=== PATIENT | male | born 1965 | race Caucasian/White ===

== ENCOUNTER 2019-04-23 11:47 | Emergency (ER) | payer SELFPAY ==
[~2019-04-23] VITALS: Ht 177.8 cm; Wt 115.2 kg
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
--- NOTE | 2019-04-23 12:07 | ED Back Pain ---
General Stated Complaint: LEG/GROIN PAIN Source of Information: Patient Exam Limitations: No Limitations (CARITO SOLORZANO) History of Present Illness Date Seen by Provider: Apr 23, 2019 Time Seen by Provider: 12:00 Initial Comments Patient presents with his with chief complaint of one and a half hours of 9.5 out of 10 pain in his left flank radiating down into his left lower quadrant abdomen/pelvis and left groin and left testicle. He's never had kidney stones before. He has no pressure to urinate, dysuria earlier today. Bowels are moving normally. No history of abdominal surgeries. Doesn't history of bleeding gastric ulcers. Has a history of bipolar on Depakote and Lyrica. Takes ibuprofen 800 mg twice a day for chronic back pain and had his last dose at 0 700 today. No nausea vomiting fevers chills. (CARITO SOLORZANO) Allergies and Home Medications Allergies Coded Allergies: No Known Drug Allergies (Unverified , 04/23/19) Patient Home Medication List Home Medication List Reviewed: Yes (CARITO SOLORZANO) Review of Systems Constitutional: No chills, No diaphoresis, No fever EENTM: No ear discharge, No ear pain Respiratory: No cough, No short of breath Cardiovascular: No chest pain, No edema Gastrointestinal: see HPI, abdominal pain; No constipation, No diarrhea, No nausea Genitourinary: No discharge, No dysuria (CARITO SOLORZANO) Past Qrjzlrm-Pcqbry-Yyczvj Hx Patient Social History Alcohol Use: Denies Use Recreational Drug Use: No (CARITO SOLORZANO) Physical Exam Vital Signs Vital Signs - First Documented 04/23/19 11:53 Temp 97.0 Pulse 71 Resp 22 B/P (MAP) 151/93 (112) Pulse Ox 98 O2 Delivery Room Air (COBY NASCIMENTO MD) Vital Signs Capillary Refill : (CARITO SOLORZANO) Height, Weight, BMI Height: '" Weight: lbs. oz. kg; BMI Method: General Appearance: WD/WN, Moderate Distress HEENT: PERRL/EOMI, Normal ENT Inspection, Pharynx Normal, Moist Mucous Membranes Neck: Full Range of Motion, Non Tender Cardiovascular: Regular Rate, Rhythm, No Edema, Normal Peripheral Pulses Respiratory: Chest Non Tender, Lungs Clear, Normal Breath Sounds, No Accessory Muscle Use, No Respiratory Distress Gastrointestinal: Normal Bowel Sounds, Non Tender, Soft Genital/Rectal: Normal Genital Exam, Other (marginal palpable herniation in that left inguinal canal but nontender. The vas deferens on the left side are tender to palpation. There is no testicular swelling, erythema.) Extremity: Normal Capillary Refill, Normal Inspection Neurologic/Psychiatric: Alert, Oriented x3, No Motor/Sensory Deficits Skin: Normal Color, Warm/Dry (RASHAD,CARITO J) Back: Muscle Spasm, Other (tenderness at the left SI joint. Muscle spasm noted to left lateral lumbar region. Point tenderness reproduces pain.) (COBY NASCIMENTO MD) Progress/Results/Core Measures Results/Orders Lab Results Laboratory Tests Test 04/23/19 12:00 04/23/19 12:50 04/23/19 14:28 Range/Units White Blood Count 9.1 4.3-11.0 10^3/uL Red Blood Count 5.10 4.35-5.85 10^6/uL Hemoglobin 15.0 13.3-17.7 G/DL Hematocrit 45 40-54 % Mean Corpuscular Volume 87 80-99 FL Mean Corpuscular Hemoglobin 29 25-34 PG Mean Corpuscular Hemoglobin Concent 34 32-36 G/DL Red Cell Distribution Width 13.5 10.0-14.5 % Platelet Count 176 130-400 10^3/uL Mean Platelet Volume 9.0 7.4-10.4 FL Neutrophils (%) (Auto) 65 42-75 % Lymphocytes (%) (Auto) 20 12-44 % Monocytes (%) (Auto) 10 0-12 % Eosinophils (%) (Auto) 4 0-10 % Basophils (%) (Auto) 0 0-10 % Neutrophils # (Auto) 5.9 1.8-7.8 X 10^3 Lymphocytes # (Auto) 1.8 1.0-4.0 X 10^3 Monocytes # (Auto) 0.9 0.0-1.0 X 10^3 Eosinophils # (Auto) 0.4 H 0.0-0.3 10^3/uL Basophils # (Auto) 0.0 0.0-0.1 10^3/uL Sodium Level 137 135-145 MMOL/L Potassium Level 4.6 3.6-5.0 MMOL/L Chloride Level 95 L 98-107 MMOL/L Carbon Dioxide Level 28 21-32 MMOL/L Anion Gap 14 5-14 MMOL/L Blood Urea Nitrogen 7 7-18 MG/DL Creatinine 0.85 0.60-1.30 MG/DL Estimat Glomerular Filtration Rate > 60 BUN/Creatinine Ratio 8 Glucose Level 102 70-105 MG/DL Calcium Level 9.2 8.5-10.1 MG/DL Corrected Calcium 8.5-10.1 MG/DL Total Bilirubin 0.5 0.1-1.0 MG/DL Aspartate Amino Transf (AST/SGOT) 16 5-34 U/L Alanine Aminotransferase (ALT/SGPT) 17 0-55 U/L Alkaline Phosphatase 78 40-136 U/L Total Protein 7.2 6.4-8.2 GM/DL Albumin 4.6 H 3.2-4.5 GM/DL Urine Color YELLOW Urine Clarity CLEAR Urine pH 8.0 5-9 Urine Specific [place] 1.010 L 1.016-1.022 Urine Protein 1+ H NEGATIVE Urine Glucose (UA) 2+ H NEGATIVE Urine Ketones NEGATIVE NEGATIVE Urine Nitrite NEGATIVE NEGATIVE Urine Bilirubin NEGATIVE NEGATIVE Urine Urobilinogen 0.2 NORMAL MG/DL Urine Leukocyte Esterase NEGATIVE NEGATIVE Urine RBC (Auto) NEGATIVE NEGATIVE Urine RBC NONE /HPF Urine WBC 0-2 /HPF Urine Squamous Epithelial Cells 0-2 /HPF Urine Crystals NONE /LPF Urine Bacteria NEGATIVE /HPF Urine Casts NONE /LPF Urine Mucus NONE /LPF Urine Culture Indicated NO Glucometer 95 70-110 MG/DL (COBY NASCIMENTO MD) My Orders Orders - COBY NASCIMENTO MD Scrotum (Testicle) [id number] (04/23/19 16:27) Prednisone Tablet (Deltasone Tablet) (04/23/19 17:30) Hydrocodone/Apap 7.5/325 Tab (Lortab 7. (04/23/19 17:30) (COBY NASCIMENTO MD) Medications Given in ED Current Medications Medications Dose Ordered Sig/Niyah Route Start Time Stop Time Status Last Admin Dose Admin Fentanyl Citrate 50 mcg ONCE ONCE IVP 04/23/19 13:00 04/23/19 13:01 DC 04/23/19 13:02 50 MCG Ketorolac Tromethamine 30 mg ONCE ONCE IVP 04/23/19 12:15 04/23/19 12:16 DC 04/23/19 12:22 30 MG (COBY NASCIMENTO MD) Vital Signs/I&O 04/23/19 04/23/19 04/23/19 04/23/19 11:53 12:22 13:02 15:05 Temp 97.0 97.0 97.0 97.0 Pulse 71 68 Resp 22 20 B/P (MAP) 151/93 (112) 153/79 (103) Pulse Ox 98 93 O2 Delivery Room Air Room Air 04/23/19 16:22 Temp 98.0 Pulse 70 Resp 18 B/P (MAP) 149/99 (116) Pulse Ox 92 (COBY NASCIMENTO MD) Progress Progress Note #1: Time: 12:54 Progress Note Concern for kidney stone versus other. We'll obtain some labs, urinalysis and get a CT scan of the abdomen kidney stone protocol. If we don't see a kidney stone we'll consider getting an ultrasound of the testicle to rule out a torsion etc. 30 mg Toradol did give him significant pain relief from 9.5 out of 10 down to 7 out of 10. He would still like something for pain. No nausea. Fentanyl 50 g IV. Progress Note #2: Time: 14:20 Progress Note The patient's pain is much improved however it is still there and he still does not have a diagnosis. Orchitis versus a possible torsion. We don't have ultrasound available so were going to plan to do an ER to ER transfer to [place] to have ultrasound rule out torsion. (CARITO SOLORZANO) Progress Note : Progress Note 1700: I have seen and evaluated the patient. Ultrasound of the scrotum ordered and does not show any torsion or epididymitis. On reevaluation of the patient, he is point tender over left SI joint. Given negative CT scan for kidney stones and otherwise negative evaluation, this may be lumbar radiculopathy and we will treat as such. Prednisone 60 mg by mouth and hydrocodone 7.5/325 one tab by mouth given. Patient has no saddle anesthesia and he is not incontinent of urine or stool. No weakness noted to the lower extremities and otherwise no red flags for low back problems. 1741: Discharged home with return precautions. Patient verbalize understanding instructions and agreement with plan. (COBY NASCIMENTO MD) Diagnostic Imaging Diagonstic Imaging: CT (kidney stone protocol noncontrast) Plain Films/CT/US/NM/MRI: abdomen, pelvis Reviewed: Reviewed by Me (CARITO SOLORZANO) Diagonstic Imaging: Ultrasound Plain Films/CT/US/NM/MRI: other Comments [facility], [place] NAME: LLUVIA SCHAEFER REC#: [id number] PT STATUS: REG ER : 1965 PHYSICIAN: COBY NASCIMENTO MD ADMIT DATE: 04/23/19/ER Draft Date of Exam:04/23/19 US SCROTUM (Testicle) [id number] INDICATION: Left testicle, leg and groin pain. TECHNIQUE: Real-time grayscale sonographic imaging and color vascular evaluation of both testicles was performed. CORRELATION STUDY: None FINDINGS: RIGHT testicle measures 3.4 x 1.8 x 2.8 cm. LEFT testicle measures 4.0 x 3.5 x 3.3 cm. The testicles appear normal in echogenicity. No focal testicular mass demonstrated. There is vascular flow to the testicles. Small right epididymal cyst present largest at 3 mm maximum size. Small bilateral hydroceles. No definitive evidence for underlying inguinal hernia. IMPRESSION: 1. Unremarkable scrotal ultrasound examination. Small bilateral hydroceles. Dictated on workstation # [id number] Dict: 04/23/19 1710 Trans: 04/23/19 1712 DO [id number] Interpreted by: ELIZABETH GONZALEZ DO Electronically signed by: (COBY NASCIMENTO MD) Departure Impression Primary Impression: Left testicular pain Additional Impression: Acute left lumbar radiculopathy Disposition: 01 HOME, SELF-CARE Condition: Stable Transfer Time Spoke to Accepting Phy: 14:30 Transfer Progress Notes Called left a message to speak with the ER physician at 1420. Dr. Nascimento accepts the patient for ER to ER transfer for ultrasound scrotum. Transfer Facility: [facility] [place] [facility] [place], [place] Method of Transfer: Private Vehicle (CARITO SOLORZANO) Departure-Patient Inst. Decision time for Depature: 17:43 (COBY NASCIMENTO MD) Referrals: NO,LOCAL PHYSICIAN (PCP/Family) Primary Care Physician Patient Instructions: Lumbar Muscle Strain (DC), Radiculopathy (DC) Add. Discharge Instructions: Your evaluation thus far did not show any significant abnormalities. We do believe that you may have radiating pain from the low back. Take medications as directed. Minimize use of narcotic pain medicine. You may take acetaminophen/Tylenol 1000 mg every 6 hours as needed for pain if you're not taking the prescribed pain medicine. Do not take both at the same time as they both have acetaminophen in them. Do not exceed 4000 mg of acetaminophen and 24 period. Continue ibuprofen 800 mg every 8 hours as needed for pain. You may use [id number] Icy Hot with lidocaine patches, Aspercreme with lidocaine patches, Salonpas with lidocaine patches for similar items to area of concern per package directions. Return for worse pain, weakness, difficulty with walking or going to the bathroom, numbness between your legs or other concerns as needed. Follow-up with your doctor this week or early next week for recheck and further evaluation if not improving and she may need further referral to back specialist and/or other evaluation. Scripts Prednisone (Prednisone) 20 Mg Tab 40 MG PO DAILY, #12 TAB 0 Refills Prov: COBY NASCIMENTO MD 04/23/19 Hydrocodone Bit/Acetaminophen (Hydrocodone/Acetaminophen 5/325mg Tablet) 1 Tab Tab 1 EACH PO Q6H PRN for PAIN-MODERATE MDD 10 for 3 Days, #12 TAB 0 Refills Prov: COBY NASCIMENTO MD 04/23/19 CARITO SOLORZANO Apr 23, 2019 12:07 COBY NASCIMENTO MD Apr 23, 2019 17:47
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
--- OUTSIDE RECORDS SUMMARY | 2019-04-23 12:10 | XMS REPORT ---
Author Author KUN ESCALANTE Organization [facility] Address [address] [place] [address] Care Team Providers Care Slag Worker Name Role Phone KUN ESCALANTE Unavailable PROBLEMS Type Condition ICD9-CM Code [id number] Code Onset Dates Condition Status SNOMED Code Problem Muscle pain M79.1 Active 69183718 Problem Lumbago with sciatica, right side M54.41 Active 404450982 Problem Neuropathy G62.9 Active 696306918 Problem Type 2 diabetes mellitus with complication E11.8 Active 24224507 Problem Hypertriglyceridemia E78.1 Active 043983775 Problem Bipolar 1 disorder F31.9 Active [id number] ALLERGIES No Information ENCOUNTERS Encounter Location Date Diagnosis [facility] [id number] [place] [address] May, [facility] [id number] [place] [address] May, Radiculopathy of arm M54.10 [facility] [id number] [place] [address] May, [facility] [id number] [place] [address] May, [facility] [id number] [place] [phone] May, Radiculopathy of arm M54.10 [facility] [id number] [place] [address] Apr, Radiculopathy of arm M54.10 [facility] [address] [address] March, Radiculopathy of arm M54.10 [facility] [id number] [address] March, Radiculopathy of arm M54.10 [facility] [id number] [place] [address] March, Radiculopathy of arm M54.10 [facility] [id number] [place] [address] March, Type 2 diabetes mellitus with complication E11.8 ; Radiculopathy of arm M54.10 and Muscle pain M79.1 [facility] [id number] [place] [address] Feb, Muscle pain M79.1 [facility] [id number] [place] [address] Jan, Type 2 diabetes mellitus with complication E11.8 [facility] [id number] [place] [address] Jan, [facility] [id number] [place] [address] Dec, Muscle pain M79.1 [facility] [id number] [place] [address] Nov, Muscle pain M79.1 and Acute pain of right shoulder M25.511 [facility] [id number] [place] [address] Nov, [facility] [id number] [place] [address] Nov, [facility] [id number] [place] [address] Nov, Type 2 diabetes mellitus with complication E11.8 [facility] [id number] [place] [address] Nov, Impingement syndrome of left shoulder M75.42 and Impingement syndrome of right shoulder M75.41 [address] [place] [address] [address] Oct, Type 2 diabetes mellitus with complication E11.8 ; Acute pain of right shoulder M25.511 ; Abscess of finger of right hand L02.511 and Umbilical hernia without obstruction and without gangrene K42.9 [facility] [id number] [place] [address] Oct, [facility] [id number] [place] [address] Oct, Mucoid otitis media, unspecified chronicity, unspecified laterality H65.90 and Abscess of finger of right hand L02.511 [place] [id number] [place] [address] Oct, [place] [id number] [place] [phone] Sep, [place] [id number] [place] [address] Aug, [place] [id number] [place] [address] 14 Jul, 2017 Sprain of right acromioclavicular ligament, initial encounter S43.51XA ; Impingement syndrome of left shoulder M75.42 and Impingement syndrome of right shoulder M75.41 [place] [id number] [place] [address] 14 Jul, 2017 Type 2 diabetes mellitus with complication E11.8 [place] [id number] [place] [phone] Jun, [place] [id number] [place] [address] Jun, Type 2 diabetes mellitus with complication E11.8 ; Lumbago with sciatica, right side M54.41 ; 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 and Pain in left shoulder M25.512 [facility] [address] [address] May, [facility] [id number] [place] [address] May, [facility] [id number] [place] [address] Apr, Lumbago with sciatica, right side M54.41 and Neck pain on left side M54.2 [facility] [id number] [place] [address] Apr, [facility] [id number] [place] [address] Apr, [facility] [id number] [place] [phone] March, [facility] [id number] [place] [address] March, [facility] [id number] [place] [address] Feb, Acute pain of right shoulder M25.511 [facility] [id number] [place] [address] Feb, [facility] [address] [address] Feb, [facility] [id number] [place] [address] Feb, Type 2 diabetes mellitus with complication E11.8 ; Neuropathy G62.9 and Acute pain of right shoulder M25.511 [facility] [id number] [address] Dec, Type 2 diabetes mellitus with complication E11.8 [facility] [address] [address] Nov, [facility] [id number] [place] [phone] Oct, 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 [place] [id number] [place] [address] Oct, Type 2 diabetes mellitus with complication E11.8 [place] [id number] [place] [address] Sep, Type 2 diabetes mellitus with complication E11.8 ; Acute pain of right shoulder M25.511 and Prostate cancer screening Z12.5 [place] [id number] [place] [address] Sep, [place] [id number] [place] [address] Jun, [place] [id number] [place] [address] Jun, Muscle tension headache G44.209 and Bruxism F45.8 [place] [id number] [place] [address] May, Type 2 diabetes mellitus with complication E11.8 ; Erectile dysfunction, unspecified erectile dysfunction type N52.9 and Neuropathy G62.9 [place] [id number] [place] [address] Feb, [place] [id number] [place] [phone] Feb, Type 2 diabetes mellitus with complication E11.8 [facility] [address] [place] [address] Dec, [place] [id number] [place] [phone] Dec, Type 2 diabetes mellitus with complication E11.8 [place] [id number] [place] [phone] Nov, Nausea and vomiting, unspecified intactability, vomiting of unspecified type R11.2 [facility] [id number] [place] [phone] Oct, Neuropathy G62.9 and Type 2 diabetes mellitus with complication E11.8 [facility] [id number] [place] [phone] Sep, [facility] [id number] [place] [phone] Sep, [facility] [id number] [place] [address] Sep, Diabetes E11.9 [facility] [id number] [place] [address] Sep, [facility] [id number] [place] [phone] Jul, [facility] [id number] [place] [address] Jun, [facility] [id number] [place] [id number] Jun, Secondary diabetes mellitus with neurological manifestations, not stated as uncontrolled, or unspecified 249.60 ; Other chronic pain 338.29 and Puncture wound 879.8 [facility] [address] [place] [phone] May, [facility] [id number] [place] [phone] Apr, [facility] [id number] [place] [phone] March, [facility] [id number] [place] [phone] Feb, [facility] [id number] [place] [phone] Feb, [facility] [id number] [place] [phone] Jan, [facility] [place] [facility] [address] [id number] [place] [address] Jan, [facility] [place] [facility] [address] [id number] [place] [address] Jan, [facility] [place] [facility] [address] [id number] [place] [address] Jan, [facility] [place] [facility] [address] [id number] [place] [address] Jan, [facility] [place] [facility] [address] [id number] [place] [address] Jan, [facility] [place] [facility] [address] [id number] [place] [address] Jan, [facility] [place] [facility] [address] [id number] [place] [address] Jan, [facility] [place] [facility] [address] [id number] [place] [address] Dec, [facility] [place] [facility] [address] [id number] [place] [address] Dec, [facility] [place] [facility] [address] [id number] [place] [address] Nov, [facility] [place] [facility] [address] [id number] [place] [address] Nov, [facility] [place] [facility] [address] [id number] [place] [address] Nov, [facility] [place] [facility] [address] [id number] [place] [address] Nov, [facility] [place] [facility] [address] [id number] [place] [address] Nov, [facility] [place] [facility] [address] [id number] [place] [address] Nov, [facility] [place] [facility] [address] [id number] [address] Oct, [facility] [place] [facility] [address] [id number] [place] [address] Oct, [facility] [place] [facility] [address] [id number] [place] [address] Oct, [facility] [place] [facility] [address] [id number] [place] [address] Oct, [facility] [place] [facility] [address] [id number] [place] [address] Oct, [facility] [place] [facility] [address] [id number] [place] [address] Oct, [facility] [place] [facility] [address] [id number] [place] [address] Oct, [facility] [place] [facility] [address] [id number] [place] [address] Oct, [facility] [place] [facility] [address] [id number] [place] [address] Oct, [facility] [place] [facility] [address] [id number] [place] [address] Sep, [facility] [place] [facility] [address] [id number] [place] [address] Sep, [facility] [place] [facility] [address] [id number] [place] [address] Sep, [facility] [place] [facility] [address] [id number] [place] [address] Sep, [facility] [place] [facility] [address] [id number] [place] [address] Sep, [facility] [place] [facility] [address] [id number] [place] [address] Sep, [facility] [place] [facility] [address] [id number] [place] [address] Sep, [facility] [place] [facility] [address] [id number] [place] [address] Aug, [facility] [place] [facility] [address] [id number] [place] [address] Aug, [facility] [place] [facility] [address] [id number] [place] [address] 16 Aug, 2014 [facility] [place] [facility] [address] [id number] [place] [address] 16 Aug, 2014 [facility] [place] [facility] [address] [id number] [place] [address] 14 Aug, 2014 [facility] [place] [facility] [address] [id number] [place] [address] 14 Aug, 2014 [facility] [place] [facility] [address] [id number] [place] [address] 26 Sep, 2013 [facility] [place] [facility] [address] [id number] [place] [address] 25 Sep, 2013 [facility] [place] [facility] [address] [id number] [place] [address] 25 Sep, 2013 [facility] [place] [facility] [address] [id number] [place] [address] 25 Sep, 2013 [facility] [place] [facility] [address] [id number] [place] [address] 25 Sep, 2013 [facility] [place] [facility] [address] [id number] [place] [address] 19 Sep, 2013 [facility] [place] [facility] [address] [id number] [place] [address] 16 Sep, 2013 [facility] [place] [facility] [address] [id number] [place] [address] 16 Sep, 2013 [facility] [place] [facility] [address] [id number] [place] [address] 08 Sep, 2013 [facility] [place] [facility] [address] [id number] [place] [address] Jul, [facility] [place] [facility] [address] [id number] [place] [address] Jun, [facility] [place] [facility] [address] [id number] [place] [address] Jun, [facility] [place] [facility] [address] [id number] [place] [address] Jun, [facility] [place] [facility] [address] [id number] [place] [address] Jun, [facility] [place] [facility] [address] [id number] [place] [address] Jun, [facility] [place] [facility] [address] [id number] [place] [address] Jun, [facility] [place] [facility] [address] [id number] [place] [address] Jun, [facility] [place] [facility] [address] [id number] [place] [address] Jun, [facility] [place] [facility] [address] [id number] [place] [address] May, [facility] [place] [facility] [address] [id number] [place] [address] May, [facility] [place] [facility] [address] [id number] [place] [address] May, [facility] [place] [facility] [address] [id number] [place] [address] May, [facility] [place] [facility] [address] [id number] [place] [address] May, [facility] [place] [facility] [address] [id number] [place] [address] May, [facility] [place] [facility] [address] [id number] [place] [address] May, [facility] [place] [facility] [address] [id number] [place] [address] May, [facility] [place] [facility] [address] [id number] [place] [address] May, [facility] [place] [facility] [address] [id number] [place] [address] May, [facility] [place] [facility] [address] [id number] [place] [address] May, [facility] [place] [facility] [address] [id number] [place] [address] May, [facility] [place] [facility] [address] [id number] [place] [address] May, [facility] [place] [facility] [address] [id number] [place] [address] Apr, [facility] [place] [facility] [address] [id number] [place] [address] Apr, [facility] [place] [facility] [address] [id number] [place] [address] Apr, [facility] [place] [facility] [address] [id number] [place] [address] Apr, [facility] [place] [facility] [address] [id number] [place] [address] Apr, [facility] [place] [facility] [address] [id number] [place] [address] Apr, [facility] [place] [facility] [address] [id number] [place] [address] March, [facility] [place] [facility] [address] [id number] [place] [address] March, [facility] [place] [facility] [address] [id number] [place] [address] March, [facility] [place] [facility] [address] [id number] [place] [address] Feb, [facility] [place] [facility] [address] [id number] [place] [address] 24 Feb, 2014 [facility] [place] [facility] [address] [id number] [place] [address] Feb, [facility] [place] [facility] [address] [id number] [place] [address] Feb, [facility] [place] [facility] [address] [id number] [place] [address] Feb, [facility] [place] [facility] [address] [id number] [place] [address] Feb, [facility] [place] [facility] [address] [id number] [place] [address] Feb, [facility] [place] [facility] [address] [id number] [place] [address] Feb, [facility] [place] [facility] [address] [id number] [place] [address] Feb, [facility] [place] [facility] [address] [id number] [place] [address] Feb, [facility] [place] [facility] [address] [id number] [place] [address] Feb, [facility] [place] [facility] [address] [id number] [place] [address] Jan, [facility] [place] [facility] [address] [id number] [place] [address] Jan, [facility] [place] [facility] [address] [id number] [place] [address] Jan, [facility] [place] [facility] [address] [id number] [place] [address] Jan, [facility] [place] [facility] [address] [id number] [place] [address] Jan, [facility] [place] [facility] [address] [id number] [place] [address] Jan, [facility] [address] [id number] [place] [address] Dec, [facility] [place] [facility] [address] [id number] [place] [address] Dec, [facility] [place] [facility] [address] [id number] [place] [address] Dec, [facility] [place] [facility] [address] [id number] [place] [address] Dec, [facility] [place] [facility] [address] [id number] [place] [address] Nov, [facility] [place] [facility] [address] [id number] [place] [address] Nov, [facility] [place] [facility] [address] [id number] [place] [address] Nov, [facility] [place] [facility] [address] [id number] [place] [address] Nov, [facility] [place] [facility] [address] [id number] [place] [address] Nov, [facility] [place] [facility] [address] [id number] [place] [address] Nov, [facility] [place] [facility] [address] [id number] [place] [address] Oct, [facility] [place] [facility] [address] [id number] [place] [address] Oct, [facility] [place] [facility] [address] [id number] [place] [address] Oct, [facility] [place] [facility] [address] [id number] [place] [address] Oct, [facility] [place] [facility] [address] [id number] [place] [address] Oct, [facility] [place] [facility] [address] [id number] [place] [address] Oct, [facility] [place] [facility] [address] [id number] [place] [address] Sep, [facility] [place] [facility] [address] [id number] [place] [address] Sep, [facility] [place] [facility] [address] [id number] [place] [address] Sep, [facility] [place] [facility] [address] [id number] [place] [address] Sep, [facility] [place] [facility] [address] [id number] [place] [address] Sep, [facility] [place] [facility] [address] [id number] [place] [address] Sep, [facility] [place] [facility] [address] [id number] [place] [address] Aug, [facility] [place] [facility] [address] [id number] [place] [address] Aug, [facility] [place] [facility] [address] [id number] [place] [address] Aug, [facility] [place] [facility] [address] [id number] [place] [address] Aug, [facility] [place] [facility] [address] [id number] [place] [address] Jul, [facility] [place] [facility] [address] [id number] [place] [address] Jul, [facility] [place] [facility] [address] [id number] [place] [address] Jun, [facility] [place] [facility] [address] [id number] [place] [address] Jun, [facility] [place] [facility] [address] [id number] [place] [address] May, [facility] [address] [id number] [place] [address] May, [facility] [place] [facility] [address] [id number] [place] [address] May, [facility] [place] [facility] [address] [id number] [place] [address] May, [facility] [place] [facility] [address] [id number] [place] [address] May, [facility] [address] [id number] [place] [address] May, [facility] [place] [facility] [address] [id number] [place] [address] Apr, [facility] [place] [facility] [address] [id number] [place] [address] Apr, [facility] [place] [facility] [address] [id number] [place] [address] Apr, [facility] [place] [facility] [address] [id number] [place] [address] Apr, [facility] [place] [facility] [address] [id number] [place] [address] March, [facility] [place] [facility] [address] [id number] [place] [address] March, [facility] [place] [facility] [address] [id number] [place] [address] March, [facility] [place] [facility] [address] [id number] [place] [address] Feb, [facility] [place] [facility] [address] [id number] [place] [address] Feb, [facility] [place] [facility] [address] [id number] [place] [address] Jan, [facility] [place] [facility] [address] [id number] [place] [address] Dec, [facility] [address] [id number] [place] [address] Dec, [facility] [address] [id number] [place] [address] Dec, [facility] [address] [id number] [place] [address] Dec, [facility] [address] [id number] [place] [address] Dec, [facility] [address] [id number] [place] [address] Nov, [facility] [address] [id number] [place] [address] Nov, [facility] [address] [facility] [id number] [place] [address] Nov, [facility] [address] [id number] [place] [address] Nov, [facility] [address] [id number] [place] [address] Nov, [facility] [address] [facility] [id number] [place] [address] Oct, [facility] [address] [id number] [place] [address] Oct, [facility] [address] [id number] [place] [address] Oct, [facility] [address] [id number] [place] [address] Oct, [facility] [address] [id number] [place] [address] Sep, [facility] [address] [id number] [place] [address] Sep, [facility] [place] [facility] [address] [id number] [place] [address] Sep, [facility] [place] [facility] [address] [id number] [place] [address] Sep, [facility] [place] [facility] [address] [facility] [id number] [place] [address] Sep, [facility] [place] [facility] [address] [id number] [place] [address] Sep, [facility] [place] [facility] [address] [id number] [place] [address] Sep, [facility] [place] [facility] [address] [id number] [place] [address] Sep, [facility] [place] [facility] [address] [facility] [id number] [place] [address] Sep, [facility] [place] [facility] [address] [facility] [id number] [place] [address] Sep, [facility] [place] [facility] [address] [facility] [id number] [place] [address] Aug, [facility] [place] [facility] [address] [facility] [id number] [place] [address] Aug, [facility] [place] [facility] [address] [facility] [id number] [place] [address] Aug, [facility] [place] [facility] [address] [facility] [id number] [place] [address] Aug, [facility] [place] [facility] [address] [facility] [id number] [place] [address] Aug, [facility] [place] [facility] [address] [facility] [id number] [place] [address] Aug, [facility] [place] [facility] [address] [facility] [id number] [place] [address] Jul, [facility] [place] [facility] [address] [facility] [id number] [place] [address] Jun, [facility] [address] [id number] [place] [address] Apr, [facility] [place] [facility] [address] [id number] [place] [address] Apr, [facility] [place] [facility] [address] [id number] [place] [address] Apr, [facility] [place] [facility] [address] [id number] [place] [address] Apr, [facility] [place] [facility] [address] [id number] [place] [address] March, [facility] [place] [facility] [address] [id number] [place] [address] March, [facility] [address] [id number] [place] [address] March, [facility] [place] [facility] [address] [id number] [place] [address] March, [facility] [place] [facility] [address] [id number] [place] [address] March, [facility] [place] [facility] [address] [facility] [id number] [place] [address] Feb, [facility] [place] [facility] [address] [id number] [place] [address] Feb, [facility] [place] [facility] [address] [id number] [place] [address] Feb, [facility] [place] [facility] [address] [id number] [place] [address] Feb, [facility] [place] [facility] [address] [id number] [place] [address] Jan, [facility] [place] [facility] [address] [facility] [id number] [place] [address] Jan, [facility] [place] [facility] [id number] [address] 05 Jan, 2012 [facility] [id number] [address] 28 Dec, 2011 [facility] [address] [facility] [id number] [place] [address] 15 Dec, 2011 [facility] [id number] [address] 14 Dec, 2011 [facility] [address] [facility] [id number] [place] [address] Dec, [facility] [id number] [place] [address], [place] [address] Dec, [facility] [id number] [place] [address] Nov, [facility] [id number] [place] [address] Nov, [facility] [id number] [place] [address] Nov, [facility] [id number] [place] [address] Oct, [facility] [id number] [place] [address] Oct, [facility] [id number] [address] Oct, [facility] [id number] [address] Sep, [facility] [id number] [address] 13 Jul, 2011 [facility] [address] [id number] [address] 16 Apr, 2011 IMMUNIZATIONS No Known Immunizations [...]
--- OUTSIDE RECORDS SUMMARY | 2019-04-23 12:10 | XMS REPORT ---
Author Author KUN ESCALANTE Organization [facility] Address [address] [place] [address] Care Team Providers Care Complaint Supervisor Name Role Phone KUN ESCALANTE Unavailable PROBLEMS Type Condition ICD9-CM Code EGL40-MV Code Onset Dates Condition Status SNOMED Code Problem Muscle pain M79.1 Active 43768011 Problem Lumbago with sciatica, right side M54.41 Active 479243914 Problem Neuropathy G62.9 Active 134934295 Problem Type 2 diabetes mellitus with complication E11.8 Active 15038130 Problem Hypertriglyceridemia E78.1 Active 945391248 Problem Bipolar 1 disorder F31.9 Active [id number] ALLERGIES No Information ENCOUNTERS Encounter Location Date Diagnosis [facility] [id number] [place] [address] May, [facility] [id number] [place] [address] May, Radiculopathy of arm M54.10 [facility] [id number] [place] [address] May, [facility] [id number] [place] [address] May, [facility] [id number] [place] [address] May, Radiculopathy of arm M54.10 [facility] [id number] [place] [address] Apr, Radiculopathy of arm M54.10 [facility] [address] [address] March, Radiculopathy of arm M54.10 [facility] [id number] [address] March, Radiculopathy of arm M54.10 [facility] [id number] [place] [address] March, Radiculopathy of arm M54.10 [facility] [id number] [place] [address] March, Type 2 diabetes mellitus with complication E11.8 ; Radiculopathy of arm M54.10 and Muscle pain M79.1 [facility] [id number] [place] [address] Feb, Muscle pain M79.1 [facility] [id number] [place] [address] Jan, Type 2 diabetes mellitus with complication E11.8 [facility] [id number] [place] [address] Jan, [facility] [id number] [place] [address] Dec, Muscle pain M79.1 [facility] [id number] [place] [address] Nov, Muscle pain M79.1 and Acute pain of right shoulder M25.511 [facility] [id number] [place] [address] Nov, [facility] [id number] [place] [address] Nov, [facility] [id number] [place] [address] Nov, Type 2 diabetes mellitus with complication E11.8 [facility] [id number] [place] [address] Nov, Impingement syndrome of left shoulder M75.42 and Impingement syndrome of right shoulder M75.41 [address] [address] Oct, Type 2 diabetes mellitus with complication E11.8 ; Acute pain of right shoulder M25.511 ; Abscess of finger of right hand L02.511 and Umbilical hernia without obstruction and without gangrene K42.9 [facility] [id number] [place] [address] Oct, [facility] [id number] [place] [address] Oct, Mucoid otitis media, unspecified chronicity, unspecified laterality H65.90 and Abscess of finger of right hand L02.511 [facility] [facility] [id number] [place] [address] Oct, [facility] [id number] [place] [address] Sep, [facility] [id number] [place] [address] Aug, [facility] [facility] [id number] [place] [address] 14 Jul, 2017 Sprain of right acromioclavicular ligament, initial encounter S43.51XA ; Impingement syndrome of left shoulder M75.42 and Impingement syndrome of right shoulder M75.41 [place] [id number] [place] [address] 14 Jul, 2017 Type 2 diabetes mellitus with complication E11.8 [facility] [facility] [id number] [place] [address] Jun, [facility] [facility] [id number] [place] [address] Jun, Type 2 diabetes mellitus with complication E11.8 ; Lumbago with sciatica, right side M54.41 ; 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 and Pain in left shoulder M25.512 [facility] [address] [address] May, [facility] [id number] [place] [address] May, [facility] [id number] [place] [address] Apr, Lumbago with sciatica, right side M54.41 and Neck pain on left side M54.2 [facility] [id number] [place] [address] Apr, [facility] [id number] [place] [address] Apr, [facility] [id number] [place] [address] March, [facility] [id number] [place] [address] March, [facility] [id number] [place] [address] Feb, Acute pain of right shoulder M25.511 [facility] [address] [place] [address] Feb, [facility] [address] [address] Feb, [facility] [id number] [place] [address] Feb, Type 2 diabetes mellitus with complication E11.8 ; Neuropathy G62.9 and Acute pain of right shoulder M25.511 [facility] [id number] [address] Dec, Type 2 diabetes mellitus with complication E11.8 [facility] [address] [address] Nov, [facility] [id number] [place] [address] Oct, 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 [place] [id number] [place] [address] Oct, Type 2 diabetes mellitus with complication E11.8 [place] [id number] [place] [address] Sep, Type 2 diabetes mellitus with complication E11.8 ; Acute pain of right shoulder M25.511 and Prostate cancer screening Z12.5 [place] [id number] [place] [address] Sep, [place] [id number] [place] [address] Jun, [facility] [facility] [id number] [place] [address] Jun, Muscle tension headache G44.209 and Bruxism F45.8 [place] [address] [place] [address] May, Type 2 diabetes mellitus with complication E11.8 ; Erectile dysfunction, unspecified erectile dysfunction type N52.9 and Neuropathy G62.9 [place] [address] [place] [address] Feb, [place] [address] [place] [address] Feb, Type 2 diabetes mellitus with complication E11.8 [facility] [address] [place] [address] Dec, [place] [id number] [place] [address] Dec, Type 2 diabetes mellitus with complication E11.8 [place] [address] [place] [address] Nov, Nausea and vomiting, unspecified intactability, vomiting of unspecified type R11.2 [facility] [address] [place] [address] Oct, Neuropathy G62.9 and Type 2 diabetes mellitus with complication E11.8 [facility] [id number] [place] [address] Sep, [facility] [id number] [place] [address] Sep, [facility] [id number] [place] [address] Sep, Diabetes E11.9 [facility] [id number] [place] [address] Sep, [facility] [id number] [place] [address] Jul, [facility] [id number] [place] [address] Jun, [facility] [id number] [place] [address] Jun, Secondary diabetes mellitus with neurological manifestations, not stated as uncontrolled, or unspecified 249.60 ; Other chronic pain 338.29 and Puncture wound 879.8 [facility] [address] [place] [address] May, [facility] [id number] [place] [address] Apr, [facility] [id number] [place] [address] March, [facility] [id number] [place] [address] Feb, [facility] [id number] [place] [address] Feb, [facility] [id number] [place] [address] Jan, [facility] [place] [facility] [address] [id number] [place] [address] Jan, [facility] [place] [facility] [address] [id number] [place] [address] Jan, [facility] [place] [facility] [address] [id number] [place] [address] Jan, [facility] [place] [facility] [address] [id number] [place] [address] Jan, [facility] [place] [facility] [address] [id number] [place] [address] Jan, [facility] [place] [facility] [address] [id number] [place] [address] Jan, [facility] [place] [facility] [address] [id number] [place] [address] Jan, [facility] [place] [facility] [address] [id number] [place] [address] Dec, [facility] [place] [facility] [address] [id number] [place] [address] Dec, [facility] [place] [facility] [address] [id number] [place] [address] Nov, [facility] [place] [facility] [address] [id number] [place] [address] Nov, [facility] [place] [facility] [address] [id number] [place] [address] Nov, [facility] [place] [facility] [address] [id number] [place] [address] Nov, [facility] [place] [facility] [address] [id number] [place] [address] Nov, [facility] [place] [facility] [address] [id number] [place] [address] Nov, [facility] [place] [facility] [address] [id number], [place] [address] Oct, [facility] [place] [facility] [address] [id number] [place] [address] Oct, [facility] [place] [facility] [address] [id number] [place] [address] Oct, [facility] [place] [facility] [address] [id number] [place] [address] Oct, [facility] [place] [facility] [address] [id number] [place] [address] Oct, [facility] [place] [facility] [address] [id number] [place] [address] Oct, [facility] [place] [facility] [address] [id number] [place] [address] Oct, [facility] [place] [facility] [address] [id number] [place] [address] Oct, [facility] [place] [facility] [address] [id number] [place] [address] Oct, [facility] [place] [facility] [address] [id number] [place] [address] Sep, [facility] [place] [facility] [address] [id number] [place] [address] Sep, [facility] [place] [facility] [address] [id number] [address] Sep, [facility] [place] [facility] [address] [id number], [place] [address] Sep, [facility] [place] [facility] [address] [id number], [place] [address] Sep, [facility] [place] [facility] [address] [id number] [place] [address] Sep, [facility] [place] [facility] [address] [id number] [place] [address] Sep, [facility] [place] [facility] [address] [id number] [place] [address] Aug, [facility] [place] [facility] [address] [id number] [place] [address] Aug, [facility] [place] [facility] [address] [id number] [place] [address] 16 Aug, 2014 [facility] [place] [facility] [address] [id number] [place] [address] 16 Aug, 2014 [facility] [place] [facility] [address] [id number] [place] [address] 14 Aug, 2014 [facility] [place] [facility] [address] [id number] [place] [address] 14 Aug, 2014 [facility] [place] [facility] [address] [id number] [place] [address] 26 Sep, 2013 [facility] [place] [facility] [address] [id number] [place] [address] 25 Sep, 2013 [facility] [place] [facility] [address] [id number] [place] [address] 25 Sep, 2013 [facility] [place] [facility] [address] [id number] [place] [address] 25 Sep, 2013 [facility] [place] [facility] [address] [id number] [place] [address] 25 Sep, 2013 [facility] [place] [facility] [address] [id number] [place] [address] 19 Sep, 2013 [facility] [place] [facility] [address] [id number] [place] [address] 16 Sep, 2013 [facility] [place] [facility] [address] [id number] [place] [address] 16 Sep, 2013 [facility] [place] [facility] [address] [id number] [place] [address] 08 Sep, 2013 [facility] [place] [facility] [address] [id number] [place] [address] Jul, [facility] [place] [facility] [address] [id number] [place] [address] Jun, [facility] [place] [facility] [address] [id number] [place] [address] Jun, [facility] [place] [facility] [address] [id number] [place] [address] Jun, [facility] [place] [facility] [address] [id number] [place] [address] Jun, [facility] [place] [facility] [address] [id number] [place] [address] Jun, [facility] [place] [facility] [address] [id number] [place] [address] Jun, [facility] [place] [facility] [address] [id number] [place] [address] Jun, [facility] [place] [facility] [address] [id number] [place] [address] Jun, [facility] [place] [facility] [address] [id number] [place] [address] May, [facility] [place] [facility] [address] [id number] [place] [address] May, [facility] [place] [facility] [address] [id number] [place] [address] May, [facility] [place] [facility] [address] [id number] [place] [address] May, [facility] [place] [facility] [address] [id number] [place] [address] May, [facility] [place] [facility] [address] [id number] [place] [address] May, [facility] [place] [facility] [address] [id number] [place] [address] May, [facility] [place] [facility] [address] [id number] [place] [address] May, [facility] [place] [facility] [address] [id number] [place] [address] May, [facility] [place] [facility] [address] [id number] [place] [address] May, [facility] [place] [facility] [address] [id number] [place] [address] May, [facility] [place] [facility] [address] [id number] [place] [address] May, [facility] [place] [facility] [address] [id number] [place] [address] May, [facility] [place] [facility] [address] [id number] [place] [address] Apr, [facility] [place] [facility] [address] [id number] [place] [address] Apr, [facility] [place] [facility] [address] [id number] [place] [address] Apr, [facility] [place] [facility] [address] [id number] [place] [address] Apr, [facility] [place] [facility] [address] [id number] [place] [address] Apr, [facility] [place] [facility] [address] [id number] [place] [address] Apr, [facility] [place] [facility] [address] [id number] [place] [address] March, [facility] [place] [facility] [address] [id number] [place] [address] March, [facility] [place] [facility] [address] [id number] [place] [address] March, [facility] [place] [facility] [address] [id number] [place] [address] Feb, [facility] [place] [facility] [address] [id number] [place] [address] 24 Feb, 2014 [facility] [place] [facility] [address] [id number] [place] [address] Feb, [facility] [place] [facility] [address] [id number] [place] [address] Feb, [facility] [place] [facility] [address] [id number] [place] [address] Feb, [facility] [place] [facility] [address] [id number] [place] [address] Feb, [facility] [place] [facility] [address] [id number] [place] [address] Feb, [facility] [place] [facility] [address] [id number] [place] [address] Feb, [facility] [place] [facility] [address] [id number] [place] [address] Feb, [facility] [place] [facility] [address] [id number] [place] [address] Feb, [facility] [place] [facility] [address] [id number] [place] [address] Feb, [facility] [place] [facility] [address] [id number] [place] [address] Jan, [facility] [place] [facility] [address] [id number] [place] [address] Jan, [facility] [place] [facility] [address] [id number] [place] [address] Jan, [facility] [place] [facility] [address] [id number] [place] [address] Jan, [facility] [place] [facility] [address] [id number] [place] [address] Jan, [facility] [place] [facility] [address] [id number] [place] [address] Jan, [facility] [address] [id number] [place] [address] Dec, [facility] [place] [facility] [address] [id number] [place] [address] Dec, [facility] [place] [facility] [address] [id number] [place] [address] Dec, [facility] [place] [facility] [address] [id number] [place] [address] Dec, [facility] [place] [facility] [address] [id number] [place] [address] Nov, [facility] [place] [facility] [address] [id number] [place] [address] Nov, [facility] [place] [facility] [address] [id number] [place] [address] Nov, [facility] [place] [facility] [address] [id number] [place] [address] Nov, [facility] [place] [facility] [address] [id number] [place] [address] Nov, [facility] [place] [facility] [address] [id number] [place] [address] Nov, [facility] [place] [facility] [address] [id number], [place] [address] Oct, [facility] [place] [facility] [address] [id number] [place] [address] Oct, [facility] [place] [facility] [address] [id number] [place] [address] Oct, [facility] [place] [facility] [address] [id number] [place] [address] Oct, [facility] [place] [facility] [address] [id number] [place] [address] Oct, [facility] [place] [facility] [address] [id number] [place] [address] Oct, [facility] [place] [facility] [address] [id number] [place] [address] Sep, [facility] [place] [facility] [address] [id number] [place] [address] Sep, [facility] [place] [facility] [address] [id number] [place] [address] Sep, [facility] [place] [facility] [address] [id number] [place] [address] Sep, [facility] [place] [facility] [address] [id number] [place] [address] Sep, [facility] [place] [facility] [address] [id number] [place] [address] Sep, [facility] [place] [facility] [address] [id number] [place] [address] Aug, [facility] [place] [facility] [address] [id number] [place] [address] Aug, [facility] [place] [facility] [address] [id number] [place] [address] Aug, [facility] [place] [facility] [address] [id number] [place] [address] Aug, [facility] [place] [facility] [address] [id number] [place] [address] Jul, [facility] [place] [facility] [address] [id number] [place] [address] Jul, [facility] [place] [facility] [address] [id number] [place] [address] Jun, [facility] [place] [facility] [address] [id number] [place] [address] Jun, [facility] [place] [facility] [address] [id number] [place] [address] May, [facility] [address] [id number] [place] [address] May, [facility] [place] [facility] [address] [id number] [place] [address] May, [facility] [place] [facility] [address] [id number] [place] [address] May, [facility] [place] [facility] [address] [id number] [place] [address] May, [facility] [address] [id number] [place] [address] May, [facility] [place] [facility] [address] [id number] [place] [address] Apr, [facility] [place] [facility] [address] [id number] [place] [address] Apr, [facility] [place] [facility] [address] [id number] [place] [address] Apr, [facility] [place] [facility] [address] [id number] [place] [address] Apr, [facility] [place] [facility] [address] [id number] [place] [address] March, [facility] [place] [facility] [address] [id number] [place] [address] March, [facility] [place] [facility] [address] [id number], [place] [address] March, [facility] [place] [facility] [address] [id number] [place] [address] Feb, [facility] [place] [facility] [address] [id number] [place] [address] Feb, [facility] [place] [facility] [address] [id number] [place] [address] Jan, [facility] [place] [facility] [address] [id number] [place] [address] Dec, [facility] [address] [id number] [place] [address] Dec, [facility] [address] [id number] [place] [address] Dec, [facility] [address] [id number] [place] [address] Dec, [facility] [address] [id number] [place] [address] Dec, [facility] [address] [id number] [place] [address] Nov, [facility] [address] [id number] [place] [address] Nov, [facility] [address] [facility] [id number] [place] [address] Nov, [facility] [address] [id number] [place] [address] Nov, [facility] [address] [id number] [place] [address] Nov, [facility] [address] [facility] [id number] [place] [address] Oct, [facility] [address] [id number] [place] [address] Oct, [facility] [address] [id number] [place] [address] Oct, [facility] [address] [id number] [place] [address] Oct, [facility] [address] [id number] [place] [address] Sep, [facility] [address] [id number] [place] [address] Sep, [facility] [place] [facility] [address] [id number] [place] [address] Sep, [facility] [place] [facility] [address] [id number] [place] [address] Sep, [facility] [place] [facility] [address] [facility] [id number] [place] [address] Sep, [facility] [place] [facility] [address] [id number] [place] [address] Sep, [facility] [place] [facility] [address] [id number] [place] [address] Sep, [facility] [place] [facility] [address] [id number] [place] [address] Sep, [facility] [place] [facility] [address] [facility] [id number] [place] [address] Sep, [facility] [place] [facility] [address] [facility] [id number], [place] [address] Sep, [facility] [place] [facility] [address] [facility] [id number] [id number] Aug, [facility] [place] [facility] [address] [facility] [id number], [place] [address] Aug, [facility] [place] [facility] [address] [facility] [id number], [place] [address] Aug, [facility] [place] [facility] [address] [facility] [id number], [place] [address] Aug, [facility] [place] [facility] [address] [facility] [id number], [place] [address] Aug, [facility] [place] [facility] [address] [facility] [id number], [place] [address] Aug, [facility] [place] [facility] [address] [facility] [id number], [place] [address] Jul, [facility] [place] [facility] [address] [facility] [id number], [place] [address] Jun, [facility] [address] [id number] [place] [address] Apr, [facility] [place] [facility] [address] [id number] [place] [address] Apr, [facility] [place] [facility] [address] [id number] [place] [address] Apr, [facility] [place] [facility] [address] [id number] [place] [address] Apr, [facility] [place] [facility] [address] [id number] [place] [address] March, [facility] [place] [facility] [address] [id number] [place] [address] March, [facility] [address] [id number] [place] [address] March, [facility] [place] [facility] [address] [id number] [place] [address] March, [facility] [place] [facility] [address] [id number] [place] [address] March, [facility] [place] [facility] [address] [facility] [id number] [place] [address] Feb, [facility] [place] [facility] [address] [id number] [place] [address] Feb, [facility] [place] [facility] [address] [id number] [place] [address] Feb, [facility] [place] [facility] [address] [id number] [place] [address] Feb, [facility] [place] [facility] [address] [id number] [place] [address] Jan, [facility] [place] [facility] [address] [facility] [id number] [place] [address] Jan, [facility] [place] [facility] [id number] [address] 05 Jan, 2012 [facility] [id number] [address] 28 Dec, 2011 [facility] [id number], [place] [address] 15 Dec, 2011 [facility] [id number] [place] [address] 14 Dec, 2011 [facility] [address] [facility] [id number], [place] [address] Dec, [facility] [id number] [place] [address] Dec, [facility] [id number], [place] [address] Nov, [facility] [id number] [place] [address] Nov, [facility] [id number], [place] [address] Nov, [facility] [id number], [place] [address] Oct, [facility] [id number], [place] [address] Oct, [facility] [id number], [place] [address] Oct, [facility] [id number], [place] [address] Sep, [facility] [id number], [place] [address] 13 Jul, 2011 [facility] [id number], [place] [address] 16 Apr, 2011 IMMUNIZATIONS No Known Immunizations [...]
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
--- OUTSIDE RECORDS SUMMARY | 2019-04-23 12:13 | XMS REPORT ---
Author Author KUN ESCALANTE Organization [facility] Address [address] [place] [address] Care Team Providers Care Meter Calibrator Name Role Phone KUN ESCALANTE Unavailable PROBLEMS Type Condition ICD9-CM Code ICP20-OH Code Onset Dates Condition Status SNOMED Code Problem Muscle pain M79.1 Active 54094363 Problem Lumbago with sciatica, right side M54.41 Active 431097478 Problem Neuropathy G62.9 Active 631305727 Problem Type 2 diabetes mellitus with complication E11.8 Active 04938154 Problem Hypertriglyceridemia E78.1 Active 604473188 Problem Bipolar 1 disorder F31.9 Active [id number] ALLERGIES No Information ENCOUNTERS Encounter Location Date Diagnosis [facility] [id number] [place] [address] May, [facility] [id number] [place] [address] May, Radiculopathy of arm M54.10 [facility] [id number] [place] [address] May, [facility] [id number] [place] [address] May, [facility] [id number] [place] [address] May, Radiculopathy of arm M54.10 [facility] [id number] [place] [address] Apr, Radiculopathy of arm M54.10 [facility] [address] [address] March, Radiculopathy of arm M54.10 [facility] [id number] [address] March, Radiculopathy of arm M54.10 [facility] [id number] [place] [address] March, Radiculopathy of arm M54.10 [facility] [id number] [place] [address] March, Type 2 diabetes mellitus with complication E11.8 ; Radiculopathy of arm M54.10 and Muscle pain M79.1 [facility] [id number] [place] [address] Feb, Muscle pain M79.1 [facility] [id number] [place] [address] Jan, Type 2 diabetes mellitus with complication E11.8 [facility] [id number] [place] [address] Jan, [facility] [id number] [place] [address] Dec, Muscle pain M79.1 [facility] [id number] [place] [address] Nov, Muscle pain M79.1 and Acute pain of right shoulder M25.511 [facility] [id number] [place] [address] Nov, [facility] [id number] [place] [address] Nov, [facility] [id number] [place] [address] Nov, Type 2 diabetes mellitus with complication E11.8 [facility] [id number] [place] [address] Nov, Impingement syndrome of left shoulder M75.42 and Impingement syndrome of right shoulder M75.41 [facility] [address] [address] Oct, Type 2 diabetes mellitus with complication E11.8 ; Acute pain of right shoulder M25.511 ; Abscess of finger of right hand L02.511 and Umbilical hernia without obstruction and without gangrene K42.9 [facility] [id number] [place] [address] Oct, [facility] [id number] [place] [address] Oct, Mucoid otitis media, unspecified chronicity, unspecified laterality H65.90 and Abscess of finger of right hand L02.511 [facility] [id number] [place] [address] Oct, [facility] [id number] [place] [address] Sep, [facility] [id number] [place] [address] Aug, [facility] [id number] [place] [address] 14 Jul, 2017 Sprain of right acromioclavicular ligament, initial encounter S43.51XA ; Impingement syndrome of left shoulder M75.42 and Impingement syndrome of right shoulder M75.41 [facility] [id number] [place] [address] 14 Jul, 2017 Type 2 diabetes mellitus with complication E11.8 [facility] [id number] [place] [address] Jun, [facility] [id number] [place] [address] Jun, Type 2 diabetes mellitus with complication E11.8 ; Lumbago with sciatica, right side M54.41 ; 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 and Pain in left shoulder M25.512 [facility] [address], [place] [address] May, [facility] [id number] [place] [address] May, [facility] [id number] [place] [address] Apr, Lumbago with sciatica, right side M54.41 and Neck pain on left side M54.2 [facility] [id number] [place] [address] Apr, [facility] [id number] [place] [address] Apr, [facility] [id number] [place] [address] March, [facility] [id number] [place] [address] March, [facility] [id number] [place] [address] Feb, Acute pain of right shoulder M25.511 [facility] [address] [place] [address] Feb, [facility] [address] [address] Feb, [facility] [id number] [place] [address] Feb, Type 2 diabetes mellitus with complication E11.8 ; Neuropathy G62.9 and Acute pain of right shoulder M25.511 [facility] [id number] [address] Dec, Type 2 diabetes mellitus with complication E11.8 [facility] [address] [address] Nov, [facility] [id number] [place] [address] Oct, 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 [facility] [id number] [place] [address] Oct, Type 2 diabetes mellitus with complication E11.8 [facility] [id number] [place] [address] Sep, Type 2 diabetes mellitus with complication E11.8 ; Acute pain of right shoulder M25.511 and Prostate cancer screening Z12.5 [facility] [id number] [place] [address] Sep, [facility] [id number] [place] [address] Jun, [facility] [id number] [place] [address] Jun, Muscle tension headache G44.209 and Bruxism F45.8 [facility] [address] [place] [address] May, Type 2 diabetes mellitus with complication E11.8 ; Erectile dysfunction, unspecified erectile dysfunction type N52.9 and Neuropathy G62.9 [facility] [address] [place] [address] Feb, [facility] [address] [place] [address] Feb, Type 2 diabetes mellitus with complication E11.8 [facility] [address] [place] [address] Dec, [facility] [id number] [place] [address] Dec, Type 2 diabetes mellitus with complication E11.8 [facility] [address] [place] [address] Nov, Nausea and vomiting, unspecified intactability, vomiting of unspecified type R11.2 [facility] [address] [place] [address] Oct, Neuropathy G62.9 and Type 2 diabetes mellitus with complication E11.8 [facility] [id number] [place] [address] Sep, [facility] [id number] [place] [address] Sep, [facility] [id number] [place] [address] Sep, Diabetes E11.9 [facility] [id number] [place] [address] Sep, [facility] [id number] [place] [address] Jul, [facility] [id number] [place] [address] Jun, [facility] [id number] [place] [address] Jun, Secondary diabetes mellitus with neurological manifestations, not stated as uncontrolled, or unspecified 249.60 ; Other chronic pain 338.29 and Puncture wound 879.8 [facility] [address] [place] [address] May, [facility] [id number] [place] [address] Apr, [facility] [id number] [place] [address] March, [facility] [id number] [place] [address] Feb, [facility] [id number] [place] [address] Feb, [facility] [id number] [place] [address] Jan, [facility] [place] [facility] [address] [id number] [place] [address] Jan, [facility] [place] [facility] [address] [id number] [place] [address] Jan, [facility] [place] [facility] [address] [id number] [place] [address] Jan, [facility] [place] [facility] [address] [id number] [place] [address] Jan, [facility] [place] [facility] [address] [id number] [place] [address] Jan, [facility] [place] [facility] [address] [id number] [place] [address] Jan, [facility] [place] [facility] [address] [id number] [place] [address] Jan, [facility] [place] [facility] [address] [id number] [place] [address] Dec, [facility] [place] [facility] [address] [id number] [place] [address] Dec, [facility] [place] [facility] [address] [id number] [place] [address] Nov, [facility] [place] [facility] [address] [id number] [place] [address] Nov, [facility] [place] [facility] [address] [id number] [place] [address] Nov, [facility] [place] [facility] [address] [id number] [place] [address] Nov, [facility] [place] [facility] [address] [id number] [place] [address] Nov, [facility] [place] [facility] [address] [id number] [place] [address] Nov, [facility] [place] [facility] [address] [id number] [address] Oct, [facility] [place] [facility] [address] [id number] [place] [address] Oct, [facility] [place] [facility] [address] [id number] [place] [address] Oct, [facility] [place] [facility] [address] [id number] [place] [address] Oct, [facility] [place] [facility] [address] [id number] [place] [address] Oct, [facility] [place] [facility] [address] [id number] [place] [address] Oct, [facility] [place] [facility] [address] [id number] [place] [address] Oct, [facility] [place] [facility] [address] [id number] [place] [address] Oct, [facility] [place] [facility] [address] [id number] [place] [address] Oct, [facility] [place] [facility] [address] [id number] [place] [address] Sep, [facility] [place] [facility] [address] [id number] [place] [address] Sep, [facility] [place] [facility] [address] [id number], [place] [address] Sep, [facility] [place] [facility] [address] [id number], [place] [address] Sep, [facility] [place] [facility] [address] [id number], [place] [address] Sep, [facility] [place] [facility] [address] [id number] [place] [address] Sep, [facility] [place] [facility] [address] [id number] [place] [address] Sep, [facility] [place] [facility] [address] [id number] [place] [address] Aug, [facility] [place] [facility] [address] [id number] [place] [address] Aug, [facility] [place] [facility] [address] [id number] [place] [address] 16 Aug, 2014 [facility] [place] [facility] [address] [id number] [place] [address] 16 Aug, 2014 [facility] [place] [facility] [address] [id number] [place] [address] 14 Aug, 2014 [facility] [place] [facility] [address] [id number] [place] [address] 14 Aug, 2014 [facility] [place] [facility] [address] [id number] [place] [address] 26 Sep, 2013 [facility] [place] [facility] [address] [id number] [place] [address] 25 Sep, 2013 [facility] [place] [facility] [address] [id number] [place] [address] 25 Sep, 2013 [facility] [place] [facility] [address] [id number] [place] [address] 25 Sep, 2013 [facility] [place] [facility] [address] [id number] [place] [address] 25 Sep, 2013 [facility] [place] [facility] [address] [id number] [place] [address] 19 Sep, 2013 [facility] [place] [facility] [address] [id number] [place] [address] 16 Sep, 2013 [facility] [place] [facility] [address] [id number] [place] [address] 16 Sep, 2013 [facility] [place] [facility] [address] [id number] [place] [address] 08 Sep, 2013 [facility] [place] [facility] [address] [id number] [place] [address] Jul, [facility] [place] [facility] [address] [id number] [place] [address] Jun, [facility] [place] [facility] [address] [id number] [place] [address] Jun, [facility] [place] [facility] [address] [id number] [place] [address] Jun, [facility] [place] [facility] [address] [id number] [place] [address] Jun, [facility] [place] [facility] [address] [id number] [place] [address] Jun, [facility] [place] [facility] [address] [id number] [place] [address] Jun, [facility] [place] [facility] [address] [id number] [place] [address] Jun, [facility] [place] [facility] [address] [id number] [place] [address] Jun, [facility] [place] [facility] [address] [id number] [place] [address] May, [facility] [place] [facility] [address] [id number] [place] [address] May, [facility] [place] [facility] [address] [id number] [place] [address] May, [facility] [place] [facility] [address] [id number] [place] [address] May, [facility] [place] [facility] [address] [id number] [place] [address] May, [facility] [place] [facility] [address] [id number] [place] [address] May, [facility] [place] [facility] [address] [id number] [place] [address] May, [facility] [place] [facility] [address] [id number] [place] [address] May, [facility] [place] [facility] [address] [id number] [place] [address] May, [facility] [place] [facility] [address] [id number] [place] [address] May, [facility] [place] [facility] [address] [id number] [place] [address] May, [facility] [place] [facility] [address] [id number] [place] [address] May, [facility] [place] [facility] [address] [id number] [place] [address] May, [facility] [place] [facility] [address] [id number] [place] [address] Apr, [facility] [place] [facility] [address] [id number] [place] [address] Apr, [facility] [place] [facility] [address] [id number] [place] [address] Apr, [facility] [place] [facility] [address] [id number] [place] [address] Apr, [facility] [place] [facility] [address] [id number] [place] [address] Apr, [facility] [place] [facility] [address] [id number] [place] [address] Apr, [facility] [place] [facility] [address] [id number] [place] [address] March, [facility] [place] [facility] [address] [id number] [place] [address] March, [facility] [place] [facility] [address] [id number] [place] [address] March, [facility] [place] [facility] [address] [id number] [place] [address] Feb, [facility] [place] [facility] [address] [id number] [place] [address] 24 Feb, 2014 [facility] [place] [facility] [address] [id number] [place] [address] Feb, [facility] [place] [facility] [address] [id number] [place] [address] Feb, [facility] [place] [facility] [address] [id number] [place] [address] Feb, [facility] [place] [facility] [address] [id number] [place] [address] Feb, [facility] [place] [facility] [address] [id number] [place] [address] Feb, [facility] [place] [facility] [address] [id number] [place] [address] Feb, [facility] [place] [facility] [address] [id number] [place] [address] Feb, [facility] [place] [facility] [address] [id number] [place] [address] Feb, [facility] [place] [facility] [address] [id number] [place] [address] Feb, [facility] [place] [facility] [address] [id number] [place] [address] Jan, [facility] [place] [facility] [address] [id number] [place] [address] Jan, [facility] [place] [facility] [address] [id number] [place] [address] Jan, [facility] [place] [facility] [address] [id number] [place] [address] Jan, [facility] [place] [facility] [address] [id number] [place] [address] Jan, [facility] [place] [facility] [address] [id number] [place] [address] Jan, [facility] [address] [id number] [place] [address] Dec, [facility] [place] [facility] [address] [id number] [place] [address] Dec, [facility] [place] [facility] [address] [id number] [place] [address] Dec, [facility] [place] [facility] [address] [id number] [place] [address] Dec, [facility] [place] [facility] [address] [id number] [place] [address] Nov, [facility] [place] [facility] [address] [id number] [place] [address] Nov, [facility] [place] [facility] [address] [id number] [place] [address] Nov, [facility] [place] [facility] [address] [id number] [place] [address] Nov, [facility] [place] [facility] [address] [id number] [place] [address] Nov, [facility] [place] [facility] [address] [id number] [place] [address] Nov, [facility] [place] [facility] [address] [id number], [place] [address] Oct, [facility] [place] [facility] [address] [id number] [place] [address] Oct, [facility] [place] [facility] [address] [id number] [place] [address] Oct, [facility] [place] [facility] [address] [id number] [place] [address] Oct, [facility] [place] [facility] [address] [id number] [place] [address] Oct, [facility] [place] [facility] [address] [id number] [place] [address] Oct, [facility] [place] [facility] [address] [id number] [place] [address] Sep, [facility] [place] [facility] [address] [id number] [place] [address] Sep, [facility] [place] [facility] [address] [id number] [place] [address] Sep, [facility] [place] [facility] [address] [id number] [place] [address] Sep, [facility] [place] [facility] [address] [id number] [place] [address] Sep, [facility] [place] [facility] [address] [id number] [place] [address] Sep, [facility] [place] [facility] [address] [id number] [place] [address] Aug, [facility] [place] [facility] [address] [id number] [place] [address] Aug, [facility] [place] [facility] [address] [id number] [place] [address] Aug, [facility] [place] [facility] [address] [id number] [place] [address] Aug, [facility] [place] [facility] [address] [id number] [place] [address] Jul, [facility] [place] [facility] [address] [id number] [place] [address] Jul, [facility] [place] [facility] [address] [id number] [place] [address] Jun, [facility] [place] [facility] [address] [id number] [place] [address] Jun, [facility] [place] [facility] [address] [id number] [place] [address] May, [facility] [address] [id number] [place] [address] May, [facility] [place] [facility] [address] [id number] [place] [address] May, [facility] [place] [facility] [address] [id number] [place] [address] May, [facility] [place] [facility] [address] [id number] [place] [address] May, [facility] [address] [id number] [place] [address] May, [facility] [place] [facility] [address] [id number] [place] [address] Apr, [facility] [place] [facility] [address] [id number] [place] [address] Apr, [facility] [place] [facility] [address] [id number] [place] [address] Apr, [facility] [place] [facility] [address] [id number] [place] [address] Apr, [facility] [place] [facility] [address] [id number] [place] [address] March, [facility] [place] [facility] [address] [id number] [place] [address] March, [facility] [place] [facility] [address] [id number], [place] [address] March, [facility] [place] [facility] [address] [id number] [place] [address] Feb, [facility] [place] [facility] [address] [id number] [place] [address] Feb, [facility] [place] [facility] [address] [id number] [place] [address] Jan, [facility] [place] [facility] [address] [id number] [place] [address] Dec, [facility] [address] [id number] [place] [address] Dec, [facility] [address] [id number] [place] [address] Dec, [facility] [address] [id number] [place] [address] Dec, [facility] [address] [id number] [place] [address] Dec, [facility] [address] [id number] [place] [address] Nov, [facility] [address] [id number] [place] [address] Nov, [facility] [address] [facility] [id number] [place] [address] Nov, [facility] [address] [id number] [place] [address] Nov, [facility] [id number] [place] [address] Nov, [facility] [address] [facility] [id number] [place] [address] Oct, [facility] [address] [id number] [place] [address] Oct, [facility] [address] [id number] [place] [address] Oct, [facility] [address] [id number] [place] [address] Oct, [facility] [address] [id number] [place] [address] Sep, [facility] [address] [id number] [place] [address] Sep, [facility] [place] [facility] [address] [id number] [place] [address] Sep, [facility] [place] [facility] [address] [id number] [place] [address] Sep, [facility] [place] [facility] [address] [facility] [id number] [place] [address] Sep, [facility] [place] [facility] [address] [id number] [place] [address] Sep, [facility] [place] [facility] [address] [id number] [place] [address] Sep, [facility] [place] [facility] [address] [id number] [place] [address] Sep, [facility] [place] [facility] [address] [facility] [id number] [place] [address] Sep, [facility] [place] [facility] [address] [facility] [id number], [place] [address] Sep, [facility] [place] [facility] [address] [facility] [id number], [place] [address] Aug, [facility] [place] [facility] [address] [facility] [id number], [place] [address] Aug, [facility] [place] [facility] [address] [facility] [id number], [place] [address] Aug, [facility] [place] [facility] [address] [facility] [id number], [place] [address] Aug, [facility] [place] [facility] [address] [facility] [id number], [place] [address] Aug, [facility] [place] [facility] [address] [facility] [id number], [place] [address] Aug, [facility] [place] [facility] [address] [facility] [id number], [place] [address] Jul, [facility] [place] [facility] [address] [facility] [id number], [place] [address] Jun, [facility] [address] [id number] [place] [address] Apr, [facility] [place] [facility] [address] [id number] [place] [address] Apr, [facility] [place] [facility] [address] [id number] [place] [address] Apr, [facility] [place] [facility] [address] [id number] [place] [address] Apr, [facility] [place] [facility] [address] [id number] [place] [address] March, [facility] [place] [facility] [address] [id number] [place] [address] March, [facility] [address] [id number] [place] [address] March, [facility] [place] [facility] [address] [id number] [place] [address] March, [facility] [place] [facility] [address] [id number] [place] [address] March, [facility] [place] [facility] [address] [facility] [id number] [place] [address] Feb, [facility] [place] [facility] [address] [id number] [place] [address] Feb, [facility] [place] [facility] [address] [id number] [place] [address] Feb, [facility] [place] [facility] [address] [id number] [place] [address] Feb, [facility] [place] [facility] [address] [id number] [place] [address] Jan, [facility] [place] [facility] [address] [facility] [id number] [place] [address] Jan, [facility] [place] [facility] [id number], [place] [address] 05 Jan, 2012 [facility] [id number], [place] [address] 28 Dec, 2011 [facility] [address] [facility] [id number], [place] [address] 15 Dec, 2011 [facility] [id number] [place] [address] 14 Dec, 2011 [facility] [address] [facility] [id number], [place] [address] Dec, [facility] [id number] [place] [address] Dec, [facility] [id number], [place] [address] Nov, [facility] [id number] [place] [address] Nov, [facility] [id number], [place] [address] Nov, [facility] [id number], [place] [address] Oct, [facility] [id number], [place] [address] Oct, [facility] [id number], [place] [address] Oct, [facility] [id number], [place] [address] Sep, [facility] [id number], [place] [address] 13 Jul, 2011 [facility] [id number] [address] 16 Apr, 2011 IMMUNIZATIONS No Known Immunizations SOCIAL HISTORY Never Assessed REASON FOR VISIT PALS/Lyrica PLAN OF CARE VITAL SIGNS MEDICATIONS Medication [...]
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
[2019-04-23] MEDS ORDERED: KETOROLAC 30 MG/ML VIAL IVP ONE (12:15)
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
--- OUTSIDE RECORDS SUMMARY | 2019-04-23 12:16 | XMS REPORT ---
Author Author KUN ESCALANTE [facility] Address [address] [place] [address] Care Team Providers Care Heel Breaster Name Role Phone KUN ESCALANTE Unavailable PROBLEMS Type Condition ICD9-CM Code [id number] Code Onset Dates Condition Status SNOMED Code Problem Lumbago with sciatica, right side M54.41 Active 057787960 Problem Hypertriglyceridemia E78.1 Active 469204021 Problem Neuropathy G62.9 Active 289638380 Problem Bipolar 1 disorder F31.9 Active 188490882 Problem Type 2 diabetes mellitus with complication E11.8 Active 10252047 ALLERGIES Unknown Allergies SOCIAL HISTORY No smoking Hx information available PLAN OF CARE VITAL SIGNS MEDICATIONS Unknown Medications RESULTS No Results PROCEDURES No Known procedures IMMUNIZATIONS No Known Immunizations
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
--- OUTSIDE RECORDS SUMMARY | 2019-04-23 12:18 | XMS REPORT ---
Author KUN Zimmer Organization [employer] Address Unknown Phone Unavailable Care Team Providers Care Chore Tender Name Role Phone KUN ESCALANTE CP Unavailable Allergies No Known Allergies Problems Problem Type Condition Code Onset Dates Condition Status Problem Bipolar I disorder, most recent episode (or current) depressed, unspecified 296.50 Active Problem Unspecified prostatitis 601.9 Active Problem Special screening for malignant neoplasm of prostate V76.44 Active Problem Type 2 diabetes mellitus with complication E11.8 Active Problem Pure hyperglyceridemia 272.1 Active Problem Neuropathy G62.9 Active Problem Secondary diabetes mellitus with neurological manifestations, not stated as uncontrolled, or unspecified 249.60 Active Problem Other chronic pain 338.29 Active Problem Generalized anxiety disorder 300.02 Active Problem Anxiety state, unspecified 300.00 Active Problem Nocturia 788.43 Active Problem 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
--- OUTSIDE RECORDS SUMMARY | 2019-04-23 12:18 | XMS REPORT ---
Author Author KUN ESCALANTE Organization [facility] Address [address] [place] [address] Care Team Providers Care Triage Licensed Practical Nurse Name Role Phone KUN ESCALANTE Unavailable PROBLEMS Type Condition ICD9-CM Code YHT14-FT Code Onset Dates Condition Status SNOMED Code Problem Lumbago with sciatica, right side M54.41 Active 959342487 Problem Hypertriglyceridemia E78.1 Active 163206258 Problem Neuropathy G62.9 Active 016801691 Problem Bipolar 1 disorder F31.9 Active 725431062 Problem Type 2 diabetes mellitus with complication E11.8 Active 31296636 ALLERGIES Unknown Allergies SOCIAL HISTORY No smoking Hx information available PLAN OF CARE VITAL SIGNS MEDICATIONS Medication Instructions Dosage Frequency Start Date End Date Duration Status Fish Oil 1 gram 3 capsule by Oral route 3 times per day Jan, Active Tricor 145 MG TAKE ONE TABLET BY MOUTH DAILY 90 Active Diclofenac Sodium 75 MG TAKE ONE TABLET BY MOUTH TWICE DAILY 30 Active Atenolol-Chlorthalidone 50-25 MG TAKE ONE TABLET BY MOUTH DAILY 90 Active Cyclobenzaprine HCl 5 MG TAKE ONE-HALF TABLET BY MOUTH IN THE MORNING AND AFTERNOON AND ONE TO TWO TABLETS AT BEDTIME 30 Active Aleve 220 MG Orally every 12 hrs 1 tablet as needed 12h Active Atorvastatin Calcium 40 MG TAKE ONE TABLET BY MOUTH DAILY 90 Active Viagra 100 MG Orally Once a day 1/2 -1 tablet as needed 24h May, Active Depakote 500 MG 1 tablet by Oral route 3 times per day Jun, 30 Active Farxiga 10 MG Orally Once a day 1 tablet 24h Dec, 90 days Active MetFORMIN HCl ER 500 MG TAKE TWO TABELTS BY MOUTH WITH BREAKFAST AND TWO TABLETS WITH SUPPER 30 Active Zoloft 100 MG TAKE ONE TABLET BY MOUTH ONCE DAILY 30 Active RESULTS No Results PROCEDURES No Known procedures IMMUNIZATIONS No Known Immunizations
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
--- OUTSIDE RECORDS SUMMARY | 2019-04-23 12:18 | XMS REPORT ---
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 [address]-37 500 MG Jul 02, 2014 1 tablet by Oral route 3 times per day Results No Known Results Summary Purpose [employer] Submission
--- OUTSIDE RECORDS SUMMARY | 2019-04-23 12:19 | XMS REPORT ---
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 Problem Bipolar I disorder, most recent episode (or current) depressed, unspecified 296.50 Active Problem Unspecified hereditary and idiopathic peripheral neuropathy 356.9 Active Problem Generalized anxiety disorder 300.02 Active Problem Anxiety state, unspecified 300.00 Active Problem Pure hyperglyceridemia 272.1 Active Problem Unspecified prostatitis 601.9 Active Problem Special screening for malignant neoplasm of prostate V76.44 Active Problem Secondary diabetes mellitus with neurological manifestations, not stated as uncontrolled, or unspecified 249.60 Active Problem Other chronic pain 338.29 Active Assessment Diabetes E11.9 Active Problem Nocturia 788.43 Active Problem 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 Medications Medication Code System Code Instructions Start Date End Date Status Dosage Abilify [facility] [address]-95 15 MG Aug 27, 2014 1 tablet by Oral route 1 time per day Bydureon [facility] [address]-99 2 MG Subcutaneous once a week Oct 04, 2015 2 mg Atenolol-Chlorthalidone [facility] 96601947442 50-25 MG TAKE ONE TABLET BY MOUTH DAILY Fish Oil [facility] [address]-71 1 gram January 15, 2012 3 capsule by Oral route 3 times per day Diclofenac Sodium [facility] 12381832890 75 MG TAKE ONE TABLET BY MOUTH TWICE DAILY MetFORMIN HCl ER [facility] 19424624908 500 MG TAKE TWO TABLETS BY MOUTH WITH BREAKFAST AND TWO TABLETS WITH SUPPER Depakote [facility] [address]-38 500 MG Jul 02, 2014 1 tablet by Oral route 3 times per day Atorvastatin Calcium [facility] 77562323760 40 MG TAKE ONE TABLET BY MOUTH DAILY Tricor [facility] 51835378910 145 MG TAKE ONE TABLET BY MOUTH DAILY Procedures Procedure Coding System Code Date COMPREHEN METABOLIC PANEL CPT-4 89481 Oct 04, 2015 LIPID PANEL CPT-4 73323 Oct 04, 2015 GLYCATED HEMOGLOBIN TEST CPT-4 62673 Oct 04, 2015 Office Visit, Est Pt., Level 3 CPT-4 90907 Oct 04, 2015 VENIPUNCT, ROUTINE* CPT-4 79268 Oct 04, 2015 Vital Signs Date/Time: Oct 04, 2015 Temperature 97.7 F Weight 284.0 lbs Height 70 in BMI 40.75 Index Blood Pressure Diastolic 70 mmHg Blood Pressure Systolic 132 mmHg Cardiac Monitoring Heart Rate 72 bpm Results Name Result Date Reference Range Unit Abnormality Flag LIPID PANEL ----HDL Cholesterol 21 35954494 >39 mg/dL L ----Cholesterol, Total 193 99010955 100-199 mg/dL ----Triglycerides 483 56449179 0-149 mg/dL H CMP ----Globulin, Total 2.4 74182888 1.5-4.5 g/dL ----eGFR If Africn Am 54 42222919 >59 mL/min/1.73 L ----eGFR If NonAfricn Am 47 83973026 >59 mL/min/1.73 L ----Albumin, Serum 4.6 98710856 3.5-5.5 g/dL ----Sodium, Serum 131 41530963 134-144 mmol/L L ----Protein, Total, Serum 7.0 71324935 6.0-8.5 g/dL ----BUN/Creatinine Ratio 9 00317319 9-20 ----Calcium, Serum 9.1 15230795 8.7-10.2 mg/dL ----AST (SGOT) 15 00302883 0-40 IU/L ----Glucose, Serum 220 84589958 65-99 mg/dL H ----Alkaline Phosphatase, S 48 53002580 39-117 IU/L ----Bilirubin, Total 0.2 98204953 0.0-1.2 mg/dL ----Creatinine, Serum 1.66 62770104 0.76-1.27 mg/dL H ----A/G Ratio 1.9 27959550 1.1-2.5 ----BUN 15 48397535 6-24 mg/dL ----Carbon Dioxide, Total 30 20151004 18-29 mmol/L H ----ALT (SGPT) 13 20151004 0-44 IU/L ----Potassium, Serum 4.1 20151004 3.5-5.2 mmol/L ----Chloride, Serum 87 20151004 97-108 mmol/L L ROUTINE VENIPUNCTURE A1C (IN HOUSE) ----Exp date 20151004 ----Previous A1c 8.5% 20151004 ----Lot # [id number] ----A1C IN HOUSE 8.1% 20151004 4.30 - 5.6 % Summary Purpose [employer]ClinicalWorks Submission
--- OUTSIDE RECORDS SUMMARY | 2019-04-23 12:19 | XMS REPORT ---
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 Assessment Erectile dysfunction, unspecified erectile dysfunction type N52.9 Active Problem Psychosexual dysfunction with inhibited sexual excitement 302.72 Active Assessment Type 2 diabetes mellitus with complication E11.8 Active Problem Unspecified hereditary and idiopathic peripheral neuropathy 356.9 Active Medications Medication Code System Code Instructions Start Date End Date Status Dosage Tricor [facility] 41742000311 145 MG TAKE ONE TABLET BY MOUTH DAILY Zoloft [facility] 29168378168 100 MG TAKE ONE TABLET BY MOUTH DAILY Atorvastatin Calcium [facility] 19575291270 40 MG TAKE ONE TABLET BY MOUTH DAILY Farxiga [facility] [address]-16 10 MG Orally Once a day Dec 20, 2015 1 tablet Aleve [facility] [address]-80 220 MG Orally every 12 hrs 1 tablet as needed Diclofenac Sodium [facility] 74386797084 75 MG TAKE ONE TABLET BY MOUTH TWICE DAILY Depakote [facility] [address]-75 500 MG Jul 02, 2014 1 tablet by Oral route 3 times per day MetFORMIN HCl ER [facility] 56792098832 500 MG TAKE TWO TABLETS BY MOUTH WITH BREAKFAST AND TWO TABLETS WITH SUPPER Viagra [facility] [address]-35 100 MG Orally Once a day June 05, 2016 1/2 - 1 tablet as needed Fish Oil [facility] [address]-96 1 gram January 15, 2012 3 capsule by Oral route 3 times per day Abilify [facility] [address]-43 15 MG Aug 27, 2014 1 tablet by Oral route 1 time per day Atenolol-Chlorthalidone [facility] 50158892399 50-25 MG TAKE ONE TABLET BY MOUTH DAILY Procedures Procedure Coding System Code Date COMPREHEN METABOLIC PANEL CPT-4 46797 June 05, 2016 LIPID PANEL CPT-4 92906 June 05, 2016 GLYCATED HEMOGLOBIN TEST CPT-4 06678 June 05, 2016 VENIPUNCT, ROUTINE* CPT-4 19201 June 05, 2016 Office Visit, Est Pt., Level 3 CPT-4 70810 June 05, 2016 Vital Signs Date/Time: June 05, 2016 Cardiac Monitoring Heart Rate 67 bpm Weight 262.0 lbs Height 70 in BMI 37.59 Index Blood Pressure Diastolic 90 mmHg Blood Pressure Systolic 118 mmHg Results No Known Results Summary Purpose [employer]ClinicalWorks Submission
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
--- OUTSIDE RECORDS SUMMARY | 2019-04-23 12:19 | XMS REPORT ---
Author Author KATELYN CORTEZ [facility] Address [address] [place] [address] Care Team Providers Care History Teacher Name Role Phone KATELYN CORTEZ Unavailable PROBLEMS Type Condition ICD9-CM Code [id number] Code Onset Dates Condition Status SNOMED Code Problem Lumbago with sciatica, right side M54.41 Active 640761571 Problem Bipolar 1 disorder F31.9 Active 405462209 Problem Type 2 diabetes mellitus with complication E11.8 Active 30154877 Problem Hypertriglyceridemia E78.1 Active 857999649 Problem Neuropathy G62.9 Active [id number] ALLERGIES Unknown Allergies SOCIAL HISTORY No smoking Hx information available PLAN OF CARE Activity Details Follow Up prn Reason: VITAL SIGNS Height 70 in 2016-10-19 Blood pressure systolic 138 mmHg 2016-10-19 Blood pressure diastolic 82 mmHg 2016-10-19 MEDICATIONS Unknown Medications RESULTS No Results PROCEDURES Procedure Date Ordered Related Diagnosis Body Site DRAIN/INJECT, JOINT/BURSA Oct 19, 2016 DEPO MEDROL 40 MG/ML Oct 19, 2016 Office Visit, Est Pt., Level 3 Oct 19, 2016 IMMUNIZATIONS No Known Immunizations
--- OUTSIDE RECORDS SUMMARY | 2019-04-23 12:20 | XMS REPORT ---
Author Author KUN ESCALANTE Organization [facility] Address [address] [place] [address] Care Team Providers Care Hvac Residential Service Technician Name Role Phone KUN ESCALANTE Unavailable PROBLEMS Type Condition ICD9-CM Code RIY41-VZ Code Onset Dates Condition Status SNOMED Code Problem Muscle pain M79.1 Active 28017419 Problem Lumbago with sciatica, right side M54.41 Active 143862937 Problem Neuropathy G62.9 Active 854212178 Problem Type 2 diabetes mellitus with complication E11.8 Active 17026731 Problem Hypertriglyceridemia E78.1 Active 544455803 Problem Bipolar 1 disorder F31.9 Active [id number] ALLERGIES No Information ENCOUNTERS Encounter Location Date Diagnosis [place] [id number] [address] Apr, Radiculopathy of arm M54.10 [place] [address] [address] March, Radiculopathy of arm M54.10 [place] [address] [address] March, Radiculopathy of arm M54.10 [place] [address] [address] March, Radiculopathy of arm M54.10 [place] [address] [address] March, Type 2 diabetes mellitus with complication E11.8 ; Radiculopathy of arm M54.10 and Muscle pain M79.1 [facility] [address] [address] Feb, Muscle pain M79.1 [facility] [address] [place] [id number] [place] [address] Jan, Type 2 diabetes mellitus with complication E11.8 [facility] [address] [place] [id number] [place] [address] Jan, [facility] [address] [place] [id number] [place] [address] Dec, Muscle pain M79.1 [facility] [address] [place] [id number] [place] [address] Nov, Muscle pain M79.1 and Acute pain of right shoulder M25.511 [place] [address] [place] [id number] [place] [address] Nov, [place] [address] [place] [id number] [place] [address] Nov, [place] [address] [place] [id number] [place] [address] Nov, Type 2 diabetes mellitus with complication E11.8 [place] [address] [place] [id number] [place] [address] Nov, Impingement syndrome of left shoulder M75.42 and Impingement syndrome of right shoulder M75.41 [place] [address] [place] [id number] [place] [address] Oct, Type 2 diabetes mellitus with complication E11.8 ; Acute pain of right shoulder M25.511 ; Abscess of finger of right hand L02.511 and Umbilical hernia without obstruction and without gangrene K42.9 [facility] [address] [place] [id number] [place] [address] Oct, [facility] [id number] [place] [address] Oct, Mucoid otitis media, unspecified chronicity, unspecified laterality H65.90 and Abscess of finger of right hand L02.511 [place] [address] [place] [id number] [place] [address] Oct, [place] [address] [place] [id number] [place] [address] Sep, [facility] [address] [place] [id number] [place] [address] Aug, [place] [address] [place] [id number] [place] [address] 14 Jul, 2017 Sprain of right acromioclavicular ligament, initial encounter S43.51XA ; Impingement syndrome of left shoulder M75.42 and Impingement syndrome of right shoulder M75.41 [place] [address] [place] [id number] [place] [address] 14 Jul, 2017 Type 2 diabetes mellitus with complication E11.8 [place] [address] [place] [id number] [place] [address] Jun, [place] [address] [place] [id number] [place] [address] Jun, Type 2 diabetes mellitus with complication E11.8 ; Lumbago with sciatica, right side M54.41 ; 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 and Pain in left shoulder M25.512 [place] [address] [address] May, [place] [address] [place] [id number] [place] [address] May, [place] [address] [place] [id number] [place] [address] Apr, Lumbago with sciatica, right side M54.41 and Neck pain on left side M54.2 [place] [address] [place] [id number] [place] [address] Apr, [place] [address] [place] [id number] [place] [address] Apr, [facility] [address] [address] March, [facility] [address] [place] [id number] [place] [address] March, [facility] [address], [place] [address] Feb, Acute pain of right shoulder M25.511 [facility] [address] [place] [id number] [place] [address] Feb, [facility] [address] [place] [id number] [place] [address] Feb, [facility] [address] [place] [id number] [place] [address] Feb, Type 2 diabetes mellitus with complication E11.8 ; Neuropathy G62.9 and Acute pain of right shoulder M25.511 [facility] [id number] [place] [address] Dec, Type 2 diabetes mellitus with complication E11.8 [facility] [id number] [place] [address] Nov, [facility] [id number] [place] [address] Oct, 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 [facility] [address] [address] Oct, Type 2 diabetes mellitus with complication E11.8 [facility] [address], [place] [address] Sep, Type 2 diabetes mellitus with complication E11.8 ; Acute pain of right shoulder M25.511 and Prostate cancer screening Z12.5 [facility] [address], [place] [address] Sep, [facility] [address] [place] [id number] [place] [address] Jun, [facility] [address] [place] [id number] [place] [address] Jun, Muscle tension headache G44.209 and Bruxism F45.8 [facility] [address] [place] [id number] [place] [address] May, Type 2 diabetes mellitus with complication E11.8 ; Erectile dysfunction, unspecified erectile dysfunction type N52.9 and Neuropathy G62.9 [facility] [address] [place] [id number] [place] [address] Feb, [facility] [address] [place] [id number] [place] [address] Feb, Type 2 diabetes mellitus with complication E11.8 [facility] [address] [place] [id number] [place] [address] Dec, [facility] [address] [place] [id number] [place] [address] Dec, Type 2 diabetes mellitus with complication E11.8 [facility] [address] [place] [id number] [place] [address] Nov, Nausea and vomiting, unspecified intactability, vomiting of unspecified type R11.2 [facility] [address] [place] [id number] [place] [address] Oct, Neuropathy G62.9 and Type 2 diabetes mellitus with complication E11.8 [facility] [address] [place] [id number] [place] [address] Sep, [facility] [address] [place] [id number] [place] [address] Sep, [facility] [address] [place] [id number] [place] [address] Sep, Diabetes E11.9 [facility] [address] [place] [id number] [place] [address] Sep, [place] [address] [facility] [id number] [address] Jul, [facility] [address] [address] Jun, [facility] [address], [place] [address] Jun, Secondary diabetes mellitus with neurological manifestations, not stated as uncontrolled, or unspecified 249.60 ; Other chronic pain 338.29 and Puncture wound 879.8 [facility] [address] [facility] [place] [id number] [place] [address] May, [facility] [address] [place] [id number] [place] [address], [place] [address] Apr, [facility] [address] [place] [id number] [address] March, [facility] [address] [place] [id number] [place] [address] Feb, [facility] [id number] [place] [address] Feb, [facility] [address], [place] [address] Jan, [facility] [address], [place] [address] Jan, [facility] [address] [address] Jan, [facility] [address] [facility] [place] [id number] [place] [address] Jan, [facility] [id number] [place] [address] Jan, [facility] [address] [facility] [place] [id number] [address] Jan, [facility] [address], [place] [address] Jan, [facility] [place] [facility] [address] [id number] [place] [address] Jan, [facility] [place] [facility] [address] [id number] [place] [address] Dec, [facility] [place] [facility] [address] [id number] [place] [address] Dec, [facility] [place] [facility] [address] [id number] [place] [address] Nov, [facility] [place] [facility] [address] [id number] [place] [address] Nov, [facility] [place] [facility] [address] [id number] [place] [address] Nov, [facility] [place] [facility] [address] [id number] [place] [address] Nov, [facility] [place] [facility] [address] [id number] [place] [address] Nov, [facility] [place] [facility] [address] [id number] [place] [address] Nov, [facility] [place] [facility] [address] [id number] [place] [address] Oct, [facility] [place] [facility] [address] [id number], [place] [address] Oct, [facility] [place] [facility] [address] [id number], [place] [address] Oct, [facility] [place] [facility] [address] [id number] [place] [address] Oct, [facility] [place] [facility] [address] [id number] [place] [address] Oct, [facility] [place] [facility] [address] [id number] [place] [address] Oct, [facility] [place] [facility] [address] [id number] [place] [address] Oct, [facility] [place] [facility] [address] [id number] [place] [address] Oct, [facility] [place] [facility] [address] [id number] [place] [address] Oct, [facility] [place] [facility] [address] [id number] [place] [address] Sep, [facility] [place] [facility] [address] [id number] [place] [address] Sep, [facility] [place] [facility] [address] [id number] [place] [address] Sep, [facility] [place] [facility] [address] [id number] [place] [address] Sep, [facility] [place] [facility] [address] [id number] [place] [address] Sep, [facility] [place] [facility] [address] [id number] [place] [address] Sep, [facility] [place] [facility] [address] [id number] [place] [address] Sep, [facility] [place] [facility] [address] [id number] [place] [address] Aug, [facility] [place] [facility] [address] [id number] [place] [address] Aug, [facility] [place] [facility] [address] [id number] [place] [address] Aug, [facility] [place] [facility] [address] [id number] [place] [address] Aug, [facility] [place] [facility] [address] [id number] [place] [address] Aug, [facility] [place] [facility] [address] [id number] [place] [address] Aug, [facility] [place] [facility] [address] [id number] [place] [address] 26 Jul, 2013 [facility] [place] [facility] [address] [id number] [place] [address] 25 Jul, 2013 [facility] [place] [facility] [address] [id number] [place] [address] 25 Jul, 2013 [facility] [place] [facility] [address] [id number] [place] [address] 25 Jul, 2013 [facility] [place] [facility] [address] [id number] [place] [address] 25 Jul, 2013 [facility] [place] [facility] [address] [id number] [place] [address] 19 Jul, 2013 [facility] [place] [facility] [address] [id number] [place] [address] 16 Jul, 2014 [facility] [place] [facility] [address] [id number] [place] [address] 16 Jul, 2013 [facility] [place] [facility] [address] [id number] [place] [address] 08 Jul, 2014 [facility] [place] [facility] [address] [id number] [place] [address] 08 Jul, 2014 [facility] [place] [facility] [address] [id number], [place] [address] Jun, [facility] [place] [facility] [address] [id number], [place] [address] Jun, [facility] [place] [facility] [address] [id number] [place] [address] Jun, [facility] [place] [facility] [address] [id number] [place] [address] Jun, [facility] [place] [facility] [address] [id number] [place] [address] Jun, [facility] [place] [facility] [address] [id number], [place] [address] Jun, [facility] [place] [facility] [address] [id number] [place] [address] Jun, [facility] [place] [facility] [address] [id number] [place] [address] Jun, [facility] [place] [facility] [address] [id number] [place] [address] May, [facility] [place] [facility] [address] [id number] [place] [address] May, [facility] [place] [facility] [address] [id number] [place] [address] May, [facility] [place] [facility] [address] [id number] [place] [address] May, [facility] [place] [facility] [address] [id number] [place] [address] May, [facility] [place] [facility] [address] [id number] [place] [address] May, [facility] [place] [facility] [address] [id number] [place] [address] May, [facility] [place] [facility] [address] [id number] [place] [address] May, [facility] [place] [facility] [address] [id number] [place] [address] May, [facility] [place] [facility] [address] [id number] [place] [address] May, [facility] [place] [facility] [address] [id number] [place] [address] May, [facility] [place] [facility] [address] [id number] [place] [address] May, [facility] [place] [facility] [address] [id number] [place] [address] May, [facility] [place] [facility] [address] [id number] [place] [address] Apr, [facility] [place] [facility] [address] [id number] [place] [address] Apr, [facility] [place] [facility] [address] [id number] [place] [address] Apr, [facility] [place] [facility] [address] [id number] [place] [address] Apr, [facility] [place] [facility] [address] [id number] [place] [address] Apr, [facility] [place] [facility] [address] [id number] [place] [address] Apr, [facility] [place] [facility] [address] [id number] [place] [address] March, [facility] [place] [facility] [address] [id number] [place] [address] March, [facility] [place] [facility] [address] [id number] [place] [address] March, [facility] [place] [facility] [address] [id number] [place] [address] Feb, [facility] [place] [facility] [address] [id number] [place] [address] Feb, [facility] [place] [facility] [address] [id number] [place] [address] Feb, [facility] [place] [facility] [address] [id number] [place] [address] Feb, [facility] [place] [facility] [address] [id number] [place] [address] Feb, [facility] [place] [facility] [address] [id number] [place] [address] Feb, [facility] [place] [facility] [address] [id number] [place] [address] Feb, [facility] [place] [facility] [address] [id number] [place] [address] Feb, [facility] [place] [facility] [address] [id number] [place] [address] Feb, [facility] [place] [facility] [address] [id number] [place] [address] Feb, [facility] [place] [facility] [address] [id number] [place] [address] Feb, [facility] [place] [facility] [address] [id number] [place] [address] Jan, [facility] [place] [facility] [address] [id number] [place] [address] Jan, [facility] [place] [facility] [address] [id number] [place] [address] Jan, [facility] [place] [facility] [address] [id number] [place] [address] Jan, [facility] [place] [facility] [address] [id number] [place] [address] Jan, [facility] [place] [facility] [address] [id number] [place] [address] Jan, [facility] [place] [facility] [address] [id number] [place] [address] Dec, [facility] [place] [facility] [address] [id number] [place] [address] Dec, [facility] [place] [facility] [address] [id number] [place] [address] Dec, [facility] [place] [facility] [address] [id number] [place] [address] Dec, [facility] [place] [facility] [address] [id number] [place] [address] Nov, [facility] [place] [facility] [address] [id number] [place] [address] Nov, [facility] [address] [id number] [place] [address] Nov, [facility] [address] [id number] [place] [address] Nov, [facility] [address] [id number] [place] [address] Nov, [facility] [address] [id number] [place] [address] Nov, [facility] [address] [id number] [place] [address] Oct, [facility] [address] [id number] [place] [address] Oct, [facility] [address] [id number] [place] [address] Oct, [facility] [address] [id number] [place] [address] Oct, [facility] [address] [id number] [place] [address] Oct, [facility] [address] [id number] [place] [address] Oct, [facility] [address] [id number] [place] [address] Sep, [facility] [address] [id number] [place] [address] Sep, [facility] [place] [facility] [address] [id number] [place] [address] Sep, [facility] [place] [facility] [address] [id number] [place] [address] Sep, [facility] [address] [id number] [place] [address] Sep, [facility] [place] [facility] [address] [id number] [place] [address] Sep, [facility] [place] [facility] [address] [id number] [place] [address] Aug, [facility] [place] [facility] [address] [id number] [place] [address] Aug, [facility] [place] [facility] [address] [id number] [place] [address] Aug, [facility] [place] [facility] [address] [id number] [place] [address] Aug, [facility] [place] [facility] [address] [id number] [place] [address] Jul, [facility] [place] [facility] [address] [id number] [place] [address] Jul, [facility] [place] [facility] [address] [id number] [place] [address] Jun, [facility] [place] [facility] [address] [id number] [place] [address] Jun, [facility] [place] [facility] [address] [id number] [address] May, [facility] [place] [facility] [address] [id number], [place] [address] May, [facility] [place] [facility] [address] [id number], [place] [address] May, [facility] [place] [facility] [address] [id number] [place] [address] May, [facility] [place] [facility] [address] [id number], [place] [address] May, [facility] [place] [facility] [address] [id number], [place] [address] May, [facility] [place] [facility] [address] [id number], [place] [address] Apr, [facility] [address] [id number] [place] [address] Apr, [facility] [place] [facility] [address] [id number] [place] [address] Apr, [facility] [address] [facility] [place] [id number] [place] [address] Apr, [facility] [place] [facility] [address] [id number] [place] [address] March, [facility] [address] [id number] [place] [address] March, [facility] [address] [id number] [place] [address] March, [facility] [id number] [place] [address] Feb, [facility] [place] [facility] [address] [id number] [place] [address] Feb, [facility] [address] [id number] [place] [address] Jan, [facility] [id number] [place] [address] Dec, [facility] [id number] [place] [address] Dec, [facility] [place] [facility] [address] [facility] [place] [id number], [place] [address] Dec, [facility] [place] [facility] [address] [id number] [place] [address] Dec, [facility] [place] [facility] [address] [facility] [place] [id number] [place] [address] Dec, [facility] [place] [facility] [address] [id number] [address] Nov, [facility] [place] [facility] [address] [id number] [place] [address] Nov, [facility] [address] [id number] [place] [address] Nov, [facility] [address] [id number] [place] [address] Nov, [facility] [address] [id number] [place] [address] Nov, [facility] [address] [id number] [place] [address] Oct, [facility] [address] [id number] [place] [address] Oct, [facility] [facility] [address] [id number] [place] [address] Oct, [facility] [address] [id number] [place] [address] Oct, [facility] [address] [id number] [place] [address] Sep, [facility] [address] [id number] [place] [address] Sep, [facility] [address] [id number] [place] [address] Sep, [facility] [place] [facility] [address] [id number] [place] [address] Sep, [facility] [place] [facility] [address] [id number] [place] [address] Sep, [facility] [place] [facility] [address] [id number] [place] [address] Sep, [facility] [place] [facility] [address] [id number] [place] [address] Sep, [facility] [place] [facility] [address] [id number] [address] Sep, [facility] [place] [facility] [address] [id number] [place] [address] Sep, [facility] [place] [facility] [address] [id number] [place] [address] Sep, [facility] [place] [facility] [address] [id number] [place] [address] Aug, [facility] [place] [facility] [address] [id number] [place] [address] Aug, [facility] [place] [facility] [address] [id number] [place] [address] Aug, [facility] [place] [facility] [address] [id number] [place] [address] Aug, [facility] [place] [facility] [address] [id number] [place] [address] Aug, [facility] [place] [facility] [address] [id number] [place] [address] Aug, [facility] [place] [facility] [address] [id number] [place] [address] Jul, [facility] [place] [facility] [address] [id number] [place] [address] Jun, [facility] [place] [facility] [address] [id number], [place] [address] Apr, [facility] [place] [facility] [address] [id number], [place] [address] Apr, [facility] [place] [facility] [address] [id number] [place] [address] Apr, [facility] [place] [facility] [address] [id number] [place] [address] Apr, [facility] [place] [facility] [address] [id number] [place] [address] March, [facility] [place] [facility] [address] [id number] [place] [address] March, [facility] [address] [id number] [place] [address] March, [facility] [place] [facility] [address] [id number] [place] [address] March, [facility] [address] [id number] [place] [address] March, [facility] [place] [facility] [address] [id number] [place] [address] Feb, [facility] [address] [id number] [place] [address] Feb, [facility] [address] [id number] [place] [address] Feb, [facility] [address] [id number] [place] [address] Feb, [facility] [address] [id number] [place] [address] Jan, [facility] [place] [facility] [address] [id number] [place] [address] Jan, [facility] [address] [id number] [place] [address] Jan, [facility] [place] [facility] [address] [id number] [place] [address] 28 Dec, 2011 [facility] [place] [facility] [address] [id number] [place] [address] 15 Dec, 2011 [facility] [place] [facility] [address] [id number] [place] [address] 14 Dec, 2011 [facility] [place] [facility] [address] [id number] [place] [address] 08 Dec, 2011 [facility] [place] [facility] [address] [id number] [place] [address] Dec, [facility] [address] [id number] [address] Nov, [facility] [id number], [place] [address] Nov, [facility] [id number], [place] [address] Nov, [facility] [id number], [place] [address] Oct, [facility] [id number], [place] [address] Oct, [facility] [id number] [place] [address] Oct, [facility] [id number], [place] [address] Sep, [facility] [id number], [place] [address] Jul, [facility] [address] [id number], [place] [address] Apr, IMMUNIZATIONS No Known Immunizations SOCIAL HISTORY [...]
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
--- OUTSIDE RECORDS SUMMARY | 2019-04-23 12:20 | XMS REPORT ---
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 Educational Specialist Name Role Phone KUN ESCALANTE CP Unavailable [...] Start Date End Date Status Dosage Depakote [facility] [id number] 500 MG Jul 02, 2014 1 tablet by Oral route 3 times per day Results No Known Results Summary Purpose [employer] Submission
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
--- OUTSIDE RECORDS SUMMARY | 2019-04-23 12:21 | XMS REPORT ---
Author KUN Zimmer Organization [employer] Address Unknown Phone Unavailable Care Team Providers Care Ecologist Name Role Phone KUN ESCALANTE CP Unavailable [...]
--- OUTSIDE RECORDS SUMMARY | 2019-04-23 12:21 | XMS REPORT ---
Author KUN Zimmer [facility] [employer] Address Unknown Phone Unavailable Care Team Providers Care Well Drill Operator Cable Tool Name Role Phone KUN ESCALANTE CP Unavailable [...] Start Date End Date Status Dosage Abilify [facility] [address]-12 15 MG Aug 27, 2014 1 tablet by Oral route 1 time per day Zoloft [facility] 73334588241 100 MG TAKE ONE TABLET BY MOUTH DAILY Farxiga [facility] [address]-84 5 MG Orally Once a day #30 samples Dec 20, 2015 1 tablet Atenolol-Chlorthalidone [facility] 94577180104 50-25 MG TAKE ONE TABLET BY MOUTH DAILY Depakote [facility] [address]-45 500 MG Jul 02, 2014 1 tablet by Oral route 3 times per day Fish Oil [facility] [address]-45 1 gram January 15, 2012 3 capsule by Oral route 3 times per day Aleve [facility] [address]-70 220 MG Orally every 12 hrs 1 tablet as needed Tricor [facility] 44314569227 145 MG TAKE ONE TABLET BY MOUTH DAILY Atorvastatin Calcium [facility] 48618095728 40 MG TAKE ONE TABLET BY MOUTH DAILY Diclofenac Sodium [facility] 06693330027 75 MG TAKE ONE TABLET BY MOUTH TWICE DAILY MetFORMIN HCl ER [facility] 03836418383 500 MG TAKE TWO TABLETS BY MOUTH WITH BREAKFAST AND TWO TABLETS WITH SUPPER Procedures Procedure Coding System Code Date Office Visit, Est Pt., Level 3 CPT-4 14702 Dec 20, 2015 Vital Signs Date/Time: Dec 20, 2015 Temperature 98.3 F Weight 265 lbs Height 70 in BMI 38.02 Index Blood Pressure Diastolic 78 mmHg Blood Pressure Systolic 102 mmHg Cardiac Monitoring Heart Rate 72 bpm Results No Known Results Summary Purpose [employer] Submission
[2019-04-23 12:22] LABS: HEMATOCRIT 45 % (40-54); MEAN CORPUSCULAR HEMOGLOBIN 29 PG (25-34); MEAN CORPUSCULAR HGB CONC 34 G/DL (32-36); MEAN CORPUSCULAR VOLUME 87 FL (80-99); PLATELET COUNT 176 10^3/uL (130-400); RED CELL DISTRIBUTION WIDTH 13.5 % (10.0-14.5); WHITE BLOOD COUNT 9.1 10^3/uL (4.3-11.0)
--- OUTSIDE RECORDS SUMMARY | 2019-04-23 12:22 | XMS REPORT ---
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 Assessment Type 2 diabetes mellitus with complication E11.8 Active Problem Psychosexual dysfunction with inhibited sexual excitement 302.72 Active Assessment Neuropathy G62.9 Active Problem Unspecified hereditary and idiopathic peripheral neuropathy 356.9 Active Medications Medication Code System Code Instructions Start Date End Date Status Dosage Atenolol-Chlorthalidone [facility] 60755235830 50-25 MG TAKE ONE TABLET BY MOUTH DAILY Atorvastatin Calcium [facility] 57458763797 40 MG TAKE ONE TABLET BY MOUTH DAILY Naproxen Sodium [facility] [address]-16 275 MG Orally Twice a day 1 tablet Diclofenac Sodium [facility] 46719330649 75 MG TAKE ONE TABLET BY MOUTH TWICE DAILY Tricor [facility] 35988564880 145 MG TAKE ONE TABLET BY MOUTH DAILY Zoloft [facility] 20329839868 100 MG TAKE ONE TABLET BY MOUTH DAILY Abilify [facility] [address]-31 15 MG Aug 27, 2014 1 tablet by Oral route 1 time per day MetFORMIN HCl ER [facility] 54030204284 500 MG TAKE TWO TABLETS BY MOUTH WITH BREAKFAST AND TWO TABLETS WITH SUPPER Lyrica [facility] [address]-29 75 MG Orally Twice a day Nov 03, 2015 1 capsule Depakote [facility] [address]-16 500 MG Jul 02, 2014 1 tablet by Oral route 3 times per day Aleve [facility] [address]-80 220 MG Orally every 12 hrs 1 tablet as needed Fish Oil [facility] [address]-89 1 gram January 15, 2012 3 capsule by Oral route 3 times per day Bydureon [facility] [address]-50 2 MG Subcutaneous once a week Oct 04, 2015 2 mg Procedures Procedure Coding System Code Date Office Visit, Est Pt., Level 3 CPT-4 84533 Nov 03, 2015 Vital Signs Date/Time: Nov 03, 2015 Temperature 98.1 F Weight 281.4 lbs Height 70 in BMI 40.37 Index Blood Pressure Diastolic 60 mmHg Blood Pressure Systolic 120 mmHg Cardiac Monitoring Heart Rate 78 bpm Results No Known Results Summary Purpose [employer] Submission
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
--- OUTSIDE RECORDS SUMMARY | 2019-04-23 12:22 | XMS REPORT ---
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 Assessment Muscle tension headache G44.209 Active Problem Unspecified hereditary and idiopathic peripheral neuropathy 356.9 Active Medications Medication Code System Code Instructions Start Date End Date Status Dosage Zoloft [facility] 72229058465 100 MG TAKE ONE TABLET BY MOUTH DAILY Tricor [facility] 34472551393 145 MG TAKE ONE TABLET BY MOUTH DAILY Diclofenac Sodium [facility] 39280146991 75 MG TAKE ONE TABLET BY MOUTH TWICE DAILY Aleve [facility] [address]-80 220 MG Orally every 12 hrs 1 tablet as needed Atorvastatin Calcium [facility] 87383490576 40 MG TAKE ONE TABLET BY MOUTH DAILY Cyclobenzaprine HCl [facility] [address]-24 5 mg Orally Jul 03, 2016 0.5 tablet in the morning and afternoon, and 1-2 tablets at bedtime Farxiga [facility] [address]-49 10 MG Orally Once a day Dec 20, 2015 1 tablet MetFORMIN HCl ER [facility] 47748927106 500 MG TAKE TWO TABLETS BY MOUTH WITH BREAKFAST AND TWO TABLETS WITH SUPPER Fish Oil [facility] [address]-12 1 gram January 15, 2012 3 capsule by Oral route 3 times per day Atenolol-Chlorthalidone [facility] 91280529166 50-25 MG TAKE ONE TABLET BY MOUTH DAILY Depakote [facility] [address]-35 500 MG Jul 02, 2014 1 tablet by Oral route 3 times per day Viagra [facility] [address]-33 100 MG Orally Once a day June 05, 2016 1/2 - 1 tablet as needed Procedures Procedure Coding System Code Date Office Visit, Est Pt., Level 3 CPT-4 16090 Jul 03, 2016 Vital Signs Date/Time: Jul 03, 2016 Cardiac Monitoring Heart Rate 70 bpm Weight 260 lbs Height 70 in BMI 37.30 Index Blood Pressure Diastolic 80 mmHg Blood Pressure Systolic 130 mmHg Results No Known Results Summary Purpose eClinicalWorks Submission
--- OUTSIDE RECORDS SUMMARY | 2019-04-23 12:22 | XMS REPORT ---
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 Collections Analyst Name Role Phone KUN ESCALANTE CP Unavailable Allergies No Known Allergies Problems Problem Type Condition ICD-9 Code Onset Dates Condition Status Problem Psychosexual [...] Instructions Start Date End Date Status Dosage Percocet [facility] [address]-63 5-325 MG Orally every 6 hrs April 06, 2015 1 tablet as needed Results No Known Results Summary Purpose eClinical[employer] Submission
[2019-04-23 12:23] LABS: BASOPHILS % (AUTO) 0 % (0-10); EOSINOPHILS # (AUTO) 0.4 10^3/uL (0.0-0.3); EOSINOPHILS % (AUTO) 4 % (0-10); LYMPHOCYTES # (AUTO) 1.8 X 10^3 (1.0-4.0); LYMPHOCYTES % (AUTO) 20 % (12-44); MONOCYTES # (AUTO) 0.9 X 10^3 (0.0-1.0); MONOCYTES % (AUTO) 10 % (0-12); NEUTROPHILS # (AUTO) 5.9 X 10^3 (1.8-7.8); NEUTROPHILS % (AUTO) 65 % (42-75)
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
--- OUTSIDE RECORDS SUMMARY | 2019-04-23 12:23 | XMS REPORT ---
Author KUN Zimmer Organization [employer] Address Unknown Phone Unavailable Care Team Providers Care Apprentice Jockey Name Role Phone KUN ESCALANTE CP Unavailable [...] Instructions Start Date End Date Status Dosage Nusrat [facility] [address]-28 10 MG Orally Once a day Dec 20, 2015 1 tablet Results No Known Results Summary Purpose [employer] Submission
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
--- OUTSIDE RECORDS SUMMARY | 2019-04-23 12:24 | XMS REPORT ---
Author Author KUN ESCALANTE Organization [facility] Address [address] [place] [address] Care Team Providers Care Lumber Scaler Name Role Phone KUN ESCALANTE Unavailable PROBLEMS Type Condition ICD9-CM Code QAQ53-BV Code Onset Dates Condition Status SNOMED Code Problem Muscle pain M79.1 Active 92340765 Problem Lumbago with sciatica, right side M54.41 Active 241363794 Problem Neuropathy G62.9 Active 884110690 Problem Type 2 diabetes mellitus with complication E11.8 Active 86241700 Problem Hypertriglyceridemia E78.1 Active 980229356 Problem Bipolar 1 disorder F31.9 Active [id number] ALLERGIES No Information ENCOUNTERS Encounter Location Date Diagnosis [place] [address] [address] March, Radiculopathy of arm M54.10 [place] [address] [address] March, Radiculopathy of arm M54.10 [place] [address] [address] March, Radiculopathy of arm M54.10 [place] [address] [address] March, Type 2 diabetes mellitus with complication E11.8 ; Radiculopathy of arm M54.10 and Muscle pain M79.1 [place] [address] [address] 04 Feb, 2018 Muscle pain M79.1 [place] [address] [place] [id number] [place] [address] 14 Jan, 2018 Type 2 diabetes mellitus with complication E11.8 [place] [address] [address] Jan, [facility] [address] [place] [id number] [place] [address] Dec, Muscle pain M79.1 [facility] [address] [place] [id number] [place] [address] Nov, Muscle pain M79.1 and Acute pain of right shoulder M25.511 [place] [address] [place] [id number] [place] [address] Nov, [place] [address] [place] [id number] [place] [address] Nov, [place] [address] [place] [id number] [place] [address] Nov, Type 2 diabetes mellitus with complication E11.8 [place] [address] [place] [id number] [place] [address] Nov, Impingement syndrome of left shoulder M75.42 and Impingement syndrome of right shoulder M75.41 [place] [address] [place] [id number] [place] [address] Oct, Type 2 diabetes mellitus with complication E11.8 ; Acute pain of right shoulder M25.511 ; Abscess of finger of right hand L02.511 and Umbilical hernia without obstruction and without gangrene K42.9 [facility] [address] [address] Oct, [facility] [id number] [place] [address] Oct, Mucoid otitis media, unspecified chronicity, unspecified laterality H65.90 and Abscess of finger of right hand L02.511 [facility] [address] [address] Oct, [facility] [address] [place] [id number] [place] [address] Sep, [facility] [address] [address] Aug, [facility] [address] [place] [id number] [place] [address] 14 Jul, 2017 Sprain of right acromioclavicular ligament, initial encounter S43.51XA ; Impingement syndrome of left shoulder M75.42 and Impingement syndrome of right shoulder M75.41 [facility] [address] [place] [address] [address] 14 Jul, 2017 Type 2 diabetes mellitus with complication E11.8 [facility] [address] [place] [id number] [place] [address] Jun, 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 [address] [address] May, [facility] [address] [address] May, [facility] [address] [address] Apr, Lumbago with sciatica, right side M54.41 and Neck pain on left side M54.2 [facility] [address] [address] Apr, [facility] [address] [place] [id number] [place] [address] Apr, [facility] [address] [address] March, [facility] [address] [place] [id number] [address] March, [facility] [address] [place] [id number] [place] [address] Feb, Acute pain of right shoulder M25.511 [facility] [address] [place] [id number] [place] [address] Feb, [facility] [address] [place] [id number] [place] [address] Feb, [facility] [address] [place] [id number] [place] [address] Feb, Type 2 diabetes mellitus with complication E11.8 ; Neuropathy G62.9 and Acute pain of right shoulder M25.511 [facility] [address] [place] [id number] [place] [address] Dec, Type 2 diabetes mellitus with complication E11.8 [facility] [address] [place] [id number] [place] [address] Nov, 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 [address] [address] Oct, Type 2 diabetes mellitus with complication E11.8 [facility] [address] [place] [id number] [address] Sep, Type 2 diabetes mellitus with complication E11.8 ; Acute pain of right shoulder M25.511 and Prostate cancer screening Z12.5 [facility] [address] [place] [id number] [place] [address] Sep, [facility] [address] [place] [id number] [address] Jun, [facility] [address] [place] [id number] [place] [address] Jun, Muscle tension headache G44.209 and Bruxism F45.8 [facility] [address] [place] [id number] [place] [address] May, Type 2 diabetes mellitus with complication E11.8 ; Erectile dysfunction, unspecified erectile dysfunction type N52.9 and Neuropathy G62.9 [facility] [address] [place] [id number] [place] [address] Feb, [facility] [address] [address] Feb, Type 2 diabetes mellitus with complication E11.8 [facility] [address] [address] Dec, [facility] [address] [place] [id number] [place] [address] Dec, Type 2 diabetes mellitus with complication E11.8 [facility] [address] [address] Nov, Nausea and vomiting, unspecified intactability, vomiting of unspecified type R11.2 [facility] [address] [place] [id number] [place] [address] Oct, Neuropathy G62.9 and Type 2 diabetes mellitus with complication E11.8 [facility] [address] [place] [id number] [place] [address] Sep, [facility] [address] [place] [id number] [place] [address] Sep, [facility] [address] [place] [id number] [place] [address] Sep, Diabetes E11.9 [facility] [address] [place] [id number] [place] [address] Sep, [facility] [address] [place] [id number] [place] [address] Jul, [facility] [address] [place] [address] Jun, [facility] [address] [address] Jun, Secondary diabetes mellitus with neurological manifestations, not stated as uncontrolled, or unspecified 249.60 ; Other chronic pain 338.29 and Puncture wound 879.8 [facility] [address] [address] May, [facility] [address] [facility] [id number] [address] Apr, [facility] [address] [place] [id number] [place] [address] March, [facility] [address] [place] [id number] [address] Feb, [facility] [address] [place] [id number] [place] [address] Feb, [facility] [address] [address] Jan, [facility] [address] [address] Jan, [facility] [address] [address] Jan, [facility] [address] [address] Jan, [facility] [address], [place] [address] Jan, [facility] [address], [place] [address] Jan, [facility] [address] [address] Jan, [facility] [address], [place] [address] Jan, [facility] [address] [id number] [place] [address] Dec, [facility] [place] [facility] [address] [id number] [place] [address] Dec, [facility] [place] [facility] [address] [id number] [place] [address] Nov, [facility] [place] [facility] [address] [id number] [place] [address] Nov, [facility] [address] [id number] [place] [address] Nov, [facility] [place] [facility] [address] [id number] [place] [address] Nov, [facility] [address] [id number] [place] [address] Nov, [facility] [address] [id number] [place] [address] Nov, [facility] [place] [facility] [address] [id number] [place] [address] Oct, [facility] [place] [facility] [address] [id number] [place] [address] Oct, [facility] [place] [facility] [address] [id number] [place] [address] Oct, [facility] [place] [facility] [address] [id number] [place] [address] Oct, [facility] [place] [facility] [address] [id number] [place] [address] Oct, [facility] [place] [facility] [address] [id number] [place] [address] Oct, [facility] [place] [facility] [address] [id number] [place] [address] Oct, [facility] [place] [facility] [address] [id number] [address] Oct, [facility] [place] [facility] [address] [id number] [place] [address] Oct, [facility] [place] [facility] [address] [id number] [place] [address] Sep, [facility] [place] [facility] [address] [id number] [place] [address] Sep, [facility] [place] [facility] [address] [id number] [place] [address] Sep, [facility] [place] [facility] [address] [id number] [place] [address] Sep, [facility] [place] [facility] [address] [id number] [place] [address] Sep, [facility] [place] [facility] [address] [id number] [place] [address] Sep, [facility] [place] [facility] [address] [id number] [place] [address] Sep, [facility] [place] [facility] [address] [id number] [place] [address] Aug, [facility] [place] [facility] [address] [id number] [place] [address] Aug, [facility] [place] [facility] [address] [id number] [address] Aug, [facility] [place] [facility] [address] [id number] [address] 16 Aug, 2014 [facility] [place] [facility] [address] [id number] [place] [address] 14 Aug, 2014 [facility] [place] [facility] [address] [id number] [place] [address] Aug, [facility] [place] [facility] [address] [id number] [place] [address] Jul, [facility] [place] [facility] [address] [id number] [place] [address] 25 Jul, 2013 [facility] [place] [facility] [address] [id number] [place] [address] 25 Jul, 2013 [facility] [place] [facility] [address] [id number] [place] [address] 25 Jul, 2013 [facility] [place] [facility] [address] [id number] [place] [address] 25 Jul, 2013 [facility] [place] [facility] [address] [id number] [place] [address] 19 Jul, 2013 [facility] [place] [facility] [address] [id number] [place] [address] 16 Jul, 2013 [facility] [place] [facility] [address] [id number] [place] [address] 16 Jul, 2013 [facility] [place] [facility] [address] [id number] [place] [address] 08 Jul, 2013 [facility] [place] [facility] [address] [id number] [place] [address] 08 Jul, 2014 [facility] [place] [facility] [address] [id number] [place] [address] Jun, [facility] [place] [facility] [address] [id number] [place] [address] Jun, [facility] [place] [facility] [address] [id number] [place] [address] Jun, [facility] [place] [facility] [address] [id number] [place] [address] Jun, [facility] [place] [facility] [address] [id number] [place] [address] Jun, [facility] [place] [facility] [address] [id number] [place] [address] Jun, [facility] [place] [facility] [address] [id number] [place] [address] Jun, [facility] [place] [facility] [address] [id number] [place] [address] Jun, [facility] [place] [facility] [address] [id number] [place] [address] May, [facility] [place] [facility] [address] [id number] [place] [address] May, [facility] [place] [facility] [address] [id number] [place] [address] May, [facility] [place] [facility] [address] [id number] [place] [address] May, [facility] [place] [facility] [address] [id number] [place] [address] May, [facility] [place] [facility] [address] [id number] [place] [address] May, [facility] [place] [facility] [address] [id number] [place] [address] May, [facility] [place] [facility] [address] [id number] [place] [address] May, [facility] [place] [facility] [address] [id number] [place] [address] May, [facility] [place] [facility] [address] [id number] [place] [address] May, [facility] [place] [facility] [address] [id number] [place] [address] May, [facility] [place] [facility] [address] [id number] [place] [address] May, [facility] [place] [facility] [address] [id number] [place] [address] May, [facility] [place] [facility] [address] [id number] [place] [address] Apr, [facility] [place] [facility] [address] [id number] [place] [address] Apr, [facility] [place] [facility] [address] [id number] [place] [address] Apr, [facility] [place] [facility] [address] [id number] [place] [address] Apr, [facility] [place] [facility] [address] [id number] [place] [address] Apr, [facility] [place] [facility] [address] [id number] [place] [address] Apr, [facility] [place] [facility] [address] [id number] [place] [address] March, [facility] [place] [facility] [address] [id number] [place] [address] March, [facility] [place] [facility] [address] [id number] [place] [address] March, [facility] [place] [facility] [address] [id number] [place] [address] 30 Feb, 2014 [facility] [place] [facility] [address] [id number] [place] [address] Feb, [facility] [place] [facility] [address] [id number] [place] [address] Feb, [facility] [place] [facility] [address] [id number] [place] [address] Feb, [facility] [place] [facility] [address] [id number] [place] [address] Feb, [facility] [place] [facility] [address] [id number] [place] [address] Feb, [facility] [place] [facility] [address] [id number] [place] [address] Feb, [facility] [place] [facility] [address] [id number] [place] [address] 17 Feb, 2014 [facility] [place] [facility] [address] [id number] [place] [address] 17 Feb, 2014 [facility] [place] [facility] [address] [id number] [place] [address] Feb, [facility] [place] [facility] [address] [id number] [place] [address] Feb, [facility] [place] [facility] [address] [id number] [place] [address] Jan, [facility] [place] [facility] [address] [id number] [place] [address] Jan, [facility] [place] [facility] [address] [id number] [place] [address] Jan, [facility] [place] [facility] [address] [id number] [place] [address] Jan, [facility] [place] [facility] [address] [id number] [place] [address] Jan, [facility] [place] [facility] [address] [id number] [place] [address] Jan, [facility] [place] [facility] [address] [id number] [place] [address] Dec, [facility] [place] [facility] [address] [id number] [place] [address] Dec, [facility] [place] [facility] [address] [id number] [place] [address] Dec, [facility] [place] [facility] [address] [id number] [place] [address] Dec, [facility] [place] [facility] [address] [id number] [place] [address] Nov, [facility] [place] [facility] [address] [id number] [place] [address] Nov, [facility] [place] [facility] [address] [id number] [place] [address] Nov, [facility] [place] [facility] [address] [id number] [place] [address] Nov, [facility] [place] [facility] [address] [id number] [place] [address] Nov, [facility] [place] [facility] [address] [id number] [place] [address] Nov, [facility] [place] [facility] [address] [id number] [place] [address] Oct, [facility] [place] [facility] [address] [id number] [place] [address] Oct, [facility] [place] [facility] [address] [id number] [place] [address] Oct, [facility] [place] [facility] [address] [id number] [place] [address] Oct, [facility] [place] [facility] [address] [id number] [place] [address] Oct, [facility] [place] [facility] [address] [id number] [place] [address] Oct, [facility] [place] [facility] [address] [id number] [place] [address] Sep, [facility] [place] [facility] [address] [id number] [address] Sep, [facility] [place] [facility] [address] [id number] [address] Sep, [facility] [place] [facility] [address] [id number] [place] [address] Sep, [facility] [place] [facility] [address] [id number] [place] [address] Sep, [facility] [place] [facility] [address] [id number] [place] [address] Sep, [facility] [place] [facility] [address] [id number] [place] [address] 14 Aug, 2013 [facility] [address] [id number] [place] [address] 14 Aug, 2013 [facility] [place] [facility] [address] [id number] [place] [address] 07 Aug, 2013 [facility] [address] [id number] [place] [address] 07 Aug, 2013 [facility] [place] [facility] [address] [id number] [place] [address] 06 Jul, 2013 [facility] [address] [id number] [place] [address] Jul, [facility] [place] [facility] [address] [id number] [place] [address] Jun, [facility] [place] [facility] [address] [id number] [place] [address] Jun, [facility] [address] [id number] [place] [address] May, [facility] [place] [facility] [address] [id number] [place] [address] May, [facility] [address] [id number] [place] [address] May, [facility] [place] [facility] [address] [id number] [place] [address] May, [facility] [place] [facility] [address] [id number] [place] [address] May, [facility] [place] [facility] [address] [id number] [place] [address] May, [facility] [place] [facility] [address] [id number] [place] [address] Apr, [facility] [place] [facility] [address] [id number] [place] [address] Apr, [facility] [address] [id number] [place] [address] Apr, [facility] [place] [facility] [address] [id number] [place] [address] Apr, [facility] [place] [facility] [address] [id number] [place] [address] March, [facility] [place] [facility] [address] [id number] [place] [address] March, [facility] [place] [facility] [address] [id number] [place] [address] March, [facility] [place] [facility] [address] [id number] [place] [address] Feb, [facility] [place] [facility] [address] [id number] [place] [address] Feb, [facility] [place] [facility] [address] [id number] [place] [address] Jan, [facility] [place] [facility] [address] [id number] [place] [address] Dec, [facility] [place] [facility] [address] [id number] [place] [address] Dec, [facility] [place] [facility] [address] [id number] [place] [address] Dec, [facility] [place] [facility] [address] [id number] [place] [address] Dec, [facility] [place] [facility] [address] [id number] [place] [address] Dec, [facility] [place] [facility] [address] [id number] [place] [address] Nov, [facility] [place] [facility] [address] [id number] [place] [address] Nov, [facility] [place] [facility] [address] [id number] [place] [address] Nov, [facility] [address] [id number] [place] [address] Nov, [facility] [address] [id number] [place] [address] Nov, [facility] [address] [id number] [place] [address] Oct, [facility] [address] [id number] [place] [address] Oct, [facility] [address] [id number] [place] [address] Oct, [facility] [address] [id number] [place] [address] Oct, [facility] [address] [id number] [place] [address] Sep, [facility] [address] [id number] [place] [address] Sep, [facility] [address] [id number] [place] [address] Sep, [facility] [address] [id number] [place] [address] Sep, [facility] [place] [facility] [address] [id number] [place] [address] Sep, [facility] [address] [id number] [place] [address] Sep, [facility] [place] [facility] [address] [id number] [place] [address] Sep, [facility] [place] [facility] [address] [id number] [place] [address] Sep, [facility] [place] [facility] [address] [id number] [place] [address] Sep, [facility] [place] [facility] [address] [id number] [place] [address] Sep, [facility] [place] [facility] [address] [id number] [place] [address] Aug, [facility] [place] [facility] [address] [id number] [place] [address] Aug, [facility] [place] [facility] [address] [id number] [place] [address] Aug, [facility] [place] [facility] [address] [id number] [place] [address] Aug, [facility] [place] [facility] [address] [id number] [place] [address] Aug, [facility] [place] [facility] [address] [id number] [place] [address] Aug, [facility] [place] [facility] [address] [id number] [place] [address] Jul, [facility] [place] [facility] [address] [id number] [place] [address] Jun, [facility] [place] [facility] [address] [id number] [place] [address] Apr, [facility] [place] [facility] [address] [id number] [place] [address] Apr, [facility] [place] [facility] [address] [id number] [address] Apr, [facility] [place] [facility] [address] [id number] [place] [address] Apr, [facility] [place] [facility] [address] [id number] [place] [address] March, [facility] [place] [facility] [address] [id number] [place] [address] March, [facility] [place] [facility] [address] [id number] [address] March, [facility] [address] [id number] [place] [address] March, [facility] [place] [facility] [address] [id number] [place] [address] March, [facility] [place] [facility] [address] [id number] [place] [address] Feb, [facility] [place] [facility] [address] [id number] [place] [address] Feb, [facility] [place] [facility] [address] [id number] [place] [address] Feb, [facility] [address] [id number] [place] [address] Feb, [facility] [address] [id number] [place] [address] Jan, [facility] [place] [facility] [address] [facility] [id number] [place] [address] Jan, [facility] [address] [id number] [place] [address] Jan, [facility] [place] [facility] [address] [facility] [id number] [place] [address] 28 Dec, 2011 [facility] [place] [facility] [address] [facility] [id number] [place] [address] 15 Dec, 2011 [facility] [place] [facility] [address] [id number] [place] [address] 14 Dec, 2011 [facility] [place] [facility] [address] [id number] [place] [address] Dec, [facility] [place] [facility] [address] [id number] [place] [address] 08 Dec, 2011 [facility] [place] [facility] [address] [facility] [id number] [address] Nov, [facility] [address] [id number] [address] Nov, [facility] [address] [id number] [address] Nov, [facility] [id number] [address] Oct, [facility] [id number] [address] Oct, [facility] [id number] [address] Oct, [facility] [id number] [address] Sep, [facility] [id number] [address] Jul, [facility] [id number] [address] Apr, IMMUNIZATIONS No Known Immunizations SOCIAL HISTORY Never Assessed REASON FOR VISIT Refill request PLAN OF CARE VITAL SIGNS MEDICATIONS Medication Instructions Dosage Frequency Start Date End Date Duration Status Ibuprofen 800 MG Orally Three times a day 1 tablet with food or milk 8h Apr, 30 day(s) Active Baclofen 20 mg Orally 4 times a day 0.5 tablet [...]
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
--- OUTSIDE RECORDS SUMMARY | 2019-04-23 12:26 | XMS REPORT ---
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
--- OUTSIDE RECORDS SUMMARY | 2019-04-23 12:26 | XMS REPORT | Continuity of Care Document ---
Author Organization Unknown Address Unknown Allergies There is no data. Medications There is no data. Problems Date Dx Coded Attending Type Code Diagnosis Diagnosed By 12/16/2010 KUN ESCALANTE APRN S 250.00 DIABETES MELLITUS WITHOUT MENTION OF COMPLICATION TYPE II OR UNSPECIFIED TYPE NOT STATED UNCONTROLLED 12/16/2010 DESHAUN ESCALANTE APRNNDA S 272.4 OTHER AND UNSPECIFIED HYPERLIPIDEMIA 12/16/2010 AVA RAY KUN S 401.1 BENIGN ESSENTIAL HYPERTENSION 12/16/2010 AVA RAY KUN S 719.40 PAIN IN JOINT SITE UNSPECIFIED 12/16/2010 AVA RAY KUN S 250.00 DIABETES MELLITUS TYPE 2 12/16/2010 AVA RAY KUN S 272.4 OTHER AND UNSPECIFIED HYPERLIPIDEMIA 12/16/2010 AVA CLINIC ASSISTANT, KUN S 401.1 BENIGN ESSENTIAL HYPERTENSION 12/16/2010 AVA RAY KUN S 719.40 PAIN IN JOINT SITE UNSPECIFIED 12/16/2010 250.00 DIABETES MELLITUS TYPE 2 12/16/2010 272.4 OTHER AND UNSPECIFIED HYPERLIPIDEMIA 12/16/2010 401.1 BENIGN ESSENTIAL HYPERTENSION 12/16/2010 719.40 PAIN IN JOINT SITE UNSPECIFIED 12/16/2010 AVA RAY KUN S 250.00 DIABETES MELLITUS TYPE 2 12/16/2010 AVA RAY KUN S 272.4 OTHER AND UNSPECIFIED HYPERLIPIDEMIA 12/16/2010 AVA RAY KUN S 401.1 BENIGN ESSENTIAL HYPERTENSION 12/16/2010 AVA CLINIC ASSISTANT, KNU S 719.40 PAIN IN JOINT SITE UNSPECIFIED 12/16/2010 JACKSON DO, SEAN K 250.00 DIABETES MELLITUS TYPE 2 12/16/2010 JACKSON DO, SEAN K 272.4 OTHER AND UNSPECIFIED HYPERLIPIDEMIA 12/16/2010 JACKSON DO SEAN K 401.1 BENIGN ESSENTIAL HYPERTENSION 12/16/2010 SEAN JACKSON DO K 719.40 PAIN IN JOINT SITE UNSPECIFIED 12/16/2010 AVA CLINIC ASSISTANT, KUN S 250.00 DIABETES MELLITUS TYPE 2 12/16/2010 AVA CLINIC ASSISTANT, KUN S 272.4 OTHER AND UNSPECIFIED HYPERLIPIDEMIA 12/16/2010 AVA CLINIC ASSISTANT, KUN S 401.1 BENIGN ESSENTIAL HYPERTENSION 12/16/2010 AVA CLINIC ASSISTANT, KUN S 719.40 PAIN IN JOINT SITE UNSPECIFIED 12/16/2010 GISELL CLINIC ASSISTANT, ANALISA T 250.00 DIABETES MELLITUS TYPE 2 12/16/2010 GISELL CLINIC ASSISTANT, ANALISA T 272.4 OTHER AND UNSPECIFIED HYPERLIPIDEMIA 12/16/2010 GISELL CLINIC ASSISTANT, ANALISA T 401.1 BENIGN ESSENTIAL HYPERTENSION 12/16/2010 GISELL CLINIC ASSISTANT, ANALISA T 719.40 PAIN IN JOINT SITE UNSPECIFIED 12/16/2010 AVA CLINIC ASSISTANT, KUN S 250.00 DIABETES MELLITUS TYPE 2 12/16/2010 AVA CLINIC ASSISTANT, KUN S 272.4 OTHER AND UNSPECIFIED HYPERLIPIDEMIA 12/16/2010 AVA CLINIC ASSISTANT, KUN S 401.1 BENIGN ESSENTIAL HYPERTENSION 12/16/2010 AVA CLINIC ASSISTANT, KUN S 719.40 PAIN IN JOINT SITE UNSPECIFIED 12/16/2010 AVA CLINIC ASSISTANT, KUN S 250.00 DIABETES MELLITUS WITHOUT MENTION OF COMPLICATION TYPE II OR UNSPECIFIED TYPE NOT STATED UNCONTROLLED 12/16/2010 AVA CLINIC ASSISTANT, KUN S 272.4 OTHER AND UNSPECIFIED HYPERLIPIDEMIA 12/16/2010 AVA CLINIC ASSISTANT, KUN S 401.1 BENIGN ESSENTIAL HYPERTENSION 12/16/2010 AVA CLINIC ASSISTANT, KUN S 719.40 PAIN IN JOINT SITE UNSPECIFIED 12/16/2010 AVA CLINIC ASSISTANT, KUN S 250.00 DIABETES MELLITUS TYPE 2 12/16/2010 AVA CLINIC ASSISTANT, KUN S 272.4 OTHER AND UNSPECIFIED HYPERLIPIDEMIA 12/16/2010 AVA CLINIC ASSISTANT, KUN S 401.1 BENIGN ESSENTIAL HYPERTENSION 12/16/2010 AVA CLINIC ASSISTANT, KUN S 719.40 PAIN IN JOINT SITE UNSPECIFIED 12/16/2010 AVA CLINIC ASSISTANT, KUN S 250.00 DIABETES MELLITUS TYPE 2 12/16/2010 AVA CLINIC ASSISTANT, KUN S 272.4 OTHER AND UNSPECIFIED HYPERLIPIDEMIA 12/16/2010 AVA CLINIC ASSISTANT, KUN S 401.1 BENIGN ESSENTIAL HYPERTENSION 12/16/2010 AVA CLINIC ASSISTANT, KUN S 719.40 PAIN IN JOINT SITE UNSPECIFIED 01/18/2011 AVA CLINIC ASSISTANT, KUN S 296.80 BIPOLAR DISORDER UNSPECIFIED 01/18/2011 AVA CLINIC ASSISTANT, KUN S 296.80 BIPOLAR DISORDER UNSPECIFIED 01/18/2011 296.80 BIPOLAR DISORDER UNSPECIFIED 01/18/2011 AVA CLINIC ASSISTANT, KUN S 296.80 BIPOLAR DISORDER UNSPECIFIED 01/18/2011 JACKSON DO, SEAN K 296.80 BIPOLAR DISORDER UNSPECIFIED 01/18/2011 AVA CLINIC ASSISTANT, KUN S 296.80 BIPOLAR DISORDER UNSPECIFIED 01/18/2011 ANALISA JAMESON APRN 296.80 BIPOLAR DISORDER UNSPECIFIED 01/18/2011 AVA CLINIC ASSISTANT, KUN S 296.80 BIPOLAR DISORDER UNSPECIFIED 01/18/2011 AVA CLINIC ASSISTANT, KUN S 296.80 BIPOLAR DISORDER UNSPECIFIED 01/18/2011 AVA CLINIC ASSISTANT, KUN S 296.80 BIPOLAR DISORDER UNSPECIFIED 01/18/2011 AVA CLINIC ASSISTANT, KUN S 296.80 BIPOLAR DISORDER UNSPECIFIED 04/23/2011 AVA CLINIC ASSISTANT, KUN S 285.9 ANEMIA 04/23/2011 AVA CLINIC ASSISTANT, KUN S 285.9 ANEMIA 04/23/2011 285.9 ANEMIA 04/23/2011 AVA CLINIC ASSISTANT, KUN S 285.9 ANEMIA 04/23/2011 NINA JACKSON DOA K 285.9 ANEMIA 04/23/2011 AVA CLINIC ASSISTANT, KUN S 285.9 ANEMIA 04/23/2011 GISELL CLINIC ASSISTANTANALISA Machado 285.9 ANEMIA 04/23/2011 AVA CLINIC ASSISTANT, KUN S 285.9 ANEMIA 04/23/2011 AVA CLINIC ASSISTANT, KUN S 285.9 ANEMIA 04/23/2011 AVA CLINIC ASSISTANT, KUN S 285.9 ANEMIA 04/23/2011 AVA CLINIC ASSISTANT, KUN S 285.9 ANEMIA 07/25/2011 AVA CLINIC ASSISTANT, KUN S V03.82 PPV23 (PNEUMOVAX) DX 07/25/2011 AVA CLINIC ASSISTANT, KUN S V03.82 PPV23 (PNEUMOVAX) DX 07/25/2011 V03.82 PPV23 (PNEUMOVAX) DX 07/25/2011 AVA CLINIC ASSISTANT, KUN S V03.82 PPV23 (PNEUMOVAX) DX 07/25/2011 JACKSON DO, SEAN K V03.82 PPV23 (PNEUMOVAX) DX 07/25/2011 AVA CLINIC ASSISTANT, KUN S V03.82 PPV23 (PNEUMOVAX) DX 07/25/2011 ANALISA JAMESON APRN V03.82 PPV23 (PNEUMOVAX) DX 07/25/2011 AVA CLINIC ASSISTANT, KUN S V03.82 PPV23 (PNEUMOVAX) DX 07/25/2011 AVA CLINIC ASSISTANT, KUN S V03.82 PPV23 (PNEUMOVAX) DX 07/25/2011 AVA CLINIC ASSISTANT, KUN S V03.82 PPV23 (PNEUMOVAX) DX 07/25/2011 AVA ALONZON, KUN S V03.82 PPV23 (PNEUMOVAX) DX 11/07/2011 AVA CLINIC ASSISTANT, KUN S 496 CHRONIC AIRWAY OBSTRUCTION NOT ELSEWHERE CLASSIFIED 11/07/2011 AVA CLINIC ASSISTANT, KUN S 496 CHRONIC AIRWAY OBSTRUCTION NOT ELSEWHERE CLASSIFIED 11/07/2011 496 CHRONIC AIRWAY OBSTRUCTION NOT ELSEWHERE CLASSIFIED 11/07/2011 AVA CLINIC ASSISTANT, KUN S 496 CHRONIC AIRWAY OBSTRUCTION NOT ELSEWHERE CLASSIFIED 11/07/2011 JACKSON DO, SEAN K 496 CHRONIC AIRWAY OBSTRUCTION NOT ELSEWHERE CLASSIFIED 11/07/2011 AVA CLINIC ASSISTANT, KUN S 496 CHRONIC AIRWAY OBSTRUCTION NOT ELSEWHERE CLASSIFIED 11/07/2011 ANALISA JAMESON APRN 496 CHRONIC AIRWAY OBSTRUCTION NOT ELSEWHERE CLASSIFIED 11/07/2011 AVA CLINIC ASSISTANT, KUN S 496 CHRONIC AIRWAY OBSTRUCTION NOT ELSEWHERE CLASSIFIED 11/07/2011 AVA CLINIC ASSISTANT, KUN S 496 CHRONIC AIRWAY OBSTRUCTION NOT ELSEWHERE CLASSIFIED 11/07/2011 AVA CLINIC ASSISTANT, KUN S 496 CHRONIC AIRWAY OBSTRUCTION NOT ELSEWHERE CLASSIFIED 11/07/2011 AVA CLINIC ASSISTANT, KUN S 496 CHRONIC AIRWAY OBSTRUCTION NOT ELSEWHERE CLASSIFIED 12/26/2011 AVA CLINIC ASSISTANT, KUN S 296.50 MO BIPOLAR I DEPRESSED UNSPECIFIED 12/26/2011 AVA RAY, KUN S 296.50 MO BIPOLAR I DEPRESSED UNSPECIFIED 12/26/2011 296.50 MO BIPOLAR I DEPRESSED UNSPECIFIED 12/26/2011 AVA RAY, KUN S 296.50 MO BIPOLAR I DEPRESSED UNSPECIFIED 12/26/2011 JACKSON DO SEAN K 296.50 MO BIPOLAR I DEPRESSED UNSPECIFIED 12/26/2011 AVA RAY, KUN S 296.50 MO BIPOLAR I DEPRESSED UNSPECIFIED 12/26/2011 ANALISA JAMESON APRN 296.50 MO BIPOLAR I DEPRESSED UNSPECIFIED 12/26/2011 AVA RAY, KUN S 296.50 MO BIPOLAR I DEPRESSED UNSPECIFIED 12/26/2011 AVA RAY, KUN S 296.50 MO BIPOLAR I DEPRESSED UNSPECIFIED 12/26/2011 AVA RAY, KUN S 296.50 MO BIPOLAR I DEPRESSED UNSPECIFIED 12/26/2011 AVA RAY, KUN S 296.50 MO BIPOLAR I DEPRESSED UNSPECIFIED 01/15/2012 AVA RAY, KUN S 272.1 HYPERTRIGLYCERIDEMIA 01/15/2012 AVA RAY, KUN S 272.1 HYPERTRIGLYCERIDEMIA 01/15/2012 272.1 HYPERTRIGLYCERIDEMIA 01/15/2012 AVA RAY, KUN S 272.1 HYPERTRIGLYCERIDEMIA 01/15/2012 SEAN JACKSON DO K 272.1 HYPERTRIGLYCERIDEMIA 01/15/2012 AVA RAY, KUN S 272.1 HYPERTRIGLYCERIDEMIA 01/15/2012 ANALISA JAMESON APRN 272.1 HYPERTRIGLYCERIDEMIA 01/15/2012 AVA RAY, KUN S 272.1 HYPERTRIGLYCERIDEMIA 01/15/2012 AVA RAY, KUN S 272.1 HYPERTRIGLYCERIDEMIA 01/15/2012 AVA RAY KUN S 272.1 HYPERTRIGLYCERIDEMIA 01/15/2012 AVA RAY KUN S 272.1 HYPERTRIGLYCERIDEMIA 01/16/2012 DESHAUN ESCALANTE APRNNDA S 300.00 AN ANXIETY UNSPEC 01/16/2012 DESHAUN ESCALANTE APRNNDA S 300.00 AN ANXIETY UNSPEC 01/16/2012 300.00 AN ANXIETY UNSPEC 01/16/2012 DESHAUN ESCALANTE APRNNDA S 300.00 AN ANXIETY UNSPEC 01/16/2012 SEAN JACKSON DO 300.00 AN ANXIETY UNSPEC 01/16/2012 NOHELIA ESCALANTE APRNA S 300.00 AN ANXIETY UNSPEC 01/16/2012 ANALISA JAMESON APRN 300.00 AN ANXIETY UNSPEC 01/16/2012 DESHAUN ESCALANTE APRNNDA S 300.00 AN ANXIETY UNSPEC 01/16/2012 DESHAUN ESCALANTE APRNNDA S 300.00 AN ANXIETY UNSPEC 01/16/2012 DESHAUN ESCALANTE APRNNDA S 300.00 AN ANXIETY UNSPEC 01/16/2012 DESHAUN ESCALANTE APRNNDA S 300.00 AN ANXIETY UNSPEC 02/16/2012 DESHAUN ESCALANTE APRNNDA S 300.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 02/16/2012 EDSHAUN ESCALANTE APRNNDA S 300.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 02/16/2012 300.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 02/16/2012 NOHELIA ESCALANTE APRNA S 300.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 02/16/2012 SEAN JACKSON DO 300.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 02/16/2012 DESHAUN ESCALANTE APRNNDA S 300.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 02/16/2012 ANALISA JAMESON APRN 300.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 02/16/2012 DESHAUN ESCALANTE APRNNDA S 300.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 02/16/2012 DESHAUN ESCALANTE APRNNDA S 300.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 02/16/2012 DESHAUN ESCALANTE APRNNDA S 300.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 02/16/2012 DESHAUN ESCALANTE APRNNDA S 300.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 05/22/2013 DESHAUN ESCALANTE APRNNDA S 338.29 CHRONIC PAIN 05/22/2013 SEAN JACKSON DO 338.29 CHRONIC PAIN 05/22/2013 DESHAUN ESCALANTE APRNNDA S 338.29 CHRONIC PAIN 05/22/2013 ANALISA JAMESON APRN 338.29 CHRONIC PAIN 05/22/2013 DESHAUN ESCALANTE APRNNDA S 338.29 CHRONIC PAIN 05/22/2013 DESHAUN ESCALANTE APRNNDA S 338.29 CHRONIC PAIN 05/22/2013 DESHAUN ESCAALNTE APRNNDA S 338.29 CHRONIC PAIN 09/18/2013 SEAN JACKSON DO Veronica 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 UNCONTROLLED OR UNSPECIFIED 09/18/2013 AVA CLINIC ASSISTANT, KUN S 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 UNCONTROLLED OR UNSPECIFIED 09/18/2013 GISELL RAY, ANALISA T 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 UNCONTROLLED OR UNSPECIFIED 09/18/2013 AVA CLINIC ASSISTANT, KUN S 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 UNCONTROLLED OR UNSPECIFIED 09/18/2013 AVA CLINIC ASSISTANT, KUN S 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 UNCONTROLLED OR UNSPECIFIED 09/18/2013 AVA CLINIC ASSISTANT, KUN S 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 UNCONTROLLED OR UNSPECIFIED 02/24/2014 AVA CLINIC ASSISTANT, KUN S 302.72 ERECTILE DISORDER 02/24/2014 AVA CLINIC ASSISTANT, KUN S 356.9 NEUROPATHY 02/24/2014 AVA CLINIC ASSISTANT, KUN S 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 02/24/2014 AVA CLINIC ASSISTANT, KUN S 788.43 NOCTURIA 02/24/2014 ANALISA JAMESON APRN T 302.72 ERECTILE DISORDER 02/24/2014 ANALISA JAMESON APRN T 356.9 NEUROPATHY 02/24/2014 ANALISA JAMESON APRN T 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 02/24/2014 ANALISA JAMESON APRN T 788.43 NOCTURIA 02/24/2014 AVA CLINIC ASSISTANT, KUN S 302.72 ERECTILE DISORDER 02/24/2014 AVA CLINIC ASSISTANT, KUN S 356.9 NEUROPATHY 02/24/2014 AVA CLINIC ASSISTANT, KUN S 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 02/24/2014 AVA CLINIC ASSISTANT, KUN S 788.43 NOCTURIA 02/24/2014 AVA CLINIC ASSISTANT, KUN S 302.72 ERECTILE DISORDER 02/24/2014 AVA CLINIC ASSISTANT, KUN S 356.9 NEUROPATHY 02/24/2014 AVA CLINIC ASSISTANT, KUN S 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 02/24/2014 AVA CLINIC ASSISTANT, KUN S 788.43 NOCTURIA 02/24/2014 AVA CLINIC ASSISTANT, KUN S 302.72 ERECTILE DISORDER 02/24/2014 DESHAUN ESCALANTE APRNNDA S 356.9 NEUROPATHY 02/24/2014 DESHAUN ESCALANTE APRNNDA S 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 02/24/2014 DESHAUN ESCALANTE APRNNDA S 788.43 NOCTURIA 04/22/2014 ANALISA JAMESON APRN T 601.9 PROSTATITIS UNSPECIFIED 04/22/2014 ANALISA JAMESON APRN T V76.44 PROSTATE SCREENING 04/22/2014 DESHAUN ESCALANTE APRNNDA S 601.9 PROSTATITIS UNSPECIFIED 04/22/2014 DESHAUN ESCALANTE APRNNDA S V76.44 PROSTATE SCREENING 04/22/2014 DESHAUN ESCALANTE APRNNDA S 601.9 PROSTATITIS UNSPECIFIED 04/22/2014 AVA RAY KUN S V76.44 PROSTATE SCREENING 04/22/2014 DESHAUN ESCALANTE APRNNDA S 601.9 PROSTATITIS UNSPECIFIED 04/22/2014 DESHAUN ESCALANTE APRNNDA S V76.44 PROSTATE SCREENING Procedures Code [place] [address] URINE DRUG SCREEN (IN-HOUSE) 09/17/2012 16109 A1C (IN-HOUSE) 01/01/2013 00507 ROUTINE VENIPUNCTURE 05/05/2013 40495 A1C (IN-HOUSE) 05/05/2013 39380 CMP 05/05/2013 [id number] GFR CALC (RESULT ONLY) 05/05/2013 21392 LIPID PANEL 05/05/2013 39956 A1C (IN-HOUSE) 09/18/2013 91350 MICRO ALBUMIN-IN HOUSE 09/18/2013 17358 ROUTINE VENIPUNCTURE 02/24/2014 02944 A1C (IN-HOUSE) 02/24/2014 06677 CBC 02/24/2014 19001 CMP 02/24/2014 [id number] GFR CALC (RESULT ONLY) 02/24/2014 63256 LIPID PANEL 02/24/2014 32531 PSA TOTAL 02/24/2014 95665 TSH 02/24/2014 AMERITOX AMERITOX DRUG SCREEN 02/26/2014 88910 ROUTINE VENIPUNCTURE 06/19/2014 67588 A1C (IN-HOUSE) 06/19/2014 29098 LIPID PANEL 06/19/2014 29861 MICRO ALBUMIN-IN HOUSE 06/23/2014 05075 MICROALBUMIN 06/23/2014 37052 ROUTINE VENIPUNCTURE 10/12/2014 32430 A1C (IN-HOUSE) 10/12/2014 31363 LIPID PANEL 10/12/2014 [employer] DRUG SCREEN 10/19/2014 [employer] DRUG SCREEN 02/17/2015 76655 A1C (IN-HOUSE) 02/17/2015 34189 MICRO ALBUMIN-IN HOUSE 02/17/2015 Results Test Result Range CULTURE, ANAEROBIC AND AEROBIC - 10/24/17 11:28 CULTURE, ANAEROBIC BACTERIA W/GRAM STAIN SEE NOTE NRG CULTURE, AEROBIC BACTERIA SEE NOTE NRG A1C - 10/21/18 10:33 HEMOGLOBIN A1c 6.3 % of total Hgb <5.7 Encounters ACCT No. Visit Date/Time Discharge Status Pt. Type Provider Facility Loc./Unit Complaint [id number] 04/03/2019 15:15:00 04/03/2019 23:59:59 CLS Outpatient KUN ESCALANTE APRN [facility] [id number] 10/21/2018 09:00:00 Document Registration [id number] 10/24/2017 10:10:00 Document Registration [id number] 02/17/2015 08:56:00 02/17/2015 23:59:59 CLS Outpatient KUN ESCALANTE APRN [id number] 10/14/2014 15:46:00 10/14/2014 23:59:59 CLS Outpatient KUN ESCALANTE APRN [id number] 06/23/2014 09:13:00 06/23/2014 23:59:59 CLS Outpatient KUN ESCALANTE APRN [id number] 04/22/2014 09:49:00 04/22/2014 23:59:59 CLS Outpatient ANALISA JAMESON APRN [id number] 02/24/2014 14:17:00 02/24/2014 23:59:59 CLS Outpatient KUN ESCALANTE APRN [id number] 09/18/2013 08:58:00 09/18/2013 23:59:59 CLS Outpatient SEAN JACKSON DO [id number] 05/22/2013 12:51:00 05/22/2013 23:59:59 CLS Outpatient KUN ESCALANTE APRN [id number] 01/01/2013 15:23:00 01/01/2013 23:59:59 CLS Outpatient KUN ESCALANTE APRN [id number] 09/17/2012 09:05:00 09/17/2012 23:59:59 [facility] Outpatient KUN ESCALANTE APRN [id number] 09/06/2012 09:09:00 09/06/2012 23:59:59 [facility] Outpatient KUN ESCALANTE APRN [id number] 05/05/2013 09:08:00 Document Registration
[2019-04-23 12:38] LABS: BUN/CREATININE RATIO 8; CALCIUM 9.2 MG/DL (8.5-10.1); CARBON DIOXIDE 28 MMOL/L (21-32); CHLORIDE 95 MMOL/L (98-107); CREATININE SERUM 0.85 MG/DL (0.60-1.30); GFR ESTIMATED > 60; GLUCOSE 102 MG/DL (70-105); POTASSIUM 4.6 MMOL/L (3.6-5.0); SODIUM 137 MMOL/L (135-145)
[2019-04-23 12:39] LABS: ALANINE AMINOTRANSFERASE 17 U/L (0-55); ALBUMIN 4.6 GM/DL (3.2-4.5); ALKALINE PHOSPHATASE 78 U/L (40-136); BILIRUBIN,TOTAL 0.5 MG/DL (0.1-1.0); TOTAL PROTEIN 7.2 GM/DL (6.4-8.2)
--- NOTE | 2019-04-23 12:49 | NUR ---
This RN is present in the room while Doctor performed scrotum exam.
[2019-04-23] MEDS ORDERED: fentaNYL INJECTION 100 MCG/2 ML AMP IVP ONE (13:00)
[2019-04-23 13:03] LABS: CLARITY,URINE CLEAR; COLOR,URINE YELLOW; GLUCOSE, URINE (UA) 2+ (NEGATIVE); PROTEIN,URINE 1+ (NEGATIVE)
[2019-04-23 13:04] LABS: BACTERIA,URINE NEGATIVE /HPF; BILIRUBIN,URINE NEGATIVE (NEGATIVE); KETONES,URINE NEGATIVE (NEGATIVE); LEUKOCYTE ESTERASE ,URINE NEGATIVE (NEGATIVE); NITRITE,URINE NEGATIVE (NEGATIVE); SQUAMOUS EPITHELIAL CELL,UR 0-2 /HPF; UROBILINOGEN,URINE 0.2 MG/DL (NORMAL); WBC,URINE 0-2 /HPF
--- NOTE | 2019-04-23 13:37 | Diagnostic Imaging Report ---
PROCEDURE: CT abdomen and pelvis without contrast. TECHNIQUE: Multiple contiguous axial images were obtained through the abdomen and pelvis without the use of intravenous contrast. Auto Exposure Controls were utilized during the CT exam to meet ALARA standards for radiation dose reduction. INDICATION: Sudden onset left flank pain radiating down the left testicle, symptoms began three hours ago. FINDINGS: There is no hydroureteronephrosis and there are no opaque urinary tract calculi. The ureters are nondilated. There is no perinephric or periureteric edema. The unopacified urinary bladder is unremarkable. No stone within the bladder lumen. Liver density is consistent with at least mild steatosis. The liver appears nonfocal at this nonenhanced exam. There is no biliary abnormality. Spleen, adrenals, and pancreas are negative. The aorta is nonaneurysmal. There is no bowel obstruction. There are few noninflamed sigmoidal diverticula. There is a borderline distal colonic and sigmoid constipation, but no brady obstruction or impaction. There is no appendicitis. No mass, fluid collection, or hernia along the inguinal canals. No ascites, abscess, hematoma, or fluid collection. There is a fatty umbilical hernia noninflamed. Lung bases are nonacute. There are degenerative changes to the bony structures with no acute osseous abnormality identified. IMPRESSION: 1. Unobstructed nonfocal and nonacute urinary tracts. 2. Noninflamed chronic-appearing fatty umbilical hernia. 3. Mild constipation without overt obstruction or impaction. No evidence for diverticulitis or appendicitis. 4. No acute-appearing abnormality. Dictated by: Dictated on workstation # [id number]
[2019-04-23] MEDS ORDERED: D5 NS 1000 ML IV SOLUTION 1,000 ML IV ONE (14:32)
[2019-04-23] MEDS ORDERED: D5 NS 1000 ML IV SOLUTION 1,000 ML IV STA (14:37)
--- NOTE | 2019-04-23 14:57 | NUR ---
Report to [facility] for ED to ED transfer. Pt rec'd 700 ml D5NS prior to maintaining SL for transport. Pt is diabetic and accucheck 95 at 1429.
--- NOTE | 2019-04-23 15:05 | NUR ---
Pt departing as transfer to ED [facility] via POV with . SL wrapped in Coban, intact and patent.
[2019-04-23 16:22] VITALS: BP 149/99
--- NOTE | 2019-04-23 17:13 | Diagnostic Imaging Report ---
INDICATION: Left testicle, leg and groin pain. TECHNIQUE: Real-time grayscale sonographic imaging and color vascular evaluation of both testicles was performed. CORRELATION STUDY: None FINDINGS: RIGHT testicle measures 3.4 x 1.8 x 2.8 cm. LEFT testicle measures 4.0 x 3.5 x 3.3 cm. The testicles appear normal in echogenicity. No focal testicular mass demonstrated. There is vascular flow to the testicles. Small right epididymal cyst present largest at 3 mm maximum size. Small bilateral hydroceles. No definitive evidence for underlying inguinal hernia. IMPRESSION: 1. Unremarkable scrotal ultrasound examination. Small bilateral hydroceles. Dictated by: Dictated on workstation # [id number]
[2019-04-23] MEDS ORDERED: predniSONE 20 MG TAB PO ONE (17:30)
[2019-04-23] MEDS ORDERED: HYDROcodone/APAP 7.5 MG/325 MG (LORTAB, LORCET PLUS) TABLET PO ONE (17:30)
[2019-04-23] MEDS ORDERED: PRD20T PO (17:49)
[2019-04-23] MEDS ORDERED: ACHD5005 PO (17:49)
== END 2019-04-23 17:59 | disposition home or self-care (01) ==
LOC: ER FS 11:48 → ER 17:59
DX: N50.812 Left testicular pain (principal); M54.16 Radiculopathy, lumbar region; F31.9 Bipolar disorder, unspecified
CPT/HCPCS: 36415; 74176; 76870; 80053; 81000; 82962; 85025; 96374; 96375

== ENCOUNTER → 2019-06-12 | Outpatient (CLI) | payer OTHER ==
[~2019-06-12] MED LIST: ACHD5005 PO; ASPI-983 PO; ASPI-999 PO; ATOR40TA70 PO; CARI1.5C PO; CARV6.252 PO; CLOP75TA28 PO; CYCL10TA9 PO; DAPA10TA PO; DIAZ5TAB3 PO; DIVA500T PO; HYDR-3820 PO; LOSA25TA41 PO; METF-478 PO; NITR0.4T42 SL; PANT40TA3 PO; PRD20T PO; PREG150C PO; SERT100T8 PO; SILD100T PO
== END ==
LOC: RAD 06-06 14:46
PROVIDERS: ATTEND Nurse Practitioner Community Health
DX: M54.16 Radiculopathy, lumbar region (principal); Z53.8 Procedure and treatment not carried out for other reasons

== ENCOUNTER 2019-06-22 21:07 | Emergency (ER) | payer SELFPAY ==
[~2019-06-22] VITALS: Ht 172.7 cm; Wt 115.7 kg
[~2019-06-22 21:07] MED LIST changes: -ASPI-983 PO; -ASPI-999 PO; -ATOR40TA70 PO; -CARI1.5C PO; -CARV6.252 PO; -CLOP75TA28 PO; -CYCL10TA9 PO; -DAPA10TA PO; -DIAZ5TAB3 PO; -DIVA500T PO; -HYDR-3820 PO; -LOSA25TA41 PO; -METF-478 PO; -NITR0.4T42 SL; -PANT40TA3 PO; -PREG150C PO; -SERT100T8 PO; -SILD100T PO
--- OUTSIDE RECORDS SUMMARY | 2019-06-22 21:14 | XMS REPORT ---
Author Author KUN ESCALANTE Organization [facility] Address [address] [place] [address] Care Team Providers Care Tire Spotter Name Role Phone KUN ESCALANTE Unavailable PROBLEMS Type Condition ICD9-CM Code [id number] Code Onset Dates Condition Status SNOMED Code Problem Lumbago with sciatica, right side M54.41 Active 619245858 Problem Muscle pain M79.1 Active 99062799 Problem Type 2 diabetes mellitus with complication E11.8 Active 67707962 Problem Neuropathy G62.9 Active 354869539 Problem Bipolar 1 disorder F31.9 Active 731890075 Problem Hypertriglyceridemia E78.1 Active [id number] ALLERGIES No Information ENCOUNTERS Encounter Location Date Diagnosis [facility] [id number] [place] [address] Jun, [facility] [id number] [place] [address] Jun, [facility] [id number] [place] [address] May, Lumbar back pain with radiculopathy affecting right lower extremity M54.16 ; Cervicalgia M54.2 ; History of streptococcal infection Z86.19 ; Hypertriglyceridemia E78.1 ; Bipolar 1 disorder F31.9 and Does not have health insurance Z59.8 [facility] [id number] [place] [address] 18 May, 2019 Radiculopathy of arm M54.10 [facility] [id number] [place] [address] 15 May, 2019 [facility] [id number] [place] [address] 10 May, 2019 Fever R50.9 [facility] [address] [address] May, [facility] [id number] [place] [address] March, Type 2 diabetes mellitus with complication E11.8 [facility] [id number] [place] [address] March, Patellar tendinitis, right knee M76.51 [facility] [id number] [place] [address] March, Radiculopathy of arm M54.10 [facility] [id number] [place] [address] March, [facility] [id number] [place] [address] 15 Mar, 2019 Type 2 diabetes mellitus with complication E11.8 ; Hoarseness of voice R49.0 and Acute pain of right knee M25.561 [facility] [id number] [place] [address] March, [facility] [id number] [place] [address] March, [facility] [id number] [place] [address] Feb, Bipolar 1 disorder F31.9 [facility] [id number] [place] [address] Feb, Bipolar 1 disorder F31.9 [facility] [id number] [place] [address] Jan, [facility] [id number] [place] [address] 11 Dec, 2018 Type 2 diabetes mellitus with complication E11.8 [facility] [id number] [place] [address] Dec, Acute non-recurrent maxillary sinusitis J01.00 [facility] [id number] [place] [address] Nov, Bipolar 1 disorder F31.9 ; Rash R21 ; Acute non-recurrent maxillary sinusitis J01.00 and Type 2 diabetes mellitus with complication E11.8 [facility] [id number] [place] [address] Oct, Hypertriglyceridemia E78.1 [facility] [address] [address] Oct, Type 2 diabetes mellitus with complication E11.8 and Fatigue due to excessive exertion, initial encounter T73.3XXA [facility] [address] [address] Oct, [place] [address] [address] Sep, [facility] [address] [address] Sep, Radiculopathy of arm M54.10 [facility] [id number] [place] [address] Sep, [facility] [id number] [place] [address] May, [facility] [id number] [place] [address] May, Radiculopathy of arm M54.10 [facility] [id number] [place] [address] May, [facility] [id number] [place] [address] May, [facility] [id number] [place] [address] May, Radiculopathy of arm M54.10 [facility] [address] [address] Apr, Radiculopathy of arm M54.10 [facility] [id number] [address] March, Radiculopathy of arm M54.10 [facility] [id number] [address] March, Radiculopathy of arm M54.10 [facility] [id number] [place] [address] March, Radiculopathy of arm M54.10 [facility] [id number] [place] [address] March, Type 2 diabetes mellitus with complication E11.8 ; Radiculopathy of arm M54.10 and Muscle pain M79.1 [facility] [id number] [place] [address] Feb, Muscle pain M79.1 [facility] [id number] [place] [address] Jan, Type 2 diabetes mellitus with complication E11.8 [facility] [address] [address] Jan, [facility] [address] [address] Dec, Muscle pain M79.1 [facility] [address] [place] [address] Nov, Muscle pain M79.1 and Acute pain of right shoulder M25.511 [facility] [address] [address] Nov, [facility] [address] [address] Nov, [facility] [id number] [place] [address] Nov, Type 2 diabetes mellitus with complication E11.8 [facility] [id number] [place] [address] Nov, Impingement syndrome of left shoulder M75.42 and Impingement syndrome of right shoulder M75.41 [place] [id number] [place] [address] Oct, Type 2 diabetes mellitus with complication E11.8 ; Acute pain of right shoulder M25.511 ; Abscess of finger of right hand L02.511 and Umbilical hernia without obstruction and without gangrene K42.9 [place] [id number] [place] [address] Oct, [facility] [id number] [place] [address] Oct, Mucoid otitis media, unspecified chronicity, unspecified laterality H65.90 and Abscess of finger of right hand L02.511 [place] [id number] [place] [address] Oct, [place] [id number] [place] [address] Sep, [place] [id number] [place] [address] 24 Aug, 2017 [place] [id number] [place] [address] 14 Jul, 2017 Sprain of right acromioclavicular ligament, initial encounter S43.51XA ; Impingement syndrome of left shoulder M75.42 and Impingement syndrome of right shoulder M75.41 [place] [id number] [place] [address] 14 Jul, 2017 Type 2 diabetes mellitus with complication E11.8 [place] [id number] [place] [address] Jun, [place] [address] [address] Jun, Type 2 diabetes mellitus with complication E11.8 ; Lumbago with sciatica, right side M54.41 ; 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 and Pain in left shoulder M25.512 [facility] [id number] [address] May, [facility] [id number] [place] [address] May, [facility] [id number] [place] [address] Apr, Lumbago with sciatica, right side M54.41 and Neck pain on left side M54.2 [facility] [id number] [place] [address] Apr, [facility] [id number] [place] [address] Apr, [facility] [id number] [place] [address] March, [facility] [id number] [place] [address] March, [facility] [id number] [address] Feb, Acute pain of right shoulder M25.511 [facility] [id number] [address] Feb, [facility] [id number] [place] [address] Feb, [facility] [id number] [place] [address] Feb, Type 2 diabetes mellitus with complication E11.8 ; Neuropathy G62.9 and Acute pain of right shoulder M25.511 [facility] [id number] [address] Dec, Type 2 diabetes mellitus with complication E11.8 [facility] [id number] [place] [address] Nov, [facility] [id number] [place] [address] Oct, 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 [facility] [id number] [place] [address] Oct, Type 2 diabetes mellitus with complication E11.8 [facility] [id number] [place] [address] Sep, Type 2 diabetes mellitus with complication E11.8 ; Acute pain of right shoulder M25.511 and Prostate cancer screening Z12.5 [facility] [id number] [place] [address] Sep, [facility] [id number] [place] [address] Jun, [facility] [id number] [place] [address] Jun, Muscle tension headache G44.209 and Bruxism F45.8 [facility] [id number] [place] [address] May, Type 2 diabetes mellitus with complication E11.8 ; Erectile dysfunction, unspecified erectile dysfunction type N52.9 and Neuropathy G62.9 [facility] [id number] [place] [address] Feb, [facility] [id number] [place] [address] Feb, Type 2 diabetes mellitus with complication E11.8 [facility] [id number] [place] [address] Dec, [facility] [address] [place] [address] Dec, Type 2 diabetes mellitus with complication E11.8 [facility] [id number] [place] [address] Nov, Nausea and vomiting, unspecified intactability, vomiting of unspecified type R11.2 [facility] [id number] [place] [address] Oct, Neuropathy G62.9 and Type 2 diabetes mellitus with complication E11.8 [facility] [id number] [place] [address] Sep, [facility] [id number] [place] [address] Sep, [facility] [id number] [place] [address] Sep, Diabetes E11.9 [facility] [address] [address] Sep, [facility] [id number] [place] [address] Jul, [facility] [id number] [place] [address] Jun, [facility] [id number] [place] [address] Jun, Secondary diabetes mellitus with neurological manifestations, not stated as uncontrolled, or unspecified 249.60 ; Other chronic pain 338.29 and Puncture wound 879.8 [facility] [id number] [place] [address] May, [facility] [id number] [place] [address] Apr, [facility] [id number] [place] [address] March, [facility] [id number] [place] [address] Feb, [facility] [place] [facility] [address] [id number] [place] [address] Feb, [facility] [place] [facility] [address] [id number] [place] [address] Jan, [facility] [place] [facility] [address] [id number] [place] [address] Jan, [facility] [place] [facility] [address] [id number] [place] [address] Jan, [facility] [place] [facility] [address] [id number] [place] [address] Jan, [facility] [place] [facility] [address] [id number] [place] [address] Jan, [facility] [place] [facility] [address] [id number] [place] [address] Jan, [facility] [place] [facility] [address] [id number] [place] [address] Jan, [facility] [place] [facility] [address] [id number] [place] [address] Jan, [facility] [place] [facility] [address] [id number] [place] [address] Dec, [facility] [place] [facility] [address] [id number] [place] [address] Dec, [facility] [place] [facility] [address] [id number] [place] [address] Nov, [facility] [place] [facility] [address] [id number] [place] [address] Nov, [facility] [place] [facility] [address] [id number] [place] [address] Nov, [facility] [place] [facility] [address] [id number] [place] [address] Nov, [facility] [place] [facility] [address] [id number] [place] [address] Nov, [facility] [place] [facility] [address] [id number] [place] [address] Nov, [facility] [place] [facility] [address] [id number] [place] [address] Oct, [facility] [place] [facility] [address] [id number] [place] [address] Oct, [facility] [place] [facility] [address] [id number] [place] [address] Oct, [facility] [place] [facility] [address] [id number] [place] [address] Oct, [facility] [place] [facility] [address] [id number] [place] [address] Oct, [facility] [place] [facility] [address] [id number] [place] [address] Oct, [facility] [place] [facility] [address] [id number] [place] [address] Oct, [facility] [place] [facility] [address] [id number] [place] [address] Oct, [facility] [place] [facility] [address] [id number] [place] [address] Oct, [facility] [place] [facility] [address] [id number] [place] [address] Sep, [facility] [place] [facility] [address] [id number] [place] [address] Sep, [facility] [place] [facility] [address] [id number] [place] [address] Sep, [facility] [place] [facility] [address] [id number] [place] [address] Sep, [facility] [place] [facility] [address] [id number] [place] [address] Sep, [facility] [place] [facility] [address] [id number] [place] [address] Sep, [facility] [place] [facility] [address] [id number] [place] [address] Sep, [facility] [place] [facility] [address] [id number] [place] [address] Aug, [facility] [place] [facility] [address] [id number] [place] [address] Aug, [facility] [place] [facility] [address] [id number] [place] [address] Aug, [facility] [place] [facility] [address] [id number] [place] [address] 16 Aug, 2014 [facility] [place] [facility] [address] [id number] [place] [address] Aug, [facility] [place] [facility] [address] [id number] [address] 14 Aug, 2014 [facility] [place] [facility] [address] [id number] [place] [address] 26 Jul, 2014 [facility] [place] [facility] [address] [id number] [place] [address] 25 Jul, 2014 [facility] [place] [facility] [address] [id number] [address] 25 Jul, 2013 [facility] [place] [facility] [address] [id number] [address] 25 Sep, 2013 [facility] [place] [facility] [address] [id number] [place] [address] 25 Jul, 2013 [facility] [place] [facility] [address] [id number] [address] 19 Sep, 2013 [facility] [place] [facility] [address] [id number] [address] 16 Jul, 2013 [facility] [place] [facility] [address] [id number] [place] [address] 16 Jul, 2014 [facility] [place] [facility] [address] [id number] [place] [address] Jul, [facility] [place] [facility] [address] [id number] [place] [address] Jul, [facility] [place] [facility] [address] [id number] [place] [address] Jun, [facility] [place] [facility] [address] [id number] [place] [address] Jun, [facility] [place] [facility] [address] [id number] [place] [address] Jun, [facility] [place] [facility] [address] [id number] [place] [address] Jun, [facility] [place] [facility] [address] [id number] [place] [address] Jun, [facility] [place] [facility] [address] [id number] [place] [address] Jun, [facility] [place] [facility] [address] [id number] [place] [address] Jun, [facility] [place] [facility] [address] [id number] [place] [address] Jun, [facility] [place] [facility] [address] [id number] [place] [address] May, [facility] [place] [facility] [address] [id number] [place] [address] May, [facility] [place] [facility] [address] [id number] [place] [address] May, [facility] [place] [facility] [address] [id number] [place] [address] May, [facility] [place] [facility] [address] [id number] [place] [address] May, [facility] [place] [facility] [address] [id number] [place] [address] May, [facility] [place] [facility] [address] [id number] [place] [address] May, [facility] [place] [facility] [address] [id number] [place] [address] May, [facility] [place] [facility] [address] [id number] [place] [address] May, [facility] [place] [facility] [address] [id number] [place] [address] May, [facility] [place] [facility] [address] [id number] [place] [address] May, [facility] [place] [facility] [address] [id number] [place] [address] May, [facility] [place] [facility] [address] [id number] [place] [address] May, [facility] [place] [facility] [address] [id number] [place] [address] Apr, [facility] [place] [facility] [address] [id number] [place] [address] Apr, [facility] [place] [facility] [address] [id number] [place] [address] Apr, [facility] [place] [facility] [address] [id number] [place] [address] Apr, [facility] [place] [facility] [address] [id number] [place] [address] Apr, [facility] [place] [facility] [address] [id number] [place] [address] Apr, [facility] [place] [facility] [address] [id number] [place] [address] March, [facility] [place] [facility] [address] [id number] [place] [address] March, [facility] [place] [facility] [address] [id number] [place] [address] March, [facility] [place] [facility] [address] [id number] [place] [address] Feb, [facility] [place] [facility] [address] [id number] [place] [address] Feb, [facility] [place] [facility] [address] [id number] [place] [address] Feb, [facility] [place] [facility] [address] [id number] [place] [address] Feb, [facility] [place] [facility] [address] [id number] [place] [address] Feb, [facility] [place] [facility] [address] [id number] [place] [address] Feb, [facility] [place] [facility] [address] [id number] [place] [address] Feb, [facility] [place] [facility] [address] [id number] [place] [address] Feb, [facility] [place] [facility] [address] [id number] [place] [address] Feb, [facility] [place] [facility] [address] [id number] [place] [address] Feb, [facility] [place] [facility] [address] [id number] [place] [address] Feb, [facility] [place] [facility] [address] [id number] [place] [address] Jan, [facility] [place] [facility] [address] [id number] [place] [address] Jan, [facility] [place] [facility] [address] [id number] [place] [address] Jan, [facility] [place] [facility] [address] [id number] [place] [address] Jan, [facility] [place] [facility] [address] [id number] [place] [address] Jan, [facility] [place] [facility] [address] [id number] [place] [address] Jan, [facility] [place] [facility] [address] [id number] [place] [address] Dec, [facility] [place] [facility] [address] [id number] [place] [address] Dec, [facility] [place] [facility] [address] [id number] [place] [address] Dec, [facility] [place] [facility] [address] [id number] [place] [address] Dec, [facility] [place] [facility] [address] [id number] [place] [address] Nov, [facility] [place] [facility] [address] [id number] [place] [address] Nov, [facility] [place] [facility] [address] [id number] [place] [address] Nov, [facility] [place] [facility] [address] [id number] [place] [address] Nov, [facility] [place] [facility] [address] [id number] [place] [address] Nov, [facility] [place] [facility] [address] [id number] [place] [address] Nov, [facility] [place] [facility] [address] [id number] [place] [address] Oct, [facility] [place] [facility] [address] [id number] [place] [address] Oct, [facility] [place] [facility] [address] [id number] [place] [address] Oct, [facility] [place] [facility] [address] [id number] [place] [address] Oct, [facility] [place] [facility] [address] [address] [id number] [address] Oct, [facility] [place] [facility] [address] [facility] [id number] [place] [address] Oct, [facility] [place] [facility] [address] [id number], [place] [address] Sep, [facility] [place] [facility] [address] [id number] [place] [address] Sep, [facility] [place] [facility] [address] [id number] [address] Sep, [facility] [place] [facility] [address] [facility] [id number] [address] Sep, [facility] [place] [facility] [address] [id number] [address] Sep, [facility] [place] [facility] [address] [id number] [address] Sep, [facility] [place] [facility] [address] [facility] [id number] [address] Aug, [facility] [place] [facility] [address] [id number] [address] 14 Aug, 2013 [facility] [place] [facility] [address] [id number] [address] Aug, [facility] [place] [facility] [address] [id number] [address] Aug, [facility] [place] [facility] [address] [facility] [id number] [address] 06 Jul, 2013 [facility] [place] [facility] [address] [facility] [id number] [address] Jul, [facility] [place] [facility] [address] [id number] [place] [address] Jun, [facility] [address] [id number] [place] [address] Jun, [facility] [place] [facility] [address] [id number] [place] [address] May, [facility] [place] [facility] [address] [id number] [place] [address] May, [facility] [place] [facility] [address] [id number] [place] [address] May, [facility] [address] [id number] [place] [address] May, [facility] [address] [id number] [place] [address] May, [facility] [address] [id number] [place] [address] May, [facility] [address] [id number] [place] [address] Apr, [facility] [place] [facility] [address] [id number] [place] [address] Apr, [facility] [facility] [address] [id number] [place] [address] Apr, [facility] [place] [facility] [address] [id number] [place] [address] Apr, [facility] [place] [facility] [address] [id number] [place] [address] March, [facility] [place] [facility] [address] [id number] [place] [address] March, [facility] [place] [facility] [address] [id number] [place] [address] March, [facility] [place] [facility] [address] [id number] [place] [address] Feb, [facility] [place] [facility] [address] [id number] [place] [address] Feb, [facility] [address] [id number] [place] [address] Jan, [facility] [address] [id number] [place] [address] Dec, [facility] [place] [facility] [address] [id number] [place] [address] Dec, [facility] [address] [id number] [place] [address] Dec, [facility] [address] [id number] [place] [address] Dec, [facility] [address] [id number] [place] [address] Dec, [facility] [address] [id number] [place] [address] Nov, [facility] [address] [id number] [place] [address] Nov, [facility] [address] [id number] [place] [address] Nov, [facility] [address] [id number] [place] [address] Nov, [facility] [address] [id number] [place] [address] Nov, [facility] [place] [facility] [address] [id number] [place] [address] Oct, [facility] [place] [facility] [address] [id number] [place] [address] Oct, [facility] [place] [facility] [address] [id number] [place] [address] Oct, [facility] [address] [id number] [place] [address] Oct, [facility] [place] [facility] [address] [id number] [place] [address] Sep, [facility] [place] [facility] [address] [facility] [id number] [place] [address] Sep, [facility] [place] [facility] [address] [facility] [id number] [place] [address] Sep, [facility] [place] [facility] [address] [id number] [place] [address] Sep, [facility] [place] [facility] [address] [id number] [place] [address] Sep, [facility] [place] [facility] [address] [facility] [id number] [place] [address] Sep, [facility] [place] [facility] [address] [place] [id number] [place] [address] Sep, [facility] [place] [facility] [address] [facility] [id number] [place] [address] Sep, [facility] [place] [facility] [address] [facility] [id number] [place] [address] Sep, [facility] [place] [facility] [address] [facility] [id number] [place] [address] Sep, [facility] [place] [facility] [address] [facility] [id number] [place] [address] Aug, [facility] [place] [facility] [address] [facility] [id number], [place] [address] Aug, [facility] [place] [facility] [address] [facility] [id number] [place] [address] Aug, [facility] [place] [facility] [address] [facility] [id number] [place] [address] Aug, [facility] [place] [facility] [address] [facility] [id number] [address] Aug, [facility] [place] [facility] [address] [id number] [place] [address] Aug, [facility] [place] [facility] [address] [id number] [place] [address] Jul, [facility] [place] [facility] [address] [id number] [place] [address] Jun, [facility] [place] [facility] [address] [id number] [place] [address] Apr, [facility] [place] [facility] [address] [id number] [place] [address] Apr, [facility] [place] [facility] [address] [id number] [place] [address] Apr, [facility] [place] [facility] [address] [id number] [place] [address] Apr, [facility] [place] [facility] [address] [id number] [place] [address] March, [facility] [place] [facility] [address] [id number] [place] [address] March, [facility] [place] [facility] [address] [id number] [place] [address] March, [facility] [place] [facility] [address] [id number] [place] [address] March, [facility] [place] [facility] [address] [id number] [place] [address] March, [facility] [place] [facility] [address] [id number] [place] [address] Feb, [facility] [place] [facility] [address] [id number] [place] [address] Feb, [facility] [place] [facility] [address] [id number] [place] [address] Feb, [facility] [place] [facility] [address] [id number] [place] [address] Feb, [facility] [place] [facility] [address] [id number] [place] [address] Jan, [facility] [place] [facility] [address] [id number] [place] [address] Jan, [facility] [place] [facility] [address] [facility] [id number] [place] [address] Jan, [facility] [place] [facility] [address] [id number] [place] [address] 28 Dec, 2011 [facility] [place] [facility] [address] [id number] [place] [address] 15 Dec, 2011 [facility] [place] [facility] [address] [facility] [id number] [place] [address] 14 Dec, 2011 [facility] [address] [facility] [id number] [place] [address] Dec, [facility] [place] [facility] [address] [facility] [id number] [place] [address] Dec, [facility] [place] [facility] [address] [facility] [id number] [place] [address] Nov, [facility] [place] [facility] [address] [facility] [id number] [place] [address] Nov, [facility] [place] [facility] [address] [facility] [id number] [place] [address] Nov, [facility] [place] [facility] [address] [facility] [id number] [place] [address] Oct, [facility] [place] [facility] [address] [id number] [place] [address] Oct, [facility] [place] [facility] [address] [facility] [id number] [place] [address] Oct, [facility] [place] [facility] [address] [facility] [id number] [place] [address] Sep, [facility] [place] [facility] [address] [facility]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
--- OUTSIDE RECORDS SUMMARY | 2019-06-22 21:15 | XMS REPORT ---
Author Author KUN ESCALANTE Organization [facility] Address [address] [place] [address] Care Team Providers Care Marketing Producer Name Role Phone KUN ESCALANTE Unavailable PROBLEMS Type Condition ICD9-CM Code YNB99-DQ Code Onset Dates Condition Status SNOMED Code Problem Lumbago with sciatica, right side M54.41 Active 170198184 Problem Muscle pain M79.1 Active 94917513 Problem Type 2 diabetes mellitus with complication E11.8 Active 83661566 Problem Neuropathy G62.9 Active 406144085 Problem Bipolar 1 disorder F31.9 Active 212494054 Problem Hypertriglyceridemia E78.1 Active [id number] ALLERGIES No Information ENCOUNTERS Encounter Location Date Diagnosis [facility] [id number] [place] [address] Jun, [facility] [id number] [place] [address] Jun, [facility] [id number] [place] [address] May, Lumbar back pain with radiculopathy affecting right lower extremity M54.16 ; Cervicalgia M54.2 ; History of streptococcal infection Z86.19 ; Hypertriglyceridemia E78.1 ; Bipolar 1 disorder F31.9 and Does not have health insurance Z59.8 [facility] [id number] [place] [address] 18 May, 2019 Radiculopathy of arm M54.10 [facility] [id number] [place] [address] 15 May, 2019 [facility] [id number] [place] [address] 10 May, 2019 Fever R50.9 [facility] [address], [place] [address] May, [facility] [id number] [place] [address] March, Type 2 diabetes mellitus with complication E11.8 [facility] [id number] [place] [address] March, Patellar tendinitis, right knee M76.51 [facility] [id number] [place] [address] March, Radiculopathy of arm M54.10 [facility] [id number] [place] [address] March, [facility] [id number] [place] [address] 15 Mar, 2019 Type 2 diabetes mellitus with complication E11.8 ; Hoarseness of voice R49.0 and Acute pain of right knee M25.561 [facility] [id number] [place] [address] March, [facility] [id number] [place] [address] March, [facility] [id number] [place] [address] Feb, Bipolar 1 disorder F31.9 [facility] [id number] [place] [address] Feb, Bipolar 1 disorder F31.9 [facility] [id number] [place] [address] Jan, [facility] [id number] [place] [address] 11 Dec, 2018 Type 2 diabetes mellitus with complication E11.8 [facility] [id number] [place] [address] Dec, Acute non-recurrent maxillary sinusitis J01.00 [facility] [id number] [place] [address] Nov, Bipolar 1 disorder F31.9 ; Rash R21 ; Acute non-recurrent maxillary sinusitis J01.00 and Type 2 diabetes mellitus with complication E11.8 [facility] [id number] [place] [address] Oct, Hypertriglyceridemia E78.1 [facility] [address] [address] Oct, Type 2 diabetes mellitus with complication E11.8 and Fatigue due to excessive exertion, initial encounter T73.3XXA [facility] [address] [address] Oct, [place] [address] [address] Sep, [facility] [address] [address] Sep, Radiculopathy of arm M54.10 [facility] [id number] [place] [address] Sep, [facility] [id number] [place] [address] May, [facility] [id number] [place] [address] May, Radiculopathy of arm M54.10 [facility] [id number] [place] [address] May, [facility] [id number] [place] [address] May, [facility] [id number] [place] [address] May, Radiculopathy of arm M54.10 [facility] [address], [place] [address] Apr, Radiculopathy of arm M54.10 [facility] [address], [place] [address] March, Radiculopathy of arm M54.10 [facility] [id number] [address] March, Radiculopathy of arm M54.10 [facility] [id number] [place] [address] March, Radiculopathy of arm M54.10 [facility] [id number] [place] [address] March, Type 2 diabetes mellitus with complication E11.8 ; Radiculopathy of arm M54.10 and Muscle pain M79.1 [facility] [id number] [place] [address] Feb, Muscle pain M79.1 [facility] [id number] [place] [address] Jan, Type 2 diabetes mellitus with complication E11.8 [facility] [address], [place] [address] Jan, [facility] [address], [place] [address] Dec, Muscle pain M79.1 [facility] [address] [place] [address] Nov, Muscle pain M79.1 and Acute pain of right shoulder M25.511 [facility] [address], [place] [address] Nov, [facility] [address], [place] [address] Nov, [facility] [id number] [place] [address] Nov, Type 2 diabetes mellitus with complication E11.8 [facility] [id number] [place] [address] Nov, Impingement syndrome of left shoulder M75.42 and Impingement syndrome of right shoulder M75.41 [place] [id number] [place] [address] Oct, Type 2 diabetes mellitus with complication E11.8 ; Acute pain of right shoulder M25.511 ; Abscess of finger of right hand L02.511 and Umbilical hernia without obstruction and without gangrene K42.9 [place] [id number] [place] [address] Oct, [facility] [id number] [place] [address] Oct, Mucoid otitis media, unspecified chronicity, unspecified laterality H65.90 and Abscess of finger of right hand L02.511 [place] [id number] [place] [address] Oct, [place] [id number] [place] [address] Sep, [place] [id number] [place] [address] 24 Aug, 2017 [place] [id number] [place] [address] 14 Jul, 2017 Sprain of right acromioclavicular ligament, initial encounter S43.51XA ; Impingement syndrome of left shoulder M75.42 and Impingement syndrome of right shoulder M75.41 [place] [id number] [place] [address] 14 Jul, 2017 Type 2 diabetes mellitus with complication E11.8 [place] [id number] [place] [address] Jun, [place] [address], [place] [address] Jun, Type 2 diabetes mellitus with complication E11.8 ; Lumbago with sciatica, right side M54.41 ; 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 and Pain in left shoulder M25.512 [facility] [address] [address] May, [facility] [id number] [place] [address] May, [facility] [id number] [place] [address] Apr, Lumbago with sciatica, right side M54.41 and Neck pain on left side M54.2 [facility] [id number] [place] [address] Apr, [facility] [id number] [place] [address] Apr, [facility] [id number] [place] [address] March, [facility] [id number] [place] [address] March, [facility] [address] [address] Feb, Acute pain of right shoulder M25.511 [facility] [address] [address] Feb, [facility] [id number] [place] [address] Feb, [facility] [id number] [place] [address] Feb, Type 2 diabetes mellitus with complication E11.8 ; Neuropathy G62.9 and Acute pain of right shoulder M25.511 [facility] [address] [address] Dec, Type 2 diabetes mellitus with complication E11.8 [facility] [id number] [place] [address] Nov, [facility] [id number] [place] [address] Oct, 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 [facility] [id number] [place] [address] Oct, Type 2 diabetes mellitus with complication E11.8 [facility] [id number] [place] [address] Sep, Type 2 diabetes mellitus with complication E11.8 ; Acute pain of right shoulder M25.511 and Prostate cancer screening Z12.5 [facility] [id number] [place] [address] Sep, [facility] [id number] [place] [address] Jun, [facility] [id number] [place] [address] Jun, Muscle tension headache G44.209 and Bruxism F45.8 [facility] [id number] [place] [address] May, Type 2 diabetes mellitus with complication E11.8 ; Erectile dysfunction, unspecified erectile dysfunction type N52.9 and Neuropathy G62.9 [facility] [id number] [place] [address] Feb, [facility] [id number] [place] [address] Feb, Type 2 diabetes mellitus with complication E11.8 [facility] [id number] [place] [address] Dec, [facility] [address] [place] [address] Dec, Type 2 diabetes mellitus with complication E11.8 [facility] [id number] [place] [address] Nov, Nausea and vomiting, unspecified intactability, vomiting of unspecified type R11.2 [facility] [id number] [place] [address] Oct, Neuropathy G62.9 and Type 2 diabetes mellitus with complication E11.8 [facility] [id number] [place] [address] Sep, [facility] [id number] [place] [address] Sep, [facility] [id number] [place] [address] Sep, Diabetes E11.9 [facility] [address] [address] Sep, [facility] [id number] [place] [address] Jul, [facility] [id number] [place] [address] Jun, [facility] [id number] [place] [address] Jun, Secondary diabetes mellitus with neurological manifestations, not stated as uncontrolled, or unspecified 249.60 ; Other chronic pain 338.29 and Puncture wound 879.8 [facility] [id number] [place] [address] May, [facility] [id number] [place] [address] Apr, [facility] [id number] [place] [address] March, [facility] [id number] [place] [address] Feb, [facility] [place] [facility] [address] [id number] [place] [address] Feb, [facility] [place] [facility] [address] [id number] [place] [address] Jan, [facility] [place] [facility] [address] [id number] [place] [address] Jan, [facility] [place] [facility] [address] [id number] [place] [address] Jan, [facility] [place] [facility] [address] [id number] [place] [address] Jan, [facility] [place] [facility] [address] [id number] [place] [address] Jan, [facility] [place] [facility] [address] [id number] [place] [address] Jan, [facility] [place] [facility] [address] [id number] [place] [address] Jan, [facility] [place] [facility] [address] [id number] [place] [address] Jan, [facility] [place] [facility] [address] [id number] [place] [address] Dec, [facility] [place] [facility] [address] [id number] [place] [address] Dec, [facility] [place] [facility] [address] [id number] [place] [address] Nov, [facility] [place] [facility] [address] [id number] [place] [address] Nov, [facility] [place] [facility] [address] [id number] [place] [address] Nov, [facility] [place] [facility] [address] [id number] [place] [address] Nov, [facility] [place] [facility] [address] [id number] [place] [address] Nov, [facility] [place] [facility] [address] [id number] [place] [address] Nov, [facility] [place] [facility] [address] [id number] [place] [address] Oct, [facility] [place] [facility] [address] [id number] [place] [address] Oct, [facility] [place] [facility] [address] [id number] [place] [address] Oct, [facility] [place] [facility] [address] [id number] [place] [address] Oct, [facility] [place] [facility] [address] [id number] [place] [address] Oct, [facility] [place] [facility] [address] [id number] [place] [address] Oct, [facility] [place] [facility] [address] [id number] [place] [address] Oct, [facility] [place] [facility] [address] [id number] [place] [address] Oct, [facility] [place] [facility] [address] [id number] [place] [address] Oct, [facility] [place] [facility] [address] [id number] [place] [address] Sep, [facility] [place] [facility] [address] [id number] [place] [address] Sep, [facility] [place] [facility] [address] [id number] [place] [address] Sep, [facility] [place] [facility] [address] [id number] [place] [address] Sep, [facility] [place] [facility] [address] [id number] [place] [address] Sep, [facility] [place] [facility] [address] [id number] [place] [address] Sep, [facility] [place] [facility] [address] [id number] [place] [address] Sep, [facility] [place] [facility] [address] [id number] [place] [address] Aug, [facility] [place] [facility] [address] [id number] [place] [address] Aug, [facility] [place] [facility] [address] [id number] [place] [address] Aug, [facility] [place] [facility] [address] [id number] [place] [address] 16 Aug, 2014 [facility] [place] [facility] [address] [id number] [place] [address] Aug, [facility] [place] [facility] [address] [id number] [address] 14 Aug, 2014 [facility] [place] [facility] [address] [id number] [place] [address] 26 Jul, 2014 [facility] [place] [facility] [address] [id number] [place] [address] 25 Jul, 2014 [facility] [place] [facility] [address] [id number], [place] [address] 25 Jul, 2013 [facility] [place] [facility] [address] [id number], [place] [address] 25 Sep, 2013 [facility] [place] [facility] [address] [id number] [place] [address] 25 Jul, 2013 [facility] [place] [facility] [address] [id number], [place] [address] 19 Sep, 2013 [facility] [place] [facility] [address] [id number], [place] [address] 16 Jul, 2013 [facility] [place] [facility] [address] [id number] [place] [address] 16 Jul, 2014 [facility] [place] [facility] [address] [id number] [place] [address] Jul, [facility] [place] [facility] [address] [id number] [place] [address] Jul, [facility] [place] [facility] [address] [id number] [place] [address] Jun, [facility] [place] [facility] [address] [id number] [place] [address] Jun, [facility] [place] [facility] [address] [id number] [place] [address] Jun, [facility] [place] [facility] [address] [id number] [place] [address] Jun, [facility] [place] [facility] [address] [id number] [place] [address] Jun, [facility] [place] [facility] [address] [id number] [place] [address] Jun, [facility] [place] [facility] [address] [id number] [place] [address] Jun, [facility] [place] [facility] [address] [id number] [place] [address] Jun, [facility] [place] [facility] [address] [id number] [place] [address] May, [facility] [place] [facility] [address] [id number] [place] [address] May, [facility] [place] [facility] [address] [id number] [place] [address] May, [facility] [place] [facility] [address] [id number] [place] [address] May, [facility] [place] [facility] [address] [id number] [place] [address] May, [facility] [place] [facility] [address] [id number] [place] [address] May, [facility] [place] [facility] [address] [id number] [place] [address] May, [facility] [place] [facility] [address] [id number] [place] [address] May, [facility] [place] [facility] [address] [id number] [place] [address] May, [facility] [place] [facility] [address] [id number] [place] [address] May, [facility] [place] [facility] [address] [id number] [place] [address] May, [facility] [place] [facility] [address] [id number] [place] [address] May, [facility] [place] [facility] [address] [id number] [place] [address] May, [facility] [place] [facility] [address] [id number] [place] [address] Apr, [facility] [place] [facility] [address] [id number] [place] [address] Apr, [facility] [place] [facility] [address] [id number] [place] [address] Apr, [facility] [place] [facility] [address] [id number] [place] [address] Apr, [facility] [place] [facility] [address] [id number] [place] [address] Apr, [facility] [place] [facility] [address] [id number] [place] [address] Apr, [facility] [place] [facility] [address] [id number] [place] [address] March, [facility] [place] [facility] [address] [id number] [place] [address] March, [facility] [place] [facility] [address] [id number] [place] [address] March, [facility] [place] [facility] [address] [id number] [place] [address] Feb, [facility] [place] [facility] [address] [id number] [place] [address] Feb, [facility] [place] [facility] [address] [id number] [place] [address] Feb, [facility] [place] [facility] [address] [id number] [place] [address] Feb, [facility] [place] [facility] [address] [id number] [place] [address] Feb, [facility] [place] [facility] [address] [id number] [place] [address] Feb, [facility] [place] [facility] [address] [id number] [place] [address] Feb, [facility] [place] [facility] [address] [id number] [place] [address] Feb, [facility] [place] [facility] [address] [id number] [place] [address] Feb, [facility] [place] [facility] [address] [id number] [place] [address] Feb, [facility] [place] [facility] [address] [id number] [place] [address] Feb, [facility] [place] [facility] [address] [id number] [place] [address] Jan, [facility] [place] [facility] [address] [id number] [place] [address] Jan, [facility] [place] [facility] [address] [id number] [place] [address] Jan, [facility] [place] [facility] [address] [id number] [place] [address] Jan, [facility] [place] [facility] [address] [id number] [place] [address] Jan, [facility] [place] [facility] [address] [id number] [place] [address] Jan, [facility] [place] [facility] [address] [id number] [place] [address] Dec, [facility] [place] [facility] [address] [id number] [place] [address] Dec, [facility] [place] [facility] [address] [id number] [place] [address] Dec, [facility] [place] [facility] [address] [id number] [place] [address] Dec, [facility] [place] [facility] [address] [id number] [place] [address] Nov[place] [facility] [place] [facility] [address] [id number] [place] [address] Nov, [facility] [place] [facility] [address] [id number] [place] [address] Nov, [facility] [place] [facility] [address] [id number] [place] [address] Nov, [facility] [place] [facility] [address] [id number] [place] [address] Nov, [facility] [place] [facility] [address] [id number] [place] [address] Nov, [facility] [place] [facility] [address] [id number] [place] [address] Oct, [facility] [place] [facility] [address] [id number] [place] [address] Oct, [facility] [place] [facility] [address] [id number] [place] [address] Oct, [facility] [place] [facility] [address] [id number] [place] [address] Oct, [facility] [place] [facility] [address] [id number], [place] [address] Oct, [facility] [place] [facility] [address] [facility] [id number] [place] [address] Oct, [facility] [place] [facility] [address] [id number], [place] [address] Sep, [facility] [place] [facility] [address] [id number] [place] [address] Sep, [facility] [place] [facility] [address] [id number], [place] [address] Sep, [facility] [place] [facility] [address] [facility] [id number], [place] [address] Sep, [facility] [place] [facility] [address] [id number], [place] [address] Sep, [facility] [place] [facility] [address] [id number], [place] [address] Sep, [facility] [place] [facility] [address] [facility] [id number], [place] [address] Aug, [facility] [place] [facility] [address] [id number], [place] [address] 14 Aug, 2013 [facility] [place] [facility] [address] [id number], [place] [address] Aug, [facility] [place] [facility] [address] [id number], [place] [address] Aug, [facility] [place] [facility] [address] [facility] [id number], [place] [address] 06 Jul, 2013 [facility] [place] [facility] [address] [facility] [id number], [place] [address] Jul, [facility] [place] [facility] [address] [id number] [place] [address] Jun, [facility] [address] [id number] [place] [address] Jun, [facility] [place] [facility] [address] [id number] [place] [address] May, [facility] [place] [facility] [address] [id number] [place] [address] May, [facility] [place] [facility] [address] [id number] [place] [address] May, [facility] [address] [id number] [place] [address] May, [facility] [address] [id number] [place] [address] May, [facility] [address] [id number] [place] [address] May, [facility] [address] [id number] [place] [address] Apr, [facility] [place] [facility] [address] [id number] [place] [address] Apr, [facility] [address] [id number] [place] [address] Apr, [facility] [place] [facility] [address] [id number] [place] [address] Apr, [facility] [place] [facility] [address] [id number] [place] [address] March, [facility] [place] [facility] [address] [id number] [place] [address] March, [facility] [place] [facility] [address] [id number] [place] [address] March, [facility] [place] [facility] [address] [id number] [place] [address] Feb, [facility] [place] [facility] [address] [id number] [place] [address] Feb, [facility] [address] [id number] [place] [address] Jan, [facility] [address] [id number] [place] [address] Dec, [facility] [place] [facility] [address] [id number] [place] [address] Dec, [facility] [address] [id number] [place] [address] Dec, [facility] [address] [id number] [place] [address] Dec, [facility] [address] [id number] [place] [address] Dec, [facility] [address] [id number] [place] [address] Nov, [facility] [address] [id number] [place] [address] Nov, [facility] [address] [id number] [place] [address] Nov, [facility] [address] [id number] [place] [address] Nov, [facility] [address] [id number] [place] [address] Nov, [facility] [place] [facility] [address] [id number] [place] [address] Oct, [facility] [place] [facility] [address] [id number] [place] [address] Oct, [facility] [place] [facility] [address] [id number] [place] [address] Oct, [facility] [address] [id number] [place] [address] Oct, [facility] [place] [facility] [address] [id number] [place] [address] Sep, [facility] [place] [facility] [address] [facility] [id number] [place] [address] Sep, [facility] [place] [facility] [address] [facility] [id number] [place] [address] Sep, [facility] [place] [facility] [address] [id number] [place] [address] Sep, [facility] [place] [facility] [address] [id number] [place] [address] Sep, [facility] [place] [facility] [address] [facility] [id number] [place] [address] Sep, [facility] [place] [facility] [id number] [place] [address] Sep, [facility] [place] [facility] [address] [facility] [id number] [place] [address] Sep, [facility] [place] [facility] [address] [facility] [id number] [place] [address] Sep, [facility] [place] [facility] [address] [facility] [id number] [place] [address] Sep, [facility] [place] [facility] [address] [facility] [id number] [place] [address] Aug, [facility] [place] [facility] [address] [facility] [id number], [place] [address] Aug, [facility] [place] [facility] [address] [facility] [id number] [place] [address] Aug, [facility] [place] [facility] [address] [facility] [id number] [place] [address] Aug, [facility] [place] [facility] [address] [facility] [id number], [place] [address] Aug, [facility] [place] [facility] [address] [id number] [place] [address] Aug, [facility] [place] [facility] [address] [id number] [place] [address] Jul, [facility] [place] [facility] [address] [id number] [place] [address] Jun, [facility] [place] [facility] [address] [id number] [place] [address] Apr, [facility] [place] [facility] [address] [id number] [place] [address] Apr, [facility] [place] [facility] [address] [id number] [place] [address] Apr, [facility] [place] [facility] [address] [id number] [place] [address] Apr, [facility] [place] [facility] [address] [id number] [place] [address] March, [facility] [place] [facility] [address] [id number] [place] [address] March, [facility] [place] [facility] [address] [id number] [place] [address] March, [facility] [place] [facility] [address] [id number] [place] [address] March, [facility] [place] [facility] [address] [id number] [place] [address] March, [facility] [place] [facility] [address] [id number] [place] [address] Feb, [facility] [place] [facility] [address] [id number] [place] [address] Feb, [facility] [place] [facility] [address] [id number] [place] [address] Feb, [facility] [place] [facility] [address] [id number] [place] [address] Feb, [facility] [place] [facility] [address] [id number] [place] [address] Jan, [facility] [place] [facility] [address] [id number] [place] [address] Jan, [facility] [place] [facility] [address] [facility] [id number] [place] [address] Jan, [facility] [place] [facility] [address] [id number] [place] [address] 28 Dec, 2011 [facility] [place] [facility] [address] [id number] [place] [address] 15 Dec, 2011 [facility] [place] [facility] [address] [facility] [id number] [place] [address] 14 Dec, 2011 [facility] [address] [facility] [id number] [place] [address] Dec, [facility] [place] [facility] [address] [facility] [id number] [place] [address] Dec, [facility] [place] [facility] [address] [facility] [id number] [place] [address] Nov, [facility] [place] [facility] [address] [facility] [id number] [place] [address] Nov, [facility] [place] [facility] [address] [facility] [id number] [place] [address] Nov, [facility] [place] [facility] [address] [facility] [id number] [place] [address] Oct, [facility] [place] [facility] [address] [id number] [place] [address] Oct, [facility] [place] [facility] [address] [facility] [id number] [place] [address] Oct, [facility] [place] [facility] [address] [facility] [id number] [place] [address] Sep, [facility] [place] [facility] [address] [facility] [id number] [place] [address] 13 Jul, 2011 [facility] [address] [facility] [id number] [place] [address] 16 Apr, 2011 IMMUNIZATIONS No Known Immunizations [...]
--- OUTSIDE RECORDS SUMMARY | 2019-06-22 21:16 | XMS REPORT ---
Author Author KUN ESCALANTE Organization [facility] Address [address] [place] [address] Care Team Providers Care Director Of Curriculum And Instruction Name Role Phone KUN ESCALANTE Unavailable PROBLEMS Type Condition ICD9-CM Code EUU72-FD Code Onset Dates Condition Status SNOMED Code Problem Lumbago with sciatica, right side M54.41 Active 990079692 Problem Muscle pain M79.1 Active 01869391 Problem Type 2 diabetes mellitus with complication E11.8 Active 11648073 Problem Neuropathy G62.9 Active 463521054 Problem Bipolar 1 disorder F31.9 Active 736201245 Problem Hypertriglyceridemia E78.1 Active [id number] ALLERGIES No Information ENCOUNTERS Encounter Location Date Diagnosis [facility] [id number] [place] [address] May, [facility] [address] [address] May, Radiculopathy of arm M54.10 [facility] [id number] [place] [address] 15 May, [address] [facility] [id number] [place] [address] May, Fever R50.9 [facility] [id number] [place] [address] May, [facility] [id number] [place] [address] March, Type 2 diabetes mellitus with complication E11.8 [facility] [id number] [place] [address] March, Patellar tendinitis, right knee M76.51 [facility] [facility] [id number] [place] [address] March, Radiculopathy of arm M54.10 [facility] [id number] [place] [address] March, [facility] [id number] [place] [address] March, Type 2 diabetes mellitus with complication E11.8 ; Hoarseness of voice R49.0 and Acute pain of right knee M25.561 [facility] [id number] [place] [address] March, [facility] [address] [address] March, [facility] [id number] [place] [address] Feb, Bipolar 1 disorder F31.9 [facility] [id number] [place] [address] Feb, Bipolar 1 disorder F31.9 [facility] [id number] [place] [address] Jan, [facility] [id number] [place] [address] Dec, Type 2 diabetes mellitus with complication E11.8 [facility] [id number] [place] [address] Dec, Acute non-recurrent maxillary sinusitis J01.00 [facility] [id number] [place] [address] Nov, Bipolar 1 disorder F31.9 ; Rash R21 ; Acute non-recurrent maxillary sinusitis J01.00 and Type 2 diabetes mellitus with complication E11.8 [facility] [id number] [place] [address] Oct, Hypertriglyceridemia E78.1 [facility] [address] [address] Oct, Type 2 diabetes mellitus with complication E11.8 and Fatigue due to excessive exertion, initial encounter T73.3XXA [facility] [address], [place] [address] Oct, [facility] [id number] [place] [address] Sep, [facility] [address], [place] [address] Sep, Radiculopathy of arm M54.10 [facility] [id number], [place] [address] Sep, [facility] [id number], [place] [address] May, [facility] [id number] [address] May, Radiculopathy of arm M54.10 [facility] [id number], [place] [address] May, [facility] [id number], [place] [address] May, [facility] [address], [place] [address] May, Radiculopathy of arm M54.10 [facility] [id number] [address] Apr, Radiculopathy of arm M54.10 [facility] [address], [place] [address] March, Radiculopathy of arm M54.10 [facility] [address], [place] [address] March, Radiculopathy of arm M54.10 [facility] [id number] [place] [address] March, Radiculopathy of arm M54.10 [facility] [id number] [place] [address] March, Type 2 diabetes mellitus with complication E11.8 ; Radiculopathy of arm M54.10 and Muscle pain M79.1 [facility] [id number] [place] [address] Feb, Muscle pain M79.1 [facility] [id number] [place] [address] Jan, Type 2 diabetes mellitus with complication E11.8 [facility] [id number] [place] [address] Jan, [facility] [id number] [place] [address] Dec, Muscle pain M79.1 [facility] [id number] [place] [address] Nov, Muscle pain M79.1 and Acute pain of right shoulder M25.511 [facility] [id number] [place] [address] Nov, [facility] [id number] [place] [address] Nov, [facility] [id number] [place] [address] Nov, Type 2 diabetes mellitus with complication E11.8 [facility] [id number] [place] [address] Nov, Impingement syndrome of left shoulder M75.42 and Impingement syndrome of right shoulder M75.41 [facility] [address], [place] [address] Oct, Type 2 diabetes mellitus with complication E11.8 ; Acute pain of right shoulder M25.511 ; Abscess of finger of right hand L02.511 and Umbilical hernia without obstruction and without gangrene K42.9 [facility] [id number] [place] [address] Oct, [facility] [id number] [place] [address] Oct, Mucoid otitis media, unspecified chronicity, unspecified laterality H65.90 and Abscess of finger of right hand L02.511 [place] [facility] [id number] [place] [address] Oct, [facility] [id number] [place] [address] Sep, [facility] [id number] [place] [address] Aug, [facility] [id number] [place] [address] 14 Jul, 2017 Sprain of right acromioclavicular ligament, initial encounter S43.51XA ; Impingement syndrome of left shoulder M75.42 and Impingement syndrome of right shoulder M75.41 [facility] [id number] [place] [address] Jul, Type 2 diabetes mellitus with complication E11.8 [place] [facility] [id number] [place] [address] Jun, [facility] [id number] [place] [address] Jun, Type 2 diabetes mellitus with complication E11.8 ; Lumbago with sciatica, right side M54.41 ; 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 and Pain in left shoulder M25.512 [facility] [id number] [place] [address] May, [facility] [address] [place] [address] May, [facility] [id number] [address] Apr, Lumbago with sciatica, right side M54.41 and Neck pain on left side M54.2 [facility] [address], [place] [address] Apr, [facility] [id number] [place] [address] Apr, [facility] [id number] [place] [address] March, [facility] [id number] [place] [address] March, [facility] [id number] [place] [address] Feb, Acute pain of right shoulder M25.511 [facility] [address], [place] [address] Feb, [facility] [id number] [place] [address] Feb, [facility] [address], [place] [address] Feb, Type 2 diabetes mellitus with complication E11.8 ; Neuropathy G62.9 and Acute pain of right shoulder M25.511 [facility] [address], [place] [address] Dec, Type 2 diabetes mellitus with complication E11.8 [facility] [id number] [address] Nov, [facility] [address], [place] [address] Oct, 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 [facility] [id number] [place] [address] Oct, Type 2 diabetes mellitus with complication E11.8 [facility] [id number] [place] [address] Sep, Type 2 diabetes mellitus with complication E11.8 ; Acute pain of right shoulder M25.511 and Prostate cancer screening Z12.5 [facility] [id number] [place] [address] Sep, [facility] [id number] [place] [address] Jun, [place] [facility] [address] [address] Jun, Muscle tension headache G44.209 and Bruxism F45.8 [place] [id number] [place] [address] May, Type 2 diabetes mellitus with complication E11.8 ; Erectile dysfunction, unspecified erectile dysfunction type N52.9 and Neuropathy G62.9 [place] [id number] [place] [address] Feb, [facility] [id number] [place] [address] Feb, Type 2 diabetes mellitus with complication E11.8 [facility] [id number] [place] [address] Dec, [facility] [id number] [place] [address] Dec, Type 2 diabetes mellitus with complication E11.8 [place] [id number] [place] [address] Nov, Nausea and vomiting, unspecified intactability, vomiting of unspecified type R11.2 [facility] [id number] [place] [address] Oct, Neuropathy G62.9 and Type 2 diabetes mellitus with complication E11.8 [facility] [address], [place] [address] Sep, [facility] [id number] [place] [address] Sep, [facility] [id number], [place] [address] Sep, Diabetes E11.9 [facility] [id number] [place] [address] Sep, [facility] [id number] [place] [address] Jul, [facility] [id number] [place] [address] Jun, [facility] [id number] [place] [address] Jun, Secondary diabetes mellitus with neurological manifestations, not stated as uncontrolled, or unspecified 249.60 ; Other chronic pain 338.29 and Puncture wound 879.8 [facility] [id number], [place] [address] May, [facility] [id number], [place] [address] Apr, [facility] [id number], [place] [address] March, [facility] [id number], [place] [address] Feb, [facility] [id number], [place] [address] Feb, [facility] [id number] [place] [address] Jan, [facility] [id number], [place] [address] Jan, [facility] [id number] [place] [address] Jan, [facility] [address] [id number] [place] [address] Jan, [facility] [place] [facility] [address] [id number] [place] [address] Jan, [facility] [place] [facility] [address] [id number] [place] [address] Jan, [facility] [place] [facility] [address] [id number] [place] [address] Jan, [facility] [place] [facility] [address] [id number] [place] [address] Jan, [facility] [place] [facility] [address] [id number] [place] [address] Dec, [facility] [place] [facility] [address] [id number] [place] [address] Dec, [facility] [place] [facility] [address] [id number] [place] [address] Nov, [facility] [place] [facility] [address] [id number] [place] [address] Nov, [facility] [place] [facility] [address] [id number] [place] [address] Nov, [facility] [place] [facility] [address] [id number] [place] [address] Nov, [facility] [place] [facility] [address] [id number] [place] [address] Nov, [facility] [place] [facility] [address] [id number] [place] [address] Nov, [facility] [place] [facility] [address] [id number] [place] [address] Oct, [facility] [place] [facility] [address] [id number] [place] [address] Oct, [facility] [place] [facility] [address] [id number] [place] [address] Oct, [facility] [place] [facility] [address] [id number] [place] [address] Oct, [facility] [place] [facility] [address] [id number] [place] [address] Oct, [facility] [place] [facility] [address] [id number] [place] [address] Oct, [facility] [place] [facility] [address] [id number] [place] [address] Oct, [facility] [place] [facility] [address] [id number] [place] [address] Oct, [facility] [place] [facility] [address] [id number] [place] [address] Oct, [facility] [place] [facility] [address] [id number] [place] [address] Sep, [facility] [place] [facility] [address] [id number] [place] [address] Sep, [facility] [place] [facility] [address] [id number] [place] [address] Sep, [facility] [place] [facility] [address] [id number] [place] [address] Sep, [facility] [place] [facility] [address] [id number] [address] Sep, [facility] [place] [facility] [address] [id number] [place] [address] Sep, [facility] [place] [facility] [address] [id number] [place] [address] Sep, [facility] [place] [facility] [address] [id number], [place] [address] Aug, [facility] [place] [facility] [address] [id number], [place] [address] Aug, [facility] [place] [facility] [address] [id number] [place] [address] 16 Aug, 2014 [facility] [place] [facility] [address] [id number] [place] [address] 16 Aug, 2014 [facility] [place] [facility] [address] [id number] [place] [address] 14 Aug, 2014 [facility] [place] [facility] [address] [id number] [place] [address] 14 Aug, 2014 [facility] [place] [facility] [address] [id number] [place] [address] 26 Jul, 2014 [facility] [place] [facility] [address] [id number] [place] [address] 25 Jul, 2014 [facility] [place] [facility] [address] [id number] [place] [address] 25 Jul, 2014 [facility] [place] [facility] [address] [id number] [place] [address] 25 Jul, 2013 [facility] [place] [facility] [address] [id number] [place] [address] 25 Jul, 2014 [facility] [place] [facility] [address] [id number] [place] [address] 19 Jul, 2013 [facility] [place] [facility] [address] [id number], [place] [address] 16 Jul, 2013 [facility] [place] [facility] [address] [id number], [place] [address] 16 Jul, 2013 [facility] [place] [facility] [address] [id number] [place] [address] 08 Jul, 2014 [facility] [place] [facility] [address] [id number] [place] [address] 08 Jul, 2013 [facility] [place] [facility] [address] [id number] [place] [address] Jun, [facility] [place] [facility] [address] [id number] [place] [address] Jun, [facility] [place] [facility] [address] [id number] [place] [address] Jun, [facility] [place] [facility] [address] [id number] [place] [address] Jun, [facility] [place] [facility] [address] [id number] [place] [address] Jun, [facility] [place] [facility] [address] [id number] [place] [address] Jun, [facility] [place] [facility] [address] [id number] [place] [address] Jun, [facility] [place] [facility] [address] [id number] [place] [address] Jun, [facility] [place] [facility] [address] [id number] [place] [address] May, [facility] [place] [facility] [address] [id number] [place] [address] May, [facility] [place] [facility] [address] [id number] [place] [address] May, [facility] [place] [facility] [address] [id number] [place] [address] May, [facility] [place] [facility] [address] [id number] [place] [address] May, [facility] [place] [facility] [address] [id number] [place] [address] May, [facility] [place] [facility] [address] [id number] [place] [address] May, [facility] [place] [facility] [address] [id number] [place] [address] May, [facility] [place] [facility] [address] [id number] [place] [address] May, [facility] [place] [facility] [address] [id number] [place] [address] May, [facility] [place] [facility] [address] [id number] [place] [address] May, [facility] [place] [facility] [address] [id number] [place] [address] May, [facility] [place] [facility] [address] [id number] [place] [address] May, [facility] [place] [facility] [address] [id number] [place] [address] Apr, [facility] [place] [facility] [address] [id number] [place] [address] Apr, [facility] [place] [facility] [address] [id number] [place] [address] Apr, [facility] [place] [facility] [address] [id number] [place] [address] Apr, [facility] [place] [facility] [address] [id number] [place] [address] Apr, [facility] [place] [facility] [address] [id number] [place] [address] Apr, [facility] [place] [facility] [address] [id number] [place] [address] March, [facility] [place] [facility] [address] [id number] [place] [address] March, [facility] [place] [facility] [address] [id number] [place] [address] March, [facility] [place] [facility] [address] [id number] [place] [address] Feb, [facility] [place] [facility] [address] [id number] [place] [address] Feb, [facility] [place] [facility] [address] [id number] [place] [address] 24 Feb, 2014 [facility] [place] [facility] [address] [id number] [place] [address] Feb, [facility] [place] [facility] [address] [id number] [place] [address] Feb, [facility] [place] [facility] [address] [id number] [place] [address] Feb, [facility] [place] [facility] [address] [id number] [place] [address] Feb, [facility] [place] [facility] [address] [id number] [place] [address] Feb, [facility] [place] [facility] [address] [id number] [place] [address] Feb, [facility] [place] [facility] [address] [id number] [place] [address] Feb, [facility] [place] [facility] [address] [id number] [place] [address] Feb, [facility] [place] [facility] [address] [id number] [place] [address] Jan, [facility] [place] [facility] [address] [id number] [place] [address] Jan, [facility] [place] [facility] [address] [id number] [place] [address] Jan, [facility] [place] [facility] [address] [id number] [place] [address] Jan, [facility] [place] [facility] [address] [id number] [place] [address] Jan, [facility] [place] [facility] [address] [id number] [place] [address] Jan, [facility] [place] [facility] [address] [id number] [place] [address] Dec, [facility] [place] [facility] [address] [id number] [place] [address] Dec, [facility] [place] [facility] [address] [id number] [place] [address] Dec, [facility] [place] [facility] [address] [id number] [place] [address] Dec, [facility] [place] [facility] [address] [id number] [place] [address] Nov, [facility] [place] [facility] [address] [id number] [place] [address] Nov, [facility] [place] [facility] [address] [id number] [place] [address] Nov, [facility] [place] [facility] [address] [id number] [place] [address] Nov, [facility] [place] [facility] [address] [id number] [place] [address] Nov, [facility] [place] [facility] [address] [id number] [place] [address] Nov, [facility] [place] [facility] [address] [id number] [place] [address] Oct, [facility] [place] [facility] [address] [id number] [place] [address] Oct, [facility] [place] [facility] [address] [id number] [place] [address] Oct, [facility] [place] [facility] [address] [id number] [place] [address] Oct, [facility] [place] [facility] [address] [id number] [place] [address] Oct, [facility] [place] [facility] [address] [id number] [place] [address] Oct, [facility] [place] [facility] [address] [id number] [place] [address] Sep, [facility] [place] [facility] [address] [id number] [place] [address] Sep, [facility] [place] [facility] [address] [id number] [place] [address] Sep, [facility] [place] [facility] [address] [id number] [place] [address] Sep, [facility] [place] [facility] [address] [id number] [place] [address] Sep, [facility] [place] [facility] [address] [id number] [place] [address] Sep, [facility] [place] [facility] [address] [id number] [place] [address] Aug, [facility] [place] [facility] [address] [id number] [place] [address] Aug, [facility] [place] [facility] [address] [id number] [place] [address] Aug, [facility] [place] [facility] [address] [id number] [place] [address] Aug, [facility] [place] [facility] [address] [id number] [place] [address] Jul, [facility] [place] [facility] [address] [id number] [address] Jul, [facility] [place] [facility] [address] [id number], [place] [address] Jun, [facility] [place] [facility] [address] [id number] [place] [address] Jun, [facility] [place] [facility] [address] [id number] [place] [address] May, [facility] [place] [facility] [address] [id number] [place] [address] May, [facility] [place] [facility] [address] [id number] [place] [address] May, [facility] [address] [id number] [place] [address] May, [facility] [place] [facility] [address] [id number] [place] [address] May, [facility] [address] [id number] [place] [address] May, [facility] [place] [facility] [address] [id number] [place] [address] Apr, [facility] [place] [facility] [address] [id number] [place] [address] Apr, [facility] [place] [facility] [address] [id number] [place] [address] Apr, [facility] [address] [id number] [place] [address] Apr, [facility] [address] [id number] [place] [address] March, [facility] [place] [facility] [address] [id number] [place] [address] March, [facility] [address] [id number] [place] [address] March, [facility] [place] [facility] [address] [id number] [place] [address] Feb, [facility] [place] [facility] [address] [id number] [place] [address] Feb, [facility] [place] [facility] [address] [id number] [place] [address] Jan, [facility] [place] [facility] [address] [id number] [place] [address] Dec, [facility] [place] [facility] [address] [id number] [place] [address] Dec, [facility] [place] [facility] [address] [id number] [place] [address] Dec, [facility] [place] [facility] [address] [id number] [place] [address] Dec, [facility] [place] [facility] [address] [id number] [place] [address] Dec, [facility] [place] [facility] [address] [id number] [place] [address] Nov, [facility] [place] [facility] [address] [id number] [place] [address] Nov, [facility] [place] [facility] [address] [id number] [place] [address] Nov, [facility] [place] [facility] [address] [id number] [place] [address] Nov, [facility] [place] [facility] [address] [id number] [place] [address] Nov, [facility] [place] [facility] [address] [id number] [place] [address] Oct, [facility] [place] [facility] [address] [id number] [place] [address] Oct, [facility] [place] [facility] [address] [id number] [place] [address] Oct, [facility] [place] [facility] [address] [id number] [place] [address] Oct, [facility] [place] [facility] [address] [id number] [place] [address] Sep, [facility] [place] [facility] [address] [id number] [place] [address] Sep, [facility] [place] [facility] [address] [facility] [id number] [place] [address] Sep, [facility] [place] [facility] [address] [id number] [place] [address] Sep, [facility] [place] [facility] [address] [id number] [place] [address] Sep, [facility] [place] [facility] [address] [id number] [place] [address] Sep, [facility] [place] [facility] [address] [id number] [place] [address] Sep, [facility] [place] [facility] [address] [id number] [place] [address] Sep, [facility] [place] [facility] [address] [id number] [place] [address], [place] [address] Sep, [facility] [place] [facility] [address] [facility] [id number] [place] [address] Sep, [facility] [place] [facility] [address] [facility] [id number] [place] [address] Aug, [facility] [place] [facility] [address] [facility] [id number] [place] [address] Aug, [facility] [place] [facility] [address] [id number] [place] [address] Aug, [facility] [place] [facility] [address] [facility] [id number] [place] [address] Aug, [facility] [place] [facility] [address] [facility] [id number] [place] [address] Aug, [facility] [place] [facility] [address] [facility] [id number] [place] [address] Aug, [facility] [place] [facility] [address] [facility] [id number] [place] [address] Jul, [facility] [place] [facility] [address] [facility] [id number] [place] [address] Jun, [facility] [place] [facility] [address] [facility] [id number] [place] [address] Apr, [facility] [address] [id number] [place] [address] Apr, [facility] [place] [facility] [address] [id number] [place] [address] Apr, [facility] [place] [facility] [address] [id number] [place] [address] Apr, [facility] [place] [facility] [address] [id number] [place] [address] March, [facility] [place] [facility] [address] [id number] [place] [address] March, [facility] [place] [facility] [address] [id number] [place] [address] March, [facility] [place] [facility] [address] [id number] [place] [address] March, [facility] [place] [facility] [address] [id number] [place] [address] March, [facility] [place] [facility] [address] [id number] [place] [address] Feb, [facility] [place] [facility] [address] [id number] [place] [address] Feb, [facility] [place] [facility] [address] [id number] [place] [address] Feb, [facility] [place] [facility] [address] [id number], [place] [address] Feb, [facility] [place] [facility] [address] [id number] [place] [address] Jan, [facility] [place] [facility] [address] [id number] [place] [address] Jan, [facility] [place] [facility] [address] [id number] [place] [address] Jan, [facility] [place] [facility] [address] [id number], [place] [address] 28 Dec, 2011 [facility] [id number], [place] [address] 15 Dec, 2011 [facility] [id number], [place] [address] 14 Dec, 2011 [facility] [id number], [place] [address] 08 Dec, 2011 [facility] [id number], [place] [address] 08 Dec, 2011 [facility] [id number] [place] [address] Nov, [facility] [id number] [place] [address] Nov, [facility] [id number] [place] [address] Nov, [facility] [id number], [place] [address] Oct, [facility] [id number] [place] [address] Oct, [facility] [id number], [place] [address] Oct, [facility] [id number] [place] [address] 04 Sep, 2011 [facility] [id number], [place] [address] 13 Jul, 2011 [facility] [id number], [place] [address] 16 Apr, 2011 IMMUNIZATIONS No Known Immunizations SOCIAL HISTORY Never Assessed REASON FOR VISIT PLAN OF CARE VITAL SIGNS MEDICATIONS Unknown Medications RESULTS No Results PROCEDURES Procedure Date Ordered Result Body Site GLYCATED HEMOGLOBIN TEST Sep 06, 2012 MICROALBUMIN, SEMIQUANT Sep 06, 2012 LIPID PANEL Sep 06, 2012 VENIPUNCT, ROUTINE* Sep 06, 2012 INSTRUCTIONS MEDICATIONS ADMINISTERED No Known Medications MEDICAL (GENERAL) HISTORY Type Description Date Medical History diabetes mellitus Medical History hyperlipidemia Medical History hypertension Surgical History rotator cuff tear repair Surgical History Dr Ac oral surgery x2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
--- OUTSIDE RECORDS SUMMARY | 2019-06-22 21:16 | XMS REPORT ---
Author Author KUN ESCALANTE Organization [facility] Address [address] [place] [address] Care Team Providers Care Staffing Coordinator Name Role Phone KUN ESCALANTE Unavailable PROBLEMS Type Condition ICD9-CM Code WKV43-AM Code Onset Dates Condition Status SNOMED Code Problem Lumbago with sciatica, right side M54.41 Active 329718839 Problem Muscle pain M79.1 Active 67928953 Problem Type 2 diabetes mellitus with complication E11.8 Active 58973234 Problem Neuropathy G62.9 Active 240014280 Problem Bipolar 1 disorder F31.9 Active 967966148 Problem Hypertriglyceridemia E78.1 Active 332813039 ALLERGIES No Information ENCOUNTERS Encounter Location Date Diagnosis [facility] [id number] [place] [address] Jun, [facility] [id number] [place] [address] Jun, [facility] [id number] [place] [address] May, Lumbar back pain with radiculopathy affecting right lower extremity M54.16 ; Cervicalgia M54.2 ; History of streptococcal infection Z86.19 ; Hypertriglyceridemia E78.1 ; Bipolar 1 disorder F31.9 and Does not have health insurance Z59.8 [facility] [id number] [place] [address] 18 May, 2019 Radiculopathy of arm M54.10 [facility] [id number] [place] [address] 15 May, 2019 [facility] [id number] [place] [address] 10 May, 2019 Fever R50.9 [facility] [address], [place] [address] May, [facility] [id number] [place] [address] March, Type 2 diabetes mellitus with complication E11.8 [facility] [id number] [place] [address] March, Patellar tendinitis, right knee M76.51 [facility] [id number] [place] [address] March, Radiculopathy of arm M54.10 [facility] [id number] [place] [address] March, [facility] [id number] [place] [address] 15 Mar, 2019 Type 2 diabetes mellitus with complication E11.8 ; Hoarseness of voice R49.0 and Acute pain of right knee M25.561 [facility] [id number] [place] [address] March, [facility] [id number] [place] [address] March, [facility] [id number] [place] [address] Feb, Bipolar 1 disorder F31.9 [facility] [id number] [place] [address] Feb, Bipolar 1 disorder F31.9 [facility] [id number] [place] [address] Jan, [facility] [id number] [place] [address] 11 Dec, 2018 Type 2 diabetes mellitus with complication E11.8 [facility] [id number] [place] [address] Dec, Acute non-recurrent maxillary sinusitis J01.00 [facility] [id number] [place] [address] Nov, Bipolar 1 disorder F31.9 ; Rash R21 ; Acute non-recurrent maxillary sinusitis J01.00 and Type 2 diabetes mellitus with complication E11.8 [facility] [id number] [place] [address] Oct, Hypertriglyceridemia E78.1 [facility] [address] [address] Oct, Type 2 diabetes mellitus with complication E11.8 and Fatigue due to excessive exertion, initial encounter T73.3XXA [facility] [address] [address] Oct, [place] [address] [address] Sep, [facility] [address] [address] Sep, Radiculopathy of arm M54.10 [facility] [id number] [place] [address] Sep, [facility] [id number] [place] [address] May, [facility] [id number] [place] [address] May, Radiculopathy of arm M54.10 [facility] [id number] [place] [address] May, [facility] [id number] [place] [address] May, [facility] [id number] [place] [address] May, Radiculopathy of arm M54.10 [facility] [address], [place] [address] Apr, Radiculopathy of arm M54.10 [facility] [id number] [address] March, Radiculopathy of arm M54.10 [facility] [id number] [address] March, Radiculopathy of arm M54.10 [facility] [id number] [place] [address] March, Radiculopathy of arm M54.10 [facility] [id number] [place] [address] March, Type 2 diabetes mellitus with complication E11.8 ; Radiculopathy of arm M54.10 and Muscle pain M79.1 [facility] [id number] [place] [address] Feb, Muscle pain M79.1 [facility] [id number] [place] [address] Jan, Type 2 diabetes mellitus with complication E11.8 [facility] [address] [address] Jan, [facility] [address], [place] [address] Dec, Muscle pain M79.1 [facility] [address] [place] [address] Nov, Muscle pain M79.1 and Acute pain of right shoulder M25.511 [facility] [address], [place] [address] Nov, [facility] [address] [address] Nov, [facility] [id number] [place] [address] Nov, Type 2 diabetes mellitus with complication E11.8 [facility] [id number] [place] [address] Nov, Impingement syndrome of left shoulder M75.42 and Impingement syndrome of right shoulder M75.41 [place] [id number] [place] [address] Oct, Type 2 diabetes mellitus with complication E11.8 ; Acute pain of right shoulder M25.511 ; Abscess of finger of right hand L02.511 and Umbilical hernia without obstruction and without gangrene K42.9 [place] [id number] [place] [address] Oct, [facility] [id number] [place] [address] Oct, Mucoid otitis media, unspecified chronicity, unspecified laterality H65.90 and Abscess of finger of right hand L02.511 [place] [id number] [place] [address] Oct, [place] [id number] [place] [address] Sep, [place] [id number] [place] [address] 24 Aug, 2017 [place] [id number] [place] [address] 14 Jul, 2017 Sprain of right acromioclavicular ligament, initial encounter S43.51XA ; Impingement syndrome of left shoulder M75.42 and Impingement syndrome of right shoulder M75.41 [place] [id number] [place] [address] 14 Jul, 2017 Type 2 diabetes mellitus with complication E11.8 [place] [id number] [place] [address] Jun, [place] [address], [place] [address] Jun, Type 2 diabetes mellitus with complication E11.8 ; Lumbago with sciatica, right side M54.41 ; 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 and Pain in left shoulder M25.512 [facility] [id number] [address] May, [facility] [id number] [place] [address] May, [facility] [id number] [place] [address] Apr, Lumbago with sciatica, right side M54.41 and Neck pain on left side M54.2 [facility] [id number] [place] [address] Apr, [facility] [id number] [place] [address] Apr, [facility] [id number] [place] [address] March, [facility] [id number] [place] [address] March, [facility] [id number] [address] Feb, Acute pain of right shoulder M25.511 [facility] [id number] [address] Feb, [facility] [id number] [place] [address] Feb, [facility] [id number] [place] [address] Feb, Type 2 diabetes mellitus with complication E11.8 ; Neuropathy G62.9 and Acute pain of right shoulder M25.511 [facility] [id number] [place] [address] Dec, Type 2 diabetes mellitus with complication E11.8 [facility] [id number] [place] [address] Nov, [facility] [id number] [place] [address] Oct, 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 [facility] [id number] [place] [address] Oct, Type 2 diabetes mellitus with complication E11.8 [facility] [id number] [place] [address] Sep, Type 2 diabetes mellitus with complication E11.8 ; Acute pain of right shoulder M25.511 and Prostate cancer screening Z12.5 [facility] [id number] [place] [address] Sep, [facility] [id number] [place] [address] Jun, [facility] [id number] [place] [address] Jun, Muscle tension headache G44.209 and Bruxism F45.8 [facility] [id number] [place] [address] May, Type 2 diabetes mellitus with complication E11.8 ; Erectile dysfunction, unspecified erectile dysfunction type N52.9 and Neuropathy G62.9 [facility] [id number] [place] [address] Feb, [facility] [id number] [place] [address] Feb, Type 2 diabetes mellitus with complication E11.8 [facility] [id number] [place] [address] Dec, [facility] [address] [place] [address] Dec, Type 2 diabetes mellitus with complication E11.8 [facility] [id number] [place] [address] Nov, Nausea and vomiting, unspecified intactability, vomiting of unspecified type R11.2 [facility] [id number] [place] [address] Oct, Neuropathy G62.9 and Type 2 diabetes mellitus with complication E11.8 [facility] [id number] [place] [address] Sep, [facility] [id number] [place] [address] Sep, [facility] [id number] [place] [address] Sep, Diabetes E11.9 [facility] [address] [address] Sep, [facility] [id number] [place] [address] Jul, [facility] [id number] [place] [address] Jun, [facility] [id number] [place] [address] Jun, Secondary diabetes mellitus with neurological manifestations, not stated as uncontrolled, or unspecified 249.60 ; Other chronic pain 338.29 and Puncture wound 879.8 [facility] [id number] [place] [address] May, [facility] [id number] [place] [address] Apr, [facility] [id number] [place] [address] March, [facility] [id number] [place] [address] Feb, [facility] [place] [facility] [address] [id number] [place] [address] Feb, [facility] [place] [facility] [address] [id number] [place] [address] Jan, [facility] [place] [facility] [address] [id number] [place] [address] Jan, [facility] [place] [facility] [address] [id number] [place] [address] Jan, [facility] [place] [facility] [address] [id number] [place] [address] Jan, [facility] [place] [facility] [address] [id number] [place] [address] Jan, [facility] [place] [facility] [address] [id number] [place] [address] Jan, [facility] [place] [facility] [address] [id number] [place] [address] Jan, [facility] [place] [facility] [address] [id number] [place] [address] Jan, [facility] [place] [facility] [address] [id number] [place] [address] Dec, [facility] [place] [facility] [address] [id number] [place] [address] Dec, [facility] [place] [facility] [address] [id number] [place] [address] Nov, [facility] [place] [facility] [address] [id number] [place] [address] Nov, [facility] [place] [facility] [address] [id number] [place] [address] Nov, [facility] [place] [facility] [address] [id number] [place] [address] Nov, [facility] [place] [facility] [address] [id number] [place] [address] Nov, [facility] [place] [facility] [address] [id number] [place] [address] Nov, [facility] [place] [facility] [address] [id number] [place] [address] Oct, [facility] [place] [facility] [address] [id number] [place] [address] Oct, [facility] [place] [facility] [address] [id number] [place] [address] Oct, [facility] [place] [facility] [address] [id number] [place] [address] Oct, [facility] [place] [facility] [address] [id number] [place] [address] Oct, [facility] [place] [facility] [address] [id number] [place] [address] Oct, [facility] [place] [facility] [address] [id number] [place] [address] Oct, [facility] [place] [facility] [address] [id number] [place] [address] Oct, [facility] [place] [facility] [address] [id number] [place] [address] Oct, [facility] [place] [facility] [address] [id number] [place] [address] Sep, [facility] [place] [facility] [address] [id number] [place] [address] Sep, [facility] [place] [facility] [address] [id number] [place] [address] Sep, [facility] [place] [facility] [address] [id number] [place] [address] Sep, [facility] [place] [facility] [address] [id number] [place] [address] Sep, [facility] [place] [facility] [address] [id number] [place] [address] Sep, [facility] [place] [facility] [address] [id number] [place] [address] Sep, [facility] [place] [facility] [address] [id number] [place] [address] Aug, [facility] [place] [facility] [address] [id number] [place] [address] Aug, [facility] [place] [facility] [address] [id number] [place] [address] Aug, [facility] [place] [facility] [address] [id number] [place] [address] 16 Aug, 2014 [facility] [place] [facility] [address] [id number] [place] [address] Aug, [facility] [place] [facility] [address] [id number], [place] [address] 14 Aug, 2014 [facility] [place] [facility] [address] [id number] [place] [address] 26 Jul, 2014 [facility] [place] [facility] [address] [id number] [place] [address] 25 Jul, 2014 [facility] [place] [facility] [address] [id number], [place] [address] 25 Jul, 2013 [facility] [place] [facility] [address] [id number], [place] [address] 25 Sep, 2013 [facility] [place] [facility] [address] [id number] [place] [address] 25 Jul, 2013 [facility] [place] [facility] [address] [id number], [place] [address] 19 Sep, 2013 [facility] [place] [facility] [address] [id number], [place] [address] 16 Jul, 2013 [facility] [place] [facility] [address] [id number] [place] [address] 16 Jul, 2014 [facility] [place] [facility] [address] [id number] [place] [address] Jul, [facility] [place] [facility] [address] [id number] [place] [address] Jul, [facility] [place] [facility] [address] [id number] [place] [address] Jun, [facility] [place] [facility] [address] [id number] [place] [address] Jun, [facility] [place] [facility] [address] [id number] [place] [address] Jun, [facility] [place] [facility] [address] [id number] [place] [address] Jun, [facility] [place] [facility] [address] [id number] [place] [address] Jun, [facility] [place] [facility] [address] [id number] [place] [address] Jun, [facility] [place] [facility] [address] [id number] [place] [address] Jun, [facility] [place] [facility] [address] [id number] [place] [address] Jun, [facility] [place] [facility] [address] [id number] [place] [address] May, [facility] [place] [facility] [address] [id number] [place] [address] May, [facility] [place] [facility] [address] [id number] [place] [address] May, [facility] [place] [facility] [address] [id number] [place] [address] May, [facility] [place] [facility] [address] [id number] [place] [address] May, [facility] [place] [facility] [address] [id number] [place] [address] May, [facility] [place] [facility] [address] [id number] [place] [address] May, [facility] [place] [facility] [address] [id number] [place] [address] May, [facility] [place] [facility] [address] [id number] [place] [address] May, [facility] [place] [facility] [address] [id number] [place] [address] May, [facility] [place] [facility] [address] [id number] [place] [address] May, [facility] [place] [facility] [address] [id number] [place] [address] May, [facility] [place] [facility] [address] [id number] [place] [address] May, [facility] [place] [facility] [address] [id number] [place] [address] Apr, [facility] [place] [facility] [address] [id number] [place] [address] Apr, [facility] [place] [facility] [address] [id number] [place] [address] Apr, [facility] [place] [facility] [address] [id number] [place] [address] Apr, [facility] [place] [facility] [address] [id number] [place] [address] Apr, [facility] [place] [facility] [address] [id number] [place] [address] Apr, [facility] [place] [facility] [address] [id number] [place] [address] March, [facility] [place] [facility] [address] [id number] [place] [address] March, [facility] [place] [facility] [address] [id number] [place] [address] March, [facility] [place] [facility] [address] [id number] [place] [address] Feb, [facility] [place] [facility] [address] [id number] [place] [address] Feb, [facility] [place] [facility] [address] [id number] [place] [address] Feb, [facility] [place] [facility] [address] [id number] [place] [address] Feb, [facility] [place] [facility] [address] [id number] [place] [address] Feb, [facility] [place] [facility] [address] [id number] [place] [address] Feb, [facility] [facility] [address] [id number] [place] [address] Feb, [facility] [place] [facility] [address] [id number] [place] [address] Feb, [facility] [place] [facility] [address] [id number] [place] [address] Feb, [facility] [place] [facility] [address] [id number] [place] [address] Feb, [facility] [place] [facility] [address] [id number] [place] [address] Feb, [facility] [place] [facility] [address] [id number] [place] [address] Jan, [facility] [place] [facility] [address] [id number] [place] [address] Jan, [facility] [place] [facility] [address] [id number] [place] [address] Jan, [facility] [place] [facility] [address] [id number] [place] [address] Jan, [facility] [place] [facility] [address] [id number] [place] [address] Jan, [facility] [place] [facility] [address] [id number] [place] [address] Jan, [facility] [place] [facility] [address] [id number] [place] [address] Dec, [facility] [place] [facility] [address] [id number] [place] [address] Dec, [facility] [place] [facility] [address] [id number] [place] [address] Dec, [facility] [place] [address] [id number] [place] [address] Dec, [facility] [place] [facility] [address] [id number] [place] [address] Nov, [facility] [address] [id number] [place] [address] Nov, [facility] [address] [id number] [place] [address] Nov, [facility] [address] [id number] [place] [address] Nov, [facility] [address] [id number] [place] [address] Nov, [facility] [place] [address] [id number] [place] [address] Nov, [facility] [place] [address] [id number] [place] [address] Oct, [facility] [place] [facility] [address] [id number] [place] [address] Oct, [facility] [address] [id number] [place] [address] Oct, [facility] [address] [id number] [place] [address] Oct, [facility] [address] [id number], [place] [address] Oct, [facility] [address] [facility] [id number] [place] [address] Oct, [facility] [address] [id number], [place] [address] Sep, [facility] [address] [id number] [place] [address] Sep, [facility] [address] [id number], [place] [address] Sep, [facility] [address] [facility] [id number], [place] [address] Sep, [facility] [address] [id number], [place] [address] Sep, [facility] [address] [id number], [place] [address] Sep, [facility] [address] [facility] [id number], [place] [address] Aug, [facility] [address] [id number], [place] [address] 14 Aug, 2013 [facility] [address] [id number], [place] [address] Aug, [facility] [address] [id number], [place] [address] Aug, [facility] [address] [facility] [id number], [place] [address] 06 Jul, 2013 [facility] [address] [facility] [id number], [place] [address] Jul, [facility] [address] [id number] [place] [address] Jun, [facility] [address] [id number] [place] [address] Jun, [facility] [address] [id number] [place] [address] May, [facility] [address] [id number] [place] [address] May, [facility] [address] [id number] [place] [address] May, [facility] [address] [id number] [place] [address] May, [facility] [address] [id number] [place] [address] May, [facility] [address] [id number] [place] [address] May, [facility] [address] [id number] [place] [address] Apr, [facility] [address] [id number] [place] [address] Apr, [facility] [address] [id number] [place] [address] Apr, [facility] [address] [id number] [place] [address] Apr, [facility] [address] [id number] [place] [address] March, [facility] [address] [id number] [place] [address] March, [facility] [address] [id number] [place] [address] March, [facility] [address] [id number] [place] [address] Feb, [facility] [address] [id number] [place] [address] Feb, [facility] [address] [id number] [place] [address] Jan, [facility] [address] [id number] [place] [address] Dec, [facility] [address] [id number] [place] [address] Dec, [facility] [address] [id number] [place] [address] Dec, [facility] [address] [id number] [place] [address] Dec, [facility] [address] [id number] [place] [address] Dec, [facility] [address] [id number] [place] [address] Nov, [facility] [address] [id number] [place] [address] Nov, [facility] [address] [id number] [place] [address] Nov, [facility] [address] [id number] [place] [address] Nov, [facility] [address] [id number] [place] [address] Nov, [facility] [address] [id number] [place] [address] Oct, [facility] [address] [id number] [place] [address] Oct, [facility] [address] [id number] [place] [address] Oct, [facility] [address] [id number] [place] [address] Oct, [facility] [address] [id number] [place] [address] Sep, [facility] [address] [facility] [id number] [place] [address] Sep, [facility] [address] [facility] [id number] [place] [address] Sep, [facility] [address] [id number] [place] [address] Sep, [facility] [address] [id number] [place] [address] Sep, [facility] [address] [facility] [id number] [place] [address] Sep, [facility] [address] [id number] [address] Sep, [facility] [address] [facility] [id number] [place] [address] Sep, [facility] [address] [facility] [id number] [place] [address] Sep, [facility] [address] [facility] [id number] [place] [address] Sep, [facility] [address] [facility] [id number] [place] [address] Aug, [facility] [address] [facility] [id number], [place] [address] Aug, [facility] [address] [facility] [id number] [place] [address] Aug, [facility] [address] [facility] [id number] [place] [address] Aug, [facility] [address] [facility] [id number], [place] [address] Aug, [facility] [address] [id number] [place] [address] Aug, [facility] [address] [id number] [place] [address] Jul, [facility] [address] [id number] [place] [address] Jun, [facility] [address] [id number] [place] [address] Apr, [facility] [address] [id number] [place] [address] Apr, [facility] [address] [id number] [place] [address] Apr, [facility] [address] [id number] [place] [address] Apr, [facility] [address] [id number] [place] [address] March, [facility] [address] [id number] [place] [address] March, [facility] [address] [id number] [place] [address] March, [facility] [address] [id number] [place] [address] March, [facility] [address] [id number] [place] [address] March, [facility] [address] [id number] [place] [address] Feb, [facility] [address] [id number] [place] [address] Feb, [facility] [address] [id number] [place] [address] Feb, [facility] [address] [id number] [place] [address] Feb, [facility] [address] [id number] [place] [address] Jan, [facility] [address] [id number] [place] [address] Jan, [facility] [address] [facility] [id number] [place] [address] Jan, [facility] [address] [id number] [place] [address] 28 Dec, 2011 [facility] [address] [id number] [place] [address] 15 Dec, 2011 [facility] [address] [facility] [id number] [place] [address] 14 Dec, 2011 [facility] [address] [facility] [id number] [place] [address] Dec, [facility] [address] [facility] [id number] [place] [address] Dec, [facility] [address] [facility] [id number] [place] [address] Nov, [facility] [address] [facility] [id number] [place] [address] Nov, [facility] [address] [facility] [id number] [place] [address] Nov, [facility] [address] [facility] [id number] [place] [address] Oct, [facility] [facility] [address] [id number] [place] [address] Oct, [facility] [address] [facility] [id number] [place] [address] Oct, [facility] [address] [facility] [id number] [place] [address] Sep, [facility] [address] [facility] [id number] [place] [address] 13 Jul, 2011 [facility] [address] [facility] [id number] [place] [address] 16 Apr, 2011 IMMUNIZATIONS No Known Immunizations [...]
--- OUTSIDE RECORDS SUMMARY | 2019-06-22 21:17 | XMS REPORT ---
Author Author KUN ESCALANTE Organization [facility] Address [address] [place] [address] Care Team Providers Care Fitness Trainer Name Role Phone KUN ESCALANTE Unavailable PROBLEMS Type Condition ICD9-CM Code QJZ15-VS Code Onset Dates Condition Status SNOMED Code Problem Lumbago with sciatica, right side M54.41 Active 070208463 Problem Muscle pain M79.1 Active 39139531 Problem Type 2 diabetes mellitus with complication E11.8 Active 52781744 Problem Neuropathy G62.9 Active 517134926 Problem Bipolar 1 disorder F31.9 Active 830183273 Problem Hypertriglyceridemia E78.1 Active [id number] ALLERGIES No Information ENCOUNTERS Encounter Location Date Diagnosis [facility] [id number] [place] [address] May, [facility] [address] [address] May, [facility] [id number] [place] [address] May, Fever R50.9 [facility] [id number] [place] [address] May, [facility] [id number] [place] [address] March, Type 2 diabetes mellitus with complication E11.8 [facility] [id number] [place] [address] March, Patellar tendinitis, right knee M76.51 [facility] [id number] [place] [address] March, Radiculopathy of arm M54.10 [place] [address], [place] [address] March, [facility] [id number] [place] [address] March, Type 2 diabetes mellitus with complication E11.8 ; Hoarseness of voice R49.0 and Acute pain of right knee M25.561 [facility] [id number] [place] [address] March, [facility] [id number] [place] [address] March, [facility] [id number] [place] [address] Feb, Bipolar 1 disorder F31.9 [facility] [id number] [place] [address] Feb, Bipolar 1 disorder F31.9 [facility] [id number] [place] [address] Jan, [facility] [id number] [place] [address] Dec, Type 2 diabetes mellitus with complication E11.8 [facility] [id number] [place] [address] Dec, Acute non-recurrent maxillary sinusitis J01.00 [place] [id number] [place] [address] Nov, Bipolar 1 disorder F31.9 ; Rash R21 ; Acute non-recurrent maxillary sinusitis J01.00 and Type 2 diabetes mellitus with complication E11.8 [facility] [id number] [place] [address] Oct, Hypertriglyceridemia E78.1 [facility] [id number] [place] [address] Oct, Type 2 diabetes mellitus with complication E11.8 and Fatigue due to excessive exertion, initial encounter T73.3XXA [facility] [address] [facility] [id number] [place] [address] Oct, [facility] [address] [facility] [id number], [place] [address] Sep, [facility] [id number] [address] Sep, Radiculopathy of arm M54.10 [facility] [address] [facility] [id number], [place] [address] Sep, [facility] [address] [facility] [id number] [place] [address] May, [facility] [id number], [place] [address] May, Radiculopathy of arm M54.10 [facility] [id number] [address] May, [facility] [id number], [place] [address] May, [facility] [id number], [place] [address] May, Radiculopathy of arm M54.10 [facility] [id number], [place] [address] Apr, Radiculopathy of arm M54.10 [facility] [id number], [place] [address] March, Radiculopathy of arm M54.10 [facility] [id number], [place] [address] March, Radiculopathy of arm M54.10 [facility] [id number], [place] [address] March, Radiculopathy of arm M54.10 [facility] [id number] [place] [address] March, Type 2 diabetes mellitus with complication E11.8 ; Radiculopathy of arm M54.10 and Muscle pain M79.1 [facility] [id number] [place] [address] Feb, Muscle pain M79.1 [facility] [id number] [place] [address] Jan, Type 2 diabetes mellitus with complication E11.8 [facility] [id number] [place] [address] Jan, [facility] [id number] [place] [address] Dec, Muscle pain M79.1 [facility] [id number] [place] [address] Nov, Muscle pain M79.1 and Acute pain of right shoulder M25.511 [facility] [id number] [place] [address] Nov, [facility] [id number] [place] [address] Nov, [facility] [id number] [place] [address] Nov, Type 2 diabetes mellitus with complication E11.8 [facility] [id number] [place] [address] Nov, Impingement syndrome of left shoulder M75.42 and Impingement syndrome of right shoulder M75.41 [facility] [id number] [place] [address] Oct, Type 2 diabetes mellitus with complication E11.8 ; Acute pain of right shoulder M25.511 ; Abscess of finger of right hand L02.511 and Umbilical hernia without obstruction and without gangrene K42.9 [place] [id number] [place] [address] Oct, [facility] [id number] [place] [address] Oct, Mucoid otitis media, unspecified chronicity, unspecified laterality H65.90 and Abscess of finger of right hand L02.511 [place] [id number] [place] [address] Oct, [facility] [id number] [place] [address] Sep, [place] [address] [address] Aug, [facility] [facility] [id number] [place] [address] 14 Jul, 2017 Sprain of right acromioclavicular ligament, initial encounter S43.51XA ; Impingement syndrome of left shoulder M75.42 and Impingement syndrome of right shoulder M75.41 [place] [id number] [place] [address] 14 Jul, 2017 Type 2 diabetes mellitus with complication E11.8 [place] [id number] [place] [address] Jun, [facility] [id number] [place] [address] Jun, Type 2 diabetes mellitus with complication E11.8 ; Lumbago with sciatica, right side M54.41 ; 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 and Pain in left shoulder M25.512 [place] [id number] [place] [address] May, [place] [id number] [place] [address] May, [place] [id number] [place] [address] Apr, Lumbago with sciatica, right side M54.41 and Neck pain on left side M54.2 [facility] [id number] [place] [address] Apr, [facility] [id number] [place] [address] Apr, [facility] [id number] [place] [address] March, [facility] [id number] [place] [address] March, [facility] [id number] [place] [address] Feb, Acute pain of right shoulder M25.511 [facility] [id number] [place] [address] Feb, [facility] [id number] [place] [address] Feb, [facility] [id number] [place] [address] Feb, Type 2 diabetes mellitus with complication E11.8 ; Neuropathy G62.9 and Acute pain of right shoulder M25.511 [facility] [id number] [place] [address] Dec, Type 2 diabetes mellitus with complication E11.8 [facility] [id number] [place] [address] Nov, [facility] [id number] [place] [address] Oct, 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 [facility] [id number] [place] [address] Oct, Type 2 diabetes mellitus with complication E11.8 [facility] [id number] [place] [address] Sep, Type 2 diabetes mellitus with complication E11.8 ; Acute pain of right shoulder M25.511 and Prostate cancer screening Z12.5 [place] [id number] [place] [address] Sep, [facility] [id number] [place] [address] Jun, [place] [address] [address] Jun, Muscle tension headache G44.209 and Bruxism F45.8 [place] [address] [address] May, Type 2 diabetes mellitus with complication E11.8 ; Erectile dysfunction, unspecified erectile dysfunction type N52.9 and Neuropathy G62.9 [place] [address] [address] Feb, [place] [id number] [place] [address] Feb, Type 2 diabetes mellitus with complication E11.8 [place] [id number] [place] [address] Dec, [place] [id number] [place] [address] Dec, Type 2 diabetes mellitus with complication E11.8 [place] [id number] [place] [address] Nov, Nausea and vomiting, unspecified intactability, vomiting of unspecified type R11.2 [place] [address] [address] Oct, Neuropathy G62.9 and Type 2 diabetes mellitus with complication E11.8 [place] [id number] [place] [address] Sep, [place] [address], [place] [address] Sep, [facility] [id number] [place] [address] Sep, Diabetes E11.9 [facility] [id number] [place] [address] Sep, [facility] [id number] [place] [address] Jul, [facility] [id number] [place] [address] Jun, [facility] [id number] [place] [address] Jun, Secondary diabetes mellitus with neurological manifestations, not stated as uncontrolled, or unspecified 249.60 ; Other chronic pain 338.29 and Puncture wound 879.8 [facility] [id number] [place] [address] May, [facility] [id number] [place] [address] Apr, [facility] [id number] [place] [address] March, [facility] [address], [place] [address] Feb, [facility] [address], [place] [address] Feb, [facility] [address], [place] [address] Jan, [facility] [id number] [place] [address] Jan, [facility] [address], [place] [address] Jan, [facility] [id number] [place] [address] Jan, [facility] [place] [facility] [address] [id number] [place] [address] Jan, [facility] [place] [facility] [address] [id number] [place] [address] Jan, [facility] [place] [facility] [address] [id number] [place] [address] Jan, [facility] [place] [facility] [address] [id number] [place] [address] Jan, [facility] [place] [facility] [address] [id number] [place] [address] Dec, [facility] [place] [facility] [address] [id number] [place] [address] Dec, [facility] [place] [facility] [address] [id number] [place] [address] Nov, [facility] [place] [facility] [address] [id number] [place] [address] Nov, [facility] [place] [facility] [address] [id number] [place] [address] Nov, [facility] [place] [facility] [address] [id number] [place] [address] Nov, [facility] [place] [facility] [address] [id number], [place] [address] Nov, [facility] [place] [facility] [address] [id number], [place] [address] Nov, [facility] [place] [facility] [address] [id number] [place] [address] Oct, [facility] [place] [facility] [address] [id number] [place] [address] Oct, [facility] [place] [facility] [address] [id number] [place] [address] Oct, [facility] [place] [facility] [address] [id number] [place] [address] Oct, [facility] [place] [facility] [address] [id number] [place] [address] Oct, [facility] [place] [facility] [address] [id number] [place] [address] Oct, [facility] [place] [facility] [address] [id number] [place] [address] Oct, [facility] [place] [facility] [address] [id number] [place] [address] Oct, [facility] [place] [facility] [address] [id number] [place] [address] Oct, [facility] [place] [facility] [address] [id number] [place] [address] Sep, [facility] [place] [facility] [address] [id number] [place] [address] Sep, [facility] [place] [facility] [address] [id number] [place] [address] Sep, [facility] [place] [facility] [address] [id number] [place] [address] Sep, [facility] [place] [facility] [address] [facility] [id number] [place] [address] Sep, [facility] [place] [facility] [address] [id number] [place] [address] Sep, [facility] [place] [facility] [address] [id number] [place] [address] Sep, [facility] [place] [facility] [address] [id number] [place] [address] Aug, [facility] [place] [facility] [address] [id number] [place] [address] Aug, [facility] [place] [facility] [address] [id number] [place] [address] Aug, [facility] [place] [facility] [address] [id number] [place] [address] 16 Aug, 2014 [facility] [place] [facility] [address] [id number] [place] [address] 14 Aug, 2014 [facility] [place] [facility] [address] [id number] [place] [address] 14 Aug, 2014 [facility] [place] [facility] [address] [id number] [place] [address] 26 Jul, 2013 [facility] [place] [facility] [address] [id number] [place] [address] 25 Jul, 2013 [facility] [place] [facility] [address] [id number] [place] [address] 25 Jul, 2013 [facility] [place] [facility] [address] [id number] [place] [address] 25 Jul, 2013 [facility] [place] [facility] [address] [id number] [place] [address] 25 Jul, 2013 [facility] [place] [facility] [address] [id number] [place] [address] 19 Jul, 2013 [facility] [place] [facility] [address] [id number] [place] [address] 16 Jul, 2013 [facility] [place] [facility] [address] [id number], [place] [address] 16 Jul, 2014 [facility] [place] [facility] [address] [id number], [place] [address] 08 Jul, 2013 [facility] [place] [facility] [address] [id number] [place] [address] 08 Jul, 2014 [facility] [place] [facility] [address] [id number] [place] [address] Jun, [facility] [place] [facility] [address] [id number], [place] [address] Jun, [facility] [place] [facility] [address] [id number], [place] [address] Jun, [facility] [place] [facility] [address] [id number] [place] [address] Jun, [facility] [place] [facility] [address] [id number] [place] [address] Jun, [facility] [place] [facility] [address] [id number] [place] [address] Jun, [facility] [place] [facility] [address] [id number] [place] [address] Jun, [facility] [place] [facility] [address] [id number] [place] [address] Jun, [facility] [place] [facility] [address] [id number] [place] [address] May, [facility] [place] [facility] [address] [id number] [place] [address] May, [facility] [place] [facility] [address] [id number] [place] [address] May, [facility] [place] [facility] [address] [id number] [place] [address] May, [facility] [place] [facility] [address] [id number] [place] [address] May, [facility] [place] [facility] [address] [id number] [place] [address] May, [facility] [place] [facility] [address] [id number] [place] [address] May, [facility] [place] [facility] [address] [id number] [place] [address] May, [facility] [place] [facility] [address] [id number] [place] [address] May, [facility] [place] [facility] [address] [id number] [place] [address] May, [facility] [place] [facility] [address] [id number] [place] [address] May, [facility] [place] [facility] [address] [id number] [place] [address] May, [facility] [place] [facility] [address] [id number] [place] [address] May, [facility] [place] [facility] [address] [id number] [place] [address] Apr, [facility] [place] [facility] [address] [id number] [place] [address] Apr, [facility] [place] [facility] [address] [id number] [place] [address] Apr, [facility] [place] [facility] [address] [id number] [place] [address] Apr, [facility] [place] [facility] [address] [id number] [place] [address] Apr, [facility] [place] [facility] [address] [id number] [place] [address] Apr, [facility] [place] [facility] [address] [id number] [place] [address] March, [facility] [place] [facility] [address] [id number] [place] [address] March, [facility] [place] [facility] [address] [id number] [place] [address] March, [facility] [place] [facility] [address] [id number] [place] [address] Feb, [facility] [place] [facility] [address] [id number] [place] [address] Feb, [facility] [place] [facility] [address] [id number] [place] [address] Feb, [facility] [place] [facility] [address] [id number] [place] [address] Feb, [facility] [place] [facility] [address] [id number] [place] [address] Feb, [facility] [place] [facility] [address] [id number] [place] [address] Feb, [facility] [place] [facility] [address] [id number] [place] [address] Feb, [facility] [place] [facility] [address] [id number] [place] [address] Feb, [facility] [place] [facility] [address] [id number] [place] [address] Feb, [facility] [place] [facility] [address] [id number] [place] [address] Feb, [facility] [place] [facility] [address] [id number] [place] [address] Feb, [facility] [place] [facility] [address] [id number] [place] [address] Jan, [facility] [place] [facility] [address] [id number] [place] [address] Jan, [facility] [place] [facility] [address] [id number] [place] [address] Jan, [facility] [place] [facility] [address] [id number] [place] [address] Jan, [facility] [place] [facility] [address] [id number], [place] [address] Jan, [facility] [place] [facility] [address] [id number] [place] [address] Jan, [facility] [place] [facility] [address] [id number] [place] [address] Dec, [facility] [place] [facility] [address] [id number] [place] [address] Dec, [facility] [place] [facility] [address] [id number] [place] [address] Dec, [facility] [address] [id number] [place] [address] Dec, [facility] [address] [id number] [place] [address] Nov, [facility] [address] [id number] [place] [address] Nov, [facility] [address] [id number] [place] [address] Nov, [facility] [address] [id number] [place] [address] Nov, [facility] [address] [id number] [place] [address] Nov, [facility] [address] [facility] [id number] [place] [address] Nov, [facility] [address] [id number] [place] [address] Oct, [facility] [address] [id number] [place] [address] Oct, [facility] [address] [facility] [id number] [place] [address] Oct, [facility] [place] [facility] [address] [id number] [place] [address] Oct, [facility] [address] [id number] [place] [address] Oct, [facility] [place] [facility] [address] [id number] [place] [address] Oct, [facility] [place] [facility] [address] [facility] [id number] [place] [address] Sep, [facility] [address] [id number] [place] [address] Sep, [facility] [place] [facility] [address] [id number] [place] [address] Sep, [facility] [place] [facility] [address] [id number] [place] [address] Sep, [facility] [place] [facility] [address] [id number] [place] [address] Sep, [facility] [place] [facility] [address] [id number] [place] [address] Sep, [facility] [place] [facility] [address] [id number] [place] [address] Aug, [facility] [place] [facility] [address] [id number] [place] [address] Aug, [facility] [place] [facility] [address] [id number] [place] [address] Aug, [facility] [place] [facility] [address] [id number], [place] [address] Aug, [facility] [place] [facility] [address] [id number] [place] [address] Jul, [facility] [place] [facility] [address] [id number], [place] [address] Jul, [facility] [place] [facility] [address] [facility] [id number], [place] [address] Jun, [facility] [place] [facility] [address] [id number], [place] [address] Jun, [facility] [place] [facility] [address] [id number] [place] [address] May, [facility] [place] [facility] [address] [id number], [place] [address] May, [facility] [place] [facility] [address] [id number], [place] [address] May, [facility] [place] [facility] [address] [id number], [place] [address] May, [facility] [address] [id number] [place] [address] May, [facility] [place] [facility] [address] [id number] [place] [address] May, [facility] [address] [id number] [place] [address] Apr, [facility] [place] [facility] [address] [id number] [place] [address] Apr, [facility] [address] [address] [id number] [place] [address] Apr, [facility] [address] [id number] [place] [address] Apr, [facility] [address] [id number] [place] [address] March, [facility] [address] [id number] [place] [address] March, [facility] [address] [id number] [place] [address] March, [facility] [address] [id number] [place] [address] Feb, [facility] [place] [facility] [address] [id number] [place] [address] Feb, [facility] [place] [facility] [address] [id number] [place] [address] Jan, [facility] [place] [facility] [address] [id number] [place] [address] Dec, [facility] [place] [facility] [address] [id number] [place] [address] Dec, [facility] [place] [facility] [address] [facility] [id number] [place] [address] Dec, [facility] [place] [facility] [address] [id number] [place] [address] Dec, [facility] [address] [id number] [place] [address] Dec, [facility] [address] [id number] [place] [address] Nov, [facility] [address] [id number] [place] [address] Nov, [facility] [address] [id number] [place] [address] Nov, [facility] [address] [id number] [place] [address] Nov, [facility] [address] [id number] [place] [address] Nov, [facility] [address] [id number] [place] [address] Oct, [facility] [address] [id number] [place] [address] Oct, [facility] [address] [id number] [place] [address] Oct, [facility] [address] [id number] [place] [address] Oct, [facility] [address] [id number] [place] [address] Sep, [facility] [place] [facility] [address] [id number] [place] [address] Sep, [facility] [place] [facility] [address] [id number] [place] [address] Sep, [facility] [place] [facility] [address] [id number] [place] [address] 15 Sep, 2012 [facility] [place] [facility] [address] [id number] [place] [address] Sep, [facility] [place] [facility] [address] [id number] [place] [address] Sep, [facility] [place] [facility] [address] [id number] [place] [address] Sep, [facility] [place] [facility] [address] [id number] [place] [address] Sep, [facility] [place] [facility] [address] [id number] [place] [address] Sep, [facility] [place] [facility] [address] [id number] [place] [address] Sep, [facility] [place] [facility] [address] [id number] [place] [address] Aug, [facility] [place] [facility] [address] [id number] [place] [address] Aug, [facility] [place] [facility] [address] [id number] [place] [address] Aug, [facility] [place] [facility] [address] [id number] [place] [address] Aug, [facility] [place] [facility] [address] [id number] [place] [address] Aug, [facility] [place] [facility] [address] [id number], [place] [address] Aug, [facility] [place] [facility] [address] [id number], [place] [address] Jul, [facility] [place] [facility] [address] [id number] [place] [address] Jun, [facility] [place] [facility] [address] [id number] [place] [address] Apr, [facility] [place] [facility] [address] [id number] [place] [address] Apr, [facility] [place] [facility] [address] [id number] [place] [address] Apr, [facility] [address] [id number] [place] [address] Apr, [facility] [address] [id number] [place] [address] March, [facility] [address] [id number] [place] [address] March, [facility] [address] [id number] [place] [address] March, [facility] [address] [id number] [place] [address] March, [facility] [address] [id number] [place] [address] March, [facility] [address] [id number] [place] [address] Feb, [facility] [address] [id number] [place] [address] Feb, [facility] [address] [id number] [place] [address] Feb, [facility] [address] [id number] [place] [address] Feb, [facility] [address] [id number] [place] [address] Jan, [facility] [address] [id number] [place] [address] Jan, [facility] [place] [facility] [address] [id number] [place] [address] 05 Jan, 2012 [facility] [place] [facility] [address] [id number] [place] [address] 28 Dec, 2011 [facility] [address] [id number] [place] [address] 15 Dec, 2011 [facility] [id number] [address] 14 Dec, 2011 [facility] [id number], [place] [address] 08 Dec, 2011 [facility] [id number], [place] [address] Dec, [facility] [id number], [place] [address] Nov, [facility] [id number], [place] [address] Nov, [facility] [id number], [place] [address] Nov, [facility] [id number], [place] [address] Oct, [facility] [id number], [place] [address] Oct, [facility] [id number], [place] [address] Oct, [facility] [id number], [place] [address] Sep, [facility] [id number], [place] [address] Jul, [facility] [address] [id number] [address] Apr, IMMUNIZATIONS No Known Immunizations SOCIAL HISTORY [...]
--- OUTSIDE RECORDS SUMMARY | 2019-06-22 21:17 | XMS REPORT ---
Author Author KUN ESCALANTE Organization [facility] Address [address] [place] [address] Care Team Providers Care Remote Sensing Research Scientist Name Role Phone KUN ESCALANTE Unavailable PROBLEMS Type Condition ICD9-CM Code JYZ40-KV Code Onset Dates Condition Status SNOMED Code Problem Lumbago with sciatica, right side M54.41 Active 205120213 Problem Muscle pain M79.1 Active 49513057 Problem Type 2 diabetes mellitus with complication E11.8 Active 80214128 Problem Neuropathy G62.9 Active 277762397 Problem Bipolar 1 disorder F31.9 Active 012637607 Problem Hypertriglyceridemia E78.1 Active [id number] ALLERGIES No Information ENCOUNTERS Encounter Location Date Diagnosis [facility] [id number] [place] [id number] May, [facility] [address] [address] May, [facility] [id number] [place] [address] May, Fever R50.9 [facility] [id number] [place] [address] May, [facility] [id number] [place] [address] March, Type 2 diabetes mellitus with complication E11.8 [facility] [id number] [place] [address] March, Patellar tendinitis, right knee M76.51 [facility] [id number] [place] [address] March, Radiculopathy of arm M54.10 [place] [address] [address] March, [facility] [id number] [place] [address] March, Type 2 diabetes mellitus with complication E11.8 ; Hoarseness of voice R49.0 and Acute pain of right knee M25.561 [facility] [id number] [place] [address] March, [facility] [id number] [place] [address] March, [facility] [id number] [place] [address] Feb, Bipolar 1 disorder F31.9 [place] [id number] [place] [address] Feb, Bipolar 1 disorder F31.9 [facility] [id number] [place] [address] Jan, [facility] [id number] [place] [address] Dec, Type 2 diabetes mellitus with complication E11.8 [facility] [id number] [place] [address] Dec, Acute non-recurrent maxillary sinusitis J01.00 [place] [id number] [place] [address] Nov, Bipolar 1 disorder F31.9 ; Rash R21 ; Acute non-recurrent maxillary sinusitis J01.00 and Type 2 diabetes mellitus with complication E11.8 [facility] [id number] [place] [address] Oct, Hypertriglyceridemia E78.1 [facility] [id number] [place] [address] Oct, Type 2 diabetes mellitus with complication E11.8 and Fatigue due to excessive exertion, initial encounter T73.3XXA [facility] [address] [facility] [id number] [place] [address] Oct, [facility] [address] [facility] [id number], [place] [address] Sep, [facility] [id number] [address] Sep, Radiculopathy of arm M54.10 [facility] [address] [facility] [id number], [place] [address] Sep, [facility] [address] [facility] [id number] [place] [address] May, [facility] [id number] [address] May, Radiculopathy of arm M54.10 [facility] [id number], [place] [address] May, [facility] [id number] [address] May, [facility] [id number] [address] May, Radiculopathy of arm M54.10 [facility] [id number] [address] Apr, Radiculopathy of arm M54.10 [facility] [id number], [place] [address] March, Radiculopathy of arm M54.10 [facility] [id number], [place] [address] March, Radiculopathy of arm M54.10 [facility] [id number], [place] [address] March, Radiculopathy of arm M54.10 [facility] [id number] [place] [address] March, Type 2 diabetes mellitus with complication E11.8 ; Radiculopathy of arm M54.10 and Muscle pain M79.1 [facility] [id number] [place] [address] Feb, Muscle pain M79.1 [facility] [id number] [place] [address] Jan, Type 2 diabetes mellitus with complication E11.8 [facility] [id number] [place] [address] Jan, [place] [id number] [place] [address] Dec, Muscle pain M79.1 [place] [id number] [place] [address] Nov, Muscle pain M79.1 and Acute pain of right shoulder M25.511 [facility] [id number] [place] [address] Nov, [place] [id number] [place] [address] Nov, [place] [facility] [id number] [place] [address] Nov, Type 2 diabetes mellitus with complication E11.8 [facility] [id number] [place] [address] Nov, Impingement syndrome of left shoulder M75.42 and Impingement syndrome of right shoulder M75.41 [place] [id number] [place] [address] Oct, Type 2 diabetes mellitus with complication E11.8 ; Acute pain of right shoulder M25.511 ; Abscess of finger of right hand L02.511 and Umbilical hernia without obstruction and without gangrene K42.9 [place] [id number] [place] [address] Oct, [facility] [id number] [place] [address] Oct, Mucoid otitis media, unspecified chronicity, unspecified laterality H65.90 and Abscess of finger of right hand L02.511 [place] [id number] [place] [address] Oct, [place] [id number] [place] [address] Sep, [place] [address] [address] Aug, [place] [id number] [place] [address] 14 Jul, 2017 Sprain of right acromioclavicular ligament, initial encounter S43.51XA ; Impingement syndrome of left shoulder M75.42 and Impingement syndrome of right shoulder M75.41 [place] [id number] [place] [address] 14 Jul, 2017 Type 2 diabetes mellitus with complication E11.8 [place] [id number] [place] [address] Jun, [place] [id number] [place] [address] Jun, Type 2 diabetes mellitus with complication E11.8 ; Lumbago with sciatica, right side M54.41 ; 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 and Pain in left shoulder M25.512 [place] [id number] [place] [address] May, [place] [id number] [place] [address] May, [place] [id number] [place] [address] Apr, Lumbago with sciatica, right side M54.41 and Neck pain on left side M54.2 [facility] [id number] [place] [address] Apr, [facility] [id number] [place] [address] Apr, [facility] [id number] [place] [address] March, [facility] [id number] [place] [address] March, [facility] [id number] [place] [address] Feb, Acute pain of right shoulder M25.511 [facility] [id number] [place] [address] Feb, [facility] [id number] [place] [address] Feb, [facility] [id number] [place] [address] Feb, Type 2 diabetes mellitus with complication E11.8 ; Neuropathy G62.9 and Acute pain of right shoulder M25.511 [facility] [id number] [place] [address] Dec, Type 2 diabetes mellitus with complication E11.8 [facility] [id number] [place] [address] Nov, [facility] [id number] [place] [address] Oct, 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 [facility] [id number] [place] [address] Oct, Type 2 diabetes mellitus with complication E11.8 [facility] [id number] [place] [address] Sep, Type 2 diabetes mellitus with complication E11.8 ; Acute pain of right shoulder M25.511 and Prostate cancer screening Z12.5 [place] [id number] [place] [address] Sep, [facility] [id number] [place] [address] Jun, [place] [address] [address] Jun, Muscle tension headache G44.209 and Bruxism F45.8 [place] [address] [address] May, Type 2 diabetes mellitus with complication E11.8 ; Erectile dysfunction, unspecified erectile dysfunction type N52.9 and Neuropathy G62.9 [place] [address] [address] Feb, [place] [id number] [place] [address] Feb, Type 2 diabetes mellitus with complication E11.8 [place] [id number] [place] [address] Dec, [place] [id number] [place] [address] Dec, Type 2 diabetes mellitus with complication E11.8 [place] [id number] [place] [address] Nov, Nausea and vomiting, unspecified intactability, vomiting of unspecified type R11.2 [place] [address] [address] Oct, Neuropathy G62.9 and Type 2 diabetes mellitus with complication E11.8 [place] [id number] [place] [address] Sep, [place] [address], [place] [address] Sep, [facility] [id number] [place] [address] Sep, Diabetes E11.9 [facility] [id number] [place] [address] Sep, [facility] [id number] [place] [address] Jul, [facility] [id number] [place] [address] Jun, [facility] [id number] [place] [address] Jun, Secondary diabetes mellitus with neurological manifestations, not stated as uncontrolled, or unspecified 249.60 ; Other chronic pain 338.29 and Puncture wound 879.8 [facility] [id number] [place] [address] May, [facility] [address] [place] [address] Apr, [facility] [id number] [place] [address] March, [facility] [address], [place] [address] Feb, [facility] [address], [place] [address] Feb, [facility] [address], [place] [address] Jan, [facility] [id number] [place] [address] Jan, [facility] [address], [place] [address] Jan, [facility] [address] [place] [address] Jan, [facility] [place] [facility] [address] [id number] [place] [address] Jan, [facility] [place] [facility] [address] [id number] [place] [address] Jan, [facility] [place] [facility] [address] [id number] [place] [address] Jan, [facility] [place] [facility] [address] [id number] [place] [address] Jan, [facility] [place] [facility] [address] [id number] [place] [address] Dec, [facility] [place] [facility] [address] [id number] [place] [address] Dec, [facility] [place] [facility] [address] [id number] [place] [address] Nov, [facility] [place] [facility] [address] [id number] [place] [address] Nov, [facility] [place] [facility] [address] [id number] [place] [address] Nov, [facility] [place] [facility] [address] [id number] [place] [address] Nov, [facility] [place] [facility] [address] [id number], [place] [address] Nov, [facility] [place] [facility] [address] [id number], [place] [address] Nov, [facility] [place] [facility] [address] [id number] [place] [address] Oct, [facility] [place] [facility] [address] [id number] [place] [address] Oct, [facility] [place] [facility] [address] [id number] [place] [address] Oct, [facility] [place] [facility] [address] [id number] [place] [address] Oct, [facility] [place] [facility] [address] [id number] [place] [address] Oct, [facility] [place] [facility] [address] [id number] [place] [address] Oct, [facility] [place] [facility] [address] [id number] [place] [address] Oct, [facility] [place] [facility] [address] [id number] [place] [address] Oct, [facility] [place] [facility] [address] [id number] [place] [address] Oct, [facility] [place] [facility] [address] [id number] [place] [address] Sep, [facility] [place] [facility] [address] [id number] [place] [address] Sep, [facility] [place] [facility] [address] [id number] [place] [address] Sep, [facility] [place] [facility] [address] [id number] [place] [address] Sep, [facility] [place] [facility] [address] [facility] [id number] [place] [address] Sep, [facility] [place] [facility] [address] [id number] [place] [address] Sep, [facility] [place] [facility] [address] [id number] [place] [address] Sep, [facility] [place] [facility] [address] [id number] [place] [address] Aug, [facility] [place] [facility] [address] [id number] [place] [address] Aug, [facility] [place] [facility] [address] [id number] [place] [address] Aug, [facility] [place] [facility] [address] [id number] [place] [address] 16 Aug, 2014 [facility] [place] [facility] [address] [id number] [place] [address] 14 Aug, 2014 [facility] [place] [facility] [address] [id number] [place] [address] 14 Aug, 2014 [facility] [place] [facility] [address] [id number] [place] [address] 26 Jul, 2013 [facility] [place] [facility] [address] [id number] [place] [address] 25 Jul, 2013 [facility] [place] [facility] [address] [id number] [place] [address] 25 Jul, 2013 [facility] [place] [facility] [address] [id number] [place] [address] 25 Jul, 2013 [facility] [place] [facility] [address] [id number] [place] [address] 25 Jul, 2013 [facility] [place] [facility] [address] [id number] [place] [address] 19 Jul, 2013 [facility] [place] [facility] [address] [id number] [place] [address] 16 Jul, 2013 [facility] [place] [facility] [address] [id number], [place] [address] 16 Jul, 2014 [facility] [place] [facility] [address] [id number], [place] [address] 08 Jul, 2013 [facility] [place] [facility] [address] [id number] [place] [address] 08 Jul, 2014 [facility] [place] [facility] [address] [id number] [place] [address] Jun, [facility] [place] [facility] [address] [id number], [place] [address] Jun, [facility] [place] [facility] [address] [id number], [place] [address] Jun, [facility] [place] [facility] [address] [id number] [place] [address] Jun, [facility] [place] [facility] [address] [id number] [place] [address] Jun, [facility] [place] [facility] [address] [id number] [place] [address] Jun, [facility] [place] [facility] [address] [id number] [place] [address] Jun, [facility] [place] [facility] [address] [id number] [place] [address] Jun, [facility] [place] [facility] [address] [id number] [place] [address] May, [facility] [place] [facility] [address] [id number] [place] [address] May, [facility] [place] [facility] [address] [id number] [place] [address] May, [facility] [place] [facility] [address] [id number] [place] [address] May, [facility] [place] [facility] [address] [id number] [place] [address] May, [facility] [place] [facility] [address] [id number] [place] [address] May, [facility] [place] [facility] [address] [id number] [place] [address] May, [facility] [place] [facility] [address] [id number] [place] [address] May, [facility] [place] [facility] [address] [id number] [place] [address] May, [facility] [place] [facility] [address] [id number] [place] [address] May, [facility] [place] [facility] [address] [id number] [place] [address] May, [facility] [place] [facility] [address] [id number] [place] [address] May, [facility] [place] [facility] [address] [id number] [place] [address] May, [facility] [place] [facility] [address] [id number] [place] [address] Apr, [facility] [place] [facility] [address] [id number] [place] [address] Apr, [facility] [place] [facility] [address] [id number] [place] [address] Apr, [facility] [place] [facility] [address] [id number] [place] [address] Apr, [facility] [place] [facility] [address] [id number] [place] [address] Apr, [facility] [place] [facility] [address] [id number] [place] [address] Apr, [facility] [place] [facility] [address] [id number] [place] [address] March, [facility] [place] [facility] [address] [id number] [place] [address] March, [facility] [place] [facility] [address] [id number] [place] [address] March, [facility] [place] [facility] [address] [id number] [place] [address] Feb, [facility] [place] [facility] [address] [id number] [place] [address] Feb, [facility] [place] [facility] [address] [id number] [place] [address] Feb, [facility] [place] [facility] [address] [id number] [place] [address] Feb, [facility] [place] [facility] [address] [id number] [place] [address] Feb, [facility] [place] [facility] [address] [id number] [place] [address] Feb, [facility] [place] [facility] [address] [id number] [place] [address] Feb, [facility] [place] [facility] [address] [id number] [place] [address] Feb, [facility] [place] [facility] [address] [id number] [place] [address] Feb, [facility] [place] [facility] [address] [id number] [place] [address] Feb, [facility] [place] [facility] [address] [id number] [place] [address] Feb, [facility] [place] [facility] [address] [id number] [place] [address] Jan, [facility] [place] [facility] [address] [id number] [place] [address] Jan, [facility] [place] [facility] [address] [id number] [place] [address] Jan, [facility] [place] [facility] [address] [id number] [place] [address] Jan, [facility] [place] [facility] [address] [id number], [place] [address] Jan, [facility] [place] [facility] [address] [id number] [place] [address] Jan, [facility] [place] [facility] [address] [id number] [place] [address] Dec, [facility] [place] [facility] [address] [id number] [place] [address] Dec, [facility] [place] [facility] [address] [id number] [place] [address] Dec, [facility] [address] [id number] [place] [address] Dec, [facility] [address] [id number] [place] [address] Nov, [facility] [address] [id number] [place] [address] Nov, [facility] [address] [id number] [place] [address] Nov, [facility] [address] [id number] [place] [address] Nov, [facility] [address] [id number] [place] [address] Nov, [facility] [address] [facility] [id number] [place] [address] Nov, [facility] [address] [id number] [place] [address] Oct, [facility] [address] [id number] [place] [address] Oct, [facility] [address] [facility] [id number] [place] [address] Oct, [facility] [place] [facility] [address] [id number] [place] [address] Oct, [facility] [address] [id number] [place] [address] Oct, [facility] [place] [facility] [address] [id number] [place] [address] Oct, [facility] [place] [facility] [address] [facility] [id number] [place] [address] Sep, [facility] [address] [id number] [place] [address] Sep, [facility] [place] [facility] [address] [id number] [place] [address] Sep, [facility] [place] [facility] [address] [id number] [place] [address] Sep, [facility] [place] [facility] [address] [id number] [place] [address] Sep, [facility] [place] [facility] [address] [id number] [place] [address] Sep, [facility] [place] [facility] [address] [id number] [place] [address] Aug, [facility] [place] [facility] [address] [id number] [place] [address] Aug, [facility] [place] [facility] [address] [id number] [place] [address] Aug, [facility] [place] [facility] [address] [id number], [place] [address] Aug, [facility] [place] [facility] [address] [id number] [place] [address] Jul, [facility] [place] [facility] [address] [id number], [place] [address] Jul, [facility] [place] [facility] [address] [facility] [id number], [place] [address] Jun, [facility] [place] [facility] [address] [id number], [place] [address] Jun, [facility] [place] [facility] [address] [id number] [place] [address] May, [facility] [place] [facility] [address] [id number], [place] [address] May, [facility] [place] [facility] [address] [id number][place] [address] May, [facility] [place] [facility] [address] [id number], [place] [address] May, [facility] [address] [id number] [place] [address] May, [facility] [place] [facility] [address] [id number] [place] [address] May, [facility] [address] [id number] [place] [address] Apr, [facility] [place] [facility] [address] [id number] [place] [address] Apr, [facility] [address] [id number] [place] [address] Apr, [facility] [address] [id number] [place] [address] Apr, [facility] [address] [id number] [place] [address] March, [facility] [address] [id number] [place] [address] March, [facility] [address] [id number] [place] [address] March, [facility] [address] [id number] [place] [address] Feb, [facility] [place] [facility] [address] [id number] [place] [address] Feb, [facility] [place] [facility] [address] [id number] [place] [address] Jan, [facility] [place] [facility] [address] [id number] [place] [address] Dec, [facility] [place] [facility] [address] [id number] [place] [address] Dec, [facility] [place] [facility] [address] [facility] [id number] [place] [address] Dec, [facility] [place] [facility] [address] [id number] [place] [address] Dec, [facility] [address] [id number] [place] [address] Dec, [facility] [address] [id number] [place] [address] Nov, [facility] [address] [id number] [place] [address] Nov, [facility] [address] [id number] [place] [address] Nov, [facility] [address] [id number] [place] [address] Nov[facility] [address] [id number] [place] [address] Nov, [facility] [address] [id number] [place] [address] Oct, [facility] [address] [id number] [place] [address] Oct, [facility] [address] [id number] [place] [address] Oct, [facility] [address] [id number] [place] [address] Oct, [facility] [address] [id number] [place] [address] Sep, [facility] [place] [facility] [address] [id number] [place] [address] Sep, [facility] [place] [facility] [address] [id number] [place] [address] Sep, [facility] [place] [facility] [address] [id number] [place] [address] 15 Sep, 2012 [facility] [place] [facility] [address] [id number] [place] [address] Sep, [facility] [place] [facility] [address] [id number] [place] [address] Sep, [facility] [place] [facility] [address] [id number] [place] [address] Sep, [facility] [place] [facility] [address] [id number] [place] [address] Sep, [facility] [place] [facility] [address] [id number] [place] [address] Sep, [facility] [place] [facility] [address] [id number] [place] [address] Sep, [facility] [place] [facility] [address] [id number] [place] [address] Aug, [facility] [place] [facility] [address] [id number] [place] [address] Aug, [facility] [place] [facility] [address] [id number] [place] [address] Aug, [facility] [place] [facility] [address] [id number] [place] [address] Aug, [facility] [place] [facility] [address] [id number] [place] [address] Aug, [facility] [place] [facility] [address] [id number], [place] [address] Aug, [facility] [place] [facility] [address] [id number], [place] [address] Jul, [facility] [place] [facility] [address] [id number] [place] [address] Jun, [facility] [place] [facility] [address] [id number] [place] [address] Apr, [facility] [place] [facility] [address] [id number] [place] [address] Apr, [facility] [place] [facility] [address] [id number] [place] [address] Apr, [facility] [address] [id number] [place] [address] Apr, [facility] [address] [id number] [place] [address] March, [facility] [address] [id number] [place] [address] March, [facility] [address] [id number] [place] [address] March, [facility] [address] [id number] [place] [address] March, [facility] [address] [id number] [place] [address] March, [facility] [address] [id number] [place] [address] Feb, [facility] [address] [id number] [place] [address] Feb, [facility] [address] [id number] [place] [address] Feb, [facility] [address] [id number] [place] [address] Feb, [facility] [address] [id number] [place] [address] Jan, [facility] [address] [id number] [place] [address] Jan, [facility] [place] [facility] [address] [id number] [place] [address] 05 Jan, 2012 [facility] [place] [facility] [address] [id number] [place] [address] 28 Dec, 2011 [facility] [address] [id number] [place] [address] 15 Dec, 2011 [facility] [id number], [place] [address] 14 Dec, 2011 [facility] [id number], [place] [address] 08 Dec, 2011 [facility] [id number], [place] [address] Dec, [facility] [id number], [place] [address] Nov, [facility] [id number], [place] [address] Nov, [facility] [id number], [place] [address] Nov, [facility] [id number], [place] [address] Oct, [facility] [id number], [place] [address] Oct, [facility] [id number], [place] [address] Oct, [facility] [id number], [place] [address] Sep, [facility] [id number], [place] [address] Jul, [facility] [address] [id number] [address] Apr, IMMUNIZATIONS No Known Immunizations SOCIAL HISTORY [...]
--- OUTSIDE RECORDS SUMMARY | 2019-06-22 21:18 | XMS REPORT ---
Author Author KUN ESCALANTE Organization [facility] Address [address] [place] [address] Care Team Providers Care Paper Cleaner Name Role Phone KUN ESCALANTE Unavailable PROBLEMS Type Condition ICD9-CM Code [id number] Code Onset Dates Condition Status SNOMED Code Problem Lumbago with sciatica, right side M54.41 Active 106753207 Problem Muscle pain M79.1 Active 97504221 Problem Type 2 diabetes mellitus with complication E11.8 Active 37305285 Problem Neuropathy G62.9 Active 204724357 Problem Bipolar 1 disorder F31.9 Active 478521318 Problem Hypertriglyceridemia E78.1 Active 952007925 ALLERGIES No Information ENCOUNTERS Encounter Location Date Diagnosis [place] [address] [address] March, Type 2 diabetes mellitus with complication E11.[address] [address] March, Patellar tendinitis, right knee M76.51 [place] [address] [place] [id number] [place] [address] March, Radiculopathy of arm M54.10 [place] [address] [place] [id number] [place] [address] March, [place] [address] [address] March, Type 2 diabetes mellitus with complication E11.8 ; Hoarseness of voice R49.0 and Acute pain of right knee M25.561 [place] [address] [place] [id number] [place] [address] March, [place] [address] [place] [id number] [place] [address] March, [facility] [address] [place] [id number] [place] [address] Feb, Bipolar 1 disorder F31.9 [facility] [address] [place] [id number] [place] [address] Feb, Bipolar 1 disorder F31.9 [place] [address] [address] Jan, [place] [address] [place] [id number] [place] [address] Dec, Type 2 diabetes mellitus with complication E11.8 [place] [address] [address] Dec, Acute non-recurrent maxillary sinusitis J01.00 [place] [address] [address] Nov, Bipolar 1 disorder F31.9 ; Rash R21 ; Acute non-recurrent maxillary sinusitis J01.00 and Type 2 diabetes mellitus with complication E11.8 [place] [address] [place] [id number] [place] [address] 14 Oct, 2018 Hypertriglyceridemia E78.1 [place] [address] [place] [id number] [place] [address] 10 Oct, 2018 Type 2 diabetes mellitus with complication E11.8 and Fatigue due to excessive exertion, initial encounter T73.3XXA [place] [address] [place] [id number] [place] [address] 07 Oct, 2018 [place] [address] [address] Sep, [place] [address] [address] 07 Sep, 2018 Radiculopathy of arm M54.10 [place] [address] [address] Sep, [facility] [address] [address] May, [facility] [address] [address] May, Radiculopathy of arm M54.10 [facility] [address] [address] May, [facility] [address] [address] May, [facility] [id number] [place] [address] May, Radiculopathy of arm M54.10 [facility] [address] [address] Apr, Radiculopathy of arm M54.10 [facility] [address] [address] March, Radiculopathy of arm M54.10 [facility] [address] [address] March, Radiculopathy of arm M54.10 [facility] [address] [address] March, Radiculopathy of arm M54.10 [facility] [address] [address] March, Type 2 diabetes mellitus with complication E11.8 ; Radiculopathy of arm M54.10 and Muscle pain M79.1 [facility] [address] [address] Feb, Muscle pain M79.1 [facility] [address] [address] Jan, Type 2 diabetes mellitus with complication E11.8 [place] [address] [address] Jan, [facility] [address] [place] [id number] [place] [address] Dec, Muscle pain M79.1 [facility] [address] [place] [id number] [place] [address] Nov, Muscle pain M79.1 and Acute pain of right shoulder M25.511 [place] [address] [place] [id number] [place] [address] Nov, [place] [address] [place] [id number] [place] [address] Nov, [place] [address] [place] [id number] [place] [address] Nov, Type 2 diabetes mellitus with complication E11.8 [place] [address] [place] [id number] [place] [address] Nov, Impingement syndrome of left shoulder M75.42 and Impingement syndrome of right shoulder M75.41 [place] [address] [place] [id number] [place] [address] Oct, Type 2 diabetes mellitus with complication E11.8 ; Acute pain of right shoulder M25.511 ; Abscess of finger of right hand L02.511 and Umbilical hernia without obstruction and without gangrene K42.9 [facility] [id number] [place] [address] Oct, [facility] [address] [address] Oct, Mucoid otitis media, unspecified chronicity, unspecified laterality H65.90 and Abscess of finger of right hand L02.511 [facility] [address] [address] Oct, [facility] [address] [place] [id number] [place] [address] Sep, [facility] [address] [place] [id number] [place] [address] Aug, [facility] [address] [place] [id number] [place] [address] 14 Jul, 2017 Sprain of right acromioclavicular ligament, initial encounter S43.51XA ; Impingement syndrome of left shoulder M75.42 and Impingement syndrome of right shoulder M75.41 [facility] [address] [place] [id number] [place] [address] 14 Jul, 2017 Type 2 diabetes mellitus with complication E11.8 [place] [address] [place] [id number] [place] [address] Jun, [place] [address] [place] [id number] [place] [address] Jun, Type 2 diabetes mellitus with complication E11.8 ; Lumbago with sciatica, right side M54.41 ; 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 and Pain in left shoulder M25.512 [place] [address] [place] [id number] [place] [address] May, [place] [address] [place] [id number] [place] [address] May, [facility] [address] [place] [id number] [place] [address] Apr, Lumbago with sciatica, right side M54.41 and Neck pain on left side M54.2 [place] [address] [place] [id number] [place] [address] Apr, [facility] [address] [place] [id number] [place] [address] Apr, [facility] [address] [place] [id number] [place] [address] March, [facility] [address] [place] [id number] [address] March, [facility] [address] [place] [id number] [place] [address] Feb, Acute pain of right shoulder M25.511 [facility] [address] [place] [id number] [address] Feb, [facility] [address] [place] [id number] [place] [address] Feb, [facility] [address] [place] [id number] [place] [address] Feb, Type 2 diabetes mellitus with complication E11.8 ; Neuropathy G62.9 and Acute pain of right shoulder M25.511 [place] [address] [place] [id number] [place] [address] Dec, Type 2 diabetes mellitus with complication E11.8 [facility] [address] [place] [id number] [place] [address] Nov, [facility] [address] [place] [id number] [place] [address] Oct, 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 [facility] [id number] [place] [address] Oct, Type 2 diabetes mellitus with complication E11.8 [facility] [address] [place] [id number] [place] [address] Sep, Type 2 diabetes mellitus with complication E11.8 ; Acute pain of right shoulder M25.511 and Prostate cancer screening Z12.5 [facility] [address] [place] [id number] [place] [address] Sep, [facility] [address] [address] Jun, [facility] [address] [place] [id number] [place] [address] Jun, Muscle tension headache G44.209 and Bruxism F45.8 [facility] [id number] [place] [address] May, Type 2 diabetes mellitus with complication E11.8 ; Erectile dysfunction, unspecified erectile dysfunction type N52.9 and Neuropathy G62.9 [facility] [address] [place] [id number] [place] [address] Feb, [facility] [address] [place] [id number] [place] [address] Feb, Type 2 diabetes mellitus with complication E11.8 [facility] [address] [place] [id number] [place] [address] Dec, [facility] [address] [place] [id number] [place] [address] Dec, Type 2 diabetes mellitus with complication E11.8 [facility] [address] [place] [id number] [place] [address] Nov, Nausea and vomiting, unspecified intactability, vomiting of unspecified type R11.2 [facility] [address] [place] [id number] [place] [address] Oct, Neuropathy G62.9 and Type 2 diabetes mellitus with complication E11.8 [facility] [id number] [place] [address] Sep, [facility] [address] [place] [id number] [place] [address] Sep, [facility] [address] [place] [id number] [place] [address] Sep, Diabetes E11.9 [facility] [address] [place] [id number] [place] [address] Sep, [facility] [id number] [place] [address] Jul, [facility] [address] [place] [id number] [address] Jun, [facility] [id number] [place] [address] Jun, Secondary diabetes mellitus with neurological manifestations, not stated as uncontrolled, or unspecified 249.60 ; Other chronic pain 338.29 and Puncture wound 879.8 [facility] [address] [place] [id number] [place] [address] May, [facility] [address] [place] [id number] [place] [address] Apr, [facility] [address] [place] [id number] [place] [address] March, [facility] [address] [place] [id number] [place] [address] Feb, [facility] [address] [place] [id number] [place] [address] Feb, [facility] [address] [address] Jan, [facility] [address] [place] [id number] [place] [address] Jan, [facility] [address] [address] Jan, [facility] [address] [address] Jan, [facility] [address] [address] Jan, [facility] [address] [place] [id number] [place] [address] Jan, [facility] [address] [address] Jan, [facility] [address] [address] Jan, [facility] [place] [facility] [address] [id number] [place] [address] Dec, [facility] [place] [facility] [address] [id number] [place] [address] Dec, [facility] [place] [facility] [address] [id number] [place] [address] Nov, [facility] [place] [facility] [address] [id number] [place] [address] Nov, [facility] [place] [facility] [address] [id number] [place] [address] Nov, [facility] [place] [facility] [address] [id number] [place] [address] Nov, [facility] [place] [facility] [address] [id number] [place] [address] Nov, [facility] [place] [facility] [address] [id number] [place] [address] Nov, [facility] [place] [facility] [address] [id number] [place] [address] Oct, [facility] [place] [facility] [address] [id number] [place] [address] Oct, [facility] [place] [facility] [address] [id number] [place] [address] Oct, [facility] [place] [facility] [address] [id number] [address] Oct, [facility] [place] [facility] [address] [id number] [place] [address] Oct, [facility] [place] [facility] [address] [id number] [place] [address] Oct, [facility] [place] [facility] [address] [id number] [place] [address] Oct, [facility] [place] [facility] [address] [id number] [place] [address] Oct, [facility] [place] [facility] [address] [id number] [place] [address] Oct, [facility] [place] [facility] [address] [id number] [place] [address] Sep, [facility] [place] [facility] [address] [id number] [place] [address] Sep, [facility] [place] [facility] [address] [id number] [place] [address] Sep, [facility] [place] [facility] [address] [id number] [place] [address] Sep, [facility] [place] [facility] [address] [id number] [place] [address] Sep, [facility] [place] [facility] [address] [id number] [place] [address] Sep, [facility] [place] [facility] [address] [id number] [place] [address] Sep, [facility] [place] [facility] [address] [id number] [place] [address] Aug, [facility] [place] [facility] [address] [id number] [place] [address] Aug, [facility] [place] [facility] [address] [id number] [place] [address] 16 Aug, 2014 [facility] [place] [facility] [address] [id number] [address] 16 Aug, 2014 [facility] [place] [facility] [address] [id number] [place] [address] 14 Aug, 2014 [facility] [place] [facility] [address] [id number] [place] [address] Aug, [facility] [place] [facility] [address] [id number] [address] 26 Jul, 2014 [facility] [place] [facility] [address] [id number] [place] [address] 25 Jul, 2013 [facility] [place] [facility] [address] [id number] [place] [address] 25 Jul, 2013 [facility] [place] [facility] [address] [id number] [place] [address] 25 Jul, 2013 [facility] [place] [facility] [address] [id number] [place] [address] 25 Jul, 2013 [facility] [place] [facility] [address] [id number] [place] [address] 19 Jul, 2013 [facility] [place] [facility] [address] [id number] [place] [address] 16 Jul, 2013 [facility] [place] [facility] [address] [id number] [place] [address] 16 Jul, 2013 [facility] [place] [facility] [address] [id number] [place] [address] 08 Jul, 2013 [facility] [place] [facility] [address] [id number] [place] [address] 08 Jul, 2013 [facility] [place] [facility] [address] [id number] [place] [address] Jun, [facility] [place] [facility] [address] [id number] [place] [address] Jun, [facility] [place] [facility] [address] [id number] [place] [address] Jun, [facility] [place] [facility] [address] [id number] [place] [address] Jun, [facility] [place] [facility] [address] [id number] [place] [address] Jun, [facility] [place] [facility] [address] [id number] [place] [address] Jun, [facility] [place] [facility] [address] [id number] [place] [address] Jun, [facility] [place] [facility] [address] [id number] [place] [address] Jun, [facility] [place] [facility] [address] [id number] [place] [address] May, [facility] [place] [facility] [address] [id number] [place] [address] May, [facility] [place] [facility] [address] [id number] [place] [address] May, [facility] [place] [facility] [address] [id number] [place] [address] May, [facility] [place] [facility] [address] [id number] [place] [address] May, [facility] [place] [facility] [address] [id number] [place] [address] May, [facility] [place] [facility] [address] [id number] [place] [address] May, [facility] [place] [facility] [address] [id number] [place] [address] May, [facility] [place] [facility] [address] [id number] [place] [address] May, [facility] [place] [facility] [address] [id number] [place] [address] May, [facility] [place] [facility] [address] [id number] [address] May, [facility] [place] [facility] [address] [id number] [place] [address] May, [facility] [place] [facility] [address] [id number] [place] [address] May, [facility] [place] [facility] [address] [id number] [place] [address] Apr, [facility] [place] [facility] [address] [id number] [place] [address] Apr, [facility] [place] [facility] [address] [id number] [place] [address] Apr, [facility] [place] [facility] [address] [id number] [place] [address] Apr, [facility] [place] [facility] [address] [id number] [place] [address] Apr, [facility] [place] [facility] [address] [id number] [place] [address] Apr, [facility] [place] [facility] [address] [id number] [place] [address] March, [facility] [place] [facility] [address] [id number] [place] [address] March, [facility] [place] [facility] [address] [id number] [place] [address] March, [facility] [place] [facility] [address] [id number] [place] [address] 30 Feb, 2014 [facility] [place] [facility] [address] [id number] [place] [address] Feb, [facility] [place] [facility] [address] [id number] [place] [address] Feb, [facility] [place] [facility] [address] [id number] [place] [address] Feb, [facility] [place] [facility] [address] [id number] [place] [address] Feb, [facility] [place] [facility] [address] [id number] [place] [address] Feb, [facility] [place] [facility] [address] [id number] [place] [address] Feb, [facility] [place] [facility] [address] [id number] [place] [address] Feb, [facility] [place] [facility] [address] [id number] [place] [address] Feb, [facility] [place] [facility] [address] [id number] [place] [address] Feb, [facility] [place] [facility] [address] [id number] [place] [address] Feb, [facility] [place] [facility] [address] [id number] [place] [address] Jan, [facility] [place] [facility] [address] [id number] [place] [address] Jan, [facility] [place] [facility] [address] [id number] [place] [address] Jan, [facility] [place] [facility] [address] [id number] [place] [address] Jan, [facility] [place] [facility] [address] [id number] [place] [address] Jan, [facility] [place] [facility] [address] [id number] [place] [address] Jan, [facility] [place] [facility] [address] [id number] [place] [address] Dec, [facility] [place] [facility] [address] [id number] [place] [address] Dec, [facility] [place] [facility] [address] [id number] [place] [address] Dec, [facility] [place] [facility] [address] [id number] [place] [address] Dec, [facility] [place] [facility] [address] [id number] [place] [address] Nov, [facility] [place] [facility] [address] [id number] [place] [address] Nov, [facility] [place] [facility] [address] [id number] [place] [address] Nov, [facility] [address] [id number] [place] [address] Nov, [facility] [place] [facility] [address] [id number] [place] [address] Nov, [facility] [address] [id number] [place] [address] Nov, [facility] [place] [facility] [address] [id number] [place] [address] Oct, [facility] [address] [id number] [place] [address] Oct, [facility] [place] [facility] [address] [id number] [place] [address] Oct, [facility] [address] [id number] [place] [address] Oct, [facility] [place] [facility] [address] [id number] [place] [address] Oct, [facility] [address] [id number] [place] [address] Oct, [facility] [place] [facility] [address] [id number] [place] [address] Sep, [facility] [place] [facility] [address] [id number] [place] [address] Sep, [facility] [place] [facility] [address] [id number] [address] Sep, [facility] [place] [facility] [address] [id number] [place] [address] Sep, [facility] [place] [facility] [address] [id number] [place] [address] Sep, [facility] [place] [facility] [address] [id number] [address] Sep, [facility] [place] [facility] [address] [id number] [place] [address] 14 Aug, 2013 [facility] [place] [facility] [address] [id number] [place] [address] 14 Aug, 2013 [facility] [place] [facility] [address] [id number] [place] [address] 07 Aug, 2013 [facility] [place] [facility] [address] [id number] [place] [address] 07 Aug, 2013 [facility] [place] [facility] [address] [id number] [place] [address] 06 Jul, 2013 [facility] [place] [facility] [address] [id number] [place] [address] Jul, [facility] [place] [facility] [address] [id number] [place] [address] Jun, [facility] [place] [facility] [address] [id number] [place] [address] Jun, [facility] [place] [facility] [address] [id number] [place] [address] May, [facility] [place] [facility] [address] [id number] [place] [address] May, [facility] [place] [facility] [address] [id number] [place] [address] May, [facility] [place] [facility] [address] [id number] [place] [address] May, [facility] [place] [facility] [address] [id number] [place] [address] May, [facility] [place] [facility] [address] [id number] [place] [address] May, [facility] [place] [facility] [address] [id number] [place] [address] Apr, [facility] [place] [facility] [address] [id number] [place] [address] Apr, [facility] [address] [id number] [place] [address] Apr, [facility] [place] [facility] [address] [id number] [place] [address] Apr, [facility] [place] [facility] [address] [id number] [place] [address] March, [facility] [place] [facility] [address] [id number] [place] [address] March, [facility] [place] [facility] [address] [id number] [place] [address] March, [facility] [place] [facility] [address] [id number] [place] [address] Feb, [facility] [place] [facility] [address] [id number] [place] [address] Feb, [facility] [place] [facility] [address] [id number] [place] [address] Jan, [facility] [place] [facility] [address] [id number] [place] [address] Dec, [facility] [place] [facility] [address] [id number] [place] [address] Dec, [facility] [place] [facility] [address] [id number] [place] [address] Dec, [facility] [place] [facility] [address] [id number] [place] [address] Dec, [facility] [place] [facility] [address] [id number] [place] [address] Dec, [facility] [place] [facility] [address] [id number] [place] [address] Nov, [facility] [place] [facility] [address] [id number] [place] [address] Nov, [facility] [place] [facility] [address] [id number] [place] [address] Nov, [facility] [place] [facility] [address] [id number] [place] [address] Nov, [facility] [place] [facility] [address] [id number] [place] [address] Nov, [facility] [place] [facility] [address] [id number] [place] [address] Oct, [facility] [place] [facility] [address] [id number] [place] [address] Oct, [facility] [place] [facility] [address] [id number] [place] [address] Oct, [facility] [place] [facility] [address] [id number] [place] [address] Oct, [facility] [place] [facility] [address] [id number] [place] [address] Sep, [facility] [place] [facility] [address] [id number] [place] [address] Sep, [facility] [place] [facility] [address] [id number] [place] [address] Sep, [facility] [place] [facility] [address] [id number] [place] [address] Sep, [facility] [place] [facility] [address] [id number] [place] [address] Sep, [facility] [place] [facility] [address] [id number] [place] [address] Sep, [facility] [place] [facility] [address] [id number] [place] [address] Sep, [facility] [place] [facility] [address] [id number] [place] [address] Sep, [facility] [place] [facility] [address] [id number] [place] [address] Sep, [facility] [place] [facility] [address] [id number] [place] [address] Sep, [facility] [place] [facility] [address] [id number] [place] [address] Aug, [facility] [place] [facility] [address] [id number] [place] [address] Aug, [facility] [place] [facility] [address] [id number] [place] [address] Aug, [facility] [place] [facility] [address] [id number] [place] [address] Aug, [facility] [place] [facility] [address] [id number] [place] [address] Aug, [facility] [place] [facility] [address] [facility] [id number] [place] [address] Aug, [facility] [place] [facility] [address] [id number] [place] [address] Jul, [facility] [place] [facility] [address] [id number] [place] [address] Jun, [facility] [place] [facility] [address] [id number] [address] Apr, [facility] [place] [facility] [address] [id number], [place] [address] Apr, [facility] [place] [facility] [address] [id number], [place] [address] Apr, [facility] [place] [facility] [address] [id number] [place] [address] Apr, [facility] [place] [facility] [address] [id number], [place] [address] March, [facility] [place] [facility] [address] [facility] [id number] [place] [address] March, [facility] [place] [facility] [address] [id number] [place] [address] March, [facility] [address] [id number] [place] [address] March, [facility] [place] [facility] [address] [id number] [place] [address] March, [facility] [place] [facility] [address] [id number] [place] [address] Feb, [facility] [place] [facility] [address] [id number] [place] [address] Feb, [facility] [place] [facility] [address] [id number] [place] [address] Feb, [facility] [place] [facility] [address] [id number] [place] [address] Feb, [facility] [place] [facility] [address] [id number] [place] [address] Jan, [facility] [place] [facility] [address] [id number] [place] [address] Jan, [facility] [place] [facility] [address] [id number] [place] [address] 05 Jan, 2012 [facility] [place] [facility] [address] [facility] [id number] [place] [address] 28 Dec, 2011 [facility] [place] [facility] [address] [id number] [place] [address] 15 Dec, 2011 [facility] [place] [facility] [address] [id number] [place] [address] 14 Dec, 2011 [facility] [place] [facility] [address] [id number] [place] [address] 08 Dec, 2011 [facility] [place] [facility] [address] [id number] [place] [address] 08 Dec, 2011 [facility] [place] [facility] [address] [id number] [place] [address] Nov, [facility] [address] [id number] [address] Nov, [facility] [id number] [address] Nov, [facility] [id number] [address] Oct, [facility] [id number] [place] [address] Oct, [facility] [id number] [address] Oct, [facility] [id number] [address] Sep, [facility] [id number] [address] Jul, [facility] [id number] [address] Apr, IMMUNIZATIONS No Known Immunizations SOCIAL HISTORY [...]
--- OUTSIDE RECORDS SUMMARY | 2019-06-22 21:19 | XMS REPORT ---
Author Author KUN ESCALANTE Organization [facility] Address [address] [place] [address] Care Team Providers Care Spa Consultant Name Role Phone KUN ESCALANTE Unavailable PROBLEMS Type Condition ICD9-CM Code LST26-VJ Code Onset Dates Condition Status SNOMED Code Problem Lumbago with sciatica, right side M54.41 Active 761081290 Problem Muscle pain M79.1 Active 99739948 Problem Type 2 diabetes mellitus with complication E11.8 Active 26404962 Problem Neuropathy G62.9 Active 968686181 Problem Bipolar 1 disorder F31.9 Active 544339073 Problem Hypertriglyceridemia E78.1 Active [id number] ALLERGIES No Information ENCOUNTERS Encounter Location Date Diagnosis [place] [address] [address] March, Type 2 diabetes mellitus with complication E11.[address] [address] March, Patellar tendinitis, right knee M76.51 [place] [address] [place] [id number] [place] [address] March, Radiculopathy of arm M54.10 [place] [address] [place] [id number] [place] [address] March, [place] [address] [address] March, Type 2 diabetes mellitus with complication E11.8 ; Hoarseness of voice R49.0 and Acute pain of right knee M25.561 [place] [address] [place] [id number] [place] [address] March, [place] [address] [id number] [place] [address] March, [facility] [address] [place] [id number] [place] [address] Feb, Bipolar 1 disorder F31.9 [facility] [address] [place] [id number] [place] [address] Feb, Bipolar 1 disorder F31.9 [place] [address] [address] Jan, [place] [address] [place] [id number] [place] [address] Dec, Type 2 diabetes mellitus with complication E11.8 [place] [address] [address] Dec, Acute non-recurrent maxillary sinusitis J01.00 [place] [address] [address] Nov, Bipolar 1 disorder F31.9 ; Rash R21 ; Acute non-recurrent maxillary sinusitis J01.00 and Type 2 diabetes mellitus with complication E11.8 [place] [address] [place] [id number] [place] [address] 14 Oct, 2018 Hypertriglyceridemia E78.1 [place] [address] [place] [id number] [place] [address] 10 Oct, 2018 Type 2 diabetes mellitus with complication E11.8 and Fatigue due to excessive exertion, initial encounter T73.3XXA [place] [address] [place] [id number] [place] [address] 07 Oct, 2018 [place] [address] [address] Sep, [place] [address] [address] 07 Sep, 2018 Radiculopathy of arm M54.10 [place] [address] [address] Sep, [facility] [address] [address] May, [facility] [address], [place] [address] May, Radiculopathy of arm M54.10 [facility] [address], [place] [address] May, [facility] [address], [place] [address] May, [facility] [id number] [place] [address] May, Radiculopathy of arm M54.10 [facility] [address], [place] [address] Apr, Radiculopathy of arm M54.10 [facility] [address], [place] [address] March, Radiculopathy of arm M54.10 [facility] [address], [place] [address] March, Radiculopathy of arm M54.10 [facility] [address], [place] [address] March, Radiculopathy of arm M54.10 [facility] [address], [place] [address] March, Type 2 diabetes mellitus with complication E11.8 ; Radiculopathy of arm M54.10 and Muscle pain M79.1 [facility] [address], [place] [address] Feb, Muscle pain M79.1 [facility] [address], [place] [address] Jan, Type 2 diabetes mellitus with complication E11.8 [place] [address], [place] [address] Jan, [facility] [address] [place] [id number] [place] [address] Dec, Muscle pain M79.1 [facility] [address] [place] [id number] [place] [address] Nov, Muscle pain M79.1 and Acute pain of right shoulder M25.511 [place] [address] [place] [id number] [place] [address] Nov, [place] [address] [place] [id number] [place] [address] Nov, [place] [address] [place] [id number] [place] [address] Nov, Type 2 diabetes mellitus with complication E11.8 [place] [address] [place] [id number] [place] [address] Nov, Impingement syndrome of left shoulder M75.42 and Impingement syndrome of right shoulder M75.41 [place] [address] [place] [id number] [place] [address] Oct, Type 2 diabetes mellitus with complication E11.8 ; Acute pain of right shoulder M25.511 ; Abscess of finger of right hand L02.511 and Umbilical hernia without obstruction and without gangrene K42.9 [facility] [id number] [place] [address] Oct, [facility] [address], [place] [address] Oct, Mucoid otitis media, unspecified chronicity, unspecified laterality H65.90 and Abscess of finger of right hand L02.511 [facility] [address], [place] [address] Oct, [facility] [address] [place] [id number] [place] [address] Sep, [facility] [address] [place] [id number] [place] [address] Aug, [facility] [address] [place] [id number] [place] [address] 14 Jul, 2017 Sprain of right acromioclavicular ligament, initial encounter S43.51XA ; Impingement syndrome of left shoulder M75.42 and Impingement syndrome of right shoulder M75.41 [facility] [address] [place] [id number] [place] [address] 14 Jul, 2017 Type 2 diabetes mellitus with complication E11.8 [place] [address] [place] [id number] [place] [address] Jun, [place] [address] [place] [id number] [place] [address] Jun, Type 2 diabetes mellitus with complication E11.8 ; Lumbago with sciatica, right side M54.41 ; 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 and Pain in left shoulder M25.512 [place] [address] [place] [id number] [place] [address] May, [place] [address] [place] [id number] [place] [address] May, [facility] [address] [place] [id number] [place] [address] Apr, Lumbago with sciatica, right side M54.41 and Neck pain on left side M54.2 [place] [address] [place] [id number] [place] [address] Apr, [facility] [address] [place] [id number] [place] [address] Apr, [facility] [address] [place] [id number] [place] [address] March, [facility] [address] [address], [place] [address] March, [facility] [address] [place] [id number] [place] [address] Feb, Acute pain of right shoulder M25.511 [facility] [address] [place] [address] [address] Feb, [facility] [address] [place] [id number] [place] [address] Feb, [facility] [address] [place] [id number] [place] [address] Feb, Type 2 diabetes mellitus with complication E11.8 ; Neuropathy G62.9 and Acute pain of right shoulder M25.511 [place] [address] [place] [id number] [place] [address] Dec, Type 2 diabetes mellitus with complication E11.8 [facility] [address] [place] [id number] [place] [address] Nov, [facility] [address] [place] [id number] [place] [address] Oct, 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 [facility] [address] [place] [address] Oct, Type 2 diabetes mellitus with complication E11.8 [facility] [address] [place] [id number] [place] [address] Sep, Type 2 diabetes mellitus with complication E11.8 ; Acute pain of right shoulder M25.511 and Prostate cancer screening Z12.5 [facility] [address] [place] [id number] [place] [address] Sep, [facility] [address], [place] [address] Jun, [facility] [address] [place] [id number] [place] [address] Jun, Muscle tension headache G44.209 and Bruxism F45.8 [facility] [id number] [place] [address] May, Type 2 diabetes mellitus with complication E11.8 ; Erectile dysfunction, unspecified erectile dysfunction type N52.9 and Neuropathy G62.9 [facility] [address] [place] [id number] [place] [address] Feb, [facility] [address] [place] [id number] [place] [address] Feb, Type 2 diabetes mellitus with complication E11.8 [facility] [address] [place] [id number] [place] [address] Dec, [facility] [address] [place] [id number] [place] [address] Dec, Type 2 diabetes mellitus with complication E11.8 [facility] [address] [place] [id number] [place] [address] Nov, Nausea and vomiting, unspecified intactability, vomiting of unspecified type R11.2 [facility] [address] [place] [id number] [place] [address] Oct, Neuropathy G62.9 and Type 2 diabetes mellitus with complication E11.8 [facility] [id number] [place] [address] Sep, [facility] [address] [place] [id number] [place] [address] Sep, [facility] [address] [place] [id number] [place] [address] Sep, Diabetes E11.9 [facility] [address] [place] [id number] [place] [address] Sep, [facility] [id number] [place] [address] Jul, [facility] [address] [place] [id number] [address] Jun, [facility] [address] [place] [address] Jun, Secondary diabetes mellitus with neurological manifestations, not stated as uncontrolled, or unspecified 249.60 ; Other chronic pain 338.29 and Puncture wound 879.8 [facility] [address] [place] [id number] [place] [address] May, [facility] [address] [place] [id number] [place] [address] Apr, [facility] [address] [place] [id number] [place] [address] March, [facility] [address] [place] [id number] [place] [address] Feb, [facility] [address] [place] [id number] [place] [address] Feb, [facility] [address], [place] [address] Jan, [facility] [address] [place] [id number] [place] [address] Jan, [facility] [address], [place] [address] Jan, [facility] [address], [place] [address] Jan, [facility] [address], [place] [address] Jan, [facility] [address] [place] [id number] [place] [address] Jan, [facility] [address], [place] [address] Jan, [facility] [address], [place] [address] Jan, [facility] [place] [facility] [address] [id number] [place] [address] Dec, [facility] [place] [facility] [address] [id number] [place] [address] Dec, [facility] [place] [facility] [address] [id number] [place] [address] Nov, [facility] [place] [facility] [address] [id number] [place] [address] Nov, [facility] [place] [facility] [address] [id number] [place] [address] Nov, [facility] [place] [facility] [address] [id number] [place] [address] Nov, [facility] [place] [facility] [address] [id number] [place] [address] Nov, [facility] [place] [facility] [address] [id number] [place] [address] Nov, [facility] [place] [facility] [address] [id number] [place] [address] Oct, [facility] [place] [facility] [address] [id number] [place] [address] Oct, [facility] [place] [facility] [address] [id number] [place] [address] Oct, [facility] [place] [facility] [address] [id number], [place] [address] Oct, [facility] [place] [facility] [address] [id number] [place] [address] Oct, [facility] [place] [facility] [address] [id number] [place] [address] Oct, [facility] [place] [facility] [address] [id number] [place] [address] Oct, [facility] [place] [facility] [address] [id number] [place] [address] Oct, [facility] [place] [facility] [address] [id number] [place] [address] Oct, [facility] [place] [facility] [address] [id number] [place] [address] Sep, [facility] [place] [facility] [address] [id number] [place] [address] Sep, [facility] [place] [facility] [address] [id number] [place] [address] Sep, [facility] [place] [facility] [address] [id number] [place] [address] Sep, [facility] [place] [facility] [address] [id number] [place] [address] Sep, [facility] [place] [facility] [address] [id number] [place] [address] Sep, [facility] [place] [facility] [address] [id number] [place] [address] Sep, [facility] [place] [facility] [address] [id number] [place] [address] Aug, [facility] [place] [facility] [address] [id number] [place] [address] Aug, [facility] [place] [facility] [address] [id number] [place] [address] 16 Aug, 2014 [facility] [place] [facility] [address] [id number], [place] [address] 16 Aug, 2014 [facility] [place] [facility] [address] [id number] [place] [address] 14 Aug, 2014 [facility] [place] [facility] [address] [id number] [place] [address] Aug, [facility] [place] [facility] [address] [id number], [place] [address] 26 Jul, 2014 [facility] [place] [facility] [address] [id number] [place] [address] 25 Jul, 2013 [facility] [place] [facility] [address] [id number] [place] [address] 25 Jul, 2013 [facility] [place] [facility] [address] [id number] [place] [address] 25 Jul, 2013 [facility] [place] [facility] [address] [id number] [place] [address] 25 Jul, 2013 [facility] [place] [facility] [address] [id number] [place] [address] 19 Jul, 2013 [facility] [place] [facility] [address] [id number] [place] [address] 16 Jul, 2013 [facility] [place] [facility] [address] [id number] [place] [address] 16 Jul, 2013 [facility] [place] [facility] [address] [id number] [place] [address] 08 Jul, 2013 [facility] [place] [facility] [address] [id number] [place] [address] 08 Jul, 2013 [facility] [place] [facility] [address] [id number] [place] [address] Jun, [facility] [place] [facility] [address] [id number] [place] [address] Jun, [facility] [place] [facility] [address] [id number] [place] [address] Jun, [facility] [place] [facility] [address] [id number] [place] [address] Jun, [facility] [place] [facility] [address] [id number] [place] [address] Jun, [facility] [place] [facility] [address] [id number] [place] [address] Jun, [facility] [place] [facility] [address] [id number] [place] [address] Jun, [facility] [place] [facility] [address] [id number] [place] [address] Jun, [facility] [place] [facility] [address] [id number] [place] [address] May, [facility] [place] [facility] [address] [id number] [place] [address] May, [facility] [place] [facility] [address] [id number] [place] [address] May, [facility] [place] [facility] [address] [id number] [place] [address] May, [facility] [place] [facility] [address] [id number] [place] [address] May, [facility] [place] [facility] [address] [id number] [place] [address] May, [facility] [place] [facility] [address] [id number] [place] [address] May, [facility] [place] [facility] [address] [id number] [place] [address] May, [facility] [place] [facility] [address] [id number] [place] [address] May, [facility] [place] [facility] [address] [id number] [place] [address] May, [facility] [place] [facility] [address] [id number], [place] [address] May, [facility] [place] [facility] [address] [id number] [place] [address] May, [facility] [place] [facility] [address] [id number] [place] [address] May, [facility] [place] [facility] [address] [id number] [place] [address] Apr, [facility] [place] [facility] [address] [id number] [place] [address] Apr, [facility] [place] [facility] [address] [id number] [place] [address] Apr, [facility] [place] [facility] [address] [id number] [place] [address] Apr, [facility] [place] [facility] [address] [id number] [place] [address] Apr, [facility] [place] [facility] [address] [id number] [place] [address] Apr, [facility] [place] [facility] [address] [id number] [place] [address] March, [facility] [place] [facility] [address] [id number] [place] [address] March, [facility] [place] [facility] [address] [id number] [place] [address] March, [facility] [place] [facility] [address] [id number] [place] [address] 30 Feb, 2014 [facility] [place] [facility] [address] [id number] [place] [address] Feb, [facility] [place] [facility] [address] [id number] [place] [address] Feb, [facility] [place] [facility] [address] [id number] [place] [address] Feb, [facility] [place] [facility] [address] [id number] [place] [address] Feb, [facility] [place] [facility] [address] [id number] [place] [address] Feb, [facility] [place] [facility] [address] [id number] [place] [address] Feb, [facility] [place] [facility] [address] [id number] [place] [address] Feb, [facility] [place] [facility] [address] [id number] [place] [address] Feb, [facility] [place] [facility] [address] [id number] [place] [address] Feb, [facility] [place] [facility] [address] [id number] [place] [address] Feb, [facility] [place] [facility] [address] [id number] [place] [address] Jan, [facility] [place] [facility] [address] [id number] [place] [address] Jan, [facility] [place] [facility] [address] [id number] [place] [address] Jan, [facility] [place] [facility] [address] [id number] [place] [address] Jan, [facility] [place] [facility] [address] [id number] [place] [address] Jan, [facility] [place] [facility] [address] [id number] [place] [address] Jan, [facility] [place] [facility] [address] [id number] [place] [address] Dec, [facility] [place] [facility] [address] [id number] [place] [address] Dec, [facility] [place] [facility] [address] [id number] [place] [address] Dec, [facility] [place] [facility] [address] [id number] [place] [address] Dec, [facility] [place] [facility] [address] [id number] [place] [address] Nov, [facility] [place] [facility] [address] [id number] [place] [address] Nov, [facility] [place] [facility] [address] [id number] [place] [address] Nov, [facility] [address] [id number] [place] [address] Nov, [facility] [place] [facility] [address] [id number] [place] [address] Nov, [facility] [place] [facility] [address] [id number] [place] [address] Nov, [facility] [place] [facility] [address] [id number] [place] [address] Oct, [facility] [place] [facility] [address] [id number] [place] [address] Oct, [facility] [place] [facility] [address] [id number] [place] [address] Oct, [facility] [place] [facility] [address] [id number] [place] [address] Oct, [facility] [place] [facility] [address] [id number] [place] [address] Oct, [facility] [place] [facility] [address] [id number] [place] [address] Oct, [facility] [place] [facility] [address] [id number] [place] [address] Sep, [facility] [place] [facility] [address] [id number] [place] [address] Sep, [facility] [place] [facility] [address] [id number], [place] [address] Sep, [facility] [place] [facility] [address] [id number] [place] [address] Sep, [facility] [place] [facility] [address] [id number] [place] [address] Sep, [facility] [place] [facility] [address] [id number], [place] [address] Sep, [facility] [place] [facility] [address] [id number] [place] [address] 14 Aug, 2013 [facility] [place] [facility] [address] [id number] [place] [address] 14 Aug, 2013 [facility] [place] [facility] [address] [id number] [place] [address] 07 Aug, 2013 [facility] [place] [facility] [address] [id number] [place] [address] 07 Aug, 2013 [facility] [place] [facility] [address] [id number] [place] [address] 06 Jul, 2013 [facility] [place] [facility] [address] [id number] [place] [address] Jul, [facility] [place] [facility] [address] [id number] [place] [address] Jun, [facility] [place] [facility] [address] [id number] [place] [address] Jun, [facility] [place] [facility] [address] [id number] [place] [address] May, [facility] [place] [facility] [address] [id number] [place] [place] [address] May, [facility] [place] [facility] [address] [id number] [place] [address] May, [facility] [place] [facility] [address] [id number] [place] [address] May, [facility] [place] [facility] [address] [id number] [place] [address] May, [facility] [place] [facility] [address] [id number] [place] [address] May, [facility] [place] [facility] [address] [id number] [place] [address] Apr, [facility] [place] [facility] [address] [id number] [place] [address] Apr, [facility] [place] [facility] [address] [id number] [place] [address] Apr, [facility] [place] [facility] [address] [id number] [place] [address] Apr, [facility] [place] [facility] [address] [id number] [place] [address] March, [facility] [place] [facility] [address] [id number] [place] [address] March, [facility] [place] [facility] [address] [id number] [place] [address] March, [facility] [place] [facility] [address] [id number] [place] [address] Feb, [facility] [place] [facility] [address] [id number] [place] [address] Feb, [facility] [place] [facility] [address] [id number] [place] [address] Jan, [facility] [place] [facility] [address] [id number] [place] [address] Dec, [facility] [place] [facility] [address] [id number] [place] [address] Dec, [facility] [place] [facility] [address] [id number] [place] [address] Dec, [facility] [place] [facility] [address] [id number] [place] [address] Dec, [facility] [place] [facility] [address] [id number] [place] [address] Dec, [facility] [place] [facility] [address] [id number] [place] [address] Nov, [facility] [place] [facility] [address] [id number] [place] [address] Nov, [facility] [place] [facility] [address] [id number] [place] [address] Nov, [facility] [place] [facility] [address] [id number] [place] [address] Nov, [facility] [place] [facility] [address] [id number] [place] [address] Nov, [facility] [place] [facility] [address] [id number] [place] [address] Oct, [facility] [place] [facility] [address] [id number] [place] [address] Oct, [facility] [place] [facility] [address] [id number] [place] [address] Oct, [facility] [place] [facility] [address] [id number] [place] [address] Oct, [facility] [place] [facility] [address] [id number] [place] [address] Sep, [facility] [place] [facility] [address] [id number] [place] [address] Sep, [facility] [place] [facility] [address] [id number] [place] [address] Sep, [facility] [place] [facility] [address] [id number] [place] [address] Sep, [facility] [place] [facility] [address] [id number] [place] [address] Sep, [facility] [place] [facility] [address] [id number] [place] [address] Sep, [facility] [place] [facility] [address] [id number] [place] [address] Sep, [facility] [place] [facility] [address] [id number] [place] [address] Sep, [facility] [place] [facility] [address] [id number] [place] [address] Sep, [facility] [place] [facility] [address] [id number] [place] [address] Sep, [facility] [place] [facility] [address] [id number] [place] [address] Aug, [facility] [place] [facility] [address] [id number] [place] [address] Aug, [facility] [place] [facility] [address] [id number] [place] [address] Aug, [facility] [place] [facility] [address] [id number] [place] [address] Aug, [facility] [place] [facility] [address] [id number] [place] [address] Aug, [facility] [place] [facility] [address] [facility] [id number] [place] [address] Aug, [facility] [place] [facility] [address] [id number] [place] [address] Jul, [facility] [place] [facility] [address] [id number] [place] [address] Jun, [facility] [place] [facility] [address] [id number], [place] [address] Apr, [facility] [place] [facility] [address] [id number], [place] [address] Apr, [facility] [place] [facility] [address] [id number], [place] [address] Apr, [facility] [place] [facility] [address] [id number] [place] [address] Apr, [facility] [place] [facility] [address] [id number], [place] [address] March, [facility] [place] [facility] [address] [facility] [id number] [place] [address] March, [facility] [place] [facility] [address] [id number] [place] [address] March, [facility] [place] [facility] [address] [id number] [place] [address] March, [facility] [place] [facility] [address] [id number] [place] [address] March, [facility] [place] [facility] [address] [id number] [place] [address] Feb, [facility] [place] [facility] [address] [id number] [place] [address] Feb, [facility] [place] [facility] [address] [id number] [place] [address] Feb, [facility] [place] [facility] [address] [id number] [place] [address] Feb, [facility] [place] [facility] [address] [id number] [place] [address] Jan, [facility] [place] [facility] [address] [id number] [place] [address] Jan, [facility] [place] [facility] [address] [id number] [place] [address] 05 Jan, 2012 [facility] [place] [facility] [address] [facility] [id number] [place] [address] 28 Dec, 2011 [facility] [place] [facility] [address] [id number] [place] [address] 15 Dec, 2011 [facility] [place] [facility] [address] [id number] [place] [address] 14 Dec, 2011 [facility] [place] [facility] [address] [id number] [place] [address] 08 Dec, 2011 [facility] [place] [facility] [address] [id number] [place] [address] 08 Dec, 2011 [facility] [place] [facility] [address] [id number] [place] [address] Nov, [facility] [address] [id number] [address] Nov, [facility] [id number], [place] [address] Nov, [facility] [id number], [place] [address] Oct, [facility] [id number] [place] [address] Oct, [facility] [id number], [place] [address] Oct, [facility] [id number], [place] [address] Sep, [facility] [id number], [place] [address] Jul, [facility] [id number], [place] [address] Apr, IMMUNIZATIONS No Known Immunizations SOCIAL HISTORY [...]
--- OUTSIDE RECORDS SUMMARY | 2019-06-22 21:19 | XMS REPORT ---
Author Author KUN ESCALANTE Organization 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 Name Role Phone KUN ESCALANTE Unavailable PROBLEMS Type Condition ICD9-CM Code YKD22-XS Code Onset Dates Condition Status SNOMED Code Problem Lumbago with sciatica, right side M54.41 Active 304937463 Problem Muscle pain M79.1 Active 07541533 Problem Type 2 diabetes mellitus with complication E11.8 Active 05326577 Problem Neuropathy G62.9 Active 951616902 Problem Bipolar 1 disorder F31.9 Active 476019663 Problem Hypertriglyceridemia E78.1 Active [id number] ALLERGIES No Information ENCOUNTERS Encounter Location Date Diagnosis [place] [address] [address] March, Type 2 diabetes mellitus with complication E11.[address] [address] March, Patellar tendinitis, right knee M76.51 [place] [address] [place] [id number] [place] [address] March, Radiculopathy of arm M54.10 [place] [address] [id number] [place] [address] March, [place] [address] [address] March, Type 2 diabetes mellitus with complication E11.8 ; Hoarseness of voice R49.0 and Acute pain of right knee M25.561 [place] [address] [id number] [place] [address] March, [place] [address] [place] [id number] [place] [address] March, [facility] [id number] [place] [address] Feb, Bipolar [address] [facility] [id number] [place] [address] Feb, Bipolar 1 disorder F31.9 [place] [address] [address] Jan, [place] [address] [address] [id number] [place] [address] Dec, Type 2 diabetes mellitus with complication E11.8 [place] [address] [address] Dec, Acute non-recurrent maxillary sinusitis J01.00 [place] [address] [address] Nov, Bipolar 1 disorder F31.9 ; Rash R21 ; Acute non-recurrent maxillary sinusitis J01.00 and Type 2 diabetes mellitus with complication E11.8 [place] [address] [id number] [place] [address] 14 Oct, 2018 Hypertriglyceridemia E78.1 [place] [address] [id number] [place] [address] 10 Oct, 2018 Type 2 diabetes mellitus with complication E11.8 and Fatigue due to excessive exertion, initial encounter T73.3XXA [place] [address] [place] [id number] [place] [address] 07 Oct, 2018 [place] [address] [address] Sep, [place] [address] [address] 07 Sep, 2018 Radiculopathy of arm M54.10 [place] [address] [address] Sep, [facility] [address], [place] [address] May, [facility] [address], [place] [address] May, Radiculopathy of arm M54.10 [facility] [address], [place] [address] May, [facility] [address], [place] [address] May, [facility] [id number] [place] [address] May, Radiculopathy of arm M54.10 [facility] [address], [place] [address] Apr, Radiculopathy of arm M54.10 [facility] [address], [place] [address] March, Radiculopathy of arm M54.10 [facility] [address], [place] [address] March, Radiculopathy of arm M54.10 [facility] [address], [place] [address] March, Radiculopathy of arm M54.10 [facility] [address], [place] [address] March, Type 2 diabetes mellitus with complication E11.8 ; Radiculopathy of arm M54.10 and Muscle pain M79.1 [facility] [address], [place] [address] Feb, Muscle pain M79.1 [facility] [address], [place] [address] Jan, Type 2 diabetes mellitus with complication E11.8 [place] [address], [place] [address] Jan, [facility] [address] [id number] [place] [address] Dec, Muscle pain M79.1 [facility] [address] [place] [id number] [place] [address] Nov, Muscle pain M79.1 and Acute pain of right shoulder M25.511 [place] [address] [place] [id number] [place] [address] Nov, [place] [address] [id number] [place] [address] Nov, [place] [address] [id number] [place] [address] Nov, Type 2 diabetes mellitus with complication E11.8 [place] [address] [place] [id number] [place] [address] Nov, Impingement syndrome of left shoulder M75.42 and Impingement syndrome of right shoulder M75.41 [place] [address] [id number] [place] [address] Oct, Type 2 diabetes mellitus with complication E11.8 ; Acute pain of right shoulder M25.511 ; Abscess of finger of right hand L02.511 and Umbilical hernia without obstruction and without gangrene K42.9 [facility] [address] [place] [address] Oct, [facility] [address], [place] [address] Oct, Mucoid otitis media, unspecified chronicity, unspecified laterality H65.90 and Abscess of finger of right hand L02.511 [facility] [address], [place] [address] Oct, [facility] [address] [id number] [place] [address] Sep, [facility] [id number] [place] [address] Aug, [facility] [address] [address] [id number] [place] [address] 14 Jul, 2017 Sprain of right acromioclavicular ligament, initial encounter S43.51XA ; Impingement syndrome of left shoulder M75.42 and Impingement syndrome of right shoulder M75.41 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 [address] [id number] [place] [address] Apr, Lumbago with sciatica, right side M54.41 and Neck pain on left side M54.2 [place] [address] [id number] [place] [address] Apr, [facility] [address] [id number] [place] [address] Apr, [facility] [address] [id number] [place] [address] March, [facility] [id number] [address] March, [facility] [id number] [place] [address] Feb, Acute pain of right shoulder M25.511 [facility] [id number] [address] Feb, [facility] [address] [id number] [place] [address] Feb, [facility] [address] [id number] [place] [address] Feb, Type 2 diabetes mellitus with complication E11.8 ; Neuropathy G62.9 and Acute pain of right shoulder M25.511 [place] [address] [place] [id number] [place] [address] Dec, Type 2 diabetes mellitus with complication E11.8 [facility] [address] [id number] [place] [address] Nov, 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 [address] [place] [address] Oct, Type 2 diabetes mellitus with complication E11.8 [facility] [address] [place] [id number] [place] [address] Sep, Type 2 diabetes mellitus with complication E11.8 ; Acute pain of right shoulder M25.511 and Prostate cancer screening Z12.5 [facility] [address] [id number] [place] [address] Sep, [facility] [address], [place] [address] Jun, [facility] [address] [id number] [place] [address] Jun, Muscle tension headache G44.[address] [facility] [address] [place] [address] May, Type 2 diabetes mellitus with complication E11.8 ; Erectile dysfunction, unspecified erectile dysfunction type N52.[address] [facility] [address] [address] [id number] [place] [address] Feb, [facility] [id number] [place] [address] Feb, Type 2 diabetes mellitus with complication E11.8 [facility] [address] [id number] [place] [address] Dec, [facility] [address] [id number] [place] [address] Dec, Type 2 diabetes mellitus with complication E11.8 [facility] [address] [id number] [place] [address] Nov, Nausea and vomiting, unspecified intactability, vomiting of unspecified type R11.2 [facility] [address] [id number] [place] [address] Oct, Neuropathy G62.9 and Type 2 diabetes mellitus with complication E11.8 [facility] [address] [place] [address] Sep, [facility] [address] [id number] [place] [address] Sep, [facility] [id number] [place] [address] Sep, Diabetes E11.9 [facility] [address] [id number] [place] [address] Sep, [facility] [address] [place] [address] Jul, [facility] [address] [id number] [address] Jun, [facility] [address] [place] [address] Jun, Secondary diabetes mellitus with neurological manifestations, not stated as uncontrolled, or unspecified 249.60 ; Other chronic pain 338.29 and Puncture wound 879.8 [facility] [address] [id number] [place] [address] May, [facility] [address] [id number] [place] [address] Apr, [facility] [address] [id number] [place] [address] March, [facility] [address] [id number] [place] [address] Feb, [facility] [address] [address] [id number] [place] [address] Feb, [facility] [address], [place] [address] Jan, [facility] [address] [id number] [place] [address] Jan, [facility] [address], [place] [address] Jan, [facility] [address], [place] [address] Jan, [facility] [address], [place] [address] Jan, [facility] [address] [id number] [place] [address] Jan, [facility] [address], [place] [address] Jan, [facility] [address], [place] [address] Jan, [facility] [place] [facility] [address] [id number] [place] [address] Dec, [facility] [place] [facility] [address] [id number] [place] [address] Dec, [facility] [place] [facility] [address] [id number] [place] [address] Nov, [facility] [place] [facility] [address] [id number] [place] [address] Nov, [facility] [place] [facility] [address] [id number] [place] [address] Nov, [facility] [place] [facility] [address] [id number] [place] [address] Nov, [facility] [place] [facility] [address] [id number] [place] [address] Nov, [facility] [place] [facility] [address] [id number] [place] [address] Nov, [facility] [place] [facility] [address] [id number] [place] [address] Oct, [facility] [place] [facility] [address] [id number] [place] [address] Oct, [facility] [place] [facility] [address] [id number] [place] [address] Oct, [facility] [place] [facility] [address] [id number] [address] Oct, [facility] [place] [facility] [address] [id number] [place] [address] Oct, [facility] [place] [facility] [address] [id number] [place] [address] Oct, [facility] [place] [facility] [address] [id number] [place] [address] Oct, [facility] [place] [facility] [address] [id number] [place] [address] Oct, [facility] [place] [facility] [address] [id number] [place] [address] Oct, [facility] [place] [facility] [address] [id number] [place] [address] Sep, [facility] [place] [facility] [address] [id number] [place] [address] Sep, [facility] [place] [facility] [address] [id number] [place] [address] Sep, [facility] [place] [facility] [address] [id number] [place] [address] Sep, [facility] [place] [facility] [address] [id number] [place] [address] Sep, [facility] [place] [facility] [address] [id number] [place] [address] Sep, [facility] [place] [facility] [address] [id number] [place] [address] Sep, [facility] [place] [facility] [address] [id number] [place] [address] Aug, [facility] [place] [facility] [address] [id number] [place] [address] Aug, [facility] [place] [facility] [address] [id number] [place] [address] 16 Aug, 2014 [facility] [place] [facility] [address] [id number], [place] [address] 16 Aug, 2014 [facility] [place] [facility] [address] [id number] [place] [address] 14 Aug, 2014 [facility] [place] [facility] [address] [id number] [place] [address] Aug, [facility] [place] [facility] [address] [id number], [place] [address] 26 Jul, 2014 [facility] [place] [facility] [address] [id number] [place] [address] 25 Jul, 2013 [facility] [place] [facility] [address] [id number] [place] [address] 25 Jul, 2013 [facility] [place] [facility] [address] [id number] [place] [address] 25 Jul, 2013 [facility] [place] [facility] [address] [id number] [place] [address] 25 Jul, 2013 [facility] [place] [facility] [address] [id number] [place] [address] 19 Jul, 2013 [facility] [place] [facility] [address] [id number] [place] [address] 16 Jul, 2013 [facility] [place] [facility] [address] [id number] [place] [address] 16 Jul, 2013 [facility] [place] [facility] [address] [id number] [place] [address] 08 Jul, 2013 [facility] [place] [facility] [address] [id number] [place] [address] 08 Jul, 2013 [facility] [place] [facility] [address] [id number] [place] [address] Jun, [facility] [place] [facility] [address] [id number] [place] [address] Jun, [facility] [place] [facility] [address] [id number] [place] [address] Jun, [facility] [place] [facility] [address] [id number] [place] [address] Jun, [facility] [place] [facility] [address] [id number] [place] [address] Jun, [facility] [place] [facility] [address] [id number] [place] [address] Jun, [facility] [place] [facility] [address] [id number] [place] [address] Jun, [facility] [place] [facility] [address] [id number] [place] [address] Jun, [facility] [place] [facility] [address] [id number] [place] [address] May, [facility] [place] [facility] [address] [id number] [place] [address] May, [facility] [place] [facility] [address] [id number] [place] [address] May, [facility] [place] [facility] [address] [id number] [place] [address] May, [facility] [place] [facility] [address] [id number] [place] [address] May, [facility] [place] [facility] [address] [id number] [place] [address] May, [facility] [place] [facility] [address] [id number] [place] [address] May, [facility] [place] [facility] [address] [id number] [place] [address] May, [facility] [place] [facility] [address] [id number] [place] [address] May, [facility] [place] [facility] [address] [id number] [place] [address] May, [facility] [place] [facility] [address] [id number], [place] [address] May, [facility] [place] [facility] [address] [id number] [place] [address] May, [facility] [place] [facility] [address] [id number] [place] [address] May, [facility] [place] [facility] [address] [id number] [place] [address] Apr, [facility] [place] [facility] [address] [id number] [place] [address] Apr, [facility] [place] [facility] [address] [id number] [place] [address] Apr, [facility] [place] [facility] [address] [id number] [place] [address] Apr, [facility] [place] [facility] [address] [id number] [place] [address] Apr, [facility] [place] [facility] [address] [id number] [place] [address] Apr, [facility] [place] [facility] [address] [id number] [place] [address] March, [facility] [place] [facility] [address] [id number] [place] [address] March, [facility] [place] [facility] [address] [id number] [place] [address] March, [facility] [place] [facility] [address] [id number] [place] [address] 30 Feb, 2014 [facility] [place] [facility] [address] [id number] [place] [address] Feb, [facility] [place] [facility] [address] [id number] [place] [address] Feb, [facility] [place] [facility] [address] [id number] [place] [address] Feb, [facility] [place] [facility] [address] [id number] [place] [address] Feb, [facility] [place] [facility] [address] [id number] [place] [address] Feb, [facility] [place] [facility] [address] [id number] [place] [address] Feb, [facility] [place] [facility] [address] [id number] [place] [address] Feb, [facility] [place] [facility] [address] [id number] [place] [address] Feb, [facility] [place] [facility] [address] [id number] [place] [address] Feb, [facility] [place] [facility] [address] [id number] [place] [address] Feb, [facility] [place] [facility] [address] [id number] [place] [address] Jan, [facility] [place] [facility] [address] [id number] [place] [address] Jan, [facility] [place] [facility] [address] [id number] [place] [address] Jan, [facility] [place] [facility] [address] [id number] [place] [address] Jan, [facility] [place] [facility] [address] [id number] [place] [address] Jan, [facility] [place] [facility] [address] [id number] [place] [address] Jan, [facility] [place] [facility] [address] [id number] [place] [address] Dec, [facility] [place] [facility] [address] [id number] [place] [address] Dec, [facility] [place] [facility] [address] [id number] [place] [address] Dec, [facility] [place] [facility] [address] [id number] [place] [address] Dec, [facility] [place] [facility] [address] [id number] [place] [address] Nov, [facility] [place] [facility] [address] [id number] [place] [address] Nov, [facility] [place] [facility] [address] [id number] [place] [address] Nov, [facility] [address] [id number] [place] [address] Nov, [facility] [place] [facility] [address] [id number] [place] [address] Nov, [facility] [address] [id number] [place] [address] Nov, [facility] [place] [facility] [address] [id number] [place] [address] Oct, [facility] [address] [id number] [place] [address] Oct, [facility] [place] [facility] [address] [id number] [place] [address] Oct, [facility] [address] [id number] [place] [address] Oct, [facility] [place] [facility] [address] [id number] [place] [address] Oct, [facility] [address] [id number] [place] [address] Oct, [facility] [place] [facility] [address] [id number] [place] [address] Sep, [facility] [place] [facility] [address] [id number] [place] [address] Sep, [facility] [place] [facility] [address] [id number] [address] Sep, [facility] [place] [facility] [address] [id number] [place] [address] Sep, [facility] [place] [facility] [address] [id number] [place] [address] Sep, [facility] [place] [facility] [address] [id number], [place] [address] Sep, [facility] [place] [facility] [address] [id number] [place] [address] 14 Aug, 2013 [facility] [place] [facility] [address] [id number] [place] [address] 14 Aug, 2013 [facility] [place] [facility] [address] [id number] [place] [address] 07 Aug, 2013 [facility] [place] [facility] [address] [id number] [place] [address] 07 Aug, 2013 [facility] [place] [facility] [address] [id number] [place] [address] 06 Jul, 2013 [facility] [place] [facility] [address] [id number] [place] [address] Jul, [facility] [place] [facility] [address] [id number] [place] [address] Jun, [facility] [place] [facility] [address] [id number] [place] [address] Jun, [facility] [place] [facility] [address] [id number] [place] [address] May, [facility] [place] [facility] [address] [id number] [place] [address] May, [facility] [place] [facility] [address] [id number] [place] [address] May, [facility] [place] [facility] [address] [id number] [place] [address] May, [facility] [place] [facility] [address] [id number] [place] [address] May, [facility] [place] [facility] [address] [id number] [place] [address] May, [facility] [place] [facility] [address] [id number] [place] [address] Apr, [facility] [place] [facility] [address] [id number] [place] [address] Apr, [facility] [address] [id number] [place] [address] Apr, [facility] [place] [facility] [address] [id number] [place] [address] Apr, [facility] [place] [facility] [address] [id number] [place] [address] March, [facility] [place] [facility] [address] [id number] [place] [address] March, [facility] [place] [facility] [address] [id number] [place] [address] March, [facility] [place] [facility] [address] [id number] [place] [address] Feb, [facility] [place] [facility] [address] [id number] [place] [address] Feb, [facility] [place] [facility] [address] [address] [id number] [place] [address] Jan, [facility] [place] [facility] [address] [id number] [place] [address] Dec, [facility] [place] [facility] [address] [id number] [place] [address] Dec, [facility] [place] [facility] [address] [id number] [place] [address] Dec, [facility] [place] [facility] [address] [id number] [place] [address] Dec, [facility] [place] [facility] [address] [id number] [place] [address] Dec, [facility] [place] [facility] [address] [id number] [place] [address] Nov, [facility] [place] [facility] [address] [id number] [place] [address] Nov, [facility] [place] [facility] [address] [id number] [place] [address] Nov, [facility] [place] [facility] [address] [id number] [place] [address] Nov, [facility] [place] [facility] [address] [id number] [place] [address] Nov, [facility] [place] [facility] [address] [id number] [place] [address] Oct, [facility] [place] [facility] [address] [id number] [place] [address] Oct, [facility] [place] [facility] [address] [id number] [place] [address] Oct, [facility] [place] [facility] [address] [id number] [place] [address] Oct, [facility] [place] [facility] [address] [id number] [place] [address] Sep, [facility] [place] [facility] [address] [id number] [place] [address] Sep, [facility] [place] [facility] [address] [id number] [place] [address] Sep, [facility] [place] [facility] [address] [id number] [place] [address] Sep, [facility] [place] [facility] [address] [id number] [place] [address] Sep, [facility] [place] [facility] [address] [id number] [place] [address] Sep, [facility] [place] [facility] [address] [id number] [place] [address] Sep, [facility] [place] [facility] [address] [id number] [place] [address] Sep, [facility] [place] [facility] [address] [id number] [place] [address] Sep, [facility] [place] [facility] [address] [id number] [place] [address] Sep, [facility] [place] [facility] [address] [id number] [place] [address] Aug, [facility] [place] [facility] [address] [id number] [place] [address] Aug, [facility] [place] [facility] [address] [id number] [place] [address] Aug, [facility] [place] [facility] [address] [id number] [place] [address] Aug, [facility] [place] [facility] [address] [id number] [place] [address] Aug, [facility] [place] [facility] [address] [facility] [id number] [place] [address] Aug, [facility] [place] [facility] [address] [id number] [place] [address] Jul, [facility] [place] [facility] [address] [id number] [place] [address] Jun, [facility] [place] [facility] [address] [id number], [place] [address] Apr, [facility] [place] [facility] [address] [id number], [place] [address] Apr, [facility] [place] [facility] [address] [id number], [place] [address] Apr, [facility] [place] [facility] [address] [id number] [place] [address] Apr, [facility] [place] [facility] [address] [id number], [place] [address] March, [facility] [place] [facility] [address] [facility] [id number] [place] [address] March, [facility] [place] [facility] [address] [id number] [place] [address] March, [facility] [address] [id number] [place] [address] March, [facility] [place] [facility] [address] [id number] [place] [address] March, [facility] [place] [facility] [address] [id number] [place] [address] Feb, [facility] [place] [facility] [address] [id number] [place] [address] Feb, [facility] [place] [facility] [address] [id number] [place] [address] Feb, [facility] [place] [facility] [address] [id number] [place] [address] Feb, [facility] [place] [facility] [address] [id number] [place] [address] Jan, [facility] [place] [facility] [address] [id number] [place] [address] Jan, [facility] [place] [facility] [address] [id number] [place] [address] 05 Jan, 2012 [facility] [place] [facility] [address] [facility] [id number] [place] [address] 28 Dec, 2011 [facility] [place] [facility] [address] [id number] [place] [address] 15 Dec, 2011 [facility] [place] [facility] [address] [id number] [place] [address] 14 Dec, 2011 [facility] [place] [facility] [address] [id number] [place] [address] 08 Dec, 2011 [facility] [place] [facility] [address] [id number] [place] [address] 08 Dec, 2011 [facility] [place] [facility] [address] [id number] [place] [address] Nov, [facility] [address] [id number] [address] Nov, [facility] [id number] [address] Nov, [facility] [id number] [address] Oct, [facility] [id number] [place] [address] Oct, [facility] [id number] [address] Oct, [facility] [id number] [address] Sep, [facility] [id number] [address] Jul, [facility] [id number], [place] [address] Apr, IMMUNIZATIONS No Known Immunizations SOCIAL HISTORY [...]
[2019-06-22] MEDS ORDERED: TETANUS,DIPTH,PERTUSS P/F (BOOSTRIX) 0.5 ML VIAL IM ONE (21:30)
[2019-06-22] MEDS ORDERED: LIDOCAINE 1% INJ 20 ML 20 ML VIAL INJ ONE (21:30)
--- NOTE | 2019-06-22 21:45 | NUR ---
c-collar applied to pt.
--- OUTSIDE RECORDS SUMMARY | 2019-06-22 21:48 | XMS REPORT | Continuity of Care Document ---
Author Organization Unknown Address Unknown Phone Unavailable Allergies There is no data. Medications There is no data. Problems Date Dx Coded Attending Type Code Diagnosis Diagnosed By 12/16/2010 KUN ESCALANTE APRN S 250.00 DIABETES MELLITUS WITHOUT MENTION OF COMPLICATION TYPE II OR UNSPECIFIED TYPE NOT STATED UNCONTROLLED 12/16/2010 DESHAUN ESCALANTE APRNNDA S 272.4 OTHER AND UNSPECIFIED HYPERLIPIDEMIA 12/16/2010 DESHAUN ESCALANTE APRNNDA S 401.1 BENIGN ESSENTIAL HYPERTENSION 12/16/2010 AVA RAY KUN S 719.40 PAIN IN JOINT SITE UNSPECIFIED 12/16/2010 AVA RAY KUN S 250.00 DIABETES MELLITUS TYPE 2 12/16/2010 AVA RAY KUN S 272.4 OTHER AND UNSPECIFIED HYPERLIPIDEMIA 12/16/2010 DESHAUN ESCALANTE APRNNDA S 401.1 BENIGN ESSENTIAL HYPERTENSION 12/16/2010 AVA [...] PAIN IN JOINT SITE UNSPECIFIED 12/16/2010 JACKSON DO SEAN K 250.00 DIABETES MELLITUS TYPE 2 12/16/2010 JACKSON DO SEAN K 272.4 OTHER AND UNSPECIFIED HYPERLIPIDEMIA 12/16/2010 JACKSON DO SEAN K 401.1 BENIGN ESSENTIAL HYPERTENSION 12/16/2010 SEAN JACKSON DO K 719.40 PAIN IN JOINT SITE UNSPECIFIED 12/16/2010 AVA SMOKING TOBACCO PACKER HAND, KUN S 250.00 DIABETES MELLITUS TYPE 2 12/16/2010 AVA SMOKING TOBACCO PACKER HAND, KUN S 272.4 OTHER AND UNSPECIFIED HYPERLIPIDEMIA 12/16/2010 AVA SMOKING TOBACCO PACKER HAND, KUN S 401.1 BENIGN ESSENTIAL HYPERTENSION 12/16/2010 AVA SMOKING TOBACCO PACKER HAND, KUN S 719.40 PAIN IN JOINT SITE UNSPECIFIED 12/16/2010 GISELL SMOKING TOBACCO PACKER HAND, ANALISA T 250.00 DIABETES MELLITUS TYPE 2 12/16/2010 GISELL SMOKING TOBACCO PACKER HAND, ANALISA T 272.4 OTHER AND UNSPECIFIED HYPERLIPIDEMIA 12/16/2010 GISELL SMOKING TOBACCO PACKER HAND, ANALISA T 401.1 BENIGN ESSENTIAL HYPERTENSION 12/16/2010 GISELL SMOKING TOBACCO PACKER HAND, ANALISA T 719.40 PAIN IN JOINT SITE UNSPECIFIED 12/16/2010 AVA SMOKING TOBACCO PACKER HAND, KUN S 250.00 DIABETES MELLITUS TYPE 2 12/16/2010 AVA SMOKING TOBACCO PACKER HAND, KUN S 272.4 OTHER AND UNSPECIFIED HYPERLIPIDEMIA 12/16/2010 AVA SMOKING TOBACCO PACKER HAND, KUN S 401.1 BENIGN ESSENTIAL HYPERTENSION 12/16/2010 AVA SMOKING TOBACCO PACKER HAND, KUN S 719.40 PAIN IN JOINT SITE UNSPECIFIED 12/16/2010 AVA SMOKING TOBACCO PACKER HAND, KUN S 250.00 DIABETES MELLITUS WITHOUT MENTION OF COMPLICATION TYPE II OR UNSPECIFIED TYPE NOT STATED UNCONTROLLED 12/16/2010 AVA SMOKING TOBACCO PACKER HAND, KUN S 272.4 OTHER AND UNSPECIFIED HYPERLIPIDEMIA 12/16/2010 AVA SMOKING TOBACCO PACKER HAND, KUN S 401.1 BENIGN ESSENTIAL HYPERTENSION 12/16/2010 AVA SMOKING TOBACCO PACKER HAND, KUN S 719.40 PAIN IN JOINT SITE UNSPECIFIED 12/16/2010 AVA SMOKING TOBACCO PACKER HAND, KUN S 250.00 DIABETES MELLITUS TYPE 2 12/16/2010 AVA SMOKING TOBACCO PACKER HAND, KUN S 272.4 OTHER AND UNSPECIFIED HYPERLIPIDEMIA 12/16/2010 AVA SMOKING TOBACCO PACKER HAND, KUN S 401.1 BENIGN ESSENTIAL HYPERTENSION 12/16/2010 AVA SMOKING TOBACCO PACKER HAND, KUN S 719.40 PAIN IN JOINT SITE UNSPECIFIED 12/16/2010 AVA SMOKING TOBACCO PACKER HAND, KUN S 250.00 DIABETES MELLITUS TYPE 2 12/16/2010 AVA SMOKING TOBACCO PACKER HAND, KUN S 272.4 OTHER AND UNSPECIFIED HYPERLIPIDEMIA 12/16/2010 AVA SMOKING TOBACCO PACKER HAND, KUN S 401.1 BENIGN ESSENTIAL HYPERTENSION 12/16/2010 AVA SMOKING TOBACCO PACKER HAND, KUN S 719.40 PAIN IN JOINT SITE UNSPECIFIED 01/18/2011 AVA SMOKING TOBACCO PACKER HAND, KUN S 296.80 BIPOLAR DISORDER UNSPECIFIED 01/18/2011 AVA SMOKING TOBACCO PACKER HAND, KUN S 296.80 BIPOLAR DISORDER UNSPECIFIED 01/18/2011 296.80 BIPOLAR DISORDER UNSPECIFIED 01/18/2011 AVA SMOKING TOBACCO PACKER HAND, KUN S 296.80 BIPOLAR DISORDER UNSPECIFIED 01/18/2011 MANUEL DO, SEAN K 296.80 BIPOLAR DISORDER UNSPECIFIED 01/18/2011 AVA SMOKING TOBACCO PACKER HAND, KUN S 296.80 BIPOLAR DISORDER UNSPECIFIED 01/18/2011 ANALISA JAMESON APRN 296.80 BIPOLAR DISORDER UNSPECIFIED 01/18/2011 AVA SMOKING TOBACCO PACKER HAND, KUN S 296.80 BIPOLAR DISORDER UNSPECIFIED 01/18/2011 AVA SMOKING TOBACCO PACKER HAND, KUN S 296.80 BIPOLAR DISORDER UNSPECIFIED 01/18/2011 AVA SMOKING TOBACCO PACKER HAND, KUN S 296.80 BIPOLAR DISORDER UNSPECIFIED 01/18/2011 AVA SMOKING TOBACCO PACKER HAND, KUN S 296.80 BIPOLAR DISORDER UNSPECIFIED 04/23/2011 AVA SMOKING TOBACCO PACKER HAND, KUN S 285.9 ANEMIA 04/23/2011 AVA SMOKING TOBACCO PACKER HAND, KUN S 285.9 ANEMIA 04/23/2011 285.9 ANEMIA 04/23/2011 AVA SMOKING TOBACCO PACKER HAND, KUN S 285.9 ANEMIA 04/23/2011 MANUEL JUSTIN SEAN K 285.9 ANEMIA 04/23/2011 AVA SMOKING TOBACCO PACKER HAND, KUN S 285.9 ANEMIA 04/23/2011 ANALISA JAMESON APRN 285.9 ANEMIA 04/23/2011 AVA SMOKING TOBACCO PACKER HAND, KUN S 285.9 ANEMIA 04/23/2011 AVA SMOKING TOBACCO PACKER HAND, KUN S 285.9 ANEMIA 04/23/2011 AVA SMOKING TOBACCO PACKER HAND, KUN S 285.9 ANEMIA 04/23/2011 AVA SMOKING TOBACCO PACKER HAND, KUN S 285.9 ANEMIA 07/25/2011 AVA SMOKING TOBACCO PACKER HAND, KUN S V03.82 PPV23 (PNEUMOVAX) DX 07/25/2011 AVA SMOKING TOBACCO PACKER HAND, KUN S V03.82 PPV23 (PNEUMOVAX) DX 07/25/2011 V03.82 PPV23 (PNEUMOVAX) DX 07/25/2011 AVA SMOKING TOBACCO PACKER HAND, KUN S V03.82 PPV23 (PNEUMOVAX) DX 07/25/2011 JACKSON DO, SEAN K V03.82 PPV23 (PNEUMOVAX) DX 07/25/2011 AVA RAY, KUN S V03.82 PPV23 (PNEUMOVAX) DX 07/25/2011 ANALISA JAMESON APRN V03.82 PPV23 (PNEUMOVAX) DX 07/25/2011 AVA SMOKING TOBACCO PACKER HAND, KUN S V03.82 PPV23 (PNEUMOVAX) DX 07/25/2011 AVA ALONZON, KUN S V03.82 PPV23 (PNEUMOVAX) DX 07/25/2011 DESHAUN ESCALANTE APRNNDA S V03.82 PPV23 (PNEUMOVAX) DX 07/25/2011 DESHAUN ESCALANTE APRNNDA S V03.82 PPV23 (PNEUMOVAX) DX 11/07/2011 AVA SMOKING TOBACCO PACKER HAND, KUN S 496 CHRONIC AIRWAY OBSTRUCTION NOT ELSEWHERE CLASSIFIED 11/07/2011 AVA SMOKING TOBACCO PACKER HAND, KUN S 496 CHRONIC AIRWAY OBSTRUCTION NOT ELSEWHERE CLASSIFIED 11/07/2011 496 CHRONIC AIRWAY OBSTRUCTION NOT ELSEWHERE CLASSIFIED 11/07/2011 AVA ALONZON, KUN S 496 CHRONIC AIRWAY OBSTRUCTION NOT ELSEWHERE CLASSIFIED 11/07/2011 JACKSON DO, SEAN K 496 CHRONIC AIRWAY OBSTRUCTION NOT ELSEWHERE CLASSIFIED 11/07/2011 AVA ALONZON, KUN S 496 CHRONIC AIRWAY OBSTRUCTION NOT ELSEWHERE CLASSIFIED 11/07/2011 ANALISA JAMESON APRN 496 CHRONIC AIRWAY OBSTRUCTION NOT ELSEWHERE CLASSIFIED 11/07/2011 AVA SMOKING TOBACCO PACKER HAND, KUN S 496 CHRONIC AIRWAY OBSTRUCTION NOT ELSEWHERE CLASSIFIED 11/07/2011 AVA SMOKING TOBACCO PACKER HAND, KUN S 496 CHRONIC AIRWAY OBSTRUCTION NOT ELSEWHERE CLASSIFIED 11/07/2011 AVA SMOKING TOBACCO PACKER HAND, KUN S 496 CHRONIC AIRWAY OBSTRUCTION NOT ELSEWHERE CLASSIFIED 11/07/2011 AVA SMOKING TOBACCO PACKER HAND, KUN S 496 CHRONIC AIRWAY OBSTRUCTION NOT ELSEWHERE CLASSIFIED 12/26/2011 AVA SMOKING TOBACCO PACKER HAND, KUN S 296.50 MO BIPOLAR I DEPRESSED UNSPECIFIED 12/26/2011 AVA RAY, KUN S 296.50 MO BIPOLAR I DEPRESSED UNSPECIFIED 12/26/2011 296.50 MO BIPOLAR I DEPRESSED UNSPECIFIED 12/26/2011 AVA ALONZON, KUN S 296.50 MO BIPOLAR I DEPRESSED UNSPECIFIED 12/26/2011 JACKSON DO, SEAN K 296.50 MO BIPOLAR I DEPRESSED [...] 01/15/2012 AVA RAY, KUN S 272.1 HYPERTRIGLYCERIDEMIA 01/16/2012 AVA RAY, KUN S 300.00 AN ANXIETY UNSPEC 01/16/2012 AVA RAY KUN S 300.00 AN ANXIETY UNSPEC 01/16/2012 300.00 [...] APRNNDA S 300.00 AN ANXIETY UNSPEC 01/16/2012 AVA SMOKING TOBACCO PACKER HANDDESHAUN MachadoNDA S 300.00 AN ANXIETY UNSPEC 02/16/2012 DESHAUN ESCALANTE APRNNDA S 300.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 02/16/2012 DESHAUN ESCALANTE APRNNDA S 300.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 02/16/2012 300.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 02/16/2012 DESHAUN ESCALANTE APRNNDA S 300.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 02/16/2012 SEAN [...] ANALISA JAMESON APRN 338.29 CHRONIC PAIN 05/22/2013 AVA RAY KUN S 338.29 CHRONIC PAIN 05/22/2013 AVA RAY KUN S 338.29 CHRONIC PAIN 05/22/2013 DESHAUN ESCALANTE APRNNDA S 338.29 CHRONIC PAIN 09/18/2013 JACKSON DO, SEAN K 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 UNCONTROLLED OR UNSPECIFIED 09/18/2013 AVA SMOKING TOBACCO PACKER HAND, KUN S 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 UNCONTROLLED OR UNSPECIFIED 09/18/2013 GISELL RAY, ANALISA T 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 UNCONTROLLED OR UNSPECIFIED 09/18/2013 AVA SMOKING TOBACCO PACKER HAND, KUN S 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 UNCONTROLLED OR UNSPECIFIED 09/18/2013 AVA SMOKING TOBACCO PACKER HAND, KUN S 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 UNCONTROLLED OR UNSPECIFIED 09/18/2013 AVA SMOKING TOBACCO PACKER HAND, KUN S 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 UNCONTROLLED OR UNSPECIFIED 02/24/2014 AVA SMOKING TOBACCO PACKER HAND, KUN S 302.72 ERECTILE DISORDER 02/24/2014 AVA SMOKING TOBACCO PACKER HAND, KUN S 356.9 NEUROPATHY 02/24/2014 AVA SMOKING TOBACCO PACKER HAND, KUN S 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 02/24/2014 AVA SMOKING TOBACCO PACKER HAND, KUN S 788.43 NOCTURIA 02/24/2014 ANALISA JAMESON APRN T 302.72 ERECTILE DISORDER 02/24/2014 ANALISA JAMESON APRN T 356.9 NEUROPATHY 02/24/2014 GISELL RAY, ANALISA T 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 02/24/2014 GISELL RAY, ANALISA T 788.43 NOCTURIA 02/24/2014 AVA SMOKING TOBACCO PACKER HAND, KUN S 302.72 ERECTILE DISORDER 02/24/2014 AVA SMOKING TOBACCO PACKER HAND, KUN S 356.9 NEUROPATHY 02/24/2014 AVA SMOKING TOBACCO PACKER HAND, KUN S 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 02/24/2014 AVA SMOKING TOBACCO PACKER HAND, KUN S 788.43 NOCTURIA 02/24/2014 AVA SMOKING TOBACCO PACKER HAND, KUN S 302.72 ERECTILE DISORDER 02/24/2014 AVA SMOKING TOBACCO PACKER HAND, KUN S 356.9 NEUROPATHY 02/24/2014 AVA SMOKING TOBACCO PACKER HAND, KUN S 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 02/24/2014 AVA SMOKING TOBACCO PACKER HAND, KUN S 788.43 NOCTURIA 02/24/2014 AVA SMOKING TOBACCO PACKER HAND, KUN S 302.72 ERECTILE DISORDER 02/24/2014 KUN ESCALANTE APRN S 356.9 NEUROPATHY 02/24/2014 DESHAUN ESCALANTE APRNNDA S 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 02/24/2014 NOHELIA ESCALANTE APRNA S 788.43 NOCTURIA 04/22/2014 ANALISA JAMESON APRN 601.9 PROSTATITIS UNSPECIFIED 04/22/2014 ANALISA JAMESON APRN V76.44 PROSTATE SCREENING 04/22/2014 DESHAUN ESCALANTE APRNNDA S 601.9 PROSTATITIS UNSPECIFIED 04/22/2014 DESHAUN ESCALANTE APRNNDA S V76.44 PROSTATE SCREENING 04/22/2014 DESHAUN ESCALANTE APRNNDA S 601.9 PROSTATITIS UNSPECIFIED 04/22/2014 DESHAUN ESCALANTE APRNNDA S V76.44 PROSTATE SCREENING 04/22/2014 DESHAUN ESCALANTE APRNNDA S 601.9 PROSTATITIS UNSPECIFIED 04/22/2014 DESHAUN ESCALANTE APRNNDA S V76.44 PROSTATE SCREENING Procedures Code [place] [address] URINE DRUG SCREEN (IN-HOUSE) 09/17/2012 87043 A1C (IN-HOUSE) 01/01/2013 40364 ROUTINE VENIPUNCTURE 05/05/2013 34923 A1C (IN-HOUSE) 05/05/2013 96919 CMP 05/05/2013 [id number] GFR CALC (RESULT ONLY) 05/05/2013 36257 LIPID PANEL 05/05/2013 87594 A1C (IN-HOUSE) 09/18/2013 30695 MICRO ALBUMIN-IN HOUSE 09/18/2013 98401 ROUTINE VENIPUNCTURE 02/24/2014 71952 A1C (IN-HOUSE) 02/24/2014 36747 CBC 02/24/2014 31939 CMP 02/24/2014 [id number] GFR CALC (RESULT ONLY) 02/24/2014 89345 LIPID PANEL 02/24/2014 97147 PSA TOTAL 02/24/2014 81340 TSH 02/24/2014 AMERITOX AMERITOX DRUG SCREEN 02/26/2014 93109 ROUTINE VENIPUNCTURE 06/19/2014 99102 A1C (IN-HOUSE) 06/19/2014 59662 LIPID PANEL 06/19/2014 09802 MICRO ALBUMIN-IN HOUSE 06/23/2014 81639 MICROALBUMIN 06/23/2014 29152 ROUTINE VENIPUNCTURE 10/12/2014 81842 A1C (IN-HOUSE) 10/12/2014 52251 LIPID PANEL 10/12/2014 [employer] AMER[facility] DRUG SCREEN 10/19/2014 [facility] [employer] DRUG SCREEN 02/17/2015 80916 A1C (IN-HOUSE) 02/17/2015 29477 MICRO ALBUMIN-IN HOUSE 02/17/2015 Results Test Result Range CULTURE, ANAEROBIC AND AEROBIC - 10/24/17 11:28 CULTURE, ANAEROBIC BACTERIA W/GRAM STAIN SEE NOTE NRG CULTURE, AEROBIC BACTERIA SEE NOTE NRG A1C - 10/21/18 10:33 HEMOGLOBIN A1c 6.3 % of total Hgb <5.7 ASO - 05/21/19 09:44 ANTI-STREPTOLYSIN O 249 IU/mL <200 SEEMA - 05/21/19 09:44 SEEMA SCREEN, IFA NEGATIVE NEGATIVE [place] DISEASE, ANTIBODY PANEL - 05/21/19 09:44 LYME AB SCREEN <0.90 index NRG INTERPRETATION NRG A. PHAGOCYTOPHILUM AB (IGG) <1:64 NRG A. PHAGOCYTOPHILUM AB (IGM) <1:20 NRG INTERPRETATION NRG BABESIA DUNCANI (WA1) ANTIBODY (IGG), IFA <1:256 NRG BABESIA MICROTI AB (IGG) <1:64 titer NRG BABESIA MICROTI AB (IGM) <1:20 titer NRG INTERPRETATION NRG E. CHAFFEENSIS AB IGG <1:64 NRG E. CHAFFEENSIS AB IGM <1:20 NRG ASO - 06/02/19 15:28 ANTI-STREPTOLYSIN O 226 IU/mL <200 Encounters ACCT No. Visit Date/Time Discharge Status Pt. Type Provider Facility Loc./Unit Complaint [id number] 06/02/2019 13:20:00 06/02/2019 23:59:59 CLS Outpatient KUN ESCALANTE APRN [facility] [id number] 06/02/2019 13:20:00 Document Registration [id number] 05/21/2019 08:20:00 Document Registration [id number] 10/21/2018 09:00:00 Document Registration [id number] 10/24/2017 10:10:00 Document Registration [id number] 02/17/2015 08:56:00 02/17/2015 23:59:59 CLS Outpatient AVA SMOKING TOBACCO PACKER HANDDESHAUNKUN S [id number] 10/14/2014 15:46:00 10/14/2014 23:59:59 CLS Outpatient AVA SMOKING TOBACCO PACKER HANDKUN S [id number] 06/23/2014 09:13:00 06/23/2014 23:59:59 CLS Outpatient AVA ALONZONKUN S [id number] 04/22/2014 09:49:00 04/22/2014 23:59:59 CLS Outpatient ANALISA JAMESON APRN [id number] 02/24/2014 14:17:00 02/24/2014 23:59:59 CLS Outpatient AVA SMOKING TOBACCO PACKER HANDKUN S [id number] 09/18/2013 08:58:00 09/18/2013 23:59:59 CLS Outpatient JACKSON SEAN JUSTIN Veronica [id number] 05/22/2013 12:51:00 05/22/2013 23:59:59 CLS Outpatient AVA SMOKING TOBACCO PACKER HANDDESHAUNKUN S [id number] 01/01/2013 15:23:00 01/01/2013 23:59:59 CLS Outpatient AVA SMOKING TOBACCO PACKER HAND, KUN S [id number] 09/17/2012 09:05:00 09/17/2012 23:59:59 CLS Outpatient AVA SMOKING TOBACCO PACKER HANDKUN Machado S [id number] 09/06/2012 09:09:00 09/06/2012 23:59:59 CLS Outpatient AVA SMOKING TOBACCO PACKER HAND, KUN S [id number] 05/05/2013 09:08:00 Document Registration
[2019-06-22 21:49] LABS: HEMATOCRIT 39 % (40-54); HEMOGLOBIN 13.3 G/DL (13.3-17.7); MEAN CORPUSCULAR HEMOGLOBIN 30 PG (25-34); MEAN CORPUSCULAR HGB CONC 34 G/DL (32-36); MEAN CORPUSCULAR VOLUME 87 FL (80-99); RED CELL DISTRIBUTION WIDTH 13.7 % (10.0-14.5)
[2019-06-22 21:50] LABS: BASOPHILS % (AUTO) 1 % (0-10); EOSINOPHILS # (AUTO) 0.9 10^3/uL (0.0-0.3); EOSINOPHILS % (AUTO) 11 % (0-10); LYMPHOCYTES # (AUTO) 2.3 X 10^3 (1.0-4.0); LYMPHOCYTES % (AUTO) 29 % (12-44); MEAN PLATELET VOLUME 9.6 FL (7.4-10.4); MONOCYTES # (AUTO) 0.8 X 10^3 (0.0-1.0); MONOCYTES % (AUTO) 10 % (0-12); NEUTROPHILS % (AUTO) 50 % (42-75); PLATELET COUNT 147 10^3/uL (130-400)
[2019-06-22 22:03] LABS: PROTHROMBIN TIME PATIENT 13.3 SEC (12.2-14.7)
[2019-06-22 22:05] LABS: CHLORIDE 105 MMOL/L (98-107); POTASSIUM 3.6 MMOL/L (3.6-5.0); SODIUM 144 MMOL/L (135-145)
[2019-06-22 22:06] LABS: ALANINE AMINOTRANSFERASE 12 U/L (0-55); ALKALINE PHOSPHATASE 94 U/L (40-136); BILIRUBIN,TOTAL 0.2 MG/DL (0.1-1.0); BUN/CREATININE RATIO 19; CALCIUM 9.2 MG/DL (8.5-10.1); CARBON DIOXIDE 25 MMOL/L (21-32); CREATININE SERUM 1.11 MG/DL (0.60-1.30); GFR ESTIMATED > 60; GLUCOSE 97 MG/DL (70-105); TOTAL PROTEIN 6.6 GM/DL (6.4-8.2)
--- NOTE | 2019-06-22 22:06 | ED Trauma-Multisystem ---
General Chief Complaint: Trauma-Non Activation Stated Complaint: FALL Nursing Triage Note: pt co bilateral shoulder and forearm pain, laceration above left eye, approximately 3 inchs History of Present Illness Date Seen by Provider: Jun 22, 2019 Time Seen by Provider: 22:02 Initial Comments 53 yo male diabetc recent having some back problems maybe some gait instability says he was at home, walking from workshop tripped on concrete and fell face down onto concrete suffered sig laceration above left eye no LOC was able to roll over but not get up c/o hypersensitivity and pain both forearms milagro, bilat shoulder pain some degree of weakness in arms denies neck pain pain above left eye with obvious laceration brought by EMS C -collar placed on arrival pt has marked hypersensitivity to touch either arm mliagro forearms Allergies and Home Medications Allergies Coded Allergies: No Known Drug Allergies (Unverified , 04/23/19) Home Medications Hydrocodone Bit/Acetaminophen 1 Tab Tab, 1 EACH PO Q6H PRN for PAIN-MODERATE Prescribed by: COBY NASCIMENTO on 04/23/191748 Prednisone 20 Mg Tab, 40 MG PO DAILY Prescribed by: COBY NASCIMENTO on 04/23/191748 Patient Home Medication List Home Medication List Reviewed: Yes Review of Systems Review of Systems Constitutional: No fever Eyes: No Symptoms Reported; Denies Blurred Vision Ears: No Symptoms Reported Nose: No Symptoms Reported Mouth: No Symptoms Reported Throat: No Symptoms to Report Respiratory: no symptoms reported Cardiovascular: No Symptoms Reported Gastrointestinal: No abdominal pain, No nausea, No vomiting Musculoskeletal: other (denies sx'sanywhere below waist has abrasion over left patella) Past Jspqogq-[id number]-[id number] Hx Patient Social History Alcohol Use: Denies Use Recreational Drug Use: No Smoking Status: Never a Smoker Type Used: Pipe 2nd Hand Smoke Exposure: No Recent Foreign Travel: No Contact w/Someone Who Travel: No Recent Infectious Disease Expo: No Recent Hopitalizations: No Physical Abuse: No Sexual Abuse: No Mistreated: No Fear: No Seasonal Allergies Seasonal Allergies: No Past Medical History Surgeries: Yes (RIGHT ROTATOR CUFF) Orthopedic Respiratory: No Cardiac: No Neurological: No Genitourinary: No Gastrointestinal: Yes Ulcer Musculoskeletal: Yes Chronic Back Pain Endocrine: Yes Diabetes, Non-Insulin dep HEENT: No Cancer: No Psychosocial: Yes Bipolar Integumentary: No Blood Disorders: No Physical Exam Vital Signs Vital Signs - First Documented 8/11/19 21:26 Temp 98.2 Pulse 76 Resp 18 B/P (MAP) 156/96 (116) Pulse Ox 97 O2 Delivery Room Air Height, Weight, BMI Height: 5'8.00" Weight: 255lbs. oz. 115.139726qj; BMI Method:Stated General Appearance: Anxious Head: Other (6cm laceration in area of left eyebrow) Eyes: Bilateral Eye PERRL, Bilateral Eye EOMI Ears, Nose, Throat: No Clear Fluid (Nose) Neck: Non Tender Cardiovascular: Regular Rate, Rhythm Respiratory: Lungs Clear Gastrointestinal: Non Tender, Soft Back: Normal Inspection Extremity: Other (no deformity or apparent orthopedic injury of UE's but marked hypersensitivity to touch) Neurologic/Psychiatric: Alert, Oriented x3, piano sounding board matcher II-XII Norm as Tested Procedures/Interventions Wound Location: Face Other Wound Location in left eyebrow Wound Length (cm): 6 Wound's Depth, Shape: linear Wound Explored: clean Irrigated w/ Saline (ccs): 200 Anesthesia: 1% Lidocaine Volume Anesthetic (ccs): 4 Suture: Ethlion Suture Size: 5-0 Number of Sutures: 8 Progress/Results/Core Measures Results/Orders Lab Results Laboratory Tests Test 06/22/19 21:40 Range/Units White Blood Count 8.0 4.3-11.0 10^3/uL Red Blood Count 4.47 4.35-5.85 10^6/uL Hemoglobin 13.3 13.3-17.7 G/DL Hematocrit 39 L 40-54 % Mean Corpuscular Volume 87 80-99 FL Mean Corpuscular Hemoglobin 30 25-34 PG Mean Corpuscular Hemoglobin Concent 34 32-36 G/DL Red Cell Distribution Width 13.7 10.0-14.5 % Platelet Count 147 130-400 10^3/uL Mean Platelet Volume 9.6 7.4-10.4 FL Neutrophils (%) (Auto) 50 42-75 % Lymphocytes (%) (Auto) 29 12-44 % Monocytes (%) (Auto) 10 0-12 % Eosinophils (%) (Auto) 11 H 0-10 % Basophils (%) (Auto) 1 0-10 % Neutrophils # (Auto) 4.0 1.8-7.8 X 10^3 Lymphocytes # (Auto) 2.3 1.0-4.0 X 10^3 Monocytes # (Auto) 0.8 0.0-1.0 X 10^3 Eosinophils # (Auto) 0.9 H 0.0-0.3 10^3/uL Basophils # (Auto) 0.0 0.0-0.1 10^3/uL Prothrombin Time 13.3 12.2-14.7 SEC INR Comment 1.0 0.8-1.4 Sodium Level 144 135-145 MMOL/L Potassium Level 3.6 3.6-5.0 MMOL/L Chloride Level 105 98-107 MMOL/L Carbon Dioxide Level 25 21-32 MMOL/L Anion Gap 14 5-14 MMOL/L Blood Urea Nitrogen 21 H 7-18 MG/DL Creatinine 1.11 0.60-1.30 MG/DL Estimat Glomerular Filtration Rate > 60 BUN/Creatinine Ratio 19 Glucose Level 97 70-105 MG/DL Calcium Level 9.2 8.5-10.1 MG/DL Corrected Calcium 8.9 8.5-10.1 MG/DL Total Bilirubin 0.2 0.1-1.0 MG/DL Aspartate Amino Transf (AST/SGOT) 19 5-34 U/L Alanine Aminotransferase (ALT/SGPT) 12 0-55 U/L Alkaline Phosphatase 94 40-136 U/L Total Protein 6.6 6.4-8.2 GM/DL Albumin 4.4 3.2-4.5 GM/DL My Orders Orders - LEILANI BENNETT MD Cervical Collar (06/22/19 21:29) Iv Heplock-Insert (Order) (06/22/19 21:29) Cbc With Automated Diff (06/22/19 21:29) Protime With Inr (06/22/19 21:29) Comprehensive Metabolic Panel (06/22/19 21:29) Dipht,Pertuss(Acell),Tet Adult (Boostrix (06/22/19 21:30) Lidocaine 1% Inj 20 Ml (Xylocaine 1% Inj (06/22/19 21:30) Ct Head/Cervical Spine Wo (06/22/19 21:29) Forearm 2 View Bilateral (06/22/19 21:50) Chest 1 View Ap/Pa Only (06/22/19 22:01) Humerus 2v Or More Bilateral (06/22/19 22:48) Fentanyl Injection (Sublimaze Injection (06/22/19 23:45) Medications Given in ED Current Medications Medications Dose Ordered Sig/Niyah Route Start Time Stop Time Status Last Admin Dose Admin Diphtheria/ Tetanus/Acell Pertussis 0.5 ml ONCE ONCE IM 06/22/19 21:30 06/22/19 21:33 DC 06/22/19 21:57 0.5 ML Fentanyl Citrate 50 mcg ONCE ONCE IVP 06/22/19 23:45 06/22/19 23:46 DC 06/22/19 23:36 50 MCG Lidocaine HCl 20 ml ONCE ONCE INJ 06/22/19 21:30 06/22/19 21:33 DC 06/22/19 21:58 20 ML Vital Signs/I&O 06/22/19 21:26 Temp 98.2 Pulse 76 Resp 18 B/P (MAP) 156/96 (116) Pulse Ox 97 O2 Delivery Room Air Blood Pressure Mean: 116 Progress Progress Note : Time: 23:[address] head with no acute findings ct c spine no fx or disloc some areas of foramenal stenosis and possible spinal stenosis pt says left arm remains hyper esthetic right is better has some weakness but 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 Agee trauma surgeon at [facility] feels pt optimally should be at facility with neurosurgery available pt actually has appt with neurosurg Dr. Combs at [facility] next week for his back have called [facility] at [phone] multiple times to try to arrange transfer, not getting through have now spoken with Dr. Namrata bojorquezurg and Dr. Oh Chapa Er at [facility], pt accepted to come through ER Diagnostic Imaging Diagonstic Imaging: Xray (chest, both shoulders, bilat humerus, and bilateral forearm films appear negative x apparent old injury late left clavicle) Departure Impression Primary Impression: Central cord syndrome Qualified Codes: S14.129A - Central cord syndrome at unspecified level of cervical spinal cord, initial encounter Additional Impression: Facial laceration Qualified Codes: S01.81XA - Laceration without foreign body of other part of head, initial encounter Disposition: 02 XFER SHT-TRM HOSP Condition: Stable Transfer Time Spoke to Accepting Phy: 00:10 Transfer Facility: see above pt to transfer to [facility] in [place] Dr Sweaney neurosurg aware Method of Transfer: EMS Departure-Patient Inst. Referrals: NO,LOCAL PHYSICIAN (PCP/Family) Primary Care Physician LEILANI BENNETT MD Jun 22, 2019 22:06
[2019-06-22 22:07] LABS: ALBUMIN 4.4 GM/DL (3.2-4.5)
[2019-06-22] MEDS ORDERED: fentaNYL INJECTION 100 MCG/2 ML AMP IVP ONE (23:45)
[2019-06-23 00:30] VITALS: BP 137/87
--- NOTE | 2019-06-23 00:30 | NUR ---
ems here for transport, report and care given to ems.
--- NOTE | 2019-06-23 06:47 | Diagnostic Imaging Report ---
PROCEDURE: CT head and CT cervical spine without contrast. TECHNIQUE: Multiple contiguous axial images were obtained through the brain and cervical spine without the use of intravenous contrast. Sagittal and coronal reformations through the cervical spine were then performed. Auto Exposure Controls were utilized during the CT exam to meet ALARA standards for radiation dose reduction. INDICATION: Head and neck pain. FINDINGS: The ventricles and sulci are within normal limits. There is no hydrocephalus. There is no midline shift. There is no intracranial mass, hemorrhage or extra-axial fluid collection. Calvarium is intact. The sinuses and mastoid air cells are clear. There is straightening of the normal cervical lordosis. There are markedly prominent osteophytes along the anterior aspect of the cord at C2, C3, C4, C5, C6 and C7. There is severe degenerative disc disease at C5-C6. This is associated with some subchondral sclerosis. There is no fracture or traumatic subluxation. The odontoid is intact and lateral masses are well-aligned. Prevertebral soft tissues are within normal limits. IMPRESSION: 1. No acute intracranial abnormality. 2. Severe cervical spondylosis and degenerative disc disease as described. Dictated by: Dictated on workstation # [id number]
--- NOTE | 2019-06-23 07:07 | Diagnostic Imaging Report ---
INDICATION: Bilateral forearm pain, laceration. Findings: 2 views of the right forearm demonstrates some degenerative changes within the wrist. No fracture or dislocation is present. 2 views of the left forearm demonstrates normal ossification. No fractures are present. IMPRESSION: There are no acute findings to forearms. Dictated by: Dictated on workstation # [id number]
--- NOTE | 2019-06-23 07:08 | Diagnostic Imaging Report ---
Indication: Laceration above the left side Findings: Frontal view of the chest demonstrates the lungs to be clear. The heart, mediastinum, pulmonary vascularity and visualized bony thorax are normal. Impression: Negative chest. Dictated by: Dictated on workstation # [id number]
--- NOTE | 2019-06-23 07:10 | Diagnostic Imaging Report ---
Indication: Bilateral shoulder and forearm pain, laceration Findings: 2 views of the right humerus demonstrates no fracture or dislocation. Degenerative changes are present in the right shoulder, minimal degenerative changes in the elbow. 2 views of the left humerus demonstrates normal ossification. No fracture or dislocation is seen. Impression: There are no acute findings. Dictated by: Dictated on workstation # [id number]
== END 2019-06-23 00:30 | disposition short-term general hospital (02) ==
LOC: EDUNIT# 21:07 → ER FS 21:09
DX: S14.129A Central cord syndrome at unspecified level of cervical spinal cord, initial encounter (principal); S01.81XA Laceration without foreign body of other part of head, initial encounter; E11.9 Type 2 diabetes mellitus without complications; F31.9 Bipolar disorder, unspecified; Z23 Encounter for immunization; Z79.52 Long term (current) use of systemic steroids; W01.198A Fall on same level from slipping, tripping and stumbling with subsequent striking against other object, initial encounter
CPT/HCPCS: 36415; 70450; 71045; 72125; 80053; 85025; 85610; 90715

== ENCOUNTER 2019-08-17 14:55 | Inpatient (IN) | payer OTHER ==
[~2019-08-17] VITALS: Ht 177.8 cm; Wt 107.6 kg
[2019-08-17] MEDS ORDERED: NS IV 500 ML 500 ML IV ONE (15:08)
[2019-08-17] MEDS ORDERED: NS (IVPB) 250 ML ONE (15:12)
[2019-08-17] MEDS ORDERED: NOREPINEPHRINE 4 MG/4 ML (LEVOPHED) AMP IV ONE (15:13)
[2019-08-17] MEDS ORDERED: fentaNYL INJECTION 100 MCG/2 ML AMP IVP ONE ×2 (15:15→18:00)
[2019-08-17] MEDS ORDERED: CEFEPIME INJECTION 1,000 MG in WATER (STERILE) FOR INJECTION 10 ML IV ONE (15:15)
[2019-08-17] MEDS ORDERED: ACETAMINOPHEN 500 MG TAB (TYLENOL) PO PRN ×2 (15:15→19:30)
[2019-08-17 15:17] LABS: BASOPHILS % (AUTO) 0 % (0-10); EOSINOPHILS % (AUTO) 0 % (0-10); HEMATOCRIT 30 % (40-54); HEMOGLOBIN 10.1 G/DL (13.3-17.7); LYMPHOCYTES # (AUTO) 1.4 X 10^3 (1.0-4.0); LYMPHOCYTES % (AUTO) 14 % (12-44); MEAN CORPUSCULAR HEMOGLOBIN 29 PG (25-34); MEAN CORPUSCULAR HGB CONC 33 G/DL (32-36); MEAN CORPUSCULAR VOLUME 88 FL (80-99); MEAN PLATELET VOLUME 8.5 FL (7.4-10.4); MONOCYTES # (AUTO) 1.4 X 10^3 (0.0-1.0); MONOCYTES % (AUTO) 14 % (0-12); NEUTROPHILS # (AUTO) 7.4 X 10^3 (1.8-7.8); NEUTROPHILS % (AUTO) 72 % (42-75); PLATELET COUNT 206 10^3/uL (130-400); RED CELL DISTRIBUTION WIDTH 15.3 % (10.0-14.5); WHITE BLOOD COUNT 10.2 10^3/uL (4.3-11.0)
--- NOTE | 2019-08-17 15:18 | ED Respiratory ---
General Chief Complaint: Respiratory Problems Stated Complaint: SOA - CONFUSION - FEVER Nursing Triage Note: PT TO RM 3 BY CHANTELL WITH COMPLAINT OF FEVER, SOA, CONFUSION FOR SEVERAL DAYS. Source: patient, spouse Exam Limitations: no limitations History of Present Illness Date Seen by Provider: Aug 17, 2019 Time Seen by Provider: 14:50 Initial Comments Patient presents to ER by private conveyance with his and chief complaint of shortness of breath the past several days as well as confusion and hallucinations per his . He has a history of bipolar and recently had a manic episode. He denies a cough but he's had a fever the past couple days Tmax of 102. No diarrhea constipation bowel movement was normal today. He uses opiates for his chronic back pain. He also has a c-collar as he is scheduled to do surgery a couple months. He was diagnosed with severe cervical spinal stenosis as well as lumbar stenosis and had plans to do surgery but had problems during surgery with the anesthesia induction so they then discovered that he at some point had had a heart attack and put a couple stents and in 2 weeks ago. He was told he had another month or 2 before he can go back for surgery. He is on Plavix. He follows with Elizabeth Escalante, [facility] and neurology and cardiology, Dr. Cunningham in [place]. His remarks that he had a echocardiogram done after the stents placed showing his ejection fraction to be low around 25%. His also notes that he has not had any benzos or opiates today. Allergies and Home Medications Allergies Coded Allergies: No Known Drug Allergies (Unverified , 04/23/19) Home Medications Hydrocodone Bit/Acetaminophen 1 Tab Tab, 1 EACH PO Q6H PRN for PAIN-MODERATE Prescribed by: COBY NASCIMENTO on 04/23/191748 Prednisone 20 Mg Tab, 40 MG PO DAILY Prescribed by: COBY NASCIMENTO on 04/23/191748 Patient Home Medication List Home Medication List Reviewed: Yes Review of Systems Review of Systems Constitutional: chills, fever, malaise, other (body aches) EENTM: No ear discharge, No ear pain Respiratory: No cough, No phlegm; short of breath; No wheezing Cardiovascular: No chest pain; Hx of Intervention; No palpitations; vascular heart diseas Gastrointestinal: No abdominal pain, No constipation, No diarrhea, No nausea Genitourinary: No discharge, No dysuria Musculoskeletal: see HPI, back pain; No joint pain Past Zmsgcwg-Gkbwzf-Dfktpr Hx Patient Social History Alcohol Use: Denies Use Recreational Drug Use: No Smoking Status: Former Smoker Type Used: Pipe 2nd Hand Smoke Exposure: No Recent Foreign Travel: No Contact w/Someone Who Travel: No Recent Infectious Disease Expo: No Recent Hopitalizations: No Seasonal Allergies Seasonal Allergies: No Past Medical History Surgeries: Yes (RIGHT ROTATOR CUFF) Orthopedic Respiratory: No Cardiac: No Neurological: No Genitourinary: No Gastrointestinal: Yes Ulcer Musculoskeletal: Yes Chronic Back Pain Endocrine: Yes Diabetes, Non-Insulin dep HEENT: No Cancer: No Psychosocial: Yes Bipolar Integumentary: No Blood Disorders: No Physical Exam Vital Signs - First Documented 08/17/19 08/17/19 14:58 15:00 Temp 37.9 Pulse 91 Resp 20 B/P (MAP) 83/55 (64) Pulse Ox 96 O2 Delivery Room Air O2 Flow Rate 2.00 Capillary Refill : Less Than 3 Seconds Height: 5'8.00" Weight: 255lbs. oz. 115.859883ru; 32.00 BMI Method:Stated General Appearance: moderate distress, obese Eyes: Bilateral Eye Normal Inspection, Bilateral Eye PERRL, Bilateral Eye EOMI HEENT: PERRL/EOMI, normal ENT inspection, TMs normal, pharynx normal Neck: non-tender, full range of motion, supple Respiratory: chest non-tender, lungs clear, normal breath sounds, no respiratory distress, no accessory muscle use Cardiovascular: normal peripheral pulses, regular rate, rhythm, no JVD, other (2+ pitting edema to the knees bilaterally) Gastrointestinal: normal bowel sounds, non tender, soft Extremities: normal range of motion, non-tender, slow capillary refill Neurologic/Psychiatric: no motor/sensory deficits, alert, normal mood/affect, oriented x 3 Skin: other (excoriated rash on the dorsum of the left foot with some breakdown in the skin and seeping serous, straw-colored fluid. Coccyx has a stage II macerated pressure ulcer approximately 5 x 6 cm) Focused Exam Sepsis Stage: Septic Shock Possible Source: Genitouriary Lactate Level 08/17/19 15:10: Lactic Acid Level 3.33*H 08/17/19 17:00: Lactic Acid Level 2.08*H Time of Focused Exam: 17:56 Respiratory: Lungs Clear, Normal Breath Sounds, No Accessory Muscle Use, No Respiratory Distress Cardiovascular: Regular Rate, Rhythm, Other (bipedal edema) Capillary Refill: Less Than 3 Seconds Peripheral Pulses: 2+ Radial Pulses (R), 2+ Radial Pulses (L) Skin: warm/dry, pallor Lactic Acid Level Laboratory Tests Test 08/17/19 15:10 08/17/19 17:00 Lactic Acid Level 3.33 MMOL/L (0.50-2.00) *H 2.08 MMOL/L (0.50-2.00) *H Within 3hrs of presentation: Admin fluids, Admin 30ml/kg IBW due to BMI>30 (187 #), Admin ABX, Blood cultures prior to ABX's, Focus exam, Lactate level, Vasopressin therapy Procedures/Interventions Lumen: triple (20 cm 7 Lithuanian catheter) Central Line Procedure: betadine prep (chlorhexidine), sterile drapes applied, sterile dressing applied Position: internal jugular (R) Anesthesia: Lidocaine Volume Anesthetic (ccs): 3 Complications: none Post Position: sutured, good blood return, position confirmed w/ CXR Risks, benefits and alternatives were to find the patient and spouse. Patient gave verbal and spouse signed consent. We positioned the patient appropriately using ultrasound guidance in usual sterile approach we draped patient out and airway in the room wore headgear and facemask. Using sterile gloves and sterile gown and removed and ascertain the position of the right IJ was easily accessible using ultrasound. The patient was infiltrated with cc of 1% lidocaine without epinephrine and the overlying skin. We watch the tip of the needle passed through the skin into the right IJ on first attempt and guidewire easily passed on first attempt. Then made a small levy in the skin using the supplied 11 blade scalpel and removed the introducer needle. We then passed the dilator over the guidewire. At no time did he have ectopy on the monitor. The dilator was removed and the central port of the triple lumen catheter was threaded over the guidewire and sutured in place at about 12-13 cm in [address] using the supplied stitch. The Biopatch was placed and then a sterile dressing was placed over the triple-lumen catheter. Patient tolerated the procedure well. Chest x-ray demonstrated the central catheter to be in the superior vena cava wi th the tip just above the right atria. It did not cross the midline and there is no pneumothorax. Suture Size: 5-0 Progress/Results/Core Measures Suspected Sepsis Recent Fever Within 48 Hours: Yes Infection Criteria Present: None New/Unexplained Altered Menta: No Sepsis Screen: No Definite Risk SIRS Temperature: Pulse: 91 Respiratory Rate: 20 Laboratory Tests 08/17/19 15:10: White Blood Count 10.2 Blood Pressure 83 /55 Mean: 64 08/17/19 15:10: Lactic Acid Level 3.33*H 08/17/19 17:00: Lactic Acid Level 2.08*H Laboratory Tests 08/17/19 15:10: Creatinine 1.24, INR Comment 1.0, Platelet Count 206, Total Bilirubin 0.6 Results/Orders Lab Results Laboratory Tests Test 08/17/19 15:10 08/17/19 15:50 08/17/19 17:00 Range/Units White Blood Count 10.2 4.3-11.0 10^3/uL Red Blood Count 3.45 L 4.35-5.85 10^6/uL Hemoglobin 10.1 L 13.3-17.7 G/DL Hematocrit 30 L 40-54 % Mean Corpuscular Volume 88 80-99 FL Mean Corpuscular Hemoglobin 29 25-34 PG Mean Corpuscular Hemoglobin Concent 33 32-36 G/DL Red Cell Distribution Width 15.3 H 10.0-14.5 % Platelet Count 206 130-400 10^3/uL Mean Platelet Volume 8.5 7.4-10.4 FL Neutrophils (%) (Auto) 72 42-75 % Lymphocytes (%) (Auto) 14 12-44 % Monocytes (%) (Auto) 14 H 0-12 % Eosinophils (%) (Auto) 0 0-10 % Basophils (%) (Auto) 0 0-10 % Neutrophils # (Auto) 7.4 1.8-7.8 X 10^3 Lymphocytes # (Auto) 1.4 1.0-4.0 X 10^3 Monocytes # (Auto) 1.4 H 0.0-1.0 X 10^3 Eosinophils # (Auto) 0.0 0.0-0.3 10^3/uL Basophils # (Auto) 0.0 0.0-0.1 10^3/uL Prothrombin Time 14.0 12.2-14.7 SEC INR Comment 1.0 0.8-1.4 Activated Partial Thromboplast Time 41 H 24-35 SEC Sodium Level 137 135-145 MMOL/L Potassium Level 4.0 3.6-5.0 MMOL/L Chloride Level 97 L 98-107 MMOL/L Carbon Dioxide Level 25 21-32 MMOL/L Anion Gap 15 H 5-14 MMOL/L Blood Urea Nitrogen 14 7-18 MG/DL Creatinine 1.24 0.60-1.30 MG/DL Estimat Glomerular Filtration Rate > 60 BUN/Creatinine Ratio 11 Glucose Level 171 H 70-105 MG/DL Lactic Acid Level 3.33 *H 2.08 *H 0.50-2.00 MMOL/L Calcium Level 8.3 L 8.5-10.1 MG/DL Corrected Calcium 8.9 8.5-10.1 MG/DL Total Bilirubin 0.6 0.1-1.0 MG/DL Aspartate Amino Transf (AST/SGOT) 16 5-34 U/L Alanine Aminotransferase (ALT/SGPT) 21 0-55 U/L Alkaline Phosphatase 57 40-136 U/L Troponin I 0.072 H <0.028 NG/ML B-Type Natriuretic Peptide 254.5 H <100.0 PG/ML Total Protein 6.3 L 6.4-8.2 GM/DL Albumin 3.2 3.2-4.5 GM/DL Urine Color YELLOW Urine Clarity CLEAR Urine pH 6 5-9 Urine Specific [place] 1.010 L 1.016-1.022 Urine Protein 2+ H NEGATIVE Urine Glucose (UA) 4+ H NEGATIVE Urine Ketones NEGATIVE NEGATIVE Urine Nitrite POSITIVE H NEGATIVE Urine Bilirubin NEGATIVE NEGATIVE Urine Urobilinogen 4 H NORMAL MG/DL Urine Leukocyte Esterase 2+ H NEGATIVE Urine RBC (Auto) NEGATIVE NEGATIVE Urine RBC NONE /HPF Urine WBC 25-50 H /HPF Urine Squamous Epithelial Cells 5-10 /HPF Urine Crystals NONE /LPF Urine Bacteria FEW H /HPF Urine Casts NONE /LPF Urine Mucus NEGATIVE /LPF Urine Culture Indicated CULTURE PENDING Micro Results Microbiology 08/17/19 Influenza Types A,B Antigen (KE) - Final, Complete My Orders Orders - CARITO SOLORZANO Cbc With Automated Diff (08/17/19 15:08) Comprehensive Metabolic Panel (08/17/19 15:08) Blood Culture (08/17/19 15:08) Sputum Culture (08/17/19 15:08) Urinalysis (08/17/19 15:08) Urine Culture (08/17/19 15:08) Protime With Inr (08/17/19 15:08) Partial Thromboplastin Time (08/17/19 15:08) Chest 1 View, Ap/Pa Only (08/17/19 15:08) Acetaminophen Tablet (Tylenol Tablet) (08/17/19 15:15) Ed Iv/Invasive Line Start (08/17/19 15:08) Ed Iv/Invasive Line Start (08/17/19 15:08) Ekg Tracing (08/17/19 15:08) Troponin I (08/17/19 15:08) Vital Signs Adult Sepsis Patie Q15M (08/17/19 15:08) O2 (08/17/19 15:08) Remove Rings In Anticipation O (08/17/19 15:08) Lactic Acid Analyzer (08/17/19 15:08) Influenza A And B Antigens (08/17/19 15:08) Cefepime Injection (Maxipime Injection) (08/17/19 15:15) Ed Iv/Invasive Line Start (08/17/19 15:08) Ns Iv 500 Ml (Sodium Chloride 0.9%) (08/17/19 15:08) Fentanyl Injection (Sublimaze Injection (08/17/19 15:15) Norepinephrine (Levophed) (08/17/19 15:15) Ns (Ivpb) (Sodium Chloride 0.9%) (08/17/19 15:12) Norepinephrine (Levophed) (08/17/19 15:13) BNP (08/17/19 15:25) Ed Iv/Invasive Line Start (08/17/19 15:27) Ns Iv 1000 Ml (Sodium Chloride 0.9%) (08/17/19 15:27) Ns Iv 1000 Ml (Sodium Chloride 0.9%) (08/17/19 15:27) Lidocaine 2% (Urojet) (Xylocaine Urojet) (08/17/19 15:43) Catheter(Urinary) Insert & Ass 03,15 (08/17/19 15:50) Ekg Tracing (08/17/19 15:50) Lidocaine 2% (Urojet) (Xylocaine Urojet) (08/17/19 15:45) Fentanyl Injection (Sublimaze Injection (08/17/19 18:00) Chest 1 View, Ap/Pa Only (08/17/19 17:54) Medications Given in ED Current Medications Medications Dose Ordered Sig/Niyah Route Start Time Stop Time Status Last Admin Dose Admin Acetaminophen 1,000 mg ONCE PRN PO 08/17/19 15:15 08/17/19 15:28 DC 08/17/19 15:22 1,000 MG Cefepime HCl 1000 mg/Sterile Water 10 ml @ 200 mls/hr ONCE ONCE IV 08/17/19 15:15 08/17/19 15:17 DC 08/17/19 15:21 200 MLS/HR Fentanyl Citrate 25 mcg ONCE ONCE IVP 08/17/19 15:15 08/17/19 15:16 DC 08/17/19 15:21 25 MCG Fentanyl Citrate 50 mcg ONCE ONCE IVP 08/17/19 18:00 08/17/19 18:01 DC 08/17/19 18:07 50 MCG Lidocaine HCl 10 ml ONCE ONCE TOP 08/17/19 15:45 08/17/19 16:06 DC 08/17/19 15:45 10 ML Sodium Chloride 500 ml @ 0 mls/hr Q0M ONCE IV 08/17/19 15:08 08/17/19 15:10 DC 08/17/19 15:20 500 MLS/HR Sodium Chloride 1,000 ml @ 0 mls/hr Q0M ONCE IV 08/17/19 15:27 08/17/19 15:29 DC 08/17/19 15:35 1,000 MLS/HR Vital Signs/I&O 08/17/19 08/17/19 14:58 15:00 Temp 37.9 Pulse 91 Resp 20 B/P (MAP) 83/55 (64) Pulse Ox 96 94 O2 Delivery Room Air Nasal Cannula O2 Flow Rate 2.00 Capillary Refill : Less Than 3 Seconds Blood Pressure Mean: 64 Progress Note #1: Time: 15:18 Progress Note Patient's edematous with subjective shortness of breath oxygen sats in the 92-96 range. He has a temperature 100.2 today. He is hypotensive 81/47. We'll give him a 500 cc fluid bolus while we get a chest x-ray to make sure he is not in florid heart failure. If it's not showing pulmonary edema than we'll plan to give him a full 30 mL/kg bolus. Levophed will be started peripherally. To address his pain give him 25 g of fentanyl and get more as we get closer to controlling his blood pressure. Hallucinations secondary to delirium versus hypoxia/hypotension. Influenza swab and a septic workup. ST changes subtly seen on EKG could be due to ischemia due to hypotension. Adjusted ideal body weight 187 pounds due to the BMI being 32.3. 30 mL/kg fluid bolus given after chest x-ray was reviewed and found to have no pulmonary edema, equal exam does not demonstrate JVD or hepatojugular reflux. Progress Note #2: Time: 15:49 Progress Note After a small amount of Levophed his blood pressure shot up to 135 so we backed off of it. He's working on his first 1500 of 2500 cc of fluid through 2 large bore peripheral IVs. His map has stayed about 67 off Levophed so it was reinitiated low-dose while he is getting his fluid bolus. His oxygen sats stayed in the mid 90s on 2 L by nasal cannula. Plan to repeat an EKG. ECG Initial ECG Impression Date: Aug 17, 2019 Initial ECG Impression Time: 15:12 Initial ECG Rate: 88 Initial ECG Rhythm: Normal Sinus Initial ECG Intervals: Normal Initial ECG Impression: Normal, Nonspecific Changes Comment Anterior leads V1 and V2 have 1 block elevation of the ST segment. The lateral leads V4, V5, V6 have one half to one block of depression of the ST segment. EKG : EKG Time: 16:20 Rate: 95 Rhythm: Normal Sinus Intervals: Normal ECG Comparisson: Unchanged ECG Impression: Normal, Nonspecific Changes Comment Unchanged. Still some ST depression in the lateral leads 1 block or less and [address] elevation in the anterior leads V1 and V2. No clinically significant ST change. Diagnostic Imaging Diagonstic Imaging: Xray Plain Films/CT/US/NM/MRI: chest (1v) Comments NAME: LLUVIA SCHAEFER [facility] REC#: [id number] PT STATUS: REG ER : 1965 PHYSICIAN: CARITO SOLORZANO MD ADMIT DATE: 08/17/19/ER Draft Date of Exam:08/17/19 CHEST 1 VIEW, AP/PA ONLY INDICATION: Fever, shortness of air. COMPARISON: 06/22/2019. EXAMINATION: Single view of the chest was obtained. FINDINGS: The lungs are clear. The heart size and vascularity are normal. There is no effusion or pneumothorax. Rib deformity on the right, posterolaterally and inferiorly, is likely old healed fracture. IMPRESSION: No acute appearing abnormality. Dictated on workstation # [id number] Dict: 08/17/19 1531 Trans: 08/17/19 1535 [facility] [phone] Interpreted by: MELVA ARRIAGA Electronically signed by: Reviewed: Reviewed by Me Plain Films/CT/US/NM/MRI: chest (1v) Comments [facility] [place], [place] NAME: LLUVIA SCHAEFER REC#: [id number] PT STATUS: REG ER : 1965 PHYSICIAN: CARITO SOLORZANO MD ADMIT DATE: 08/17/19/ER Draft Date of Exam:08/17/19 CHEST 1 VIEW, AP/PA ONLY INDICATION: Line placement. EXAMINATION: Frontal chest was obtained at 6:02 p.m. COMPARISON: Same day at 3:25 p.m. FINDINGS: Right IJ line is seen with tip overlying the right brachycephalic vein. There is no pneumothorax. There are chronic appearing increased interstitial markings. There is no consolidation or pleural fluid. IMPRESSION: New right IJ central catheter tip overlies the right brachiocephalic vein. There is no pneumothorax. No other significant change compared to earlier today. Dictated on workstation # [id number] Dict: 08/17/19 1816 Trans: 08/17/19 1820 [facility] [phone] Interpreted by: LUCERO OROZCO MD Electronically signed by: Reviewed: Reviewed by Me Departure Communication (Admissions) Time/Spoke to Admitting Phy: 16:53 Discussed the case with Dr. Jerome and she agrees to admit the patient to the ICU with Dr. Franklin and Dr. Rodriguez involved. Time/Spoke to Consulting Phy: 18:05 Discussed the case with Dr. Franklin as well as EKG changes and plan to trend troponins. Discussed case lab imaging findings with Dr. Rodriguez. He agrees with cefepime and would like to add vancomycin. Impression Primary Impression: UTI (urinary tract infection) Qualified Codes: N30.00 - Acute cystitis without hematuria Additional Impressions: Septic shock Elevated troponin Sacral pressure ulcer Qualified Codes: L89.152 - Pressure ulcer of sacral region, stage 2 Disposition: ADMITTED INPATIENT Condition: Critical Admissions Decision to Admit Reason: Admit from ER (General) Decision to Admit/Date: Aug 17, 2019 Time/Decision to Admit Time: 16:00 Departure-Patient Inst. Referrals: [place] [facility] (PCP) Primary Care Physician ELIAZBETH ESCALANTE (Family) Primary Care Physician CARITO SOLORZANO Aug 17, 2019 15:18
[2019-08-17] MEDS ORDERED: NS IV 1000 ML 1,000 ML IV SCH (15:27)
[2019-08-17] MEDS ORDERED: NS IV 1000 ML 1,000 ML IV ONE (15:27)
[2019-08-17] MEDS: NOREPINEPHRINE 4 MG in NS (IVPB) 250 ML IV SCH (15:27)
--- NOTE | 2019-08-17 15:35 | Diagnostic Imaging Report ---
INDICATION: Fever, shortness of air. COMPARISON: 06/22/2019. EXAMINATION: Single view of the chest was obtained. FINDINGS: The lungs are clear. The heart size and vascularity are normal. There is no effusion or pneumothorax. Rib deformity on the right, posterolaterally and inferiorly, is likely old healed fracture. IMPRESSION: No acute appearing abnormality. Dictated by: Dictated on workstation # [id number]
[2019-08-17 15:36] LABS: ALANINE AMINOTRANSFERASE 21 U/L (0-55); ALBUMIN 3.2 GM/DL (3.2-4.5); ALKALINE PHOSPHATASE 57 U/L (40-136); BILIRUBIN,TOTAL 0.6 MG/DL (0.1-1.0); BUN/CREATININE RATIO 11; CALCIUM 8.3 MG/DL (8.5-10.1); CARBON DIOXIDE 25 MMOL/L (21-32); CHLORIDE 97 MMOL/L (98-107); CREATININE SERUM 1.24 MG/DL (0.60-1.30); GFR ESTIMATED > 60; GLUCOSE 171 MG/DL (70-105); SODIUM 137 MMOL/L (135-145); TOTAL PROTEIN 6.3 GM/DL (6.4-8.2)
[2019-08-17] MEDS ORDERED: LIDOCAINE UROJET 2% GEL 10 ML PKG ONE (15:43)
[2019-08-17] MEDS ORDERED: LIDOCAINE UROJET 2% GEL 10 ML PKG TOP ONE (15:45)
[2019-08-17 16:04] LABS: BILIRUBIN,URINE NEGATIVE (NEGATIVE); CLARITY,URINE CLEAR; COLOR,URINE YELLOW; GLUCOSE, URINE (UA) 4+ (NEGATIVE); KETONES,URINE NEGATIVE (NEGATIVE); LEUKOCYTE ESTERASE ,URINE 2+ (NEGATIVE); NITRITE,URINE POSITIVE (NEGATIVE); PH,URINE 6 (5-9); PROTEIN,URINE 2+ (NEGATIVE); UROBILINOGEN,URINE 4 MG/DL (NORMAL)
[2019-08-17 16:12] LABS: BACTERIA,URINE FEW /HPF; WBC,URINE 25-50 /HPF
--- NOTE | 2019-08-17 18:20 | Diagnostic Imaging Report ---
INDICATION: Line placement. EXAMINATION: Frontal chest was obtained at 6:02 p.m. COMPARISON: Same day at 3:25 p.m. FINDINGS: Right IJ line is seen with tip overlying the right brachycephalic vein. There is no pneumothorax. There are chronic appearing increased interstitial markings. There is no consolidation or pleural fluid. IMPRESSION: New right IJ central catheter tip overlies the right brachiocephalic vein. There is no pneumothorax. No other significant change compared to earlier today. Dictated by: Dictated on workstation # [id number]
--- NOTE | 2019-08-17 19:01 | NUR ---
LLUVIA SCHAEFER admitted to room CU1-1, with an admitting diagnosis of UTI, SEPT[facility], on 08/17/19 from [place] via [facility], accompanied by ER STAFF AND PT'S . LLUVIA SCHAEFER introduced to surroundings, call light, bed controls, phone, TV, temperature control, lights, meal times, smoking policy, visitor policy, side rail policy, bathrooms and showers. Patient Rights given to patient in the handbook. LLUVIA SCHAEFER verbalizes understanding that [facility] is not responsible for the loss or damage to any personal effects or valuables that are kept in the patients possession during their hospitalization.
[2019-08-17 19:15] VITALS: BP 95/60
[2019-08-17] MEDS ORDERED: ONDANSETRON 4 MG/2 ML (SDV) Z0FRAN IV PRN (19:30)
[2019-08-17] MEDS ORDERED: LORazepam INJ 2 MG/ML (ATIVAN) VIAL IV PRN (19:30)
[2019-08-17] MEDS ORDERED: fentaNYL INJECTION 100 MCG/2 ML AMP INJ PRN (19:30)
[2019-08-17 20:00] VITALS: BP 105/63
[2019-08-17] MEDS ORDERED: VANCOMYCIN 2000 MG/NS 500 ML IVPB IV SCH ×4 (20:00)
[2019-08-17] MEDS: NS IV 1000 ML 1,000 ML IV SCH (20:17)
[2019-08-17] MEDS: EPINEPHrine 1 MG INJECTION 2 MG in NS (IVPB) 248 ML IV SCH ×2 (20:49→22:45)
[2019-08-17] MEDS: PREGABALIN 150 MG (LYRICA) CAPSULE PO SCH (20:49)
[2019-08-17] MEDS: CEFEPIME 1,000 MG/SWFI 10 ML IV PUSH IV SCH ×2 (20:49)
[2019-08-17] MEDS: DIVALPROEX 500 MG DELAYED RELEASE (DEPAKOTE) TAB PO SCH (20:49)
[2019-08-17] MEDS: NovoLOG/HumaLOG RANGE A SC SCH (20:54)
[2019-08-17 21:00] VITALS: BP 118/68
[2019-08-17] MEDS ORDERED: VANCOMYCIN 1000 MG/VIAL ONE (21:50)
[2019-08-17] MEDS ORDERED: NS IV 500 ML 500 ML ONE (21:51)
[2019-08-17 22:00] VITALS: BP 109/65
--- NOTE | 2019-08-17 22:39 | NUR ---
RECEIVED PHONE CALL FROM PT'S DAUGHTER (WALKER), PT'S DAUGHTER PROVIDED CORRECT PASSWORD. PT WAS WANTING A BRIEF UPDATE ON PT, THIS RN PROVIDED AN UPDATE, ANSWERED ALL QUESTIONS AND TOLD PT'S DAUGHTER TO FEEL FREE TO CALL BACK WITH ANY OTHER QUESTIONS. PT'S DAUGHTER THANKFUL FOR UPDATE.
[2019-08-17 23:00] VITALS: BP 87/58
[2019-08-18] VITALS (23 sets, daily range): BP systolic 100–137; BP diastolic 57–114
[2019-08-18] MEDS ORDERED: NOREPINEPHRINE 4 MG/4 ML (LEVOPHED) AMP IV ONE (01:23)
[2019-08-18] MEDS ORDERED: NS (IVPB) 250 ML ONE (01:23)
[2019-08-18] MEDS: EPINEPHrine 1 MG INJECTION 2 MG in NS (IVPB) 248 ML IV SCH ×7 (02:22→18:56)
[2019-08-18] MEDS: NS IV 1000 ML 1,000 ML IV SCH (02:30)
[2019-08-18] MEDS: CEFEPIME 1,000 MG/SWFI 10 ML IV PUSH IV SCH ×8 (02:30→21:40)
[2019-08-18] MEDS: NOREPINEPHRINE 4 MG in NS (IVPB) 250 ML IV SCH (02:42)
[2019-08-18 03:06] LABS: BASOPHILS % (AUTO) 0 % (0-10); EOSINOPHILS # (AUTO) 0.1 10^3/uL (0.0-0.3); EOSINOPHILS % (AUTO) 1 % (0-10); HEMATOCRIT 26 % (40-54); HEMOGLOBIN 8.7 G/DL (13.3-17.7); LYMPHOCYTES % (AUTO) 12 % (12-44); MEAN CORPUSCULAR HEMOGLOBIN 29 PG (25-34); MEAN CORPUSCULAR HGB CONC 33 G/DL (32-36); MEAN CORPUSCULAR VOLUME 89 FL (80-99); MEAN PLATELET VOLUME 8.5 FL (7.4-10.4); MONOCYTES # (AUTO) 1.4 X 10^3 (0.0-1.0); MONOCYTES % (AUTO) 18 % (0-12); NEUTROPHILS # (AUTO) 5.4 X 10^3 (1.8-7.8); NEUTROPHILS % (AUTO) 69 % (42-75); PLATELET COUNT 183 10^3/uL (130-400); RED CELL DISTRIBUTION WIDTH 15.3 % (10.0-14.5); WHITE BLOOD COUNT 7.8 10^3/uL (4.3-11.0)
[2019-08-18 03:22] LABS: BUN/CREATININE RATIO 15; CALCIUM 7.6 MG/DL (8.5-10.1); CARBON DIOXIDE 26 MMOL/L (21-32); CHLORIDE 106 MMOL/L (98-107); GFR ESTIMATED > 60; GLUCOSE 142 MG/DL (70-105); MAGNESIUM 1.7 MG/DL (1.6-2.4); PHOSPHORUS 3.2 MG/DL (2.3-4.7); POTASSIUM 3.7 MMOL/L (3.6-5.0); SODIUM 140 MMOL/L (135-145)
[2019-08-18] MEDS: MAGNESIUM 1 GM/100 ML IVPB 100 ML IV SCH ×2 (03:47→05:00)
--- NOTE | 2019-08-18 05:18 | Pulmonary Consultation ---
History of Present Illness History of Present Illness Date of Consultation 08/18/19 05:13 Time Seen by Provider: 06:30 Date of Admission History of Present Illness 53yo with hx of chronic pain, lumbar/cervical stenosis s/p recent surgery, CAD with recent stent placement, bipolar presented to ED secondary to worsening SOB, fever 102, confusion, and hallucinations. He denies productive cough, diarrhea, abdominal pain, MONAE. PT is still requiring Levophed for hypotension. I am consulted for ICU mangement. Allergies and Home Medications Allergies Coded Allergies: No Known Drug Allergies (Unverified , 04/23/19) Home Medications Hydrocodone Bit/Acetaminophen 1 Tab Tab, 1 EACH PO Q6H PRN for PAIN-MODERATE Prescribed by: COBY NASCIMENTO on 04/23/191748 Prednisone 20 Mg Tab, 40 MG PO DAILY Prescribed by: COBY NASCIMENTO on 04/23/191748 Past Uajqydh-Wdwahm-Xfrucj Hx Patient Social History Alcohol Use: Denies Use Recreational Drug Use: No Smoking Status: Former Smoker Type Used: Pipe 2nd Hand Smoke Exposure: No Recent Foreign Travel: No Contact w/Someone Who Travel: No Recent Infectious Disease Expo: No Recent Hopitalizations: No Physical Abuse: No Sexual Abuse: No Mistreated: No Fear: No Immunizations Up To Date Date of Pneumonia Vaccine: Aug 17, 2015 Date of Influenza Vaccine: Aug 17, 2017 Seasonal Allergies Seasonal Allergies: No Past Medical History Surgeries: Yes (RIGHT ROTATOR CUFF) Orthopedic Respiratory: No Cardiac: No Neurological: No Genitourinary: No Gastrointestinal: Yes Ulcer Musculoskeletal: Yes Chronic Back Pain Endocrine: Yes Diabetes, Non-Insulin dep HEENT: No Cancer: No Psychosocial: Yes Bipolar Integumentary: No Blood Disorders: No Family Medical History Cardiovascular disease G8 SISTER Diabetes mellitus G8 SISTER Review of Systems Time Seen by Provider: 06:39 Constitutional: Fever, Chills, Weakness, Malaise Eyes: No: Pain, Vision change, Conjunctivae inflammation, Eyelid inflammation, Other, Redness ENT: No: Ear pain, Ear discharge, Nose pain, Nose discharge, Nose congestion, Mouth pain, Mouth swelling, Throat pain, Throat swelling, Other Respiratory: Shortness of breath; No: Cough, Dry, SOB with excertion, Wheezing, Hemoptysis, Pleuritic Pain, Sputum, Wheezing, Other Cardiovascular: No: Chest Pain, Palpitations, Orthopnea, Paroxysmal Noc. Dyspnea, Edema, Lt Headedness, Other Neurological: Weakness, Incoordination, Confusion Sepsis Event Evaluation Height, Weight, BMI Height: 5'8.00" Weight: 255lbs. oz. 115.833087jl; 32.00 BMI Method:Stated Exam Exam Vital Signs Date Time Temp Pulse Resp B/P (MAP) Pulse Ox O2 Delivery O2 Flow Rate FiO2 08/18/19 05:00 90 19 110/63 (79) 96 Nasal Cannula 2.00 08/18/19 04:00 38.0 08/18/19 04:00 91 21 106/67 (80) 98 Nasal Cannula 2.00 08/18/19 04:00 Room Air 08/18/19 03:00 92 16 120/73 (89) 98 Nasal Cannula 2.00 08/18/19 02:00 91 22 111/65 (80) 97 Nasal Cannula 2.00 08/18/19 01:03 92 08/18/19 01:00 94 15 128/74 (92) 100 Nasal Cannula 2.00 08/18/19 00:00 87 19 129/71 (90) 99 Nasal Cannula 2.00 08/18/19 00:00 37.4 08/17/19 23:53 Room Air 08/17/19 23:00 86 18 87/58 (68) 98 Nasal Cannula 2.00 08/17/19 22:00 92 17 109/65 (80) 95 Nasal Cannula 2.00 08/17/19 22:00 37.2 08/17/19 21:00 87 9 118/68 (85) 97 Nasal Cannula 2.00 08/17/19 20:00 Room Air 08/17/19 20:00 90 17 105/63 (77) 95 Nasal Cannula 2.00 08/17/19 19:15 37.3 93 16 95/60 (72) 96 Nasal Cannula 2.00 08/17/19 19:08 93 08/17/19 18:55 93 17 100/69 94 Nasal Cannula 2.00 08/17/19 15:00 94 Nasal Cannula 2.00 08/17/19 14:58 37.9 91 20 83/55 (64) 96 Room Air I & O 08/18/19 07:00 Intake Total 3624 ml Output Total 2125 ml Balance 1499 ml Height & Weight Height: 5'8.00" Weight: 255lbs. oz. 115.164360fb; 32.00 BMI Method:Stated General Appearance: Anxious, Chronically ill, Mild Distress, Obese HEENT: PERRL/EOMI, Normal ENT Inspection, Pharynx Normal Neck: Full Range of Motion, Non Tender Respiratory: No Accessory Muscle Use, No Respiratory Distress, Decreased Breath Sounds Cardiovascular: Regular Rate, Rhythm, Other (bipedal edema) Capillary Refill: Less Than 3 Seconds Peripheral Pulses: 2+ Radial Pulses (R), 2+ Radial Pulses (L) Gastrointestinal: normal bowel sounds, non tender, soft Extremity: Normal Capillary Refill, Normal Inspection Neurologic/Psychiatric: Alert, Oriented x3 Skin: Normal Color, Warm/Dry Lymphatic: No Adenopathy Results Lab Laboratory Tests 08/17/19 15:10 08/18/19 02:52 Assessment/Plan Assessment/Plan UTI with severe sepsis and septic shock -Continue Cefepime, Vanco -Await dunaway cultures -Start Solucortef -Wean levophed as tolerated -Check echocardiogram Anemia -Start protonix -Check Occult stool -repeat labs at 1500 CAD with elevated troponin -Cardiology consulted Sacral pressure ulcer stage II -Wound care NAS MALDONADO DO Aug 18, 2019 05:18
[2019-08-18] MEDS ORDERED: POTASSIUM CHLORIDE INJ 20 MEQ in NS IV 1000 ML 1,000 ML IV SCH (05:23)
[2019-08-18] MEDS ORDERED: NS W/KCL 20 MEQ/L 1,000 ML IV ONE (05:31)
[2019-08-18] MEDS: NovoLOG/HumaLOG RANGE A SC SCH ×4 (05:42→22:29)
[2019-08-18] MEDS ORDERED: HYDROCORTISONE 100 MG/2 ML (Solu-CORTEF) VIAL ONE (05:47)
[2019-08-18] MEDS: HYDROCORTISONE 100 MG/2 ML (Solu-CORTEF) VIAL IV SCH ×3 (05:52→22:30)
[2019-08-18] MEDS ORDERED: KCL 20 MEQ TAB (K-DUR) PO SCH (06:00)
[2019-08-18] MEDS ORDERED: POTASSIUM CL 10MEQ/50ML IVPB 50 ML IV SCH (06:00)
[2019-08-18] MEDS ORDERED: MAGNESIUM 1 GM/100 ML IVPB 100 ML IV SCH (06:00)
--- NOTE | 2019-08-18 07:29 | Diagnostic Imaging Report ---
INDICATION: Dyspnea. COMPARISON: 08/17/2019 FINDINGS: Single frontal view of the chest demonstrates normal heart size and pulmonary vascularity. The lungs are well aerated and clear. No large pleural effusion or pneumothorax is seen. The visualized osseous structures show no acute abnormalities. Right internal jugular central venous catheter is again seen with tip in the high SVC. IMPRESSION: 1. Essentially stable exam of the chest. Dictated by: Dictated on workstation # [id number]
[2019-08-18] MEDS: NS W/KCL 20 MEQ/L 1,000 ML IV SCH ×3 (07:45→20:00)
--- NOTE | 2019-08-18 08:25 | History & Physical-Hospitalist ---
[facility] 08/18/19 0825: History of Present Illness HPI/Chief Complaint Pt is a 53yo male who presented to the ER with SOA and fever that started 3 days ago. He was admitted to the ICU with an UTI and septic shock. He is accompanied by his who states he has been tired/fatigued for about 1 month that is also associated with lower extremity swelling. He was scheduled for a surgery for cervical stenosis a month ago and during the work up for the procedure it was found he had had previous VT that the patient was unaware had occurred. He was evaluated at [facility] and 1 stent was placed according to the patients , but there were some other arteries that they could not stent. He has bilateral pedal edema with dry cracking skin. The left foot has some open wounds and he states that the left foot is tender to the touch. The pt states he does have some abdominal pain in LLQ and RLQ that is described as an aching pain. He reports having decreased urine prior to coming to the hospital. He was very confused and hallucinating when he arrived to the hospital, but reports he is not having the hallucinations anymore and appears less confused. He has a history of Bipolar for which he takes Zoloft, Depakote, and recently started Vraylar about 1 month ago. Source: patient, family Exam Limitations: no limitations Date Seen 08/18/19 Time Seen by a Provider: 07:48 Attending Physician Amanda Jeffries DO PCP [facility] Referring Physician Date of Admission Aug 17, 2019 at 18:00 Home Medications & Allergies Home Medications Reviewed patient Home Medication Reconciliation performed by pharmacy medication reconciliations environmental services technician and/or nursing. Patients Allergies have been reviewed. Allergies Allergies Coded Allergies No Known Drug Allergies (Unverified04/23/19) Past Bealpge-Cjbupj-Romxhz Hx Patient Social History Marrital Status: Alcohol Use: Denies Use Recreational Drug Use: No Smoking Status: Former Smoker Type Used: Pipe 2nd Hand Smoke Exposure: No Recent Foreign Travel: No Contact w/other who traveled: No Recent Hopitalizations: No Recent Infectious Disease Expo: No Immunizations Up To Date Date of Pneumonia Vaccine: Aug 17, 2015 Date of Influenza Vaccine: Aug 17, 2017 Seasonal Allergies Seasonal Allergies: No Past Medical History Surgeries: Orthopedic Gastrointestinal: Ulcer Musculoskeletal: Chronic Back Pain Endocrine: Diabetes, Non-Insulin dep Psychosocial: Bipolar History of Blood Disorders: No Family History Cardiovascular disease G8 SISTER Diabetes mellitus G8 SISTER Review of Systems Constitutional: chills; No dizziness; fever EENTM: No blurred vision, No eye pain Respiratory: No cough; short of breath Gastrointestinal: RLQ (Aching pain), LLQ (Aching Pain), abdominal pain (LLQ, RLQ); No constipation, No diarrhea, No nausea, No vomiting Genitourinary: frequency (Prior to admission, currently on levy catheter) Musculoskeletal: no symptoms reported Skin: change in color (Redness, scaling right foot), dryness (Biateral lower extremity) Psychiatric/Neurological: Denies Headache, Denies Numbness; Paresthesia (Bilateral finger tips), Tingling (Bilateral finger tips) Physical Exam Physical Exam Vital Signs Vital Signs - First Documented 08/17/19 08/17/19 14:58 15:00 Temp 37.9 Pulse 91 Resp 20 B/P (MAP) 83/55 (64) Pulse Ox 96 O2 Delivery Room Air O2 Flow Rate 2.00 Capillary Refill : Less Than 3 Seconds Height, Weight, BMI Height: 5'8.00" Weight: 255lbs. oz. 115.717727ly; 32.00 BMI Method:Stated General Appearance: WD/WN, Mild Distress Neck: Non Tender; No Carotid Bruit Respiratory: No Chest Non Tender (Sharp tenderness to palpation over left ribs 2-3 midclavicular line ); Lungs Clear, Normal Breath Sounds, No Respiratory Distress Cardiovascular: Regular Rate, Rhythm; No No Edema (Bilateral pedal edema); No Murmur, Normal Peripheral Pulses Gastrointestinal: Normal Bowel Sounds, No Pulsatile Mass, Tenderness (LLQ and RLQ) Back: No CVA Tenderness, No Vertebral Tenderness Extremity: No Normal Inspection (Left foot erythema, cracking, lesions), No Non Tender (Left comber tender); No Calf Tenderness, Pedal Edema Neurologic/Psychiatric: Alert, Oriented x3, No Motor/Sensory Deficits, Normal Mood/Affect Skin: Normal Color, Other (Bilateral foot dryness) Results Results/Procedures Labs Laboratory Tests 08/17/19 15:10 08/18/19 02:52 Patient resulted labs reviewed. Assessment/Plan Admission Diagnosis UTI, Septic Shock, CHF Admission Status: Inpatient Order (span 2 midnights) Reason for Inpatient Admission: Pt has septic shock in the prescence of heart failure and a UTI requireing antibiotics and consultation from cardiology. He had an initially concerning ECG in the emergency department along with elevated tropinins and BNP. Assessment and Plan Assessment: UTI Spetic Shock Confusion CHF Previous VT with stent placement Bipolar Plan: Continue antibiotics Consulted cardiology for CHF and VT assessment Continue Depakote, Clinical Quality Measures DVT/VTE Risk/Contraindication: Risk Factor Score Per Nursin RFS Level Per Nursing on Admit: 4+=Very High AMANDA JEFFRIES 08/18/192041: History of Present Illness HPI/Chief Complaint CC: Septic shock due to UTI HPI: This is a 53yoWM [facility] pt who resides in a wheel chair from a Cauda Equina syndrome recently due to spinal stenosis who usually doctors at [place] who presented to the ER with Hypotension and lethargy found to be in septic shock from UTI systolic BP of 70 requiring aggressive IV fluid resuscitation, central line placement, pressor therapy, and intensive care management, He recently had a stent placed after pre-op evaluation for spine surgery revealed abnormality and follow up sees to have ejection fraction of 30%. He continues to have chronic lower extremity edema, He has a history of bipolar disorder and was hallucinating last night but that is much improved. He does smoke pipes, doesn't drink alcohol, and uses a CPAP machine and he is a retired [employer] of 20 years, and he is . At this current time pt is doing better, he is up in a chair and the nurse is changing his central line dressing. Past Slivbhy-Aolqha-Yfkqxh Hx Past Med/Social Hx: Reviewed Nursing Past Med/Soc Hx, Reviewed and Corrections made Patient Social History Employed/Student: retired Smoking Status: Former Smoker Family History Cardiovascular disease G8 SISTER Diabetes mellitus G8 SISTER Physical Exam Physical Exam General Appearance: No Apparent Distress, WD/WN, Anxious, Chronically ill Respiratory: Lungs Clear Cardiovascular: Regular Rate, Rhythm Extremity: Pedal Edema Neurologic/Psychiatric: Alert, Oriented x3, No Motor/Sensory Deficits, Normal Mood/Affect, de icer finisher II-XII Norm as Tested Assessment/Plan Admission Diagnosis Assessment: Septic shock UTI Recent CAD stent C-spine stenosis s/p cauda equina syndrome in the past DAISY on CPAP Bipolar CHF Cardiomyopathy Plan: Aggressive treatment Cardiology consultation and pulmonary consultation are appreciated Admission Status: Inpatient Order (span 2 midnights) Reason for Inpatient Admission: Septic shock will require 6 days inpatient Diagnosis/Problems Diagnosis/Problems (1) Septic shock Status: Acute (2) UTI (urinary tract infection) Status: Acute Qualifiers: Urinary tract infection type: acute cystitis Hematuria presence: without hematuria Qualified Codes: N30.00 - Acute cystitis without hematuria (3) Elevated troponin Status: Acute (4) Sacral pressure ulcer Status: Acute Qualifiers: Pressure injury stage: stage 2 Qualified Codes: L89.152 - Pressure ulcer of sacral region, stage 2 (5) Central cord syndrome Status: Acute (6) CHF (congestive heart failure) (7) CAD (coronary artery disease) (8) Delirium (9) Bipolar disorder (10) DAISY on CPAP (11) Edema (12) Former smoker (13) Wheelchair bound Supervisory-Addendum Brief Verification & Attestation Participated in pt care: history, MDM, physical Personally performed: exam, history, MDM, supervision of care Care discussed with: Medical Student Procedures: n/a Results interpretation: Verified all documentation Verification and Attestation of Medical Student E/M Service A medical student performed and documented this service in my presence. I reviewed and verified all information documented by the medical student and made modifications to such information, when appropriate. I personally performed the physical exam and medical decision making. Amanda Jeffries, Aug 18, 2019,20:42 [facility] Aug 18, 2019 08:25 AMANDA JEFFRIES DO Aug 18, 2019 20:42
[2019-08-18] MEDS: VANCOMYCIN 1500 MG/NS 500 ML IVPB IV SCH ×4 (08:31→20:23)
[2019-08-18] MEDS: DIVALPROEX 500 MG DELAYED RELEASE (DEPAKOTE) TAB PO SCH ×2 (08:31→22:29)
[2019-08-18] MEDS: SERTRALINE 100 MG (ZOLOFT) TAB PO SCH (08:31)
[2019-08-18] MEDS: PANTOPRAZOLE 40 MG (PROTONIX) VIAL IV SCH ×2 (08:31→22:30)
[2019-08-18] MEDS: CLOPIDOGREL 75 MG (PLAVIX) TABLET PO SCH (08:32)
[2019-08-18] MEDS: ASPIRIN 81 MG CHEW (CHILDREN'S ASA) PO SCH ×2 (08:32→09:02)
[2019-08-18] MEDS: PREGABALIN 150 MG (LYRICA) CAPSULE PO SCH ×2 (08:32→22:29)
[2019-08-18] MEDS: ENOXAPARIN 40 MG/0.4 ML (LOVENOX) SYR SC SCH (08:33)
--- NOTE | 2019-08-18 08:41 | Consultation-Cardiology ---
HPI-Cardiology Cardiology Consultation Date of Consultation 08/18/19 Date of Admission Time Seen by Provider: 08:34 Indication: Congestive heart failure HPI 53 years old gentleman with history of bipolar disorder, coronary artery disease, according to the he had multivessel disease some of it was inoperable, had a stent placed last month in [facility], was in his usual state of health at home. To have fever, confusion. Came into the emergency room and was admitted for sepsis. He denied any chest pain. No palpitation. No syncope or near syncopal episodes. Noted to have slight elevation in troponin level. Home Medications & Allergies Allergies: Coded Allergies: No Known Drug Allergies (Unverified , 04/23/19) Home Medication List Reviewed: Yes MZA-Xufhng-Nlmnjc Hx Patient Social History Marital Status: Employed/Student: retired Alcohol Use: Denies Use Recreational Drug Use: No Smoking Status: Former Smoker Type Used: Pipe 2nd Hand Smoke Exposure: No Recent Foreign Travel: No Recent Infectious Disease Expo: No Recent Hopitalizations: No Immunizations Up To Date Date of Pneumonia Vaccine: Aug 17, 2015 Date of Influenza Vaccine: Aug 17, 2017 Past Medical History Discussed below Family Medical History Family History: Cardiovascular disease G8 SISTER Diabetes mellitus G8 SISTER Review of Systems-General Review of Systems Constitutional: see HPI, chills, fever, malaise, other (body aches) EENTM: see HPI; No ear discharge, No ear pain Respiratory: see HPI; No cough, No phlegm; short of breath; No wheezing Cardiovascular: see HPI; No chest pain; edema, Hx of Intervention; No palpitations; vascular heart diseas Gastrointestinal: see HPI; No abdominal pain, No constipation, No diarrhea, No nausea Genitourinary: see HPI; No discharge, No dysuria Musculoskeletal: see HPI, back pain; No joint pain; muscle weakness, neck pain Skin: see HPI Psychiatric/Neurological: Depressed, Emotional Problems Reviewed Test Results Reviewed Test Results Lab Laboratory Tests Test 08/17/19 15:10 08/17/19 15:50 08/17/19 17:00 08/18/19 02:52 Range/Units White Blood Count 10.2 7.8 4.3-11.0 10^3/uL Red Blood Count 3.45 L 2.97 L 4.35-5.85 10^6/uL Hemoglobin 10.1 L 8.7 L 13.3-17.7 G/DL Hematocrit 30 L 26 L 40-54 % Mean Corpuscular Volume 88 89 80-99 FL Mean Corpuscular Hemoglobin 29 29 25-34 PG Mean Corpuscular Hemoglobin Concent 33 33 32-36 G/DL Red Cell Distribution Width 15.3 H 15.3 H 10.0-14.5 % Platelet Count 206 183 130-400 10^3/uL Mean Platelet Volume 8.5 8.5 7.4-10.4 FL Neutrophils (%) (Auto) 72 69 42-75 % Lymphocytes (%) (Auto) 14 12 12-44 % Monocytes (%) (Auto) 14 H 18 H 0-12 % Eosinophils (%) (Auto) 0 1 0-10 % Basophils (%) (Auto) 0 0 0-10 % Neutrophils # (Auto) 7.4 5.4 1.8-7.8 X 10^3 Lymphocytes # (Auto) 1.4 1.0 1.0-4.0 X 10^3 Monocytes # (Auto) 1.4 H 1.4 H 0.0-1.0 X 10^3 Eosinophils # (Auto) 0.0 0.1 0.0-0.3 10^3/uL Basophils # (Auto) 0.0 0.0 0.0-0.1 10^3/uL Prothrombin Time 14.0 12.2-14.7 SEC INR Comment 1.0 0.8-1.4 Activated Partial Thromboplast Time 41 H 24-35 SEC Sodium Level 137 140 135-145 MMOL/L Potassium Level 4.0 3.7 3.6-5.0 MMOL/L Chloride Level 97 L 106 98-107 MMOL/L Carbon Dioxide Level 25 26 21-32 MMOL/L Anion Gap 15 H 8 5-14 MMOL/L Blood Urea Nitrogen 14 12 7-18 MG/DL Creatinine 1.24 0.80 0.60-1.30 MG/DL Estimat Glomerular Filtration Rate > 60 > 60 BUN/Creatinine Ratio 11 15 Glucose Level 171 H 142 H 70-105 MG/DL Lactic Acid Level 3.33 *H 2.08 *H 0.61 0.50-2.00 MMOL/L Calcium Level 8.3 L 7.6 L 8.5-10.1 MG/DL Corrected Calcium 8.9 8.5-10.1 MG/DL Total Bilirubin 0.6 0.1-1.0 MG/DL Aspartate Amino Transf (AST/SGOT) 16 5-34 U/L Alanine Aminotransferase (ALT/SGPT) 21 0-55 U/L Alkaline Phosphatase 57 40-136 U/L Troponin I 0.072 H 0.113 H <0.028 NG/ML B-Type Natriuretic Peptide 254.5 H <100.0 PG/ML Total Protein 6.3 L 6.4-8.2 GM/DL Albumin 3.2 3.2-4.5 GM/DL Urine Color YELLOW Urine Clarity CLEAR Urine pH 6 5-9 Urine Specific [place] 1.010 L 1.016-1.022 Urine Protein 2+ H NEGATIVE Urine Glucose (UA) 4+ H NEGATIVE Urine Ketones NEGATIVE NEGATIVE Urine Nitrite POSITIVE H NEGATIVE Urine Bilirubin NEGATIVE NEGATIVE Urine Urobilinogen 4 H NORMAL MG/DL Urine Leukocyte Esterase 2+ H NEGATIVE Urine RBC (Auto) NEGATIVE NEGATIVE Urine RBC NONE /HPF Urine WBC 25-50 H /HPF Urine Squamous Epithelial Cells 5-10 /HPF Urine Crystals NONE /LPF Urine Bacteria FEW H /HPF Urine Casts NONE /LPF Urine Mucus NEGATIVE /LPF Urine Culture Indicated CULTURE PENDING Phosphorus Level 3.2 2.3-4.7 MG/DL Magnesium Level 1.7 1.6-2.4 MG/DL Physical Exam Physical Exam Vital Signs Vital Signs - First Documented 08/17/19 08/17/19 14:58 15:00 Temp 37.9 Pulse 91 Resp 20 B/P (MAP) 83/55 (64) Pulse Ox 96 O2 Delivery Room Air O2 Flow Rate 2.00 Capillary Refill : Less Than 3 Seconds Height, Weight, BMI Height: 5'8.00" Weight: 255lbs. oz. 115.759719xi; 32.00 BMI Method:Stated General Appearance: Anxious, Chronically ill, Mild Distress, Obese Eyes: Bilateral Eye Normal Inspection, Bilateral Eye PERRL, Bilateral Eye EOMI HEENT: PERRL/EOMI, Normal ENT Inspection, Pharynx Normal Neck: Non Tender, Other (Tenderness and the neck) Respiratory: No Accessory Muscle Use, No Respiratory Distress, Decreased Breath Sounds Cardiovascular: Regular Rate, Rhythm, Systolic Murmur, Other (bipedal edema) Gastrointestinal: Normal Bowel Sounds, No Organomegaly, No Pulsatile Mass, Non Tender, Soft Back: Normal Inspection, Other (Back pain) Extremity: Normal Capillary Refill, Normal Inspection, Pedal Edema Neurologic/Psychiatric: Alert, Oriented x3 Skin: Normal Color, Warm/Dry Lymphatic: No Adenopathy A/P-Cardiology Admission Diagnosis Sepsis UTI Non-ST elevation myocardial infarction Congestive heart failure, chronic compensated left ventricular systolic dysfunction, ischemic cardiomyopathy Assessment/Plan Sepsis, UTI, receiving antibiotic and managed by primary care team Congestive heart failure, chronic compensated left ventricular systolic d ysfunction, ischemic cardiomyopathy, ejection fraction 25-30 percent, continue with medical therapy and will add LifeVest, discussed with the and the patient regarding the possibility of ICD in the future Coronary artery disease, family reported that he had a cardiac catheterization with Dr. Lovelace in July 2019 had a stent to one artery and he had other diseased arteries that were in operable treated medically. Continue to monitor Elevated troponin level, non-ST elevation myocardial infarction, type II AR secondary to hypotension and extensive coronary artery disease, continue conservative management Anemia, drop in H&H, continue to monitor closely and evaluate stool for occult blood, patient will need to be on aspirin and Plavix at this point, he had a recent stent Hyperlipidemia, maintained on Lipitor 80 mg daily C-spine stenosis, patient was scheduled for surgery, during anesthesia induction has severe hypotension, surgery was canceled and patient was taken to the catheter lab and had a stent done as described above, still having back and neck pain Bipolar disorder, confusion, chronic, managed by primary care team Clinical Quality Measures DVT/VTE Risk/Contraindication: Risk Factor Score Per Nursin RFS Level Per Nursing on Admit: 4+=Very High ALINA GREGG MD Aug 18, 2019 08:41
[2019-08-18] MEDS ORDERED: CARV6.252 PO (08:53)
[2019-08-18] MEDS ORDERED: NITR0.4T42 SL (08:53)
[2019-08-18] MEDS ORDERED: PANT40TA3 PO (08:53)
[2019-08-18] MEDS ORDERED: ASPI-983 PO (08:53)
[2019-08-18] MEDS ORDERED: CLOP75TA28 PO (08:53)
[2019-08-18] MEDS ORDERED: LOSA25TA41 PO (08:53)
[2019-08-18] MEDS ORDERED: PATIENT'S OWN MED (RX USE ONLY) PO SCH (09:00)
[2019-08-18] MEDS ORDERED: ATOR40TA70 PO (09:57)
[2019-08-18] MEDS ORDERED: CARI1.5C PO (09:57)
[2019-08-18] MEDS ORDERED: HYDR-3820 PO (09:57)
[2019-08-18] MEDS ORDERED: SERT100T8 PO (09:57)
[2019-08-18] MEDS ORDERED: DIAZ5TAB3 PO (09:57)
[2019-08-18] MEDS ORDERED: CYCL10TA9 PO (09:57)
[2019-08-18] MEDS ORDERED: METF-478 PO (09:57)
[2019-08-18] MEDS ORDERED: DIVA500T PO (10:02)
[2019-08-18] MEDS ORDERED: DAPA10TA PO (10:03)
[2019-08-18] MEDS ORDERED: ASPI-999 PO (10:20)
[2019-08-18] MEDS ORDERED: SILD100T PO (10:20)
[2019-08-18] MEDS ORDERED: PREG150C PO (10:20)
--- NOTE | 2019-08-18 10:20 | NUR ---
SPOKE WITH THE PATIENTS REGARDING MEDICATIONS. SHE HAD A LIST WITH HER FROM [facility] THAT SHE STATES IS UP TO DATE. WE WENT OVER THAT LIST AND I COMPARED IT WITH THE EXT MED HX WELL A LIST THAT WAS FAXED OVER FROM [facility]. DEPAKOTE WAS FILLED 05-26-19 DR 500MG TID FOR 90 DAYS- STATES HE ONLY TAKES THIS BID. LYRICA, FARXIGA, AND VRAYLAR HAVE NOT BEEN FILLED RECENTLY, STATES SHE RECEIVES THEM FROM [facility] OR REPOSITORY MEDS. HE HAS NOT FILLED VIAGRA RECENTLY AND SHE STATES HE HAS NOT TAKE IT FOR AWHILE BUT DOES HAVE IT ON HAND IF NEEDED.
--- NOTE | 2019-08-18 10:20 | Physical Therapy Evaluation ---
PT Evaluation-General Medical Diagnosis Admission Date Aug 17, 2019 at 18:00 Medical Diagnosis: UTI/septic shock/elevated troponin Onset Date: Aug 17, 2019 Therapy Diagnosis Therapy Diagnosis: debility/weakness Height/Weight Height (Feet): 5 Height (Inches): 8.00 Weight (Pounds): 255 Precautions Precautions/Isolations: Fall Prevention, Standard Precautions, Pressure Ulcer Weight Bear Status Right Lower Extremity: Right Weight Bearing/Tolerated Left Lower Extremity: Left Weight Bearing/Tolerated Referral Physician: Jennifer Reason for Referral: Evaluation/Treatment Medical History Pertinent Medical History: DM, [place] (EF 25%) Additional Medical History Bipolar Current History ER secondary to SOA and confusion Reviewed History: Yes Social History Home: Single Level Current Living Status: Spouse Entry Into Home: Level Entry Prior Prior Level of Function Therapy Quality Codes: 6 Independent with activity with or without an assistive device 5 Patient requires set up or clean up by helper. Patient completes activity by themselves 4 Supervision or touching assist (CGA). [place] provide cues , steadying assist 3 The helper provides less than half the effort to complete the activity 2 The helper provides more than half the effort to complete the activity 1 Dependent. The helper does all the effort to complete an activity 7 Patient refused to complete or attempt activity 9 The patient did not perform the activity before the current illness or injury 88 Not attempted due to Medical conditions or safety concerns Bed Mobility: 4 Transfers (B,C,W/C): 4 Gait: 1 Wheelchair Mobility: 3 Indoor Mobility (Ambulation): Needed Some Help Prior Devices Use: Manual wheelchair, Walker PT Evaluation-Current Subjective Per spouse, patient is non ambulatory and requires assistance for all mobility. Patient agrees to PT. Pain Numeric Pain Scale: 5-Moderate Pain Location: Lower Location Body Site: Back Pain Description: Chronic Objective Patient Orientation: Person, Time, Situation Problem Solving: Fair Attachments: Oxygen, Zimmerman Catheter, IV ROM/Strength ROM Lower Extremities bilateral LE WFL Strength Lower Extremities 3+/5 grossly bilateral LE Integumentary/Posture Integumentary refer to nursing notes Bowel Incontinence: Yes Bladder Incontinence: Zimmerman Cath Posture WFL Neuromuscular (Tone, Coordination, Reflexes) grossly intact Sensory Vision: Functional Hearing: Functional Sensation Right Lower Extremit: Impaired Sensation Left Lower Extremity: Impaired Transfers Roll Left to Right (QC): 3 Sit to Lying (QC): 3 Lying to Sitting/Side of Bed(Q: 3 Sit to Stand (QC): 3 Chair/Tbi-bn-Fducw Xfer(QC): 3 Gait Does the Patient Walk?: No and Walking Goal IS indicated Mode of Locomotion: Both Anticipated Mode of Locomotion: Both Distance (FIM): 1=up to 49 ft Walk 10 feet (QC): 88 Walk 50 ft with 2 Turns(QC): 9 Walk 150 ft (QC): 9 Walking 10ft/uneven surface-QC: 9 Distance: 5' Gait Assistive Device: None Comments/Gait Description shuffle gait sequence Balance Sitting Static: Fair Sitting Dynamic: Fair Standing Static: Fair Standing Dynamic: Fair Assessment/Needs 53 y.o. male, will benefit from skilled PT to address functional strength and mobility to improve current LOF to safely return to home with spouse at maximum LOF. Rehab Potential: Fair PT [facility] Goals School Health Aide Goals PT School Health Aide Goals Time Frame: Aug 30, 2019 Sit to Lying (QC): 4 Lying-Sitting on Side/Bed(QC): 4 Sit to Stand (QC): 4 Roll Left to Right (QC): 4 Chair/Noy-mq-Zckin Xfer(QC): 4 Car Transfer (QC): 4 Walk 10 feet (QC): 4 Walk 10ft-Uneven Surface(QC): 9 Walk 50ft with 2 Turns (QC): 9 Walk 150 ft (QC): 9 Gait Assistive Device: FWW PT Plan Problem List Problem List: Activity Tolerance, Functional Strength, Safety, Balance, Gait, Transfer, Bed Mobility Treatment/Plan Treatment Plan: Continue Plan of Care, Discontinue PT, goals met Treatment Plan: Bed Mobility, Education, Functional Activity Melva, Functional Strength, Gait, Safety, Therapeutic Exercise, Transfers Treatment Duration: Aug 30, 2019 Frequency: 6 times per week Estimated Hrs Per Day: .25 hour per day Patient and/or Family Agrees t: Yes Time/GCodes Time In: 830 Time Out: 853 Total Billed Treatment Time: 23 Total [facility] ALBERT[facility] LEVINE PT Aug 18, 2019 10:20
--- NOTE | 2019-08-18 11:23 | NUR ---
RD ASSESSMENT PMHx: DM, [place], CAD, HLD PT INTERACTION: Pt was semi-awake and pleasant during consult fot MST Score. Note pt's present as well. Pt states current appetite is pretty good, and has been "alright" for the past several weeks. states pt follows "more of heart healthy diet at home, though just switched to Sprite zero"(Note pt's diagnosis of DM). states no issues with n/v/d/c at this time, and last BM was this AM. states current DM management is going well and his blood glucose numbers are under control. states pt has recent 20# weight loss x2mon, and 40# wt loss in "almost 6mon." attributes to weight loss to not eating as much, but not a loss of appetite. Note 26# wt loss x2mon, per chart review. This is significant wt loss at 10.1% x2mon. Upon visual exam, pt appears to be well-nourished with BMI of 32.8. Although the weight loss is significant, given his current po intake, pt does not meet criteria for malnutrition, per ASPEN guidelines. ABNORMAL NUTRITION-RELATED LAB VALUES: Hgb 8.7 (L); Hct 26 (L); Ca 7.6 (L); glu 142 (H) Est. kcal needs: 5877-4144 kcal (20-25 kcal/kg) Est. Pro needs: 83-103 g Pro (0.8-1.0 g Pro/kg) PES STATEMENT: Inadequate oral intake related to weight loss as evidenced by pt interview () INTERVENTION: continue with current diet order of Heart Healthy diet. Encouraged pt to eat when able. MONITOR/EVALUATE: PO Intake; Weight Status; Plan of Care; Hydration Status; Lab Values Lindsey Villanueva, MS, RD, LD [phone]
[2019-08-18 15:07] LABS: BASOPHILS % (AUTO) 0 % (0-10); EOSINOPHILS % (AUTO) 0 % (0-10); HEMATOCRIT 27 % (40-54); LYMPHOCYTES # (AUTO) 0.5 X 10^3 (1.0-4.0); LYMPHOCYTES % (AUTO) 11 % (12-44); MEAN CORPUSCULAR HEMOGLOBIN 30 PG (25-34); MEAN CORPUSCULAR HGB CONC 33 G/DL (32-36); MEAN CORPUSCULAR VOLUME 90 FL (80-99); MEAN PLATELET VOLUME 8.2 FL (7.4-10.4); MONOCYTES # (AUTO) 0.6 X 10^3 (0.0-1.0); MONOCYTES % (AUTO) 12 % (0-12); NEUTROPHILS # (AUTO) 3.9 X 10^3 (1.8-7.8); NEUTROPHILS % (AUTO) 77 % (42-75); PLATELET COUNT 168 10^3/uL (130-400); RED CELL DISTRIBUTION WIDTH 14.9 % (10.0-14.5); WHITE BLOOD COUNT 5.1 10^3/uL (4.3-11.0)
--- NOTE | 2019-08-18 15:22 | Occupational Therapy Eval ---
OT Evaluation-General/PLF Medical Diagnosis Admission Date Aug 17, 2019 at 18:00 Medical Diagnosis: UTI/septic shock/elevated troponin Onset Date: Aug 17, 2019 Therapy Diagnosis Therapy Diagnosis: Weakness Height/Weight Height (Feet): 5 Height (Inches): 8.00 Weight (Pounds): 255 Precautions Precautions/Isolations: Fall Prevention, Standard Precautions Safety Interventions: Reorient-PRN Weight Bear Status Weight Bearing Restriction: Weight Bearing/Tolerated Referral Physician: Jennifer Referral Reason: Activity Tolerance, Self Care, Evaluation/Treatment, Strengthening/ROM Medical History Pertinent Medical History: DM, [place] (EF 25%) Additional Medical History Bipolar, stent placement, CAD, lumbar/cervical stenosis, Right RCR. Current History Pt. came to ER with SOA. Found to have UTI and sepsis. Reviewed History: Yes Social History Home: Single Level Current Living Status: Spouse Entry Into Home: Stairs With Railing Steps Into Home: 5 ADL-Prior Level of Function SCALE: Activities may be completed with or without assistive devices. 0-Tuzctbocmy-qmsemki completes the activity by him/herself with no assistance from a helper. 5-Set-up or Clean-up Assistance-helper sets up or cleans up; patient completes a ctivity. [place] assists only prior to or following the activity. 4-Supervision or Touching Assistance-helper provides verbal cues and/or touching/steadying and/or contact guard assistance as patient completes activity. Assistance may be provided throughout the activity or intermittently. 3-Partial/Moderate Assistance-helper does LESS THAN HALF the effort. [place] lifts, holds or supports trunk or limbs, but provides less than half the effort. 2-Substantial/Maximal Assistance-helper does MORE THAN HALF the effort. [place] lifts or holds trunk or limbs and provides more than half the effort. 6-Yagycpvgp-zedalg does ALL the effort. Patient does none of the effort to complete the activity. Or, the assistance of 2 or more helpers is required for the patient to complete the activity. If activity was not attempted, code reason: 7-Patient Refused. 9-Not Applicable-not attempted and the patient did not perform the activity before the current illness, exacerbation or injury. 10-Not Attempted due to Environmental Limitations-(lack of equipment, weather restraints, etc.). 88-Not Attempted due to Medical Conditions or Safety Concerns. ADL PLOF Comments Pt. uses wheelchair around the house. Per spouse, he "falls a lot" when using his walker. Spouse assists him as needed with bathing and dressing. Self Care: Needed Some Help Functional Cognition: Unknown DME/Equipment Comments Pt. has a walker, manual wheelchair. OT Current Status Subjective Pt. reports that he has some pain in his right toe, but does not state pain level or exact location. Appearance Pt. in bed. Both nurse and spouse state that pt. has been drowsy, and confused at times. Mental Status/Objective Patient Orientation: Person Attachments: IV, Oxygen Current Hand Dominance: Right Upper Extremity ROM Pt. demonstrates shoulder flexion bilaterally to approximately 90 degrees. Upper Extremity Coordination Pt. and spouse report that pt. has recently been dropping things, and having increased difficulty holding onto utensils. Therapist brought pt. built up foam handles for utensils. Upper Extremity Strength 2+/5 bilateral UE strength. ADL-Treatment Eating (QC): 5 (Pt. is able to feed self mashed potatoes with set up.) Lower Body Dressing (QC): 3 (Pt. is able to doff/don right sock with min assist and increased time. Unable to reach left foot.) On/Off Footwear (QC): 3 Pt. transferred supine-sit with mod assist, and sit-stand with mod assist. Pt. able to take several steps to right, toward HOB. Min assist to transfer sit- supine. OT assisted pt. with changing hospital gown, as he had been sweating. Built up foam handles brought into room. Pt. positioned to comfort level. All needs met. Education OT Patient Education: Correct positioning, Modified ADL techniques, Progress toward Goal/Update tx plan, Purpose of tx/functional activities, Reviewed precautions, Rehab process, Transfer techniques Teaching Recipient: Patient, Significant Other Teaching Methods: Demonstration, Discussion OT Short Term Goals Short Term Goals Time Frame: Aug 25, 2019 Eating(FIM): 5 Grooming(FIM): 5 Bathing(FIM): 4 Upper Body Dressing(FIM): 5 Lower Body Dressing(FIM): 4 Toileting(FIM): 4 Transfers (B,C,W/C) (FIM): 4 Toilet/Commode Transfer(FIM): 4 Additional Short Term Goals: 1-Demonstrate ADL Tasks, 2-Verbalize Understanding, 3-ImproveStrength/Melva 1=Demonstrate adherence to instructed precautions during ADL tasks. 2=Patient will verbalize/demonstrate understanding of assistive devices/modifications for ADL. 3=Patient will improve strength/tolerance for activity to enable patient to perform ADL's. OT Sample Checker Goals Sample Checker Goals Time Frame: Sep 01, 2019 Eating (QC): 6 Oral Hygiene (QC): 6 Shower/Bathe Self (QC): 5 Upper Body Dressing (QC): 6 Lower Body Dressing (QC): 5 On/Off Footwear (QC): 5 Toileting Hygiene (QC): 6 Toilet/Commode Transfer (QC): 6 Additional Goals: 1-Demonstrate ADL Tasks, 2-Verbalize Understanding, 3- ImproveStrength/Melva 1=Demonstrate adherence to instructed precautions during ADL tasks. 2=Patient will verbalize/demonstrate understanding of assistive devices/modifications for ADL. 3=Patient will improve strength/tolerance for activity to enable patient to perform ADL's. OT Education/Plan Problem List/Assessment Assessment: Decreased Activ Tolerance, Decreased UE Strength, Dependent Transfers, Impaired Bed Mobility, Impaired Cognition, Impaired Coordination, Impaired Funct Balance, Impaired I ADL's, Impaired Self-Care Skills, Restricted Funct UE ROM Discharge Recommendations Plan/Recommendations: Continue POC Therapy Discharge Recommendati: Post Acute OT Comment Equipment needs to be determined. Treatment Plan/Plan of Care Treatment,Training & Education: Yes Patient would benefit from OT for education, treatment and training to promote independence in ADL's, mobility, safety and/or upper extremity function for ADL's. Plan of Care: ADL Retraining, Functional Mobility, UE Funct Exercise/Act Treatment Duration: Sep 01, 2019 Frequency: 5 times per week Estimated Hrs Per Day: .25 hour per day Agreement: Yes Rehab Potential: Fair Time/GCodes Start Time: 13:30 Stop Time: 13:55 Total Time Billed (hr/min): 25 Billed Treatment Time 1, EVH x 10minutes, ADL x 15minutes CARLO SCHMITZ OT Aug 18, 2019 15:22
[2019-08-18 15:33] LABS: ALANINE AMINOTRANSFERASE 21 U/L (0-55); ALBUMIN 2.7 GM/DL (3.2-4.5); ALKALINE PHOSPHATASE 60 U/L (40-136); BILIRUBIN,TOTAL 0.4 MG/DL (0.1-1.0); BUN/CREATININE RATIO 16; CALCIUM 7.7 MG/DL (8.5-10.1); CARBON DIOXIDE 29 MMOL/L (21-32); CHLORIDE 109 MMOL/L (98-107); CREATININE SERUM 0.77 MG/DL (0.60-1.30); GFR ESTIMATED > 60; GLUCOSE 171 MG/DL (70-105); MAGNESIUM 2.1 MG/DL (1.6-2.4); PHOSPHORUS 3.3 MG/DL (2.3-4.7); SODIUM 145 MMOL/L (135-145); TOTAL PROTEIN 5.5 GM/DL (6.4-8.2)
[2019-08-18] MEDS: HYDROcodone/APAP 5 MG/325 MG (LORTAB) TAB PO PRN (15:35)
--- NOTE | 2019-08-18 19:23 | Wound Care Assessment ---
Wound Care Assessment Date Seen by Provider: Aug 18, 2019 Time Seen by Provider: 18:50 Chief Complaint Sacral ulcer. HPI The patient is a 53 year old male admitted for respiratory failure, with limited mobility, noted to have sacral pressure ulcer. The findings are consistent with a deep tissue injury. Bordered foam, off-loading ordered. Past Medical History: Admits Heart Disease Smoking Status: Former Smoker Recreational Drug Use: No Alcohol Use: Denies Use Review of Systems Pulmonary: No Dyspnea Musculoskeletal: back pain Exam Vital Signs Date Time Temp Pulse Resp B/P (MAP) Pulse Ox O2 Delivery O2 Flow Rate FiO2 08/18/19 18:00 80 8 113/82 (92) 98 Room Air 08/18/19 16:00 37.3 08/18/19 09:00 Capillary Refill : Less Than 3 Seconds General Appearance: no apparent distress Gastrointestinal: non tender Back: other (Sacral ulcer --- 8.5 x 7.5 x 0.3 cm, central ulcer with surrounding ecchymosis.) Results Laboratory Tests 08/18/19 02:52: White Blood Count 7.8, Red Blood Count 2.97L, Hemoglobin 8.7L, Hematocrit 26L, Mean Corpuscular Volume 89, Mean Corpuscular Hemoglobin 29, Mean Corpuscular Hemoglobin Concent 33, Red Cell Distribution Width 15.3H, Platelet Count 183, Mean Platelet Volume 8.5, Neutrophils (%) (Auto) 69, Lymphocytes (%) (Auto) 12, Monocytes (%) (Auto) 18H, Eosinophils (%) (Auto) 1, Basophils (%) (Auto) 0, Neutrophils # (Auto) 5.4, Lymphocytes # (Auto) 1.0, Monocytes # (Auto) 1.4H, Eosinophils # (Auto) 0.1, Basophils # (Auto) 0.0, Sodium Level 140, Potassium Level 3.7, Chloride Level 106, Carbon Dioxide Level 26, Anion Gap 8, Blood Urea Nitrogen 12, Creatinine 0.80, Estimat Glomerular Filtration Rate > 60, BUN/Creatinine Ratio 15, Glucose Level 142H, Lactic Acid Level 0.61, Calcium Lev el 7.6L, Phosphorus Level 3.2, Magnesium Level 1.7, Troponin I 0.113H 08/18/19 09:02: Stool Occult Blood Immunoassay POSITIVEH 08/18/19 15:00: White Blood Count 5.1, Red Blood Count 3.05L, Hemoglobin 9.0L, Hematocrit 27L, Mean Corpuscular Volume 90, Mean Corpuscular Hemoglobin 30, Mean Corpuscular Hemoglobin Concent 33, Red Cell Distribution Width 14.9H, Platelet Count 168, Mean Platelet Volume 8.2, Neutrophils (%) (Auto) 77H, Lymphocytes (%) (Auto) 11L , Monocytes (%) (Auto) 12, Eosinophils (%) (Auto) 0, Basophils (%) (Auto) 0, Neutrophils # (Auto) 3.9, Lymphocytes # (Auto) 0.5L, Monocytes # (Auto) 0.6, Eosinophils # (Auto) 0.0, Basophils # (Auto) 0.0, Sodium Level 145, Potassium Level 4.0, Chloride Level 109H, Carbon Dioxide Level 29, Anion Gap 7, Blood Urea Nitrogen 12, Creatinine 0.77, Estimat Glomerular Filtration Rate > 60, BUN/Creatinine Ratio 16, Glucose Level 171H, Calcium Level 7.7L, Phosphorus Level 3.3, Magnesium Level 2.1, Corrected Calcium 8.7, Total Bilirubin 0.4, Aspartate Amino Transf (AST/SGOT) 21, Alanine Aminotransferase (ALT/SGPT) 21, Alkaline Phosphatase 60, Total Protein 5.5L, Albumin 2.7L 08/18/19 16:57: Glucometer 167H Microbiology 08/17/19 Blood Culture - Preliminary, Resulted No growth 08/17/19 Influenza Types A,B Antigen (KE) - Final, Complete Microbiology 08/17/19 Blood Culture - Preliminary, Resulted No growth 08/17/19 Blood Culture - Preliminary, Resulted No growth 08/17/19 Influenza Types A,B Antigen (KE) - Final, Complete Assessment/Plan/Dx 1. Unclassifiable pressure ulcer, sacrum, deep tissue injury, present on admission. 2. Decreased mobility. 3. Spinal stenosis. 4. Respiratory failure. Plan: Bordered foam dressing, off-loading. ANJELICA PONCE MD Aug 18, 2019 19:23
[2019-08-18] MEDS: VRAYLAR 1.5 MG CAPSULE PO SCH (20:23)
[2019-08-19 00:43] VITALS: BP 125/78
[2019-08-19] MEDS ORDERED: WATER (STERILE) FOR INJECTION 10 ML ONE (02:40)
[2019-08-19] MEDS ORDERED: CEFEPIME 1 GM (MAXIPIME) VIAL ONE (02:40)
[2019-08-19] MEDS: CEFEPIME 1,000 MG/SWFI 10 ML IV PUSH IV SCH ×8 (02:55→17:47)
[2019-08-19] MEDS: NS W/KCL 20 MEQ/L 1,000 ML IV SCH (02:56)
[2019-08-19 04:20] VITALS: BP 130/78
[2019-08-19] MEDS: HYDROCORTISONE 100 MG/2 ML (Solu-CORTEF) VIAL IV SCH (06:21)
[2019-08-19] MEDS: NovoLOG/HumaLOG RANGE A SC SCH ×4 (06:21→21:17)
[2019-08-19] MEDS ORDERED: TROUGH ORDER-PHARMACY XX ONE (07:00)
--- NOTE | 2019-08-19 07:43 | Pulmonary Progress Note ---
Subjective Time Seen by a Provider: 07:42 Sepsis Event Evaluation Height, Weight, BMI Height: 5'8.00" Weight: 255lbs. oz. [id number]; 32.00 BMI Method:Stated Focused Exam Lactate Level 08/17/19 15:10: Lactic Acid Level 3.33*H 08/17/19 17:00: Lactic Acid Level 2.08*H 08/18/19 02:52: Lactic Acid Level 0.61 Time of Focused Exam: 17:56 Exam Exam Vital Signs Date Time Temp Pulse Resp B/P (MAP) Pulse Ox O2 Delivery O2 Flow Rate FiO2 08/19/19 04:20 36.8 73 20 130/78 (95) 92 Room Air 08/19/19 01:01 71 08/19/19 00:43 37.0 76 18 125/78 (94) 96 Room Air 08/18/19 22:05 36.6 77 14 137/83 (101) 94 Room Air 08/18/19 21:00 69 13 117/69 (85) 97 Room Air 08/18/19 20:00 77 22 117/61 (79) 93 Room Air 08/18/19 20:00 Room Air 08/18/19 19:00 76 15 100/57 (71) 98 Room Air 08/18/19 18:58 76 08/18/19 18:00 80 8 113/82 (92) 98 Room Air 08/18/19 17:00 83 50 117/77 (90) Room Air 08/18/19 16:00 75 17 101/73 (82) 93 Room Air 08/18/19 16:00 37.3 08/18/19 16:00 Room Air 08/18/19 15:00 72 14 110/72 (85) 97 Room Air 08/18/19 14:00 75 19 115/70 (85) 98 Room Air 08/18/19 13:00 76 08/18/19 13:00 94 15 128/74 (92) 100 Room Air 08/18/19 12:00 81 15 134/78 (96) 95 Room Air 08/18/19 12:00 37.1 08/18/19 12:00 Room Air 08/18/19 11:00 73 8 135/85 (102) 97 Room Air 08/18/19 10:00 75 12 125/114 (118) 95 Room Air 08/18/19 09:00 85 12 109/70 (83) 93 Room Air 08/18/19 08:00 Room Air 08/18/19 08:00 83 14 118/75 (89) 96 Nasal Cannula 2.00 08/18/19 08:00 36.4 I & O 08/19/19 07:00 Intake Total 2799 ml Output Total 2500 ml Balance 299 ml Height & Weight Height: 5'8.00" Weight: 255lbs. oz. 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
[2019-08-19 08:00] VITALS: BP_SYST 130; BP_SYST 145; BP_DIAS 67; BP_DIAS 88
--- NOTE | 2019-08-19 09:15 | Occupational Ther Daily Note ---
OT Current Status-Daily Note Subjective Pt alert, lying in bed. Pt agrees to therapy. No c/o pain at this time. Mental Status/Objective Patient Orientation: Person, Place, Time, Situation Attachments: Zimmerman Catheter, IV ADL-Treatment Pt took O2 off when ALMONTE entered room. Pt agrees to sponge bath. Min A for supine to EOB with HOB raised, assist with LE's to reduce friction on heels. Sitting EOB pt able to complete upper body bathing. Nrsg came in to change bedding, SPT from EOB to recliner with min A, nrsg cleansed pt buttocks while ALMONTE assisted with support in standing. Pt able to stand with only stabilization though fatigued quickly. Pt able to wash B LE's and don/doff socks. Assist to [facility]/do hospital gown due to IV tubing and telemetry. When given supplies for oral care, pt able to complete by self. Pt using built-up handles on eating utensils. After therapy, pt sitting in recliner with call light/phone in reach. All needs met in room. Visitor present in room. Therapy Code Descriptions/Definitions Functional Cook Measure: 0=Not Assessed/NA 4=Minimal Assistance 1=Total Assistance 5=Supervision or Setup 2=Maximal Assistance 6=Modified Cook 3=Moderate Assistance 7=Complete IndependenceSCALE: Activities may be completed with or without assistive devices. 0-Zcsjezxjxl-jejrfam completes the activity by him/herself with no assistance from a helper. 5-Set-up or Clean-up Assistance-helper sets up or cleans up; patient completes activity. [place] assists only prior to or following the activity. 4-Supervision or Touching Assistance-helper provides verbal cues and/or touching/steadying and/or contact guard assistance as patient completes activity. Assistance may be provided throughout the activity or intermittently. 3-Partial/Moderate Assistance-helper does LESS THAN HALF the effort. [place] lifts, holds or supports trunk or limbs, but provides less than half the effort. 2-Substantial/Maximal Assistance-helper does MORE THAN HALF the effort. [place] lifts or holds trunk or limbs and provides more than half the effort. 1-Kwqkfxklr-smwpsg does ALL the effort. Patient does none of the effort to complete the activity. Or, the assistance of 2 or more helpers is required for the patient to complete the activity. If activity was not attempted, code reason: 7-Patient Refused. 9-Not Applicable-not attempted and the patient did not perform the activity before the current illness, exacerbation or injury. 10-Not Attempted due to Environmental Limitations-(lack of equipment, weather restraints, etc.). 88-Not Attempted due to Medical Conditions or Safety Concerns. OT Short Term Goals Short Term Goals Time Frame: Aug 25, 2019 Eating(FIM): 5 Grooming(FIM): 5 Bathing(FIM): 4 Upper Body Dressing(FIM): 5 Lower Body Dressing(FIM): 4 Toileting(FIM): 4 Transfers (B,C,W/C) (FIM): 4 Toilet/Commode Transfer(FIM): 4 Additional Short Term Goals: 1-Demonstrate ADL Tasks, 2-Verbalize Understanding, 3-ImproveStrength/Melva 1=Demonstrate adherence to instructed precautions during ADL tasks. 2=Patient will verbalize/demonstrate understanding of assistive devices/mo difications for ADL. 3=Patient will improve strength/tolerance for activity to enable patient to perform ADL's. OT Environmental Services Attendant Goals Environmental Services Attendant Goals Time Frame: Sep 01, 2019 Eating (QC): 6 Oral Hygiene (QC): 6 Shower/Bathe Self (QC): 5 Upper Body Dressing (QC): 6 Lower Body Dressing (QC): 5 On/Off Footwear (QC): 5 Toileting Hygiene (QC): 6 Toilet/Commode Transfer (QC): 6 Additional Goals: 1-Demonstrate ADL Tasks, 2-Verbalize Understanding, 3- ImproveStrength/Melva 1=Demonstrate adherence to instructed precautions during ADL tasks. 2=Patient will verbalize/demonstrate understanding of assistive devices/modifications for ADL. 3=Patient will improve strength/tolerance for activity to enable patient to perform ADL's. OT Education/Plan Problem List/Assessment Assessment: Decreased Activ Tolerance, Impaired Coordination, Impaired Funct Balance, Impaired Self-Care Skills Discharge Recommendations Plan/Recommendations: Continue POC Treatment Plan/Plan of Care Patient would benefit from OT for education, treatment and training to promote independence in ADL's, mobility, safety and/or upper extremity function for ADL's. Plan of Care: ADL Retraining, Functional Mobility, UE Funct Exercise/Act Treatment Duration: Sep 01, 2019 Frequency: 5 times per week Estimated Hrs Per Day: .25 hour per day Agreement: Yes Rehab Potential: Fair Time/GCodes Start Time: 08:30 Stop Time: 09:38 Total Time Billed (hr/min): 38 Billed Treatment Time 1 visit-ADL 3 (38 min) TEDDY HAWKINS Aug 19, 2019 09:15
--- NOTE | 2019-08-19 09:40 | Cardiology Progress Note ---
Subjective Date Seen by Provider: Aug 19, 2019 Time Seen by Provider: 09:39 Subjective/Events-last exam patient is sitting in bed, comfortable, denied any chest pain Review of Systems General: No Chills, No Night Sweats, No Fatigue, No Malaise, No Appetite, No Other HEENT: No Head Aches, No Visual Changes, No Eye Pain, No Ear Pain, No Dysphasia, No Sinus Congestion, No Post Nasal Drip, No Sore Throat, No Other Pulmonary: No Dyspnea, No Cough, No Pleuritic Chest Pain, No Other Cardiovascular: No: Chest Pain, Palpitations, Orthopnea, Paroxysmal Noc. Dyspnea, Edema, Lt Headedness, Other Focused Exam Lactate Level 08/17/19 15:10: Lactic Acid Level 3.33*H 08/17/19 17:00: Lactic Acid Level 2.08*H 08/18/19 02:52: Lactic Acid Level 0.61 Time of Focused Exam: 17:56 Objective-Cardiology Exam Last Set of Vital Signs Vital Signs 08/19/19 08/19/19 04:20 07:00 Temp 36.8 Pulse 84 Resp 20 B/P (MAP) 130/78 (95) Pulse Ox 92 O2 Delivery Room Air Capillary Refill : Less Than 3 Seconds I&O Intake and Output 08/19/19 00:00 Intake Total 4243 ml Output Total 4150 ml Balance 93 ml Intake Oral 1734 ml IV Total 2509 ml Output Urine Total 4150 ml # Bowel Movements 3 General: Alert, Oriented X3, Cooperative HEENT: Atraumatic, PERRLA Neck: Supple, No JVD, No Thyromegaly Lungs: Clear to Auscultation, Normal Air Movement Heart: Regular Rate, Normal S1, Normal S2, No Murmurs Abdomen: Normal Bowel Sounds, Soft, No Tenderness, No Hepatosplenomegaly, No Masses Extremities: No Clubbing, No Cyanosis, No Edema, Normal Pulses, No Tenderness/Swelling Skin: No Rashes, No Breakdown, No Significant Lesion Neuro: Normal Gait, Normal Speech, Strength at 5/5 X4 Ext, Normal Tone, Sensation Intact Psych/Mental Status: Mental Status NL, Mood NL Results Lab Laboratory Tests 08/18/19 15:00 A/P-Cardiology Admission Diagnosis Sepsis UTI Non-ST elevation myocardial infarction Congestive heart failure, chronic compensated left ventricular systolic dysfunction, ischemic cardiomyopathy Assessment/Plan Sepsis, UTI, receiving antibiotic and managed by primary care team Congestive heart failure, chronic compensated left ventricular systolic dysfunction, ischemic cardiomyopathy, ejection fraction 25-30 percent, continue with medical therapy and will add LifeVest, discussed with the and the patient regarding the possibility of ICD in the future Coronary artery disease, family reported that he had a cardiac catheterization with Dr. Lovelace in July 2019 had a stent to one artery and he had other diseased arteries that were in operable treated medically. Continue to monitor Elevated troponin level, non-ST elevation myocardial infarction, type II [place] secondary to hypotension and extensive coronary artery disease, continue conservative management Anemia, drop in H&H, continue to monitor closely and evaluate stool for occult blood, patient will need to be on aspirin and Plavix at this point, he had a recent stent Hyperlipidemia, maintained on Lipitor 80 mg daily C-spine stenosis, patient was scheduled for surgery, during anesthesia induction has severe hypotension, surgery was canceled and patient was taken to the catheter lab and had a stent done as described above, still having back and neck pain Bipolar disorder, confusion, chronic, managed by primary care team I will arrange for LifeVest evaluation today Clinical Quality Measures DVT/VTE Risk/Contraindication: Risk Factor Score Per Nursin RFS Level Per Nursing on Admit: 4+=Very High ALINA GREGG MD Aug 19, 2019 09:40
[2019-08-19] MEDS: DIVALPROEX 500 MG DELAYED RELEASE (DEPAKOTE) TAB PO SCH ×2 (10:49→21:17)
[2019-08-19] MEDS: SERTRALINE 100 MG (ZOLOFT) TAB PO SCH (10:49)
[2019-08-19] MEDS: ENOXAPARIN 40 MG/0.4 ML (LOVENOX) SYR SC SCH (10:49)
[2019-08-19] MEDS: CLOPIDOGREL 75 MG (PLAVIX) TABLET PO SCH (10:49)
[2019-08-19] MEDS: PANTOPRAZOLE 40 MG (PROTONIX) VIAL IV SCH (10:50)
[2019-08-19] MEDS: ASPIRIN 81 MG CHEW (CHILDREN'S ASA) PO SCH (10:50)
[2019-08-19] MEDS: PREGABALIN 150 MG (LYRICA) CAPSULE PO SCH ×2 (10:50→21:17)
[2019-08-19] MEDS: VANCOMYCIN 1500 MG/NS 500 ML IVPB IV SCH ×4 (11:17→21:16)
[2019-08-19] MEDS: HYDROcodone/APAP 5 MG/325 MG (LORTAB) TAB PO PRN ×2 (11:30→19:46)
[2019-08-19 12:00] VITALS: BP 132/76
--- NOTE | 2019-08-19 12:05 | Progress Note - Hospitalist ---
[facility] 08/19/19 1205: Subjective HPI/CC On Admission Date Seen by Provider: Aug 19, 2019 Time Seen by Provider: 07:00 CC: Septic shock due to UTI HPI: This is a 53[facility] pt who resides in a wheel chair from a Cauda Equina syndrome recently due to spinal stenosis who usually doctors at [place] who presented to the ER with Hypotension and lethargy found to be in septic shock from UTI systolic BP of 70 requiring aggressive IV fluid resuscitation, central line placement, pressor therapy, and intensive care management, He recently had a stent placed after pre-op evaluation for spine surgery revealed abnormality and follow up sees to have ejection fraction of 30%. He continues to have chronic lower extremity edema, He has a history of bipolar disorder and was hallucinating last night but that is much improved. He does smoke pipes, doesn't drink alcohol, and uses a CPAP machine and he is a retired [employer] of 20 years, and he is . At this current time pt is doing better, he is up in a chair and the nurse is changing his central line dressing. Subjective/Events-last exam Pt appears much better than the previous morning reporting no further episodes of confusion or shortness of breath. He states he does still have some word finding difficultly sometimes. He states he is feeling better as well, and denies any fever. He still has some weakness in lower and upper extremities. He states he does have a cough still from the chronic tobacco use, but did state he is interested in cutting back and working his way towards stopping his pipe sm oking habit. he feels that since he has been away from his pipe for a little while now it has made him think about being able to stop the habit slowly by reducing the frequency until he is able to fully quit. He states that pipe smoking is very pleasurable to him and will a difficult habit fully stop. Review of Systems HEENT: No Head Aches, No Visual Changes Pulmonary: No Dyspnea; Cough Cardiovascular: No: Chest Pain, Palpitations Gastrointestinal: Abdominal Pain (LLQ); No: Nausea, Vomiting Neurological: Weakness; No: Numbness Focused Exam Lactate Level 08/17/19 15:10: Lactic Acid Level 3.33*H 08/17/19 17:00: Lactic Acid Level 2.08*H 08/18/19 02:52: Lactic Acid Level 0.61 Time of Focused Exam: 17:56 Respiratory: Chest Non Tender, Lungs Clear, Normal Breath Sounds, No Accessory Muscle Use, No Respiratory Distress Cardiovascular: Regular Rate, Rhythm, No Gallop, No Murmur Skin: normal color, warm/dry Objective Exam Vital Signs Vital Signs Date Time Temp Pulse Resp B/P (MAP) Pulse Ox O2 Delivery O2 Flow Rate FiO2 08/19/19 08:00 36.6 81 20 145/88 (107) 98 Room Air 08/18/19 09:00 Capillary Refill : Less Than 3 Seconds General Appearance: No Apparent Distress, WD/WN HEENT: PERRL/EOMI, Moist Mucous Membranes Neck: Full Range of Motion, Normal Inspection Respiratory: Chest Non Tender, Lungs Clear, Normal Breath Sounds, No Accessory Muscle Use, No Respiratory Distress Cardiovascular: Regular Rate, Rhythm, No Gallop, No Murmur Gastrointestinal: Soft, Tenderness (LLQ) Extremity: Normal Inspection, No Calf Tenderness, Pedal Edema (Bilateral ) Neurologic/Psychiatric: Alert, Oriented x3, Normal Mood/Affect Skin: Normal Color, Warm/Dry Results/Procedures Lab Laboratory Tests 08/18/19 15:00 Patient resulted labs reviewed. Assessment/Plan Assessment and Plan Assess & Plan/Chief Complaint Assessment: UTI Spetic Shock CHF Previous WI with stent placement Bipolar Plan: Continue antibiotics Consulted cardiology for CHF and WI assessment, LifeVest to be placed prior to discharge Continue Depakote, Vraylar, Zoloft DVT prophylaxis Clinical Quality Measures DVT/VTE Risk/Contraindication: Risk Factor Score Per Nursin RFS Level Per Nursing on Admit: 4+=Very High AMANDA SPENCER DO 08/19/192020: Subjective Subjective/Events-last exam Confusion much improved. Will heplock IV fluid. Will discontinue the right subclavian central line. DC Zimmerman Proteus appears to be on urine culture. Cardiology maintain consultation. Cough and dyspnea much improved. DVT prophylaxis maintained. Review of Systems Neurological: Confusion Objective Exam General Appearance: No Apparent Distress, WD/WN, Chronically ill Neurologic/Psychiatric: Alert, Oriented x3, No Motor/Sensory Deficits, Normal Mood/Affect Assessment/Plan Assessment and Plan Assess & Plan/Chief Complaint Septic shock CHF CAD Bipolar Diagnosis/Problems Diagnosis/Problems (1) Septic shock Status: Acute (2) UTI (urinary tract infection) Status: Acute Qualifiers: Qualified Codes: N30.00 - Acute cystitis without hematuria (3) Elevated troponin Status: Acute (4) Sacral pressure ulcer Status: Acute Qualifiers: Qualified Codes: L89.152 - Pressure ulcer of sacral region, stage 2 (5) Bipolar disorder (6) CAD (coronary artery disease) (7) Delirium (8) Edema (9) CHF (congestive heart failure) (10) Wheelchair bound (11) DAISY on CPAP (12) Former smoker Supervisory-Addendum Brief Verification & Attestation Participated in pt care: history, MDM, physical Personally performed: exam, history, MDM, supervision of care Care discussed with: Medical Student Procedures: n/a Results interpretation: Verified all documentation Verification and Attestation of Medical Student E/M Service A medical student performed and documented this service in my presence. I reviewed and verified all information documented by the medical student and made modifications to such information, when appropriate. I personally performed the physical exam and medical decision making. Amanda Spencer, Aug 19, 2019,20:20 [facility] Aug 19, 2019 12:05 AMANDA SPENCER DO Aug 19, 2019 20:21
[2019-08-19] MEDS: VRAYLAR 1.5 MG CAPSULE PO SCH ×2 (13:31→19:47)
[2019-08-19 13:43] LABS: BASOPHILS % (AUTO) 0 % (0-10); EOSINOPHILS % (AUTO) 0 % (0-10); HEMATOCRIT 25 % (40-54); HEMOGLOBIN 8.3 G/DL (13.3-17.7); LYMPHOCYTES # (AUTO) 0.7 X 10^3 (1.0-4.0); LYMPHOCYTES % (AUTO) 11 % (12-44); MEAN CORPUSCULAR HEMOGLOBIN 29 PG (25-34); MEAN CORPUSCULAR HGB CONC 33 G/DL (32-36); MEAN CORPUSCULAR VOLUME 88 FL (80-99); MEAN PLATELET VOLUME 8.8 FL (7.4-10.4); MONOCYTES # (AUTO) 0.6 X 10^3 (0.0-1.0); MONOCYTES % (AUTO) 10 % (0-12); NEUTROPHILS # (AUTO) 4.7 X 10^3 (1.8-7.8); NEUTROPHILS % (AUTO) 78 % (42-75); PLATELET COUNT 214 10^3/uL (130-400); RED CELL DISTRIBUTION WIDTH 14.8 % (10.0-14.5); WHITE BLOOD COUNT 5.9 10^3/uL (4.3-11.0)
[2019-08-19 13:45] LABS: ALANINE AMINOTRANSFERASE 26 U/L (0-55); ALBUMIN 2.6 GM/DL (3.2-4.5); ALKALINE PHOSPHATASE 48 U/L (40-136); BILIRUBIN,TOTAL 0.3 MG/DL (0.1-1.0); BUN/CREATININE RATIO 17; CALCIUM 7.7 MG/DL (8.5-10.1); CARBON DIOXIDE 23 MMOL/L (21-32); CHLORIDE 111 MMOL/L (98-107); CREATININE SERUM 0.69 MG/DL (0.60-1.30); GFR ESTIMATED > 60; GLUCOSE 165 MG/DL (70-105); MAGNESIUM 1.9 MG/DL (1.6-2.4); PHOSPHORUS 2.6 MG/DL (2.3-4.7); SODIUM 143 MMOL/L (135-145); TOTAL PROTEIN 5.1 GM/DL (6.4-8.2)
--- NOTE | 2019-08-19 13:52 | Physical Therapy Daily Note ---
PT Daily Note-Current Subjective Pt laying Supine in bed upon arrival. Pt agrees to PT. Pain Numeric Pain Scale: 5-Moderate Pain Location Body Site: Back Pain Description: Ache, Tightness Comment: Pt reports pain with Ex. Mental Status Patient Orientation: Person, Place, Time, Situation Transfers SCALE: Activities may be completed with or without assistive devices. 6-Fjilizezez-yvnisat completes the activity by him/herself with no assistance from a helper. 5-Set-up or Clean-up Assistance-helper sets up or cleans up; patient completes activity. [place] assists only prior to or following the activity. 4-Supervision or Touching Assistance-helper provides verbal cues and/or touching/steadying and/or contact guard assistance as patient completes activity. Assistance may be provided throughout the activity or intermittently. 3-Partial/Moderate Assistance-helper does LESS THAN HALF the effort. [place] lifts, holds or supports trunk or limbs, but provides less than half the effort. 2-Substantial/Maximal Assistance-helper does MORE THAN HALF the effort. [place] lifts or holds trunk or limbs and provides more than half the effort. 4-Cuyspmprs-irdpcl does ALL the effort. Patient does none of the effort to complete the activity. Or, the assistance of 2 or more helpers is required for the patient to complete the activity. If activity was not attempted, code reason: 7-Patient Refused. 9-Not Applicable-not attempted and the patient did not perform the activity before the current illness, exacerbation or injury. 10-Not Attempted due to Environmental Limitations-(lack of equipment, weather restraints, etc.). 88-Not Attempted due to Medical Conditions or Safety Concerns. Weight Bearing Right Lower Extremity: Right Weight Bearing/Tolerated Left Lower Extremity: Left Weight Bearing/Tolerated Exercises Supine Ex: Ankle pumps, Quad Set, Glut sets (Attempted but uncomfortable due to wound so discontinued), Heel Slides, Hip abd/add Supine Reps: 10 Treatments Pt completes Supine EX in bed with RB as needed. Pt attempts GS but reports uncomfortable/pain so discontinued. Pt resting at end of tx, no questions, all needs met with call light in hand. Assessment Current Status: Good Progress Pt tolerates tx well but needs RB occasionally. PT Mcc Goals Testing Director Goals PT Testing Director Goals Time Frame: Aug 30, 2019 Sit to Lying (QC): 4 Lying-Sitting on Side/Bed(QC): 4 Sit to Stand (QC): 4 Roll Left to Right (QC): 4 Chair/Eda-ny-Bffqy Xfer(QC): 4 Car Transfer (QC): 4 Walk 10 feet (QC): 4 Walk 10ft-Uneven Surface(QC): 9 Walk 50ft with 2 Turns (QC): 9 Walk 150 ft (QC): 9 Gait Assistive Device: FWW PT Plan Problem List Problem List: Activity Tolerance, Functional Strength, Balance, Gait Treatment/Plan Treatment Plan: Continue Plan of Care Treatment Plan: Bed Mobility, Education, Functional Activity Melva, Functional Strength, Gait, Safety, Therapeutic Exercise, Transfers Treatment Duration: Aug 30, 2019 Frequency: 6 times per week Estimated Hrs Per Day: .25 hour per day Patient and/or Family Agrees t: Yes Safety Risks/Education Patient Education: Transfer Techniques, Correct Positioning Teaching Recipient: Patient Teaching Methods: Discussion Response to Teaching: Verbalize Understanding Time/GCodes Time In: 1255 Time Out: 1310 Total Billed Treatment Time: 15 Total Billed Treatment 1, EX (15m) YOLETTE BALLARD ASSOCIATE DIRECTOR FINANCIAL AID Aug 19, 2019 13:52
--- NOTE | 2019-08-19 15:12 | NUR ---
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 He shared that going into law enforcement was an act of personal jacob, as he sought to advocate for and help others. He shared about how he became a antenna specialist, about his jacob in [place], his personal convictions, and his relationship with God. I offered active listening and compassionate presence. Before our visit concluded, the pt requested prayer. After we prayed together he stood up, shook my hand and said, "I am in the presence of a true antenna specialist. Thank you for visiting me today. You are welcome here anytime."
[2019-08-19 16:00] VITALS: BP 110/67
[2019-08-19 20:15] VITALS: BP 113/73
[2019-08-19] MEDS ORDERED: CYCLOBENZAPRINE 10 MG (FLEXERIL) TAB PO PRN (20:15)
[2019-08-19] MEDS ORDERED: NON-FORMULARY MEDICATION 1 EA EA (Diazepam 5 MG) PO PRN (20:15)
[2019-08-19] MEDS ORDERED: NITROGLYCERIN 0.4 MG SL TABS BTL 25'S SL PRN (20:15)
[2019-08-19] MEDS ORDERED: DIAZEPAM 5 MG (VALIUM) TABLET PO PRN (20:30)
[2019-08-19] MEDS ORDERED: DIVALPROEX SODIUM 500 MG PO SCH (21:00)
[2019-08-19] MEDS ORDERED: PREGABALIN 150 MG (LYRICA) CAPSULE PO SCH (21:00)
[2019-08-19] MEDS: PANTOPRAZOLE 40 MG (PROTONIX) TAB PO SCH (21:17)
[2019-08-20] MEDS: CEFEPIME 1,000 MG/SWFI 10 ML IV PUSH IV SCH ×4 (00:19→06:28)
[2019-08-20 00:40] VITALS: BP 118/74
[2019-08-20] MEDS: HYDROcodone/APAP 10 MG/325 MG (LORTAB) TAB PO PRN ×3 (01:10→12:13)
[2019-08-20 04:00] VITALS: BP 105/71
[2019-08-20 06:18] LABS: BASOPHILS % (AUTO) 0 % (0-10); EOSINOPHILS % (AUTO) 1 % (0-10); HEMATOCRIT 27 % (40-54); HEMOGLOBIN 8.8 G/DL (13.3-17.7); LYMPHOCYTES # (AUTO) 1.7 X 10^3 (1.0-4.0); LYMPHOCYTES % (AUTO) 31 % (12-44); MEAN CORPUSCULAR HEMOGLOBIN 29 PG (25-34); MEAN CORPUSCULAR HGB CONC 33 G/DL (32-36); MEAN CORPUSCULAR VOLUME 89 FL (80-99); MEAN PLATELET VOLUME 8.5 FL (7.4-10.4); MONOCYTES # (AUTO) 0.6 X 10^3 (0.0-1.0); MONOCYTES % (AUTO) 11 % (0-12); NEUTROPHILS # (AUTO) 3.2 X 10^3 (1.8-7.8); NEUTROPHILS % (AUTO) 58 % (42-75); PLATELET COUNT 211 10^3/uL (130-400); RED CELL DISTRIBUTION WIDTH 14.9 % (10.0-14.5); WHITE BLOOD COUNT 5.6 10^3/uL (4.3-11.0)
[2019-08-20 06:33] LABS: ALANINE AMINOTRANSFERASE 30 U/L (0-55); ALBUMIN 2.5 GM/DL (3.2-4.5); ALKALINE PHOSPHATASE 46 U/L (40-136); BILIRUBIN,TOTAL 0.2 MG/DL (0.1-1.0); BUN/CREATININE RATIO 17; CALCIUM 7.6 MG/DL (8.5-10.1); CARBON DIOXIDE 23 MMOL/L (21-32); CHLORIDE 111 MMOL/L (98-107); CREATININE SERUM 0.69 MG/DL (0.60-1.30); GFR ESTIMATED > 60; GLUCOSE 132 MG/DL (70-105); POTASSIUM 3.8 MMOL/L (3.6-5.0); SODIUM 142 MMOL/L (135-145); TOTAL PROTEIN 4.8 GM/DL (6.4-8.2)
[2019-08-20] MEDS ORDERED: cefTRIAXone FOR IV USE 1,000 MG in WATER (STERILE) FOR INJECTION 10 ML IV SCH (06:45)
--- NOTE | 2019-08-20 06:47 | Pulmonary Progress Note ---
Sepsis Event Evaluation Height, Weight, BMI Height: 5'8.00" Weight: 255lbs. oz. 115.008948yc; 32.00 BMI Method:Stated Focused Exam Lactate Level 08/17/19 15:10: Lactic Acid Level 3.33*H 08/17/19 17:00: Lactic Acid Level 2.08*H 08/18/19 02:52: Lactic Acid Level 0.61 Time of Focused Exam: 17:56 Exam Exam Vital Signs Date Time Temp Pulse Resp B/P (MAP) Pulse Ox O2 Delivery O2 Flow Rate FiO2 08/20/19 01:00 73 08/20/19 00:40 36.5 66 19 118/74 (89) 97 Room Air 08/19/19 20:15 36.4 72 18 113/73 (86) 98 Room Air 08/19/19 19:00 72 08/19/19 16:00 36.6 82 18 110/67 (81) 98 Room Air 08/19/19 13:00 69 08/19/19 12:00 36.3 82 20 132/76 (94) 97 Room Air 08/19/19 08:00 Room Air 08/19/19 08:00 36.6 81 20 145/88 (107) 98 Room Air 08/19/19 07:00 84 I & O 08/20/19 07:00 Intake Total 1570 ml Output Total 1500 ml Balance 70 ml Height & Weight Height: 5'8.00" Weight: 255lbs. oz. 115.199856lq; 32.00 BMI Method:Stated General Appearance: No Apparent Distress, WD/WN, Chronically ill HEENT: PERRL/EOMI, Moist Mucous Membranes Neck: Full Range of Motion, Normal Inspection Respiratory: Chest Non Tender, Lungs Clear, Normal Breath Sounds, No Accessory Muscle Use, No Respiratory Distress Cardiovascular: Regular Rate, Rhythm, No Gallop, No Murmur Capillary Refill: Less Than 3 Seconds Peripheral Pulses: 2+ Radial Pulses (R), 2+ Radial Pulses (L) Gastrointestinal: non tender Extremity: Normal Inspection, No Calf Tenderness, Pedal Edema (Bilateral ) Neurologic/Psychiatric: Alert, Oriented x3, No Motor/Sensory Deficits, Normal Mood/Affect Skin: Normal Color, Warm/Dry Lymphatic: No Adenopathy Results Lab Laboratory Tests 08/18/19 15:00 08/19/19 07:10 08/19/19 13:01 08/20/19 05:51 Assessment/Plan Assessment/Plan UTI with severe sepsis and septic shock -repeat labs today - Change Abx to Rocephin -URine shows Proteus CHF -SL IVF -Repeat labs and check BNP -Monitor Anemia -protonix -Check Occult stool CAD with elevated troponin -Cardiology consulted Sacral pressure ulcer stage II -Wound care I am going to sign off please call with any questions. NAS MALDONADO DO Aug 20, 2019 06:47
[2019-08-20 08:00] VITALS: BP 126/80
--- NOTE | 2019-08-20 08:56 | Cardiology Progress Note ---
Subjective Date Seen by Provider: Aug 20, 2019 Time Seen by Provider: 08:54 Subjective/Events-last exam Patient is sitting up in bed, no new complaint. States had dyspnea last night, now improved. Denies any chest pain. Review of Systems General: No Chills, No Night Sweats, No Fatigue, No Malaise, No Appetite, No Other HEENT: No Head Aches, No Visual Changes, No Eye Pain, No Ear Pain, No Dysphasia, No Sinus Congestion, No Post Nasal Drip, No Sore Throat, No Other Pulmonary: No Dyspnea, No Cough, No Pleuritic Chest Pain, No Other Cardiovascular: No: Chest Pain, Palpitations, Orthopnea, Paroxysmal Noc. Dyspnea, Edema, Lt Headedness, Other Focused Exam Lactate Level 08/17/19 15:10: Lactic Acid Level 3.33*H 08/17/19 17:00: Lactic Acid Level 2.08*H 08/18/19 02:52: Lactic Acid Level 0.61 Time of Focused Exam: 17:56 Objective-Cardiology Exam Last Set of Vital Signs Vital Signs Capillary Refill : Less Than 3 Seconds I&O Intake and Output 08/20/19 00:00 Intake Total 2070 ml Output Total 2400 ml Balance -330 ml Intake Oral 2070 ml Output Urine Total 2400 ml # Voids 2 # Bowel Movements 2 General: Alert, Oriented X3, Cooperative HEENT: Atraumatic, PERRLA Neck: Supple, No JVD, No Thyromegaly Lungs: Clear to Auscultation, Normal Air Movement Heart: Regular Rate, Normal S1, Normal S2, No Murmurs Abdomen: Normal Bowel Sounds, Soft, No Tenderness, No Hepatosplenomegaly, No M asses Extremities: No Clubbing, No Cyanosis, No Edema, Normal Pulses, No Tende rness/Swelling Skin: No Rashes, No Breakdown, No Significant Lesion Neuro: Normal Gait, Normal Speech, Strength at 5/5 X4 Ext, Normal Tone, Sensation Intact Psych/Mental Status: Mental Status NL, Mood NL Results Lab Laboratory Tests 08/20/19 05:51 A/P-Cardiology Admission Diagnosis Sepsis UTI Non-ST elevation myocardial infarction Congestive heart failure, chronic compensated left ventricular systolic dysfunction, ischemic cardiomyopathy Assessment/Plan Sepsis, UTI, receiving antibiotic and managed by primary care team Congestive heart failure, chronic compensated left ventricular systolic dysfunction, ischemic cardiomyopathy, ejection fraction 25-30 percent, continue with medical therapy and will add LifeVest, discussed with the and the patient regarding the possibility of ICD in the future Coronary artery disease, family reported that he had a cardiac catheterization with Dr. Lovelace in July 2019 had a stent to one artery and he had other diseased arteries that were in operable treated medically. Continue to monitor Elevated troponin level, non-ST elevation myocardial infarction, type II [place] secondary to hypotension and extensive coronary artery disease, continue conservative management Anemia, drop in H&H, continue to monitor closely stool for occult blood positive, patient will need to be on aspirin and Plavix at this point, he had a recent stent Hyperlipidemia, maintained on Lipitor 80 mg daily C-spine stenosis, patient was scheduled for surgery, during anesthesia induction has severe hypotension, surgery was canceled and patient was taken to the catheter lab and had a stent done as described above, still having back and neck pain Bipolar disorder, confusion, chronic, managed by primary care team Patient was seen and evaluated with Viola, examination performed, management plan was discussed, agree with the current scribed note, I made few changes to the note using Italic font Patient is laying down in bed, feeling better, no new complaint Continue with current medication, monitor blood pressure and lipids Patient will need a LifeVest and possible ICD in the future Continue current medication Clinical Quality Measures DVT/VTE Risk/Contraindication: Risk Factor Score Per Nursin RFS Level Per Nursing on Admit: 4+=Very High VIOLA NGO Aug 20, 2019 08:56 ALINA GREGG MD Aug 20, 2019 14:30
[2019-08-20] MEDS ORDERED: NON-FORMULARY MEDICATION 1 EA EA (Cariprazine Hydrochloride (Vraylar) 1.5 MG) PO SCH (09:00)
[2019-08-20] MEDS ORDERED: SERTRALINE 100 MG (ZOLOFT) TAB PO SCH (09:00)
[2019-08-20] MEDS ORDERED: PANTOPRAZOLE 40 MG (PROTONIX) TAB PO SCH (09:00)
[2019-08-20] MEDS ORDERED: CLOPIDOGREL 75 MG (PLAVIX) TABLET PO SCH (09:00)
[2019-08-20] MEDS ORDERED: ASPIRIN 81 MG CHEW (CHILDREN'S ASA) PO SCH (09:00)
[2019-08-20] MEDS: NovoLOG/HumaLOG RANGE A SC SCH ×2 (09:16→11:28)
[2019-08-20] MEDS: DIVALPROEX 500 MG DELAYED RELEASE (DEPAKOTE) TAB PO SCH (09:31)
[2019-08-20] MEDS: ASPIRIN 81 MG CHEW (CHILDREN'S ASA) PO SCH (09:31)
[2019-08-20] MEDS: PANTOPRAZOLE 40 MG (PROTONIX) TAB PO SCH (09:32)
[2019-08-20] MEDS: CLOPIDOGREL 75 MG (PLAVIX) TABLET PO SCH (09:32)
[2019-08-20] MEDS: SERTRALINE 100 MG (ZOLOFT) TAB PO SCH (09:32)
[2019-08-20] MEDS: PREGABALIN 150 MG (LYRICA) CAPSULE PO SCH (09:32)
[2019-08-20] MEDS: ENOXAPARIN 40 MG/0.4 ML (LOVENOX) SYR SC SCH (09:32)
--- NOTE | 2019-08-20 10:47 | Physical Therapy Daily Note ---
PT Daily Note-Current Subjective Patient in recliner pre tx, agrees to PT, states he has a lot of pain in his bottom and nursing is aware of it. Patient states he has already been ambulating this morning and is pretty tired but will ambulate a little more. Appearance Patient in recliner post tx with nurse call, phone, tray, family in the room. Mental Status Patient Orientation: Person, Confused Transfers SCALE: Activities may be completed with or without assistive devices. 1-Owpijtrpsg-unaguwm completes the activity by him/herself with no assistance from a helper. 5-Set-up or Clean-up Assistance-helper sets up or cleans up; patient completes activity. [place] assists only prior to or following the activity. 4-Supervision or Touching Assistance-helper provides verbal cues and/or touching/steadying and/or contact guard assistance as patient completes activity. Assistance may be provided throughout the activity or intermittently. 3-Partial/Moderate Assistance-helper does LESS THAN HALF the effort. [place] lifts, holds or supports trunk or limbs, but provides less than half the effort. 2-Substantial/Maximal Assistance-helper does MORE THAN HALF the effort. [place] lifts or holds trunk or limbs and provides more than half the effort. 3-Memttckik-oxxaht does ALL the effort. Patient does none of the effort to complete the activity. Or, the assistance of 2 or more helpers is required for the patient to complete the activity. If activity was not attempted, code reason: 7-Patient Refused. 9-Not Applicable-not attempted and the patient did not perform the activity before the current illness, exacerbation or injury. 10-Not Attempted due to Environmental Limitations-(lack of equipment, weather restraints, etc.). 88-Not Attempted due to Medical Conditions or Safety Concerns. Transfers (B, C, W/C): 4 Sit to Stand (QC): 4 Chair/Iny-jv-Mbqbr Xfer(QC): 4 CGA, cues for hand placement and safety Weight Bearing Right Lower Extremity: Right Weight Bearing/Tolerated Left Lower Extremity: Left Weight Bearing/Tolerated Gait Training Distance: 40' Walk 10 feet (QC): 4 Gait Persons Needed: 1 Gait Assistive Device: FWW CGA, slow but steady, tends to lean forward over the walker Exercises Seated Therapy Exercises: Ankle pumps, Long arc quads Seated Reps: 15 Treatments transfers, ambulation, LE exercise Assessment Current Status: Poor Progress Patient very tired, fatigued easily PT [facility] Goals Principal Architectural Firm Goals PT Principal Architectural Firm Goals Time Frame: Aug 30, 2019 Sit to Lying (QC): 4 Lying-Sitting on Side/Bed(QC): 4 Sit to Stand (QC): 4 Roll Left to Right (QC): 4 Chair/Ege-ke-Pokoz Xfer(QC): 4 Car Transfer (QC): 4 Walk 10 feet (QC): 4 Walk 10ft-Uneven Surface(QC): 9 Walk 50ft with 2 Turns (QC): 9 Walk 150 ft (QC): 9 Gait Assistive Device: FWW PT Plan Problem List Problem List: Activity Tolerance, Functional Strength, Safety, Balance, Gait, Transfer, Bed Mobility Treatment/Plan Treatment Plan: Continue Plan of Care Treatment Plan: Bed Mobility, Education, Functional Activity Melva, Functional Strength, Gait, Safety, Therapeutic Exercise, Transfers Treatment Duration: Aug 30, 2019 Frequency: 6 times per week Estimated Hrs Per Day: .25 hour per day Patient and/or Family Agrees t: Yes Safety Risks/Education Patient Education: Gait Training, Transfer Techniques, Correct Positioning, Safety Issues Teaching Recipient: Patient Teaching Methods: Demonstration, Discussion Response to Teaching: Reinforcement Needed Time/GCodes Time In: 1028 Time Out: 1042 Total Billed Treatment Time: 14 Total Billed Treatment 1 visit GT 14' LEOBARDO HUBBARD PT Aug 20, 2019 10:47
--- NOTE | 2019-08-20 11:26 | NUR ---
IRF Evaluation Order received to evaluate patient for the ARU. Chart review complete and findings discussed with Dr. Jeffries - patient accepted. Met with patient and spouse to discuss details specific to rehabilitation program. Patient agreeable to required therapy regimen and admission. Thank you for this referral.
--- NOTE | 2019-08-20 11:40 | Progress Note - Hospitalist ---
[facility] 08/20/19 1140: Subjective HPI/CC On Admission Date Seen by Provider: Aug 20, 2019 Time Seen by Provider: 07:10 CC: Septic shock due to UTI HPI: This is a 53[facility]WM [facility] pt who resides in a wheel chair from a Cauda Equina syndrome recently due to spinal stenosis who usually doctors at [facility] who presented to the ER with Hypotension and lethargy found to be in septic shock from UTI systolic BP of 70 requiring aggressive IV fluid resuscitation, central line placement, pressor therapy, and intensive care management, He recently had a stent placed after pre-op evaluation for spine surgery revealed abnormality and follow up sees to have ejection fraction of 30%. He continues to have chronic lower extremity edema, He has a history of bipolar disorder and was hallucinating last night but that is much improved. He does smoke pipes, doesn't drink alcohol, and uses a CPAP machine and he is a retired [employer] [place] of 20 years, and he is . At this current time pt is doing better, he is up in a chair and the nurse is changing his central line dressing. Subjective/Events-last exam Pt is doing much better today and has no new complaints. He does report having a little LLQ abdominal pain still and some SOB that he attributes to laying in bed all day for the last few days. He thinks if he is able to get up and move around a little he would not have the SOB. Yesterday he states PT only did some in bed exercises with him in the afternoon and he did not get out of bed for any therapy. He was able to get up and take a shower using the walker with only minor assistance today. He would likely make a good candidate for the Rehab unit if he is willing. He is wanting to go home and recover in order to be ready to get his cervical and lumbar surgeries. He states that one of the doctors had mentioned a life vest defibrillator that he was very willing and relieved to hear about. He likes the idea of having some protection from cardiac issues without the need for a surgery to place a pacemaker and a surgery to remove the pacemaker. Focused Exam Lactate Level 08/17/19 15:10: Lactic Acid Level 3.33*H 08/17/19 17:00: Lactic Acid Level 2.08*H 08/18/19 02:52: Lactic Acid Level 0.61 Time of Focused Exam: 17:56 Respiratory: Chest Non Tender, Lungs Clear, Normal Breath Sounds, No Accessory Muscle Use, No Respiratory Distress Cardiovascular: Regular Rate, Rhythm, No Gallop, No Murmur Objective Exam Vital Signs Vital Signs Date Time Temp Pulse Resp B/P (MAP) Pulse Ox O2 Delivery O2 Flow Rate FiO2 08/20/19 08:00 36.6 74 20 126/80 (95) 96 Room Air 08/18/19 09:00 Capillary Refill : Less Than 3 Seconds General Appearance: No Apparent Distress, WD/WN Respiratory: Chest Non Tender, Lungs Clear, Normal Breath Sounds, No Accessory Muscle Use, No Respiratory Distress Cardiovascular: Regular Rate, Rhythm, No Gallop, No Murmur Gastrointestinal: Normal Bowel Sounds, Soft, Tenderness (LLQ) Extremity: Non Tender, No Calf Tenderness, Pedal Edema (Bilateral ) Neurologic/Psychiatric: Alert, Oriented x3, Normal Mood/Affect Skin: Normal Color, Warm/Dry Results/Procedures Lab Laboratory Tests 08/19/19 13:01 08/20/19 05:51 Patient resulted labs reviewed. Assessment/Plan Assessment and Plan Assess & Plan/Chief Complaint Assessment: UTI CHF Previous [place] with stent placement Bipolar Plan: Continue antibiotics Consulted cardiology for CHF and WV assessment, LifeVest to be placed prior to discharge Continue Dave Johnson Zoloft DVT prophylaxis Rehab unit consultation Clinical Quality Measures DVT/VTE Risk/Contraindication: Risk Factor Score Per Nursin RFS Level Per Nursing on Admit: 4+=Very High AMANDA SPENCER DO 08/20/19 2019: Supervisory-Addendum Brief Verification & Attestation Participated in pt care: history, MDM, physical Personally performed: exam, history, MDM, supervision of care Care discussed with: Medical Student Procedures: n/a Results interpretation: Verified all documentation Verification and Attestation of Medical Student E/M Service A medical student performed and documented this service in my presence. I reviewed and verified all information documented by the medical student and made modifications to such information, when appropriate. I personally performed the physical exam and medical decision making. Amanda Spencer, Aug 20, 2019,20:18 [facility] Aug 20, 2019 11:40 AMANDA SPENCER DO Aug 20, 2019 20:19
--- NOTE | 2019-08-20 11:52 | Discharge Summary ---
Discharge Summary Hospital Course Was the Problem List Reviewed?: Yes Problems/Dx: (1) Septic shock Status: Acute (2) UTI (urinary tract infection) Status: Acute Qualifiers: Qualified Codes: N30.00 - Acute cystitis without hematuria (3) Elevated troponin Status: Acute (4) Sacral pressure ulcer Status: Acute Qualifiers: Qualified Codes: L89.152 - Pressure ulcer of sacral region, stage 2 (5) Bipolar disorder (6) CAD (coronary artery disease) (7) Delirium (8) Edema (9) CHF (congestive heart failure) (10) Wheelchair bound (11) DAISY on CPAP (12) Former smoker Hospital Course Date of Admission: Aug 17, 2019 at 18:00 Admission Diagnosis : Family Physician/Provider: Elizabeth Ramey Date of Discharge: 08/20/19 Discharge Diagnosis: Septic shock, UTI, CHF, CAD Hospital Course: Hospital course: Pt had a complex hospital course for 4 days after he was admitted of septic shock and UTI. Pt was placed in the ICU, central line placed and aggressive IV fluid initiated along with Dr. Rodriguez consultation and cardiology was also consulted for elevated Troponin. Dr. Lovelace is regular form tamper but Dr. Franklin did confer and review records. Upon further evaluation Lifevest was recommended and he will think about that but his ejection fraction has suffered a significant decline since last seen. Proteus on urine culture and Rocephin will bit required 1g IV daily or 3 days and pt was deemed stable but in need of strengthening in order to be successful at home and will be discharged in the very near future after completing rehab course. Labs and Pending Lab Test: Laboratory Tests 08/19/19 13:01: White Blood Count 5.9, Red Blood Count 2.87L, Hemoglobin 8.3L, Hematocrit 25L, Mean Corpuscular Volume 88, Mean Corpuscular Hemoglobin 29, Mean Corpuscular Hemoglobin Concent 33, Red Cell Distribution Width 14.8H, Platelet Count 214, Mean Platelet Volume 8.8, Neutrophils (%) (Auto) 78H, Lymphocytes (%) (Auto) 11L , Monocytes (%) (Auto) 10, Eosinophils (%) (Auto) 0, Basophils (%) (Auto) 0, Neutrophils # (Auto) 4.7, Lymphocytes # (Auto) 0.7L, Monocytes # (Auto) 0.6, Eosinophils # (Auto) 0.0, Basophils # (Auto) 0.0, B-Type Natriuretic Peptide 872.9H 08/19/19 18:10: Glucometer 255H 08/19/19 21:15: Glucometer 202H 08/20/19 05:51: White Blood Count 5.6, Red Blood Count 3.03L, Hemoglobin 8.8L, Hematocrit 27L, Mean Corpuscular Volume 89, Mean Corpuscular Hemoglobin 29, Mean Corpuscular Hemoglobin Concent 33, Red Cell Distribution Width 14.9H, Platelet Count 211, Mean Platelet Volume 8.5, Neutrophils (%) (Auto) 58, Lymphocytes (%) (Auto) 31, Monocytes (%) (Auto) 11, Eosinophils (%) (Auto) 1, Basophils (%) (Auto) 0, Neutrophils # (Auto) 3.2, Lymphocytes # (Auto) 1.7, Monocytes # (Auto) 0.6, Eosinophils # (Auto) 0.0, Basophils # (Auto) 0.0, Sodium Level 142, Potassium Level 3.8, Chloride Level 111H, Carbon Dioxide Level 23, Anion Gap 8, Blood Urea Nitrogen 12, Creatinine 0.69, Estimat Glomerular Filtration Rate > 60, BUN/Creatinine Ratio 17, Glucose Level 132H, Calcium Level 7.6L, Corrected Calcium 8.8, Total Bilirubin 0.2, Aspartate Amino Transf (AST/SGOT) 26, Alanine Aminotransferase (ALT/SGPT) 30, Alkaline Phosphatase 46, Total Protein 4.8L, Albumin 2.5L 08/20/19 11:19: Glucometer 144H Microbiology 08/17/19 Blood Culture - Preliminary, Resulted No growth 08/17/19 MRSA Screen - Final, Complete MRSA not isolated 08/17/19 Urine Culture - Preliminary, Resulted Proteus species Home Meds Active Reported Viagra (Sildenafil Citrate) 100 Mg Tablet 50-100 Mg PO DAILY PRN Lyrica (Pregabalin) 150 Mg Capsule 150 Mg PO BID Aspirin 81 Mg Tab.chew 81 Mg PO DAILY Farxiga (Dapagliflozin Propanediol) 10 Mg Tablet 10 Mg PO DAILY Depakote (Divalproex Sodium) 500 Mg Tablet.dr 500 Mg PO BID Vraylar (Cariprazine Hydrochloride) 1.5 Mg Capsule 1.5 Mg PO DAILY Diazepam 5 Mg Tablet 5 Mg PO Q6H PRN Hydrocodon-Acetaminophn 10-325 (Hydrocodone/Acetaminophen) 1 Each Tablet 1 Tab PO Q6H PRN Sertraline HCl 100 Mg Tablet 100 Mg PO DAILY Atorvastatin Calcium 40 Mg Tablet 40 Mg PO HS Cyclobenzaprine HCl 10 Mg Tablet 5 Mg PO QID PRN TAKES 1/2 (10MG) TABLET Metformin HCl ER (Metformin HCl) 500 Mg Tab.er.24 1,000 Mg PO BID TAKES 2 (500MG) TABLETS Clopidogrel (Clopidogrel Bisulfate) 75 Mg Tablet 75 Mg PO DAILY Carvedilol 6.25 Mg Tablet 6.25 Mg PO BID Pantoprazole Sodium 40 Mg Tablet.dr 40 Mg PO DAILY Losartan Potassium 25 Mg Tablet 25 Mg PO DAILY Nitroglycerin 0.4 Mg Tab.subl 0.4 Mg SL UD PRN DISSOLVE ONE TABLET UNDER THE TONGUE EVERY 5 MINUTES NEEDED FOR CHEST PAIN. DO NOT EXCEED A TOTAL OF 3 DOSES IN 15 MINUTES Assessment/Pt Instructions IRF Discharge Planning: <30 minutes discharge planning Discharge Instructions Discharge Diet: No Restrictions Discharge Physical Examination Vital Signs Vital Signs Date Time Temp Pulse Resp B/P (MAP) Pulse Ox O2 Delivery O2 Flow Rate FiO2 08/20/19 08:00 36.6 74 20 126/80 (95) 96 Room Air 08/18/19 09:00 General Appearance: No Apparent Distress, WD/WN Respiratory: Lungs Clear Cardiovascular: Regular Rate, Rhythm Neurologic/Psychiatric: Alert, Oriented x3, No Motor/Sensory Deficits, Normal Mood/Affect Allergies: Coded Allergies: No Known Drug Allergies (Unverified , 04/23/19) Discharge Summary Date of Admission Aug 17, 2019 at 18:00 Date of Discharge Discharge Date: Aug 20, 2019 Admission Diagnosis Assessment: Septic shock UTI Recent CAD stent C-spine stenosis s/p cauda equina syndrome in the past DAISY on CPAP Bipolar CHF Cardiomyopathy Plan: Aggressive treatment Cardiology consultation and pulmonary consultation are appreciated Discharge Diagnosis Septic shock CHF CAD Bipolar (1) Septic shock Status: Acute (2) UTI (urinary tract infection) Status: Acute Qualifiers: Qualified Codes: N30.00 - Acute cystitis without hematuria (3) Elevated troponin Status: Acute (4) Sacral pressure ulcer Status: Acute Qualifiers: Qualified Codes: L89.152 - Pressure ulcer of sacral region, stage 2 (5) Bipolar disorder (6) CAD (coronary artery disease) (7) Delirium (8) Edema (9) CHF (congestive heart failure) (10) Wheelchair bound (11) DAISY on CPAP (12) Former smoker Clinical Quality Measures DVT/VTE Risk/Contraindication: Risk Factor Score Per Nursin RFS Level Per Nursing on Admit: 4+=Very High MANPREET SPENCER DO Aug 20, 2019 11:52
--- NOTE | 2019-08-20 12:45 | NUR ---
patient transfered to ARU for therapy, report called to nurse ARU
== END 2019-08-20 12:46 | DRG 871 ==
LOC: EDUNIT# 14:55 → ER 14:56 → ICU 18:00 → 4TH 08-18 21:35
PROVIDERS: ADMIT Internal Medicine; ATTEND Internal Medicine
PROC: 02HV33Z Insertion of Infusion Device into Superior Vena Cava, Percutaneous Approach (ICD-10-PCS; principal; 2019-08-17)
DX: A41.9 Sepsis, unspecified organism (principal); R65.21 Severe sepsis with septic shock; N30.00 Acute cystitis without hematuria; I95.9 Hypotension, unspecified; I25.10 Atherosclerotic heart disease of native coronary artery without angina pectoris; I21.A1 Myocardial infarction type 2; I50.22 Chronic systolic (congestive) heart failure; R44.3 Hallucinations, unspecified; I25.5 Ischemic cardiomyopathy; I25.2 Old myocardial infarction; D64.9 Anemia, unspecified; L89.152 Pressure ulcer of sacral region, stage 2; F31.9 Bipolar disorder, unspecified; E11.9 Type 2 diabetes mellitus without complications; M48.02 Spinal stenosis, cervical region; G47.33 Obstructive sleep apnea (adult) (pediatric); E66.9 Obesity, unspecified; E78.5 Hyperlipidemia, unspecified; Z79.891 Long term (current) use of opiate analgesic; Z95.5 Presence of coronary angioplasty implant and graft; Z79.02 Long term (current) use of antithrombotics/antiplatelets; Z87.891 Personal history of nicotine dependence; Z68.34 Body mass index [BMI] 34.0-34.9, adult; Z87.11 Personal history of peptic ulcer disease; Z99.3 Dependence on wheelchair
CPT/HCPCS: 36415; 51702; 71045; 80048; 80053; 80202; 81000; 82274; 82962; 83605; 83735; 83880; 84100; 84484; 85025; 85610; 85730; 87040; 87077; 87081; 87088; 87186; 87804; 93005; 93306; 96361; 96365; 96366; 96375; 96376

== ENCOUNTER 2019-08-20 11:29 | Inpatient (IN) | payer OTHER ==
[~2019-08-20] VITALS: Ht 177.8 cm; Wt 111.8 kg
[~2019-08-20 11:29] MED LIST changes: +ASPI-983 PO; +ASPI-999 PO; +ATOR40TA70 PO; +CARI1.5C PO; +CARV6.252 PO; +CLOP75TA28 PO; +CYCL10TA9 PO; +DAPA10TA PO; +DIAZ5TAB3 PO; +DIVA500T PO; +HYDR-3820 PO; +LOSA25TA41 PO; +METF-478 PO; +NITR0.4T42 SL; +PANT40TA3 PO; +PREG150C PO; +SERT100T8 PO; +SILD100T PO
[2019-08-20 12:40] VITALS: BP 125/84
--- NOTE | 2019-08-20 12:40 | NUR ---
LLUVIA SCHAEFER admitted to room 229-1, with an admitting diagnosis of DEBILITY , on 08/20/[address] via WHEELCHAIR, accompanied by STAFF. LLUVIA SCHAEFER introduced to surroundings, call light, bed controls, phone, TV, temperature control, lights, meal times, smoking policy, visitor policy, side rail policy, bathrooms and showers. Patient Rights given to patient in the handbook.LLUVIA SCHAEFER verbalizes understanding that [facility] is not responsible for the loss or damage to any personal effects or valuables that are kept in the patients posession during their hospitalization. The following Patient Care Plans were discussed with the PT: Discharge Planning AND IMPAIRED MOBILITY. LLUVIA SCHAEFER verbalizes understanding of Interdisciplinary Patient Education. Patient received Patient Rights Booklet, which includes Privacy Act Statement and Data Collection Information Summary.
--- NOTE | 2019-08-20 12:44 | NUR ---
REVIEWED MED REC IT WAS REPORTED UPON ADMISSION TO ICU. NO CHANGES WERE MADE WHEN THE PATIENT DISCHARGED TO REHAB.
[2019-08-20] MEDS ORDERED: MELATONIN 3 MG TABLET PO PRN (13:45)
[2019-08-20] MEDS ORDERED: ONDANSETRON 4 MG/2 ML (SDV) Z0FRAN IV PRN (13:45)
[2019-08-20] MEDS ORDERED: DIAZEPAM 5 MG (VALIUM) TABLET PO PRN (13:45)
[2019-08-20] MEDS ORDERED: CYCLOBENZAPRINE 10 MG (FLEXERIL) TAB PO PRN (13:45)
[2019-08-20] MEDS ORDERED: NITROGLYCERIN 0.4 MG SL TABS BTL 25'S SL PRN (13:45)
[2019-08-20] MEDS ORDERED: LOPERAMIDE 2 MG (IMODIUM) TABLET PO PRN (13:45)
[2019-08-20] MEDS ORDERED: diphenhydrAMINE 25 MG TAB (BENADRYL) PO PRN (13:45)
[2019-08-20] MEDS ORDERED: CALCIUM CARBONATE 500 MG (TUMS) TAB.CHEW PO PRN (13:45)
[2019-08-20] MEDS ORDERED: DOCUSATE SODIUM 100 MG (COLACE) CAP PO PRN (13:45)
--- NOTE | 2019-08-20 13:53 | Wound Care Assessment ---
Wound Care Assessment Date Seen by Provider: Aug 20, 2019 Time Seen by Provider: 13:40 Chief Complaint Sacral pressure ulcer. HPI 54 year old male with diminished mobility and pressure injury of sacral area. this is now healed. will sign off-. Past Medical History: Admits Heart Disease Exam Capillary Refill : Assessment/Plan/Dx 1. Pressure injury, sacrum, unclassifiable, healed. 2. Spinal stenosis, with limited mobility. Plan: Continue off-loading and BFD. Will sign off. ANJELICA PONCE MD Aug 20, 2019 13:53
--- NOTE | 2019-08-20 13:57 | Physical Therapy Evaluation ---
PT Evaluation-General Medical Diagnosis Admission Date Aug 20, 2019 at 12:40 Medical Diagnosis: debility Onset Date: Aug 20, 2019 Therapy Diagnosis Therapy Diagnosis: weakness; abn gait Height/Weight Height (Feet): 5 Height (Inches): 8.00 Weight (Pounds): 255 Precautions Precautions/Isolations: Standard Precautions Referral Physician: Nesha Reason for Referral: Evaluation/Treatment Medical History Pertinent Medical History: CAD, DM, MD Additional Medical History Bipolar, recent MD with 1 stent placed. Pt had planned to have cervical surgery in the next few weeks but this has been delayed due to other medical issues; in addition, he reports more surgery is planned for his low back as well. Cauda Equina syndrome is mentioned in his history. Current History Pt recently admitted to [facility] with UTI and septic shock. His presenting symptoms included weakness and SOA. Pt has transferred to ARU for continued skilled therapy services. Reviewed History: Yes Social History Home: Single Level Current Living Status: Spouse Entry Into Home: Level Entry PT Steps Inside Home: 1 (Pt describes 4 areas of his home that each have a small curb like step that he "pops the wheelchair over" ) Prior Prior Level of Function SCALE: Activities may be completed with or without assistive devices. 7-Dhbutgnwkf-pizesnt completes the activity by him/herself with no assistance from a helper. 5-Set-up or Clean-up Assistance-helper sets up or cleans up; patient completes activity. [place] assists only prior to or following the activity. 4-Supervision or Touching Assistance-helper provides verbal cues and/or touching/steadying and/or contact guard assistance as patient completes activity. Assistance may be provided throughout the activity or intermittently. 3-Partial/Moderate Assistance-helper does LESS THAN HALF the effort. [place] lifts, holds or supports trunk or limbs, but provides less than half the effort. 2-Substantial/Maximal Assistance-helper does MORE THAN HALF the effort. [place] lifts or holds trunk or limbs and provides more than half the effort. 3-Kgjmarqnr-kcvjet does ALL the effort. Patient does none of the effort to complete the activity. Or, the assistance of 2 or more helpers is required for the patient to complete the activity. If activity was not attempted, code reason: 7-Patient Refused. 9-Not Applicable-not attempted and the patient did not perform the activity before the current illness, exacerbation or injury. 10-Not Attempted due to Environmental Limitations-(lack of equipment, weather restraints, etc.). 88-Not Attempted due to Medical Conditions or Safety Concerns. Bed Mobility: 6 (pt indep with bed mobility) Transfers (B,C,W/C): 6 Gait: 5 (5-6 short distances in his home. ) Wheelchair Mobility: 6 Indoor Mobility (Ambulation): Needed Some Help Prior Devices Use: Manual wheelchair, Walker Pt reports he is able to mobilize in his home without assist in his wheelchair; describes walking short distances with FWW, typically not alone; reports he is able to "bump over" his curb like step in his home. Reports he is able to toilet and shower transfer without assist except that of a slide board, that he has made. Reports there is typically someone there with him. Reports he walks 1/3 of the time and wc mobiltiy 2/3 of the time. PT Evaluation-Current Subjective Pt agreeable to PT. Reports he is tired as he has taken pain medication. Reports he has an ulcer on his bottom that is painful. Unable to specifically rate and describes it as "hurts really bad; you cant even imagine how bad it hurts." Pt/Family Goals His goal is to increase his strength so he can return home as before. Objective Patient Orientation: Person, Place, Time, Situation Problem Solving: Fair ROM/Strength ROM Lower Extremities WFL Strength Lower Extremities Right LE strength is grossly 3/5 throughout; left LE strength is grossly 2/5 throughout. Integumentary/Posture Integumentary Refer to nursing notes. Pt reports an ulcer on his buttock Bowel Incontinence: No Bladder Incontinence: No Posture shoulders are symmetrical; head is forward and he lacks full hip extension in standing. Neuromuscular (Tone, Coordination, Reflexes) Decreased coordinated movement LE Sensory Vision: Functional Hearing: Functional Hand Dominance: Right Sensation Right Lower Extremit: Impaired Sensation Left Lower Extremity: Impaired Sensation Lower Extremities B LE peripheral neuropathy; impairs sensation Transfers Roll Left to Right (QC): 3 Sit to Lying (QC): 3 (assist with both legs to get into bed. ) Lying to Sitting/Side of Bed(Q: 3 (assist with both legs and light assist with trunk) Sit to Stand (QC): 4 (CGA for safety; skilleed cues for sequncing. ) Chair/Iba-js-Plcjw Xfer(QC): 4 Car Transfer (QC): 3 (assist with legs.) Gait Does the Patient Walk?: Yes Mode of Locomotion: Both Anticipated Mode of Locomotion: Both Walk 10 feet (QC): 3 Walk 50 ft with 2 Turns(QC): 88 Walk 150 ft (QC): 88 Walking 10ft/uneven surface-QC: 88 Distance: 15 ft x 3 Gait Assistive Device: FWW Comments/Gait Description Lacks full hip extension, narrow RAHEEL, decreased step length and decreased foot clearance. Slow gait with knees slightly flexed. Wheelchair Training Does the Pt Use a Wheelchair?: Yes Distance: 50 ft Wheel 50 ft with 2 turns (QC): 3 (assist with turning) Wheel 150 ft (QC): 3 Type of Wheelchair: Manual Pt reports his wc has knobs that help him to propel his chair; this chair does not. Stairs 1 Step (curb) (QC): 88 4 Steps (QC): 88 12 Steps (QC): 88 Unsafe to attempt stairs and pt does not go up/down steps in an upright manner. Balance Sitting Static: Good Sitting Dynamic: Good Standing Static: Fair Standing Dynamic: Fair Picking up an Object (QC): 88 Treatment Functional sit to stand transfer training with cues for sequencing and safety. Gait training with focus on posture and step length. Pt in bed post treatment with needs met. Assessment/Needs Pt presents with need for upcoming spine surgeries that he describes as cervical and lumbar. In the meantime, he experienced medical issues that has left him with decreased functional strength and balance that limits transfers, bed mobilty and gait; in addition, his functional activity tolerance is impaired and wheelchair mobiltiy is difficult. He will benefit from skilled PT services to address functional strength and mobility to allow him to return home as he was before Rehab Potential: Good PT Process Engineering Manager Goals Nursing Home Goals PT Nursing Home Goals Time Frame: Sep 17, 2019 Sit to Lying (QC): 6 Lying-Sitting on Side/Bed(QC): 6 Sit to Stand (QC): 6 Roll Left to Right (QC): 6 Chair/Djl-ql-Qvqeg Xfer(QC): 6 Car Transfer (QC): 5 Does the Patient Walk: Yes Walk 10 feet (QC): 6 Walk 10ft-Uneven Surface(QC): 6 Walk 50ft with 2 Turns (QC): 5 Walk 150 ft (QC): 9 Gait Assistive Device: FWW Does the Pt use WC or Scooter?: Yes Wheel 50 feet with 2 turns (QC: 6 1 Step (curb) (QC): 4 (at a wheelchair level) 4 Steps (QC): 9 12 Steps (QC): 9 Picking up an Object (QC): 9 wheel chair 150 ft QC goal is 6 PT Plan Problem List Problem List: Activity Tolerance, Functional Strength, Safety, Balance, Gait, Transfer, Bed Mobility Treatment/Plan Treatment Plan: Continue Plan of Care Treatment Plan: Bed Mobility, Education, Functional Activity Melva, Functional Strength, Group Therapy, Gait, Safety, Therapeutic Exercise, Transfers, Other (wc mobility) Treatment Duration: Sep 17, 2019 Frequency: At least 5 of 7 days/Wk (IRF) Estimated Hrs Per Day: 1.5 hours per day Patient and/or Family Agrees t: Yes Safety Risks/Education Patient Education: Transfer Techniques, Safety Issues Teaching Recipient: Patient Teaching Methods: Demonstration, Discussion Response to Teaching: Reinforcement Needed Discharge Recommendations Therapy Discharge Recommendati: Post Acute PT Time/GCodes Time In: 1240 Time Out: 1310 Total Billed Treatment Time: 30 Total Billed Treatment visit EVM 15 FA 15 TEDDY SHEN PT Aug 20, 2019 13:57
--- NOTE | 2019-08-20 14:00 | NUR ---
DR. PONCE HERE TO SEE PATIENT.
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
--- NOTE | 2019-08-20 16:02 | ST Cognitive Linguistic Eval ---
Speech Evaluation-General Medical Diagnosis debility Onset Date: Aug 20, 2019 Therapy Diagnosis Therapy Diagnosis: Cognitive-communication Precautions Precautions: Fall Precautions/Isolations: Standard Precautions Referral Referring Physician: Dr. Jeffries Reason for Referral: Evaluation/Treatment Medical History Pertinent Medical History: CAD, DM, [place] CAD, DM, [place] Current History debility Reviewed History: Yes Social History Home: Single Level Current Living Status: Spouse Speech PLF-Current Status Prior Level of Function Patient lives with his in their home where he was independent for most of his daily needs. Subjective Patient was pleasant and cooperative with the cognitive assessment. Language Eval: Auditory Comprehends Simple Yes/No Ques: Functional Indent/Objects Multiple [place]: Functional Ident/Pics in Multiple [place]: Functional Follows 1-Step Commands: Functional Follows Complex Directions: Functional Follows General Conversations: Functional Language Eval: Verbal Language Completes Spontaneous Greeting: Functional Produces Auto, Serial Info: Functional Imitates Simple Words/Phrases: Functional Word Finding: Functional Requests Basic Needs: Functional States Basic Personal Info: Functional Expresses Complex Ideas: Functional Objective Cognitive Domain Attention: WNL Memory: Mild Problem Solving: Functional Executive Functions: WNL Visuospatial Skills: WNL Composite Severity Rating: WNL Clock Drawing Severity Rating: WNL Objective Formal/Standardized Tests [facility] Mental Status ([facility]) Results 28/30, within normal range of function Oral Motor/Speech Production Within Functional Limits Impression Patient is a pleasant 54 year old man who was admitted to the ARU for [place]. The patient was given the SLUMS with a score of 28/30. Patient is within the normal range of function and does not require skilled ST services at this time. Speech Patient Assess Expression of Ideas/Wants: Expression (4) Understanding Verbal Content: Understands (4) Brief Interview-Mental Status: Yes Repetition of Three Words: Three (3) Temporal Orientation: Year: Correct (3) Temporal Orientation: Month: Accurate within 5 days(2) Temporal Orientation: Day: Correct (1) Recall : Wear to say "Sock": Yes, no cue required (2) Recall : Color: Yes, no cue required (2) Recall : Bed: Yes,after cueing (1) Memory/Recall Ability: Current season, That he or she is in a hsp/hsp unit Speech-Plan Patient/Family Goals Patient/Family Goals: The patient plans on returning home with his post rehab. Treatment Plan Speech Therapy Treatment Plan: Discontinue ST Patient does not require skilled ST at this time. Treatment Duration: Aug 20, 2019 Frequency: 1 time per week Estimated Hrs Per Day: .25 hour per day Rehab Potential: Good Barriers to Learning: None identified Pt/Family Agrees to Plan: Yes Safety Risks/Education Teaching Recipient: Patient, Significant Other Teaching Methods: Discussion Response to Teaching: Verbalize Understanding Education Topics Provided: Safety within his room and communication of his wants/needs. Time Speech Therapy Time In: 15:40 Speech Therapy Time Out: 15:55 Total Billed Time: 15 Billed Treatment Time 1, SPSNDCOMP ISRA Evangelista Aug 20, 2019 16:02
[2019-08-20] MEDS: inSUlin ASPART (NovoLOG) 1 UNIT/0.01 ML (CHARGE PER UNIT) SC SCH ×2 (17:00→22:00)
[2019-08-20 17:07] VITALS: BP 124/80
[2019-08-20] MEDS ORDERED: CATHETER FLUSH 10 ML SYR IV PRN (17:15)
[2019-08-20] MEDS ORDERED: FLU QUADRIvalent (5+ YOA) 2019-2020 (AFLURIA) 0.5 ML IM ONE (17:30)
[2019-08-20] MEDS: HYDROcodone/APAP 10 MG/325 MG (LORTAB) TAB PO PRN (17:59)
--- NOTE | 2019-08-20 18:00 | NUR ---
HAS BEEN SITTING UP IN RECLINER WITH PADDED CUSHION MOST OF AFTERNOON AND CELEBRATING HIS BIRTHDAY WITH HIS FAMILY. ALL FAMILY IN DINING AREA. HAS BEEN LEANING TO SIDE TO SIDE IN CHAIR AND WILL GET BACK TO BED WHEN FINISHED WITH DINNER.
--- NOTE | 2019-08-20 19:25 | NUR ---
TO BRING CPAP MACHINE FROM HOME TOMORROW. PATIENT ADMITS WILL SLEEP MUCH BETTER WITH IT.
[2019-08-20] MEDS: SENNA W/DOCUSATE (SENOKOT S) TABLET PO SCH (20:13)
[2019-08-20] MEDS: DIVALPROEX 500 MG DELAYED RELEASE (DEPAKOTE) TAB PO SCH (20:13)
[2019-08-20] MEDS: PANTOPRAZOLE 40 MG (PROTONIX) TAB PO SCH (20:13)
[2019-08-20] MEDS: CATHETER FLUSH 10 ML SYR IV SCH (20:14)
[2019-08-21] MEDS: HYDROcodone/APAP 10 MG/325 MG (LORTAB) TAB PO PRN ×2 (03:38→14:18)
[2019-08-21 05:08] VITALS: BP 144/88
[2019-08-21] MEDS: CATHETER FLUSH 10 ML SYR IV SCH ×3 (05:56→20:48)
[2019-08-21] MEDS: PANTOPRAZOLE 40 MG (PROTONIX) TAB PO SCH ×2 (05:56→20:31)
[2019-08-21 06:01] LABS: BASOPHILS % (AUTO) 0 % (0-10); EOSINOPHILS % (AUTO) 1 % (0-10); HEMATOCRIT 28 % (40-54); HEMOGLOBIN 9.1 G/DL (13.3-17.7); LYMPHOCYTES # (AUTO) 1.3 X 10^3 (1.0-4.0); LYMPHOCYTES % (AUTO) 23 % (12-44); MEAN CORPUSCULAR HEMOGLOBIN 29 PG (25-34); MEAN CORPUSCULAR HGB CONC 33 G/DL (32-36); MEAN CORPUSCULAR VOLUME 89 FL (80-99); MEAN PLATELET VOLUME 8.1 FL (7.4-10.4); MONOCYTES # (AUTO) 0.6 X 10^3 (0.0-1.0); MONOCYTES % (AUTO) 11 % (0-12); NEUTROPHILS # (AUTO) 3.8 X 10^3 (1.8-7.8); NEUTROPHILS % (AUTO) 66 % (42-75); PLATELET COUNT 247 10^3/uL (130-400); RED CELL DISTRIBUTION WIDTH 15.1 % (10.0-14.5); WHITE BLOOD COUNT 5.7 10^3/uL (4.3-11.0)
[2019-08-21 06:33] LABS: ALANINE AMINOTRANSFERASE 23 U/L (0-55); ALBUMIN 2.6 GM/DL (3.2-4.5); ALKALINE PHOSPHATASE 50 U/L (40-136); BILIRUBIN,TOTAL 0.2 MG/DL (0.1-1.0); BUN/CREATININE RATIO 13; CALCIUM 8.1 MG/DL (8.5-10.1); CARBON DIOXIDE 25 MMOL/L (21-32); CHLORIDE 110 MMOL/L (98-107); CREATININE SERUM 0.67 MG/DL (0.60-1.30); GFR ESTIMATED > 60; GLUCOSE 142 MG/DL (70-105); POTASSIUM 3.6 MMOL/L (3.6-5.0); SODIUM 144 MMOL/L (135-145)
[2019-08-21] MEDS: inSUlin ASPART (NovoLOG) 1 UNIT/0.01 ML (CHARGE PER UNIT) SC SCH ×4 (06:34→20:44)
--- NOTE | 2019-08-21 08:02 | PM&R H&P / Post Admit Assess ---
History of Present Illness HPI/Chief Complaint CC: Debility following septic shock HPI: This is a 54-year-old white male who presents to inpatient rehabilitation in need of extensive strengthening due to weakness following a septic shock episode from UTI. He has a history of cauda equina syndrome and spine injuries resulting in chronic debility who received aggressive critical care management for septic shock from UTI. At this current time patient is able to participate in therapy and return to prior level of functioning after intensive rehabilitation course of walking around and walker and he reports that he spends a lot of time in his wheelchair at home also. He is supportive in agreement for inpatient rehabilitation status. Acute Care DC summary: Hospital course: Pt had a complex hospital course for 4 days after he was admitted of septic shock and UTI. Pt was placed in the ICU, central line placed and aggressive IV fluid initiated along with Dr. Rodriguez consultation and cardiology was also consulted for elevated Troponin. Dr. Lovelace is regular compliance field technician but Dr. Franklin did confer and review records. Upon further evaluation Lifevest was recommended and he will think about that but his ejection fraction has suffered a significant decline since last seen. Proteus on urine culture and Rocephin will bit required 1g IV daily or 3 days and pt was deemed stable but in need of strengthening in order to be successful at home and will be discharged in the very near future after completing rehab course. Source: patient, family, RN/MD, old records Exam Limitations: no limitations Date Seen 08/21/19 Time Seen by a Provider: 08:00 Attending Physician Amanda Spencer DO PCP [facility] Referring Physician Date of Admission Aug 20, 2019 at 12:40 Home Medications & Allergies Home Medications Reviewed patient Home Medication Reconciliation performed by pharmacy medication reconciliations conveyor technician and/or nursing. Patients Allergies have been reviewed. 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) Alcohol Use: Denies Use Recreational Drug Use: No Smoking Status: Former Smoker Type Used: Pipe 2nd Hand Smoke Exposure: No Physical Abuse Screen: No Sexual Abuse: No Recent Foreign Travel: No Contact w/other who traveled: No Recent Hopitalizations: No Recent Infectious Disease Expo: No Immunizations Up To Date Date of Pneumonia Vaccine: Aug 17, 2015 Date of Influenza Vaccine: Aug 17, 2017 Seasonal Allergies Seasonal Allergies: No Past Medical History Surgeries: Orthopedic Cardiac: Cardiomyopathy, Chronic Edema/Swelling, Coronary Artery Disease, Hypertension Neurological: Neuropathy, Paralysis, Spinal Cord Injury Genitourinary: Bladder Infection, Renal Failure Gastrointestinal: Chronic Constipation, Ulcer Musculoskeletal: Arthritis, Chronic Back Pain Endocrine: Diabetes, Non-Insulin dep Psychosocial: Bipolar History of Blood Disorders: No Family History Cardiovascular disease G8 SISTER Diabetes mellitus G8 SISTER Review of Systems Constitutional: see HPI, malaise, weakness EENTM: no symptoms reported Respiratory: no symptoms reported Cardiovascular: no symptoms reported Gastrointestinal: no symptoms reported Genitourinary: no symptoms reported Musculoskeletal: back pain, joint pain Skin: no symptoms reported Psychiatric/Neurological: Anxiety, Depressed, Emotional Problems Physical Exam Exam Vital Signs Vital Signs Date Time Temp Pulse Resp B/P (MAP) Pulse Ox O2 Delivery O2 Flow Rate FiO2 08/21/19 09:42 Room Air 08/21/19 09:07 80 133/85 (101) 08/21/19 05:08 36.6 20 97 2.00 Capillary Refill : General Appearance: No Apparent Distress, WD/WN, Chronically ill HEENT: PERRL/EOMI, Normal ENT Inspection, Pharynx Normal, Moist Mucous Membranes Neck: Full Range of Motion, Normal Inspection, Non Tender, Supple Respiratory: Chest Non Tender, Lungs Clear, Normal Breath Sounds, No Accessory Muscle Use, No Respiratory Distress Cardiovascular: Regular Rate, Rhythm, No Gallop, No JVD, No Murmur Gastrointestinal: Normal Bowel Sounds, No Organomegaly, No Pulsatile Mass, Non Tender, Soft Back: Normal Inspection, No CVA Tenderness, No Vertebral Tenderness Extremity: Normal Capillary Refill, Normal Inspection, Normal Range of Motion, Non Tender, No Calf Tenderness, Pedal Edema Neurologic/Psychiatric: Alert, Oriented x3, No Motor/Sensory Deficits (generalized weakness all extremities), Normal Mood/Affect, concrete puddler II-XII Norm as Tested Skin: Normal Color, Warm/Dry Lymphatic: No Adenopathy Results Results/Procedures Labs Laboratory Tests 08/21/19 05:22 Patient resulted labs reviewed. Assessment/Plan Assessment and Plan Assess & Plan/Chief Complaint Assessment: Debility Status post septic shock History of central spinal cord syndrome resulting in chronic debility and weakness UTI needs 3 days of Rocephin IV and then will have completed regimen CAD Ischemic cardiomyopathy may need LifeVest Elevated troponin Volume overload Decubitus ulcer Chronic wounds on the legs Chronic edema Bipolar disorder Plan: Home meds Appreciate cardiology Monitor volume status Complete IV antibiotics Inpatient rehabilitation protocol (1) Debility Status: Acute (2) Former smoker (3) DAISY on CPAP (4) Wheelchair bound (5) CHF (congestive heart failure) (6) Edema (7) Delirium (8) CAD (coronary artery disease) (9) Bipolar disorder (10) Septic shock Status: Acute (11) UTI (urinary tract infection) Status: Acute (12) Sacral pressure ulcer Status: Acute (13) Central cord syndrome Status: Acute Post Admission Physician Asses Date seen by provider: Aug 21, 2019 Time seen by provider: 08:00 Admisison Dx: (1) Debility Status: Acute The preadmission screen agrees with the post admission assessment that the patient is a good candidate for inpatient rehabilitation. The patient will have a comprehensive program of inpatient rehabilitation with a goal of maximizing level of functional independence prior to discharge home with . The patient will have PT/OT ninety minutes per day, each discipline, five days a week for gait, strengthening, conditioning, balance, ADLs, any patient/family/caregiver training as necessary. Speech therapy to do cognitive assessment and treat as indicated. Rehabilitation nursing to assist with bowel, bladder, skin, wound care, medication administration, pain management. Pmo Manager to assist with discharge planning, community reentry. SCD's for DVT prophylaxis. He appears to be well motivated to participate in three hours of therapy a day. He should be able to tolerate three hours of therapy a day from a medical standpoint. He should benefit from the three hours of therapy a day. He has a reasonable discharge plan, reasonable discharge rehabilitation goals and a supportive family. He has various comorbidities that need to be closely monitored with medications and treatments adjusted on a daily basis as needed. These include: See list Barriers to discharge for this patient who had been independent prior to this are for him to be modified independent to supervision for ADLs and mobility skills prior to discharge home with , so as to lessen the burden of the caregivers. Risks for this patient include: 1. Fall 2. Fracture 3. DVT 4. Pulmonary embolism 5. Wound infection 6. Skin breakdown 7. Contractures 8. Poorly controlled pain 9. Urinary retention 10. UTI 11. Respiratory infection 12. Aspiration Estimated Length of Stay: 10 days Prognosis: Rehab prognosis appears good for goal of discharge home with modified independent to supervision for ADLs and mobility skills. AMANDA SPENCER DO Aug 21, 2019 08:02
[2019-08-21] MEDS: SERTRALINE 100 MG (ZOLOFT) TAB PO SCH (08:07)
[2019-08-21] MEDS: CLOPIDOGREL 75 MG (PLAVIX) TABLET PO SCH (08:07)
[2019-08-21] MEDS: DIVALPROEX 500 MG DELAYED RELEASE (DEPAKOTE) TAB PO SCH ×2 (08:07→20:31)
[2019-08-21] MEDS: ASPIRIN 81 MG CHEW (CHILDREN'S ASA) PO SCH (08:07)
[2019-08-21] MEDS: cefTRIAXone FOR IV USE 1,000 MG in WATER (STERILE) FOR INJECTION 10 ML IV SCH (08:08)
[2019-08-21] MEDS: VRAYLAR 1.5 MG CAPSULE PO SCH (08:08)
[2019-08-21] MEDS: SENNA W/DOCUSATE (SENOKOT S) TABLET PO SCH ×2 (08:09→20:31)
[2019-08-21] MEDS: ENOXAPARIN 40 MG/0.4 ML (LOVENOX) SYR SC SCH (08:09)
--- NOTE | 2019-08-21 08:12 | Cardiology Progress Note ---
Subjective Date Seen by Provider: Aug 21, 2019 Time Seen by Provider: 08:11 Subjective/Events-last exam Patient is sitting up in chair. Reports some dyspnea on exertion, denies any chest pain. Review of Systems General: No Night Sweats, No Fatigue, No Malaise HEENT: No Visual Changes, No Dysphasia Pulmonary: Dyspnea; No Cough Cardiovascular: No: Chest Pain, Palpitations, Edema Gastrointestinal: No: Nausea, Vomiting, Abdominal Pain Genitourinary: No Dysuria, No Frequency Musculoskeletal: No: neck pain, back pain Neurological: No: Weakness, Numbness, Change in speech, Confusion Objective-Cardiology Exam Last Set of Vital Signs Vital Signs 08/21/19 08/21/19 05:08 07:00 Temp 36.6 Pulse 101 Resp 20 B/P (MAP) 144/88 (106) Pulse Ox 97 O2 Delivery Nasal Cannula O2 Flow Rate 2.00 Capillary Refill : I&O Intake and Output 08/21/19 00:00 Intake Total 600 ml Output Total 250 ml Balance 350 ml Intake Oral 600 ml Output Urine Total 250 ml # Voids 2 # Bowel Movements 2 Daily Weight Change No General: Alert, Oriented X3, Cooperative HEENT: Atraumatic, PERRLA Neck: Supple, No JVD, No Thyromegaly Lungs: Clear to Auscultation, Normal Air Movement Heart: Regular Rate, Normal S1, Normal S2, No Murmurs Abdomen: Normal Bowel Sounds, Soft, No Tenderness, No Hepatosplenomegaly, No Masses Extremities: No Clubbing, No Cyanosis, No Edema, Normal Pulses, No Tenderness/Swelling Skin: No Rashes, No Breakdown, No Significant Lesion Neuro: Normal Gait, Normal Speech, Strength at 5/5 X4 Ext, Normal Tone, Sensation Intact Psych/Mental Status: Mental Status NL, Mood NL Results Lab Laboratory Tests 08/21/19 05:22 A/P-Cardiology Admission Diagnosis UTI NSTEMI CAD CHF Assessment/Plan Sepsis, UTI, received antibiotic, improved, management per hospitalist services. Congestive heart failure, chronic compensated left ventricular systolic dysfunction, ischemic cardiomyopathy, ejection fraction 25-30 percent, continue with medical therapy and will add LifeVest, discussed with the and the patient regarding the possibility of ICD in the future Coronary artery disease, family reported that he had a cardiac catheterization with Dr. Lovelace in July 2019 had a stent to one artery and he had other diseased arteries that were inoperable, treated medically. Continue to monitor . Maintained on Plavix and ASA Elevated troponin level, non-ST elevation myocardial infarction, type II MS secondary to hypotension and extensive coronary artery disease, continue conservative management Anemia, continue to monitor closely stool for occult blood positive, patient will need to be on aspirin and Plavix at this point, he had a recent stent Hyperlipidemia, maintained on Lipitor 80 mg daily C-spine stenosis, patient was scheduled for surgery, during anesthesia induction has severe hypotension, surgery was canceled and patient was taken to the catheter lab and had a stent done as described above, still having back and neck pain Bipolar disorder, confusion, chronic, managed by primary care team Generalized debility/weakness- continue PT/OT Patient was seen and evaluated with Viola, examination performed, management plan was discussed, agree with the current scribed note, I made few changes to the note using Italic font Patient is laying down in bed, denied any chest pain, feeling better Having generalized weakness Continue on current medication and continue aspirin and Plavix and monitor Clinical Quality Measures DVT/VTE Risk/Contraindication: Risk Factor Score Per Nursin RFS Level Per Nursing on Admit: 3=High VIOLA NGO Aug 21, 2019 08:12 ALINA GREGG MD Aug 21, 2019 09:01
[2019-08-21 09:07] VITALS: BP 133/85
[2019-08-21] MEDS: CARVEDILOL 6.25 MG (COREG) TAB PO SCH ×2 (09:08→20:31)
[2019-08-21] MEDS: LOSARTAN 25 MG (COZAAR) TAB PO SCH (09:08)
--- NOTE | 2019-08-21 09:37 | Pulmonary Progress Note ---
Standard Progress Note Progress Notes Date Seen by Provider: Aug 21, 2019 Time Seen by Provider: 09:10 pt is supine and asleep. Awakens easily and drifts off during conversation. He does report that he has a cpap that his is bringing and that he wears it nightly. He reports a smoking a pipe daily. He denies any shortness of breath currently. Assessment & Plan Recent hosp for Sepsis, UTI, and cardiomyopathy with stents. DAISY -pt is having bring home cpap -Echo shows EF 30-35% -will be getting life vest -is on room air Admission notes, pulmonary progress notes, images and labs reviewed for continued care. LUISA SCHRADER APRN Aug 21, 2019 09:37
--- NOTE | 2019-08-21 10:47 | Progress Note ---
[facility] 08/21/19 1046: Progress Note * Pt transferred to rehab unit yesterday afternoon * He is excited to be moving closer towards the door home * He is being fitted for a LifeVest likely today * He is motivated to be in rehab and be able to use a walker more than the wheelchair he had been in prior to admission * His legs were slightly more swollen today than yesterday, and he reports wearing the sequential compression devices the entire night * He does report any other problems or complaints MAANDA SPENCER DO 08/21/190: Supervisory-Addendum Brief Verification & Attestation Participated in pt care: history, MDM, physical Personally performed: exam, history, MDM, supervision of care Care discussed with: Medical Student Procedures: n/a Results interpretation: Verified all documentation Verification and Attestation of Medical Student E/M Service A medical student performed and documented this service in my presence. I reviewed and verified all information documented by the medical student and made modifications to such information, when appropriate. I personally performed the physical exam and medical decision making. Amanda Spencer, Aug 21, 2019,21:10 [facility] Aug 21, 2019 10:46 AMANDA SPENCER DO Aug 21, 2019 21:10
--- NOTE | 2019-08-21 12:19 | Physical Therapy Daily Note ---
PT Daily Note-Current Subjective Pt laying Supine in bed upon arrival. Pt agrees to PT. Pt is very drowsy during tx and needs VC to stay on task, keep from sleeping. Pain Numeric Pain Scale: 5-Moderate Pain Location Body Site: Sacrum Pain Description: Ache Mental Status Patient Orientation: Person, Place, Situation Transfers SCALE: Activities may be completed with or without assistive devices. 8-Yqzkioxptx-nygpbgr completes the activity by him/herself with no assistance from a helper. 5-Set-up or Clean-up Assistance-helper sets up or cleans up; patient completes activity. [place] assists only prior to or following the activity. 4-Supervision or Touching Assistance-helper provides verbal cues and/or touching/steadying and/or contact guard assistance as patient completes activity. Assistance may be provided throughout the activity or intermittently. 3-Partial/Moderate Assistance-helper does LESS THAN HALF the effort. [place] lif ts, holds or supports trunk or limbs, but provides less than half the effort. 2-Substantial/Maximal Assistance-helper does MORE THAN HALF the effort. [place] lifts or holds trunk or limbs and provides more than half the effort. 1-Jbatfybxk-gokuzp does ALL the effort. Patient does none of the effort to complete the activity. Or, the assistance of 2 or more helpers is required for the patient to complete the activity. If activity was not attempted, code reason: 7-Patient Refused. 9-Not Applicable-not attempted and the patient did not perform the activity before the current illness, exacerbation or injury. 10-Not Attempted due to Environmental Limitations-(lack of equipment, weather restraints, etc.). 88-Not Attempted due to Medical Conditions or Safety Concerns. Roll Left to Right (QC): 4 Sit to Lying (QC): 4 Sit to Stand (QC): 4 Weight Bearing Weight Bearing/Tolerated Weight Bearing/Tolerated Exercises Supine Ex: Ankle pumps, Quad Set, Heel Slides, Straight leg raise, Hip abd/add Supine Reps: 20 Seated Therapy Exercises: Ankle pumps, Long arc quads, Hip flexion, Kicking activity, Hamstring Curls Seated Reps: 20 Treatments Pt very drowsy upon arrival, reports not sleeping well last night so PILE DRIVER ENGINEER continues to have to wake pt up during tx. Pt completes Supine EX with RB as needed then transfers to EOB. After RB for dizziness, pt completes Seated EX. OT arrives at end of tx. Pt has all needs met. Assessment Current Status: Fair Progress Pt's drowsiness limits tx as pt needs continually to be woken up. PT Short Term Goals Short Term Goals Wheelchair Distance: 50 ft PT Alf Goals Alf Goals PT Alf Goals Time Frame: Sep 17, 2019 Sit to Lying (QC): 6 Lying-Sitting on Side/Bed(QC): 6 Sit to Stand (QC): 6 Roll Left to Right (QC): 6 Chair/Chx-wo-Yphdd Xfer(QC): 6 Car Transfer (QC): 5 Does the Patient Walk: Yes Walk 10 feet (QC): 6 Walk 10ft-Uneven Surface(QC): 6 Walk 50ft with 2 Turns (QC): 5 Walk 150 ft (QC): 9 Gait Assistive Device: FWW Does the Pt use WC or Scooter?: Yes Wheel 50 feet with 2 turns (QC: 6 1 Step (curb) (QC): 4 (at a wheelchair level) 4 Steps (QC): 9 12 Steps (QC): 9 Picking up an Object (QC): 9 PT Plan Problem List Problem List: Activity Tolerance, Functional Strength, Safety, Balance, Gait, Transfer Treatment/Plan Treatment Plan: Continue Plan of Care Treatment Plan: Bed Mobility, Education, Functional Activity Melva, Functional Strength, Group Therapy, Gait, Safety, Therapeutic Exercise, Transfers, Other (wc mobility) Treatment Duration: Sep 17, 2019 Frequency: At least 5 of 7 days/Wk (IRF) Estimated Hrs Per Day: 1.5 hours per day Patient and/or Family Agrees t: Yes Safety Risks/Education Patient Education: Transfer Techniques, Correct Positioning, Safety Issues Teaching Recipient: Patient Teaching Methods: Discussion Response to Teaching: Verbalize Understanding Time/GCodes Time In: 930 Time Out: 1030 Total Billed Treatment Time: 60 Total Billed Treatment 1, FA (15m) & EX x3 (45m) YOLETTE BALLARD PILE DRIVER ENGINEER Aug 21, 2019 12:19
--- NOTE | 2019-08-21 12:56 | Occupational Ther Daily Note ---
OT Current Status-Daily Note Subjective Pt seen EOB, PT present. Pt states minimal pain, increases grimacing and vocalizations with bending motions. Pt agreeable to OT tx session. Mental Status/Objective Patient Orientation: Normal For Age ADL-Treatment Therapy Code Descriptions/Definitions Functional [place] Measure: 0=Not Assessed/NA 4=Minimal Assistance 1=Total Assistance 5=Supervision or Setup 2=Maximal Assistance 6=Modified [place] 3=Moderate Assistance 7=Complete IndependenceSCALE: Activities may be completed with or without assistive devices. 1-Ptlbebckxk-imjqmlu completes the activity by him/herself with no assistance from a helper. 5-Set-up or Clean-up Assistance-helper sets up or cleans up; patient completes activity. [place] assists only prior to or following the activity. 4-Supervision or Touching Assistance-helper provides verbal cues and/or touching/steadying and/or contact guard assistance as patient completes activity. Assistance may be provided throughout the activity or intermittently. 3-Partial/Moderate Assistance-helper does LESS THAN HALF the effort. Melvin lifts, holds or supports trunk or limbs, but provides less than half the effort. 2-Substantial/Maximal Assistance-helper does MORE THAN HALF the effort. Melvin lifts or holds trunk or limbs and provides more than half the effort. 4-Uldgxnkyx-xhjdlr does ALL the effort. Patient does none of the effort to complete the activity. Or, the assistance of 2 or more helpers is required for the patient to complete the activity. If activity was not attempted, code reason: 7-Patient Refused. 9-Not Applicable-not attempted and the patient did not perform the activity before the current illness, exacerbation or injury. 10-Not Attempted due to Environmental Limitations-(lack of equipment, weather restraints, etc.). 88-Not Attempted due to Medical Conditions or Safety Concerns. Eating (QC): 6 (Utilizes built up handles for utensil use.) Shower/Bathe Self (QC): 3 (Nursing notified of shower. Nursing states she will call ICU for telemetry removal. Pt transfers to shower bench with CGA. Pt able to complete showering with increased time. While reaching BLE, pt expresses pain. Pt requires assist in stance with bottom and back. Pt dries all areas with success. Pt brought in long handled sponge for use at end of session. ) Upper Body Dressing (QC): 6 Lower Body Dressing (QC): 2 (Pt educated on completing LLE threading prior to R due to decreased strength of LLE and difficulty maintaining hip flexion during dresssing. Pt educated on senior systems software engineer during ADL tasks. Pt able to doff all LE clothing with CGA and use of senior systems software engineer. Pt dons clothes with assist for LLE undergarment and pant threading. Pt able to thread RLE with increased time. Pt completes R sock without AE. Pt educated on sock korin, attempts donning socks with sock aide, aide too small for pt's foot. Pt was brought in new sock aide, will train soon.) Toilet Transfer (QC): 4 (CGA in stance during urination. ) Other Treatment Pt completes ADL tasks of showering, toileting, grooming (combing hair, QC 6), and dressing with AE training. Pt educated on HEP for UE strengthening/ endurance training with red theraband. Pt states understanding of all exercises with exercises modeled for pt during pt's eating lunch. Pt left in recliner chair with call light in reach and all needs met. Nursing notified of ICU called for telemetry donning. Education OT Patient Education: Correct positioning, Exercise program, Home exercise program, Modified ADL techniques, Purpose of tx/functional activities, Safety issues, Transfer techniques, Use of adapted equipment Teaching Recipient: Patient Teaching Methods: Demonstration, Discussion Response to Teaching: Verbalize Understanding, Return Demonstration OT Short Term Goals Short Term Goals Grooming(FIM): 4 Bathing(FIM): 3 Toileting(FIM): 3 1=Demonstrate adherence to instructed precautions during ADL tasks. 2=Patient will verbalize/demonstrate understanding of assistive devices/modifications for ADL. 3=Patient will improve strength/tolerance for activity to enable patient to pe rform ADL's. OT Jail Goals Naphthalene Operator Goals Eating (QC): 6 Oral Hygiene (QC): 6 Shower/Bathe Self (QC): 4 Upper Body Dressing (QC): 6 Lower Body Dressing (QC): 4 On/Off Footwear (QC): 4 Toileting Hygiene (QC): 5 Toilet/Commode Transfer (QC): 4 Additional Goals: 1-Demonstrate ADL Tasks, 2-Verbalize Understanding, 3- ImproveStrength/Melva 1=Demonstrate adherence to instructed precautions during ADL tasks. 2=Patient will verbalize/demonstrate understanding of assistive devices/modifications for ADL. 3=Patient will improve strength/tolerance for activity to enable patient to perform ADL's. OT Education/Plan Problem List/Assessment Assessment: Decreased Activ Tolerance, Decreased Safety Aware, Decreased UE Strength, Impaired Bed Mobility, Impaired Funct Balance, Impaired I ADL's, Impaired Self-Care Skills Discharge Recommendations Plan/Recommendations: Continue POC Treatment Plan/Plan of Care Treatment,Training & Education: Yes Patient would benefit from OT for education, treatment and training to promote independence in ADL's, mobility, safety and/or upper extremity function for ADL's. Plan of Care: ADL Retraining, Caregiver Training, Cognitive Retraining, Conc urrent Therapy, Functional Mobility, Group Exercise/Act as Ind, UE Funct Exercise/Act Treatment Duration: Sep 03, 2019 Frequency: At least 5 of 7 days/Wk (IRF) Estimated Hrs Per Day: 1.5 hours per day Agreement: Yes Rehab Potential: Fair Time/GCodes Start Time: 10:35 Stop Time: 12:10 Total Time Billed (hr/min): 95 Billed Treatment Time 1, ADLx6 (95) STEPAN SALEEM OTR Aug 21, 2019 12:55
--- NOTE | 2019-08-21 13:05 | NUR ---
Met with patient to complete initial assessment. Patient admitted to ARU on 08/20/19 after being hospitalized with UTI, septic shock, elevated troponin, NSTEMI and CHF. Prior to hospitalization the patient was living with his spouse in [place], [place]. He reported the house is a single-level home with approximately 2 entry stairs. Patient reported that his spouse was assisting him with bathing, upper and lower body dressing and transfers in/out of shower. The patient reported he was able to ambulate short distances in the home using a FWW. Patient reported having the following equipment: bath chair, grab bars in bathroom, manual wheelchair and FWW. Patient identified Gladys Cornejo, spouse, as his primary contact. She can be reached at . Patient confirmed that he currently does not have insurance coverage. He stated his PCP is GUERA Kennedy, at the [facility] and his preferred pharmacy is [facility]. The purpose of the weekly team conference was discussed and the patient verbalized understanding.
--- NOTE | 2019-08-21 13:57 | Occupational Ther Daily Note ---
OT Current Status-Daily Note Subjective Pt alert, lying in bed. Pt agrees to therapy. No c/o pain at this time. Mental Status/Objective Patient Orientation: Person, Place, Time, Situation Attachments: IV ADL-Treatment Supine to EOB using elevated HOB and assist for L LE to scoot off of bed. Pt ambulated with min A, 1 LOB assist for balance recovery, to bathroom. Pt stood at toilet to urinate. Pt manipulate clothing and was able to stand with min A for safety. Pt then ambulated back to room and sat in recliner. After therapy, pt sitting in recliner with call light/phone in reach. All needs met in room. Therapy Code Descriptions/Definitions Functional [place] Measure: 0=Not Assessed/NA 4=Minimal Assistance 1=Total Assistance 5=Supervision or Setup 2=Maximal Assistance 6=Modified [place] 3=Moderate Assistance 7=Complete IndependenceSCALE: Activities may be completed with or without assistive devices. 9-Tjsdbqeace-lovfqzs completes the activity by him/herself with no assistance from a helper. 5-Set-up or Clean-up Assistance-helper sets up or cleans up; patient completes activity. [place] assists only prior to or following the activity. 4-Supervision or Touching Assistance-helper provides verbal cues and/or touching/steadying and/or contact guard assistance as patient completes activity . Assistance may be provided throughout the activity or intermittently. 3-Partial/Moderate Assistance-helper does LESS THAN HALF the effort. [place] lifts, holds or supports trunk or limbs, but provides less than half the effort. 2-Substantial/Maximal Assistance-helper does MORE THAN HALF the effort. [place] lifts or holds trunk or limbs and provides more than half the effort. 0-Uwlcxjdoh-crzgcf does ALL the effort. Patient does none of the effort to complete the activity. Or, the assistance of 2 or more helpers is required for the patient to complete the activity. If activity was not attempted, code reason: 7-Patient Refused. 9-Not Applicable-not attempted and the patient did not perform the activity before the current illness, exacerbation or injury. 10-Not Attempted due to Environmental Limitations-(lack of equipment, weather restraints, etc.). 88-Not Attempted due to Medical Conditions or Safety Concerns. OT Short Term Goals Short Term Goals Grooming(FIM): 4 Bathing(FIM): 3 Toileting(FIM): 3 1=Demonstrate adherence to instructed precautions during ADL tasks. 2=Patient will verbalize/demonstrate understanding of assistive devices/modifications for ADL. 3=Patient will improve strength/tolerance for activity to enable patient to perform ADL's. OT Supervisor Beam Department Goals Fpc Goals Eating (QC): 6 Oral Hygiene (QC): 6 Shower/Bathe Self (QC): 4 Upper Body Dressing (QC): 6 Lower Body Dressing (QC): 4 On/Off Footwear (QC): 4 Toileting Hygiene (QC): 5 Toilet/Commode Transfer (QC): 4 Additional Goals: 1-Demonstrate ADL Tasks, 2-Verbalize Understanding, 3- ImproveStrength/Melva 1=Demonstrate adherence to instructed precautions during ADL tasks. 2=Patient will verbalize/demonstrate understanding of assistive devices/modifications for ADL. 3=Patient will improve strength/tolerance for activity to enable patient to perform ADL's. OT Education/Plan Problem List/Assessment Assessment: Decreased Activ Tolerance, Impaired Coordination, Impaired Funct Balance, Impaired Self-Care Skills Discharge Recommendations Plan/Recommendations: Continue POC Treatment Plan/Plan of Care Patient would benefit from OT for education, treatment and training to promote independence in ADL's, mobility, safety and/or upper extremity function for ADL's. Plan of Care: ADL Retraining, Caregiver Training, Cognitive Retraining, Concurrent Therapy, Functional Mobility, Group Exercise/Act as Ind, UE Funct Exercise/Act Treatment Duration: Sep 03, 2019 Frequency: At least 5 of 7 days/Wk (IRF) Estimated Hrs Per Day: 1.5 hours per day Agreement: Yes Rehab Potential: Fair Time/GCodes Start Time: 13:10 Stop Time: 13:30 Total Time Billed (hr/min): 20 Billed Treatment Time 1 visit-ADL 1 (20 min) TEDDY HAWKINS Aug 21, 2019 13:57
--- NOTE | 2019-08-21 15:05 | Physical Therapy Daily Note ---
PT Daily Note-Current Subjective Pt sitting in recliner upon arrival. Pt agrees to PT for walking. Pain Numeric Pain Scale: 5-Moderate Pain Location Body Site: Sacrum Pain Description: Ache Mental Status Patient Orientation: Person, Place, Time, Situation Transfers SCALE: Activities may be completed with or without assistive devices. 9-Ihhyxihtbj-ozioucu completes the activity by him/herself with no assistance from a helper. 5-Set-up or Clean-up Assistance-helper sets up or cleans up; patient completes activity. [place] assists only prior to or following the activity. 4-Supervision or Touching Assistance-helper provides verbal cues and/or touching/steadying and/or contact guard assistance as patient completes activity. Assistance may be provided throughout the activity or intermittently. 3-Partial/Moderate Assistance-helper does LESS THAN HALF the effort. [place] lifts, holds or supports trunk or limbs, but provides less than half the effort. 2-Substantial/Maximal Assistance-helper does MORE THAN HALF the effort. [place] lifts or holds trunk or limbs and provides more than half the effort. 3-Hlpjahgbq-hsfrqz does ALL the effort. Patient does none of the effort to complete the activity. Or, the assistance of 2 or more helpers is required for the patient to complete the activity. If activity was not attempted, code reason: 7-Patient Refused. 9-Not Applicable-not attempted and the patient did not perform the activity before the current illness, exacerbation or injury. 10-Not Attempted due to Environmental Limitations-(lack of equipment, weather restraints, etc.). 88-Not Attempted due to Medical Conditions or Safety Concerns. Sit to Stand (QC): 4 Weight Bearing Weight Bearing/Tolerated Weight Bearing/Tolerated Gait Training Does the Patient Walk?: Yes Gait: 3 Distance: 50', 10', 50' Walk 10 feet (QC): 4 Walk 50 ft with 2 Turns(QC): 4 Gait Assistive Device: FWW Pt walks very slowly and fatigues quickly. Exercises Seated Therapy Exercises: Ankle pumps, Long arc quads, Hip flexion, Kicking activity, Hamstring Curls Seated Reps: 15 Treatments Pt transfers from recliner to standing then ambulates to chair in Therapy Commons. Pt takes RB then completes Seated Ex in chair. Pt attempts ambulation again but quickly fatigues needing RB before returning to room. Pt resting in recliner at end of tx, all needs met, call light in hand. Assessment Current Status: Good Progress Pt is improving but still fatigues easily and requires frequent RB. PT Short Term Goals Short Term Goals Wheelchair Distance: 50 ft PT Mcc Goals Supervisor Paste Mixing Goals PT Mcc Goals Time Frame: Sep 17, 2019 Sit to Lying (QC): 6 Lying-Sitting on Side/Bed(QC): 6 Sit to Stand (QC): 6 Roll Left to Right (QC): 6 Chair/San-ku-Xzpji Xfer(QC): 6 Car Transfer (QC): 5 Does the Patient Walk: Yes Walk 10 feet (QC): 6 Walk 10ft-Uneven Surface(QC): 6 Walk 50ft with 2 Turns (QC): 5 Walk 150 ft (QC): 9 Gait Assistive Device: FWW Does the Pt use WC or Scooter?: Yes Wheel 50 feet with 2 turns (QC: 6 1 Step (curb) (QC): 4 (at a wheelchair level) 4 Steps (QC): 9 12 Steps (QC): 9 Picking up an Object (QC): 9 PT Plan Problem List Problem List: Functional Strength, Safety, Balance, Gait, Transfer Treatment/Plan Treatment Plan: Continue Plan of Care Treatment Plan: Bed Mobility, Education, Functional Activity Melva, Functional Strength, Group Therapy, Gait, Safety, Therapeutic Exercise, Transfers, Other (wc mobility) Treatment Duration: Sep 17, 2019 Frequency: At least 5 of 7 days/Wk (IRF) Estimated Hrs Per Day: 1.5 hours per day Patient and/or Family Agrees t: Yes Safety Risks/Education Patient Education: Gait Training, Transfer Techniques, Correct Positioning, Safety Issues Teaching Recipient: Patient Teaching Methods: Discussion Response to Teaching: Verbalize Understanding Time/GCodes Time In: 1330 Time Out: 1400 Total Billed Treatment Time: 30 Total Billed Treatment 1, EX (10m) & GT (20m) YOLETTE BALLARD INSPECTOR RUBBER STAMP DIE Aug 21, 2019 15:05
--- NOTE | 2019-08-21 16:02 | NUR ---
Attempted to meet with pt for nutrition assessment. Pt was asleep both times. Will follow-up tomorrow. Lindsey Villanueva MS, RD, LD [phone]
[2019-08-21 17:38] VITALS: BP 139/91
[2019-08-21 20:30] VITALS: BP 131/84
[2019-08-21] MEDS: MICONAZOLE 2% POWDER (DESENEX AF) 90 GM TOP SCH (20:40)
[2019-08-21] MEDS: NYSTATIN CREAM (MYCOSTATIN) 30 GM TUBE TP SCH (20:40)
--- NOTE | 2019-08-21 21:00 | NUR ---
PATIENT AWAKENED FOR MEDS AND ASSESSMENT. AT BEDSIDE STATES HE IS EXHAUSTED FROM THERAPY TODAY. PATIENT DENIES PAIN OR COMPLAINTS AT THIS TIME. BROUGHT CPAP IN TODAY AND PATIENT HOPES TO HAVE A GOOD NIGHT SLEEP WITH IT ON. REFUSES PRIMO BOOTS, BUT AGREEABLE TO PILLOW UNDER LEGS TO KEEP HEELS OFF THE BED.
[2019-08-22 06:00] VITALS: BP 125/81
[2019-08-22] MEDS: CATHETER FLUSH 10 ML SYR IV SCH ×3 (06:07→22:05)
[2019-08-22] MEDS: PANTOPRAZOLE 40 MG (PROTONIX) TAB PO SCH ×2 (06:07→20:00)
[2019-08-22] MEDS: inSUlin ASPART (NovoLOG) 1 UNIT/0.01 ML (CHARGE PER UNIT) SC SCH ×4 (06:07→22:05)
[2019-08-22] MEDS: SENNA W/DOCUSATE (SENOKOT S) TABLET PO SCH ×2 (08:08→20:01)
--- NOTE | 2019-08-22 08:16 | Individualized Plan of Care ---
Individualized Plan of Care Rehab Nursing IPOC Order Admission Date Aug 20, 2019 at 12:40 Current Orders Orders Admission Order(Inpt,Obs,Sdc) (08/20/19 12:21) Vital Signs: Per Unit Policy ( 08,16,00 (08/20/19 12:21) Plasma Processing Centrifuge Operator-Inpt Rehab Con (08/20/19 12:21) Rehab Nursing Orders-Ipoc (08/20/19 12:21) Physical Therapy Rehab Orders (08/20/19 12:21) Occupational Therapy Rehab Ord (08/20/19 12:21) Speech Therapy Rehab Orders (08/20/19 12:21) Intake & Output 06,14,22 (08/20/19 12:21) Precautions (Aru) (08/20/19 12:21) Weekly Weight WEEK (08/20/19 12:21) Rehab-Intensity Of Therapy (08/20/19 12:21) Initiate Admission Nursing Pro .admission (08/20/19 12:21) Initiate Admission Nursing Pro .admission (08/20/19 12:21) Outpatient Physician Order/Script (08/20/19 13:39) Code/Resuscitation (08/20/19 13:39) Accucheck Achs ACHS (08/20/19 13:39) Dressing Order (Intervention) DAILY (08/20/19 13:39) Sequential Compression Device Q4H (08/20/19 13:39) Telemetry (08/20/19 13:39) Heart Healthy (08/20/19 Dinner) Acetaminophen Tablet (Tylenol Tablet) (08/20/19 13:45) Aspirin Chewable Tablet (Baby Aspirin Ch (08/21/19 09:00) Atorvastatin Tablet (Lipitor) (08/20/19 21:00) Clopidogrel Tablet (Plavix Tablet) (08/21/19 09:00) Cyclobenzaprine Tablet (Flexeril Tablet) (08/20/19 13:45) Diazepam Tablet (Valium Tablet) (08/20/19 13:45) Divalproex Delay Release Tab (Depakote T (08/20/19 21:00) Enoxaparin Injection (Lovenox Injection) (08/21/19 09:00) Hydrocodone/Apap 10/325 Tablet (Lortab 1 (08/20/19 13:45) Nitroglycerin 0.4 Mg Btl 25's (Nitrostat (08/20/19 13:45) Ondansetron Injection (Zofran Injectio (08/20/19 13:45) Pantoprazole Tablet (Protonix Tablet) (08/20/19 21:00) Patient's Own Med(Rx Use Only) (Patient' (08/21/19 09:00) Sertraline Tablet (Zoloft Tablet) (08/21/19 09:00) Insulin Aspart (Novolog) (Novolog (Charg (08/20/19 16:00) Consult Cardiology (08/20/19 13:39) Consult Pulmonology (08/20/19 13:39) Consult Wound Care Physician (08/20/19 13:39) Rt Request For Service (08/20/19 13:39) Telemetry Nursing Assessment ( (08/20/19 13:39) Cbc With Automated Diff (08/21/19 06:00) Comprehensive Metabolic Panel (08/21/19 06:00) Calcium Carbonate Chew Tablet (Antacid C (08/20/19 13:45) Diphenhydramine Tablet (Benadryl Tablet) (08/20/19 13:45) Docusate Sodium Capsule (Colace Capsule) (08/20/19 13:45) Loperamide Tablet (Imodium Tablet) (08/20/19 13:45) Melatonin Tablet (Melatonin Tablet) (08/20/19 13:45) Senna S Tablet (Senokot S Tablet) (08/20/19 21:00) Ceftriaxone For Iv Use (Rocephin For I (08/21/19 09:00) Patient Visit (08/20/19 ) Pt Eval Moderate Complexity (08/20/19 ) Functional Activities, Ea 15 (08/20/19 ) Patient Visit (08/20/19 ) Exercise Therap, Ea 15 Min (08/20/19 ) Functional Activities, Ea 15 (08/20/19 ) Gait Training, Ea 15 Min (08/20/19 ) Patient Visit (08/20/19 ) Speech Sound Lang Comp (08/20/19 ) Ambulate 08,12,20 (08/20/19 17:00) Sequential Compression Device Q4H (08/20/19 17:00) Dvt/Vte Risk - Notifiy Physici Q4H (08/20/19 17:00) Sodium Chloride Flush (Catheter Flush Sy (08/20/19 17:15) Sodium Chloride Flush (Catheter Flush Sy (08/20/19 22:00) Influenza Quad (5+Yoa) 2019-20 (Afluria (08/20/19 17:30) Carvedilol Tablet (Coreg Tablet) (08/21/19 09:00) Losartan Tablet (Cozaar Tablet) (08/21/19 09:00) Nystatin Cream (Mycostatin Cream) (08/21/19 21:00) Miconazole 2% Powder (Desenex Af 2% Powd (08/21/19 21:00) Patient Visit (08/21/19 ) Functional Activities, Ea 15 (08/21/19 ) Exercise Therap, Ea 15 Min (08/21/19 ) Patient Visit (08/21/19 ) Exercise Therap, Ea 15 Min (08/21/19 ) Gait Training, Ea 15 Min (08/21/19 ) Consult Urology (08/22/19 09:51) Post Void Residual Assessment (08/22/19 09:53) Straight Cath (Urinary) (08/22/19 09:53) Ua Culture If Indicated (08/22/19 19:01) Patient Visit (08/22/19 ) Gait Training, Ea 15 Min (08/22/19 ) Exercise Therap, Ea 15 Min (08/22/19 ) Functional Activities, Ea 15 (08/22/19 ) Imipramine Tablet (Tofranil Tablet) (08/22/19 21:00) Rehab Nursing Orders: Ongoing Assess. of Cognitive Status, Ongoing Assess. of Function Status, Bladder Training, Bowel Management, Disease Management & Educaiton, DVT Prophylaxis, Fall Prevention, Fluid/Electrolyte/Nutrition Mgmt, Infection Prevention, Medication Management & Education, Management of Risks & Complications, Nutrition Management, Pain Management, Patient/Family Support, Safety Management Intensity of Therapy to be met Patient to be seen: Min.3h per day/5 of 7d PT IPOC Problem List: Functional Strength, Safety, Balance, Gait, Transfer Treatment Plan: Continue Plan of Care Bed Mobility, Education, Functional Activity Melva, Functional Strength, Group Therapy, Gait, Safety, Therapeutic Exercise, Transfers, Other (wc mobility) Treatment Duration: Sep 17, 2019 Frequency: At least 5 of 7 days/Wk (IRF) Estimated Hrs Per Day: 1.5 hours per day OT IPOC Problems: Decreased Activ Tolerance, Impaired Coordination, Impaired Funct Balance, Impaired Self-Care Skills OT Treatment, Training and Edu: Yes Plan of Care: ADL Retraining, Caregiver Training, Cognitive Retraining, Concurrent Therapy, Functional Mobility, Group Exercise/Act as Ind, UE Funct Exercise/Act Treatment Duration: Sep 03, 2019 Frequency: At least 5 of 7 days/Wk (IRF) Estimated Hrs Per Day: 1.[address] IPOC Speech Therapy Treatment Plan: Discontinue ST Treatment Duration: Aug 20, 2019 Frequency: 1 time per week Estimated Hrs Per Day: .25 hour per day Plasma Processing Centrifuge Operator/Case Mgmt Plasma Processing Centrifuge Operator/Case Managemen: Discharge Planning Dietitian/Suction Operator Dietitian/Suction Operator to monitor nutritional status and make changes and/or recommendations as needed and work with speech pathology on dietary upgrades as the occur. Physician IPOC Medical Issues being managed closely and that require the 24 hour availability of a physician: Patient with complex medical issues at high risk for decompensation due to recent septic shock Medical Issues: Bowel/Bladder Function, DVT Prophylaxis, Falls Precautions, Fluid/Electrolyte/Nutrition Balance, Pain Management Brief Synthesis of Preadmission Screen, Post-Admission Evaluation, and Therapy Evaluations: PT will focus on ambulation and increase endurance OT will focus on independent ADL's Medical Prognosis: Good Anticipated Length of Stay: 10 days MANPREET SPENCER DO Aug 22, 2019 08:16
--- NOTE | 2019-08-22 08:16 | PM&R Progress Note ---
Subjective HPI/CC On Admission Date Seen by Provider: Aug 22, 2019 Time Seen by Provider: 08:30 CC: Debility following septic shock HPI: This is a 54-year-old white male who presents to inpatient rehabilitation in need of extensive strengthening due to weakness following a septic shock episode from UTI. He has a history of cauda equina syndrome and spine injuries resulting in chronic debility who received aggressive critical care management for septic shock from UTI. At this current time patient is able to participate in therapy and return to prior level of functioning after intensive rehabilitation course of walking around and walker and he reports that he spends a lot of time in his wheelchair at home also. He is supportive in agreement for inpatient rehabilitation status. Acute Care DC summary: Hospital course: Pt had a complex hospital course for 4 days after he was admitted of septic shock and UTI. Pt was placed in the ICU, central line placed and aggressive IV fluid initiated along with Dr. Rodriguez consultation and cardiology was also consulted for elevated Troponin. Dr. Lovelace is regular bi architect but Dr. Franklin did confer and review records. Upon further evaluation Lifevest was recommended and he will think about that but his ejection fraction has suffered a significant decline since last seen. Proteus on urine culture and Rocephin will bit required 1g IV daily or 3 days and pt was deemed stable but in need of strengthening in order to be successful at home and will be discharged in the very near future after completing rehab course. Subjective/Events-last exam Pt wanted a day pass to officiate at a wedding but I don't think that is possible Confusion is concerning for the pt and the and I told them that he is still in a component of delirium Bowels are moving good Incontinence prompting Dr. Moyer consult, he ordered a UA and in and out cath Sacral decubitus ulcer will be managed with wound care Review of Systems General: Fatigue Neurological: Confusion Objective Exam Vital Signs Vital Signs Date Time Temp Pulse Resp B/P (MAP) Pulse Ox O2 Delivery O2 Flow Rate FiO2 08/22/19 19:00 83 08/22/19 18:00 36.6 18 124/82 (96) 97 Room Air 08/21/19 05:08 2.00 Capillary Refill : General Appearance: No Apparent Distress, WD/WN, Chronically ill HEENT: PERRL/EOMI, Normal ENT Inspection, Pharynx Normal, Moist Mucous Membranes Neck: Full Range of Motion, Normal Inspection, Non Tender, Supple Respiratory: Chest Non Tender, Lungs Clear, Normal Breath Sounds, No Accessory Muscle Use, No Respiratory Distress Cardiovascular: Regular Rate, Rhythm, No Gallop, No JVD, No Murmur Gastrointestinal: Normal Bowel Sounds, No Organomegaly, No Pulsatile Mass, Non Tender, Soft Back: Normal Inspection, No CVA Tenderness, No Vertebral Tenderness Extremity: Normal Capillary Refill, Normal Inspection, Normal Range of Motion, Non Tender, No Calf Tenderness, Pedal Edema Neurologic/Psychiatric: Alert, Oriented x3, No Motor/Sensory Deficits (generalized weakness all extremities), Normal Mood/Affect, digital production manager II-XII Norm as Tested Skin: Normal Color, Warm/Dry Lymphatic: No Adenopathy Results/Procedures Lab Patient resulted labs reviewed. FIM Transfers Therapy Code Descriptions/Definitions Functional [place] Measure: 0=Not Assessed/NA 4=Minimal Assistance 1=Total Assistance 5=Supervision or Setup 2=Maximal Assistance 6=Modified [place] 3=Moderate Assistance 7=Complete IndependenceSCALE: Activities may be completed with or without assistive devices. 4-Bqbpbawsed-aueqvdn completes the activity by him/herself with no assistance from a helper. 5-Set-up or Clean-up Assistance-helper sets up or cleans up; patient completes activity. [place] assists only prior to or following the activity. 4-Supervision or Touching Assistance-helper provides verbal cues and/or touching/steadying and/or contact guard assistance as patient completes activity. Assistance may be provided throughout the activity or intermittently. 3-Partial/Moderate Assistance-helper does LESS THAN HALF the effort. [place] lifts, holds or supports trunk or limbs, but provides less than half the effort. 2-Substantial/Maximal Assistance-helper does MORE THAN HALF the effort. [place] lifts or holds trunk or limbs and provides more than half the effort. 3-Qgeodkenm-oktamb does ALL the effort. Patient does none of the effort to complete the activity. Or, the assistance of 2 or more helpers is required for the patient to complete the activity. If activity was not attempted, code reason: 7-Patient Refused. 9-Not Applicable-not attempted and the patient did not perform the activity before the current illness, exacerbation or injury. 10-Not Attempted due to Environmental Limitations-(lack of equipment, weather restraints, etc.). 88-Not Attempted due to Medical Conditions or Safety Concerns. Roll Left to Right (QC): 4 Sit to Lying (QC): 4 Sit to Stand (QC): 4 Chair/Tsf-wo-Dmxkz Xfer(QC): 4 Car Transfer (QC): 3 (assist with legs.) Gait Training Does the Patient Walk?: Yes Gait (FIM): 3 Distance: 50', 10', 50' Walk 10 feet (QC): 4 Walk 50 ft with 2 Turns(QC): 4 Walk 150 ft (QC): 88 Walking 10ft/uneven surface-QC: 88 Gait Persons Needed: 1 Gait Assistive Device: FWW Wheelchair Training Does the Pt Use a Wheelchair?: Yes Distance: 50 ft Wheel 50 ft with 2 turns (QC): 3 (assist with turning) Wheel 150 ft (QC): 3 Type of Wheelchair: Manual Stair Training 1 Step (curb) (QC): 88 4 Steps (QC): 88 12 Steps (QC): 88 Balance Picking up an Object (QC): 88 ADL-Treatment Eating (QC): 6 (Utilizes built up handles for utensil use.) Shower/Bathe Self (QC): 3 (Nursing notified of shower. Nursing states she will call ICU for telemetry removal. Pt transfers to shower bench with CGA. Pt able to complete showering with increased time. While reaching BLE, pt expresses pain. Pt requires assist in stance with bottom and back. Pt dries all areas with success. Pt brought in long handled sponge for use at end of session. ) Upper Body Dressing (QC): 6 Lower Body Dressing (QC): 2 (Pt educated on completing LLE threading prior to R due to decreased strength of LLE and difficulty maintaining hip flexion during dresssing. Pt educated on hr administrator during ADL tasks. Pt able to doff all LE clothing with CGA and use of hr administrator. Pt dons clothes with assist for LLE undergarment and pant threading. Pt able to thread RLE with increased time. Pt completes R sock without AE. Pt educated on sock korin, attempts donning socks with sock aide, aide too small for pt's foot. Pt was brought in new sock aide, will train soon.) Toilet Transfer (QC): 4 (CGA in stance during urination. ) Assessment/Plan Assessment and Plan Assess & Plan/Chief Complaint Assessment: Debility Status post septic shock History of central spinal cord syndrome resulting in chronic debility and weakness UTI needs 3 days of Rocephin IV and then will have completed regimen CAD Ischemic cardiomyopathy may need LifeVest Elevated troponin Volume overload Decubitus ulcer Chronic wounds on the legs Chronic edema Bipolar disorder Plan: Home meds Appreciate cardiology Monitor volume status Complete IV antibiotics Inpatient rehabilitation protocol (1) Debility Status: Acute (2) Bipolar disorder (3) CAD (coronary artery disease) (4) Delirium (5) Edema (6) CHF (congestive heart failure) (7) Wheelchair bound (8) DAISY on CPAP (9) Former smoker MANPREET SPENCER DO Aug 22, 2019 08:16
[2019-08-22] MEDS: HYDROcodone/APAP 10 MG/325 MG (LORTAB) TAB PO PRN ×2 (08:22→18:11)
[2019-08-22] MEDS: DIVALPROEX 500 MG DELAYED RELEASE (DEPAKOTE) TAB PO SCH ×2 (08:25→20:00)
[2019-08-22] MEDS: SERTRALINE 100 MG (ZOLOFT) TAB PO SCH (08:25)
[2019-08-22] MEDS: CARVEDILOL 6.25 MG (COREG) TAB PO SCH ×2 (08:25→20:00)
[2019-08-22] MEDS: CLOPIDOGREL 75 MG (PLAVIX) TABLET PO SCH (08:25)
[2019-08-22] MEDS: LOSARTAN 25 MG (COZAAR) TAB PO SCH (08:25)
[2019-08-22] MEDS: ASPIRIN 81 MG CHEW (CHILDREN'S ASA) PO SCH (08:25)
[2019-08-22] MEDS: ENOXAPARIN 40 MG/0.4 ML (LOVENOX) SYR SC SCH (08:26)
[2019-08-22] MEDS: NYSTATIN CREAM (MYCOSTATIN) 30 GM TUBE TP SCH ×2 (08:33→20:01)
[2019-08-22] MEDS: MICONAZOLE 2% POWDER (DESENEX AF) 90 GM TOP SCH ×2 (08:33→20:01)
[2019-08-22] MEDS: VRAYLAR 1.5 MG CAPSULE PO SCH (08:35)
[2019-08-22] MEDS: cefTRIAXone FOR IV USE 1,000 MG in WATER (STERILE) FOR INJECTION 10 ML IV SCH (08:35)
--- NOTE | 2019-08-22 08:43 | Progress Note ---
[facility] 08/22/19 0843: Progress Note * Pt reports enjoying the rehab unit * He states he was very tired last night after being worked hard yesterday * He states he still has some pain from his pressure sore on his rear end, but it is getting smaller * He reports his only limitation yesterday was getting short of breath at the end of the workout * He has not been on any oxygen, and has brought his home CPAP machine which helped him sleep tremendously * He reports using a walker with no difficulty and no assistance is needed AMANDA SPENCER DO 08/22/196: Supervisory-Addendum Brief Verification & Attestation Participated in pt care: history, MDM, physical Personally performed: exam, history, MDM, supervision of care Care discussed with: Medical Student Procedures: n/a Results interpretation: Verified all documentation Verification and Attestation of Medical Student E/M Service A medical student performed and documented this service in my presence. I reviewed and verified all information documented by the medical student and made modifications to such information, when appropriate. I personally performed the physical exam and medical decision making. Amanda Spencer, Aug 22, 2019,21:16 [facility] Aug 22, 2019 08:43 AMANDA SPENCER DO Aug 22, 2019 21:16
--- NOTE | 2019-08-22 11:10 | Physical Therapy Daily Note ---
PT Daily Note-Current Subjective Pt. agrees to Rx, feels he is stronger and is pleased. Pain Location: No Pain Reported Mental Status Patient Orientation: Normal For Age Transfers SCALE: Activities may be completed with or without assistive devices. 9-Uvlbrjrvcz-rsuwqml completes the activity by him/herself with no assistance from a helper. 5-Set-up or Clean-up Assistance-helper sets up or cleans up; patient completes activity. [place] assists only prior to or following the activity. 4-Supervision or Touching Assistance-helper provides verbal cues and/or touching/steadying and/or contact guard assistance as patient completes activity. Assistance may be provided throughout the activity or intermittently. 3-Partial/Moderate Assistance-helper does LESS THAN HALF the effort. [place] lifts, holds or supports trunk or limbs, but provides less than half the effort. 2-Substantial/Maximal Assistance-helper does MORE THAN HALF the effort. [place] lifts or holds trunk or limbs and provides more than half the effort. 9-Tegtvvosw-vduneo does ALL the effort. Patient does none of the effort to complete the activity. Or, the assistance of 2 or more helpers is required for the patient to complete the activity. If activity was not attempted, code reason: 7-Patient Refused. 9-Not Applicable-not attempted and the patient did not perform the activity before the current illness, exacerbation or injury. 10-Not Attempted due to Environmental Limitations-(lack of equipment, weather restraints, etc.). 88-Not Attempted due to Medical Conditions or Safety Concerns. Transfers (B, C, W/C): 5 Roll Left to Right (QC): 5 Sit to Lying (QC): 5 Sit to Stand (QC): 5 Chair/Iyu-xb-Yookf Xfer(QC): 5 Weight Bearing Weight Bearing/Tolerated Weight Bearing/Tolerated Gait Training Does the Patient Walk?: Yes Gait: 4 Walk 10 feet (QC): 4 Walk 50 ft with 2 Turns(QC): 4 Gait Persons Needed: 1 Gait Assistive Device: FWW narrow RAHEEL, heavy wt bearing on UEs and c/o hands and shoulders and arms are fatigued quickly from wt bearing Exercises Seated Therapy Exercises: Ankle pumps, Sit to stand, Long arc quads, Hip flexion, Hip abd/add Seated Reps: 15 (x2) Standing: Hip Abduction, Heel/toe raises, Marching, Mini squats Standing Reps: 10 (x2) NuStep Minutes: 12 NuStep Workload: 3 Treatments emphasis on chair approaches and turns with good wider RAHEEL for safety as well as feet in safe position in FWW Assessment Current Status: Good Progress gives good effort, very pleasant conversationalist PT Short Term Goals Short Term Goals Wheelchair Distance: 50 ft PT [facility] Goals [facility] Goals PT Carpet Cleaning Technician Goals Time Frame: Sep 17, 2019 Sit to Lying (QC): 6 Lying-Sitting on Side/Bed(QC): 6 Sit to Stand (QC): 6 Roll Left to Right (QC): 6 Chair/Kgk-lf-Anxjh Xfer(QC): 6 Car Transfer (QC): 5 Does the Patient Walk: Yes Walk 10 feet (QC): 6 Walk 10ft-Uneven Surface(QC): 6 Walk 50ft with 2 Turns (QC): 5 Walk 150 ft (QC): 9 Gait Assistive Device: FWW Does the Pt use WC or Scooter?: Yes Wheel 50 feet with 2 turns (QC: 6 1 Step (curb) (QC): 4 (at a wheelchair level) 4 Steps (QC): 9 12 Steps (QC): 9 Picking up an Object (QC): 9 PT Plan Treatment/Plan Treatment Plan: Continue Plan of Care Treatment Plan: Bed Mobility, Education, Functional Activity Melva, Functional Strength, Group Therapy, Gait, Safety, Therapeutic Exercise, Transfers, Other (wc mobility) Treatment Duration: Sep 17, 2019 Frequency: At least 5 of 7 days/Wk (IRF) Estimated Hrs Per Day: 1.5 hours per day Patient and/or Family Agrees t: Yes Safety Risks/Education Patient Education: Gait Training, Transfer Techniques, Correct Positioning, Disease Process, Safety Issues Teaching Recipient: Patient Teaching Methods: Demonstration, Discussion Response to Teaching: Verbalize Understanding, Return Demonstration, Reinforcement Needed Time/GCodes Time In: 930 Time Out: 1100 Total Billed Treatment Time: 90 Total Billed Treatment 1,GT25m,EX45m,FA20 SIA TOBIAS BOARD HANDLER Aug 22, 2019 11:10
[2019-08-22] MEDS: ACETAMINOPHEN 500 MG TAB (TYLENOL) PO PRN (11:45)
--- NOTE | 2019-08-22 12:00 | Occupational Ther Daily Note ---
OT Current Status-Daily Note Subjective Pt alert, sitting in recliner. Pt agrees to therapy. No c/o pain until end of session and then requested pain meds for pain at coccyx area. Mental Status/Objective Patient Orientation: Person, Place, Time, Situation ADL-Treatment Pt declined shower today. Agrees to sponge bath and change of clothing. Pt sat at sink and completed sponge bath with SBA for safety. Pt then was able to complete oral care sitting at sink. After set up, pt completed upper body dressing by self then SBA for lower body dressing. Pt donned/doffed shoes by self. Therapy Code Descriptions/Definitions Functional [place] Measure: 0=Not Assessed/NA 4=Minimal Assistance 1=Total Assistance 5=Supervision or Setup 2=Maximal Assistance 6=Modified [place] 3=Moderate Assistance 7=Complete IndependenceSCALE: Activities may be completed with or without assistive devices. 9-Zdqtamphbs-cotdoqm completes the activity by him/herself with no assistance from a helper. 5-Set-up or Clean-up Assistance-helper sets up or cleans up; patient completes activity. [place] assists only prior to or following the activity. 4-Supervision or Touching Assistance-helper provides verbal cues and/or [place]/steadying and/or contact guard assistance as patient completes activity. Assistance may be provided throughout the activity or intermittently. 3-Partial/Moderate Assistance-helper does LESS THAN HALF the effort. [place] lifts, holds or supports trunk or limbs, but provides less than half the effort. 2-Substantial/Maximal Assistance-helper does MORE THAN HALF the effort. [place] lifts or holds trunk or limbs and provides more than half the effort. 3-Xqytiobvb-kqsnpy does ALL the effort. Patient does none of the effort to complete the activity. Or, the assistance of 2 or more helpers is required for the patient to complete the activity. If activity was not attempted, code reason: 7-Patient Refused. 9-Not Applicable-not attempted and the patient did not perform the activity before the current illness, exacerbation or injury. 10-Not Attempted due to Environmental Limitations-(lack of equipment, weather restraints, etc.). 88-Not Attempted due to Medical Conditions or Safety Concerns. Eating (QC): 6 (Pt able to set self up and use regular utensils to eat.) Oral Hygiene (QC): 6 Bathing Location: L Arm, R Arm, L Upper Leg, R Upper Leg, L Lower Leg (including foot), R Lower Leg (including foot), Chest, Abdomen, Buttocks, Perineal Area Shower/Bathe Self (QC): 4 Upper Body Dressing (QC): 5 Lower Body Dressing (QC): 4 Other Treatment Pt given theraband handout for UE exercises and educated on technique and position. Will have pt complete UE exercises next treatment time. After t herapy, pt sitting in recliner with call light/phone in reach. All needs met in room. OT Short Term Goals Short Term Goals Grooming(FIM): 4 Bathing(FIM): 3 Toileting(FIM): 3 1=Demonstrate adherence to instructed precautions during ADL tasks. 2=Patient will verbalize/demonstrate understanding of assistive devices/modifications for ADL. 3=Patient will improve strength/tolerance for activity to enable patient to perform ADL's. OT Radiology Transcriptionist Goals Radiology Transcriptionist Goals Eating (QC): 6 Oral Hygiene (QC): 6 Shower/Bathe Self (QC): 4 Upper Body Dressing (QC): 6 Lower Body Dressing (QC): 4 On/Off Footwear (QC): 4 Toileting Hygiene (QC): 5 Toilet/Commode Transfer (QC): 4 Additional Goals: 1-Demonstrate ADL Tasks, 2-Verbalize Understanding, 3- ImproveStrength/Melva 1=Demonstrate adherence to instructed precautions during ADL tasks. 2=Patient will verbalize/demonstrate understanding of assistive devices/modifications for ADL. 3=Patient will improve strength/tolerance for activity to enable patient to perform ADL's. OT Education/Plan Problem List/Assessment Assessment: Impaired Coordination, Impaired Funct Balance Discharge Recommendations Plan/Recommendations: Continue POC Treatment Plan/Plan of Care Patient would benefit from OT for education, treatment and training to promote independence in ADL's, mobility, safety and/or upper extremity function for ADL's. Plan of Care: ADL Retraining, Caregiver Training, Cognitive Retraining, Concurrent Therapy, Functional Mobility, Group Exercise/Act as Ind, UE Funct Exercise/Act Treatment Duration: Sep 03, 2019 Frequency: At least 5 of 7 days/Wk (IRF) Estimated Hrs Per Day: 1.5 hours per day Agreement: Yes Rehab Potential: Fair Time/GCodes Start Time: 11:00 Stop Time: 12:00 Total Time Billed (hr/min): 60 Billed Treatment Time 1 visit-ADL 3 (50 min) EX 1 (10 min) TEDDY HAWKINS Aug 22, 2019 12:00
--- NOTE | 2019-08-22 13:34 | Occupational Ther Daily Note ---
OT Current Status-Daily Note Subjective Pt alert, sitting EOB. Pt agrees to therapy. No c/o pain. ADL-Treatment Therapy Code Descriptions/Definitions Functional [place] Measure: 0=Not Assessed/NA 4=Minimal Assistance 1=Total Assistance 5=Supervision or Setup 2=Maximal Assistance 6=Modified [place] 3=Moderate Assistance 7=Complete IndependenceSCALE: Activities may be completed with or without assistive devices. 7-Svfbfpnnoq-ikdcjxa completes the activity by him/herself with no assistance from a helper. 5-Set-up or Clean-up Assistance-helper sets up or cleans up; patient completes activity. [place] assists only prior to or following the activity. 4-Supervision or Touching Assistance-helper provides verbal cues and/or touching/steadying and/or contact guard assistance as patient completes activity. Assistance may be provided throughout the activity or intermittently. 3-Partial/Moderate Assistance-helper does LESS THAN HALF the effort. [place] lifts, holds or supports trunk or limbs, but provides less than half the effort. 2-Substantial/Maximal Assistance-helper does MORE THAN HALF the effort. [place] lifts or holds trunk or limbs and provides more than half the effort. 8-Tbhhczjbb-ycxajf does ALL the effort. Patient does none of the effort to complete the activity. Or, the assistance of 2 or more helpers is required for the patient to complete the activity. If activity was not attempted, code reason: 7-Patient Refused. 9-Not Applicable-not attempted and the patient did not perform the activity before the current illness, exacerbation or injury. 10-Not Attempted due to Environmental Limitations-(lack of equipment, weather restraints, etc.). 88-Not Attempted due to Medical Conditions or Safety Concerns. Other Treatment Pt educated on position of hands when pushing to stand and to keep a wide base of support when ambulating. Pt ambulated [facility] <-> room with min A. Completed 1 set 5 reps of 6 exercises prior to fatiguing. Pt was able to dem onstrate knowledge of each exercise by completing 1 rep of each without cues. Pt does need skilled instruction for proper positioning and technique. After therapy, pt sitting in recliner with call light/phone in reach. All needs met in room. Education OT Patient Education: Exercise program, Transfer techniques Teaching Recipient: Patient Teaching Methods: Demonstration, Handout, Discussion Response to Teaching: Verbalize Understanding, Return Demonstration, Reinforcement Needed OT Short Term Goals Short Term Goals Grooming(FIM): 4 Bathing(FIM): 3 Toileting(FIM): 3 1=Demonstrate adherence to instructed precautions during ADL tasks. 2=Patient will verbalize/demonstrate understanding of assistive devices/modifications for ADL. 3=Patient will improve strength/tolerance for activity to enable patient to perform ADL's. OT Movie Actor Goals Movie Actor Goals Eating (QC): 6 Oral Hygiene (QC): 6 Shower/Bathe Self (QC): 4 Upper Body Dressing (QC): 6 Lower Body Dressing (QC): 4 On/Off Footwear (QC): 4 Toileting Hygiene (QC): 5 Toilet/Commode Transfer (QC): 4 Additional Goals: 1-Demonstrate ADL Tasks, 2-Verbalize Understanding, 3- ImproveStrength/Melva 1=Demonstrate adherence to instructed precautions during ADL tasks. 2=Patient will verbalize/demonstrate understanding of assistive devices/modifications for ADL. 3=Patient will improve strength/tolerance for activity to enable patient to perform ADL's. OT Education/Plan Problem List/Assessment Assessment: Decreased Activ Tolerance, Decreased UE Strength, Impaired Coordination, Impaired Funct Balance Discharge Recommendations Plan/Recommendations: Continue POC Treatment Plan/Plan of Care Patient would benefit from OT for education, treatment and training to promote independence in ADL's, mobility, safety and/or upper extremity function for ADL's. Plan of Care: ADL Retraining, Caregiver Training, Cognitive Retraining, Concurrent Therapy, Functional Mobility, Group Exercise/Act as Ind, UE Funct Exercise/Act Treatment Duration: Sep 03, 2019 Frequency: At least 5 of 7 days/Wk (IRF) Estimated Hrs Per Day: 1.5 hours per day Agreement: Yes Rehab Potential: Fair Time/GCodes Start Time: 13:00 Stop Time: 13:30 Total Time Billed (hr/min): 30 Billed Treatment Time 1 visit-FA 1 (20 min) EX 1 (10 min) TEDDY HAWKINS Aug 22, 2019 13:34
--- NOTE | 2019-08-22 14:23 | NUR ---
RD ASSESSMENT PMHx: CAD; HTN; chronic constipation; DM; renal failure PT INTERACTION: Pt was awake and pleasant during rehab nutrition assessment. Pt states current appetite as "not great, but getting better." Pt states following a regular diet at home, and has no difficulty chewing/swallowing at this time. Note pt has poor teeth. Pt states no recent issues with n/v at this time. Pt states no issues with constipation, but has had some recent loose stools and incontinence. Pt states recent 81# wt loss, "that's what my doctor said." Note unable to determine recent wt hx, per chart review. ABNORMAL NUTRITION-RELATED LAB VALUES: Hgb 9.1 (H); Hct 28 (L); Ca 8.1 (L); Pro 5.8 (L); alb 2.6 (L); Cl 110 (H); glu 139 (H) Est. kcal needs: 9303-4799 kcal (15-20 kcal/kg) Est. Pro needs: 88-110 g Pro (0.8-1.0 g Pro/kg) PES STATEMENT: Inadequate oral intake (NI-2.1) related to loss of appetite | diarrhea as evidenced by patient interview INTERVENTION: Continue with current diet order of [facility] diet. Add Ensure Enlive to meals BID. Provides 350 kcal and 20 g Pro per serving, to increase protein and alb levels. Encouraged pt to eat when able. MONITOR/EVALUATE: PO Intake; Plan of Care; Hydration Status; Weight Status; Lab Values Lindsey Villanueva, MS, RD, LD Ext. [phone]
--- NOTE | 2019-08-22 14:36 | NUR ---
Infection Control Specialist follow up: Pt's present. Offered active listening and engaged in reflection and encouragement regarding his jacob in [place] and his love for his family. His daughter, son in law and three grandchildren also visited during our time together.
--- NOTE | 2019-08-22 17:07 | CONSULTATION REPORT ---
DATE OF SERVICE: 08/22/2019 ATTENDING PHYSICIAN: Dr. Jeffries. SUMMARY: A 54-year-old white man with cauda equina syndrome and spinal injury with chronic debility, who recently had also a severe urosepsis, but was treated appropriately and he is on Rocephin IV and now, he has been having some urinary incontinence after removing the Zimmerman catheter, mostly in the form of urgency and sudden loss of the urine. IMPRESSION: Urgency incontinence, recent urosepsis, history of cauda equina with spinal cord injuries. PLAN: First rule out any retention. We will get a postvoid residual catheter amount and also send it for urinalysis and possibly culture if indicated and we will manage accordingly. The plan was fully explained to the patient. Job ID: [id number] DocumentID: [id number] Dictated Date: 08/22/2019 13:36:47 [place] Date: 08/22/2019 17:06:23 Dictated By: MORGAN CORREA MD MTDD
[2019-08-22 18:00] VITALS: BP 124/82
[2019-08-22] MEDS: IMIPRAMINE 25 MG (TOFRANIL) TAB PO SCH (20:00)
[2019-08-22 21:51] LABS: BILIRUBIN,URINE NEGATIVE (NEGATIVE); CLARITY,URINE CLEAR; COLOR,URINE YELLOW; GLUCOSE, URINE (UA) NEGATIVE (NEGATIVE); KETONES,URINE NEGATIVE (NEGATIVE); LEUKOCYTE ESTERASE ,URINE 2+ (NEGATIVE); NITRITE,URINE NEGATIVE (NEGATIVE); PH,URINE 6 (5-9); PROTEIN,URINE 2+ (NEGATIVE); UROBILINOGEN,URINE 1 MG/DL (NORMAL)
[2019-08-22 22:01] LABS: RBC,URINE 0-2 /HPF
[2019-08-22 22:07] LABS: BACTERIA,URINE FEW /HPF
[2019-08-23 06:00] VITALS: BP 103/60
[2019-08-23] MEDS: PANTOPRAZOLE 40 MG (PROTONIX) TAB PO SCH ×2 (06:17→20:17)
[2019-08-23] MEDS: CATHETER FLUSH 10 ML SYR IV SCH ×3 (06:18→20:19)
[2019-08-23] MEDS: inSUlin ASPART (NovoLOG) 1 UNIT/0.01 ML (CHARGE PER UNIT) SC SCH ×4 (06:24→20:27)
[2019-08-23] MEDS: CLOPIDOGREL 75 MG (PLAVIX) TABLET PO SCH (08:35)
[2019-08-23] MEDS: LOSARTAN 25 MG (COZAAR) TAB PO SCH (08:35)
[2019-08-23] MEDS: ASPIRIN 81 MG CHEW (CHILDREN'S ASA) PO SCH (08:35)
[2019-08-23] MEDS: CARVEDILOL 6.25 MG (COREG) TAB PO SCH ×2 (08:35→20:17)
[2019-08-23] MEDS: DIVALPROEX 500 MG DELAYED RELEASE (DEPAKOTE) TAB PO SCH ×2 (08:35→20:17)
[2019-08-23] MEDS: SERTRALINE 100 MG (ZOLOFT) TAB PO SCH (08:35)
[2019-08-23] MEDS: MICONAZOLE 2% POWDER (DESENEX AF) 90 GM TOP SCH ×2 (08:36→20:18)
[2019-08-23] MEDS: cefTRIAXone FOR IV USE 1,000 MG in WATER (STERILE) FOR INJECTION 10 ML IV SCH (08:36)
[2019-08-23] MEDS: SENNA W/DOCUSATE (SENOKOT S) TABLET PO SCH ×2 (08:36→20:24)
[2019-08-23] MEDS: NYSTATIN CREAM (MYCOSTATIN) 30 GM TUBE TP SCH ×2 (08:36→20:18)
[2019-08-23] MEDS: ENOXAPARIN 40 MG/0.4 ML (LOVENOX) SYR SC SCH (08:36)
[2019-08-23] MEDS: VRAYLAR 1.5 MG CAPSULE PO SCH (08:37)
[2019-08-23] MEDS: HYDROcodone/APAP 10 MG/325 MG (LORTAB) TAB PO PRN ×2 (08:48→16:27)
--- NOTE | 2019-08-23 10:31 | Physical Therapy Daily Note ---
PT Daily Note-Current Subjective Pt. wants to get dressed top begin with as part of therapy. Feels he has made much progress, family present and also comments he is walking so much better Pain Location: No Pain Reported Mental Status Patient Orientation: Normal For Age Transfers SCALE: Activities may be completed with or without assistive devices. 3-Jhmzixmepr-gwpyhth completes the activity by him/herself with no assistance from a helper. 5-Set-up or Clean-up Assistance-helper sets up or cleans up; patient completes activity. [place] assists only prior to or following the activity. 4-Supervision or Touching Assistance-helper provides verbal cues and/or touching/steadying and/or contact guard assistance as patient completes activity . Assistance may be provided throughout the activity or intermittently. 3-Partial/Moderate Assistance-helper does LESS THAN HALF the effort. [place] lifts, holds or supports trunk or limbs, but provides less than half the effort. 2-Substantial/Maximal Assistance-helper does MORE THAN HALF the effort. [place] lifts or holds trunk or limbs and provides more than half the effort. 8-Jqzpoaogi-hvbkzj does ALL the effort. Patient does none of the effort to complete the activity. Or, the assistance of 2 or more helpers is required for the patient to complete the activity. If activity was not attempted, code reason: 7-Patient Refused. 9-Not Applicable-not attempted and the patient did not perform the activity before the current illness, exacerbation or injury. 10-Not Attempted due to Environmental Limitations-(lack of equipment, weather restraints, etc.). 88-Not Attempted due to Medical Conditions or Safety Concerns. Transfers (B, C, W/C): 5 Roll Left to Right (QC): 6 Sit to Lying (QC): 5 Sit to Stand (QC): 5 Chair/Ivk-vs-Csqpa Xfer(QC): 5 Bed to/from Chair: 5 Weight Bearing Weight Bearing/Tolerated Weight Bearing/Tolerated Gait Training Does the Patient Walk?: Yes Gait: 4 Walk 10 feet (QC): 4 Walk 50 ft with 2 Turns(QC): 4 Gait Persons Needed: 1 Gait Assistive Device: FWW slow, needs instruction for wider RAHEEL and equal step length as well as control and position in FWW Exercises Seated Therapy Exercises: Ankle pumps, Sit to stand, Long arc quads, Hip flexion, Hip abd/add Seated Reps: 15 Treatments pt. doffed damp brief indep, donned clean brief, pants and slippers indep after this LADLE WATCHER retrieved them and stood sithSBA to pull both pants and briefs up , slipped shoes on min assist Assessment Current Status: Good Progress PT Short Term Goals Short Term Goals Wheelchair Distance: 50 ft PT Circulation Man Goals Circulation Man Goals PT Assisted Goals Time Frame: Sep 17, 2019 Sit to Lying (QC): 6 Lying-Sitting on Side/Bed(QC): 6 Sit to Stand (QC): 6 Roll Left to Right (QC): 6 Chair/Gwf-fw-Vnrww Xfer(QC): 6 Car Transfer (QC): 5 Does the Patient Walk: Yes Walk 10 feet (QC): 6 Walk 10ft-Uneven Surface(QC): 6 Walk 50ft with 2 Turns (QC): 5 Walk 150 ft (QC): 9 Gait Assistive Device: FWW Does the Pt use WC or Scooter?: Yes Wheel 50 feet with 2 turns (QC: 6 1 Step (curb) (QC): 4 (at a wheelchair level) 4 Steps (QC): 9 12 Steps (QC): 9 Picking up an Object (QC): 9 PT Plan Treatment/Plan Treatment Plan: Continue Plan of Care Treatment Plan: Bed Mobility, Education, Functional Activity Melva, Functional Strength, Group Therapy, Gait, Safety, Therapeutic Exercise, Transfers, Other (wc mobility) Treatment Duration: Sep 17, 2019 Frequency: At least 5 of 7 days/Wk (IRF) Estimated Hrs Per Day: 1.5 hours per day Patient and/or Family Agrees t: Yes Safety Risks/Education Patient Education: Gait Training, Transfer Techniques, Correct Positioning, Disease Process, Safety Issues Teaching Recipient: Patient Teaching Methods: Demonstration, Discussion Response to Teaching: Verbalize Understanding, Return Demonstration, Reinforcement Needed Time/GCodes Time In: 905 Time Out: 950 Total Billed Treatment Time: 45 Total Billed Treatment 1,GT15m,FA20m,EX10m SIA TOBIAS LADLE WATCHER Aug 23, 2019 10:31
--- NOTE | 2019-08-23 13:01 | PM&R Progress Note ---
Subjective HPI/CC On Admission Date Seen by Provider: Aug 23, 2019 Time Seen by Provider: 11:00 CC: Debility following septic shock HPI: This is a 54-year-old white male who presents to inpatient rehabilitation in need of extensive strengthening due to weakness following a septic shock episode from UTI. He has a history of cauda equina syndrome and spine injuries resulting in chronic debility who received aggressive critical care management for septic shock from UTI. At this current time patient is able to participate in therapy and return to prior level of functioning after intensive rehabilitation course of walking around and walker and he reports that he spends a lot of time in his wheelchair at home also. He is supportive in agreement for inpatient rehabilitation status. Acute Care DC summary: Hospital course: Pt had a complex hospital course for 4 days after he was admitted of septic shock and UTI. Pt was placed in the ICU, central line placed and aggressive IV fluid initiated along with Dr. Rodriguez consultation and cardiology was also consulted for elevated Troponin. Dr. Lovelace is regular machine molder squeeze but Dr. Franklin did confer and review records. Upon further evaluation Lifevest was recommended and he will think about that but his ejection fraction has suffered a significant decline since last seen. Proteus on urine culture and Rocephin will bit required 1g IV daily or 3 days and pt was deemed stable but in need of strengthening in order to be successful at home and will be discharged in the very near future after completing rehab course. Subjective/Events-last exam Pt wanted a day pass to officiate at a wedding today for his granddaughter the patient is to medically complex and unstable at this point Confusion is concerning for the pt and the and I told them that he is still in a component of delirium that he seems to be improved today Bowels are moving good Incontinence prompting Dr. Moyer consult, he ordered a UA and in and out cath and he was try all night so that is very encouraging for him Sacral decubitus ulcer will be managed with wound care Checked meds and labs Conferred with electronic industrial controls mechanic therapy notes Review of Systems General: Fatigue Objective Exam Vital Signs Vital Signs Date Time Temp Pulse Resp B/P (MAP) Pulse Ox O2 Delivery O2 Flow Rate FiO2 08/23/19 13:00 70 08/23/19 09:00 Room Air 08/23/19 06:00 36.6 18 103/60 (74) 95 08/21/19 05:08 2.00 Capillary Refill : General Appearance: No Apparent Distress, WD/WN, Chronically ill HEENT: PERRL/EOMI, Normal ENT Inspection, Pharynx Normal, Moist Mucous Membranes Neck: Full Range of Motion, Normal Inspection, Non Tender, Supple Respiratory: Chest Non Tender, Lungs Clear, Normal Breath Sounds, No Accessory Muscle Use, No Respiratory Distress Cardiovascular: Regular Rate, Rhythm, No Gallop, No JVD, No Murmur Gastrointestinal: Normal Bowel Sounds, No Organomegaly, No Pulsatile Mass, Non Tender, Soft Back: Normal Inspection, No CVA Tenderness, No Vertebral Tenderness Extremity: Normal Capillary Refill, Normal Inspection, Normal Range of Motion, Non Tender, No Calf Tenderness, Pedal Edema Neurologic/Psychiatric: Alert, Oriented x3, No Motor/Sensory Deficits (generalized weakness all extremities), Normal Mood/Affect, 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 FIM Transfers Therapy Code Descriptions/Definitions Functional [place] Measure: 0=Not Assessed/NA 4=Minimal Assistance 1=Total Assistance 5=Supervision or Setup 2=Maximal Assistance 6=Modified [place] 3=Moderate Assistance 7=Complete IndependenceSCALE: Activities may be completed with or without assistive devices. 7-Qvtmxnlocp-cjmposx completes the activity by him/herself with no assistance from a helper. 5-Set-up or Clean-up Assistance-helper sets up or cleans up; patient completes activity. [place] assists only prior to or following the activity. 4-Supervision or Touching Assistance-helper provides verbal cues and/or touching/steadying and/or contact guard assistance as patient completes activity. Assistance may be provided throughout the activity or intermittently. 3-Partial/Moderate Assistance-helper does LESS THAN HALF the effort. [place] lifts, holds or supports trunk or limbs, but provides less than half the effort. 2-Substantial/Maximal Assistance-helper does MORE THAN HALF the effort. [place] lifts or holds trunk or limbs and provides more than half the effort. 4-Vasmjzuzv-tolfix does ALL the effort. Patient does none of the effort to complete the activity. Or, the assistance of 2 or more helpers is required for the patient to complete the activity. If activity was not attempted, code reason: 7-Patient Refused. 9-Not Applicable-not attempted and the patient did not perform the activity before the current illness, exacerbation or injury. 10-Not Attempted due to Environmental Limitations-(lack of equipment, weather restraints, etc.). 88-Not Attempted due to Medical Conditions or Safety Concerns. Transfers (B, C, W/C) (FIM): 5 Roll Left to Right (QC): 6 Sit to Lying (QC): 5 Sit to Stand (QC): 5 Chair/Uaf-st-Sglov Xfer(QC): 5 Bed to/from Chair: 5 Car Transfer (QC): 3 (assist with legs.) Gait Training Does the Patient Walk?: Yes Gait (FIM): 4 Distance: 50', 10', 50' Walk 10 feet (QC): 4 Walk 50 ft with 2 Turns(QC): 4 Walk 150 ft (QC): 88 Walking 10ft/uneven surface-QC: 88 Gait Persons Needed: 1 Gait Assistive Device: FWW Wheelchair Training Does the Pt Use a Wheelchair?: Yes Distance: 50 ft Wheel 50 ft with 2 turns (QC): 3 (assist with turning) Wheel 150 ft (QC): 3 Type of Wheelchair: Manual Stair Training 1 Step (curb) (QC): 88 4 Steps (QC): 88 12 Steps (QC): 88 Balance Picking up an Object (QC): 88 ADL-Treatment Eating (QC): 6 (Pt able to set self up and use regular utensils to eat.) Oral Hygiene (QC): 6 Bathing Location: L Arm, R Arm, L Upper Leg, R Upper Leg, L Lower Leg (including foot), R Lower Leg (including foot), Chest, Abdomen, Buttocks, Perineal Area Shower/Bathe Self (QC): 4 Upper Body Dressing (QC): 5 Lower Body Dressing (QC): 4 Toilet Transfer (QC): 4 (CGA in stance during urination. ) Assessment/Plan Assessment and Plan Assess & Plan/Chief Complaint Assessment: Debility Status post septic shock History of central spinal cord syndrome resulting in chronic debility and weakne ss UTI needs 3 days of Rocephin IV and then will have completed regimen CAD Ischemic cardiomyopathy may need LifeVest Elevated troponin Volume overload Decubitus ulcer Chronic wounds on the legs Chronic edema Bipolar disorder Urinary incontinence consulting urology which much improved status Plan: Home meds Appreciate cardiology Monitor volume status Complete IV antibiotics Inpatient rehabilitation protocol (1) Debility Status: Acute (2) Bipolar disorder (3) CAD (coronary artery disease) (4) Delirium (5) Edema (6) CHF (congestive heart failure) (7) Wheelchair bound (8) DAISY on CPAP (9) Former smoker MANPREET SPENCER DO Aug 23, 2019 13:01
[2019-08-23 18:00] VITALS: BP 118/76
[2019-08-23] MEDS: IMIPRAMINE 25 MG (TOFRANIL) TAB PO SCH (20:17)
[2019-08-24] MEDS: inSUlin ASPART (NovoLOG) 1 UNIT/0.01 ML (CHARGE PER UNIT) SC SCH ×4 (05:00→22:03)
[2019-08-24 05:35] VITALS: BP 113/68
[2019-08-24] MEDS: PANTOPRAZOLE 40 MG (PROTONIX) TAB PO SCH ×2 (06:24→19:51)
[2019-08-24] MEDS: CATHETER FLUSH 10 ML SYR IV SCH ×3 (06:25→22:04)
--- NOTE | 2019-08-24 08:24 | Progress Note - Urology ---
Progress Note-Urology Progress Notes/Assess & Plan Progress/Assessment & Plan TOFRANIL HELPING WELL. DRY. NO INCONTINENCE DAY OR NIGHT. TOLERATES IT WELL. NO A.E. EMPTYING WELL. Final Diagnosis INCONTINENCE MORGAN CORREA MD Aug 24, 2019 08:24
[2019-08-24] MEDS: DIVALPROEX 500 MG DELAYED RELEASE (DEPAKOTE) TAB PO SCH ×2 (08:45→19:50)
[2019-08-24] MEDS: SERTRALINE 100 MG (ZOLOFT) TAB PO SCH (08:45)
[2019-08-24] MEDS: ENOXAPARIN 40 MG/0.4 ML (LOVENOX) SYR SC SCH (08:45)
[2019-08-24] MEDS: cefTRIAXone FOR IV USE 1,000 MG in WATER (STERILE) FOR INJECTION 10 ML IV SCH (08:45)
[2019-08-24] MEDS: LOSARTAN 25 MG (COZAAR) TAB PO SCH (08:45)
[2019-08-24] MEDS: SENNA W/DOCUSATE (SENOKOT S) TABLET PO SCH ×2 (08:45→20:01)
[2019-08-24] MEDS: ASPIRIN 81 MG CHEW (CHILDREN'S ASA) PO SCH (08:45)
[2019-08-24] MEDS: HYDROcodone/APAP 10 MG/325 MG (LORTAB) TAB PO PRN ×2 (08:45→16:28)
[2019-08-24] MEDS: CARVEDILOL 6.25 MG (COREG) TAB PO SCH ×2 (08:45→20:00)
[2019-08-24] MEDS: VRAYLAR 1.5 MG CAPSULE PO SCH (08:46)
[2019-08-24] MEDS: CLOPIDOGREL 75 MG (PLAVIX) TABLET PO SCH (08:46)
[2019-08-24] MEDS: NYSTATIN CREAM (MYCOSTATIN) 30 GM TUBE TP SCH ×2 (08:46→20:02)
[2019-08-24] MEDS: MICONAZOLE 2% POWDER (DESENEX AF) 90 GM TOP SCH ×2 (08:46→20:02)
--- NOTE | 2019-08-24 12:56 | PM&R Progress Note ---
Subjective HPI/CC On Admission Date Seen by Provider: Aug 24, 2019 Time Seen by Provider: 11:15 CC: Debility following septic shock HPI: This is a 54-year-old white male who presents to inpatient rehabilitation in need of extensive strengthening due to weakness following a septic shock episode from UTI. He has a history of cauda equina syndrome and spine injuries resulting in chronic debility who received aggressive critical care management for septic shock from UTI. At this current time patient is able to participate in therapy and return to prior level of functioning after intensive rehabilitation course of walking around and walker and he reports that he spends a lot of time in his wheelchair at home also. He is supportive in agreement for inpatient rehabilitation status. Acute Care DC summary: Hospital course: Pt had a complex hospital course for 4 days after he was admitted of septic shock and UTI. Pt was placed in the ICU, central line placed and aggressive IV fluid initiated along with Dr. Rodriguez consultation and cardiology was also consulted for elevated Troponin. Dr. Lovelace is regular sleeve separator but Dr. Franklin did confer and review records. Upon further evaluation Lifevest was recommended and he will think about that but his ejection fraction has suffered a significant decline since last seen. Proteus on urine culture and Rocephin will bit required 1g IV daily or 3 days and pt was deemed stable but in need of strengthening in order to be successful at home and will be discharged in the very near future after completing rehab course. Subjective/Events-last exam Pt feels clearer and his family agrees Pain is doing well and refuses pain meds Bowels are moving good Incontinence resolved with the help of Dr Barrientos Sacral decubitus ulcer will be managed with wound care Checked meds and labs Conferred with etl software engineer therapy notes Review of Systems Neurological: Weakness, Numbness, Incoordination Objective Exam Vital Signs Vital Signs Date Time Temp Pulse Resp B/P (MAP) Pulse Ox O2 Delivery O2 Flow Rate FiO2 08/25/19 05:34 36.4 74 18 90/52 (65) 98 Room Air 08/21/19 05:08 2.00 Capillary Refill : General Appearance: No Apparent Distress, WD/WN, Chronically ill HEENT: PERRL/EOMI, Normal ENT Inspection, Pharynx Normal, Moist Mucous Membranes Neck: Full Range of Motion, Normal Inspection, Non Tender, Supple Respiratory: Chest Non Tender, Lungs Clear, Normal Breath Sounds, No Accessory Muscle Use, No Respiratory Distress Cardiovascular: Regular Rate, Rhythm, No Gallop, No JVD, No Murmur Gastrointestinal: Normal Bowel Sounds, No Organomegaly, No Pulsatile Mass, Non Tender, Soft Back: Normal Inspection, No CVA Tenderness, No Vertebral Tenderness Extremity: Normal Capillary Refill, Normal Inspection, Normal Range of Motion, Non Tender, No Calf Tenderness, Pedal Edema Neurologic/Psychiatric: Alert, Oriented x3, No Motor/Sensory Deficits (generalized weakness all extremities), Normal Mood/Affect, curator 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 FIM Transfers Therapy Code Descriptions/Definitions Functional [place] Measure: 0=Not Assessed/NA 4=Minimal Assistance 1=Total Assistance 5=Supervision or Setup 2=Maximal Assistance 6=Modified [place] 3=Moderate Assistance 7=Complete IndependenceSCALE: Activities may be completed with or without assistive devices. 7-Shnasrcywz-cxduvan completes the activity by him/herself with no assistance from a helper. 5-Set-up or Clean-up Assistance-helper sets up or cleans up; patient completes activity. [place] assists only prior to or following the activity. 4-Supervision or Touching Assistance-helper provides verbal cues and/or touching /steadying and/or contact guard assistance as patient completes activity. Assistance may be provided throughout the activity or intermittently. 3-Partial/Moderate Assistance-helper does LESS THAN HALF the effort. [place] lifts, holds or supports trunk or limbs, but provides less than half the effort. 2-Substantial/Maximal Assistance-helper does MORE THAN HALF the effort. [place] lifts or holds trunk or limbs and provides more than half the effort. 2-Dorpzcdtw-cbdzfq does ALL the effort. Patient does none of the effort to complete the activity. Or, the assistance of 2 or more helpers is required for the patient to complete the activity. If activity was not attempted, code reason: 7-Patient Refused. 9-Not Applicable-not attempted and the patient did not perform the activity before the current illness, exacerbation or injury. 10-Not Attempted due to Environmental Limitations-(lack of equipment, weather restraints, etc.). 88-Not Attempted due to Medical Conditions or Safety Concerns. Transfers (B, C, W/C) (FIM): 5 Roll Left to Right (QC): 6 Sit to Lying (QC): 5 Sit to Stand (QC): 5 Chair/Hsa-ew-Evrck Xfer(QC): 5 Bed to/from Chair: 5 Car Transfer (QC): 3 (assist with legs.) Gait Training Does the Patient Walk?: Yes Gait (FIM): 4 Distance: 50', 10', 50' Walk 10 feet (QC): 4 Walk 50 ft with 2 Turns(QC): 4 Walk 150 ft (QC): 88 Walking 10ft/uneven surface-QC: 88 Gait Persons Needed: 1 Gait Assistive Device: FWW Wheelchair Training Does the Pt Use a Wheelchair?: Yes Distance: 50 ft Wheel 50 ft with 2 turns (QC): 3 (assist with turning) Wheel 150 ft (QC): 3 Type of Wheelchair: Manual Stair Training 1 Step (curb) (QC): 88 4 Steps (QC): 88 12 Steps (QC): 88 Balance Picking up an Object (QC): 88 ADL-Treatment Eating (QC): 6 (Pt able to set self up and use regular utensils to eat.) Oral Hygiene (QC): 6 Bathing Location: L Arm, R Arm, L Upper Leg, R Upper Leg, L Lower Leg (including foot), R Lower Leg (including foot), Chest, Abdomen, Buttocks, Perineal Area Shower/Bathe Self (QC): 4 Upper Body Dressing (QC): 5 Lower Body Dressing (QC): 4 Toilet Transfer (QC): 4 (CGA in stance during urination. ) Assessment/Plan Assessment and Plan Assess & Plan/Chief Complaint Assessment: Debility Status post septic shock History of central spinal cord syndrome resulting in chronic debility and weakness UTI needs 3 days of Rocephin IV and then will have completed regimen CAD Ischemic cardiomyopathy may need LifeVest Elevated troponin Volume overload Decubitus ulcer Chronic wounds on the legs Chronic edema Bipolar disorder Urinary incontinence consulting urology which much improved status Plan: Home meds Appreciate cardiology Monitor volume status Complete IV antibiotics Inpatient rehabilitation protocol Check labs in am (1) Debility Status: Acute (2) Bipolar disorder (3) CAD (coronary artery disease) (4) Delirium (5) Edema (6) CHF (congestive heart failure) (7) Wheelchair bound (8) DAISY on CPAP (9) Former smoker MANPREET SPENCER DO Aug 24, 2019 12:56
[2019-08-24 18:00] VITALS: BP 114/72
[2019-08-24] MEDS: IMIPRAMINE 25 MG (TOFRANIL) TAB PO SCH (19:49)
[2019-08-24] MEDS: ACETAMINOPHEN 500 MG TAB (TYLENOL) PO PRN (19:51)
[2019-08-25 05:12] LABS: BASOPHILS % (AUTO) 0 % (0-10); EOSINOPHILS # (AUTO) 0.1 10^3/uL (0.0-0.3); EOSINOPHILS % (AUTO) 2 % (0-10); HEMATOCRIT 28 % (40-54); HEMOGLOBIN 8.8 G/DL (13.3-17.7); LYMPHOCYTES # (AUTO) 1.8 X 10^3 (1.0-4.0); LYMPHOCYTES % (AUTO) 28 % (12-44); MEAN CORPUSCULAR HEMOGLOBIN 29 PG (25-34); MEAN CORPUSCULAR HGB CONC 32 G/DL (32-36); MEAN CORPUSCULAR VOLUME 90 FL (80-99); MEAN PLATELET VOLUME 7.9 FL (7.4-10.4); MONOCYTES # (AUTO) 0.7 X 10^3 (0.0-1.0); MONOCYTES % (AUTO) 12 % (0-12); NEUTROPHILS # (AUTO) 3.7 X 10^3 (1.8-7.8); NEUTROPHILS % (AUTO) 59 % (42-75); PLATELET COUNT 252 10^3/uL (130-400); RED CELL DISTRIBUTION WIDTH 15.7 % (10.0-14.5); WHITE BLOOD COUNT 6.3 10^3/uL (4.3-11.0)
[2019-08-25 05:34] VITALS: BP 90/52
[2019-08-25] MEDS: inSUlin ASPART (NovoLOG) 1 UNIT/0.01 ML (CHARGE PER UNIT) SC SCH ×4 (05:37→20:55)
[2019-08-25 05:38] LABS: ALANINE AMINOTRANSFERASE 27 U/L (0-55); ALBUMIN 2.7 GM/DL (3.2-4.5); ALKALINE PHOSPHATASE 54 U/L (40-136); BILIRUBIN,TOTAL 0.2 MG/DL (0.1-1.0); BUN/CREATININE RATIO 10; CARBON DIOXIDE 26 MMOL/L (21-32); CHLORIDE 107 MMOL/L (98-107); CREATININE SERUM 0.71 MG/DL (0.60-1.30); GFR ESTIMATED > 60; GLUCOSE 109 MG/DL (70-105); POTASSIUM 3.7 MMOL/L (3.6-5.0); SODIUM 143 MMOL/L (135-145); TOTAL PROTEIN 5.1 GM/DL (6.4-8.2)
[2019-08-25] MEDS: CATHETER FLUSH 10 ML SYR IV SCH ×3 (06:01→20:55)
[2019-08-25] MEDS: PANTOPRAZOLE 40 MG (PROTONIX) TAB PO SCH ×2 (06:01→20:53)
[2019-08-25 08:00] VITALS: BP 111/74
[2019-08-25] MEDS: DIVALPROEX 500 MG DELAYED RELEASE (DEPAKOTE) TAB PO SCH ×2 (08:39→20:53)
[2019-08-25] MEDS: CLOPIDOGREL 75 MG (PLAVIX) TABLET PO SCH (08:39)
[2019-08-25] MEDS: SERTRALINE 100 MG (ZOLOFT) TAB PO SCH (08:39)
[2019-08-25] MEDS: ASPIRIN 81 MG CHEW (CHILDREN'S ASA) PO SCH (08:39)
[2019-08-25] MEDS: LOSARTAN 25 MG (COZAAR) TAB PO SCH (08:40)
[2019-08-25] MEDS: CARVEDILOL 6.25 MG (COREG) TAB PO SCH ×2 (08:40→20:53)
[2019-08-25] MEDS: cefTRIAXone FOR IV USE 1,000 MG in WATER (STERILE) FOR INJECTION 10 ML IV SCH (08:41)
[2019-08-25] MEDS: ENOXAPARIN 40 MG/0.4 ML (LOVENOX) SYR SC SCH (08:43)
[2019-08-25] MEDS: SENNA W/DOCUSATE (SENOKOT S) TABLET PO SCH ×2 (08:43→20:59)
[2019-08-25] MEDS: VRAYLAR 1.5 MG CAPSULE PO SCH (08:44)
[2019-08-25] MEDS: HYDROcodone/APAP 10 MG/325 MG (LORTAB) TAB PO PRN ×2 (08:48→15:22)
[2019-08-25] MEDS: NYSTATIN CREAM (MYCOSTATIN) 30 GM TUBE TP SCH ×2 (09:00→20:58)
--- NOTE | 2019-08-25 09:00 | NUR ---
SACRUM STARTING TO HEAL. ALLEVYN CHANGED. STATES FEELS CAN TURN SELF OKAY NOW AND ASKING NOT TO BE AWAKENED AT HS TO BE TURNED. AND FAMILY AT BEDSIDE. SINCE NOT INCONTINENT ANY MORE, REDNESS/RASH IN GROIN AREA HEALING.
--- NOTE | 2019-08-25 09:40 | PM&R Progress Note ---
Subjective HPI/CC On Admission Date Seen by Provider: Aug 25, 2019 Time Seen by Provider: 08:45 CC: Debility following septic shock HPI: This is a 54-year-old white male who presents to inpatient rehabilitation in need of extensive strengthening due to weakness following a septic shock episode from UTI. He has a history of cauda equina syndrome and spine injuries resulting in chronic debility who received aggressive critical care management for septic shock from UTI. At this current time patient is able to participate in therapy and return to prior level of functioning after intensive rehabilitation course of walking around and walker and he reports that he spends a lot of time in his wheelchair at home also. He is supportive in agreement for inpatient rehabilitation status. Acute Care DC summary: Hospital course: Pt had a complex hospital course for 4 days after he was admitted of septic shock and UTI. Pt was placed in the ICU, central line placed and aggressive IV fluid initiated along with Dr. Rodriguez consultation and cardiology was also consulted for elevated Troponin. Dr. Lovelace is regular industrial servicer but Dr. Franklin did confer and review records. Upon further evaluation Lifevest was recommended and he will think about that but his ejection fraction has suffered a significant decline since last seen. Proteus on urine culture and Rocephin will bit required 1g IV daily or 3 days and pt was deemed stable but in need of strengthening in order to be successful at home and will be discharged in the very near future after completing rehab course. Subjective/Events-last exam Hgb 8.8 Decreased dyspnea Getting out of bed and in bed is a bit of a struggle for him but he is improving He does have a tub at home and not a shower but he will make due with that as much as possible Checked meds and labs Conferred with welding pantograph operator therapy notes Review of Systems General: Fatigue Objective Exam Vital Signs Vital Signs Date Time Temp Pulse Resp B/P (MAP) Pulse Ox O2 Delivery O2 Flow Rate FiO2 08/26/19 06:53 85 08/26/19 06:04 36.6 16 129/80 (96) 96 Room Air 08/21/19 05:08 2.00 Capillary Refill : General Appearance: No Apparent Distress, WD/WN, Chronically ill HEENT: PERRL/EOMI, Normal ENT Inspection, Pharynx Normal, Moist Mucous Membranes Neck: Full Range of Motion, Normal Inspection, Non Tender, Supple Respiratory: Chest Non Tender, Lungs Clear, Normal Breath Sounds, No Accessory Muscle Use, No Respiratory Distress Cardiovascular: Regular Rate, Rhythm, No Gallop, No JVD, No Murmur Gastrointestinal: Normal Bowel Sounds, No Organomegaly, No Pulsatile Mass, Non Tender, Soft Back: Normal Inspection, No CVA Tenderness, No Vertebral Tenderness Extremity: Normal Capillary Refill, Normal Inspection, Normal Range of Motion, Non Tender, No Calf Tenderness, Pedal Edema Neurologic/Psychiatric: Alert, Oriented x3, No Motor/Sensory Deficits (generalized weakness all extremities), Normal Mood/Affect, 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 FIM Transfers Therapy Code Descriptions/Definitions Functional [place] Measure: 0=Not Assessed/NA 4=Minimal Assistance 1=Total Assistance 5=Supervision or Setup 2=Maximal Assistance 6=Modified [place] 3=Moderate Assistance 7=Complete IndependenceSCALE: Activities may be completed with or without assistive devices. 3-Nhcjvcyxkr-lxabjmg completes the activity by him/herself with no assistance from a helper. 5-Set-up or Clean-up Assistance-helper sets up or cleans up; patient completes activity. [place] assists only prior to or following the activity. 4-Supervision or Touching Assistance-helper provides verbal cues and/or to uching/steadying and/or contact guard assistance as patient completes activity. Assistance may be provided throughout the activity or intermittently. 3-Partial/Moderate Assistance-helper does LESS THAN HALF the effort. [place] lifts, holds or supports trunk or limbs, but provides less than half the effort. 2-Substantial/Maximal Assistance-helper does MORE THAN HALF the effort. [place] lifts or holds trunk or limbs and provides more than half the effort. 9-Fujaddacv-sxcdva does ALL the effort. Patient does none of the effort to complete the activity. Or, the assistance of 2 or more helpers is required for the patient to complete the activity. If activity was not attempted, code reason: 7-Patient Refused. 9-Not Applicable-not attempted and the patient did not perform the activity before the current illness, exacerbation or injury. 10-Not Attempted due to Environmental Limitations-(lack of equipment, weather restraints, etc.). 88-Not Attempted due to Medical Conditions or Safety Concerns. Transfers (B, C, W/C) (FIM): 5 Roll Left to Right (QC): 6 Sit to Lying (QC): 5 Sit to Stand (QC): 5 Chair/Sxz-qx-Ghahz Xfer(QC): 5 Bed to/from Chair: 5 Car Transfer (QC): 3 (assist with legs.) Gait Training Does the Patient Walk?: Yes Gait (FIM): 4 Distance: 50', 10', 50' Walk 10 feet (QC): 4 Walk 50 ft with 2 Turns(QC): 4 Walk 150 ft (QC): 88 Walking 10ft/uneven surface-QC: 88 Gait Persons Needed: 1 Gait Assistive Device: FWW Wheelchair Training Does the Pt Use a Wheelchair?: Yes Distance: 50 ft Wheel 50 ft with 2 turns (QC): 3 (assist with turning) Wheel 150 ft (QC): 3 Type of Wheelchair: Manual Stair Training 1 Step (curb) (QC): 88 4 Steps (QC): 88 12 Steps (QC): 88 Balance Picking up an Object (QC): 88 ADL-Treatment Eating (QC): 6 (Pt able to set self up and use regular utensils to eat.) Oral Hygiene (QC): 6 Bathing Location: L Arm, R Arm, L Upper Leg, R Upper Leg, L Lower Leg (including foot), R Lower Leg (including foot), Chest, Abdomen, Buttocks, Perineal Area Shower/Bathe Self (QC): 4 Upper Body Dressing (QC): 5 Lower Body Dressing (QC): 4 Toilet Transfer (QC): 4 (CGA in stance during urination. ) Assessment/Plan Assessment and Plan Assess & Plan/Chief Complaint Assessment: Debility Status post septic shock History of central spinal cord syndrome resulting in chronic debility and weakness UTI needs 3 days of Rocephin IV and then will have completed regimen CAD Ischemic cardiomyopathy may need LifeVest Elevated troponin Volume overload Decubitus ulcer Chronic wounds on the legs Chronic edema Bipolar disorder Urinary incontinence consulting urology which much improved status Plan: Home meds Appreciate cardiology Monitor volume status Complete IV antibiotics Inpatient rehabilitation protocol Check labs prn Much improved (1) Debility Status: Acute (2) Bipolar disorder (3) CAD (coronary artery disease) (4) Delirium (5) Edema (6) CHF (congestive heart failure) (7) Wheelchair bound (8) DAISY on CPAP (9) Former smoker MANPREET SPENCER DO Aug 25, 2019 09:40
--- NOTE | 2019-08-25 09:54 | Physical Therapy Daily Note ---
PT Daily Note-Current Subjective Patient in recliner pre tx, agrees to PT, has 8/10 pain in his bottom, states nursing already knows about it and he has had pain meds. Appearance Patient in recliner post tx with nurse call, phone, tray, all needs met. Mental Status Patient Orientation: Person, Place, Situation Transfers SCALE: Activities may be completed with or without assistive devices. 4-Jacsjjtvjo-quoxlbg completes the activity by him/herself with no assistance from a helper. 5-Set-up or Clean-up Assistance-helper sets up or cleans up; patient completes activity. [place] assists only prior to or following the activity. 4-Supervision or Touching Assistance-helper provides verbal cues and/or touching/steadying and/or contact guard assistance as patient completes activity. Assistance may be provided throughout the activity or intermittently. 3-Partial/Moderate Assistance-helper does LESS THAN HALF the effort. [place] lifts, holds or supports trunk or limbs, but provides less than half the effort. 2-Substantial/Maximal Assistance-helper does MORE THAN HALF the effort. [place] lifts or holds trunk or limbs and provides more than half the effort. 9-Esnxlixat-amjqac does ALL the effort. Patient does none of the effort to complete the activity. Or, the assistance of 2 or more helpers is required for the patient to complete the activity. If activity was not attempted, code reason: 7-Patient Refused. 9-Not Applicable-not attempted and the patient did not perform the activity before the current illness, exacerbation or injury. 10-Not Attempted due to Environmental Limitations-(lack of equipment, weather restraints, etc.). 88-Not Attempted due to Medical Conditions or Safety Concerns. Sit to Stand (QC): 4 Chair/Ewb-to-Yiyou Xfer(QC): 4 SBA, good use of hands when standing Weight Bearing Weight Bearing/Tolerated Weight Bearing/Tolerated Gait Training Distance: 130', 30', 100' Walk 10 feet (QC): 4 Walk 50 ft with 2 Turns(QC): 4 Gait Persons Needed: 1 Gait Assistive Device: FWW slow but steady ambulation, tends to lean forward onto walker but is able to remind himself to correct this Exercises Standing: Hip Abduction, Heel/toe raises, Marching, Mini squats Standing Reps: 15 NuStep Minutes: 13 NuStep Workload: 4 Treatments transfers, ambulation, LE exercise Assessment Current Status: Fair Progress improving endurance and LE strength PT Short Term Goals Short Term Goals Wheelchair Distance: 50 ft PT Floatlight Loading Supervisor Goals Chcf Goals PT Chcf Goals Time Frame: Sep 17, 2019 Sit to Lying (QC): 6 Lying-Sitting on Side/Bed(QC): 6 Sit to Stand (QC): 6 Roll Left to Right (QC): 6 Chair/Hrh-qn-Kjprm Xfer(QC): 6 Car Transfer (QC): 5 Does the Patient Walk: Yes Walk 10 feet (QC): 6 Walk 10ft-Uneven Surface(QC): 6 Walk 50ft with 2 Turns (QC): 5 Walk 150 ft (QC): 9 Gait Assistive Device: FWW Does the Pt use WC or Scooter?: Yes Wheel 50 feet with 2 turns (QC: 6 1 Step (curb) (QC): 4 (at a wheelchair level) 4 Steps (QC): 9 12 Steps (QC): 9 Picking up an Object (QC): 9 PT Plan Problem List Problem List: Activity Tolerance, Functional Strength, Safety, Balance, Gait, Transfer, Bed Mobility, ROM Treatment/Plan Treatment Plan: Continue Plan of Care Treatment Plan: Bed Mobility, Education, Functional Activity Melva, Functional Strength, Group Therapy, Gait, Safety, Therapeutic Exercise, Transfers, Other (wc mobility) Treatment Duration: Sep 17, 2019 Frequency: At least 5 of 7 days/Wk (IRF) Estimated Hrs Per Day: 1.5 hours per day Patient and/or Family Agrees t: Yes Safety Risks/Education Patient Education: Gait Training, Transfer Techniques, Correct Positioning, Safety Issues Teaching Recipient: Patient Teaching Methods: Demonstration, Discussion Response to Teaching: Reinforcement Needed Time/GCodes Time In: 0900 Time Out: 1000 Total Billed Treatment Time: 60 Total Billed Treatment 1 visit EX 30' GT 30' LEOBARDO HUBBARD PT Aug 25, 2019 09:54
--- NOTE | 2019-08-25 11:00 | NUR ---
[facility] STATES PATIENT HAS BEEN APPROVED AND WILL TALK TO [facility] ABOUT COMING UP TO FIT HIM FOR IT.
--- NOTE | 2019-08-25 11:11 | Progress Note ---
[facility] 08/25/19 1111: Progress Note CC: UTI, Cervical and Lumbar stenosis * Pt is doing very well and looking towards going home soon * He has reported not getting SOB while walking long distances anymore * He states he is able to complete all of the therapy and even do a little extra without getting short of breath * He is able walker around using a walker without assistance, which is an improvement from his wheelchair prior to coming into the hospital * He denies any chest pain, cough, numbness, or urinary problems * He states his cough has gotten better since not smoking and is thinking he will be able to abstain from smoking his tobacco pipe when he returns home * He states his pressure sore on his bottom has gotten a little better, but is still painful Barriers * He states he is unable to get out of the bed by himself * He is unable to get his feet into the bed by himself * He has been sleeping in the recliner at home which would alleviate these issues if he is not able to overcome them AMANDA SPENCER DO 08/26/192049: Supervisory-Addendum Brief Verification & Attestation Participated in pt care: history, MDM, physical Personally performed: exam, history, MDM, supervision of care Care discussed with: Medical Student Procedures: n/a Results interpretation: Verified all documentation Verification and Attestation of Medical Student E/M Service A medical student performed and documented this service in my presence. I revie wed and verified all information documented by the medical student and made modifications to such information, when appropriate. I personally performed the physical exam and medical decision making. Amanda Spencer, Aug 26, 2019,20:49 [facility] Aug 25, 2019 11:11 AMANDA SPENCER DO Aug 26, 2019 20:50
[2019-08-25] MEDS: MICONAZOLE 2% POWDER (DESENEX AF) 90 GM TOP SCH ×2 (12:00→20:58)
--- NOTE | 2019-08-25 14:51 | Occupational Ther Daily Note ---
OT Current Status-Daily Note Subjective Pt seen in room up in recliner, agreeable to OT. No pain mentioned. Requested a shower Appearance Alert, cooeprative. ADL-Treatment Pt able to put slippers on with extra time. Sit to stand with CGA, cues for hand placement. Walked CGA, FWW to bathroom. Pt educ shower transfer technique, completed with SBA, using grab bars, FWW and shower bench. Pt completed shower with setup, supervision/SBA for standing to wash bottom. Used long handled sponge to wash lower legs and bottom, as well as hand held shower. Washed and dried all parts, with extra time. Pt used hockey instructor to doff pants with SBA. Doffed/donned t-shirt with setup. Pt education modified techniques to don pants, using hockey instructor. Also did better with more room and better lighting, min assist overall. All ADLs took extra time. Walked CGA, FWW to recliner and sat with CGA, cues for walker and hand placement. Pt left up in recliner for lunch, all needs met. Therapy Code Descriptions/Definitions Functional [place] Measure: 0=Not Assessed/NA 4=Minimal Assistance 1=Total Assistance 5=Supervision or Setup 2=Maximal Assistance 6=Modified [place] 3=Moderate Assistance 7=Complete IndependenceSCALE: Activities may be completed with or without assistive devices. 6-Gapnrrowxr-dwpupmd completes the activity by him/herself with no assistance from a helper. 5-Set-up or Clean-up Assistance-helper sets up or cleans up; patient completes activity. [place] assists only prior to or following the activity. 4-Supervision or Touching Assistance-helper provides verbal cues and/or touching/steadying and/or contact guard assistance as patient completes activity. Assistance may be provided throughout the activity or intermittently. 3-Partial/Moderate Assistance-helper does LESS THAN HALF the effort. [place] lifts, holds or supports trunk or limbs, but provides less than half the effort. 2-Substantial/Maximal Assistance-helper does MORE THAN HALF the effort. [place] lifts or holds trunk or limbs and provides more than half the effort. 8-Veqcbprzq-bqewsp does ALL the effort. Patient does none of the effort to complete the activity. Or, the assistance of 2 or more helpers is required for the patient to complete the activity. If activity was not attempted, code reason: 7-Patient Refused. 9-Not Applicable-not attempted and the patient did not perform the activity before the current illness, exacerbation or injury. 10-Not Attempted due to Environmental Limitations-(lack of equipment, weather restraints, etc.). 88-Not Attempted due to Medical Conditions or Safety Concerns. Shower/Bathe Self (QC): 4 Upper Body Dressing (QC): 5 Lower Body Dressing (QC): 3 Education OT Patient Education: Modified ADL techniques, Progress toward Goal/Update tx plan, Purpose of tx/functional activities, Safety issues, Transfer techniques, Use of adapted equipment Teaching Recipient: Patient Teaching Methods: Demonstration, Discussion Response to Teaching: Verbalize Understanding, Return Demonstration, Reinforcement Needed OT Short Term Goals Short Term Goals Grooming(FIM): 4 Bathing(FIM): 3 Toileting(FIM): 3 1=Demonstrate adherence to instructed precautions during ADL tasks. 2=Patient will verbalize/demonstrate understanding of assistive devices/modifications for ADL. 3=Patient will improve strength/tolerance for activity to enable patient to perform ADL's. OT Penitentiary Goals Penitentiary Goals Eating (QC): 6 Oral Hygiene (QC): 6 Shower/Bathe Self (QC): 4 Upper Body Dressing (QC): 6 Lower Body Dressing (QC): 4 On/Off Footwear (QC): 4 Toileting Hygiene (QC): 5 Toilet/Commode Transfer (QC): 4 Additional Goals: 1-Demonstrate ADL Tasks, 2-Verbalize Understanding, 3-ImproveStrength/Melva 1=Demonstrate adherence to instructed precautions during ADL tasks. 2=Patient will verbalize/demonstrate understanding of assistive devices/modifications for ADL. 3=Patient will improve strength/tolerance for activity to enable patient to perform ADL's. OT Education/Plan Discharge Recommendations Plan/Recommendations: Continue POC Treatment Plan/Plan of Care Patient would benefit from OT for education, treatment and training to promote independence in ADL's, mobility, safety and/or upper extremity function for ADL's. Plan of Care: ADL Retraining, Caregiver Training, Cognitive Retraining, Concurrent Therapy, Functional Mobility, Group Exercise/Act as Ind, UE Funct Exercise/Act Treatment Duration: Sep 03, 2019 Frequency: At least 5 of 7 days/Wk (IRF) Estimated Hrs Per Day: 1.5 hours per day Agreement: Yes Rehab Potential: Fair Time/GCodes Start Time: 11:05 Stop Time: 12:05 Total Time Billed (hr/min): 60 Billed Treatment Time visit, 60 minutes CRISTO MURPHY OT Aug 25, 2019 14:51
--- NOTE | 2019-08-25 14:57 | Occupational Ther Daily Note ---
OT Current Status-Daily Note Subjective Pt seen in room, up in recliner, agreeable to OT. No pain mentioned. Appearance Alert, cooperative ADL-Treatment Therapy Code Descriptions/Definitions Functional [place] Measure: 0=Not Assessed/NA 4=Minimal Assistance 1=Total Assistance 5=Supervision or Setup 2=Maximal Assistance 6=Modified [place] 3=Moderate Assistance 7=Complete IndependenceSCALE: Activities may be completed with or without assistive devices. 5-Dhzsfrnxkq-ngegryb completes the activity by him/herself with no assistance from a helper. 5-Set-up or Clean-up Assistance-helper sets up or cleans up; patient completes activity. [place] assists only prior to or following the activity. 4-Supervision or Touching Assistance-helper provides verbal cues and/or touching/steadying and/or contact guard assistance as patient completes acti vity. Assistance may be provided throughout the activity or intermittently. 3-Partial/Moderate Assistance-helper does LESS THAN HALF the effort. [place] lifts, holds or supports trunk or limbs, but provides less than half the effort. 2-Substantial/Maximal Assistance-helper does MORE THAN HALF the effort. [place] lifts or holds trunk or limbs and provides more than half the effort. 9-Izeqlxsfu-lsxmev does ALL the effort. Patient does none of the effort to complete the activity. Or, the assistance of 2 or more helpers is required for the patient to complete the activity. If activity was not attempted, code reason: 7-Patient Refused. 9-Not Applicable-not attempted and the patient did not perform the activity before the current illness, exacerbation or injury. 10-Not Attempted due to Environmental Limitations-(lack of equipment, weather restraints, etc.). 88-Not Attempted due to Medical Conditions or Safety Concerns. Other Treatment Pt put shoes on with setup. Sit to stnad with SBA, cues for hand placement. Walked CGA, FWW to gym. Pt completed 10 minutes bilat UE exercise with arm bike set at 15W resistance, requiring two brief recovery periods. To strengthen arms to help with transfers and ADLs. Able to get up and down from chair with arms but with cues for hand placement. Pt walked back to room, CGA, FWW and transferred into bed with help to lift L leg, no cues for hand placement. Pt left up in bed, all needs met. Education OT Patient Education: Progress toward Goal/Update tx plan, Purpose of tx/functional activities, Transfer techniques Teaching Recipient: Patient Teaching Methods: Discussion Response to Teaching: Verbalize Understanding, Return Demonstration, Reinforcement Needed OT Short Term Goals Short Term Goals Grooming(FIM): 4 Bathing(FIM): 3 Toileting(FIM): 3 1=Demonstrate adherence to instructed precautions during ADL tasks. 2=Patient will verbalize/demonstrate understanding of assistive devices/modifications for ADL. 3=Patient will improve strength/tolerance for activity to enable patient to perform ADL's. OT Bulbs Farmworker Goals Usp Goals Eating (QC): 6 Oral Hygiene (QC): 6 Shower/Bathe Self (QC): 4 Upper Body Dressing (QC): 6 Lower Body Dressing (QC): 4 On/Off Footwear (QC): 4 Toileting Hygiene (QC): 5 Toilet/Commode Transfer (QC): 4 Additional Goals: 1-Demonstrate ADL Tasks, 2-Verbalize Understanding, 3-ImproveStrength/Melva 1=Demonstrate adherence to instructed precautions during ADL tasks. 2=Patient will verbalize/demonstrate understanding of assistive devices/modifications for ADL. 3=Patient will improve strength/tolerance for activity to enable patient to perform ADL's. OT Education/Plan Discharge Recommendations Plan/Recommendations: Continue POC Treatment Plan/Plan of Care Patient would benefit from OT for education, treatment and training to promote independence in ADL's, mobility, safety and/or upper extremity function for ADL's. Plan of Care: ADL Retraining, Caregiver Training, Cognitive Retraining, Concurrent Therapy, Functional Mobility, Group Exercise/Act as Ind, UE Funct Exercise/Act Treatment Duration: Sep 03, 2019 Frequency: At least 5 of 7 days/Wk (IRF) Estimated Hrs Per Day: 1.5 hours per day Agreement: Yes Rehab Potential: Fair Time/GCodes Start Time: 12:58 Stop Time: 13:28 Total Time Billed (hr/min): 30 Billed Treatment Time visit, 30 minutes exercise CRISTO DEWEY OT Aug 25, 2019 14:57
--- NOTE | 2019-08-25 15:27 | Pulmonary Progress Note ---
Standard Progress Note Progress Notes Date Seen by Provider: Aug 25, 2019 Time Seen by Provider: 15:00 pt is awake and alert and sitting up in chair. He denies shortness of breath, he is requiring walker for ambulation; he is wearing his cpap nightly and states it is set at 13. He gets his equipment at [facility] but reports testing and machine was in [place] and is older than 5 yrs but no issues. Assessment & Plan Recent hosp for Sepsis, UTI, and cardiomyopathy with stents. DAISY -wearing cpap and tolerating at 13 with full face mask; reports [facility] reviews the downloads; -our office info was given so pt can contact us if he needs assistance with cpap and equipment. -Echo shows EF 30-35% -will be getting life vest and has been approved -is on room air Admission notes, pulmonary progress notes, images and labs reviewed for continued care. LUISA SCHRADER APRN Aug 25, 2019 15:26
--- NOTE | 2019-08-25 15:45 | Physical Therapy Daily Note ---
PT Daily Note-Current Subjective Pt agreeable to PT. Mental Status Patient Orientation: Person, Place, Time, Situation Transfers SCALE: Activities may be completed with or without assistive devices. 1-Edbmkyqguv-yumjokf completes the activity by him/herself with no assistance from a helper. 5-Set-up or Clean-up Assistance-helper sets up or cleans up; patient completes activity. [place] assists only prior to or following the activity. 4-Supervision or Touching Assistance-helper provides verbal cues and/or touching/steadying and/or contact guard assistance as patient completes activity. Assistance may be provided throughout the activity or intermittently. 3-Partial/Moderate Assistance-helper does LESS THAN HALF the effort. [place] lifts, holds or supports trunk or limbs, but provides less than half the effort. 2-Substantial/Maximal Assistance-helper does MORE THAN HALF the effort. [place] lifts or holds trunk or limbs and provides more than half the effort. 4-Xwndrfjge-auqvip does ALL the effort. Patient does none of the effort to complete the activity. Or, the assistance of 2 or more helpers is required for the patient to complete the activity. If activity was not attempted, code reason: 7-Patient Refused. 9-Not Applicable-not attempted and the patient did not perform the activity before the current illness, exacerbation or injury. 10-Not Attempted due to Environmental Limitations-(lack of equipment, weather restraints, etc.). 88-Not Attempted due to Medical Conditions or Safety Concerns. Sit to stand all attempts with sBA with skilled cues/reminders for sequencing 25% of the time. Weight Bearing Weight Bearing/Tolerated Weight Bearing/Tolerated Gait Training Gait training 200 ft x 2 with FWW with SB-CGA. Skilled cues for posture and step length. Exercises Standing: Hamstring curls, Heel/toe raises, Marching, Mini squats Standing Reps: 15 (to increase functional LE strength for gait and safety.) Assessment Current Status: Good Progress Transfers and gait distance progressing. PT Short Term Goals Short Term Goals Wheelchair Distance: 50 ft PT Materials Specialist Goals Longterm Goals PT Longterm Goals Time Frame: Sep 17, 2019 Sit to Lying (QC): 6 Lying-Sitting on Side/Bed(QC): 6 Sit to Stand (QC): 6 Roll Left to Right (QC): 6 Chair/Avt-qn-Imgpk Xfer(QC): 6 Car Transfer (QC): 5 Does the Patient Walk: Yes Walk 10 feet (QC): 6 Walk 10ft-Uneven Surface(QC): 6 Walk 50ft with 2 Turns (QC): 5 Walk 150 ft (QC): 9 Gait Assistive Device: FWW Does the Pt use WC or Scooter?: Yes Wheel 50 feet with 2 turns (QC: 6 1 Step (curb) (QC): 4 (at a wheelchair level) 4 Steps (QC): 9 12 Steps (QC): 9 Picking up an Object (QC): 9 PT Plan Problem List Problem List: Activity Tolerance, Functional Strength, Safety Treatment/Plan Treatment Plan: Continue Plan of Care Treatment Plan: Bed Mobility, Education, Functional Activity Melva, Functional Strength, Group Therapy, Gait, Safety, Therapeutic Exercise, Transfers, Other (wc mobility) Treatment Duration: Sep 17, 2019 Frequency: At least 5 of 7 days/Wk (IRF) Estimated Hrs Per Day: 1.5 hours per day Patient and/or Family Agrees t: Yes Safety Risks/Education Patient Education: Gait Training Teaching Recipient: Patient Teaching Methods: Discussion Response to Teaching: Reinforcement Needed Discharge Recommendations Therapy Discharge Recommendati: Post Acute PT Time/GCodes Time In: 1325 Time Out: 1355 Total Billed Treatment Time: 30 Total Billed Treatment visit EX 15 GT 15 TEDDY SHEN PT Aug 25, 2019 15:45
[2019-08-25 16:30] VITALS: BP 127/85
--- NOTE | 2019-08-25 18:00 | NUR ---
NO INCONTINENCY TODAY. CONTINUES TO IMPROVE AND IN GOOD SPIRITS.
[2019-08-25] MEDS: IMIPRAMINE 25 MG (TOFRANIL) TAB PO SCH (20:53)
[2019-08-26] MEDS: inSUlin ASPART (NovoLOG) 1 UNIT/0.01 ML (CHARGE PER UNIT) SC SCH ×4 (05:47→20:07)
[2019-08-26] MEDS: HYDROcodone/APAP 10 MG/325 MG (LORTAB) TAB PO PRN ×3 (05:47→19:53)
[2019-08-26] MEDS: PANTOPRAZOLE 40 MG (PROTONIX) TAB PO SCH ×2 (05:47→19:53)
[2019-08-26] MEDS: CATHETER FLUSH 10 ML SYR IV SCH ×3 (05:48→19:54)
[2019-08-26 06:04] VITALS: BP 129/80
[2019-08-26] MEDS: SENNA W/DOCUSATE (SENOKOT S) TABLET PO SCH ×2 (09:21→19:54)
[2019-08-26] MEDS: LOSARTAN 25 MG (COZAAR) TAB PO SCH (09:22)
[2019-08-26] MEDS: SERTRALINE 100 MG (ZOLOFT) TAB PO SCH (09:22)
[2019-08-26] MEDS: CLOPIDOGREL 75 MG (PLAVIX) TABLET PO SCH (09:22)
[2019-08-26] MEDS: CARVEDILOL 6.25 MG (COREG) TAB PO SCH ×2 (09:22→19:54)
[2019-08-26] MEDS: DIVALPROEX 500 MG DELAYED RELEASE (DEPAKOTE) TAB PO SCH ×2 (09:22→19:54)
[2019-08-26] MEDS: ENOXAPARIN 40 MG/0.4 ML (LOVENOX) SYR SC SCH (09:23)
[2019-08-26] MEDS: ASPIRIN 81 MG CHEW (CHILDREN'S ASA) PO SCH (09:23)
--- NOTE | 2019-08-26 09:23 | Physical Therapy Daily Note ---
PT Daily Note-Current Subjective Pt sitting up in recliner upon arrival. Pt agrees to PT but asked to use restroom an get dressed before leaving room. Pain Numeric Pain Scale: 5-Moderate Pain Location: Incisional Location Body Site: Sacrum Pain Description: Ache Mental Status Patient Orientation: Person, Place, Time, Situation Transfers SCALE: Activities may be completed with or without assistive devices. 0-Diavzlqpuq-chfxdqo completes the activity by him/herself with no assistance from a helper. 5-Set-up or Clean-up Assistance-helper sets up or cleans up; patient completes activity. [place] assists only prior to or following the activity. 4-Supervision or Touching Assistance-helper provides verbal cues and/or touching/steadying and/or contact guard assistance as patient completes ac tivity. Assistance may be provided throughout the activity or intermittently. 3-Partial/Moderate Assistance-helper does LESS THAN HALF the effort. [place] lifts, holds or supports trunk or limbs, but provides less than half the effort. 2-Substantial/Maximal Assistance-helper does MORE THAN HALF the effort. [place] lifts or holds trunk or limbs and provides more than half the effort. 3-Wxrmezgwl-hmqizy does ALL the effort. Patient does none of the effort to complete the activity. Or, the assistance of 2 or more helpers is required for the patient to complete the activity. If activity was not attempted, code reason: 7-Patient Refused. 9-Not Applicable-not attempted and the patient did not perform the activity before the current illness, exacerbation or injury. 10-Not Attempted due to Environmental Limitations-(lack of equipment, weather restraints, etc.). 88-Not Attempted due to Medical Conditions or Safety Concerns. Sit to Stand (QC): 5 Weight Bearing Weight Bearing/Tolerated Weight Bearing/Tolerated Gait Training Does the Patient Walk?: Yes Gait: 5 Distance: 150' x2 Walk 10 feet (QC): 5 Walk 50 ft with 2 Turns(QC): 5 Walk 150 ft (QC): 5 Gait Persons Needed: 1 Gait Assistive Device: FWW DRAIN LAYER stays at close SBA while pt walks, needing VC to crab picker feet when ambulating. Wheelchair Training Does the Pt Use a Wheelchair?: No Exercises Seated Therapy Exercises: Sit to stand (5) NuStep Minutes: 13 NuStep Workload: 5 Treatments Pt stands from recliner and ambulates to restroom. Pt then returns to chair by closet to sit and dress self. Pt then ambulates in hallway and to Therapy Gym. Pt uses NuStep for 13m at [facility] [address] to check on pt then again for Nurse to check vitals. Pt ambulates back to room to rest in recliner at end of tx. Pt has all needs met, call light next to pt. Assessment Current Status: Good Progress Pt fatigues at times and needs occasionally RB. Pt recognized this for self. PT Short Term Goals Short Term Goals Wheelchair Distance: 50 ft PT Chcf Goals Academic Physician Goals PT Chcf Goals Time Frame: Sep 17, 2019 Sit to Lying (QC): 6 Lying-Sitting on Side/Bed(QC): 6 Sit to Stand (QC): 6 Roll Left to Right (QC): 6 Chair/Ege-sc-Lffvu Xfer(QC): 6 Car Transfer (QC): 5 Does the Patient Walk: Yes Walk 10 feet (QC): 6 Walk 10ft-Uneven Surface(QC): 6 Walk 50ft with 2 Turns (QC): 5 Walk 150 ft (QC): 9 Gait Assistive Device: FWW Does the Pt use WC or Scooter?: Yes Wheel 50 feet with 2 turns (QC: 6 1 Step (curb) (QC): 4 (at a wheelchair level) 4 Steps (QC): 9 12 Steps (QC): 9 Picking up an Object (QC): 9 PT Plan Problem List Problem List: Activity Tolerance, Functional Strength Treatment/Plan Treatment Plan: Continue Plan of Care Treatment Plan: Bed Mobility, Education, Functional Activity Melva, Functional Strength, Group Therapy, Gait, Safety, Therapeutic Exercise, Transfers, Other (wc mobility) Treatment Duration: Sep 17, 2019 Frequency: At least 5 of 7 days/Wk (IRF) Estimated Hrs Per Day: 1.5 hours per day Patient and/or Family Agrees t: Yes Safety Risks/Education Patient Education: Gait Training, Transfer Techniques, Correct Positioning, Safety Issues Teaching Recipient: Patient Teaching Methods: Discussion Response to Teaching: Verbalize Understanding Time/GCodes Time In: 800 Time Out: 900 Total Billed Treatment Time: 60 Total Billed Treatment 1, FA x2 (25m), GT (20m) & EX (15m) YOLETTE BALLARD DRAIN LAYER Aug 26, 2019 09:23
[2019-08-26] MEDS: VRAYLAR 1.5 MG CAPSULE PO SCH (09:24)
--- NOTE | 2019-08-26 09:24 | PM&R Progress Note ---
Subjective HPI/CC On Admission Date Seen by Provider: Aug 26, 2019 Time Seen by Provider: 08:45 CC: Debility following septic shock HPI: This is a 54-year-old white male who presents to inpatient rehabilitation in need of extensive strengthening due to weakness following a septic shock episode from UTI. He has a history of cauda equina syndrome and spine injuries resulting in chronic debility who received aggressive critical care management for septic shock from UTI. At this current time patient is able to participate in therapy and return to prior level of functioning after intensive rehabilitation course of walking around and walker and he reports that he spends a lot of time in his wheelchair at home also. He is supportive in agreement for inpatient rehabilitation status. Acute Care DC summary: Hospital course: Pt had a complex hospital course for 4 days after he was admitted of septic shock and UTI. Pt was placed in the ICU, central line placed and aggressive IV fluid initiated along with Dr. Rodriguez consultation and cardiology was also consulted for elevated Troponin. Dr. Lovelace is regular wagon drill operator but Dr. Franklin did confer and review records. Upon further evaluation Lifevest was recommended and he will think about that but his ejection fraction has suffered a significant decline since last seen. Proteus on urine culture and Rocephin will bit required 1g IV daily or 3 days and pt was deemed stable but in need of strengthening in order to be successful at home and will be discharged in the very near future after completing rehab course. Subjective/Events-last exam Pt doing very well. Getting ready for discharge. Life vest will be arranged, 48 hours before discharge. Overall feels much better. Less dyspneic. Delirium seems to have cleared completely. Bowels are moving. Checked meds and labs Conferred with peanut butter maker therapy notes Review of Systems General: Fatigue Pulmonary: Dyspnea Cardiovascular: Edema Objective Exam Vital Signs Vital Signs Date Time Temp Pulse Resp B/P (MAP) Pulse Ox O2 Delivery O2 Flow Rate FiO2 08/26/19 17:20 36.2 71 16 115/76 (89) 97 Room Air 2.00 2.00 Capillary Refill : General Appearance: No Apparent Distress, WD/WN, Chronically ill HEENT: PERRL/EOMI, Normal ENT Inspection, Pharynx Normal, Moist Mucous Membranes Neck: Full Range of Motion, Normal Inspection, Non Tender, Supple Respiratory: Chest Non Tender, Lungs Clear, Normal Breath Sounds, No Accessory Muscle Use, No Respiratory Distress Cardiovascular: Regular Rate, Rhythm, No Gallop, No JVD, No Murmur Gastrointestinal: Normal Bowel Sounds, No Organomegaly, No Pulsatile Mass, Non Tender, Soft Back: Normal Inspection, No CVA Tenderness, No Vertebral Tenderness Extremity: Normal Capillary Refill, Normal Inspection, Normal Range of Motion, Non Tender, No Calf Tenderness, Pedal Edema Neurologic/Psychiatric: Alert, Oriented x3, No Motor/Sensory Deficits (generalized weakness all extremities), Normal Mood/Affect, media executive II-XII Norm as Tested Skin: Normal Color, Warm/Dry Lymphatic: No Adenopathy Results/Procedures Lab Patient resulted labs reviewed. FIM Transfers Therapy Code Descriptions/Definitions Functional [place] Measure: 0=Not Assessed/NA 4=Minimal Assistance 1=Total Assistance 5=Supervision or Setup 2=Maximal Assistance 6=Modified [place] 3=Moderate Assistance 7=Complete IndependenceSCALE: Activities may be completed with or without assistive devices. 8-Ixrwyzkxgd-mwclfdw completes the activity by him/herself with no assistance from a helper. 5-Set-up or Clean-up Assistance-helper sets up or cleans up; patient completes activity. [place] assists only prior to or following the activity. 4-Supervision or Touching Assistance-helper provides verbal cues and/or touching/steadying and/or contact guard assistance as patient completes activity. Assistance may be provided throughout the activity or intermittently. 3-Partial/Moderate Assistance-helper does LESS THAN HALF the effort. [place] lifts, holds or supports trunk or limbs, but provides less than half the effort. 2-Substantial/Maximal Assistance-helper does MORE THAN HALF the effort. [place] lifts or holds trunk or limbs and provides more than half the effort. 1-Bunazalpn-slraby does ALL the effort. Patient does none of the effort to complete the activity. Or, the assistance of 2 or more helpers is required for the patient to complete the activity. If activity was not attempted, code reason: 7-Patient Refused. 9-Not Applicable-not attempted and the patient did not perform the activity before the current illness, exacerbation or injury. 10-Not Attempted due to Environmental Limitations-(lack of equipment, weather restraints, etc.). 88-Not Attempted due to Medical Conditions or Safety Concerns. Transfers (B, C, W/C) (FIM): 5 Roll Left to Right (QC): 6 Sit to Lying (QC): 5 Sit to Stand (QC): 4 Chair/Tbo-ht-Qdsij Xfer(QC): 4 Bed to/from Chair: 5 Car Transfer (QC): 3 (assist with legs.) Gait Training Does the Patient Walk?: Yes Gait (FIM): 4 Distance: 130', 30', 100' Walk 10 feet (QC): 4 Walk 50 ft with 2 Turns(QC): 4 Walk 150 ft (QC): 88 Walking 10ft/uneven surface-QC: 88 Gait Persons Needed: 1 Gait Assistive Device: FWW Wheelchair Training Does the Pt Use a Wheelchair?: Yes Distance: 50 ft Wheel 50 ft with 2 turns (QC): 3 (assist with turning) Wheel 150 ft (QC): 3 Type of Wheelchair: Manual Stair Training 1 Step (curb) (QC): 88 4 Steps (QC): 88 12 Steps (QC): 88 Balance Picking up an Object (QC): 88 ADL-Treatment Eating (QC): 6 (Pt able to set self up and use regular utensils to eat.) Oral Hygiene (QC): 6 Bathing Location: L Arm, R Arm, L Upper Leg, R Upper Leg, L Lower Leg (including foot), R Lower Leg (including foot), Chest, Abdomen, Buttocks, Perineal Area Shower/Bathe Self (QC): 4 Upper Body Dressing (QC): 5 Lower Body Dressing (QC): 3 Toilet Transfer (QC): 4 (CGA in stance during urination. ) Assessment/Plan Assessment and Plan Assess & Plan/Chief Complaint Assessment: Debility Status post septic shock History of central spinal cord syndrome resulting in chronic debility and weakness UTI s/p Rocephin IV and completed treatment CAD Ischemic cardiomyopathy now has LifeVest on Elevated troponin Volume overload Decubitus ulcer Chronic wounds on the legs Chronic edema Bipolar disorder Urinary incontinence consulting urology which much improved status Plan: Home meds Appreciate cardiology Monitor volume status Completed IV antibiotics Inpatient rehabilitation protocol Check labs prn Lifevest (1) Debility Status: Acute (2) Bipolar disorder (3) CAD (coronary artery disease) (4) Delirium (5) Edema (6) CHF (congestive heart failure) (7) Wheelchair bound (8) DAISY on CPAP (9) Former smoker MANPREET SPENCER DO Aug 26, 2019 09:24
[2019-08-26] MEDS: MICONAZOLE 2% POWDER (DESENEX AF) 90 GM TOP SCH ×2 (09:36→19:54)
[2019-08-26] MEDS: NYSTATIN CREAM (MYCOSTATIN) 30 GM TUBE TP SCH ×2 (09:37→19:54)
[2019-08-26] MEDS: ACETAMINOPHEN 500 MG TAB (TYLENOL) PO PRN (10:14)
--- NOTE | 2019-08-26 10:34 | Progress Note ---
[facility] 08/26/19 1034: Subjective Date Seen by a Provider: Aug 26, 2019 Time Seen by a Provider: 07:15 Subjective/Events-last exam CC: UTI, Lumbar and Cervical Stenosis * Pt reports that PT/OT wore him out yesterday with more intense workouts * He reports sleeping 8hrs last night * He reports having some urinary leakage last night, because he did not void his bladder prior to bed * He has bilateral pedal edema that is a little worse today likely from the increased workout load yesterday * He states his brother in law is going to build him a transfer mechanism to be able to get in and out of bed easier at home * He is states that he was approved for his cardiac LifeVest yesterday and is ready to go home as soon as he is cleared to do so Review of Systems HEENT: No Head Aches, No Visual Changes Pulmonary: No Dyspnea, No Cough Cardiovascular: Edema (Bilateral Pedal ); No: Chest Pain, Palpitations Gastrointestinal: No: Nausea, Vomiting, Abdominal Pain Genitourinary: No Dysuria, No Frequency Musculoskeletal: No: back pain, foot pain Neurological: No: Weakness, Numbness Focused Exam Respiratory: Chest Non Tender, Lungs Clear, Normal Breath Sounds, No Accessory Muscle Use, No Respiratory Distress Cardiovascular: Regular Rate, Rhythm, No Gallop, No Murmur Objective Exam Last Set of Vital Signs Vital Signs Date Time Temp Pulse Resp B/P (MAP) Pulse Ox O2 Delivery O2 Flow Rate FiO2 08/26/19 06:53 85 08/26/19 06:04 36.6 16 129/80 (96) 96 Room Air 08/21/19 05:08 2.00 Capillary Refill : I&O Intake and Output 08/26/19 00:00 Intake Total 1650 ml Output Total 800 ml Balance 850 ml Intake Oral 1650 ml Output Urine Total 800 ml # Voids 5 # Bowel Movements 1 General: Alert, Oriented X3, Cooperative, No Acute Distress Lungs: Clear to Auscultation, Normal Air Movement Heart: Regular Rate, No Murmurs Extremities: Normal Pulses, Other (Pedal edema) Neuro: Normal Speech, Normal Tone Psych/Mental Status: Mental Status NL, Mood NL Results Lab Laboratory Tests 08/25/19 11:09: Glucometer 138H 08/25/19 15:50: Glucometer 112H 08/25/19 20:05: Glucometer 211H 08/26/19 04:05: Glucometer 137H Microbiology 08/22/19 Urine Culture - Final, Complete YEAST Assessment/Plan Assessment/Plan Assess & Plan/Chief Complaint Assessment: CHF Previous [place] with stent placement Bipolar Cervical and Lumbar stenosis Plan: Consulted cardiology for CHF and [place] assessment, LifeVest to be placed prior to discharge Continue Depakote, Vraylar, Zoloft DVT prophylaxis Continue PT/OT Schedule follow up with spinal surgeon about repair of stenosis Clinical Quality Measures DVT/VTE Risk/Contraindication: Risk Factor Score Per Nursin RFS Level Per Nursing on Admit: 3=High AMANDA SPENCER DO 08/26/19 2103: Supervisory-Addendum Brief Verification & Attestation Participated in pt care: history, MDM, physical Personally performed: exam, history, MDM, supervision of care Care discussed with: Medical Student Procedures: n/a Results interpretation: Verified all documentation Verification and Attestation of Medical Student E/M Service A medical student performed and documented this service in my presence. I reviewed and verified all information documented by the medical student and made modifications to such information, when appropriate. I personally performed the physical exam and medical decision making. Amanda Spencer, Aug 26, 2019,21:03 [facility] Aug 26, 2019 10:34 AMANDA SPENCER DO Aug 26, 2019 21:03
--- NOTE | 2019-08-26 11:15 | Occupational Ther Daily Note ---
OT Current Status-Daily Note Subjective Pt sitting in chair, agrees to treatment. ADL-Treatment Pt requests shower this morning. Sit to stand with supervision. Gait to restroom with FWW. Pt transferred to shower with CGA for safety. Doffed clothing with SBA. Seated bathing completed using hand held shower. Pt able to wash/dry all areas with SBA and increased time. Pt brushed teeth and shaved while in shower with set up. Don button up shirt with set up and increased time. Pt has difficulty manipulating buttons secondary to neuropathy, but is able to complete with increased time. Pt able to thread bilateral LE into underwear and pants. Stood with supervision for pant hike. Don bilateral shoes with SBA and increased time. Therapy Code Descriptions/Definitions Functional [place] Measure: 0=Not Assessed/NA 4=Minimal Assistance 1=Total Assistance 5=Supervision or Setup 2=Maximal Assistance 6=Modified [place] 3=Moderate Assistance 7=Complete IndependenceSCALE: Activities may be completed with or without assistive devices. 3-Rivpkmnolq-nxrpuev completes the activity by him/herself with no assistance from a helper. 5-Set-up or Clean-up Assistance-helper sets up or cleans up; patient completes activity. [place] assists only prior to or following the activity. 4-Supervision or Touching Assistance-helper provides verbal cues and/or touching/steadying and/or contact guard assistance as patient completes activity. Assistance may be provided throughout the activity or intermittently. 3-Partial/Moderate Assistance-helper does LESS THAN HALF the effort. [place] lifts, holds or supports trunk or limbs, but provides less than half the effort. 2-Substantial/Maximal Assistance-helper does MORE THAN HALF the effort. [place] lifts or holds trunk or limbs and provides more than half the effort. 3-Pnyqjmcyf-oqdqwa does ALL the effort. Patient does none of the effort to complete the activity. Or, the assistance of 2 or more helpers is required for the patient to complete the activity. If activity was not attempted, code reason: 7-Patient Refused. 9-Not Applicable-not attempted and the patient did not perform the activity before the current illness, exacerbation or injury. 10-Not Attempted due to Environmental Limitations-(lack of equipment, weather restraints, etc.). 88-Not Attempted due to Medical Conditions or Safety Concerns. Oral Hygiene (QC): 5 Shower/Bathe Self (QC): 4 Upper Body Dressing (QC): 5 Lower Body Dressing (QC): 4 Other Treatment Pt performed gait to therapy gym with FWW and slow pace. Arm bike [id number] to increase overall strength and activity tolerance needed for functional task completion. Pt performed task with minimal resistance and slow pace. Pt returned to room, sitting in chair with needs met after session. OT Short Term Goals Short Term Goals Grooming(FIM): 4 Bathing(FIM): 3 Toileting(FIM): 3 1=Demonstrate adherence to instructed precautions during ADL tasks. 2=Patient will verbalize/demonstrate understanding of assistive devices/modifications for ADL. 3=Patient will improve strength/tolerance for activity to enable patient to perform ADL's. OT Alf Goals Alf Goals Eating (QC): 6 Oral Hygiene (QC): 6 Shower/Bathe Self (QC): 4 Upper Body Dressing (QC): 6 Lower Body Dressing (QC): 4 On/Off Footwear (QC): 4 Toileting Hygiene (QC): 5 Toilet/Commode Transfer (QC): 4 Additional Goals: 1-Demonstrate ADL Tasks, 2-Verbalize Understanding, 3- ImproveStrength/Melva 1=Demonstrate adherence to instructed precautions during ADL tasks. 2=Patient will verbalize/demonstrate understanding of assistive devices/modifications for ADL. 3=Patient will improve strength/tolerance for activity to enable patient to perform ADL's. OT Education/Plan Discharge Recommendations Plan/Recommendations: Continue POC Treatment Plan/Plan of Care Patient would benefit from OT for education, treatment and training to promote independence in ADL's, mobility, safety and/or upper extremity function for ADL's. Plan of Care: ADL Retraining, Caregiver Training, Cognitive Retraining, Concurrent Therapy, Functional Mobility, Group Exercise/Act as Ind, UE Funct Exercise/Act Treatment Duration: Sep 03, 2019 Frequency: At least 5 of 7 days/Wk (IRF) Estimated Hrs Per Day: 1.5 hours per day Agreement: Yes Rehab Potential: Fair Time/GCodes Start Time: 09:15 Stop Time: 10:45 Total Time Billed (hr/min): 90 Billed Treatment Time 1 visit, ADLx5(75minutes), EX(15minutes) VISHNU ROSALES OT Aug 26, 2019 11:15
--- NOTE | 2019-08-26 13:27 | Physical Therapy Daily Note ---
PT Daily Note-Current Subjective Pt positioned with pillows in L sidelying upon arrival. Pt agrees to PT for Supine Ex. Pain Numeric Pain Scale: 8 Location Body Site: Sacrum Pain Description: Throbbing Mental Status Patient Orientation: Person, Place, Time, Situation Transfers SCALE: Activities may be completed with or without assistive devices. 1-Hdtltobijz-khmarqh completes the activity by him/herself with no assistance from a helper. 5-Set-up or Clean-up Assistance-helper sets up or cleans up; patient completes activity. [place] assists only prior to or following the activity. 4-Supervision or Touching Assistance-helper provides verbal cues and/or touching/steadying and/or contact guard assistance as patient completes activity. Assistance may be provided throughout the activity or intermittently. 3-Partial/Moderate Assistance-helper does LESS THAN HALF the effort. [place] lifts, holds or supports trunk or limbs, but provides less than half the effort. 2-Substantial/Maximal Assistance-helper does MORE THAN HALF the effort. [place] lifts or holds trunk or limbs and provides more than half the effort. 5-Ehuvplsni-qpoipl does ALL the effort. Patient does none of the effort to comp lete the activity. Or, the assistance of 2 or more helpers is required for the patient to complete the activity. If activity was not attempted, code reason: 7-Patient Refused. 9-Not Applicable-not attempted and the patient did not perform the activity before the current illness, exacerbation or injury. 10-Not Attempted due to Environmental Limitations-(lack of equipment, weather restraints, etc.). 88-Not Attempted due to Medical Conditions or Safety Concerns. Weight Bearing Weight Bearing/Tolerated Weight Bearing/Tolerated Exercises Supine Ex: Ankle pumps, Quad Set, Heel Slides, Straight leg raise, Hip abd/add Supine Reps: 20 Treatments Pt completed Supine Ex in bed. MANAGER MSW issues HEP for Supine & Seated Ex. Pt resting at end of tx with all needs met, call light in hand. Assessment Current Status: Good Progress Pt is limited by pain this afternoon. PT Short Term Goals Short Term Goals Wheelchair Distance: 50 ft PT Supervisor Industrial Garment Goals Correction Goals PT Supervisor Industrial Garment Goals Time Frame: Sep 17, 2019 Sit to Lying (QC): 6 Lying-Sitting on Side/Bed(QC): 6 Sit to Stand (QC): 6 Roll Left to Right (QC): 6 Chair/Qlv-rp-Hpscc Xfer(QC): 6 Car Transfer (QC): 5 Does the Patient Walk: Yes Walk 10 feet (QC): 6 Walk 10ft-Uneven Surface(QC): 6 Walk 50ft with 2 Turns (QC): 5 Walk 150 ft (QC): 9 Gait Assistive Device: FWW Does the Pt use WC or Scooter?: Yes Wheel 50 feet with 2 turns (QC: 6 1 Step (curb) (QC): 4 (at a wheelchair level) 4 Steps (QC): 9 12 Steps (QC): 9 Picking up an Object (QC): 9 PT Plan Problem List Problem List: Activity Tolerance, Functional Strength Treatment/Plan Treatment Plan: Continue Plan of Care Treatment Plan: Bed Mobility, Education, Functional Activity Melva, Functional Strength, Group Therapy, Gait, Safety, Therapeutic Exercise, Transfers, Other (wc mobility) Treatment Duration: Sep 17, 2019 Frequency: At least 5 of 7 days/Wk (IRF) Estimated Hrs Per Day: 1.5 hours per day Patient and/or Family Agrees t: Yes Safety Risks/Education Patient Education: Correct Positioning, Safety Issues Teaching Recipient: Patient Teaching Methods: Discussion Response to Teaching: Verbalize Understanding Time/GCodes Time In: 1300 Time Out: 1330 Total Billed Treatment Time: 30 Total Billed Treatment 1, EX x2 (30m) YOLETTE BALLARD MANAGER MSW Aug 26, 2019 13:27
[2019-08-26 15:37] VITALS: BP 115/76
[2019-08-26 17:20] VITALS: BP 115/76
[2019-08-26] MEDS: IMIPRAMINE 25 MG (TOFRANIL) TAB PO SCH (19:54)
[2019-08-27] MEDS: HYDROcodone/APAP 10 MG/325 MG (LORTAB) TAB PO PRN (04:18)
[2019-08-27] MEDS: PANTOPRAZOLE 40 MG (PROTONIX) TAB PO SCH (04:18)
[2019-08-27] MEDS: CATHETER FLUSH 10 ML SYR IV SCH (04:18)
[2019-08-27] MEDS: inSUlin ASPART (NovoLOG) 1 UNIT/0.01 ML (CHARGE PER UNIT) SC SCH ×2 (04:44→11:00)
[2019-08-27 06:06] VITALS: BP 123/83
[2019-08-27] MEDS: ENOXAPARIN 40 MG/0.4 ML (LOVENOX) SYR SC SCH (08:29)
[2019-08-27] MEDS: SERTRALINE 100 MG (ZOLOFT) TAB PO SCH (08:30)
[2019-08-27] MEDS: CLOPIDOGREL 75 MG (PLAVIX) TABLET PO SCH (08:30)
[2019-08-27] MEDS: CARVEDILOL 6.25 MG (COREG) TAB PO SCH (08:30)
[2019-08-27] MEDS: SENNA W/DOCUSATE (SENOKOT S) TABLET PO SCH (08:31)
[2019-08-27] MEDS: DIVALPROEX 500 MG DELAYED RELEASE (DEPAKOTE) TAB PO SCH (08:31)
[2019-08-27] MEDS: ASPIRIN 81 MG CHEW (CHILDREN'S ASA) PO SCH (08:31)
[2019-08-27] MEDS: VRAYLAR 1.5 MG CAPSULE PO SCH (08:31)
--- NOTE | 2019-08-27 08:46 | Cardiology Progress Note ---
Subjective Date Seen by Provider: Aug 27, 2019 Time Seen by Provider: 08:20 Subjective/Events-last exam Patient is sitting up in chair, no new complaints. Denies any chest pain or dyspnea. Being discharged home today. Objective-Cardiology Exam Last Set of Vital Signs Vital Signs 08/26/19 08/27/19 17:20 06:06 Temp 36.6 Pulse 89 Resp 18 B/P (MAP) 123/83 (96) Pulse Ox 96 O2 Delivery Room Air O2 Flow Rate 2.00 2.00 Capillary Refill : I&O Intake and Output 08/27/19 00:00 Intake Total 1300 ml Output Total 900 ml Balance 400 ml Intake Oral 1300 ml Output Urine Total 900 ml # Voids 3 # Bowel Movements 1 General: Alert, Oriented X3, Cooperative, No Acute Distress HEENT: Atraumatic, PERRLA Neck: Supple, No JVD, No Thyromegaly Lungs: Clear to Auscultation, Normal Air Movement Heart: Regular Rate, No Murmurs Abdomen: Normal Bowel Sounds, Soft, No Tenderness, No Hepatosplenomegaly, No Ma sses Extremities: Normal Pulses, Other (Pedal edema) Skin: No Rashes, No Breakdown, No Significant Lesion Neuro: Normal Speech, Normal Tone Psych/Mental Status: Mental Status NL, Mood NL A/P-Cardiology Admission Diagnosis UTI NSTEMI CAD CHF Assessment/Plan Sepsis, UTI, received antibiotic, improved, management per hospitalist services. Congestive heart failure, chronic compensated left ventricular systolic dysfunction, ischemic cardiomyopathy, ejection fraction 25-30 percent, continue with medical therapy and LifeVest, discussed with the and the patient regarding the possibility of ICD in the future. Will follow up with Dr. Lovelace, his primary superintendent distribution, as an outpatient. Coronary artery disease, family reported that he had a cardiac catheterization with Dr. Lovelace in July 2019 had a stent to one artery and he had other diseased arteries that were inoperable, treated medically. Continue to monitor . Maintained on Plavix and ASA Elevated troponin level, non-ST elevation myocardial infarction, type II MD secondary to hypotension and extensive coronary artery disease, continue conservative management Anemia, continue to monitor closely stool for occult blood positive, patient will need to be on aspirin and Plavix at this point, he had a recent stent Hyperlipidemia, maintained on Lipitor 80 mg daily C-spine stenosis, patient was scheduled for surgery, during anesthesia induction has severe hypotension, surgery was canceled and patient was taken to the catheter lab and had a stent done as described above, still having back and neck pain Bipolar disorder, confusion, chronic, managed by primary care team Generalized debility/weakness- continue PT/OT Clinical Quality Measures DVT/VTE Risk/Contraindication: Risk Factor Score Per Nursin RFS Level Per Nursing on Admit: 3=High ELVIS NGO Aug 27, 2019 08:46
[2019-08-27] MEDS: MICONAZOLE 2% POWDER (DESENEX AF) 90 GM TOP SCH (09:00)
[2019-08-27] MEDS ORDERED: BETAMETHASONE/CLOTRIM CREAM (LOTRISONE) 45 GM TP SCH (09:00)
[2019-08-27] MEDS: LOSARTAN 25 MG (COZAAR) TAB PO SCH (09:00)
[2019-08-27] MEDS: NYSTATIN CREAM (MYCOSTATIN) 30 GM TUBE TP SCH (09:00)
[2019-08-27] MEDS ORDERED: CLOT15CR6 TP (09:29)
--- NOTE | 2019-08-27 09:30 | Discharge Summary ---
Diagnosis/Chief Complaint Date of Admission Aug 20, 2019 at 12:40 Date of Discharge Discharge Date: Aug 27, 2019 Discharge Diagnosis Assess & Plan/Chief Complaint Assessment: Debility Status post septic shock History of central spinal cord syndrome resulting in chronic debility and weakness UTI s/p Rocephin IV and completed treatment CAD Ischemic cardiomyopathy now has LifeVest on Elevated troponin Volume overload Decubitus ulcer Chronic wounds on the legs Chronic edema Bipolar disorder Urinary incontinence consulting urology which much improved status Plan: Home meds Appreciate cardiology Monitor volume status Completed IV antibiotics Inpatient rehabilitation protocol Check labs prn Lifevest (1) Debility Status: Acute (2) Bipolar disorder (3) CAD (coronary artery disease) (4) Delirium (5) Edema (6) CHF (congestive heart failure) (7) Wheelchair bound (8) DAISY on CPAP (9) Former smoker Discharge Summary Discharge Physical Examination Allergies: Coded Allergies: No Known Drug Allergies (Unverified , 04/23/19) Vitals & I&Os Vital Signs Date Time Temp Pulse Resp B/P (MAP) Pulse Ox O2 Delivery O2 Flow Rate FiO2 08/27/19 06:06 36.6 89 18 123/83 (96) 96 Room Air 08/26/19 17:20 2.00 2.00 General Appearance: Alert, Oriented X3, Cooperative Respiratory: Clear to Auscultation Cardiovascular: Regular Rate Skin: Other (mild chronic redness left top of foot consistent with tinea and venous stasis dermatitis) Neuro: Normal Gait, Normal Speech, Strength at 5/5 X4 Ext Psych/Mental Status: Mental Status NL, Mood NL Hospital Course Was the Problem List Reviewed?: Yes Hospital course: Patient had an uneventful hospital course during inpatient rehabilitation after he was admitted following a septic shock episode from UTI and severe acute on chronic debility. Patient was given aggressive IV fluids in the ICU cardiology was consulted patient found to have severe decline in systolic function requiring LifeVest prior to discharge. Labs returned back to baseline bowel function regained normalcy and patient was able to participate in all therapies and was able to regain function with the use of walker for ambulation and regain independent ADLs. Urology was consulted for incontinence and that issue resolved at time of discharge. He will need home health for nursing to wrap legs and add Lotrisone for the left foot tinea irritation and PT and OT to continue strengthening. Labs (last 24 hrs) Laboratory Tests 08/20/19 12:40: Lab Scanned Report Referred Lab Report 08/20/19 17:01: Glucometer 144H 08/20/19 21:42: Glucometer 187H 08/21/19 05:22: White Blood Count 5.7, Red Blood Count 3.16L, Hemoglobin 9.1L, Hematocrit 28L, Mean Corpuscular Volume 89, Mean Corpuscular Hemoglobin 29, Mean Corpuscular Hemoglobin Concent 33, Red Cell Distribution Width 15.1H, Platelet Count 247, Mean Platelet Volume 8.1, Neutrophils (%) (Auto) 66, Lymphocytes (%) (Auto) 23, Monocytes (%) (Auto) 11, Eosinophils (%) (Auto) 1, Basophils (%) (Auto) 0, Neutrophils # (Auto) 3.8, Lymphocytes # (Auto) 1.3, Monocytes # (Auto) 0.6, Eosinophils # (Auto) 0.0, Basophils # (Auto) 0.0, Sodium Level 144, Potassium Level 3.6, Chloride Level 110H, Carbon Dioxide Level 25, Anion Gap 9, Blood Urea Nitrogen 9, Creatinine 0.67, Estimat Glomerular Filtration Rate > 60, BUN/Creatinine Ratio 13, Glucose Level 142H, Calcium Level 8.1L, Corrected Calcium 9.2, Total Bilirubin 0.2, Aspartate Amino Transf (AST/SGOT) 15, Alanine Aminotransferase (ALT/SGPT) 23, Alkaline Phosphatase 50, Total Protein 5.0L, Albumin 2.6L 08/21/19 11:54: Glucometer 146H 08/21/19 16:25: Glucometer 133H 08/21/19 20:32: Glucometer 161H 08/22/19 06:06: Glucometer 139H 08/22/19 11:26: Glucometer 149H 08/22/19 16:17: Glucometer 163H 08/22/19 17:30: Urine Color YELLOW, Urine Clarity CLEAR, Urine pH 6, Urine Specific [place] 1.015L, Urine Protein 2+H, Urine Glucose (UA) NEGATIVE, Urine Ketones NEGATIVE, Urine Nitrite NEGATIVE, Urine Bilirubin NEGATIVE, Urine Urobilinogen 1, Urine Leukocyte Esterase 2+H, Urine RBC (Auto) NEGATIVE, Urine RBC 0-2, Urine WBC 10- 25H, Urine Crystals NONE, Urine Bacteria FEWH, Urine Casts NONE, Urine Mucus NEGATIVE, Urine Culture Indicated YES 08/22/19 22:02: Glucometer 176H 08/23/19 06:19: Glucometer 153H 08/23/19 11:43: Glucometer 156H 08/23/19 16:17: Glucometer 136H 08/23/19 20:23: Glucometer 155H 08/24/19 04:43: Glucometer 133H 08/24/19 11:45: Glucometer 187H 08/24/19 16:32: Glucometer 151H 08/24/19 21:57: Glucometer 183H 08/25/19 04:45: White Blood Count 6.3, Red Blood Count 3.07L, Hemoglobin 8.8L, Hematocrit 28L, Mean Corpuscular Volume 90, Mean Corpuscular Hemoglobin 29, Mean Corpuscular Hemoglobin Concent 32, Red Cell Distribution Width 15.7H, Platelet Count 252, Mean Platelet Volume 7.9, Neutrophils (%) (Auto) 59, Lymphocytes (%) (Auto) 28, Monocytes (%) (Auto) 12, Eosinophils (%) (Auto) 2, Basophils (%) (Auto) 0, Neutrophils # (Auto) 3.7, Lymphocytes # (Auto) 1.8, Monocytes # (Auto) 0.7, Eosinophils # (Auto) 0.1, Basophils # (Auto) 0.0, Sodium Level 143, Potassium Level 3.7, Chloride Level 107, Carbon Dioxide Level 26, Anion Gap 10, Blood Urea Nitrogen 7, Creatinine 0.71, Estimat Glomerular Filtration Rate > 60, BUN/Creatinine Ratio 10, Glucose Level 109H, Calcium Level 8.0L, Corrected Calcium 9.0, Total Bilirubin 0.2, Aspartate Amino Transf (AST/SGOT) 20, Alanine Aminotransferase (ALT/SGPT) 27, Alkaline Phosphatase 54, Total Protein 5.1L, Albumin 2.7L 08/25/19 04:47: Glucometer 116H 08/25/19 11:09: Glucometer 138H 08/25/19 15:50: Glucometer 112H 08/25/19 20:05: Glucometer 211H 08/26/19 04:05: Glucometer 137H 08/26/19 11:28: Glucometer 123H 08/26/19 15:34: Glucometer 153H 08/26/19 19:53: Glucometer 147H Microbiology 08/22/19 Urine Culture - Final, Complete YEAST Pending Labs Microbiology Date/Time Source Procedure Growth Status 08/22/19 17:30 Urine Zimmerman Cath Urine Culture - Final YEAST Complete Laboratory Tests 08/20/19 12:40: Lab Scanned Report Referred Lab Report 08/20/19 17:01: Glucometer 144 08/20/19 21:42: Glucometer 187 08/21/19 05:22: White Blood Count 5.7, Red Blood Count 3.16, Hemoglobin 9.1, Hematocrit 28, Mean Corpuscular Volume 89, Mean Corpuscular Hemoglobin 29, Mean Corpuscular Hemoglobin Concent 33, Red Cell Distribution Width 15.1, Platelet Count 247, Mean Platelet Volume 8.1, Neutrophils (%) (Auto) 66, Lymphocytes (%) (Auto) 23, Monocytes (%) (Auto) 11, Eosinophils (%) (Auto) 1, Basophils (%) (Auto) 0, Neutrophils # (Auto) 3.8, Lymphocytes # (Auto) 1.3, Monocytes # (Auto) 0.6, Eosinophils # (Auto) 0.0, Basophils # (Auto) 0.0, Sodium Level 144, Potassium Level 3.6, Chloride Level 110, Carbon Dioxide Level 25, Anion Gap 9, Blood Urea Nitrogen 9, Creatinine 0.67, Estimat Glomerular Filtration Rate > 60, BUN/ Creatinine Ratio 13, Glucose Level 142, Calcium Level 8.1, Corrected Calcium 9.2, Total Bilirubin 0.2, Aspartate Amino Transf (AST/SGOT) 15, Alanine Aminotransferase (ALT/SGPT) 23, Alkaline Phosphatase 50, Total Protein 5.0, Albumin 2.6 08/21/19 11:54: Glucometer 146 08/21/19 16:25: Glucometer 133 08/21/19 20:32: Glucometer 161 08/22/19 06:06: Glucometer 139 08/22/19 11:26: Glucometer 149 08/22/19 16:17: Glucometer 163 08/22/19 17:30: Urine Color YELLOW, Urine Clarity CLEAR, Urine pH 6, Urine Specific [place] 1.015, Urine Protein 2+, Urine Glucose (UA) NEGATIVE, Urine Ketones NEGATIVE, Urine Nitrite NEGATIVE, Urine Bilirubin NEGATIVE, Urine Urobilinogen 1, Urine Leukocyte Esterase 2+, Urine RBC (Auto) NEGATIVE, Urine RBC 0-2, Urine WBC 10- 25, Urine Crystals NONE, Urine Bacteria FEW, Urine Casts NONE, Urine Mucus NEGATIVE, Urine Culture Indicated YES 08/22/19 22:02: Glucometer 176 08/23/19 06:19: Glucometer 153 08/23/19 11:43: Glucometer 156 08/23/19 16:17: Glucometer 136 08/23/19 20:23: Glucometer 155 08/24/19 04:43: Glucometer 133 08/24/19 11:45: Glucometer 187 08/24/19 16:32: Glucometer 151 08/24/19 21:57: Glucometer 183 08/25/19 04:45: White Blood Count 6.3, Red Blood Count 3.07, Hemoglobin 8.8, Hematocrit 28, Mean Corpuscular Volume 90, Mean Corpuscular Hemoglobin 29, Mean Corpuscular Hemoglobin Concent 32, Red Cell Distribution Width 15.7, Platelet Count 252, Mean Platelet Volume 7.9, Neutrophils (%) (Auto) 59, Lymphocytes (%) (Auto) 28, Monocytes (%) (Auto) 12, Eosinophils (%) (Auto) 2, Basophils (%) (Auto) 0, Neutrophils # (Auto) 3.7, Lymphocytes # (Auto) 1.8, Monocytes # (Auto) 0.7, Eosinophils # (Auto) 0.1, Basophils # (Auto) 0.0, Sodium Level 143, Potassium Level 3.7, Chloride Level 107, Carbon Dioxide Level 26, Anion Gap 10, Blood Urea Nitrogen 7, Creatinine 0.71, Estimat Glomerular Filtration Rate > 60, BUN/Creatinine Ratio 10, Glucose Level 109, Calcium Level 8.0, Corrected Calcium 9.0, Total Bilirubin 0.2, Aspartate Amino Transf (AST/SGOT) 20, Alanine Aminotransferase (ALT/SGPT) 27, Alkaline Phosphatase 54, Total Protein 5.1, Albumin 2.7 08/25/19 04:47: Glucometer 116 08/25/19 11:09: Glucometer 138 08/25/19 15:50: Glucometer 112 08/25/19 20:05: Glucometer 211 08/26/19 04:05: Glucometer 137 08/26/19 11:28: Glucometer 123 08/26/19 15:34: Glucometer 153 08/26/19 19:53: Glucometer 147 Discharge Home Medications: Active Scripts Active Clotrimazole-Betamethasone Crm (Clotrimazole/Betamethasone Dip) 15 Gm Cream..g. 0 Gm TP BID 7 Days Reported Viagra (Sildenafil Citrate) 100 Mg Tablet 50-100 Mg PO DAILY PRN Lyrica (Pregabalin) 150 Mg Capsule 150 Mg PO BID Aspirin 81 Mg Tab.chew 81 Mg PO DAILY Farxiga (Dapagliflozin Propanediol) 10 Mg Tablet 10 Mg PO DAILY Depakote (Divalproex Sodium) 500 Mg Tablet.dr 500 Mg PO BID Vraylar (Cariprazine Hydrochloride) 1.5 Mg Capsule 1.5 Mg PO DAILY Diazepam 5 Mg Tablet 5 Mg PO Q6H PRN Hydrocodon-Acetaminophn 10-325 (Hydrocodone/Acetaminophen) 1 Each Tablet 1 Tab PO Q6H PRN Sertraline HCl 100 Mg Tablet 100 Mg PO DAILY Atorvastatin Calcium 40 Mg Tablet 40 Mg PO HS Cyclobenzaprine HCl 10 Mg Tablet 5 Mg PO QID PRN TAKES 1/2 (10MG) TABLET Metformin HCl ER (Metformin HCl) 500 Mg Tab.er.24 1,000 Mg PO BID TAKES 2 (500MG) TABLETS Clopidogrel (Clopidogrel Bisulfate) 75 Mg Tablet 75 Mg PO DAILY Carvedilol 6.25 Mg Tablet 6.25 Mg PO BID Pantoprazole Sodium 40 Mg Tablet.dr 40 Mg PO DAILY Losartan Potassium 25 Mg Tablet 25 Mg PO DAILY Nitroglycerin 0.4 Mg Tab.subl 0.4 Mg SL UD PRN DISSOLVE ONE TABLET UNDER THE TONGUE EVERY 5 MINUTES NEEDED FOR CHEST PAIN. DO NOT EXCEED A TOTAL OF 3 DOSES IN 15 MINUTES Instructions to patient/family Please see electronic discharge instructions given to patient. Diagnosis/Problems Diagnosis/Problems (1) Debility Status: Acute (2) Bipolar disorder (3) CAD (coronary artery disease) (4) Delirium (5) Edema (6) CHF (congestive heart failure) (7) Wheelchair bound (8) DAISY on CPAP (9) Former smoker Clinical Quality Measures DVT/VTE Risk/Contraindication: Risk Factor Score Per Nursin RFS Level Per Nursing on Admit: 3=High MANPREET SPENCER DO Aug 27, 2019 09:30
--- NOTE | 2019-08-27 10:25 | NUR ---
Notified by RN that patient will be discharging home this afternoon. Met with patient to discuss discharge. Patient reports he has talked with his and would like to utilize [facility] in [place] for home health PT, OT and nursing. Patient states he is ready to go home. He denies need for adaptive equipment, but states he might try to find a slide board to assist with tub/shower transfers. He also states his will need to move things down in the kitchen cupboards so he can reach them since he does the cooking at home. Patient states his spouse will be here between 1300 and 1400 to transport patient home.
--- NOTE | 2019-08-27 10:27 | Progress Note - Urology ---
Progress Note-Urology Progress Notes/Assess & Plan Progress/Assessment & Plan CONTINUES WELL ARREDONDO. OCCASIONAL ENURESIS. OK TO DISCHARGE ARREDONDO. KEEP ON TOFRANIL. SEE ME PRN Final Diagnosis NOCTURNAL ENURESIS MORGAN CORREA MD Aug 27, 2019 10:27
--- NOTE | 2019-08-27 10:38 | Occupational Ther Daily Note ---
OT Current Status-Daily Note Subjective Pt alert, sitting in recliner. Pt agrees to therapy. No c/o pain. Pt has gotten Life Vest, will be discharging today. Mental Status/Objective Patient Orientation: Person, Place, Time, Situation Attachments: Other-See Comments (life vest) ADL-Treatment Therapy Code Descriptions/Definitions Functional [place] Measure: 0=Not Assessed/NA 4=Minimal Assistance 1=Total Assistance 5=Supervision or Setup 2=Maximal Assistance 6=Modified [place] 3=Moderate Assistance 7=Complete IndependenceSCALE: Activities may be completed with or without assistive devices. 5-Kstjdajcpx-nvsrwft completes the activity by him/herself with no assistance from a helper. 5-Set-up or Clean-up Assistance-helper sets up or cleans up; patient completes activity. Burden assists only prior to or following the activity. 4-Supervision or Touching Assistance-helper provides verbal cues and/or touching/steadying and/or contact guard assistance as patient completes activity. Assistance may be provided throughout the activity or intermittently. 3-Partial/Moderate Assistance-helper does LESS THAN HALF the effort. Burden lifts, holds or supports trunk or limbs, but provides less than half the effort. 2-Substantial/Maximal Assistance-helper does MORE THAN HALF the effort. Burden lifts or holds trunk or limbs and provides more than half the effort. 3-Nuhmtqphj-xsfvkf does ALL the effort. Patient does none of the effort to complete the activity. Or, the assistance of 2 or more helpers is required for the patient to complete the activity. If activity was not attempted, code reason: 7-Patient Refused. 9-Not Applicable-not attempted and the patient did not perform the activity before the current illness, exacerbation or injury. 10-Not Attempted due to Environmental Limitations-(lack of equipment, weather restraints, etc.). 88-Not Attempted due to Medical Conditions or Safety Concerns. Eating (QC): 6 (Pt demonstrates ability to set up own meal and uses regular utensils to eat.) Oral Hygiene (QC): 6 (Standing at sink, pt able to complete own grooming.) Bathing Location: L Arm, R Arm, L Upper Leg, R Upper Leg, L Lower Leg (including foot), R Lower Leg (including foot), Chest, Abdomen, Buttocks, Perineal Area Shower/Bathe Self (QC): 6 (Using grabbar, hand held shower, shower bench and longe handle sponge pt completes by self.) Upper Body Dressing (QC): 6 (Transports with FWW and dons/doffs by self.) Lower Body Dressing (QC): 6 (Transports clothing using FWW and dons/doffs using procurement internship. FOOTWEAR (QC) 6-Dons/doffs by self.) Toileting Hygiene (QC): 6 (Pt demonstrates ability to complete by self using BSC, FWW and grabbars.) Toilet Transfer (QC): 6 (Demonstrates ability to complete by self using FWW, grabbars and BSC.) Pt able to don/doff life vest by self. Other Treatment Pt completed UE medium resistance theraband exercises using handout. Pt does require skilled instruction for technique and UE positioning when completing exercises. 1 set 15 reps completed with 6 exercises. After therapy, pt sitting in recliner with call light/phone in reach. All needs met in room. OT Short Term Goals Short Term Goals Grooming(FIM): 4 Bathing(FIM): 3 Toileting(FIM): 3 1=Demonstrate adherence to instructed precautions during ADL tasks. 2=Patient will verbalize/demonstrate understanding of assistive devices/modifications for ADL. 3=Patient will improve strength/tolerance for activity to enable patient to perform ADL's. OT Search And Rescue Officer Goals Detention Goals Eating (QC): 6 (met-08/27/2019) Oral Hygiene (QC): 6 (met-08/27/2019) Shower/Bathe Self (QC): 4 (met-08/27/2019) Upper Body Dressing (QC): 6 (met-08/27/2019) Lower Body Dressing (QC): 4 (met-08/27/2019) On/Off Footwear (QC): 4 (met-08/27/2019) Toileting Hygiene (QC): 5 (met-08/27/2019) Toilet/Commode Transfer (QC): 4 (met-08/27/2019) Additional Goals: 1-Demonstrate ADL Tasks, 2-Verbalize Understanding, 3- ImproveStrength/Melva 1=Demonstrate adherence to instructed precautions during ADL tasks. 2=Patient will verbalize/demonstrate understanding of assistive devices/modifications for ADL. 3=Patient will improve strength/tolerance for activity to enable patient to perform ADL's. OT Education/Plan Discharge Recommendations Plan/Recommendations: Discharge/Goals Met (Pt to discharge home) Treatment Plan/Plan of Care Patient would benefit from OT for education, treatment and training to promote independence in ADL's, mobility, safety and/or upper extremity function for ADL's. Plan of Care: ADL Retraining, Caregiver Training, Cognitive Retraining, C oncurrent Therapy, Functional Mobility, Group Exercise/Act as Ind, UE Funct Exercise/Act Treatment Duration: Sep 03, 2019 Frequency: At least 5 of 7 days/Wk (IRF) Estimated Hrs Per Day: 1.5 hours per day Agreement: Yes Rehab Potential: Fair Time/GCodes Start Time: 09:50 Stop Time: 10:20 Total Time Billed (hr/min): 90 Billed Treatment Time 1 visit-ADL 5 (75 min) EX 1 (15 min) TEDDY HAWKINS Aug 27, 2019 10:38
--- NOTE | 2019-08-27 11:04 | D/C HH Face to Face Order ---
D/C Face to Face Orders Reconcile Patient Problems Problems Reviewed?: Yes Instructions for Patient [facility] Patient Instructions/FollowUp: [facility] 1 week Physician to follow Patient: [facility] Discharge Diet for Home: Cardiac Diet Patient Problems: CHF s/p septic shock Goals for Patient: Return to independent living Patient Data-Allergies,Ht & Wt Patient Allergies: Coded Allergies: No Known Drug Allergies (Unverified , 04/23/19) Height (Feet): 5 Height (Inches): 8.00 Weight (Pounds): 255 Home Health Need/Face to Face Date of Face to Face: Aug 27, 2019 Clinical Findings: Generalized weakness and fatigue, Instability, Muscle weakness, Pain with ambulation, Shortness of breath, Unsteady gait I have seen Pt [id number]: Yes Discharged To: Home Diagnosis/Conditions: CHF s/p septic shock Patient is Homebound due to: CognItive deficits, Kelle fall risk due to instabilty, Muscle weakness, Pain w/ambulation, Shortness of breath/distress Homebound Status Due to the above stated illness, injury or surgical procedure (medical condition or diagnosis) and associated clinical findings, the patient is homebound because of his/her inability to leave home except with aid of a supportive device and/or person AND leaving the home requires a considerable and taxing effort or is medically contraindicated. Pt req the following assistanc: Walker Home Health Nursing Orders Home Health Services Order: Nursing Services (wrap legs), Dough Mixer Helper- Evaluate & Treat, Physical Therapy-Evaluate & Treat Certify Stmt I certify that this patient is under my care and that I, a nurse practitioner or a physician; a occupational therapy assistant working with me, had a face to face encounter that - meets the physician face to face encounter requirements with this patient as MANPREET Mcghee DO Aug 27, 2019 11:04
--- NOTE | 2019-08-27 12:02 | Physical Therapy Daily Note ---
PT Daily Note-Current Subjective Pt siting in recliner upon arrival. Pt agrees to Rx for QC scoring for d/c today. Pain Location: No Pain Reported Mental Status Patient Orientation: Person, Place, Time, Situation Attachments: Other-See Comments (LifeVest) Transfers SCALE: Activities may be completed with or without assistive devices. 1-Huvurfpflw-mtwzbdr completes the activity by him/herself with no assistance from a helper. 5-Set-up or Clean-up Assistance-helper sets up or cleans up; patient completes activity. [place] assists only prior to or following the activity. 4-Supervision or Touching Assistance-helper provides verbal cues and/or touching/steadying and/or contact guard assistance as patient completes activity. Assistance may be provided throughout the activity or intermittently. 3-Partial/Moderate Assistance-helper does LESS THAN HALF the effort. [place] lifts, holds or supports trunk or limbs, but provides less than half the effort. 2-Substantial/Maximal Assistance-helper does MORE THAN HALF the effort. [place] lifts or holds trunk or limbs and provides more than half the effort. 2-Jbqscejrx-ehdqdc does ALL the effort. Patient does none of the effort to complete the activity. Or, the assistance of 2 or more helpers is required for the patient to complete the activity. If activity was not attempted, code reason: 7-Patient Refused. 9-Not Applicable-not attempted and the patient did not perform the activity before the current illness, exacerbation or injury. 10-Not Attempted due to Environmental Limitations-(lack of equipment, weather restraints, etc.). 88-Not Attempted due to Medical Conditions or Safety Concerns. Transfers (B, C, W/C): 5 Roll Left to Right (QC): 5 Sit to Lying (QC): 5 Sit to Stand (QC): 5 Chair/Dmx-wl-Uennh Xfer(QC): 5 Bed to/from Chair: 5 Car Transfer (QC): 6 Pt uses bed rails to transfer from Supine to Sit. Pt will have family member build bed cane. Weight Bearing Weight Bearing/Tolerated Weight Bearing/Tolerated Gait Training Does the Patient Walk?: Yes Gait: 5 Distance: 150' Walk 10 feet (QC): 5 Walk 50 ft with 2 Turns(QC): 5 Walk 150 ft (QC): 5 Walking 10ft/uneven surface-QC: 5 Gait Persons Needed: 1 Gait Assistive Device: FWW Pt fatigues easily and needs occasional short RB. Wheelchair Training Does the Pt Use a Wheelchair?: No Stair Training Stair Training: Handrails/: uses walker #of Steps: 2 1 Step (curb) (QC): 4 Stairs: Pattern: Step to Level of Assist: 4 INTEGRITY ASSESSOR gives VC for sequencing but can complete, fatigued after completing. Balance Picking up an Object (QC): 88 Special Test Comments Pt has python django developer at home and will use this for picking up objects. Pt is not steady when bending over. Treatments Pt completes QC scoring items (see above) for anticipated d/c today. Pt returns to room to use restroom and rest. Pt has all needs met, call light next to pt. Assessment Current Status: Good Progress Pt continues to work on activity tolerance and fatigue. PT Short Term Goals Short Term Goals Wheelchair Distance: 50 ft PT Senior Living Goals Operations Executive Goals PT Senior Living Goals Time Frame: Sep 17, 2019 Sit to Lying (QC): 6 Lying-Sitting on Side/Bed(QC): 6 Sit to Stand (QC): 6 Roll Left to Right (QC): 6 Chair/Nms-sv-Patzv Xfer(QC): 6 Car Transfer (QC): 5 Does the Patient Walk: Yes Walk 10 feet (QC): 6 Walk 10ft-Uneven Surface(QC): 6 Walk 50ft with 2 Turns (QC): 5 Walk 150 ft (QC): 9 Gait Assistive Device: FWW Does the Pt use WC or Scooter?: Yes Wheel 50 feet with 2 turns (QC: 6 1 Step (curb) (QC): 4 (at a wheelchair level) 4 Steps (QC): 9 12 Steps (QC): 9 Picking up an Object (QC): 9 PT Plan Problem List Problem List: Activity Tolerance, Functional Strength Treatment/Plan Treatment Plan: Continue Plan of Care Treatment Plan: Bed Mobility, Education, Functional Activity Melva, Functional Strength, Group Therapy, Gait, Safety, Therapeutic Exercise, Transfers, Other (wc mobility) Treatment Duration: Sep 17, 2019 Frequency: At least 5 of 7 days/Wk (IRF) Estimated Hrs Per Day: 1.5 hours per day Patient and/or Family Agrees t: Yes Safety Risks/Education Patient Education: Gait Training, Transfer Techniques, Correct Positioning, Safety Issues Teaching Recipient: Patient Teaching Methods: Discussion Response to Teaching: Verbalize Understanding Time/GCodes Time In: 1045 Time Out: 1130 Total Billed Treatment Time: 45 Total Billed Treatment 1, FA x2 (30m) & GT (15m) YOLETTE BALLARD PTA Aug 27, 2019 12:02
--- NOTE | 2019-08-27 14:11 | Therapy Team Discharge Summary ---
Therapy Discharge Summary Discharge Recommendations Date of Discharge Physical Therapy Patient came to rehab with debility. Upon evaluation patient performed bed mobility and transfers with min/CGA, car transfers min assist, ambulated 15' with a rolling walker with min assist, and propelled a wheelchair 50' with min assist, no stairs at this time. Patient has been performing bed mobility and transfer training, balance and endurance training, functional strengthening, stair training, gait training, and education. Patient has made fair progress but has only met his shelter goals for stairs. Now, patient performs bed mobility with setup, transfers with setup, car transfer with independence, ambulates 150' with a rolling walker with setup (including 50' with at least 2 turns and 10' over an uneven surface), and can go up and down 2 steps using a rolling walker with CGA. Patient is discharging from this facility today and will be discharged from PT at this time. Occupational Therapy Decreased Activ Tolerance, Decreased UE Strength, Impaired Coordination, Impaired Funct Balance PT Care Home Goals Pharmacy Specialist Goals PT Pharmacy Specialist Goals Time Frame: Sep 17, 2019 Roll Left to Right (QC): 6 Sit to Lying (QC): 6 Lying-Sitting on Side/Bed(QC): 6 Sit to Stand (QC): 6 Chair/Iaa-jx-Ouifu Xfer(QC): 6 Car Transfer (QC): 5 Does the Patient Walk: Yes Walk 10 feet (QC): 6 Walk 10ft-Uneven Surface(QC): 6 Walk 50ft with 2 Turns (QC): 5 Walk 150 ft (QC): 9 Gait Assistive Device: FWW Does the Pt use WC or Scooter?: Yes Wheel 50 feet with 2 turns (QC: 6 1 Step (curb) (QC): 4 (at a wheelchair level) 4 Steps (QC): 9 12 Steps (QC): 9 Picking up an Object (QC): 9 OT Care Home Goals Care Home Goals Eating (QC): 6 (met-08/27/2019) Oral Hygiene (QC): 6 (met-08/27/2019) Shower/Bathe Self (QC): 4 (met-08/27/2019) Upper Body Dressing (QC): 6 (met-08/27/2019) Lower Body Dressing (QC): 4 (met-08/27/2019) On/Off Footwear (QC): 4 (met-08/27/2019) Toileting Hygiene (QC): 5 (met-08/27/2019) Toilet/Commode Transfer (QC): 4 (met-08/27/2019) Additional Goals: 1-Demonstrate ADL Tasks, 2-Verbalize Understanding, 3- ImproveStrength/Melva 1=Demonstrate adherence to instructed precautions during ADL tasks. 2=Patient will verbalize/demonstrate understanding of assistive devices/modifications for ADL. 3=Patient will improve strength/tolerance for activity to enable patient to perform ADL's. LEOBARDO HUBBADR PT Aug 27, 2019 14:10
--- NOTE | 2019-08-27 14:22 | Progress Note ---
ADRIANNAJOHN NAPIER [facility] 08/27/19 1422: Progress Note CC: UTI, Septic Shock, Lumbar and Cervical Stenosis * Came in for a UTI with confusion and Septic Shock * He was wheelchair bound prior to admission due to cervical and lumbar stenosis causing weakness in 4x extremities * He had a pressure sore on his rear from sitting in the wheelchair for extended periods * He was treated for the UTI and moved down to rehab unit * He responded very well to the therapy and is currently able to use a walker unassisted * He is able to bath, dress and use the restroom without assistance * He was placed in a cardiac LifeVest prior to being discharged * He has difficulty getting in and out of bed alone, but states he can sleep in a recliner until his brother in law builds him a device to assist in his bed transfers * He has been discharge to home with his in the LifeVest, with home health nursing for skin care on wounds on his feet due to chronic edema * He also has OT and PT scheduled to come to his home as well to help maintain his strength and recovery thus far AMANDA SPENCER DO 08/28/19 0859: Supervisory-Addendum Brief Verification & Attestation Participated in pt care: history, MDM, physical Personally performed: exam, history, MDM, supervision of care Care discussed with: Medical Student Procedures: n/a Results interpretation: Verified all documentation Verification and Attestation of Medical Student E/M Service A medical student performed and documented this service in my presence. I reviewed and verified all information documented by the medical student and made modifications to such information, when appropriate. I personally performed the physical exam and medical decision making. Amanda Spencer, Aug 28, 2019,08:59 [facility] RODAS [facility] Aug 27, 2019 14:22 AMANDA SPENCER DO Aug 28, 2019 08:59
[2019-08-27 15:06] VITALS: BP 123/83
--- NOTE | 2019-08-27 15:11 | NUR ---
Contacted [facility] Intake Line regarding referral for home health care PT, OT and nursing. [facility] is not able to accept self pay patients at this time. 1514-Telephoned patient's , Gladys, to inform her that [facility] is not able to accept patient at this time. Gladys discussed alternative provider with patient and would like a referral be made to [facility]. 1529-Referral faxed to [facility] for PT, OT and nursing.
--- NOTE | 2019-08-28 09:38 | NUR ---
Order for [facility] PT, OT and nursing signed by Dr. Jeffries and faxed to [facility].
--- NOTE | 2019-08-29 11:29 | Therapy Team Discharge Summary ---
Therapy Discharge Summary Discharge Recommendations Date of Discharge Aug 27, 2019 at 13:45 Occupational Therapy Pt admitted to ARU with debility. On admission pt required min assist with ba thing, max assist with LE dressing, and CGA with transfers and UE dressing. Skilled OT intervention focused on ADL training, transfers, strengthening, and safety. Pt made good progress with therapy and by discharge is completing basic ADLs and transfers with modified independence. Pt met all OT LTG. Pt discharged home with family support. D/c ARU OT at this time. Decreased Activ Tolerance, Decreased UE Strength, Impaired Coordination, Impaired Funct Balance PT Retirement Goals Garde Manger Goals PT Retirement Goals Time Frame: Sep 17, 2019 Roll Left to Right (QC): 6 Sit to Lying (QC): 6 Lying-Sitting on Side/Bed(QC): 6 Sit to Stand (QC): 6 Chair/Tdd-tb-Wbfuh Xfer(QC): 6 Car Transfer (QC): 5 Does the Patient Walk: Yes Walk 10 feet (QC): 6 Walk 10ft-Uneven Surface(QC): 6 Walk 50ft with 2 Turns (QC): 5 Walk 150 ft (QC): 9 Gait Assistive Device: FWW Does the Pt use WC or Scooter?: Yes Wheel 50 feet with 2 turns (QC: 6 1 Step (curb) (QC): 4 (at a wheelchair level) 4 Steps (QC): 9 12 Steps (QC): 9 Picking up an Object (QC): 9 OT [place] Goals Retirement Goals Eating (QC): 6 (met-08/27/2019) Oral Hygiene (QC): 6 (met-08/27/2019) Shower/Bathe Self (QC): 4 (met-08/27/2019) Upper Body Dressing (QC): 6 (met-08/27/2019) Lower Body Dressing (QC): 4 (met-08/27/2019) On/Off Footwear (QC): 4 (met-08/27/2019) Toileting Hygiene (QC): 5 (met-08/27/2019) Toilet/Commode Transfer (QC): 4 (met-08/27/2019) Additional Goals: 1-Demonstrate ADL Tasks, 2-Verbalize Understanding, 3- ImproveStrength/Melva 1=Demonstrate adherence to instructed precautions during ADL tasks. 2=Patient will verbalize/demonstrate understanding of assistive devices/modif ications for ADL. 3=Patient will improve strength/tolerance for activity to enable patient to perform ADL's. VISHNU ROSALES OT Aug 29, 2019 11:29
--- NOTE | 2019-08-29 14:44 | NUR ---
QC Clarification Discussed QC with interdisciplinary team: PT, OT and nursing. Discharge QC for 4 steps is 88. Discharge QC for 12 steps is 88.
== END 2019-08-27 13:45 | disposition home health service (06) | DRG 947 ==
PROVIDERS: ADMIT Internal Medicine; ATTEND Internal Medicine
DX: R53.1 Weakness (principal); N39.0 Urinary tract infection, site not specified; G83.4 Cauda equina syndrome; M48.02 Spinal stenosis, cervical region; M48.061 Spinal stenosis, lumbar region without neurogenic claudication; I25.5 Ischemic cardiomyopathy; I21.A1 Myocardial infarction type 2; I11.0 Hypertensive heart disease with heart failure; I50.22 Chronic systolic (congestive) heart failure; I25.10 Atherosclerotic heart disease of native coronary artery without angina pectoris; E11.40 Type 2 diabetes mellitus with diabetic neuropathy, unspecified; L89.150 Pressure ulcer of sacral region, unstageable; I87.2 Venous insufficiency (chronic) (peripheral); G47.33 Obstructive sleep apnea (adult) (pediatric); N39.41 Urge incontinence; N39.44 Nocturnal enuresis; B35.3 Tinea pedis; E78.5 Hyperlipidemia, unspecified; D64.9 Anemia, unspecified; F31.9 Bipolar disorder, unspecified; B96.4 Proteus (mirabilis) (morganii) as the cause of diseases classified elsewhere; Z99.3 Dependence on wheelchair; Z87.891 Personal history of nicotine dependence; Z95.5 Presence of coronary angioplasty implant and graft
CPT/HCPCS: 36415; 80053; 81000; 82962; 85025; 87088

== ENCOUNTER 2019-12-26 10:06 | Inpatient (IN) | payer MEDICAID ==
[~2019-12-26] VITALS: Ht 180 cm; Wt 102.9 kg
[~2019-12-26 10:06] MED LIST changes: +CLOT15CR6 TP; -DIAZ5TAB3 PO; +DIAZ5TAB49 PO
[2019-12-26] MEDS ORDERED: BISACODYL 10 MG SUPP (DULCOLAX) PR PRN (10:45)
[2019-12-26] MEDS ORDERED: CALCIUM CARBONATE 500 MG (TUMS) TAB.CHEW PO PRN (10:45)
[2019-12-26] MEDS ORDERED: ALPRAZolam 0.25 MG (XANAX) TAB PO PRN (10:45)
[2019-12-26] MEDS ORDERED: FLEET ENEMA ADULT 1 EA BTL PR PRN (10:45)
[2019-12-26] MEDS ORDERED: ONDANSETRON 4 MG (ZOFRAN) ORAL DISSOLVE TAB PO PRN (10:45)
[2019-12-26] MEDS ORDERED: DOCUSATE SODIUM 100 MG (COLACE) CAP PO PRN (10:45)
[2019-12-26] MEDS ORDERED: LOPERAMIDE 2 MG (IMODIUM) TABLET PO PRN (10:45)
[2019-12-26] MEDS ORDERED: MELATONIN 3 MG TABLET PO PRN (10:45)
[2019-12-26] MEDS ORDERED: LACTULOSE SYRUP 10GM/15ML (ENULOSE) 30ML UDC PO PRN (10:45)
[2019-12-26] MEDS ORDERED: diphenhydrAMINE 25 MG TAB (BENADRYL) PO PRN (10:45)
[2019-12-26] MEDS ORDERED: AMIO400T5 PO (12:07)
[2019-12-26] MEDS ORDERED: ROPI0.5T4 PO (12:07)
[2019-12-26] MEDS ORDERED: OXYC1TAB16 PO (12:07)
--- NOTE | 2019-12-26 12:08 | NUR ---
UPDATED MED REC WITH THE DISCHARGE SUMMARY REPORT FROM [facility]. THE FOLLOWING CHANGES WERE MADE AT THAT DISCHARGE: START TAKING: AMIODARONE 400MG BID (COREG 6.25MG BID WAS WELL BUT IT WAS ALSO ON THE LIST TO CONTINUE AND ON THE LIST FROM THE PATIENTS PREVIOUS VISIT HERE, I ASSUME THE PATIENT HAD ALREADY BEEN ON THAT) THE EXT MED HX CAN BE LOOKED AT WHEN THE ACCOUNT IS ACTIVE TO VERIFY IF ANY OTHER ORDERS WERE CHANGED. THE MED LIST WILL BE REVERTED BACK TO THE LIST OF MEDS THE PATIENT WAS TAKING PRIOR TO DISCHARGE ORDERS FROM [facility] AT A LATER DATE FOR PROPER DISCHARGE TO HOME ORDERS.
[2019-12-26] MEDS ORDERED: oxyCODONE/APAP 7.5-325 MG (PERCOCET 7.5) TABLET PO PRN ×2 (14:00→18:00)
[2019-12-26] MEDS ORDERED: NITROGLYCERIN 0.4 MG SL TABS BTL 25'S SL PRN (14:00)
[2019-12-26 14:35] VITALS: BP 107/52
--- NOTE | 2019-12-26 15:43 | Physical Therapy Evaluation ---
PT Evaluation-General Medical Diagnosis Admission Date Dec 26, 2019 at 14:45 Medical Diagnosis: central cord syndrome/NSTEMI/cervical stenosis Onset Date: Dec 11, 2019 Therapy Diagnosis Therapy Diagnosis: severe weakness and impaired mobility Height/Weight Height (Feet): 5 Height (Inches): 8.00 Weight (Pounds): 255 Precautions Precautions/Isolations: Fall Prevention, Standard Precautions Weight Bear Status Right Lower Extremity: Right Full Weight Bearing Left Lower Extremity: Left Full Weight Bearing Referral Physician: Nesha Reason for Referral: Evaluation/Treatment Medical History Pertinent Medical History: CAD, DM, [place] Current History [place] [facility] [place] due to complications from cervical surgery to repair cervical stenosis. Patient then had NSTEMI resulting in a 45 min code blue and ventilator use. Patient currently severely de bilitated requiring the skilled of 2 therapist to assist with all mobility (transfers, balance,bed mobility and shower with ADL's for safety and to address needs that an tech is not qualified for) Reviewed History: Yes Social History Home: Single Level Current Living Status: Spouse Entry Into Home: Stairs With Railing PT Steps Into Home: 1 Prior Prior Level of Function SCALE: Activities may be completed with or without assistive devices. 8-Lywzvkpwhl-kusgsgc completes the activity by him/herself with no assistance from a helper. 5-Set-up or Clean-up Assistance-helper sets up or cleans up; patient completes activity. [place] assists only prior to or following the activity. 4-Supervision or Touching Assistance-helper provides verbal cues and/or touching/steadying and/or contact guard assistance as patient completes activity. Assistance may be provided throughout the activity or intermittently. 3-Partial/Moderate Assistance-helper does LESS THAN HALF the effort. [place] lifts, holds or supports trunk or limbs, but provides less than half the effort. 2-Substantial/Maximal Assistance-helper does MORE THAN HALF the effort. [place] lifts or holds trunk or limbs and provides more than half the effort. 0-Imdvgahuo-yrglsp does ALL the effort. Patient does none of the effort to complete the activity. Or, the assistance of 2 or more helpers is required for the patient to complete the activity. If activity was not attempted, code reason: 7-Patient Refused. 9-Not Applicable-not attempted and the patient did not perform the activity before the current illness, exacerbation or injury. 10-Not Attempted due to Environmental Limitations-(lack of equipment, weather restraints, etc.). 88-Not Attempted due to Medical Conditions or Safety Concerns. Bed Mobility: 5 Transfers (B,C,W/C): 5 Gait: 5 Stairs: 5 Indoor Mobility (Ambulation): Independent Stairs: Independent Prior Devices Use: Walker FWW PT Evaluation-Current Subjective Patient reports extreme fatigue. SAO2 97% RA and BP 107/52. Pain Numeric Pain Scale: 5-Moderate Pain Location: Right, Left Location Body Site: Shoulder Pain Description: Ache Objective Patient Orientation: Normal For Age [place] cervical collar ROM/Strength ROM Upper Extremities see OT ROM Lower Extremities bilateral LE WFL AAROM Strength Upper Extremities see OT Strength Lower Extremities right DF/PF 2+/5;knee flexion/extension 3-/5; hip flexion 3-/5 left DF/PF 2+/5; knee flexion/extension 3-/5; hip flexion 3-/5 Integumentary/Posture Integumentary refer to nursing notes Bladder Incontinence: Zimmerman Cath Posture WFL Neuromuscular (Tone, Coordination, Reflexes) grossly intact/severe debility/weakness with noted diminished proprioception and coordination Sensory Vision: Functional Hearing: Functional Sensation Right Lower Extremit: Intact Sensation Left Lower Extremity: Intact Transfers Roll Left to Right (QC): 3 (x 2) Sit to Lying (QC): 3 (x 2) Lying to Sitting/Side of Bed(Q: 3 (x) Sit to Stand (QC): 3 (x 2) Chair/Mvj-ab-Tlxrt Xfer(QC): 3 (x2) Toilet Transfer: 88 Car Transfer (QC): 3 (x 2) PT address balance and sit to stand while OT address pivot and body position to ensure patient safety in attaining proper transfer Gait Does the Patient Walk?: No and Walking Goal IS indicated Mode of Locomotion: Both Anticipated Mode of Locomotion: Both Walk 10 feet (QC): 88 Walk 50 ft with 2 Turns(QC): 88 Walk 150 ft (QC): 88 Walking 10ft/uneven surface-QC: 88 Gait Assistive Device: Walker Platform (bilateral platform FWW) Comments/Gait Description unable to tolerated gait training due to extreme fatigue and weakness Wheelchair Training Does the Pt Use a Wheelchair?: Yes Distance: 5' Wheel 50 ft with 2 turns (QC): 88 Wheel 150 ft (QC): 88 Type of Wheelchair: Manual Stairs 1 Step (curb) (QC): 88 4 Steps (QC): 88 12 Steps (QC): 9 Balance Sitting Static: Fair Sitting Dynamic: Fair Standing Static: Fair Standing Dynamic: Fair (fair-) Picking up an Object (QC): 88 Treatment PT/OT cotreat due to patient requiring the skill of 2 therapist to address functional mobility, balance, transfers, bed mobility, shower and transfer and ADL's. PT address all transfers and balance during OT addressing shower and ADL's. PT focused on lower body positioning with w/c mobility, all transfers and bed mobility, while OT address UE and trunk positioning. Patient is mod assist x 2 with all mobility due to weakness and severe debility. Assessment/Needs 54 y.o. severely debilitated male, requiring the skill of PT/OT cotreat due to stated above LOF, will benefit from skilled PT to address functional strength and mobility to improve current LOF to safely return to home with spouse at maximum LOF. Rehab Potential: Fair PT Rag Grader Goals Rag Grader Goals PT Rag Grader Goals Time Frame: Jan 24, 2020 Roll Left & Right (QC): 5 Sit to Lying (QC): 5 Lying-Sitting on Side/Bed(QC): 5 Sit to Stand (QC): 5 Chair/Kcn-dt-Ggqvh Xfer(QC): 5 Toilet Transfer (QC): 5 Car Transfer (QC): 5 Does the Patient Walk: Yes Walk 10 feet (QC): 5 Walk 50ft with 2 Turns (QC): 5 Walk 150 ft (QC): 5 Walking 10ft on Uneven Surface: 5 1 Step (curb) (QC): 5 4 Steps (QC): 5 12 Steps (QC): 9 Picking up an Object (QC): 5 Type: N/A Type: N/A PT Plan Problem List Problem List: Activity Tolerance, Functional Strength, Safety, Balance, Gait, Transfer, Bed Mobility Treatment/Plan Treatment Plan: Continue Plan of Care Treatment Plan: Bed Mobility, Concurrent Therapy, Education, Functional Activit y Melva, Functional Strength, Group Therapy, Gait, Safety, Therapeutic Exercise, Transfers Treatment Duration: Jan 24, 2020 Frequency: At least 5 of 7 days/Wk (IRF) Estimated Hrs Per Day: 1.5 hours per day Patient and/or Family Agrees t: Yes Safety Risks/Education Patient Education: Transfer Techniques, Safety Issues Teaching Recipient: Patient Teaching Methods: Discussion Response to Teaching: Verbalize Understanding, Return Demonstration Time/GCodes Time In: 1434 Time Out: 1534 Total Billed Treatment Time: 50 (PT EVM 10 min (4184-6446)OT eval 10 min (1445- 1455)COTREAT 40 min (0130-8671)) Total Billed Treatment 1 visit EVModC 10 min (6333-1239 PT) FA x 3 40 min (cotreat with OT [id number]) OT eval (1411-8682) ALBERTO LEVINE PT Dec 26, 2019 15:43
--- NOTE | 2019-12-26 15:56 | Occupational Therapy Eval ---
OT Evaluation-General/PLF Medical Diagnosis Admission Date Dec 26, 2019 at 14:45 Medical Diagnosis: central cord syndrome Onset Date: Dec 11, 2019 Therapy Diagnosis Therapy Diagnosis: impaired self care skills Height/Weight Height (Feet): 5 Height (Inches): 8.00 Weight (Pounds): 255 Precautions Comments Per chart from outside hospital pt is to wear rigid collar at all times, but may remove for shower if seated for shower. No lifting over 10 pounds. No excessive bending, lifting, or twisting at the waist for 3 months Referral Physician: Nesha Medical History Pertinent Medical History: Arthritis, CAD, DM, HTN, [place], Rheumatoid Arthritis Additional Medical History seizures, bipolar Current History transferred from [facility] after extended stay due to complications from cervical surgery to repair cervical stenosis. Patient then had NSTEMI resulting in a 45 min code blue and ventilator use. Reviewed History: Yes Social History Home: Single Level Current Living Status: Spouse ADL-Prior Level of Function SCALE: Activities may be completed with or without assistive devices. 0-Cckwxvqlgh-rbdrwnz completes the activity by him/herself with no assistance from a helper. 5-Set-up or Clean-up Assistance-helper sets up or cleans up; patient completes activity. [place] assists only prior to or following the activity. 4-Supervision or Touching Assistance-helper provides verbal cues and/or touching/steadying and/or contact guard assistance as patient completes activity. Assistance may be provided throughout the activity or intermittently. 3-Partial/Moderate Assistance-helper does LESS THAN HALF the effort. [place] lifts, holds or supports trunk or limbs, but provides less than half the effort. 2-Substantial/Maximal Assistance-helper does MORE THAN HALF the effort. [place] lifts or holds trunk or limbs and provides more than half the effort. 4-Yjkrkalxu-ttipsz does ALL the effort. Patient does none of the effort to complete the activity. Or, the assistance of 2 or more helpers is required for the patient to complete the activity. If activity was not attempted, code reason: 7-Patient Refused. 9-Not Applicable-not attempted and the patient did not perform the activity before the current illness, exacerbation or injury. 10-Not Attempted due to Environmental Limitations-(lack of equipment, weather restraints, etc.). 88-Not Attempted due to Medical Conditions or Safety Concerns. ADL PLOF Comments Pt reports that prior to hospitalization he was able to complete basic self care without assist. DME/Equipment: Bath Chair, Grab Bars, Shower OT Current Status Subjective Pt arrived via private vehicle from outside facility. Pt reports fatigue, but requests to shower. Pt reports 7/10 pain in neck and bilateral shoulders. Mental Status/Objective Patient Orientation: Person, Place Attachments: Zimmerman Catheter Current Hand Dominance: Right Upper Extremity ROM pt demonstrates bilateral shoulder ROM to ~90 degrees. Upper Extremity Coordination Decreased bilaterally Upper Extremity Strength formal MMT not completed secondary to recent cervical surgery, but pt demonstrates decreased strength L>R ADL-Treatment Shower/Bathe Self (QC): 2 (Pt completed bathing while seated. Pt able to assist with washing bilteral UE, but requires assist for all other areas secondary to weakness and fatigue.) Upper Body Dressing (QC): 1 (Pt required total assist to doff/don button up shirt.) Lower Body Dressing (QC): 1 (Pt required assist to thread bilateral LE into Depends and pants. Stood with mod assist x2 for balance. Assist to complete pant hike.) On/Off Footwear (QC): 1 (Total assist to doff/don footwear.) Other Treatments Co-treat with PT secondary to severe debility and impaired activity tolerance requiring the skill of two therapists. OT focusing on ADL completion, UE positioning, and safety. PT focusing on mobility, balance during ADLs, and transfers. Pt fatigues quickly with activity and requires rest breaks throughout session. Mod assist x2 required for safe transfers. Pt resting in bed with needs met and spouse present after session. Education OT Patient Education: Rehab process Teaching Recipient: Patient Teaching Methods: Discussion Response to Teaching: Verbalize Understanding OT Short Term Goals Short Term Goals Time Frame: Jan 09, 2020 Eatin Oral hygiene: 4 Toileting hygiene: 3 Shower/bathe self: 3 Upper body dressin Lower body dressin OT Custodial Goals Custodial Goals Time Frame: Jan 23, 2020 Eating (QC): 5 Oral Hygiene (QC): 5 Toileting Hygiene (QC): 4 Shower/Bathe Self (QC): 4 Upper Body Dressing (QC): 5 Lower Body Dressing (QC): 5 On/Off Footwear (QC): 5 Additional Goals: 1-Demonstrate ADL Tasks, 2-Verbalize Understanding, 3- ImproveStrength/Melva 1=Demonstrate adherence to instructed precautions during ADL tasks. 2=Patient will verbalize/demonstrate understanding of assistive devices/modifications for ADL. 3=Patient will improve strength/tolerance for activity to enable patient to perform ADL's. OT Education/Plan Problem List/Assessment Assessment: Decreased Activ Tolerance, Decreased UE Strength, Dependent Transfers, Impaired Coordination, Impaired Funct Balance, Impaired I ADL's, Impaired Self-Care Skills Pt to benefit from skilled OT intervention for ADL training, transfers, strengthening, and home safety education to increase level of function and allow safe discharge. Discharge Recommendations Plan/Recommendations: Continue POC Treatment Plan/Plan of Care Treatment,Training & Education: Yes Patient would benefit from OT for education, treatment and training to promote independence in ADL's, mobility, safety and/or upper extremity function for ADL's. Plan of Care: ADL Retraining, Functional Mobility, Group Exercise/Act as Ind, UE Funct Exercise/Act, UE Neuromus Re-Ed/Coord Treatment Duration: Jan 23, 2020 Frequency: At least 5 of 7 days/Wk (IRF) Estimated Hrs Per Day: 1.5 hours per day Agreement: Yes Rehab Potential: Fair Time/GCodes Start Time: 14:45 Stop Time: 15:35 Total Time Billed (hr/min): 50 Billed Treatment Time 1 visit, EVM 10minutes([id number]) ADLx3(40minutes) Co-treat with PT [id number] VISHNU ROSALES OT Dec 26, 2019 15:56
--- NOTE | 2019-12-26 16:12 | ST Cognitive Linguistic Eval ---
Speech Evaluation-General Medical Diagnosis central cord syndrome/NSTEMI/cervical stenosis Onset Date: Dec 11, 2019 Therapy Diagnosis Therapy Diagnosis: Cognitive-communication Referral Referring Physician: Dr. Jeffries Reason for Referral: Evaluation/Treatment Medical History Pertinent Medical History: CAD, DM, [place] Reviewed History: Yes Social History Current Living Status: Spouse Speech PLF-Current Status Prior Level of Function Patient reported normal cognitive-communication prior to hospital admission. Subjective Patient was alert and cooperative for all evaluation tasks. Patient reported that he was feeling very tired after taking a shower. Patient sat upright in his bed for the duration of the evaluation. Language Eval: Auditory Comprehends Simple Yes/No Ques: Functional Indent/Objects Multiple [place]: Functional Ident/Pics in Multiple [place]: Functional Follows 1-Step Commands: Functional Follows Complex Directions: Functional Follows General Conversations: Functional Language Eval: Verbal Language Completes Spontaneous Greeting: Functional Produces Auto, Serial Info: Functional Imitates Simple Words/Phrases: Functional Word Finding: Functional Requests Basic Needs: Functional States Basic Personal Info: Functional Expresses Complex Ideas: Functional Objective Cognitive Domain Attention: WNL Memory: WNL Problem Solving: Functional Executive Functions: WNL Visuospatial Skills: WNL Composite Severity Rating: WNL Clock Drawing Severity Rating: WNL Objective Formal/Standardized Tests [facility] Mental Status (UMS) Examination was administered. Results The patient was administered the SLUMS and scored 27/30 which falls within normal limits of cognitive function. Oral Motor/Speech Production Within functional limits. Impression Patient was admitted to the ARU s/p cervical stenosis. Patient was administered the SLUMS and scored 27/30 which falls within normal limits of cognitive function. Patient does not require skilled ST services at this time. Speech Patient Assess Expression of Ideas/Wants: Expression (4) Understanding Verbal Content: Understands (4) Brief Interview-Mental Status: Yes Repetition of Three Words: Three (3) Temporal Orientation: Year: Correct (3) Temporal Orientation: Month: Accurate within 5 days(2) Temporal Orientation: Day: Correct (1) Recall : Wear to say "Sock": Yes, no cue required (2) Recall : Color: Yes, no cue required (2) Recall : Bed: Yes,after cueing (1) Memory/Recall Ability: Current season, That he or she is in a hsp/hsp unit Speech-Plan Patient/Family Goals Patient/Family Goals: Patient reports that he wishes to return home to previous level of mobility and independence. Treatment Plan Speech Therapy Treatment Plan: Discontinue ST Treatment Duration: Dec 26, 2019 Frequency: 1 time per week Estimated Hrs Per Day: .25 hour per day Rehab Potential: Fair Barriers to Learning: None identified. Pt/Family Agrees to Plan: Yes Safety Risks/Education Teaching Recipient: Patient, Significant Other Teaching Methods: Demonstration, Discussion Response to Teaching: Verbalize Understanding Education Topics Provided: Evaluation tasks and safety awareness. Time Speech Therapy Time In: 15:35 Speech Therapy Time Out: 15:45 Total Billed Time: 10 Billed Treatment Time 1, SPSISRA Sheth Dec 26, 2019 16:12
--- NOTE | 2019-12-26 16:22 | ST Dysphagia Evaluation ---
Speech Evaluation-General Medical Diagnosis central cord syndrome/NSTEMI/cervical stenosis Onset Date: Dec 11, 2019 Therapy Diagnosis Therapy Diagnosis: Oropharyngeal Dysphagia Precautions Precautions: Aspiration Referral Referring Physician: Dr. Jeffries Reason for Referral: Evaluation/Treatment Medical History Pertinent Medical History: CAD, DM, [place] Reviewed History: Yes Social History Current Living Status: Spouse Speech PLF/Current-Dysphagia Prior Level of Function Patient reports no deficits in swallowing prior to hospital admission. Subjective Patient reported that he is on a modified DYSPHAGIA II diet with nectar thickened liquids. Patient was alert and fatigued during the evaluation. P atients was present for all evaluation tasks. Cognitive Status Patient Orientation: Person, Place, Time, Situation Oral Motor Skills Dentition: Natural Current Food Consistancy: Mechanical Soft, [place] Liquids Ability to Follow Directions: Fair Oral Expression Ability: No Impairment Voice Voice Phonatory-Based Quality: Normal Voice Pitch: Normal Voice Loudness: Normal Face Facial Symmetry: Symmetrical Oral-Facial Assessment Oral-Facial Dentition: Normal Labial Seal Description: Normal Lingual Protrusion: Normal Lingual ROM: Normal Lingual Strength: Normal Dysphagia Evaluation Consistencies Presented: [place] Thick Liquid Dietary Recommendations: Mechanical Soft Liquid Recommendations: [place] Consistancy Swallowing Precautions: Alternate Liquids/Solids, Chin Tuck, Double Swallow, Decreased Bolus 1/2 Tsp, Liquids from Spoon, Oral Supervision Staff, Oral Supervision Caregiver, Small Bites and Sips, Sitting Upright 90 Degrees, Sitting 90 Degrees 30 Post Intake Dysphagia Evaluation Summary Patient was admitted to the ARU s/p spinal stenosis. Patient was presented nectar thickened liquid via 1/2 tsp spoon and demonstrated no s/s of penetration or aspiration. Patient has been on a modified diet prior to admission to the ARU and is recommended to receive a DYSPHAGIA II diet with nectar thickened liquids. Patient will utilize compensatory strategies of sitting upright, alternating liquids and solids, and small bites and sips to promote safe and effective oral intake during all meal times. Barriers to Learning Current medical status. Speech Short Term Goals Short Term Goals Short Term Goals 1. Patient will tolerate least restrictive diet without s/s of aspiration at 90% or greater. 2. Patient/caregiver will utilize compensatory strategies as trained at 90% with minimal cues. Speech Art History Instructor Goals Mcfp Goals Patient will maintain adequate nutrition/hydration via safe and effective swallow function. Speech-Plan Patient/Family Goals Patient/Family Goals: Patient reported wanting to return home to prior level of independence and swallow function. Treatment Plan Speech Therapy Treatment Plan: Continue Plan of Care Treatment Duration: Jan 02, 2020 Frequency: 5 times per week Estimated Hrs Per Day: .5 hour per day Rehab Potential: Fair Barriers to Learning: Current medical status Pt/Family Agrees to Plan: Yes Safety Risks/Education Teaching Recipient: Patient Teaching Methods: Demonstration, Discussion Response to Teaching: Verbalize Understanding Education Topics Provided: Utilization of compesatory strategies during all oral intake. Time Speech Therapy Time In: 15:45 Speech Therapy Time Out: 15:55 Total Billed Time: 10 Billed Treatment Time JasonDIMITRI BETHANIA ST Dec 26, 2019 16:22
[2019-12-26] MEDS: DIAZEPAM 5 MG (VALIUM) TABLET PO PRN (17:26)
[2019-12-26] MEDS: ENOXAPARIN 40 MG/0.4 ML (LOVENOX) SYR SC SCH (17:28)
[2019-12-26] MEDS ORDERED: morphine INJ 4 MG/ML 1 ML (VIAL/SYRINGE) IVP PRN (19:00)
[2019-12-26] MEDS: DIVALPROEX 500 MG DELAYED RELEASE (DEPAKOTE) TAB PO SCH (20:01)
[2019-12-26] MEDS: CYCLOBENZAPRINE 10 MG (FLEXERIL) TAB PO PRN (20:01)
[2019-12-26] MEDS: PREGABALIN 150 MG (LYRICA) CAPSULE PO SCH (20:02)
[2019-12-26] MEDS: AMIODARONE 200 MG (CORDARONE) TAB PO SCH (20:02)
[2019-12-26] MEDS: polyethylene glycoL POWDER 17 GM (MIRALAX) PACK PO SCH (20:03)
[2019-12-26] MEDS: CARVEDILOL 6.25 MG (COREG) TAB PO SCH (20:03)
[2019-12-26] MEDS: TAMSULOSIN 0.4 MG (FLOMAX) CAP PO SCH (20:03)
[2019-12-26] MEDS: SENNA W/DOCUSATE (SENOKOT S) TABLET PO SCH (20:03)
[2019-12-26 20:09] VITALS: BP_SYST 107; BP_SYST 111; BP_DIAS 52; BP_DIAS 79
[2019-12-26] MEDS ORDERED: FLU QUADRIvalent (5+ YOA) 2019-2020 (AFLURIA) 0.5 ML IM ONE (20:30)
--- NOTE | 2019-12-26 20:58 | PM&R Post Admission Assessment ---
PM&R HP Date of Visit: Dec 26, 2019 Time of Visit: 18:30 History of Present Illness CC: Cardiac arrest debility HPI: This is a 54yoWM known to me from severe sepsis episode requiring lengthy hospital stay along with IRF who presents from [facility] after undergoing cervical spine surgery due to central cord syndrome requiring wheelchair bound status but complicated with cardiac arrest due to ventricular arrhythmia of V fib requiring CPR and code blue protocol for 45 minutes then placed on Amiodarone IV and stents placed 12/18/[address] Lovelace. Citrobacter PNA fully treated at [facility] and MRI did not reveal any anoxic brain injury. He maintains on CPAP and has had urinary retention requiring levy placement due to failing voiding trial. Constipation is also an issue that will be resolved. C-spine is currently restricted in a hard brace and patient is ambulatory now since the success of the surgery. Past Kaiewaz-Gcvhqf-Lbjylh Hx Past Med/Social Hx: Reviewed Nursing Past Med/Soc Hx, Reviewed and Corrections made Patient Social History Marrital Status: Employed/Student: unemployed Alcohol Use: Denies Use Recreational Drug Use: No Smoking Status: Former Smoker Type Used: Pipe 2nd Hand Smoke Exposure: No Physical Abuse Screen: No Sexual Abuse: No Recent Foreign Travel: No Contact w/other who traveled: No Recent Hopitalizations: Yes (hodges) Recent Infectious Disease Expo: No Immunizations Up To Date Date of Pneumonia Vaccine: Aug 17, 2015 Date of Influenza Vaccine: Aug 17, 2017 Seasonal Allergies Seasonal Allergies: No Past Medical History Surgeries: Orthopedic Respiratory: COPD, Pneumonia, Sleep Apnea Currently Using CPAP: Yes Currently Using BIPAP: No Cardiac: Cardiomyopathy, Chronic Edema/Swelling, Coronary Artery Disease, High Cholesterol, Hypertension Neurological: Neuropathy, Paralysis, Spinal Cord Injury Genitourinary: Bladder Infection, Renal Failure Gastrointestinal: Chronic Constipation, Ulcer Musculoskeletal: Arthritis, Chronic Back Pain Endocrine: Diabetes, Non-Insulin dep Psychosocial: Bipolar History of Blood Disorders: No Family History Cardiovascular disease G8 SISTER Diabetes mellitus G8 SISTER Prior Level of Function Bed Mobility: 5 Transfers: 5 Gait: 5 Stairs: 5 Indoor Mobility (Ambulation): Independent Stairs: Independent Prior Devices Use: Walker 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 Current Level of Fuctioning Roll Left to Right: 3 (x 2) Sit to Lyin (x 2) Lying to Sitting/Side of Bed: 3 (x) Sit to Stand: 3 (x 2) Chair/Fgy-ps-Dareu Xfer: 3 (x2) Car Transfer: 3 (x 2) Does the Patient Walk: No and Walking Goal IS indicated Mode of Locomotion: Both Anticipated Mode of Locomotion: Both Walk 10 feet: 88 Walk 50 ft with 2 Turns: 88 Walk 150 ft: 88 Walking 10ft on uneven surface: 88 Gait Assistive Device: Walker Platform (bilateral platform FWW) Does the Pt Use a Wheelchair: Yes Wheelchair Distance: 5' Wheel 50 ft with 2 turns: 88 Wheel 150 ft: 88 Type of Wheelchair: Manual 1 Step (curb): 88 4 Steps: 88 12 Steps: 9 Picking up an Object: 88 Shower/Bathe Self: 2 (Pt completed bathing while seated. Pt able to assist with washing bilteral UE, but requires assist for all other areas secondary to weakness and fatigue.) Upper Body Dressin (Pt required total assist to doff/don button up shirt.) Lower Body Dressin (Pt required assist to thread bilateral LE into Depends and pants. Stood with mod assist x2 for balance. Assist to complete pant hike.) On/Off Footwear: 1 (Total assist to doff/don footwear.) PM&R Allergy/Meds/Data Review Allergies Coded Allergies: No Known Drug Allergies (Unverified , 04/23/19) Home Medications Scheduled Amiodarone HCl (Amiodarone HCl), 400 MG PO BID, (Reported) Aspirin (Aspirin), 81 MG PO DAILY, (Reported) Atorvastatin Calcium (Atorvastatin Calcium), 40 MG PO HS, (Reported) Cariprazine Hydrochloride (Vraylar), 1.5 MG PO DAILY, (Reported) Carvedilol (Carvedilol), 6.25 MG PO BID, (Reported) Clopidogrel Bisulfate (Clopidogrel), 75 MG PO DAILY, (Reported) Dapagliflozin Propanediol (Farxiga), 10 MG PO DAILY, (Reported) Divalproex Sodium (Depakote), 500 MG PO BID, (Reported) Losartan Potassium (Losartan Potassium), 25 MG PO DAILY, (Reported) Pantoprazole Sodium (Pantoprazole Sodium), 40 MG PO DAILY, (Reported) Pregabalin (Lyrica), 150 MG PO BID, (Reported) Ropinirole HCl (Ropinirole HCl), 0.5 MG PO DAILY, (Reported) Sertraline HCl (Sertraline HCl), 100 MG PO DAILY, (Reported) Scheduled PRN Cyclobenzaprine HCl (Cyclobenzaprine HCl), 5 MG PO QID PRN for MUSCLE SPASMS, (Reported) Diazepam (Diazepam), 5 MG PO BID PRN for ANXIETY, (Reported) Nitroglycerin (Nitroglycerin), 0.4 MG SL UD PRN for CHEST PAIN, (Reported) Oxycodone HCl/Acetaminophen (Percocet 7.5-325 mg Tablet), 1 TAB PO TID PRN for PAIN-MODERATE (5-7), (Reported) Discontinued Medications Clotrimazole/Betamethasone Dip (Clotrimazole-Betamethasone Crm), 0 GM TP BID Discontinued Reason: No Longer Taking Hydrocodone/Acetaminophen (Hydrocodon-Acetaminophn 10-325), 1 TAB PO Q6H PRN for PAIN-MODERATE, (Reported) Discontinued Reason: Duplicate Order Sildenafil Citrate (Viagra), 50-100 MG PO DAILY PRN for ED, (Reported) Discontinued Reason: No Longer Taking Current Medications Current Medications Reviewed Review of Systems Constitutional: see HPI, dizziness, malaise, weakness EENTM: throat pain, throat swelling Respiratory: dyspnea on exertion, short of breath, wheezing Cardiovascular: chest pain Gastrointestinal: loss of appetite, nausea Genitourinary: other (retention) Musculoskeletal: back pain, neck pain Skin: no symptoms reported Psychiatric/Neurological: Anxiety, Depressed, Emotional Problems All Other Systems Reviewed Negative Unless Noted: Yes Physical Exam Physical Exam Vital Signs Vital Signs - First Documented 12/26/19 14:35 Temp 36.3 Pulse 83 Resp 22 B/P (MAP) 107/52 (70) Pulse Ox 94 O2 Delivery Room Air Capillary Refill : Height, Weight, BMI Height: 5'8.00" Weight: 255lbs. oz. 115.878659mz; 32.09 BMI Method:Stated General Appearance: WD/WN, Anxious, Chronically ill, Mild Distress, Other (very fatigued, [place]) Eyes: Bilateral Eye Normal Inspection, Bilateral Eye PERRL HEENT: PERRL/EOMI, Normal ENT Inspection, Pharynx Normal Neck: Non Tender, Supple, Carotid Bruit, Other (limited ROM in brace) Respiratory: Chest Non Tender, Lungs Clear, No Accessory Muscle Use, No Respiratory Distress, Decreased Breath Sounds Cardiovascular: No Gallop, No JVD, No Murmur, Normal Peripheral Pulses, Tachycardia Gastrointestinal: Normal Bowel Sounds, No Organomegaly, No Pulsatile Mass, Non Tender, Soft Back: Normal Inspection, No CVA Tenderness, No Vertebral Tenderness Extremity: Normal Capillary Refill, Normal Inspection, Normal Range of Motion, Non Tender, No Calf Tenderness, Pedal Edema Neurologic/Psychiatric: Alert, Oriented x3, Normal Mood/Affect, business management associate II-XII Norm as Tested, Abnormal Gait, Depressed Affect, Motor Weakness (weakness upper and lower extremities) Skin: Normal Color, Warm/Dry Lymphatic: No Adenopathy PM&R Medical Assessment & Plan REHAB/MEDICAL ASSESSMENT AND PLAN: REHAB IMPAIRMENT GROUP: Cardiac arrest with severe debility with cervical spine injury ETIOLOGIC DIAGNOSIS: Cardiac arrest with severe debility with cervical spine injury The comorbidities that impact the patients function and/or functional outcome by: Severe weakness and debility, cardiac arrest with vent fib REHAB PLAN: The patient is being admitted to our comprehensive inpatient rehabilitation facility and can tolerate the intensity of service consisting of at least: 180 minutes of therapy a day, 5 out of 7 days a week Rehab treatment will consist of: PT OT will cotreat due to severe debility and weakness after cardiac arrest and vent fib The patient/family has a good understanding of our discharge process and will benefit from an interdisciplinary inpatient rehabilitation program. The patient has potential to make improvement and is in need of at least two of the [facility] multidisciplinary therapies including but not limited to physical, occupational, speech, and prosthetics and orthotics. Additionally the patient will need services from respiratory, nutritional services, wound care, psychology, etc. (Customize this to each patient). Given the patients complex condition and risk of further medical complications, rehabilitation services cannot be safely or effectively provided at a lower level of care such as a snf facility. BARRIERS TO DISCHARGE: Severe weakness acute on chronic ESTIMATED LOS: 10 days DISPOSITION: Home RELEVANT CHANGES SINCE PREADMISSION SCREENING: I have compared the patients medical and functional status at the time of the preadmission screening and there are: no changes PROGNOSIS: Fair REHABILITATION GOALS: 1. PT OT will cotreat due to severe debility and weakness after cardiac arrest and vent fib All the above goals were reviewed with the patient and he/she is in agreement. By signing this document, I acknowledge that I have personally performed a full physical examination on this patient within 24 hours of admission to this inpatient rehabilitation facility and have determined the patient to be able to tolerate the above course of treatment at an intensive level for a reasonable period of time. I will be completing a detailed individualized Plan of Care for this patient by day #4 of the patients stay based upon the Preadmission Screen, the Post-Admission Evaluation, and the therapy evaluations. Admission Dx/Comorbidities: (1) Central cord syndrome ICD Codes: S14.129A - Central cord syndrome at unspecified level of cervical spinal cord, initial encounter (2) Spinal cord compression ICD Codes: G95.20 - Unspecified cord compression (3) Former smoker ICD Codes: Z87.891 - Personal history of nicotine dependence (4) Bipolar disorder ICD Codes: F31.9 - Bipolar disorder, unspecified (5) Delirium ICD Codes: R41.0 - Disorientation, unspecified (6) Edema ICD Codes: R60.9 - Edema, unspecified (7) Wheelchair bound ICD Codes: Z99.3 - Dependence on wheelchair (8) DAISY on CPAP ICD Codes: G47.33 - Obstructive sleep apnea (adult) (pediatric); Z99.89 - Dependence on other enabling machines and devices (9) CAD (coronary artery disease) ICD Codes: I25.10 - Atherosclerotic heart disease of [place] coronary artery without angina pectoris (10) CHF (congestive heart failure) ICD Codes: I50.9 - Heart failure, unspecified (11) UTI (urinary tract infection) ICD Codes: N39.0 - Urinary tract infection, site not specified (12) Debility Status: Acute ICD Codes: R53.81 - Other malaise (13) Sacral pressure ulcer ICD Codes: L89.159 - Pressure ulcer of sacral region, unspecified stage MANPREET SPENCER DO Dec 26, 2019 20:58
--- NOTE | 2019-12-26 21:00 | NUR ---
Lluvia Cornejo admitted to room 231-1, with an admitting diagnosis of Cardiac arrest debility, on 12/26/19 from [facility], accompanied by family. LLUVIA CORNEJO introduced to surroundings, call light, bed controls, phone, TV, temperature control, lights, meal times, smoking policy, visitor policy, side rail policy, bathrooms and showers. LLUVIA CORNEJO verbalizes understanding that [facility] is not responsible for the loss or damage to any personal effects or valuables that are kept in the patients posession during their hospitalization. LLUVIA CORNEJO verbalizes understanding of Interdisciplinary Patient Education. Patient and family were informed about the Rapid Response Team and its purpose. Patient received information concerning Patient Rights and Privacy Act Statement and Data Collection Information Summary.
[2019-12-26] MEDS: guaiFENesin/CODEINE (ROBITUSSIN AC) 10ML UDC PO PRN (22:38)
[2019-12-27] MEDS: oxyCODONE/APAP 7.5-325 MG (PERCOCET 7.5) TABLET PO PRN ×3 (05:30→18:17)
[2019-12-27 05:37] VITALS: BP 96/71
--- NOTE | 2019-12-27 06:04 | PM&R Progress Note ---
Subjective HPI/CC On Admission Date Seen by Provider: Dec 27, 2019 Time Seen by Provider: 06:00 Subjective/Events-last exam Patient had a good night of sleep and he feels much better Appreciate Dr Rodriguez input on chronic DAISY and recent VDRF Pain is controlled Zimmerman cath in place and started Flomax and will consult Dr Barrientos Labs reviewed Will change diet to ADA and start SSI A Checked meds and labs Conferred with RN Reviewed therapy notes Reviewed extensive notes from [place] Review of Systems General: Fatigue Musculoskeletal: neck pain, back pain Neurological: Weakness, Numbness, Incoordination Objective Exam Vital Signs Vital Signs Date Time Temp Pulse Resp B/P (MAP) Pulse Ox O2 Delivery O2 Flow Rate FiO2 12/27/19 09:00 95 Room Air 12/27/19 05:37 36.8 73 20 96/71 (79) Capillary Refill : Less Than 3 Seconds General Appearance: WD/WN, Anxious, Chronically ill, Mild Distress, Other (very fatigued, [place]) HEENT: PERRL/EOMI, Normal ENT Inspection, Pharynx Normal Neck: Non Tender, Supple, Carotid Bruit, Other (limited ROM in brace) Respiratory: Chest Non Tender, Lungs Clear, No Accessory Muscle Use, No Respiratory Distress, Decreased Breath Sounds Cardiovascular: No Gallop, No JVD, No Murmur, Normal Peripheral Pulses, Tachycardia Gastrointestinal: Normal Bowel Sounds, No Organomegaly, No Pulsatile Mass, Non Tender, Soft Back: Normal Inspection, No CVA Tenderness, No Vertebral Tenderness Extremity: Normal Capillary Refill, Normal Inspection, Normal Range of Motion, Non Tender, No Calf Tenderness, Pedal Edema Neurologic/Psychiatric: Alert, Oriented x3, Normal Mood/Affect, sports equipment supervisor II-XII Norm as Tested, Abnormal Gait, Depressed Affect, Motor Weakness (weakness upper and lower extremities) Skin: Normal Color, Warm/Dry Lymphatic: No Adenopathy Results/Procedures Lab Laboratory Tests 12/27/19 06:12 Patient resulted labs reviewed. FIM Transfers Therapy Code Descriptions/Definitions Functional [place] Measure: 0=Not Assessed/NA 4=Minimal Assistance 1=Total Assistance 5=Supervision or Setup 2=Maximal Assistance 6=Modified [place] 3=Moderate Assistance 7=Complete IndependenceSCALE: Activities may be completed with or without assistive devices. 4-Ycvilssjwx-rhejyzd completes the activity by him/herself with no assistance from a helper. 5-Set-up or Clean-up Assistance-helper sets up or cleans up; patient completes activity. [place] assists only prior to or following the activity. 4-Supervision or Touching Assistance-helper provides verbal cues and/or touching/steadying and/or contact guard assistance as patient completes activity. Assistance may be provided throughout the activity or intermittently. 3-Partial/Moderate Assistance-helper does LESS THAN HALF the effort. [place] lifts, holds or supports trunk or limbs, but provides less than half the effort. 2-Substantial/Maximal Assistance-helper does MORE THAN HALF the effort. [place] lifts or holds trunk or limbs and provides more than half the effort. 9-Btpvdxtxt-snlgcb does ALL the effort. Patient does none of the effort to complete the activity. Or, the assistance of 2 or more helpers is required for the patient to complete the activity. If activity was not attempted, code reason: 7-Patient Refused. 9-Not Applicable-not attempted and the patient did not perform the activity before the current illness, exacerbation or injury. 10-Not Attempted due to Environmental Limitations-(lack of equipment, weather restraints, etc.). 88-Not Attempted due to Medical Conditions or Safety Concerns. Roll Left to Right (QC): 3 (x 2) Sit to Lying (QC): 3 (x 2) Sit to Stand (QC): 3 (x 2) Chair/Fzp-fv-Gxjjn Xfer(QC): 3 (x2) Car Transfer (QC): 3 (x 2) Gait Training Does the Patient Walk?: No and Walking Goal IS indicated Walk 10 feet (QC): 88 Walk 50 ft with 2 Turns(QC): 88 Walk 150 ft (QC): 88 Walking 10ft/uneven surface-QC: 88 Gait Assistive Device: Walker Platform (bilateral platform FWW) Wheelchair Training Does the Pt Use a Wheelchair?: Yes Distance: 5' Wheel 50 ft with 2 turns (QC): 88 Wheel 150 ft (QC): 88 Type of Wheelchair: Manual Stair Training 1 Step (curb) (QC): 88 4 Steps (QC): 88 12 Steps (QC): 9 Balance Picking up an Object (QC): 88 ADL-Treatment Shower/Bathe Self (QC): 2 (Pt completed bathing while seated. Pt able to assist with washing bilteral UE, but requires assist for all other areas secondary to weakness and fatigue.) Upper Body Dressing (QC): 1 (Pt required total assist to doff/don button up shirt.) Lower Body Dressing (QC): 1 (Pt required assist to thread bilateral LE into Depends and pants. Stood with mod assist x2 for balance. Assist to complete pant hike.) On/Off Footwear (QC): 1 (Total assist to doff/don footwear.) Assessment/Plan Assessment and Plan Assess & Plan/Chief Complaint Assessment: Debility h/o septic shock 08/2019 s/p central cervical spinal cord syndrome resulting in chronic debility and weakness s/p decompression per [place] [facility] h/o UTI CAD s/p stents 12/18/19 Dr Lovelace after cardiac arrest Ischemic cardiomyopathy previous Lifevest worn Tendency for volume overload Chronic edema Bipolar disorder Urinary retention failed voiding trial at [place] prior to admit maintained on Zimmerman started Flomax and consulted Dr Barrientos Plan: Home meds Appreciate cardiology and pulmonology and urology Monitor volume status Inpatient rehabilitation protocol (1) Central cord syndrome (2) Spinal cord compression (3) Former smoker (4) Bipolar disorder (5) Delirium (6) Edema (7) Wheelchair bound (8) DAISY on CPAP (9) CAD (coronary artery disease) (10) CHF (congestive heart failure) (11) UTI (urinary tract infection) (12) Debility Status: Acute (13) Sacral pressure ulcer MANPREET SPENCER DO Dec 27, 2019 06:04
[2019-12-27 06:58] LABS: BASOPHILS % (AUTO) 0 % (0-10); EOSINOPHILS # (AUTO) 0.1 10^3/uL (0.0-0.3); EOSINOPHILS % (AUTO) 1 % (0-10); HEMATOCRIT 38 % (40-54); HEMOGLOBIN 12.5 G/DL (13.3-17.7); LYMPHOCYTES # (AUTO) 1.5 X 10^3 (1.0-4.0); LYMPHOCYTES % (AUTO) 15 % (12-44); MEAN CORPUSCULAR HEMOGLOBIN 26 PG (25-34); MEAN CORPUSCULAR HGB CONC 33 G/DL (32-36); MEAN CORPUSCULAR VOLUME 81 FL (80-99); MEAN PLATELET VOLUME 10.4 FL (7.4-10.4); MONOCYTES % (AUTO) 10 % (0-12); NEUTROPHILS # (AUTO) 7.5 X 10^3 (1.8-7.8); NEUTROPHILS % (AUTO) 75 % (42-75); PLATELET COUNT 284 10^3/uL (130-400); RED CELL DISTRIBUTION WIDTH 17.4 % (10.0-14.5)
[2019-12-27 07:18] LABS: ALANINE AMINOTRANSFERASE 24 U/L (0-55); ALBUMIN 3.9 GM/DL (3.2-4.5); ALKALINE PHOSPHATASE 140 U/L (40-136); BILIRUBIN,TOTAL 0.5 MG/DL (0.1-1.0); BUN/CREATININE RATIO 15; CALCIUM 9.2 MG/DL (8.5-10.1); CARBON DIOXIDE 19 MMOL/L (21-32); CHLORIDE 106 MMOL/L (98-107); CREATININE SERUM 1.23 MG/DL (0.60-1.30); GFR ESTIMATED > 60; GLUCOSE 229 MG/DL (70-105); POTASSIUM 4.3 MMOL/L (3.6-5.0); SODIUM 138 MMOL/L (135-145)
[2019-12-27] MEDS ORDERED: NON-FORMULARY MEDICATION 1 EA EA (Cariprazine Hydrochloride (Vraylar) 1.5 MG) PO SCH (09:00)
[2019-12-27] MEDS ORDERED: NON-FORMULARY MEDICATION 1 EA EA (Ropinirole HCl 0.5 MG) PO SCH (09:00)
[2019-12-27] MEDS ORDERED: NON-FORMULARY MEDICATION 1 EA EA (Dapagliflozin Propanediol (Farxiga) 10 MG) PO SCH (09:00)
[2019-12-27] MEDS: rOPINIRole 0.25 MG (REQUIP) TAB PO SCH (09:09)
[2019-12-27] MEDS: DIVALPROEX 500 MG DELAYED RELEASE (DEPAKOTE) TAB PO SCH ×2 (09:09→21:33)
[2019-12-27] MEDS: CYCLOBENZAPRINE 10 MG (FLEXERIL) TAB PO PRN ×2 (09:09→16:12)
[2019-12-27] MEDS: CARVEDILOL 6.25 MG (COREG) TAB PO SCH ×2 (09:10→21:33)
[2019-12-27] MEDS: ASPIRIN 81 MG CHEW (CHILDREN'S ASA) PO SCH (09:10)
[2019-12-27] MEDS: SERTRALINE 100 MG (ZOLOFT) TAB PO SCH (09:10)
[2019-12-27] MEDS: LOSARTAN 25 MG (COZAAR) TAB PO SCH (09:10)
[2019-12-27] MEDS: CLOPIDOGREL 75 MG (PLAVIX) TABLET PO SCH (09:10)
[2019-12-27] MEDS: PANTOPRAZOLE 40 MG (PROTONIX) TAB PO SCH (09:10)
[2019-12-27] MEDS: PREGABALIN 150 MG (LYRICA) CAPSULE PO SCH ×2 (09:10→21:33)
[2019-12-27] MEDS: AMIODARONE 200 MG (CORDARONE) TAB PO SCH ×2 (09:11→21:33)
[2019-12-27] MEDS: polyethylene glycoL POWDER 17 GM (MIRALAX) PACK PO SCH ×2 (09:16→21:33)
[2019-12-27] MEDS: SENNA W/DOCUSATE (SENOKOT S) TABLET PO SCH ×2 (09:16→21:33)
--- NOTE | 2019-12-27 09:45 | Physical Therapy Daily Note ---
PT Daily Note-Current Subjective Pt up in chair, agreeable to work with PT/OT. Motivated to improve. Pt reports 8/10 pain in neck, (B) UE, and radiating into low back. Nursing notified, meds provided. Pain Numeric Pain Scale: 8 Location: Posterior Location Body Site: Neck Pain Description: Ache Mental Status Patient Orientation: Person, Place, Time, Situation Attachments: Zimmerman Catheter Transfers SCALE: Activities may be completed with or without assistive devices. 3-Rrfsqmxhxb-adbscoy completes the activity by him/herself with no assistance from a helper. 5-Set-up or Clean-up Assistance-helper sets up or cleans up; patient completes activity. [place] assists only prior to or following the activity. 4-Supervision or Touching Assistance-helper provides verbal cues and/or touching/steadying and/or contact guard assistance as patient completes activity. Assistance may be provided throughout the activity or intermittently. 3-Partial/Moderate Assistance-helper does LESS THAN HALF the effort. [place] lifts, holds or supports trunk or limbs, but provides less than half the effort. 2-Substantial/Maximal Assistance-helper does MORE THAN HALF the effort. [place] lifts or holds trunk or limbs and provides more than half the effort. 1-Ixzjmsfor-lrzqfq does ALL the effort. Patient does none of the effort to complete the activity. Or, the assistance of 2 or more helpers is required for the patient to complete the activity. If activity was not attempted, code reason: 7-Patient Refused. 9-Not Applicable-not attempted and the patient did not perform the activity before the current illness, exacerbation or injury. 10-Not Attempted due to Environmental Limitations-(lack of equipment, weather restraints, etc.). 88-Not Attempted due to Medical Conditions or Safety Concerns. Sit to Stand (QC): 4 Toilet Transfer (QC): 4 CGA for balance with toilet transfer, occasional VCS for hand placement. Weight Bearing Right Lower Extremity: Right Full Weight Bearing Left Lower Extremity: Left Full Weight Bearing Gait Training Does the Patient Walk?: Yes Distance: 75 Walk 10 feet (QC): 4 Walk 50 ft with 2 Turns(QC): 4 Walk 150 ft (QC): 88 Walking 10ft/uneven surface-QC: 88 Gait Persons Needed: 2 Gait Assistive Device: Walker Platform ((B) platform walker) Pt ambulated 75' x 1 with (B) platform walker with min A x 1, WCH following PRN for safety. Pt with flexed posture, tendency to drift to (L) side of walker. Frequently scissoring feet, able to correct with VCS but quickly returns to scissoring without consistent cueing. Pt also drags feet, unable to completely clear (B) feet during swing phase. Gait terminated by Pt due to feeling dizzy; BP and O2 on RA WFLs. Unsafe to attempt gait on uneven surfaces or attempt stairs this date. Stair Training 1 Step (curb) (QC): 88 4 Steps (QC): 88 12 Steps (QC): 9 Pt unable to completely clear (B) feet during swing phase with gait on level surface. Unsafe to attempt steps this date. Treatments Co-treat with OT due to level of skilled assist required and decreased activity tolerance. Transfer and balance training with OT addressing [place]-care, PT addressing transfers and static standing balance during ADLs. Gait training with FWW. Returned to up in chair with all needs met. Assessment Current Status: Good Progress Pt tolerated very well. Improved functional activity tolerance as compared to day of arrival but continues to fatigue very quickly. Assist with transfers, gait at this time as Pt is a high risk of falls currently due to scissoring gait, decreased proprioception in (B) LE, and decreased functional activity tolerance. Pt would benefit from skilled PT to progress functional strength and activity tolerance to increase safety and (I) with functional mobility to allow safe return home with spouse. PT Paper Sales Manager Goals Long-Term Goals PT Paper Sales Manager Goals Time Frame: Jan 24, 2020 Roll Left & Right (QC): 5 Sit to Lying (QC): 5 Lying-Sitting on Side/Bed(QC): 5 Sit to Stand (QC): 5 Chair/Loz-zu-Yeway Xfer(QC): 5 Toilet Transfer (QC): 5 Car Transfer (QC): 5 Does the Patient Walk: Yes Walk 10 feet (QC): 5 Walk 50ft with 2 Turns (QC): 5 Walk 150 ft (QC): 5 Walking 10ft on Uneven Surface: 5 1 Step (curb) (QC): 5 4 Steps (QC): 5 12 Steps (QC): 9 Picking up an Object (QC): 5 Type: N/A Type: N/A PT Plan Problem List Problem List: Activity Tolerance, Functional Strength, Safety, Balance, Gait, Transfer, Bed Mobility Treatment/Plan Treatment Plan: Continue Plan of Care Treatment Plan: Bed Mobility, Concurrent Therapy, Education, Functional Activity Melva, Functional Strength, Group Therapy, Gait, Safety, Therapeutic Exercise, Transfers Treatment Duration: Jan 24, 2020 Frequency: At least 5 of 7 days/Wk (IRF) Estimated Hrs Per Day: 1.5 hours per day Patient and/or Family Agrees t: Yes Safety Risks/Education Patient Education: Gait Training, Transfer Techniques Teaching Recipient: Patient Teaching Methods: Discussion Response to Teaching: Verbalize Understanding, Return Demonstration, Reinforcement Needed Time/GCodes Time In: 0849 Time Out: 928 Total Billed Treatment Time: 40 Total Billed Treatment 1, FA x 30', GT x 10' ERASMO ELAM DPT Dec 27, 2019 09:45
--- NOTE | 2019-12-27 11:42 | Occupational Ther Daily Note ---
OT Current Status-Daily Note Subjective Pt alert, sitting in recliner. Pt agrees to therapy. Pt c/o pain, reported to nrsg. Nrsg brought medications. Mental Status/Objective Patient Orientation: Person, Place, Time, Situation ADL-Treatment Co-treat with PT ([id number]) due to severe debility and impaired activity tolerance requiring the skills of two therapists. OT focusing on ADL completion, UE positioning, and safety. PT focusing on mobility, balance during ADLs, and transfers. Pt fatigues quickly with activity and requires rest breaks throughout session. Pt ambulated to bathroom and transferred onto toilet with CGA and min A to transfer off of toilet. Pt able to manipulate clothing with CGA then total assist to complete hygiene after bowel movement, pt has Zimmerman catheter. Pt able to sit at sink and complete oral hygiene by self. Pt required multiple recovery breaks throughout session due to decreased activity tolerance. After therapy, pt sitting in recliner with call light/phone in reach. All needs met in room. Therapy Code Descriptions/Definitions Functional [place] Measure: 0=Not Assessed/NA 4=Minimal Assistance 1=Total Assistance 5=Supervision or Setup 2=Maximal Assistance 6=Modified [place] 3=Moderate Assistance 7=Complete IndependenceSCALE: Activities may be completed with or without assistive devices. 4-Wdsosmvmbm-jfvqqzc completes the activity by him/herself with no assistance from a helper. 5-Set-up or Clean-up Assistance-helper sets up or cleans up; patient completes activity. [place] assists only prior to or following the activity. 4-Supervision or Touching Assistance-helper provides verbal cues and/or touching/steadying and/or contact guard assistance as patient completes activity. Assistance may be provided throughout the activity or intermittently. 3-Partial/Moderate Assistance-helper does LESS THAN HALF the effort. [place] lifts, holds or supports trunk or limbs, but provides less than half the effort. 2-Substantial/Maximal Assistance-helper does MORE THAN HALF the effort. [place] lifts or holds trunk or limbs and provides more than half the effort. 8-Nogzsjfop-vuxxeb does ALL the effort. Patient does none of the effort to complete the activity. Or, the assistance of 2 or more helpers is required for the patient to complete the activity. If activity was not attempted, code reason: 7-Patient Refused. 9-Not Applicable-not attempted and the patient did not perform the activity before the current illness, exacerbation or injury. 10-Not Attempted due to Environmental Limitations-(lack of equipment, weather restraints, etc.). 88-Not Attempted due to Medical Conditions or Safety Concerns. Oral Hygiene (QC): 6 Toileting Hygiene (QC): 1 Toilet Transfer (QC): 3 OT Short Term Goals Short Term Goals Time Frame: Jan 09, 2020 Eatin Oral hygiene: 4 Toileting hygiene: 3 Shower/bathe self: 3 Upper body dressin Lower body dressin OT Halfway Goals Halfway Goals Time Frame: Jan 23, 2020 Eating (QC): 5 Oral Hygiene (QC): 5 Toileting Hygiene (QC): 4 Shower/Bathe Self (QC): 4 Upper Body Dressing (QC): 5 Lower Body Dressing (QC): 5 On/Off Footwear (QC): 5 Additional Goals: 1-Demonstrate ADL Tasks, 2-Verbalize Understanding, 3- ImproveStrength/Melva 1=Demonstrate adherence to instructed precautions during ADL tasks. 2=Patient will verbalize/demonstrate understanding of assistive devices/modifications for ADL. 3=Patient will improve strength/tolerance for activity to enable patient to perform ADL's. OT Education/Plan Problem List/Assessment Assessment: Decreased Activ Tolerance, Decreased UE Strength, Impaired Coordination, Impaired Funct Balance, Impaired Self-Care Skills, Restricted Funct UE ROM Pt to benefit from skilled OT intervention for ADL training, transfers, s trengthening, and home safety education to increase level of function and allow safe discharge. Discharge Recommendations Plan/Recommendations: Continue POC Treatment Plan/Plan of Care Patient would benefit from OT for education, treatment and training to promote independence in ADL's, mobility, safety and/or upper extremity function for ADL's. Plan of Care: ADL Retraining, Functional Mobility, Group Exercise/Act as Ind, UE Funct Exercise/Act, UE Neuromus Re-Ed/Coord Treatment Duration: Jan 23, 2020 Frequency: At least 5 of 7 days/Wk (IRF) Estimated Hrs Per Day: 1.5 hours per day Agreement: Yes Rehab Potential: Fair Time/GCodes Start Time: 08:49 Stop Time: 09:29 Total Time Billed (hr/min): 40 Billed Treatment Time 1 visit-ADL 1 (15 min) FA 1 (25 min) Co-treat with PT ([id number]) due to severe debility and impaired activity tolerance requiring the skills of two therapists. TEDDY HAWKINS Dec 27, 2019 11:42
--- NOTE | 2019-12-27 14:08 | Individualized Plan of Care ---
Individualized Plan of Care Rehab Nursing IPOC Order Admission Date Dec 26, 2019 at 14:45 Current Orders Orders Admission Order(Inpt,Obs,Sdc) (12/26/19 10:36) Vital Signs: Per Unit Policy ( 08,16,00 (12/26/19 10:36) Rack Washer-Inpt Rehab Con (12/26/19 10:36) Rehab Nursing Orders-Ipoc (12/26/19 10:36) Physical Therapy Rehab Orders (12/26/19 10:36) Occupational Therapy Rehab Ord (12/26/19 10:36) Speech Therapy Rehab Orders (12/26/19 10:36) Cbc With Automated Diff (12/27/19 06:00) Comprehensive Metabolic Panel (12/27/19 06:00) General/Regular (12/26/19 Dinner) Intake & Output ,, (12/26/19 10:36) Precautions (Aru) (12/26/19 10:36) Rehab-Intensity Of Therapy (12/26/19 10:36) Initiate Admission Nursing Pro .admission (12/26/19 10:36) Alprazolam Tablet (Xanax Tablet) (12/26/19 10:45) Calcium Carbonate Chew Tablet (Antacid C (12/26/19 10:45) Diphenhydramine Tablet (Benadryl Tablet) (12/26/19 10:45) Docusate Sodium Capsule (Colace Capsule) (12/26/19 10:45) Bisacodyl Suppository (Dulcolax Supposit (12/26/19 10:45) Lactulose Oral Solution (Enulose Oral So (12/26/19 10:45) Na Phos/Na Biphos Enema (Fleet Enema Rene (12/26/19 10:45) Guaifenesin/Codeine Syrup (Robitussin Ac (12/26/19 10:45) Loperamide Tablet (Imodium Tablet) (12/26/19 10:45) Enoxaparin Injection (Lovenox Injection) (12/26/19 16:00) Melatonin Tablet (Melatonin Tablet) (12/26/19 10:45) Polyethylene Glycol Powder Pkt (Miralax (12/26/19 21:00) Ondansetron Oral Dissolve Tab (Zofran (12/26/19 10:45) Senna S Tablet (Senokot S Tablet) (12/26/19 21:00) Initiate Admission Nursing Pro .admission (12/26/19 10:36) Aspirin Chewable Tablet (Baby Aspirin Ch (12/27/19 09:00) Atorvastatin Tablet (Lipitor) (12/26/19 21:00) Carvedilol Tablet (Coreg Tablet) (12/26/19 21:00) Clopidogrel Tablet (Plavix Tablet) (12/27/19 09:00) Cyclobenzaprine Tablet (Flexeril Tablet) (12/26/19 14:00) Diazepam Tablet (Valium Tablet) (12/26/19 14:00) Divalproex Delay Release Tab (Depakote T (12/26/19 21:00) Losartan Tablet (Cozaar Tablet) (12/27/19 09:00) Nitroglycerin 0.4 Mg Btl 25's (Nitrostat (12/26/19 14:00) Oxycodone/Apap 7.5/325mg Tab (Percocet (12/26/19 14:00) Pantoprazole Tablet (Protonix Tablet) (12/27/19 09:00) Pregabalin Capsule (Lyrica Capsule) (12/26/19 21:00) Sertraline Tablet (Zoloft Tablet) (12/27/19 09:00) Amiodarone Tablet (Cordarone Tablet) (12/26/19 21:00) (Nf) Cariprazine Hydrochloride (Vraylar) (12/27/19 09:00) (Nf) Dapagliflozin Propanediol (Farxiga) (12/27/19 09:00) (Nf) Ropinirole Hcl (12/27/19 09:00) Consult Cardiology (12/26/19 14:52) Patient Visit (12/26/19 ) Pt Eval Moderate Complexity (12/26/19 ) Functional Activities, Ea 15 (12/26/19 ) Patient Visit (12/26/19 ) Dysphagia Evaluation Std (12/26/19 ) Speech Sound Lang Comp (12/26/19 ) Ropinirole Tablet (Requip Tablet) (12/27/19 09:00) Dys2 Mechanically Altered (12/26/19 Dinner) Oxycodone/Apap 7.5/325mg Tab (Percocet (12/26/19 18:00) Tamsulosin Capsule (Flomax Capsule) (12/26/19 19:00) Consult Pulmonology (12/26/19 18:46) Oxycodone/Apap 7.5/325mg Tab (Percocet (12/26/19 19:00) Morphine Injection (Morphine Injection (12/26/19 19:00) Ensure Enlive (12/27/19 Breakfast) Ambulate 08,12,20 (12/26/19 20:08) Sequential Compression Device Q4H (12/26/19 20:08) Dvt/Vte Risk - Notifiy Physici Q4H (12/26/19 20:08) Influenza Quad (5+Yoa) (Afluria (12/26/19 20:30) Consult Urology (12/27/19 06:31) Patient Visit (12/27/19 ) Functional Activities, Ea 15 (12/27/19 ) Gait Training, Ea 15 Min (12/27/19 ) Cho 75g/M 1snack (21-2400 Ed) (12/27/19 Dinner) Accucheck Achs ACHS (12/27/19 14:05) Novolog Sliding Scale "B" (12/27/19 16:00) Rehab Nursing Orders: Ongoing Assess. of Cognitive Status, Ongoing Assess. of Function Status, Bladder Management, Bladder Scan, Bladder Training, Bowel Management, Bowel Training, Disease Management & Educaiton, DVT Prophylaxis, Fall Prevention, Fluid/Electrolyte/Nutrition Mgmt, Infection Prevention, Medication Management & Education, Management of Risks & Complications, Management of Skin Intergrity, Nutrition Management, Pain Management, Patient/Family Support, Safety Management, Swallow Precautions Intensity of Therapy to be met Patient to be seen: Min.3h per day/5 of 7d PT IPOC Problem List: Activity Tolerance, Functional Strength, Safety, Balance, Gait, Transfer, Bed Mobility Treatment Plan: Continue Plan of Care Bed Mobility, Concurrent Therapy, Education, Functional Activity Melva, Functional Strength, Group Therapy, Gait, Safety, Therapeutic Exercise, Transfers Treatment Duration: Jan 24, 2020 Frequency: At least 5 of 7 days/Wk (IRF) Estimated Hrs Per Day: 1.5 hours per day OT IPOC Problems: Decreased Activ Tolerance, Decreased UE Strength, Impaired Coordination, Impaired Funct Balance, Impaired Self-Care Skills, Restricted Funct UE ROM OT Treatment, Training and Edu: Yes OT Problems Pt to benefit from skilled OT intervention for ADL training, transfers, strengthening, and home safety education to increase level of function and allow safe discharge. Plan of Care: ADL Retraining, Functional Mobility, Group Exercise/Act as Ind, UE Funct Exercise/Act, UE Neuromus Re-Ed/Coord Treatment Duration: Jan 23, 2020 Frequency: At least 5 of 7 days/Wk (IRF) Estimated Hrs Per Day: 1.[address] IPOC Speech Therapy Treatment Plan: Continue Plan of Care Treatment Duration: Jan 02, 2020 Frequency: 5 times per week Estimated Hrs Per Day: .5 hour per day Rack Washer/Case Mgmt Rack Washer/Case Managemen: Discharge Planning Dietitian/Communications Coordinator Dietitian/Communications Coordinator to monitor nutritional status and make changes and/or recommendations as needed and work with speech pathology on dietary upgrades as the occur. Physician IPOC Medical Issues being managed closely and that require the 24 hour availability of a physician: Recent cardiac arrest following cervical spine surgery s/p CPR 45 minutes now with rib fractures and severe debility since wheelchair bound prior to surgery Medical Issues: Bowel/Bladder Function, DVT Prophylaxis, Falls Precautions, Fluid/Electrolyte/Nutrition Balance, Infection Protection, Swallowing Precautions Brief Synthesis of Preadmission Screen, Post-Admission Evaluation, and Therapy Evaluations: PT and OT will both focus on increasing stamina and ROM and fall risk prevention in order to return to [facility] and go home with Medical Prognosis: Good Anticipated Length of Stay: 10 days MANPREET SPENCER DO Dec 27, 2019 14:08
[2019-12-27 16:00] VITALS: BP 96/58
[2019-12-27] MEDS: ENOXAPARIN 40 MG/0.4 ML (LOVENOX) SYR SC SCH (16:12)
[2019-12-27] MEDS: inSUlin ASPART (NovoLOG) 1 UNIT/0.01 ML (CHARGE PER UNIT) SC SCH ×2 (16:12→21:46)
[2019-12-27] MEDS ORDERED: NYSTATIN CREAM (MYCOSTATIN) 30 GM TUBE TP PRN (16:45)
[2019-12-27 18:00] VITALS: BP 116/72
[2019-12-27] MEDS: TAMSULOSIN 0.4 MG (FLOMAX) CAP PO SCH (18:17)
--- NOTE | 2019-12-27 20:44 | CONSULTATION REPORT ---
DATE OF SERVICE: 12/27/2019 ATTENDING PHYSICIAN: Dr. Jeffries. SUMMARY: A 54-year-old white man transferred from [facility] where he underwent a neck surgery. He failed trial of voiding and was transferred with a Zimmerman catheter. He was started by Dr. Jeffries on Flomax 0.4 mg daily. He is on clopidogrel gel and aspirin and also Lovenox for DVT prophylaxis. The patient was sleeping and resting, I did not want to disturb him since I got the information from the nursing staff and chart and the physical exam will be deferred at the time of cystoscopy. IMPRESSION: Urinary retention, BPH and/or neurogenic bladder. PLAN: Continue the Flomax at least once, he has been taking it for 3 to 4 days, which will be about Sunday. We will perform a bedside flexible cystoscopy at that time, will examine him as well. Thank you for letting me participate in the care of this patient. We will follow with you. Job ID: [id number] DocumentID: [id number] Dictated Date: 12/27/2019 14:38:41 Online Banking Specialist Date: 12/27/2019 20:43:41 Dictated By: MORGAN CORREA MD
[2019-12-28 06:00] VITALS: BP 105/67
[2019-12-28] MEDS: oxyCODONE/APAP 7.5-325 MG (PERCOCET 7.5) TABLET PO PRN ×2 (06:33→12:05)
[2019-12-28] MEDS: inSUlin ASPART (NovoLOG) 1 UNIT/0.01 ML (CHARGE PER UNIT) SC SCH ×3 (06:33→17:03)
[2019-12-28] MEDS: SERTRALINE 100 MG (ZOLOFT) TAB PO SCH (08:28)
[2019-12-28] MEDS: rOPINIRole 0.25 MG (REQUIP) TAB PO SCH (08:28)
[2019-12-28] MEDS: CARVEDILOL 6.25 MG (COREG) TAB PO SCH (08:28)
[2019-12-28] MEDS: LOSARTAN 25 MG (COZAAR) TAB PO SCH (08:28)
[2019-12-28] MEDS: PANTOPRAZOLE 40 MG (PROTONIX) TAB PO SCH (08:29)
[2019-12-28] MEDS: AMIODARONE 200 MG (CORDARONE) TAB PO SCH (08:29)
[2019-12-28] MEDS: PREGABALIN 150 MG (LYRICA) CAPSULE PO SCH (08:29)
[2019-12-28] MEDS: DIVALPROEX 500 MG DELAYED RELEASE (DEPAKOTE) TAB PO SCH (08:29)
[2019-12-28] MEDS: SENNA W/DOCUSATE (SENOKOT S) TABLET PO SCH (08:29)
[2019-12-28] MEDS: CLOPIDOGREL 75 MG (PLAVIX) TABLET PO SCH (08:29)
[2019-12-28] MEDS: ASPIRIN 81 MG CHEW (CHILDREN'S ASA) PO SCH (08:29)
[2019-12-28] MEDS: polyethylene glycoL POWDER 17 GM (MIRALAX) PACK PO SCH (10:32)
[2019-12-28] MEDS: guaiFENesin/CODEINE (ROBITUSSIN AC) 10ML UDC PO PRN (10:33)
--- NOTE | 2019-12-28 15:37 | PM&R Progress Note ---
Subjective HPI/CC On Admission Date Seen by Provider: Dec 28, 2019 Time Seen by Provider: 11:40 Subjective/Events-last exam Patient had a good night of sleep again last night Appreciate Dr Rodriguez input on chronic DAISY and recent VDRF Pain is not well controlled but he tends to overuse narcotics that could delay his recovery so updated him on the plan to use non-narcs to help with pain and includes Kpad and Voltaren gel Zimmerman cath in place and started Flomax and consulted Dr Barrientos who will DC it soon Labs reviewed Will change diet to ADA and start SSI A Checked meds and labs Conferred with RN Reviewed therapy notes Reviewed extensive notes from [facility] Review of Systems General: Fatigue Pulmonary: Dyspnea Cardiovascular: Orthopnea, Edema Objective Exam Vital Signs Vital Signs Date Time Temp Pulse Resp B/P (MAP) Pulse Ox O2 Delivery O2 Flow Rate FiO2 12/28/19 09:00 Room Air 12/28/19 06:00 37.0 73 18 105/67 (80) 96 Capillary Refill : Less Than 3 Seconds General Appearance: WD/WN, Anxious, Chronically ill, Mild Distress, Other (very fatigued, [place]) HEENT: PERRL/EOMI, Normal ENT Inspection, Pharynx Normal Neck: Non Tender, Supple, Carotid Bruit, Other (limited ROM in brace) Respiratory: Chest Non Tender, Lungs Clear, No Accessory Muscle Use, No Respiratory Distress, Decreased Breath Sounds Cardiovascular: No Gallop, No JVD, No Murmur, Normal Peripheral Pulses, Tachycardia Gastrointestinal: Normal Bowel Sounds, No Organomegaly, No Pulsatile Mass, Non Tender, Soft Back: Normal Inspection, No CVA Tenderness, No Vertebral Tenderness Extremity: Normal Capillary Refill, Normal Inspection, Normal Range of Motion, Non Tender, No Calf Tenderness, Pedal Edema Neurologic/Psychiatric: Alert, Oriented x3, Normal Mood/Affect, 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 FIM Transfers Therapy Code Descriptions/Definitions Functional [place] Measure: 0=Not Assessed/NA 4=Minimal Assistance 1=Total Assistance 5=Supervision or Setup 2=Maximal Assistance 6=Modified [place] 3=Moderate Assistance 7=Complete IndependenceSCALE: Activities may be completed with or without assistive devices. 7-Bxlwtzvdvz-jpqufvi completes the activity by him/herself with no assistance from a helper. 5-Set-up or Clean-up Assistance-helper sets up or cleans up; patient completes activity. [place] assists only prior to or following the activity. 4-Supervision or Touching Assistance-helper provides verbal cues and/or touching/steadying and/or contact guard assistance as patient completes activity. Assistance may be provided throughout the activity or intermittently. 3-Partial/Moderate Assistance-helper does LESS THAN HALF the effort. [place] lifts, holds or supports trunk or limbs, but provides less than half the effort. 2-Substantial/Maximal Assistance-helper does MORE THAN HALF the effort. [place] lifts or holds trunk or limbs and provides more than half the effort. 9-Wvratiufp-yjutpe does ALL the effort. Patient does none of the effort to complete the activity. Or, the assistance of 2 or more helpers is required for the patient to complete the activity. If activity was not attempted, code reason: 7-Patient Refused. 9-Not Applicable-not attempted and the patient did not perform the activity before the current illness, exacerbation or injury. 10-Not Attempted due to Environmental Limitations-(lack of equipment, weather restraints, etc.). 88-Not Attempted due to Medical Conditions or Safety Concerns. Roll Left to Right (QC): 3 (x 2) Sit to Lying (QC): 3 (x 2) Sit to Stand (QC): 4 Chair/Weo-bx-Oosuy Xfer(QC): 3 (x2) Car Transfer (QC): 3 (x 2) Gait Training Does the Patient Walk?: Yes Distance: 75 Walk 10 feet (QC): 4 Walk 50 ft with 2 Turns(QC): 4 Walk 150 ft (QC): 88 Walking 10ft/uneven surface-QC: 88 Gait Persons Needed: 2 Gait Assistive Device: Walker Platform ((B) platform walker) Wheelchair Training Does the Pt Use a Wheelchair?: Yes Distance: 5' Wheel 50 ft with 2 turns (QC): 88 Wheel 150 ft (QC): 88 Type of Wheelchair: Manual Stair Training 1 Step (curb) (QC): 88 4 Steps (QC): 88 12 Steps (QC): 9 Balance Picking up an Object (QC): 88 ADL-Treatment Oral Hygiene (QC): 6 Shower/Bathe Self (QC): 2 (Pt completed bathing while seated. Pt able to assist with washing bilteral UE, but requires assist for all other areas secondary to weakness and fatigue.) Upper Body Dressing (QC): 1 (Pt required total assist to doff/don button up shirt.) Lower Body Dressing (QC): 1 (Pt required assist to thread bilateral LE into Depends and pants. Stood with mod assist x2 for balance. Assist to complete pant hike.) On/Off Footwear (QC): 1 (Total assist to doff/don footwear.) Toileting Hygiene (QC): 1 Toilet Transfer (QC): 3 Assessment/Plan Assessment and Plan Assess & Plan/Chief Complaint Assessment: Debility h/o septic shock 08/2019 s/p central cervical spinal cord syndrome resulting in chronic debility and weakness s/p decompression per [facility] NS h/o UTI CAD s/p stents 12/18/19 Dr Lovelace after cardiac arrest Ischemic cardiomyopathy previous Lifevest worn Tendency for volume overload Chronic edema Bipolar disorder Urinary retention failed voiding trial at [facility] prior to admit maintained on Zimmerman started Flomax and consulted Dr Barrientos Plan: Home meds Appreciate cardiology and pulmonology and urology Monitor volume status Inpatient rehabilitation protocol (1) Central cord syndrome (2) Spinal cord compression (3) Former smoker (4) Bipolar disorder (5) Delirium (6) Edema (7) Wheelchair bound (8) DAISY on CPAP (9) CAD (coronary artery disease) (10) CHF (congestive heart failure) (11) UTI (urinary tract infection) (12) Debility Status: Acute (13) Sacral pressure ulcer MANPREET SPENCER DO Dec 28, 2019 15:37
[2019-12-28] MEDS: DIAZEPAM 5 MG (VALIUM) TABLET PO PRN (15:42)
--- NOTE | 2019-12-28 16:15 | NUR ---
PCT reports b/p of to RN, pt placed in [facility], rechecked . o2 SATS 87-89% on room air, HR 53, pt pale, patient confused, lung sounds diminished rt lower, course with crackles and wheezing upper right and left airways with inspiration and expirations, temp 36.6. Dr Jeffries, Dr Rodriguez, & warehouse packer notified. ICU & RT team called, o2 @ 3L/nc placed, Sats 94%, B/P ; orders received; 1000L bolus LR hung, ABG's obtained with labs, positive Balwinder test. patient transferred to ICU per Dr. Rodriguez. brings some belongings to patient ICU room.
[2019-12-28] MEDS ORDERED: LACTATED RINGERS 1,000 ML IV ONE ×2 (16:33→16:37)
[2019-12-28] MEDS ORDERED: PATIENT MAY USE OWN MED,SINGLE MED PO SCH (16:45)
[2019-12-28 16:52] LABS: ABG BASE EXCESS -0.5 MMOL/L (-2.5-2.5); ABG OXYGEN SATURATION 95 % (94-100); ABG PCO2 39 MMHG (35-45); ABG PO2 68 MMHG (79-93); ABG TCO2 24.9 MMOL/L (21.0-31.0)
[2019-12-28 16:54] LABS: ALLENS TEST POS; INSPIRED O2 3L; PATIENT TEMP 36.6; VENTILATOR NO
[2019-12-28] MEDS: VRAYLAR 1.5 MG CAPSULE PO SCH (17:08)
[2019-12-29 06:15] LABS: BASOPHILS % (AUTO) 0 % (0-10); EOSINOPHILS # (AUTO) 0.1 10^3/uL (0.0-0.3); EOSINOPHILS % (AUTO) 1 % (0-10); HEMATOCRIT 32 % (40-54); HEMOGLOBIN 10.3 G/DL (13.3-17.7); LYMPHOCYTES # (AUTO) 0.9 X 10^3 (1.0-4.0); LYMPHOCYTES % (AUTO) 11 % (12-44); MEAN CORPUSCULAR HEMOGLOBIN 27 PG (25-34); MEAN CORPUSCULAR HGB CONC 33 G/DL (32-36); MEAN CORPUSCULAR VOLUME 81 FL (80-99); MONOCYTES # (AUTO) 0.9 X 10^3 (0.0-1.0); MONOCYTES % (AUTO) 11 % (0-12); NEUTROPHILS # (AUTO) 6.3 X 10^3 (1.8-7.8); NEUTROPHILS % (AUTO) 77 % (42-75); PLATELET COUNT 221 10^3/uL (130-400); RED CELL DISTRIBUTION WIDTH 17.1 % (10.0-14.5); WHITE BLOOD COUNT 8.1 10^3/uL (4.3-11.0)
[2019-12-29 06:36] LABS: ALANINE AMINOTRANSFERASE 17 U/L (0-55); ALBUMIN 3.3 GM/DL (3.2-4.5); ALKALINE PHOSPHATASE 120 U/L (40-136); BILIRUBIN,TOTAL 0.6 MG/DL (0.1-1.0); BUN/CREATININE RATIO 15; CALCIUM 8.5 MG/DL (8.5-10.1); CARBON DIOXIDE 23 MMOL/L (21-32); CHLORIDE 105 MMOL/L (98-107); CREATININE SERUM 0.85 MG/DL (0.60-1.30); GFR ESTIMATED > 60; GLUCOSE 163 MG/DL (70-105); POTASSIUM 4.1 MMOL/L (3.6-5.0); SODIUM 137 MMOL/L (135-145); TOTAL PROTEIN 6.1 GM/DL (6.4-8.2)
--- NOTE | 2019-12-29 09:39 | Therapy Team Discharge Summary ---
Therapy Discharge Summary Discharge Recommendations Date of Discharge Occupational Therapy Decreased Activ Tolerance, Decreased UE Strength, Impaired Coordination, Impaired Funct Balance, Impaired Self-Care Skills, Restricted Funct UE ROM Speech-Language Pathology Patient was discharged to ICU on 12/28/19. PT Primer Supervisor Goals Primer Supervisor Goals PT Primer Supervisor Goals Time Frame: Jan 24, 2020 Roll Left to Right (QC): 5 Sit to Lying (QC): 5 Lying-Sitting on Side/Bed(QC): 5 Sit to Stand (QC): 5 Chair/Ybl-ql-Tjeyb Xfer(QC): 5 Car Transfer (QC): 5 Does the Patient Walk: Yes Walk 10 feet (QC): 5 Walk 10ft-Uneven Surface(QC): 5 Walk 50ft with 2 Turns (QC): 5 Walk 150 ft (QC): 5 1 Step (curb) (QC): 5 4 Steps (QC): 5 12 Steps (QC): 9 Picking up an Object (QC): 5 OT Intermediate Goals Primer Supervisor Goals Time Frame: Jan 23, 2020 Eating (QC): 5 Oral Hygiene (QC): 5 Shower/Bathe Self (QC): 4 Upper Body Dressing (QC): 5 Lower Body Dressing (QC): 5 On/Off Footwear (QC): 5 Toileting Hygiene (QC): 4 Toilet/Commode Transfer (QC): 5 Additional Goals: 1-Demonstrate ADL Tasks, 2-Verbalize Understanding, 3- ImproveStrength/Melva 1=Demonstrate adherence to instructed precautions during ADL tasks. 2=Patient will verbalize/demonstrate understanding of assistive devices/modifications for ADL. 3=Patient will improve strength/tolerance for activity to enable patient to perform ADL's. Speech Primer Supervisor Goals Primer Supervisor Goals Patient will maintain adequate nutrition/hydration via safe and effective swallow function. ISRA DAVALOS Dec 29, 2019 09:39
--- NOTE | 2019-12-30 09:45 | Progress Note - Urology ---
Progress Note-Urology Progress Notes/Assess & Plan Progress/Assessment & Plan DOING BETTER, CYSTO ON SUNDAY THEN TOV Final Diagnosis URINE RETENTION MORGAN CORREA MD Dec 30, 2019 09:45
--- NOTE | 2019-12-30 10:31 | Progress Note ---
JARRELL TAVARES, MEDICAL STUDENT 12/30/19 1031: Progress Note Hospital Course: 54 YO M with PMH of Central Cervical Cord syndrome, CHF, T2DM, Bipolar and Chronic DAISY who was previously admitted in August for Sepsis from [facility], presents after surgery for central cervical spinal cord syndrome and cardiac arrest s/p 3 stents placed from [facility]. During the cardiac arrest the patient had no cardiac activity for 45 minutes but head imaging showed no evidence of anoxic brain injury. Following his cardiac arrest caused by V fibb the patient was placed on Amiodarone and was managed on ventilator for a short period of time. He was originally brought here to participate in inpatient rehab but was moved up to the ICU when there was concern about the patients blood pressure. The patient is currently being managed on antibiotics, and once stabilized was moved back down to rehab. Prior to his surgery the patient used a walker to ambulate. As of 12/30/19 the patient is doing well and is able to breathe easily without oxygen. He only uses NC O2 at night during sleep, he says it helps as a replacement because he uses a CPAP at home. Patient will benefit from aggressive physical therapy due to recent surgery. AMANDA SPENCER DO 12/30/192023: Supervisory-Addendum Brief Verification & Attestation Participated in pt care: history, MDM, physical Personally performed: exam, history, MDM, supervision of care Care discussed with: Medical Student Procedures: n/a Results interpretation: Verified all documentation Verification and Attestation of Medical Student E/M Service A medical student performed and documented this service in my presence. I reviewed and verified all information documented by the medical student and made modifications to such information, when appropriate. I personally performed the physical exam and medical decision making. Amanda Spencer, Dec 30, 2019,20:24 JARRELL TAVARES, MEDICAL STUDENT Dec 30, 2019 10:31 AMANDA SPENCER DO Dec 30, 2019 20:24
[2019-12-30 11:11] VITALS: BP 91/61
--- NOTE | 2019-12-30 11:11 | NUR ---
PATIENT TO FLOOR FROM ICU. BP 80/54, 91/[address] DIZZINESS[address] GREGG NOTIFIED. ORDERS TO HOLD EVENING DOSE OF COREG.
[2019-12-30] MEDS: ENOXAPARIN 40 MG/0.4 ML (LOVENOX) SYR SC SCH ×3 (11:23→16:25)
[2019-12-30] MEDS: polyethylene glycoL POWDER 17 GM (MIRALAX) PACK PO SCH ×5 (11:24→20:03)
[2019-12-30] MEDS: AMIODARONE 200 MG (CORDARONE) TAB PO SCH ×5 (11:24→19:57)
[2019-12-30] MEDS: SENNA W/DOCUSATE (SENOKOT S) TABLET PO SCH ×5 (11:24→20:03)
[2019-12-30] MEDS: CARVEDILOL 6.25 MG (COREG) TAB PO SCH ×4 (11:24→11:33)
[2019-12-30] MEDS: DIVALPROEX 500 MG DELAYED RELEASE (DEPAKOTE) TAB PO SCH ×5 (11:24→19:57)
[2019-12-30] MEDS: TAMSULOSIN 0.4 MG (FLOMAX) CAP PO SCH ×3 (11:24→17:56)
[2019-12-30] MEDS: PREGABALIN 150 MG (LYRICA) CAPSULE PO SCH ×5 (11:24→19:57)
[2019-12-30] MEDS: VRAYLAR 1.5 MG CAPSULE PO SCH ×2 (11:25→11:30)
[2019-12-30] MEDS: LOSARTAN 25 MG (COZAAR) TAB PO SCH ×2 (11:25→11:30)
[2019-12-30] MEDS: SERTRALINE 100 MG (ZOLOFT) TAB PO SCH ×2 (11:25→11:31)
[2019-12-30] MEDS: inSUlin ASPART (NovoLOG) 1 UNIT/0.01 ML (CHARGE PER UNIT) SC SCH ×8 (11:25→20:53)
[2019-12-30] MEDS: ASPIRIN 81 MG CHEW (CHILDREN'S ASA) PO SCH ×2 (11:25→11:30)
[2019-12-30] MEDS: CLOPIDOGREL 75 MG (PLAVIX) TABLET PO SCH ×2 (11:25→11:31)
[2019-12-30] MEDS: rOPINIRole 0.25 MG (REQUIP) TAB PO SCH ×2 (11:25→11:31)
[2019-12-30] MEDS: PANTOPRAZOLE 40 MG (PROTONIX) TAB PO SCH ×2 (11:25→11:31)
--- NOTE | 2019-12-30 11:38 | NUR ---
PER DR. SPENCER, KASI CAZARES. CONTINUE MERREM AND FLUCONAZOLE ORDERED IN ICU.
--- NOTE | 2019-12-30 11:54 | Occupational Ther Daily Note ---
OT Current Status-Daily Note Subjective Pt alert, sitting in w/c. Pt just transferred to ARU from ICU. Co-treat with PT, skills of 2 clinicians required for skilled care and instruction due to decreased activity tolerance, mobility and strength during functional tasks. PT working on functional transfers, bed mobility and strengthening. OT working on UE placement during functional tasks/transfers due to decreased strength/activity tolerance and ADLs. Mental Status/Objective Patient Orientation: Person, Place, Time ADL-Treatment Pt agrees to shower. Due to pt's decrease activity tolerance and strength, increased assistance needed during functional tasks. Pt transferred into/out of shower with mod A. Pt bathed chest, arms, [place] area, upper and lower legs. Assist for underarms, feet and buttocks. Assist to complete upper and lower body dressing due to decrease mobility and activity tolerance. See PT notes for pt's bed mobility. After session, pt lying in bed with call light/phone in reach. All needs met in room. Therapy Code Descriptions/Definitions Functional [place] Measure: 0=Not Assessed/NA 4=Minimal Assistance 1=Total Assistance 5=Supervision or Setup 2=Maximal Assistance 6=Modified [place] 3=Moderate Assistance 7=Complete IndependenceSCALE: Activities may be completed with or without assistive devices. 7-Cshehnooze-nhlilhw completes the activity by him/herself with no assistance from a helper. 5-Set-up or Clean-up Assistance-helper sets up or cleans up; patient completes activity. [place] assists only prior to or following the activity. 4-Supervision or Touching Assistance-helper provides verbal cues and/or touching/steadying and/or contact guard assistance as patient completes activity. Assistance may be provided throughout the activity or intermittently. 3-Partial/Moderate Assistance-helper does LESS THAN HALF the effort. [place] lifts, holds or supports trunk or limbs, but provides less than half the effort. 2-Substantial/Maximal Assistance-helper does MORE THAN HALF the effort. [place] lifts or holds trunk or limbs and provides more than half the effort. 1-Nglatajvr-gpbokg does ALL the effort. Patient does none of the effort to complete the activity. Or, the assistance of 2 or more helpers is required for the patient to complete the activity. If activity was not attempted, code reason: 7-Patient Refused. 9-Not Applicable-not attempted and the patient did not perform the activity before the current illness, exacerbation or injury. 10-Not Attempted due to Environmental Limitations-(lack of equipment, weather restraints, etc.). 88-Not Attempted due to Medical Conditions or Safety Concerns. Shower/Bathe Self (QC): 3 Upper Body Dressing (QC): 2 Lower Body Dressing (QC): 2 On/Off Footwear: 1 OT Short Term Goals Short Term Goals Time Frame: Jan 09, 2020 Eatin Oral hygiene: 4 Toileting hygiene: 3 Shower/bathe self: 3 Upper body dressin Lower body dressin OT [facility] Goals Pulp Mill Operator Goals Time Frame: Jan 23, 2020 Eating (QC): 5 Oral Hygiene (QC): 5 Toileting Hygiene (QC): 4 Shower/Bathe Self (QC): 4 Upper Body Dressing (QC): 5 Lower Body Dressing (QC): 5 On/Off Footwear (QC): 5 Additional Goals: 1-Demonstrate ADL Tasks, 2-Verbalize Understanding, 3- ImproveStrength/Melva 1=Demonstrate adherence to instructed precautions during ADL tasks. 2=Patient will verbalize/demonstrate understanding of assistive devices/mod ifications for ADL. 3=Patient will improve strength/tolerance for activity to enable patient to perform ADL's. OT Education/Plan Problem List/Assessment Assessment: Decreased Activ Tolerance, Decreased UE Strength, Impaired Self- Care Skills, Restricted Funct UE ROM Pt to benefit from skilled OT intervention for ADL training, transfers, strengthening, and home safety education to increase level of function and allow safe discharge. Discharge Recommendations Plan/Recommendations: Continue POC Treatment Plan/Plan of Care Patient would benefit from OT for education, treatment and training to promote independence in ADL's, mobility, safety and/or upper extremity function for ADL's. Plan of Care: ADL Retraining, Functional Mobility, Group Exercise/Act as Ind, UE Funct Exercise/Act, UE Neuromus Re-Ed/Coord Treatment Duration: Jan 23, 2020 Frequency: At least 5 of 7 days/Wk (IRF) Estimated Hrs Per Day: 1.5 hours per day Agreement: Yes Rehab Potential: Fair Time/GCodes Start Time: 11:00 Stop Time: 12:00 Total Time Billed (hr/min): 60 Billed Treatment Time 1 visit-ADL 4 (60 min) TEDDY HAWKINS Dec 30, 2019 11:54
--- NOTE | 2019-12-30 12:44 | ST Dysphagia Evaluation ---
Speech Evaluation-General Medical Diagnosis central cord syndrome Onset Date: Dec 11, 2019 Therapy Diagnosis Therapy Diagnosis: Oropharyngeal Dysphagia Precautions Precautions: Aspiration Referral Referring Physician: Dr. Jeffries Reason for Referral: Evaluation/Treatment Medical History Pertinent Medical History: Arthritis, CAD, DM, HTN, [place], Rheumatoid Arthritis Reviewed History: Yes Social History Current Living Status: Spouse Speech PLF/Current-Dysphagia Prior Level of Function Patient reported having a normal diet prior to his back surgery and hospital admission. Subjective Patient was alert, pleasant, and cooperative for all evaluation tasks. Patient was sitting upright in his bed to eat his modified diet of mechanical soft with nectar thickened liquids. Cognitive Status Patient Orientation: Person, Place, Time, Eyes Open, Situation Oral Motor Skills Dentition: Natural Current Food Consistancy: Mechanical Soft, [place] Liquids Ability to Follow Directions: Good Oral Expression Ability: No Impairment Voice Voice Phonatory-Based Quality: Normal Voice Pitch: Normal Voice Loudness: Normal Face Facial Symmetry: Symmetrical Oral-Facial Assessment Oral-Facial Dentition: Normal Labial Seal Description: Normal Smile: Normal Lingual Protrusion: Normal Lingual ROM: Normal Lingual Strength: Normal Dysphagia Evaluation Consistencies Presented: Mechanical Soft, [place] Thick Liquid Dietary Recommendations: Mechanical Soft Liquid Recommendations: [place] Consistancy Swallowing Precautions: Alternate Liquids/Solids, Double Swallow, Decreased Bolus 1/2 Tsp, Liquids from Straw, Small Bites and Sips, Sitting Upright 90 Degrees, Sitting 90 Degrees 30 Post Intake Dysphagia Evaluation Summary Patient was admitted the ARU s/p spinal surgery. It is important to note that this is a re-assessment of swallow function as the patient was in the ARU on 12/26 and then transferred to the ICU until this date. Patient was presented with nectar thickened liquid via straw and demonstrated no s/s of penetration or aspiration. Patient was then presented with mechanical soft consistency via 1/2 tsp spoon and demonstrated no s/s of penetration or aspiration. It is recommended that patient continue with the DYSPHAGIA II diet with nectar t hickened liquids. Additionally, patient will utilize compensatory strategies of alternating liquids and solids, small bite and sips, and sitting upright during all oral intake. Barriers to Learning Current medical status Speech Short Term Goals Short Term Goals Short Term Goals 1. Patient will tolerate least restrictive diet without s/s of aspiration at 90% or greater. 2. Patient/caregiver will utilize compensatory strategies as trained at 90% with minimal cues. Speech Jail Goals Thread Cutter Tender Goals Patient will maintain adequate nutrition/hydration via safe and effective swallow function. Speech-Plan Patient/Family Goals Patient/Family Goals: Patient reported wanting to return to prior level of independence and diet level. Treatment Plan Speech Therapy Treatment Plan: Continue Plan of Care Treatment Duration: Jan 02, 2020 Frequency: 4 times per week (4-5x per week) Estimated Hrs Per Day: .5 hour per day Rehab Potential: Fair Barriers to Learning: Current medical status. Pt/Family Agrees to Plan: Yes Safety Risks/Education Teaching Recipient: Patient Teaching Methods: Demonstration, Discussion Response to Teaching: Verbalize Understanding Education Topics Provided: Utilization of compensatory strategies during all oral intake. Time Speech Therapy Time In: 12:15 Speech Therapy Time Out: 12:45 Total Billed Time: 30 Billed Treatment Time 1DIMITRI [address] Dec 30, 2019 12:44
--- NOTE | 2019-12-30 12:47 | Physical Therapy Daily Note ---
PT Daily Note-Current Subjective Patient in WC in main area of the rehab floor. Patient agrees to PT, has no complaints of pain at rest, will be co-treating with OT this morning due to poor patient mobility, strength, endurance, just coming from ICU, the need to coordinate UE and LE during activity, for sitting and standing balance during ADL's. Appearance Patient in bed post tx with nurse call, phone, tray, all needs met. Mental Status Patient Orientation: Person, Place, Situation Attachments: Zimmerman Catheter Transfers SCALE: Activities may be completed with or without assistive devices. 5-Yjygbkqntt-wtbjfdu completes the activity by him/herself with no assistance from a helper. 5-Set-up or Clean-up Assistance-helper sets up or cleans up; patient completes activity. [place] assists only prior to or following the activity. 4-Supervision or Touching Assistance-helper provides verbal cues and/or touching/steadying and/or contact guard assistance as patient completes activity. Assistance may be provided throughout the activity or intermittently. 3-Partial/Moderate Assistance-helper does LESS THAN HALF the effort. [place] lifts, holds or supports trunk or limbs, but provides less than half the effort. 2-Substantial/Maximal Assistance-helper does MORE THAN HALF the effort. [place] lifts or holds trunk or limbs and provides more than half the effort. 2-Ssudzdmez-xgtbta does ALL the effort. Patient does none of the effort to complete the activity. Or, the assistance of 2 or more helpers is required for the patient to complete the activity. If activity was not attempted, code reason: 7-Patient Refused. 9-Not Applicable-not attempted and the patient did not perform the activity before the current illness, exacerbation or injury. 10-Not Attempted due to Environmental Limitations-(lack of equipment, weather restraints, etc.). 88-Not Attempted due to Medical Conditions or Safety Concerns. Roll Left & Right (QC): 4 Sit to Lying (QC): 3 Lying to Sitting/Side of Bed(Q: 3 Sit to Stand (QC): 3 Chair/Dxf-lm-Otmvi Xfer(QC): 4 Toilet Transfer (QC): 4 Patient performs bed mobility with SBA, supine <-> sit mod assist, sit <-> stand min assist, transfers CGA. Patient needs occasional cues for hand placement and safety, will sometimes pull up using the walker. Weight Bearing Right Lower Extremity: Right Full Weight Bearing Left Lower Extremity: Left Full Weight Bearing Gait Training Distance: 25'x2 Walk 10 feet (QC): 4 Gait Assistive Device: FWW Patient can ambulate 25' with a rolling walker with CGA. 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 Treatments shower, dressing, ambulation, transfers, bed mobility Assessment Current Status: Fair Progress Improved endurance and ambulation. Will continue physical therapy with patient at current [facility] goals and work on functional strengthening, functional mobility, endurance, balance PT Night Time Babysitter Goals Group Home Goals PT Night Time Babysitter Goals Time Frame: Jan 24, 2020 Roll Left & Right (QC): 5 Sit to Lying (QC): 5 Lying-Sitting on Side/Bed(QC): 5 Sit to Stand (QC): 5 Chair/Eos-ap-Zaxhu Xfer(QC): 5 Toilet Transfer (QC): 5 Car Transfer (QC): 5 Does the Patient Walk: Yes Walk 10 feet (QC): 5 Walk 50ft with 2 Turns (QC): 5 Walk 150 ft (QC): 5 Walking 10ft on Uneven Surface: 5 1 Step (curb) (QC): 5 4 Steps (QC): 5 12 Steps (QC): 9 Picking up an Object (QC): 5 Type: N/A Type: N/A PT Plan Problem List Problem List: Activity Tolerance, Functional Strength, Safety, Balance, Gait, Transfer, Bed Mobility Treatment/Plan Treatment Plan: Continue Plan of Care Treatment Plan: Bed Mobility, Concurrent Therapy, Education, Functional Activity Melva, Functional Strength, Group Therapy, Gait, Safety, Therapeutic Exercise, Transfers Treatment Duration: Jan 24, 2020 Frequency: At least 5 of 7 days/Wk (IRF) Estimated Hrs Per Day: 1.5 hours per day Patient and/or Family Agrees t: Yes Safety Risks/Education Patient Education: Gait Training, Transfer Techniques, Correct Positioning, Safety Issues Teaching Recipient: Patient Teaching Methods: Demonstration, Discussion Response to Teaching: Reinforcement Needed Time/GCodes Time In: 1100 Time Out: 1200 Total Billed Treatment Time: 60 Total Billed Treatment 1 visit FA 45' GT 15' Co-treated with OT for 60 min. PT performed bed mobility and transfers, ambulation, balance and positioning and safety during shower and dressing. OT performed shower and dressing and assisted with safety and positioning during ambulation. LEOBARDO HUBBARD PT Dec 30, 2019 12:47
--- NOTE | 2019-12-30 13:02 | NUR ---
PER DR. GREGG, CHANGE AMIODARONE TO 200 MG PO BID AND CONTINUE TELEMETRY.
--- NOTE | 2019-12-30 13:04 | Occupational Ther Daily Note ---
OT Current Status-Daily Note Subjective Pt resting in bed, agreeable to therapy. Pt transferring back to ARU this am. ADL-Treatment Pt supine to sit with assist for trunk. Pt demonstrated sit to stand and transfer to w/c with CGA using FWW, cues for safety. Pt transported to ARU via w/c. ALMONTE took over care of pt for treatment. Will resume previously establised NMU plan of care and goals. Therapy Code Descriptions/Definitions Functional [place] Measure: 0=Not Assessed/NA 4=Minimal Assistance 1=Total Assistance 5=Supervision or Setup 2=Maximal Assistance 6=Modified [place] 3=Moderate Assistance 7=Complete IndependenceSCALE: Activities may be completed with or without assistive devices. 3-Xptytzzjow-atyyghg completes the activity by him/herself with no assistance from a helper. 5-Set-up or Clean-up Assistance-helper sets up or cleans up; patient completes activity. [place] assists only prior to or following the activity. 4-Supervision or Touching Assistance-helper provides verbal cues and/or touching/steadying and/or contact guard assistance as patient completes activity. Assistance may be provided throughout the activity or intermittently. 3-Partial/Moderate Assistance-helper does LESS THAN HALF the effort. [place] lifts, holds or supports trunk or limbs, but provides less than half the effort. 2-Substantial/Maximal Assistance-helper does MORE THAN HALF the effort. [place] lifts or holds trunk or limbs and provides more than half the effort. 3-Vdxtsyltc-tidfys does ALL the effort. Patient does none of the effort to complete the activity. Or, the assistance of 2 or more helpers is required for the patient to complete the activity. If activity was not attempted, code reason: 7-Patient Refused. 9-Not Applicable-not attempted and the patient did not perform the activity before the current illness, exacerbation or injury. 10-Not Attempted due to Environmental Limitations-(lack of equipment, weather restraints, etc.). 88-Not Attempted due to Medical Conditions or Safety Concerns. Education OT Patient Education: Rehab process Teaching Recipient: Patient Teaching Methods: Discussion Response to Teaching: Verbalize Understanding OT Short Term Goals Short Term Goals Time Frame: Jan 09, 2020 Eatin Oral hygiene: 4 Toileting hygiene: 3 Shower/bathe self: 3 Upper body dressin Lower body dressin OT Chain Sales Consultant Goals Nursing Home Goals Time Frame: Jan 23, 2020 Eating (QC): 5 Oral Hygiene (QC): 5 Toileting Hygiene (QC): 4 Shower/Bathe Self (QC): 4 Upper Body Dressing (QC): 5 Lower Body Dressing (QC): 5 On/Off Footwear (QC): 5 Additional Goals: 1-Demonstrate ADL Tasks, 2-Verbalize Understanding, 3-ImproveStrength/Melva 1=Demonstrate adherence to instructed precautions during ADL tasks. 2=Patient will verbalize/demonstrate understanding of assistive devices/modifications for ADL. 3=Patient will improve strength/tolerance for activity to enable patient to perform ADL's. OT Education/Plan Discharge Recommendations Plan/Recommendations: Continue POC Treatment Plan/Plan of Care Patient would benefit from OT for education, treatment and training to promote independence in ADL's, mobility, safety and/or upper extremity function for ADL's. Plan of Care: ADL Retraining, Functional Mobility, Group Exercise/Act as Ind, UE Funct Exercise/Act, UE Neuromus Re-Ed/Coord Treatment Duration: Jan 23, 2020 Frequency: At least 5 of 7 days/Wk (IRF) Estimated Hrs Per Day: 1.5 hours per day Agreement: Yes Rehab Potential: Fair Time/GCodes Start Time: 10:45 Stop Time: 11:00 Total Time Billed (hr/min): 15 Billed Treatment Time 1 visit, FA(15minutes) VISHNU ROSALES OT Dec 30, 2019 13:04
--- NOTE | 2019-12-30 14:19 | Physical Therapy Daily Note ---
PT Daily Note-Current Subjective Patient in bed pre tx, agrees to PT, has no complaints of pain at rest. Appearance Patient BTB post tx with nurse call, phone, tray, in room. Mental Status Patient Orientation: Person, Place, Situation Attachments: Zimmerman Catheter Transfers SCALE: Activities may be completed with or without assistive devices. 4-Aweyinpsvy-ugstfxm completes the activity by him/herself with no assistance from a helper. 5-Set-up or Clean-up Assistance-helper sets up or cleans up; patient completes activity. [place] assists only prior to or following the activity. 4-Supervision or Touching Assistance-helper provides verbal cues and/or touching/steadying and/or contact guard assistance as patient completes activity. Assistance may be provided throughout the activity or intermittently. 3-Partial/Moderate Assistance-helper does LESS THAN HALF the effort. [place] lifts, holds or supports trunk or limbs, but provides less than half the effort. 2-Substantial/Maximal Assistance-helper does MORE THAN HALF the effort. [place] lifts or holds trunk or limbs and provides more than half the effort. 7-Levtbimke-jctbdv does ALL the effort. Patient does none of the effort to complete the activity. Or, the assistance of 2 or more helpers is required for the patient to complete the activity. If activity was not attempted, code reason: 7-Patient Refused. 9-Not Applicable-not attempted and the patient did not perform the activity before the current illness, exacerbation or injury. 10-Not Attempted due to Environmental Limitations-(lack of equipment, weather restraints, etc.). 88-Not Attempted due to Medical Conditions or Safety Concerns. Roll Left & Right (QC): 6 Sit to Lying (QC): 3 Lying to Sitting/Side of Bed(Q: 4 Sit to Stand (QC): 4 Chair/Mow-mu-Pswon Xfer(QC): 4 Car Transfer (QC): 3 Weight Bearing Right Lower Extremity: Right Full Weight Bearing Left Lower Extremity: Left Full Weight Bearing Gait Training Distance: 30'x2 Walk 10 feet (QC): 4 Gait Persons Needed: 1 Gait Assistive Device: FWW CGA, cues to keep walker close to him, occasionally his feet drag Exercises Seated Therapy Exercises: Ankle pumps, Hip flexion, Hip abd/add (with RTB and ball) LAQ alternating for 5 min with 2# ankle weights Treatments bed mobility and transfers, ambulation, LE exercise Assessment Current Status: Fair Progress improving endurance PT Bedspread Seamer Goals Senior Living Goals PT Senior Living Goals Time Frame: Jan 24, 2020 Roll Left & Right (QC): 5 Sit to Lying (QC): 5 Lying-Sitting on Side/Bed(QC): 5 Sit to Stand (QC): 5 Chair/Ark-ci-Nauze Xfer(QC): 5 Toilet Transfer (QC): 5 Car Transfer (QC): 5 Does the Patient Walk: Yes Walk 10 feet (QC): 5 Walk 50ft with 2 Turns (QC): 5 Walk 150 ft (QC): 5 Walking 10ft on Uneven Surface: 5 1 Step (curb) (QC): 5 4 Steps (QC): 5 12 Steps (QC): 9 Picking up an Object (QC): 5 Type: N/A Type: N/A PT Plan Problem List Problem List: Activity Tolerance, Functional Strength, Safety, Balance, Gait, Transfer, Bed Mobility, ROM Treatment/Plan Treatment Plan: Continue Plan of Care Treatment Plan: Bed Mobility, Concurrent Therapy, Education, Functional Activity Melva, Functional Strength, Group Therapy, Gait, Safety, Therapeutic Exercise, Transfers Treatment Duration: Jan 24, 2020 Frequency: At least 5 of 7 days/Wk (IRF) Estimated Hrs Per Day: 1.5 hours per day Patient and/or Family Agrees t: Yes Safety Risks/Education Patient Education: Gait Training, Transfer Techniques, Correct Positioning, Safety Issues Teaching Recipient: Patient Teaching Methods: Demonstration, Discussion Response to Teaching: Reinforcement Needed Time/GCodes Time In: 1345 Time Out: 1415 Total Billed Treatment Time: 30 Total Billed Treatment 1 visit EX 10' FA 20' LEOBARDO HUBBARD PT Dec 30, 2019 14:19
[2019-12-30] MEDS: oxyCODONE/APAP 7.5-325 MG (PERCOCET 7.5) TABLET PO PRN (14:23)
[2019-12-30] MEDS: MEROPENEM 500 MG in WATER (STERILE) FOR INJECTION 10 ML IV SCH ×2 (14:24→19:20)
[2019-12-30] MEDS ORDERED: RT-ALBUTEROL/IPRATROPIUM 3 ML (DUONEB) VIAL ONE (16:07)
[2019-12-30] MEDS: RT-ALBUTEROL/IPRATROPIUM 3 ML (DUONEB) VIAL INH PRN (16:13)
[2019-12-30 17:01] VITALS: BP 108/74
[2019-12-30] MEDS: DIAZEPAM 5 MG (VALIUM) TABLET PO PRN (19:57)
--- NOTE | 2019-12-30 20:16 | PM&R Progress Note ---
Subjective HPI/CC On Admission Date Seen by Provider: Dec 30, 2019 Time Seen by Provider: 10:30 Subjective/Events-last exam Hospital course: Pt had a short observation hospital course when he had some low BP, and oxygen level in addition to low heart rate, requiring ICU admission along with Dr. Rodriguez's recommendation. He was monitored closely and placed on broad-spectrum Meropenem and Vancomycin for presumed facility-acquired pneumonia. He did have an elevated troponin, it was assessed to be a type II NSTEMI, and Noemi Frazier was consulted. Overall Pt stabilized, was able to be discharged back into inpatient rehab to continue his rehab course. Checked meds and labs Conferred with RN Reviewed therapy notes Reviewed extensive notes from [facility] Review of Systems General: Fatigue Pulmonary: Dyspnea Musculoskeletal: neck pain Neurological: Weakness, Numbness, Incoordination Objective Exam Vital Signs Vital Signs Date Time Temp Pulse Resp B/P (MAP) Pulse Ox O2 Delivery O2 Flow Rate FiO2 12/30/19 19:00 67 12/30/19 17:01 36.2 16 108/74 (85) 92 Room Air 12/30/19 16:13 2.00 Capillary Refill : Less Than 3 Seconds General Appearance: No Apparent Distress, WD/WN, Anxious, Chronically ill, Other (very fatigued, [place]) HEENT: PERRL/EOMI, Normal ENT Inspection, Pharynx Normal Neck: Non Tender, Supple, Carotid Bruit, Other (limited ROM in brace) Respiratory: Chest Non Tender, Lungs Clear, No Accessory Muscle Use, No Respiratory Distress, Decreased Breath Sounds Cardiovascular: No Gallop, No JVD, No Murmur, Normal Peripheral Pulses, Tachycardia Gastrointestinal: Normal Bowel Sounds, No Organomegaly, No Pulsatile Mass, Non Tender, Soft Back: Normal Inspection, No CVA Tenderness, No Vertebral Tenderness Extremity: Normal Capillary Refill, Normal Inspection, Normal Range of Motion, Non Tender, No Calf Tenderness, Pedal Edema Neurologic/Psychiatric: Alert, Oriented x3, Normal Mood/Affect, supervisor coal handling II-XII Norm as Tested, Abnormal Gait, Depressed Affect, Motor Weakness (weakness upper and lower extremities) Skin: Normal Color, Warm/Dry Lymphatic: No Adenopathy Results/Procedures Lab Patient resulted labs reviewed. FIM Transfers Therapy Code Descriptions/Definitions Functional [place] Measure: 0=Not Assessed/NA 4=Minimal Assistance 1=Total Assistance 5=Supervision or Setup 2=Maximal Assistance 6=Modified [place] 3=Moderate Assistance 7=Complete IndependenceSCALE: Activities may be completed with or without assistive devices. 5-Zvjvkurddn-ddnptru completes the activity by him/herself with no assistance fr om a helper. 5-Set-up or Clean-up Assistance-helper sets up or cleans up; patient completes activity. [place] assists only prior to or following the activity. 4-Supervision or Touching Assistance-helper provides verbal cues and/or touching/steadying and/or contact guard assistance as patient completes activity. Assistance may be provided throughout the activity or intermittently. 3-Partial/Moderate Assistance-helper does LESS THAN HALF the effort. [place] lifts, holds or supports trunk or limbs, but provides less than half the effort. 2-Substantial/Maximal Assistance-helper does MORE THAN HALF the effort. [place] lifts or holds trunk or limbs and provides more than half the effort. 6-Fxqzqljog-vxywxc does ALL the effort. Patient does none of the effort to complete the activity. Or, the assistance of 2 or more helpers is required for the patient to complete the activity. If activity was not attempted, code reason: 7-Patient Refused. 9-Not Applicable-not attempted and the patient did not perform the activity before the current illness, exacerbation or injury. 10-Not Attempted due to Environmental Limitations-(lack of equipment, weather restraints, etc.). 88-Not Attempted due to Medical Conditions or Safety Concerns. Roll Left to Right (QC): 6 Sit to Lying (QC): 3 Sit to Stand (QC): 4 Chair/Rrd-mv-Wbbds Xfer(QC): 4 Car Transfer (QC): 3 Gait Training Does the Patient Walk?: Yes Distance: 30'x2 Walk 10 feet (QC): 4 Walk 50 ft with 2 Turns(QC): 4 Walk 150 ft (QC): 88 Walking 10ft/uneven surface-QC: 88 Gait Persons Needed: 1 Gait Assistive Device: FWW Wheelchair Training Does the Pt Use a Wheelchair?: Yes Distance: 5' Wheel 50 ft with 2 turns (QC): 88 Wheel 150 ft (QC): 88 Type of Wheelchair: Manual Stair Training 1 Step (curb) (QC): 88 4 Steps (QC): 88 12 Steps (QC): 9 Balance Picking up an Object (QC): 88 ADL-Treatment Oral Hygiene (QC): 6 Shower/Bathe Self (QC): 3 Upper Body Dressing (QC): 2 Lower Body Dressing (QC): 2 On/Off Footwear (QC): 1 Toileting Hygiene (QC): 1 Toilet Transfer (QC): 3 Assessment/Plan Assessment and Plan Assess & Plan/Chief Complaint Assessment: Debility Bilateral bibasilar PNA placed on Vanc and Meropenem and Diflucan and moved to ICU x 2 days h/o septic shock 08/2019 s/p central cervical spinal cord syndrome resulting in chronic debility and weakness s/p decompression per [facility] h/o UTI CAD s/p stents 12/18/19 Dr Lovelace after cardiac arrest Ischemic cardiomyopathy previous Lifevest worn Tendency for volume overload Chronic edema Bipolar disorder Urinary retention failed voiding trial at [facility] prior to admit maintained on Zimmerman started Flomax and consulted Dr Barrientos Plan: Home meds Appreciate cardiology and pulmonology and urology Monitor volume status Inpatient rehabilitation protocol Abx to complete (1) Central cord syndrome (2) Spinal cord compression (3) Former smoker (4) Bipolar disorder (5) Delirium (6) Edema (7) Wheelchair bound (8) DAISY on CPAP (9) CAD (coronary artery disease) (10) CHF (congestive heart failure) (11) UTI (urinary tract infection) (12) Debility Status: Acute (13) Sacral pressure ulcer MANPREET SPENCER DO Dec 30, 2019 20:16
[2019-12-30] MEDS: RT-ALBUTEROL/IPRATROPIUM 3 ML (DUONEB) VIAL INH SCH (21:36)
[2019-12-31] MEDS: MEROPENEM 500 MG in WATER (STERILE) FOR INJECTION 10 ML IV SCH ×4 (01:39→19:24)
[2019-12-31] MEDS: RT-ALBUTEROL/IPRATROPIUM 3 ML (DUONEB) VIAL INH PRN (03:43)
[2019-12-31 05:38] VITALS: BP 104/69
[2019-12-31] MEDS: inSUlin ASPART (NovoLOG) 1 UNIT/0.01 ML (CHARGE PER UNIT) SC SCH ×4 (05:41→21:09)
[2019-12-31] MEDS: oxyCODONE/APAP 7.5-325 MG (PERCOCET 7.5) TABLET PO PRN ×2 (06:34→14:51)
--- NOTE | 2019-12-31 06:55 | Progress Note - Urology ---
Progress Note-Urology Progress Notes/Assess & Plan Progress/Assessment & Plan BACK ON FLOMAX. CYSTOSCOPY TOMORROW AT BEDSIDE UNDER LOCAL, FULLY EXPLAINED Final Diagnosis URINE RETENTION MORGAN CORREA MD Dec 31, 2019 06:55
[2019-12-31] MEDS: RT-ALBUTEROL/IPRATROPIUM 3 ML (DUONEB) VIAL INH SCH ×3 (07:59→16:19)
--- NOTE | 2019-12-31 08:28 | Cardiology Progress Note ---
Subjective Date Seen by Provider: Dec 31, 2019 Time Seen by Provider: 08:15 Subjective/Events-last exam Patient is sitting up in wheelchair, denies any chest pain or dyspnea. Review of Systems General: No Chills, No Night Sweats, No Fatigue, No Malaise, No Appetite, No Other HEENT: No Head Aches, No Visual Changes, No Eye Pain, No Ear Pain, No Dysphasia, No Sinus Congestion, No Post Nasal Drip, No Sore Throat, No Other Pulmonary: No Dyspnea, No Cough, No Pleuritic Chest Pain, No Other Cardiovascular: No: Chest Pain, Palpitations, Orthopnea, Paroxysmal Noc. Dyspnea, Edema, Lt Headedness, Other Objective-Cardiology Exam Last Set of Vital Signs Vital Signs 12/31/19 12/31/19 12/31/19 12/31/19 03:43 05:38 11:25 12:44 Temp 36.8 Pulse 78 Resp 18 B/P (MAP) 104/69 (81) Pulse Ox 94 O2 Delivery Room Air O2 Flow Rate 2.00 Capillary Refill : Less Than 3 Seconds I&O Intake and Output 12/31/19 00:00 Intake Total 614 ml Output Total 550 ml Balance 64 ml Intake Oral 594 ml IV Total 20 ml Output Urine Total 550 ml General: Alert, Oriented X3, Cooperative HEENT: Atraumatic, PERRLA Neck: Supple, No JVD, No Thyromegaly Lungs: Clear to Auscultation, Normal Air Movement Heart: Regular Rate, Normal S1, Normal S2, No Murmurs Abdomen: Normal Bowel Sounds, Soft, No Tenderness, No Hepatosplenomegaly, No Masses Extremities: Other (trace edema BLE) Skin: No Rashes, No Significant Lesion A/P-Cardiology Admission Diagnosis CAD Acute respiratory failure CHF elevated troponin, type II NE Assessment/Plan Coronary artery disease, history of cardiac catheterization with stenting in July 2009 and then another cardiac catheterization with 3 stents done earlier this month, continue on aspirin and Plavix without interruption. Status post acute respiratory failure, currently back to baseline, having shortness of breath. Continue to monitor Congestive heart failure, chronic compensated left ventricular systolic dysfunction, ischemic cardiomyopathy, echocardiogram showed ejection fraction 40-45 percent which is significant improvement compared to the previous study. Maintained on beta maximo, ARB, continue to monitor. Mild elevation in troponin, probably type II NE secondary to hypoxemia and h ypotension, trending down. Continue to monitor Status post C-spine surgery, recovering slowly Hyperlipidemia maintained on Lipitor Bipolar disorder, managed by primary care physician Patient was seen and evaluated with Viola, examination performed, management plan was discussed, agree with the current scribed note, I made few changes to the note using Italic font Patient is laying down in bed comfortably, denied any pain, breathing is better. Borderline hypotensive, continue to monitor blood pressure. Clinical Quality Measures DVT/VTE Risk/Contraindication: Risk Factor Score Per Nursin RFS Level Per Nursing on Admit: 4+=Very High [facility] NGO Dec 31, 2019 08:28 ALINA GREGG MD Dec 31, 2019 15:52
--- NOTE | 2019-12-31 09:03 | Occupational Ther Daily Note ---
OT Current Status-Daily Note Subjective Pt seen in recliner chair, alert/ oriented. Pt agreeable to OT tx session, stating minimal pain at the time. Mental Status/Objective Patient Orientation: Person, Place, Situation, Normal For Age Attachments: Levy Catheter ADL-Treatment Therapy Code Descriptions/Definitions Functional [place] Measure: 0=Not Assessed/NA 4=Minimal Assistance 1=Total Assistance 5=Supervision or Setup 2=Maximal Assistance 6=Modified [place] 3=Moderate Assistance 7=Complete IndependenceSCALE: Activities may be completed with or without assistive devices. 6-Mdhwdvpdke-vigdomx completes the activity by him/herself with no assistance from a helper. 5-Set-up or Clean-up Assistance-helper sets up or cleans up; patient completes activity. [place] assists only prior to or following the activity. 4-Supervision or Touching Assistance-helper provides verbal cues and/or touching/steadying and/or contact guard assistance as patient completes activity. Assistance may be provided throughout the activity or intermittently. 3-Partial/Moderate Assistance-helper does LESS THAN HALF the effort. [place] lifts, holds or supports trunk or limbs, but provides less than half the effort. 2-Substantial/Maximal Assistance-helper does MORE THAN HALF the effort. [place] lifts or holds trunk or limbs and provides more than half the effort. 5-Nxseagcnj-luegsx does ALL the effort. Patient does none of the effort to complete the activity. Or, the assistance of 2 or more helpers is required for the patient to complete the activity. If activity was not attempted, code reason: 7-Patient Refused. 9-Not Applicable-not attempted and the patient did not perform the activity before the current illness, exacerbation or injury. 10-Not Attempted due to Environmental Limitations-(lack of equipment, weather restraints, etc.). 88-Not Attempted due to Medical Conditions or Safety Concerns. Oral Hygiene (QC): 5 (s/u in front of sink with w/c. Pt completes with mod I.) Upper Body Dressing (QC): 3 (Pt able to doff night shirt with min A (buttons, cues for sequencing due to weaker L side), dons pull-over shirt with mod A (bringing shirt to axillas and bringing overhead)) Lower Body Dressing (QC): 3 (mod A- pt requires assist iwht L LE threading with breif (min A) and pants (mod A) due to levy cath. Pt able to utilize dermatology technician/ UE's to pull to knees over R foot. pt sit to stand x2 with SBA, completes pulling up most of way, requires min A pulling over hips.) On/Off Footwear: 7 (denies) Toileting Hygiene (QC): 3 (Pt able to reach bottom/ cleanse self, states diminished sensation in R hand to be able to discriminate where hand is placed. Pt requires mod A for thoroughness, pt's balance fair in stance.) Toilet Transfer (QC): 7 Other Treatment Pt unable to state precautions, educated on all. Pt sit to stand and transfers with walker to w/c with CGA. Pt completes oral care with s/u in front of sink. pt requires max A for hair care due to decreased strength/ ROM in BUE's. Pt completes dressing at w/c level utilizing dressing stick and dermatology technician. Pt returns to recliner, retrograde massage completed on L hand due to increased edema. Pt then completes 5 min of L hand squeezes with sponge (10 reps at arm rest, 5 reps x5 at shoulder height). Pt states fatigue in L hand. pt sits in recliner, call light in reach, all needs met, L UE elevated with pillow. Education OT Patient Education: Correct positioning, Exercise program, Home exercise program, Modified ADL techniques, Reviewed precautions, Safety issues, Use of adapted equipment Teaching Recipient: Patient Teaching Methods: Demonstration, Discussion Response to Teaching: Verbalize Understanding, Return Demonstration OT Short Term Goals Short Term Goals Time Frame: Jan 09, 2020 Eatin Oral hygiene: 4 Toileting hygiene: 3 Shower/bathe self: 3 Upper body dressin Lower body dressin OT Fdc Goals Fdc Goals Time Frame: Jan 23, 2020 Eating (QC): 5 Oral Hygiene (QC): 5 Toileting Hygiene (QC): 4 Shower/Bathe Self (QC): 4 Upper Body Dressing (QC): 5 Lower Body Dressing (QC): 5 On/Off Footwear (QC): 5 Additional Goals: 1-Demonstrate ADL Tasks, 2-Verbalize Understanding, 3- ImproveStrength/Melva 1=Demonstrate adherence to instructed precautions during ADL tasks. 2=Patient will verbalize/demonstrate understanding of assistive devices/modifications for ADL. 3=Patient will improve strength/tolerance for activity to enable patient to perform ADL's. OT Education/Plan Problem List/Assessment Assessment: Decreased Activ Tolerance, Decreased UE Strength, Edema, Impaired Coordination, Impaired Funct Balance, Impaired I ADL's, Impaired Self-Care Skills, Restricted Funct UE ROM Discharge Recommendations Plan/Recommendations: Continue POC Treatment Plan/Plan of Care Treatment,Training & Education: Yes Patient would benefit from OT for education, treatment and training to promote independence in ADL's, mobility, safety and/or upper extremity function for ADL's. Plan of Care: ADL Retraining, Functional Mobility, Group Exercise/Act as Ind, UE Funct Exercise/Act, UE Neuromus Re-Ed/Coord Treatment Duration: Jan 23, 2020 Frequency: At least 5 of 7 days/Wk (IRF) Estimated Hrs Per Day: 1.5 hours per day Agreement: Yes Rehab Potential: Fair Time/GCodes Start Time: 08:00 Stop Time: 09:00 Total Time Billed (hr/min): 60 Billed Treatment Time 1, ADL 3 (45), EX (15)= 60 STEPAN SALEEM OTR Dec 31, 2019 09:03
--- NOTE | 2019-12-31 09:39 | PM&R Progress Note ---
Subjective HPI/CC On Admission Date Seen by Provider: Dec 31, 2019 Time Seen by Provider: 09:30 Subjective/Events-last exam Pt adjusting back in the unit very well Cystoscopy will be performed in the morning Regular diet with nectar thickened fluid Flomax BID will help the retention Overall feels much improved maintained on Meropenem and Diflucan, Vanc was discontinued yesterday No significant major issues and he feels a lot better being in rehab Checked meds and labs Conferred with RN Reviewed therapy notes Reviewed extensive notes from [facility] Review of Systems General: Fatigue Pulmonary: Dyspnea Genitourinary: Retention Musculoskeletal: neck pain Objective Exam Vital Signs Vital Signs Date Time Temp Pulse Resp B/P (MAP) Pulse Ox O2 Delivery O2 Flow Rate FiO2 12/31/19 19:30 91 Room Air 12/31/19 18:19 37.0 82 22 92/55 (67) 12/31/19 08:25 2.00 Capillary Refill : Less Than 3 Seconds General Appearance: No Apparent Distress, WD/WN, Anxious, Chronically ill, Other (very fatigued, arrieta) HEENT: PERRL/EOMI, Normal ENT Inspection, Pharynx Normal Neck: Non Tender, Supple, Carotid Bruit, Other (limited ROM in brace) Respiratory: Chest Non Tender, Lungs Clear, No Accessory Muscle Use, No Respiratory Distress, Decreased Breath Sounds Cardiovascular: No Gallop, No JVD, No Murmur, Normal Peripheral Pulses, Tachycardia Gastrointestinal: Normal Bowel Sounds, No Organomegaly, No Pulsatile Mass, Non Tender, Soft Back: Normal Inspection, No CVA Tenderness, No Vertebral Tenderness Extremity: Normal Capillary Refill, Normal Inspection, Normal Range of Motion, Non Tender, No Calf Tenderness, Pedal Edema Neurologic/Psychiatric: Alert, Oriented x3, Normal Mood/Affect, review specialist II-XII Norm as Tested, Abnormal Gait, Depressed Affect, Motor Weakness (weakness upper and lower extremities) Skin: Normal Color, Warm/Dry Lymphatic: No Adenopathy Results/Procedures Lab Patient resulted labs reviewed. FIM Transfers Therapy Code Descriptions/Definitions Functional [place] Measure: 0=Not Assessed/NA 4=Minimal Assistance 1=Total Assistance 5=Supervision or Setup 2=Maximal Assistance 6=Modified [place] 3=Moderate Assistance 7=Complete IndependenceSCALE: Activities may be completed with or without assistive devices. 3-Neinkgoltc-hqfuabf completes the activity by him/herself with no assistance from a helper. 5-Set-up or Clean-up Assistance-helper sets up or cleans up; patient completes activity. [place] assists only prior to or following the activity. 4-Supervision or Touching Assistance-helper provides verbal cues and/or touching/steadying and/or contact guard assistance as patient completes activity. Assistance may be provided throughout the activity or intermittently. 3-Partial/Moderate Assistance-helper does LESS THAN HALF the effort. [place] lift s, holds or supports trunk or limbs, but provides less than half the effort. 2-Substantial/Maximal Assistance-helper does MORE THAN HALF the effort. [place] lifts or holds trunk or limbs and provides more than half the effort. 6-Egcujadcw-dghqxf does ALL the effort. Patient does none of the effort to complete the activity. Or, the assistance of 2 or more helpers is required for the patient to complete the activity. If activity was not attempted, code reason: 7-Patient Refused. 9-Not Applicable-not attempted and the patient did not perform the activity before the current illness, exacerbation or injury. 10-Not Attempted due to Environmental Limitations-(lack of equipment, weather restraints, etc.). 88-Not Attempted due to Medical Conditions or Safety Concerns. Roll Left to Right (QC): 6 Sit to Lying (QC): 3 Sit to Stand (QC): 4 Chair/Nsu-iv-Vleew Xfer(QC): 4 Car Transfer (QC): 3 Gait Training Does the Patient Walk?: Yes Distance: 30'x2 Walk 10 feet (QC): 4 Walk 50 ft with 2 Turns(QC): 4 Walk 150 ft (QC): 88 Walking 10ft/uneven surface-QC: 88 Gait Persons Needed: 1 Gait Assistive Device: FWW Wheelchair Training Does the Pt Use a Wheelchair?: Yes Distance: 5' Wheel 50 ft with 2 turns (QC): 88 Wheel 150 ft (QC): 88 Type of Wheelchair: Manual Stair Training 1 Step (curb) (QC): 88 4 Steps (QC): 88 12 Steps (QC): 9 Balance Picking up an Object (QC): 88 ADL-Treatment Oral Hygiene (QC): 5 (s/u in front of sink with w/c. Pt completes with mod I.) Shower/Bathe Self (QC): 3 Upper Body Dressing (QC): 3 (Pt able to doff night shirt with min A (buttons, cues for sequencing due to weaker L side), dons pull-over shirt with mod A (bringing shirt to axillas and bringing overhead)) Lower Body Dressing (QC): 3 (mod A- pt requires assist iwht L LE threading with breif (min A) and pants (mod A) due to levy cath. Pt able to utilize film and video graphics designer/ UE's to pull to knees over R foot. pt sit to stand x2 with SBA, completes pulling up most of way, requires min A pulling over hips.) On/Off Footwear (QC): 7 (denies) Toileting Hygiene (QC): 3 (Pt able to reach bottom/ cleanse self, states diminished sensation in R hand to be able to discriminate where hand is placed. Pt requires mod A for thoroughness, pt's balance fair in stance.) Toilet Transfer (QC): 7 Assessment/Plan Assessment and Plan Assess & Plan/Chief Complaint Assessment: Debility Bilateral bibasilar PNA placed on Vanc and Meropenem and Diflucan and moved to ICU x 2 days h/o septic shock 08/2019 s/p central cervical spinal cord syndrome resulting in chronic debility and weakness s/p decompression per [facility] h/o UTI CAD s/p stents 12/18/19 Dr Lovelace after cardiac arrest Ischemic cardiomyopathy previous Lifevest worn Tendency for volume overload Chronic edema Bipolar disorder Urinary retention failed voiding trial at [facility] prior to admit maintained on Levy started Flomax and consulted Dr Barrientos and cysto tomorrow Plan: Home meds Appreciate cardiology and pulmonology and urology Monitor volume status Inpatient rehabilitation protocol Abx to complete Cysto tomorrow (1) Central cord syndrome (2) Spinal cord compression (3) Former smoker (4) Bipolar disorder (5) Delirium (6) Edema (7) Wheelchair bound (8) DAISY on CPAP (9) CAD (coronary artery disease) (10) CHF (congestive heart failure) (11) UTI (urinary tract infection) (12) Debility Status: Acute (13) Sacral pressure ulcer MANPREET SPENCER DO Dec 31, 2019 09:39
[2019-12-31] MEDS: FLUCONAZOLE 200 MG/100 ML 100 ML IV SCH ×2 (09:48→11:03)
[2019-12-31] MEDS: VRAYLAR 1.5 MG CAPSULE PO SCH (09:49)
[2019-12-31] MEDS: rOPINIRole 0.25 MG (REQUIP) TAB PO SCH (09:50)
[2019-12-31] MEDS: CLOPIDOGREL 75 MG (PLAVIX) TABLET PO SCH (09:50)
[2019-12-31] MEDS: PREGABALIN 150 MG (LYRICA) CAPSULE PO SCH ×2 (09:50→20:17)
[2019-12-31] MEDS: SERTRALINE 100 MG (ZOLOFT) TAB PO SCH (09:50)
[2019-12-31] MEDS: DIVALPROEX 500 MG DELAYED RELEASE (DEPAKOTE) TAB PO SCH ×2 (09:50→20:17)
[2019-12-31] MEDS: PANTOPRAZOLE 40 MG (PROTONIX) TAB PO SCH (09:51)
[2019-12-31] MEDS: SENNA W/DOCUSATE (SENOKOT S) TABLET PO SCH ×2 (09:51→19:38)
[2019-12-31] MEDS: polyethylene glycoL POWDER 17 GM (MIRALAX) PACK PO SCH ×2 (09:51→19:38)
[2019-12-31] MEDS: ASPIRIN 81 MG CHEW (CHILDREN'S ASA) PO SCH (09:51)
--- NOTE | 2019-12-31 10:00 | Progress Note ---
JARRELL TAVARES, MEDICAL STUDENT 12/31/19 1000: Progress Note Subjective/Events-last exam Hospital course: Pt had a short observation hospital course when he had some low BP, and oxygen level in addition to low heart rate, requiring ICU admission along with Dr. Rodriguez's recommendation. He was monitored closely and placed on broad-spectrum Meropenem and Vancomycin for presumed facility-acquired pneumonia. He did have an elevated troponin, it was assessed to be a type II NSTEMI, and Noemi Frazier was consulted. Overall Pt stabilized, was able to be discharged back into inpatient rehab to continue his rehab course. Patient is doing well and was able to change clothes by himself for first time since surgery Planning for Cystoscopy tomorrow Patient diet upgraded to regular Continuing incentive spirometry General Appearance: No Apparent Distress, WD/WN, Anxious, Chronically ill, Other (very fatigued, arrieta) Neck: Non Tender, Supple, Carotid Bruit, Other (limited ROM in brace) Respiratory: Chest Non Tender, Lungs Clear, No Accessory Muscle Use, No Respiratory Distress, Decreased Breath Sounds Cardiovascular: No Gallop, No JVD, No Murmur, Normal Peripheral Pulses, Tachycardia Gastrointestinal: Normal Bowel Sounds, No Organomegaly, No Pulsatile Mass, Non Tender, Soft Back: Normal Inspection, No CVA Tenderness, No Vertebral Tenderness Extremity: Normal Capillary Refill, Normal Inspection, Normal Range of Motion, Non Tender, No Calf Tenderness, Pedal Edema Skin: Normal Color, Warm/Dry Lymphatic: No Adenopathy Assessment/Plan Assessment and Plan Assess & Plan/Chief Complaint Assessment: Debility Bilateral bibasilar PNA placed on Vanc and Meropenem and Diflucan and moved to ICU x 2 days h/o septic shock 08/2019 s/p central cervical spinal cord syndrome resulting in chronic debility and weakness s/p decompression per [facility] h/o UTI CAD s/p stents 12/18/19 Dr Lovelace after cardiac arrest Ischemic cardiomyopathy previous Lifevest worn Tendency for volume overload Chronic edema Bipolar disorder Urinary retention failed voiding trial at [facility] prior to admit maintained on [place] started Flomax and consulted Dr Barrientos Plan: Home meds Appreciate cardiology and pulmonology and urology Monitor volume status Inpatient rehabilitation protocol Abx to complete Cystoscopy tomorrow per Urology AMANDA SPENCER DO 12/31/191947: Supervisory-Addendum Brief Verification & Attestation Participated in pt care: history, MDM, physical Personally performed: exam, history, MDM, supervision of care Care discussed with: Medical Student Procedures: n/a Results interpretation: Verified all documentation Verification and Attestation of Medical Student E/M Service A medical student performed and documented this service in my presence. I reviewed and verified all information documented by the medical student and made modifications to such information, when appropriate. I personally performed the physical exam and medical decision making. Amanda Spencer, Dec 31, 2019,19:48 JARRELL TAVARES, MEDICAL STUDENT Dec 31, 2019 10:00 AMANDA SPENCER DO Dec 31, 2019 19:48
[2019-12-31] MEDS: LOSARTAN 25 MG (COZAAR) TAB PO SCH (10:04)
[2019-12-31] MEDS: CARVEDILOL 6.25 MG (COREG) TAB PO SCH ×2 (10:04→20:27)
[2019-12-31] MEDS: AMIODARONE 200 MG (CORDARONE) TAB PO SCH ×2 (10:04→20:17)
[2019-12-31] MEDS: CYCLOBENZAPRINE 10 MG (FLEXERIL) TAB PO PRN (11:00)
--- NOTE | 2019-12-31 11:10 | Physical Therapy Daily Note ---
PT Daily Note-Current Subjective Pt siting in recliner upon arrival. Pt agrees to PT. Pain Numeric Pain Scale: 5-Moderate Pain Location Body Site: Neck Pain Description: Ache Mental Status Patient Orientation: Person, Place, Situation Attachments: Other-See Comments (Cervical collar) Transfers SCALE: Activities may be completed with or without assistive devices. 3-Bsimvdpzlk-sqvnghs completes the activity by him/herself with no assistance from a helper. 5-Set-up or Clean-up Assistance-helper sets up or cleans up; patient completes activity. [place] assists only prior to or following the activity. 4-Supervision or Touching Assistance-helper provides verbal cues and/or touching/steadying and/or contact guard assistance as patient completes activity. Assistance may be provided throughout the activity or intermittently. 3-Partial/Moderate Assistance-helper does LESS THAN HALF the effort. [place] lifts, holds or supports trunk or limbs, but provides less than half the effort. 2-Substantial/Maximal Assistance-helper does MORE THAN HALF the effort. [place] lifts or holds trunk or limbs and provides more than half the effort. 0-Fnavvujus-gdphff does ALL the effort. Patient does none of the effort to complete the activity. Or, the assistance of 2 or more helpers is required for the patient to complete the activity. If activity was not attempted, code reason: 7-Patient Refused. 9-Not Applicable-not attempted and the patient did not perform the activity before the current illness, exacerbation or injury. 10-Not Attempted due to Environmental Limitations-(lack of equipment, weather restraints, etc.). 88-Not Attempted due to Medical Conditions or Safety Concerns. Sit to Stand (QC): 4 Chair/Hov-tm-Awsnl Xfer(QC): 4 Weight Bearing Right Lower Extremity: Right Full Weight Bearing Left Lower Extremity: Left Full Weight Bearing Gait Training Does the Patient Walk?: Yes Distance: 75', 30' Walk 10 feet (QC): 4 Walk 50 ft with 2 Turns(QC): 4 Gait Persons Needed: 1 Gait Assistive Device: FWW Pt needs VC to stay closer to FWW. Pt is fatigued by end of walk. Wheelchair Training Does the Pt Use a Wheelchair?: Yes Wheel 50 ft with 2 turns (QC): 4 Type of Wheelchair: Manual Exercises Seated Therapy Exercises: Ankle pumps, Long arc quads, Hip flexion, Kicking activity, Hip abd/add, Glut set Seated Reps: 15 NuStep Minutes: 10 NuStep Workload: 5 Treatments Pt stands from recliner and ambulates in hallway to Therapy Gym. Pt takes RB before using NuStep for 10m at WL 5. Pt then completes Seated EX in W/C. Pt then ambulates additional 30' before returning to W/C. Pt propels W/C to room, resting at end of Rx. Pt has all needs met, call light next to pt. Nurse to administer IV & pain med as needed. Assessment Current Status: Good Progress Pt is making progress with strength and activity tolerance, although it is still difficult at this time. PT Refinery Operator Light Ends Recovery Goals Refinery Operator Light Ends Recovery Goals PT Refinery Operator Light Ends Recovery Goals Time Frame: Jan 24, 2020 Roll Left & Right (QC): 5 Sit to Lying (QC): 5 Lying-Sitting on Side/Bed(QC): 5 Sit to Stand (QC): 5 Chair/Ujb-ky-Cxwbv Xfer(QC): 5 Toilet Transfer (QC): 5 Car Transfer (QC): 5 Does the Patient Walk: Yes Walk 10 feet (QC): 5 Walk 50ft with 2 Turns (QC): 5 Walk 150 ft (QC): 5 Walking 10ft on Uneven Surface: 5 1 Step (curb) (QC): 5 4 Steps (QC): 5 12 Steps (QC): 9 Picking up an Object (QC): 5 Type: N/A Type: N/A PT Plan Problem List Problem List: Activity Tolerance, Functional Strength, Safety, Balance, Gait, Transfer Treatment/Plan Treatment Plan: Continue Plan of Care Treatment Plan: Bed Mobility, Concurrent Therapy, Education, Functional Activity Melva, Functional Strength, Group Therapy, Gait, Safety, Therapeutic Exercise, Transfers Treatment Duration: Jan 24, 2020 Frequency: At least 5 of 7 days/Wk (IRF) Estimated Hrs Per Day: 1.5 hours per day Patient and/or Family Agrees t: Yes Safety Risks/Education Patient Education: Gait Training, Transfer Techniques, Correct Positioning, W/C Management, Safety Issues Teaching Recipient: Patient Teaching Methods: Discussion Response to Teaching: Verbalize Understanding Time/GCodes Time In: 1000 Time Out: 1100 Total Billed Treatment Time: 60 Total Billed Treatment 1, GT (20m), WCH (10m), & EX x2 (30m) YOLETTE BALLARD PTA Dec 31, 2019 11:10
--- NOTE | 2019-12-31 13:51 | Speech Therapy Daily Note ---
Speech Daily Progress Note Subjective Date Seen by Provider: Dec 31, 2019 Time Seen by Provider: 11:30 Patient was alert, upbeat, and cooperative for all therapy tasks. Patient reported that his appetite is slowly coming back and ate his entire plate of dinner last night. Patient sat upright in his chair for the duration of treatment. Objective Patient was presented with thin liquids via 1/2 tsp spoon and straw and demo nstrated no s/s of penetration or aspiration. Patient will be upgraded to a regular diet with thin liquids. Patient completed compensatory strategies at 85% with minimal cues. Assessment Assessment Current Status: Good Progress Treatment Plan Continue Plan of Care Speech Short Term Goals Short Term Goals Short Term Goals 1. Patient will tolerate least restrictive diet without s/s of aspiration at 90% or greater. 2. Patient/caregiver will utilize compensatory strategies as trained at 90% with minimal cues. Speech President Sales And Marketing Goals President Sales And Marketing Goals Patient will maintain adequate nutrition/hydration via safe and effective swallow function. Speech-Plan Patient/Family Goals Patient/Family Goals: Patient reported that he wishes to return home to previous level of independence and mobility. Treatment Plan Speech Therapy Treatment Plan: Continue Plan of Care Treatment Duration: Jan 02, 2020 Frequency: 4 times per week (4-5x per week) Estimated Hrs Per Day: .5 hour per day Rehab Potential: Fair Barriers to Learning: Current medical status Pt/Family Agrees to Plan: Yes Safety Risks/Education Teaching Recipient: Patient Teaching Methods: Demonstration Response to Teaching: Verbalize Understanding Education Topics Provided: Continued utilization of compensatory strategies for safe and effective oral intake. Time Speech Therapy Time In: 11:30 Speech Therapy Time Out: 12:00 Total Billed Time: 30 Billed Treatment Time 1, DYST ISRA Evangelista Dec 31, 2019 13:51
--- NOTE | 2019-12-31 14:46 | Therapy Group Daily Note ---
Therapy Daily Group Note Patient Education Topic Home Safety Exercises LE Seated Exercise, UE Exercise Session Ratio (pt:therapist): 3:1 Goal of Session: Home Safety Strategies Goal Met for this Session: Yes Pt Benefit of Group: Contributions to Others, F/U Use of Strategies @Home, Increased Functional Safety, Increased Functional Strength, Improved Cognition, Recognition of Peers, Socialization Other/Notes Pt ambulated to therapy gym for OT/PT group. Group consisted of introductions (name, place, who taught pt to drive), socialization, seat UE/LE exercises and home safety education. Pt introduced self appropriately and actively listened to peers. Pt was able to complete UE/LE seated exercises, UE with dowel natacha exercise. Pt acknowledged understanding of educational topic by verbalizing own strategies. After therapy, pt lying in bed with call light/phone in reach. All needs met in room. Start Time: 13:00 Stop Time: 14:10 Total Billed Treatment Time: 70 Total Billed Treatment 1-GRP TEDDY HAWKINS Dec 31, 2019 14:46
--- NOTE | 2019-12-31 14:53 | NUR ---
"RD ASSESSMENT PMHx: cardiomyopathy; CAD; HTN; hypercholesterolemia; paralysis; renal failure; chronic constipation; DM PT INTERACTION: Pt was awake and pleasant during nutrition assessment. This RD met with pt on 12/29 when they were in ICU. Refer to that note for full assessment. Pt states current appetite is getting better. Note avg PO intake of 60% x1meal, per chart review. Pt states no issues with n/v/c/d since last assessment. Note last BM was 12/27, and pt currently on bowel regimen of senna BID; and miralax BID, per chart review. ABNORMAL NUTRITION-RELATED LAB VALUES LOW: Pro 6.1 HIGH: glu 163 Est. kcal needs: 6907-4385 kcal | 15-18 kcal/kg Est. Pro needs: 82-104 g Pro | 0.8-1.0 g Pro/kg PES STATEMENT: Inadequate oral intake (NI-2.1) related to loss of appetite as evidenced by pt interview | avg PO intake 60% x1d INTERVENTION: Continue with current diet order of CHO 75g/m 1snack diet. Pt may benefit from nutrition supplementation if PO intake declines. Will continue to follow and reassess as pt needs and status change. MONITOR/EVALUATE: PO Intake; Plan of Care; Hydration Status; Weight Status; Lab Values Lindsey Villanueva, MS, RD, LD"
[2019-12-31] MEDS: TAMSULOSIN 0.4 MG (FLOMAX) CAP PO SCH (17:43)
[2019-12-31] MEDS: ENOXAPARIN 40 MG/0.4 ML (LOVENOX) SYR SC SCH (17:44)
[2019-12-31] MEDS: DIAZEPAM 5 MG (VALIUM) TABLET PO PRN (17:50)
[2019-12-31 18:19] VITALS: BP 92/55
[2019-12-31 20:17] VITALS: BP 114/73
--- NOTE | 2019-12-31 20:17 | NUR ---
Pt refused Coreg this pm d/t BP 114/73 and HR 71. Cont to monitor.
[2020-01-01] MEDS: oxyCODONE/APAP 7.5-325 MG (PERCOCET 7.5) TABLET PO PRN ×3 (01:10→18:04)
[2020-01-01] MEDS: MEROPENEM 500 MG in WATER (STERILE) FOR INJECTION 10 ML IV SCH ×2 (01:11→06:32)
[2020-01-01 05:02] VITALS: BP 131/84
[2020-01-01] MEDS: inSUlin ASPART (NovoLOG) 1 UNIT/0.01 ML (CHARGE PER UNIT) SC SCH ×4 (05:54→20:51)
[2020-01-01 05:58] LABS: BASOPHILS % (AUTO) 0 % (0-10); EOSINOPHILS # (AUTO) 0.1 10^3/uL (0.0-0.3); EOSINOPHILS % (AUTO) 1 % (0-10); HEMATOCRIT 30 % (40-54); HEMOGLOBIN 9.9 G/DL (13.3-17.7); LYMPHOCYTES # (AUTO) 1.5 X 10^3 (1.0-4.0); LYMPHOCYTES % (AUTO) 21 % (12-44); MEAN CORPUSCULAR HEMOGLOBIN 27 PG (25-34); MEAN CORPUSCULAR HGB CONC 33 G/DL (32-36); MEAN CORPUSCULAR VOLUME 82 FL (80-99); MEAN PLATELET VOLUME 9.3 FL (7.4-10.4); MONOCYTES # (AUTO) 0.7 X 10^3 (0.0-1.0); MONOCYTES % (AUTO) 9 % (0-12); NEUTROPHILS % (AUTO) 69 % (42-75); PLATELET COUNT 221 10^3/uL (130-400); RED CELL DISTRIBUTION WIDTH 16.7 % (10.0-14.5); WHITE BLOOD COUNT 7.3 10^3/uL (4.3-11.0)
[2020-01-01 06:15] LABS: ALANINE AMINOTRANSFERASE 29 U/L (0-55); ALBUMIN 3.3 GM/DL (3.2-4.5); ALKALINE PHOSPHATASE 128 U/L (40-136); BILIRUBIN,TOTAL 0.5 MG/DL (0.1-1.0); BUN/CREATININE RATIO 14; CALCIUM 8.9 MG/DL (8.5-10.1); CARBON DIOXIDE 24 MMOL/L (21-32); CHLORIDE 103 MMOL/L (98-107); CREATININE SERUM 0.81 MG/DL (0.60-1.30); GFR ESTIMATED > 60; GLUCOSE 167 MG/DL (70-105); POTASSIUM 4.4 MMOL/L (3.6-5.0); SODIUM 138 MMOL/L (135-145); TOTAL PROTEIN 6.6 GM/DL (6.4-8.2)
[2020-01-01] MEDS: RT-ALBUTEROL/IPRATROPIUM 3 ML (DUONEB) VIAL INH SCH ×4 (08:01→18:17)
--- NOTE | 2020-01-01 08:19 | Cardiology Progress Note ---
Subjective Date Seen by Provider: Jan 01, 2020 Time Seen by Provider: 08:18 Subjective/Events-last exam Patient is with PT. Denies any chest pain, dyspnea, dizziness or lightheadedness. Review of Systems General: No Chills, No Night Sweats, No Fatigue, No Malaise, No Appetite, No Other HEENT: No Head Aches, No Visual Changes, No Eye Pain, No Ear Pain, No Dysphasia, No Sinus Congestion, No Post Nasal Drip, No Sore Throat, No Other Pulmonary: No Dyspnea, No Cough, No Pleuritic Chest Pain, No Other Cardiovascular: No: Chest Pain, Palpitations, Orthopnea, Paroxysmal Noc. Dyspnea, Edema, Lt Headedness, Other Objective-Cardiology Exam Last Set of Vital Signs Vital Signs 01/01/20 01/01/20 01/01/20 05:02 12:41 15:51 Temp 36.4 Pulse 68 Resp 18 B/P (MAP) 131/84 (100) Pulse Ox 92 O2 Delivery Nasal Cannula O2 Flow Rate 2.00 Capillary Refill : Less Than 3 Seconds I&O Intake and Output 01/01/20 00:00 Intake Total 1266 ml Output Total 2150 ml Balance -884 ml Intake Oral 1266 ml Output Urine Total 2150 ml # Bowel Movements 1 General: Alert, Oriented X3, Cooperative HEENT: Atraumatic, PERRLA Neck: Supple, No JVD, No Thyromegaly Lungs: Clear to Auscultation, Normal Air Movement Heart: Regular Rate, Normal S1, Normal S2, No Murmurs Abdomen: Normal Bowel Sounds, Soft, No Tenderness, No Hepatosplenomegaly, No Masses Extremities: Other (trace edema BLE) Skin: No Rashes, No Significant Lesion Neuro: Normal Speech Results Lab Laboratory Tests 01/01/20 05:35 A/P-Cardiology Admission Diagnosis CAD Acute respiratory failure CHF elevated troponin, type II PA Assessment/Plan Coronary artery disease, history of cardiac catheterization with stenting in Jul and then another cardiac catheterization with 3 stents done earlier this month, continue on aspirin and Plavix without interruption. Status post acute respiratory failure, currently back to baseline, having shortness of breath. Continue to monitor Congestive heart failure, chronic compensated left ventricular systolic dysfunction, ischemic cardiomyopathy, echocardiogram showed ejection fraction 40-45 percent which is significant improvement compared to the previous study. Maintained on beta maximo, ARB, continue to monitor. Mild elevation in troponin, probably type II PA secondary to hypoxemia and hypotension, trending down. Continue to monitor Status post C-spine surgery, recovering slowly Hyperlipidemia maintained on Lipitor Bipolar disorder, managed by primary care physician Patient was seen and evaluated with Viola, examination performed, management plan was discussed, agree with the current scribed note, I made few changes to the note using Italic font Patient is laying down in bed, comfortable, feeling better. Breathing better. Continue current medication and continue to monitor. Clinical Quality Measures DVT/VTE Risk/Contraindication: Risk Factor Score Per Nursin RFS Level Per Nursing on Admit: 4+=Very High [facility] Jan 01, 2020 08:18 ALINA GERGG MD Jan 01, 2020 16:08
--- NOTE | 2020-01-01 08:51 | Occupational Ther Daily Note ---
OT Current Status-Daily Note Subjective Pt alert in bed with in room. He stated that his fingers weren't wanting to work today, and he is always dizzy in the mornings. Pt agrees to therapy. Mental Status/Objective Patient Orientation: Person, Place, Time, Situation Attachments: Zimmerman Catheter, IV, Telemetry, Other-See Comments (PICC) ADL-Treatment Pt was mod I for supine to sit. Pt stated he has hospital bed at home. Pt performed SPT to w/c with SBA and sat on EOB to don socks with sock aid. ALMONTE set up the first sock, and pt was able to set up second sock and slightly bend to adjust socks once donned. Shaved and performed oral care mod I. Pt then propelled w/c long term to gym before tiring and being pushed the rest of the way. Participated in 15 min of UE exercise on the arm bike to increase UE strength and increase activity tolerance needed for daily tasks. Required five rest breaks, two rest breaks were examinations by HEALTHCARE MARKETER and medical student. Pt was propelled back to his room and transferred from w/c to recliner with SBA. Pt comfortable in chair with call light and tray table in reach with all needs met. Therapy Code Descriptions/Definitions Functional [place] Measure: 0=Not Assessed/NA 4=Minimal Assistance 1=Total Assistance 5=Supervision or Setup 2=Maximal Assistance 6=Modified [place] 3=Moderate Assistance 7=Complete IndependenceSCALE: Activities may be completed with or without assistive devices. 4-Afycqlvhvt-kwijgyv completes the activity by him/herself with no assistance from a helper. 5-Set-up or Clean-up Assistance-helper sets up or cleans up; patient completes activity. [place] assists only prior to or following the activity. 4-Supervision or Touching Assistance-helper provides verbal cues and/or touching/steadying and/or contact guard assistance as patient completes activi ty. Assistance may be provided throughout the activity or intermittently. 3-Partial/Moderate Assistance-helper does LESS THAN HALF the effort. [place] lifts, holds or supports trunk or limbs, but provides less than half the effort. 2-Substantial/Maximal Assistance-helper does MORE THAN HALF the effort. [place] lifts or holds trunk or limbs and provides more than half the effort. 7-Czzimcsij-jezlcy does ALL the effort. Patient does none of the effort to complete the activity. Or, the assistance of 2 or more helpers is required for the patient to complete the activity. If activity was not attempted, code reason: 7-Patient Refused. 9-Not Applicable-not attempted and the patient did not perform the activity before the current illness, exacerbation or injury. 10-Not Attempted due to Environmental Limitations-(lack of equipment, weather restraints, etc.). 88-Not Attempted due to Medical Conditions or Safety Concerns. Oral Hygiene (QC): 6 On/Off Footwear: 5 (ALMONTE set up first sock but was able to complete set up independently on the second sock.) OT Short Term Goals Short Term Goals Time Frame: Jan 09, 2020 Eatin Oral hygiene: 4 Toileting hygiene: 3 Shower/bathe self: 3 Upper body dressin Lower body dressin OT Freight And Passenger Agent Goals Usp Goals Time Frame: Jan 23, 2020 Eating (QC): 5 Oral Hygiene (QC): 5 Toileting Hygiene (QC): 4 Shower/Bathe Self (QC): 4 Upper Body Dressing (QC): 5 Lower Body Dressing (QC): 5 On/Off Footwear (QC): 5 Additional Goals: 1-Demonstrate ADL Tasks, 2-Verbalize Understanding, 3- ImproveStrength/Melva 1=Demonstrate adherence to instructed precautions during ADL tasks. 2=Patient will verbalize/demonstrate understanding of assistive devices/modifications for ADL. 3=Patient will improve strength/tolerance for activity to enable patient to perform ADL's. OT Education/Plan Problem List/Assessment Assessment: Decreased Activ Tolerance, Decreased UE Strength, Impaired Self- Care Skills, Restricted Funct UE ROM Discharge Recommendations Plan/Recommendations: Continue POC Treatment Plan/Plan of Care Patient would benefit from OT for education, treatment and training to promote independence in ADL's, mobility, safety and/or upper extremity function for ADL's. Plan of Care: ADL Retraining, Functional Mobility, Group Exercise/Act as Ind, UE Funct Exercise/Act, UE Neuromus Re-Ed/Coord Treatment Duration: Jan 23, 2020 Frequency: At least 5 of 7 days/Wk (IRF) Estimated Hrs Per Day: 1.5 hours per day Agreement: Yes Rehab Potential: Fair Time/GCodes Start Time: 07:20 Stop Time: 08:50 Total Time Billed (hr/min): 90 Billed Treatment Time 1 visit-ADL 4(65 min) EX 2(25 min) TEDDY HAWKINS Jan 01, 2020 08:51
--- NOTE | 2020-01-01 09:11 | PM&R Progress Note ---
Subjective HPI/CC On Admission Date Seen by Provider: Jan 01, 2020 Time Seen by Provider: 09:00 Subjective/Events-last exam Pt is much improved. Dayana is up and energized. Decreased pain in his neck. Las bowel movement was two days ago so he did take his laxatives. Sugars are good, doesn't even need his sliding scale insulin regimen. Meropenem will be switched to Rocephin today for an additional two days and Diflucan will be finished at the same time. Checked meds and labs Conferred with RN Reviewed therapy notes Reviewed extensive notes from [facility] Review of Systems General: Fatigue Pulmonary: Dyspnea Genitourinary: Retention Objective Exam Vital Signs Vital Signs Date Time Temp Pulse Resp B/P (MAP) Pulse Ox O2 Delivery O2 Flow Rate FiO2 01/01/20 18:17 95 Nasal Cannula 2.00 01/01/20 18:00 35.9 67 20 101/67 (78) Capillary Refill : Less Than 3 Seconds General Appearance: No Apparent Distress, WD/WN, Anxious, Chronically ill, Other (very fatigued, arrieta) HEENT: PERRL/EOMI, Normal ENT Inspection, Pharynx Normal Neck: Non Tender, Supple, Carotid Bruit, Other (limited ROM in brace) Respiratory: Chest Non Tender, Lungs Clear, No Accessory Muscle Use, No Respiratory Distress, Decreased Breath Sounds Cardiovascular: No Gallop, No JVD, No Murmur, Normal Peripheral Pulses, Tachycardia Gastrointestinal: Normal Bowel Sounds, No Organomegaly, No Pulsatile Mass, Non Tender, Soft Back: Normal Inspection, No CVA Tenderness, No Vertebral Tenderness Extremity: Normal Capillary Refill, Normal Inspection, Normal Range of Motion, Non Tender, No Calf Tenderness, Pedal Edema Neurologic/Psychiatric: Alert, Oriented x3, Normal Mood/Affect, computer engineering technologist II-XII Norm as Tested, Abnormal Gait, Depressed Affect, Motor Weakness (weakness upper and lower extremities) Skin: Normal Color, Warm/Dry Lymphatic: No Adenopathy Results/Procedures Lab Laboratory Tests 01/01/20 05:35 Patient resulted labs reviewed. FIM Transfers Therapy Code Descriptions/Definitions Functional [place] Measure: 0=Not Assessed/NA 4=Minimal Assistance 1=Total Assistance 5=Supervision or Setup 2=Maximal Assistance 6=Modified [place] 3=Moderate Assistance 7=Complete IndependenceSCALE: Activities may be completed with or without assistive devices. 3-Bcwkqegjdj-hvsfwkb completes the activity by him/herself with no assistance from a helper. 5-Set-up or Clean-up Assistance-helper sets up or cleans up; patient completes activity. [place] assists only prior to or following the activity. 4-Supervision or Touching Assistance-helper provides verbal cues and/or touching/steadying and/or contact guard assistance as patient completes activity. Assistance may be provided throughout the activity or intermittently. 3-Partial/Moderate Assistance-helper does LESS THAN HALF the effort. [place] lifts, holds or supports trunk or limbs, but provides less than half the effort. 2-Substantial/Maximal Assistance-helper does MORE THAN HALF the effort. [place] lifts or holds trunk or limbs and provides more than half the effort. 8-Jxjvxtlun-bkpuzl does ALL the effort. Patient does none of the effort to complete the activity. Or, the assistance of 2 or more helpers is required for the patient to complete the activity. If activity was not attempted, code reason: 7-Patient Refused. 9-Not Applicable-not attempted and the patient did not perform the activity before the current illness, exacerbation or injury. 10-Not Attempted due to Environmental Limitations-(lack of equipment, weather restraints, etc.). 88-Not Attempted due to Medical Conditions or Safety Concerns. Roll Left to Right (QC): 6 Sit to Lying (QC): 3 Sit to Stand (QC): 4 Chair/Ubv-sy-Ymjhf Xfer(QC): 4 Car Transfer (QC): 3 Gait Training Does the Patient Walk?: Yes Distance: 75', 30' Walk 10 feet (QC): 4 Walk 50 ft with 2 Turns(QC): 4 Walk 150 ft (QC): 88 Walking 10ft/uneven surface-QC: 88 Gait Persons Needed: 1 Gait Assistive Device: FWW Wheelchair Training Does the Pt Use a Wheelchair?: Yes Distance: 5' Wheel 50 ft with 2 turns (QC): 4 Wheel 150 ft (QC): 88 Type of Wheelchair: Manual Stair Training 1 Step (curb) (QC): 88 4 Steps (QC): 88 12 Steps (QC): 9 Balance Picking up an Object (QC): 88 ADL-Treatment Oral Hygiene (QC): 6 Shower/Bathe Self (QC): 3 Upper Body Dressing (QC): 3 (Pt able to doff night shirt with min A (buttons, cues for sequencing due to weaker L side), dons pull-over shirt with mod A (bringing shirt to axillas and bringing overhead)) Lower Body Dressing (QC): 3 (mod A- pt requires assist iwht L LE threading with breif (min A) and pants (mod A) due to levy cath. Pt able to utilize freight separator/ UE's to pull to knees over R foot. pt sit to stand x2 with SBA, completes pulling up most of way, requires min A pulling over hips.) On/Off Footwear (QC): 5 (ALMONTE set up first sock but was able to complete set up independently on the second sock.) Toileting Hygiene (QC): 3 (Pt able to reach bottom/ cleanse self, states diminished sensation in R hand to be able to discriminate where hand is placed. Pt requires mod A for thoroughness, pt's balance fair in stance.) Toilet Transfer (QC): 7 Assessment/Plan Assessment and Plan Assess & Plan/Chief Complaint Assessment: Debility Bilateral bibasilar PNA placed on Vanc and Meropenem and Diflucan and moved to ICU x 2 days h/o septic shock 08/2019 s/p central cervical spinal cord syndrome resulting in chronic debility and weakness s/p decompression per [facility] h/o UTI CAD s/p stents 12/18/19 Dr Lovelace after cardiac arrest Ischemic cardiomyopathy previous Lifevest worn Tendency for volume overload Chronic edema Bipolar disorder Urinary retention failed voiding trial at [facility] prior to admit maintained on [place] started Flomax and consulted Dr Barrientos and cysto tomorrow Plan: Home meds Appreciate cardiology and pulmonology and urology Monitor volume status Inpatient rehabilitation protocol Abx to complete Cysto today (1) Central cord syndrome (2) Spinal cord compression (3) Former smoker (4) Bipolar disorder (5) Delirium (6) Edema (7) Wheelchair bound (8) DAISY on CPAP (9) CAD (coronary artery disease) (10) CHF (congestive heart failure) (11) UTI (urinary tract infection) (12) Debility Status: Acute (13) Sacral pressure ulcer MANPREET SPENCER DO Jan 01, 2020 09:11
--- NOTE | 2020-01-01 10:05 | Physical Therapy Daily Note ---
PT Daily Note-Current Subjective Pt sitting in recliner upon arrival. Pt agrees to PT but reports needing pain med for shoulder & sacrum feels sore. Pain Numeric Pain Scale: 5-Moderate Pain Location: Right, Left Location Body Site: Shoulder Pain Description: Sharp Comment: MEDICAL RESEARCH SCIENTIST notifies Nurse of pain & uses waffle cushion while seated. Mental Status Patient Orientation: Person, Place, Situation Attachments: Zimmerman Catheter, Other-See Comments (Telemetry) Transfers SCALE: Activities may be completed with or without assistive devices. 5-Nfdxdhwucq-cwrxqqu completes the activity by him/herself with no assistance from a helper. 5-Set-up or Clean-up Assistance-helper sets up or cleans up; patient completes activity. [place] assists only prior to or following the activity. 4-Supervision or Touching Assistance-helper provides verbal cues and/or touching/steadying and/or contact guard assistance as patient completes activity. Assistance may be provided throughout the activity or intermittently. 3-Partial/Moderate Assistance-helper does LESS THAN HALF the effort. [place] lifts, holds or supports trunk or limbs, but provides less than half the effort. 2-Substantial/Maximal Assistance-helper does MORE THAN HALF the effort. [place] lifts or holds trunk or limbs and provides more than half the effort. 9-Itkpyoywc-kfcrxt does ALL the effort. Patient does none of the effort to complete the activity. Or, the assistance of 2 or more helpers is required for the patient to complete the activity. If activity was not attempted, code reason: 7-Patient Refused. 9-Not Applicable-not attempted and the patient did not perform the activity before the current illness, exacerbation or injury. 10-Not Attempted due to Environmental Limitations-(lack of equipment, weather restraints, etc.). 88-Not Attempted due to Medical Conditions or Safety Concerns. Sit to Stand (QC): 4 Weight Bearing Right Lower Extremity: Right Full Weight Bearing Left Lower Extremity: Left Full Weight Bearing Gait Training Does the Patient Walk?: Yes Distance: 75' Walk 10 feet (QC): 4 Walk 50 ft with 2 Turns(QC): 4 Gait Persons Needed: 1 Gait Assistive Device: FWW Pt walks with slow but steady lorelei. Pt needs VC to stay closer to FWW when ambulating. Wheelchair Training Does the Pt Use a Wheelchair?: Yes Wheel 50 ft with 2 turns (QC): 75 Wheel 150 ft (QC): 5 Type of Wheelchair: Manual Exercises Seated Therapy Exercises: Ankle pumps, Long arc quads, Hip flexion, Kicking activity, Hip abd/add Seated Reps: 15 NuStep Minutes: 8 NuStep Workload: 5 Treatments Pt transfers from recliner to standing then ambulates in hallway. Pt uses NuStep for 8m at WL 5 before needing RB. Pt transfers to W/C & completes Seated EX. Pt propels WCH in hallway to room. Pt transfers to Supine in bed to rest as pt will be having procedure in room shortly. Nurses arrive for procedure at end of Rx, pt has all needs met. Assessment Current Status: Fair Progress Pt fatigues quicker today. Pt reports feeling tired and pain in shoulders. PT Correction Goals Molded Grid And Parts Inspector Goals PT Correction Goals Time Frame: Jan 24, 2020 Roll Left & Right (QC): 5 Sit to Lying (QC): 5 Lying-Sitting on Side/Bed(QC): 5 Sit to Stand (QC): 5 Chair/Kpo-bh-Xewya Xfer(QC): 5 Toilet Transfer (QC): 5 Car Transfer (QC): 5 Does the Patient Walk: Yes Walk 10 feet (QC): 5 Walk 50ft with 2 Turns (QC): 5 Walk 150 ft (QC): 5 Walking 10ft on Uneven Surface: 5 1 Step (curb) (QC): 5 4 Steps (QC): 5 12 Steps (QC): 9 Picking up an Object (QC): 5 Type: N/A Type: N/A PT Plan Problem List Problem List: Activity Tolerance, Functional Strength, Safety, Balance, Gait, Transfer Treatment/Plan Treatment Plan: Continue Plan of Care Treatment Plan: Bed Mobility, Concurrent Therapy, Education, Functional Activity Melva, Functional Strength, Group Therapy, Gait, Safety, Therapeutic Exercise, Transfers Treatment Duration: Jan 24, 2020 Frequency: At least 5 of 7 days/Wk (IRF) Estimated Hrs Per Day: 1.5 hours per day Patient and/or Family Agrees t: Yes Safety Risks/Education Patient Education: Gait Training, Transfer Techniques, Correct Positioning, W/C Management, Safety Issues Teaching Recipient: Patient Teaching Methods: Discussion Response to Teaching: Verbalize Understanding Time/GCodes Time In: 900 Time Out: 1000 Total Billed Treatment Time: 60 Total Billed Treatment 1, GT (20m), EX x2 (25m) & WCH (15m) YOLETTE BALLARD MEDICAL RESEARCH SCIENTIST Jan 01, 2020 10:05
--- NOTE | 2020-01-01 10:12 | Progress Note ---
JARRELL TAVARES, MEDICAL STUDENT 01/01/20 1012: Progress Note Hospital course: Pt had a short observation hospital course when he had some low BP, and oxygen level in addition to low heart rate, requiring ICU admission along with Dr. Rodriguez's recommendation. He was monitored closely and placed on broad-spectrum Meropenem and Vancomycin for presumed facility-acquired pneumonia. He did have an elevated troponin, it was assessed to be a type II NSTEMI, and Noemi Frazier was consulted. Overall Pt stabilized, was able to be discharged back into inpatient rehab to continue his rehab course. Patient is doing well and has been working with rehab Planning for Cystoscopy today Patient able to eat full meal yesterday Continuing incentive spirometry General Appearance: No Apparent Distress, WD/WN, Anxious, Chronically ill, Other (very fatigued, arrieta) Neck: Non Tender, Supple, Carotid Bruit, Other (limited ROM in brace) Respiratory: Chest Non Tender, Lungs Clear, No Accessory Muscle Use, No Respiratory Distress, Decreased Breath Sounds Cardiovascular: No Gallop, No JVD, No Murmur, Normal Peripheral Pulses, Tachycardia Gastrointestinal: Normal Bowel Sounds, No Organomegaly, No Pulsatile Mass, Non Tender, Soft Back: Normal Inspection, No CVA Tenderness, No Vertebral Tenderness Extremity: Normal Capillary Refill, Normal Inspection, Normal Range of Motion, Non Tender, No Calf Tenderness, Pedal Edema Skin: Normal Color, Warm/Dry Lymphatic: No Adenopathy Assessment/Plan Assessment and Plan Assess & Plan/Chief Complaint Assessment: Debility Bilateral bibasilar PNA placed on Vanc and Meropenem and Diflucan and moved to ICU x 2 days h/o septic shock 08/2019 s/p central cervical spinal cord syndrome resulting in chronic debility and weakness s/p decompression per [facility] h/o UTI CAD s/p stents 12/18/19 Dr Lovelace after cardiac arrest Ischemic cardiomyopathy previous Lifevest worn Tendency for volume overload Chronic edema Bipolar disorder Urinary retention failed voiding trial at [place] prior to admit maintained on Zimmerman started Flomax and consulted Dr Barrientos Plan: Home meds Appreciate cardiology and pulmonology and urology Monitor volume status Inpatient rehabilitation protocol Abx to complete - switch to Rocephin per Pharmacist Cystoscopy today per Urology AMANDA SPENCER DO 01/01/20 2009: Supervisory-Addendum Brief Verification & Attestation Participated in pt care: history, MDM, physical Personally performed: exam, history, MDM, supervision of care Care discussed with: Medical Student Procedures: n/a Results interpretation: Verified all documentation Verification and Attestation of Medical Student E/M Service A medical student performed and documented this service in my presence. I reviewed and verified all information documented by the medical student and made modifications to such information, when appropriate. I personally performed the physical exam and medical decision making. Amanda Spencer, Jan 01, 2020,20:08 JARRELL TAVARES, MEDICAL STUDENT Jan 01, 2020 10:12 AMANDA SPENCER DO Jan 01, 2020 20:09
[2020-01-01] MEDS: VRAYLAR 1.5 MG CAPSULE PO SCH (11:16)
[2020-01-01] MEDS: SENNA W/DOCUSATE (SENOKOT S) TABLET PO SCH ×2 (11:16→20:08)
[2020-01-01] MEDS: LOSARTAN 25 MG (COZAAR) TAB PO SCH (11:16)
[2020-01-01] MEDS: PANTOPRAZOLE 40 MG (PROTONIX) TAB PO SCH (11:16)
[2020-01-01] MEDS: CLOPIDOGREL 75 MG (PLAVIX) TABLET PO SCH (11:17)
[2020-01-01] MEDS: SERTRALINE 100 MG (ZOLOFT) TAB PO SCH (11:18)
[2020-01-01] MEDS: CARVEDILOL 6.25 MG (COREG) TAB PO SCH ×2 (11:18→20:12)
[2020-01-01] MEDS: ASPIRIN 81 MG CHEW (CHILDREN'S ASA) PO SCH (11:18)
[2020-01-01] MEDS: PREGABALIN 150 MG (LYRICA) CAPSULE PO SCH ×2 (11:19→20:12)
[2020-01-01] MEDS: DIVALPROEX 500 MG DELAYED RELEASE (DEPAKOTE) TAB PO SCH ×2 (11:19→20:12)
[2020-01-01] MEDS: rOPINIRole 0.25 MG (REQUIP) TAB PO SCH (11:24)
[2020-01-01] MEDS: AMIODARONE 200 MG (CORDARONE) TAB PO SCH ×2 (11:29→20:12)
[2020-01-01] MEDS: polyethylene glycoL POWDER 17 GM (MIRALAX) PACK PO SCH ×2 (11:50→20:08)
[2020-01-01] MEDS: cefTRIAXone 2,000 MG/SWFI 20 ML IV PUSH IV SCH ×2 (13:16)
--- NOTE | 2020-01-01 13:35 | NUR ---
CM/SS ADMISSION completed 12/31/19 WEEKLY TEAM CONFERENCE SUMMARY 01/01/20 Patient was admitted to ARU 12/26/19 and transferred to ICU 12/28/19 due to change in condition. He returned to ARU from his Leave Of Absence 12/30/19. His ARU admission diagnosis is Spinal Cord Dysfunction and he is post op with hard brace. Medically complex with cardiac arrest, CPR, code blue with code approx 45 minutes, and cardiac stenting 12/18/19. Prior to hospitalization, patient resided at home with his spouse, Gladys Cornejo. He was essentially wheelchair bound because of his central cord syndrome. He is currently participating in therapy to regain ambulatory status but does self propel in wheelchair. His goal is return to home as before at a maximum level of independence to relieve burden on caregiver spouse. DME: Established with CPAP, FWW, Rollator, Wheelchair. New home equipment needs to be determined by ARU team. PCP: Elizabeth Granados ARNP PHARMACY: [facility] ADVANCED DIRECTIVE: Patient states his Gladys is his agent, DPOA. INSURED: [facility] CONTACTS: Gladys Cornejo, spouse [phone] Ester Mayorga, [place] [address] Patient states he has 3 children. In addition to Adriana Norman and [place], in or near [facility]. Met with patient and spouse this date to review Summary, they read document thoroughly prior to signature. Gladys mentioned concern about patient's diet status due to signs of choking. Updated RN and Speech Therapy staff forester contacted physician, diet changed to mechanical soft. Patient/spouse in agreement to continued stay on ARU with review next week. She is pursuing [employer] benefits regarding her senior sales representative job at a [employer] in [place]. She will be the one to provide care in the home if patient requires 04/06.
--- NOTE | 2020-01-01 13:39 | Physical Therapy Daily Note ---
PT Daily Note-Current Subjective Pt laying Supine in bed upon arrival. Nurse asks for assistance in placing funmilayo pads under pt for easier moving up in bed. Pt agrees to Supine Ex in bed for Rx. Pain Numeric Pain Scale: 8 Location: Right, Left Location Body Site: Shoulder Pain Description: Sharp Mental Status Patient Orientation: Person, Place, Situation Attachments: Other-See Comments (Cervical Collar) Transfers SCALE: Activities may be completed with or without assistive devices. 1-Uiwziflvyi-sizngxf completes the activity by him/herself with no assistance from a helper. 5-Set-up or Clean-up Assistance-helper sets up or cleans up; patient completes activity. [place] assists only prior to or following the activity. 4-Supervision or Touching Assistance-helper provides verbal cues and/or touching/steadying and/or contact guard assistance as patient completes activity. Assistance may be provided throughout the activity or intermittently. 3-Partial/Moderate Assistance-helper does LESS THAN HALF the effort. [place] lifts, holds or supports trunk or limbs, but provides less than half the effort. 2-Substantial/Maximal Assistance-helper does MORE THAN HALF the effort. [place] lifts or holds trunk or limbs and provides more than half the effort. 7-Wxpwmream-ctqilr does ALL the effort. Patient does none of the effort to complete the activity. Or, the assistance of 2 or more helpers is required for the patient to complete the activity. If activity was not attempted, code reason: 7-Patient Refused. 9-Not Applicable-not attempted and the patient did not perform the activity before the current illness, exacerbation or injury. 10-Not Attempted due to Environmental Limitations-(lack of equipment, weather restraints, etc.). 88-Not Attempted due to Medical Conditions or Safety Concerns. Weight Bearing Right Lower Extremity: Right Full Weight Bearing Left Lower Extremity: Left Full Weight Bearing Exercises Supine Ex: Ankle pumps, Quad Set, Glut sets, Heel Slides, Straight leg raise, Hip abd/add Supine Reps: 15 Treatments Nurse & REPEAT CHIEF assist pt in rolling to place funmilayo pad under pt. Pt completes Supine Ex in bed. Pt resting at end of Rx with Nurse & Sp present & SW arrives. Pt has all needs met, call light next to pt. Assessment Current Status: Fair Progress Pt fatigued most of today and especially after in room procedure. PT Gamma Operator Goals Gamma Operator Goals PT Longterm Goals Time Frame: Jan 24, 2020 Roll Left & Right (QC): 5 Sit to Lying (QC): 5 Lying-Sitting on Side/Bed(QC): 5 Sit to Stand (QC): 5 Chair/Ynw-sj-Kmcbx Xfer(QC): 5 Toilet Transfer (QC): 5 Car Transfer (QC): 5 Does the Patient Walk: Yes Walk 10 feet (QC): 5 Walk 50ft with 2 Turns (QC): 5 Walk 150 ft (QC): 5 Walking 10ft on Uneven Surface: 5 1 Step (curb) (QC): 5 4 Steps (QC): 5 12 Steps (QC): 9 Picking up an Object (QC): 5 Type: N/A Type: N/A PT Plan Problem List Problem List: Activity Tolerance, Functional Strength Treatment/Plan Treatment Plan: Continue Plan of Care Treatment Plan: Bed Mobility, Concurrent Therapy, Education, Functional Activity Melva, Functional Strength, Group Therapy, Gait, Safety, Therapeutic Exercise, Transfers Treatment Duration: Jan 24, 2020 Frequency: At least 5 of 7 days/Wk (IRF) Estimated Hrs Per Day: 1.5 hours per day Patient and/or Family Agrees t: Yes Safety Risks/Education Patient Education: Correct Positioning, Safety Issues Teaching Recipient: Patient, Significant Other Teaching Methods: Discussion Response to Teaching: Verbalize Understanding Time/GCodes Time In: 1300 Time Out: 1330 Total Billed Treatment Time: 30 Total Billed Treatment 1, EX x2 (30m) YOLETTE BALLARD REPEAT CHIEF Jan 01, 2020 13:39
[2020-01-01] MEDS: CYCLOBENZAPRINE 10 MG (FLEXERIL) TAB PO PRN (14:00)
[2020-01-01] MEDS: ENOXAPARIN 40 MG/0.4 ML (LOVENOX) SYR SC SCH (16:35)
[2020-01-01 18:00] VITALS: BP 101/67
[2020-01-01] MEDS: TAMSULOSIN 0.4 MG (FLOMAX) CAP PO SCH (18:00)
[2020-01-01] MEDS: DIAZEPAM 5 MG (VALIUM) TABLET PO PRN (20:15)
[2020-01-02] MEDS: oxyCODONE/APAP 7.5-325 MG (PERCOCET 7.5) TABLET PO PRN ×4 (01:32→18:31)
[2020-01-02 05:15] VITALS: BP 100/68
[2020-01-02] MEDS: inSUlin ASPART (NovoLOG) 1 UNIT/0.01 ML (CHARGE PER UNIT) SC SCH ×4 (05:55→21:15)
[2020-01-02] MEDS: RT-ALBUTEROL/IPRATROPIUM 3 ML (DUONEB) VIAL INH SCH ×5 (06:30→20:11)
--- NOTE | 2020-01-02 07:09 | Progress Note - Urology ---
Progress Note-Urology Progress Notes/Assess & Plan Progress/Assessment & Plan VOIDING WELL, EMPTIES WELL, KEEP SAME PLAN Final Diagnosis URINE RETENTION MORGAN CORREA MD Jan 02, 2020 07:09
[2020-01-02] MEDS: AMIODARONE 200 MG (CORDARONE) TAB PO SCH ×2 (08:49→21:07)
[2020-01-02] MEDS: ASPIRIN 81 MG CHEW (CHILDREN'S ASA) PO SCH (08:49)
[2020-01-02] MEDS: PANTOPRAZOLE 40 MG (PROTONIX) TAB PO SCH (08:49)
[2020-01-02] MEDS: SERTRALINE 100 MG (ZOLOFT) TAB PO SCH (08:49)
[2020-01-02] MEDS: rOPINIRole 0.25 MG (REQUIP) TAB PO SCH (08:50)
[2020-01-02] MEDS: PREGABALIN 150 MG (LYRICA) CAPSULE PO SCH ×2 (08:50→21:07)
[2020-01-02] MEDS: fluCOnazole (DIFLUCAN) 100 MG TAB PO SCH (08:51)
[2020-01-02] MEDS: SENNA W/DOCUSATE (SENOKOT S) TABLET PO SCH ×2 (08:52→21:31)
[2020-01-02] MEDS: DIVALPROEX 500 MG DELAYED RELEASE (DEPAKOTE) TAB PO SCH ×2 (08:52→21:07)
[2020-01-02] MEDS: polyethylene glycoL POWDER 17 GM (MIRALAX) PACK PO SCH ×2 (08:54→21:34)
[2020-01-02] MEDS: VRAYLAR 1.5 MG CAPSULE PO SCH (08:54)
[2020-01-02 08:59] VITALS: BP 86/62
[2020-01-02 09:02] VITALS: BP 101/70
[2020-01-02] MEDS: CLOPIDOGREL 75 MG (PLAVIX) TABLET PO SCH (09:09)
--- NOTE | 2020-01-02 09:38 | Occupational Ther Daily Note ---
OT Current Status-Daily Note Subjective Pt sitting in chair, agrees to therapy. Pt reports 8/10 pain in neck and shoulders. RN notified, and provided pain medication. ADL-Treatment Pt requests shower this morning. Sit to stand with supervision. Gait to restroom with FWW. Transfer to walk in shower with min assist for safety using grab bars for balance. Doffed shirt with assist to ear pull machine operator head, then able to pull off arms. Pt required assist to pull pants down over hips, but then uses dressing stick to doff over feet. Pt doffed socks with verbal cues using dressing stick. Seated bathing completed using hand held shower and long handled sponge. Pt able to wash bilateral UE, chest, abdomen, [place] area, and bilateral upper legs. Requires assist for bilateral lower legs/feet and buttocks. Don button up shirt with assist to thread UE and pull around back. Assist to manipulate buttons. Pt attempted to use talent acquisition lead to thread bilateral LE into Depends and pants, but requires assist to complete task. Stood with CGA for balance, requires assist to complete pant hike. Pt has difficulty placing sock on sock aid secondary to decreased coordination, but after assist pt was able to pull socks on with sock aid using bilateral UE. Pt declined oral care this morning. Assist required to comb hair. Pt transferred to chair with FWW. Therapy Code Descriptions/Definitions Functional [place] Measure: 0=Not Assessed/NA 4=Minimal Assistance 1=Total Assistance 5=Supervision or Setup 2=Maximal Assistance 6=Modified [place] 3=Moderate Assistance 7=Complete IndependenceSCALE: Activities may be completed with or without assistive devices. 5-Fxubepqbwr-mlzhnea completes the activity by him/herself with no assistance from a helper. 5-Set-up or Clean-up Assistance-helper sets up or cleans up; patient completes activity. [place] assists only prior to or following the activity. 4-Supervision or Touching Assistance-helper provides verbal cues and/or touching/steadying and/or contact guard assistance as patient completes activity. Assistance may be provided throughout the activity or intermittently. 3-Partial/Moderate Assistance-helper does LESS THAN HALF the effort. [place] lifts, holds or supports trunk or limbs, but provides less than half the effort. 2-Substantial/Maximal Assistance-helper does MORE THAN HALF the effort. [place] lifts or holds trunk or limbs and provides more than half the effort. 9-Rlybshaas-qjansi does ALL the effort. Patient does none of the effort to complete the activity. Or, the assistance of 2 or more helpers is required for the patient to complete the activity. If activity was not attempted, code reason: 7-Patient Refused. 9-Not Applicable-not attempted and the patient did not perform the activity before the current illness, exacerbation or injury. 10-Not Attempted due to Environmental Limitations-(lack of equipment, weather restraints, etc.). 88-Not Attempted due to Medical Conditions or Safety Concerns. Oral Hygiene (QC): 7 Shower/Bathe Self (QC): 3 Upper Body Dressing (QC): 2 Lower Body Dressing (QC): 2 On/Off Footwear: 3 Other Treatment Pt completed resistance peg activity with bilateral UE to increase coordination/manipulation skills for functional tasks. Pt requires increased time to complete activity. Pt completed putty activity with bilateral hands to increase strength and manipulation skills. Pt able to remove a few small beads from mild resistance putty and then completed bilateral hand squeezes to increase strength. Pt sitting in chair with needs met after session. Education OT Patient Education: Modified ADL techniques Teaching Recipient: Patient Teaching Methods: Demonstration, Discussion Response to Teaching: Verbalize Understanding OT Short Term Goals Short Term Goals Time Frame: Jan 09, 2020 Eatin Oral hygiene: 4 Toileting hygiene: 3 Shower/bathe self: 3 Upper body dressin Lower body dressin OT [facility] Goals Assistant Scientist Goals Time Frame: Jan 23, 2020 Eating (QC): 5 Oral Hygiene (QC): 5 Toileting Hygiene (QC): 4 Shower/Bathe Self (QC): 4 Upper Body Dressing (QC): 5 Lower Body Dressing (QC): 5 On/Off Footwear (QC): 5 Additional Goals: 1-Demonstrate ADL Tasks, 2-Verbalize Understanding, 3- ImproveStrength/Melva 1=Demonstrate adherence to instructed precautions during ADL tasks. 2=Patient will verbalize/demonstrate understanding of assistive devices/modifications for ADL. 3=Patient will improve strength/tolerance for activity to enable patient to perform ADL's. OT Education/Plan Discharge Recommendations Plan/Recommendations: Continue POC Treatment Plan/Plan of Care Patient would benefit from OT for education, treatment and training to promote independence in ADL's, mobility, safety and/or upper extremity function for ADL's. Plan of Care: ADL Retraining, Functional Mobility, Group Exercise/Act as Ind, UE Funct Exercise/Act, UE Neuromus Re-Ed/Coord Treatment Duration: Jan 23, 2020 Frequency: At least 5 of 7 days/Wk (IRF) Estimated Hrs Per Day: 1.5 hours per day Agreement: Yes Rehab Potential: Fair Time/GCodes Start Time: 08:00 Stop Time: 09:30 Total Time Billed (hr/min): 90 Billed Treatment Time 1 visit, ADLx5(70minutes), FA(20minutes) VISHNU ROSALES OT Jan 02, 2020 09:38
--- NOTE | 2020-01-02 09:42 | PM&R Progress Note ---
Subjective HPI/CC On Admission Date Seen by Provider: Jan 02, 2020 Time Seen by Provider: 09:45 Subjective/Events-last exam Pt is much improved. Pain improved Decreased pain in his neck. BM+ Sugars are good, doesn't even need his sliding scale insulin regimen. Abx completed Checked meds and labs DC Levy and PVR is minimal Conferred with RN Reviewed therapy notes Reviewed extensive notes from [facility] Review of Systems General: Fatigue Musculoskeletal: neck pain Objective Exam Vital Signs Vital Signs Date Time Temp Pulse Resp B/P (MAP) Pulse Ox O2 Delivery O2 Flow Rate FiO2 01/03/20 12:22 69 01/03/20 11:30 92 Room Air 01/03/20 08:32 118/86 (97) 01/03/20 05:21 36.3 20 01/01/20 20:30 2.00 Capillary Refill : Less Than 3 Seconds General Appearance: No Apparent Distress, WD/WN, Anxious, Chronically ill, Other (very fatigued, [place]) HEENT: PERRL/EOMI, Normal ENT Inspection, Pharynx Normal Neck: Non Tender, Supple, Carotid Bruit, Other (limited ROM in brace) Respiratory: Chest Non Tender, Lungs Clear, No Accessory Muscle Use, No Respiratory Distress, Decreased Breath Sounds Cardiovascular: No Gallop, No JVD, No Murmur, Normal Peripheral Pulses, Tachycardia Gastrointestinal: Normal Bowel Sounds, No Organomegaly, No Pulsatile Mass, Non Tender, Soft Back: Normal Inspection, No CVA Tenderness, No Vertebral Tenderness Extremity: Normal Capillary Refill, Normal Inspection, Normal Range of Motion, Non Tender, No Calf Tenderness, Pedal Edema Neurologic/Psychiatric: Alert, Oriented x3, Normal Mood/Affect, accountant budget II-XII Norm as Tested, Abnormal Gait, Depressed Affect, Motor Weakness (weakness upper and lower extremities) Skin: Normal Color, Warm/Dry Lymphatic: No Adenopathy Results/Procedures Lab Patient resulted labs reviewed. FIM Transfers Therapy Code Descriptions/Definitions Functional [place] Measure: 0=Not Assessed/NA 4=Minimal Assistance 1=Total Assistance 5=Supervision or Setup 2=Maximal Assistance 6=Modified [place] 3=Moderate Assistance 7=Complete IndependenceSCALE: Activities may be completed with or without assistive devices. 0-Iqndgoryvi-qigcbhp completes the activity by him/herself with no assistance from a helper. 5-Set-up or Clean-up Assistance-helper sets up or cleans up; patient completes activity. [place] assists only prior to or following the activity. 4-Supervision or Touching Assistance-helper provides verbal cues and/or touching/steadying and/or contact guard assistance as patient completes activity. Assistance may be provided throughout the activity or intermittently. 3-Partial/Moderate Assistance-helper does LESS THAN HALF the effort. [place] lifts, holds or supports trunk or limbs, but provides less than half the effort. 2-Substantial/Maximal Assistance-helper does MORE THAN HALF the effort. [place] lifts or holds trunk or limbs and provides more than half the effort. 4-Wzunstlop-acxqlh does ALL the effort. Patient does none of the effort to complete the activity. Or, the assistance of 2 or more helpers is required for the patient to complete the activity. If activity was not attempted, code reason: 7-Patient Refused. 9-Not Applicable-not attempted and the patient did not perform the activity before the current illness, exacerbation or injury. 10-Not Attempted due to Environmental Limitations-(lack of equipment, weather restraints, etc.). 88-Not Attempted due to Medical Conditions or Safety Concerns. Roll Left to Right (QC): 6 Sit to Lying (QC): 3 Sit to Stand (QC): 4 Chair/Jko-xu-Jdyhu Xfer(QC): 4 Car Transfer (QC): 3 Gait Training Does the Patient Walk?: Yes Distance: 75' Walk 10 feet (QC): 4 Walk 50 ft with 2 Turns(QC): 4 Walk 150 ft (QC): 88 Walking 10ft/uneven surface-QC: 88 Gait Persons Needed: 1 Gait Assistive Device: FWW Wheelchair Training Does the Pt Use a Wheelchair?: Yes Distance: 5' Wheel 50 ft with 2 turns (QC): 75 Wheel 150 ft (QC): 5 Type of Wheelchair: Manual Stair Training 1 Step (curb) (QC): 88 4 Steps (QC): 88 12 Steps (QC): 9 Balance Picking up an Object (QC): 88 ADL-Treatment Oral Hygiene (QC): 6 Shower/Bathe Self (QC): 3 Upper Body Dressing (QC): 3 (Pt able to doff night shirt with min A (buttons, cues for sequencing due to weaker L side), dons pull-over shirt with mod A (bringing shirt to axillas and bringing overhead)) Lower Body Dressing (QC): 3 (mod A- pt requires assist iwht L LE threading with breif (min A) and pants (mod A) due to levy cath. Pt able to utilize loan interviewer/ UE's to pull to knees over R foot. pt sit to stand x2 with SBA, completes pulling up most of way, requires min A pulling over hips.) On/Off Footwear (QC): 5 (ALMONTE set up first sock but was able to complete set up independently on the second sock.) Toileting Hygiene (QC): 3 (Pt able to reach bottom/ cleanse self, states diminished sensation in R hand to be able to discriminate where hand is placed. Pt requires mod A for thoroughness, pt's balance fair in stance.) Toilet Transfer (QC): 7 Assessment/Plan Assessment and Plan Assess & Plan/Chief Complaint Assessment: Debility Bilateral bibasilar PNA placed on Vanc and Meropenem and Diflucan and moved to ICU x 2 days now DC abx since completed and doing well h/o septic shock 08/2019 s/p central cervical spinal cord syndrome resulting in chronic debility and weakness s/p decompression per [facility] NSG h/o UTI CAD s/p stents 12/18/19 Dr Lovelace after cardiac arrest Ischemic cardiomyopathy previous Lifevest worn Tendency for volume overload Chronic edema Bipolar disorder Urinary retention sp Levy DC after cysto normal Plan: Home meds Appreciate cardiology and pulmonology and urology Monitor volume status Inpatient rehabilitation protocol Abx completed Dr Barrientos appreciated (1) Central cord syndrome (2) Spinal cord compression (3) Former smoker (4) Bipolar disorder (5) Delirium (6) Edema (7) Wheelchair bound (8) DAISY on CPAP (9) CAD (coronary artery disease) (10) CHF (congestive heart failure) (11) UTI (urinary tract infection) (12) Debility Status: Acute (13) Sacral pressure ulcer MANPREET SPENCER DO Jan 02, 2020 09:42
--- NOTE | 2020-01-02 10:08 | NUR ---
Pastoral care visit.
--- NOTE | 2020-01-02 10:55 | Physical Therapy Daily Note ---
PT Daily Note-Current Subjective Patient in recliner pre tx, agrees to PT, has 6/10 pain in neck, shoulders, and back. Appearance Patient in bed post tx, with nurse call, phone, tray, all needs met. Mental Status Patient Orientation: Normal For Age cervical collar Transfers SCALE: Activities may be completed with or without assistive devices. 8-Glxjjrnalr-gnsiiih completes the activity by him/herself with no assistance from a helper. 5-Set-up or Clean-up Assistance-helper sets up or cleans up; patient completes activity. [place] assists only prior to or following the activity. 4-Supervision or Touching Assistance-helper provides verbal cues and/or touching/steadying and/or contact guard assistance as patient completes activity. Assistance may be provided throughout the activity or intermittently. 3-Partial/Moderate Assistance-helper does LESS THAN HALF the effort. [place] lifts, holds or supports trunk or limbs, but provides less than half the effort. 2-Substantial/Maximal Assistance-helper does MORE THAN HALF the effort. [place] lifts or holds trunk or limbs and provides more than half the effort. 1-Nruqskldd-flpfkz does ALL the effort. Patient does none of the effort to complete the activity. Or, the assistance of 2 or more helpers is required for the patient to complete the activity. If activity was not attempted, code reason: 7-Patient Refused. 9-Not Applicable-not attempted and the patient did not perform the activity before the current illness, exacerbation or injury. 10-Not Attempted due to Environmental Limitations-(lack of equipment, weather restraints, etc.). 88-Not Attempted due to Medical Conditions or Safety Concerns. Roll Left & Right (QC): 4 Sit to Lying (QC): 4 Sit to Stand (QC): 4 Chair/Ttf-ps-Jlbjz Xfer(QC): 4 Max assist to scoot up in bed. Occasional cues for hand placement. Weight Bearing Right Lower Extremity: Right Full Weight Bearing Left Lower Extremity: Left Full Weight Bearing Gait Training Distance: 60'x4 Walk 10 feet (QC): 4 Walk 50 ft with 2 Turns(QC): 4 Gait Assistive Device: FWW SBA, slow, tends to keep walker too far in front Exercises Standing: Hip Abduction, Heel/toe raises, Mini squats Standing Reps: 15 LAQ alternating for 5 min NuStep Minutes: 15 NuStep Workload: 4 Treatments bed mobility and transfers, ambulation, functional strengthening Assessment Current Status: Fair Progress improving general mobility, needs frequent rest breaks PT Manufacturing Engineer Automotive Goals Senior Living Goals PT Manufacturing Engineer Automotive Goals Time Frame: Jan 24, 2020 Roll Left & Right (QC): 5 Sit to Lying (QC): 5 Lying-Sitting on Side/Bed(QC): 5 Sit to Stand (QC): 5 Chair/Xcl-qt-Keoxv Xfer(QC): 5 Toilet Transfer (QC): 5 Car Transfer (QC): 5 Does the Patient Walk: Yes Walk 10 feet (QC): 5 Walk 50ft with 2 Turns (QC): 5 Walk 150 ft (QC): 5 Walking 10ft on Uneven Surface: 5 1 Step (curb) (QC): 5 4 Steps (QC): 5 12 Steps (QC): 9 Picking up an Object (QC): 5 Type: N/A Type: N/A PT Plan Problem List Problem List: Activity Tolerance, Functional Strength, Safety, Balance, Gait, Transfer, Bed Mobility, ROM Treatment/Plan Treatment Plan: Continue Plan of Care Treatment Plan: Bed Mobility, Concurrent Therapy, Education, Functional Activity Melva, Functional Strength, Group Therapy, Gait, Safety, Therapeutic Exercise, Transfers Treatment Duration: Jan 24, 2020 Frequency: At least 5 of 7 days/Wk (IRF) Estimated Hrs Per Day: 1.5 hours per day Patient and/or Family Agrees t: Yes Safety Risks/Education Patient Education: Gait Training, Transfer Techniques, Correct Positioning, Safety Issues Teaching Recipient: Patient Teaching Methods: Demonstration, Discussion Response to Teaching: Reinforcement Needed Time/GCodes Time In: 1000 Time Out: 1100 Total Billed Treatment Time: 60 Total Billed Treatment 1 visit EX 30' GT 30' LEOBARDO HUBBARD PT Jan 02, 2020 10:55
[2020-01-02 11:15] VITALS: BP 118/78
[2020-01-02] MEDS: DIAZEPAM 5 MG (VALIUM) TABLET PO PRN ×2 (11:22→21:07)
[2020-01-02] MEDS: cefTRIAXone 2,000 MG/SWFI 20 ML IV PUSH IV SCH ×2 (11:37)
--- NOTE | 2020-01-02 13:21 | Physical Therapy Daily Note ---
PT Daily Note-Current Subjective Patient in recliner pre tx, agrees to PT, has 7/10 and would like pain meds, nurse notified. Appearance Patient in bed post tx with nurse call, phone, tray, all needs met. Mental Status Patient Orientation: Normal For Age cervical collar Transfers SCALE: Activities may be completed with or without assistive devices. 7-Gemfbzntya-sguunti completes the activity by him/herself with no assistance from a helper. 5-Set-up or Clean-up Assistance-helper sets up or cleans up; patient completes activity. [place] assists only prior to or following the activity. 4-Supervision or Touching Assistance-helper provides verbal cues and/or touching/steadying and/or contact guard assistance as patient completes activity. Assistance may be provided throughout the activity or intermittently. 3-Partial/Moderate Assistance-helper does LESS THAN HALF the effort. [place] lifts, holds or supports trunk or limbs, but provides less than half the effort. 2-Substantial/Maximal Assistance-helper does MORE THAN HALF the effort. [place] lifts or holds trunk or limbs and provides more than half the effort. 2-Dymrnwpix-nurzot does ALL the effort. Patient does none of the effort to complete the activity. Or, the assistance of 2 or more helpers is required for the patient to complete the activity. If activity was not attempted, code reason: 7-Patient Refused. 9-Not Applicable-not attempted and the patient did not perform the activity before the current illness, exacerbation or injury. 10-Not Attempted due to Environmental Limitations-(lack of equipment, weather restraints, etc.). 88-Not Attempted due to Medical Conditions or Safety Concerns. Roll Left & Right (QC): 6 Sit to Lying (QC): 6 Sit to Stand (QC): 4 Chair/Ygy-ew-Jbwak Xfer(QC): 4 Weight Bearing Right Lower Extremity: Right Full Weight Bearing Left Lower Extremity: Left Full Weight Bearing Gait Training Distance: 60'x2, 120' Walk 10 feet (QC): 4 Walk 50 ft with 2 Turns(QC): 4 Gait Assistive Device: FWW Slow ambulation, slumped posture, tends to keep walker too far in front. Treatments bed mobility and transfers, ambulation Assessment Current Status: Fair Progress has unsteady moments with ambulation, cues for safety PT Ultrasonic Solderer Goals Ultrasonic [place] Goals PT Assisted Goals Time Frame: Jan 24, 2020 Roll Left & Right (QC): 5 Sit to Lying (QC): 5 Lying-Sitting on Side/Bed(QC): 5 Sit to Stand (QC): 5 Chair/Mqy-fe-Zqdqk Xfer(QC): 5 Toilet Transfer (QC): 5 Car Transfer (QC): 5 Does the Patient Walk: Yes Walk 10 feet (QC): 5 Walk 50ft with 2 Turns (QC): 5 Walk 150 ft (QC): 5 Walking 10ft on Uneven Surface: 5 1 Step (curb) (QC): 5 4 Steps (QC): 5 12 Steps (QC): 9 Picking up an Object (QC): 5 Type: N/A Type: N/A PT Plan Problem List Problem List: Activity Tolerance, Functional Strength, Safety, Balance, Gait, Transfer, Bed Mobility, ROM Treatment/Plan Treatment Plan: Continue Plan of Care Treatment Plan: Bed Mobility, Concurrent Therapy, Education, Functional Activity Melva, Functional Strength, Group Therapy, Gait, Safety, Therapeutic Exercise, Transfers Treatment Duration: Jan 24, 2020 Frequency: At least 5 of 7 days/Wk (IRF) Estimated Hrs Per Day: 1.5 hours per day Patient and/or Family Agrees t: Yes Safety Risks/Education Patient Education: Gait Training, Transfer Techniques, Correct Positioning, Safety Issues Teaching Recipient: Patient Teaching Methods: Demonstration, Discussion Response to Teaching: Reinforcement Needed Time/GCodes Time In: 1300 Time Out: 1315 Total Billed Treatment Time: 15 Total Billed Treatment 1 visit GT 15' LEOBARDO HUBBRAD PT Jan 02, 2020 13:21
--- NOTE | 2020-01-02 14:09 | Speech Therapy Daily Note ---
Speech Daily Progress Note Subjective Date Seen by Provider: Jan 02, 2020 Time Seen by Provider: 11:45 Patient was very tired but cooperative for all therapy tasks. Patient reported that he had just received medicine to manage ongoing pain and was feeling a little drowsy. Patient sat upright in his chair for the duration of treatment. Objective Patient completed compensatory strategies of sitting upright, small bites and sips, and alternating liquids and solids with 75% accuracy and moderate cues. Assessment Assessment Current Status: Good Progress Treatment Plan Continue Plan of Care Speech Short Term Goals Short Term Goals Short Term Goals 1. Patient will tolerate least restrictive diet without s/s of aspiration at 90% or greater. 2. Patient/caregiver will utilize compensatory strategies as trained at 90% with minimal cues. Speech Half-Way Goals Textiles Sales Representative Goals Patient will maintain adequate nutrition/hydration via safe and effective swallow function. Speech-Plan Patient/Family Goals Patient/Family Goals: Patient reports wanting to return to previous diet level prior to hospital admission. Treatment Plan Speech Therapy Treatment Plan: Continue Plan of Care Treatment Duration: Jan 09, 2020 Frequency: 4 times per week (4-5x per week) Estimated Hrs Per Day: .5 hour per day Rehab Potential: Fair Barriers to Learning: Current medical status Pt/Family Agrees to Plan: Yes Safety Risks/Education Teaching Recipient: Patient, Significant Other Teaching Methods: Demonstration, Discussion Response to Teaching: Verbalize Understanding Education Topics Provided: External aid of compensatory strategies to utilize during all oral intake. Time Speech Therapy Time In: 11:45 Speech Therapy Time Out: 12:15 Total Billed Time: 30 Billed Treatment Time 1, SVETLANA ISRA Evangelista Jan 02, 2020 14:08
[2020-01-02] MEDS: CARVEDILOL 6.25 MG (COREG) TAB PO SCH (14:34)
[2020-01-02] MEDS: LOSARTAN 25 MG (COZAAR) TAB PO SCH (14:34)
[2020-01-02] MEDS: ENOXAPARIN 40 MG/0.4 ML (LOVENOX) SYR SC SCH (16:26)
[2020-01-02] MEDS: TAMSULOSIN 0.4 MG (FLOMAX) CAP PO SCH (17:18)
[2020-01-02 18:02] VITALS: BP 120/77
--- NOTE | 2020-01-02 20:20 | NUR ---
Call to Dr. Patel to ask for parameters for pt's scheduled Coreg & Cozaar, per request of Dr. Jeffries. rec'd parameters, see MAR.
[2020-01-02] MEDS: CARVEDILOL 3.125 MG (COREG) TABLET PO SCH (21:07)
[2020-01-02] MEDS: ZINC OXIDE 16% OINT (BUTT PASTE) 113 GM TUBE TOP SCH (21:15)
[2020-01-03] MEDS: oxyCODONE/APAP 7.5-325 MG (PERCOCET 7.5) TABLET PO PRN ×3 (05:14→20:35)
[2020-01-03] MEDS: inSUlin ASPART (NovoLOG) 1 UNIT/0.01 ML (CHARGE PER UNIT) SC SCH ×4 (05:19→21:36)
[2020-01-03 05:21] VITALS: BP 115/72
[2020-01-03] MEDS: CLOPIDOGREL 75 MG (PLAVIX) TABLET PO SCH (08:22)
[2020-01-03] MEDS: fluCOnazole (DIFLUCAN) 100 MG TAB PO SCH (08:22)
[2020-01-03] MEDS: DIVALPROEX 500 MG DELAYED RELEASE (DEPAKOTE) TAB PO SCH ×2 (08:22→20:34)
[2020-01-03] MEDS: ASPIRIN 81 MG CHEW (CHILDREN'S ASA) PO SCH (08:22)
[2020-01-03] MEDS: rOPINIRole 0.25 MG (REQUIP) TAB PO SCH (08:22)
[2020-01-03] MEDS: LOSARTAN 25 MG (COZAAR) TAB PO SCH (08:22)
[2020-01-03] MEDS: SERTRALINE 100 MG (ZOLOFT) TAB PO SCH (08:22)
[2020-01-03] MEDS: AMIODARONE 200 MG (CORDARONE) TAB PO SCH ×2 (08:22→20:35)
[2020-01-03] MEDS: CARVEDILOL 3.125 MG (COREG) TABLET PO SCH ×2 (08:22→20:35)
[2020-01-03] MEDS: PANTOPRAZOLE 40 MG (PROTONIX) TAB PO SCH (08:22)
[2020-01-03] MEDS: PREGABALIN 150 MG (LYRICA) CAPSULE PO SCH ×2 (08:22→20:36)
[2020-01-03] MEDS: SENNA W/DOCUSATE (SENOKOT S) TABLET PO SCH ×2 (08:23→20:42)
[2020-01-03] MEDS: VRAYLAR 1.5 MG CAPSULE PO SCH (08:24)
[2020-01-03] MEDS: ZINC OXIDE 16% OINT (BUTT PASTE) 113 GM TUBE TOP SCH ×2 (08:25→20:41)
[2020-01-03 08:32] VITALS: BP 118/86
[2020-01-03] MEDS: DIAZEPAM 5 MG (VALIUM) TABLET PO PRN ×2 (08:32→17:54)
[2020-01-03] MEDS: polyethylene glycoL POWDER 17 GM (MIRALAX) PACK PO SCH ×2 (08:37→20:42)
[2020-01-03] MEDS: RT-ALBUTEROL/IPRATROPIUM 3 ML (DUONEB) VIAL INH SCH ×3 (09:31→16:10)
--- NOTE | 2020-01-03 09:31 | NUR ---
PATIENT DID NOT GET HIS 0700 SVN BT DUE TO RT'S BEING IN AN INTUBATION; THEN HAD TO GET BRONCH (ONE RT WAS WITH VENT PATIENT AND THE OTHER RT WENT TO GET THE EQUIPMENT AND THEN ONE RT DID THE BRONCH AND THE OTHER RT WENT TO DO AN ABG ON ANOTHER PATIENT, PLACE WATER ON A VAPOTHERM IN ANOTHER ROOM AND THEN GO DOWN TO ED.
--- NOTE | 2020-01-03 11:25 | PM&R Progress Note ---
Subjective HPI/CC On Admission Date Seen by Provider: Jan 03, 2020 Time Seen by Provider: 11:45 Subjective/Events-last exam Patient feels better Debility improved at bedside No pain today Hypoxia improved Checked meds and labs Conferred with RN Reviewed therapy notes Reviewed extensive notes from [facility] Review of Systems General: Fatigue Pulmonary: Dyspnea Musculoskeletal: neck pain Objective Exam Vital Signs Vital Signs Date Time Temp Pulse Resp B/P (MAP) Pulse Ox O2 Delivery O2 Flow Rate FiO2 01/03/20 16:10 94 Room Air 01/03/20 12:22 69 01/03/20 08:32 118/86 (97) 01/03/20 05:21 36.3 20 01/01/20 20:30 2.00 Capillary Refill : Less Than 3 Seconds General Appearance: No Apparent Distress, WD/WN, Anxious, Chronically ill, Other (very fatigued, arrieta) HEENT: PERRL/EOMI, Normal ENT Inspection, Pharynx Normal Neck: Non Tender, Supple, Carotid Bruit, Other (limited ROM in brace) Respiratory: Chest Non Tender, Lungs Clear, No Accessory Muscle Use, No Respiratory Distress, Decreased Breath Sounds Cardiovascular: No Gallop, No JVD, No Murmur, Normal Peripheral Pulses, Tachycardia Gastrointestinal: Normal Bowel Sounds, No Organomegaly, No Pulsatile Mass, Non Tender, Soft Back: Normal Inspection, No CVA Tenderness, No Vertebral Tenderness Extremity: Normal Capillary Refill, Normal Inspection, Normal Range of Motion, Non Tender, No Calf Tenderness, Pedal Edema Neurologic/Psychiatric: Alert, Oriented x3, Normal Mood/Affect, air defence officer II-XII Norm as Tested, Abnormal Gait, Depressed Affect, Motor Weakness (weakness upper and lower extremities) Skin: Normal Color, Warm/Dry Lymphatic: No Adenopathy Results/Procedures Lab Patient resulted labs reviewed. FIM Transfers Therapy Code Descriptions/Definitions Functional Hood Measure: 0=Not Assessed/NA 4=Minimal Assistance 1=Total Assistance 5=Supervision or Setup 2=Maximal Assistance 6=Modified Hood 3=Moderate Assistance 7=Complete IndependenceSCALE: Activities may be completed with or without assistive devices. 4-Kbnjmrsjjc-unyzumt completes the activity by him/herself with no assistance from a helper. 5-Set-up or Clean-up Assistance-helper sets up or cleans up; patient completes activity. Bowers assists only prior to or following the activity. 4-Supervision or Touching Assistance-helper provides verbal cues and/or touching/steadying and/or contact guard assistance as patient completes activity. Assistance may be provided throughout the activity or intermittently. 3-Partial/Moderate Assistance-helper does LESS THAN HALF the effort. Bowers lifts, holds or supports trunk or limbs, but provides less than half the effort. 2-Substantial/Maximal Assistance-helper does MORE THAN HALF the effort. Bowers lifts or holds trunk or limbs and provides more than half the effort. 4-Laqhlrmtn-okzflq does ALL the effort. Patient does none of the effort to complete the activity. Or, the assistance of 2 or more helpers is required for the patient to complete the activity. If activity was not attempted, code reason: 7-Patient Refused. 9-Not Applicable-not attempted and the patient did not perform the activity before the current illness, exacerbation or injury. 10-Not Attempted due to Environmental Limitations-(lack of equipment, weather restraints, etc.). 88-Not Attempted due to Medical Conditions or Safety Concerns. Roll Left to Right (QC): 6 Sit to Lying (QC): 6 Sit to Stand (QC): 4 Chair/Rtr-hu-Giiwi Xfer(QC): 4 Car Transfer (QC): 3 Gait Training Does the Patient Walk?: Yes Distance: 60'x2, 120' Walk 10 feet (QC): 4 Walk 50 ft with 2 Turns(QC): 4 Walk 150 ft (QC): 88 Walking 10ft/uneven surface-QC: 88 Gait Persons Needed: 1 Gait Assistive Device: FWW Wheelchair Training Does the Pt Use a Wheelchair?: Yes Distance: 5' Wheel 50 ft with 2 turns (QC): 75 Wheel 150 ft (QC): 5 Type of Wheelchair: Manual Stair Training 1 Step (curb) (QC): 88 4 Steps (QC): 88 12 Steps (QC): 9 Balance Picking up an Object (QC): 88 ADL-Treatment Oral Hygiene (QC): 7 Shower/Bathe Self (QC): 3 Upper Body Dressing (QC): 2 Lower Body Dressing (QC): 2 On/Off Footwear (QC): 3 Toileting Hygiene (QC): 3 (Pt able to reach bottom/ cleanse self, states diminished sensation in R hand to be able to discriminate where hand is placed. Pt requires mod A for thoroughness, pt's balance fair in stance.) Toilet Transfer (QC): 7 Assessment/Plan Assessment and Plan Assess & Plan/Chief Complaint Assessment: Debility Bilateral bibasilar PNA placed on Vanc and Meropenem and Diflucan and moved to ICU x 2 days now DC abx h/o septic shock 08/2019 s/p central cervical spinal cord syndrome resulting in chronic debility and weakness s/p decompression per [facility] NSG h/o UTI CAD s/p stents 12/18/19 Dr Lovelace after cardiac arrest Ischemic cardiomyopathy previous Lifevest worn Tendency for volume overload Chronic edema Bipolar disorder Urinary retention now resolved cysto normal Plan: Home meds Appreciate cardiology and pulmonology and urology Monitor volume status Inpatient rehabilitation protocol Abx completed (1) Central cord syndrome (2) Spinal cord compression (3) Former smoker (4) Bipolar disorder (5) Delirium (6) Edema (7) Wheelchair bound (8) DAISY on CPAP (9) CAD (coronary artery disease) (10) CHF (congestive heart failure) (11) UTI (urinary tract infection) (12) Debility Status: Acute (13) Sacral pressure ulcer MANPREET SPENCER DO Jan 03, 2020 11:25
--- NOTE | 2020-01-03 13:11 | Physical Therapy Daily Note ---
PT Daily Note-Current Subjective Pt agreeable to PT session. States he is sore on his rear end, it is being treated but still some painful. Discussed positions and attempting as much as he can on his own for wt shifting and to call nursing when needed for assist to do so. Pt stating his pain is "kind of normal" in his ribs and neck as well as soreness on his rear. States he has neuropathy in his hands and feet from diabetes for about 6-7 years now. Pain Numeric Pain Scale: 8 Comment: shoulders down to lower torso where surgical cage and broken ribs are Appearance Pt sitting up in recliner upon arrival, nurse and present. At end of session, pt sitting up in recliner with LE's elevated, call light, phone and bedside table within reach, nsg notified of pt's request to have buttocks treated. Mental Status Patient Orientation: Person, Place, Time, Eyes Open, Situation Attachments: Other-See Comments (cervical collar) pt states he uses O2/nc at night Transfers SCALE: Activities may be completed with or without assistive devices. 4-Xxdiaapraz-mdpkppe completes the activity by him/herself with no assistance from a helper. 5-Set-up or Clean-up Assistance-helper sets up or cleans up; patient completes activity. [place] assists only prior to or following the activity. 4-Supervision or Touching Assistance-helper provides verbal cues and/or touching/steadying and/or contact guard assistance as patient completes activity. Assistance may be provided throughout the activity or intermittently. 3-Partial/Moderate Assistance-helper does LESS THAN HALF the effort. [place]annah lifts, holds or supports trunk or limbs, but provides less than half the effort. 2-Substantial/Maximal Assistance-helper does MORE THAN HALF the effort. [place] lifts or holds trunk or limbs and provides more than half the effort. 1-Npyxjxorw-qezpjo does ALL the effort. Patient does none of the effort to complete the activity. Or, the assistance of 2 or more helpers is required for the patient to complete the activity. If activity was not attempted, code reason: 7-Patient Refused. 9-Not Applicable-not attempted and the patient did not perform the activity before the current illness, exacerbation or injury. 10-Not Attempted due to Environmental Limitations-(lack of equipment, weather restraints, etc.). 88-Not Attempted due to Medical Conditions or Safety Concerns. Sit to Stand (QC): 4 Weight Bearing Right Lower Extremity: Right Full Weight Bearing Left Lower Extremity: Left Full Weight Bearing Gait Training Does the Patient Walk?: Yes Distance: 50, 56, 106 Walk 10 feet (QC): 4 Walk 50 ft with 2 Turns(QC): 4 Gait Persons Needed: 1 Gait Assistive Device: FWW slow shuffling pace at times, no LOB or unsteadiness, rest breaks required due to fatigue report of congestion and needing to catch breath Exercises Seated Therapy Exercises: Ankle pumps (20 x2), Long arc quads (15), Hip flexion (15) Seated Reps: 20 (breaking accelleration activity simulation ) Treatments education, safety, gait, transfers, balance, strength, activity tolerance, functional mobility Assessment Current Status: Fair Progress able to increase sitting ex reps per pt report PT Penitentiary Goals Automatic Pinsetter Mechanic Goals PT Penitentiary Goals Time Frame: Jan 24, 2020 Roll Left & Right (QC): 5 Sit to Lying (QC): 5 Lying-Sitting on Side/Bed(QC): 5 Sit to Stand (QC): 5 Chair/Lhy-xz-Qotdf Xfer(QC): 5 Toilet Transfer (QC): 5 Car Transfer (QC): 5 Does the Patient Walk: Yes Walk 10 feet (QC): 5 Walk 50ft with 2 Turns (QC): 5 Walk 150 ft (QC): 5 Walking 10ft on Uneven Surface: 5 1 Step (curb) (QC): 5 4 Steps (QC): 5 12 Steps (QC): 9 Picking up an Object (QC): 5 Type: N/A Type: N/A PT Plan Treatment/Plan Treatment Plan: Continue Plan of Care Treatment Plan: Bed Mobility, Concurrent Therapy, Education, Functional Activity Melva, Functional Strength, Group Therapy, Gait, Safety, Therapeutic Exercise, Transfers Treatment Duration: Jan 24, 2020 Frequency: At least 5 of 7 days/Wk (IRF) Estimated Hrs Per Day: 1.5 hours per day Patient and/or Family Agrees t: Yes Safety Risks/Education Patient Education: Gait Training, Transfer Techniques, Safety Issues Teaching Recipient: Patient Teaching Methods: Discussion Response to Teaching: Verbalize Understanding, Return Demonstration Time/GCodes Time In: 831 Time Out: 904 Total Billed Treatment Time: 33 Total Billed Treatment 1 visit, GT x2 units DIANNE WEST PTA Jan 03, 2020 13:11
[2020-01-03] MEDS: ENOXAPARIN 40 MG/0.4 ML (LOVENOX) SYR SC SCH (15:58)
--- NOTE | 2020-01-03 16:12 | Progress Note - Cardiology ---
Cardiology SOAP Progress Note Subjective: Dr Jeffries asked us to eval pt for adjustment of meds because he has intermittently been running a low bp Pt does not report cp or palp or syncope or shortness of breat Has gen malaise and weakness Does not report n/v/d Objective: I&O/Vital Signs 01/03/20 01/03/20 01/03/20 01/03/20 05:21 07:00 08:32 09:58 Temp 36.3 Pulse 72 78 76 Resp 20 B/P (MAP) 115/72 (86) 118/86 (97) Pulse Ox 94 O2 Delivery Room Air Room Air 01/03/20 01/03/20 11:30 12:22 Pulse 69 Pulse Ox 92 O2 Delivery Room Air 01/03/20 00:00 Intake Total 1120 ml Balance 1120 ml Weight (Pounds): 255 Weight (Calculated Kilograms): 115.267058 Constitutional: AAO x 3, well-developed, well-nourished Respiratory: accessory muscle use, other (good bilat air entry, somewhat diminished at the bases) Cardiovascular: regular rate-rhythm, S1 and S2, systolic murmur (soft LYNN at card base) Gastrointestional: No tender; soft; No guarding, No rebound; audible bowel sounds Extremities: No clubbing, No cyanosis, No significant edema Neurologic/Psychiatric: oriented x 3, other (moves all limbs ) Skin: warm/dry; No rash on exposed areas, No ulcerations on exposed areas Results/Procedures: Labs Laboratory Tests 01/02/20 16:19: Glucometer 144H 01/02/20 20:43: Glucometer 204H 01/03/20 05:16: Glucometer 155H 01/03/20 11:11: Glucometer 142H A/P: Assessment: CAD. H/o cor stents in Jul 2009 and 3 more stents in late Nov [address] Lovelace in [place] Status post acute respiratory failure, currently back to baseline, having shortness of breath. Continue to monitor Chronic systolic CHF due to ischemic cm; echocardiogram has shown ejection fraction 40-45 percent, which is significant improvement compared to the previous study Status post C-spine surgery, recovering slowly Hyperlipidemia Bipolar disorder, managed by primary care physician Plan: * I interviewed and examined him and reviewed his records * Continue DAPT * Continue heart failure therapy, but reduce doses as needed to keep SBP more th an 90 mmHg * Monitor labs * I spoke with him and his fam and answered questions MARIA E CHADWICK MD FACP FAC CCDS Jan 03, 2020 16:12
[2020-01-03] MEDS: TAMSULOSIN 0.4 MG (FLOMAX) CAP PO SCH (17:31)
[2020-01-03 18:11] VITALS: BP 103/70
--- NOTE | 2020-01-03 19:00 | NUR ---
THIS RT RECEIVES IN REPORT FROM NF MANAGER PRIVATE THAT PT TAKES NEB WITH MASK "MAKE SURE FLOW IS TURNED ON BEFORE PLACING ON AND FLOW CONTINUES AFTER TX IS DONE BEFORE REMOVING MASK. PT GETS ANXIOUS." WHEN ASKED WHY DOES PT USES MASK AND NOT MOUTH PIECE PREVIOUS RT [facility] ADDICTION MEDICINE PHYSICIAN STATES "PT REPORTED HE TO LAZY TO HOLD IT" APPROXIMATELY 1900 THIS RT KNOCKS AND STATES I AM FROM RESPIRATORY I HAVE A BREATHING TX FOR YOU.BEFORE WE START I HAVE SOME QUESTIONS FOR YOU. AT BEDSIDE IN CHAIR EATING TACO SALAD PT IN BED PT GASP IN DISGUST.ASK HOW MANY TREATMENTS DOES HE GET A DAY . PT IS INFORMED 4 TIMES A DAY.I ASKED PT THE FOLLOWING QUESTIONS . DO YOU TAKE BREATHING TX AT HOME? PT ANSWERS NO ANY INHALERS ? PT STATES NO. DO YOU WEAR OXYGEN AT HOME ? PT STATES NO REPORTS JUST HIS HOME CPAP .STATES HE HAS NOT BEEN WEARING IT BECAUSE RIGHT NARE LEONE. I ASKED HAS RT BEEN PUTTING WATER IN HOME UNIT TO HELP WITH HUMIDITY. STATES YES.IT DOESNT BURN AND POINTING TO O2 BUBBLER ON THE WALL WITH THAT. LATER REPORTS THAT IT COULD POSSIBLY BE THE NASAL MASK.(THAT IS ON BORROWED FROM OUR SLEEP UNIT) I ASKED IF PT HAD A SMOKING HX.? PT STATES YES FOR 20 YEARS . HAS STOP SMOKING .I ASKED IF PT HAS EVER BEEN DX WITH COPD. PT STATES YES. NOTED PT ON RA SPO2 97% NO WOB . ASKED IF PT FELT SOA?PT STATES NO. AEROBIKA DONE X10 ENCOUGED PT TO DO SMI AT BEDSIDE ON OWN. EXPLAINED BENEFITS OF BOTH. TURNS TO PT ASKS ABOUT LAST CXR. PT STATES HASNT HAD ONE SINCE ICU TELLS HIM HE IS WRONG. THEY BEGAN TO ARGU AMONGST THEM SELVES AT THIS TIME THIS RT IS TRYING TO LISTEN TO BS . ASKING ME WHEN LAST CXR WAS? I STATE MAYBE LAST WAS ON 12/20 TO GIVE ME A FEW MINUTES AND I CAN LOOK IT UP. CONTINUES TO TELL ME HE WASNT HERE ON THE . HE WAS AT [facility]. I STOP TO LOOK UP CXR IN ROOM. INFORMED BOTH I WAS WRONG THAT IT WAS ON 12/30.I ATTEMPTED TO GIVE TX PT REFUSED.INFORMED BOTH PT AND THAT IF PT FEELS SOA OR FEELS LIKE HE NEEDS THEM TO CALL RN AND I WILL RETURN TO GIVE TX. THIS RT STATES WE CAN POSSIBLY PUT IN SOME SUGGESTIVE ORDERS TO DR MALDONADO TO CHANGE FREQUENCY TO PRN . PRN EDUCATION GIVEN. BOTH PT AND STATE NO FURTHER QUESTIONS.BOTH PT AND ARE ENCOURGED TO CALL OUT FOR TX OR FURTHER QUESTIONS. SEE NEXT RT NOTE Addendum: 01/03/20 at 2132 by FAYE DAVIS RT CORRECTION PT OPENLY STATES HE IS TO LAZY TO HOLD NEB TX
--- NOTE | 2020-01-03 19:25 | NUR ---
Patient's came to the desk and asked what the RT's name was. given the RT's name and then the voiced that the RT was rude and that was unacceptable. RN to patient room to take him to the restroom. On the way there, RN witnessed walk up to the RT and start to voice her complaint.
--- NOTE | 2020-01-03 19:30 | NUR ---
Patient back to bed. RT came back to room and apologized to patient and explained she wasn't trying to be rude and she is sorry they felt that way. She explained she was trying to get his whole story so she could use the proper respiratory treatments. She went over everything again with the patient and his . states she feels like the RT was arguing with her during their earlier discussion. RT apologized and explained herself again. Patient states that it won't be a problem because he doesn't want anymore treatments until he talks to the doctor. RT explained that if he wants one at any time to let the RN know and he would contact her. RT also stated she would have the other RT take over care of the patient. and patient stated that would not be necessary.
--- NOTE | 2020-01-03 19:30 | NUR ---
STOPS THIS RT IN HALLWAY. COMPLAINS I WAS RUDE , AND I WAS ASKING QUESTIONS THAT A DOCTOR SHOULD ASK. I SAY I AM SORRY AND I WLL WAIT FOR PT TO RETURN FROM BATHROOM AND APOLOGISE TO HIM. I DO ASK RN TO WITNESS. I KNOCK WALK UP TO PT AND SAY I AM SORRY THAT I DID NOT MEAN TO BE RUDE. I RECAP ENTIRE CONVERSION WITH PT ,PT AND RN IN ROOM . AT THIS TIME VERBALIZES NEW COMPLAINTS .THAT DR MALDONADO IS NOT ON HIS CASE . NOTED RT ORDERS WERE LAST RECEIVED FROM DR MALDONADO . RN EXPLAINS TO PROCESS OF DR SPENCER AND JOEL. COMPLAINS I WAS ARGUING WITH HER ABOUT CXR. I EXPLAINED TO THAT I HAD STEPHSCOPE IN EARS TRYING TO LISTEN TO BREATH SOUNDS.PT STATES HE IS NOT GOING TO TAKE ANY MORE TX SO I DONT HAVE TO CARE ABOUT HIM. I TELL PT I DO CARE ABOUT HIM AND WANT HIM TO RECEIVE THE BEST THERAPY PT THEN STATES THAT HE HAS HAD ONE TRY TO SUFFICATE HIM AND THIS IS REASON FOR MASK ISSUE . I TELL PT I COMPLETELY UNDERSTAND I ALSO TELL PT I DO NOT WANT HIM TO FEEL LIKE I AM BULLYING HIM AND ENCOURGE HIM TO TAKE TX AND CALL OUT FOR THEM. I AGAIN ASK IF EVERY ONE AGREES ON PLAN BOTH PT AND AGREE . THIS RT OFFERS TO SIGN OF PT AND PROVIDE A DIFFERENT THERAPIST FOR THEM . SHAKES HER HEAD NO.
[2020-01-03] MEDS: CATHETER FLUSH 10 ML SYR IV SCH (20:41)
[2020-01-04 05:21] VITALS: BP 110/75
[2020-01-04] MEDS: CATHETER FLUSH 10 ML SYR IV SCH ×3 (06:09→20:53)
[2020-01-04] MEDS: inSUlin ASPART (NovoLOG) 1 UNIT/0.01 ML (CHARGE PER UNIT) SC SCH ×4 (06:10→20:41)
[2020-01-04] MEDS: RT-ALBUTEROL/IPRATROPIUM 3 ML (DUONEB) VIAL INH SCH (06:56)
[2020-01-04] MEDS: SERTRALINE 100 MG (ZOLOFT) TAB PO SCH (08:14)
[2020-01-04] MEDS: PREGABALIN 150 MG (LYRICA) CAPSULE PO SCH ×2 (08:15→20:43)
[2020-01-04] MEDS: rOPINIRole 0.25 MG (REQUIP) TAB PO SCH (08:15)
[2020-01-04] MEDS: LOSARTAN 25 MG (COZAAR) TAB PO SCH (08:15)
[2020-01-04] MEDS: AMIODARONE 200 MG (CORDARONE) TAB PO SCH ×2 (08:15→20:43)
[2020-01-04] MEDS: CLOPIDOGREL 75 MG (PLAVIX) TABLET PO SCH (08:15)
[2020-01-04] MEDS: CARVEDILOL 3.125 MG (COREG) TABLET PO SCH ×2 (08:15→20:45)
[2020-01-04] MEDS: PANTOPRAZOLE 40 MG (PROTONIX) TAB PO SCH (08:15)
[2020-01-04] MEDS: ASPIRIN 81 MG CHEW (CHILDREN'S ASA) PO SCH (08:15)
[2020-01-04] MEDS: DIVALPROEX 500 MG DELAYED RELEASE (DEPAKOTE) TAB PO SCH ×2 (08:15→20:44)
[2020-01-04] MEDS: oxyCODONE/APAP 7.5-325 MG (PERCOCET 7.5) TABLET PO PRN ×3 (08:16→20:43)
[2020-01-04] MEDS: VRAYLAR 1.5 MG CAPSULE PO SCH (08:17)
[2020-01-04] MEDS: ZINC OXIDE 16% OINT (BUTT PASTE) 113 GM TUBE TOP SCH ×2 (08:18→20:52)
[2020-01-04 08:20] VITALS: BP 111/74
--- NOTE | 2020-01-04 08:50 | Progress Note - Urology ---
Progress Note-Urology Progress Notes/Assess & Plan Progress/Assessment & Plan CONTINUES VOIDING AND EMPTYING WELL. Final Diagnosis URINE RETENTION (RESOLVED) MORGAN CORREA MD Jan 04, 2020 08:50
[2020-01-04] MEDS: polyethylene glycoL POWDER 17 GM (MIRALAX) PACK PO SCH ×2 (10:26→20:52)
[2020-01-04] MEDS: SENNA W/DOCUSATE (SENOKOT S) TABLET PO SCH ×2 (10:27→20:52)
[2020-01-04] MEDS: DIAZEPAM 5 MG (VALIUM) TABLET PO PRN ×2 (10:59→17:19)
[2020-01-04] MEDS ORDERED: RT-ALBUTEROL/IPRATROPIUM 3 ML (DUONEB) VIAL INH PRN (12:30)
--- NOTE | 2020-01-04 13:50 | NUR ---
OK TO CHANGE BREATHING TREATMENTS TO PRN PER DR. SPENCER.
--- NOTE | 2020-01-04 14:35 | NUR ---
OK TO DC TELEMETRY PER DR. SPENCER.
--- NOTE | 2020-01-04 15:08 | PM&R Progress Note ---
Subjective HPI/CC On Admission Date Seen by Provider: Jan 04, 2020 Time Seen by Provider: 14:00 Subjective/Events-last exam Patient feels dramatically better and is currently taking a nap Debility improved Family at bedside No pain today Hypoxia resolved DC Nebs BM+ Moods are labile Checked meds and labs Conferred with RN Reviewed therapy notes Review of Systems General: Fatigue Musculoskeletal: neck pain Objective Exam Vital Signs Vital Signs Date Time Temp Pulse Resp B/P (MAP) Pulse Ox O2 Delivery O2 Flow Rate FiO2 01/04/20 18:00 35.4 67 20 103/69 (80) 96 Room Air 01/01/20 20:30 2.00 Capillary Refill : Less Than 3 Seconds General Appearance: No Apparent Distress, WD/WN, Anxious, Chronically ill, Other (very fatigued, [place]) HEENT: PERRL/EOMI, Normal ENT Inspection, Pharynx Normal Neck: Non Tender, Supple, Carotid Bruit, Other (limited ROM in brace) Respiratory: Chest Non Tender, Lungs Clear, No Accessory Muscle Use, No Respiratory Distress, Decreased Breath Sounds Cardiovascular: No Gallop, No JVD, No Murmur, Normal Peripheral Pulses, Tachycardia Gastrointestinal: Normal Bowel Sounds, No Organomegaly, No Pulsatile Mass, Non Tender, Soft Back: Normal Inspection, No CVA Tenderness, No Vertebral Tenderness Extremity: Normal Capillary Refill, Normal Inspection, Normal Range of Motion, Non Tender, No Calf Tenderness, Pedal Edema Neurologic/Psychiatric: Alert, Oriented x3, Normal Mood/Affect, network 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 FIM Transfers Therapy Code Descriptions/Definitions Functional [place] Measure: 0=Not Assessed/NA 4=Minimal Assistance 1=Total Assistance 5=Supervision or Setup 2=Maximal Assistance 6=Modified [place] 3=Moderate Assistance 7=Complete IndependenceSCALE: Activities may be completed with or without assistive devices. 8-Jtqfhtuaio-ehxgivq completes the activity by him/herself with no assistance from a helper. 5-Set-up or Clean-up Assistance-helper sets up or cleans up; patient completes activity. [place] assists only prior to or following the activity. 4-Supervision or Touching Assistance-helper provides verbal cues and/or touching/steadying and/or contact guard assistance as patient completes activity. Assistance may be provided throughout the activity or intermittently. 3-Partial/Moderate Assistance-helper does LESS THAN HALF the effort. [place] lifts, holds or supports trunk or limbs, but provides less than half the effort. 2-Substantial/Maximal Assistance-helper does MORE THAN HALF the effort. [place] lifts or holds trunk or limbs and provides more than half the effort. 2-Hzrpvrqwe-kjugph does ALL the effort. Patient does none of the effort to complete the activity. Or, the assistance of 2 or more helpers is required for the patient to complete the activity. If activity was not attempted, code reason: 7-Patient Refused. 9-Not Applicable-not attempted and the patient did not perform the activity before the current illness, exacerbation or injury. 10-Not Attempted due to Environmental Limitations-(lack of equipment, weather restraints, etc.). 88-Not Attempted due to Medical Conditions or Safety Concerns. Roll Left to Right (QC): 6 Sit to Lying (QC): 6 Sit to Stand (QC): 4 Chair/Csv-me-Reliw Xfer(QC): 4 Car Transfer (QC): 3 Gait Training Does the Patient Walk?: Yes Distance: 50, 56, 106 Walk 10 feet (QC): 4 Walk 50 ft with 2 Turns(QC): 4 Walk 150 ft (QC): 88 Walking 10ft/uneven surface-QC: 88 Gait Persons Needed: 1 Gait Assistive Device: FWW Wheelchair Training Does the Pt Use a Wheelchair?: Yes Distance: 5' Wheel 50 ft with 2 turns (QC): 75 Wheel 150 ft (QC): 5 Type of Wheelchair: Manual Stair Training 1 Step (curb) (QC): 88 4 Steps (QC): 88 12 Steps (QC): 9 Balance Picking up an Object (QC): 88 ADL-Treatment Oral Hygiene (QC): 7 Shower/Bathe Self (QC): 3 Upper Body Dressing (QC): 2 Lower Body Dressing (QC): 2 On/Off Footwear (QC): 3 Toileting Hygiene (QC): 3 (Pt able to reach bottom/ cleanse self, states diminished sensation in R hand to be able to discriminate where hand is placed. Pt requires mod A for thoroughness, pt's balance fair in stance.) Toilet Transfer (QC): 7 Assessment/Plan Assessment and Plan Assess & Plan/Chief Complaint Assessment: Debility Bilateral bibasilar PNA placed on Vanc and Meropenem and Diflucan and moved to ICU x 2 days now DC abx h/o septic shock 08/2019 s/p central cervical spinal cord syndrome resulting in chronic debility and weakness s/p decompression per [facility] NSG h/o UTI CAD s/p stents 12/18/19 Dr Lovelace after cardiac arrest Ischemic cardiomyopathy previous Lifevest worn Tendency for volume overload Chronic edema Bipolar disorder Urinary retention now resolved cysto normal Plan: Home meds Appreciate cardiology and pulmonology and urology Monitor volume status Inpatient rehabilitation protocol Abx completed (1) Central cord syndrome (2) Spinal cord compression (3) Former smoker (4) Bipolar disorder (5) Delirium (6) Edema (7) Wheelchair bound (8) DAISY on CPAP (9) CAD (coronary artery disease) (10) CHF (congestive heart failure) (11) UTI (urinary tract infection) (12) Debility Status: Acute (13) Sacral pressure ulcer MANPREET SPENCER DO Jan 04, 2020 15:08
[2020-01-04] MEDS: ENOXAPARIN 40 MG/0.4 ML (LOVENOX) SYR SC SCH (16:25)
--- NOTE | 2020-01-04 16:41 | Progress Note - Cardiology ---
Cardiology SOAP Progress Note Subjective: He does not report cp or palp or syncope No shortness of breath at rest No swelling No n/v/d Weakness improving Objective: I&O/Vital Signs 01/04/20 01/04/20 01/04/20 01/04/20 05:21 07:00 08:20 09:00 Temp 36.2 Pulse 80 78 72 Resp 20 B/P (MAP) 110/75 (87) 111/74 (86) Pulse Ox 93 O2 Delivery Room Air Room Air 01/04/20 12:08 Pulse 71 01/04/20 00:00 Intake Total 888 ml Balance 888 ml Weight (Pounds): 255 Weight (Calculated Kilograms): 115.305208 Constitutional: AAO x 3, well-developed, well-nourished Respiratory: accessory muscle use, other (good bilat air entry, somewhat diminished at the bases) Cardiovascular: regular rate-rhythm, S1 and S2, systolic murmur (soft LYNN at card base) Gastrointestional: No tender; soft; No guarding, No rebound; audible bowel sounds Extremities: No clubbing, No cyanosis, No significant edema Neurologic/Psychiatric: oriented x 3, other (moves all limbs ) Skin: warm/dry; No rash on exposed areas, No ulcerations on exposed areas Results/Procedures: Labs Laboratory Tests 01/03/20 21:33: Glucometer 144H 01/04/20 06:06: Glucometer 143H 01/04/20 10:55: Glucometer 148H 01/04/20 16:00: Glucometer 182H A/P: Assessment: Hypotension, improved after med adjustments CAD. H/o cor stents in Jul 2009 and 3 more stents in late Nov [address] Lovelace in [place] Status post acute respiratory failure, currently back to baseline, having shortness of breath. Continue to monitor Chronic systolic CHF due to ischemic cm; echocardiogram has shown ejection frac tion 40-45 percent, which is significant improvement compared to the previous study Status post C-spine surgery, recovering slowly Hyperlipidemia Bipolar disorder, managed by primary care physician Plan: * Continue current regimen * Monitor labs * I again spoke with him and his fam and answered questions MARIA E CHADWICK MD FACP FAC CCDS Jan 04, 2020 16:41
[2020-01-04] MEDS: TAMSULOSIN 0.4 MG (FLOMAX) CAP PO SCH (17:19)
[2020-01-04 18:00] VITALS: BP 103/69
[2020-01-05] MEDS: oxyCODONE/APAP 7.5-325 MG (PERCOCET 7.5) TABLET PO PRN ×3 (02:42→18:52)
[2020-01-05 05:44] VITALS: BP 136/76
[2020-01-05] MEDS: CATHETER FLUSH 10 ML SYR IV SCH ×3 (06:43→20:55)
[2020-01-05] MEDS: inSUlin ASPART (NovoLOG) 1 UNIT/0.01 ML (CHARGE PER UNIT) SC SCH ×4 (06:43→21:33)
[2020-01-05 06:46] LABS: BASOPHILS % (AUTO) 0 % (0-10); EOSINOPHILS # (AUTO) 0.2 10^3/uL (0.0-0.3); EOSINOPHILS % (AUTO) 3 % (0-10); HEMATOCRIT 32 % (40-54); HEMOGLOBIN 10.2 G/DL (13.3-17.7); LYMPHOCYTES # (AUTO) 1.8 X 10^3 (1.0-4.0); LYMPHOCYTES % (AUTO) 31 % (12-44); MEAN CORPUSCULAR HEMOGLOBIN 26 PG (25-34); MEAN CORPUSCULAR HGB CONC 32 G/DL (32-36); MEAN CORPUSCULAR VOLUME 81 FL (80-99); MEAN PLATELET VOLUME 8.9 FL (7.4-10.4); MONOCYTES # (AUTO) 0.5 X 10^3 (0.0-1.0); MONOCYTES % (AUTO) 8 % (0-12); NEUTROPHILS # (AUTO) 3.5 X 10^3 (1.8-7.8); NEUTROPHILS % (AUTO) 58 % (42-75); PLATELET COUNT 219 10^3/uL (130-400); RED CELL DISTRIBUTION WIDTH 16.3 % (10.0-14.5)
[2020-01-05 07:05] LABS: ALANINE AMINOTRANSFERASE 31 U/L (0-55); ALBUMIN 3.4 GM/DL (3.2-4.5); ALKALINE PHOSPHATASE 121 U/L (40-136); BILIRUBIN,TOTAL 0.3 MG/DL (0.1-1.0); BUN/CREATININE RATIO 13; CALCIUM 9.4 MG/DL (8.5-10.1); CARBON DIOXIDE 28 MMOL/L (21-32); CHLORIDE 102 MMOL/L (98-107); CREATININE SERUM 0.83 MG/DL (0.60-1.30); GFR ESTIMATED > 60; GLUCOSE 142 MG/DL (70-105); POTASSIUM 4.7 MMOL/L (3.6-5.0); SODIUM 140 MMOL/L (135-145); TOTAL PROTEIN 6.7 GM/DL (6.4-8.2)
--- NOTE | 2020-01-05 08:03 | Physical Therapy Daily Note ---
PT Daily Note-Current Subjective Pt agreeable to PT session. Reports his pain is "manageable at 6/10". Pain Numeric Pain Scale: 6 Comment: neck, shoulders radiating down through trunk and back Appearance Pt sitting up in recliner with present upon arrival. At end of session, pt sitting up in recliner with call light, phone and bedside table within reach. Mental Status Patient Orientation: Person, Place, Time, Eyes Open, Situation hard cervical collar Transfers SCALE: Activities may be completed with or without assistive devices. 0-Udmwheqhbp-xvtdoua completes the activity by him/herself with no assistance from a helper. 5-Set-up or Clean-up Assistance-helper sets up or cleans up; patient completes activity. [place] assists only prior to or following the activity. 4-Supervision or Touching Assistance-helper provides verbal cues and/or touching/steadying and/or contact guard assistance as patient completes activity. Assistance may be provided throughout the activity or intermittently. 3-Partial/Moderate Assistance-helper does LESS THAN HALF the effort. [place] lifts, holds or supports trunk or limbs, but provides less than half the effort. 2-Substantial/Maximal Assistance-helper does MORE THAN HALF the effort. [place] lifts or holds trunk or limbs and provides more than half the effort. 2-Hjvhectcv-auusfg does ALL the effort. Patient does none of the effort to complete the activity. Or, the assistance of 2 or more helpers is required for the patient to complete the activity. If activity was not attempted, code reason: 7-Patient Refused. 9-Not Applicable-not attempted and the patient did not perform the activity before the current illness, exacerbation or injury. 10-Not Attempted due to Environmental Limitations-(lack of equipment, weather restraints, etc.). 88-Not Attempted due to Medical Conditions or Safety Concerns. Sit to Stand (QC): 4 several episodes requiring skilled verb inst for safety and hand and walker placement during sit to and from stand transfers Weight Bearing Right Lower Extremity: Right Full Weight Bearing Left Lower Extremity: Left Full Weight Bearing Gait Training Does the Patient Walk?: Yes Distance: 112, 130, 90, 52, 50 Walk 10 feet (QC): 4 Walk 50 ft with 2 Turns(QC): 4 Walk 150 ft (QC): 4 Gait Persons Needed: 1 Gait Assistive Device: FWW slow pace with kyphotic posture and fwd flexed neck/head, walker too far forward but improved with raising walker height and with skilled verb inst for posture, weakness in UE and LE's, fatigue, unsteady but without LOB, skilled inst required with turning to sit due to pt leaves walker aside with hand on it while twisting body to sit into chair before backing up to chair all the way Exercises Standing: Heel/toe raises (20), Marching (15), Mini squats (20) Assessment fatigue with all activities requiring sitting rest breaks throughout tx session. Decreased safety awareness milagro stand to sit transfers after gait PT Measurement Supervisor Goals Measurement Supervisor Goals PT Measurement Supervisor Goals Time Frame: Jan 24, 2020 Roll Left & Right (QC): 5 Sit to Lying (QC): 5 Lying-Sitting on Side/Bed(QC): 5 Sit to Stand (QC): 5 Chair/Xar-ny-Nzhgk Xfer(QC): 5 Toilet Transfer (QC): 5 Car Transfer (QC): 5 Does the Patient Walk: Yes Walk 10 feet (QC): 5 Walk 50ft with 2 Turns (QC): 5 Walk 150 ft (QC): 5 Walking 10ft on Uneven Surface: 5 1 Step (curb) (QC): 5 4 Steps (QC): 5 12 Steps (QC): 9 Picking up an Object (QC): 5 Type: N/A Type: N/A PT Plan Treatment/Plan Treatment Plan: Continue Plan of Care Treatment Plan: Bed Mobility, Concurrent Therapy, Education, Functional Activity Melva, Functional Strength, Group Therapy, Gait, Safety, Therapeutic Exercise, Transfers Treatment Duration: Jan 24, 2020 Frequency: At least 5 of 7 days/Wk (IRF) Estimated Hrs Per Day: 1.5 hours per day Patient and/or Family Agrees t: Yes Safety Risks/Education Patient Education: Gait Training, Transfer Techniques, Reviewed Precautions, Safety Issues Teaching Recipient: Patient Teaching Methods: Demonstration, Discussion Response to Teaching: Verbalize Understanding, Return Demonstration, Reinforcement Needed Time/GCodes Time In: 800 Time Out: 900 Total Billed Treatment Time: 60 Total Billed Treatment 1 visit, EX x20 min, GT x30 min, FA x10 min DIANNE WEST BIOMETR[employer] EXPERIMENTALIST Jan 05, 2020 08:03
--- NOTE | 2020-01-05 08:35 | PM&R Progress Note ---
Subjective HPI/CC On Admission Date Seen by Provider: Jan 05, 2020 Time Seen by Provider: 08:45 Subjective/Events-last exam Pt doing very well Wants to go home soon Hgb stable at 10.2 Pain is improved Valium has been helpful to for the muscle spasms Disposition soon and home. Moods are labile Checked meds and labs Conferred with RN Reviewed therapy notes Review of Systems General: Fatigue Musculoskeletal: neck pain Objective Exam Vital Signs Vital Signs Date Time Temp Pulse Resp B/P (MAP) Pulse Ox O2 Delivery O2 Flow Rate FiO2 01/06/20 04:00 36.5 56 20 144/78 (100) 93 Room Air 01/01/20 20:30 2.00 Capillary Refill : Less Than 3 Seconds General Appearance: No Apparent Distress, WD/WN, Anxious, Chronically ill, Other (very fatigued, [place]) HEENT: PERRL/EOMI, Normal ENT Inspection, Pharynx Normal Neck: Non Tender, Supple, Carotid Bruit, Other (limited ROM in brace) Respiratory: Chest Non Tender, Lungs Clear, No Accessory Muscle Use, No Respiratory Distress, Decreased Breath Sounds Cardiovascular: No Gallop, No JVD, No Murmur, Normal Peripheral Pulses, Tachycardia Gastrointestinal: Normal Bowel Sounds, No Organomegaly, No Pulsatile Mass, Non Tender, Soft Back: Normal Inspection, No CVA Tenderness, No Vertebral Tenderness Extremity: Normal Capillary Refill, Normal Inspection, Normal Range of Motion, Non Tender, No Calf Tenderness, Pedal Edema Neurologic/Psychiatric: Alert, Oriented x3, Normal Mood/Affect, traffic 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 FIM Transfers Therapy Code Descriptions/Definitions Functional [place] Measure: 0=Not Assessed/NA 4=Minimal Assistance 1=Total Assistance 5=Supervision or Setup 2=Maximal Assistance 6=Modified [place] 3=Moderate Assistance 7=Complete IndependenceSCALE: Activities may be completed with or without assistive devices. 8-Fixissinko-xqwpvas completes the activity by him/herself with no assistance from a helper. 5-Set-up or Clean-up Assistance-helper sets up or cleans up; patient completes activity. [place] assists only prior to or following the activity. 4-Supervision or Touching Assistance-helper provides verbal cues and/or touching/steadying and/or contact guard assistance as patient completes activity. Assistance may be provided throughout the activity or intermittently. 3-Partial/Moderate Assistance-helper does LESS THAN HALF the effort. [place] lifts, holds or supports trunk or limbs, but provides less than half the effort. 2-Substantial/Maximal Assistance-helper does MORE THAN HALF the effort. [place] lifts or holds trunk or limbs and provides more than half the effort. 7-Toemhuloz-lwcuji does ALL the effort. Patient does none of the effort to comp lete the activity. Or, the assistance of 2 or more helpers is required for the patient to complete the activity. If activity was not attempted, code reason: 7-Patient Refused. 9-Not Applicable-not attempted and the patient did not perform the activity before the current illness, exacerbation or injury. 10-Not Attempted due to Environmental Limitations-(lack of equipment, weather restraints, etc.). 88-Not Attempted due to Medical Conditions or Safety Concerns. Roll Left to Right (QC): 6 Sit to Lying (QC): 6 Sit to Stand (QC): 4 Chair/Mhm-ua-Mszwp Xfer(QC): 4 Car Transfer (QC): 3 Gait Training Does the Patient Walk?: Yes Distance: 50, 56, 106 Walk 10 feet (QC): 4 Walk 50 ft with 2 Turns(QC): 4 Walk 150 ft (QC): 88 Walking 10ft/uneven surface-QC: 88 Gait Persons Needed: 1 Gait Assistive Device: FWW Wheelchair Training Does the Pt Use a Wheelchair?: Yes Distance: 5' Wheel 50 ft with 2 turns (QC): 75 Wheel 150 ft (QC): 5 Type of Wheelchair: Manual Stair Training 1 Step (curb) (QC): 88 4 Steps (QC): 88 12 Steps (QC): 9 Balance Picking up an Object (QC): 88 ADL-Treatment Oral Hygiene (QC): 7 Shower/Bathe Self (QC): 3 Upper Body Dressing (QC): 2 Lower Body Dressing (QC): 2 On/Off Footwear (QC): 3 Toileting Hygiene (QC): 3 (Pt able to reach bottom/ cleanse self, states diminished sensation in R hand to be able to discriminate where hand is placed. Pt requires mod A for thoroughness, pt's balance fair in stance.) Toilet Transfer (QC): 7 Assessment/Plan Assessment and Plan Assess & Plan/Chief Complaint Assessment: Debility Bilateral bibasilar PNA placed on Vanc and Meropenem and Diflucan and moved to ICU x 2 days now DC abx h/o septic shock 08/2019 s/p central cervical spinal cord syndrome resulting in chronic debility and weakness s/p decompression per [facility] NSG h/o UTI CAD s/p stents 12/18/19 Dr Lovelace after cardiac arrest Ischemic cardiomyopathy previous Lifevest worn Tendency for volume overload Chronic edema Bipolar disorder Urinary retention now resolved cysto normal Plan: Home meds Appreciate cardiology and pulmonology and urology Monitor volume status Inpatient rehabilitation protocol Abx completed DC? (1) Central cord syndrome (2) Spinal cord compression (3) Former smoker (4) Bipolar disorder (5) Delirium (6) Edema (7) Wheelchair bound (8) DAISY on CPAP (9) CAD (coronary artery disease) (10) CHF (congestive heart failure) (11) UTI (urinary tract infection) (12) Debility Status: Acute (13) Sacral pressure ulcer MANPREET SPENCER DO Jan 05, 2020 08:35
--- NOTE | 2020-01-05 08:46 | Cardiology Progress Note ---
Subjective Date Seen by Provider: Jan 05, 2020 Time Seen by Provider: 08:44 Subjective/Events-last exam Patient with PT, denies any chest pain, dizziness or lightheadedness. Objective-Cardiology Exam Last Set of Vital Signs Vital Signs 01/01/20 01/05/20 20:30 05:44 Temp 36.6 Pulse 84 Resp 20 B/P (MAP) 136/76 (96) Pulse Ox 95 O2 Delivery Room Air O2 Flow Rate 2.00 Capillary Refill : Less Than 3 Seconds I&O Intake and Output 01/05/20 00:00 Intake Total 1591 ml Balance 1591 ml Intake Oral 1591 ml # Voids 9 # Bowel Movements 1 General: Alert, Oriented X3, Cooperative HEENT: Atraumatic, PERRLA Neck: Supple, No JVD, No Thyromegaly Lungs: Clear to Auscultation, Normal Air Movement Heart: Regular Rate, Normal S1, Normal S2, No Murmurs Abdomen: Normal Bowel Sounds, Soft, No Tenderness, No Hepatosplenomegaly, No Masses Extremities: Other (trace edema BLE) Skin: No Rashes, No Significant Lesion Neuro: Normal Speech Results Lab Laboratory Tests 01/05/20 06:35 A/P-Cardiology Admission Diagnosis CAD Acute respiratory failure CHF elevated troponin, type II [place] Assessment/Plan Coronary artery disease, history of cardiac catheterization with stenting in July 2009 and then another cardiac catheterization with 3 stents done earlier this month, continue on aspirin and Plavix without interruption. Hypotension- improved, tolerating medications well. Continue to monitor. Status post acute respiratory failure, currently back to baseline, having shortness of breath. Continue to monitor Congestive heart failure, chronic compensated left ventricular systolic dysfunction, ischemic cardiomyopathy, echocardiogram showed ejection fraction 40-45 percent which is significant improvement compared to the previous study. Maintained on beta maximo, ARB, continue to monitor. Mild elevation in troponin, probably type II [place] secondary to hypoxemia and hypotension, trending down. Continue to monitor Status post C-spine surgery, recovering slowly Hyperlipidemia maintained on Lipitor Bipolar disorder, managed by primary care physician Patient was seen and evaluated with Viola, examination performed, management plan was discussed, agree with the current scribed note, I made few changes to the note using Italic font Patient was sitting comfortably, feeling better, no new complaint Continue on current medication monitor blood pressure and lipids, no changes are recommended Clinical Quality Measures DVT/VTE Risk/Contraindication: Risk Factor Score Per Nursin RFS Level Per Nursing on Admit: 4+=Very High [facility] NGO Jan 05, 2020 8:46 am ALINA GREGG MD Jan 05, 2020 9:51 am
--- NOTE | 2020-01-05 09:22 | Occupational Ther Daily Note ---
OT Current Status-Daily Note Subjective Pt alert, sitting in recliner. Pt agrees to therapy. Pt c/o issues with respiratory this weekend. Stated that he wanted to go home or Sunday. No c/o pain. Mental Status/Objective Patient Orientation: Person, Place, Time, Situation Attachments: IV, Other-See Comments (midline) ADL-Treatment Pt declines sponge bath or shower. Agrees to complete oral care and grooming sitting at sink. Pt declined changing clothing. Did work on doffing/donning own socks and shoes. Min A to don/doff shirt due to decreased B shldr ROM. Discussed using toilet tongs to cleanse after BM, pt declined attempting at this time. Pt will attempt when the need arises. After therapy, pt sitting in recliner with call light/phone in reach. present in room. All needs met in room. Therapy Code Descriptions/Definitions Functional [place] Measure: 0=Not Assessed/NA 4=Minimal Assistance 1=Total Assistance 5=Supervision or Setup 2=Maximal Assistance 6=Modified [place] 3=Moderate Assistance 7=Complete IndependenceSCALE: Activities may be completed with or without assistive devices. 3-Dwkczojrlk-hxhdwwe completes the activity by him/herself with no assistance from a helper. 5-Set-up or Clean-up Assistance-helper sets up or cleans up; patient completes activity. [place] assists only prior to or following the activity. 4-Supervision or Touching Assistance-helper provides verbal cues and/or touc stuart/steadying and/or contact guard assistance as patient completes activity. Assistance may be provided throughout the activity or intermittently. 3-Partial/Moderate Assistance-helper does LESS THAN HALF the effort. [place] lifts, holds or supports trunk or limbs, but provides less than half the effort. 2-Substantial/Maximal Assistance-helper does MORE THAN HALF the effort. [place] lifts or holds trunk or limbs and provides more than half the effort. 5-Udkxozdkb-tnmfym does ALL the effort. Patient does none of the effort to complete the activity. Or, the assistance of 2 or more helpers is required for the patient to complete the activity. If activity was not attempted, code reason: 7-Patient Refused. 9-Not Applicable-not attempted and the patient did not perform the activity before the current illness, exacerbation or injury. 10-Not Attempted due to Environmental Limitations-(lack of equipment, weather restraints, etc.). 88-Not Attempted due to Medical Conditions or Safety Concerns. Oral Hygiene (QC): 6 Upper Body Dressing (QC): 3 On/Off Footwear: 4 (supervision) OT Short Term Goals Short Term Goals Time Frame: Jan 09, 2020 Eatin Oral hygiene: 4 Toileting hygiene: 3 Shower/bathe self: 3 Upper body dressin Lower body dressin OT Phone Operator Goals Phone Operator Goals Time Frame: Jan 23, 2020 Eating (QC): 5 Oral Hygiene (QC): 5 Toileting Hygiene (QC): 4 Shower/Bathe Self (QC): 4 Upper Body Dressing (QC): 5 Lower Body Dressing (QC): 5 On/Off Footwear (QC): 5 Additional Goals: 1-Demonstrate ADL Tasks, 2-Verbalize Understanding, 3-ImproveStrength/Melva 1=Demonstrate adherence to instructed precautions during ADL tasks. 2=Patient will verbalize/demonstrate understanding of assistive devices/modifications for ADL. 3=Patient will improve strength/tolerance for activity to enable patient to perform ADL's. OT Education/Plan Problem List/Assessment Assessment: Decreased Activ Tolerance, Decreased UE Strength, Impaired Self- Care Skills, Restricted Funct UE ROM Discharge Recommendations Plan/Recommendations: Continue POC Treatment Plan/Plan of Care Patient would benefit from OT for education, treatment and training to promote independence in ADL's, mobility, safety and/or upper extremity function for ADL's. Plan of Care: ADL Retraining, Functional Mobility, Group Exercise/Act as Ind, UE Funct Exercise/Act, UE Neuromus Re-Ed/Coord Treatment Duration: Jan 23, 2020 Frequency: At least 5 of 7 days/Wk (IRF) Estimated Hrs Per Day: 1.5 hours per day Agreement: Yes Rehab Potential: Fair Time/GCodes Start Time: 09:00 Stop Time: 10:00 Total Time Billed (hr/min): 60 Billed Treatment Time 1 visit-ADL 4 (60 min) TEDDY HAWKINS Jan 05, 2020 09:22
[2020-01-05] MEDS: DIVALPROEX 500 MG DELAYED RELEASE (DEPAKOTE) TAB PO SCH ×2 (10:18→20:20)
[2020-01-05] MEDS: ASPIRIN 81 MG CHEW (CHILDREN'S ASA) PO SCH (10:18)
[2020-01-05] MEDS: PANTOPRAZOLE 40 MG (PROTONIX) TAB PO SCH (10:19)
[2020-01-05] MEDS: AMIODARONE 200 MG (CORDARONE) TAB PO SCH ×2 (10:19→20:20)
[2020-01-05] MEDS: SENNA W/DOCUSATE (SENOKOT S) TABLET PO SCH ×2 (10:19→20:21)
[2020-01-05] MEDS: PREGABALIN 150 MG (LYRICA) CAPSULE PO SCH ×2 (10:19→20:20)
[2020-01-05] MEDS: LOSARTAN 25 MG (COZAAR) TAB PO SCH (10:19)
[2020-01-05] MEDS: CARVEDILOL 3.125 MG (COREG) TABLET PO SCH ×2 (10:19→20:21)
[2020-01-05] MEDS: CLOPIDOGREL 75 MG (PLAVIX) TABLET PO SCH (10:19)
[2020-01-05] MEDS: polyethylene glycoL POWDER 17 GM (MIRALAX) PACK PO SCH ×2 (10:20→20:21)
[2020-01-05] MEDS: SERTRALINE 100 MG (ZOLOFT) TAB PO SCH (10:20)
[2020-01-05] MEDS: VRAYLAR 1.5 MG CAPSULE PO SCH (10:20)
[2020-01-05] MEDS: ZINC OXIDE 16% OINT (BUTT PASTE) 113 GM TUBE TOP SCH ×2 (10:21→20:21)
[2020-01-05] MEDS: rOPINIRole 0.25 MG (REQUIP) TAB PO SCH (10:24)
--- NOTE | 2020-01-05 12:39 | Speech Therapy Daily Note ---
Speech Daily Progress Note Subjective Date Seen by Provider: Jan 05, 2020 Time Seen by Provider: 11:45 Patient was alert, upbeat, and cooperative for all therapy tasks. Patient reported that he was doing well with his mechanical soft diet, however some of the food was unappetizing. Patient sat upright in his chair for the duration of treatment Objective Patient completed compensatory strategies of small bites and small sips and slowing down intake at 90% with moderate cues. Patient will be upgraded to a REGULAR diet with thin liquids. Assessment Assessment Current Status: Good Progress Treatment Plan Continue Plan of Care Speech Short Term Goals Short Term Goals Short Term Goals 1. Patient will tolerate least restrictive diet without s/s of aspiration at 90% or greater. 2. Patient/caregiver will utilize compensatory strategies as trained at 90% with minimal cues. Speech [employer] Goals Long-Term Goals Patient will maintain adequate nutrition/hydration via safe and effective swallow function. Speech-Plan Patient/Family Goals Patient/Family Goals: Patient reported that he would like to return to prior level of independence and mobility. Treatment Plan Speech Therapy Treatment Plan: Continue Plan of Care Treatment Duration: Jan 09, 2020 Frequency: 4 times per week (4-5x per week) Estimated Hrs Per Day: .5 hour per day Rehab Potential: Fair Barriers to Learning: Current medical status Pt/Family Agrees to Plan: Yes Safety Risks/Education Teaching Recipient: Patient Teaching Methods: Demonstration Response to Teaching: Verbalize Understanding Education Topics Provided: Continued utilization of compensatory strategies during all oral intake. Time Speech Therapy Time In: 11:45 Speech Therapy Time Out: 12:15 Total Billed Time: 30 Billed Treatment Time 1, DYST ISRA Evangelista Jan 05, 2020 12:39
[2020-01-05] MEDS: CYCLOBENZAPRINE 10 MG (FLEXERIL) TAB PO PRN (14:10)
--- NOTE | 2020-01-05 14:29 | Therapy Group Daily Note ---
Therapy Daily Group Note Patient Education Topic Other List Below (transfers) Exercises LE Seated Exercise, Fine Motor Session Ratio (pt:therapist): 3:1 Goal of Session: Home Safety Strategies, UE/LE Strengthing, Safety with Transfers Goal Met for this Session: Yes Pt Benefit of Group: Contributions to Others, F/U Use of Strategies @Home, Increased Functional Safety, Increased Functional Strength, Improved Cognition, Recognition of Peers, Socialization Other/Notes Pt ambulated using FWW to [facility] for OT/PT group. Group consisted of introductions (name, place living, what makes you smile), socialization, seat UE/LE exercises and education on types of transfers throughout the home. Pt introduced self appropriately and actively listened to peers. Pt was able to complete UE/LE seated exercises with minimal modifications due to decreased ROM. Pt acknowledged understanding of educational topics by giving own personal strategies and experiences. After therapy, pt lying in bed with call light/phone in reach. All needs met in room. Start Time: 13:00 Stop Time: 14:10 Total Billed Treatment Time: 70 Total Billed Treatment 1-GRP TEDDY HAWKINS Jan 05, 2020 14:29
[2020-01-05 16:00] VITALS: BP 96/72
[2020-01-05] MEDS: ENOXAPARIN 40 MG/0.4 ML (LOVENOX) SYR SC SCH (17:14)
[2020-01-05] MEDS: TAMSULOSIN 0.4 MG (FLOMAX) CAP PO SCH (17:14)
--- OUTSIDE RECORDS SUMMARY | 2020-01-05 17:38 | XMS REPORT ---
Author Author Porfirio ESCALANTE Organization [facility] Address [address] [place] [address] Care Team Providers Care Walking Dragline Operator Name Role Phone KUN ESCALANTE Unavailable PROBLEMS Type Condition ICD9-CM Code OYQ15-MP Code Onset Dates Condition S tatus SNOMED Code Problem Hypertriglyceridemia E78.1 Active 623636390 Problem Lumbago with sciatica, right side M54.41 Active 387197823 Problem Muscle pain M79.1 Active 24752001 Problem GERD (gastroesophageal reflux disease) K21.9 Active 289303216 Problem Neuropathy G62.9 Active 375092392 Problem Diabetes E11.9 Active 482573612 Problem Type 2 diabetes mellitus with complication E11.8 Active 61044648 Problem Bipolar I disorder, moderate , current or most recent episode depressed, with anxious distress F31.32 Active 979865 06 Problem Coronary artery disease invo lving [place] coronary artery of [place] heart without angina pectoris I25.10 Active 1641 214774642 Problem Restless leg syndrome G25.81 Active 41771096 Problem Stage II pressure ulcer of left buttock L89.322 Active 066457431 ALLERGIES No Information ENCOUNTERS Encounter Location Date Diagnosis [place] [id number] [place] [address] 28 Dec, 2019 [facility] [id number] [place] [address] Dec, [place] [id number] [place] [address] 24 Nov, 2019 Spinal stenosis of cervical region M48.0 2 [place] [id number] [place] [address] 16 Nov, 2019 Lumbar back pain with radiculopathy affe cting right lower extremity M54.16 [place] [address] [address] 15 Nov, 2019 [facility] [address] [address] 15 Nov, 2019 [facility] [address] [address] 13 Nov, 2019 Type 2 diabetes mellitus with complicati on E11.8 [facility] [address] [address] 09 Nov, 2019 [facility] [address] [address] Oct, Spinal stenosis of cervical region M48.0 2 [facility] [address] [address] Oct, [facility] [address] [address] Oct, Spinal stenosis of cervical region M48.0 2 [place] [address] [address] Oct, [facility] [address] [address] Oct, Restless leg syndrome G25.81 and Bipolar I disorder, moderate, current or most recent episode depressed, with anxious distress F31.32 [place] [address] [address] Oct, [facility] [address] [address] Oct, Coronary artery disease involving [place] coronary artery of [place] heart without angina pectoris I25.10 ; GERD (gastroesophageal reflux disease) K21.9 and Diabetes E11.9 [place] [address] [address] Sep, [facility] [address] [address] Sep, [place] [address] [address] Sep, [facility] [address] [address] Sep, Spinal stenosis of cervical region M48.0 2 [facility] [address] [address] Sep, [facility] [address] [address] Sep, Spinal stenosis of cervical region M48.0 2 ; Lumbago with sciatica, right side M54.41 ; Type 2 diabetes mellitus with complication E11.8 and Stage II pressure ulcer of left buttock L89.322 [facility] [address] [address] Aug, Bipolar I disorder, moderate, current or most recent episode depressed, with anxious distress F31.32 and Restless leg syndrome G25.81 [facility] [address] [address] Aug, [facility] [address] [address] Aug, [facility] [address] [address] Aug, [facility] [address] [address] Aug, [facility] [address] [address] Aug, [facility] [address] [address] Aug, Spinal stenosis in cervical region M48.0 2 [facility] [address] [address] Jul, Bipolar I disorder, moderate, current or most recent episode depressed, with anxious distress F31.32 [facility] [address] [address] Jul, Bipolar I disorder, moderate, current or most recent episode depressed, with anxious distress F31.32 [facility] [address] [address] 18 Jul, 2019 Type 2 diabetes mellitus with complicati on E11.8 ; Coronary artery disease involving [place] coronary artery of [place] heart without angina pectoris I25.10 ; Bipolar I disorder, moderate, current or most recent episode depressed, with anxious distress F31.32 ; Localized edema R60.0 ; Financial difficulties Z59.8 and Spinal stenosis in cervical region M48.02 [facility] [address] [address] Jul, [facility] [address] [address] Jul, [place] [address] [address] Jul, [place] [address] [address] Jul, [place] [address] [address] Jun, Spinal stenosis of cervical region M48.0 2 ; Fall with injury, subsequent encounter W19.XXXD ; Spinal stenosis of lumbar region with neurogenic claudication M48.062 ; Contusion of left eyebrow, subsequent encounter S00.12XD and Type 2 diabetes mellitus with complication E11.8 [place] [address] [address] Jun, Bipolar I disorder, moderate, current or most recent episode depressed, with anxious distress F31.32 [facility] [address] [address] Jun, [facility] [address] [address] Jun, [facility] [address] [address] Jun, [facility] [address] [address] Jun, [place] [id number] [place] [address] May, [facility] [address] [address] May, Lumbar back pain with radiculopathy affe cting right lower extremity M54.16 ; Cervicalgia M54.2 ; History of streptococcal infection Z86.19 ; Hypertriglyceridemia E78.1 ; Bipolar 1 disorder F31.9 and Does not have health insurance Z59.8 [facility] [address] [address] May, Radiculopathy of arm M54.10 [place] [address] [address] May, [facility] [address] [facility] [id number] [address] [place] [address] May, Fever R50.9 [place] [address] [address] May, [facility] [address] [address] March, Type 2 diabetes mellitus with complicati on E11.8 [place] [address] [address] March, Patellar tendinitis, right knee M76.51 [place] [address] [address] March, Radiculopathy of arm M54.10 [place] [address] [address] March, [place] [address] [address] March, Type 2 diabetes mellitus with complicati on E11.8 ; Hoarseness of voice R49.0 and Acute pain of right knee M25.561 [place] [address] [address] March, [place] [address] [address] March, [place] [address] [address] Feb, Bipolar 1 disorder F31.9 [place] [address] [address] Feb, Bipolar 1 disorder F31.9 [place] [address] [address] Jan, [place] [address] [address] Dec, Type 2 diabetes mellitus with complicati on E11.8 [place] [address] [address] Dec, Acute non-recurrent maxillary sinusitis J01.00 [place] [address] [address] Nov, Bipolar 1 disorder F31.9 ; Rash R21 ; Ac celsa non-recurrent maxillary sinusitis J01.00 and Type 2 diabetes mellitus with complication E11.8 [place] [address] [address] Oct, Hypertriglyceridemia E78.1 [place] [address] [address] 10 Oct, 2018 Type 2 diabetes mellitus with complicati on E11.8 and Fatigue due to excessive exertion, initial encounter T73.3XXA [place] [address] [address] Oct, [place] [address] [address] Sep, [place] [address] [address] Sep, Radiculopathy of arm M54.10 [place] [address] [address] Sep, [facility] [address] [id number] [place] [address] May, [facility] [id number] [place] [address] May, Radiculopathy of arm M54.10 [facility] [id number] [place] [address] May, [facility] [id number] [place] [address] May, [facility] [id number] [place] [address] May, Radiculopathy of arm M54.10 [facility] [id number] [place] [address] Apr, Radiculopathy of arm M54.10 [facility] [id number] [place] [address] March, Radiculopathy of arm M54.10 [facility] [id number] [place] [address] March, Radiculopathy of arm M54.10 [facility] [id number] [place] [address] March, Radiculopathy of arm M54.10 [facility] [id number] [place] [address] March, Type 2 diabetes mellitus with complicati on E11.8 ; Radiculopathy of arm M54.10 and Muscle pain M79.1 [facility] [id number] [place] [address] Feb, Muscle pain M79.1 [facility] [id number] [place] [address] Jan, Type 2 diabetes mellitus with complicati on E11.8 [facility] [id number] [place] [address] Jan, [facility] [id number] [place] [address] Dec, Muscle pain M79.1 [place] [address] [address] Nov, Muscle pain M79.1 and Acute pain of righ t shoulder M25.511 [place] [address] [address] Nov, [place] [address] [address] Nov, [place] [address] [address] Nov, Type 2 diabetes mellitus with complicati on E11.8 [place] [address] [address] Nov, Impingement syndrome of left shoulder M7 5.42 and Impingement syndrome of right shoulder M75.41 [place] [address] [address] Oct, Type 2 diabetes mellitus with complicati on E11.8 ; Acute pain of right shoulder M25.511 ; Abscess of finger of right hand L02.511 and Umbilical hernia without obstruction and without gangrene K42.9 [place] [id number] [place] [address] Oct, [facility] [address] [facility] [id number] [place] [address] Oct, Mucoid otitis media, unspeci fied chronicity, unspecified laterality H65.90 and Abscess of finger of right hand L02.511 [place] [id number] [place] [address] Oct, [facility] [address] [address] Sep, [facility] [address] [address] Aug, [place] [address] [address] 14 Jul, 2017 Sprain of right acromioclavicular ligame nt, initial encounter S43.51XA ; Impingement syndrome of left shoulder M75.42 and Impingement syndrome of right shoulder M75.41 [place] [address] [address] 14 Jul, 2017 Type 2 diabetes mellitus with complicati on E11.8 [place] [address] [address] Jun, [place] [address] [address] Jun, Type 2 diabetes mellitus with complicati on E11.8 ; Lumbago with sciatica, right side M54.41 ; 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 and Pain in left shoulder M25.512 [place] [address] [address] May, [place] [address] [address] May, [place] [address] [address] Apr, Lumbago with sciatica, right side M54.41 and Neck pain on left side M54.2 [place] [address] [address] Apr, [place] [address] [address] Apr, [place] [address] [address] March, [place] [address] [address] March, [place] [address] [address] Feb, Acute pain of right shoulder M25.511 [facility] [address] [address] Feb, [facility] [address] [address] Feb, [facility] [address] [address] Feb, Type 2 diabetes mellitus with complicati on E11.8 ; Neuropathy G62.9 and Acute pain of right shoulder M25.511 [place] [address] [address] Dec, Type 2 diabetes mellitus with complicati on E11.8 [place] [address] [address] Nov, [place] [address] [address] Oct, Arthrosis of right acromioclavicular echo nt M19.011 [place] [address] [address] Oct, Type 2 diabetes mellitus with complicati on E11.8 [place] [address] [address] Sep, Type 2 diabetes mellitus with complicati on E11.8 ; Acute pain of right shoulder M25.511 and Prostate cancer screening Z12.5 [place] [address] [address] Sep, [place] [address] [address] Jun, [facility] [address] [address] Jun, Muscle tension headache G44.209 and Brux ism F45.8 [facility] [address] [address] May, Type 2 diabetes mellitus with complicati on E11.8 ; Erectile dysfunction, unspecified erectile dysfunction type N52.9 and Neuropathy G62.9 [facility] [address] [address] 13 Feb, 2016 [facility] [address] [address] Feb, Type 2 diabetes mellitus with complicati on E11.8 [facility] [address] [address] Dec, [facility] [address] [address] Dec, Type 2 diabetes mellitus with complicati on E11.8 [facility] [address] [address] Nov, Nausea and vomiting, unspecified intacta bility, vomiting of unspecified type R11.2 [place] [address] [address] Oct, Neuropathy G62.9 and Type 2 diabetes kermit litus with complication E11.8 [facility] [address] [address] Sep, [facility] [address] [address] Sep, [facility] [address] [address] Sep, Diabetes E11.9 [facility] [address] [address] Sep, [facility] [address] [address] Jul, [facility] [address] [address] Jun, [facility] [address] [address] Jun, Secondary diabetes mellitus with neurolo gical manifestations, not stated as uncontrolled, or unspecified 249.60 ; Other chronic pain 338.29 and Puncture wound 879.8 [facility] [id number] [place] [address] May, [facility] [id number] [place] [address] Apr, [facility] [id number] [place] [address] March, [facility] [place] [facility] [id number] [place] [address] Feb, [facility] [place] [facility] [id number] [place] [address] Feb, [facility] [place] [facility] [id number] [place] [address] Jan, [facility] [place] [facility] [id number] [place] [address] Jan, [facility] [id number] [place] [address] Jan, [facility] [place] [facility] [id number] [place] [address] Jan, [facility] [place] [facility] [id number] [place] [address] Jan, [facility] [id number] [place] [address] Jan, [facility] [place] [facility] [id number] [place] [address] Jan, [facility] [place] [facility] [id number] [place] [address] Jan, [facility] [place] [facility] [id number] [place] [address] Dec, [facility] [place] [facility] [id number] [place] [address] Dec, [facility] [place] [facility] [id number] [place] [address] Nov, [facility] [place] [facility] [address] [id number] [place] [address] Nov, [facility] [place] [facility] [address] [id number] [place] [address] Nov, [facility] [place] [facility] [address] [id number] [place] [address] Nov, [facility] [place] [facility] [address] [id number] [place] [address] Nov, [facility] [place] [facility] [address] [id number] [place] [address] Nov, [facility] [place] [facility] [address] [id number] [place] [address] Oct, [facility] [place] [facility] [address] [id number] [place] [address] Oct, [facility] [place] [facility] [address] [id number] [place] [address] Oct, [facility] [place] [facility] [address] [id number] [place] [address] Oct, [facility] [place] [facility] [address] [id number] [place] [address] Oct, [facility] [place] [facility] [address] [id number] [place] [address] Oct, [facility] [place] [facility] [address] [id number] [place] [address] Oct, [facility] [place] [facility] [address] [id number] [place] [address] Oct, [facility] [place] [facility] [address] [id number] [place] [address] Oct, [facility] [place] [facility] [address] [id number] [place] [address] Sep, [facility] [place] [facility] [address] [id number] [place] [address] Sep, [facility] [place] [facility] [address] [id number] [place] [address] Sep, [facility] [place] [facility] [address] [id number] [place] [address] Sep, [facility] [place] [facility] [address] [id number] [place] [address] Sep, [facility] [place] [facility] [address] [id number] [place] [address] Sep, [facility] [place] [facility] [address] [id number] [place] [address] Sep, [facility] [place] [facility] [address] [facility] [id number] [place] [address] Aug, [facility] [place] [facility] [address] [id number] [place] [address] Aug, [facility] [place] [facility] [address] [id number] [place] [address] 16 Aug, 2014 [facility] [place] [facility] [address] [id number] [place] [address] 16 Aug, 2014 [facility] [place] [facility] [address] [id number] [place] [address] 14 Aug, 2014 [facility] [place] [facility] [address] [id number] [place] [address] 14 Aug, 2014 [facility] [place] [facility] [address] [id number] [place] [address] 26 Jul, 2013 [facility] [place] [facility] [address] [id number] [place] [address] 25 Jul, 2013 [facility] [place] [facility] [address] [id number] [place] [address] 25 Jul, 2013 [facility] [place] [facility] [address] [id number] [place] [address] 25 Jul, 2013 [facility] [place] [facility] [address] [id number] [place] [address] 25 Jul, 2013 [facility] [place] [facility] [address] [id number] [place] [address] 19 Jul, 2013 [facility] [place] [facility] [address] [id number] [place] [address] Jul, 2013 [facility] [place] [facility] [address] [id number] [place] [address] Jul, [facility] [place] [facility] [address] [facility] [id number] [facility] [place] [address] Jul, [facility] [place] [facility] [address] [facility] [id number] [facility] [place] [address] Jul, [facility] [place] [facility] [address] [facility] [id number] [facility] [place] [address] Jun, [facility] [place] [facility] [address] [facility] [id number] [place] [address] Jun, [facility] [place] [facility] [address] [facility] [id number] [place] [address] Jun, [facility] [place] [facility] [address] [id number] [place] [address] Jun, [facility] [place] [facility] [address] [id number] [place] [address] Jun, [facility] [place] [facility] [address] [facility] [id number] [facility] [place] [address] Jun, [facility] [place] [facility] [address] [id number] [place] [address] Jun, [facility] [place] [facility] [address] [id number] [place] [address] Jun, [facility] [place] [facility] [address] [id number] [facility] [place] [address] May, [facility] [place] [facility] [address] [id number] [facility] [place] [address] May, [facility] [place] [facility] [address] [id number] [place] [address] May, [facility] [place] [facility] [address] [facility] [id number] [place] [address] May, [facility] [place] [facility] [address] [id number] [place] [address] May, [facility] [place] [facility] [address] [id number] [facility] [place] [address] May, [facility] [place] [facility] [address] [facility] [id number] [place] [address] May, [facility] [place] [facility] [address] [facility] [id number] [place] [address] May, [facility] [place] [facility] [address] [id number] [place] [address] May, [facility] [place] [facility] [address] [facility] [id number] [place] [address] May, [facility] [place] [facility] [address] [facility] [id number] [place] [address] May, [facility] [place] [facility] [address] [id number] [place] [address] May, [facility] [place] [facility] [address] [id number] [place] [address] May, [facility] [place] [facility] [address] [id number] [place] [address] Apr, [facility] [place] [facility] [address] [facility] [id number] [place] [address] Apr, [facility] [place] [facility] [address] [id number] [place] [address] Apr, [facility] [place] [facility] [address] [id number] [place] [address] Apr, [facility] [place] [facility] [address] [id number] [place] [address] Apr, [facility] [place] [facility] [address] [facility] [id number] [place] [address] Apr, [facility] [place] [facility] [address] [id number] [place] [address] March, [facility] [place] [facility] [address] [id number] [place] [address] March, [facility] [place] [facility] [address] [id number] [place] [address] March, [facility] [place] [facility] [address] [facility] [id number] [place] [address] 30 Feb, 2014 [facility] [place] [facility] [address] [facility] [id number] [facility] [place] [address] 24 Feb, 2014 [facility] [place] [facility] [address] [id number] [place] [address] Feb, [facility] [place] [facility] [address] [id number] [facility] [place] [address] Feb, [facility] [place] [facility] [address] [facility] [id number] [place] [address] Feb, [facility] [place] [facility] [address] [id number] [place] [address] Feb, [facility] [place] [facility] [address] [facility] [id number] [place] [address] Feb, [facility] [address] [id number] [place] [address] Feb, [facility] [address] [id number] [place] [address] Feb, [facility] [address] [id number] [place] [address] Feb, [facility] [address] [id number] [place] [address] Feb, [facility] [address] [id number] [place] [address] Jan, [facility] [address] [id number] [place] [address] Jan, [facility] [address] [id number] [place] [address] Jan, [facility] [address] [id number] [place] [address] Jan, [facility] [address] [id number] [place] [address] Jan, [facility] [address] [id number] [place] [address] Jan, [facility] [address] [facility] [id number] [place] [address] Dec, [facility] [address] [id number] [place] [address] Dec, [facility] [address] [id number] [place] [address] Dec, [facility] [address] [id number] [place] [address] Dec, [facility] [address] [id number] [place] [address] Nov, [facility] [address] [id number] [place] [address] Nov, [facility] [address] [id number] [place] [address] Nov, [facility] [address] [id number] [place] [address] Nov, [facility] [address] [id number] [place] [address] Nov, [facility] [address] [id number] [place] [address] Nov, [facility] [address] [id number] [place] [address] Oct, [facility] [address] [id number] [place] [address] Oct, [facility] [address] [id number] [place] [address] 05 Oct, 2013 [facility] [address] [id number] [place] [address] 05 Oct, 2013 [facility] [address] [id number] [place] [address] Oct, [facility] [address] [id number] [place] [address] Oct, [facility] [address] [id number] [place] [address] Sep, [facility] [address] [id number] [place] [address] Sep, [facility] [address] [id number] [place] [address] Sep, [facility] [address] [id number] [place] [address] Sep, [facility] [address] [id number] [place] [address] Sep, [facility] [address] [id number] [place] [address] Sep, [facility] [address] [id number] [place] [address] Aug, [facility] [address] [id number] [place] [address] Aug, [facility] [address] [id number] [place] [address] Aug, [facility] [address] [id number] [place] [address] Aug, [facility] [address] [id number] [place] [address] Jul, [facility] [address] [id number] [place] [address] Jul, [facility] [address] [id number] [place] [address] Jun, [facility] [address] [id number] [place] [address] Jun, [facility] [address] [id number] [place] [address] May, [facility] [address] [id number] [place] [address] May, [facility] [address] [id number] [place] [address] May, [facility] [address] [id number] [place] [address] May, [facility] [address] [id number] [place] [address] May, [facility] [address] [id number] [place] [address] May, [facility] [address] [id number] [place] [address] Apr, [facility] [address] [id number] [place] [address] Apr, [facility] [address] [id number] [place] [address] Apr, [facility] [address] [id number] [place] [address] Apr, [facility] [address] [id number] [place] [address] March, [facility] [address] [id number] [place] [address] March, [facility] [address] [id number] [place] [address] March, [facility] [address] [id number] [place] [address] Feb, [facility] [address] [id number] [place] [address] Feb, [facility] [address] [id number] [place] [address] Jan, [facility] [address] [id number] [place] [address] Dec, [facility] [address] [id number] [place] [address] Dec, [facility] [address] [id number] [place] [address] Dec, [facility] [address] [id number] [place] [address] Dec, [facility] [address] [id number] [place] [address] Dec, [facility] [address] [id number] [place] [address] Nov, [facility] [address] [id number] [place] [address] Nov, [facility] [address] [id number] [place] [address] Nov, [facility] [address] [id number] [place] [address] Nov, [facility] [address] [id number] [place] [address] Nov, [facility] [address] [id number] [place] [address] Oct, [facility] [address] [id number] [place] [address] Oct, [facility] [address] [id number] [place] [address] Oct, [facility] [address] [id number] [place] [address] Oct, [facility] [address] [id number] [place] [address] Sep, [facility] [address] [id number] [place] [address] Sep, [facility] [address] [id number] [place] [address] Sep, [facility] [id number] [place] [address] Sep, [facility] [address] [id number] [place] [address] Sep, [facility] [address] [id number] [place] [address] Sep, [facility] [address] [id number] [place] [address] Sep, [facility] [address] [id number] [place] [address] Sep, [facility] [address] [id number] [place] [address] Sep, [facility] [address] [id number] [place] [address] Sep, [facility] [address] [id number] [place] [address] Aug, [facility] [address] [id number] [place] [address] Aug, [facility] [address] [id number] [place] [address] Aug, [facility] [id number] [place] [address] Aug, [facility] [address] [id number] [place] [address] Aug, [facility] [address] [id number] [place] [address] Aug, [facility] [address] [id number] [place] [address] Jul, [facility] [address] [id number] [place] [address] Jun, [facility] [address] [id number] [place] [address] Apr, [facility] [address] [id number] [place] [address] Apr, [facility] [address] [id number] [place] [address] Apr, [facility] [address] [id number] [place] [address] Apr, [facility] [address] [id number] [place] [address] March, [facility] [address] [id number] [place] [address] March, [facility] [address] [id number] [place] [address] March, [facility] [address] [id number] [place] [address] March, [facility] [address] [id number] [place] [address] March, [facility] [address] [id number] [place] [address] Feb, [facility] [address] [id number] [place] [address] Feb, [facility] [address] [id number] [place] [address] Feb, [facility] [address] [id number] [place] [address] Feb, [facility] [address] [id number] [place] [address] Jan, [facility] [address] [id number] [place] [address] Jan, [facility] [address] [id number] [place] [address] Jan, [facility] [address] [id number] [place] [address] Dec, [facility] [address] [id number] [place] [address] 15 Dec, 2011 [facility] [address] [id number] [place] [address] 14 Dec, 2011 [facility] [address] [id number] [place] [address] 08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
--- OUTSIDE RECORDS SUMMARY | 2020-01-05 17:38 | XMS REPORT ---
Author Author Porfirio ESCALANTE Organization [facility] Address [address] [place] [address] Care Team Providers Care Budget Director Name Role Phone KUN ESCALANTE Unavailable PROBLEMS Type Condition ICD9-CM Code HBM36-ON Code Onset Dates Condition S tatus SNOMED Code Problem Hypertriglyceridemia E78.1 Active 933521632 Problem Lumbago with sciatica, right side M54.41 Active 311530595 Problem Muscle pain M79.1 Active 59387330 Problem GERD (gastroesophageal reflux disease) K21.9 Active 139655765 Problem Neuropathy G62.9 Active 676041735 Problem Diabetes E11.9 Active 447171644 Problem Type 2 diabetes mellitus with complication E11.8 Active 57311533 Problem Bipolar I disorder, moderate , current or most recent episode depressed, with anxious distress F31.32 Active 493156 06 Problem Coronary artery disease invo lving [place] coronary artery of [place] heart without angina pectoris I25.10 Active 1641 910079698 Problem Restless leg syndrome G25.81 Active 03701523 Problem Stage II pressure ulcer of left buttock L89.322 Active [id number] ALLERGIES No Information ENCOUNTERS Encounter Location Date Diagnosis [facility] [id number] [place] [address] 28 Dec, 2019 [facility] [id number] [place] [address] Dec, [place] [id number] [place] [address] 24 Nov, 2019 Spinal stenosis of cervical region M48.0 2 [place] [id number] [place] [address] 16 Nov, 2019 Lumbar back pain with radiculopathy affe cting right lower extremity M54.16 [place] [address] [address] 15 Nov, 2019 [facility] [address] [address] 15 Nov, 2019 [facility] [address] [address] 13 Nov, 2019 Type 2 diabetes mellitus with complicati on E11.8 [facility] [address] [address] 09 Nov, 2019 [facility] [address] [address] Oct, Spinal stenosis of cervical region M48.0 2 [facility] [address] [address] Oct, [facility] [address] [address] Oct, Spinal stenosis of cervical region M48.0 2 [place] [address] [address] Oct, [facility] [address] [address] Oct, Restless leg syndrome G25.81 and Bipolar I disorder, moderate, current or most recent episode depressed, with anxious distress F31.32 [place] [address] [address] Oct, [facility] [address] [address] Oct, Coronary artery disease involving [place] coronary artery of [place] heart without angina pectoris I25.10 ; GERD (gastroesophageal reflux disease) K21.9 and Diabetes E11.9 [place] [address] [address] Sep, [facility] [address] [address] Sep, [place] [address] [address] Sep, [facility] [address] [address] Sep, Spinal stenosis of cervical region M48.0 2 [facility] [address] [address] Sep, [facility] [address] [address] Sep, Spinal stenosis of cervical region M48.0 2 ; Lumbago with sciatica, right side M54.41 ; Type 2 diabetes mellitus with complication E11.8 and Stage II pressure ulcer of left buttock L89.322 [facility] [address] [address] Aug, Bipolar I disorder, moderate, current or most recent episode depressed, with anxious distress F31.32 and Restless leg syndrome G25.81 [facility] [address] [address] Aug, [facility] [address] [address] Aug, [facility] [address] [address] Aug, [facility] [address] [address] Aug, [facility] [address] [address] Aug, [facility] [address] [address] Aug, Spinal stenosis in cervical region M48.0 2 [facility] [address] [address] Jul, Bipolar I disorder, moderate, current or most recent episode depressed, with anxious distress F31.32 [facility] [address] [address] Jul, Bipolar I disorder, moderate, current or most recent episode depressed, with anxious distress F31.32 [facility] [address] [address] 18 Jul, 2019 Type 2 diabetes mellitus with complicati on E11.8 ; Coronary artery disease involving [place] coronary artery of [place] heart without angina pectoris I25.10 ; Bipolar I disorder, moderate, current or most recent episode depressed, with anxious distress F31.32 ; Localized edema R60.0 ; Financial difficulties Z59.8 and Spinal stenosis in cervical region M48.02 [facility] [address] [address] Jul, [facility] [address] [address] Jul, [facility] [address] [address] Jul, [place] [address] [address] Jul, [place] [address] [address] Jun, Spinal stenosis of cervical region M48.0 2 ; Fall with injury, subsequent encounter W19.XXXD ; Spinal stenosis of lumbar region with neurogenic claudication M48.062 ; Contusion of left eyebrow, subsequent encounter S00.12XD and Type 2 diabetes mellitus with complication E11.8 [place] [address] [address] Jun, Bipolar I disorder, moderate, current or most recent episode depressed, with anxious distress F31.32 [facility] [address] [address] Jun, [facility] [address] [address] Jun, [facility] [address] [address] Jun, [facility] [address] [address] Jun, [place] [id number] [place] [address] May, [facility] [address] [address] May, Lumbar back pain with radiculopathy affe cting right lower extremity M54.16 ; Cervicalgia M54.2 ; History of streptococcal infection Z86.19 ; Hypertriglyceridemia E78.1 ; Bipolar 1 disorder F31.9 and Does not have health insurance Z59.8 [facility] [address] [address] May, Radiculopathy of arm M54.10 [place] [address] [address] May, [facility] [address] [facility] [id number] [place] [address] May, Fever R50.9 [place] [address] [address] May, [facility] [address] [address] March, Type 2 diabetes mellitus with complicati on E11.8 [place] [address] [address] March, Patellar tendinitis, right knee M76.51 [place] [address] [address] March, Radiculopathy of arm M54.10 [place] [address] [address] March, [place] [address] [address] March, Type 2 diabetes mellitus with complicati on E11.8 ; Hoarseness of voice R49.0 and Acute pain of right knee M25.561 [place] [address] [address] March, [place] [address] [address] March, [place] [address] [address] Feb, Bipolar 1 disorder F31.9 [place] [address] [address] Feb, Bipolar 1 disorder F31.9 [place] [address] [address] Jan, [place] [address] [address] Dec, Type 2 diabetes mellitus with complicati on E11.8 [place] [address] [address] Dec, Acute non-recurrent maxillary sinusitis J01.00 [place] [address] [address] Nov, Bipolar 1 disorder F31.9 ; Rash R21 ; Ac celsa non-recurrent maxillary sinusitis J01.00 and Type 2 diabetes mellitus with complication E11.8 [place] [address] [address] Oct, Hypertriglyceridemia E78.1 [place] [address] [address] 10 Oct, 2018 Type 2 diabetes mellitus with complicati on E11.8 and Fatigue due to excessive exertion, initial encounter T73.3XXA [place] [address] [address] Oct, [place] [address] [address] Sep, [place] [address] [address] Sep, Radiculopathy of arm M54.10 [place] [address] [address] Sep, [facility] [address] [id number] [place] [address] May, [facility] [id number] [place] [address] May, Radiculopathy of arm M54.10 [facility] [id number] [place] [address] May, [facility] [id number] [place] [address] May, [facility] [id number] [place] [address] May, Radiculopathy of arm M54.10 [facility] [id number] [place] [address] Apr, Radiculopathy of arm M54.10 [facility] [id number] [place] [address] March, Radiculopathy of arm M54.10 [facility] [id number] [place] [address] March, Radiculopathy of arm M54.10 [facility] [id number] [place] [address] March, Radiculopathy of arm M54.10 [facility] [id number] [place] [address] March, Type 2 diabetes mellitus with complicati on E11.8 ; Radiculopathy of arm M54.10 and Muscle pain M79.1 [facility] [id number] [place] [address] Feb, Muscle pain M79.1 [facility] [id number] [place] [address] Jan, Type 2 diabetes mellitus with complicati on E11.8 [facility] [id number] [place] [address] Jan, [facility] [id number] [place] [address] Dec, Muscle pain M79.1 [place] [address] [address] Nov, Muscle pain M79.1 and Acute pain of righ t shoulder M25.511 [place] [address] [address] Nov, [place] [address] [address] Nov, [place] [address] [address] Nov, Type 2 diabetes mellitus with complicati on E11.8 [place] [address] [address] Nov, Impingement syndrome of left shoulder M7 5.42 and Impingement syndrome of right shoulder M75.41 [place] [address] [address] Oct, Type 2 diabetes mellitus with complicati on E11.8 ; Acute pain of right shoulder M25.511 ; Abscess of finger of right hand L02.511 and Umbilical hernia without obstruction and without gangrene K42.9 [place] [id number] [place] [address] Oct, [facility] [address] [facility] [id number] [address] [address] Oct, Mucoid otitis media, unspeci fied chronicity, unspecified laterality H65.90 and Abscess of finger of right hand L02.511 [place] [id number] [place] [address] Oct, [facility] [address] [address] Sep, [facility] [address] [address] Aug, [place] [address] [address] 14 Jul, 2017 Sprain of right acromioclavicular ligame nt, initial encounter S43.51XA ; Impingement syndrome of left shoulder M75.42 and Impingement syndrome of right shoulder M75.41 [place] [address] [address] 14 Jul, 2017 Type 2 diabetes mellitus with complicati on E11.8 [place] [address] [address] Jun, [place] [address] [address] Jun, Type 2 diabetes mellitus with complicati on E11.8 ; Lumbago with sciatica, right side M54.41 ; 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 and Pain in left shoulder M25.512 [place] [address] [address] May, [place] [address] [address] May, [place] [address] [address] Apr, Lumbago with sciatica, right side M54.41 and Neck pain on left side M54.2 [place] [address] [address] Apr, [place] [address] [address] Apr, [place] [address] [address] March, [place] [address] [address] March, [place] [address] [address] Feb, Acute pain of right shoulder M25.511 [facility] [address] [address] Feb, [facility] [address] [address] Feb, [facility] [address] [address] Feb, Type 2 diabetes mellitus with complicati on E11.8 ; Neuropathy G62.9 and Acute pain of right shoulder M25.511 [place] [address] [address] Dec, Type 2 diabetes mellitus with complicati on E11.8 [place] [address] [address] Nov, [place] [address] [address] Oct, Arthrosis of right acromioclavicular echo nt M19.011 [place] [address] [address] Oct, Type 2 diabetes mellitus with complicati on E11.8 [place] [address] [address] Sep, Type 2 diabetes mellitus with complicati on E11.8 ; Acute pain of right shoulder M25.511 and Prostate cancer screening Z12.5 [place] [address] [address] Sep, [place] [address] [address] Jun, [facility] [address] [address] Jun, Muscle tension headache G44.209 and Brux ism F45.8 [facility] [address] [address] May, Type 2 diabetes mellitus with complicati on E11.8 ; Erectile dysfunction, unspecified erectile dysfunction type N52.9 and Neuropathy G62.9 [facility] [address] [address] 13 Feb, 2016 [facility] [address] [address] Feb, Type 2 diabetes mellitus with complicati on E11.8 [facility] [address] [address] Dec, [facility] [address] [address] Dec, Type 2 diabetes mellitus with complicati on E11.8 [facility] [address] [address] Nov, Nausea and vomiting, unspecified intacta bility, vomiting of unspecified type R11.2 [place] [address] [address] Oct, Neuropathy G62.9 and Type 2 diabetes kermit litus with complication E11.8 [facility] [address] [address] Sep, [facility] [address] [address] Sep, [facility] [address] [address] Sep, Diabetes E11.9 [facility] [address] [address] Sep, [facility] [address] [address] Jul, [facility] [address] [address] Jun, [facility] [address] [address] Jun, Secondary diabetes mellitus with neurolo gical manifestations, not stated as uncontrolled, or unspecified 249.60 ; Other chronic pain 338.29 and Puncture wound 879.8 [facility] [id number] [place] [address] May, [facility] [id number] [place] [address] Apr, [facility] [id number] [place] [address] March, [facility] [id number] [place] [address] Feb, [facility] [id number] [place] [address] Feb, [facility] [id number] [place] [address] Jan, [facility] [id number] [place] [address] Jan, [facility] [id number] [place] [address] Jan, [facility] [id number] [place] [address] Jan, [facility] [id number] [place] [address] Jan, [facility] [id number] [place] [address] Jan, [facility] [id number] [place] [address] Jan, [facility] [id number] [place] [address] Jan, [facility] [id number] [place] [address] Dec, [facility] [id number] [place] [address] Dec, [facility] [id number] [place] [address] Nov, [facility] [address] [id number] [place] [address] Nov, [facility] [address] [id number] [place] [address] Nov, [facility] [address] [id number] [place] [address] Nov, [facility] [address] [id number] [place] [address] Nov, [facility] [address] [id number] [place] [address] Nov, [facility] [address] [id number] [place] [address] Oct, [facility] [address] [id number] [place] [address] Oct, [facility] [address] [id number] [place] [address] Oct, [facility] [address] [id number] [place] [address] Oct, [facility] [address] [id number] [place] [address] Oct, [facility] [address] [id number] [place] [address] Oct, [facility] [address] [id number] [place] [address] Oct, [facility] [address] [id number] [place] [address] Oct, [facility] [address] [id number] [place] [address] Oct, [facility] [address] [id number] [place] [address] Sep, [facility] [address] [id number] [place] [address] Sep, [facility] [address] [id number] [place] [address] Sep, [facility] [address] [id number] [place] [address] Sep, [facility] [address] [id number] [place] [address] Sep, [facility] [address] [id number] [place] [address] Sep, [facility] [address] [id number] [place] [address] Sep, [facility] [address] [facility] [id number] [place] [address] Aug, [facility] [address] [id number] [place] [address] Aug, [facility] [address] [id number] [place] [address] 16 Aug, 2014 [facility] [address] [id number] [place] [address] 16 Aug, 2014 [facility] [address] [id number] [place] [address] 14 Aug, 2014 [facility] [address] [id number] [place] [address] 14 Aug, 2014 [facility] [address] [id number] [place] [address] 26 Jul, 2013 [facility] [facility] [address] [id number] [place] [address] 25 Jul, 2013 [facility] [place] [facility] [address] [id number] [place] [address] 25 Jul, 2013 [facility] [place] [facility] [address] [id number] [place] [address] 25 Jul, 2013 [facility] [place] [facility] [address] [id number] [place] [address] 25 Jul, 2013 [facility] [place] [facility] [address] [id number] [place] [address] 19 Jul, 2013 [facility] [place] [facility] [address] [id number] [place] [address] Jul, 2013 [facility] [place] [facility] [address] [id number] [place] [address] Jul, [facility] [place] [facility] [address] [facility] [id number] [place] [address] Jul, [facility] [place] [facility] [address] [facility] [id number] [place] [address] Jul, [facility] [place] [facility] [address] [facility] [id number] [place] [address] Jun, [facility] [place] [facility] [address] [facility] [id number] [place] [address] Jun, [facility] [place] [facility] [address] [facility] [id number] [place] [address] Jun, [facility] [place] [facility] [address] [id number] [place] [address] Jun, [facility] [place] [facility] [address] [id number] [place] [address] Jun, [facility] [place] [facility] [address] [facility] [id number] [place] [address] Jun, [facility] [place] [facility] [address] [id number] [place] [address] Jun, [facility] [place] [facility] [address] [id number] [place] [address] Jun, [facility] [place] [facility] [address] [id number] [place] [address] May, [facility] [place] [facility] [address] [id number] [place] [address] May, [facility] [place] [facility] [address] [id number] [place] [address] May, [facility] [place] [facility] [address] [facility] [id number] [place] [address] May, [facility] [place] [facility] [address] [id number] [place] [address] May, [facility] [place] [facility] [address] [id number] [place] [address] May, [facility] [place] [facility] [address] [facility] [id number] [place] [address] May, [facility] [place] [facility] [address] [facility] [id number] [place] [address] May, [facility] [place] [facility] [address] [id number] [place] [address] May, [facility] [place] [facility] [address] [facility] [id number] [place] [address] May, [facility] [place] [facility] [address] [facility] [id number] [place] [address] May, [facility] [place] [facility] [address] [id number] [place] [address] May, [facility] [place] [facility] [address] [id number] [place] [address] May, [facility] [place] [facility] [address] [id number] [place] [address] Apr, [facility] [place] [facility] [address] [facility] [id number] [place] [address] Apr, [facility] [place] [facility] [address] [id number] [place] [address] Apr, [facility] [place] [facility] [address] [id number] [place] [address] Apr, [facility] [place] [facility] [address] [id number] [place] [address] Apr, [facility] [place] [facility] [address] [facility] [facility] [place] [id number] [place] [address] Apr, [facility] [place] [facility] [address] [id number] [place] [address] March, [facility] [place] [facility] [address] [id number] [place] [address] March, [facility] [place] [facility] [address] [id number] [place] [address] March, [facility] [place] [facility] [address] [facility] [id number] [place] [address] 30 Feb, 2014 [facility] [place] [facility] [address] [facility] [id number] [place] [address] 24 Feb, 2014 [facility] [place] [facility] [address] [id number] [place] [address] Feb, [facility] [place] [facility] [address] [id number] [place] [address] Feb, [facility] [place] [facility] [address] [facility] [id number] [place] [address] Feb, [facility] [place] [facility] [address] [id number] [place] [address] Feb, [facility] [place] [facility] [address] [id number] [place] [address] Feb, [facility] [place] [facility] [address] [id number] [place] [address] Feb, [facility] [place] [facility] [address] [id number] [place] [address] Feb, [facility] [place] [facility] [address] [id number] [place] [address] Feb, [facility] [place] [facility] [address] [id number] [place] [address] Feb, [facility] [place] [facility] [address] [id number] [place] [address] Jan, [facility] [place] [facility] [address] [id number] [place] [address] Jan, [facility] [place] [facility] [address] [id number] [place] [address] Jan, [facility] [place] [facility] [address] [id number] [place] [address] Jan, [facility] [place] [facility] [address] [id number] [place] [address] Jan, [facility] [place] [facility] [address] [id number] [place] [address] Jan, [facility] [place] [facility] [address] [facility] [id number] [place] [address] Dec, [facility] [place] [facility] [address] [id number] [place] [address] Dec, [facility] [place] [facility] [address] [id number] [place] [address] Dec, [facility] [place] [facility] [address] [id number] [place] [address] Dec, [facility] [place] [facility] [address] [id number] [place] [address] Nov, [facility] [place] [facility] [address] [id number] [place] [address] Nov, [facility] [place] [facility] [address] [id number] [place] [address] Nov, [facility] [place] [facility] [address] [id number] [place] [address] Nov, [facility] [place] [facility] [address] [id number] [place] [address] Nov, [facility] [place] [facility] [address] [id number] [place] [address] Nov, [facility] [place] [facility] [address] [id number] [place] [address] Oct, [facility] [place] [facility] [address] [id number] [place] [address] Oct, [facility] [place] [facility] [address] [id number] [place] [address] 05 Oct, 2013 [facility] [place] [facility] [address] [id number] [place] [address] 05 Oct, 2013 [facility] [place] [facility] [address] [id number] [place] [address] Oct, [facility] [place] [facility] [address] [id number] [place] [address] Oct, [facility] [place] [facility] [address] [id number] [place] [address] Sep, [facility] [place] [facility] [address] [id number] [place] [address] Sep, [facility] [place] [facility] [address] [id number] [place] [address] Sep, [facility] [place] [facility] [address] [id number] [place] [address] Sep, [facility] [place] [facility] [address] [id number] [place] [address] Sep, [facility] [place] [facility] [address] [id number] [place] [address] Sep, [facility] [place] [facility] [address] [id number] [place] [address] Aug, [facility] [place] [facility] [address] [id number] [place] [address] Aug, [facility] [place] [facility] [address] [id number] [place] [address] Aug, [facility] [place] [facility] [address] [id number] [place] [address] Aug, [facility] [place] [facility] [address] [id number] [place] [address] Jul, [facility] [place] [facility] [address] [id number] [place] [address] Jul, [facility] [place] [facility] [address] [id number] [place] [address] Jun, [facility] [place] [facility] [address] [id number] [place] [address] Jun, [facility] [place] [facility] [address] [id number] [place] [address] May, [facility] [place] [facility] [address] [id number] [place] [address] May, [facility] [place] [facility] [address] [id number] [place] [address] May, [facility] [place] [facility] [address] [id number] [place] [address] May, [facility] [place] [facility] [address] [id number] [place] [address] May, [facility] [place] [facility] [address] [id number] [place] [address] May, [facility] [place] [facility] [address] [id number] [place] [address] Apr, [facility] [place] [facility] [address] [id number] [place] [address] Apr, [facility] [place] [facility] [address] [id number] [place] [address] Apr, [facility] [place] [facility] [address] [id number] [place] [address] Apr, [facility] [place] [facility] [address] [id number] [place] [address] March, [facility] [place] [facility] [address] [id number] [place] [address] March, [facility] [place] [facility] [address] [id number] [place] [address] March, [facility] [place] [facility] [address] [id number] [place] [address] Feb, [facility] [place] [facility] [address] [id number] [place] [address] Feb, [facility] [place] [facility] [address] [id number] [place] [address] Jan, [facility] [place] [facility] [address] [id number] [place] [address] Dec, [facility] [place] [facility] [address] [id number] [place] [address] Dec, [facility] [place] [facility] [address] [id number] [place] [address] Dec, [facility] [place] [facility] [address] [id number] [place] [address] Dec, [facility] [place] [facility] [address] [id number] [place] [address] Dec, [facility] [place] [facility] [address] [id number] [place] [address] Nov, [facility] [place] [facility] [address] [id number] [place] [address] Nov, [facility] [place] [facility] [address] [id number] [place] [address] Nov, [facility] [place] [facility] [address] [id number] [place] [address] Nov, [facility] [place] [facility] [address] [id number] [place] [address] Nov, [facility] [place] [facility] [address] [id number] [place] [address] Oct, [facility] [place] [facility] [address] [id number] [place] [address] Oct, [facility] [place] [facility] [address] [id number] [place] [address] Oct, [facility] [place] [facility] [address] [id number] [place] [address] Oct, [facility] [place] [facility] [address] [id number] [place] [address] Sep, [facility] [place] [facility] [address] [id number] [place] [address] Sep, [facility] [place] [facility] [address] [id number] [place] [address] Sep, [facility] [place] [facility] [id number] [place] [address] Sep, [facility] [place] [facility] [address] [id number] [place] [address] Sep, [facility] [place] [facility] [address] [id number] [place] [address] Sep, [facility] [place] [facility] [address] [id number] [place] [address] Sep, [facility] [place] [facility] [address] [id number] [place] [address] Sep, [facility] [place] [facility] [address] [id number] [place] [address] Sep, [facility] [place] [facility] [address] [id number] [place] [address] Sep, [facility] [place] [facility] [address] [id number] [place] [address] Aug, [facility] [place] [facility] [address] [id number] [place] [address] Aug, [facility] [place] [facility] [address] [id number] [place] [address] Aug, [facility] [place] [facility] [id number] [place] [address] Aug, [facility] [place] [facility] [address] [id number] [place] [address] Aug, [facility] [place] [facility] [address] [id number] [place] [address] Aug, [facility] [place] [facility] [address] [id number] [place] [address] Jul, [facility] [place] [facility] [address] [id number] [place] [address] Jun, [facility] [place] [facility] [address] [id number] [place] [address] Apr, [facility] [place] [facility] [address] [id number] [place] [address] Apr, [facility] [place] [facility] [address] [id number] [place] [address] Apr, [facility] [place] [facility] [address] [id number] [place] [address] Apr, [facility] [place] [facility] [address] [id number] [place] [address] March, [facility] [place] [facility] [address] [id number] [place] [address] March, [facility] [place] [facility] [address] [id number] [place] [address] March, [facility] [place] [facility] [address] [id number] [place] [address] March, [facility] [place] [facility] [address] [id number] [place] [address] March, [facility] [place] [facility] [address] [id number] [place] [address] Feb, [facility] [place] [facility] [address] [id number] [place] [address] Feb, [facility] [place] [facility] [address] [id number] [place] [address] Feb, [facility] [place] [facility] [address] [id number] [place] [address] Feb, [facility] [place] [facility] [address] [id number] [place] [address] Jan, [facility] [place] [facility] [address] [id number] [place] [address] Jan, [facility] [place] [facility] [address] [id number] [place] [address] Jan, [facility] [place] [facility] [address] [id number] [place] [address] Dec, [facility] [place] [facility] [address] [id number] [place] [address] 15 Dec, 2011 [facility] [place] [facility] [address] [id number] [place] [address] 14 Dec, 2011 [facility] [place] [facility] [address] [id number] [place] [address] 08 Dec, 2011 [facility] [place] [facility] [address] [id number] [place] [address] 08 Dec, 2011 [facility] [address] [id number] [place] [address] Nov, [facility] [address] [id number] [place] [address] Nov, [facility] [address] [id number] [place] [address] Nov, [facility] [id number] [place] [address] Oct, [facility] [id number] [place] [address] Oct, [facility] [id number] [place] [address] Oct, [facility] [address] [id number] [place] [address] Sep, [facility] [address] [id number] [place] [address] Jul, [facility] [address] [id number] [place] [address] Apr, IMMUNIZATIONS No Known Immunizations SOCIAL HISTORY [...]
--- OUTSIDE RECORDS SUMMARY | 2020-01-05 17:39 | XMS REPORT ---
Author Author Porfirio SECALANTE Organization [facility] Address [address] [place] [address] Care Team Providers Care Shake Backboard Notcher Name Role Phone KUN ESCALANTE Unavailable PROBLEMS Type Condition ICD9-CM Code EHW49-HV Code Onset Dates Condition S tatus SNOMED Code Problem Hypertriglyceridemia E78.1 Active 350659123 Problem Lumbago with sciatica, right side M54.41 Active 259346317 Problem Muscle pain M79.1 Active 95800181 Problem GERD (gastroesophageal reflux disease) K21.9 Active 204229263 Problem Neuropathy G62.9 Active 541156488 Problem Diabetes E11.9 Active 398020414 Problem Type 2 diabetes mellitus with complication E11.8 Active 96224105 Problem Bipolar I disorder, moderate , current or most recent episode depressed, with anxious distress F31.32 Active 782126 06 Problem Coronary artery disease invo lving [place] coronary artery of [place] heart without angina pectoris I25.10 Active 1641 348925713 Problem Restless leg syndrome G25.81 Active 96751537 Problem Stage II pressure ulcer of left buttock L89.322 Active 162800423 ALLERGIES No Information ENCOUNTERS Encounter Location Date Diagnosis [place] [id number] [place] [address] 28 Dec, 2019 [facility] [id number] [place] [address] Dec, [place] [id number] [place] [address] 24 Nov, 2019 Spinal stenosis of cervical region M48.0 2 [place] [id number] [place] [address] 16 Nov, 2019 Lumbar back pain with radiculopathy affe cting right lower extremity M54.16 [place] [address] [address] 15 Nov, 2019 [facility] [address] [address] 15 Nov, 2019 [facility] [address] [address] 13 Nov, 2019 Type 2 diabetes mellitus with complicati on E11.8 [facility] [address] [address] 09 Nov, 2019 [facility] [address] [address] Oct, Spinal stenosis of cervical region M48.0 2 [facility] [address] [address] Oct, [facility] [address] [address] Oct, Spinal stenosis of cervical region M48.0 2 [place] [address] [address] Oct, [facility] [address] [address] Oct, Restless leg syndrome G25.81 and Bipolar I disorder, moderate, current or most recent episode depressed, with anxious distress F31.32 [place] [address] [address] Oct, [facility] [address] [address] Oct, Coronary artery disease involving [place] coronary artery of [place] heart without angina pectoris I25.10 ; GERD (gastroesophageal reflux disease) K21.9 and Diabetes E11.9 [place] [address] [address] Sep, [facility] [address] [address] Sep, [place] [address] [address] Sep, [facility] [address] [address] Sep, Spinal stenosis of cervical region M48.0 2 [facility] [address] [address] Sep, [facility] [address] [address] Sep, Spinal stenosis of cervical region M48.0 2 ; Lumbago with sciatica, right side M54.41 ; Type 2 diabetes mellitus with complication E11.8 and Stage II pressure ulcer of left buttock L89.322 [facility] [address] [address] Aug, Bipolar I disorder, moderate, current or most recent episode depressed, with anxious distress F31.32 and Restless leg syndrome G25.81 [facility] [address] [address] Aug, [facility] [address] [address] Aug, [facility] [address] [address] Aug, [facility] [address] [address] Aug, [facility] [address] [address] Aug, [facility] [address] [address] Aug, Spinal stenosis in cervical region M48.0 2 [facility] [address] [address] Jul, Bipolar I disorder, moderate, current or most recent episode depressed, with anxious distress F31.32 [facility] [address] [address] Jul, Bipolar I disorder, moderate, current or most recent episode depressed, with anxious distress F31.32 [facility] [address] [address] 18 Jul, 2019 Type 2 diabetes mellitus with complicati on E11.8 ; Coronary artery disease involving [place] coronary artery of [place] heart without angina pectoris I25.10 ; Bipolar I disorder, moderate, current or most recent episode depressed, with anxious distress F31.32 ; Localized edema R60.0 ; Financial difficulties Z59.8 and Spinal stenosis in cervical region M48.02 [facility] [address] [address] Jul, [facility] [address] [address] Jul, [place] [address] [address] Jul, [place] [address] [address] Jul, [place] [address] [address] Jun, Spinal stenosis of cervical region M48.0 2 ; Fall with injury, subsequent encounter W19.XXXD ; Spinal stenosis of lumbar region with neurogenic claudication M48.062 ; Contusion of left eyebrow, subsequent encounter S00.12XD and Type 2 diabetes mellitus with complication E11.8 [place] [address] [address] Jun, Bipolar I disorder, moderate, current or most recent episode depressed, with anxious distress F31.32 [facility] [address] [address] Jun, [facility] [address] [address] Jun, [facility] [address] [address] Jun, [facility] [address] [address] Jun, [place] [id number] [place] [address] May, [facility] [address] [address] May, Lumbar back pain with radiculopathy affe cting right lower extremity M54.16 ; Cervicalgia M54.2 ; History of streptococcal infection Z86.19 ; Hypertriglyceridemia E78.1 ; Bipolar 1 disorder F31.9 and Does not have health insurance Z59.8 [facility] [address] [address] May, Radiculopathy of arm M54.10 [place] [address] [address] May, [facility] [address] [facility] [id number] [address] [place] [address] May, Fever R50.9 [place] [address] [address] May, [facility] [address] [address] March, Type 2 diabetes mellitus with complicati on E11.8 [place] [address] [address] March, Patellar tendinitis, right knee M76.51 [place] [address] [address] March, Radiculopathy of arm M54.10 [place] [address] [address] March, [place] [address] [address] March, Type 2 diabetes mellitus with complicati on E11.8 ; Hoarseness of voice R49.0 and Acute pain of right knee M25.561 [place] [address] [address] March, [place] [address] [address] March, [place] [address] [address] Feb, Bipolar 1 disorder F31.9 [place] [address] [address] Feb, Bipolar 1 disorder F31.9 [place] [address] [address] Jan, [place] [address] [address] Dec, Type 2 diabetes mellitus with complicati on E11.8 [place] [address] [address] Dec, Acute non-recurrent maxillary sinusitis J01.00 [place] [address] [address] Nov, Bipolar 1 disorder F31.9 ; Rash R21 ; Ac celsa non-recurrent maxillary sinusitis J01.00 and Type 2 diabetes mellitus with complication E11.8 [place] [address] [address] Oct, Hypertriglyceridemia E78.1 [place] [address] [address] 10 Oct, 2018 Type 2 diabetes mellitus with complicati on E11.8 and Fatigue due to excessive exertion, initial encounter T73.3XXA [place] [address] [address] Oct, [place] [address] [address] Sep, [place] [address] [address] Sep, Radiculopathy of arm M54.10 [place] [address] [address] Sep, [facility] [address] [id number] [place] [address] May, [facility] [id number] [place] [address] May, Radiculopathy of arm M54.10 [facility] [id number] [place] [address] May, [facility] [id number] [place] [address] May, [facility] [id number] [place] [address] May, Radiculopathy of arm M54.10 [facility] [id number] [place] [address] Apr, Radiculopathy of arm M54.10 [facility] [id number] [place] [address] March, Radiculopathy of arm M54.10 [facility] [id number] [place] [address] March, Radiculopathy of arm M54.10 [facility] [id number] [place] [address] March, Radiculopathy of arm M54.10 [facility] [id number] [place] [address] March, Type 2 diabetes mellitus with complicati on E11.8 ; Radiculopathy of arm M54.10 and Muscle pain M79.1 [facility] [id number] [place] [address] Feb, Muscle pain M79.1 [facility] [id number] [place] [address] Jan, Type 2 diabetes mellitus with complicati on E11.8 [facility] [id number] [place] [address] Jan, [facility] [id number] [place] [address] Dec, Muscle pain M79.1 [place] [address] [address] Nov, Muscle pain M79.1 and Acute pain of righ t shoulder M25.511 [place] [address] [address] Nov, [place] [address] [address] Nov, [place] [address] [address] Nov, Type 2 diabetes mellitus with complicati on E11.8 [place] [address] [address] Nov, Impingement syndrome of left shoulder M7 5.42 and Impingement syndrome of right shoulder M75.41 [place] [address] [address] Oct, Type 2 diabetes mellitus with complicati on E11.8 ; Acute pain of right shoulder M25.511 ; Abscess of finger of right hand L02.511 and Umbilical hernia without obstruction and without gangrene K42.9 [place] [id number] [place] [address] Oct, [facility] [address] [facility] [id number] [address] [address] Oct, Mucoid otitis media, unspeci fied chronicity, unspecified laterality H65.90 and Abscess of finger of right hand L02.511 [place] [id number] [place] [address] Oct, [facility] [address] [address] Sep, [facility] [address] [address] Aug, [place] [address] [address] 14 Jul, 2017 Sprain of right acromioclavicular ligame nt, initial encounter S43.51XA ; Impingement syndrome of left shoulder M75.42 and Impingement syndrome of right shoulder M75.41 [place] [address] [address] 14 Jul, 2017 Type 2 diabetes mellitus with complicati on E11.8 [place] [address] [address] Jun, [place] [address] [address] Jun, Type 2 diabetes mellitus with complicati on E11.8 ; Lumbago with sciatica, right side M54.41 ; 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 and Pain in left shoulder M25.512 [place] [address] [address] May, [place] [address] [address] May, [place] [address] [address] Apr, Lumbago with sciatica, right side M54.41 and Neck pain on left side M54.2 [place] [address] [address] Apr, [place] [address] [address] Apr, [place] [address] [address] March, [place] [address] [address] March, [place] [address] [address] Feb, Acute pain of right shoulder M25.511 [facility] [address] [address] Feb, [facility] [address] [address] Feb, [facility] [address] [address] Feb, Type 2 diabetes mellitus with complicati on E11.8 ; Neuropathy G62.9 and Acute pain of right shoulder M25.511 [place] [address] [address] Dec, Type 2 diabetes mellitus with complicati on E11.8 [place] [address] [address] Nov, [place] [address] [address] Oct, Arthrosis of right acromioclavicular echo nt M19.011 [place] [address] [address] Oct, Type 2 diabetes mellitus with complicati on E11.8 [place] [address] [address] Sep, Type 2 diabetes mellitus with complicati on E11.8 ; Acute pain of right shoulder M25.511 and Prostate cancer screening Z12.5 [place] [address] [address] Sep, [place] [address] [address] Jun, [facility] [address] [address] Jun, Muscle tension headache G44.209 and Brux ism F45.8 [facility] [address] [address] May, Type 2 diabetes mellitus with complicati on E11.8 ; Erectile dysfunction, unspecified erectile dysfunction type N52.9 and Neuropathy G62.9 [facility] [address] [address] 13 Feb, 2016 [facility] [address] [address] Feb, Type 2 diabetes mellitus with complicati on E11.8 [facility] [address] [address] Dec, [facility] [address] [address] Dec, Type 2 diabetes mellitus with complicati on E11.8 [facility] [address] [address] Nov, Nausea and vomiting, unspecified intacta bility, vomiting of unspecified type R11.2 [place] [address] [address] Oct, Neuropathy G62.9 and Type 2 diabetes kermit litus with complication E11.8 [facility] [address] [address] Sep, [facility] [address] [address] Sep, [facility] [address] [address] Sep, Diabetes E11.9 [facility] [address] [address] Sep, [facility] [address] [address] Jul, [facility] [address] [address] Jun, [facility] [address] [address] Jun, Secondary diabetes mellitus with neurolo gical manifestations, not stated as uncontrolled, or unspecified 249.60 ; Other chronic pain 338.29 and Puncture wound 879.8 [facility] [id number] [place] [address] May, [facility] [id number] [place] [address] Apr, [facility] [id number] [place] [address] March, [facility] [place] [facility] [id number] [place] [address] Feb, [facility] [place] [facility] [id number] [place] [address] Feb, [facility] [place] [facility] [id number] [place] [address] Jan, [facility] [place] [facility] [id number] [place] [address] Jan, [facility] [id number] [place] [address] Jan, [facility] [place] [facility] [id number] [place] [address] Jan, [facility] [place] [facility] [id number] [place] [address] Jan, [facility] [id number] [place] [address] Jan, [facility] [place] [facility] [id number] [place] [address] Jan, [facility] [place] [facility] [id number] [place] [address] Jan, [facility] [place] [facility] [id number] [place] [address] Dec, [facility] [place] [facility] [id number] [place] [address] Dec, [facility] [place] [facility] [id number] [place] [address] Nov, [facility] [place] [facility] [address] [id number] [place] [address] Nov, [facility] [place] [facility] [address] [id number] [place] [address] Nov, [facility] [place] [facility] [address] [id number] [place] [address] Nov, [facility] [place] [facility] [address] [id number] [place] [address] Nov, [facility] [place] [facility] [address] [id number] [place] [address] Nov, [facility] [place] [facility] [address] [id number] [place] [address] Oct, [facility] [place] [facility] [address] [id number] [place] [address] Oct, [facility] [place] [facility] [address] [id number] [place] [address] Oct, [facility] [place] [facility] [address] [id number] [place] [address] Oct, [facility] [place] [facility] [address] [id number] [place] [address] Oct, [facility] [place] [facility] [address] [id number] [place] [address] Oct, [facility] [place] [facility] [address] [id number] [place] [address] Oct, [facility] [place] [facility] [address] [id number] [place] [address] Oct, [facility] [place] [facility] [address] [id number] [place] [address] Oct, [facility] [place] [facility] [address] [id number] [place] [address] Sep, [facility] [place] [facility] [address] [id number] [place] [address] Sep, [facility] [place] [facility] [address] [id number] [place] [address] Sep, [facility] [place] [facility] [address] [id number] [place] [address] Sep, [facility] [place] [facility] [address] [id number] [place] [address] Sep, [facility] [place] [facility] [address] [id number] [place] [address] Sep, [facility] [place] [facility] [address] [id number] [place] [address] Sep, [facility] [place] [facility] [address] [facility] [id number] [place] [address] Aug, [facility] [place] [facility] [address] [id number] [place] [address] Aug, [facility] [place] [facility] [address] [id number] [place] [address] 16 Aug, 2014 [facility] [place] [facility] [address] [id number] [place] [address] 16 Aug, 2014 [facility] [place] [facility] [address] [id number] [place] [address] 14 Aug, 2014 [facility] [place] [facility] [address] [id number] [place] [address] 14 Aug, 2014 [facility] [place] [facility] [address] [id number] [place] [address] 26 Jul, 2013 [facility] [place] [facility] [address] [id number] [place] [address] 25 Jul, 2013 [facility] [place] [facility] [address] [id number] [place] [address] 25 Jul, 2013 [facility] [place] [facility] [address] [id number] [place] [address] 25 Jul, 2013 [facility] [place] [facility] [address] [id number] [place] [address] 25 Jul, 2013 [facility] [place] [facility] [address] [id number] [place] [address] 19 Jul, 2013 [facility] [place] [facility] [address] [id number] [place] [address] Jul, 2013 [facility] [place] [facility] [address] [id number] [place] [address] Jul, [facility] [place] [facility] [address] [facility] [id number] [facility] [place] [address] Jul, [facility] [place] [facility] [address] [facility] [id number] [facility] [place] [address] Jul, [facility] [place] [facility] [address] [facility] [id number] [facility] [place] [address] Jun, [facility] [place] [facility] [address] [facility] [id number] [place] [address] Jun, [facility] [place] [facility] [address] [facility] [id number] [place] [address] Jun, [facility] [place] [facility] [address] [id number] [place] [address] Jun, [facility] [place] [facility] [address] [id number] [place] [address] Jun, [facility] [place] [facility] [address] [facility] [id number] [facility] [place] [address] Jun, [facility] [address] [id number] [place] [address] Jun, [facility] [address] [id number] [place] [address] Jun, [facility] [address] [id number] [facility] [place] [address] May, [facility] [address] [id number] [facility] [place] [address] May, [facility] [address] [id number] [place] [address] May, [facility] [address] [facility] [id number] [place] [address] May, [facility] [address] [id number] [place] [address] May, [facility] [address] [id number] [facility] [place] [address] May, [facility] [address] [facility] [id number] [place] [address] May, [facility] [address] [facility] [id number] [place] [address] May, [facility] [address] [id number] [place] [address] May, [facility] [address] [facility] [id number] [place] [address] May, [facility] [address] [facility] [id number] [place] [address] May, [facility] [address] [id number] [place] [address] May, [facility] [address] [id number] [place] [address] May, [facility] [address] [id number] [place] [address] Apr, [facility] [address] [facility] [id number] [place] [address] Apr, [facility] [address] [id number] [place] [address] Apr, [facility] [address] [id number] [place] [address] Apr, [facility] [address] [id number] [place] [address] Apr, [facility] [address] [facility] [id number] [place] [address] Apr, [facility] [address] [id number] [place] [address] March, [facility] [address] [id number] [place] [address] March, [facility] [address] [id number] [place] [address] March, [facility] [address] [facility] [id number] [place] [address] 30 Feb, 2014 [facility] [place] [facility] [address] [facility] [id number] [facility] [place] [address] 24 Feb, 2014 [facility] [place] [facility] [address] [id number] [place] [address] Feb, [facility] [place] [facility] [address] [id number] [facility] [place] [address] Feb, [facility] [place] [facility] [address] [facility] [id number] [place] [address] Feb, [facility] [place] [facility] [address] [id number] [place] [address] Feb, [facility] [place] [facility] [address] [id number] [place] [address] Feb, [facility] [place] [facility] [address] [id number] [place] [address] Feb, [facility] [place] [facility] [address] [id number] [place] [address] Feb, [facility] [place] [facility] [address] [id number] [place] [address] Feb, [facility] [place] [facility] [address] [id number] [place] [address] Feb, [facility] [place] [facility] [address] [id number] [place] [address] Jan, [facility] [place] [facility] [address] [id number] [place] [address] Jan, [facility] [place] [facility] [address] [id number] [place] [address] Jan, [facility] [place] [facility] [address] [id number] [place] [address] Jan, [facility] [place] [facility] [address] [id number] [place] [address] Jan, [facility] [place] [facility] [address] [id number] [place] [address] Jan, [facility] [place] [facility] [address] [facility] [id number] [place] [address] Dec, [facility] [place] [facility] [address] [id number] [place] [address] Dec, [facility] [place] [facility] [address] [id number] [place] [address] Dec, [facility] [place] [facility] [address] [id number] [place] [address] Dec, [facility] [place] [facility] [address] [id number] [place] [address] Nov, [facility] [place] [facility] [address] [id number] [place] [address] Nov, [facility] [place] [facility] [address] [id number] [place] [address] Nov, [facility] [place] [facility] [address] [id number] [place] [address] Nov, [facility] [place] [facility] [address] [id number] [place] [address] Nov, [facility] [place] [facility] [address] [id number] [place] [address] Nov, [facility] [place] [facility] [address] [id number] [place] [address] Oct, [facility] [place] [facility] [address] [id number] [place] [address] Oct, [facility] [place] [facility] [address] [id number] [place] [address] 05 Oct, 2013 [facility] [place] [facility] [address] [id number] [place] [address] 05 Oct, 2013 [facility] [place] [facility] [address] [id number] [place] [address] Oct, [facility] [place] [facility] [address] [id number] [place] [address] Oct, [facility] [place] [facility] [address] [id number] [place] [address] Sep, [facility] [place] [facility] [address] [id number] [place] [address] Sep, [facility] [place] [facility] [address] [id number] [place] [address] Sep, [facility] [place] [facility] [address] [id number] [place] [address] Sep, [facility] [place] [facility] [address] [id number] [place] [address] Sep, [facility] [place] [facility] [address] [id number] [place] [address] Sep, [facility] [place] [facility] [address] [id number] [place] [address] Aug, [facility] [place] [facility] [address] [id number] [place] [address] Aug, [facility] [place] [facility] [address] [id number] [place] [address] Aug, [facility] [place] [facility] [address] [id number] [place] [address] Aug, [facility] [place] [facility] [address] [id number] [place] [address] Jul, [facility] [place] [facility] [address] [id number] [place] [address] Jul, [facility] [place] [facility] [address] [id number] [place] [address] Jun, [facility] [place] [facility] [address] [id number] [place] [address] Jun, [facility] [place] [facility] [address] [id number] [place] [address] May, [facility] [place] [facility] [address] [id number] [place] [address] May, [facility] [place] [facility] [address] [id number] [place] [address] May, [facility] [place] [facility] [address] [id number] [place] [address] May, [facility] [place] [facility] [address] [id number] [place] [address] May, [facility] [place] [facility] [address] [id number] [place] [address] May, [facility] [place] [facility] [address] [id number] [place] [address] Apr, [facility] [place] [facility] [address] [id number] [place] [address] Apr, [facility] [place] [facility] [address] [id number] [place] [address] Apr, [facility] [place] [facility] [address] [id number] [place] [address] Apr, [facility] [place] [facility] [address] [id number] [place] [address] March, [facility] [place] [facility] [address] [id number] [place] [address] March, [facility] [place] [facility] [address] [id number] [place] [address] March, [facility] [place] [facility] [address] [id number] [place] [address] Feb, [facility] [place] [facility] [address] [id number] [place] [address] Feb, [facility] [place] [facility] [address] [id number] [place] [address] Jan, [facility] [place] [facility] [address] [id number] [place] [address] Dec, [facility] [place] [facility] [address] [id number] [place] [address] Dec, [facility] [place] [facility] [address] [id number] [place] [address] Dec, [facility] [place] [facility] [address] [id number] [place] [address] Dec, [facility] [place] [facility] [address] [id number] [place] [address] Dec, [facility] [place] [facility] [address] [id number] [place] [address] Nov, [facility] [place] [facility] [address] [id number] [place] [address] Nov, [facility] [place] [facility] [address] [id number] [place] [address] Nov, [facility] [place] [facility] [address] [id number] [place] [address] Nov, [facility] [place] [facility] [address] [id number] [place] [address] Nov, [facility] [place] [facility] [address] [id number] [place] [address] Oct, [facility] [place] [facility] [address] [id number] [place] [address] Oct, [facility] [place] [facility] [address] [id number] [place] [address] Oct, [facility] [place] [facility] [address] [id number] [place] [address] Oct, [facility] [place] [facility] [address] [id number] [place] [address] Sep, [facility] [place] [facility] [address] [id number] [place] [address] Sep, [facility] [place] [facility] [address] [id number] [place] [address] Sep, [facility] [place] [facility] [id number] [place] [address] Sep, [facility] [place] [facility] [address] [id number] [place] [address] Sep, [facility] [place] [facility] [address] [id number] [place] [address] Sep, [facility] [place] [facility] [address] [id number] [place] [address] Sep, [facility] [place] [facility] [address] [id number] [place] [address] Sep, [facility] [place] [facility] [address] [id number] [place] [address] Sep, [facility] [place] [facility] [address] [id number] [place] [address] Sep, [facility] [place] [facility] [address] [id number] [place] [address] Aug, [facility] [place] [facility] [address] [id number] [place] [address] Aug, [facility] [place] [facility] [address] [id number] [place] [address] Aug, [facility] [place] [facility] [id number] [place] [address] Aug, [facility] [place] [facility] [address] [id number] [place] [address] Aug, [facility] [place] [facility] [address] [id number] [place] [address] Aug, [facility] [place] [facility] [address] [id number] [place] [address] Jul, [facility] [place] [facility] [address] [id number] [place] [address] Jun, [facility] [place] [facility] [address] [id number] [place] [address] Apr, [facility] [place] [facility] [address] [id number] [place] [address] Apr, [facility] [place] [facility] [address] [id number] [place] [address] Apr, [facility] [place] [facility] [address] [id number] [place] [address] Apr, [facility] [place] [facility] [address] [id number] [place] [address] March, [facility] [place] [facility] [address] [id number] [place] [address] March, [facility] [place] [facility] [address] [id number] [place] [address] March, [facility] [place] [facility] [address] [id number] [place] [address] March, [facility] [place] [facility] [address] [id number] [place] [address] March, [facility] [place] [facility] [address] [id number] [place] [address] Feb, [facility] [place] [facility] [address] [id number] [place] [address] Feb, [facility] [place] [facility] [address] [id number] [place] [address] Feb, [facility] [place] [facility] [address] [id number] [place] [address] Feb, [facility] [place] [facility] [address] [id number] [place] [address] Jan, [facility] [place] [facility] [address] [id number] [place] [address] Jan, [facility] [place] [facility] [address] [id number] [place] [address] Jan, [facility] [place] [facility] [address] [id number] [place] [address] Dec, [facility] [place] [facility] [address] [id number] [place] [address] 15 Dec, 2011 [facility] [place] [facility] [address] [id number] [place] [address] 14 Dec, 2011 [facility] [place] [facility] [address] [id number] [place] [address] 08 Dec, 2011 [facility] [place] [facility] [address] [id number] [place] [address] 08 Dec, 2011 [facility] [address] [id number] [place] [address] Nov, [facility] [id number] [place] [address] Nov, [facility] [address] [id number] [place] [address] Nov, [facility] [id number] [place] [address] Oct, [facility] [id number] [place] [address] Oct, [facility] [id number] [place] [address] Oct, [facility] [id number] [place] [address] Sep, [facility] [id number] [place] [address] Jul, [facility] [address] [id number] [place] [address] Apr, IMMUNIZATIONS No Known Immunizations SOCIAL HISTORY Never Assessed REASON FOR VISIT PLAN OF CARE VITAL SIGNS Height 70 in 2014-02-24 Weight 284.9 lbs 2014-02-24 Temperature 97.8 degrees Fahrenheit 2014-02-24 Heart Rate 76 bpm 2014-02-24 Respiratory Rate 18 2014-02-24 Blood pressure systolic 114 mmHg 2014-02-24 Blood pressure diastolic 68 mmHg 2014-02-24 MEDICATIONS Unknown Medications RESULTS No Results PROCEDURES Procedure Date Ordered Result Body Site COMPLETE CBC W/AUTO DIFF WBC February 24, 2014 ASSAY THYROID STIM HORMONE February 24, 2014 ASSAY OF PSA, TOTAL February 24, 2014 GLYCATED HEMOGLOBIN TEST February 24, 2014 LIPID PANEL February 24, 2014 COMPREHEN METABOLIC PANEL February 24, 2014 VENIPUNCT, ROUTINE* February 24, 2014 INSTRUCTIONS MEDICATIONS ADMINISTERED No Known Medications MEDICAL [...]
--- OUTSIDE RECORDS SUMMARY | 2020-01-05 17:39 | XMS REPORT ---
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 Name Role Phone KUN ESCALANTE Unavailable PROBLEMS Type Condition ICD9-CM Code KNG35-HD Code Onset Dates Condition S tatus SNOMED Code Problem Hypertriglyceridemia E78.1 Active 667070420 Problem Lumbago with sciatica, right side M54.41 Active 556675426 Problem Muscle pain M79.1 Active 24390805 Problem GERD (gastroesophageal reflux disease) K21.9 Active 359199391 Problem Neuropathy G62.9 Active 617420553 Problem Diabetes E11.9 Active 385248764 Problem Type 2 diabetes mellitus with complication E11.8 Active 41973607 Problem Bipolar I disorder, moderate , current or most recent episode depressed, with anxious distress F31.32 Active 462282 06 Problem Coronary artery disease invo lving [place] coronary artery of [place] heart without angina pectoris I25.10 Active 1641 478076232 Problem Restless leg syndrome G25.81 Active 28585971 Problem Stage II pressure ulcer of left buttock L89.322 Active 716579104 ALLERGIES No Information ENCOUNTERS Encounter Location Date Diagnosis [place] [id number] [place] [address] 28 Dec, 2019 [facility], [place] [id number] [place] [address] Dec, [place] [id number] [place] [address] 24 Nov, 2019 Spinal stenosis of cervical region M48.0 2 [place] [id number] [place] [address] 16 Nov, 2019 Lumbar back pain with radiculopathy affe cting right lower extremity M54.16 [place] [address] [address] 15 Nov, 2019 [facility], [place] [address] [address] 15 Nov, 2019 [facility] [place] [address] [address] 13 Nov, 2019 Type 2 diabetes mellitus with complicati on E11.8 [facility] [place] [address] [address] 09 Nov, 2019 [facility] [place] [address] [address] Oct, Spinal stenosis of cervical region M48.0 2 [facility] [place] [address] [address] Oct, [facility] [place] [address] [address] Oct, Spinal stenosis of cervical region M48.0 2 [place] [address] [address] Oct, [facility] [place] [address] [address] Oct, Restless leg syndrome G25.81 and Bipolar I disorder, moderate, current or most recent episode depressed, with anxious distress F31.32 [place] [address] [address] Oct, [facility] [place] [address] [address] Oct, Coronary artery disease involving [place] coronary artery of [place] heart without angina pectoris I25.10 ; GERD (gastroesophageal reflux disease) K21.9 and Diabetes E11.9 [place] [address] [address] Sep, [facility] [place] [address] [address] Sep, [place] [address] [address] Sep, [facility] [place] [address] [address] Sep, Spinal stenosis of cervical region M48.0 2 [facility] [place] [address] [address] Sep, [facility] [place] [address] [address] Sep, Spinal stenosis of cervical region M48.0 2 ; Lumbago with sciatica, right side M54.41 ; Type 2 diabetes mellitus with complication E11.8 and Stage II pressure ulcer of left buttock L89.322 [facility] [place] [address] [address] Aug, Bipolar I disorder, moderate, current or most recent episode depressed, with anxious distress F31.32 and Restless leg syndrome G25.81 [facility] [place] [address] [address] Aug, [facility] [place] [address] [address] Aug, [facility] [place] [address] [address] Aug, [facility] [place] [address] [address] Aug, [facility] [place] [address] [address] Aug, [facility] [place] [address] [address] Aug, Spinal stenosis in cervical region M48.0 2 [facility] [place] [address] [address] Jul, Bipolar I disorder, moderate, current or most recent episode depressed, with anxious distress F31.32 [facility] [place] [address] [address] Jul, Bipolar I disorder, moderate, current or most recent episode depressed, with anxious distress F31.32 [facility] [place] [address] [address] 18 Jul, 2019 Type 2 diabetes mellitus with complicati on E11.8 ; Coronary artery disease involving [place] coronary artery of [place] heart without angina pectoris I25.10 ; Bipolar I disorder, moderate, current or most recent episode depressed, with anxious distress F31.32 ; Localized edema R60.0 ; Financial difficulties Z59.8 and Spinal stenosis in cervical region M48.02 [facility] [place] [address] [address] Jul, [facility] [place] [address] [address] Jul, [place] [address] [address] Jul, [place] [address] [address] Jul, [place] [address] [address] Jun, Spinal stenosis of cervical region M48.0 2 ; Fall with injury, subsequent encounter W19.XXXD ; Spinal stenosis of lumbar region with neurogenic claudication M48.062 ; Contusion of left eyebrow, subsequent encounter S00.12XD and Type 2 diabetes mellitus with complication E11.8 [place] [address] [address] Jun, Bipolar I disorder, moderate, current or most recent episode depressed, with anxious distress F31.32 [facility] [place] [address] [address] Jun, [facility] [place] [address] [address] Jun, [facility] [place] [address] [address] Jun, [facility] [place] [address] [address] Jun, [place] [id number] [place] [address] May, [facility] [place] [address] [address] May, Lumbar back pain with radiculopathy affe cting right lower extremity M54.16 ; Cervicalgia M54.2 ; History of streptococcal infection Z86.19 ; Hypertriglyceridemia E78.1 ; Bipolar 1 disorder F31.9 and Does not have health insurance Z59.8 [facility] [place] [address] [address] May, Radiculopathy of arm M54.10 [place] [address] [address] May, [facility] [address] [facility] [id number] [address] [place] [address] May, Fever R50.9 [place] [address] [address] May, [facility] [place] [address] [address] March, Type 2 diabetes mellitus with complicati on E11.8 [place] [address] [address] March, Patellar tendinitis, right knee M76.51 [place] [address] [address] March, Radiculopathy of arm M54.10 [place] [address] [address] March, [place] [address] [address] March, Type 2 diabetes mellitus with complicati on E11.8 ; Hoarseness of voice R49.0 and Acute pain of right knee M25.561 [place] [address] [address] March, [place] [address] [address] March, [place] [address] [address] Feb, Bipolar 1 disorder F31.9 [place] [address] [address] Feb, Bipolar 1 disorder F31.9 [place] [address] [address] Jan, [place] [address] [address] Dec, Type 2 diabetes mellitus with complicati on E11.8 [place] [address] [address] Dec, Acute non-recurrent maxillary sinusitis J01.00 [place] [address] [address] Nov, Bipolar 1 disorder F31.9 ; Rash R21 ; Ac celsa non-recurrent maxillary sinusitis J01.00 and Type 2 diabetes mellitus with complication E11.8 [place] [address] [address] Oct, Hypertriglyceridemia E78.1 [place] [address] [address] 10 Oct, 2018 Type 2 diabetes mellitus with complicati on E11.8 and Fatigue due to excessive exertion, initial encounter T73.3XXA [place] [address] [address] Oct, [place] [address] [address] Sep, [place] [address] [address] Sep, Radiculopathy of arm M54.10 [place] [address] [address] Sep, [facility], [place] [address] [id number] [place] [address] May, [facility], [place] [id number] [place] [address] May, Radiculopathy of arm M54.10 [facility], [place] [id number] [place] [address] May, [facility] [place] [id number] [place] [address] May, [facility] [place] [id number] [place] [address] May, Radiculopathy of arm M54.10 [facility] [place] [id number] [place] [address] Apr, Radiculopathy of arm M54.10 [facility] [place] [id number] [place] [address] March, Radiculopathy of arm M54.10 [facility] [place] [id number] [place] [address] March, Radiculopathy of arm M54.10 [facility] [place] [id number] [place] [address] March, Radiculopathy of arm M54.10 [facility] [place] [id number] [place] [address] March, Type 2 diabetes mellitus with complicati on E11.8 ; Radiculopathy of arm M54.10 and Muscle pain M79.1 [facility] [place] [id number] [place] [address] Feb, Muscle pain M79.1 [facility] [place] [id number] [place] [address] Jan, Type 2 diabetes mellitus with complicati on E11.8 [facility] [place] [id number] [place] [address] Jan, [facility] [place] [id number] [place] [address] Dec, Muscle pain M79.1 [place] [address] [address] Nov, Muscle pain M79.1 and Acute pain of righ t shoulder M25.511 [place] [address] [address] Nov, [place] [address] [address] Nov, [place] [address] [address] Nov, Type 2 diabetes mellitus with complicati on E11.8 [place] [address] [address] Nov, Impingement syndrome of left shoulder M7 5.42 and Impingement syndrome of right shoulder M75.41 [place] [address] [address] Oct, Type 2 diabetes mellitus with complicati on E11.8 ; Acute pain of right shoulder M25.511 ; Abscess of finger of right hand L02.511 and Umbilical hernia without obstruction and without gangrene K42.9 [place] [id number] [place] [address] Oct, [facility] [address] [facility] [id number] [place] [address] Oct, Mucoid otitis media, unspeci fied chronicity, unspecified laterality H65.90 and Abscess of finger of right hand L02.511 [place] [id number] [place] [address] Oct, [facility] [place] [address] [address] Sep, [facility] [place] [address] [address] Aug, [place] [address] [address] 14 Jul, 2017 Sprain of right acromioclavicular ligame nt, initial encounter S43.51XA ; Impingement syndrome of left shoulder M75.42 and Impingement syndrome of right shoulder M75.41 [place] [address] [address] 14 Jul, 2017 Type 2 diabetes mellitus with complicati on E11.8 [place] [address] [address] Jun, [place] [address] [address] Jun, Type 2 diabetes mellitus with complicati on E11.8 ; Lumbago with sciatica, right side M54.41 ; 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 and Pain in left shoulder M25.512 [place] [address] [address] May, [place] [address] [address] May, [place] [address] [address] Apr, Lumbago with sciatica, right side M54.41 and Neck pain on left side M54.2 [place] [address] [address] Apr, [place] [address] [address] Apr, [place] [address] [address] March, [place] [address] [address] March, [place] [address] [address] Feb, Acute pain of right shoulder M25.511 [facility] [place] [address] [address] Feb, [facility] [place] [address] [address] Feb, [facility] [place] [address] [address] Feb, Type 2 diabetes mellitus with complicati on E11.8 ; Neuropathy G62.9 and Acute pain of right shoulder M25.511 [place] [address] [address] Dec, Type 2 diabetes mellitus with complicati on E11.8 [place] [address] [address] Nov, [place] [address] [address] Oct, Arthrosis of right acromioclavicular echo nt M19.011 [place] [address] [address] Oct, Type 2 diabetes mellitus with complicati on E11.8 [place] [address] [address] Sep, Type 2 diabetes mellitus with complicati on E11.8 ; Acute pain of right shoulder M25.511 and Prostate cancer screening Z12.5 [place] [address] [address] Sep, [place] [address] [address] Jun, [facility] [place] [address] [address] Jun, Muscle tension headache G44.209 and Brux ism F45.8 [facility] [place] [address] [address] May, Type 2 diabetes mellitus with complicati on E11.8 ; Erectile dysfunction, unspecified erectile dysfunction type N52.9 and Neuropathy G62.9 [facility] [place] [address] [address] 13 Feb, 2016 [facility] [place] [address] [address] Feb, Type 2 diabetes mellitus with complicati on E11.8 [facility] [place] [address] [address] Dec, [facility] [place] [address] [address] Dec, Type 2 diabetes mellitus with complicati on E11.8 [facility] [place] [address] [address] Nov, Nausea and vomiting, unspecified intacta bility, vomiting of unspecified type R11.2 [place] [address] [address] Oct, Neuropathy G62.9 and Type 2 diabetes kermit litus with complication E11.8 [facility] [place] [address] [address] Sep, [facility] [place] [address] [address] Sep, [facility] [place] [address] [address] Sep, Diabetes E11.9 [facility] [place] [address] [address] Sep, [facility] [place] [address] [address] Jul, [facility] [place] [address] [address] Jun, [facility] [place] [address] [address] Jun, Secondary diabetes mellitus with neurolo gical manifestations, not stated as uncontrolled, or unspecified 249.60 ; Other chronic pain 338.29 and Puncture wound 879.8 [facility] [id number] [place] [address] May, [facility] [id number] [place] [address] Apr, [facility] [id number] [place] [address] March, [facility] [place] [facility] [id number] [place] [address] Feb, [facility] [place] [facility] [id number] [place] [address] Feb, [facility] [place] [facility] [id number] [place] [address] Jan, [facility] [place] [facility] [id number] [place] [address] Jan, [facility] [id number] [place] [address] Jan, [facility] [place] [facility] [id number] [place] [address] Jan, [facility] [place] [facility] [id number] [place] [address] Jan, [facility] [id number] [place] [address] Jan, [facility] [place] [facility] [id number] [place] [address] Jan, [facility] [place] [facility] [id number] [place] [address] Jan, [facility] [place] [facility] [id number] [place] [address] Dec, [facility] [place] [facility] [id number] [place] [address] Dec, [facility] [place] [facility] [id number] [place] [address] Nov, [facility] [place] [facility] [address] [id number] [place] [address] Nov, [facility] [place] [facility] [address] [id number] [place] [address] Nov, [facility] [place] [facility] [address] [id number] [place] [address] Nov, [facility] [place] [facility] [address] [id number] [place] [address] Nov, [facility] [place] [facility] [address] [id number] [place] [address] Nov, [facility] [place] [facility] [address] [id number] [place] [address] Oct, [facility] [place] [facility] [address] [id number] [place] [address] Oct, [facility] [place] [facility] [address] [id number] [place] [address] Oct, [facility] [place] [facility] [address] [id number] [place] [address] Oct, [facility] [place] [facility] [address] [id number] [place] [address] Oct, [facility] [place] [facility] [address] [id number] [place] [address] Oct, [facility] [place] [facility] [address] [id number] [place] [address] Oct, [facility] [place] [facility] [address] [id number] [place] [address] Oct, [facility] [place] [facility] [address] [id number] [place] [address] Oct, [facility] [place] [facility] [address] [id number] [place] [address] Sep, [facility] [place] [facility] [address] [id number] [place] [address] Sep, [facility] [place] [facility] [address] [id number] [place] [address] Sep, [facility] [place] [facility] [address] [id number] [place] [address] Sep, [facility] [place] [facility] [address] [id number] [place] [address] Sep, [facility] [place] [facility] [address] [id number] [place] [address] Sep, [facility] [place] [facility] [address] [id number] [place] [address] Sep, [facility] [place] [facility] [address] [facility] [id number] [place] [address] Aug, [facility] [place] [facility] [address] [id number] [place] [address] Aug, [facility] [place] [facility] [address] [id number] [place] [address] 16 Aug, 2014 [facility] [place] [facility] [address] [id number] [place] [address] 16 Aug, 2014 [facility] [place] [facility] [address] [id number] [place] [address] 14 Aug, 2014 [facility] [place] [facility] [address] [id number] [place] [address] 14 Aug, 2014 [facility] [place] [facility] [address] [id number] [place] [address] 26 Jul, 2013 [facility] [place] [facility] [address] [id number] [place] [address] 25 Jul, 2013 [facility] [place] [facility] [address] [id number] [place] [address] 25 Jul, 2013 [facility] [place] [facility] [address] [id number] [place] [address] 25 Jul, 2013 [facility] [place] [facility] [address] [id number] [place] [address] 25 Jul, 2013 [facility] [place] [facility] [address] [id number] [place] [address] 19 Jul, 2013 [facility] [place] [facility] [address] [id number] [place] [address] Jul, 2013 [facility] [place] [facility] [address] [id number] [place] [address] Jul, [facility] [place] [facility] [address] [facility] [id number] [place] [address] Jul, [facility] [place] [facility] [address] [facility] [id number] [place] [address] Jul, [facility] [place] [facility] [address] [facility] [id number] [place] [address] Jun, [facility] [place] [facility] [address] [facility] [id number] [place] [address] Jun, [facility] [place] [facility] [address] [facility] [id number] [place] [address] Jun, [facility] [place] [facility] [address] [id number] [place] [address] Jun, [facility] [place] [facility] [address] [id number] [place] [address] Jun, [facility] [place] [facility] [address] [facility] [id number] [place] [address] Jun, [facility] [place] [facility] [address] [id number] [place] [address] Jun, [facility] [place] [facility] [address] [id number] [place] [address] Jun, [facility] [place] [facility] [address] [id number] [place] [address] May, [facility] [place] [facility] [address] [id number] [place] [address] May, [facility] [place] [facility] [address] [id number] [place] [address] May, [facility] [place] [facility] [address] [facility] [id number] [place] [address] May, [facility] [place] [facility] [address] [id number] [place] [address] May, [facility] [place] [facility] [address] [id number] [place] [address] May, [facility] [place] [facility] [address] [facility] [id number] [place] [address] May, [facility] [place] [facility] [address] [facility] [id number] [place] [address] May, [facility] [place] [facility] [address] [id number] [place] [address] May, [facility] [place] [facility] [address] [facility] [id number] [place] [address] May, [facility] [place] [facility] [address] [facility] [id number] [place] [address] May, [facility] [place] [facility] [address] [id number] [place] [address] May, [facility] [place] [facility] [address] [id number] [place] [address] May, [facility] [place] [facility] [address] [id number] [place] [address] Apr, [facility] [place] [facility] [address] [facility] [id number] [place] [address] Apr, [facility] [place] [facility] [address] [id number] [place] [address] Apr, [facility] [place] [facility] [address] [id number] [place] [address] Apr, [facility] [place] [facility] [address] [id number] [place] [address] Apr, [facility] [place] [facility] [address] [facility] [id number] [place] [address] Apr, [facility] [place] [facility] [address] [id number] [place] [address] March, [facility] [place] [facility] [address] [id number] [place] [address] March, [facility] [place] [facility] [address] [id number] [place] [address] March, [facility] [place] [facility] [address] [facility] [id number] [place] [address] 30 Feb, 2014 [facility] [place] [facility] [address] [facility] [id number] [place] [address] 24 Feb, 2014 [facility] [place] [facility] [address] [id number] [place] [address] Feb, [facility] [place] [facility] [address] [id number] [place] [address] Feb, [facility] [place] [facility] [address] [facility] [id number] [place] [address] Feb, [facility] [place] [facility] [address] [id number] [place] [address] Feb, [facility] [place] [facility] [address] [id number] [place] [address] Feb, [facility] [place] [facility] [address] [id number] [place] [address] Feb, [facility] [place] [facility] [address] [id number] [place] [address] Feb, [facility] [place] [facility] [address] [id number] [place] [address] Feb, [facility] [place] [facility] [address] [id number] [place] [address] Feb, [facility] [place] [facility] [address] [id number] [place] [address] Jan, [facility] [place] [facility] [address] [id number] [place] [address] Jan, [facility] [place] [facility] [address] [id number] [place] [address] Jan, [facility] [place] [facility] [address] [id number] [place] [address] Jan, [facility] [place] [facility] [address] [id number] [place] [address] Jan, [facility] [place] [facility] [address] [id number] [place] [address] Jan, [facility] [place] [facility] [address] [facility] [id number] [place] [address] Dec, [facility] [place] [facility] [address] [id number] [place] [address] Dec, [facility] [place] [facility] [address] [id number] [place] [address] Dec, [facility] [place] [facility] [address] [id number] [place] [address] Dec, [facility] [place] [facility] [address] [id number] [place] [address] Nov, [facility] [place] [facility] [address] [id number] [place] [address] Nov, [facility] [place] [facility] [address] [id number] [place] [address] Nov, [facility] [place] [facility] [address] [id number] [place] [address] Nov, [facility] [place] [facility] [address] [id number] [place] [address] Nov, [facility] [place] [facility] [address] [id number] [place] [address] Nov, [facility] [place] [facility] [address] [id number] [place] [address] Oct, [facility] [place] [facility] [address] [id number] [place] [address] Oct, [facility] [place] [facility] [address] [id number] [place] [address] 05 Oct, 2013 [facility] [place] [facility] [address] [id number] [place] [address] 05 Oct, 2013 [facility] [place] [facility] [address] [id number] [place] [address] Oct, [facility] [place] [facility] [address] [id number] [place] [address] Oct, [facility] [place] [facility] [address] [id number] [place] [address] Sep, [facility] [place] [facility] [address] [id number] [place] [address] Sep, [facility] [place] [facility] [address] [id number] [place] [address] Sep, [facility] [place] [facility] [address] [id number] [place] [address] Sep, [facility] [place] [facility] [address] [id number] [place] [address] Sep, [facility] [place] [facility] [address] [id number] [place] [address] Sep, [facility] [place] [facility] [address] [id number] [place] [address] Aug, [facility] [place] [facility] [address] [id number] [place] [address] Aug, [facility] [place] [facility] [address] [id number] [place] [address] Aug, [facility] [place] [facility] [address] [id number] [place] [address] Aug, [facility] [place] [facility] [address] [id number] [place] [address] Jul, [facility] [place] [facility] [address] [id number] [place] [address] Jul, [facility] [place] [facility] [address] [id number] [place] [address] Jun, [facility] [place] [facility] [address] [id number] [place] [address] Jun, [facility] [place] [facility] [address] [id number] [place] [address] May, [facility] [place] [facility] [address] [id number] [place] [address] May, [facility] [place] [facility] [address] [id number] [place] [address] May, [facility] [place] [facility] [address] [id number] [place] [address] May, [facility] [place] [facility] [address] [id number] [place] [address] May, [facility] [place] [facility] [address] [id number] [place] [address] May, [facility] [place] [facility] [address] [id number] [place] [address] Apr, [facility] [place] [facility] [address] [id number] [place] [address] Apr, [facility] [place] [facility] [address] [id number] [place] [address] Apr, [facility] [place] [facility] [address] [id number] [place] [address] Apr, [facility] [place] [facility] [address] [id number] [place] [address] March, [facility] [place] [facility] [address] [id number] [place] [address] March, [facility] [place] [facility] [address] [id number] [place] [address] March, [facility] [place] [facility] [address] [id number] [place] [address] Feb, [facility] [place] [facility] [address] [id number] [place] [address] Feb, [facility] [place] [facility] [address] [id number] [place] [address] Jan, [facility] [place] [facility] [address] [id number] [place] [address] Dec, [facility] [place] [facility] [address] [id number] [place] [address] Dec, [facility] [place] [facility] [address] [id number] [place] [address] Dec, [facility] [place] [facility] [address] [id number] [place] [address] Dec, [facility] [place] [facility] [address] [id number] [place] [address] Dec, [facility] [place] [facility] [address] [id number] [place] [address] Nov, [facility] [place] [facility] [address] [id number] [place] [address] Nov, [facility] [place] [facility] [address] [id number] [place] [address] Nov, [facility] [place] [facility] [address] [id number] [place] [address] Nov, [facility] [place] [facility] [address] [id number] [place] [address] Nov, [facility] [place] [facility] [address] [id number] [place] [address] Oct, [facility] [place] [facility] [address] [id number] [place] [address] Oct, [facility] [place] [facility] [address] [id number] [place] [address] Oct, [facility] [place] [facility] [address] [id number] [place] [address] Oct, [facility] [place] [facility] [address] [id number] [place] [address] Sep, [facility] [place] [facility] [address] [id number] [place] [address] Sep, [facility] [place] [facility] [address] [id number] [place] [address] Sep, [facility] [place] [facility] [id number] [place] [address] Sep, [facility] [place] [facility] [address] [id number] [place] [address] Sep, [facility] [place] [facility] [address] [id number] [place] [address] Sep, [facility] [place] [facility] [address] [id number] [place] [address] Sep, [facility] [place] [facility] [address] [id number] [place] [address] Sep, [facility] [place] [facility] [address] [id number] [place] [address] Sep, [facility] [place] [facility] [address] [id number] [place] [address] Sep, [facility] [place] [facility] [address] [id number] [place] [address] Aug, [facility] [place] [facility] [address] [id number] [place] [address] Aug, [facility] [place] [facility] [address] [id number] [place] [address] Aug, [facility] [place] [facility] [id number] [place] [address] Aug, [facility] [place] [facility] [address] [id number] [place] [address] Aug, [facility] [place] [facility] [address] [id number] [place] [address] Aug, [facility] [place] [facility] [address] [id number] [place] [address] Jul, [facility] [place] [facility] [address] [id number] [place] [address] Jun, [facility] [place] [facility] [address] [id number] [place] [address] Apr, [facility] [place] [facility] [address] [id number] [place] [address] Apr, [facility] [place] [facility] [address] [id number] [place] [address] Apr, [facility] [place] [facility] [address] [id number] [place] [address] Apr, [facility] [place] [facility] [address] [id number] [place] [address] March, [facility] [place] [facility] [address] [id number] [place] [address] March, [facility] [place] [facility] [address] [id number] [place] [address] March, [facility] [place] [facility] [address] [id number] [place] [address] March, [facility] [place] [facility] [address] [id number] [place] [address] March, [facility] [place] [facility] [address] [id number] [place] [address] Feb, [facility] [place] [facility] [address] [id number] [place] [address] Feb, [facility] [place] [facility] [address] [id number] [place] [address] Feb, [facility] [place] [facility] [address] [id number] [place] [address] Feb, [facility] [place] [facility] [address] [id number] [place] [address] Jan, [facility] [place] [facility] [address] [id number] [place] [address] Jan, [facility] [place] [facility] [address] [id number] [place] [address] Jan, [facility] [place] [facility] [address] [id number] [place] [address] Dec, [facility] [place] [facility] [address] [id number] [place] [address] 15 Dec, 2011 [facility] [place] [facility] [address] [id number] [place] [address] 14 Dec, 2011 [facility] [place] [facility] [address] [id number] [place] [address] 08 Dec, 2011 [facility] [place] [facility] [address] [id number] [place] [address] 08 Dec, 2011 [facility] [place] [address] [id number] [place] [address] Nov, [facility] [place] [address] [id number] [place] [address] Nov, [facility] [place] [address] [id number] [place] [address] Nov, [facility] [place] [id number] [place] [address] Oct, [facility] [place] [id number] [place] [address] Oct, [facility] [place] [id number] [place] [address] Oct, [facility] [place] [address] [id number] [place] [address] Sep, [facility] [place] [address] [id number] [place] [address] Jul, [facility] [place] [address] [id number] [place] [address] Apr, IMMUNIZATIONS No Known Immunizations SOCIAL HISTORY [...]
--- OUTSIDE RECORDS SUMMARY | 2020-01-05 17:39 | XMS REPORT ---
Author Author Porfirio ESCALANTE Organization [facility] Address [address] [place] [address] Care Team Providers Care Mold Setter Name Role Phone KUN ESCALANTE Unavailable PROBLEMS Type Condition ICD9-CM Code [id number] Code Onset Dates Condition S tatus SNOMED Code Problem Hypertriglyceridemia E78.1 Active 470795162 Problem Lumbago with sciatica, right side M54.41 Active 501719981 Problem Muscle pain M79.1 Active 36971637 Problem GERD (gastroesophageal reflux disease) K21.9 Active 089375306 Problem Neuropathy G62.9 Active 785706102 Problem Diabetes E11.9 Active 031453772 Problem Type 2 diabetes mellitus with complication E11.8 Active 71209762 Problem Bipolar I disorder, moderate , current or most recent episode depressed, with anxious distress F31.32 Active 466407 06 Problem Coronary artery disease invo lving cheesh-na coronary artery of cheesh-na heart without angina pectoris I25.10 Active 1641 [id number] Problem Restless leg syndrome G25.81 Active 10361752 Problem Stage II pressure ulcer of left buttock L89.322 Active 132425635 ALLERGIES No Information ENCOUNTERS Encounter Location Date Diagnosis [facility] [id number] [place] [address] 28 Dec, 2019 [facility] [id number] [place] [address] Dec, [facility] [id number] [place] [address] 24 Nov, 2019 Spinal stenosis of cervical region M48.0 2 [place] [id number] [place] [address] 16 Nov, 2019 Lumbar back pain with radiculopathy affe cting right lower extremity M54.16 [place] [address] [address] 15 Nov, 2019 [facility] [address] [address] 15 Nov, 2019 [facility] [address] [address] 13 Nov, 2019 Type 2 diabetes mellitus with complicati on E11.8 [facility] [address] [address] 09 Nov, 2019 [facility] [address] [address] Oct, Spinal stenosis of cervical region M48.0 2 [facility] [address] [address] Oct, [facility] [address] [address] Oct, Spinal stenosis of cervical region M48.0 2 [place] [address] [address] Oct, [facility] [address] [address] Oct, Restless leg syndrome G25.81 and Bipolar I disorder, moderate, current or most recent episode depressed, with anxious distress F31.32 [facility] [address] [address] Oct, [facility] [address] [address] Oct, Coronary artery disease involving cheesh-na coronary artery of cheesh-na heart without angina pectoris I25.10 ; GERD (gastroesophageal reflux disease) K21.9 and Diabetes E11.9 [place] [address] [address] Sep, [facility] [address] [address] Sep, [place] [address] [address] Sep, [facility] [address] [address] Sep, Spinal stenosis of cervical region M48.0 2 [facility] [address] [address] Sep, [facility] [address] [address] Sep, Spinal stenosis of cervical region M48.0 2 ; Lumbago with sciatica, right side M54.41 ; Type 2 diabetes mellitus with complication E11.8 and Stage II pressure ulcer of left buttock L89.322 [facility] [address] [address] Aug, Bipolar I disorder, moderate, current or most recent episode depressed, with anxious distress F31.32 and Restless leg syndrome G25.81 [facility] [address] [address] Aug, [facility] [address] [address] Aug, [facility] [address] [address] Aug, [facility] [address] [address] Aug, [facility] [address] [address] Aug, [facility] [address] [address] Aug, Spinal stenosis in cervical region M48.0 2 [facility] [address] [address] Jul, Bipolar I disorder, moderate, current or most recent episode depressed, with anxious distress F31.32 [facility] [address] [address] Jul, Bipolar I disorder, moderate, current or most recent episode depressed, with anxious distress F31.32 [facility] [address] [address] 18 Jul, 2019 Type 2 diabetes mellitus with complicati on E11.8 ; Coronary artery disease involving cheesh-na coronary artery of cheesh-na heart without angina pectoris I25.10 ; Bipolar I disorder, moderate, current or most recent episode depressed, with anxious distress F31.32 ; Localized edema R60.0 ; Financial difficulties Z59.8 and Spinal stenosis in cervical region M48.02 [facility] [address] [address] Jul, [facility] [address] [address] Jul, [place] [address] [address] Jul, [facility] [address] [address] Jul, [facility] [place] [address] [address] Jun, Spinal stenosis of cervical region M48.0 2 ; Fall with injury, subsequent encounter W19.XXXD ; Spinal stenosis of lumbar region with neurogenic claudication M48.062 ; Contusion of left eyebrow, subsequent encounter S00.12XD and Type 2 diabetes mellitus with complication E11.8 [facility] [address] [address] Jun, Bipolar I disorder, moderate, current or most recent episode depressed, with anxious distress F31.32 [facility] [address] [address] Jun, [facility] [address] [address] Jun, [facility] [address] [address] Jun, [facility] [address] [address] Jun, [place] [id number] [place] [address] May, [facility] [address] [address] May, Lumbar back pain with radiculopathy affe cting right lower extremity M54.16 ; Cervicalgia M54.2 ; History of streptococcal infection Z86.19 ; Hypertriglyceridemia E78.1 ; Bipolar 1 disorder F31.9 and Does not have health insurance Z59.8 [facility] [address] [address] May, Radiculopathy of arm M54.10 [place] [address] [address] May, [facility] [address] [facility] [id number] [address] [place] [address] May, Fever R50.9 [place] [address] [address] May, [facility] [address] [address] March, Type 2 diabetes mellitus with complicati on E11.8 [place] [address] [address] March, Patellar tendinitis, right knee M76.51 [place] [address] [address] March, Radiculopathy of arm M54.10 [place] [address] [address] March, [facility] [address] [address] March, Type 2 diabetes mellitus with complicati on E11.8 ; Hoarseness of voice R49.0 and Acute pain of right knee M25.561 [facility] [address] [address] March, [place] [address] [address] March, [facility] [address] [address] Feb, Bipolar 1 disorder F31.9 [place] [address] [address] Feb, Bipolar 1 disorder F31.9 [place] [address] [address] Jan, [facility] [address] [address] Dec, Type 2 diabetes mellitus with complicati on E11.8 [facility] [address] [address] Dec, Acute non-recurrent maxillary sinusitis J01.00 [place] [address] [address] Nov, Bipolar 1 disorder F31.9 ; Rash R21 ; Ac celsa non-recurrent maxillary sinusitis J01.00 and Type 2 diabetes mellitus with complication E11.8 [place] [address] [address] Oct, Hypertriglyceridemia E78.1 [facility] [address] [address] 10 Oct, 2018 Type 2 diabetes mellitus with complicati on E11.8 and Fatigue due to excessive exertion, initial encounter T73.3XXA [facility] [address] [address] Oct, [place] [address] [address] Sep, [place] [address] [address] Sep, Radiculopathy of arm M54.10 [place] [address] [address] Sep, [facility] [address] [id number] [place] [address] May, [facility] [id number] [place] [address] May, Radiculopathy of arm M54.10 [facility] [id number] [place] [address] May, [facility] [id number] [place] [address] May, [facility] [id number] [place] [address] May, Radiculopathy of arm M54.10 [facility] [id number] [place] [address] Apr, Radiculopathy of arm M54.10 [facility] [id number] [place] [address] March, Radiculopathy of arm M54.10 [facility] [id number] [place] [address] March, Radiculopathy of arm M54.10 [facility] [id number] [place] [address] March, Radiculopathy of arm M54.10 [facility] [id number] [place] [address] March, Type 2 diabetes mellitus with complicati on E11.8 ; Radiculopathy of arm M54.10 and Muscle pain M79.1 [facility] [id number] [place] [address] Feb, Muscle pain M79.1 [facility] [id number] [place] [address] Jan, Type 2 diabetes mellitus with complicati on E11.8 [facility] [id number] [place] [address] Jan, [facility] [id number] [place] [address] Dec, Muscle pain M79.1 [place] [address] [address] Nov, Muscle pain M79.1 and Acute pain of righ t shoulder M25.511 [place] [address] [address] Nov, [place] [address] [address] Nov, [place] [address] [address] Nov, Type 2 diabetes mellitus with complicati on E11.8 [place] [address] [address] Nov, Impingement syndrome of left shoulder M7 5.42 and Impingement syndrome of right shoulder M75.41 [place] [address] [address] Oct, Type 2 diabetes mellitus with complicati on E11.8 ; Acute pain of right shoulder M25.511 ; Abscess of finger of right hand L02.511 and Umbilical hernia without obstruction and without gangrene K42.9 [place] [id number] [place] [address] Oct, [facility] [address] [facility] [id number] [place] [address] Oct, Mucoid otitis media, unspeci fied chronicity, unspecified laterality H65.90 and Abscess of finger of right hand L02.511 [place] [id number] [place] [address] Oct, [facility] [address] [address] Sep, [facility] [address] [address] Aug, [place] [address] [address] 14 Jul, 2017 Sprain of right acromioclavicular ligame nt, initial encounter S43.51XA ; Impingement syndrome of left shoulder M75.42 and Impingement syndrome of right shoulder M75.41 [place] [address] [address] 14 Jul, 2017 Type 2 diabetes mellitus with complicati on E11.8 [place] [address] [address] Jun, [place] [address] [address] Jun, Type 2 diabetes mellitus with complicati on E11.8 ; Lumbago with sciatica, right side M54.41 ; 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 and Pain in left shoulder M25.512 [place] [address] [address] May, [place] [address] [address] May, [place] [address] [address] Apr, Lumbago with sciatica, right side M54.41 and Neck pain on left side M54.2 [place] [address] [address] Apr, [place] [address] [address] Apr, [place] [address] [address] March, [place] [address] [address] March, [place] [address] [address] Feb, Acute pain of right shoulder M25.511 [facility] [address] [address] Feb, [facility] [address] [address] Feb, [facility] [address] [address] Feb, Type 2 diabetes mellitus with complicati on E11.8 ; Neuropathy G62.9 and Acute pain of right shoulder M25.511 [place] [address] [address] Dec, Type 2 diabetes mellitus with complicati on E11.8 [place] [address] [address] Nov, [place] [address] [address] Oct, Arthrosis of right acromioclavicular echo nt M19.011 [place] [address] [address] Oct, Type 2 diabetes mellitus with complicati on E11.8 [place] [address] [address] Sep, Type 2 diabetes mellitus with complicati on E11.8 ; Acute pain of right shoulder M25.511 and Prostate cancer screening Z12.5 [place] [address] [address] Sep, [place] [address] [address] Jun, [facility] [address] [address] Jun, Muscle tension headache G44.209 and Brux ism F45.8 [facility] [address] [address] May, Type 2 diabetes mellitus with complicati on E11.8 ; Erectile dysfunction, unspecified erectile dysfunction type N52.9 and Neuropathy G62.9 [facility] [address] [address] 13 Feb, 2016 [facility] [address] [address] Feb, Type 2 diabetes mellitus with complicati on E11.8 [facility] [address] [address] Dec, [facility] [address] [address] Dec, Type 2 diabetes mellitus with complicati on E11.8 [facility] [address] [address] Nov, Nausea and vomiting, unspecified intacta bility, vomiting of unspecified type R11.2 [place] [address] [address] Oct, Neuropathy G62.9 and Type 2 diabetes kermit litus with complication E11.8 [facility] [address] [address] Sep, [facility] [address] [address] Sep, [facility] [address] [address] Sep, Diabetes E11.9 [facility] [address] [address] Sep, [facility] [address] [address] Jul, [facility] [address] [address] Jun, [facility] [address] [address] Jun, Secondary diabetes mellitus with neurolo gical manifestations, not stated as uncontrolled, or unspecified 249.60 ; Other chronic pain 338.29 and Puncture wound 879.8 [facility] [id number] [place] [address] May, [facility] [id number] [place] [address] Apr, [facility] [id number] [place] [address] March, [facility] [place] [facility] [id number] [place] [address] Feb, [facility] [place] [facility] [id number] [place] [address] Feb, [facility] [place] [facility] [id number] [place] [address] Jan, [facility] [place] [facility] [id number] [place] [address] Jan, [facility] [id number] [place] [address] Jan, [facility] [place] [facility] [id number] [place] [address] Jan, [facility] [place] [facility] [id number] [place] [address] Jan, [facility] [id number] [place] [address] Jan, [facility] [place] [facility] [id number] [place] [address] Jan, [facility] [place] [facility] [id number] [place] [address] Jan, [facility] [place] [facility] [id number] [place] [address] Dec, [facility] [place] [facility] [id number] [place] [address] Dec, [facility] [place] [facility] [id number] [place] [address] Nov, [facility] [place] [facility] [address] [id number] [place] [address] Nov, [facility] [place] [facility] [address] [id number] [place] [address] Nov, [facility] [place] [facility] [address] [id number] [place] [address] Nov, [facility] [place] [facility] [address] [id number] [place] [address] Nov, [facility] [place] [facility] [address] [id number] [place] [address] Nov, [facility] [place] [facility] [address] [id number] [place] [address] Oct, [facility] [place] [facility] [address] [id number] [place] [address] Oct, [facility] [place] [facility] [address] [id number] [place] [address] Oct, [facility] [place] [facility] [address] [id number] [place] [address] Oct, [facility] [place] [facility] [address] [id number] [place] [address] Oct, [facility] [place] [facility] [address] [id number] [place] [address] Oct, [facility] [place] [facility] [address] [id number] [place] [address] Oct, [facility] [place] [facility] [address] [id number] [place] [address] Oct, [facility] [place] [facility] [address] [id number] [place] [address] Oct, [facility] [place] [facility] [address] [id number] [place] [address] Sep, [facility] [place] [facility] [address] [id number] [place] [address] Sep, [facility] [place] [facility] [address] [id number] [place] [address] Sep, [facility] [place] [facility] [address] [id number] [place] [address] Sep, [facility] [place] [facility] [address] [id number] [place] [address] Sep, [facility] [place] [facility] [address] [id number] [place] [address] Sep, [facility] [place] [facility] [address] [id number] [place] [address] Sep, [facility] [place] [facility] [address] [facility] [id number] [place] [address] Aug, [facility] [place] [facility] [address] [id number] [place] [address] Aug, [facility] [place] [facility] [address] [id number] [place] [address] 16 Aug, 2014 [facility] [place] [facility] [address] [id number] [place] [address] 16 Aug, 2014 [facility] [place] [facility] [address] [id number] [place] [address] 14 Aug, 2014 [facility] [place] [facility] [address] [id number] [place] [address] 14 Aug, 2014 [facility] [place] [facility] [address] [id number] [place] [address] 26 Jul, 2013 [facility] [place] [facility] [address] [id number] [place] [address] 25 Jul, 2013 [facility] [place] [facility] [address] [id number] [place] [address] 25 Jul, 2013 [facility] [place] [facility] [address] [id number] [place] [address] 25 Jul, 2013 [facility] [place] [facility] [address] [id number] [place] [address] 25 Jul, 2013 [facility] [place] [facility] [address] [id number] [place] [address] 19 Jul, 2013 [facility] [place] [facility] [address] [id number] [place] [address] Jul, 2013 [facility] [place] [facility] [address] [id number] [place] [address] Jul, [facility] [place] [facility] [address] [facility] [id number] [facility] [place] [address] Jul, [facility] [place] [facility] [address] [facility] [id number] [facility] [place] [address] Jul, [facility] [place] [facility] [address] [facility] [id number] [facility] [place] [address] Jun, [facility] [place] [facility] [address] [facility] [id number] [place] [address] Jun, [facility] [place] [facility] [address] [facility] [id number] [place] [address] Jun, [facility] [place] [facility] [address] [id number] [place] [address] Jun, [facility] [place] [facility] [address] [id number] [place] [address] Jun, [facility] [place] [facility] [address] [facility] [id number] [facility] [place] [address] Jun, [facility] [place] [facility] [address] [id number] [place] [address] Jun, [facility] [place] [facility] [address] [id number] [place] [address] Jun, [facility] [place] [facility] [address] [id number] [facility] [place] [address] May, [facility] [place] [facility] [address] [id number] [facility] [place] [address] May, [facility] [place] [facility] [address] [id number] [place] [address] May, [facility] [place] [facility] [address] [facility] [id number] [place] [address] May, [facility] [place] [facility] [address] [id number] [place] [address] May, [facility] [place] [facility] [address] [id number] [facility] [place] [address] May, [facility] [place] [facility] [address] [facility] [id number] [place] [address] May, [facility] [place] [facility] [address] [facility] [id number] [place] [address] May, [facility] [place] [facility] [address] [id number] [place] [address] May, [facility] [place] [facility] [address] [facility] [id number] [place] [address] May, [facility] [place] [facility] [address] [facility] [id number] [place] [address] May, [facility] [place] [facility] [address] [id number] [place] [address] May, [facility] [place] [facility] [address] [id number] [place] [address] May, [facility] [place] [facility] [address] [id number] [place] [address] Apr, [facility] [place] [facility] [address] [facility] [id number] [place] [address] Apr, [facility] [place] [facility] [address] [id number] [place] [address] Apr, [facility] [place] [facility] [address] [id number] [place] [address] Apr, [facility] [place] [facility] [address] [id number] [place] [address] Apr, [facility] [place] [facility] [address] [facility] [id number] [place] [address] Apr, [facility] [place] [facility] [address] [id number] [place] [address] March, [facility] [place] [facility] [address] [id number] [place] [address] March, [facility] [place] [facility] [address] [id number] [place] [address] March, [facility] [place] [facility] [address] [facility] [id number] [place] [address] 30 Feb, 2014 [facility] [place] [facility] [address] [facility] [id number] [facility] [place] [address] 24 Feb, 2014 [facility] [place] [facility] [address] [id number] [place] [address] Feb, [facility] [place] [facility] [address] [id number] [facility] [address] Feb, [facility] [place] [facility] [address] [facility] [id number] [place] [address] Feb, [facility] [place] [facility] [address] [id number] [place] [address] Feb, [facility] [place] [facility] [address] [id number] [place] [address] Feb, [facility] [place] [facility] [address] [id number] [place] [address] Feb, [facility] [place] [facility] [address] [id number] [place] [address] Feb, [facility] [place] [facility] [address] [id number] [place] [address] Feb, [facility] [place] [facility] [address] [id number] [place] [address] Feb, [facility] [place] [facility] [address] [id number] [place] [address] Jan, [facility] [place] [facility] [address] [id number] [place] [address] Jan, [facility] [place] [facility] [address] [id number] [place] [address] Jan, [facility] [place] [facility] [address] [id number] [place] [address] Jan, [facility] [place] [facility] [address] [id number] [place] [address] Jan, [facility] [place] [facility] [address] [id number] [place] [address] Jan, [facility] [place] [facility] [address] [facility] [id number] [place] [address] Dec, [facility] [place] [facility] [address] [id number] [place] [address] Dec, [facility] [place] [facility] [address] [id number] [place] [address] Dec, [facility] [place] [facility] [address] [id number] [place] [address] Dec, [facility] [place] [facility] [address] [id number] [place] [address] Nov, [facility] [place] [facility] [address] [id number] [place] [address] Nov, [facility] [place] [facility] [address] [id number] [place] [address] Nov, [facility] [place] [facility] [address] [id number] [place] [address] Nov, [facility] [place] [facility] [address] [id number] [place] [address] Nov, [facility] [place] [facility] [address] [id number] [place] [address] Nov, [facility] [place] [facility] [address] [id number] [place] [address] Oct, [facility] [place] [facility] [address] [id number] [place] [address] Oct, [facility] [place] [facility] [address] [id number] [place] [address] 05 Oct, 2013 [facility] [place] [facility] [address] [id number] [place] [address] 05 Oct, 2013 [facility] [place] [facility] [address] [id number] [place] [address] Oct, [facility] [place] [facility] [address] [id number] [place] [address] Oct, [facility] [place] [facility] [address] [id number] [place] [address] Sep, [facility] [place] [facility] [address] [id number] [place] [address] Sep, [facility] [place] [facility] [address] [id number] [place] [address] Sep, [facility] [place] [facility] [address] [id number] [place] [address] Sep, [facility] [place] [facility] [address] [id number] [place] [address] Sep, [facility] [place] [facility] [address] [id number] [place] [address] Sep, [facility] [place] [facility] [address] [id number] [place] [address] Aug, [facility] [place] [facility] [address] [id number] [place] [address] Aug, [facility] [place] [facility] [address] [id number] [place] [address] Aug, [facility] [place] [facility] [address] [id number] [place] [address] Aug, [facility] [place] [facility] [address] [id number] [place] [address] Jul, [facility] [place] [facility] [address] [id number] [place] [address] Jul, [facility] [place] [facility] [address] [id number] [place] [address] Jun, [facility] [place] [facility] [address] [id number] [place] [address] Jun, [facility] [place] [facility] [address] [id number] [place] [address] May, [facility] [place] [facility] [address] [id number] [place] [address] May, [facility] [place] [facility] [address] [id number] [place] [address] May, [facility] [place] [facility] [address] [id number] [place] [address] May, [facility] [place] [facility] [address] [id number] [place] [address] May, [facility] [place] [facility] [address] [id number] [place] [address] May, [facility] [place] [facility] [address] [id number] [place] [address] Apr, [facility] [place] [facility] [address] [id number] [place] [address] Apr, [facility] [place] [facility] [address] [id number] [place] [address] Apr, [facility] [place] [facility] [address] [id number] [place] [address] Apr, [facility] [place] [facility] [address] [id number] [place] [address] March, [facility] [place] [facility] [address] [id number] [place] [address] March, [facility] [place] [facility] [address] [id number] [place] [address] March, [facility] [place] [facility] [address] [id number] [place] [address] Feb, [facility] [place] [facility] [address] [id number] [place] [address] Feb, [facility] [place] [facility] [address] [id number] [place] [address] Jan, [facility] [place] [facility] [address] [id number] [place] [address] Dec, [facility] [place] [facility] [address] [id number] [place] [address] Dec, [facility] [place] [facility] [address] [id number] [place] [address] Dec, [facility] [place] [facility] [address] [id number] [place] [address] Dec, [facility] [place] [facility] [address] [id number] [place] [address] Dec, [facility] [place] [facility] [address] [id number] [place] [address] Nov, [facility] [place] [facility] [address] [id number] [place] [address] Nov, [facility] [place] [facility] [address] [id number] [place] [address] Nov, [facility] [place] [facility] [address] [id number] [place] [address] Nov, [facility] [place] [facility] [address] [id number] [place] [address] Nov, [facility] [place] [facility] [address] [id number] [place] [address] Oct, [facility] [place] [facility] [address] [id number] [place] [address] Oct, [facility] [place] [facility] [address] [id number] [place] [address] Oct, [facility] [place] [facility] [address] [id number] [place] [address] Oct, [facility] [place] [facility] [address] [id number] [place] [address] Sep, [facility] [place] [facility] [address] [id number] [place] [address] Sep, [facility] [place] [facility] [address] [id number] [place] [address] Sep, [facility] [place] [facility] [id number] [place] [address] Sep, [facility] [place] [facility] [address] [id number] [place] [address] Sep, [facility] [place] [facility] [address] [id number] [place] [address] Sep, [facility] [place] [facility] [address] [id number] [place] [address] Sep, [facility] [place] [facility] [address] [id number] [place] [address] Sep, [facility] [place] [facility] [address] [id number] [place] [address] Sep, [facility] [place] [facility] [address] [id number] [place] [address] Sep, [facility] [place] [facility] [address] [id number] [place] [address] Aug, [facility] [place] [facility] [address] [id number] [place] [address] Aug, [facility] [place] [facility] [address] [id number] [place] [address] Aug, [facility] [place] [facility] [id number] [place] [address] Aug, [facility] [place] [facility] [address] [id number] [place] [address] Aug, [facility] [place] [facility] [address] [id number] [place] [address] Aug, [facility] [place] [facility] [address] [id number] [place] [address] Jul, [facility] [place] [facility] [address] [id number] [place] [address] Jun, [facility] [place] [facility] [address] [id number] [place] [address] Apr, [facility] [place] [facility] [address] [id number] [place] [address] Apr, [facility] [place] [facility] [address] [id number] [place] [address] Apr, [facility] [place] [facility] [address] [id number] [place] [address] Apr, [facility] [place] [facility] [address] [id number] [place] [address] March, [facility] [place] [facility] [address] [id number] [place] [address] March, [facility] [place] [facility] [address] [id number] [place] [address] March, [facility] [place] [facility] [address] [id number] [place] [address] March, [facility] [place] [facility] [address] [id number] [place] [address] March, [facility] [place] [facility] [address] [id number] [place] [address] Feb, [facility] [place] [facility] [address] [id number] [place] [address] Feb, [facility] [place] [facility] [address] [id number] [place] [address] Feb, [facility] [place] [facility] [address] [id number] [place] [address] Feb, [facility] [place] [facility] [address] [id number] [place] [address] Jan, [facility] [place] [facility] [address] [id number] [place] [address] Jan, [facility] [place] [facility] [address] [id number] [place] [address] Jan, [facility] [place] [facility] [address] [id number] [place] [address] Dec, [facility] [place] [facility] [address] [id number] [place] [address] 15 Dec, 2011 [facility] [place] [facility] [address] [id number] [place] [address] 14 Dec, 2011 [facility] [place] [facility] [address] [id number] [place] [address] 08 Dec, 2011 [facility] [place] [facility] [address] [id number] [place] [address] 08 Dec, 2011 [facility] [address] [id number] [place] [address] Nov, [facility] [address] [id number] [place] [address] Nov, [facility] [address] [id number] [place] [address] Nov, [facility] [id number] [place] [address] Oct, [facility] [id number] [place] [address] Oct, [facility] [id number] [place] [address] Oct, [facility] [address] [id number] [place] [address] Sep, [facility] [address] [id number] [place] [address] Jul, [facility] [address] [id number] [place] [address] Apr, IMMUNIZATIONS No Known Immunizations SOCIAL HISTORY [...]
--- OUTSIDE RECORDS SUMMARY | 2020-01-05 17:40 | XMS REPORT ---
Author Author Porfirio ESCALANTE Organization [facility] Address [address] [place] [address] Care Team Providers Care Machine Welt Butter Name Role Phone KUN ESCALANTE Unavailable PROBLEMS Type Condition ICD9-CM Code OQV61-MA Code Onset Dates Condition S tatus SNOMED Code Problem Hypertriglyceridemia E78.1 Active 506371213 Problem Lumbago with sciatica, right side M54.41 Active 175959559 Problem Muscle pain M79.1 Active 83204043 Problem GERD (gastroesophageal reflux disease) K21.9 Active 570082510 Problem Neuropathy G62.9 Active 083188001 Problem Diabetes E11.9 Active 650649239 Problem Type 2 diabetes mellitus with complication E11.8 Active 02657982 Problem Bipolar I disorder, moderate , current or most recent episode depressed, with anxious distress F31.32 Active 349908 06 Problem Coronary artery disease invo lving [place] coronary artery of [place] heart without angina pectoris I25.10 Active 1641 178940277 Problem Restless leg syndrome G25.81 Active 32566994 Problem Stage II pressure ulcer of left buttock L89.322 Active 115071703 ALLERGIES No Information ENCOUNTERS Encounter Location Date Diagnosis [place] [id number] [place] [address] 28 Dec, 2019 [facility] [id number] [place] [address] Dec, [place] [id number] [place] [address] 24 Nov, 2019 Spinal stenosis of cervical region M48.0 2 [place] [id number] [place] [address] 16 Nov, 2019 Lumbar back pain with radiculopathy affe cting right lower extremity M54.16 [place] [address] [address] 15 Nov, 2019 [facility] [address] [address] 15 Nov, 2019 [facility] [address] [address] 13 Nov, 2019 Type 2 diabetes mellitus with complicati on E11.8 [facility] [address] [address] 09 Nov, 2019 [facility] [address] [address] Oct, Spinal stenosis of cervical region M48.0 2 [facility] [address] [address] Oct, [facility] [address] [address] Oct, Spinal stenosis of cervical region M48.0 2 [place] [address] [address] Oct, [facility] [address] [address] Oct, Restless leg syndrome G25.81 and Bipolar I disorder, moderate, current or most recent episode depressed, with anxious distress F31.32 [place] [address] [address] Oct, [facility] [address] [address] Oct, Coronary artery disease involving [place] coronary artery of [place] heart without angina pectoris I25.10 ; GERD (gastroesophageal reflux disease) K21.9 and Diabetes E11.9 [place] [address] [address] Sep, [facility] [address] [address] Sep, [place] [address] [address] Sep, [facility] [address] [address] Sep, Spinal stenosis of cervical region M48.0 2 [facility] [address] [address] Sep, [facility] [address] [address] Sep, Spinal stenosis of cervical region M48.0 2 ; Lumbago with sciatica, right side M54.41 ; Type 2 diabetes mellitus with complication E11.8 and Stage II pressure ulcer of left buttock L89.322 [facility] [address] [address] Aug, Bipolar I disorder, moderate, current or most recent episode depressed, with anxious distress F31.32 and Restless leg syndrome G25.81 [facility] [address] [address] Aug, [facility] [address] [address] Aug, [facility] [address] [address] Aug, [facility] [address] [address] Aug, [facility] [address] [address] Aug, [facility] [address] [address] Aug, Spinal stenosis in cervical region M48.0 2 [facility] [address] [address] Jul, Bipolar I disorder, moderate, current or most recent episode depressed, with anxious distress F31.32 [facility] [address] [address] Jul, Bipolar I disorder, moderate, current or most recent episode depressed, with anxious distress F31.32 [facility] [address] [address] 18 Jul, 2019 Type 2 diabetes mellitus with complicati on E11.8 ; Coronary artery disease involving [place] coronary artery of [place] heart without angina pectoris I25.10 ; Bipolar I disorder, moderate, current or most recent episode depressed, with anxious distress F31.32 ; Localized edema R60.0 ; Financial difficulties Z59.8 and Spinal stenosis in cervical region M48.02 [facility] [address] [address] Jul, [facility] [address] [address] Jul, [place] [address] [address] Jul, [place] [address] [address] Jul, [place] [address] [address] Jun, Spinal stenosis of cervical region M48.0 2 ; Fall with injury, subsequent encounter W19.XXXD ; Spinal stenosis of lumbar region with neurogenic claudication M48.062 ; Contusion of left eyebrow, subsequent encounter S00.12XD and Type 2 diabetes mellitus with complication E11.8 [place] [address] [address] Jun, Bipolar I disorder, moderate, current or most recent episode depressed, with anxious distress F31.32 [facility] [address] [address] Jun, [facility] [address] [address] Jun, [facility] [address] [address] Jun, [facility] [address] [address] Jun, [place] [id number] [place] [address] May, [facility] [address] [address] May, Lumbar back pain with radiculopathy affe cting right lower extremity M54.16 ; Cervicalgia M54.2 ; History of streptococcal infection Z86.19 ; Hypertriglyceridemia E78.1 ; Bipolar 1 disorder F31.9 and Does not have health insurance Z59.8 [facility] [address] [address] May, Radiculopathy of arm M54.10 [place] [address] [address] May, [facility] [address] [facility] [id number] [address] [place] [address] May, Fever R50.9 [place] [address] [address] May, [facility] [address] [address] March, Type 2 diabetes mellitus with complicati on E11.8 [place] [address] [address] March, Patellar tendinitis, right knee M76.51 [place] [address] [address] March, Radiculopathy of arm M54.10 [place] [address] [address] March, [place] [address] [address] March, Type 2 diabetes mellitus with complicati on E11.8 ; Hoarseness of voice R49.0 and Acute pain of right knee M25.561 [place] [address] [address] March, [facility] [address] [address] March, [place] [address] [address] Feb, Bipolar 1 disorder F31.9 [place] [address] [address] Feb, Bipolar 1 disorder F31.9 [place] [address] [address] Jan, [place] [address] [address] Dec, Type 2 diabetes mellitus with complicati on E11.8 [place] [address] [address] Dec, Acute non-recurrent maxillary sinusitis J01.00 [place] [address] [address] Nov, Bipolar 1 disorder F31.9 ; Rash R21 ; Ac celsa non-recurrent maxillary sinusitis J01.00 and Type 2 diabetes mellitus with complication E11.8 [facility] [address] [address] Oct, Hypertriglyceridemia E78.1 [place] [address] [address] 10 Oct, 2018 Type 2 diabetes mellitus with complicati on E11.8 and Fatigue due to excessive exertion, initial encounter T73.3XXA [place] [address] [address] Oct, [place] [address] [address] Sep, [place] [address] [address] Sep, Radiculopathy of arm M54.10 [place] [address] [address] Sep, [facility] [address] [id number] [place] [address] May, [facility] [id number] [place] [address] May, Radiculopathy of arm M54.10 [facility] [id number] [place] [address] May, [facility] [id number] [place] [address] May, [facility] [id number] [place] [address] May, Radiculopathy of arm M54.10 [facility] [id number] [place] [address] Apr, Radiculopathy of arm M54.10 [facility] [id number] [place] [address] March, Radiculopathy of arm M54.10 [facility] [id number] [place] [address] March, Radiculopathy of arm M54.10 [facility] [id number] [place] [address] March, Radiculopathy of arm M54.10 [facility] [id number] [place] [address] March, Type 2 diabetes mellitus with complicati on E11.8 ; Radiculopathy of arm M54.10 and Muscle pain M79.1 [facility] [id number] [place] [address] Feb, Muscle pain M79.1 [facility] [id number] [place] [address] Jan, Type 2 diabetes mellitus with complicati on E11.8 [facility] [id number] [place] [address] Jan, [facility] [id number] [place] [address] Dec, Muscle pain M79.1 [place] [address] [address] Nov, Muscle pain M79.1 and Acute pain of righ t shoulder M25.511 [place] [address] [address] Nov, [place] [address] [address] Nov, [place] [address] [address] Nov, Type 2 diabetes mellitus with complicati on E11.8 [place] [address] [address] Nov, Impingement syndrome of left shoulder M7 5.42 and Impingement syndrome of right shoulder M75.41 [place] [address] [address] Oct, Type 2 diabetes mellitus with complicati on E11.8 ; Acute pain of right shoulder M25.511 ; Abscess of finger of right hand L02.511 and Umbilical hernia without obstruction and without gangrene K42.9 [place] [id number] [place] [address] Oct, [facility] [address] [facility] [id number] [address] [address] Oct, Mucoid otitis media, unspeci fied chronicity, unspecified laterality H65.90 and Abscess of finger of right hand L02.511 [place] [id number] [place] [address] Oct, [facility] [address] [address] Sep, [facility] [address] [address] Aug, [place] [address] [address] 14 Jul, 2017 Sprain of right acromioclavicular ligame nt, initial encounter S43.51XA ; Impingement syndrome of left shoulder M75.42 and Impingement syndrome of right shoulder M75.41 [place] [address] [address] 14 Jul, 2017 Type 2 diabetes mellitus with complicati on E11.8 [place] [address] [address] Jun, [place] [address] [address] Jun, Type 2 diabetes mellitus with complicati on E11.8 ; Lumbago with sciatica, right side M54.41 ; 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 and Pain in left shoulder M25.512 [place] [address] [address] May, [place] [address] [address] May, [place] [address] [address] Apr, Lumbago with sciatica, right side M54.41 and Neck pain on left side M54.2 [place] [address] [address] Apr, [place] [address] [address] Apr, [place] [address] [address] March, [place] [address] [address] March, [place] [address] [address] Feb, Acute pain of right shoulder M25.511 [facility] [address] [address] Feb, [facility] [address] [address] Feb, [facility] [address] [address] Feb, Type 2 diabetes mellitus with complicati on E11.8 ; Neuropathy G62.9 and Acute pain of right shoulder M25.511 [place] [address] [address] Dec, Type 2 diabetes mellitus with complicati on E11.8 [place] [address] [address] Nov, [place] [address] [address] Oct, Arthrosis of right acromioclavicular echo nt M19.011 [place] [address] [address] Oct, Type 2 diabetes mellitus with complicati on E11.8 [place] [address] [address] Sep, Type 2 diabetes mellitus with complicati on E11.8 ; Acute pain of right shoulder M25.511 and Prostate cancer screening Z12.5 [place] [address] [address] Sep, [place] [address] [address] Jun, [facility] [address] [address] Jun, Muscle tension headache G44.209 and Brux ism F45.8 [facility] [address] [address] May, Type 2 diabetes mellitus with complicati on E11.8 ; Erectile dysfunction, unspecified erectile dysfunction type N52.9 and Neuropathy G62.9 [facility] [address] [address] 13 Feb, 2016 [facility] [address] [address] Feb, Type 2 diabetes mellitus with complicati on E11.8 [facility] [address] [address] Dec, [facility] [address] [address] Dec, Type 2 diabetes mellitus with complicati on E11.8 [facility] [address] [address] Nov, Nausea and vomiting, unspecified intacta bility, vomiting of unspecified type R11.2 [place] [address] [address] Oct, Neuropathy G62.9 and Type 2 diabetes kermit litus with complication E11.8 [facility] [address] [address] Sep, [facility] [address] [address] Sep, [facility] [address] [address] Sep, Diabetes E11.9 [facility] [address] [address] Sep, [facility] [address] [address] Jul, [facility] [address] [address] Jun, [facility] [address] [address] Jun, Secondary diabetes mellitus with neurolo gical manifestations, not stated as uncontrolled, or unspecified 249.60 ; Other chronic pain 338.29 and Puncture wound 879.8 [facility] [id number] [place] [address] May, [facility] [id number] [place] [address] Apr, [facility] [id number] [place] [address] March, [facility] [place] [facility] [id number] [place] [address] Feb, [facility] [place] [facility] [id number] [place] [address] Feb, [facility] [place] [facility] [id number] [place] [address] Jan, [facility] [place] [facility] [id number] [place] [address] Jan, [facility] [id number] [place] [address] Jan, [facility] [place] [facility] [id number] [place] [address] Jan, [facility] [place] [facility] [id number] [place] [address] Jan, [facility] [id number] [place] [address] Jan, [facility] [place] [facility] [id number] [place] [address] Jan, [facility] [place] [facility] [id number] [place] [address] Jan, [facility] [place] [facility] [id number] [place] [address] Dec, [facility] [place] [facility] [id number] [place] [address] Dec, [facility] [place] [facility] [id number] [place] [address] Nov, [facility] [place] [facility] [address] [id number] [place] [address] Nov, [facility] [place] [facility] [address] [id number] [place] [address] Nov, [facility] [place] [facility] [address] [id number] [place] [address] Nov, [facility] [place] [facility] [address] [id number] [place] [address] Nov, [facility] [place] [facility] [address] [id number] [place] [address] Nov, [facility] [place] [facility] [address] [id number] [place] [address] Oct, [facility] [place] [facility] [address] [id number] [place] [address] Oct, [facility] [place] [facility] [address] [id number] [place] [address] Oct, [facility] [place] [facility] [address] [id number] [place] [address] Oct, [facility] [place] [facility] [address] [id number] [place] [address] Oct, [facility] [place] [facility] [address] [id number] [place] [address] Oct, [facility] [place] [facility] [address] [id number] [place] [address] Oct, [facility] [place] [facility] [address] [id number] [place] [address] Oct, [facility] [place] [facility] [address] [id number] [place] [address] Oct, [facility] [place] [facility] [address] [id number] [place] [address] Sep, [facility] [place] [facility] [address] [id number] [place] [address] Sep, [facility] [place] [facility] [address] [id number] [place] [address] Sep, [facility] [place] [facility] [address] [id number] [place] [address] Sep, [facility] [place] [facility] [address] [id number] [place] [address] Sep, [facility] [place] [facility] [address] [id number] [place] [address] Sep, [facility] [place] [facility] [address] [id number] [place] [address] Sep, [facility] [place] [facility] [address] [facility] [id number] [place] [address] Aug, [facility] [place] [facility] [address] [id number] [place] [address] Aug, [facility] [place] [facility] [address] [id number] [place] [address] 16 Aug, 2014 [facility] [place] [facility] [address] [id number] [place] [address] 16 Aug, 2014 [facility] [place] [facility] [address] [id number] [place] [address] 14 Aug, 2014 [facility] [place] [facility] [address] [id number] [place] [address] 14 Aug, 2014 [facility] [place] [facility] [address] [id number] [place] [address] 26 Jul, 2013 [facility] [place] [facility] [address] [id number] [place] [address] 25 Jul, 2013 [facility] [place] [facility] [address] [id number] [place] [address] 25 Jul, 2013 [facility] [place] [facility] [address] [id number] [place] [address] 25 Jul, 2013 [facility] [place] [facility] [address] [id number] [place] [address] 25 Jul, 2013 [facility] [place] [facility] [address] [id number] [place] [address] 19 Jul, 2013 [facility] [place] [facility] [address] [id number] [place] [address] Jul, 2013 [facility] [place] [facility] [address] [id number] [place] [address] Jul, [facility] [place] [facility] [address] [facility] [id number] [facility] [address] Jul, [facility] [place] [facility] [address] [facility] [id number] [facility] [address] Jul, [facility] [place] [facility] [address] [facility] [id number] [facility] [address] Jun, [facility] [place] [facility] [address] [facility] [id number] [place] [address] Jun, [facility] [place] [facility] [address] [facility] [id number] [place] [address] Jun, [facility] [place] [facility] [address] [id number] [place] [address] Jun, [facility] [place] [facility] [address] [id number] [place] [address] Jun, [facility] [place] [facility] [address] [facility] [id number] [facility] [address] Jun, [facility] [place] [facility] [address] [id number] [place] [address] Jun, [facility] [place] [facility] [address] [id number] [place] [address] Jun, [facility] [place] [facility] [address] [id number] [facility] [address] May, [facility] [place] [facility] [address] [id number] [facility] [address] May, [facility] [place] [facility] [address] [id number] [place] [address] May, [facility] [place] [facility] [address] [facility] [id number] [place] [address] May, [facility] [place] [facility] [address] [id number] [place] [address] May, [facility] [place] [facility] [address] [id number] [facility] [address] May, [facility] [place] [facility] [address] [facility] [id number] [place] [address] May, [facility] [place] [facility] [address] [facility] [id number] [place] [address] May, [facility] [place] [facility] [address] [id number] [place] [address] May, [facility] [place] [facility] [address] [facility] [id number] [place] [address] May, [facility] [place] [facility] [address] [facility] [id number] [place] [address] May, [facility] [place] [facility] [address] [id number] [place] [address] May, [facility] [place] [facility] [address] [id number] [place] [address] May, [facility] [place] [facility] [address] [id number] [place] [address] Apr, [facility] [place] [facility] [address] [facility] [id number] [place] [address] Apr, [facility] [place] [facility] [address] [id number] [place] [address] Apr, [facility] [place] [facility] [address] [id number] [place] [address] Apr, [facility] [place] [facility] [address] [id number] [place] [address] Apr, [facility] [place] [facility] [address] [facility] [id number] [place] [address] Apr, [facility] [place] [facility] [address] [id number] [place] [address] March, [facility] [place] [facility] [address] [id number] [place] [address] March, [facility] [place] [facility] [address] [id number] [place] [address] March, [facility] [place] [facility] [address] [facility] [id number] [place] [address] 30 Feb, 2014 [facility] [place] [facility] [address] [facility] [id number] [facility] [address] 24 Feb, 2014 [facility] [place] [facility] [address] [id number] [place] [address] Feb, [facility] [place] [facility] [address] [id number] [facility] [address] Feb, [facility] [place] [facility] [address] [facility] [id number] [place] [address] Feb, [facility] [place] [facility] [address] [id number] [place] [address] Feb, [facility] [place] [facility] [address] [id number] [place] [address] Feb, [facility] [place] [facility] [address] [id number] [place] [address] Feb, [facility] [place] [facility] [address] [id number] [place] [address] Feb, [facility] [place] [facility] [address] [id number] [place] [address] Feb, [facility] [place] [facility] [address] [id number] [place] [address] Feb, [facility] [place] [facility] [address] [id number] [place] [address] Jan, [facility] [address] [id number] [place] [address] Jan, [facility] [address] [id number] [place] [address] Jan, [facility] [address] [id number] [place] [address] Jan, [facility] [address] [id number] [place] [address] Jan, [facility] [address] [id number] [place] [address] Jan, [facility] [address] [facility] [id number] [place] [address] Dec, [facility] [address] [id number] [place] [address] Dec, [facility] [address] [id number] [place] [address] Dec, [facility] [address] [id number] [place] [address] Dec, [facility] [address] [id number] [place] [address] Nov, [facility] [address] [id number] [place] [address] Nov, [facility] [address] [id number] [place] [address] Nov, [facility] [address] [id number] [place] [address] Nov, [facility] [address] [id number] [place] [address] Nov, [facility] [address] [id number] [place] [address] Nov, [facility] [address] [id number] [place] [address] Oct, [facility] [address] [id number] [place] [address] Oct, [facility] [address] [id number] [place] [address] 05 Oct, 2013 [facility] [address] [id number] [place] [address] 05 Oct, 2013 [facility] [address] [id number] [place] [address] Oct, [facility] [address] [id number] [place] [address] Oct, [facility] [address] [id number] [place] [address] Sep, [facility] [address] [id number] [place] [address] Sep, [facility] [address] [id number] [place] [address] Sep, [facility] [address] [id number] [place] [address] Sep, [facility] [address] [id number] [place] [address] Sep, [facility] [address] [id number] [place] [address] Sep, [facility] [address] [id number] [place] [address] Aug, [facility] [address] [id number] [place] [address] Aug, [facility] [address] [id number] [place] [address] Aug, [facility] [address] [id number] [place] [address] Aug, [facility] [address] [id number] [place] [address] Jul, [facility] [address] [id number] [place] [address] Jul, [facility] [address] [id number] [place] [address] Jun, [facility] [address] [id number] [place] [address] Jun, [facility] [address] [id number] [place] [address] May, [facility] [address] [id number] [place] [address] May, [facility] [address] [id number] [place] [address] May, [facility] [address] [id number] [place] [address] May, [facility] [address] [id number] [place] [address] May, [facility] [address] [id number] [place] [address] May, [facility] [address] [id number] [place] [address] Apr, [facility] [address] [id number] [place] [address] Apr, [facility] [address] [id number] [place] [address] Apr, [facility] [address] [id number] [place] [address] Apr, [facility] [address] [id number] [place] [address] March, [facility] [address] [id number] [place] [address] March, [facility] [address] [id number] [place] [address] March, [facility] [address] [id number] [place] [address] Feb, [facility] [address] [id number] [place] [address] Feb, [facility] [address] [id number] [place] [address] Jan, [facility] [address] [id number] [place] [address] Dec, [facility] [address] [id number] [place] [address] Dec, [facility] [address] [id number] [place] [address] Dec, [facility] [address] [id number] [place] [address] Dec, [facility] [address] [id number] [place] [address] Dec, [facility] [address] [id number] [place] [address] Nov, [facility] [address] [id number] [place] [address] Nov, [facility] [address] [id number] [place] [address] Nov, [facility] [address] [id number] [place] [address] Nov, [facility] [address] [id number] [place] [address] Nov, [facility] [address] [id number] [place] [address] Oct, [facility] [address] [id number] [place] [address] Oct, [facility] [address] [id number] [place] [address] Oct, [facility] [address] [id number] [place] [address] Oct, [facility] [address] [id number] [place] [address] Sep, [facility] [address] [id number] [place] [address] Sep, [facility] [address] [id number] [place] [address] Sep, [facility] [id number] [place] [address] Sep, [facility] [address] [id number] [place] [address] Sep, [facility] [address] [id number] [place] [address] Sep, [facility] [address] [id number] [place] [address] Sep, [facility] [address] [id number] [place] [address] Sep, [facility] [address] [id number] [place] [address] Sep, [facility] [address] [id number] [place] [address] Sep, [facility] [address] [id number] [place] [address] Aug, [facility] [address] [id number] [place] [address] Aug, [facility] [address] [id number] [place] [address] Aug, [facility] [id number] [place] [address] Aug, [facility] [address] [id number] [place] [address] Aug, [facility] [address] [id number] [place] [address] Aug, [facility] [address] [id number] [place] [address] Jul, [facility] [address] [id number] [place] [address] Jun, [facility] [address] [id number] [place] [address] Apr, [facility] [address] [id number] [place] [address] Apr, [facility] [address] [id number] [place] [address] Apr, [facility] [address] [id number] [place] [address] Apr, [facility] [address] [id number] [place] [address] March, [facility] [address] [id number] [place] [address] March, [facility] [address] [id number] [place] [address] March, [facility] [address] [id number] [place] [address] March, [facility] [address] [id number] [place] [address] March, [facility] [address] [id number] [place] [address] Feb, [facility] [address] [id number] [place] [address] Feb, [facility] [address] [id number] [place] [address] Feb, [facility] [address] [id number] [place] [address] Feb, [facility] [address] [id number] [place] [address] Jan, [facility] [address] [id number] [place] [address] Jan, [facility] [address] [id number] [place] [address] Jan, [facility] [address] [id number] [place] [address] Dec, [facility] [address] [id number] [place] [address] 15 Dec, 2011 [facility] [address] [id number] [place] [address] 14 Dec, 2011 [facility] [address] [id number] [place] [address] 08 Dec, 2011 [facility] [address] [id number] [place] [address] 08 Dec, 2011 [facility] [address] [id number] [place] [address] Nov, [facility] [address] [id number] [place] [address] Nov, [facility] [address] [id number] [place] [address] Nov, [facility] [id number] [place] [address] Oct, [facility] [id number] [place] [address] Oct, [facility] [id number] [place] [address] Oct, [facility] [address] [id number] [place] [address] Sep, [facility] [address] [id number] [place] [address] Jul, [facility] [address] [id number] [place] [address] Apr, IMMUNIZATIONS No Known Immunizations SOCIAL HISTORY [...]
--- OUTSIDE RECORDS SUMMARY | 2020-01-05 17:40 | XMS REPORT ---
Author Author Porfirio ESCALANTE Organization [facility] Address [address] [place] [address] Care Team Providers Care Hogshead Hooper Name Role Phone KUN ESCALANTE Unavailable PROBLEMS Type Condition ICD9-CM Code BCB60-QN Code Onset Dates Condition S tatus SNOMED Code Problem Hypertriglyceridemia E78.1 Active 693129206 Problem Lumbago with sciatica, right side M54.41 Active 743335219 Problem Muscle pain M79.1 Active 07288996 Problem GERD (gastroesophageal reflux disease) K21.9 Active 122174499 Problem Neuropathy G62.9 Active 053769704 Problem Diabetes E11.9 Active 534097084 Problem Type 2 diabetes mellitus with complication E11.8 Active 98100942 Problem Bipolar I disorder, moderate , current or most recent episode depressed, with anxious distress F31.32 Active 682532 06 Problem Coronary artery disease invo lving [place] coronary artery of [place] heart without angina pectoris I25.10 Active 1641 511408610 Problem Restless leg syndrome G25.81 Active 35040650 Problem Stage II pressure ulcer of left buttock L89.322 Active 517497826 ALLERGIES No Information ENCOUNTERS Encounter Location Date Diagnosis [facility] [id number] [place] [address] 28 Dec, 2019 [facility] [id number] [place] [address] Dec, [facility] [id number] [place] [address] 24 Nov, 2019 Spinal stenosis of cervical region M48.0 2 [facility] [id number] [place] [address] 16 Nov, 2019 Lumbar back pain with radiculopathy affe cting right lower extremity M54.16 [facility] [address] [address] 15 Nov, 2019 [facility] [address] [address] 15 Nov, 2019 [facility] [address] [address] 13 Nov, 2019 Type 2 diabetes mellitus with complicati on E11.8 [facility] [address] [address] 09 Nov, 2019 [facility] [address] [address] Oct, Spinal stenosis of cervical region M48.0 2 [facility] [address] [address] Oct, [facility] [address] [address] Oct, Spinal stenosis of cervical region M48.0 2 [facility] [address] [address] Oct, [facility] [address] [address] Oct, Restless leg syndrome G25.81 and Bipolar I disorder, moderate, current or most recent episode depressed, with anxious distress F31.32 [facility] [address] [address] Oct, [facility] [address] [address] Oct, Coronary artery disease involving [place] coronary artery of [place] heart without angina pectoris I25.10 ; GERD (gastroesophageal reflux disease) K21.9 and Diabetes E11.9 [facility] [address] [address] Sep, [facility] [address] [address] Sep, [facility] [address] [address] Sep, [facility] [address] [address] Sep, Spinal stenosis of cervical region M48.0 2 [facility] [address] [address] Sep, [facility] [address] [address] Sep, Spinal stenosis of cervical region M48.0 2 ; Lumbago with sciatica, right side M54.41 ; Type 2 diabetes mellitus with complication E11.8 and Stage II pressure ulcer of left buttock L89.322 [facility] [address] [address] Aug, Bipolar I disorder, moderate, current or most recent episode depressed, with anxious distress F31.32 and Restless leg syndrome G25.81 [facility] [address] [address] Aug, [facility] [address] [address] Aug, [facility] [address] [address] Aug, [facility] [address] [address] Aug, [facility] [address] [address] Aug, [facility] [address] [address] Aug, Spinal stenosis in cervical region M48.0 2 [facility] [address] [address] Jul, Bipolar I disorder, moderate, current or most recent episode depressed, with anxious distress F31.32 [facility] [address] [address] Jul, Bipolar I disorder, moderate, current or most recent episode depressed, with anxious distress F31.32 [facility] [address] [address] 18 Jul, 2019 Type 2 diabetes mellitus with complicati on E11.8 ; Coronary artery disease involving [place] coronary artery of [place] heart without angina pectoris I25.10 ; Bipolar I disorder, moderate, current or most recent episode depressed, with anxious distress F31.32 ; Localized edema R60.0 ; Financial difficulties Z59.8 and Spinal stenosis in cervical region M48.02 [facility] [address] [address] Jul, [facility] [address] [address] Jul, [facility] [address] [address] Jul, [facility] [address] [address] Jul, [facility] [address] [address] Jun, Spinal stenosis of cervical region M48.0 2 ; Fall with injury, subsequent encounter W19.XXXD ; Spinal stenosis of lumbar region with neurogenic claudication M48.062 ; Contusion of left eyebrow, subsequent encounter S00.12XD and Type 2 diabetes mellitus with complication E11.8 [facility] [address] [address] Jun, Bipolar I disorder, moderate, current or most recent episode depressed, with anxious distress F31.32 [facility] [address] [address] Jun, [facility] [address] [address] Jun, [facility] [address] [address] Jun, [facility] [address] [address] Jun, [facility] [id number] [place] [address] May, [facility] [address] [address] May, Lumbar back pain with radiculopathy affe cting right lower extremity M54.16 ; Cervicalgia M54.2 ; History of streptococcal infection Z86.19 ; Hypertriglyceridemia E78.1 ; Bipolar 1 disorder F31.9 and Does not have health insurance Z59.8 [facility] [address] [address] May, Radiculopathy of arm M54.10 [facility] [address] [address] May, [facility] [address] [facility] [id number] [address] [place] [address] May, Fever R50.9 [facility] [address] [address] May, [facility] [address] [address] March, Type 2 diabetes mellitus with complicati on E11.8 [facility] [address] [address] March, Patellar tendinitis, right knee M76.51 [facility] [address] [address] March, Radiculopathy of arm M54.10 [facility] [address] [address] March, [facility] [address] [address] March, Type 2 diabetes mellitus with complicati on E11.8 ; Hoarseness of voice R49.0 and Acute pain of right knee M25.561 [facility] [address] [address] March, [facility] [address] [address] March, [facility] [address] [address] Feb, Bipolar 1 disorder F31.9 [facility] [address] [address] Feb, Bipolar 1 disorder F31.9 [facility] [address] [address] Jan, [facility] [address] [address] Dec, Type 2 diabetes mellitus with complicati on E11.8 [facility] [address] [address] Dec, Acute non-recurrent maxillary sinusitis J01.00 [facility] [address] [address] Nov, Bipolar 1 disorder F31.9 ; Rash R21 ; Ac celsa non-recurrent maxillary sinusitis J01.00 and Type 2 diabetes mellitus with complication E11.8 [facility] [address] [address] Oct, Hypertriglyceridemia E78.1 [facility] [address] [address] 10 Oct, 2018 Type 2 diabetes mellitus with complicati on E11.8 and Fatigue due to excessive exertion, initial encounter T73.3XXA [facility] [address] [address] Oct, [facility] [address] [address] Sep, [facility] [address] [address] Sep, Radiculopathy of arm M54.10 [facility] [address] [address] Sep, [facility] [address] [id number] [place] [address] May, [facility] [id number] [place] [address] May, Radiculopathy of arm M54.10 [facility] [id number] [place] [address] May, [facility] [id number] [place] [address] May, [facility] [id number] [place] [address] May, Radiculopathy of arm M54.10 [facility] [id number] [place] [address] Apr, Radiculopathy of arm M54.10 [facility] [id number] [place] [address] March, Radiculopathy of arm M54.10 [facility] [id number] [place] [address] March, Radiculopathy of arm M54.10 [facility] [id number] [place] [address] March, Radiculopathy of arm M54.10 [facility] [id number] [place] [address] March, Type 2 diabetes mellitus with complicati on E11.8 ; Radiculopathy of arm M54.10 and Muscle pain M79.1 [facility] [id number] [place] [address] Feb, Muscle pain M79.1 [facility] [id number] [place] [address] Jan, Type 2 diabetes mellitus with complicati on E11.8 [facility] [id number] [place] [address] Jan, [facility] [id number] [place] [address] Dec, Muscle pain M79.1 [facility] [address] [address] Nov, Muscle pain M79.1 and Acute pain of righ t shoulder M25.511 [facility] [address] [address] Nov, [facility] [address] [address] Nov, [facility] [address] [address] Nov, Type 2 diabetes mellitus with complicati on E11.8 [facility] [address] [address] Nov, Impingement syndrome of left shoulder M7 5.42 and Impingement syndrome of right shoulder M75.41 [facility] [address] [address] Oct, Type 2 diabetes mellitus with complicati on E11.8 ; Acute pain of right shoulder M25.511 ; Abscess of finger of right hand L02.511 and Umbilical hernia without obstruction and without gangrene K42.9 [facility] [id number] [place] [address] Oct, [facility] [address] [facility] [id number] [address] [address] Oct, Mucoid otitis media, unspeci fied chronicity, unspecified laterality H65.90 and Abscess of finger of right hand L02.511 [facility] [id number] [place] [address] Oct, [facility] [address] [address] Sep, [facility] [address] [address] Aug, [facility] [address] [address] 14 Jul, 2017 Sprain of right acromioclavicular ligame nt, initial encounter S43.51XA ; Impingement syndrome of left shoulder M75.42 and Impingement syndrome of right shoulder M75.41 [facility] [address] [address] 14 Jul, 2017 Type 2 diabetes mellitus with complicati on E11.8 [facility] [address] [address] Jun, [facility] [address] [address] Jun, Type 2 diabetes mellitus with complicati on E11.8 ; Lumbago with sciatica, right side M54.41 ; 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 and Pain in left shoulder M25.512 [facility] [address] [address] May, [facility] [address] [address] May, [facility] [address] [address] Apr, Lumbago with sciatica, right side M54.41 and Neck pain on left side M54.2 [facility] [address] [address] Apr, [facility] [address] [address] Apr, [facility] [address] [address] March, [facility] [address] [address] March, [facility] [address] [address] Feb, Acute pain of right shoulder M25.511 [facility] [address] [address] Feb, [facility] [address] [address] Feb, [facility] [address] [address] Feb, Type 2 diabetes mellitus with complicati on E11.8 ; Neuropathy G62.9 and Acute pain of right shoulder M25.511 [facility] [address] [address] Dec, Type 2 diabetes mellitus with complicati on E11.8 [facility] [address] [address] Nov, [facility] [address] [address] Oct, Arthrosis of right acromioclavicular echo nt M19.011 [facility] [address] [address] Oct, Type 2 diabetes mellitus with complicati on E11.8 [facility] [address] [address] Sep, Type 2 diabetes mellitus with complicati on E11.8 ; Acute pain of right shoulder M25.511 and Prostate cancer screening Z12.5 [facility] [address] [address] Sep, [facility] [address] [address] Jun, [facility] [address] [address] Jun, Muscle tension headache G44.209 and Brux ism F45.8 [facility] [address] [address] May, Type 2 diabetes mellitus with complicati on E11.8 ; Erectile dysfunction, unspecified erectile dysfunction type N52.9 and Neuropathy G62.9 [facility] [address] [address] 13 Feb, 2016 [facility] [address] [address] Feb, Type 2 diabetes mellitus with complicati on E11.8 [facility] [address] [address] Dec, [facility] [address] [address] Dec, Type 2 diabetes mellitus with complicati on E11.8 [facility] [address] [address] Nov, Nausea and vomiting, unspecified intacta bility, vomiting of unspecified type R11.2 [facility] [address] [address] Oct, Neuropathy G62.9 and Type 2 diabetes kermit litus with complication E11.8 [facility] [address] [address] Sep, [facility] [address] [address] Sep, [facility] [address] [address] Sep, Diabetes E11.9 [facility] [address] [address] Sep, [facility] [address] [address] Jul, [facility] [address] [address] Jun, [facility] [address] [address] Jun, Secondary diabetes mellitus with neurolo gical manifestations, not stated as uncontrolled, or unspecified 249.60 ; Other chronic pain 338.29 and Puncture wound 879.8 [facility] [id number] [place] [address] May, [facility] [id number] [place] [address] Apr, [facility] [id number] [place] [address] March, [facility] [place] [facility] [id number] [place] [address] Feb, [facility] [place] [facility] [id number] [place] [address] Feb, [facility] [place] [facility] [id number] [place] [address] Jan, [facility] [place] [facility] [id number] [place] [address] Jan, [facility] [id number] [place] [address] Jan, [facility] [place] [facility] [id number] [place] [address] Jan, [facility] [place] [facility] [id number] [place] [address] Jan, [facility] [id number] [place] [address] Jan, [facility] [place] [facility] [id number] [place] [address] Jan, [facility] [place] [facility] [id number] [place] [address] Jan, [facility] [place] [facility] [id number] [place] [address] Dec, [facility] [place] [facility] [id number] [place] [address] Dec, [facility] [place] [facility] [id number] [place] [address] Nov, [facility] [place] [facility] [address] [id number] [place] [address] Nov, [facility] [place] [facility] [address] [id number] [place] [address] Nov, [facility] [place] [facility] [address] [id number] [place] [address] Nov, [facility] [place] [facility] [address] [id number] [place] [address] Nov, [facility] [place] [facility] [address] [id number] [place] [address] Nov, [facility] [place] [facility] [address] [id number] [place] [address] Oct, [facility] [place] [facility] [address] [id number] [place] [address] Oct, [facility] [place] [facility] [address] [id number] [place] [address] Oct, [facility] [place] [facility] [address] [id number] [place] [address] Oct, [facility] [place] [facility] [address] [id number] [place] [address] Oct, [facility] [place] [facility] [address] [id number] [place] [address] Oct, [facility] [place] [facility] [address] [id number] [place] [address] Oct, [facility] [place] [facility] [address] [id number] [place] [address] Oct, [facility] [place] [facility] [address] [id number] [place] [address] Oct, [facility] [place] [facility] [address] [id number] [place] [address] Sep, [facility] [place] [facility] [address] [id number] [place] [address] Sep, [facility] [place] [facility] [address] [id number] [place] [address] Sep, [facility] [place] [facility] [address] [id number] [place] [address] Sep, [facility] [place] [facility] [address] [id number] [place] [address] Sep, [facility] [place] [facility] [address] [id number] [place] [address] Sep, [facility] [place] [facility] [address] [id number] [place] [address] Sep, [facility] [place] [facility] [address] [facility] [id number] [place] [address] Aug, [facility] [place] [facility] [address] [id number] [place] [address] Aug, [facility] [place] [facility] [address] [id number] [place] [address] 16 Aug, 2014 [facility] [place] [facility] [address] [id number] [place] [address] 16 Aug, 2014 [facility] [place] [facility] [address] [id number] [place] [address] 14 Aug, 2014 [facility] [place] [facility] [address] [id number] [place] [address] 14 Aug, 2014 [facility] [place] [facility] [address] [id number] [place] [address] 26 Jul, 2013 [facility] [place] [facility] [address] [id number] [place] [address] 25 Jul, 2013 [facility] [place] [facility] [address] [id number] [place] [address] 25 Jul, 2013 [facility] [place] [facility] [address] [id number] [place] [address] 25 Jul, 2013 [facility] [place] [facility] [address] [id number] [place] [address] 25 Jul, 2013 [facility] [place] [facility] [address] [id number] [place] [address] 19 Jul, 2013 [facility] [place] [facility] [address] [id number] [place] [address] Jul, 2013 [facility] [place] [facility] [address] [id number] [place] [address] Jul, [facility] [place] [facility] [address] [facility] [id number] [facility] [address] Jul, [facility] [place] [facility] [address] [facility] [id number] [facility] [address] Jul, [facility] [place] [facility] [address] [facility] [id number] [facility] [address] Jun, [facility] [place] [facility] [address] [facility] [id number] [place] [address] Jun, [facility] [place] [facility] [address] [facility] [id number] [place] [address] Jun, [facility] [place] [facility] [address] [id number] [place] [address] Jun, [facility] [place] [facility] [address] [id number] [place] [address] Jun, [facility] [place] [facility] [address] [facility] [id number] [facility] [address] Jun, [facility] [place] [facility] [address] [id number] [place] [address] Jun, [facility] [place] [facility] [address] [id number] [place] [address] Jun, [facility] [place] [facility] [address] [id number] [facility] [address] May, [facility] [place] [facility] [address] [id number] [place] [address] May, [facility] [place] [facility] [address] [id number] [place] [address] May, [facility] [place] [facility] [address] [facility] [id number] [place] [address] May, [facility] [place] [facility] [address] [id number] [place] [address] May, [facility] [place] [facility] [address] [id number] [place] [address] May, [facility] [place] [facility] [address] [facility] [id number] [place] [address] May, [facility] [place] [facility] [address] [facility] [id number] [place] [address] May, [facility] [place] [facility] [address] [id number] [place] [address] May, [facility] [place] [facility] [address] [facility] [id number] [place] [address] May, [facility] [place] [facility] [address] [facility] [id number] [place] [address] May, [facility] [place] [facility] [address] [id number] [place] [address] May, [facility] [place] [facility] [address] [id number] [place] [address] May, [facility] [place] [facility] [address] [id number] [place] [address] Apr, [facility] [place] [facility] [address] [facility] [id number] [place] [address] Apr, [facility] [place] [facility] [address] [id number] [place] [address] Apr, [facility] [place] [facility] [address] [id number] [place] [address] Apr, [facility] [place] [facility] [address] [id number] [place] [address] Apr, [facility] [place] [facility] [address] [facility] [id number] [place] [address] Apr, [facility] [place] [facility] [address] [id number] [place] [address] March, [facility] [place] [facility] [address] [id number] [place] [address] March, [facility] [place] [facility] [address] [id number] [place] [address] March, [facility] [place] [facility] [address] [facility] [id number] [place] [address] 30 Feb, 2014 [facility] [place] [facility] [address] [facility] [id number] [facility] [address] 24 Feb, 2014 [facility] [place] [facility] [address] [id number] [place] [address] Feb, [facility] [place] [facility] [address] [id number] [place] [address] Feb, [facility] [place] [facility] [address] [facility] [id number] [place] [address] Feb, [facility] [place] [facility] [address] [id number] [place] [address] Feb, [facility] [place] [facility] [address] [id number] [place] [address] Feb, [facility] [place] [facility] [address] [id number] [place] [address] Feb, [facility] [facility] [address] [id number] [place] [address] Feb, [facility] [address] [id number] [place] [address] Feb, [facility] [address] [facility] [id number] [place] [address] Feb, [facility] [address] [facility] [id number] [place] [address] Jan, [facility] [address] [facility] [id number] [place] [address] Jan, [facility] [address] [id number] [place] [address] Jan, [facility] [address] [id number] [place] [address] Jan, [facility] [address] [id number] [place] [address] Jan, [facility] [address] [id number] [place] [address] Jan, [facility] [address] [facility] [id number] [place] [address] Dec, [facility] [address] [id number] [place] [address] Dec, [facility] [address] [id number] [place] [address] Dec, [facility] [address] [facility] [id number] [place] [address] Dec, [facility] [address] [facility] [id number] [place] [address] Nov, [facility] [address] [id number] [place] [address] Nov, [facility] [address] [id number] [place] [address] Nov, [facility] [address] [id number] [place] [address] Nov, [facility] [address] [id number] [place] [address] Nov, [facility] [address] [id number] [place] [address] Nov, [facility] [address] [id number] [place] [address] Oct, [facility] [address] [facility] [id number] [place] [address] Oct, [facility] [address] [facility] [id number] [place] [address] 05 Oct, 2013 [facility] [address] [id number] [place] [address] 05 Oct, 2013 [facility] [address] [id number] [place] [address] Oct, [facility] [address] [facility] [id number] [place] [address] Oct, [facility] [address] [id number] [place] [address] Sep, [facility] [address] [id number] [place] [address] Sep, [facility] [address] [id number] [place] [address] Sep, [facility] [address] [id number] [place] [address] Sep, [facility] [address] [id number] [place] [address] Sep, [facility] [address] [id number] [place] [address] Sep, [facility] [address] [id number] [place] [address] Aug, [facility] [address] [id number] [place] [address] Aug, [facility] [address] [id number] [place] [address] Aug, [facility] [address] [id number] [place] [address] Aug, [facility] [address] [id number] [place] [address] Jul, [facility] [address] [id number] [place] [address] Jul, [facility] [address] [id number] [place] [address] Jun, [facility] [address] [facility] [id number] [place] [address] Jun, [facility] [address] [facility] [id number] [place] [address] May, [facility] [address] [id number] [place] [address] May, [facility] [address] [id number] [place] [address] May, [facility] [address] [id number] [place] [address] May, [facility] [address] [id number] [place] [address] May, [facility] [address] [id number] [place] [address] May, [facility] [address] [id number] [place] [address] Apr, [facility] [address] [id number] [place] [address] Apr, [facility] [address] [facility] [id number] [place] [address] Apr, [facility] [address] [facility] [id number] [place] [address] Apr, [facility] [address] [facility] [id number] [place] [address] March, [facility] [address] [facility] [id number] [place] [address] March, [facility] [address] [facility] [id number] [place] [address] March, [facility] [address] [facility] [id number] [place] [address] Feb, [facility] [address] [facility] [id number] [place] [address] Feb, [facility] [address] [facility] [id number] [place] [address] Jan, [facility] [address] [facility] [id number] [place] [address] Dec, [facility] [address] [facility] [id number] [place] [address] Dec, [facility] [address] [facility] [id number] [place] [address] Dec, [facility] [address] [facility] [id number] [place] [address] Dec, [facility] [address] [facility] [id number] [place] [address] Dec, [facility] [address] [facility] [id number] [place] [address] Nov, [facility] [address] [facility] [id number] [place] [address] Nov, [facility] [address] [facility] [id number] [place] [address] Nov, [facility] [address] [facility] [id number] [place] [address] Nov, [facility] [address] [facility] [id number] [place] [address] Nov, [facility] [address] [facility] [id number] [place] [address] Oct, [facility] [address] [facility] [id number] [place] [address] Oct, [facility] [address] [facility] [id number] [place] [address] Oct, [facility] [address] [facility] [id number] [place] [address] Oct, [facility] [address] [facility] [id number] [place] [address] Sep, [facility] [address] [facility] [id number] [place] [address] Sep, [facility] [address] [facility] [id number] [place] [address] Sep, [facility] [id number] [place] [address] Sep, [facility] [address] [facility] [id number] [place] [address] Sep, [facility] [address] [facility] [id number] [place] [address] Sep, [facility] [address] [facility] [id number] [place] [address] Sep, [facility] [address] [facility] [id number] [place] [address] Sep, [facility] [address] [facility] [id number] [place] [address] Sep, [facility] [address] [facility] [id number] [place] [address] Sep, [facility] [address] [facility] [id number] [place] [address] Aug, [facility] [address] [facility] [id number] [place] [address] Aug, [facility] [address] [facility] [id number] [place] [address] Aug, [facility] [id number] [place] [address] Aug, [facility] [address] [facility] [id number] [place] [address] Aug, [facility] [address] [facility] [id number] [place] [address] Aug, [facility] [address] [facility] [id number] [place] [address] Jul, [facility] [address] [facility] [id number] [place] [address] Jun, [facility] [address] [facility] [id number] [place] [address] Apr, [facility] [address] [facility] [id number] [place] [address] Apr, [facility] [address] [facility] [id number] [place] [address] Apr, [facility] [address] [facility] [id number] [place] [address] Apr, [facility] [address] [facility] [id number] [place] [address] March, [facility] [address] [facility] [id number] [place] [address] March, [facility] [address] [facility] [id number] [place] [address] March, [facility] [address] [id number] [place] [address] March, [facility] [address] [facility] [id number] [place] [address] March, [facility] [address] [facility] [id number] [place] [address] Feb, [facility] [address] [facility] [id number] [place] [address] Feb, [facility] [address] [facility] [id number] [place] [address] Feb, [facility] [address] [facility] [id number] [place] [address] Feb, [facility] [address] [facility] [id number] [place] [address] Jan, [facility] [address] [facility] [id number] [place] [address] Jan, [facility] [address] [facility] [id number] [place] [address] Jan, [facility] [address] [facility] [id number] [place] [address] Dec, [facility] [address] [id number] [place] [address] 15 Dec, 2011 [facility] [address] [id number] [place] [address] 14 Dec, 2011 [facility] [address] [facility] [id number] [place] [address] 08 Dec, 2011 [facility] [address] [facility] [id number] [place] [address] 08 Dec, 2011 [facility] [address] [id number] [place] [address] Nov, [facility] [address] [id number] [place] [address] Nov, [facility] [address] [facility] [id number] [place] [address] Nov, [facility] [id number] [place] [address] Oct, [facility] [id number] [place] [address] Oct, [facility] [id number] [place] [address] Oct, [facility] [address] [facility] [id number] [place] [address] Sep, [facility] [address] [facility] [id number] [place] [address] Jul, [facility] [address] [id number] [place] [address] Apr, IMMUNIZATIONS No Known Immunizations SOCIAL HISTORY [...]
--- OUTSIDE RECORDS SUMMARY | 2020-01-05 17:40 | XMS REPORT ---
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 Name Role Phone ANALISA JAMESON Unavailable PROBLEMS Type Condition ICD9-CM Code HOK05-IG Code Onset Dates Condition S tatus SNOMED Code Problem Hypertriglyceridemia E78.1 Active 377715131 Problem Lumbago with sciatica, right side M54.41 Active 672230692 Problem Muscle pain M79.1 Active 26418046 Problem GERD (gastroesophageal reflux disease) K21.9 Active 875248833 Problem Neuropathy G62.9 Active 472293414 Problem Diabetes E11.9 Active 981969601 Problem Type 2 diabetes mellitus with complication E11.8 Active 85096662 Problem Bipolar I disorder, moderate , current or most recent episode depressed, with anxious distress F31.32 Active 787859 06 Problem Coronary artery disease invo lving [place] coronary artery of [place] heart without angina pectoris I25.10 Active 1641 582395566 Problem Restless leg syndrome G25.81 Active 14463965 Problem Stage II pressure ulcer of left buttock L89.322 Active 284280487 ALLERGIES No Information ENCOUNTERS Encounter Location Date Diagnosis [place] [address] [address] 28 Dec, 2019 [place] [address] [address] Nov, Lumbar back pain with radiculopathy affe cting right lower extremity M54.16 [place] [address] [address] Nov, [facility] [address] [address] Nov, [place] [address] [address] Nov, Type 2 diabetes mellitus with complicati on E11.8 [facility] [address] [address] Nov, [facility] [address] [address] Oct, Spinal stenosis of cervical region M48.0 2 [facility] [address] [address] Oct, [facility] [address] [address] Oct, Spinal stenosis of cervical region M48.0 2 [facility] [address] [address] Oct, [facility] [address] [address] Oct, Restless leg syndrome G25.81 and Bipolar I disorder, moderate, current or most recent episode depressed, with anxious distress F31.32 [facility] [address] [address] Oct, [facility] [address] [address] Oct, Coronary artery disease involving [place] coronary artery of [place] heart without angina pectoris I25.10 ; GERD (gastroesophageal reflux disease) K21.9 and Diabetes E11.9 [facility] [address] [address] Sep, [facility] [address] [address] Sep, [facility] [address] [address] Sep, [facility] [address] [address] Sep, Spinal stenosis of cervical region M48.0 2 [facility] [address] [address] Sep, [place] [address] [address] Sep, Spinal stenosis of cervical region M48.0 2 ; Lumbago with sciatica, right side M54.41 ; Type 2 diabetes mellitus with complication E11.8 and Stage II pressure ulcer of left buttock L89.322 [facility] [address] [address] Aug, Bipolar I disorder, moderate, current or most recent episode depressed, with anxious distress F31.32 and Restless leg syndrome G25.81 [facility] [address] [address] Aug, [facility] [address] [address] Aug, [facility] [address] [address] Aug, [facility] [address] [address] Aug, [facility] [address] [address] Aug, [facility] [address] [address] Aug, Spinal stenosis in cervical region M48.0 2 [facility] [address] [address] Jul, Bipolar I disorder, moderate, current or most recent episode depressed, with anxious distress F31.32 [facility] [address] [address] Jul, Bipolar I disorder, moderate, current or most recent episode depressed, with anxious distress F31.32 [facility] [address] [address] Jul, Type 2 diabetes mellitus with complicati on E11.8 ; Coronary artery disease involving [place] coronary artery of [place] heart without angina pectoris I25.10 ; Bipolar I disorder, moderate, current or most recent episode depressed, with anxious distress F31.32 ; Localized edema R60.0 ; Financial difficulties Z59.8 and Spinal stenosis in cervical region M48.02 [place] [address] [address] 18 Jul, 2019 [facility] [address] [address] 13 Jul, 2019 [place] [address] [address] 10 Jul, 2019 [facility] [address] [address] 09 Jul, 2019 [place] [address] [address] Jun, Spinal stenosis of cervical region M48.0 2 ; Fall with injury, subsequent encounter W19.XXXD ; Spinal stenosis of lumbar region with neurogenic claudication M48.062 ; Contusion of left eyebrow, subsequent encounter S00.12XD and Type 2 diabetes mellitus with complication E11.8 [place] [address] [address] Jun, Bipolar I disorder, moderate, current or most recent episode depressed, with anxious distress F31.32 [place] [address] [address] Jun, [place] [address] [address] Jun, [place] [address] [address] Jun, [facility] [address] [address] Jun, [facility] [address] [address] May, [place] [address] [address] May, Lumbar back pain with radiculopathy affe cting right lower extremity M54.16 ; Cervicalgia M54.2 ; History of streptococcal infection Z86.19 ; Hypertriglyceridemia E78.1 ; Bipolar 1 disorder F31.9 and Does not have health insurance Z59.8 [facility] [address] [place] [id number] [place] [address] 18 May, 2019 Radiculopathy of arm M54.10 [facility] [address] [place] [id number] [place] [address] 15 May, 2019 [facility] [address] [facility] [id number] [place] [address] May, Fever R50.9 [facility] [address] [address] May, [facility] [address] [address] March, Type 2 diabetes mellitus with complicati on E11.8 [place] [address] [address] March, Patellar tendinitis, right knee M76.51 [facility] [address] [place] [id number] [place] [address] March, Radiculopathy of arm M54.10 [facility] [address] [place] [id number] [place] [address] March, [facility] [address] [address] March, Type 2 diabetes mellitus with complicati on E11.8 ; Hoarseness of voice R49.0 and Acute pain of right knee M25.561 [facility] [address] [place] [id number] [place] [address] March, [facility] [address] [address] March, [facility] [address] [address] Feb, Bipolar 1 disorder F31.9 [facility] [address] [address] Feb, Bipolar 1 disorder F31.9 [place] [address] [address] Jan, [place] [address] [address] Dec, Type 2 diabetes mellitus with complicati on E11.8 [place] [address] [address] 06 Dec, 2018 Acute non-recurrent maxillary sinusitis J01.00 [place] [address] [address] Nov, Bipolar 1 disorder F31.9 ; Rash R21 ; Ac [place] non-recurrent maxillary sinusitis J01.00 and Type 2 diabetes mellitus with complication E11.8 [place] [address] [address] 14 Oct, 2018 Hypertriglyceridemia E78.1 [place] [address] [address] 10 Oct, 2018 Type 2 diabetes mellitus with complicati on E11.8 and Fatigue due to excessive exertion, initial encounter T73.3XXA [place] [address] [address] 07 Oct, 2018 [place] [address] [address] Sep, [place] [address] [address] Sep, Radiculopathy of arm M54.10 [place] [address] [address] Sep, [place] [address] [address] May, [place] [address] [address] May, Radiculopathy of arm M54.10 [facility] [address] [place] [id number] [place] [address] May, [facility] [address] [address] May, [facility] [address] [place] [id number] [place] [address] May, Radiculopathy of arm M54.10 [facility] [address] [place] [id number] [place] [address] Apr, Radiculopathy of arm M54.10 [facility] [address] [place] [id number] [place] [address] March, Radiculopathy of arm M54.10 [facility] [address] [place] [id number] [place] [address] March, Radiculopathy of arm M54.10 [facility] [address] [place] [id number] [place] [address] March, Radiculopathy of arm M54.10 [facility] [address] [place] [id number] [place] [address] March, Type 2 diabetes mellitus with complicati on E11.8 ; Radiculopathy of arm M54.10 and Muscle pain M79.1 [facility] [address] [place] [id number] [place] [address] Feb, Muscle pain M79.1 [facility] [address] [place] [id number] [place] [address] Jan, Type 2 diabetes mellitus with complicati on E11.8 [facility] [address] [place] [id number] [place] [address] Jan, [facility] [address] [address] Dec, Muscle pain M79.1 [facility] [address] [address] Nov, Muscle pain M79.1 and Acute pain of righ t shoulder M25.511 [place] [address] [address] Nov, [place] [address] [address] Nov, [place] [address] [address] Nov, Type 2 diabetes mellitus with complicati on E11.8 [place] [address] [address] Nov, Impingement syndrome of left shoulder M7 5.42 and Impingement syndrome of right shoulder M75.41 [place] [address] [address] Oct, Type 2 diabetes mellitus with complicati on E11.8 ; Acute pain of right shoulder M25.511 ; Abscess of finger of right hand L02.511 and Umbilical hernia without obstruction and without gangrene K42.9 [place] [address] [address] Oct, [facility] [address] [facility] [id number] [address] [place] [address] Oct, Mucoid otitis media, unspeci fied chronicity, unspecified laterality H65.90 and Abscess of finger of right hand L02.511 [place] [address] [address] Oct, [facility] [address] [address] Sep, [place] [address] [address] Aug, [place] [address] [address] 14 Jul, 2017 Sprain of right acromioclavicular ligame nt, initial encounter S43.51XA ; Impingement syndrome of left shoulder M75.42 and Impingement syndrome of right shoulder M75.41 [facility] [address] [address] 14 Jul, 2017 Type 2 diabetes mellitus with complicati on E11.8 [facility] [address] [address] Jun, [facility] [address] [address] Jun, Type 2 diabetes mellitus with complicati on E11.8 ; Lumbago with sciatica, right side M54.41 ; 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 and Pain in left shoulder M25.512 [facility] [address] [address] May, [facility] [address] [address] May, [facility] [address] [address] Apr, Lumbago with sciatica, right side M54.41 and Neck pain on left side M54.2 [facility] [address] [address] Apr, [facility] [address] [address] Apr, [facility] [address] [address] March, [facility] [address] [address] March, [facility] [address] [address] Feb, Acute pain of right shoulder M25.511 [facility] [address] [address] Feb, [facility] [address] [address] Feb, [facility] [address] [address] Feb, Type 2 diabetes mellitus with complicati on E11.8 ; Neuropathy G62.9 and Acute pain of right shoulder M25.511 [place] [address] [address] Dec, Type 2 diabetes mellitus with complicati on E11.8 [place] [address] [address] Nov, [place] [address] [address] Oct, Arthrosis of right acromioclavicular echo nt M19.011 [place] [address] [address] Oct, Type 2 diabetes mellitus with complicati on E11.8 [place] [address] [address] Sep, Type 2 diabetes mellitus with complicati on E11.8 ; Acute pain of right shoulder M25.511 and Prostate cancer screening Z12.5 [place] [address] [address] Sep, [place] [address] [address] Jun, [place] [address] [address] Jun, Muscle tension headache G44.209 and Brux ism F45.8 [place] [address] [address] May, Type 2 diabetes mellitus with complicati on E11.8 ; Erectile dysfunction, unspecified erectile dysfunction type N52.9 and Neuropathy G62.9 [place] [address] [address] Feb, [place] [address] [address] Feb, Type 2 diabetes mellitus with complicati on E11.8 [facility] [address] [address] Dec, [facility] [address] [address] Dec, Type 2 diabetes mellitus with complicati on E11.8 [facility] [address] [address] Nov, Nausea and vomiting, unspecified intacta bility, vomiting of unspecified type R11.2 [facility] [address] [address] Oct, Neuropathy G62.9 and Type 2 diabetes kermit litus with complication E11.8 [facility] [address] [address] Sep, [facility] [address] [address] Sep, [facility] [address] [address] Sep, Diabetes E11.9 [facility] [address] [address] Sep, [facility] [address] [address] Jul, [facility] [address] [address] Jun, [facility] [address] [address] Jun, Secondary diabetes mellitus with neurolo gical manifestations, not stated as uncontrolled, or unspecified 249.60 ; Other chronic pain 338.29 and Puncture wound 879.8 [facility] [address] [address] May, [facility] [address] [address] Apr, [facility] [address] [id number] [place] [address] March, [facility] [address] [facility] [id number] [place] [address] Feb, [facility] [address] [id number] [place] [address] Feb, [facility] [address] [id number] [place] [address] Jan, [facility] [address] [id number] [place] [address] Jan, [facility] [address] [id number] [place] [address] Jan, [facility] [address] [id number] [place] [address] Jan, [facility] [address] [id number] [place] [address] Jan, [facility] [address] [id number] [place] [address] Jan, [facility] [address] [id number] [place] [address] Jan, [facility] [address] [id number] [place] [address] Jan, [facility] [address] [id number] [place] [address] Dec, [facility] [address] [id number] [place] [address] Dec, [facility] [address] [id number] [place] [address] Nov, [facility] [address] [id number] [place] [address] Nov, [facility] [address] [id number] [place] [address] Nov, [facility] [address] [id number] [place] [address] Nov, [facility] [address] [id number] [place] [address] Nov, [facility] [address] [id number] [place] [address] Nov, [facility] [address] [id number] [place] [address] Oct, [facility] [address] [id number] [place] [address] Oct, [facility] [address] [id number] [place] [address] Oct, [facility] [address] [id number] [place] [address] Oct, [facility] [address] [id number] [place] [address] Oct, [facility] [address] [id number] [place] [address] Oct, [facility] [address] [id number] [place] [address] Oct, [facility] [address] [id number] [place] [address] Oct, [facility] [address] [id number] [place] [address] Oct, [facility] [address] [id number] [place] [address] Sep, [facility] [address] [id number] [place] [address] Sep, [facility] [address] [id number] [place] [address] Sep, [facility] [address] [id number] [place] [address] Sep, [facility] [address] [id number] [place] [address] Sep, [facility] [address] [id number] [place] [address] Sep, [facility] [address] [facility] [id number] [place] [address] 05 Sep, 2014 [facility] [address] [id number] [place] [address] Aug, [facility] [address] [id number] [place] [address] Aug, [facility] [address] [id number] [place] [address] 16 Aug, 2014 [facility] [address] [id number] [place] [address] 16 Aug, 2014 [facility] [address] [id number] [place] [address] 14 Aug, 2014 [facility] [address] [id number] [place] [address] 14 Aug, 2014 [facility] [address] [id number] [place] [address] 26 Sep, 2013 [facility] [address] [id number] [place] [address] 25 Sep, 2013 [facility] [address] [id number] [place] [address] 25 Sep, 2013 [facility] [address] [id number] [place] [address] 25 Sep, 2013 [facility] [address] [id number] [place] [address] 25 Sep, 2013 [facility] [address] [id number] [place] [address] 19 Sep, 2013 [facility] [address] [id number] [place] [address] 16 Sep, 2013 [facility] [address] [id number] [place] [address] 16 Sep, 2013 [facility] [address] [id number] [place] [address] 08 Sep, 2013 [facility] [address] [id number] [facility] [address] Jul, [facility] [address] [id number] [facility] [place] [address] Jun, [facility] [address] [facility] [id number] [place] [address] Jun, [facility] [address] [id number] [place] [address] Jun, [facility] [address] [facility] [id number] [place] [address] Jun, [facility] [address] [id number] [place] [address] Jun, [facility] [address] [id number] [place] [address] Jun, [facility] [address] [id number] [place] [address] Jun, [facility] [address] [id number] [place] [address] Jun, [facility] [address] [id number] [place] [address] May, [facility] [address] [id number] [place] [address] May, [facility] [address] [id number] [place] [address] May, [facility] [address] [id number] [place] [address] May, [facility] [address] [id number] [place] [address] May, [facility] [address] [id number] [place] [address] May, [facility] [address] [id number] [place] [address] May, [facility] [address] [id number] [place] [address] May, [facility] [address] [facility] [id number] [facility] [place] [address] May, [facility] [address] [facility] [id number] [facility] [place] [address] May, [facility] [address] [facility] [id number] [facility] [place] [address] May, [facility] [address] [id number] [facility] [place] [address] May, [facility] [address] [facility] [id number] [facility] [place] [address] May, [facility] [address] [id number] [place] [address] Apr, [facility] [address] [id number] [place] [address] Apr, [facility] [address] [id number] [place] [address] Apr, [facility] [address] [id number] [place] [address] Apr, [facility] [address] [id number] [place] [address] Apr, [facility] [address] [id number] [place] [address] Apr, [facility] [address] [id number] [place] [address] March, [facility] [address] [id number] [facility] [address] March, [facility] [address] [id number] [place] [address] March, [facility] [address] [id number] [place] [address] Feb, [facility] [address] [id number] [place] [address] Feb, [facility] [address] [id number] [place] [address] 24 Feb, 2014 [facility] [address] [facility] [id number] [facility] [place] [address] Feb, [facility] [address] [facility] [id number] [place] [address] Feb, [facility] [address] [id number] [facility] [place] [address] Feb, [facility] [address] [id number] [place] [address] Feb, [facility] [address] [facility] [id number] [facility] [place] [address] Feb, [facility] [address] [id number] [place] [address] Feb, [facility] [address] [id number] [place] [address] Feb, [facility] [address] [id number] [place] [address] Feb, [facility] [address] [id number] [place] [address] Jan, [facility] [address] [id number] [place] [address] Jan, [facility] [address] [id number] [place] [address] Jan, [facility] [address] [id number] [place] [address] Jan, [facility] [address] [facility] [id number] [place] [address] Jan, [facility] [address] [id number] [place] [address] Jan, [facility] [address] [id number] [place] [address] Dec, [facility] [address] [id number] [place] [address] Dec, [facility] [address] [id number] [place] [address] Dec, [facility] [address] [id number] [place] [address] Dec, [facility] [address] [id number] [place] [address] Nov, [facility] [address] [id number] [place] [address] Nov, [facility] [address] [id number] [place] [address] Nov, [facility] [address] [id number] [place] [address] Nov, [facility] [address] [id number] [place] [address] Nov, [facility] [address] [id number] [place] [address] Nov, [facility] [address] [id number] [place] [address] Oct, [facility] [address] [id number] [place] [address] Oct, [facility] [address] [id number] [place] [address] Oct, [facility] [address] [id number] [place] [address] Oct, [facility] [address] [id number] [place] [address] Oct, [facility] [address] [id number] [place] [address] Oct, [facility] [address] [id number] [place] [address] Sep, [facility] [address] [id number] [place] [address] Sep, [facility] [address] [id number] [place] [address] 07 Sep, 2013 [facility] [address] [id number] [place] [address] Sep, [facility] [address] [id number] [place] [address] Sep, [facility] [address] [id number] [place] [address] Sep, 2012 [facility] [address] [id number] [place] [address] Aug, [facility] [address] [id number] [place] [address] Aug, [facility] [address] [id number] [place] [address] Aug, [facility] [address] [id number] [place] [address] Aug, [facility] [address] [id number] [place] [address] Jul, [facility] [address] [id number] [place] [address] Jul, [facility] [address] [id number] [place] [address] Jun, [facility] [address] [id number] [place] [address] Jun, [facility] [address] [id number] [place] [address] May, [facility] [address] [id number] [place] [address] May, [facility] [address] [id number] [place] [address] May, [facility] [address] [id number] [place] [address] May, [facility] [address] [id number] [place] [address] May, [facility] [address] [id number] [place] [address] 08 May, 2013 [facility] [address] [id number] [place] [address] Apr, [facility] [address] [id number] [place] [address] Apr, [facility] [address] [id number] [place] [address] Apr, [facility] [address] [id number] [place] [address] Apr, [facility] [address] [id number] [place] [address] March, [facility] [address] [id number] [place] [address] March, [facility] [address] [id number] [place] [address] March, [facility] [address] [id number] [place] [address] Feb, [facility] [address] [id number] [place] [address] Feb, [facility] [address] [id number] [place] [address] Jan, [facility] [address] [id number] [place] [address] Dec, [facility] [address] [id number] [place] [address] Dec, [facility] [address] [id number] [place] [address] Dec, [facility] [address] [id number] [place] [address] Dec, [facility] [address] [id number] [place] [address] Dec, [facility] [address] [id number] [place] [address] Nov, [facility] [address] [id number] [place] [address] Nov, [facility] [address] [id number] [place] [address] Nov, [facility] [address] [id number] [place] [address] Nov, [facility] [address] [id number] [place] [address] Nov, [facility] [address] [id number] [place] [address] Oct, [facility] [address] [id number] [place] [address] Oct, [facility] [address] [id number] [place] [address] Oct, [facility] [id number] [place] [address] Oct, [facility] [address] [id number] [place] [address] Sep, [facility] [address] [id number] [place] [address] Sep, [facility] [address] [id number] [place] [address] Sep, [facility] [address] [id number] [place] [address] Sep, [facility] [address] [id number] [place] [address] Sep, [facility] [address] [id number] [place] [address] Sep, [facility] [address] [id number] [place] [address] Sep, [facility] [address] [id number] [place] [address] Sep, [facility] [address] [id number] [place] [address] Sep, [facility] [address] [id number] [place] [address] Sep, [facility] [address] [id number] [place] [address] Aug, [facility] [address] [id number] [place] [address] Aug, [facility] [address] [id number] [place] [address] Aug, [facility] [address] [id number] [place] [address] Aug, [facility] [address] [id number] [place] [address] Aug, [facility] [address] [id number] [place] [address] Aug, [facility] [address] [id number] [place] [address] Jul, [facility] [address] [id number] [place] [address] Jun, [facility] [address] [id number] [place] [address] Apr, [facility] [address] [id number] [place] [address] Apr, [facility] [address] [id number] [place] [address] Apr, [facility] [address] [id number] [place] [address] Apr, [facility] [id number] [place] [address] March, [facility] [address] [id number] [place] [address] March, [facility] [address] [id number] [place] [address] March, [facility] [address] [id number] [place] [address] March, [facility] [address] [id number] [place] [address] March, [facility] [address] [id number] [place] [address] Feb, [facility] [address] [id number] [place] [address] Feb, [facility] [address] [id number] [place] [address] Feb, [facility] [address] [id number] [place] [address] Feb, [facility] [address] [id number] [place] [address] Jan, [facility] [address] [id number] [place] [address] Jan, [facility] [address] [id number] [place] [address] Jan, [facility] [address] [id number] [place] [address] Dec, [facility] [address] [id number] [place] [address] 15 Dec, 2011 [facility] [address] [id number] [place] [address] Dec, [facility] [address] [id number] [place] [address] Dec, [facility] [address] [id number] [place] [address] Dec, [facility] [address] [id number] [place] [address] Nov, [facility] [address] [id number] [place] [address] Nov, [facility] [address] [id number] [place] [address] Nov, [facility] [address] [id number] [place] [address] Oct, [facility] [address] [id number] [place] [address] Oct, [facility] [address] [id number] [place] [address] Oct, [facility] [address] [id number] [place] [address] Sep, [facility] [address] [id number] [place] [address] Jul, [facility] [address] [id number] [place] [address] Apr, IMMUNIZATIONS No Known Immunizations SOCIAL HISTORY [...]
--- OUTSIDE RECORDS SUMMARY | 2020-01-05 17:41 | XMS REPORT ---
Author Author Porfirio ESCALANTE Organization [facility], [place] Address [address] [place] [address] Care Team Providers Care Criminal Psychologist Name Role Phone KUN ESCALANTE Unavailable PROBLEMS Type Condition ICD9-CM Code IKM10-DY Code Onset Dates Condition S tatus SNOMED Code Problem Hypertriglyceridemia E78.1 Active 969223959 Problem Lumbago with sciatica, right side M54.41 Active 505419883 Problem Muscle pain M79.1 Active 96355208 Problem Diabetes E11.9 Active 332424644 Problem Neuropathy G62.9 Active 129847159 Problem GERD (gastroesophageal reflux disease) K21.9 Active 836382829 Problem Type 2 diabetes mellitus with complication E11.8 Active 09053483 Problem Bipolar I disorder, moderate , current or most recent episode depressed, with anxious distress F31.32 Active 551090 06 Problem Coronary artery disease invo lving [place] coronary artery of [place] heart without angina pectoris I25.10 Active 1641 078908487 Problem Restless leg syndrome G25.81 Active 39579262 Problem Stage II pressure ulcer of left buttock L89.322 Active 311606046 ALLERGIES No Information ENCOUNTERS Encounter Location Date Diagnosis [place] [address] [address] Dec, [facility] [place] [address] [address] Nov, [place] [address] [address] Oct, Spinal stenosis of cervical region M48.0 2 [facility] [place] [address] [address] Oct, [place] [address] [address] Oct, Spinal stenosis of cervical region M48.0 2 [place] [address] [address] Oct, [place] [address] [address] Oct, Restless leg syndrome G25.81 and Bipolar I disorder, moderate, current or most recent episode depressed, with anxious distress F31.32 [place] [address] [address] Oct, [place] [address] [address] Oct, Coronary artery disease involving [place] coronary artery of [place] heart without angina pectoris I25.10 ; GERD (gastroesophageal reflux disease) K21.9 and Diabetes E11.9 [place] [address] [address] Sep, [place] [address] [address] Sep, [place] [address] [address] Sep, [place] [address] [address] Sep, Spinal stenosis of cervical region M48.0 2 [place] [address] [address] Sep, [address] [address] Sep, Spinal stenosis of cervical region M48.0 2 ; Lumbago with sciatica, right side M54.41 ; Type 2 diabetes mellitus with complication E11.8 and Stage II pressure ulcer of left buttock L89.322 [place] [address] [address] Aug, Bipolar I disorder, moderate, current or most recent episode depressed, with anxious distress F31.32 and Restless leg syndrome G25.81 [place] [address] [place] [address] Aug, [facility] [place] [address] [address] Aug, [facility] [place] [address] [address] Aug, [facility] [place] [address] [address] Aug, [facility] [place] [address] [address] Aug, [facility] [place] [address] [address] Aug, Spinal stenosis in cervical region M48.0 2 [facility], [place] [address] [address] Jul, Bipolar I disorder, moderate, current or most recent episode depressed, with anxious distress F31.32 [facility] [place] [address] [address] Jul, Bipolar I disorder, moderate, current or most recent episode depressed, with anxious distress F31.32 [facility] [place] [address] [address] 18 Jul, 2019 Type 2 diabetes mellitus with complicati on E11.8 ; Coronary artery disease involving [place] coronary artery of [place] heart without angina pectoris I25.10 ; Bipolar I disorder, moderate, current or most recent episode depressed, with anxious distress F31.32 ; Localized edema R60.0 ; Financial difficulties Z59.8 and Spinal stenosis in cervical region M48.02 [facility], [place] [address] [place] [id number] [place] [address] 18 Jul, 2019 [facility] [place] [address] [address] 13 Jul, 2019 [facility] [place] [address] [address] 10 Jul, 2019 [facility] [place] [address] [address] Jul, [facility] [place] [address] [address] Jun, Spinal stenosis of cervical region M48.0 2 ; Fall with injury, subsequent encounter W19.XXXD ; Spinal stenosis of lumbar region with neurogenic claudication M48.062 ; Contusion of left eyebrow, subsequent encounter S00.12XD and Type 2 diabetes mellitus with complication E11.8 [place] [address] [address] Jun, Bipolar I disorder, moderate, current or most recent episode depressed, with anxious distress F31.32 [place] [address] [address] Jun, [place] [address] [address] Jun, [place] [address] [address] Jun, [facility] [place] [address] [address] Jun, [place] [address] [address] May, [place] [address] [address] May, Lumbar back pain with radiculopathy affe cting right lower extremity M54.16 ; Cervicalgia M54.2 ; History of streptococcal infection Z86.19 ; Hypertriglyceridemia E78.1 ; Bipolar 1 disorder F31.9 and Does not have health insurance Z59.8 [place] [address] [address] May, Radiculopathy of arm M54.10 [place] [address] [address] May, [facility] [address] [facility] [id number] [address] [place] [address] May, Fever R50.9 [facility], [place] [address] [address] May, [facility] [place] [address] [address] March, Type 2 diabetes mellitus with complicati on E11.8 [facility] [place] [address] [address] March, Patellar tendinitis, right knee M76.51 [facility] [place] [address] [address] March, Radiculopathy of arm M54.10 [place] [address] [address] March, [place] [address] [address] March, Type 2 diabetes mellitus with complicati on E11.8 ; Hoarseness of voice R49.0 and Acute pain of right knee M25.561 [place] [address] [address] March, [place] [address] [address] March, [facility] [place] [address] [address] Feb, Bipolar 1 disorder F31.9 [place] [address] [address] Feb, Bipolar 1 disorder F31.9 [facility], [place] [address] [address] Jan, [facility] [place] [address] [address] Dec, Type 2 diabetes mellitus with complicati on E11.8 [place] [address] [address] 06 Dec, 2018 Acute non-recurrent maxillary sinusitis J01.00 [place] [address] [address] Nov, Bipolar 1 disorder F31.9 ; Rash R21 ; Ac [place] non-recurrent maxillary sinusitis J01.00 and Type 2 diabetes mellitus with complication E11.8 [facility] [place] [address] [address] 14 Oct, 2018 Hypertriglyceridemia E78.1 [facility] [place] [address] [address] 10 Oct, 2018 Type 2 diabetes mellitus with complicati on E11.8 and Fatigue due to excessive exertion, initial encounter T73.3XXA [facility] [place] [address] [address] 07 Oct, 2018 [facility] [place] [address] [address] Sep, [facility] [place] [address] [address] Sep, Radiculopathy of arm M54.10 [facility] [place] [address] [address] Sep, [facility] [place] [address] [address] May, [facility] [place] [address] [address] May, Radiculopathy of arm M54.10 [facility] [place] [address] [address] May, [facility] [place] [address] [address] May, [facility] [place] [address] [address] May, Radiculopathy of arm M54.10 [facility], [place] [address] [address] Apr, Radiculopathy of arm M54.10 [facility] [place] [address] [place] [id number] [place] [address] March, Radiculopathy of arm M54.10 [facility], [place] [address] [place] [id number] [place] [address] March, Radiculopathy of arm M54.10 [facility], [place] [address] [place] [id number] [place] [address] March, Radiculopathy of arm M54.10 [facility], [place] [address] [address] March, Type 2 diabetes mellitus with complicati on E11.8 ; Radiculopathy of arm M54.10 and Muscle pain M79.1 [place] [address] [address] Feb, Muscle pain M79.1 [place] [address] [address] Jan, Type 2 diabetes mellitus with complicati on E11.8 [facility] [place] [address] [place] [id number] [place] [address] Jan, [facility] [place] [address] [address] Dec, Muscle pain M79.1 [facility] [place] [address] [place] [id number] [place] [address] Nov, Muscle pain M79.1 and Acute pain of righ t shoulder M25.511 [facility] [place] [address] [place] [id number] [place] [address] Nov, [facility] [place] [address] [address] Nov, [facility] [place] [address] [address] Nov, Type 2 diabetes mellitus with complicati on E11.8 [facility] [place] [address] [address] Nov, Impingement syndrome of left shoulder M7 5.42 and Impingement syndrome of right shoulder M75.41 [place] [address] [address] Oct, Type 2 diabetes mellitus with complicati on E11.8 ; Acute pain of right shoulder M25.511 ; Abscess of finger of right hand L02.511 and Umbilical hernia without obstruction and without gangrene K42.9 [place] [address] [address] Oct, [facility] [address] [facility] [id number] [address] [place] [address] Oct, Mucoid otitis media, unspeci fied chronicity, unspecified laterality H65.90 and Abscess of finger of right hand L02.511 [place] [address] [address] Oct, [place] [address] [address] Sep, [place] [address] [address] Aug, [place] [address] [address] 14 Jul, 2017 Sprain of right acromioclavicular ligame nt, initial encounter S43.51XA ; Impingement syndrome of left shoulder M75.42 and Impingement syndrome of right shoulder M75.41 [place] [address] [address] 14 Jul, 2017 Type 2 diabetes mellitus with complicati on E11.8 [place] [address] [address] Jun, [address] [address] Jun, Type 2 diabetes mellitus with complicati on E11.8 ; Lumbago with sciatica, right side M54.41 ; 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 and Pain in left shoulder M25.512 [facility] [place] [address] [address] May, [facility] [place] [address] [address] May, [facility] [place] [address] [address] Apr, Lumbago with sciatica, right side M54.41 and Neck pain on left side M54.2 [facility] [place] [address] [address] Apr, [facility] [place] [address] [address] Apr, [facility] [place] [address] [address] March, [facility] [place] [address] [address] March, [facility] [place] [address] [address] Feb, Acute pain of right shoulder M25.511 [facility] [place] [address] [address] Feb, [facility] [place] [address] [address] Feb, [facility] [place] [address] [address] Feb, Type 2 diabetes mellitus with complicati on E11.8 ; Neuropathy G62.9 and Acute pain of right shoulder M25.511 [facility] [place] [address] [address] Dec, Type 2 diabetes mellitus with complicati on E11.8 [facility] [place] [address] [address] Nov, [facility] [place] [address] [address] Oct, Arthrosis of right acromioclavicular echo nt M19.011 [place] [address] [address] Oct, Type 2 diabetes mellitus with complicati on E11.8 [place] [address] [address] Sep, Type 2 diabetes mellitus with complicati on E11.8 ; Acute pain of right shoulder M25.511 and Prostate cancer screening Z12.5 [place] [address] [address] Sep, [place] [address] [address] Jun, [place] [address] [address] Jun, Muscle tension headache G44.209 and Brux ism F45.8 [place] [address] [address] May, Type 2 diabetes mellitus with complicati on E11.8 ; Erectile dysfunction, unspecified erectile dysfunction type N52.9 and Neuropathy G62.9 [place] [address] [address] Feb, [place] [address] [address] Feb, Type 2 diabetes mellitus with complicati on E11.8 [place] [address] [address] Dec, [place] [address] [address] Dec, Type 2 diabetes mellitus with complicati on E11.8 [place] [address] [address] Nov, Nausea and vomiting, unspecified intacta bility, vomiting of unspecified type R11.2 [place] [address] [address] Oct, Neuropathy G62.9 and Type 2 diabetes kermit litus with complication E11.8 [facility] [place] [address] [address] Sep, [facility] [place] [address] [address] Sep, [facility] [place] [address] [address] Sep, Diabetes E11.9 [facility] [place] [address] [address] Sep, [facility] [place] [address] [address] Jul, [facility] [place] [address] [address] Jun, [facility] [place] [address] [address] Jun, Secondary diabetes mellitus with neurolo gical manifestations, not stated as uncontrolled, or unspecified 249.60 ; Other chronic pain 338.29 and Puncture wound 879.8 [facility] [place] [address] [address] May, [facility] [place] [address] [address] Apr, [facility] [place] [address] [address] March, [facility] [place] [address] [address] Feb, [facility] [place] [address] [address] Feb, [facility] [place] [address] [address] Jan, [facility] [place] [address] [address] Jan, [facility] [address] [id number] [place] [address] Jan, [facility] [address] [id number] [place] [address] Jan, [facility] [address] [id number] [place] [address] Jan, [facility] [address] [id number] [place] [address] Jan, [facility] [address] [id number] [place] [address] Jan, [facility] [address] [id number] [place] [address] Jan, [facility] [address] [id number] [place] [address] Dec, [facility] [address] [id number] [place] [address] Dec, [facility] [address] [id number] [place] [address] Nov, [facility] [address] [id number] [place] [address] Nov, [facility] [address] [id number] [place] [address] Nov, [facility] [address] [id number] [place] [address] Nov, [facility] [address] [id number] [place] [address] Nov, [facility] [address] [id number] [place] [address] Nov, [facility] [address] [id number] [place] [address] Oct, [facility] [address] [id number] [place] [address] Oct, [facility] [address] [id number] [place] [address] Oct, [facility] [address] [id number] [place] [address] Oct, [facility] [address] [id number] [place] [address] Oct, [facility] [address] [id number] [place] [address] Oct, [facility] [address] [id number] [place] [address] Oct, [facility] [address] [id number] [place] [address] Oct, [facility] [address] [id number] [place] [address] Oct, [facility] [address] [id number] [place] [address] Sep, [facility] [address] [id number] [place] [address] Sep, [facility] [address] [id number] [place] [address] Sep, [facility] [address] [id number] [place] [address] Sep, [facility] [address] [id number] [place] [address] Sep, [facility] [address] [id number] [place] [address] Sep, [facility] [address] [id number] [place] [address] Sep, [facility] [address] [id number] [place] [address] Aug, [facility] [address] [id number] [place] [address] Aug, [facility] [address] [id number] [place] [address] Aug, [facility] [address] [id number] [place] [address] 16 Aug, 2013 [facility] [address] [id number] [place] [address] 14 Aug, 2014 [facility] [address] [facility] [id number] [place] [address] 14 Aug, 2014 [facility] [address] [id number] [place] [address] 26 Jul, 2013 [facility] [address] [facility] [id number] [place] [address] 25 Jul, 2013 [facility] [address] [facility] [id number] [place] [address] 25 Jul, 2013 [facility] [address] [id number] [place] [address] 25 Jul, 2013 [facility] [address] [id number] [place] [address] 25 Jul, 2013 [facility] [address] [id number] [place] [address] 19 Jul, 2013 [facility] [address] [facility] [id number] [place] [address] 16 Jul, 2013 [facility] [address] [id number] [place] [address] 16 Jul, 2013 [facility] [address] [id number] [place] [address] 08 Jul, 2013 [facility] [address] [id number] [place] [address] 08 Jul, 2013 [facility] [address] [facility] [id number] [place] [address] Jun, [facility] [address] [id number] [place] [address] Jun, [facility] [address] [id number] [place] [address] Jun, [facility] [address] [id number] [place] [address] Jun, [facility] [address] [id number] [place] [address] Jun, [facility] [address] [facility] [id number] [facility] [place] [address] Jun, [facility] [address] [facility] [id number] [place] [address] Jun, [facility] [address] [facility] [id number] [facility] [place] [address] Jun, [facility] [address] [facility] [id number] [facility] [place] [address] May, [facility] [address] [facility] [id number] [place] [address] May, [facility] [place] [facility] [address] [id number] [place] [address] May, [facility] [place] [facility] [address] [id number] [place] [address] May, [facility] [place] [facility] [address] [facility] [id number] [place] [address] May, [facility] [place] [facility] [address] [facility] [id number] [place] [address] May, [facility] [place] [facility] [address] [id number] [place] [address] May, [facility] [place] [facility] [address] [id number] [place] [address] May, [facility] [place] [facility] [address] [facility] [id number] [place] [address] May, [facility] [place] [facility] [address] [id number] [place] [address] May, [facility] [place] [facility] [address] [facility] [id number] [place] [address] May, [facility] [place] [facility] [address] [facility] [id number] [place] [address] May, [facility] [place] [facility] [address] [id number] [place] [address] May, [facility] [place] [facility] [address] [id number] [facility] [place] [address] Apr, [facility] [place] [facility] [address] [facility] [id number] [place] [address] Apr, [facility] [place] [facility] [address] [id number] [facility] [place] [address] Apr, [facility] [place] [facility] [address] [id number] [place] [address] Apr, [facility] [place] [facility] [address] [facility] [id number] [place] [address] Apr, [facility] [place] [facility] [address] [id number] [place] [address] Apr, [facility] [place] [facility] [address] [id number] [facility] [place] [address] March, [facility] [place] [facility] [address] [id number] [facility] [place] [address] March, [facility] [place] [facility] [address] [id number] [facility] [place] [address] March, [facility] [place] [facility] [address] [id number] [facility] [place] [address] Feb, [facility] [place] [facility] [address] [id number] [place] [address] Feb, [facility] [place] [facility] [address] [id number] [facility] [place] [address] Feb, [facility] [address] [id number] [facility] [place] [address] Feb, [facility] [address] [id number] [place] [address] Feb, [facility] [address] [id number] [facility] [place] [address] Feb, [facility] [address] [id number] [facility] [place] [address] Feb, [facility] [address] [facility] [id number] [place] [address] 17 Feb, 2014 [facility] [address] [facility] [id number] [place] [address] Feb, [facility] [address] [id number] [place] [address] Feb, [facility] [address] [id number] [place] [address] Feb, [facility] [address] [id number] [place] [address] Jan, [facility] [address] [id number] [place] [address] Jan, [facility] [address] [id number] [place] [address] Jan, [facility] [address] [id number] [place] [address] Jan, [facility] [address] [id number] [place] [address] Jan, [facility] [address] [id number] [place] [address] Jan, [facility] [address] [id number] [place] [address] Dec, [facility] [address] [id number] [place] [address] Dec, [facility] [address] [id number] [place] [address] Dec, [facility] [address] [id number] [place] [address] Dec, [facility] [address] [id number] [place] [address] Nov, [facility] [address] [id number] [place] [address] Nov, [facility] [address] [id number] [place] [address] Nov, [facility] [address] [id number] [place] [address] Nov, [facility] [address] [id number] [place] [address] Nov, [facility] [address] [id number] [place] [address] Nov, [facility] [address] [id number] [place] [address] Oct, [facility] [address] [id number] [place] [address] Oct, [facility] [address] [id number] [place] [address] Oct, [facility] [address] [id number] [place] [address] Oct, [facility] [address] [id number] [place] [address] Oct, [facility] [address] [id number] [place] [address] Oct, [facility] [address] [id number] [place] [address] Sep, [facility] [address] [id number] [place] [address] Sep, [facility] [address] [id number] [place] [address] Sep, [facility] [address] [id number] [place] [address] Sep, [facility] [address] [id number] [place] [address] Sep, [facility] [address] [id number] [place] [address] Sep, [facility] [address] [id number] [place] [address] Aug, [facility] [address] [id number] [place] [address] 14 Aug, 2013 [facility] [address] [facility] [id number] [place] [address] Aug, [facility] [address] [id number] [place] [address] Aug, [facility] [address] [id number] [place] [address] 06 Jul, 2013 [facility] [address] [id number] [place] [address] Jul, [facility] [address] [id number] [place] [address] Jun, [facility] [address] [id number] [place] [address] Jun, [facility] [address] [id number] [place] [address] May, [facility] [address] [id number] [place] [address] May, [facility] [address] [id number] [place] [address] May, [facility] [address] [id number] [place] [address] May, [facility] [address] [id number] [place] [address] May, [facility] [address] [id number] [place] [address] May, [facility] [address] [id number] [place] [address] Apr, [facility] [address] [id number] [place] [address] Apr, [facility] [address] [id number] [place] [address] Apr, [facility] [address] [id number] [place] [address] Apr, [facility] [address] [id number] [place] [address] March, [facility] [address] [id number] [place] [address] March, [facility] [address] [id number] [place] [address] March, [facility] [address] [id number] [place] [address] Feb, [facility] [address] [id number] [place] [address] Feb, [facility] [address] [id number] [place] [address] Jan, [facility] [address] [id number] [place] [address] Dec, [facility] [address] [id number] [place] [address] Dec, [facility] [address] [id number] [place] [address] Dec, [facility] [address] [id number] [place] [address] Dec, [facility] [address] [id number] [place] [address] Dec, [facility] [address] [id number] [place] [address] Nov, [facility] [address] [id number] [place] [address] Nov, [facility] [address] [id number] [place] [address] Nov, [facility] [address] [id number] [place] [address] Nov, [facility] [address] [id number] [place] [address] Nov, [facility] [address] [id number] [place] [address] Oct, [facility] [address] [id number] [place] [address] Oct, [facility] [address] [id number] [place] [address] Oct, [facility] [address] [id number] [place] [address] Oct, [facility] [address] [id number] [place] [address] Sep, [facility] [address] [id number] [place] [address] Sep, [facility] [address] [id number] [place] [address] Sep, [facility] [address] [id number] [place] [address] Sep, [facility] [id number] [place] [address] Sep, [facility] [address] [id number] [place] [address] Sep, [facility] [address] [id number] [place] [address] Sep, [facility] [address] [id number] [place] [address] Sep, [facility] [address] [id number] [place] [address] Sep, [facility] [address] [id number] [place] [address] Sep, [facility] [address] [id number] [place] [address] Aug, [facility] [address] [id number] [place] [address] Aug, [facility] [address] [id number] [place] [address] Aug, [facility] [address] [id number] [place] [address] Aug, [facility] [address] [id number] [place] [address] Aug, [facility] [address] [id number] [place] [address] Aug, [facility] [address] [id number] [place] [address] Jul, [facility] [address] [id number] [place] [address] Jun, [facility] [address] [id number] [place] [address] Apr, [facility] [address] [id number] [place] [address] Apr, [facility] [address] [id number] [place] [address] Apr, [facility] [address] [id number] [place] [address] Apr, [facility] [address] [id number] [place] [address] March, [facility] [address] [id number] [place] [address] March, [facility] [address] [id number] [place] [address] March, [facility] [address] [id number] [place] [address] March, [facility] [address] [id number] [place] [address] March, [facility] [address] [id number] [place] [address] Feb, [facility] [address] [id number] [place] [address] Feb, [facility] [address] [id number] [place] [address] Feb, [facility] [address] [id number] [place] [address] Feb, [facility] [address] [id number] [place] [address] Jan, [facility] [address] [id number] [place] [address] 06 Jan, 2012 [facility] [address] [id number] [place] [address] 05 Jan, 2012 [facility] [address] [id number] [place] [address] 28 Dec, 2011 [facility] [address] [id number] [place] [address] 15 Dec, 2011 [facility] [address] [id number] [place] [address] 14 Dec, 2011 [facility] [id number] [place] [address] 08 Dec, 2011 [facility] [address] [id number] [place] [address] 08 Dec, 2011 [facility] [address] [id number] [place] [address] Nov, [facility] [address] [id number] [place] [address] Nov, [facility] [id number] [place] [address] Nov, [facility] [address] [id number] [place] [address] Oct, [facility] [address] [id number] [place] [address] Oct, [facility] [address] [id number] [place] [address] Oct, [facility] [address] [id number] [place] [address] Sep, [facility] [address] [id number] [place] [address] 13 Jul, 2011 [facility] [address] [facility] [id number] [place] [address] Apr, IMMUNIZATIONS No Known Immunizations SOCIAL HISTORY [...]
--- OUTSIDE RECORDS SUMMARY | 2020-01-05 17:41 | XMS REPORT ---
Author Author Porfirio ESCALANTE Organization [facility] Address [address] [place] [address] Care Team Providers Care Product Safety Tester Name Role Phone KUN ESCALANTE Unavailable PROBLEMS Type Condition ICD9-CM Code PNQ60-FM Code Onset Dates Condition S tatus SNOMED Code Problem Hypertriglyceridemia E78.1 Active 527828319 Problem Lumbago with sciatica, right side M54.41 Active 563009606 Problem Muscle pain M79.1 Active 47200574 Problem GERD (gastroesophageal reflux disease) K21.9 Active 549866179 Problem Neuropathy G62.9 Active 517685235 Problem Diabetes E11.9 Active 597900886 Problem Type 2 diabetes mellitus with complication E11.8 Active 40105745 Problem Bipolar I disorder, moderate , current or most recent episode depressed, with anxious distress F31.32 Active 239577 06 Problem Coronary artery disease invo 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.10 Active 1641 992397037 Problem Restless leg syndrome G25.81 Active 47373201 Problem Stage II pressure ulcer of left buttock L89.322 Active [id number] ALLERGIES No Information ENCOUNTERS Encounter Location Date Diagnosis [facility] [id number] [place] [address] Dec, [facility] [address] [address] Nov, [facility] [address] [address] Nov, [facility] [address] [address] Nov, Type 2 diabetes mellitus with complicati on E11.8 [place] [address] [address] Nov, [facility] [address] [address] Oct, Spinal stenosis of cervical region M48.0 2 [facility] [address] [address] Oct, [facility] [address] [address] Oct, Spinal stenosis of cervical region M48.0 2 [facility] [address] [address] Oct, [facility] [address] [address] Oct, Restless leg syndrome G25.81 and Bipolar I disorder, moderate, current or most recent episode depressed, with anxious distress F31.32 [place] [address] [address] Oct, [facility] [address] [address] Oct, Coronary artery disease invo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.10 ; GERD (gastroesophageal reflux disease) K21.9 and Diabetes E11.9 [place] [address] [address] Sep, [facility] [address] [address] Sep, [facility] [address] [address] Sep, [facility] [address] [address] Sep, Spinal stenosis of cervical region M48.0 2 [facility] [address] [address] Sep, [facility] [address] [address] Sep, Spinal stenosis of cervical region M48.0 2 ; Lumbago with sciatica, right side M54.41 ; Type 2 diabetes mellitus with complication E11.8 and Stage II pressure ulcer of left buttock L89.322 [place] [address] [address] Aug, Bipolar I disorder, moderate, current or most recent episode depressed, with anxious distress F31.32 and Restless leg syndrome G25.81 [place] [address] [address] Aug, [facility] [address] [address] Aug, [place] [address] [address] Aug, [place] [address] [address] Aug, [place] [address] [address] Aug, [facility] [address] [address] Aug, Spinal stenosis in cervical region M48.0 2 [place] [address] [address] Jul, Bipolar I disorder, moderate, current or most recent episode depressed, with anxious distress F31.32 [place] [address] [address] Jul, Bipolar I disorder, moderate, current or most recent episode depressed, with anxious distress F31.32 [place] [address] [address] 18 Jul, 2019 Type 2 diabetes mellitus with complicati on E11.8 ; Coronary artery disease invo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.10 ; Bipolar I disorder, moderate, current or most recent episode depressed, with anxious distress F31.32 ; Localized edema R60.0 ; Financial difficulties Z59.8 and Spinal stenosis in cervical region M48.02 [place] [address] [place] [address] 18 Jul, 2019 [facility] [address] [address] 13 Jul, 2019 [facility] [address] [address] 10 Jul, 2019 [facility] [address] [address] Jul, [facility] [address] [address] Jun, Spinal stenosis of cervical region M48.0 2 ; Fall with injury, subsequent encounter W19.XXXD ; Spinal stenosis of lumbar region with neurogenic claudication M48.062 ; Contusion of left eyebrow, subsequent encounter S00.12XD and Type 2 diabetes mellitus with complication E11.8 [place] [address] [address] Jun, Bipolar I disorder, moderate, current or most recent episode depressed, with anxious distress F31.32 [place] [address] [address] Jun, [place] [address] [address] Jun, [place] [address] [address] Jun, [place] [address] [address] Jun, [facility] [address] [address] May, [place] [address] [address] May, Lumbar back pain with radiculopathy affe cting right lower extremity M54.16 ; Cervicalgia M54.2 ; History of streptococcal infection Z86.19 ; Hypertriglyceridemia E78.1 ; Bipolar 1 disorder F31.9 and Does not have health insurance Z59.8 [facility] [id number] [place] [address] May, Radiculopathy of arm M54.10 [facility] [id number] [place] [address] May, [facility] [address] [facility] [id number] [address] [place] [address] May, Fever R50.9 [facility] [address] [address] May, [facility] [address] [address] March, Type 2 diabetes mellitus with complicati on E11.8 [facility] [address] [address] March, Patellar tendinitis, right knee M76.51 [facility] [address] [address] March, Radiculopathy of arm M54.10 [facility] [id number] [place] [address] March, [facility] [address] [address] March, Type 2 diabetes mellitus with complicati on E11.8 ; Hoarseness of voice R49.0 and Acute pain of right knee M25.561 [facility] [id number] [place] [address] March, [facility] [address] [address] March, [facility] [address] [address] Feb, Bipolar 1 disorder F31.9 [facility] [id number] [place] [address] Feb, Bipolar 1 disorder F31.9 [facility] [address] [address] Jan, [facility] [address] [address] Dec, Type 2 diabetes mellitus with complicati on E11.8 [facility] [address] [address] 06 Dec, 2018 Acute non-recurrent maxillary sinusitis J01.00 [place] [address] [address] Nov, Bipolar 1 disorder F31.9 ; Rash R21 ; Ac celsa non-recurrent maxillary sinusitis J01.00 and Type 2 diabetes mellitus with complication E11.8 [place] [address] [address] 14 Oct, 2018 Hypertriglyceridemia E78.1 [place] [address] [address] 10 Oct, 2018 Type 2 diabetes mellitus with complicati on E11.8 and Fatigue due to excessive exertion, initial encounter T73.3XXA [place] [address] [address] Oct, [place] [address] [address] Sep, [place] [address] [address] Sep, Radiculopathy of arm M54.10 [place] [address] [address] Sep, [place] [address] [address] May, [place] [address] [address] May, Radiculopathy of arm M54.10 [place] [address] [address] May, [place] [address] [place] [address] May, [facility] [address] [address] May, Radiculopathy of arm M54.10 [facility] [id number] [place] [address] Apr, Radiculopathy of arm M54.10 [facility] [id number] [place] [address] March, Radiculopathy of arm M54.10 [facility] [id number] [place] [address] March, Radiculopathy of arm M54.10 [facility] [address] [address] March, Radiculopathy of arm M54.10 [facility] [address] [address] March, Type 2 diabetes mellitus with complicati on E11.8 ; Radiculopathy of arm M54.10 and Muscle pain M79.1 [place] [address] [address] Feb, Muscle pain M79.1 [facility] [address] [address] Jan, Type 2 diabetes mellitus with complicati on E11.8 [facility] [address] [address] Jan, [facility] [address] [address] Dec, Muscle pain M79.1 [facility] [address] [address] Nov, Muscle pain M79.1 and Acute pain of righ t shoulder M25.511 [facility] [address] [address] Nov, [place] [address] [address] Nov, [place] [address] [address] Nov, Type 2 diabetes mellitus with complicati on E11.8 [facility] [address] [address] Nov, Impingement syndrome of left shoulder M7 5.42 and Impingement syndrome of right shoulder M75.41 [place] [address] [address] 18 Oct, 2017 Type 2 diabetes mellitus with complicati on E11.8 ; Acute pain of right shoulder M25.511 ; Abscess of finger of right hand L02.511 and Umbilical hernia without obstruction and without gangrene K42.9 [place] [address] [address] Oct, [facility] [address] [facility] [id number] [place] [address] Oct, Mucoid otitis media, unspeci fied chronicity, unspecified laterality H65.90 and Abscess of finger of right hand L02.511 [place] [address] [address] Oct, [place] [address] [address] Sep, [place] [address] [address] 24 Aug, 2017 [place] [address] [address] 14 Jul, 2017 Sprain of right acromioclavicular ligame nt, initial encounter S43.51XA ; Impingement syndrome of left shoulder M75.42 and Impingement syndrome of right shoulder M75.41 [place] [address] [address] 14 Jul, 2017 Type 2 diabetes mellitus with complicati on E11.8 [facility] [id number] [place] [address] Jun, [facility] [id number] [place] [address] Jun, Type 2 diabetes mellitus with complicati on E11.8 ; Lumbago with sciatica, right side M54.41 ; 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 and Pain in left shoulder M25.512 [facility] [id number] [place] [address] May, [facility] [address] [address] May, [facility] [address] [address] Apr, Lumbago with sciatica, right side M54.41 and Neck pain on left side M54.2 [facility] [id number] [place] [address] Apr, [facility] [id number] [place] [address] Apr, [facility] [id number] [place] [address] March, [facility] [address] [address] March, [facility] [address] [address] Feb, Acute pain of right shoulder M25.511 [facility] [id number] [place] [address] Feb, [facility] [id number] [place] [address] Feb, [facility] [id number] [place] [address] Feb, Type 2 diabetes mellitus with complicati on E11.8 ; Neuropathy G62.9 and Acute pain of right shoulder M25.511 [place] [address] [address] Dec, Type 2 diabetes mellitus with complicati on E11.8 [address] [address] [address] Nov, [place] [address] [address] Oct, Arthrosis of right acromioclavicular echo nt M19.011 [place] [address] [address] Oct, Type 2 diabetes mellitus with complicati on E11.8 [place] [address] [address] Sep, Type 2 diabetes mellitus with complicati on E11.8 ; Acute pain of right shoulder M25.511 and Prostate cancer screening Z12.5 [place] [address] [address] Sep, [address] [address] [address] Jun, [place] [address] [address] Jun, Muscle tension headache G44.209 and Brux ism F45.8 [place] [address] [address] May, Type 2 diabetes mellitus with complicati on E11.8 ; Erectile dysfunction, unspecified erectile dysfunction type N52.9 and Neuropathy G62.9 [address] [address] [address] Feb, [address] [address] [address] Feb, Type 2 diabetes mellitus with complicati on E11.8 [place] [address] [address] Dec, [facility] [address] [address] Dec, Type 2 diabetes mellitus with complicati on E11.8 [facility] [address] [address] Nov, Nausea and vomiting, unspecified intacta bility, vomiting of unspecified type R11.2 [facility] [address] [address] Oct, Neuropathy G62.9 and Type 2 diabetes kermit litus with complication E11.8 [facility] [address] [address] Sep, [facility] [address] [address] Sep, [facility] [address] [address] Sep, Diabetes E11.9 [facility] [address] [address] Sep, [facility] [address] [address] Jul, [facility] [address] [address] Jun, [facility] [address] [address] Jun, Secondary diabetes mellitus with neurolo gical manifestations, not stated as uncontrolled, or unspecified 249.60 ; Other chronic pain 338.29 and Puncture wound 879.8 [facility] [address] [address] May, [facility] [address] [address] Apr, [facility] [address] [address] March, [facility] [address] [address] 14 Feb, 2015 [facility] [place] [facility] [address] [facility] [id number] [facility] [address] Feb, [facility] [place] [facility] [address] [facility] [id number] [place] [address] Jan, [facility] [place] [facility] [address] [id number] [facility] [place] [address] Jan, [facility] [place] [facility] [address] [id number] [place] [address] Jan, [facility] [place] [facility] [address] [facility] [id number] [place] [address] Jan, [facility] [place] [facility] [address] [id number] [place] [address] Jan, [facility] [place] [facility] [address] [id number] [facility] [place] [address] Jan, [facility] [place] [facility] [address] [id number] [facility] [place] [address] Jan, [facility] [place] [facility] [address] [id number] [facility] [place] [address] Jan, [facility] [place] [facility] [address] [id number] [facility] [place] [address] Dec, [facility] [place] [facility] [address] [id number] [place] [address] Dec, [facility] [place] [facility] [address] [id number] [facility] [place] [address] Nov, [facility] [place] [facility] [address] [id number] [facility] [place] [address] Nov, [facility] [place] [facility] [address] [id number] [place] [address] Nov, [facility] [place] [facility] [address] [id number] [facility] [place] [address] Nov, [facility] [place] [facility] [address] [id number] [place] [address] Nov, [facility] [place] [facility] [address] [id number] [place] [address] Nov, [facility] [place] [facility] [address] [id number] [place] [address] Oct, [facility] [place] [facility] [address] [id number] [place] [address] Oct, [facility] [place] [facility] [address] [id number] [place] [address] Oct, [facility] [place] [facility] [address] [id number] [place] [address] Oct, [facility] [place] [facility] [address] [id number] [place] [address] Oct, [facility] [place] [facility] [address] [id number] [place] [address] Oct, [facility] [place] [facility] [address] [id number] [place] [address] Oct, [facility] [place] [facility] [address] [id number] [place] [address] Oct, [facility] [place] [facility] [address] [id number] [place] [address] Oct, [facility] [place] [facility] [address] [id number] [place] [address] Sep, [facility] [place] [facility] [address] [id number] [place] [address] Sep, [facility] [place] [facility] [address] [id number] [place] [address] Sep, [facility] [place] [facility] [address] [id number] [place] [address] Sep, [facility] [place] [facility] [id number] [place] [address] Sep, [facility] [place] [facility] [address] [id number] [place] [address] Sep, [facility] [place] [facility] [address] [id number] [place] [address] Sep, [facility] [place] [facility] [address] [id number] [place] [address] Aug, [facility] [place] [facility] [address] [id number] [place] [address] 21 Aug, 2013 [facility] [place] [facility] [address] [id number] [place] [address] 16 Aug, 2013 [facility] [place] [facility] [address] [id number] [place] [address] 16 Aug, 2013 [facility] [place] [facility] [address] [facility] [id number] [place] [address] 14 Aug, 2014 [facility] [place] [facility] [address] [id number] [place] [address] 14 Aug, 2014 [facility] [place] [facility] [address] [id number] [place] [address] 26 Sep, 2013 [facility] [place] [facility] [address] [id number] [place] [address] 25 Sep, 2013 [facility] [place] [facility] [address] [id number] [place] [address] 25 Sep, 2013 [facility] [place] [facility] [address] [id number] [place] [address] 25 Sep, 2013 [facility] [place] [facility] [address] [id number] [place] [address] 25 Sep, 2013 [facility] [place] [facility] [address] [id number] [place] [address] 19 Sep, 2013 [facility] [place] [facility] [address] [id number] [place] [address] 16 Sep, 2013 [facility] [place] [facility] [address] [id number] [place] [address] 16 Sep, 2013 [facility] [place] [facility] [address] [id number] [place] [address] 08 Sep, 2013 [facility] [place] [facility] [address] [id number] [place] [address] 08 Sep, 2013 [facility] [place] [facility] [address] [id number] [place] [address] Jun, [facility] [place] [facility] [address] [id number] [place] [address] Jun, [facility] [place] [facility] [address] [facility] [id number] [place] [address] Jun, [facility] [place] [facility] [address] [facility] [id number] [place] [address] Jun, [facility] [place] [facility] [address] [facility] [id number] [place] [address] Jun, [facility] [place] [facility] [address] [id number] [place] [address] Jun, [facility] [place] [facility] [address] [facility] [id number] [place] [address] Jun, [facility] [place] [facility] [address] [facility] [id number] [facility] [place] [address] Jun, [facility] [place] [facility] [address] [facility] [id number] [place] [address] May, [facility] [place] [facility] [address] [id number] [place] [address] May, [facility] [place] [facility] [address] [facility] [id number] [place] [address] May, [facility] [place] [facility] [address] [facility] [id number] [facility] [place] [address] May, [facility] [place] [facility] [address] [facility] [id number] [facility] [place] [address] May, [facility] [place] [facility] [address] [id number] [place] [address] May, [facility] [place] [facility] [address] [id number] [facility] [place] [address] May, [facility] [place] [facility] [address] [facility] [id number] [place] [address] May, [facility] [place] [facility] [address] [facility] [id number] [facility] [place] [address] May, [facility] [place] [facility] [address] [facility] [id number] [place] [address] May, [facility] [place] [facility] [address] [id number] [place] [address] May, [facility] [place] [facility] [address] [id number] [place] [address] May, [facility] [place] [facility] [address] [id number] [place] [address] May, [facility] [place] [facility] [address] [id number] [place] [address] Apr, [facility] [place] [facility] [address] [id number] [place] [address] Apr, [facility] [place] [facility] [address] [id number] [place] [address] Apr, [facility] [place] [facility] [address] [id number] [place] [address] Apr, [facility] [place] [facility] [address] [id number] [place] [address] Apr, [facility] [place] [facility] [address] [id number] [place] [address] Apr, [facility] [place] [facility] [address] [id number] [place] [address] March, [facility] [place] [facility] [address] [id number] [place] [address] March, [facility] [place] [facility] [address] [id number] [place] [address] March, [facility] [place] [facility] [address] [id number] [place] [address] Feb, [facility] [place] [facility] [address] [id number] [place] [address] Feb, [facility] [place] [facility] [address] [id number] [place] [address] Feb, [facility] [place] [facility] [address] [id number] [place] [address] Feb, [facility] [place] [facility] [address] [facility] [id number] [place] [address] Feb, [facility] [place] [facility] [address] [id number] [facility] [place] [address] Feb, [facility] [place] [facility] [address] [id number] [place] [address] Feb, [facility] [place] [facility] [address] [id number] [place] [address] Feb, [facility] [place] [facility] [address] [facility] [id number] [place] [address] Feb, [facility] [address] [id number] [place] [address] Feb, [facility] [address] [id number] [place] [address] Feb, [facility] [address] [id number] [place] [address] Jan, [facility] [address] [id number] [place] [address] Jan, [facility] [address] [id number] [place] [address] Jan, [facility] [address] [id number] [place] [address] Jan, [facility] [address] [id number] [place] [address] Jan, [facility] [address] [id number] [place] [address] Jan, [facility] [address] [id number] [place] [address] Dec, [facility] [address] [id number] [place] [address] Dec, [facility] [address] [id number] [place] [address] Dec, [facility] [address] [id number] [place] [address] Dec, [facility] [address] [id number] [place] [address] Nov, [facility] [address] [id number] [place] [address] Nov, [facility] [address] [id number] [place] [address] Nov, [facility] [address] [id number] [place] [address] Nov, [facility] [address] [id number] [place] [address] Nov, [facility] [address] [id number] [place] [address] Nov, [facility] [address] [id number] [place] [address] Oct, [facility] [address] [id number] [place] [address] Oct, [facility] [address] [id number] [place] [address] Oct, [facility] [address] [id number] [place] [address] Oct, [facility] [address] [id number] [place] [address] Oct, [facility] [address] [id number] [place] [address] Oct, [facility] [address] [id number] [place] [address] Sep, [facility] [id number] [place] [address] Sep, [facility] [address] [id number] [place] [address] Sep, [facility] [address] [id number] [place] [address] Sep, [facility] [address] [id number] [place] [address] Sep, [facility] [address] [id number] [place] [address] Sep, [facility] [address] [id number] [place] [address] Aug, [facility] [address] [id number] [place] [address] 14 Aug, 2013 [facility] [address] [id number] [place] [address] Aug, [facility] [address] [id number] [place] [address] Aug, [facility] [address] [id number] [place] [address] Jul, [facility] [address] [id number] [place] [address] Jul, [facility] [address] [id number] [place] [address] Jun, [facility] [address] [id number] [place] [address] Jun, [facility] [address] [id number] [place] [address] May, [facility] [address] [id number] [place] [address] May, [facility] [address] [id number] [place] [address] May, [facility] [address] [id number] [place] [address] May, [facility] [address] [id number] [place] [address] May, [facility] [address] [id number] [place] [address] May, [facility] [address] [id number] [place] [address] Apr, [facility] [address] [id number] [place] [address] Apr, [facility] [address] [id number] [facility] [place] [address] Apr, [facility] [address] [id number] [place] [address] Apr, [facility] [address] [id number] [place] [address] March, [facility] [address] [id number] [facility] [place] [address] March, [facility] [address] [id number] [place] [address] March, [facility] [address] [id number] [place] [address] Feb, [facility] [address] [id number] [place] [address] Feb, [facility] [address] [id number] [place] [address] Jan, [facility] [address] [id number] [place] [address] Dec, [facility] [address] [id number] [place] [address] Dec, [facility] [address] [id number] [place] [address] Dec, [facility] [address] [id number] [place] [address] Dec, [facility] [address] [id number] [place] [address] Dec, [facility] [address] [id number] [place] [address] Nov, [facility] [address] [id number] [place] [address] Nov, [facility] [address] [id number] [place] [address] Nov, [facility] [address] [id number] [place] [address] Nov, [facility] [address] [id number] [place] [address] Nov, [facility] [address] [id number] [place] [address] Oct, [facility] [address] [id number] [place] [address] Oct, [facility] [address] [id number] [place] [address] Oct, [facility] [address] [id number] [place] [address] Oct, [facility] [address] [id number] [place] [address] Sep, [facility] [address] [id number] [place] [address] Sep, [facility] [address] [id number] [place] [address] Sep, [facility] [address] [id number] [place] [address] Sep, [facility] [address] [id number] [place] [address] Sep, [facility] [address] [id number] [place] [address] Sep, [facility] [address] [id number] [place] [address] Sep, [facility] [address] [id number] [place] [address] Sep, [facility] [address] [id number] [place] [address] Sep, [facility] [address] [id number] [place] [address] Sep, [facility] [address] [id number] [place] [address] Aug, [facility] [address] [id number] [place] [address] Aug, [facility] [address] [id number] [place] [address] Aug, [facility] [address] [id number] [place] [address] Aug, [facility] [address] [id number] [place] [address] Aug, [facility] [address] [id number] [place] [address] Aug, [facility] [address] [id number] [place] [address] Jul, [facility] [address] [id number] [place] [address] Jun, [facility] [address] [id number] [place] [address] Apr, [facility] [address] [id number] [place] [address] Apr, [facility] [address] [id number] [place] [address] Apr, [facility] [address] [id number] [place] [address] Apr, [facility] [address] [id number] [place] [address] March, [facility] [address] [id number] [place] [address] March, [facility] [address] [id number] [place] [address] March, [facility] [address] [id number] [place] [address] March, [facility] [address] [id number] [place] [address] March, [facility] [address] [facility] [id number] [place] [address] Feb, [facility] [address] [id number] [place] [address] Feb, [facility] [address] [id number] [place] [address] Feb, [facility] [address] [id number] [place] [address] Feb, [facility] [address] [id number] [place] [address] Jan, [facility] [address] [id number] [place] [address] Jan, [facility] [address] [id number] [place] [address] Jan, [facility] [address] [id number] [place] [address] Dec, [facility] [address] [id number] [place] [address] Dec, [facility] [address] [id number] [place] [address] 14 Dec, 2011 [facility] [address] [id number] [place] [address] Dec, [facility] [address] [id number] [place] [address] 08 Dec, 2011 [facility] [address] [id number] [place] [address] Nov, [facility] [address] [id number] [place] [address] Nov, [facility] [address] [id number] [place] [address] Nov, [facility] [address] [id number] [place] [address] Oct, [facility] [address] [id number] [place] [address] Oct, [facility] [address] [id number] [place] [address] Oct, [facility] [address] [id number] [place] [address] Sep, [facility] [address] [id number] [place] [address] Jul, [facility] [address] [id number] [place] [address] Apr, IMMUNIZATIONS No Known Immunizations SOCIAL HISTORY [...]
--- OUTSIDE RECORDS SUMMARY | 2020-01-05 17:42 | XMS REPORT ---
Author Author Porfirio JAMESON Organization [facility] Address [address] [place] [address] Care Team Providers Care Collection Agent Name Role Phone ANALISA JAMESON Unavailable PROBLEMS Type Condition ICD9-CM Code THN37-VK Code Onset Dates Condition S tatus SNOMED Code Problem Hypertriglyceridemia E78.1 Active 462016123 Problem Lumbago with sciatica, right side M54.41 Active 498295932 Problem Muscle pain M79.1 Active 25512211 Problem GERD (gastroesophageal reflux disease) K21.9 Active 180749636 Problem Neuropathy G62.9 Active 266609368 Problem Diabetes E11.9 Active 014849176 Problem Type 2 diabetes mellitus with complication E11.8 Active 13602685 Problem Bipolar I disorder, moderate , current or most recent episode depressed, with anxious distress F31.32 Active 725326 06 Problem Coronary artery disease invo lving [place] coronary artery of [place] heart without angina pectoris I25.10 Active 1641 127530329 Problem Restless leg syndrome G25.81 Active 81111518 Problem Stage II pressure ulcer of left buttock L89.322 Active [id number] ALLERGIES No Information ENCOUNTERS Encounter Location Date Diagnosis [place] [id number] [address] Dec, [facility] [address] [address] Oct, Spinal stenosis of cervical region M48.0 2 [facility] [address] [address] Oct, [facility] [address] [address] Oct, Spinal stenosis of cervical region M48.0 2 [facility] [address] [address] Oct, [facility] [address] [address] Oct, Restless leg syndrome G25.81 and Bipolar I disorder, moderate, current or most recent episode depressed, with anxious distress F31.32 [facility] [address] [address] Oct, [facility] [address] [address] Oct, Coronary artery disease involving [place] coronary artery of [place] heart without angina pectoris I25.10 ; GERD (gastroesophageal reflux disease) K21.9 and Diabetes E11.9 [place] [address] [address] Sep, [place] [address] [address] Sep, [place] [address] [address] Sep, [facility] [address] [address] Sep, Spinal stenosis of cervical region M48.0 2 [place] [address] [address] Sep, [place] [address] [address] Sep, Spinal stenosis of cervical region M48.0 2 ; Lumbago with sciatica, right side M54.41 ; Type 2 diabetes mellitus with complication E11.8 and Stage II pressure ulcer of left buttock L89.322 [place] [address] [address] Aug, Bipolar I disorder, moderate, current or most recent episode depressed, with anxious distress F31.32 and Restless leg syndrome G25.81 [facility] [address] [address] Aug, [facility] [address] [address] Aug, [facility] [address] [place] [id number] [place] [address] Aug, [facility] [address] [place] [address] [id number] [place] [address] Aug, [facility] [address] [place] [address] [id number] [place] [address] Aug, [facility] [address] [place] [id number] [place] [address] Aug, Spinal stenosis in cervical region M48.0 2 [facility] [address] [place] [address] [id number] [place] [address] Jul, Bipolar I disorder, moderate, current or most recent episode depressed, with anxious distress F31.32 [facility] [address] [place] [id number] [place] [address] Jul, Bipolar I disorder, moderate, current or most recent episode depressed, with anxious distress F31.32 [facility] [address] [place] [address] [id number] [place] [address] Jul, Type 2 diabetes mellitus with complicati on E11.8 ; Coronary artery disease involving [place] coronary artery of [place] heart without angina pectoris I25.10 ; Bipolar I disorder, moderate, current or most recent episode depressed, with anxious distress F31.32 ; Localized edema R60.0 ; Financial difficulties Z59.8 and Spinal stenosis in cervical region M48.02 [facility] [address] [place] [address] [id number] [place] [address] Jul, [facility] [address] [place] [address] [id number] [place] [address] 13 Jul, 2019 [facility] [address] [address] Jul, [facility] [address] [place] [address] [id number] [place] [address] Jul, [facility] [address] [place] [address] [id number] [place] [address] 21 Aug, 2019 Spinal stenosis of cervical region M48.0 2 ; Fall with injury, subsequent encounter W19.XXXD ; Spinal stenosis of lumbar region with neurogenic claudication M48.062 ; Contusion of left eyebrow, subsequent encounter S00.12XD and Type 2 diabetes mellitus with complication E11.8 [facility] [address] [place] [id number] [place] [address] Jun, Bipolar I disorder, moderate, current or most recent episode depressed, with anxious distress F31.32 [place] [address] [address] Jun, [place] [address] [address] Jun, [place] [address] [address] Jun, [place] [address] [address] Jun, [place] [address] [address] May, [facility] [address] [address] May, Lumbar back pain with radiculopathy affe cting right lower extremity M54.16 ; Cervicalgia M54.2 ; History of streptococcal infection Z86.19 ; Hypertriglyceridemia E78.1 ; Bipolar 1 disorder F31.9 and Does not have health insurance Z59.8 [place] [address] [address] May, Radiculopathy of arm M54.10 [facility] [address] [address] May, [facility] [address] [facility] [id number] [address] [place] [address] May, Fever R50.9 [facility] [address] [address] May, [facility] [address] [address] March, Type 2 diabetes mellitus with complicati on E11.8 [place] [address] [address] March, Patellar tendinitis, right knee M76.51 [place] [address] [address] March, Radiculopathy of arm M54.10 [place] [address] [address] March, [place] [address] [address] March, Type 2 diabetes mellitus with complicati on E11.8 ; Hoarseness of voice R49.0 and Acute pain of right knee M25.561 [place] [address] [address] March, [place] [address] [address] March, [place] [address] [address] Feb, Bipolar 1 disorder F31.9 [place] [address] [address] Feb, Bipolar 1 disorder F31.9 [place] [address] [address] Jan, [place] [address] [address] Dec, Type 2 diabetes mellitus with complicati on E11.8 [place] [address] [address] Dec, Acute non-recurrent maxillary sinusitis J01.00 [place] [address] [address] Nov, Bipolar 1 disorder F31.9 ; Rash R21 ; Ac celsa non-recurrent maxillary sinusitis J01.00 and Type 2 diabetes mellitus with complication E11.8 [facility] [address] [address] 14 Oct, 2018 Hypertriglyceridemia E78.1 [facility] [address] [address] 10 Oct, 2018 Type 2 diabetes mellitus with complicati on E11.8 and Fatigue due to excessive exertion, initial encounter T73.3XXA [facility] [address] [address] 07 Oct, 2018 [facility] [address] [address] Sep, [facility] [address] [address] Sep, Radiculopathy of arm M54.10 [facility] [address] [address] Sep, [facility] [address] [address] May, [facility] [address] [address] May, Radiculopathy of arm M54.10 [facility] [address] [address] May, [facility] [address] [address] May, [facility] [address] [address] May, Radiculopathy of arm M54.10 [facility] [address] [address] Apr, Radiculopathy of arm M54.10 [facility] [address] [address] March, Radiculopathy of arm M54.10 [facility] [address] [address] March, Radiculopathy of arm M54.10 [facility] [address] [address] March, Radiculopathy of arm M54.10 [facility] [address] [address] March, Type 2 diabetes mellitus with complicati on E11.8 ; Radiculopathy of arm M54.10 and Muscle pain M79.1 [facility] [address] [address] Feb, Muscle pain M79.1 [facility] [address] [address] Jan, Type 2 diabetes mellitus with complicati on E11.8 [facility] [address] [address] Jan, [facility] [address] [address] Dec, Muscle pain M79.1 [facility] [address] [address] Nov, Muscle pain M79.1 and Acute pain of righ t shoulder M25.511 [facility] [address] [address] Nov, [facility] [address] [address] Nov, [facility] [address] [address] Nov, Type 2 diabetes mellitus with complicati on E11.8 [facility] [address] [address] Nov, Impingement syndrome of left shoulder M7 5.42 and Impingement syndrome of right shoulder M75.41 [place] [address] [place] [address] [place] [address] Oct, Type 2 diabetes mellitus with complicati on E11.8 ; Acute pain of right shoulder M25.511 ; Abscess of finger of right hand L02.511 and Umbilical hernia without obstruction and without gangrene K42.9 [facility] [address] [place] [id number] [place] [address] Oct, [facility] [address] [facility] [id number] [address] [place] [address] Oct, Mucoid otitis media, unspeci fied chronicity, unspecified laterality H65.90 and Abscess of finger of right hand L02.511 [place] [address] [address] Oct, [place] [address] [address] Sep, [place] [address] [address] Aug, [place] [address] [address] 14 Jul, 2017 Sprain of right acromioclavicular ligame nt, initial encounter S43.51XA ; Impingement syndrome of left shoulder M75.42 and Impingement syndrome of right shoulder M75.41 [place] [address] [address] Jul, Type 2 diabetes mellitus with complicati on E11 [place] [address] [address] Jun, [place] [address] [address] Jun, Type 2 diabetes mellitus with complicati on E11.8 ; Lumbago with sciatica, right side M54.41 ; 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 and Pain in left shoulder M25.512 [place] [address] [address] May, [facility] [address] [place] [id number] [place] [address] May, [facility] [address] [place] [id number] [place] [address] Apr, Lumbago with sciatica, right side M54.41 and Neck pain on left side M54.2 [facility] [address] [place] [id number] [place] [address] Apr, [facility] [address] [place] [id number] [place] [address] Apr, [facility] [address] [address] March, [facility] [address] [address] March, [facility] [address] [address] Feb, Acute pain of right shoulder M25.511 [facility] [address] [place] [id number] [place] [address] Feb, [facility] [address] [place] [id number] [place] [address] Feb, [facility] [address] [address] Feb, Type 2 diabetes mellitus with complicati on E11.8 ; Neuropathy G62.9 and Acute pain of right shoulder M25.511 [facility] [address] [place] [id number] [place] [address] Dec, Type 2 diabetes mellitus with complicati on E11.8 [facility] [address] [place] [id number] [place] [address] Nov, [facility] [address] [place] [id number] [place] [address] Oct, Arthrosis of right acromioclavicular echo nt M19.011 [facility] [address] [address] Oct, Type 2 diabetes mellitus with complicati on E11.8 [place] [address] [address] Sep, Type 2 diabetes mellitus with complicati on E11.8 ; Acute pain of right shoulder M25.511 and Prostate cancer screening Z12.5 [place] [address] [address] Sep, [place] [address] [address] Jun, [place] [address] [address] Jun, Muscle tension headache G44.209 and Brux ism F45.8 [place] [address] [address] May, Type 2 diabetes mellitus with complicati on E11.8 ; Erectile dysfunction, unspecified erectile dysfunction type N52.9 and Neuropathy G62.9 [place] [address] [address] Feb, [place] [address] [address] Feb, Type 2 diabetes mellitus with complicati on E11.8 [place] [address] [address] Dec, [place] [address] [address] Dec, Type 2 diabetes mellitus with complicati on E11.8 [place] [address] [address] Nov, Nausea and vomiting, unspecified intacta bility, vomiting of unspecified type R11.2 [place] [address] [address] Oct, Neuropathy G62.9 and Type 2 diabetes kermit litus with complication E11.8 [facility] [address] [address] [id number] [place] [address] Sep, [facility] [address] [address] Sep, [facility] [address] [address] Sep, Diabetes E11.9 [facility] [address] [address] Sep, [facility] [address] [address] Jul, [facility] [address] [address] Jun, [facility] [address] [address] Jun, Secondary diabetes mellitus with neurolo gical manifestations, not stated as uncontrolled, or unspecified 249.60 ; Other chronic pain 338.29 and Puncture wound 879.8 [facility] [address] [address] May, [facility] [address] [address] Apr, [facility] [address] [address] March, [facility] [address] [address] Feb, [facility] [address] [address] Feb, [facility] [address] [address] Jan, [facility] [address] [address] Jan, [facility] [address] [address] Jan, [facility] [address] [id number] [place] [address] Jan, [facility] [address] [id number] [place] [address] Jan, [facility] [address] [id number] [place] [address] Jan, [facility] [address] [id number] [place] [address] Jan, [facility] [address] [id number] [place] [address] Jan, [facility] [address] [id number] [place] [address] Dec, [facility] [address] [id number] [place] [address] Dec, [facility] [address] [id number] [place] [address] Nov, [facility] [address] [id number] [place] [address] Nov, [facility] [address] [id number] [place] [address] Nov, [facility] [address] [id number] [place] [address] Nov, [facility] [address] [id number] [place] [address] Nov, [facility] [address] [id number] [place] [address] Nov, [facility] [address] [id number] [place] [address] Oct, [facility] [address] [id number] [place] [address] Oct, [facility] [address] [id number] [place] [address] Oct, [facility] [address] [id number] [place] [address] Oct, [facility] [address] [id number] [place] [address] Oct, [facility] [address] [id number] [place] [address] Oct, [facility] [address] [id number] [place] [address] Oct, [facility] [address] [id number] [place] [address] Oct, [facility] [address] [id number] [place] [address] Oct, [facility] [address] [id number] [place] [address] Sep, [facility] [address] [id number] [place] [address] Sep, [facility] [address] [id number] [place] [address] Sep, [facility] [address] [id number] [place] [address] Sep, [facility] [address] [id number] [place] [address] Sep, [facility] [address] [id number] [place] [address] Sep, [facility] [address] [id number] [place] [address] Sep, [facility] [address] [id number] [place] [address] Aug, [facility] [address] [id number] [place] [address] Aug, [facility] [address] [id number] [place] [address] Aug, [facility] [address] [id number] [place] [address] Aug, [facility] [address] [id number] [place] [address] 14 Aug, 2014 [facility] [address] [facility] [id number] [place] [address] 14 Aug, 2014 [facility] [address] [facility] [id number] [place] [address] 26 Jul, 2013 [facility] [address] [id number] [place] [address] 25 Jul, 2013 [facility] [address] [facility] [id number] [place] [address] 25 Jul, 2013 [facility] [address] [facility] [id number] [place] [address] 25 Jul, 2013 [facility] [address] [id number] [place] [address] 25 Jul, 2013 [facility] [address] [id number] [place] [address] 19 Jul, 2013 [facility] [address] [id number] [place] [address] 16 Jul, 2013 [facility] [address] [facility] [id number] [place] [address] 16 Jul, 2014 [facility] [address] [id number] [place] [address] 08 Jul, 2014 [facility] [address] [id number] [place] [address] 08 Jul, 2014 [facility] [address] [id number] [place] [address] Jun, [facility] [address] [facility] [id number] [place] [address] Jun, [facility] [address] [id number] [place] [address] Jun, [facility] [address] [id number] [place] [address] Jun, [facility] [address] [id number] [place] [address] Jun, [facility] [address] [id number] [place] [address] Jun, [facility] [address] [facility] [id number] [place] [address] Jun, [facility] [address] [facility] [id number] [place] [address] Jun, [facility] [address] [facility] [id number] [place] [address] May, [facility] [address] [facility] [place] [id number] [place] [address] May, [facility] [address] [facility] [place] [id number] [place] [address] May, [facility] [address] [id number] [place] [address] May, [facility] [address] [id number] [place] [address] May, [facility] [address] [id number] [place] [address] May, [facility] [address] [facility] [place] [id number] [place] [address] May, [facility] [address] [id number] [place] [address] May, [facility] [address] [id number] [place] [address] May, [facility] [place] [address] [facility] [place] [id number] [place] [address] May, [facility] [address] [facility] [place] [id number] [place] [address] May, [facility] [address] [id number] [place] [address] May, [facility] [place] [address] [facility] [place] [id number] [place] [address] May, [facility] [address] [id number] [place] [address] Apr, [facility] [address] [id number] [place] [address] Apr, [facility] [place] [address] [facility] [place] [id number] [place] [address] Apr, [facility] [place] [address] [id number] [place] [address] Apr, [facility] [place] [address] [id number] [place] [address] Apr, [facility] [place] [address] [facility] [place] [id number] [place] [address] Apr, [facility] [address] [id number] [place] [address] March, [facility] [place] [address] [id number] [place] [address] March, [facility] [place] [address] [id number] [place] [address] March, [facility] [address] [id number] [place] [address] 30 Feb, 2014 [facility] [place] [facility] [address] [id number] [place] [address] Feb, [facility] [place] [facility] [address] [id number] [place] [address] Feb, [facility] [place] [facility] [address] [id number] [place] [address] Feb, [facility] [place] [facility] [address] [id number] [place] [address] Feb, [facility] [place] [facility] [address] [id number] [place] [address] Feb, [facility] [place] [facility] [address] [id number] [place] [address] Feb, [facility] [place] [facility] [address] [id number] [place] [address] 17 Feb, 2014 [facility] [place] [facility] [address] [id number] [place] [address] 17 Feb, 2014 [facility] [place] [facility] [address] [facility] [id number] [place] [address] Feb, [facility] [place] [facility] [address] [facility] [id number] [place] [address] Feb, [facility] [place] [facility] [address] [id number] [place] [address] Jan, [facility] [place] [facility] [address] [id number] [place] [address] Jan, [facility] [place] [facility] [address] [id number] [place] [address] Jan, [facility] [place] [facility] [address] [id number] [place] [address] Jan, [facility] [place] [facility] [address] [id number] [place] [address] Jan, [facility] [place] [facility] [address] [id number] [place] [address] Jan, [facility] [place] [facility] [address] [id number] [place] [address] Dec, [facility] [place] [facility] [address] [id number] [place] [address] Dec, [facility] [place] [facility] [address] [id number] [place] [address] Dec, [facility] [place] [facility] [address] [id number] [place] [address] Dec, [facility] [place] [facility] [address] [facility] [id number] [place] [address] Nov, [facility] [place] [facility] [address] [id number] [place] [address] Nov, [facility] [place] [facility] [address] [id number] [place] [address] Nov, [facility] [place] [facility] [address] [id number] [place] [address] Nov, [facility] [place] [facility] [address] [id number] [place] [address] Nov, [facility] [place] [facility] [address] [id number] [place] [address] Nov, [facility] [place] [facility] [address] [id number] [place] [address] Oct, [facility] [place] [facility] [address] [id number] [place] [address] Oct, [facility] [place] [facility] [address] [id number] [place] [address] Oct, [facility] [place] [facility] [address] [id number] [place] [address] Oct, [facility] [place] [facility] [address] [id number] [place] [address] Oct, [facility] [place] [facility] [address] [id number] [place] [address] Oct, [facility] [place] [facility] [address] [id number] [place] [address] Sep, [facility] [place] [facility] [address] [id number] [place] [address] 29 Sep, 2013 [facility] [place] [facility] [address] [id number] [place] [address] Sep, [facility] [place] [facility] [address] [id number] [place] [address] 07 Sep, 2013 [facility] [place] [facility] [address] [id number] [place] [address] 06 Sep, 2013 [facility] [place] [facility] [address] [id number] [place] [address] 06 Sep, 2013 [facility] [place] [facility] [id number] [place] [address] 14 Aug, 2013 [facility] [place] [facility] [address] [id number] [place] [address] 14 Aug, 2013 [facility] [place] [facility] [address] [id number] [place] [address] 07 Aug, 2013 [facility] [place] [facility] [address] [facility] [id number] [place] [address] Aug, [facility] [place] [facility] [address] [facility] [id number] [place] [address] 06 Jul, 2013 [facility] [place] [facility] [address] [id number] [place] [address] Jul, [facility] [place] [facility] [address] [id number] [place] [address] Jun, [facility] [place] [facility] [address] [facility] [id number] [place] [address] Jun, [facility] [place] [facility] [address] [id number] [place] [address] May, [facility] [place] [facility] [address] [id number] [place] [address] May, [facility] [place] [facility] [address] [id number] [place] [address] May, [facility] [place] [facility] [address] [id number] [place] [address] May, [facility] [place] [facility] [address] [id number] [place] [address] May, [facility] [place] [facility] [address] [id number] [place] [address] May, [facility] [place] [facility] [address] [id number] [place] [address] Apr, [facility] [place] [facility] [address] [id number] [place] [address] Apr, [facility] [place] [facility] [address] [id number] [place] [address] Apr, [facility] [place] [facility] [address] [id number] [place] [address] Apr, [facility] [place] [facility] [address] [id number] [place] [address] March, [facility] [place] [facility] [address] [id number] [place] [address] March, [facility] [place] [facility] [address] [id number] [place] [address] March, [facility] [place] [facility] [address] [id number] [place] [address] Feb, [facility] [place] [facility] [address] [id number] [place] [address] Feb, [facility] [place] [facility] [address] [id number] [place] [address] Jan, [facility] [place] [facility] [address] [id number] [place] [address] Dec, [facility] [place] [facility] [address] [id number] [place] [address] Dec, [facility] [place] [facility] [address] [id number] [place] [address] Dec, [facility] [place] [facility] [address] [id number] [place] [address] Dec, [facility] [place] [facility] [address] [id number] [place] [address] Dec, [facility] [place] [facility] [address] [id number] [place] [address] Nov, [facility] [place] [facility] [address] [id number] [place] [address] Nov, [facility] [place] [facility] [address] [id number] [place] [address] Nov, [facility] [place] [facility] [address] [id number] [place] [address] Nov, [facility] [place] [facility] [id number] [place] [address] Nov, [facility] [place] [facility] [address] [id number] [place] [address] Oct, [facility] [place] [facility] [address] [id number] [place] [address] Oct, [facility] [place] [facility] [address] [id number] [place] [address] Oct, [facility] [place] [facility] [address] [id number] [place] [address] Oct, [facility] [place] [facility] [address] [id number] [place] [address] Sep, [facility] [place] [facility] [id number] [place] [address] Sep, [facility] [place] [facility] [address] [id number] [place] [address] Sep, [facility] [place] [facility] [id number] [place] [address] Sep, [facility] [place] [facility] [address] [id number] [place] [address] Sep, [facility] [place] [facility] [id number] [place] [address] Sep, [facility] [place] [facility] [address] [id number] [place] [address] Sep, [facility] [place] [facility] [id number] [place] [address] Sep, [facility] [place] [facility] [address] [id number] [place] [address] Sep, [facility] [place] [facility] [id number] [place] [address] Sep, [facility] [place] [facility] [address] [id number] [place] [address] Aug, [facility] [place] [facility] [address] [id number] [place] [address] Aug, [facility] [place] [facility] [address] [id number] [place] [address] Aug, [facility] [place] [facility] [address] [id number] [place] [address] Aug, [facility] [place] [facility] [address] [id number] [place] [address] 05 Aug, 2012 [facility] [place] [facility] [address] [id number] [place] [address] Aug, [facility] [place] [facility] [address] [id number] [place] [address] Jul, [facility] [place] [facility] [address] [id number] [place] [address] Jun, [facility] [place] [facility] [address] [id number] [place] [address] Apr, [facility] [place] [facility] [address] [id number] [place] [address] Apr, [facility] [place] [facility] [address] [id number] [place] [address] Apr, [facility] [place] [facility] [address] [id number] [place] [address] Apr, [facility] [place] [facility] [address] [id number] [place] [address] March, [facility] [place] [facility] [address] [id number] [place] [address] March, [facility] [place] [facility] [address] [id number] [place] [address] March, [facility] [place] [facility] [address] [id number] [place] [address] March, [facility] [place] [facility] [address] [id number] [place] [address] March, [facility] [place] [facility] [address] [id number] [place] [address] Feb, [facility] [place] [facility] [address] [id number] [place] [address] Feb, [facility] [place] [facility] [address] [id number] [place] [address] Feb, [facility] [place] [facility] [address] [id number] [place] [address] Feb, [facility] [place] [facility] [address] [id number] [place] [address] 08 Jan, 2012 [facility] [place] [facility] [address] [id number] [place] [address] 06 Jan, 2012 [facility] [place] [facility] [address] [id number] [place] [address] 05 Jan, 2012 [facility] [place] [facility] [address] [id number] [place] [address] 28 Dec, 2011 [facility] [place] [facility] [address] [id number] [place] [address] 15 Dec, 2011 [facility] [place] [facility] [address] [id number] [place] [address] 14 Dec, 2011 [facility] [place] [facility] [address] [id number] [place] [address] 08 Dec, 2011 [facility] [place] [facility] [id number] [place] [address] 08 Dec, 2011 [facility] [place] [facility] [id number] [place] [address] Nov, [facility] [place] [facility] [address] [id number] [place] [address] 30 Nov, 2011 [facility] [place] [facility] [id number] [place] [address] Nov, [facility] [place] [facility] [id number] [place] [address] Oct, [facility] [place] [facility] [address] [id number] [place] [address] 07 Oct, 2011 [facility] [place] [facility] [address] [id number] [place] [address] 07 Oct, 2011 [facility] [place] [facility] [id number] [place] [address] 04 Sep, 2011 [facility] [place] [facility] [address] [id number] [place] [address] 13 Jul, 2011 [facility] [place] [facility] [address] [id number] [place] [address] Apr, IMMUNIZATIONS No Known Immunizations SOCIAL HISTORY Never Assessed REASON FOR VISIT PLAN OF CARE VITAL SIGNS Height 70 in 2014-04-22 Weight 276.4 lbs 2014-04-22 Temperature 98.3 degrees Fahrenheit 2014-04-22 Heart Rate 84 bpm 2014-04-22 Respiratory Rate 18 2014-04-22 Blood pressure systolic 107 mmHg 2014-04-22 Blood pressure diastolic 80 mmHg 2014-04-22 MEDICATIONS Unknown Medications RESULTS No Results PROCEDURES [...]
--- OUTSIDE RECORDS SUMMARY | 2020-01-05 17:42 | XMS REPORT ---
Author Author Porfirio ESCALANTE Organization [facility] Address [address] [place] [address] Care Team Providers Care Silk Screen Etcher Name Role Phone KUN ESCALANTE Unavailable PROBLEMS Type Condition ICD9-CM Code GIQ20-EU Code Onset Dates Condition S tatus SNOMED Code Problem Hypertriglyceridemia E78.1 Active 514717718 Problem Lumbago with sciatica, right side M54.41 Active 644844632 Problem Muscle pain M79.1 Active 36803888 Problem GERD (gastroesophageal reflux disease) K21.9 Active 720250874 Problem Neuropathy G62.9 Active 826109666 Problem Diabetes E11.9 Active 598237527 Problem Type 2 diabetes mellitus with complication E11.8 Active 78112561 Problem Bipolar I disorder, moderate , current or most recent episode depressed, with anxious distress F31.32 Active 231345 06 Problem 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 Active 1641 474592186 Problem Restless leg syndrome G25.81 Active 08492910 Problem Stage II pressure ulcer of left buttock L89.322 Active [id number] ALLERGIES No Information ENCOUNTERS Encounter Location Date Diagnosis [place] [id number] [address] Dec, [facility] [address] [address] Oct, Spinal stenosis of cervical region M48.0 2 [facility] [address] [address] Oct, [facility] [address] [address] Oct, Spinal stenosis of cervical region M48.0 2 [place] [address] [address] Oct, [facility] [address] [address] Oct, Restless leg syndrome G25.81 and Bipolar I disorder, moderate, current or most recent episode depressed, with anxious distress F31.32 [place] [address] [address] Oct, [facility] [address] [address] Oct, Coronary artery disease involving lovelock coronary artery of lovelock heart without angina pectoris I25.10 ; GERD (gastroesophageal reflux disease) K21.9 and Diabetes E11.9 [place] [address] [address] Sep, [place] [address] [address] Sep, [place] [address] [address] Sep, [facility] [address] [address] Sep, Spinal stenosis of cervical region M48.0 2 [place] [address] [address] Sep, [place] [address] [address] Sep, Spinal stenosis of cervical region M48.0 2 ; Lumbago with sciatica, right side M54.41 ; Type 2 diabetes mellitus with complication E11.8 and Stage II pressure ulcer of left buttock L89.322 [place] [address] [address] Aug, Bipolar I disorder, moderate, current or most recent episode depressed, with anxious distress F31.32 and Restless leg syndrome G25.81 [facility] [address] [address] Aug, [facility] [address] [place] [address] Aug, [facility] [address] [address] Aug, [facility] [address] [address] Aug, [facility] [address] [address] Aug, [facility] [address] [address] Aug, Spinal stenosis in cervical region M48.0 2 [facility] [address] [address] Jul, Bipolar I disorder, moderate, current or most recent episode depressed, with anxious distress F31.32 [facility] [address] [address] Jul, Bipolar I disorder, moderate, current or most recent episode depressed, with anxious distress F31.32 [facility] [address] [address] 18 Jul, 2019 Type 2 diabetes mellitus with complicati on E11.8 ; Coronary artery disease involving lovelock coronary artery of lovelock heart without angina pectoris I25.10 ; Bipolar I disorder, moderate, current or most recent episode depressed, with anxious distress F31.32 ; Localized edema R60.0 ; Financial difficulties Z59.8 and Spinal stenosis in cervical region M48.02 [facility] [address] [address] 18 Jul, 2019 [facility] [address] [address] 13 Jul, 2019 [facility] [address] [address] Jul, [facility] [address] [address] 09 Jul, 2019 [facility] [address] [address] Jun, Spinal stenosis of cervical region M48.0 2 ; Fall with injury, subsequent encounter W19.XXXD ; Spinal stenosis of lumbar region with neurogenic claudication M48.062 ; Contusion of left eyebrow, subsequent encounter S00.12XD and Type 2 diabetes mellitus with complication E11.8 [facility] [address] [address] Jun, Bipolar I disorder, moderate, current or most recent episode depressed, with anxious distress F31.32 [place] [address] [address] Jun, [place] [address] [address] Jun, [place] [address] [address] Jun, [place] [address] [address] Jun, [facility] [address] [address] May, [facility] [address] [address] May, Lumbar back pain with radiculopathy affe cting right lower extremity M54.16 ; Cervicalgia M54.2 ; History of streptococcal infection Z86.19 ; Hypertriglyceridemia E78.1 ; Bipolar 1 disorder F31.9 and Does not have health insurance Z59.8 [facility] [address] [address] May, Radiculopathy of arm M54.10 [facility] [address] [address] May, [facility] [address] [facility] [id number] [address] [place] [address] May, Fever R50.9 [facility] [address] [address] May, [place] [address] [address] March, Type 2 diabetes mellitus with complicati on E11.8 [place] [address] [address] March, Patellar tendinitis, right knee M76.51 [facility] [address] [address] March, Radiculopathy of arm M54.10 [place] [address] [address] March, [place] [address] [address] March, Type 2 diabetes mellitus with complicati on E11.8 ; Hoarseness of voice R49.0 and Acute pain of right knee M25.561 [place] [address] [address] March, [place] [address] [address] March, [place] [address] [address] Feb, Bipolar 1 disorder F31.9 [place] [address] [address] Feb, Bipolar 1 disorder F31.9 [place] [address] [address] Jan, [place] [address] [address] Dec, Type 2 diabetes mellitus with complicati on E11.8 [place] [address] [address] Dec, Acute non-recurrent maxillary sinusitis J01.00 [place] [address] [address] Nov, Bipolar 1 disorder F31.9 ; Rash R21 ; Ac celsa non-recurrent maxillary sinusitis J01.00 and Type 2 diabetes mellitus with complication E11.8 [place] [address] [address] 14 Oct, 2018 Hypertriglyceridemia E78.1 [facility] [address] [address] 10 Oct, 2018 Type 2 diabetes mellitus with complicati on E11.8 and Fatigue due to excessive exertion, initial encounter T73.3XXA [facility] [address] [address] 07 Oct, 2018 [place] [address] [address] Sep, [facility] [address] [address] Sep, Radiculopathy of arm M54.10 [place] [address] [address] Sep, [facility] [address] [address] May, [facility] [address] [address] May, Radiculopathy of arm M54.10 [facility] [address] [address] May, [facility] [address] [address] May, [facility] [address] [address] May, Radiculopathy of arm M54.10 [facility] [address] [address] Apr, Radiculopathy of arm M54.10 [facility] [address] [address] March, Radiculopathy of arm M54.10 [facility] [address] [address] March, Radiculopathy of arm M54.10 [facility] [address] [address] March, Radiculopathy of arm M54.10 [facility] [address] [address] March, Type 2 diabetes mellitus with complicati on E11.8 ; Radiculopathy of arm M54.10 and Muscle pain M79.1 [place] [address] [address] Feb, Muscle pain M79.1 [place] [address] [address] Jan, Type 2 diabetes mellitus with complicati on E11.8 [facility] [address] [address] Jan, [facility] [address] [address] Dec, Muscle pain M79.1 [place] [address] [address] Nov, Muscle pain M79.1 and Acute pain of righ t shoulder M25.511 [place] [address] [address] Nov, [facility] [address] [address] Nov, [facility] [address] [address] Nov, Type 2 diabetes mellitus with complicati on E11.8 [facility] [address] [address] Nov, Impingement syndrome of left shoulder M7 5.42 and Impingement syndrome of right shoulder M75.41 [place] [address] [place] [id number] [place] [address] Oct, Type 2 diabetes mellitus with complicati on E11.8 ; Acute pain of right shoulder M25.511 ; Abscess of finger of right hand L02.511 and Umbilical hernia without obstruction and without gangrene K42.9 [place] [address] [place] [id number] [place] [address] Oct, [facility] [address] [facility] [id number] [address] [place] [address] Oct, Mucoid otitis media, unspeci fied chronicity, unspecified laterality H65.90 and Abscess of finger of right hand L02.511 [place] [address] [address] Oct, [place] [address] [address] Sep, [place] [address] [address] Aug, [place] [address] [address] 14 Jul, 2017 Sprain of right acromioclavicular ligame nt, initial encounter S43.51XA ; Impingement syndrome of left shoulder M75.42 and Impingement syndrome of right shoulder M75.41 [place] [address] [address] Jul, Type 2 diabetes mellitus with complicati on E11. 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 and Pain in left shoulder M25.512 [place] [address] [place] [address] May, [facility] [address] [address] May, [facility] [address] [address] Apr, Lumbago with sciatica, right side M54.41 and Neck pain on left side M54.2 [facility] [address] [address] Apr, [facility] [address] [address] Apr, [facility] [address] [address] March, [facility] [address] [address] March, [facility] [address] [address] Feb, Acute pain of right shoulder M25.511 [facility] [address] [address] Feb, [facility] [address] [address] Feb, [facility] [address] [address] Feb, Type 2 diabetes mellitus with complicati on E11.8 ; Neuropathy G62.9 and Acute pain of right shoulder M25.511 [facility] [address] [place] [id number] [place] [address] Dec, Type 2 diabetes mellitus with complicati on E11.8 [facility] [address] [place] [id number] [place] [address] Nov, [facility] [address] [address] Oct, Arthrosis of right acromioclavicular echo nt M19.011 [place] [address] [address] Oct, Type 2 diabetes mellitus with complicati on E11.8 [place] [address] [address] Sep, Type 2 diabetes mellitus with complicati on E11.8 ; Acute pain of right shoulder M25.511 and Prostate cancer screening Z12.5 [place] [address] [address] Sep, [place] [address] [address] Jun, [place] [address] [address] Jun, Muscle tension headache G44.209 and Brux ism F45.8 [place] [address] [address] May, Type 2 diabetes mellitus with complicati on E11.8 ; Erectile dysfunction, unspecified erectile dysfunction type N52.9 and Neuropathy G62.9 [place] [address] [address] Feb, [place] [address] [address] Feb, Type 2 diabetes mellitus with complicati on E11.8 [place] [address] [address] Dec, [place] [address] [address] Dec, Type 2 diabetes mellitus with complicati on E11.8 [place] [address] [address] Nov, Nausea and vomiting, unspecified intacta bility, vomiting of unspecified type R11.2 [place] [address] [address] Oct, Neuropathy G62.9 and Type 2 diabetes kermit litus with complication E11.8 [facility] [address] [address] Sep, [facility] [address] [address] Sep, [facility] [address] [address] Sep, Diabetes E11.9 [facility] [address] [address] Sep, [facility] [address] [address] Jul, [facility] [address] [address] Jun, [facility] [address] [address] Jun, Secondary diabetes mellitus with neurolo gical manifestations, not stated as uncontrolled, or unspecified 249.60 ; Other chronic pain 338.29 and Puncture wound 879.8 [facility] [address] [address] May, [facility] [address] [address] Apr, [facility] [address] [address] March, [facility] [address] [address] Feb, [facility] [address] [address] Feb, [facility] [address] [address] Jan, [facility] [address] [address] Jan, [facility] [address] [address] Jan, [facility] [place] [facility] [address] [id number] [place] [address] Jan, [facility] [place] [facility] [address] [id number] [place] [address] Jan, [facility] [place] [facility] [address] [id number] [place] [address] Jan, [facility] [place] [facility] [address] [id number] [place] [address] Jan, [facility] [place] [facility] [address] [id number] [place] [address] Jan, [facility] [place] [facility] [address] [id number] [place] [address] Dec, [facility] [place] [facility] [address] [id number] [place] [address] Dec, [facility] [place] [facility] [address] [id number] [place] [address] Nov, [facility] [place] [facility] [address] [id number] [place] [address] Nov, [facility] [place] [facility] [address] [id number] [place] [address] Nov, [facility] [place] [facility] [address] [id number] [place] [address] Nov, [facility] [place] [facility] [address] [id number] [place] [address] Nov, [facility] [place] [facility] [address] [id number] [place] [address] Nov, [facility] [place] [facility] [address] [id number] [place] [address] Oct, [facility] [place] [facility] [address] [id number] [place] [address] Oct, [facility] [place] [facility] [address] [id number] [place] [address] Oct, [facility] [place] [facility] [address] [id number] [place] [address] Oct, [facility] [place] [facility] [address] [id number] [place] [address] Oct, [facility] [place] [facility] [address] [id number] [place] [address] Oct, [facility] [place] [facility] [address] [id number] [place] [address] Oct, [facility] [place] [facility] [address] [id number] [place] [address] Oct, [facility] [place] [facility] [address] [id number] [place] [address] Oct, [facility] [place] [facility] [address] [id number] [place] [address] Sep, [facility] [place] [facility] [address] [id number] [place] [address] Sep, [facility] [place] [facility] [address] [id number] [place] [address] Sep, [facility] [place] [facility] [address] [id number] [place] [address] Sep, [facility] [place] [facility] [address] [id number] [place] [address] Sep, [facility] [place] [facility] [address] [id number] [place] [address] Sep, [facility] [place] [facility] [address] [id number] [place] [address] Sep, [facility] [place] [facility] [address] [id number] [place] [address] Aug, [facility] [place] [facility] [address] [id number] [place] [address] Aug, [facility] [place] [facility] [address] [id number] [place] [address] Aug, [facility] [place] [facility] [address] [id number] [place] [address] Aug, [facility] [place] [facility] [address] [id number] [place] [address] 14 Aug, 2014 [facility] [place] [facility] [address] [id number] [place] [address] 14 Aug, 2014 [facility] [place] [facility] [address] [facility] [id number] [place] [address] 26 Jul, 2013 [facility] [place] [facility] [address] [facility] [id number] [place] [address] 25 Jul, 2013 [facility] [place] [facility] [address] [facility] [id number] [place] [address] 25 Jul, 2013 [facility] [place] [facility] [address] [id number] [place] [address] 25 Jul, 2013 [facility] [place] [facility] [address] [id number] [place] [address] 25 Jul, 2013 [facility] [place] [facility] [address] [id number] [place] [address] 19 Jul, 2013 [facility] [place] [facility] [address] [id number] [place] [address] 16 Jul, 2013 [facility] [place] [facility] [address] [facility] [id number] [place] [address] 16 Jul, 2014 [facility] [place] [facility] [address] [id number] [place] [address] 08 Jul, 2014 [facility] [place] [facility] [address] [id number] [place] [address] 08 Jul, 2014 [facility] [place] [facility] [address] [id number] [place] [address] Jun, [facility] [place] [facility] [address] [id number] [place] [address] Jun, [facility] [place] [facility] [address] [id number] [place] [address] Jun, [facility] [place] [facility] [address] [id number] [place] [address] Jun, [facility] [place] [facility] [address] [id number] [place] [address] Jun, [facility] [place] [facility] [address] [id number] [place] [address] Jun, [facility] [place] [facility] [address] [facility] [id number] [facility] [address] Jun, [facility] [place] [facility] [address] [facility] [id number] [place] [address] Jun, [facility] [place] [facility] [address] [facility] [id number] [facility] [place] [address] May, [facility] [place] [facility] [address] [facility] [id number] [facility] [place] [address] May, [facility] [place] [facility] [address] [facility] [id number] [place] [address] May, [facility] [place] [facility] [address] [id number] [place] [address] May, [facility] [place] [facility] [address] [id number] [place] [address] May, [facility] [place] [facility] [address] [facility] [id number] [place] [address] May, [facility] [place] [facility] [address] [facility] [id number] [place] [address] May, [facility] [place] [facility] [address] [id number] [place] [address] May, [facility] [place] [facility] [address] [id number] [place] [address] May, [facility] [place] [facility] [address] [facility] [id number] [place] [address] May, [facility] [place] [facility] [address] [id number] [place] [address] May, [facility] [place] [facility] [address] [facility] [id number] [place] [address] May, [facility] [place] [facility] [address] [facility] [id number] [place] [address] May, [facility] [place] [facility] [address] [id number] [place] [address] Apr, [facility] [place] [facility] [address] [id number] [facility] [place] [address] Apr, [facility] [place] [facility] [address] [id number] [facility] [place] [address] Apr, [facility] [place] [facility] [address] [id number] [facility] [place] [address] Apr, [facility] [place] [facility] [address] [id number] [place] [address] Apr, [facility] [place] [facility] [address] [facility] [id number] [place] [address] Apr, [facility] [place] [facility] [address] [id number] [place] [address] March, [facility] [place] [facility] [address] [id number] [facility] [place] [address] March, [facility] [place] [facility] [address] [id number] [facility] [place] [address] March, [facility] [place] [facility] [address] [id number] [facility] [place] [address] 30 Feb, 2014 [facility] [place] [facility] [address] [id number] [facility] [place] [address] Feb, [facility] [address] [id number] [place] [address] Feb, [facility] [address] [id number] [facility] [place] [address] Feb, [facility] [address] [id number] [facility] [place] [address] Feb, [facility] [address] [id number] [place] [address] Feb, [facility] [address] [id number] [facility] [place] [address] Feb, [facility] [address] [id number] [facility] [place] [address] 17 Feb, 2014 [facility] [address] [id number] [place] [address] 17 Feb, 2014 [facility] [address] [facility] [id number] [place] [address] 15 Feb, 2014 [facility] [address] [id number] [place] [address] Feb, [facility] [address] [id number] [place] [address] Jan, [facility] [address] [id number] [place] [address] Jan, [facility] [address] [id number] [place] [address] Jan, [facility] [address] [id number] [place] [address] Jan, [facility] [address] [id number] [place] [address] Jan, [facility] [address] [id number] [place] [address] Jan, [facility] [address] [id number] [place] [address] Dec, [facility] [address] [id number] [place] [address] Dec, [facility] [address] [id number] [place] [address] Dec, [facility] [address] [id number] [place] [address] Dec, [facility] [address] [id number] [place] [address] Nov, [facility] [address] [id number] [place] [address] Nov, [facility] [address] [id number] [place] [address] Nov, [facility] [address] [id number] [place] [address] Nov, [facility] [address] [id number] [place] [address] Nov, [facility] [address] [id number] [place] [address] Nov, [facility] [address] [id number] [place] [address] Oct, [facility] [address] [id number] [place] [address] Oct, [facility] [address] [id number] [place] [address] Oct, [facility] [address] [id number] [place] [address] Oct, [facility] [address] [id number] [place] [address] Oct, [facility] [address] [id number] [place] [address] Oct, [facility] [address] [id number] [place] [address] Sep, [facility] [address] [id number] [place] [address] Sep, [facility] [address] [id number] [place] [address] Sep, [facility] [address] [id number] [place] [address] Sep, [facility] [address] [id number] [place] [address] Sep, [facility] [address] [id number] [place] [address] Sep, [facility] [address] [id number] [place] [address] Aug, [facility] [address] [id number] [place] [address] Aug, [facility] [address] [id number] [place] [address] 07 Aug, 2013 [facility] [address] [facility] [id number] [place] [address] Aug, [facility] [address] [facility] [id number] [place] [address] Jul, [facility] [address] [id number] [place] [address] Jul, [facility] [address] [id number] [place] [address] Jun, [facility] [address] [id number] [place] [address] Jun, [facility] [address] [id number] [place] [address] May, [facility] [address] [id number] [place] [address] May, [facility] [address] [id number] [place] [address] May, [facility] [address] [id number] [place] [address] May, [facility] [address] [id number] [place] [address] May, [facility] [address] [id number] [place] [address] May, [facility] [address] [id number] [place] [address] Apr, [facility] [address] [id number] [place] [address] Apr, [facility] [address] [id number] [place] [address] Apr, [facility] [address] [id number] [place] [address] Apr, [facility] [address] [id number] [place] [address] March, [facility] [address] [id number] [place] [address] March, [facility] [address] [id number] [place] [address] March, [facility] [address] [id number] [place] [address] Feb, [facility] [address] [id number] [place] [address] Feb, [facility] [address] [id number] [place] [address] Jan, [facility] [address] [id number] [place] [address] Dec, [facility] [address] [id number] [place] [address] Dec, [facility] [address] [id number] [place] [address] Dec, [facility] [address] [id number] [place] [address] Dec, [facility] [address] [id number] [place] [address] Dec, [facility] [address] [id number] [place] [address] Nov, [facility] [address] [id number] [place] [address] Nov, [facility] [address] [id number] [place] [address] Nov, [facility] [address] [id number] [place] [address] Nov, [facility] [address] [id number] [place] [address] Nov, [facility] [address] [id number] [place] [address] Oct, [facility] [address] [id number] [place] [address] Oct, [facility] [address] [id number] [place] [address] Oct, [facility] [address] [id number] [place] [address] Oct, [facility] [address] [id number] [place] [address] Sep, [facility] [address] [id number] [place] [address] Sep, [facility] [address] [id number] [place] [address] Sep, [facility] [address] [id number] [place] [address] Sep, [facility] [address] [id number] [place] [address] Sep, [facility] [id number] [place] [address] Sep, [facility] [address] [id number] [place] [address] Sep, [facility] [address] [id number] [place] [address] Sep, [facility] [address] [id number] [place] [address] Sep, [facility] [address] [id number] [place] [address] Sep, [facility] [address] [id number] [place] [address] Aug, [facility] [address] [id number] [place] [address] Aug, [facility] [address] [id number] [place] [address] Aug, [facility] [address] [id number] [place] [address] Aug, [facility] [address] [id number] [place] [address] 05 Aug, 2012 [facility] [address] [id number] [place] [address] Aug, [facility] [address] [id number] [place] [address] Jul, [facility] [address] [id number] [place] [address] Jun, [facility] [address] [id number] [place] [address] Apr, [facility] [address] [id number] [place] [address] Apr, [facility] [address] [id number] [place] [address] Apr, [facility] [address] [id number] [place] [address] Apr, [facility] [address] [id number] [place] [address] March, [facility] [address] [id number] [place] [address] March, [facility] [address] [id number] [place] [address] March, [facility] [address] [id number] [place] [address] March, [facility] [address] [id number] [place] [address] March, [facility] [address] [id number] [place] [address] Feb, [facility] [address] [id number] [place] [address] Feb, [facility] [address] [id number] [place] [address] Feb, [facility] [address] [id number] [place] [address] Feb, [facility] [address] [id number] [place] [address] 08 Jan, 2012 [facility] [address] [id number] [place] [address] 06 Jan, 2012 [facility] [address] [id number] [place] [address] 05 Jan, 2012 [facility] [address] [id number] [place] [address] 28 Dec, 2011 [facility] [address] [id number] [place] [address] 15 Dec, 2011 [facility] [address] [id number] [place] [address] 14 Dec, 2011 [facility] [address] [id number] [place] [address] 08 Dec, 2011 [facility] [id number] [place] [address] 08 Dec, 2011 [facility] [address] [id number] [place] [address] Nov, [facility] [address] [id number] [place] [address] 30 Nov, 2011 [facility] [address] [id number] [place] [address] Nov, [facility] [id number] [place] [address] Oct, [facility] [address] [id number] [place] [address] Oct, [facility] [address] [id number] [place] [address] Oct, [facility] [address] [id number] [place] [address] 04 Sep, 2011 [facility] [address] [id number] [place] [address] 13 Jul, 2011 [facility] [address] [id number] [place] [address] Apr, IMMUNIZATIONS No Known Immunizations SOCIAL HISTORY [...]
--- OUTSIDE RECORDS SUMMARY | 2020-01-05 17:42 | XMS REPORT ---
Author Author Porfirio ESCALANTE Organization [facility] Address [address] [place] [address] Care Team Providers Care [employer] Tech Name Role Phone KUN ESCALANTE Unavailable PROBLEMS Type Condition ICD9-CM Code [id number] Code Onset Dates Condition S tatus SNOMED Code Problem Hypertriglyceridemia E78.1 Active 937329810 Problem Lumbago with sciatica, right side M54.41 Active 273971895 Problem Muscle pain M79.1 Active 67368712 Problem GERD (gastroesophageal reflux disease) K21.9 Active 918960728 Problem Neuropathy G62.9 Active 240009719 Problem Diabetes E11.9 Active 515513030 Problem Type 2 diabetes mellitus with complication E11.8 Active 02837326 Problem Bipolar I disorder, moderate , current or most recent episode depressed, with anxious distress F31.32 Active 746311 06 Problem Coronary artery disease invo lving [place] coronary artery of [place] heart without angina pectoris I25.10 Active 1641 [id number] Problem Restless leg syndrome G25.81 Active 96610514 Problem Stage II pressure ulcer of left buttock L89.322 Active 368042895 ALLERGIES No Information ENCOUNTERS Encounter Location Date Diagnosis [place] [id number] [address] Dec, [facility] [address] [address] Oct, Spinal stenosis of cervical region M48.0 2 [facility] [address] [address] Oct, [facility] [address] [address] Oct, Spinal stenosis of cervical region M48.0 2 [place] [address] [address] Oct, [facility] [address] [address] Oct, Restless leg syndrome G25.81 and Bipolar I disorder, moderate, current or most recent episode depressed, with anxious distress F31.32 [place] [address] [address] Oct, [facility] [address] [address] Oct, Coronary artery disease involving [place] coronary artery of [place] heart without angina pectoris I25.10 ; GERD (gastroesophageal reflux disease) K21.9 and Diabetes E11.9 [place] [address] [address] Sep, [place] [address] [address] Sep, [place] [address] [address] Sep, [facility] [address] [address] Sep, Spinal stenosis of cervical region M48.0 2 [place] [address] [address] Sep, [place] [address] [address] Sep, Spinal stenosis of cervical region M48.0 2 ; Lumbago with sciatica, right side M54.41 ; Type 2 diabetes mellitus with complication E11.8 and Stage II pressure ulcer of left buttock L89.322 [place] [address] [address] Aug, Bipolar I disorder, moderate, current or most recent episode depressed, with anxious distress F31.32 and Restless leg syndrome G25.81 [facility] [address] [address] Aug, [facility] [address] [place] [address] Aug, [facility] [address] [address] Aug, [facility] [address] [address] Aug, [facility] [address] [address] Aug, [facility] [address] [address] Aug, Spinal stenosis in cervical region M48.0 2 [facility] [address] [address] Jul, Bipolar I disorder, moderate, current or most recent episode depressed, with anxious distress F31.32 [facility] [address] [address] Jul, Bipolar I disorder, moderate, current or most recent episode depressed, with anxious distress F31.32 [facility] [address] [address] 18 Jul, 2019 Type 2 diabetes mellitus with complicati on E11.8 ; Coronary artery disease involving [place] coronary artery of [place] heart without angina pectoris I25.10 ; Bipolar I disorder, moderate, current or most recent episode depressed, with anxious distress F31.32 ; Localized edema R60.0 ; Financial difficulties Z59.8 and Spinal stenosis in cervical region M48.02 [facility] [address] [address] 18 Jul, 2019 [facility] [address] [address] 13 Jul, 2019 [facility] [address] [address] Jul, [facility] [address] [address] 09 Jul, 2019 [facility] [address] [address] Jun, Spinal stenosis of cervical region M48.0 2 ; Fall with injury, subsequent encounter W19.XXXD ; Spinal stenosis of lumbar region with neurogenic claudication M48.062 ; Contusion of left eyebrow, subsequent encounter S00.12XD and Type 2 diabetes mellitus with complication E11.8 [facility] [address] [address] Jun, Bipolar I disorder, moderate, current or most recent episode depressed, with anxious distress F31.32 [place] [address] [address] Jun, [place] [address] [address] Jun, [place] [address] [address] Jun, [place] [address] [address] Jun, [facility] [address] [address] May, [facility] [address] [address] May, Lumbar back pain with radiculopathy affe cting right lower extremity M54.16 ; Cervicalgia M54.2 ; History of streptococcal infection Z86.19 ; Hypertriglyceridemia E78.1 ; Bipolar 1 disorder F31.9 and Does not have health insurance Z59.8 [facility] [address] [address] May, Radiculopathy of arm M54.10 [facility] [address] [address] May, [facility] [address] [facility] [id number] [address] [place] [address] May, Fever R50.9 [facility] [address] [address] May, [place] [address] [address] March, Type 2 diabetes mellitus with complicati on E11.8 [place] [address] [address] March, Patellar tendinitis, right knee M76.51 [facility] [address] [address] March, Radiculopathy of arm M54.10 [place] [address] [address] March, [place] [address] [address] March, Type 2 diabetes mellitus with complicati on E11.8 ; Hoarseness of voice R49.0 and Acute pain of right knee M25.561 [place] [address] [address] March, [place] [address] [address] March, [place] [address] [address] Feb, Bipolar 1 disorder F31.9 [place] [address] [address] Feb, Bipolar 1 disorder F31.9 [place] [address] [address] Jan, [place] [address] [address] Dec, Type 2 diabetes mellitus with complicati on E11.8 [place] [address] [address] Dec, Acute non-recurrent maxillary sinusitis J01.00 [place] [address] [address] Nov, Bipolar 1 disorder F31.9 ; Rash R21 ; Ac celsa non-recurrent maxillary sinusitis J01.00 and Type 2 diabetes mellitus with complication E11.8 [place] [address] [address] 14 Oct, 2018 Hypertriglyceridemia E78.1 [facility] [address] [address] 10 Oct, 2018 Type 2 diabetes mellitus with complicati on E11.8 and Fatigue due to excessive exertion, initial encounter T73.3XXA [facility] [address] [address] 07 Oct, 2018 [place] [address] [address] Sep, [facility] [address] [address] Sep, Radiculopathy of arm M54.10 [place] [address] [address] Sep, [facility] [address] [address] May, [facility] [address] [address] May, Radiculopathy of arm M54.10 [facility] [address] [address] May, [facility] [address] [address] May, [facility] [address] [address] May, Radiculopathy of arm M54.10 [facility] [address] [address] Apr, Radiculopathy of arm M54.10 [facility] [address] [address] March, Radiculopathy of arm M54.10 [facility] [address] [address] March, Radiculopathy of arm M54.10 [facility] [address] [address] March, Radiculopathy of arm M54.10 [facility] [address] [address] March, Type 2 diabetes mellitus with complicati on E11.8 ; Radiculopathy of arm M54.10 and Muscle pain M79.1 [place] [address] [address] Feb, Muscle pain M79.1 [place] [address] [address] Jan, Type 2 diabetes mellitus with complicati on E11.8 [facility] [address] [address] Jan, [facility] [address] [address] Dec, Muscle pain M79.1 [place] [address] [address] Nov, Muscle pain M79.1 and Acute pain of righ t shoulder M25.511 [place] [address] [address] Nov, [facility] [address] [address] Nov, [facility] [address] [address] Nov, Type 2 diabetes mellitus with complicati on E11.8 [facility] [address] [address] Nov, Impingement syndrome of left shoulder M7 5.42 and Impingement syndrome of right shoulder M75.41 [place] [address] [place] [id number] [place] [address] Oct, Type 2 diabetes mellitus with complicati on E11.8 ; Acute pain of right shoulder M25.511 ; Abscess of finger of right hand L02.511 and Umbilical hernia without obstruction and without gangrene K42.9 [place] [address] [place] [id number] [place] [address] Oct, [facility] [address] [facility] [id number] [address] [place] [address] Oct, Mucoid otitis media, unspeci fied chronicity, unspecified laterality H65.90 and Abscess of finger of right hand L02.511 [place] [address] [address] Oct, [place] [address] [address] Sep, [place] [address] [address] Aug, [place] [address] [address] 14 Jul, 2017 Sprain of right acromioclavicular ligame nt, initial encounter S43.51XA ; Impingement syndrome of left shoulder M75.42 and Impingement syndrome of right shoulder M75.41 [place] [address] [address] Jul, Type 2 diabetes mellitus with complicati on E11. 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 and Pain in left shoulder M25.512 [place] [address] [place] [address] May, [facility] [address] [address] May, [facility] [address] [address] Apr, Lumbago with sciatica, right side M54.41 and Neck pain on left side M54.2 [facility] [address] [address] Apr, [facility] [address] [address] Apr, [facility] [address] [address] March, [facility] [address] [address] March, [facility] [address] [address] Feb, Acute pain of right shoulder M25.511 [facility] [address] [address] Feb, [facility] [address] [address] Feb, [facility] [address] [address] Feb, Type 2 diabetes mellitus with complicati on E11.8 ; Neuropathy G62.9 and Acute pain of right shoulder M25.511 [facility] [address] [place] [id number] [place] [address] Dec, Type 2 diabetes mellitus with complicati on E11.8 [facility] [address] [place] [id number] [place] [address] Nov, [facility] [address] [address] Oct, Arthrosis of right acromioclavicular echo nt M19.011 [place] [address] [address] Oct, Type 2 diabetes mellitus with complicati on E11.8 [place] [address] [address] Sep, Type 2 diabetes mellitus with complicati on E11.8 ; Acute pain of right shoulder M25.511 and Prostate cancer screening Z12.5 [place] [address] [address] Sep, [place] [address] [address] Jun, [place] [address] [address] Jun, Muscle tension headache G44.209 and Brux ism F45.8 [place] [address] [address] May, Type 2 diabetes mellitus with complicati on E11.8 ; Erectile dysfunction, unspecified erectile dysfunction type N52.9 and Neuropathy G62.9 [place] [address] [address] Feb, [place] [address] [address] Feb, Type 2 diabetes mellitus with complicati on E11.8 [place] [address] [address] Dec, [place] [address] [address] Dec, Type 2 diabetes mellitus with complicati on E11.8 [place] [address] [address] Nov, Nausea and vomiting, unspecified intacta bility, vomiting of unspecified type R11.2 [place] [address] [address] Oct, Neuropathy G62.9 and Type 2 diabetes kermit litus with complication E11.8 [facility] [address] [address] Sep, [facility] [address] [address] Sep, [facility] [address] [address] Sep, Diabetes E11.9 [facility] [address] [address] Sep, [facility] [address] [address] Jul, [facility] [address] [address] Jun, [facility] [address] [address] Jun, Secondary diabetes mellitus with neurolo gical manifestations, not stated as uncontrolled, or unspecified 249.60 ; Other chronic pain 338.29 and Puncture wound 879.8 [facility] [address] [address] May, [facility] [address] [address] Apr, [facility] [address] [address] March, [facility] [address] [address] Feb, [facility] [address] [address] Feb, [facility] [address] [address] Jan, [facility] [address] [address] Jan, [facility] [address] [address] Jan, [facility] [place] [facility] [address] [id number] [place] [address] Jan, [facility] [place] [facility] [address] [id number] [place] [address] Jan, [facility] [place] [facility] [address] [id number] [place] [address] Jan, [facility] [place] [facility] [address] [id number] [place] [address] Jan, [facility] [place] [facility] [address] [id number] [place] [address] Jan, [facility] [place] [facility] [address] [id number] [place] [address] Dec, [facility] [place] [facility] [address] [id number] [place] [address] Dec, [facility] [place] [facility] [address] [id number] [place] [address] Nov, [facility] [place] [facility] [address] [id number] [place] [address] Nov, [facility] [place] [facility] [address] [id number] [place] [address] Nov, [facility] [place] [facility] [address] [id number] [place] [address] Nov, [facility] [place] [facility] [address] [id number] [place] [address] Nov, [facility] [place] [facility] [address] [id number] [place] [address] Nov, [facility] [place] [facility] [address] [id number] [place] [address] Oct, [facility] [place] [facility] [address] [id number] [place] [address] Oct, [facility] [place] [facility] [address] [id number] [place] [address] Oct, [facility] [place] [facility] [address] [id number] [place] [address] Oct, [facility] [place] [facility] [address] [id number] [place] [address] Oct, [facility] [place] [facility] [address] [id number] [place] [address] Oct, [facility] [place] [facility] [address] [id number] [place] [address] Oct, [facility] [place] [facility] [address] [id number] [place] [address] Oct, [facility] [place] [facility] [address] [id number] [place] [address] Oct, [facility] [place] [facility] [address] [id number] [place] [address] Sep, [facility] [place] [facility] [address] [id number] [place] [address] Sep, [facility] [place] [facility] [address] [id number] [place] [address] Sep, [facility] [place] [facility] [address] [id number] [place] [address] Sep, [facility] [place] [facility] [address] [id number] [place] [address] Sep, [facility] [place] [facility] [address] [id number] [place] [address] Sep, [facility] [place] [facility] [address] [id number] [place] [address] Sep, [facility] [place] [facility] [address] [id number] [place] [address] Aug, [facility] [place] [facility] [address] [id number] [place] [address] Aug, [facility] [place] [facility] [address] [id number] [place] [address] Aug, [facility] [place] [facility] [address] [id number] [place] [address] Aug, [facility] [place] [facility] [address] [id number] [place] [address] 14 Aug, 2014 [facility] [place] [facility] [address] [id number] [place] [address] 14 Aug, 2014 [facility] [place] [facility] [address] [facility] [id number] [place] [address] 26 Jul, 2013 [facility] [place] [facility] [address] [facility] [id number] [place] [address] 25 Jul, 2013 [facility] [place] [facility] [address] [facility] [id number] [place] [address] 25 Jul, 2013 [facility] [place] [facility] [address] [id number] [place] [address] 25 Jul, 2013 [facility] [place] [facility] [address] [id number] [place] [address] 25 Jul, 2013 [facility] [place] [facility] [address] [id number] [place] [address] 19 Jul, 2013 [facility] [place] [facility] [address] [id number] [place] [address] 16 Jul, 2013 [facility] [place] [facility] [address] [facility] [id number] [place] [address] 16 Jul, 2014 [facility] [place] [facility] [address] [id number] [place] [address] 08 Jul, 2014 [facility] [place] [facility] [address] [id number] [place] [address] 08 Jul, 2014 [facility] [place] [facility] [address] [id number] [place] [address] Jun, [facility] [place] [facility] [address] [id number] [place] [address] Jun, [facility] [place] [facility] [address] [id number] [place] [address] Jun, [facility] [place] [facility] [address] [id number] [place] [address] Jun, [facility] [place] [facility] [address] [id number] [place] [address] Jun, [facility] [place] [facility] [address] [id number] [place] [address] Jun, [facility] [place] [facility] [address] [facility] [id number] [place] [address] Jun, [facility] [place] [facility] [address] [facility] [id number] [place] [address] Jun, [facility] [place] [facility] [address] [facility] [id number] [place] [address] May, [facility] [place] [facility] [address] [facility] [id number] [place] [address] May, [facility] [place] [facility] [address] [facility] [id number] [place] [address] May, [facility] [place] [facility] [address] [id number] [place] [address] May, [facility] [place] [facility] [address] [id number] [place] [address] May, [facility] [place] [facility] [address] [facility] [id number] [place] [address] May, [facility] [place] [facility] [address] [facility] [id number] [place] [address] May, [facility] [place] [facility] [address] [id number] [place] [address] May, [facility] [place] [facility] [address] [id number] [place] [address] May, [facility] [place] [facility] [address] [facility] [id number] [place] [address] May, [facility] [place] [facility] [address] [id number] [place] [address] May, [facility] [place] [facility] [address] [facility] [id number] [place] [address] May, [facility] [place] [facility] [address] [facility] [id number] [place] [address] May, [facility] [place] [facility] [address] [id number] [place] [address] Apr, [facility] [place] [facility] [address] [id number] [place] [address] Apr, [facility] [place] [facility] [address] [id number] [place] [address] Apr, [facility] [place] [facility] [address] [id number] [place] [address] Apr, [facility] [place] [facility] [address] [id number] [place] [address] Apr, [facility] [place] [facility] [address] [facility] [id number] [place] [address] Apr, [facility] [place] [facility] [address] [id number] [place] [address] March, [facility] [place] [facility] [address] [id number] [place] [address] March, [facility] [place] [facility] [address] [id number] [place] [address] March, [facility] [place] [facility] [address] [id number] [place] [address] 30 Feb, 2014 [facility] [place] [facility] [address] [id number] [place] [address] Feb, [facility] [place] [facility] [address] [id number] [place] [address] Feb, [facility] [place] [facility] [address] [id number] [place] [address] Feb, [facility] [place] [facility] [address] [id number] [place] [address] Feb, [facility] [place] [facility] [address] [id number] [place] [address] Feb, [facility] [place] [facility] [address] [id number] [place] [address] Feb, [facility] [place] [facility] [address] [id number] [place] [address] 17 Feb, 2014 [facility] [place] [facility] [address] [id number] [place] [address] 17 Feb, 2014 [facility] [place] [facility] [address] [facility] [id number] [place] [address] 15 Feb, 2014 [facility] [place] [facility] [address] [id number] [place] [address] Feb, [facility] [place] [facility] [address] [id number] [place] [address] Jan, [facility] [place] [facility] [address] [id number] [place] [address] Jan, [facility] [place] [facility] [address] [id number] [place] [address] Jan, [facility] [place] [facility] [address] [id number] [place] [address] Jan, [facility] [place] [facility] [address] [id number] [place] [address] Jan, [facility] [place] [facility] [address] [id number] [place] [address] Jan, [facility] [place] [facility] [address] [id number] [place] [address] Dec, [facility] [place] [facility] [address] [id number] [place] [address] Dec, [facility] [place] [facility] [address] [id number] [place] [address] Dec, [facility] [place] [facility] [address] [id number] [place] [address] Dec, [facility] [place] [facility] [address] [id number] [place] [address] Nov, [facility] [place] [facility] [address] [id number] [place] [address] Nov, [facility] [place] [facility] [address] [id number] [place] [address] Nov, [facility] [place] [facility] [address] [id number] [place] [address] Nov, [facility] [place] [facility] [address] [id number] [place] [address] Nov, [facility] [place] [facility] [address] [id number] [place] [address] Nov, [facility] [address] [id number] [place] [address] Oct, [facility] [address] [id number] [place] [address] Oct, [facility] [address] [id number] [place] [address] Oct, [facility] [address] [id number] [place] [address] Oct, [facility] [address] [id number] [place] [address] Oct, [facility] [address] [id number] [place] [address] Oct, [facility] [address] [id number] [place] [address] Sep, [facility] [address] [id number] [place] [address] Sep, [facility] [address] [id number] [place] [address] Sep, [facility] [address] [id number] [place] [address] Sep, [facility] [address] [id number] [place] [address] Sep, [facility] [address] [id number] [place] [address] Sep, [facility] [address] [id number] [place] [address] Aug, [facility] [address] [id number] [place] [address] Aug, [facility] [address] [id number] [place] [address] 07 Aug, 2013 [facility] [address] [facility] [id number] [place] [address] Aug, [facility] [address] [facility] [id number] [place] [address] Jul, [facility] [address] [id number] [place] [address] Jul, [facility] [address] [id number] [place] [address] Jun, [facility] [address] [id number] [place] [address] Jun, [facility] [address] [id number] [place] [address] May, [facility] [address] [id number] [place] [address] May, [facility] [address] [id number] [place] [address] May, [facility] [address] [id number] [place] [address] May, [facility] [address] [id number] [place] [address] May, [facility] [address] [id number] [place] [address] May, [facility] [address] [id number] [place] [address] Apr, [facility] [address] [id number] [place] [address] Apr, [facility] [address] [id number] [place] [address] Apr, [facility] [address] [id number] [place] [address] Apr, [facility] [address] [id number] [place] [address] March, [facility] [address] [id number] [place] [address] March, [facility] [address] [id number] [place] [address] March, [facility] [address] [id number] [place] [address] Feb, [facility] [address] [id number] [place] [address] Feb, [facility] [address] [id number] [place] [address] Jan, [facility] [address] [id number] [place] [address] Dec, [facility] [address] [id number] [place] [address] Dec, [facility] [address] [id number] [place] [address] Dec, [facility] [address] [id number] [place] [address] Dec, [facility] [address] [id number] [place] [address] Dec, [facility] [address] [id number] [place] [address] Nov, [facility] [address] [id number] [place] [address] Nov, [facility] [address] [id number] [place] [address] Nov, [facility] [address] [id number] [place] [address] Nov, [facility] [address] [id number] [place] [address] Nov, [facility] [address] [id number] [place] [address] Oct, [facility] [address] [id number] [place] [address] Oct, [facility] [address] [id number] [place] [address] Oct, [facility] [address] [id number] [place] [address] Oct, [facility] [address] [id number] [place] [address] Sep, [facility] [address] [id number] [place] [address] Sep, [facility] [address] [id number] [place] [address] Sep, [facility] [address] [id number] [place] [address] Sep, [facility] [address] [id number] [place] [address] Sep, [facility] [id number] [place] [address] Sep, [facility] [address] [id number] [place] [address] Sep, [facility] [address] [id number] [place] [address] Sep, [facility] [address] [id number] [place] [address] Sep, [facility] [address] [id number] [place] [address] Sep, [facility] [address] [id number] [place] [address] Aug, [facility] [address] [id number] [place] [address] Aug, [facility] [address] [id number] [place] [address] Aug, [facility] [address] [id number] [place] [address] Aug, [facility] [address] [id number] [place] [address] 05 Aug, 2012 [facility] [address] [id number] [place] [address] Aug, [facility] [address] [id number] [place] [address] Jul, [facility] [address] [id number] [place] [address] Jun, [facility] [address] [id number] [place] [address] Apr, [facility] [address] [id number] [place] [address] Apr, [facility] [address] [id number] [place] [address] Apr, [facility] [address] [id number] [place] [address] Apr, [facility] [address] [id number] [place] [address] March, [facility] [address] [id number] [place] [address] March, [facility] [address] [id number] [place] [address] March, [facility] [address] [id number] [place] [address] March, [facility] [address] [id number] [place] [address] March, [facility] [address] [id number] [place] [address] Feb, [facility] [address] [id number] [place] [address] Feb, [facility] [address] [id number] [place] [address] Feb, [facility] [address] [id number] [place] [address] Feb, [facility] [address] [id number] [place] [address] 08 Jan, 2012 [facility] [address] [id number] [place] [address] 06 Jan, 2012 [facility] [address] [id number] [place] [address] 05 Jan, 2012 [facility] [address] [id number] [place] [address] 28 Dec, 2011 [facility] [address] [id number] [place] [address] 15 Dec, 2011 [facility] [address] [id number] [place] [address] 14 Dec, 2011 [facility] [address] [id number] [place] [address] 08 Dec, 2011 [facility] [id number] [place] [address] 08 Dec, 2011 [facility] [address] [id number] [place] [address] Nov, [facility] [address] [id number] [place] [address] 30 Nov, 2011 [facility] [address] [id number] [place] [address] Nov, [facility] [id number] [place] [address] Oct, [facility] [address] [id number] [place] [address] Oct, [facility] [address] [id number] [place] [address] Oct, [facility] [address] [id number] [place] [address] 04 Sep, 2011 [facility] [address] [id number] [place] [address] 13 Jul, 2011 [facility] [address] [id number] [place] [address] Apr, IMMUNIZATIONS No Known Immunizations SOCIAL HISTORY [...]
--- OUTSIDE RECORDS SUMMARY | 2020-01-05 17:43 | XMS REPORT ---
Author Author Porfirio ESCALANTE Organization [facility] Address [address] [place] [address] Care Team Providers Care Geologist Name Role Phone KUN ESCALANTE Unavailable PROBLEMS Type Condition ICD9-CM Code VLT90-XT Code Onset Dates Condition S tatus SNOMED Code Problem Hypertriglyceridemia E78.1 Active 233968443 Problem Lumbago with sciatica, right side M54.41 Active 038196398 Problem Muscle pain M79.1 Active 16897018 Problem GERD (gastroesophageal reflux disease) K21.9 Active 467175302 Problem Neuropathy G62.9 Active 100568153 Problem Diabetes E11.9 Active 772480081 Problem Type 2 diabetes mellitus with complication E11.8 Active 06490261 Problem Bipolar I disorder, moderate , current or most recent episode depressed, with anxious distress F31.32 Active 053928 06 Problem Coronary artery disease invo lving [place] coronary artery of [place] heart without angina pectoris I25.10 Active 1641 [id number] Problem Restless leg syndrome G25.81 Active 33379335 Problem Stage II pressure ulcer of left buttock L89.322 Active 731218814 ALLERGIES No Information ENCOUNTERS Encounter Location Date Diagnosis [place] [id number] [address] Dec, [facility] [address] [address] Oct, Spinal stenosis of cervical region M48.0 2 [facility] [address] [address] Oct, [facility] [address] [address] Oct, Spinal stenosis of cervical region M48.0 2 [place] [address] [address] Oct, [facility] [address] [address] Oct, Restless leg syndrome G25.81 and Bipolar I disorder, moderate, current or most recent episode depressed, with anxious distress F31.32 [place] [address] [address] Oct, [facility] [address] [address] Oct, Coronary artery disease involving [place] coronary artery of [place] heart without angina pectoris I25.10 ; GERD (gastroesophageal reflux disease) K21.9 and Diabetes E11.9 [place] [address] [address] Sep, [place] [address] [address] Sep, [place] [address] [address] Sep, [facility] [address] [address] Sep, Spinal stenosis of cervical region M48.0 2 [place] [address] [address] Sep, [place] [address] [address] Sep, Spinal stenosis of cervical region M48.0 2 ; Lumbago with sciatica, right side M54.41 ; Type 2 diabetes mellitus with complication E11.8 and Stage II pressure ulcer of left buttock L89.322 [place] [address] [address] Aug, Bipolar I disorder, moderate, current or most recent episode depressed, with anxious distress F31.32 and Restless leg syndrome G25.81 [facility] [address] [address] Aug, [facility] [address] [place] [address] Aug, [facility] [address] [address] Aug, [facility] [address] [address] Aug, [facility] [address] [address] Aug, [facility] [address] [address] Aug, Spinal stenosis in cervical region M48.0 2 [facility] [address] [address] Jul, Bipolar I disorder, moderate, current or most recent episode depressed, with anxious distress F31.32 [facility] [address] [address] Jul, Bipolar I disorder, moderate, current or most recent episode depressed, with anxious distress F31.32 [facility] [address] [address] 18 Jul, 2019 Type 2 diabetes mellitus with complicati on E11.8 ; Coronary artery disease involving [place] coronary artery of [place] heart without angina pectoris I25.10 ; Bipolar I disorder, moderate, current or most recent episode depressed, with anxious distress F31.32 ; Localized edema R60.0 ; Financial difficulties Z59.8 and Spinal stenosis in cervical region M48.02 [facility] [address] [address] 18 Jul, 2019 [facility] [address] [address] 13 Jul, 2019 [facility] [address] [address] Jul, [facility] [address] [address] 09 Jul, 2019 [facility] [address] [address] Jun, Spinal stenosis of cervical region M48.0 2 ; Fall with injury, subsequent encounter W19.XXXD ; Spinal stenosis of lumbar region with neurogenic claudication M48.062 ; Contusion of left eyebrow, subsequent encounter S00.12XD and Type 2 diabetes mellitus with complication E11.8 [facility] [address] [address] Jun, Bipolar I disorder, moderate, current or most recent episode depressed, with anxious distress F31.32 [place] [address] [address] Jun, [place] [address] [address] Jun, [place] [address] [address] Jun, [place] [address] [address] Jun, [facility] [address] [address] May, [facility] [address] [address] May, Lumbar back pain with radiculopathy affe cting right lower extremity M54.16 ; Cervicalgia M54.2 ; History of streptococcal infection Z86.19 ; Hypertriglyceridemia E78.1 ; Bipolar 1 disorder F31.9 and Does not have health insurance Z59.8 [facility] [address] [address] May, Radiculopathy of arm M54.10 [facility] [address] [address] May, [facility] [address] [facility] [id number] [address] [place] [address] May, Fever R50.9 [facility] [address] [address] May, [place] [address] [address] March, Type 2 diabetes mellitus with complicati on E11.8 [place] [address] [address] March, Patellar tendinitis, right knee M76.51 [facility] [address] [address] March, Radiculopathy of arm M54.10 [place] [address] [address] March, [place] [address] [address] March, Type 2 diabetes mellitus with complicati on E11.8 ; Hoarseness of voice R49.0 and Acute pain of right knee M25.561 [place] [address] [address] March, [place] [address] [address] March, [place] [address] [address] Feb, Bipolar 1 disorder F31.9 [place] [address] [address] Feb, Bipolar 1 disorder F31.9 [place] [address] [address] Jan, [place] [address] [address] Dec, Type 2 diabetes mellitus with complicati on E11.8 [place] [address] [address] Dec, Acute non-recurrent maxillary sinusitis J01.00 [place] [address] [address] Nov, Bipolar 1 disorder F31.9 ; Rash R21 ; Ac celsa non-recurrent maxillary sinusitis J01.00 and Type 2 diabetes mellitus with complication E11.8 [place] [address] [address] 14 Oct, 2018 Hypertriglyceridemia E78.1 [facility] [address] [address] 10 Oct, 2018 Type 2 diabetes mellitus with complicati on E11.8 and Fatigue due to excessive exertion, initial encounter T73.3XXA [facility] [address] [address] 07 Oct, 2018 [place] [address] [address] Sep, [facility] [address] [address] Sep, Radiculopathy of arm M54.10 [place] [address] [address] Sep, [facility] [address] [address] May, [facility] [address] [address] May, Radiculopathy of arm M54.10 [facility] [address] [address] May, [facility] [address] [address] May, [facility] [address] [address] May, Radiculopathy of arm M54.10 [facility] [address] [address] Apr, Radiculopathy of arm M54.10 [facility] [address] [address] March, Radiculopathy of arm M54.10 [facility] [address] [address] March, Radiculopathy of arm M54.10 [facility] [address] [address] March, Radiculopathy of arm M54.10 [facility] [address] [address] March, Type 2 diabetes mellitus with complicati on E11.8 ; Radiculopathy of arm M54.10 and Muscle pain M79.1 [place] [address] [address] Feb, Muscle pain M79.1 [place] [address] [address] Jan, Type 2 diabetes mellitus with complicati on E11.8 [facility] [address] [address] Jan, [facility] [address] [address] Dec, Muscle pain M79.1 [place] [address] [address] Nov, Muscle pain M79.1 and Acute pain of righ t shoulder M25.511 [place] [address] [address] Nov, [facility] [address] [address] Nov, [facility] [address] [address] Nov, Type 2 diabetes mellitus with complicati on E11.8 [facility] [address] [address] Nov, Impingement syndrome of left shoulder M7 5.42 and Impingement syndrome of right shoulder M75.41 [place] [address] [place] [id number] [place] [address] Oct, Type 2 diabetes mellitus with complicati on E11.8 ; Acute pain of right shoulder M25.511 ; Abscess of finger of right hand L02.511 and Umbilical hernia without obstruction and without gangrene K42.9 [place] [address] [place] [id number] [place] [address] Oct, [facility] [address] [facility] [id number] [address] [place] [address] Oct, Mucoid otitis media, unspeci fied chronicity, unspecified laterality H65.90 and Abscess of finger of right hand L02.511 [place] [address] [address] Oct, [place] [address] [address] Sep, [place] [address] [address] Aug, [place] [address] [address] 14 Jul, 2017 Sprain of right acromioclavicular ligame nt, initial encounter S43.51XA ; Impingement syndrome of left shoulder M75.42 and Impingement syndrome of right shoulder M75.41 [place] [address] [address] Jul, Type 2 diabetes mellitus with complicati on E11. 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 and Pain in left shoulder M25.512 [place] [address] [place] [address] May, [facility] [address] [address] May, [facility] [address] [address] Apr, Lumbago with sciatica, right side M54.41 and Neck pain on left side M54.2 [facility] [address] [address] Apr, [facility] [address] [address] Apr, [facility] [address] [address] March, [facility] [address] [address] March, [facility] [address] [address] Feb, Acute pain of right shoulder M25.511 [facility] [address] [address] Feb, [facility] [address] [address] Feb, [facility] [address] [address] Feb, Type 2 diabetes mellitus with complicati on E11.8 ; Neuropathy G62.9 and Acute pain of right shoulder M25.511 [facility] [address] [place] [id number] [place] [address] Dec, Type 2 diabetes mellitus with complicati on E11.8 [facility] [address] [place] [id number] [place] [address] Nov, [facility] [address] [address] Oct, Arthrosis of right acromioclavicular echo nt M19.011 [place] [address] [address] Oct, Type 2 diabetes mellitus with complicati on E11.8 [place] [address] [address] Sep, Type 2 diabetes mellitus with complicati on E11.8 ; Acute pain of right shoulder M25.511 and Prostate cancer screening Z12.5 [place] [address] [address] Sep, [place] [address] [address] Jun, [place] [address] [address] Jun, Muscle tension headache G44.209 and Brux ism F45.8 [place] [address] [address] May, Type 2 diabetes mellitus with complicati on E11.8 ; Erectile dysfunction, unspecified erectile dysfunction type N52.9 and Neuropathy G62.9 [place] [address] [address] Feb, [place] [address] [address] Feb, Type 2 diabetes mellitus with complicati on E11.8 [place] [address] [address] Dec, [place] [address] [address] Dec, Type 2 diabetes mellitus with complicati on E11.8 [place] [address] [address] Nov, Nausea and vomiting, unspecified intacta bility, vomiting of unspecified type R11.2 [place] [address] [address] Oct, Neuropathy G62.9 and Type 2 diabetes kermit litus with complication E11.8 [facility] [address] [address] Sep, [facility] [address] [address] Sep, [facility] [address] [address] Sep, Diabetes E11.9 [facility] [address] [address] Sep, [facility] [address] [address] Jul, [facility] [address] [address] Jun, [facility] [address] [address] Jun, Secondary diabetes mellitus with neurolo gical manifestations, not stated as uncontrolled, or unspecified 249.60 ; Other chronic pain 338.29 and Puncture wound 879.8 [facility] [address] [address] May, [facility] [address] [address] Apr, [facility] [address] [address] March, [facility] [address] [address] Feb, [facility] [address] [address] Feb, [facility] [address] [address] Jan, [facility] [address] [address] Jan, [facility] [address] [address] Jan, [facility] [place] [facility] [address] [id number] [place] [address] Jan, [facility] [place] [facility] [address] [id number] [place] [address] Jan, [facility] [place] [facility] [address] [id number] [place] [address] Jan, [facility] [place] [facility] [address] [id number] [place] [address] Jan, [facility] [place] [facility] [address] [id number] [place] [address] Jan, [facility] [place] [facility] [address] [id number] [place] [address] Dec, [facility] [place] [facility] [address] [id number] [place] [address] Dec, [facility] [place] [facility] [address] [id number] [place] [address] Nov, [facility] [place] [facility] [address] [id number] [place] [address] Nov, [facility] [place] [facility] [address] [id number] [place] [address] Nov, [facility] [place] [facility] [address] [id number] [place] [address] Nov, [facility] [place] [facility] [address] [id number] [place] [address] Nov, [facility] [place] [facility] [address] [id number] [place] [address] Nov, [facility] [place] [facility] [address] [id number] [place] [address] Oct, [facility] [place] [facility] [address] [id number] [place] [address] Oct, [facility] [place] [facility] [address] [id number] [place] [address] Oct, [facility] [place] [facility] [address] [id number] [place] [address] Oct, [facility] [place] [facility] [address] [id number] [place] [address] Oct, [facility] [place] [facility] [address] [id number] [place] [address] Oct, [facility] [place] [facility] [address] [id number] [place] [address] Oct, [facility] [place] [facility] [address] [id number] [place] [address] Oct, [facility] [place] [facility] [address] [id number] [place] [address] Oct, [facility] [place] [facility] [address] [id number] [place] [address] Sep, [facility] [place] [facility] [address] [id number] [place] [address] Sep, [facility] [place] [facility] [address] [id number] [place] [address] Sep, [facility] [place] [facility] [address] [id number] [place] [address] Sep, [facility] [place] [facility] [address] [id number] [place] [address] Sep, [facility] [place] [facility] [address] [id number] [place] [address] Sep, [facility] [place] [facility] [address] [id number] [place] [address] Sep, [facility] [place] [facility] [address] [id number] [place] [address] Aug, [facility] [place] [facility] [address] [id number] [place] [address] Aug, [facility] [place] [facility] [address] [id number] [place] [address] Aug, [facility] [place] [facility] [address] [id number] [place] [address] Aug, [facility] [place] [facility] [address] [id number] [place] [address] 14 Aug, 2014 [facility] [place] [facility] [address] [id number] [place] [address] 14 Aug, 2014 [facility] [place] [facility] [address] [facility] [id number] [place] [address] 26 Jul, 2013 [facility] [place] [facility] [address] [facility] [id number] [place] [address] 25 Jul, 2013 [facility] [place] [facility] [address] [facility] [id number] [place] [address] 25 Jul, 2013 [facility] [place] [facility] [address] [id number] [place] [address] 25 Jul, 2013 [facility] [place] [facility] [address] [id number] [place] [address] 25 Jul, 2013 [facility] [place] [facility] [address] [id number] [place] [address] 19 Jul, 2013 [facility] [place] [facility] [address] [id number] [place] [address] 16 Jul, 2013 [facility] [place] [facility] [address] [facility] [id number] [place] [address] 16 Jul, 2014 [facility] [place] [facility] [address] [id number] [place] [address] 08 Jul, 2014 [facility] [place] [facility] [address] [id number] [place] [address] 08 Jul, 2014 [facility] [place] [facility] [address] [id number] [place] [address] Jun, [facility] [place] [facility] [address] [id number] [place] [address] Jun, [facility] [place] [facility] [address] [id number] [place] [address] Jun, [facility] [place] [facility] [address] [id number] [place] [address] Jun, [facility] [place] [facility] [address] [id number] [place] [address] Jun, [facility] [place] [facility] [address] [id number] [place] [address] Jun, [facility] [place] [facility] [address] [facility] [id number] [facility] [place] [address] Jun, [facility] [place] [facility] [address] [facility] [id number] [place] [address] Jun, [facility] [place] [facility] [address] [facility] [id number] [facility] [place] [address] May, [facility] [place] [facility] [address] [facility] [id number] [facility] [place] [address] May, [facility] [place] [facility] [address] [facility] [id number] [place] [address] May, [facility] [place] [facility] [address] [id number] [place] [address] May, [facility] [place] [facility] [address] [id number] [place] [address] May, [facility] [place] [facility] [address] [facility] [id number] [place] [address] May, [facility] [place] [facility] [address] [facility] [id number] [place] [address] May, [facility] [place] [facility] [address] [id number] [place] [address] May, [facility] [place] [facility] [address] [id number] [place] [address] May, [facility] [place] [facility] [address] [facility] [id number] [place] [address] May, [facility] [place] [facility] [address] [id number] [place] [address] May, [facility] [place] [facility] [address] [facility] [id number] [place] [address] May, [facility] [place] [facility] [address] [facility] [id number] [place] [address] May, [facility] [place] [facility] [address] [id number] [place] [address] Apr, [facility] [place] [facility] [address] [id number] [facility] [place] [address] Apr, [facility] [place] [facility] [address] [id number] [facility] [place] [address] Apr, [facility] [place] [facility] [address] [id number] [facility] [place] [address] Apr, [facility] [place] [facility] [address] [id number] [place] [address] Apr, [facility] [place] [facility] [address] [facility] [id number] [place] [address] Apr, [facility] [place] [facility] [address] [id number] [place] [address] March, [facility] [place] [facility] [address] [id number] [facility] [place] [address] March, [facility] [place] [facility] [address] [id number] [facility] [place] [address] March, [facility] [place] [facility] [address] [id number] [facility] [place] [address] 30 Feb, 2014 [facility] [place] [facility] [address] [id number] [facility] [place] [address] Feb, [facility] [place] [facility] [address] [id number] [place] [address] Feb, [facility] [place] [facility] [address] [id number] [facility] [place] [address] Feb, [facility] [place] [facility] [address] [id number] [facility] [place] [address] Feb, [facility] [place] [facility] [address] [id number] [place] [address] Feb, [facility] [place] [facility] [address] [id number] [facility] [place] [address] Feb, [facility] [place] [facility] [address] [id number] [facility] [place] [address] 17 Feb, 2014 [facility] [place] [facility] [address] [id number] [place] [address] 17 Feb, 2014 [facility] [place] [facility] [address] [facility] [id number] [place] [address] 15 Feb, 2014 [facility] [place] [facility] [address] [id number] [place] [address] Feb, [facility] [place] [facility] [address] [id number] [place] [address] Jan, [facility] [place] [facility] [address] [id number] [place] [address] Jan, [facility] [place] [facility] [address] [id number] [place] [address] Jan, [facility] [place] [facility] [address] [id number] [place] [address] Jan, [facility] [place] [facility] [address] [id number] [place] [address] Jan, [facility] [place] [facility] [address] [id number] [place] [address] Jan, [facility] [place] [facility] [address] [id number] [place] [address] Dec, [facility] [place] [facility] [address] [id number] [place] [address] Dec, [facility] [place] [facility] [address] [id number] [place] [address] Dec, [facility] [place] [facility] [address] [id number] [place] [address] Dec, [facility] [place] [facility] [address] [id number] [place] [address] Nov, [facility] [place] [facility] [address] [id number] [place] [address] Nov, [facility] [place] [facility] [address] [id number] [place] [address] Nov, [facility] [place] [facility] [address] [id number] [place] [address] Nov, [facility] [facility] [address] [id number] [place] [address] Nov, [facility] [address] [id number] [place] [address] Nov, [facility] [address] [id number] [place] [address] Oct, [facility] [address] [id number] [place] [address] Oct, [facility] [address] [id number] [place] [address] Oct, [facility] [address] [id number] [place] [address] Oct, [facility] [address] [id number] [place] [address] Oct, [facility] [address] [id number] [place] [address] Oct, [facility] [address] [id number] [place] [address] Sep, [facility] [address] [id number] [place] [address] Sep, [facility] [address] [id number] [place] [address] Sep, [facility] [address] [id number] [place] [address] Sep, [facility] [address] [id number] [place] [address] Sep, [facility] [address] [id number] [place] [address] Sep, [facility] [address] [id number] [place] [address] Aug, [facility] [address] [id number] [place] [address] Aug, [facility] [address] [id number] [place] [address] 07 Aug, 2013 [facility] [address] [facility] [id number] [place] [address] Aug, [facility] [address] [facility] [id number] [place] [address] Jul, [facility] [address] [id number] [place] [address] Jul, [facility] [address] [id number] [place] [address] Jun, [facility] [address] [id number] [place] [address] Jun, [facility] [address] [id number] [place] [address] May, [facility] [address] [id number] [place] [address] May, [facility] [address] [id number] [place] [address] May, [facility] [address] [id number] [place] [address] May, [facility] [address] [id number] [place] [address] May, [facility] [address] [id number] [place] [address] May, [facility] [address] [id number] [place] [address] Apr, [facility] [address] [id number] [place] [address] Apr, [facility] [address] [id number] [place] [address] Apr, [facility] [address] [id number] [place] [address] Apr, [facility] [address] [id number] [place] [address] March, [facility] [address] [id number] [place] [address] March, [facility] [address] [id number] [place] [address] March, [facility] [address] [id number] [place] [address] Feb, [facility] [address] [id number] [place] [address] Feb, [facility] [address] [id number] [place] [address] Jan, [facility] [address] [id number] [place] [address] Dec, [facility] [address] [id number] [place] [address] Dec, [facility] [address] [id number] [place] [address] Dec, [facility] [address] [id number] [place] [address] Dec, [facility] [address] [id number] [place] [address] Dec, [facility] [address] [id number] [place] [address] Nov, [facility] [address] [id number] [place] [address] Nov, [facility] [address] [id number] [place] [address] Nov, [facility] [address] [id number] [place] [address] Nov, [facility] [address] [id number] [place] [address] Nov, [facility] [address] [id number] [place] [address] Oct, [facility] [address] [id number] [place] [address] Oct, [facility] [address] [id number] [place] [address] Oct, [facility] [address] [id number] [place] [address] Oct, [facility] [address] [id number] [place] [address] Sep, [facility] [address] [id number] [place] [address] Sep, [facility] [address] [id number] [place] [address] Sep, [facility] [address] [id number] [place] [address] Sep, [facility] [address] [id number] [place] [address] Sep, [facility] [id number] [place] [address] Sep, [facility] [address] [id number] [place] [address] Sep, [facility] [address] [id number] [place] [address] Sep, [facility] [address] [id number] [place] [address] Sep, [facility] [address] [id number] [place] [address] Sep, [facility] [address] [id number] [place] [address] Aug, [facility] [address] [id number] [place] [address] Aug, [facility] [address] [id number] [place] [address] Aug, [facility] [address] [id number] [place] [address] Aug, [facility] [address] [id number] [place] [address] 05 Aug, 2012 [facility] [address] [id number] [place] [address] Aug, [facility] [address] [id number] [place] [address] Jul, [facility] [address] [id number] [place] [address] Jun, [facility] [address] [id number] [place] [address] Apr, [facility] [address] [id number] [place] [address] Apr, [facility] [address] [id number] [place] [address] Apr, [facility] [address] [id number] [place] [address] Apr, [facility] [address] [id number] [place] [address] March, [facility] [address] [id number] [place] [address] March, [facility] [address] [id number] [place] [address] March, [facility] [address] [id number] [place] [address] March, [facility] [address] [id number] [place] [address] March, [facility] [address] [id number] [place] [address] Feb, [facility] [address] [id number] [place] [address] Feb, [facility] [address] [id number] [place] [address] Feb, [facility] [address] [id number] [place] [address] Feb, [facility] [address] [id number] [place] [address] 08 Jan, 2012 [facility] [address] [id number] [place] [address] 06 Jan, 2012 [facility] [address] [id number] [place] [address] 05 Jan, 2012 [facility] [address] [id number] [place] [address] 28 Dec, 2011 [facility] [address] [id number] [place] [address] 15 Dec, 2011 [facility] [address] [id number] [place] [address] 14 Dec, 2011 [facility] [address] [id number] [place] [address] 08 Dec, 2011 [facility] [id number] [place] [address] 08 Dec, 2011 [facility] [address] [id number] [place] [address] Nov, [facility] [address] [id number] [place] [address] 30 Nov, 2011 [facility] [address] [id number] [place] [address] Nov, [facility] [id number] [place] [address] Oct, [facility] [address] [id number] [place] [address] Oct, [facility] [address] [id number] [place] [address] Oct, [facility] [address] [id number] [place] [address] 04 Sep, 2011 [facility] [address] [id number] [place] [address] 13 Jul, 2011 [facility] [address] [id number] [place] [address] Apr, IMMUNIZATIONS No Known Immunizations SOCIAL HISTORY [...]
--- OUTSIDE RECORDS SUMMARY | 2020-01-05 17:43 | XMS REPORT ---
Author Author Porfirio ESCALANTE Organization [facility] Address [address] [place] [address] Care Team Providers Care Medical Records Manager Name Role Phone KUN ESCALANTE Unavailable PROBLEMS Type Condition ICD9-CM Code [id number] Code Onset Dates Condition S tatus SNOMED Code Problem Hypertriglyceridemia E78.1 Active 595566090 Problem Lumbago with sciatica, right side M54.41 Active 837216125 Problem Muscle pain M79.1 Active 07744764 Problem GERD (gastroesophageal reflux disease) K21.9 Active 520115351 Problem Neuropathy G62.9 Active 802608057 Problem Diabetes E11.9 Active 724835161 Problem Type 2 diabetes mellitus with complication E11.8 Active 15218194 Problem Bipolar I disorder, moderate , current or most recent episode depressed, with anxious distress F31.32 Active 157814 06 Problem Coronary artery disease invo lving comanche coronary artery of comanche heart without angina pectoris I25.10 Active 1641 418754151 Problem Restless leg syndrome G25.81 Active 81676778 Problem Stage II pressure ulcer of left buttock L89.322 Active 078109415 ALLERGIES No Information ENCOUNTERS Encounter Location Date Diagnosis [place] [id number] [address] Dec, [facility] [address] [address] Oct, Spinal stenosis of cervical region M48.0 2 [facility] [address] [address] Oct, [facility] [address] [address] Oct, Spinal stenosis of cervical region M48.0 2 [place] [address] [address] Oct, [facility] [address] [address] Oct, Restless leg syndrome G25.81 and Bipolar I disorder, moderate, current or most recent episode depressed, with anxious distress F31.32 [place] [address] [address] Oct, [facility] [address] [address] Oct, Coronary artery disease involving comanche coronary artery of comanche heart without angina pectoris I25.10 ; GERD (gastroesophageal reflux disease) K21.9 and Diabetes E11.9 [place] [address] [address] Sep, [place] [address] [address] Sep, [place] [address] [address] Sep, [facility] [address] [address] Sep, Spinal stenosis of cervical region M48.0 2 [place] [address] [address] Sep, [place] [address] [address] Sep, Spinal stenosis of cervical region M48.0 2 ; Lumbago with sciatica, right side M54.41 ; Type 2 diabetes mellitus with complication E11.8 and Stage II pressure ulcer of left buttock L89.322 [place] [address] [address] Aug, Bipolar I disorder, moderate, current or most recent episode depressed, with anxious distress F31.32 and Restless leg syndrome G25.81 [facility] [address] [address] Aug, [facility] [address] [place] [address] Aug, [facility] [address] [address] Aug, [facility] [address] [address] Aug, [facility] [address] [address] Aug, [facility] [address] [address] Aug, Spinal stenosis in cervical region M48.0 2 [facility] [address] [address] Jul, Bipolar I disorder, moderate, current or most recent episode depressed, with anxious distress F31.32 [facility] [address] [address] Jul, Bipolar I disorder, moderate, current or most recent episode depressed, with anxious distress F31.32 [facility] [address] [address] 18 Jul, 2019 Type 2 diabetes mellitus with complicati on E11.8 ; Coronary artery disease involving comanche coronary artery of comanche heart without angina pectoris I25.10 ; Bipolar I disorder, moderate, current or most recent episode depressed, with anxious distress F31.32 ; Localized edema R60.0 ; Financial difficulties Z59.8 and Spinal stenosis in cervical region M48.02 [facility] [address] [address] 18 Jul, 2019 [facility] [address] [address] 13 Jul, 2019 [facility] [address] [address] Jul, [facility] [address] [address] 09 Jul, 2019 [facility] [address] [address] Jun, Spinal stenosis of cervical region M48.0 2 ; Fall with injury, subsequent encounter W19.XXXD ; Spinal stenosis of lumbar region with neurogenic claudication M48.062 ; Contusion of left eyebrow, subsequent encounter S00.12XD and Type 2 diabetes mellitus with complication E11.8 [facility] [address] [address] Jun, Bipolar I disorder, moderate, current or most recent episode depressed, with anxious distress F31.32 [place] [address] [address] Jun, [place] [address] [address] Jun, [place] [address] [address] Jun, [place] [address] [address] Jun, [facility] [address] [address] May, [facility] [address] [address] May, Lumbar back pain with radiculopathy affe cting right lower extremity M54.16 ; Cervicalgia M54.2 ; History of streptococcal infection Z86.19 ; Hypertriglyceridemia E78.1 ; Bipolar 1 disorder F31.9 and Does not have health insurance Z59.8 [facility] [address] [address] May, Radiculopathy of arm M54.10 [facility] [address] [address] May, [facility] [address] [facility] [id number] [address] [place] [address] May, Fever R50.9 [facility] [address] [address] May, [place] [address] [address] March, Type 2 diabetes mellitus with complicati on E11.8 [place] [address] [address] March, Patellar tendinitis, right knee M76.51 [facility] [address] [address] March, Radiculopathy of arm M54.10 [place] [address] [address] March, [place] [address] [address] March, Type 2 diabetes mellitus with complicati on E11.8 ; Hoarseness of voice R49.0 and Acute pain of right knee M25.561 [place] [address] [address] March, [place] [address] [address] March, [place] [address] [address] Feb, Bipolar 1 disorder F31.9 [place] [address] [address] Feb, Bipolar 1 disorder F31.9 [place] [address] [address] Jan, [place] [address] [address] Dec, Type 2 diabetes mellitus with complicati on E11.8 [place] [address] [address] Dec, Acute non-recurrent maxillary sinusitis J01.00 [place] [address] [address] Nov, Bipolar 1 disorder F31.9 ; Rash R21 ; Ac celsa non-recurrent maxillary sinusitis J01.00 and Type 2 diabetes mellitus with complication E11.8 [place] [address] [address] 14 Oct, 2018 Hypertriglyceridemia E78.1 [facility] [address] [address] 10 Oct, 2018 Type 2 diabetes mellitus with complicati on E11.8 and Fatigue due to excessive exertion, initial encounter T73.3XXA [facility] [address] [address] 07 Oct, 2018 [place] [address] [address] Sep, [facility] [address] [address] Sep, Radiculopathy of arm M54.10 [place] [address] [address] Sep, [facility] [address] [address] May, [facility] [address] [address] May, Radiculopathy of arm M54.10 [facility] [address] [address] May, [facility] [address] [address] May, [facility] [address] [address] May, Radiculopathy of arm M54.10 [facility] [address] [address] Apr, Radiculopathy of arm M54.10 [facility] [address] [address] March, Radiculopathy of arm M54.10 [facility] [address] [address] March, Radiculopathy of arm M54.10 [facility] [address] [address] March, Radiculopathy of arm M54.10 [facility] [address] [address] March, Type 2 diabetes mellitus with complicati on E11.8 ; Radiculopathy of arm M54.10 and Muscle pain M79.1 [place] [address] [address] Feb, Muscle pain M79.1 [place] [address] [address] Jan, Type 2 diabetes mellitus with complicati on E11.8 [facility] [address] [address] Jan, [facility] [address] [address] Dec, Muscle pain M79.1 [place] [address] [address] Nov, Muscle pain M79.1 and Acute pain of righ t shoulder M25.511 [place] [address] [address] Nov, [facility] [address] [address] Nov, [facility] [address] [address] Nov, Type 2 diabetes mellitus with complicati on E11.8 [facility] [address] [address] Nov, Impingement syndrome of left shoulder M7 5.42 and Impingement syndrome of right shoulder M75.41 [place] [address] [place] [id number] [place] [address] Oct, Type 2 diabetes mellitus with complicati on E11.8 ; Acute pain of right shoulder M25.511 ; Abscess of finger of right hand L02.511 and Umbilical hernia without obstruction and without gangrene K42.9 [place] [address] [place] [id number] [place] [address] Oct, [facility] [address] [facility] [id number] [address] [place] [address] Oct, Mucoid otitis media, unspeci fied chronicity, unspecified laterality H65.90 and Abscess of finger of right hand L02.511 [place] [address] [address] Oct, [place] [address] [address] Sep, [place] [address] [address] Aug, [place] [address] [address] 14 Jul, 2017 Sprain of right acromioclavicular ligame nt, initial encounter S43.51XA ; Impingement syndrome of left shoulder M75.42 and Impingement syndrome of right shoulder M75.41 [place] [address] [address] Jul, Type 2 diabetes mellitus with complicati on E11. 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 and Pain in left shoulder M25.512 [place] [address] [place] [address] May, [facility] [address] [address] May, [facility] [address] [address] Apr, Lumbago with sciatica, right side M54.41 and Neck pain on left side M54.2 [facility] [address] [address] Apr, [facility] [address] [address] Apr, [facility] [address] [address] March, [facility] [address] [address] March, [facility] [address] [address] Feb, Acute pain of right shoulder M25.511 [facility] [address] [address] Feb, [facility] [address] [address] Feb, [facility] [address] [address] Feb, Type 2 diabetes mellitus with complicati on E11.8 ; Neuropathy G62.9 and Acute pain of right shoulder M25.511 [facility] [address] [place] [id number] [place] [address] Dec, Type 2 diabetes mellitus with complicati on E11.8 [facility] [address] [place] [id number] [place] [address] Nov, [facility] [address] [address] Oct, Arthrosis of right acromioclavicular echo nt M19.011 [place] [address] [address] Oct, Type 2 diabetes mellitus with complicati on E11.8 [place] [address] [address] Sep, Type 2 diabetes mellitus with complicati on E11.8 ; Acute pain of right shoulder M25.511 and Prostate cancer screening Z12.5 [place] [address] [address] Sep, [place] [address] [address] Jun, [place] [address] [address] Jun, Muscle tension headache G44.209 and Brux ism F45.8 [place] [address] [address] May, Type 2 diabetes mellitus with complicati on E11.8 ; Erectile dysfunction, unspecified erectile dysfunction type N52.9 and Neuropathy G62.9 [place] [address] [address] Feb, [place] [address] [address] Feb, Type 2 diabetes mellitus with complicati on E11.8 [place] [address] [address] Dec, [place] [address] [address] Dec, Type 2 diabetes mellitus with complicati on E11.8 [place] [address] [address] Nov, Nausea and vomiting, unspecified intacta bility, vomiting of unspecified type R11.2 [place] [address] [address] Oct, Neuropathy G62.9 and Type 2 diabetes kermit litus with complication E11.8 [facility] [address] [address] Sep, [facility] [address] [address] Sep, [facility] [address] [address] Sep, Diabetes E11.9 [facility] [address] [address] Sep, [facility] [address] [address] Jul, [facility] [address] [address] Jun, [facility] [address] [address] Jun, Secondary diabetes mellitus with neurolo gical manifestations, not stated as uncontrolled, or unspecified 249.60 ; Other chronic pain 338.29 and Puncture wound 879.8 [facility] [address] [address] May, [facility] [address] [address] Apr, [facility] [address] [address] March, [facility] [address] [address] Feb, [facility] [address] [address] Feb, [facility] [address] [address] Jan, [facility] [address] [address] Jan, [facility] [address] [address] Jan, [facility] [address] [id number] [place] [address] Jan, [facility] [address] [id number] [place] [address] Jan, [facility] [address] [id number] [place] [address] Jan, [facility] [address] [id number] [place] [address] Jan, [facility] [address] [id number] [place] [address] Jan, [facility] [address] [id number] [place] [address] Dec, [facility] [address] [id number] [place] [address] Dec, [facility] [address] [id number] [place] [address] Nov, [facility] [address] [id number] [place] [address] Nov, [facility] [address] [id number] [place] [address] Nov, [facility] [address] [id number] [place] [address] Nov, [facility] [address] [id number] [place] [address] Nov, [facility] [address] [id number] [place] [address] Nov, [facility] [address] [id number] [place] [address] Oct, [facility] [address] [id number] [place] [address] Oct, [facility] [address] [id number] [place] [address] Oct, [facility] [address] [id number] [place] [address] Oct, [facility] [address] [id number] [place] [address] Oct, [facility] [address] [id number] [place] [address] Oct, [facility] [address] [id number] [place] [address] Oct, [facility] [address] [id number] [place] [address] Oct, [facility] [address] [id number] [place] [address] Oct, [facility] [address] [id number] [place] [address] Sep, [facility] [address] [id number] [place] [address] Sep, [facility] [address] [id number] [place] [address] Sep, [facility] [address] [id number] [place] [address] Sep, [facility] [address] [id number] [place] [address] Sep, [facility] [address] [id number] [place] [address] Sep, [facility] [address] [id number] [place] [address] Sep, [facility] [address] [id number] [place] [address] Aug, [facility] [address] [id number] [place] [address] Aug, [facility] [address] [id number] [place] [address] Aug, [facility] [address] [id number] [place] [address] Aug, [facility] [address] [id number] [place] [address] 14 Aug, 2014 [facility] [address] [id number] [place] [address] 14 Aug, 2014 [facility] [address] [facility] [id number] [place] [address] 26 Jul, 2013 [facility] [address] [facility] [id number] [place] [address] 25 Jul, 2013 [facility] [address] [facility] [id number] [place] [address] 25 Jul, 2013 [facility] [address] [id number] [place] [address] 25 Jul, 2013 [facility] [address] [id number] [place] [address] 25 Jul, 2013 [facility] [address] [id number] [place] [address] 19 Jul, 2013 [facility] [address] [id number] [place] [address] 16 Jul, 2013 [facility] [address] [facility] [id number] [place] [address] 16 Jul, 2014 [facility] [address] [id number] [place] [address] 08 Jul, 2014 [facility] [address] [id number] [place] [address] 08 Jul, 2014 [facility] [address] [id number] [place] [address] Jun, [facility] [address] [id number] [place] [address] Jun, [facility] [address] [id number] [place] [address] Jun, [facility] [address] [id number] [place] [address] Jun, [facility] [address] [id number] [place] [address] Jun, [facility] [address] [id number] [place] [address] Jun, [facility] [address] [facility] [id number] [place] [address] Jun, [facility] [address] [facility] [id number] [place] [address] Jun, [facility] [address] [facility] [id number] [facility] [address] May, [facility] [address] [facility] [id number] [place] [place] [address] May, [facility] [address] [facility] [id number] [place] [address] May, [facility] [address] [id number] [place] [address] May, [facility] [address] [id number] [place] [address] May, [facility] [address] [facility] [id number] [place] [address] May, [facility] [address] [facility] [id number] [place] [address] May, [facility] [address] [id number] [place] [address] May, [facility] [address] [id number] [place] [address] May, [facility] [address] [facility] [id number] [place] [address] May, [facility] [address] [id number] [place] [address] May, [facility] [address] [facility] [id number] [place] [address] May, [facility] [place] [facility] [address] [facility] [id number] [place] [address] May, [facility] [place] [facility] [address] [id number] [place] [address] Apr, [facility] [place] [facility] [address] [id number] [place] [address] Apr, [facility] [place] [facility] [address] [id number] [place] [place] [address] Apr, [facility] [place] [facility] [address] [id number] [place] [place] [address] Apr, [facility] [place] [facility] [address] [id number] [place] [address] Apr, [facility] [place] [facility] [address] [facility] [id number] [place] [address] Apr, [facility] [place] [facility] [address] [id number] [place] [address] March, [facility] [place] [facility] [address] [id number] [place] [place] [address] March, [facility] [place] [facility] [address] [id number] [place] [place] [address] March, [facility] [place] [facility] [address] [id number] [place] [address] 30 Feb, 2014 [facility] [place] [facility] [address] [id number] [place] [place] [address] Feb, [facility] [place] [facility] [address] [id number] [place] [address] Feb, [facility] [place] [facility] [address] [id number] [place] [place] [address] Feb, [facility] [place] [facility] [address] [id number] [place] [place] [address] Feb, [facility] [place] [facility] [address] [id number] [place] [address] Feb, [facility] [place] [facility] [address] [id number] [place] [place] [address] Feb, [facility] [place] [facility] [address] [id number] [place] [place] [address] 17 Feb, 2014 [facility] [place] [facility] [address] [id number] [place] [address] 17 Feb, 2014 [facility] [place] [facility] [address] [facility] [id number] [place] [address] 15 Feb, 2014 [facility] [place] [facility] [address] [id number] [place] [address] Feb, [facility] [place] [facility] [address] [id number] [place] [address] Jan, [facility] [place] [facility] [address] [id number] [place] [address] Jan, [facility] [address] [id number] [place] [address] Jan, [facility] [address] [id number] [place] [address] Jan, [facility] [address] [id number] [place] [address] Jan, [facility] [address] [id number] [place] [address] Jan, [facility] [address] [id number] [place] [address] Dec, [facility] [address] [id number] [place] [address] Dec, [facility] [address] [id number] [place] [address] Dec, [facility] [address] [id number] [place] [address] Dec, [facility] [address] [id number] [place] [address] Nov, [facility] [address] [id number] [place] [address] Nov, [facility] [address] [id number] [place] [address] Nov, [facility] [address] [id number] [place] [address] Nov, [facility] [address] [id number] [place] [address] Nov, [facility] [address] [id number] [place] [address] Nov, [facility] [address] [id number] [place] [address] Oct, [facility] [address] [id number] [place] [address] Oct, [facility] [address] [id number] [place] [address] Oct, [facility] [address] [id number] [place] [address] Oct, [facility] [address] [id number] [place] [address] Oct, [facility] [address] [id number] [place] [address] Oct, [facility] [address] [id number] [place] [address] Sep, [facility] [address] [id number] [place] [address] Sep, [facility] [address] [id number] [place] [address] Sep, [facility] [address] [id number] [place] [address] Sep, [facility] [address] [id number] [place] [address] Sep, [facility] [address] [id number] [place] [address] Sep, [facility] [address] [id number] [place] [address] Aug, [facility] [address] [id number] [place] [address] Aug, [facility] [address] [id number] [place] [address] 07 Aug, 2013 [facility] [address] [facility] [id number] [place] [address] Aug, [facility] [address] [facility] [id number] [place] [address] Jul, [facility] [address] [id number] [place] [address] Jul, [facility] [address] [id number] [place] [address] Jun, [facility] [address] [id number] [place] [address] Jun, [facility] [address] [id number] [place] [address] May, [facility] [address] [id number] [place] [address] May, [facility] [address] [id number] [place] [address] May, [facility] [address] [id number] [place] [address] May, [facility] [address] [id number] [place] [address] May, [facility] [address] [id number] [place] [address] May, [facility] [address] [id number] [place] [address] Apr, [facility] [address] [id number] [place] [address] Apr, [facility] [address] [id number] [place] [address] Apr, [facility] [address] [id number] [place] [address] Apr, [facility] [address] [id number] [place] [address] March, [facility] [address] [id number] [place] [address] March, [facility] [address] [id number] [place] [address] March, [facility] [address] [id number] [place] [address] Feb, [facility] [address] [id number] [place] [address] Feb, [facility] [address] [id number] [place] [address] Jan, [facility] [address] [id number] [place] [address] Dec, [facility] [address] [id number] [place] [address] Dec, [facility] [address] [id number] [place] [address] Dec, [facility] [address] [id number] [place] [address] Dec, [facility] [address] [id number] [place] [address] Dec, [facility] [address] [id number] [place] [address] Nov, [facility] [address] [id number] [place] [address] Nov, [facility] [address] [id number] [place] [address] Nov, [facility] [address] [id number] [place] [address] Nov, [facility] [address] [id number] [place] [address] Nov, [facility] [address] [id number] [place] [address] Oct, [facility] [address] [facility] [id number] [place] [address] Oct, [facility] [address] [id number] [place] [address] Oct, [facility] [address] [id number] [place] [address] Oct, [facility] [address] [facility] [id number] [place] [address] Sep, [facility] [address] [facility] [id number] [place] [address] Sep, [facility] [address] [facility] [id number] [place] [address] Sep, [facility] [address] [facility] [id number] [place] [address] Sep, [facility] [address] [facility] [id number] [place] [address] Sep, [facility] [id number] [place] [address] Sep, [facility] [address] [id number] [place] [address] Sep, [facility] [address] [id number] [place] [address] Sep, [facility] [address] [id number] [place] [address] Sep, [facility] [address] [id number] [place] [address] Sep, [facility] [address] [id number] [place] [address] Aug, [facility] [address] [id number] [place] [address] Aug, [facility] [address] [id number] [place] [address] Aug, [facility] [address] [id number] [place] [address] Aug, [facility] [address] [id number] [place] [address] 05 Aug, 2012 [facility] [address] [id number] [place] [address] Aug, [facility] [address] [id number] [place] [address] Jul, [facility] [address] [id number] [place] [address] Jun, [facility] [address] [id number] [place] [address] Apr, [facility] [address] [id number] [place] [address] Apr, [facility] [address] [id number] [place] [address] Apr, [facility] [address] [id number] [place] [address] Apr, [facility] [address] [id number] [place] [address] March, [facility] [address] [facility] [id number] [place] [address] March, [facility] [address] [id number] [place] [address] March, [facility] [address] [id number] [place] [address] March, [facility] [address] [id number] [place] [address] March, [facility] [address] [id number] [place] [address] Feb, [facility] [address] [id number] [place] [address] Feb, [facility] [address] [facility] [id number] [place] [address] Feb, [facility] [address] [facility] [id number] [place] [address] Feb, [facility] [address] [id number] [place] [address] 08 Jan, 2012 [facility] [address] [facility] [id number] [place] [address] 06 Jan, 2012 [facility] [address] [id number] [place] [address] 05 Jan, 2012 [facility] [address] [id number] [place] [address] 28 Dec, 2011 [facility] [address] [facility] [id number] [place] [address] 15 Dec, 2011 [facility] [address] [id number] [place] [address] 14 Dec, 2011 [facility] [address] [id number] [place] [address] 08 Dec, 2011 [facility] [id number] [place] [address] 08 Dec, 2011 [facility] [address] [id number] [place] [address] Nov, [facility] [address] [facility] [id number] [place] [address] 30 Nov, 2011 [facility] [address] [id number] [place] [address] Nov, [facility] [id number] [place] [address] Oct, [facility] [address] [facility] [id number] [place] [address] Oct, [facility] [address] [id number] [place] [address] Oct, [facility] [address] [id number] [place] [address] 04 Sep, 2011 [facility] [address] [id number] [place] [address] 13 Jul, 2011 [facility] [address] [id number] [place] [address] Apr, IMMUNIZATIONS No Known Immunizations SOCIAL HISTORY [...]
--- OUTSIDE RECORDS SUMMARY | 2020-01-05 17:55 | XMS REPORT | Continuity of Care Document ---
Author Organization Unknown Address Unknown Phone Unavailable Allergies Active Description Code Type Severity Reaction Onset Reported/Identified Relationship to Patient Clinical Status Yes No Known Drug Allergies [id number] Drug Allergy Unknown N/A 04/23/2019 Medications There is no data. Problems Date Dx Coded Attending Type Code Diagnosis Diagnosed By 12/16/2010 KUN ESCALANTE APRN S 250.00 DIABETES MELLITUS WITHOUT MENTION OF COM PLICATION TYPE II OR UNSPECIFIED TYPE NOT STATED UNCONTROLLED 12/16/2010 DESHANU ESCALANTE APRNNDA S 272.4 OTHER AND UNSPECIFIED HYPERLIPIDEMIA 12/16/2010 DESHAUN ESCALANTE APRNNDA S 401.1 BENIGN ESSENTIAL HYPERTENSION 12/16/2010 DESHAUN ESCALANTE APRNNDA S 719.40 PAIN IN JOINT SITE UNSPECIFIED 12/16/2010 DESHAUN ESCALANTE APRNNDA S 250.00 DIABETES MELLITUS TYPE 2 12/16/2010 DESHAUN ESCALANTE APRNNDA S 272.4 OTHER AND UNSPECIFIED HYPERLIPIDEMIA 12/16/2010 DESHAUN ESCALANTE APRNNDA S 401.1 BENIGN ESSENTIAL HYPERTENSION 12/16/2010 DESHAUN ESCALANTE APRNNDA S 719.40 PAIN IN JOINT SITE UNSPECIFIED 12/16/2010 250.00 MADELINE BETES MELLITUS TYPE 2 12/16/2010 272.4 OTHE R AND UNSPECIFIED HYPERLIPIDEMIA 12/16/2010 401.1 FARZAD GN ESSENTIAL HYPERTENSION 12/16/2010 719.40 KEMAL N IN JOINT SITE UNSPECIFIED 12/16/2010 DESHAUN ESCALANTE APRNNDA S 250.00 DIABETES MELLITUS TYPE 2 12/16/2010 DESHAUN ESCALANTE APRNNDA S 272.4 OTHER AND UNSPECIFIED HYPERLIPIDEMIA 12/16/2010 AVA RAY KUN S 401.1 BENIGN ESSENTIAL HYPERTENSION 12/16/2010 DESHAUN ESCALANTE APRNNDA S 719.40 PAIN IN JOINT SITE UNSPECIFIED 12/16/2010 SEAN JACKSON DO 250.00 DIABETES MELLITUS TYPE 2 12/16/2010 JACKSON DO, SEAN K 272.4 OTHER AND UNSPECIFIED HYPERLIPIDEMIA 12/16/2010 JACKSON DO, SEAN K 401.1 BENIGN ESSENTIAL HYPERTENSION 12/16/2010 JACKSON DO, SEAN K 719.40 PAIN IN JOINT SITE UNSPECIFIED 12/16/2010 AVA TENANT RELATIONS COORDINATOR, KUN S 250.00 DIABETES MELLITUS TYPE 2 12/16/2010 AVA TENANT RELATIONS COORDINATOR, KUN S 272.4 OTHER AND UNSPECIFIED HYPERLIPIDEMIA 12/16/2010 AVA TENANT RELATIONS COORDINATOR, KUN S 401.1 BENIGN ESSENTIAL HYPERTENSION 12/16/2010 AVA TENANT RELATIONS COORDINATOR, KUN S 719.40 PAIN IN JOINT SITE UNSPECIFIED 12/16/2010 GISELL TENANT RELATIONS COORDINATOR ANALISA T 250.00 DIABETES MELLITUS TYPE 2 12/16/2010 GISELL TENANT RELATIONS COORDINATOR ANALISA T 27 2.4 OTHER AND UNSPECIFIED HYPERLIPIDEMIA 12/16/2010 GISELL TENANT RELATIONS COORDINATOR ANALISA T 40 1.1 BENIGN ESSENTIAL HYPERTENSION 12/16/2010 GISELL TENANT RELATIONS COORDINATOR ANALISA T 719.40 PAIN IN JOINT SITE UNSPECIFIED 12/16/2010 AVA TENANT RELATIONS COORDINATOR, KUN S 250.00 DIABETES MELLITUS TYPE 2 12/16/2010 AVA TENANT RELATIONS COORDINATOR, KUN S 272.4 OTHER AND UNSPECIFIED HYPERLIPIDEMIA 12/16/2010 AVA TENANT RELATIONS COORDINATOR, KUN S 401.1 BENIGN ESSENTIAL HYPERTENSION 12/16/2010 AVA TENANT RELATIONS COORDINATOR, KUN S 719.40 PAIN IN JOINT SITE UNSPECIFIED 12/16/2010 AVA TENANT RELATIONS COORDINATOR, KUN S 250.00 DIABETES MELLITUS WITHOUT MENTION OF COM PLICATION TYPE II OR UNSPECIFIED TYPE NOT STATED UNCONTROLLED 12/16/2010 AVA TENANT RELATIONS COORDINATOR, KUN S 272.4 OTHER AND UNSPECIFIED HYPERLIPIDEMIA 12/16/2010 AVA TENANT RELATIONS COORDINATOR, KUN S 401.1 BENIGN ESSENTIAL HYPERTENSION 12/16/2010 AVA TENANT RELATIONS COORDINATOR, KUN S 719.40 PAIN IN JOINT SITE UNSPECIFIED 12/16/2010 AVA TENANT RELATIONS COORDINATOR, KUN S 250.00 DIABETES MELLITUS TYPE 2 12/16/2010 AVA TENANT RELATIONS COORDINATOR, KUN S 272.4 OTHER AND UNSPECIFIED HYPERLIPIDEMIA 12/16/2010 AVA TENANT RELATIONS COORDINATOR, KUN S 401.1 BENIGN ESSENTIAL HYPERTENSION 12/16/2010 AVA TENANT RELATIONS COORDINATOR, KUN S 719.40 PAIN IN JOINT SITE UNSPECIFIED 12/16/2010 AVA TENANT RELATIONS COORDINATOR, KUN S 250.00 DIABETES MELLITUS TYPE 2 12/16/2010 AVA TENANT RELATIONS COORDINATOR, KUN S 272.4 OTHER AND UNSPECIFIED HYPERLIPIDEMIA 12/16/2010 AVA TENANT RELATIONS COORDINATOR, KUN S 401.1 BENIGN ESSENTIAL HYPERTENSION 12/16/2010 AVA TENANT RELATIONS COORDINATOR, KUN S 719.40 PAIN IN JOINT SITE UNSPECIFIED 01/18/2011 AVA TENANT RELATIONS COORDINATOR, KUN S 296.80 BIPOLAR DISORDER UNSPECIFIED 01/18/2011 AVA TENANT RELATIONS COORDINATOR, KUN S 296.80 BIPOLAR DISORDER UNSPECIFIED 01/18/2011 296.80 BIP OLAR DISORDER UNSPECIFIED 01/18/2011 AVA TENANT RELATIONS COORDINATOR, KNU S 296.80 BIPOLAR DISORDER UNSPECIFIED 01/18/2011 SEAN JACKSON DO K 296.80 BIPOLAR DISORDER UNSPECIFIED 01/18/2011 AVA TENANT RELATIONS COORDINATOR, KUN S 296.80 BIPOLAR DISORDER UNSPECIFIED 01/18/2011 ANALISA JAMESON APRN 296.80 BIPOLAR DISORDER UNSPECIFIED 01/18/2011 AVA TENANT RELATIONS COORDINATOR, KUN S 296.80 BIPOLAR DISORDER UNSPECIFIED 01/18/2011 AVA TENANT RELATIONS COORDINATOR, KUN S 296.80 BIPOLAR DISORDER UNSPECIFIED 01/18/2011 AVA TENANT RELATIONS COORDINATOR, KUN S 296.80 BIPOLAR DISORDER UNSPECIFIED 01/18/2011 AVA TENANT RELATIONS COORDINATOR, KUN S 296.80 BIPOLAR DISORDER UNSPECIFIED 04/23/2011 AVA TENANT RELATIONS COORDINATOR, KUN S 285.9 ANEMIA 04/23/2011 AVA TENANT RELATIONS COORDINATOR, KUN S 285.9 ANEMIA 04/23/2011 285.9 ANEMIA 04/23/2011 AVA TENANT RELATIONS COORDINATOR, KUN S 285.9 ANEMIA 04/23/2011 SEAN JACKSON DO K 285.9 ANEMIA 04/23/2011 AVA TENANT RELATIONS COORDINATOR, KUN S 285.9 ANEMIA 04/23/2011 ANALISA JAMESON APRN 28 5.9 ANEMIA 04/23/2011 AVA TENANT RELATIONS COORDINATOR, KUN S 285.9 ANEMIA 04/23/2011 AVA TENANT RELATIONS COORDINATOR, KUN S 285.9 ANEMIA 04/23/2011 AVA TENANT RELATIONS COORDINATOR, KUN S 285.9 ANEMIA 04/23/2011 AVA TENANT RELATIONS COORDINATORDESHAUNKUN S 285.9 ANEMIA 07/25/2011 AVA TENANT RELATIONS COORDINATOR, KUN S V03.82 PPV23 (PNEUMOVAX) DX 07/25/2011 AVA TENANT RELATIONS COORDINATOR, KUN S V03.82 PPV23 (PNEUMOVAX) DX 07/25/2011 V03.82 PPV 23 (PNEUMOVAX) DX 07/25/2011 AVA TENANT RELATIONS COORDINATORDESHAUNKUN S V03.82 PPV23 (PNEUMOVAX) DX 07/25/2011 JACKSON DOSEAN K V03.82 PPV23 (PNEUMOVAX) DX 07/25/2011 AVA TENANT RELATIONS COORDINATORDESHAUNKUN S V03.82 PPV23 (PNEUMOVAX) DX 07/25/2011 ANALISA JAMESON APRN V03.82 PPV23 (PNEUMOVAX) DX 07/25/2011 AVA TENANT RELATIONS COORDINATORDESHAUNKUN S V03.82 PPV23 (PNEUMOVAX) DX 07/25/2011 AVA ALONZONDESHAUNKUN S V03.82 PPV23 (PNEUMOVAX) DX 07/25/2011 AVA TENANT RELATIONS COORDINATORDESHAUNKUN S V03.82 PPV23 (PNEUMOVAX) DX 07/25/2011 AVA ALONZONDESHAUNKUN S V03.82 PPV23 (PNEUMOVAX) DX 11/07/2011 DESHAUN ESCALANTE APRNNDA S 496 CHRONIC AIRWAY OBSTRUCTION NOT ELSEWHERE CLASSIFIED 11/07/2011 DESHAUN ESCALANTE APRNNDA S 496 CHRONIC AIRWAY OBSTRUCTION NOT ELSEWHERE CLASSIFIED 11/07/2011 496 CHRONI C AIRWAY OBSTRUCTION NOT ELSEWHERE CLASSIFIED 11/07/2011 AVA ALONZON KUN S 496 CHRONIC AIRWAY OBSTRUCTION NOT ELSEWHERE CLASSIFIED 11/07/2011 MANUEL DOSENA K 496 CHRONIC AIRWAY OBSTRUCTION NOT ELSEWHERE CLASSIFIED 11/07/2011 AVA TENANT RELATIONS COORDINATORDESHAUN MachadoNDA S 496 CHRONIC AIRWAY OBSTRUCTION NOT ELSEWHERE CLASSIFIED 11/07/2011 ANALISA JAMESON APRN 49 6 CHRONIC AIRWAY OBSTRUCTION NOT ELSEWHERE CLASSIFIED 11/07/2011 AVA TENANT RELATIONS COORDINATOR KUN S 496 CHRONIC AIRWAY OBSTRUCTION NOT ELSEWHERE CLASSIFIED 11/07/2011 DESHAUN ESCALANTE APRNNDA S 496 CHRONIC AIRWAY OBSTRUCTION NOT ELSEWHERE CLASSIFIED 11/07/2011 DESHAUN ESCALANTE APRNNDA S 496 CHRONIC AIRWAY OBSTRUCTION NOT ELSEWHERE CLASSIFIED 11/07/2011 AVA RAY, KUN S 496 CHRONIC AIRWAY OBSTRUCTION NOT ELSEWHERE CLASSIFIED 12/26/2011 AVA RAY, KUN S 296.50 MO BIPOLAR I DEPRESSED UNSPECIFIED 12/26/2011 AVA RAY, KUN S 296.50 MO BIPOLAR I DEPRESSED UNSPECIFIED 12/26/2011 296.50 MO BIPOLAR I DEPRESSED UNSPECIFIED 12/26/2011 AVA RAY, KUN S 296.50 MO BIPOLAR I DEPRESSED UNSPECIFIED 12/26/2011 SEAN JACKSON DO K 296.50 MO BIPOLAR I DEPRESSED UNSPECIFIED 12/26/2011 AVA RAY, KUN S 296.50 MO BIPOLAR I DEPRESSED UNSPECIFIED 12/26/2011 ANALISA JAMESON APRN 296.50 MO BIPOLAR I DEPRESSED UNSPECIFIED 12/26/2011 AVA RAY, KUN S 296.50 MO BIPOLAR I DEPRESSED UNSPECIFIED 12/26/2011 DESHAUN ESCALANTE APRNNDA S 296.50 MO BIPOLAR I DEPRESSED UNSPECIFIED 12/26/2011 AVA RAY, KUN S 296.50 MO BIPOLAR I DEPRESSED UNSPECIFIED 12/26/2011 AVA RAY, KUN S 296.50 MO BIPOLAR I DEPRESSED UNSPECIFIED 01/15/2012 AVA RAY, KUN S 272.1 HYPERTRIGLYCERIDEMIA 01/15/2012 AVA RAY, KUN S 272.1 HYPERTRIGLYCERIDEMIA 01/15/2012 272.1 HYPERTRIGLYCERIDEMIA 01/15/2012 DESHAUN ESCALANTE APRNNDA S 272.1 HYPERTRIGLYCERIDEMIA 01/15/2012 SEAN JACKSON DO K 272.1 HYPERTRIGLYCERIDEMIA 01/15/2012 AVA RAY, KUN S 272.1 HYPERTRIGLYCERIDEMIA 01/15/2012 ANALISA JAMESON APRN 27 2.1 HYPERTRIGLYCERIDEMIA 01/15/2012 AVA RAY, KUN S 272.1 [...] JACKSON DO 300.00 AN ANXIETY UNSPEC 01/16/2012 DESHAUN ESCALANTE APRNNDA S 300.00 AN ANXIETY UNSPEC 01/16/2012 ANALISA [...] ANALISA JAMESON APRN 338.29 CHRONIC PAIN 05/22/2013 NOHELIA ESCALANTE APRNA S 338.29 CHRONIC PAIN 05/22/2013 AVA TENANT RELATIONS COORDINATOR, KUN S 338.29 CHRONIC PAIN 05/22/2013 AVA TENANT RELATIONS COORDINATOR, KUN S 338.29 CHRONIC PAIN 09/18/2013 SEAN JACKSON DO 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 UNCONTROLLED OR UNSPECIFIED 09/18/2013 AVA TENANT RELATIONS COORDINATOR, KUN S 249.60 SECONDARY DIABETES MELLITUS WITH NEUROLO GICAL MANIFESTATION NOT STATED UNCONTROLLED OR UNSPECIFIED 09/18/2013 ANALISA JAMESON APRN 249.60 SECONDARY DIABETES MELLITUS WITH NEUROLO GICAL MANIFESTATION NOT STATED UNCONTROLLED OR UNSPECIFIED 09/18/2013 AVA TENANT RELATIONS COORDINATOR, KUN S 249.60 SECONDARY DIABETES MELLITUS WITH NEUROLO GICAL MANIFESTATION NOT STATED UNCONTROLLED OR UNSPECIFIED 09/18/2013 AVA TENANT RELATIONS COORDINATOR, KUN S 249.60 SECONDARY DIABETES MELLITUS WITH NEUROLO GICAL MANIFESTATION NOT STATED UNCONTROLLED OR UNSPECIFIED 09/18/2013 AVA TENANT RELATIONS COORDINATOR, KUN S 249.60 SECONDARY DIABETES MELLITUS WITH NEUROLO GICAL MANIFESTATION NOT STATED UNCONTROLLED OR UNSPECIFIED 02/24/2014 AVA TENANT RELATIONS COORDINATOR, KUN S 302.72 ERECTILE DISORDER 02/24/2014 AVA TENANT RELATIONS COORDINATOR, KUN S 356.9 NEUROPATHY 02/24/2014 AVA ALONZON, KUN S 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 02/24/2014 AVA TENANT RELATIONS COORDINATOR, KUN S 788.43 NOCTURIA 02/24/2014 ANALISA JAMESON APRN 302.72 ERECTILE DISORDER 02/24/2014 ANALISA JAMESON APRN 35 6.9 NEUROPATHY 02/24/2014 ANALISA JAMESON APRN 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 02/24/2014 ANALISA JAMESON APRN 788.43 NOCTURIA 02/24/2014 AVA TENANT RELATIONS COORDINATOR, KUN S 302.72 ERECTILE DISORDER 02/24/2014 AVA TENANT RELATIONS COORDINATOR, KUN S 356.9 NEUROPATHY 02/24/2014 AVA TENANT RELATIONS COORDINATOR, KUN S 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 02/24/2014 AVA TENANT RELATIONS COORDINATOR, KUN S 788.43 NOCTURIA 02/24/2014 AVA TENANT RELATIONS COORDINATOR, KUN S 302.72 ERECTILE DISORDER 02/24/2014 AVA TENANT RELATIONS COORDINATOR, KUN S 356.9 NEUROPATHY 02/24/2014 AVA TENANT RELATIONS COORDINATOR, KUN S 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 02/24/2014 AVA TENANT RELATIONS COORDINATOR, KUN S 788.43 NOCTURIA 02/24/2014 AVA TENANT RELATIONS COORDINATOR, KUN S 302.72 ERECTILE DISORDER 02/24/2014 AVA TENANT RELATIONS COORDINATOR, KUN S 356.9 NEUROPATHY 02/24/2014 AVA TENANT RELATIONS COORDINATOR, KUN S 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 02/24/2014 AVA TENANT RELATIONS COORDINATOR, KUN S 788.43 NOCTURIA 04/22/2014 GISELL TENANT RELATIONS COORDINATOR, ANALISA T 60 1.9 PROSTATITIS UNSPECIFIED 04/22/2014 GISELL TENANT RELATIONS COORDINATOR, ANALISA T V76.44 PROSTATE SCREENING 04/22/2014 AVA TENANT RELATIONS COORDINATOR, KUN S 601.9 PROSTATITIS UNSPECIFIED 04/22/2014 AVA TENANT RELATIONS COORDINATOR, KUN S V76.44 PROSTATE SCREENING 04/22/2014 AVA TENANT RELATIONS COORDINATOR, KUN S 601.9 PROSTATITIS UNSPECIFIED 04/22/2014 AVA TENANT RELATIONS COORDINATOR, KUN S V76.44 PROSTATE SCREENING 04/22/2014 AVA TENANT RELATIONS COORDINATOR, KUN S 601.9 PROSTATITIS UNSPECIFIED 04/22/2014 AVA TENANT RELATIONS COORDINATOR, KUN S V76.44 PROSTATE SCREENING 04/23/2019 COBY NASCIMENTO MD Ot F31.9 BIPOLAR DISORDER, UNSPECIFIED 04/23/2019 COBY NASCIMENTO MD Ot M54.16 RADICULOPATHY, LUMBAR REGION 04/23/2019 COBY NASCIMENTO MD Ot N50.812 LEFT TESTICULAR PAIN 04/23/2019 COBY NASCIMENTO MD Ot R10.32 LEFT LOWER QUADRANT PAIN 04/25/2019 COBY NASCIMENTO MD Ot F31.9 BIPOLAR DISORDER, UNSPECIFIED 04/25/2019 COBY NASCIMENTO MD Ot M54.16 RADICULOPATHY, LUMBAR REGION 04/25/2019 COBY NASCIMENTO MD Ot N50.812 LEFT TESTICULAR PAIN 04/25/2019 COBY NASCIMENTO MD Ot R10.32 LEFT LOWER QUADRANT PAIN 06/13/2019 COBY NASCIMENTO MD Ot F31.9 BIPOLAR DISORDER, UNSPECIFIED 06/13/2019 COBY NASCIMENTO MD Ot M54.16 RADICULOPATHY, LUMBAR REGION 06/13/2019 COBY NASCIMENTO MD Ot N50.812 LEFT TESTICULAR PAIN 06/13/2019 COBY NASCIMENTO MD Ot R10.32 LEFT LOWER QUADRANT PAIN 06/23/2019 LEILANI BENNETT MD Ot E11. 9 TYPE 2 DIABETES MELLITUS WITHOUT COMPLIC 06/23/2019 LEILANI BENNETT MD Ot F31. 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 9 TYPE 2 DIABETES MELLITUS WITHOUT COMPLIC 06/26/2019 LEILANI BENNETT MD Ot F31. 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 2019 SPENCER DO MANPREET Ot A41.9 SEPSIS, UNSPECIFIED ORGANISM 2019 SPENCER DO MANPREET Ot D64.9 ANEMIA, UNSPECIFIED 2019 TJ JUSTIN MANPREET Ot E11.9 TYPE 2 DIABETES MELLITUS WITHOUT COMPLIC 2019 TJ JUSTIN MANPREET Ot E66.9 OBESITY, UNSPECIFIED 2019 TJ JUSTIN MANPREET Ot E78.5 HYPERLIPIDEMIA, UNSPECIFIED 2019 TJ JUSTIN MANPREET Ot F31.9 BIPOLAR DISORDER, UNSPECIFIED 2019 JT JUSTIN MANPREET Ot G47.33 OBSTRUCTIVE SLEEP APNEA (ADULT) (PEDIATR 2019 TJ JUSTIN MANPREET Ot I21.A1 MYOCARDIAL INFARCTION TYPE 2 2019 TJ JUSTIN MANPREET Ot I25.10 ATHSCL HEART DISEASE OF [place] CORONARY 2019 TJ JUSTIN MANPREET Ot I25.2 OLD MYOCARDIAL INFARCTION 2019 TJ JUSTIN MANPREET Ot I25.5 ISCHEMIC CARDIOMYOPATHY 2019 TJ JUSTIN MANPREET Ot I50.22 CHRONIC SYSTOLIC (CONGESTIVE) HEART FAIL 2019 TJ JUSTIN MANPREET Ot I95.9 HYPOTENSION, UNSPECIFIED 2019 TJ JUSTIN MANPREET Ot L89.15 2 PRESSURE ULCER OF SACRAL REGION, STAGE 2 2019 TJ JUSTIN MANPREET Ot M48.02 SPINAL STENOSIS, CERVICAL REGION 2019 TJ JUSTIN MANPREET Ot N30.00 ACUTE CYSTITIS WITHOUT HEMATURIA 2019 TJ JUSTIN MANPREET Ot R44.3 HALLUCINATIONS, UNSPECIFIED 2019 TJ JUSTIN MANPREET Ot R65.21 SEVERE SEPSIS WITH SEPTIC SHOCK 2019 TJ JUSTIN MANPREET Ot Z68.34 BODY MASS INDEX (BMI) 34.0-34.9, ADULT 2019 TJ JUSTIN MANPREET Ot 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 BUS 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 (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 OF 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 2019 CALDERON SPENCER DOI Ot Z79.89 1 CARE HOME (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 OF OPIATE ANALGE 2019 TJ JUSTIN MANPREET Ot Z87.11 PERSONAL HISTORY OF PEPTIC ULCER DISEASE 2019 TJ JUSTIN MANPREET Ot Z87.89 1 PERSONAL HISTORY OF NICOTINE DEPENDENCE 2019 CALDERON SPENCER DOI Ot Z95.5 PRESENCE OF CORONARY ANGIOPLASTY IMPLANT 2019 SPENCER DO, MANPREET Ot Z99.3 DEPENDENCE ON WHEELCHAIR 2019 SPNECER DO, MANPREET Ot A41.9 SEPSIS, UNSPECIFIED ORGANISM 2019 SPENCER DO, MANPREET Ot D64.9 ANEMIA, UNSPECIFIED 2019 SPENCER DO, MANPREET Ot E11.9 TYPE 2 DIABETES MELLITUS WITHOUT COMPLIC 2019 SPENCER DO, MANPREET Ot E66.9 OBESITY, UNSPECIFIED 2019 SPENCER DO MANPREET Ot E78.5 HYPERLIPIDEMIA, UNSPECIFIED 2019 SPENCER DO, MANPREET Ot F17.29 0 NICOTINE DEPENDENCE, OTHER TOBACCO PRODU 2019 SPENCER DO, MANPREET Ot F31.9 BIPOLAR DISORDER, UNSPECIFIED 2019 SPENCER DO MANPREET Ot G47.33 OBSTRUCTIVE SLEEP APNEA (ADULT) (PEDIATR 2019 SPENCER DO MANPREET Ot G83.89 OTHER SPECIFIED PARALYTIC SYNDROMES 2019 TJ JUSTIN MANPREET Ot I21.A1 MYOCARDIAL INFARCTION TYPE 2 2019 TJ JUSTIN MANPREET Ot I25.10 ATHSCL HEART DISEASE OF [place] CORONARY 2019 TJ JUSTIN, MANPREET Ot I25.2 OLD MYOCARDIAL INFARCTION 2019 TJ JUSTIN, MANPREET Ot I25.5 ISCHEMIC CARDIOMYOPATHY 2019 TJ JUSTIN MANPREET Ot I50.22 CHRONIC SYSTOLIC (CONGESTIVE) HEART FAIL 2019 TJ JUSTIN MANPREET Ot I95.9 HYPOTENSION, UNSPECIFIED 2019 TJ JUSTIN MANPREET Ot L89.15 2 PRESSURE ULCER OF SACRAL REGION, STAGE 2 2019 TJ JUSTIN MANPREET Ot M48.02 SPINAL STENOSIS, CERVICAL REGION 2019 TJ JUSTIN, MANPREET Ot N30.00 ACUTE CYSTITIS WITHOUT HEMATURIA 2019 TJ JUSTIN MANPREET Ot R44.3 HALLUCINATIONS, UNSPECIFIED 2019 TJ JUSTIN MANPREET Ot R65.21 SEVERE SEPSIS WITH SEPTIC SHOCK 2019 TJ JUSTIN MANPREET Ot Z68.34 BODY MASS INDEX (BMI) 34.0-34.9, ADULT 2019 TJ JUSTIN MANPREET Ot Z79.02 CARE HOME (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 OF 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 2019 MANPREET SPENCER DO Ot Z79.89 1 TOUR BUS DRIVER (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 OF OPIATE ANALGE 2019 MANPREET SPENCER DO Ot Z87.11 PERSONAL HISTORY OF PEPTIC ULCER DISEASE 2019 MANPREET SPENCER DO Ot Z87.89 1 PERSONAL HISTORY OF NICOTINE DEPENDENCE 2019 MANPREET SPENCER DO Ot Z95.5 PRESENCE OF CORONARY ANGIOPLASTY IMPLANT 2019 MANPREET SPENCER DO Ot Z99.3 DEPENDENCE ON WHEELCHAIR 08/22/2019 KUN ESCALANTE Ot M54.16 RADICULOPATHY, LUMBAR REGION 08/22/2019 KUN ESCALANTE Ot Z53.8 PROCEDURE AND TREATMENT NOT CARRIED OUT 08/27/2019 MANPREET SPENCER DO Ot B35.3 TINEA PEDIS 08/27/2019 MANPREET SPENCER DO Ot B96.4 PROTEUS (MIRABILIS) (MORGANII) CAUSING D 08/27/2019 MANPREET SPENCER DO Ot D64.9 ANEMIA, UNSPECIFIED 08/27/2019 CALDERON SPENCER DOI Ot E11.40 TYPE 2 DIABETES MELLITUS WITH DIABETIC N 08/27/2019 CALDERON SPENCER DOI Ot E78.5 HYPERLIPIDEMIA, UNSPECIFIED 08/27/2019 MANPREET SPENCER DO Ot F31.9 BIPOLAR DISORDER, UNSPECIFIED 08/27/2019 TJ JUSTIN MANPREET Ot G47.33 OBSTRUCTIVE SLEEP APNEA (ADULT) (PEDIATR 08/27/2019 CALDERON SPENCER DOI Ot G83.4 CAUDA EQUINA SYNDROME 08/27/2019 MANPREET SPENCER DO Ot I11.0 HYPERTENSIVE HEART DISEASE WITH HEART FA 08/27/2019 CALDERON SPENCER DOI Ot I21.A1 MYOCARDIAL INFARCTION TYPE 2 08/27/2019 MANPREET SPENCER DO Ot I25.10 ATHSCL HEART DISEASE OF [place] CORONARY 08/27/2019 MANPREET SPENCER DO Ot I25.5 ISCHEMIC CARDIOMYOPATHY 08/27/2019 MANPREET SPENCER DO Ot I50.22 CHRONIC SYSTOLIC (CONGESTIVE) HEART FAIL 08/27/2019 CALDERON SPENCER DOI Ot I87.2 VENOUS INSUFFICIENCY (CHRONIC) (PERIPHER 08/27/2019 CALDERON SPENCER DOI Ot L89.15 0 PRESSURE ULCER OF SACRAL REGION, UNSTAGE 08/27/2019 TJ JUSTIN MANPREET Ot M48.02 SPINAL STENOSIS, CERVICAL REGION 08/27/2019 TJ JUSTIN MANPREET Ot M48.06 1 SPINAL STENOSIS, LUMBAR REGION WITHOUT N 08/27/2019 TJ JUSTIN MANPREET Ot N39.0 URINARY TRACT INFECTION, SITE NOT SPECIF 08/27/2019 CALDERON SPENCER DOI Ot N39.41 URGE INCONTINENCE 08/27/2019 TJ JUSTNI MANPREET Ot N39.44 NOCTURNAL ENURESIS 08/27/2019 CALDERON SPENCER DOI Ot R53.1 WEAKNESS 08/27/2019 TJ JUSTIN MANPREET Ot Z87.89 1 PERSONAL HISTORY OF NICOTINE DEPENDENCE 08/27/2019 CALDERON SPENCER DOI Ot Z95.5 PRESENCE OF CORONARY ANGIOPLASTY IMPLANT 08/27/2019 MANPREET SPENCER DO Ot Z99.3 DEPENDENCE ON WHEELCHAIR 10/07/2019 KUN ESCALANTE Ot M54.16 RADICULOPATHY, LUMBAR REGION 10/07/2019 KUN ESCALANTE Ot Z53.8 PROCEDURE AND TREATMENT NOT CARRIED OUT 12/26/2019 LEILANI BENNETT MD Ot E11. 9 TYPE 2 DIABETES MELLITUS WITHOUT COMPLIC 12/26/2019 LEILANI BENNETT MD Ot F31. 9 BIPOLAR DISORDER, UNSPECIFIED 12/26/2019 LEILANI BENNETT MD Ot M25.512 PAIN IN LEFT SHOULDER 12/26/2019 LEILANI BENNETT MD Ot S01.81XA LACERATION W/O FOREIGN BODY OF OTH PART 12/26/2019 LEILANI BENNETT MD Ot S14.129A CENTRAL CORD SYND AT UNSP LEVEL OF CERV 12/26/2019 LEILANI BENNETT MD Ot W01.198A FALL SAME LEV FROM SLIP/TRIP W STRIKE AG 12/26/2019 LELIANI BENNETT MD Ot Z23 ENCOUNTER FOR IMMUNIZATION 12/26/2019 LEILANI BENENTT MD Ot Z79. 52 CARE HOME (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 OF SYSTEMIC STER 12/26/2019 KUN ESCALANTE Ot M54.16 RADICULOPATHY, LUMBAR REGION 12/26/2019 KUN ESCALANTE Ot Z53.8 PROCEDURE AND TREATMENT NOT CARRIED OUT 12/30/2019 MANPREET SPENCER DO Ot A41.9 SEPSIS, UNSPECIFIED ORGANISM 12/30/2019 SPENCER DO, MANPREET Ot E11.40 TYPE 2 DIABETES MELLITUS WITH DIABETIC N 12/30/2019 SPENCER DO, MANPREET Ot E78.00 PURE HYPERCHOLESTEROLEMIA, UNSPECIFIED 12/30/2019 SPENCER DO, MANPREET Ot E78.5 HYPERLIPIDEMIA, UNSPECIFIED 12/30/2019 SPENCER DO, MANPREET Ot F31.9 BIPOLAR DISORDER, UNSPECIFIED 12/30/2019 SPENCER DO, MANPREET Ot G47.30 SLEEP APNEA, UNSPECIFIED 12/30/2019 SPENCER DO, MANPREET Ot G47.33 OBSTRUCTIVE SLEEP APNEA (ADULT) (PEDIATR 12/30/2019 SPENCER DO, MANPREET Ot G89.29 OTHER CHRONIC PAIN 12/30/2019 SPENCER DO, MANPREET Ot I11.0 HYPERTENSIVE HEART DISEASE WITH HEART FA 12/30/2019 SPENCER DO, MANPREET Ot I21.4 NON-ST ELEVATION (NSTEMI) MYOCARDIAL INF 12/30/2019 SPENCER DO, MANPREET Ot I25.10 ATHSCL HEART DISEASE OF [place] CORONARY 12/30/2019 SPENCER DO, MANPREET Ot I25.5 ISCHEMIC CARDIOMYOPATHY 12/30/2019 SPENCER DO, MANPREET Ot I50.22 CHRONIC SYSTOLIC (CONGESTIVE) HEART FAIL 12/30/2019 SPENCER DO, MANPREET Ot J18.9 PNEUMONIA, UNSPECIFIED ORGANISM 12/30/2019 SPENCER DO, MANPREET Ot J44.9 CHRONIC OBSTRUCTIVE PULMONARY DISEASE, U 12/30/2019 SPENCER DO, MANPREET Ot J96.00 ACUTE RESPIRATORY FAILURE, UNSP W HYPOXI 12/30/2019 SPENCER DO, MANPREET Ot J98.11 ATELECTASIS 12/30/2019 SPENCER DO, MANPREET Ot K59.09 OTHER CONSTIPATION 12/30/2019 SPENCER DO, MANPREET Ot M19.90 UNSPECIFIED OSTEOARTHRITIS, UNSPECIFIED 12/30/2019 SPENCER DO, MANPREET Ot M54.9 DORSALGIA, UNSPECIFIED 12/30/2019 SPENCER DO, MANPREET Ot N39.0 URINARY TRACT INFECTION, SITE NOT SPECIF 12/30/2019 SPENCER DO, MANPREET Ot R65.21 SEVERE SEPSIS WITH SEPTIC SHOCK 12/30/2019 SPENCER DO, MANPREET Ot S14.12 9A CENTRAL CORD SYND AT UNSP LEVEL OF CERV 12/30/2019 SPENCER DO, MANPREET Ot 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 12/30/2019 MANPREET SPENCER DO Ot 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.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 HYPOGLYC Procedures Code [place] [address] URIN E DRUG SCREEN (IN-HOUSE) 09/17/2012 65826 A1C (IN-HOUSE) 01/01/2013 03525 ROUT INE VENIPUNCTURE 05/05/2013 93253 A1C (IN-HOUSE) 05/05/2013 89171 CMP 05/05/2013 [id number] GF R CALC (RESULT ONLY) 05/05/2013 36993 LIPI D PANEL 05/05/2013 40924 A1C (IN-HOUSE) 09/18/2013 30118 MICR O ALBUMIN-IN HOUSE 09/18/2013 30754 ROUT INE VENIPUNCTURE 02/24/2014 43578 A1C (IN-HOUSE) 02/24/2014 95325 CBC 02/24/2014 95773 CMP 02/24/2014 [id number] GF R CALC (RESULT ONLY) 02/24/2014 96253 LIPI D PANEL 02/24/2014 33643 PSA TOTAL 02/24/2014 00239 TSH 02/24/2014 AMERITOX A MERITOX DRUG SCREEN 02/26/2014 64072 ROUT INE VENIPUNCTURE 06/19/2014 35718 A1C (IN-HOUSE) 06/19/2014 75091 LIPI D PANEL 06/19/2014 36883 MICR O ALBUMIN-IN HOUSE 06/23/2014 43339 MICR OALBUMIN 06/23/2014 40418 ROUT INE VENIPUNCTURE 10/12/2014 20046 A1C (IN-HOUSE) 10/12/2014 99583 LIPI D PANEL 10/12/2014 AMERITOX A MERITOX DRUG SCREEN 10/19/2014 AMERITOX A MERITOX DRUG SCREEN 02/17/2015 94604 A1C (IN-HOUSE) 02/17/2015 12036 MICR O ALBUMIN-IN HOUSE 02/17/2015 [id number] IN SERTION OF INFUSION DEV INTO SUP VENA 08/17/2019 Results Test Result Range CULTURE, ANAEROBIC AND AEROBIC - 7 11:28 CULTURE, ANAEROBIC BACTERIA W/GRAM STAIN SEE NOTE NRG CULTURE, AEROBIC BACTERIA SEE NOTE NRG A1C - 10/21/18 10:33 HEMOGLOBIN A1c 6.3 % of total Hgb <5.7 Complete blood count (CBC) with automate d white blood cell (WBC) differential - 04/23/19 12:00 Blood leukocytes automated count (number/volume) 9.1 10*3/uL 4.3-11.0 Blood erythrocytes automated count (number/volume) 5.10 10*6/uL 4.35-5.85 Venous blood hemoglobin measurement (mass/volume) 15.0 g/dL 13.3-17.7 Blood hematocrit (volume fraction) 45 % 40-54 Automated erythrocyte mean corpuscular volume 87 [ foz_us] 80-99 Automated erythrocyte mean corpuscular h emoglobin (mass per erythrocyte) 29 pg 25-34 Automated erythrocyte mean corpuscular h emoglobin concentration measurement (mass/volume) 34 g/dL 32-36 Automated erythrocyte distribution width ratio 13. 5 % 10.0- 14.5 Automated blood platelet count (count/volume) 176 10*3/uL 130-400 Automated blood platelet mean volume measurement 9.0 [foz_us] 7.4-10.4 Automated blood neutrophils/100 leukocytes 65 % 42-75 Automated blood lymphocytes/100 leukocytes 20 % 12-44 Blood monocytes/100 leukocytes 10 % 0-12 Automated blood eosinophils/100 leukocytes 4 % 0-10 Automated blood basophils/100 leukocytes 0 % 0-10 Blood neutrophils automated count (number/volume) 5.9 10*3 1.8-7.8 Blood lymphocytes automated count (number/volume) 1.8 10*3 1.0-4.0 Blood monocytes automated count (number/volume) 0. 9 10*3 0.0-1.0 Automated eosinophil count 0.4 10*3/uL 0 .0-0.3 Automated blood basophil count (count/volume) 0.0 10*3/uL 0.0-0.1 Comprehensive metabolic panel - 04/23/19 12:00 Serum or plasma sodium measurement (moles/volume) 137 mmol/L 135-145 Serum or plasma potassium measurement (moles/volume) 4.6 mmol/L 3.6-5.0 Serum or plasma chloride measurement (moles/volume) 95 mmol/L 98-107 Carbon dioxide 28 mmol/L 21-32 Serum or plasma anion gap determination (moles/volume) 14 mmol/L 5-14 Serum or plasma urea nitrogen measurement (mass/volume ) 7 mg/dL 7-18 Serum or plasma creatinine measurement (mass/volume) 0.85 mg/dL 0.60-1.30 Serum or plasma urea nitrogen/creatinine mass ratio 8 NRG Serum or plasma creatinine measurement w ith calculation of estimated glomerular filtration rate > NRG Serum or plasma glucose measurement (mass/volume) 102 mg/dL 70-105 Serum or plasma calcium measurement (mass/volume) 9.2 mg/dL 8.5-10.1 Serum or plasma total bilirubin measurement (mass/volu me) 0.5 mg/dL 0.1-1.0 Serum or plasma alkaline phosphatase mark surement (enzymatic activity/volume) 78 U/L 40-136 Serum or plasma aspartate aminotransfera se measurement (enzymatic activity/volume) 16 U/L 5-34 Serum or plasma alanine aminotransferase measurement (enzymatic activity/volume) 17 U/L 0-55 Serum or plasma protein measurement (mass/volume) 7.2 g/dL 6.4-8.2 Serum or plasma albumin measurement (mass/volume) 4.6 g/dL 3.2-4.5 Complete urinalysis with reflex to cultu re - 04/23/19 12:50 Urine color determination YELLOW NRG Urine clarity determination CLEAR NR G Urine pH measurement by test strip 8.0 5-9 Specific gravity of urine by test strip 1.010 1.016-1.022 Urine protein assay by test strip, semi-quantitative 1+ NEGATIVE Urine glucose detection by automated test strip 2+ NEGATIVE Erythrocytes detection in urine sediment by light micr oscopy NEGATIVE NEGATIVE Urine ketones detection by automated test strip NE GATIVE NEGATIVE Urine nitrite detection by test strip NEGATIVE NEGATIVE Urine total bilirubin detection by test strip NEGA TIVE NEGATIVE Urine urobilinogen measurement by automated test strip (mass/volume) 0.2 mg/dL NORMAL Urine leukocyte esterase detection by dipstick NEG ATIVE NEGATIVE Automated urine sediment erythrocyte cou nt by microscopy (number/high power field) NONE NRG Automated urine sediment leukocyte count by microscopy (number/high power field) [HPF] NRG Bacteria detection in urine sediment by light microsco py NEGATIVE NRG Squamous epithelial cells detection in u rine sediment by light microscopy 0-2 NRG Crystals detection in urine sediment by light microsco py NONE NRG Casts detection in urine sediment by light microscopy NONE NRG Mucus detection in urine sediment by light microscopy NONE NRG Complete urinalysis with reflex to culture NO NRG Capillary blood glucose measurement by g lucometer (mass/volume) - 04/23/19 14:28 Capillary blood glucose measurement by glucometer (mas s/volume) 95 mg/dL 70-110 ASO - 05/21/19 09:44 ANTI-STREPTOLYSIN O 249 IU/mL <200 SEEMA - 05/21/19 09:44 SEEMA SCREEN, IFA NEGATIVE NEGATIVE [place] DISEASE, ANTIBODY PANEL - 08/30 09:44 LYME AB SCREEN <0.90 index NRG INTERPRETATION NRG A. PHAGOCYTOPHILUM AB (IGG) <1:64 NR G A. PHAGOCYTOPHILUM AB (IGM) <1:20 NR G INTERPRETATION NRG BABESIA DUNCANI (WA1) ANTIBODY (IGG), IFA <1:256 NRG BABESIA MICROTI AB (IGG) <1:64 titer NRG BABESIA MICROTI AB (IGM) <1:20 titer NRG INTERPRETATION NRG E. CHAFFEENSIS AB IGG <1:64 NRG E. CHAFFEENSIS AB IGM <1:20 NRG ASO - 06/02/19 15:28 ANTI-STREPTOLYSIN O 226 IU/mL <200 Complete blood count (CBC) with automate d white blood cell (WBC) differential - 06/22/19 21:40 Blood leukocytes automated count (number/volume) 8.0 10*3/uL 4.3-11.0 Blood erythrocytes automated count (number/volume) 4.47 10*6/uL 4.35-5.85 Venous blood hemoglobin measurement (mass/volume) 13.3 g/dL 13.3-17.7 Blood hematocrit (volume fraction) 39 % 40-54 Automated erythrocyte mean corpuscular volume 87 [ foz_us] 80-99 Automated erythrocyte mean corpuscular h emoglobin (mass per erythrocyte) 30 pg 25-34 Automated erythrocyte mean corpuscular h emoglobin concentration measurement (mass/volume) 34 g/dL 32-36 Automated erythrocyte distribution width ratio 13. 7 % 10.0- 14.5 Automated blood platelet count (count/volume) 147 10*3/uL 130-400 Automated blood platelet mean volume measurement 9.6 [foz_us] 7.4-10.4 Automated blood neutrophils/100 leukocytes 50 % 42-75 Automated blood lymphocytes/100 leukocytes 29 % 12-44 Blood monocytes/100 leukocytes 10 % 0-12 Automated blood eosinophils/100 leukocytes 11 % 0-10 Automated blood basophils/100 leukocytes 1 % 0-10 Blood neutrophils automated count (number/volume) 4.0 10*3 1.8-7.8 Blood lymphocytes automated count (number/volume) 2.3 10*3 1.0-4.0 Blood monocytes automated count (number/volume) 0. 8 10*3 0.0-1.0 Automated eosinophil count 0.9 10*3/uL 0 .0-0.3 Automated blood basophil count (count/volume) 0.0 10*3/uL 0.0-0.1 PT panel in platelet poor plasma by coag ulation assay - 06/22/19 21:40 Prothrombin time (PT) in platelet poor plasma by coagu lation assay 13.3 s 12.2-14.7 INR in platelet poor plasma or blood by coagulation as say 1.0 0.8-1.4 Comprehensive metabolic panel - 06/22/19 21:40 Serum or plasma sodium measurement (moles/volume) 144 mmol/L 135-145 Serum or plasma potassium measurement (moles/volume) 3.6 mmol/L 3.6-5.0 Serum or plasma chloride measurement (moles/volume) 105 mmol/L 98-107 Carbon dioxide 25 mmol/L 21-32 Serum or plasma anion gap determination (moles/volume) 14 mmol/L 5-14 Serum or plasma urea nitrogen measurement (mass/volume ) 21 mg/dL 7-18 Serum or plasma creatinine measurement (mass/volume) 1.11 mg/dL 0.60-1.30 Serum or plasma urea nitrogen/creatinine mass ratio 19 NRG Serum or plasma creatinine measurement w ith calculation of estimated glomerular filtration rate > NRG Serum or plasma glucose measurement (mass/volume) 97 mg/dL 70-105 Serum or plasma calcium measurement (mass/volume) 9.2 mg/dL 8.5-10.1 Serum or plasma total bilirubin measurement (mass/volu me) 0.2 mg/dL 0.1-1.0 Serum or plasma alkaline phosphatase mark surement (enzymatic activity/volume) 94 U/L 40-136 Serum or plasma aspartate aminotransfera se measurement (enzymatic activity/volume) 19 U/L 5-34 Serum or plasma alanine aminotransferase measurement (enzymatic activity/volume) 12 U/L 0-55 Serum or plasma protein measurement (mass/volume) 6.6 g/dL 6.4-8.2 Serum or plasma albumin measurement (mass/volume) 4.4 g/dL 3.2-4.5 CALCIUM CORRECTED 8.9 mg/dL 8.5-10.1 Complete blood count (CBC) with automate d white blood cell (WBC) differential - 08/17/19 15:10 Blood leukocytes automated count (number/volume) 10.2 10*3/uL 4.3-11.0 Blood erythrocytes automated count (number/volume) 3.45 10*6/uL 4.35-5.85 Venous blood hemoglobin measurement (mass/volume) 10.1 g/dL 13.3-17.7 Blood hematocrit (volume fraction) 30 % 40-54 Automated erythrocyte mean corpuscular volume 88 [ foz_us] 80-99 Automated erythrocyte mean corpuscular h emoglobin (mass per erythrocyte) 29 pg 25-34 Automated erythrocyte mean corpuscular h emoglobin concentration measurement (mass/volume) 33 g/dL 32-36 Automated erythrocyte distribution width ratio 15. 3 % 10.0- 14.5 Automated blood platelet count (count/volume) 206 10*3/uL 130-400 Automated blood platelet mean volume measurement 8.5 [foz_us] 7.4-10.4 Automated blood neutrophils/100 leukocytes 72 % 42-75 Automated blood lymphocytes/100 leukocytes 14 % 12-44 Blood monocytes/100 leukocytes 14 % 0-12 Automated blood eosinophils/100 leukocytes 0 % 0-10 Automated blood basophils/100 leukocytes 0 % 0-10 Blood neutrophils automated count (number/volume) 7.4 10*3 1.8-7.8 Blood lymphocytes automated count (number/volume) 1.4 10*3 1.0-4.0 Blood monocytes automated count (number/volume) 1. 4 10*3 0.0-1.0 Automated eosinophil count 0.0 10*3/uL 0 .0-0.3 Automated blood basophil count (count/volume) 0.0 10*3/uL 0.0-0.1 PT panel in platelet poor plasma by coag ulation assay - 08/17/19 15:10 Prothrombin time (PT) in platelet poor plasma by coagu lation assay 14.0 s 12.2-14.7 INR in platelet poor plasma or blood by coagulation as say 1.0 0.8-1.4 Activated partial thromboplastin time (a PTT) in platelet poor plasma bycoagulation assay - 08/17/19 15:10 Activated partial thromboplastin time (a PTT) in platelet poor plasma bycoagulation assay 41 s 24-35 Blood lactic acid measurement (moles/vol ume) - 08/17/19 15:10 Blood lactic acid measurement (moles/volume) 3.33 mmol/L 0.50-2.00 Comprehensive metabolic panel - 08/17/19 15:10 Serum or plasma sodium measurement (moles/volume) 137 mmol/L 135-145 Serum or plasma potassium measurement (moles/volume) 4.0 mmol/L 3.6-5.0 Serum or plasma chloride measurement (moles/volume) 97 mmol/L 98-107 Carbon dioxide 25 mmol/L 21-32 Serum or plasma anion gap determination (moles/volume) 15 mmol/L 5-14 Serum or plasma urea nitrogen measurement (mass/volume ) 14 mg/dL 7-18 Serum or plasma creatinine measurement (mass/volume) 1.24 mg/dL 0.60-1.30 Serum or plasma urea nitrogen/creatinine mass ratio 11 NRG Serum or plasma creatinine measurement w ith calculation of estimated glomerular filtration rate > NRG Serum or plasma glucose measurement (mass/volume) 171 mg/dL 70-105 Serum or plasma calcium measurement (mass/volume) 8.3 mg/dL 8.5-10.1 Serum or plasma total bilirubin measurement (mass/volu me) 0.6 mg/dL 0.1-1.0 Serum or plasma alkaline phosphatase mark surement (enzymatic activity/volume) 57 U/L 40-136 Serum or plasma aspartate aminotransfera se measurement (enzymatic activity/volume) 16 U/L 5-34 Serum or plasma alanine aminotransferase measurement (enzymatic activity/volume) 21 U/L 0-55 Serum or plasma protein measurement (mass/volume) 6.3 g/dL 6.4-8.2 Serum or plasma albumin measurement (mass/volume) 3.2 g/dL 3.2-4.5 CALCIUM CORRECTED 8.9 mg/dL 8.5-10.1 Serum or plasma troponin i.cardiac measu rement (mass/volume) - 08/17/19 15:10 Serum or plasma troponin i.cardiac measurement (mass/v olume) 0.072 ng/mL <0.028 Serum or plasma lithium measurement (mol es/volume) - 08/17/19 15:10 BNP PT 254.5 pg/mL <100.0 Bacterial blood culture - 08/17/19 15:10 Bacterial blood culture NG NRG Bacterial blood culture - 08/17/19 15:14 Bacterial blood culture NG NRG Influenza virus A and B antigen detectio n - 08/17/19 15:24 FLU RESULT NEGATIVE FOR INFLUENZA A AND B ANTIGENS BY IA NRG Complete urinalysis with reflex to cultu re - 08/17/19 15:50 Urine color determination YELLOW NRG Urine clarity determination CLEAR NR G Urine pH measurement by test strip 6 5-9 Specific gravity of urine by test strip 1.010 1.016-1.022 Urine protein assay by test strip, semi-quantitative 2+ NEGATIVE Urine glucose detection by automated test strip 4+ NEGATIVE Erythrocytes detection in urine sediment by light micr oscopy NEGATIVE NEGATIVE Urine ketones detection by automated test strip NE GATIVE NEGATIVE Urine nitrite detection by test strip POSITIVE NEGATIVE Urine total bilirubin detection by test strip NEGA TIVE NEGATIVE Urine urobilinogen measurement by automated test strip (mass/volume) 4 mg/dL NORMAL Urine leukocyte esterase detection by dipstick 2+ NEGATIVE Automated urine sediment erythrocyte cou nt by microscopy (number/high power field) NONE NRG Automated urine sediment leukocyte count by microscopy (number/high power field) [HPF] NRG Bacteria detection in urine sediment by light microsco py FEW NRG Squamous epithelial cells detection in u rine sediment by light microscopy 5-10 NRG Crystals detection in urine sediment by light microsco py NONE NRG Casts detection in urine sediment by light microscopy NONE NRG Mucus detection in urine sediment by light microscopy NEGATIVE NRG Complete urinalysis with reflex to culture CULTURE PENDING NRG Bacterial urine culture - 08/17/19 15:50 Bacterial urine culture [id number] NRG COLONY COUNT 70,000 cfu/ml NRG FTX;REPORTABLE SUSCEPTIBILITY REPORTED 08/20 12:59 NRG Dirithromycin susceptibility test by dis k diffusion - 08/17/19 15:50 Gentamicin susceptibility test by minimum inhibitory c oncentration 4 NRG Trimethoprim/sulfamethoxazole susceptibi lity test by minimum inhibitoryconcentration <= NRG Levofloxacin susceptibility test by minimum inhibitory concentration <= NRG Ampicillin susceptibility test by minimum inhibitory c oncentration <= NRG Cefazolin susceptibility test by minimum inhibitory co ncentration 4 NRG Ceftriaxone susceptibility test by minimum inhibitory concentration <= NRG Ciprofloxacin susceptibility test by minimum inhibitor y concentration 1 NRG Nitrofurantoin susceptibility test by mi nimum inhibitory concentration > NRG Amoxicillin and clavulanate potassium susc KE <= NRG Serum or plasma lactate measurement (mol es/volume) - 08/17/19 17:00 Serum or plasma lactate measurement (moles/volume) 2.08 mmol/L 0.50-2.00 Methicillin resistant Staphylococcus aur eus (MRSA) screening culture - 08/17/19 19:45 Methicillin resistant Staphylococcus aureus (MRSA) scr eening culture NEG NRG Capillary blood glucose measurement by g lucometer (mass/volume) - 08/17/19 20:35 Capillary blood glucose measurement by glucometer (mas s/volume) 171 mg/dL 70-110 Complete blood count (CBC) with automate d white blood cell (WBC) differential - 08/18/19 02:52 Blood leukocytes automated count (number/volume) 7.8 10*3/uL 4.3-11.0 Blood erythrocytes automated count (number/volume) 2.97 10*6/uL 4.35-5.85 Venous blood hemoglobin measurement (mass/volume) 8.7 g/dL 13.3-17.7 Blood hematocrit (volume fraction) 26 % 40-54 Automated erythrocyte mean corpuscular volume 89 [ foz_us] 80-99 Automated erythrocyte mean corpuscular h emoglobin (mass per erythrocyte) 29 pg 25-34 Automated erythrocyte mean corpuscular h emoglobin concentration measurement (mass/volume) 33 g/dL 32-36 Automated erythrocyte distribution width ratio 15. 3 % 10.0- 14.5 Automated blood platelet count (count/volume) 183 10*3/uL 130-400 Automated blood platelet mean volume measurement 8.5 [foz_us] 7.4-10.4 Automated blood neutrophils/100 leukocytes 69 % 42-75 Automated blood lymphocytes/100 leukocytes 12 % 12-44 Blood monocytes/100 leukocytes 18 % 0-12 Automated blood eosinophils/100 leukocytes 1 % 0-10 Automated blood basophils/100 leukocytes 0 % 0-10 Blood neutrophils automated count (number/volume) 5.4 10*3 1.8-7.8 Blood lymphocytes automated count (number/volume) 1.0 10*3 1.0-4.0 Blood monocytes automated count (number/volume) 1. 4 10*3 0.0-1.0 Automated eosinophil count 0.1 10*3/uL 0 .0-0.3 Automated blood basophil count (count/volume) 0.0 10*3/uL 0.0-0.1 Blood lactic acid measurement (moles/vol ume) - 08/18/19 02:52 Blood lactic acid measurement (moles/volume) 0.61 mmol/L 0.50-2.00 Whole blood basic metabolic panel - 05/30 02:52 Serum or plasma sodium measurement (moles/volume) 140 mmol/L 135-145 Serum or plasma potassium measurement (moles/volume) 3.7 mmol/L 3.6-5.0 Serum or plasma chloride measurement (moles/volume) 106 mmol/L 98-107 Carbon dioxide 26 mmol/L 21-32 Serum or plasma anion gap determination (moles/volume) 8 mmol/L 5-14 Serum or plasma urea nitrogen measurement (mass/volume ) 12 mg/dL 7-18 Serum or plasma creatinine measurement (mass/volume) 0.80 mg/dL 0.60-1.30 Serum or plasma urea nitrogen/creatinine mass ratio 15 NRG Serum or plasma creatinine measurement w ith calculation of estimated glomerular filtration rate > NRG Serum or plasma glucose measurement (mass/volume) 142 mg/dL 70-105 Serum or plasma calcium measurement (mass/volume) 7.6 mg/dL 8.5-10.1 Serum or plasma phosphate measurement (m ass/volume) - 08/18/19 02:52 Serum or plasma phosphate measurement (mass/volume) 3.2 mg/dL 2.3-4.7 Magnesium - 08/18/19 02:52 Magnesium 1.7 mg/dL 1.6-2.4 Serum or plasma troponin i.cardiac measu rement (mass/volume) - 08/18/19 02:52 Serum or plasma troponin i.cardiac measurement (mass/v olume) 0.113 ng/mL <0.028 OCCULT BLOOD STOOL - 08/18/19 09:02 Stool gastrointestinal hemoglobin detection POSITI VE NEGATIVE Capillary blood glucose measurement by g lucometer (mass/volume) - 08/18/19 11:33 Capillary blood glucose measurement by glucometer (mas s/volume) 196 mg/dL 70-110 Complete blood count (CBC) with automate d white blood cell (WBC) differential - 08/18/19 15:00 Blood leukocytes automated count (number/volume) 5.1 10*3/uL 4.3-11.0 Blood erythrocytes automated count (number/volume) 3.05 10*6/uL 4.35-5.85 Venous blood hemoglobin measurement (mass/volume) 9.0 g/dL 13.3-17.7 Blood hematocrit (volume fraction) 27 % 40-54 Automated erythrocyte mean corpuscular volume 90 [ foz_us] 80-99 Automated erythrocyte mean corpuscular h emoglobin (mass per erythrocyte) 30 pg 25-34 Automated erythrocyte mean corpuscular h emoglobin concentration measurement (mass/volume) 33 g/dL 32-36 Automated erythrocyte distribution width ratio 14. 9 % 10.0- 14.5 Automated blood platelet count (count/volume) 168 10*3/uL 130-400 Automated blood platelet mean volume measurement 8.2 [foz_us] 7.4-10.4 Automated blood neutrophils/100 leukocytes 77 % 42-75 Automated blood lymphocytes/100 leukocytes 11 % 12-44 Blood monocytes/100 leukocytes 12 % 0-12 Automated blood eosinophils/100 leukocytes 0 % 0-10 Automated blood basophils/100 leukocytes 0 % 0-10 Blood neutrophils automated count (number/volume) 3.9 10*3 1.8-7.8 Blood lymphocytes automated count (number/volume) 0.5 10*3 1.0-4.0 Blood monocytes automated count (number/volume) 0. 6 10*3 0.0-1.0 Automated eosinophil count 0.0 10*3/uL 0 .0-0.3 Automated blood basophil count (count/volume) 0.0 10*3/uL 0.0-0.1 Comprehensive metabolic panel - 08/18/19 15:00 Serum or plasma sodium measurement (moles/volume) 145 mmol/L 135-145 Serum or plasma potassium measurement (moles/volume) 4.0 mmol/L 3.6-5.0 Serum or plasma chloride measurement (moles/volume) 109 mmol/L 98-107 Carbon dioxide 29 mmol/L 21-32 Serum or plasma anion gap determination (moles/volume) 7 mmol/L 5-14 Serum or plasma urea nitrogen measurement (mass/volume ) 12 mg/dL 7-18 Serum or plasma creatinine measurement (mass/volume) 0.77 mg/dL 0.60-1.30 Serum or plasma urea nitrogen/creatinine mass ratio 16 NRG Serum or plasma creatinine measurement w ith calculation of estimated glomerular filtration rate > NRG Serum or plasma glucose measurement (mass/volume) 171 mg/dL 70-105 Serum or plasma calcium measurement (mass/volume) 7.7 mg/dL 8.5-10.1 Serum or plasma total bilirubin measurement (mass/volu me) 0.4 mg/dL 0.1-1.0 Serum or plasma alkaline phosphatase mark surement (enzymatic activity/volume) 60 U/L 40-136 Serum or plasma aspartate aminotransfera se measurement (enzymatic activity/volume) 21 U/L 5-34 Serum or plasma alanine aminotransferase measurement (enzymatic activity/volume) 21 U/L 0-55 Serum or plasma protein measurement (mass/volume) 5.5 g/dL 6.4-8.2 Serum or plasma albumin measurement (mass/volume) 2.7 g/dL 3.2-4.5 CALCIUM CORRECTED 8.7 mg/dL 8.5-10.1 Serum or plasma phosphate measurement (m ass/volume) - 08/18/19 15:00 Serum or plasma phosphate measurement (mass/volume) 3.3 mg/dL 2.3-4.7 Magnesium - 08/18/19 15:00 Magnesium 2.1 mg/dL 1.6-2.4 Capillary blood glucose measurement by g lucometer (mass/volume) - 08/18/19 16:57 Capillary blood glucose measurement by glucometer (mas s/volume) 167 mg/dL 70-110 Capillary blood glucose measurement by g lucometer (mass/volume) - 08/18/19 22:07 Capillary blood glucose measurement by glucometer (mas s/volume) 264 mg/dL 70-110 Capillary blood glucose measurement by g lucometer (mass/volume) - 08/19/19 05:23 Capillary blood glucose measurement by glucometer (mas s/volume) 232 mg/dL 70-110 Vancomycin trough - 08/19/19 07:10 Vancomycin trough 17.5 ug/mL 10.0-20.0 Comprehensive metabolic panel - 08/19/19 07:10 Serum or plasma sodium measurement (moles/volume) 143 mmol/L 135-145 Serum or plasma potassium measurement (moles/volume) 4.0 mmol/L 3.6-5.0 Serum or plasma chloride measurement (moles/volume) 111 mmol/L 98-107 Carbon dioxide 23 mmol/L 21-32 Serum or plasma anion gap determination (moles/volume) 9 mmol/L 5-14 Serum or plasma urea nitrogen measurement (mass/volume ) 12 mg/dL 7-18 Serum or plasma creatinine measurement (mass/volume) 0.69 mg/dL 0.60-1.30 Serum or plasma urea nitrogen/creatinine mass ratio 17 NRG Serum or plasma creatinine measurement w ith calculation of estimated glomerular filtration rate > NRG Serum or plasma glucose measurement (mass/volume) 165 mg/dL 70-105 Serum or plasma calcium measurement (mass/volume) 7.7 mg/dL 8.5-10.1 Serum or plasma total bilirubin measurement (mass/volu me) 0.3 mg/dL 0.1-1.0 Serum or plasma alkaline phosphatase mark surement (enzymatic activity/volume) 48 U/L 40-136 Serum or plasma aspartate aminotransfera se measurement (enzymatic activity/volume) 22 U/L 5-34 Serum or plasma alanine aminotransferase measurement (enzymatic activity/volume) 26 U/L 0-55 Serum or plasma protein measurement (mass/volume) 5.1 g/dL 6.4-8.2 Serum or plasma albumin measurement (mass/volume) 2.6 g/dL 3.2-4.5 CALCIUM CORRECTED 8.8 mg/dL 8.5-10.1 Serum or plasma phosphate measurement (m ass/volume) - 08/19/19 07:10 Serum or plasma phosphate measurement (mass/volume) 2.6 mg/dL 2.3-4.7 Magnesium - 08/19/19 07:10 Magnesium 1.9 mg/dL 1.6-2.4 Capillary blood glucose measurement by g lucometer (mass/volume) - 08/19/19 11:05 Capillary blood glucose measurement by glucometer (mas s/volume) 252 mg/dL 70-110 Complete blood count (CBC) with automate d white blood cell (WBC) differential - 08/19/19 13:01 Blood leukocytes automated count (number/volume) 5.9 10*3/uL 4.3-11.0 Blood erythrocytes automated count (number/volume) 2.87 10*6/uL 4.35-5.85 Venous blood hemoglobin measurement (mass/volume) 8.3 g/dL 13.3-17.7 Blood hematocrit (volume fraction) 25 % 40-54 Automated erythrocyte mean corpuscular volume 88 [ foz_us] 80-99 Automated erythrocyte mean corpuscular h emoglobin (mass per erythrocyte) 29 pg 25-34 Automated erythrocyte mean corpuscular h emoglobin concentration measurement (mass/volume) 33 g/dL 32-36 Automated erythrocyte distribution width ratio 14. 8 % 10.0- 14.5 Automated blood platelet count (count/volume) 214 10*3/uL 130-400 Automated blood platelet mean volume measurement 8.8 [foz_us] 7.4-10.4 Automated blood neutrophils/100 leukocytes 78 % 42-75 Automated blood lymphocytes/100 leukocytes 11 % 12-44 Blood monocytes/100 leukocytes 10 % 0-12 Automated blood eosinophils/100 leukocytes 0 % 0-10 Automated blood basophils/100 leukocytes 0 % 0-10 Blood neutrophils automated count (number/volume) 4.7 10*3 1.8-7.8 Blood lymphocytes automated count (number/volume) 0.7 10*3 1.0-4.0 Blood monocytes automated count (number/volume) 0. 6 10*3 0.0-1.0 Automated eosinophil count 0.0 10*3/uL 0 .0-0.3 Automated blood basophil count (count/volume) 0.0 10*3/uL 0.0-0.1 Serum or plasma lithium measurement (mol es/volume) - 08/19/19 13:01 BNP PT 872.9 pg/mL <100.0 Capillary blood glucose measurement by g lucometer (mass/volume) - 08/19/19 18:10 Capillary blood glucose measurement by glucometer (mas s/volume) 255 mg/dL 70-110 Capillary blood glucose measurement by g lucometer (mass/volume) - 08/19/19 21:15 Capillary blood glucose measurement by glucometer (mas s/volume) 202 mg/dL 70-110 Complete blood count (CBC) with automate d white blood cell (WBC) differential - 08/20/19 05:51 Blood leukocytes automated count (number/volume) 5.6 10*3/uL 4.3-11.0 Blood erythrocytes automated count (number/volume) 3.03 10*6/uL 4.35-5.85 Venous blood hemoglobin measurement (mass/volume) 8.8 g/dL 13.3-17.7 Blood hematocrit (volume fraction) 27 % 40-54 Automated erythrocyte mean corpuscular volume 89 [ foz_us] 80-99 Automated erythrocyte mean corpuscular h emoglobin (mass per erythrocyte) 29 pg 25-34 Automated erythrocyte mean corpuscular h emoglobin concentration measurement (mass/volume) 33 g/dL 32-36 Automated erythrocyte distribution width ratio 14. 9 % 10.0- 14.5 Automated blood platelet count (count/volume) 211 10*3/uL 130-400 Automated blood platelet mean volume measurement 8.5 [foz_us] 7.4-10.4 Automated blood neutrophils/100 leukocytes 58 % 42-75 Automated blood lymphocytes/100 leukocytes 31 % 12-44 Blood monocytes/100 leukocytes 11 % 0-12 Automated blood eosinophils/100 leukocytes 1 % 0-10 Automated blood basophils/100 leukocytes 0 % 0-10 Blood neutrophils automated count (number/volume) 3.2 10*3 1.8-7.8 Blood lymphocytes automated count (number/volume) 1.7 10*3 1.0-4.0 Blood monocytes automated count (number/volume) 0. 6 10*3 0.0-1.0 Automated eosinophil count 0.0 10*3/uL 0 .0-0.3 Automated blood basophil count (count/volume) 0.0 10*3/uL 0.0-0.1 Comprehensive metabolic panel - 08/20/19 05:51 Serum or plasma sodium measurement (moles/volume) 142 mmol/L 135-145 Serum or plasma potassium measurement (moles/volume) 3.8 mmol/L 3.6-5.0 Serum or plasma chloride measurement (moles/volume) 111 mmol/L 98-107 Carbon dioxide 23 mmol/L 21-32 Serum or plasma anion gap determination (moles/volume) 8 mmol/L 5-14 Serum or plasma urea nitrogen measurement (mass/volume ) 12 mg/dL 7-18 Serum or plasma creatinine measurement (mass/volume) 0.69 mg/dL 0.60-1.30 Serum or plasma urea nitrogen/creatinine mass ratio 17 NRG Serum or plasma creatinine measurement w ith calculation of estimated glomerular filtration rate > NRG Serum or plasma glucose measurement (mass/volume) 132 mg/dL 70-105 Serum or plasma calcium measurement (mass/volume) 7.6 mg/dL 8.5-10.1 Serum or plasma total bilirubin measurement (mass/volu me) 0.2 mg/dL 0.1-1.0 Serum or plasma alkaline phosphatase mark surement (enzymatic activity/volume) 46 U/L 40-136 Serum or plasma aspartate aminotransfera se measurement (enzymatic activity/volume) 26 U/L 5-34 Serum or plasma alanine aminotransferase measurement (enzymatic activity/volume) 30 U/L 0-55 Serum or plasma protein measurement (mass/volume) 4.8 g/dL 6.4-8.2 Serum or plasma albumin measurement (mass/volume) 2.5 g/dL 3.2-4.5 CALCIUM CORRECTED 8.8 mg/dL 8.5-10.1 Capillary blood glucose measurement by g lucometer (mass/volume) - 08/20/19 11:19 Capillary blood glucose measurement by glucometer (mas s/volume) 144 mg/dL 70-110 Capillary blood glucose measurement by g lucometer (mass/volume) - 08/20/19 17:01 Capillary blood glucose measurement by glucometer (mas s/volume) 144 mg/dL 70-110 Capillary blood glucose measurement by g lucometer (mass/volume) - 08/20/19 21:42 Capillary blood glucose measurement by glucometer (mas s/volume) 187 mg/dL 70-110 Complete blood count (CBC) with automate d white blood cell (WBC) differential - 08/21/19 05:22 Blood leukocytes automated count (number/volume) 5.7 10*3/uL 4.3-11.0 Blood erythrocytes automated count (number/volume) 3.16 10*6/uL 4.35-5.85 Venous blood hemoglobin measurement (mass/volume) 9.1 g/dL 13.3-17.7 Blood hematocrit (volume fraction) 28 % 40-54 Automated erythrocyte mean corpuscular volume 89 [ foz_us] 80-99 Automated erythrocyte mean corpuscular h emoglobin (mass per erythrocyte) 29 pg 25-34 Automated erythrocyte mean corpuscular h emoglobin concentration measurement (mass/volume) 33 g/dL 32-36 Automated erythrocyte distribution width ratio 15. 1 % 10.0- 14.5 Automated blood platelet count (count/volume) 247 10*3/uL 130-400 Automated blood platelet mean volume measurement 8.1 [foz_us] 7.4-10.4 Automated blood neutrophils/100 leukocytes 66 % 42-75 Automated blood lymphocytes/100 leukocytes 23 % 12-44 Blood monocytes/100 leukocytes 11 % 0-12 Automated blood eosinophils/100 leukocytes 1 % 0-10 Automated blood basophils/100 leukocytes 0 % 0-10 Blood neutrophils automated count (number/volume) 3.8 10*3 1.8-7.8 Blood lymphocytes automated count (number/volume) 1.3 10*3 1.0-4.0 Blood monocytes automated count (number/volume) 0. 6 10*3 0.0-1.0 Automated eosinophil count 0.0 10*3/uL 0 .0-0.3 Automated blood basophil count (count/volume) 0.0 10*3/uL 0.0-0.1 Comprehensive metabolic panel - 08/21/19 05:22 Serum or plasma sodium measurement (moles/volume) 144 mmol/L 135-145 Serum or plasma potassium measurement (moles/volume) 3.6 mmol/L 3.6-5.0 Serum or plasma chloride measurement (moles/volume) 110 mmol/L 98-107 Carbon dioxide 25 mmol/L 21-32 Serum or plasma anion gap determination (moles/volume) 9 mmol/L 5-14 Serum or plasma urea nitrogen measurement (mass/volume ) 9 mg/dL 7-18 Serum or plasma creatinine measurement (mass/volume) 0.67 mg/dL 0.60-1.30 Serum or plasma urea nitrogen/creatinine mass ratio 13 NRG Serum or plasma creatinine measurement w ith calculation of estimated glomerular filtration rate > NRG Serum or plasma glucose measurement (mass/volume) 142 mg/dL 70-105 Serum or plasma calcium measurement (mass/volume) 8.1 mg/dL 8.5-10.1 Serum or plasma total bilirubin measurement (mass/volu me) 0.2 mg/dL 0.1-1.0 Serum or plasma alkaline phosphatase mark surement (enzymatic activity/volume) 50 U/L 40-136 Serum or plasma aspartate aminotransfera se measurement (enzymatic activity/volume) 15 U/L 5-34 Serum or plasma alanine aminotransferase measurement (enzymatic activity/volume) 23 U/L 0-55 Serum or plasma protein measurement (mass/volume) 5.0 g/dL 6.4-8.2 Serum or plasma albumin measurement (mass/volume) 2.6 g/dL 3.2-4.5 CALCIUM CORRECTED 9.2 mg/dL 8.5-10.1 Capillary blood glucose measurement by g lucometer (mass/volume) - 08/21/19 11:54 Capillary blood glucose measurement by glucometer (mas s/volume) 146 mg/dL 70-110 Capillary blood glucose measurement by g lucometer (mass/volume) - 08/21/19 16:25 Capillary blood glucose measurement by glucometer (mas s/volume) 133 mg/dL 70-110 Capillary blood glucose measurement by g lucometer (mass/volume) - 08/21/19 20:32 Capillary blood glucose measurement by glucometer (mas s/volume) 161 mg/dL 70-110 Capillary blood glucose measurement by g lucometer (mass/volume) - 08/22/19 06:06 Capillary blood glucose measurement by glucometer (mas s/volume) 139 mg/dL 70-110 Capillary blood glucose measurement by g lucometer (mass/volume) - 08/22/19 11:26 Capillary blood glucose measurement by glucometer (mas s/volume) 149 mg/dL 70-110 Capillary blood glucose measurement by g lucometer (mass/volume) - 08/22/19 16:17 Capillary blood glucose measurement by glucometer (mas s/volume) 163 mg/dL 70-110 Complete urinalysis with reflex to cultu re - 08/22/19 17:30 Urine color determination YELLOW NRG Urine clarity determination CLEAR NR G Urine pH measurement by test strip 6 5-9 Specific gravity of urine by test strip 1.015 1.016-1.022 Urine protein assay by test strip, semi-quantitative 2+ NEGATIVE Urine glucose detection by automated test strip NE GATIVE NEGATIVE Erythrocytes detection in urine sediment by light micr oscopy NEGATIVE NEGATIVE Urine ketones detection by automated test strip NE GATIVE NEGATIVE Urine nitrite detection by test strip NEGATIVE NEGATIVE Urine total bilirubin detection by test strip NEGA TIVE NEGATIVE Urine urobilinogen measurement by automated test strip (mass/volume) 1 mg/dL NORMAL Urine leukocyte esterase detection by dipstick 2+ NEGATIVE Automated urine sediment erythrocyte cou nt by microscopy (number/high power field) [HPF] NRG Automated urine sediment leukocyte count by microscopy (number/high power field) [HPF] NRG Bacteria detection in urine sediment by light microsco py FEW NRG Crystals detection in urine sediment by light microsco py NONE NRG Casts detection in urine sediment by light microscopy NONE NRG Mucus detection in urine sediment by light microscopy NEGATIVE NRG Complete urinalysis with reflex to culture YES NRG Bacterial urine culture - 08/22/19 17:30 Bacterial urine culture [id number] NRG COLONY COUNT 40,000 CFU/ML NRG Capillary blood glucose measurement by g lucometer (mass/volume) - 08/22/19 22:02 Capillary blood glucose measurement by glucometer (mas s/volume) 176 mg/dL 70-110 Capillary blood glucose measurement by g lucometer (mass/volume) - 08/23/19 06:19 Capillary blood glucose measurement by glucometer (mas s/volume) 153 mg/dL 70-110 Capillary blood glucose measurement by g lucometer (mass/volume) - 08/23/19 11:43 Capillary blood glucose measurement by glucometer (mas s/volume) 156 mg/dL 70-110 Capillary blood glucose measurement by g lucometer (mass/volume) - 08/23/19 16:17 Capillary blood glucose measurement by glucometer (mas s/volume) 136 mg/dL 70-110 Capillary blood glucose measurement by g lucometer (mass/volume) - 08/23/19 20:23 Capillary blood glucose measurement by glucometer (mas s/volume) 155 mg/dL 70-110 Capillary blood glucose measurement by g lucometer (mass/volume) - 08/24/19 04:43 Capillary blood glucose measurement by glucometer (mas s/volume) 133 mg/dL 70-110 Capillary blood glucose measurement by g lucometer (mass/volume) - 08/24/19 11:45 Capillary blood glucose measurement by glucometer (mas s/volume) 187 mg/dL 70-110 Capillary blood glucose measurement by g lucometer (mass/volume) - 08/24/19 16:32 Capillary blood glucose measurement by glucometer (mas s/volume) 151 mg/dL 70-110 Capillary blood glucose measurement by g lucometer (mass/volume) - 08/24/19 21:57 Capillary blood glucose measurement by glucometer (mas s/volume) 183 mg/dL 70-110 Complete blood count (CBC) with automate d white blood cell (WBC) differential - 08/25/19 04:45 Blood leukocytes automated count (number/volume) 6.3 10*3/uL 4.3-11.0 Blood erythrocytes automated count (number/volume) 3.07 10*6/uL 4.35-5.85 Venous blood hemoglobin measurement (mass/volume) 8.8 g/dL 13.3-17.7 Blood hematocrit (volume fraction) 28 % 40-54 Automated erythrocyte mean corpuscular volume 90 [ foz_us] 80-99 Automated erythrocyte mean corpuscular h emoglobin (mass per erythrocyte) 29 pg 25-34 Automated erythrocyte mean corpuscular h emoglobin concentration measurement (mass/volume) 32 g/dL 32-36 Automated erythrocyte distribution width ratio 15. 7 % 10.0- 14.5 Automated blood platelet count (count/volume) 252 10*3/uL 130-400 Automated blood platelet mean volume measurement 7.9 [foz_us] 7.4-10.4 Automated blood neutrophils/100 leukocytes 59 % 42-75 Automated blood lymphocytes/100 leukocytes 28 % 12-44 Blood monocytes/100 leukocytes 12 % 0-12 Automated blood eosinophils/100 leukocytes 2 % 0-10 Automated blood basophils/100 leukocytes 0 % 0-10 Blood neutrophils automated count (number/volume) 3.7 10*3 1.8-7.8 Blood lymphocytes automated count (number/volume) 1.8 10*3 1.0-4.0 Blood monocytes automated count (number/volume) 0. 7 10*3 0.0-1.0 Automated eosinophil count 0.1 10*3/uL 0 .0-0.3 Automated blood basophil count (count/volume) 0.0 10*3/uL 0.0-0.1 Comprehensive metabolic panel - 08/25/19 04:45 Serum or plasma sodium measurement (moles/volume) 143 mmol/L 135-145 Serum or plasma potassium measurement (moles/volume) 3.7 mmol/L 3.6-5.0 Serum or plasma chloride measurement (moles/volume) 107 mmol/L 98-107 Carbon dioxide 26 mmol/L 21-32 Serum or plasma anion gap determination (moles/volume) 10 mmol/L 5-14 Serum or plasma urea nitrogen measurement (mass/volume ) 7 mg/dL 7-18 Serum or plasma creatinine measurement (mass/volume) 0.71 mg/dL 0.60-1.30 Serum or plasma urea nitrogen/creatinine mass ratio 10 NRG Serum or plasma creatinine measurement w ith calculation of estimated glomerular filtration rate > NRG Serum or plasma glucose measurement (mass/volume) 109 mg/dL 70-105 Serum or plasma calcium measurement (mass/volume) 8.0 mg/dL 8.5-10.1 Serum or plasma total bilirubin measurement (mass/volu me) 0.2 mg/dL 0.1-1.0 Serum or plasma alkaline phosphatase mark surement (enzymatic activity/volume) 54 U/L 40-136 Serum or plasma aspartate aminotransfera se measurement (enzymatic activity/volume) 20 U/L 5-34 Serum or plasma alanine aminotransferase measurement (enzymatic activity/volume) 27 U/L 0-55 Serum or plasma protein measurement (mass/volume) 5.1 g/dL 6.4-8.2 Serum or plasma albumin measurement (mass/volume) 2.7 g/dL 3.2-4.5 CALCIUM CORRECTED 9.0 mg/dL 8.5-10.1 Capillary blood glucose measurement by g lucometer (mass/volume) - 08/25/19 04:47 Capillary blood glucose measurement by glucometer (mas s/volume) 116 mg/dL 70-110 Capillary blood glucose measurement by g lucometer (mass/volume) - 08/25/19 11:09 Capillary blood glucose measurement by glucometer (mas s/volume) 138 mg/dL 70-110 Capillary blood glucose measurement by g lucometer (mass/volume) - 08/25/19 15:50 Capillary blood glucose measurement by glucometer (mas s/volume) 112 mg/dL 70-110 Capillary blood glucose measurement by g lucometer (mass/volume) - 08/25/19 20:05 Capillary blood glucose measurement by glucometer (mas s/volume) 211 mg/dL 70-110 Capillary blood glucose measurement by g lucometer (mass/volume) - 08/26/19 04:05 Capillary blood glucose measurement by glucometer (mas s/volume) 137 mg/dL 70-110 Capillary blood glucose measurement by g lucometer (mass/volume) - 08/26/19 11:28 Capillary blood glucose measurement by glucometer (mas s/volume) 123 mg/dL 70-110 Capillary blood glucose measurement by g lucometer (mass/volume) - 08/26/19 15:34 Capillary blood glucose measurement by glucometer (mas s/volume) 153 mg/dL 70-110 Capillary blood glucose measurement by g lucometer (mass/volume) - 08/26/19 19:53 Capillary blood glucose measurement by glucometer (mas s/volume) 147 mg/dL 70-110 Capillary blood glucose measurement by g lucometer (mass/volume) - 08/27/19 04:42 Capillary blood glucose measurement by glucometer (mas s/volume) 135 mg/dL 70-110 Capillary blood glucose measurement by g lucometer (mass/volume) - 08/27/19 10:56 Capillary blood glucose measurement by glucometer (mas s/volume) 128 mg/dL 70-110 Complete blood count (CBC) with automate d white blood cell (WBC) differential - 12/27/19 06:12 Blood leukocytes automated count (number/volume) 10.0 10*3/uL 4.3-11.0 Blood erythrocytes automated count (number/volume) 4.77 10*6/uL 4.35-5.85 Venous blood hemoglobin measurement (mass/volume) 12.5 g/dL 13.3-17.7 Blood hematocrit (volume fraction) 38 % 40-54 Automated erythrocyte mean corpuscular volume 81 [ foz_us] 80-99 Automated erythrocyte mean corpuscular h emoglobin (mass per erythrocyte) 26 pg 25-34 Automated erythrocyte mean corpuscular h emoglobin concentration measurement (mass/volume) 33 g/dL 32-36 Automated erythrocyte distribution width ratio 17. 4 % 10.0- 14.5 Automated blood platelet count (count/volume) 284 10*3/uL 130-400 Automated blood platelet mean volume measurement 10.4 [foz_us] 7.4-10.4 Automated blood neutrophils/100 leukocytes 75 % 42-75 Automated blood lymphocytes/100 leukocytes 15 % 12-44 Blood monocytes/100 leukocytes 10 % 0-12 Automated blood eosinophils/100 leukocytes 1 % 0-10 Automated blood basophils/100 leukocytes 0 % 0-10 Blood neutrophils automated count (number/volume) 7.5 10*3 1.8-7.8 Blood lymphocytes automated count (number/volume) 1.5 10*3 1.0-4.0 Blood monocytes automated count (number/volume) 1. 0 10*3 0.0-1.0 Automated eosinophil count 0.1 10*3/uL 0 .0-0.3 Automated blood basophil count (count/volume) 0.0 10*3/uL 0.0-0.1 Comprehensive metabolic panel - 12/27/19 06:12 Serum or plasma sodium measurement (moles/volume) 138 mmol/L 135-145 Serum or plasma potassium measurement (moles/volume) 4.3 mmol/L 3.6-5.0 Serum or plasma chloride measurement (moles/volume) 106 mmol/L 98-107 Carbon dioxide 19 mmol/L 21-32 Serum or plasma anion gap determination (moles/volume) 13 mmol/L 5-14 Serum or plasma urea nitrogen measurement (mass/volume ) 19 mg/dL 7-18 Serum or plasma creatinine measurement (mass/volume) 1.23 mg/dL 0.60-1.30 Serum or plasma urea nitrogen/creatinine mass ratio 15 NRG Serum or plasma creatinine measurement w ith calculation of estimated glomerular filtration rate > NRG Serum or plasma glucose measurement (mass/volume) 229 mg/dL 70-105 Serum or plasma calcium measurement (mass/volume) 9.2 mg/dL 8.5-10.1 Serum or plasma total bilirubin measurement (mass/volu me) 0.5 mg/dL 0.1-1.0 Serum or plasma alkaline phosphatase mark surement (enzymatic activity/volume) 140 U/L 40-136 Serum or plasma aspartate aminotransfera se measurement (enzymatic activity/volume) 21 U/L 5-34 Serum or plasma alanine aminotransferase measurement (enzymatic activity/volume) 24 U/L 0-55 Serum or plasma protein measurement (mass/volume) 7.0 g/dL 6.4-8.2 Serum or plasma albumin measurement (mass/volume) 3.9 g/dL 3.2-4.5 CALCIUM CORRECTED 9.3 mg/dL 8.5-10.1 Capillary blood glucose measurement by g lucometer (mass/volume) - 12/27/19 15:51 Capillary blood glucose measurement by glucometer (mas s/volume) 170 mg/dL 70-110 Capillary blood glucose measurement by g lucometer (mass/volume) - 12/27/19 20:15 Capillary blood glucose measurement by glucometer (mas s/volume) 220 mg/dL 70-110 Capillary blood glucose measurement by g lucometer (mass/volume) - 12/28/19 06:15 Capillary blood glucose measurement by glucometer (mas s/volume) 181 mg/dL 70-110 Capillary blood glucose measurement by g lucometer (mass/volume) - 12/28/19 10:53 Capillary blood glucose measurement by glucometer (mas s/volume) 153 mg/dL 70-110 Arterial blood gas measurement - 0 15:00 Blood pCO2 32 mm[Hg] 35-45 Blood pO2 63 mm[Hg] 79-93 Arterial blood bicarbonate measurement (moles/volume) 25 mmol/L 23-27 Arterial blood base excess by calculation 1.4 mmol /L -2.5-2.5 Arterial blood oxygen saturation measurement 94 % 94-100 * Inhaled oxygen flow rate 2 L NRG Arterial blood pH measurement with patient temperature correction 7.49 7.37-7.43 Arterial blood carbon dioxide, total measurement (mole s/volume) 25.6 mmol/L 21.0-31.0 Body site LT RAD NRG Assessment of wrist artery patency prior to arterial p uncture YES-POS NRG Setting of ventilation mode NO NR G Measurement of body temperature 36.4 NRG Capillary blood glucose measurement by g lucometer (mass/volume) - 12/28/19 16:08 Capillary blood glucose measurement by glucometer (mas s/volume) 183 mg/dL 70-110 Arterial blood gas measurement - 0 16:47 Blood pCO2 39 mm[Hg] 35-45 Blood pO2 68 mm[Hg] 79-93 Arterial blood bicarbonate measurement (moles/volume) 24 mmol/L 23-27 Arterial blood base excess by calculation -0.5 mmo l/L -2.5-2.5 Arterial blood oxygen saturation measurement 95 % 94-100 * Inhaled oxygen flow rate 3L NRG Arterial blood pH measurement with patient temperature correction 7.40 7.37-7.43 Arterial blood carbon dioxide, total measurement (mole s/volume) 24.9 mmol/L 21.0-31.0 Body site RT RAD NRG Assessment of wrist artery patency prior to arterial p uncture POS NRG Setting of ventilation mode NO NR G Measurement of body temperature 36.6 NRG Capillary blood glucose measurement by g lucometer (mass/volume) - 12/28/19 17:30 Capillary blood glucose measurement by glucometer (mas s/volume) 173 mg/dL 70-110 Complete blood count (CBC) with automate d white blood cell (WBC) differential - 12/28/19 17:30 Blood leukocytes automated count (number/volume) 11.2 10*3/uL 4.3-11.0 Blood erythrocytes automated count (number/volume) 4.28 10*6/uL 4.35-5.85 Venous blood hemoglobin measurement (mass/volume) 11.5 g/dL 13.3-17.7 Blood hematocrit (volume fraction) 35 % 40-54 Automated erythrocyte mean corpuscular volume 83 [ foz_us] 80-99 Automated erythrocyte mean corpuscular h emoglobin (mass per erythrocyte) 27 pg 25-34 Automated erythrocyte mean corpuscular h emoglobin concentration measurement (mass/volume) 33 g/dL 32-36 Automated erythrocyte distribution width ratio 17. 1 % 10.0- 14.5 Automated blood platelet count (count/volume) 252 10*3/uL 130-400 Automated blood platelet mean volume measurement 9.9 [foz_us] 7.4-10.4 Automated blood neutrophils/100 leukocytes 70 % 42-75 Automated blood lymphocytes/100 leukocytes 17 % 12-44 Blood monocytes/100 leukocytes 11 % 0-12 Automated blood eosinophils/100 leukocytes 1 % 0-10 Automated blood basophils/100 leukocytes 0 % 0-10 Blood neutrophils automated count (number/volume) 7.9 10*3 1.8-7.8 Blood lymphocytes automated count (number/volume) 1.9 10*3 1.0-4.0 Blood monocytes automated count (number/volume) 1. 2 10*3 0.0-1.0 Automated eosinophil count 0.2 10*3/uL 0 .0-0.3 Automated blood basophil count (count/volume) 0.0 10*3/uL 0.0-0.1 Comprehensive metabolic panel - 12/28/19 17:30 Serum or plasma sodium measurement (moles/volume) 136 mmol/L 135-145 Serum or plasma potassium measurement (moles/volume) 3.9 mmol/L 3.6-5.0 Serum or plasma chloride measurement (moles/volume) 103 mmol/L 98-107 Carbon dioxide 20 mmol/L 21-32 Serum or plasma anion gap determination (moles/volume) 13 mmol/L 5-14 Serum or plasma urea nitrogen measurement (mass/volume ) 18 mg/dL 7-18 Serum or plasma creatinine measurement (mass/volume) 1.20 mg/dL 0.60-1.30 Serum or plasma urea nitrogen/creatinine mass ratio 15 NRG Serum or plasma creatinine measurement w ith calculation of estimated glomerular filtration rate > NRG Serum or plasma glucose measurement (mass/volume) 152 mg/dL 70-105 Serum or plasma calcium measurement (mass/volume) 9.2 mg/dL 8.5-10.1 Serum or plasma total bilirubin measurement (mass/volu me) 0.6 mg/dL 0.1-1.0 Serum or plasma alkaline phosphatase mark surement (enzymatic activity/volume) 146 U/L 40-136 Serum or plasma aspartate aminotransfera se measurement (enzymatic activity/volume) 16 U/L 5-34 Serum or plasma alanine aminotransferase measurement (enzymatic activity/volume) 22 U/L 0-55 Serum or plasma protein measurement (mass/volume) 7.3 g/dL 6.4-8.2 Serum or plasma albumin measurement (mass/volume) 3.9 g/dL 3.2-4.5 CALCIUM CORRECTED 9.3 mg/dL 8.5-10.1 Blood lactic acid measurement (moles/vol ume) - 12/28/19 17:30 Blood lactic acid measurement (moles/volume) 2.25 mmol/L 0.50-2.00 Serum or plasma troponin i.cardiac measu rement (mass/volume) - 12/28/19 17:30 Serum or plasma troponin i.cardiac measurement (mass/v olume) 0.320 ng/mL <0.028 Serum or plasma lithium measurement (mol es/volume) - 12/28/19 17:30 BNP PT 92.0 pg/mL <100.0 Bacterial blood culture - 12/28/19 19:00 Bacterial blood culture NG NRG Serum or plasma lactate measurement (mol es/volume) - 12/28/19 21:12 Serum or plasma lactate measurement (moles/volume) 1.43 mmol/L 0.50-2.00 Bacterial blood culture - 12/28/19 21:12 Bacterial blood culture NG NRG Complete urinalysis with reflex to cultu re - 12/28/19 23:14 Urine color determination YELLOW NRG Urine clarity determination CLEAR NR G Urine pH measurement by test strip 6.0 5-9 Specific gravity of urine by test strip 1.015 1.016-1.022 Urine protein assay by test strip, semi-quantitative NEGATIVE NEGATIVE Urine glucose detection by automated test strip NE GATIVE NEGATIVE Erythrocytes detection in urine sediment by light micr oscopy TRACE-L NEGATIVE Urine ketones detection by automated test strip NE GATIVE NEGATIVE Urine nitrite detection by test strip POSITIVE NEGATIVE Urine total bilirubin detection by test strip NEGA TIVE NEGATIVE Urine urobilinogen measurement by automated test strip (mass/volume) 1.0 mg/dL < = 1.0 Urine leukocyte esterase detection by dipstick 2+ NEGATIVE Automated urine sediment erythrocyte cou nt by microscopy (number/high power field) [HPF] NRG Automated urine sediment leukocyte count by microscopy (number/high power field) [HPF] NRG Bacteria detection in urine sediment by light microsco py LARGE NRG Squamous epithelial cells detection in u rine sediment by light microscopy RARE NRG Crystals detection in urine sediment by light microsco py NONE NRG Casts detection in urine sediment by light microscopy NONE NRG Mucus detection in urine sediment by light microscopy NEGATIVE NRG Complete urinalysis with reflex to culture YES NRG Bacterial urine culture - 12/28/19 23:14 Bacterial urine culture [id number] NRG COLONY COUNT >100,000/ML NRG FTX;REPORTABLE (NEW NOMENCLATURE IS KLEBSIELLA NRG FREE TEXT ENTRY 2 AEROGENES) NR FREE TEXT ENTRY 3 SUSCEPTIBILITY REPORTED 12/30/19 12:25 NRG Dirithromycin susceptibility test by dis k diffusion - 12/28/19 23:14 Gentamicin susceptibility test by minimum inhibitory c oncentration <= NRG Trimethoprim/sulfamethoxazole susceptibi lity test by minimum inhibitoryconcentration <= NRG Levofloxacin susceptibility test by minimum inhibitory concentration <= NRG Ampicillin susceptibility test by minimum inhibitory c oncentration > NRG Cefazolin susceptibility test by minimum inhibitory co ncentration > NRG Ceftriaxone susceptibility test by minimum inhibitory concentration 32 NRG Ciprofloxacin susceptibility test by minimum inhibitor y concentration <= NRG Meropenem susceptibility test by minimum inhibitory co ncentration <= NRG Nitrofurantoin susceptibility test by mi nimum inhibitory concentration 64 NRG Amoxicillin and clavulanate potassium susc KE > NRG Complete blood count (CBC) with automate d white blood cell (WBC) differential - 12/29/19 03:25 Blood leukocytes automated count (number/volume) 8.9 10*3/uL 4.3-11.0 Blood erythrocytes automated count (number/volume) 4.11 10*6/uL 4.35-5.85 Venous blood hemoglobin measurement (mass/volume) 10.9 g/dL 13.3-17.7 Blood hematocrit (volume fraction) 34 % 40-54 Automated erythrocyte mean corpuscular volume 82 [ foz_us] 80-99 Automated erythrocyte mean corpuscular h emoglobin (mass per erythrocyte) 27 pg 25-34 Automated erythrocyte mean corpuscular h emoglobin concentration measurement (mass/volume) 32 g/dL 32-36 Automated erythrocyte distribution width ratio 17. 2 % 10.0- 14.5 Automated blood platelet count (count/volume) 223 10*3/uL 130-400 Automated blood platelet mean volume measurement 10.0 [foz_us] 7.4-10.4 Automated blood neutrophils/100 leukocytes 75 % 42-75 Automated blood lymphocytes/100 leukocytes 14 % 12-44 Blood monocytes/100 leukocytes 10 % 0-12 Automated blood eosinophils/100 leukocytes 1 % 0-10 Automated blood basophils/100 leukocytes 0 % 0-10 Blood neutrophils automated count (number/volume) 6.7 10*3 1.8-7.8 Blood lymphocytes automated count (number/volume) 1.2 10*3 1.0-4.0 Blood monocytes automated count (number/volume) 0. 9 10*3 0.0-1.0 Automated eosinophil count 0.1 10*3/uL 0 .0-0.3 Automated blood basophil count (count/volume) 0.0 10*3/uL 0.0-0.1 Whole blood basic metabolic panel - 12/13 05/31 03:25 Serum or plasma sodium measurement (moles/volume) 136 mmol/L 135-145 Serum or plasma potassium measurement (moles/volume) 4.5 mmol/L 3.6-5.0 Serum or plasma chloride measurement (moles/volume) 105 mmol/L 98-107 Carbon dioxide 21 mmol/L 21-32 Serum or plasma anion gap determination (moles/volume) 10 mmol/L 5-14 Serum or plasma urea nitrogen measurement (mass/volume ) 14 mg/dL 7-18 Serum or plasma creatinine measurement (mass/volume) 0.91 mg/dL 0.60-1.30 Serum or plasma urea nitrogen/creatinine mass ratio 15 NRG Serum or plasma creatinine measurement w ith calculation of estimated glomerular filtration rate > NRG Serum or plasma glucose measurement (mass/volume) 158 mg/dL 70-105 Serum or plasma calcium measurement (mass/volume) 8.7 mg/dL 8.5-10.1 Serum or plasma phosphate measurement (m ass/volume) - 12/29/19 03:25 Serum or plasma phosphate measurement (mass/volume) 3.2 mg/dL 2.3-4.7 Magnesium - 12/29/19 03:25 Magnesium 1.8 mg/dL 1.6-2.4 Serum or plasma lithium measurement (mol es/volume) - 12/29/19 03:25 BNP PT 116.8 pg/mL <100.0 Serum or plasma troponin i.cardiac measu rement (mass/volume) - 12/29/19 03:25 Serum or plasma troponin i.cardiac measurement (mass/v olume) 0.259 ng/mL <0.028 Complete blood count (CBC) with automate d white blood cell (WBC) differential - 12/29/19 06:03 Blood leukocytes automated count (number/volume) 8.1 10*3/uL 4.3-11.0 Blood erythrocytes automated count (number/volume) 3.87 10*6/uL 4.35-5.85 Venous blood hemoglobin measurement (mass/volume) 10.3 g/dL 13.3-17.7 Blood hematocrit (volume fraction) 32 % 40-54 Automated erythrocyte mean corpuscular volume 81 [ foz_us] 80-99 Automated erythrocyte mean corpuscular h emoglobin (mass per erythrocyte) 27 pg 25-34 Automated erythrocyte mean corpuscular h emoglobin concentration measurement (mass/volume) 33 g/dL 32-36 Automated erythrocyte distribution width ratio 17. 1 % 10.0- 14.5 Automated blood platelet count (count/volume) 221 10*3/uL 130-400 Automated blood platelet mean volume measurement 10.0 [foz_us] 7.4-10.4 Automated blood neutrophils/100 leukocytes 77 % 42-75 Automated blood lymphocytes/100 leukocytes 11 % 12-44 Blood monocytes/100 leukocytes 11 % 0-12 Automated blood eosinophils/100 leukocytes 1 % 0-10 Automated blood basophils/100 leukocytes 0 % 0-10 Blood neutrophils automated count (number/volume) 6.3 10*3 1.8-7.8 Blood lymphocytes automated count (number/volume) 0.9 10*3 1.0-4.0 Blood monocytes automated count (number/volume) 0. 9 10*3 0.0-1.0 Automated eosinophil count 0.1 10*3/uL 0 .0-0.3 Automated blood basophil count (count/volume) 0.0 10*3/uL 0.0-0.1 Comprehensive metabolic panel - 12/29/19 06:03 Serum or plasma sodium measurement (moles/volume) 137 mmol/L 135-145 Serum or plasma potassium measurement (moles/volume) 4.1 mmol/L 3.6-5.0 Serum or plasma chloride measurement (moles/volume) 105 mmol/L 98-107 Carbon dioxide 23 mmol/L 21-32 Serum or plasma anion gap determination (moles/volume) 9 mmol/L 5-14 Serum or plasma urea nitrogen measurement (mass/volume ) 13 mg/dL 7-18 Serum or plasma creatinine measurement (mass/volume) 0.85 mg/dL 0.60-1.30 Serum or plasma urea nitrogen/creatinine mass ratio 15 NRG Serum or plasma creatinine measurement w ith calculation of estimated glomerular filtration rate > NRG Serum or plasma glucose measurement (mass/volume) 163 mg/dL 70-105 Serum or plasma calcium measurement (mass/volume) 8.5 mg/dL 8.5-10.1 Serum or plasma total bilirubin measurement (mass/volu me) 0.6 mg/dL 0.1-1.0 Serum or plasma alkaline phosphatase mark surement (enzymatic activity/volume) 120 U/L 40-136 Serum or plasma aspartate aminotransfera se measurement (enzymatic activity/volume) 14 U/L 5-34 Serum or plasma alanine aminotransferase measurement (enzymatic activity/volume) 17 U/L 0-55 Serum or plasma protein measurement (mass/volume) 6.1 g/dL 6.4-8.2 Serum or plasma albumin measurement (mass/volume) 3.3 g/dL 3.2-4.5 CALCIUM CORRECTED 9.1 mg/dL 8.5-10.1 Arterial blood gas measurement - 02/17/2 0 07:12 Blood pCO2 32 mm[Hg] 35-45 Blood pO2 61 mm[Hg] 79-93 Arterial blood bicarbonate measurement (moles/volume) 24 mmol/L 23-27 Arterial blood base excess by calculation 0.4 mmol /L -2.5-2.5 Arterial blood oxygen saturation measurement 93 % 94-100 * Inhaled oxygen flow rate ROOM AIR NRG Arterial blood pH measurement with patient temperature correction 7.48 7.37-7.43 Arterial blood carbon dioxide, total measurement (mole s/volume) 24.6 mmol/L 21.0-31.0 Body site LT RAD NRG Assessment of wrist artery patency prior to arterial p uncture YES-POS NRG Setting of ventilation mode NO NR G Measurement of body temperature 36.9 NRG Influenza virus A and B antigen detectio n - 12/29/19 20:40 FLU RESULT NEGATIVE FOR INFLUENZA A AND B ANTIGENS BY IA NRG Methicillin resistant Staphylococcus aur eus (MRSA) screening culture - 12/29/19 20:40 Methicillin resistant Staphylococcus aureus (MRSA) scr eening culture NEG NRG Complete blood count (CBC) with automate d white blood cell (WBC) differential - 12/30/19 03:15 Blood leukocytes automated count (number/volume) 7.7 10*3/uL 4.3-11.0 Blood erythrocytes automated count (number/volume) 3.67 10*6/uL 4.35-5.85 Venous blood hemoglobin measurement (mass/volume) 10.0 g/dL 13.3-17.7 Blood hematocrit (volume fraction) 30 % 40-54 Automated erythrocyte mean corpuscular volume 82 [ foz_us] 80-99 Automated erythrocyte mean corpuscular h emoglobin (mass per erythrocyte) 27 pg 25-34 Automated erythrocyte mean corpuscular h emoglobin concentration measurement (mass/volume) 33 g/dL 32-36 Automated erythrocyte distribution width ratio 17. 1 % 10.0- 14.5 Automated blood platelet count (count/volume) 204 10*3/uL 130-400 Automated blood platelet mean volume measurement 9.5 [foz_us] 7.4-10.4 Automated blood neutrophils/100 leukocytes 65 % 42-75 Automated blood lymphocytes/100 leukocytes 24 % 12-44 Blood monocytes/100 leukocytes 10 % 0-12 Automated blood eosinophils/100 leukocytes 1 % 0-10 Automated blood basophils/100 leukocytes 0 % 0-10 Blood neutrophils automated count (number/volume) 5.0 10*3 1.8-7.8 Blood lymphocytes automated count (number/volume) 1.8 10*3 1.0-4.0 Blood monocytes automated count (number/volume) 0. 8 10*3 0.0-1.0 Automated eosinophil count 0.1 10*3/uL 0 .0-0.3 Automated blood basophil count (count/volume) 0.0 10*3/uL 0.0-0.1 Comprehensive metabolic panel - 12/30/19 03:15 Serum or plasma sodium measurement (moles/volume) 139 mmol/L 135-145 Serum or plasma potassium measurement (moles/volume) 3.8 mmol/L 3.6-5.0 Serum or plasma chloride measurement (moles/volume) 105 mmol/L 98-107 Carbon dioxide 24 mmol/L 21-32 Serum or plasma anion gap determination (moles/volume) 10 mmol/L 5-14 Serum or plasma urea nitrogen measurement (mass/volume ) 12 mg/dL 7-18 Serum or plasma creatinine measurement (mass/volume) 0.82 mg/dL 0.60-1.30 Serum or plasma urea nitrogen/creatinine mass ratio 15 NRG Serum or plasma creatinine measurement w ith calculation of estimated glomerular filtration rate > NRG Serum or plasma glucose measurement (mass/volume) 159 mg/dL 70-105 Serum or plasma calcium measurement (mass/volume) 8.7 mg/dL 8.5-10.1 Serum or plasma total bilirubin measurement (mass/volu me) 0.6 mg/dL 0.1-1.0 Serum or plasma alkaline phosphatase mark surement (enzymatic activity/volume) 124 U/L 40-136 Serum or plasma aspartate aminotransfera se measurement (enzymatic activity/volume) 16 U/L 5-34 Serum or plasma alanine aminotransferase measurement (enzymatic activity/volume) 17 U/L 0-55 Serum or plasma protein measurement (mass/volume) 6.2 g/dL 6.4-8.2 Serum or plasma albumin measurement (mass/volume) 3.3 g/dL 3.2-4.5 CALCIUM CORRECTED 9.3 mg/dL 8.5-10.1 Serum or plasma phosphate measurement (m ass/volume) - 12/30/19 03:15 Serum or plasma phosphate measurement (mass/volume) 3.1 mg/dL 2.3-4.7 Magnesium - 12/30/19 03:15 Magnesium 2.0 mg/dL 1.6-2.4 Serum or plasma troponin i.cardiac measu rement (mass/volume) - 12/30/19 03:15 Serum or plasma troponin i.cardiac measurement (mass/v olume) 0.135 ng/mL <0.028 Lipid 1996 panel - 12/30/19 03:15 Serum or plasma triglyceride measurement (mass/volume) 181 mg/dL <150 Serum or plasma cholesterol measurement (mass/volume) 140 mg/dL < 200 Serum or plasma cholesterol in HDL measurement (mass/v olume) 34 mg/dL 40-60 Cholesterol in LDL [mass/volume] in serum or plasma by direct assay 77 mg/dL 1-129 Serum or plasma cholesterol in VLDL measurement (mass/ volume) 36 mg/dL 5-40 Serum or plasma lithium measurement (mol es/volume) - 12/30/19 03:15 BNP PT 225.7 pg/mL <100.0 Capillary blood glucose measurement by g lucometer (mass/volume) - 12/30/19 11:44 Capillary blood glucose measurement by glucometer (mas s/volume) 188 mg/dL 70-110 Capillary blood glucose measurement by g lucometer (mass/volume) - 12/30/19 15:55 Capillary blood glucose measurement by glucometer (mas s/volume) 155 mg/dL 70-110 Capillary blood glucose measurement by g lucometer (mass/volume) - 12/30/19 20:50 Capillary blood glucose measurement by glucometer (mas s/volume) 242 mg/dL 70-110 Capillary blood glucose measurement by g lucometer (mass/volume) - 12/31/19 05:14 Capillary blood glucose measurement by glucometer (mas s/volume) 164 mg/dL 70-110 Capillary blood glucose measurement by g lucometer (mass/volume) - 12/31/19 10:53 Capillary blood glucose measurement by glucometer (mas s/volume) 165 mg/dL 70-110 Capillary blood glucose measurement by g lucometer (mass/volume) - 12/31/19 15:53 Capillary blood glucose measurement by glucometer (mas s/volume) 158 mg/dL 70-110 Capillary blood glucose measurement by g lucometer (mass/volume) - 12/31/19 21:05 Capillary blood glucose measurement by glucometer (mas s/volume) 159 mg/dL 70-110 Capillary blood glucose measurement by g lucometer (mass/volume) - 01/01/20 05:32 Capillary blood glucose measurement by glucometer (mas s/volume) 172 mg/dL 70-110 Complete blood count (CBC) with automate d white blood cell (WBC) differential - 01/01/20 05:35 Blood leukocytes automated count (number/volume) 7.3 10*3/uL 4.3-11.0 Blood erythrocytes automated count (number/volume) 3.73 10*6/uL 4.35-5.85 Venous blood hemoglobin measurement (mass/volume) 9.9 g/dL 13.3-17.7 Blood hematocrit (volume fraction) 30 % 40-54 Automated erythrocyte mean corpuscular volume 82 [ foz_us] 80-99 Automated erythrocyte mean corpuscular h emoglobin (mass per erythrocyte) 27 pg 25-34 Automated erythrocyte mean corpuscular h emoglobin concentration measurement (mass/volume) 33 g/dL 32-36 Automated erythrocyte distribution width ratio 16. 7 % 10.0- 14.5 Automated blood platelet count (count/volume) 221 10*3/uL 130-400 Automated blood platelet mean volume measurement 9.3 [foz_us] 7.4-10.4 Automated blood neutrophils/100 leukocytes 69 % 42-75 Automated blood lymphocytes/100 leukocytes 21 % 12-44 Blood monocytes/100 leukocytes 9 % 0-12 Automated blood eosinophils/100 leukocytes 1 % 0-10 Automated blood basophils/100 leukocytes 0 % 0-10 Blood neutrophils automated count (number/volume) 5.0 10*3 1.8-7.8 Blood lymphocytes automated count (number/volume) 1.5 10*3 1.0-4.0 Blood monocytes automated count (number/volume) 0. 7 10*3 0.0-1.0 Automated eosinophil count 0.1 10*3/uL 0 .0-0.3 Automated blood basophil count (count/volume) 0.0 10*3/uL 0.0-0.1 Comprehensive metabolic panel - 01/01/20 05:35 Serum or plasma sodium measurement (moles/volume) 138 mmol/L 135-145 Serum or plasma potassium measurement (moles/volume) 4.4 mmol/L 3.6-5.0 Serum or plasma chloride measurement (moles/volume) 103 mmol/L 98-107 Carbon dioxide 24 mmol/L 21-32 Serum or plasma anion gap determination (moles/volume) 11 mmol/L 5-14 Serum or plasma urea nitrogen measurement (mass/volume ) 11 mg/dL 7-18 Serum or plasma creatinine measurement (mass/volume) 0.81 mg/dL 0.60-1.30 Serum or plasma urea nitrogen/creatinine mass ratio 14 NRG Serum or plasma creatinine measurement w ith calculation of estimated glomerular filtration rate > NRG Serum or plasma glucose measurement (mass/volume) 167 mg/dL 70-105 Serum or plasma calcium measurement (mass/volume) 8.9 mg/dL 8.5-10.1 Serum or plasma total bilirubin measurement (mass/volu me) 0.5 mg/dL 0.1-1.0 Serum or plasma alkaline phosphatase mark surement (enzymatic activity/volume) 128 U/L 40-136 Serum or plasma aspartate aminotransfera se measurement (enzymatic activity/volume) 22 U/L 5-34 Serum or plasma alanine aminotransferase measurement (enzymatic activity/volume) 29 U/L 0-55 Serum or plasma protein measurement (mass/volume) 6.6 g/dL 6.4-8.2 Serum or plasma albumin measurement (mass/volume) 3.3 g/dL 3.2-4.5 CALCIUM CORRECTED 9.5 mg/dL 8.5-10.1 Capillary blood glucose measurement by g lucometer (mass/volume) - 01/01/20 11:28 Capillary blood glucose measurement by glucometer (mas s/volume) 165 mg/dL 70-110 Capillary blood glucose measurement by g lucometer (mass/volume) - 01/01/20 16:04 Capillary blood glucose measurement by glucometer (mas s/volume) 158 mg/dL 70-110 Capillary blood glucose measurement by g lucometer (mass/volume) - 01/01/20 20:44 Capillary blood glucose measurement by glucometer (mas s/volume) 185 mg/dL 70-110 Capillary blood glucose measurement by g lucometer (mass/volume) - 01/02/20 05:54 Capillary blood glucose measurement by glucometer (mas s/volume) 161 mg/dL 70-110 Capillary blood glucose measurement by g lucometer (mass/volume) - 01/02/20 11:32 Capillary blood glucose measurement by glucometer (mas s/volume) 154 mg/dL 70-110 Capillary blood glucose measurement by g lucometer (mass/volume) - 01/02/20 16:19 Capillary blood glucose measurement by glucometer (mas s/volume) 144 mg/dL 70-110 Capillary blood glucose measurement by g lucometer (mass/volume) - 01/02/20 20:43 Capillary blood glucose measurement by glucometer (mas s/volume) 204 mg/dL 70-110 Capillary blood glucose measurement by g lucometer (mass/volume) - 01/03/20 05:16 Capillary blood glucose measurement by glucometer (mas s/volume) 155 mg/dL 70-110 Capillary blood glucose measurement by g lucometer (mass/volume) - 01/03/20 11:11 Capillary blood glucose measurement by glucometer (mas s/volume) 142 mg/dL 70-110 Capillary blood glucose measurement by g lucometer (mass/volume) - 01/03/20 16:00 Capillary blood glucose measurement by glucometer (mas s/volume) 181 mg/dL 70-110 Capillary blood glucose measurement by g lucometer (mass/volume) - 01/03/20 21:33 Capillary blood glucose measurement by glucometer (mas s/volume) 144 mg/dL 70-110 Capillary blood glucose measurement by g lucometer (mass/volume) - 01/04/20 06:06 Capillary blood glucose measurement by glucometer (mas s/volume) 143 mg/dL 70-110 Capillary blood glucose measurement by g lucometer (mass/volume) - 01/04/20 10:55 Capillary blood glucose measurement by glucometer (mas s/volume) 148 mg/dL 70-110 Capillary blood glucose measurement by g lucometer (mass/volume) - 01/04/20 16:00 Capillary blood glucose measurement by glucometer (mas s/volume) 182 mg/dL 70-110 Capillary blood glucose measurement by g lucometer (mass/volume) - 01/04/20 20:40 Capillary blood glucose measurement by glucometer (mas s/volume) 149 mg/dL 70-110 Complete blood count (CBC) with automate d white blood cell (WBC) differential - 01/05/20 06:35 Blood leukocytes automated count (number/volume) 6.0 10*3/uL 4.3-11.0 Blood erythrocytes automated count (number/volume) 3.88 10*6/uL 4.35-5.85 Venous blood hemoglobin measurement (mass/volume) 10.2 g/dL 13.3-17.7 Blood hematocrit (volume fraction) 32 % 40-54 Automated erythrocyte mean corpuscular volume 81 [ foz_us] 80-99 Automated erythrocyte mean corpuscular h emoglobin (mass per erythrocyte) 26 pg 25-34 Automated erythrocyte mean corpuscular h emoglobin concentration measurement (mass/volume) 32 g/dL 32-36 Automated erythrocyte distribution width ratio 16. 3 % 10.0- 14.5 Automated blood platelet count (count/volume) 219 10*3/uL 130-400 Automated blood platelet mean volume measurement 8.9 [foz_us] 7.4-10.4 Automated blood neutrophils/100 leukocytes 58 % 42-75 Automated blood lymphocytes/100 leukocytes 31 % 12-44 Blood monocytes/100 leukocytes 8 % 0-12 Automated blood eosinophils/100 leukocytes 3 % 0-10 Automated blood basophils/100 leukocytes 0 % 0-10 Blood neutrophils automated count (number/volume) 3.5 10*3 1.8-7.8 Blood lymphocytes automated count (number/volume) 1.8 10*3 1.0-4.0 Blood monocytes automated count (number/volume) 0. 5 10*3 0.0-1.0 Automated eosinophil count 0.2 10*3/uL 0 .0-0.3 Automated blood basophil count (count/volume) 0.0 10*3/uL 0.0-0.1 Comprehensive metabolic panel - 01/05/20 06:35 Serum or plasma sodium measurement (moles/volume) 140 mmol/L 135-145 Serum or plasma potassium measurement (moles/volume) 4.7 mmol/L 3.6-5.0 Serum or plasma chloride measurement (moles/volume) 102 mmol/L 98-107 Carbon dioxide 28 mmol/L 21-32 Serum or plasma anion gap determination (moles/volume) 10 mmol/L 5-14 Serum or plasma urea nitrogen measurement (mass/volume ) 11 mg/dL 7-18 Serum or plasma creatinine measurement (mass/volume) 0.83 mg/dL 0.60-1.30 Serum or plasma urea nitrogen/creatinine mass ratio 13 NRG Serum or plasma creatinine measurement w ith calculation of estimated glomerular filtration rate > NRG Serum or plasma glucose measurement (mass/volume) 142 mg/dL 70-105 Serum or plasma calcium measurement (mass/volume) 9.4 mg/dL 8.5-10.1 Serum or plasma total bilirubin measurement (mass/volu me) 0.3 mg/dL 0.1-1.0 Serum or plasma alkaline phosphatase mark surement (enzymatic activity/volume) 121 U/L 40-136 Serum or plasma aspartate aminotransfera se measurement (enzymatic activity/volume) 18 U/L 5-34 Serum or plasma alanine aminotransferase measurement (enzymatic activity/volume) 31 U/L 0-55 Serum or plasma protein measurement (mass/volume) 6.7 g/dL 6.4-8.2 Serum or plasma albumin measurement (mass/volume) 3.4 g/dL 3.2-4.5 CALCIUM CORRECTED 9.9 mg/dL 8.5-10.1 Capillary blood glucose measurement by g lucometer (mass/volume) - 01/05/20 06:35 Capillary blood glucose measurement by glucometer (mas s/volume) 145 mg/dL 70-110 Capillary blood glucose measurement by g lucometer (mass/volume) - 01/05/20 11:04 Capillary blood glucose measurement by glucometer (mas s/volume) 143 mg/dL 70-110 Capillary blood glucose measurement by g lucometer (mass/volume) - 01/05/20 15:45 Capillary blood glucose measurement by glucometer (mas s/volume) 172 mg/dL 70-110 Encounters ACCT No. Visit Date/Time Discharge Status Pt. Type Provider Facility Loc./Unit Complaint [id number] 11/03/2019 08:00:00 11/03/2019 23:59: 59 CLS Outpatient [facility]UN [facility]TE [facility] [id number] 06/02/2019 13:20:00 Document Registration [id number] 05/21/2019 08:20:00 Document Registration [id number] 10/21/2018 09:00:00 Document Registration [id number] 10/24/2017 10:10:00 Document Registration [id number] 02/17/2015 08:56:00 02/17/2015 23:59: 59 CLS Outpatient KUN ESCALANTE APRN [id number] 10/14/2014 15:46:00 10/14/2014 23:59: 59 CLS Outpatient AVA RAY KUN S [id number] 06/23/2014 09:13:00 06/23/2014 23:59: 59 CLS Outpatient AVA ALONZONKUN Belkis [id number] 04/22/2014 09:49:00 04/22/2014 23:59: 59 CLS Outpatient ANALISA JAMESON APRN [id number] 02/24/2014 14:17:00 02/24/2014 23:59: 59 CLS Outpatient AVA TENANT RELATIONS COORDINATORDESHAUNKUN S [id number] 09/18/2013 08:58:00 09/18/2013 23:59: 59 CLS Outpatient SEAN JACKSON DO [id number] 05/22/2013 12:51:00 05/22/2013 23:59: 59 CLS Outpatient AVA TENANT RELATIONS COORDINATORDESHAUNKUN S [id number] 01/01/2013 15:23:00 01/01/2013 23:59: 59 CLS Outpatient KUN ESCALANTE APRN [id number] 09/17/2012 09:05:00 09/17/2012 23:59: 59 CLS Outpatient AVA TENANT RELATIONS COORDINATORDESHAUNKUN Belkis [id number] 09/06/2012 09:09:00 09/06/2012 23:59:5 9 CLS Outpatient AVA TENANT RELATIONS COORDINATORDESHAUNKUN Belkis [id number] 05/05/2013 09:08:00 Document Registration [id number] 01/01/2020 08:02:00 23:59:59 CLS Outpatient MORGAN CORREA MD [facility] SDC URINARY RETENTION [id number] 12/28/2019 16:59:00 10:55:00 DIS Inpatient SPENCER DO, MANPREET V [facility] ICU SOA [id number] 2019 12:40:00 13:45:00 DIS Inpatient SPENCER DO, MANPREET V [facility] IRF DEBILITY [id number] 08/17/2019 18:00:00 12:46:00 DIS Inpatient SPENCER DO MANPREET V [facility] 4TH UTI,SEPTIC SHOCK,ELEVAT ED TROPONIN [id number] 06/22/2019 21:09:00 00:30:00 DIS Emergency DONALD GOOD, LEILANI Osei [facility] ER FS FALL [id number] 06/12/2019 08:21:00 23:59:59 CLS Outpatient KUN ESCALANTE [facility] RAD LUMBAR BACK PAIN W/ RA DICULOPATHY AFFECTING RLE [id number] 04/23/2019 11:48:00 17:59:00 DIS Emergency PILY GOOD, COBY Adamson [facility] ER LEG/GROIN PAIN [id number] 12/26/2019 14:45:[address] Inpatient MANPREET SPENCER DO [facility] IRF SCD-NON TRAUMATIC
[2020-01-05] MEDS: DIAZEPAM 5 MG (VALIUM) TABLET PO PRN (18:52)
[2020-01-05 20:21] VITALS: BP 119/82
[2020-01-06] MEDS: oxyCODONE/APAP 7.5-325 MG (PERCOCET 7.5) TABLET PO PRN ×2 (02:46→11:49)
[2020-01-06 04:00] VITALS: BP 144/78
[2020-01-06] MEDS: CATHETER FLUSH 10 ML SYR IV SCH (05:50)
[2020-01-06] MEDS: inSUlin ASPART (NovoLOG) 1 UNIT/0.01 ML (CHARGE PER UNIT) SC SCH ×2 (05:50→11:01)
--- NOTE | 2020-01-06 08:12 | Cardiology Progress Note ---
Subjective Date Seen by Provider: Jan 06, 2020 Time Seen by Provider: 08:13 Subjective/Events-last exam Patient is sitting up in chair, no new complaints. Denies any chest pain or dyspnea. Review of Systems General: No Chills, No Night Sweats, No Fatigue, No Malaise, No Appetite, No Other HEENT: No Head Aches, No Visual Changes, No Eye Pain, No Ear Pain, No Dysphasia, No Sinus Congestion, No Post Nasal Drip, No Sore Throat, No Other Pulmonary: No Dyspnea, No Cough, No Pleuritic Chest Pain, No Other Cardiovascular: No: Chest Pain, Palpitations, Orthopnea, Paroxysmal Noc. Dyspnea, Edema, Lt Headedness, Other Objective-Cardiology Exam Last Set of Vital Signs Vital Signs 01/01/20 01/06/20 20:30 04:00 Temp 36.5 Pulse 56 Resp 20 B/P (MAP) 144/78 (100) Pulse Ox 93 O2 Delivery Room Air O2 Flow Rate 2.00 Capillary Refill : Less Than 3 Seconds I&O Intake and Output 01/06/20 00:00 Intake Total 1450 ml Balance 1450 ml Intake Oral 1450 ml # Voids 7 General: Alert, Oriented X3, Cooperative HEENT: Atraumatic, PERRLA Neck: Supple, No JVD, No Thyromegaly Lungs: Clear to Auscultation, Normal Air Movement Heart: Regular Rate, Normal S1, Normal S2, No Murmurs Abdomen: Normal Bowel Sounds, Soft, No Tenderness, No Hepatosplenomegaly, No Masses Extremities: Other (trace edema BLE) Skin: No Rashes, No Significant Lesion Neuro: Normal Speech Results Lab Laboratory Tests Test 01/05/20 11:04 01/05/20 15:45 01/05/20 21:23 01/06/20 05:47 Range/Units Glucometer 143 H 172 H 167 H 157 H 70-110 MG/DL A/P-Cardiology Admission Diagnosis CAD Acute respiratory failure CHF elevated troponin, type II TX Assessment/Plan Coronary artery disease, history of cardiac catheterization with stenting in July 2009 and then another cardiac catheterization with 3 stents done earlier this month, continue on aspirin and Plavix without interruption. Hypotension- improved, tolerating medications well. Continue to monitor. Status post acute respiratory failure, currently back to baseline, having shortness of breath. Continue to monitor Congestive heart failure, chronic compensated left ventricular systolic dysfunction, ischemic cardiomyopathy, echocardiogram showed ejection fraction 40-45 percent which is significant improvement compared to the previous study. Maintained on beta maximo, ARB, continue to monitor. Mild elevation in troponin, probably type II TX secondary to hypoxemia and h ypotension, trending down. Continue to monitor Status post C-spine surgery, recovering slowly Hyperlipidemia maintained on Lipitor Bipolar disorder, managed by primary care physician Patient was seen and evaluated with Voila, examination performed, management plan was discussed, agree with the current scribed note, I made few changes to the note using Italic font Patient is sitting in a chair, comfortable, asking to go home, feeling better, no new complaint Lungs were clear to auscultation, heart is regular Continue on current medication Okay for discharge from cardiology standpoint Clinical Quality Measures DVT/VTE Risk/Contraindication: Risk Factor Score Per Nursin RFS Level Per Nursing on Admit: 4+=Very High [facility] Jan 06, 2020 8:12 am ALINA GREGG MD Jan 06, 2020 8:38 am
[2020-01-06] MEDS: PREGABALIN 150 MG (LYRICA) CAPSULE PO SCH (08:29)
[2020-01-06] MEDS: DIVALPROEX 500 MG DELAYED RELEASE (DEPAKOTE) TAB PO SCH (08:29)
[2020-01-06] MEDS: AMIODARONE 200 MG (CORDARONE) TAB PO SCH (08:29)
[2020-01-06] MEDS: SERTRALINE 100 MG (ZOLOFT) TAB PO SCH (08:29)
[2020-01-06] MEDS: ASPIRIN 81 MG CHEW (CHILDREN'S ASA) PO SCH (08:29)
[2020-01-06] MEDS: PANTOPRAZOLE 40 MG (PROTONIX) TAB PO SCH (08:30)
[2020-01-06] MEDS: CLOPIDOGREL 75 MG (PLAVIX) TABLET PO SCH (08:30)
[2020-01-06] MEDS: rOPINIRole 0.25 MG (REQUIP) TAB PO SCH (08:33)
[2020-01-06] MEDS: ZINC OXIDE 16% OINT (BUTT PASTE) 113 GM TUBE TOP SCH (08:34)
[2020-01-06] MEDS: polyethylene glycoL POWDER 17 GM (MIRALAX) PACK PO SCH (08:34)
[2020-01-06] MEDS: SENNA W/DOCUSATE (SENOKOT S) TABLET PO SCH (08:34)
[2020-01-06] MEDS: VRAYLAR 1.5 MG CAPSULE PO SCH (08:35)
[2020-01-06] MEDS ORDERED: AMIO200T4 PO (08:55)
[2020-01-06] MEDS ORDERED: OXYC1TAB16 PO (08:55)
[2020-01-06] MEDS ORDERED: ZINC28PA TOP (08:55)
[2020-01-06] MEDS ORDERED: CARV3.122 PO (08:55)
[2020-01-06] MEDS ORDERED: SENN-20 PO (08:55)
[2020-01-06] MEDS ORDERED: TMSL.4C PO (08:55)
[2020-01-06] MEDS ORDERED: DIAZ5TAB49 PO (08:55)
--- NOTE | 2020-01-06 08:57 | D/C HH Face to Face Order ---
D/C Face to Face Orders Reconcile Patient Problems Problems Reviewed?: Yes Instructions for Patient Via [facility], Patient Instructions/FollowUp: [facility] 1 week Physician to follow Patient: [facility] Discharge Diet for Home: Cardiac Diet Patient Problems: Cervical spine surgery CAD Goals for Patient: Jensen Patient Data-Allergies,Ht & Wt Patient Allergies: Coded Allergies: No Known Drug Allergies (Unverified , 04/23/19) Height (Feet): 5 Height (Inches): 8.00 Weight (Pounds): 255 Home Health Need/Face to Face Date of Face to Face: Jan 06, 2020 Clinical Findings: Generalized weakness and fatigue, Instability, Muscle weakness, Unsteady gait I have seen Pt [id number]: Yes Discharged To: Home Diagnosis/Conditions: Cervical spine surgery CAD Patient is Homebound due to: Kelle fall risk due to instabilty, Muscle weakness, Pain w/ambulation Homebound Status Due to the above stated illness, injury or surgical procedure (medical condition or diagnosis) and associated clinical findings, the patient is homebound because of his/her inability to leave home except with aid of a supportive device and/or person AND leaving the home requires a considerable and taxing effort or is medically contraindicated. Pt req the following assistanc: [facility] Nursing Orders Home Health Services Order: Nursing Services, Tractor Trailer Technician-Evaluate & Treat, Physical Therapy-Evaluate & Treat Certify Stmt I certify that this patient is under my care and that I, a nurse practitioner or a physician; a assistant professor of economics working with me, had a face to face encounter that - meets the physician face to face encounter requirements with this patient as dated. MANPREET SPENCER DO Jan 06, 2020 08:57
[2020-01-06] MEDS: CARVEDILOL 3.125 MG (COREG) TABLET PO SCH (10:01)
[2020-01-06] MEDS: LOSARTAN 25 MG (COZAAR) TAB PO SCH (10:02)
[2020-01-06 10:03] VITALS: BP 99/62
--- NOTE | 2020-01-06 10:30 | Occupational Ther Daily Note ---
OT Current Status-Daily Note Subjective Pt alert, sitting in recliner. Pt agrees to therapy. No c/o pain. Mental Status/Objective Patient Orientation: Person, Place, Time, Situation Attachments: IV (midline) ADL-Treatment Pt agrees to shower. Therapy Code Descriptions/Definitions Functional Bradley Measure: 0=Not Assessed/NA 4=Minimal Assistance 1=Total Assistance 5=Supervision or Setup 2=Maximal Assistance 6=Modified Bradley 3=Moderate Assistance 7=Complete IndependenceSCALE: Activities may be completed with or without assistive devices. 3-Ccrlqvlvbo-zqnkfim completes the activity by him/herself with no assistance from a helper. 5-Set-up or Clean-up Assistance-helper sets up or cleans up; patient completes activity. [place] assists only prior to or following the activity. 4-Supervision or Touching Assistance-helper provides verbal cues and/or touching/steadying and/or contact guard assistance as patient completes activity. Assistance may be provided throughout the activity or intermittently. 3-Partial/Moderate Assistance-helper does LESS THAN HALF the effort. [place] lifts, holds or supports trunk or limbs, but provides less than half the effort. 2-Substantial/Maximal Assistance-helper does MORE THAN HALF the effort. [place] lifts or holds trunk or limbs and provides more than half the effort. 6-Hdnyrxhvl-stxcrg does ALL the effort. Patient does none of the effort to complete the activity. Or, the assistance of 2 or more helpers is required for the patient to complete the activity. If activity was not attempted, code reason: 7-Patient Refused. 9-Not Applicable-not attempted and the patient did not perform the activity before the current illness, exacerbation or injury. 10-Not Attempted due to Environmental Limitations-(lack of equipment, weather restraints, etc.). 88-Not Attempted due to Medical Conditions or Safety Concerns. Eating (QC): 5 (Pt has decreased pinch strength. Assist to open packages needed and uses built up handles on utensils to eat.) Oral Hygiene (QC): 6 (Pt able to complete own oral hygiene sitting at sink.) Bathing Location: L Arm, R Arm, L Upper Leg, R Upper Leg, L Lower Leg (including foot), R Lower Leg (including foot), Chest, Abdomen, Buttocks, Perineal Area Shower/Bathe Self (QC): 6 (Safety concerns due to decreased activity tolerance. Pt able to use AE to complete shower in sitting and grabbars to stabilize self in standing.) Upper Body Dressing (QC): 3 (Decreased B shldr ROM hinders pt to pull shirt around shoulders or over head. Pt able to thread UE's through sleeves and pull shirt down.) Lower Body Dressing (QC): 5 (After set up, pt able to don/doff pants.) On/Off Footwear: 6 (Pt doffs socks by self and uses sock aide to don socks. Pt has slip on shoes.) Toileting Hygiene (QC): 6 (Per pt report, pt is able to cleanse self after BM. Able to manipulate clothing using FWW and grabbars to stabilize.) Toilet Transfer (QC): 6 (Using FWW and grabbars to complete transfer.) Other Treatment Pt completes resistive pegs (25 each hand). After therapy, pt sitting in recliner with call light/phone in reach. All needs met. OT Short Term Goals Short Term Goals Time Frame: Jan 09, 2020 Eatin Oral hygiene: 4 Toileting hygiene: 3 Shower/bathe self: 3 Upper body dressin Lower body dressin OT Metal Engineering Process Worker Goals Nursing Home Goals Time Frame: Jan 23, 2020 Eating (QC): 5 (met) Oral Hygiene (QC): 5 (met) Toileting Hygiene (QC): 4 (met) Shower/Bathe Self (QC): 4 (met) Upper Body Dressing (QC): 5 (not met) Lower Body Dressing (QC): 5 (met) On/Off Footwear (QC): 5 (met) Additional Goals: 1-Demonstrate ADL Tasks, 2-Verbalize Understanding, 3- ImproveStrength/Melva 1=Demonstrate adherence to instructed precautions during ADL tasks. 2=Patient will verbalize/demonstrate understanding of assistive devices/modifications for ADL. 3=Patient will improve strength/tolerance for activity to enable patient to perform ADL's. OT Education/Plan Problem List/Assessment Assessment: Decreased Activ Tolerance, Decreased UE Strength, Impaired Self- Care Skills, Restricted Funct UE ROM Discharge Recommendations Plan/Recommendations: Discharge/Goals Met Treatment Plan/Plan of Care Patient would benefit from OT for education, treatment and training to promote independence in ADL's, mobility, safety and/or upper extremity function for ADL's. Plan of Care: ADL Retraining, Functional Mobility, Group Exercise/Act as Ind, UE Funct Exercise/Act, UE Neuromus Re-Ed/Coord Treatment Duration: Jan 23, 2020 Frequency: At least 5 of 7 days/Wk (IRF) Estimated Hrs Per Day: 1.5 hours per day Agreement: Yes Rehab Potential: Fair Time/GCodes Start Time: 09:05 Stop Time: 10:20 Total Time Billed (hr/min): 75 Billed Treatment Time 1 visit-ADL 4 (65 min) EX 1 (10 min) TEDDY HAWKINS Jan 06, 2020 10:30
--- NOTE | 2020-01-06 10:57 | NUR ---
PER DR. CRISTINO FOX TO DC HOME TODAY. INFORMED OF LOW BP THIS AM. 99/62. ORDERS TO F/U WITH DR. CANALES.
--- NOTE | 2020-01-06 11:14 | Speech Therapy Daily Note ---
Speech Daily Progress Note Subjective Date Seen by Provider: Jan 06, 2020 Time Seen by Provider: 11:45 Patient was alert, upbeat, and cooperative for all therapy tasks. Patient reported that his current regular diet is going very well and did not have any issues with dinner and breakfast. Objective Patient tolerated least restrictive diet with 90% accuracy and minimal cues. Patient completed compensatory strategies with 90% accuracy with minimal cues. Assessment Assessment Current Status: Excellent Progress Treatment Plan Discontinue ST, Goals Met Speech Short Term Goals Short Term Goals Short Term Goals 1. Patient will tolerate least restrictive diet without s/s of aspiration at 90% or greater. 2. Patient/caregiver will utilize compensatory strategies as trained at 90% with minimal cues. Speech Appliance Fixer Goals Appliance Fixer Goals Patient will maintain adequate nutrition/hydration via safe and effective swallow function. Speech-Plan Patient/Family Goals Patient/Family Goals: Patient reported that he wishes to return home to prior level of mobility and independence. Treatment Plan Speech Therapy Treatment Plan: Discontinue ST Treatment Duration: Jan 09, 2020 Frequency: 4 times per week (4-5x per week) Estimated Hrs Per Day: .5 hour per day Rehab Potential: Fair Barriers to Learning: None identified Pt/Family Agrees to Plan: Yes Safety Risks/Education Teaching Recipient: Patient Teaching Methods: Demonstration Response to Teaching: Verbalize Understanding Education Topics Provided: Continued utilization of compensatory strategies to promote safe and effective oral intake. Time Speech Therapy Time In: 11:45 Speech Therapy Time Out: 11:55 Total Billed Time: 10 Billed Treatment Time 1, SLTS No QUALITY CODES EXPRESSION OF IDEAS/WANTS: 4 UNDERSTANDING VERBAL CONTENT: 4 BRIEF INTERVIEW OF MENTAL STATUS: YES REPETITION OF 3 WORDS: YES TEMPORAL ORIENTATION OF DAY: CORRECT, MONTH: CORRECT, DAY: CORRECT RECALL OF SOCK: YES, COLOR: YES, BED: YES MEMORY/RECALL ABILITY OF CURRENT SEASON, ROOM NUMBER, AND THAT HE IS IN THE HOSPITAL [facility] Jan 06, 2020 11:14
--- NOTE | 2020-01-06 11:16 | Discharge Summary ---
Diagnosis/Chief Complaint Date of Admission Dec 26, 2019 at 14:45 Date of Discharge Discharge Date: Jan 06, 2020 Discharge Diagnosis Assessment: Debility Bilateral bibasilar PNA placed on Vanc and Meropenem and Diflucan and moved to ICU x 2 days now DC abx h/o septic shock 08/2019 s/p central cervical spinal cord syndrome resulting in chronic debility and weakness s/p decompression per [facility] NSG h/o UTI CAD s/p stents 12/18/19 Dr Lovelace after cardiac arrest Ischemic cardiomyopathy previous Lifevest worn Tendency for volume overload Chronic edema Bipolar disorder Urinary retention now resolved cysto normal Plan: Home meds Appreciate cardiology and pulmonology and urology Monitor volume status Inpatient rehabilitation protocol Abx completed DC? (1) Central cord syndrome (2) Spinal cord compression (3) Former smoker (4) Bipolar disorder (5) Delirium (6) Edema (7) Wheelchair bound (8) DAISY on CPAP (9) CAD (coronary artery disease) (10) CHF (congestive heart failure) (11) UTI (urinary tract infection) (12) Debility Status: Acute (13) Sacral pressure ulcer Discharge Summary Discharge Physical Examination Allergies: Coded Allergies: No Known Drug Allergies (Unverified , 04/23/19) Vitals & I&Os Vital Signs Date Time Temp Pulse Resp B/P (MAP) Pulse Ox O2 Delivery O2 Flow Rate FiO2 01/06/20 12:48 36.5 72 20 112/53 93 Room Air 01/01/20 20:30 2.00 General Appearance: Alert, Oriented X3, Cooperative Respiratory: Clear to Auscultation Cardiovascular: Regular Rate Neuro: Normal Gait, Normal Speech, Strength at 5/5 X4 Ext Hospital Course Was the Problem List Reviewed?: Yes Hospital Course: Pt had an uneventful but lengthy hospital course for 12 days after a significant cervical spine surgery and complicated with cardiac arrest and CPR for 45 minutes. Cardiac stents placed. Pt did require ICU transfer for two days for IV antibiotics Meropenem, Diflucan, Vanc were maintained until completed. Overall pt participated in all therapy. He was strong enough and safe enough to go home with home health and will be maintained on pain medication of Valium to complete his treatment course and will be close follow up with Elizabeth Marshall at [facility]. Labs (last 24 hrs) Laboratory Tests 12/27/19 06:12: White Blood Count 10.0, Red Blood Count 4.77, Hemoglobin 12.5L, Hematocrit 38L, Mean Corpuscular Volume 81, Mean Corpuscular Hemoglobin 26, Mean Corpuscular Hemoglobin Concent 33, Red Cell Distribution Width 17.4H, Platelet Count 284, Mean Platelet Volume 10.4, Neutrophils (%) (Auto) 75, Lymphocytes (%) (Auto) 15, Monocytes (%) (Auto) 10, Eosinophils (%) (Auto) 1, Basophils (%) (Auto) 0, Neutrophils # (Auto) 7.5, Lymphocytes # (Auto) 1.5, Monocytes # (Auto) 1.0, Eosinophils # (Auto) 0.1, Basophils # (Auto) 0.0, Sodium Level 138, Potassium Level 4.3, Chloride Level 106, Carbon Dioxide Level 19L, Anion Gap 13, Blood Urea Nitrogen 19H, Creatinine 1.23, Estimat Glomerular Filtration Rate > 60, BUN/Creatinine Ratio 15, Glucose Level 229H, Calcium Level 9.2, Corrected Calcium 9.3, Total Bilirubin 0.5, Aspartate Amino Transf (AST/SGOT) 21, Alanine Aminotransferase (ALT/SGPT) 24, Alkaline Phosphatase 140H, Total Protein 7.0, Albumin 3.9 12/27/19 15:51: Glucometer 170H 12/27/19 20:15: Glucometer 220H 12/28/19 06:15: Glucometer 181H 12/28/19 10:53: Glucometer 153H 12/28/19 16:08: Glucometer 183H 12/28/19 16:47: Blood Gas Puncture Site RT RAD, Blood Gas Patient Temperature 36.6, Arterial Bl ood pH 7.40, Arterial Blood Partial Pressure CO2 39, Arterial Blood Partial Pressure O2 68L, Arterial Blood HCO3 24, Arterial Blood Total CO2 24.9, Arterial Blood Oxygen Saturation 95, Arterial Blood Base Excess -0.5, Balwinder Test POS, B lood Gas Ventilator Setting NO, Blood Gas Inspired Oxygen 3L 12/28/19 17:30: Glucometer 173H 12/29/19 06:03: White Blood Count 8.1, Red Blood Count 3.87L, Hemoglobin 10.3L, Hematocrit 32L, Mean Corpuscular Volume 81, Mean Corpuscular Hemoglobin 27, Mean Corpuscular Hemoglobin Concent 33, Red Cell Distribution Width 17.1H, Platelet Count 221, Mean Platelet Volume 10.0, Neutrophils (%) (Auto) 77H, Lymphocytes (%) (Auto) 11L, Monocytes (%) (Auto) 11, Eosinophils (%) (Auto) 1, Basophils (%) (Auto) 0, Neutrophils # (Auto) 6.3, Lymphocytes # (Auto) 0.9L, Monocytes # (Auto) 0.9, Eosinophils # (Auto) 0.1, Basophils # (Auto) 0.0, Sodium Level 137, Potassium Level 4.1, Chloride Level 105, Carbon Dioxide Level 23, Anion Gap 9, Blood Urea Nitrogen 13, Creatinine 0.85, Estimat Glomerular Filtration Rate > 60, BUN/Creatinine Ratio 15, Glucose Level 163H, Calcium Level 8.5, Corrected Calcium 9.1, Total Bilirubin 0.6, Aspartate Amino Transf (AST/SGOT) 14, Alanine Aminotransferase (ALT/SGPT) 17, Alkaline Phosphatase 120, Total Protein 6.1L, Albumin 3.3 12/30/19 11:44: Glucometer 188H 12/30/19 15:55: Glucometer 155H 12/30/19 20:50: Glucometer 242H 12/31/19 05:14: Glucometer 164H 12/31/19 10:53: Glucometer 165H 12/31/19 15:53: Glucometer 158H 12/31/19 21:05: Glucometer 159H 01/01/20 05:32: Glucometer 172H 01/01/20 05:35: White Blood Count 7.3, Red Blood Count 3.73L, Hemoglobin 9.9L, Hematocrit 30L, Mean Corpuscular Volume 82, Mean Corpuscular Hemoglobin 27, Mean Corpuscular Hemoglobin Concent 33, Red Cell Distribution Width 16.7H, Platelet Count 221, Mean Platelet Volume 9.3, Neutrophils (%) (Auto) 69, Lymphocytes (%) (Auto) 21, Monocytes (%) (Auto) 9, Eosinophils (%) (Auto) 1, Basophils (%) (Auto) 0, Neutrophils # (Auto) 5.0, Lymphocytes # (Auto) 1.5, Monocytes # (Auto) 0.7, Eosinophils # (Auto) 0.1, Basophils # (Auto) 0.0, Sodium Level 138, Potassium Level 4.4, Chloride Level 103, Carbon Dioxide Level 24, Anion Gap 11, Blood Urea Nitrogen 11, Creatinine 0.81, Estimat Glomerular Filtration Rate > 60, BUN/Creatinine Ratio 14, Glucose Level 167H, Calcium Level 8.9, Corrected Calcium 9.5, Total Bilirubin 0.5, Aspartate Amino Transf (AST/SGOT) 22, Alanine Aminotransferase (ALT/SGPT) 29, Alkaline Phosphatase 128, Total Protein 6.6, Albumin 3.3 01/01/20 11:28: Glucometer 165H 01/01/20 16:04: Glucometer 158H 01/01/20 20:44: Glucometer 185H 01/02/20 05:54: Glucometer 161H 01/02/20 11:32: Glucometer 154H 01/02/20 16:19: Glucometer 144H 01/02/20 20:43: Glucometer 204H 01/03/20 05:16: Glucometer 155H 01/03/20 11:11: Glucometer 142H 01/03/20 16:00: Glucometer 181H 01/03/20 21:33: Glucometer 144H 01/04/20 06:06: Glucometer 143H 01/04/20 10:55: Glucometer 148H 01/04/20 16:00: Glucometer 182H 01/04/20 20:40: Glucometer 149H 01/05/20 06:35: Glucometer 145H, White Blood Count 6.0, Red Blood Count 3.88L, Hemoglobin 10.2L, Hematocrit 32L, Mean Corpuscular Volume 81, Mean Corpuscular Hemoglobin 26, Mean Corpuscular Hemoglobin Concent 32, Red Cell Distribution Width 16.3H, Platelet Count 219, Mean Platelet Volume 8.9, Neutrophils (%) (Auto) 58, Lymphocytes (%) (Auto) 31, Monocytes (%) (Auto) 8, Eosinophils (%) (Auto) 3, Basophils (%) (Auto) 0, Neutrophils # (Auto) 3.5, Lymphocytes # (Auto) 1.8, Monocytes # (Auto) 0.5, Eosinophils # (Auto) 0.2, Basophils # (Auto) 0.0, Sodium Level 140, Potassium Level 4.7, Chloride Level 102, Carbon Dioxide Level 28, Anion Gap 10, Blood Urea Nitrogen 11, Creatinine 0.83, Estimat Glomerular Filtration Rate > 60, BUN/Creatinine Ratio 13, Glucose Level 142H, Calcium Level 9.4, Corrected Calcium 9.9, Total Bilirubin 0.3, Aspartate Amino Transf (AST/SGOT) 18, Alanine Aminotransferase (ALT/SGPT) 31, Alkaline Phosphatase 121, Total Protein 6.7, Albumin 3.4 01/05/20 11:04: Glucometer 143H 01/05/20 15:45: Glucometer 172H 01/05/20 21:23: Glucometer 167H 01/06/20 05:47: Glucometer 157H 01/06/20 10:48: Glucometer 160H Pending Labs Laboratory Tests 12/27/19 06:12: White Blood Count 10.0, Red Blood Count 4.77, Hemoglobin 12.5, Hematocrit 38, Mean Corpuscular Volume 81, Mean Corpuscular Hemoglobin 26, Mean Corpuscular Hemoglobin Concent 33, Red Cell Distribution Width 17.4, Platelet Count 284, Mean Platelet Volume 10.4, Neutrophils (%) (Auto) 75, Lymphocytes (%) (Auto) 15, Monocytes (%) (Auto) 10, Eosinophils (%) (Auto) 1, Basophils (%) (Auto) 0, Neutrophils # (Auto) 7.5, Lymphocytes # (Auto) 1.5, Monocytes # (Auto) 1.0, Eosinophils # (Auto) 0.1, Basophils # (Auto) 0.0, Sodium Level 138, Potassium Level 4.3, Chloride Level 106, Carbon Dioxide Level 19, Anion Gap 13, Blood Urea Nitrogen 19, Creatinine 1.23, Estimat Glomerular Filtration Rate > 60, BUN/Creatinine Ratio 15, Glucose Level 229, Calcium Level 9.2, Corrected Calcium 9.3, Total Bilirubin 0.5, Aspartate Amino Transf (AST/SGOT) 21, Alanine Aminotransferase (ALT/SGPT) 24, Alkaline Phosphatase 140, Total Protein 7.0, Albumin 3.9 12/27/19 15:51: Glucometer 170 12/27/19 20:15: Glucometer 220 12/28/19 06:15: Glucometer 181 12/28/19 10:53: Glucometer 153 12/28/19 16:08: Glucometer 183 12/28/19 16:47: Blood Gas Puncture Site RT RAD, Blood Gas Patient Temperature 36.6, Arterial Blood pH 7.40, Arterial Blood Partial Pressure CO2 39, Arterial Blood Partial Pressure O2 68, Arterial Blood HCO3 24, Arterial Blood Total CO2 24.9, Arterial Blood Oxygen Saturation 95, Arterial Blood Base Excess -0.5, Balwinder Test POS, Blood Gas Ventilator Setting NO, Blood Gas Inspired Oxygen 3L 12/28/19 17:30: Glucometer 173 12/29/19 06:03: White Blood Count 8.1, Red Blood Count 3.87, Hemoglobin 10.3, Hematocrit 32, Mean Corpuscular Volume 81, Mean Corpuscular Hemoglobin 27, Mean Corpuscular Hemoglobin Concent 33, Red Cell Distribution Width 17.1, Platelet Count 221, Mean Platelet Volume 10.0, Neutrophils (%) (Auto) 77, Lymphocytes (%) (Auto) 11, Monocytes (%) (Auto) 11, Eosinophils (%) (Auto) 1, Basophils (%) (Auto) 0, Neutrophils # (Auto) 6.3, Lymphocytes # (Auto) 0.9, Monocytes # (Auto) 0.9, Eosinophils # (Auto) 0.1, Basophils # (Auto) 0.0, Sodium Level 137, Potassium Level 4.1, Chloride Level 105, Carbon Dioxide Level 23, Anion Gap 9, Blood Urea Nitrogen 13, Creatinine 0.85, Estimat Glomerular Filtration Rate > 60, BUN/Creatinine Ratio 15, Glucose Level 163, Calcium Level 8.5, Corrected Calcium 9.1, Total Bilirubin 0.6, Aspartate Amino Transf (AST/SGOT) 14, Alanine Aminotransferase (ALT/SGPT) 17, Alkaline Phosphatase 120, Total Protein 6.1, Albumin 3.3 12/30/19 11:44: Glucometer 188 12/30/19 15:55: Glucometer 155 12/30/19 20:50: Glucometer 242 12/31/19 05:14: Glucometer 164 12/31/19 10:53: Glucometer 165 12/31/19 15:53: Glucometer 158 12/31/19 21:05: Glucometer 159 01/01/20 05:32: Glucometer 172 01/01/20 05:35: White Blood Count 7.3, Red Blood Count 3.73, Hemoglobin 9.9, Hematocrit 30, Mean Corpuscular Volume 82, Mean Corpuscular Hemoglobin 27, Mean Corpuscular Hemoglobin Concent 33, Red Cell Distribution Width 16.7, Platelet Count 221, Mean Platelet Volume 9.3, Neutrophils (%) (Auto) 69, Lymphocytes (%) (Auto) 21, Monocytes (%) (Auto) 9, Eosinophils (%) (Auto) 1, Basophils (%) (Auto) 0, Neutrophils # (Auto) 5.0, Lymphocytes # (Auto) 1.5, Monocytes # (Auto) 0.7, Eosinophils # (Auto) 0.1, Basophils # (Auto) 0.0, Sodium Level 138, Potassium Level 4.4, Chloride Level 103, Carbon Dioxide Level 24, Anion Gap 11, Blood Urea Nitrogen 11, Creatinine 0.81, Estimat Glomerular Filtration Rate > 60, BUN/Creatinine Ratio 14, Glucose Level 167, Calcium Level 8.9, Corrected Calcium 9.5, Total Bilirubin 0.5, Aspartate Amino Transf (AST/SGOT) 22, Alanine Aminotransferase (ALT/SGPT) 29, Alkaline Phosphatase 128, Total Protein 6.6, Albumin 3.3 01/01/20 11:28: Glucometer 165 01/01/20 16:04: Glucometer 158 01/01/20 20:44: Glucometer 185 01/02/20 05:54: Glucometer 161 01/02/20 11:32: Glucometer 154 01/02/20 16:19: Glucometer 144 01/02/20 20:43: Glucometer 204 01/03/20 05:16: Glucometer 155 01/03/20 11:11: Glucometer 142 01/03/20 16:00: Glucometer 181 01/03/20 21:33: Glucometer 144 01/04/20 06:06: Glucometer 143 01/04/20 10:55: Glucometer 148 01/04/20 16:00: Glucometer 182 01/04/20 20:40: Glucometer 149 01/05/20 06:35: Glucometer 145, White Blood Count 6.0, Red Blood Count 3.88, Hemoglobin 10.2, Hematocrit 32, Mean Corpuscular Volume 81, Mean Corpuscular Hemoglobin 26, Mean Corpuscular Hemoglobin Concent 32, Red Cell Distribution Width 16.3, Platelet Count 219, Mean Platelet Volume 8.9, Neutrophils (%) (Auto) 58, Lymphocytes (%) (Auto) 31, Monocytes (%) (Auto) 8, Eosinophils (%) (Auto) 3, Basophils (%) (Auto) 0, Neutrophils # (Auto) 3.5, Lymphocytes # (Auto) 1.8, Monocytes # (Auto) 0.5, Eosinophils # (Auto) 0.2, Basophils # (Auto) 0.0, Sodium Level 140, Potassium Level 4.7, Chloride Level 102, Carbon Dioxide Level 28, Anion Gap 10, Blood Urea Nitrogen 11, Creatinine 0.83, Estimat Glomerular Filtration Rate > 60, BUN/Creatinine Ratio 13, Glucose Level 142, Calcium Level 9.4, Corrected Calcium 9.9, Total Bilirubin 0.3, Aspartate Amino Transf (AST/SGOT) 18, Alanine Aminotransferase (ALT/SGPT) 31, Alkaline Phosphatase 121, Total Protein 6.7, Albumin 3.4 01/05/20 11:04: Glucometer 143 01/05/20 15:45: Glucometer 172 01/05/20 21:23: Glucometer 167 01/06/20 05:47: Glucometer 157 01/06/20 10:48: Glucometer 160 Discharge Home Medications: Active Scripts Active Boudreauxs (Zinc Oxide) 28 Gm Oint 0 Gm TOP BID Senna-Time S Tablet (Sennosides/Docusate Sodium) 1 Each Tablet 1 Ea PO BID Carvedilol 3.125 Mg Tablet 3.125 Mg PO BID Amiodarone HCl 200 Mg Tablet 200 Mg PO BID Flomax (Tamsulosin HCl) 0.4 Mg Cap 0.4 Mg PO DAILY@1800 Percocet 7.5-325 mg Tablet (Oxycodone HCl/Acetaminophen) 1 Each Tablet 1 Tab PO TID PRN Diazepam 5 Mg Tablet 5 Mg PO BID PRN Reported Ropinirole HCl 0.5 Mg Tablet 0.5 Mg PO DAILY Lyrica (Pregabalin) 150 Mg Capsule 150 Mg PO BID Aspirin 81 Mg Tab.chew 81 Mg PO DAILY Farxiga (Dapagliflozin Propanediol) 10 Mg Tablet 10 Mg PO DAILY Depakote (Divalproex Sodium) 500 Mg Tablet.dr 500 Mg PO BID Vraylar (Cariprazine Hydrochloride) 1.5 Mg Capsule 1.5 Mg PO DAILY Sertraline HCl 100 Mg Tablet 100 Mg PO DAILY Atorvastatin Calcium 40 Mg Tablet 40 Mg PO HS Cyclobenzaprine HCl 10 Mg Tablet 5 Mg PO QID PRN TAKES 1/2 (10MG) TABLET Clopidogrel (Clopidogrel Bisulfate) 75 Mg Tablet 75 Mg PO DAILY Pantoprazole Sodium 40 Mg Tablet.dr 40 Mg PO DAILY Losartan Potassium 25 Mg Tablet 25 Mg PO DAILY Nitroglycerin 0.4 Mg Tab.subl 0.4 Mg SL UD PRN DISSOLVE ONE TABLET UNDER THE TONGUE EVERY 5 MINUTES NEEDED FOR CHEST PAIN. DO NOT EXCEED A TOTAL OF 3 DOSES IN 15 MINUTES Instructions to patient/family Please see electronic discharge instructions given to patient. Diagnosis/Problems Diagnosis/Problems (1) Central cord syndrome (2) Spinal cord compression (3) Former smoker (4) Bipolar disorder (5) Delirium (6) Edema (7) Wheelchair bound (8) DAISY on CPAP (9) CAD (coronary artery disease) (10) CHF (congestive heart failure) (11) UTI (urinary tract infection) (12) Debility Status: Acute (13) Sacral pressure ulcer Clinical Quality Measures DVT/VTE Risk/Contraindication: Risk Factor Score Per Nursin RFS Level Per Nursing on Admit: 4+=Very High MANPREET SPENCER DO Jan 06, 2020 11:16
--- NOTE | 2020-01-06 11:23 | Therapy Team Discharge Summary ---
Therapy Discharge Summary Discharge Recommendations Date of Discharge Occupational Therapy Decreased Activ Tolerance, Decreased UE Strength, Impaired Self-Care Skills, Restricted Funct UE ROM Speech-Language Pathology Patient was admitted to the ARU s/p spinal surgery. Patient was on a modified diet upon admission. Patient also exhibited mild cognitive deficits as indicated by his SLUMS scores. Patient received cognitive and dysphagia therapy. Patient has met all ST goals. Patient is discharging to home with his today. Patient will discharge from skilled therapy as well. PT Care Home Goals Pamphlet Distributor Goals PT Care Home Goals Time Frame: Jan 24, 2020 Roll Left to Right (QC): 5 Sit to Lying (QC): 5 Lying-Sitting on Side/Bed(QC): 5 Sit to Stand (QC): 5 Chair/Xmb-pf-Vtkar Xfer(QC): 5 Car Transfer (QC): 5 Does the Patient Walk: Yes Walk 10 feet (QC): 5 Walk 10ft-Uneven Surface(QC): 5 Walk 50ft with 2 Turns (QC): 5 Walk 150 ft (QC): 5 1 Step (curb) (QC): 5 4 Steps (QC): 5 12 Steps (QC): 9 Picking up an Object (QC): 5 OT Pamphlet Distributor Goals Pamphlet Distributor Goals Time Frame: Jan 23, 2020 Eating (QC): 5 (met) Oral Hygiene (QC): 5 (met) Shower/Bathe Self (QC): 4 (met) Upper Body Dressing (QC): 5 (not met) Lower Body Dressing (QC): 5 (met) On/Off Footwear (QC): 5 (met) Toileting Hygiene (QC): 4 (met) Toilet/Commode Transfer (QC): 5 Additional Goals: 1-Demonstrate ADL Tasks, 2-Verbalize Understanding, 3- ImproveStrength/Melva 1=Demonstrate adherence to instructed precautions during ADL tasks. 2=Patient will verbalize/demonstrate understanding of assistive devices/modifications for ADL. 3=Patient will improve strength/tolerance for activity to enable patient to perform ADL's. Speech Pamphlet Distributor Goals Pamphlet Distributor Goals Patient will maintain adequate nutrition/hydration via safe and effective swallow function. Met ISRA DAVALOS Jan 06, 2020 11:23
--- NOTE | 2020-01-06 11:30 | Physical Therapy Daily Note ---
PT Daily Note-Current Subjective Pt sitting in recliner in room upon arrival. Pt agrees to PT for QC scoring for anticipated D/C today. Pain Location: No Pain Reported Mental Status Patient Orientation: Person, Place, Situation Attachments: Other-See Comments (Cervical collar) Transfers SCALE: Activities may be completed with or without assistive devices. 7-Qpgscexbtu-tyqkmez completes the activity by him/herself with no assistance from a helper. 5-Set-up or Clean-up Assistance-helper sets up or cleans up; patient completes activity. [place] assists only prior to or following the activity. 4-Supervision or Touching Assistance-helper provides verbal cues and/or touching/steadying and/or contact guard assistance as patient completes activity. Assistance may be provided throughout the activity or intermittently. 3-Partial/Moderate Assistance-helper does LESS THAN HALF the effort. [place] lifts, holds or supports trunk or limbs, but provides less than half the effort. 2-Substantial/Maximal Assistance-helper does MORE THAN HALF the effort. [place] lifts or holds trunk or limbs and provides more than half the effort. 1-Vteuemsqu-znbohi does ALL the effort. Patient does none of the effort to complete the activity. Or, the assistance of 2 or more helpers is required for the patient to complete the activity. If activity was not attempted, code reason: 7-Patient Refused. 9-Not Applicable-not attempted and the patient did not perform the activity before the current illness, exacerbation or injury. 10-Not Attempted due to Environmental Limitations-(lack of equipment, weather restraints, etc.). 88-Not Attempted due to Medical Conditions or Safety Concerns. Roll Left & Right (QC): 6 Sit to Lying (QC): 6 Lying to Sitting/Side of Bed(Q: 6 Sit to Stand (QC): 6 Chair/Ndg-iy-Khevl Xfer(QC): 6 Toilet Transfer (QC): 6 Car Transfer (QC): 6 Pt reports having hospital bed at home and uses bed rails to assist in bed mobility. Weight Bearing Right Lower Extremity: Right Full Weight Bearing Left Lower Extremity: Left Full Weight Bearing Gait Training Does the Patient Walk?: Yes Distance: 150' Walk 10 feet (QC): 6 Walk 50 ft with 2 Turns(QC): 6 Walk 150 ft (QC): 5 Walking 10ft/uneven surface-QC: 6 Gait Persons Needed: 1 Gait Assistive Device: FWW Pt fatigues by 150' and needs VC to walk w/in FWW. Stair Training Stair Training: Handrails/: uses walker #of Steps: 2 1 Step (curb) (QC): 5 4 Steps (QC): 7 12 Steps (QC): 7 Stairs: Pattern: Step to Pt reports only having ~6" step and does not feel comfortable completing any steps on staircase. Balance Picking up an Object (QC): 9 Special Test Comments Pt has maitre d at home and will use it for safety. Treatments Pt completes QC scoring items listed above. Pt resting in recliner at end of Rx with all needs met, call light next to pt. Pt will be D/C today. Assessment Current Status: Good Progress Pt has gained strength and activity tolerance during ARU Rx. Pt tolerated Rx well. PT Supervisor Locomotive Goals Supervisor Locomotive Goals PT Supervisor Locomotive Goals Time Frame: Jan 24, 2020 Roll Left & Right (QC): 5 Sit to Lying (QC): 5 Lying-Sitting on Side/Bed(QC): 5 Sit to Stand (QC): 5 Chair/Oui-yk-Vvhok Xfer(QC): 5 Toilet Transfer (QC): 5 Car Transfer (QC): 5 Does the Patient Walk: Yes Walk 10 feet (QC): 5 Walk 50ft with 2 Turns (QC): 5 Walk 150 ft (QC): 5 Walking 10ft on Uneven Surface: 5 1 Step (curb) (QC): 5 4 Steps (QC): 5 12 Steps (QC): 9 Picking up an Object (QC): 5 Type: N/A Type: N/A PT Plan Problem List Problem List: Activity Tolerance, Safety Treatment/Plan Treatment Plan: Continue Plan of Care Treatment Plan: Bed Mobility, Concurrent Therapy, Education, Functional Activity Melva, Functional Strength, Group Therapy, Gait, Safety, Therapeutic Exercise, Transfers Treatment Duration: Jan 24, 2020 Frequency: At least 5 of 7 days/Wk (IRF) Estimated Hrs Per Day: 1.5 hours per day Patient and/or Family Agrees t: Yes Safety Risks/Education Patient Education: Gait Training, Transfer Techniques, Steps, Correct Positioning, Safety Issues Teaching Recipient: Patient Teaching Methods: Discussion Response to Teaching: Verbalize Understanding Time/GCodes Time In: 1045 Time Out: 1115 Total Billed Treatment Time: 30 Total Billed Treatment 1, GT (10m) & FA (20m) YOLETTE BALLARD [employer] SALES VIT[employer]IN CONSULTANT Jan 06, 2020 11:30
--- NOTE | 2020-01-06 12:12 | NUR ---
F/U APPOINTMENT WITH DR. MOORE (NEUROLOGIST) CHANGED TO 01/28/20 AT 3:15 PM PER 'S REQUEST. STATES THAT PATIENT IS OFFICIATING A [place] ON 01/26/20. INFORMED OF NEW APPOINTMENT DATE/TIME AND VERBALIZED UNDERSTANDING.
[2020-01-06 12:24] VITALS: BP 112/53
--- NOTE | 2020-01-06 12:45 | NUR ---
WENT OVER BP MEDIATION PARAMETERS WITH PATIENT/SPOUSE- COREG- HOLD FOR SBP LESS THAN 90 OR HR LESS THAN 50 AND COZAAR- HOLD FOR SBP LESS THAN 100. STATES THAT SHE IS BUYING A BP CUFF AT [facility].
--- NOTE | 2020-01-06 12:46 | NUR ---
PICC REMOVED WITHOUT DIFFICULTY.
--- NOTE | 2020-01-06 12:47 | NUR ---
LLUVIA SCHAEFER demonstrates understanding of discharge instructions and accurately returns instructions upon questioning. Copy of Post-Discharge Instructions given to PATIENT. SILVANOLLUVIA Patric is able to manage continuing needs after discharge. Patient's belongings returned to PATIENT. Patient discharged from [facility] on 01/06/20 at 1248. LLUVIA SCHAEFER left floor via WHEELCHAIR, accompanied by STAFF.
[2020-01-06 12:48] VITALS: BP 112/53
--- NOTE | 2020-01-06 16:08 | NUR ---
CM/SS DISCHARGE Multiple intermittent conversations with patient and spouse by phone throughout the day. Patient verbalized his desire to return home and his spouse was in agreement. [employer] approached physician and therapy team members who also agreed to discharge today. [facility]: Was recommended as a bridge for patient's continued recovery at home; however, 6 agencies were contacted and either would not accept patient's [facility] insurance or he was out of their mileage service area. [employer] followed up with patient/spouse to report the attempts and referrals that were made but that there were no accepting agencies and none left in service area to pursue. DME: Reviewed one last time with patient who stated he had all that was recommended. Unit RN was updated throughout process regarding her role in overall discharge activities.
--- NOTE | 2020-01-07 11:15 | Therapy Team Discharge Summary ---
Therapy Discharge Summary Discharge Recommendations Date of Discharge Jan 06, 2020 at 12:45 Occupational Therapy Pt admitted to ARU following acute hospitalization for cervical surgery with post op complications. On admission pt required total assist for toileting, dressing, and footwear and max assist with bathing. Skilled OT intervention focused on ADL training, transfers, strengthening, and safety education. Pt progressed with therapy and by discharge is completing oral hygiene, toileting, bathing, and toilet transfer with modified independence. Pt requires min assist with UE dressing secondary to decreased ROM. Pt did not meet goal for UE dressing, but met other OT LTG. Pt discharged home with spouse. D/c ARU OT at this time. Decreased Activ Tolerance, Decreased UE Strength, Impaired Self-Care Skills, Restricted Funct UE ROM PT Manager Consumer Insights Goals Group Home Goals PT Group Home Goals Time Frame: Jan 24, 2020 Roll Left to Right (QC): 5 Sit to Lying (QC): 5 Lying-Sitting on Side/Bed(QC): 5 Sit to Stand (QC): 5 Chair/Fjg-fs-Xenwc Xfer(QC): 5 Car Transfer (QC): 5 Does the Patient Walk: Yes Walk 10 feet (QC): 5 Walk 10ft-Uneven Surface(QC): 5 Walk 50ft with 2 Turns (QC): 5 Walk 150 ft (QC): 5 1 Step (curb) (QC): 5 4 Steps (QC): 5 12 Steps (QC): 9 Picking up an Object (QC): 5 OT Manager Consumer Insights Goals Manager Consumer Insights Goals Time Frame: Jan 23, 2020 Eating (QC): 5 (met) Oral Hygiene (QC): 5 (met) Shower/Bathe Self (QC): 4 (met) Upper Body Dressing (QC): 5 (not met) Lower Body Dressing (QC): 5 (met) On/Off Footwear (QC): 5 (met) Toileting Hygiene (QC): 4 (met) Toilet/Commode Transfer (QC): 5 Additional Goals: 1-Demonstrate ADL Tasks, 2-Verbalize Understanding, 3- ImproveStrength/Melva 1=Demonstrate adherence to instructed precautions during ADL tasks. 2=Patient will verbalize/demonstrate understanding of assistive devices/modifications for ADL. 3=Patient will improve strength/tolerance for activity to enable patient to perform ADL's. Speech Group Home Goals Manager Consumer Insights Goals Patient will maintain adequate nutrition/hydration via safe and effective swallow function. Met VISHNU ROSALES OT Jan 07, 2020 11:15
--- NOTE | 2020-01-08 13:50 | Physician Query Clarification ---
PQ-Further Specificity Admission/Discharge Admission Date: Dec 26, 2019 at 14:45 Discharge Date: Jan 06, 2020 at 12:45 The medical record reflects the following clinical scenario: History/Risk Factors: s/p surgery for cervical central cord syndrome with Cervical spondylosis w/ myelopathy, HTN, chronic systolic heart failure, ICM, CAD DAISY COPD, neuropathy Clinical Findings: weakness upper and lower extremities Treatment: rehab Question: Can you further specify the patients level of neurological debility post surgery per the clinical indicators above? Please document a response in the Progress Notes or Discharge Summary. 1. Cervical spondylosis with myelopathy (myelopathy must still be present) 2. Cervical spondylosis with radiculopathy 3. Cervical spondylosis with musculoskeletal weakness 4. Other, with explanation of the clinical findings. 5. Clinically undetermined, no explanation for the clinical findings. PHYSICIAN RESPONSE Can you specify per above: 1 Please remember a lack of response to the above will prompt a phone page by CDI/Coding staff. In responding to this query, please exercise your independent professional judgment. The purpose of this communication is to more accurately reflect the complexity of your patients condition. The fact that a question is asked does not imply that any particular answer is desired or expected. Thank you for your timely response to this clarification. Requestors name: Juliette THIS PHYSICIAN QUERY FORM IS A PERMANENT PART OF THE MEDICAL RECORD JULIETTE GODFREY Jan 08, 2020 13:50 MANPREET SPENCER DO Jan 08, 2020 18:06
--- NOTE | 2020-01-09 11:14 | NUR ---
CM/SS Post discharge update, summary. Patient was contacted day after discharge to see if he would agree to OP PT, typewriter operator automatic confirmed that [facility] would accept [employer] benefits. Patient's spouse stated they would talk and update, but did not. Law Enforcement Instructor contacted [facility] team assigned to patient to update them of this OP available option, and that they could order services for patient if it was appropriate to care plan and patient would participate. Updated spouse again today, spouse will discuss with patient. A continuum is in place between patient and PCP.
== END 2020-01-06 12:45 | disposition home or self-care (01) | DRG 551 ==
LOC: ICU 12-28 16:51
PROVIDERS: ADMIT Internal Medicine; ATTEND Internal Medicine
DX: M47.12 Other spondylosis with myelopathy, cervical region (principal); R33.9 Retention of urine, unspecified; J18.9 Pneumonia, unspecified organism; J96.00 Acute respiratory failure, unspecified whether with hypoxia or hypercapnia; I21.A1 Myocardial infarction type 2; I11.0 Hypertensive heart disease with heart failure; I50.22 Chronic systolic (congestive) heart failure; I25.5 Ischemic cardiomyopathy; I25.10 Atherosclerotic heart disease of native coronary artery without angina pectoris; G47.33 Obstructive sleep apnea (adult) (pediatric); J44.9 Chronic obstructive pulmonary disease, unspecified; G62.9 Polyneuropathy, unspecified; E11.9 Type 2 diabetes mellitus without complications; L89.159 Pressure ulcer of sacral region, unspecified stage; K59.00 Constipation, unspecified; E78.5 Hyperlipidemia, unspecified; M19.91 Primary osteoarthritis, unspecified site; F31.9 Bipolar disorder, unspecified; Z95.5 Presence of coronary angioplasty implant and graft; Z87.891 Personal history of nicotine dependence; Z47.89 Encounter for other orthopedic aftercare
CPT/HCPCS: 36415; 80053; 82805; 82962; 85025; 94640; 94760

== ENCOUNTER 2019-12-28 16:59 | Observation (INO) | payer MEDICAID ==
[~2019-12-28] VITALS: Ht 177.8 cm; Wt 101.2 kg
[2019-12-28] VITALS (7 sets, daily range): BP systolic 97–128; BP diastolic 63–90
[~2019-12-28 16:59] MED LIST changes: +AMIO400T5 PO; +OXYC1TAB16 PO; +ROPI0.5T2 PO
[2019-12-28 17:38] LABS: BASOPHILS % (AUTO) 0 % (0-10); EOSINOPHILS # (AUTO) 0.2 10^3/uL (0.0-0.3); EOSINOPHILS % (AUTO) 1 % (0-10); HEMATOCRIT 35 % (40-54); HEMOGLOBIN 11.5 G/DL (13.3-17.7); LYMPHOCYTES # (AUTO) 1.9 X 10^3 (1.0-4.0); LYMPHOCYTES % (AUTO) 17 % (12-44); MEAN CORPUSCULAR HEMOGLOBIN 27 PG (25-34); MEAN CORPUSCULAR HGB CONC 33 G/DL (32-36); MEAN CORPUSCULAR VOLUME 83 FL (80-99); MEAN PLATELET VOLUME 9.9 FL (7.4-10.4); MONOCYTES # (AUTO) 1.2 X 10^3 (0.0-1.0); MONOCYTES % (AUTO) 11 % (0-12); NEUTROPHILS # (AUTO) 7.9 X 10^3 (1.8-7.8); NEUTROPHILS % (AUTO) 70 % (42-75); PLATELET COUNT 252 10^3/uL (130-400); RED CELL DISTRIBUTION WIDTH 17.1 % (10.0-14.5); WHITE BLOOD COUNT 11.2 10^3/uL (4.3-11.0)
--- NOTE | 2019-12-28 17:55 | Diagnostic Imaging Report ---
INDICATION: Hypoxia and respiratory distress. EXAMINATION: Frontal views of the chest were obtained at 5:32 p.m. COMPARISON: 08/18/2019. FINDINGS: Heart is borderline in size. There is central vascular congestion with some bibasilar infiltrate and/or atelectasis. There is no pneumothorax or pleural fluid. IMPRESSION: Cardiomegaly with some bibasilar infiltrate versus atelectasis. No pneumothorax or pleural fluid. Follow-up is recommended. Dictated by: Dictated on workstation # [id number]
[2019-12-28 17:57] LABS: ALANINE AMINOTRANSFERASE 22 U/L (0-55); ALBUMIN 3.9 GM/DL (3.2-4.5); ALKALINE PHOSPHATASE 146 U/L (40-136); BILIRUBIN,TOTAL 0.6 MG/DL (0.1-1.0); BUN/CREATININE RATIO 15; CALCIUM 9.2 MG/DL (8.5-10.1); CARBON DIOXIDE 20 MMOL/L (21-32); CHLORIDE 103 MMOL/L (98-107); GFR ESTIMATED > 60; GLUCOSE 152 MG/DL (70-105); POTASSIUM 3.9 MMOL/L (3.6-5.0); SODIUM 136 MMOL/L (135-145); TOTAL PROTEIN 7.3 GM/DL (6.4-8.2)
[2019-12-28] MEDS ORDERED: diphenhydrAMINE 25 MG TAB (BENADRYL) PO PRN (18:15)
[2019-12-28] MEDS ORDERED: DOCUSATE SODIUM 100 MG (COLACE) CAP PO PRN (18:15)
[2019-12-28] MEDS ORDERED: ONDANSETRON 4 MG/2 ML (SDV) Z0FRAN IVP PRN (18:15)
[2019-12-28] MEDS ORDERED: CALCIUM CARBONATE 500 MG (TUMS) TAB.CHEW PO PRN (18:15)
[2019-12-28] MEDS ORDERED: guaiFENesin/CODEINE (ROBITUSSIN AC) 10ML UDC PO PRN (18:15)
[2019-12-28] MEDS ORDERED: ALPRAZolam 0.25 MG (XANAX) TAB PO PRN (18:15)
[2019-12-28] MEDS ORDERED: MELATONIN 3 MG TABLET PO PRN (18:15)
[2019-12-28] MEDS ORDERED: ACETAMINOPHEN 500 MG TAB (TYLENOL) PO PRN (18:15)
--- NOTE | 2019-12-28 18:21 | Progress Note ---
Progress Note Transferred from rehab after doing well since admit Sunday afternoon. HPI: This is a 54yoWM known to me from severe sepsis episode requiring lengthy hospital stay along with IRF who presents from [facility] after undergoing cervical spine surgery due to central cord syndrome requiring wheelchair bound status but complicated with cardiac arrest due to ventricular arrhythmia of V fib requiring CPR and code blue protocol for 45 minutes then placed on Amiodarone IV and stents placed 12/18/[address] Lovelace. Citrobacter PNA fully treated at [facility] and MRI did not reveal any anoxic brain injury. He maintains on CPAP and has had urinary retention requiring levy placement due to failing voiding trial. Constipation is also an issue that will be resolved. C-spine is currently restricted in a hard brace and patient is ambulatory now since the success of the surgery. MANPREET SPENCER DO Dec 28, 2019 18:21
[2019-12-28] MEDS ORDERED: VANCOMYCIN INJECTION 2,000 MG in NS (IVPB) 250 ML IV SCH (18:30)
[2019-12-28] MEDS ORDERED: oxyCODONE/APAP 10/325MG (PERCOCET 10) TABLET PO PRN (18:30)
[2019-12-28] MEDS ORDERED: morphine INJ 10 MG/ML 1ML (SYR OR VIAL) IVP PRN (18:30)
--- NOTE | 2019-12-28 19:11 | Anesthesia-Procedure Note ---
Procedures/Interventions Procedure Start/Stop/Diagnosis Date of Procedure: Dec 28, 2019 Start Time: 18:50 Brief History 1904 Stop Time: 19:05 Central Line/IV Access IV : Location: Right Site: Forearm IV Catheter Type: Peripheral IV IV Catheter Gauge: 22 Progress PIV started. flushed with 20ml of NS with ease. Site clean, dry, normal. Nurse at bedside to start infusion. NINA DOE CRNA Dec 28, 2019 19:11
[2019-12-28] MEDS ORDERED: VANCOMYCIN 1000 MG/VIAL ONE (22:50)
[2019-12-28] MEDS ORDERED: NS IV 500 ML 500 ML ONE (22:52)
[2019-12-28] MEDS ORDERED: VANCOMYCIN 2000 MG/NS 500 ML IVPB IV ONE ×2 (23:00)
[2019-12-28] MEDS: ENOXAPARIN 40 MG/0.4 ML (LOVENOX) SYR SC SCH (23:08)
[2019-12-28] MEDS: NS IV 1000 ML 1,000 ML IV SCH (23:09)
[2019-12-29] VITALS (23 sets, daily range): BP systolic 96–149; BP diastolic 68–110
[2019-12-29 00:18] LABS: BILIRUBIN,URINE NEGATIVE (NEGATIVE); CLARITY,URINE CLEAR; COLOR,URINE YELLOW; GLUCOSE, URINE (UA) NEGATIVE (NEGATIVE); KETONES,URINE NEGATIVE (NEGATIVE); LEUKOCYTE ESTERASE ,URINE 2+ (NEGATIVE); NITRITE,URINE POSITIVE (NEGATIVE); PROTEIN,URINE NEGATIVE (NEGATIVE)
[2019-12-29] MEDS: MEROPENEM 500 MG in WATER (STERILE) FOR INJECTION 10 ML IV SCH ×5 (00:22→22:42)
[2019-12-29 00:28] LABS: BACTERIA,URINE LARGE /HPF; RBC,URINE 0-2 /HPF
[2019-12-29 00:29] LABS: SQUAMOUS EPITHELIAL CELL,UR RARE /HPF
[2019-12-29] MEDS ORDERED: RT-ALBUTEROL SULF 2.5 MG/3 ML PRE-MIX VIAL INH PRN (01:15)
[2019-12-29] MEDS: NS IV 1000 ML 1,000 ML IV SCH (03:24)
[2019-12-29 03:31] LABS: BASOPHILS % (AUTO) 0 % (0-10); EOSINOPHILS # (AUTO) 0.1 10^3/uL (0.0-0.3); EOSINOPHILS % (AUTO) 1 % (0-10); HEMATOCRIT 34 % (40-54); HEMOGLOBIN 10.9 G/DL (13.3-17.7); LYMPHOCYTES # (AUTO) 1.2 X 10^3 (1.0-4.0); LYMPHOCYTES % (AUTO) 14 % (12-44); MEAN CORPUSCULAR HEMOGLOBIN 27 PG (25-34); MEAN CORPUSCULAR HGB CONC 32 G/DL (32-36); MEAN CORPUSCULAR VOLUME 82 FL (80-99); MONOCYTES # (AUTO) 0.9 X 10^3 (0.0-1.0); MONOCYTES % (AUTO) 10 % (0-12); NEUTROPHILS # (AUTO) 6.7 X 10^3 (1.8-7.8); NEUTROPHILS % (AUTO) 75 % (42-75); PLATELET COUNT 223 10^3/uL (130-400); RED CELL DISTRIBUTION WIDTH 17.2 % (10.0-14.5); WHITE BLOOD COUNT 8.9 10^3/uL (4.3-11.0)
[2019-12-29 03:51] LABS: BUN/CREATININE RATIO 15; CALCIUM 8.7 MG/DL (8.5-10.1); CARBON DIOXIDE 21 MMOL/L (21-32); CHLORIDE 105 MMOL/L (98-107); CREATININE SERUM 0.91 MG/DL (0.60-1.30); GFR ESTIMATED > 60; GLUCOSE 158 MG/DL (70-105); MAGNESIUM 1.8 MG/DL (1.6-2.4); PHOSPHORUS 3.2 MG/DL (2.3-4.7); POTASSIUM 4.5 MMOL/L (3.6-5.0); SODIUM 136 MMOL/L (135-145)
--- NOTE | 2019-12-29 05:55 | Pulmonary Consultation ---
History of Present Illness History of Present Illness Date Seen by Provider: Dec 29, 2019 Time Seen by Provider: 05:49 Date of Admission History of Present Illness 54yo with hx of cervical cord compression s/p surgery, s/p recent cardiac arrest, CHF, DAISY transferred from inpt rehab to ICU secondary to worsening lethargy, and hypotension with SBP of 89. Pt was also found to have hypoxia with Sp02 87%. I am consulted for ICU management. Allergies and Home Medications Allergies Coded Allergies: No Known Drug Allergies (Unverified , 04/23/19) Home Medications Amiodarone HCl 400 Mg Tablet, 400 MG PO BID, (Reported) Aspirin 81 Mg Tab.chew, 81 MG PO DAILY, (Reported) Atorvastatin Calcium 40 Mg Tablet, 40 MG PO HS, (Reported) Cariprazine Hydrochloride 1.5 Mg Capsule, 1.5 MG PO DAILY, (Reported) Carvedilol 6.25 Mg Tablet, 6.25 MG PO BID, (Reported) Clopidogrel Bisulfate 75 Mg Tablet, 75 MG PO DAILY, (Reported) Cyclobenzaprine HCl 10 Mg Tablet, 5 MG PO QID PRN for MUSCLE SPASMS, (Reported) TAKES 1/2 (10MG) TABLET Dapagliflozin Propanediol 10 Mg Tablet, 10 MG PO DAILY, (Reported) Diazepam 5 Mg Tablet, 5 MG PO BID PRN for ANXIETY, (Reported) Divalproex Sodium 500 Mg Tablet.dr, 500 MG PO BID, (Reported) Losartan Potassium 25 Mg Tablet, 25 MG PO DAILY, (Reported) Nitroglycerin 0.4 Mg Tab.subl, 0.4 MG SL UD PRN for CHEST PAIN, (Reported) DISSOLVE ONE TABLET UNDER THE TONGUE EVERY 5 MINUTES NEEDED FOR CHEST PAIN. DO NOT EXCEED A TOTAL OF 3 DOSES IN 15 MINUTES Oxycodone HCl/Acetaminophen 1 Each Tablet, 1 TAB PO TID PRN for PAIN-MODERATE (5-7), (Reported) Pantoprazole Sodium 40 Mg Tablet.dr, 40 MG PO DAILY, (Reported) Pregabalin 150 Mg Capsule, 150 MG PO BID, (Reported) Ropinirole HCl 0.5 Mg Tablet, 0.5 MG PO DAILY, (Reported) Sertraline HCl 100 Mg Tablet, 100 MG PO DAILY, (Reported) Past Nwgtzbd-Lvcopi-Cxeauw Hx Patient Social History Alcohol Use: Denies Use Recreational Drug Use: No Type Used: Pipe 2nd Hand Smoke Exposure: No Recent Foreign Travel: No Recent Hopitalizations: Yes (pal[place]) Immunizations Up To Date Date of Pneumonia Vaccine: Aug 17, 2015 Date of Influenza Vaccine: Aug 17, 2017 Seasonal Allergies Seasonal Allergies: No Past Medical History Surgeries: Yes (RIGHT ROTATOR CUFF) Orthopedic Respiratory: Yes (recent intubation r/t resp. distress secondary to surgery) Sleep Apnea Currently Using CPAP: Yes Currently Using BIPAP: No Cardiac: Yes (heart stents x3 recently) Cardiomyopathy, Chronic Edema/Swelling, Coronary Artery Disease, High Cholesterol, Hypertension Neurological: No Neuropathy, Paralysis, Spinal Cord Injury Genitourinary: Yes (current retention issues) Bladder Infection, Renal Failure Gastrointestinal: Yes Chronic Constipation, Ulcer Musculoskeletal: Yes (neck/back injury 1998 recent anterior neck surgery on 12/11/19) Arthritis, Chronic Back Pain Endocrine: Yes Diabetes, Non-Insulin dep HEENT: No Cancer: No Psychosocial: Yes Bipolar Integumentary: No Blood Disorders: No Family Medical History Cardiovascular disease G8 SISTER Diabetes mellitus G8 SISTER Review of Systems Time Seen by Provider: 06:05 Constitutional: Weakness, Malaise; No: Fever, Chills, Sweats, Other Eyes: No: Pain, Vision change, Conjunctivae inflammation, Eyelid inflammation, Other, Redness ENT: Nose congestion; No: Ear pain, Ear discharge, Nose pain, Nose discharge, Mouth pain, Mouth swelling, Throat pain, Throat swelling, Other Respiratory: Cough, Dry, Shortness of breath, SOB with excertion Cardiovascular: Edema; No: Chest Pain, Palpitations, Orthopnea, Paroxysmal Noc. Dyspnea, Lt Headedness, Other Sepsis Event Evaluation Height, Weight, BMI Height: 5'8.00" Weight: 255lbs. oz. 115.994895ds; 32.58 BMI Method:Stated Exam Exam Vital Signs Date Time Temp Pulse Resp B/P (MAP) Pulse Ox O2 Delivery O2 Flow Rate FiO2 12/29/19 04:00 36.7 12/29/19 04:00 Nasal Cannula 4.00 12/29/19 03:00 71 20 121/89 (100) 94 Nasal Cannula 4.00 12/29/19 02:00 72 12 116/75 (89) 96 Nasal Cannula 4.00 12/29/19 01:00 73 20 122/76 (91) 96 Nasal Cannula 4.00 12/29/19 01:00 73 12/29/19 00:25 37.3 73 98 4 12/29/19 00:23 36.8 12/29/19 00:00 Nasal Cannula 4.00 12/29/19 00:00 74 15 96/68 (77) 94 Nasal Cannula 4.00 12/28/19 23:00 76 13 97/68 (78) 95 Nasal Cannula 4.00 12/28/19 22:00 78 20 121/63 (82) 95 Nasal Cannula 4.00 12/28/19 21:00 73 18 128/79 (95) 96 Nasal Cannula 4.00 12/28/19 20:19 37.3 12/28/19 20:00 Nasal Cannula 4.00 12/28/19 20:00 72 18 121/87 (98) 99 Nasal Cannula 4.00 12/28/19 19:29 70 24 120/70 (87) 99 Nasal Cannula 4.00 12/28/19 19:00 70 18 96 Nasal Cannula 4.00 12/28/19 19:00 70 12/28/19 18:00 73 11 125/80 (95) 98 Nasal Cannula 4.00 12/28/19 17:30 67 20 114/90 (98) 98 Nasal Cannula 4.00 12/28/19 17:00 98 Nasal Cannula 4.00 12/28/19 16:54 60 I & O 12/29/19 07:00 Intake Total 220 ml Output Total 900 ml Balance -680 ml Height & Weight Height: 5'8.00" Weight: 255lbs. oz. 115.523533nn; 32.58 BMI Method:Stated General Appearance: Mild Distress, Obese HEENT: PERRL/EOMI, Pharynx Normal Neck: Full Range of Motion, Non Tender, Supple Respiratory: No Accessory Muscle Use, No Respiratory Distress, Crackles, Decreased Breath Sounds Cardiovascular: Regular Rate, Rhythm, No Edema Capillary Refill: Less Than 3 Seconds Gastrointestinal: normal bowel sounds, non tender, soft Extremity: Normal Capillary Refill Neurologic/Psychiatric: Alert Skin: Normal Color, Warm/Dry Lymphatic: No Adenopathy Results Lab Laboratory Tests 12/28/19 17:30 12/29/19 03:25 Assessment/Plan Assessment/Plan Acute respiratory distress and transferred to ICU from rehab -Check ABG -D/C MAT and londono SVNs to q4 and Q 2 PRN Duoneb -Check influenza swab Atelectasis -Sart IS -Continue PT/OT obesity with possible DAISY -BiPAP PRN -Will need out pt PSG UTI with severe sepsis and septic shock - Khris and Chauncey currently -Await repeat dunaway cultures -Start Diflucan CHF with EF 25-30% -Cardiology following --Check echocardiogram -SL IVF -Check BNP Anemia -Check Occult stool CAD with elevated troponin -Cardiology consulted NSTEMI - denies CP -Cardiology following Sacral pressure ulcer stage II -Wound care Bipolar disorder HX Generalized debility/weakness - continue PT/OT NAS MALDONADO DO Dec 29, 2019 05:54
[2019-12-29] MEDS ORDERED: FLU QUADRIvalent (5+ YOA) 2019-2020 (AFLURIA) 0.5 ML IM ONE (07:15)
[2019-12-29 07:18] LABS: ABG BASE EXCESS 0.4 MMOL/L (-2.5-2.5); ABG OXYGEN SATURATION 93 % (94-100); ABG PCO2 32 MMHG (35-45); ABG PH 7.48 (7.37-7.43); ABG PO2 61 MMHG (79-93); ABG TCO2 24.6 MMOL/L (21.0-31.0)
[2019-12-29 07:20] LABS: ALLENS TEST YES-POS; INSPIRED O2 ROOM AIR; PATIENT TEMP 36.9; VENTILATOR NO
--- NOTE | 2019-12-29 07:26 | Diagnostic Imaging Report ---
EXAMINATION: Chest radiograph, portable AP view. DATE: 12/29/2019 4:03 AM hours. INDICATION: 54-year-old male, shortness of breath. Hypotension. COMPARISON: December 28, 2019. FINDINGS: Stable overall appearance of the cardiomediastinal silhouette. There is no identified pneumothorax. There are streaky opacities in the lung bases bilaterally. IMPRESSION: 1. Unchanged streaky bibasilar opacities which may relate to atelectasis and/or infiltrate. Dictated by: Dictated on workstation # [id number]
[2019-12-29] MEDS ORDERED: FLUCONAZOLE 200 MG/100 ML 100 ML IV NR (07:45)
[2019-12-29] MEDS ORDERED: RT-ALBUTEROL SULF 2.5 MG/3 ML PRE-MIX VIAL INH SCH (08:00)
[2019-12-29] MEDS ORDERED: VANCOMYCIN 1500 MG/NS 500 ML IVPB IV SCH ×4 (09:00→23:00)
--- NOTE | 2019-12-29 09:08 | Consultation-Cardiology ---
HPI-Cardiology Cardiology Consultation Date of Consultation 12/29/19 Date of Admission Time Seen by Provider: 09:03 Indication: Coronary artery disease HPI 54 year old gentleman with extensive cardiac history described below, had multiple interventions, underwent C-spine surgery on December 11, 2019 complicated by bleeding, after the surgery he had a cardiac arrest and was coded for 45 minutes then had a cardiac catheterization with [address] Lovelace. Has been following with Dr. Mir. He was recovering and transferred to cardiac rehabilitation after staying in the hospital for 2 weeks and was improving slowly, it was reported that he became more dyspneic and hypotensive yesterday. On my evaluation today he was receiving physical therapy, feeling well, denied any chest pain, no shortness of breath beyond his baseline. No palpitation. No syncope. Home Medications & Allergies Allergies: Coded Allergies: No Known Drug Allergies (Unverified , 04/23/19) Home Medication List Reviewed: Yes ZCL-Iucprm-Qymtel Hx Patient Social History Marital Status: Employed/Student: employed Alcohol Use: Denies Use Recreational Drug Use: No Type Used: Pipe 2nd Hand Smoke Exposure: No Recent Foreign Travel: No Recent Hopitalizations: Yes ([place]) Physical Abuse Screen: No Sexual Abuse: No Immunizations Up To Date Date of Pneumonia Vaccine: Aug 17, 2015 Date of Influenza Vaccine: Aug 17, 2017 Past Medical History Discussed below Family Medical History Family History: Cardiovascular disease G8 SISTER Diabetes mellitus G8 SISTER Review of Systems-General Review of Systems Constitutional: see HPI, malaise, weakness EENTM: see HPI, no symptoms reported Respiratory: see HPI, cough, dyspnea on exertion; No hemoptysis, No orthopnea, No phlegm; short of breath; No stridor, No wheezing, No other Cardiovascular: see HPI; No chest pain, No edema, No Hx of Intervention, No palpitations, No syncope, No vascular heart diseas, No other Gastrointestinal: see HPI, dysphagia Genitourinary: no symptoms reported, see HPI Musculoskeletal: no symptoms reported, see HPI, back pain, joint pain, muscle weakness Skin: no symptoms reported, see HPI Psychiatric/Neurological: No Symptoms Reported, See HPI Reviewed Test Results Reviewed Test Results Lab Laboratory Tests Test 12/28/19 17:30 12/28/19 21:12 12/28/19 23:14 2/17/20 03:25 Range/Units White Blood Count 11.2 H 8.9 4.3-11.0 10^3/uL Red Blood Count 4.28 L 4.11 L 4.35-5.85 10^6/uL Hemoglobin 11.5 L 10.9 L 13.3-17.7 G/DL Hematocrit 35 L 34 L 40-54 % Mean Corpuscular Volume 83 82 80-99 FL Mean Corpuscular Hemoglobin 27 27 25-34 PG Mean Corpuscular Hemoglobin Concent 33 32 32-36 G/DL Red Cell Distribution Width 17.1 H 17.2 H 10.0-14.5 % Platelet Count 252 223 130-400 10^3/uL Mean Platelet Volume 9.9 10.0 7.4-10.4 FL Neutrophils (%) (Auto) 70 75 42-75 % Lymphocytes (%) (Auto) 17 14 12-44 % Monocytes (%) (Auto) 11 10 0-12 % Eosinophils (%) (Auto) 1 1 0-10 % Basophils (%) (Auto) 0 0 0-10 % Neutrophils # (Auto) 7.9 H 6.7 1.8-7.8 X 10^3 Lymphocytes # (Auto) 1.9 1.2 1.0-4.0 X 10^3 Monocytes # (Auto) 1.2 H 0.9 0.0-1.0 X 10^3 Eosinophils # (Auto) 0.2 0.1 0.0-0.3 10^3/uL Basophils # (Auto) 0.0 0.0 0.0-0.1 10^3/uL Sodium Level 136 136 135-145 MMOL/L Potassium Level 3.9 4.5 3.6-5.0 MMOL/L Chloride Level 103 105 98-107 MMOL/L Carbon Dioxide Level 20 L 21 21-32 MMOL/L Anion Gap 13 10 5-14 MMOL/L Blood Urea Nitrogen 18 14 7-18 MG/DL Creatinine 1.20 0.91 0.60-1.30 MG/DL Estimat Glomerular Filtration Rate > 60 > 60 BUN/Creatinine Ratio 15 15 Glucose Level 152 H 158 H 70-105 MG/DL Lactic Acid Level 2.25 *H 1.43 0.50-2.00 MMOL/L Calcium Level 9.2 8.7 8.5-10.1 MG/DL Corrected Calcium 9.3 8.5-10.1 MG/DL Total Bilirubin 0.6 0.1-1.0 MG/DL Aspartate Amino Transf (AST/SGOT) 16 5-34 U/L Alanine Aminotransferase (ALT/SGPT) 22 0-55 U/L Alkaline Phosphatase 146 H 40-136 U/L Troponin I 0.320 *H <0.028 NG/ML B-Type Natriuretic Peptide 92.0 116.8 H <100.0 PG/ML Total Protein 7.3 6.4-8.2 GM/DL Albumin 3.9 3.2-4.5 GM/DL Urine Color YELLOW Urine Clarity CLEAR Urine pH 6.0 5-9 Urine Specific [place] 1.015 L 1.016-1.022 Urine Protein NEGATIVE NEGATIVE Urine Glucose (UA) NEGATIVE NEGATIVE Urine Ketones NEGATIVE NEGATIVE Urine Nitrite POSITIVE H NEGATIVE Urine Bilirubin NEGATIVE NEGATIVE Urine Urobilinogen 1.0 < = 1.0 MG/DL Urine Leukocyte Esterase 2+ H NEGATIVE Urine RBC (Auto) TRACE-L NEGATIVE Urine RBC 0-2 /HPF Urine WBC 10-25 H /HPF Urine Squamous Epithelial Cells RARE /HPF Urine Crystals NONE /LPF Urine Bacteria LARGE H /HPF Urine Casts NONE /LPF Urine Mucus NEGATIVE /LPF Urine Culture Indicated YES Phosphorus Level 3.2 2.3-4.7 MG/DL Magnesium Level 1.8 1.6-2.4 MG/DL Test 12/29/19 07:12 Range/Units Blood Gas Puncture Site LT RAD Blood Gas Patient Temperature 36.9 Arterial Blood pH 7.48 H 7.37-7.43 Arterial Blood Partial Pressure CO2 32 L 35-45 MMHG Arterial Blood Partial Pressure O2 61 L 79-93 MMHG Arterial Blood HCO3 24 23-27 MMOL/L Arterial Blood Total CO2 24.6 21.0-31.0 MMOL/L Arterial Blood Oxygen Saturation 93 L 94-100 % Arterial Blood Base Excess 0.4 -2.5-2.5 MMOL/L Balwinder Test YES-POS Blood Gas Ventilator Setting NO Blood Gas Inspired Oxygen ROOM AIR Physical Exam Physical Exam Vital Signs Vital Signs - First Documented 12/28/19 12/28/19 12/28/19 12/28/19 12/29/19 16:54 17:00 17:30 20:19 00:25 Temp 37.3 Pulse 60 Resp 20 B/P (MAP) 114/90 (98) Pulse Ox 98 O2 Delivery Nasal Cannula O2 Flow Rate 4.00 FiO2 4 Capillary Refill : Less Than 3 Seconds Height, Weight, BMI Height: 5'8.00" Weight: 255lbs. oz. 115.796886nj; 32.58 BMI Method:Stated General Appearance: Mild Distress, Obese HEENT: PERRL/EOMI, Pharynx Normal Neck: Full Range of Motion, Non Tender, Supple Respiratory: No Accessory Muscle Use, No Respiratory Distress, Crackles, Decreased Breath Sounds Cardiovascular: Regular Rate, Rhythm, No Edema Extremity: Normal Capillary Refill Neurologic/Psychiatric: Alert Skin: Normal Color, Warm/Dry Lymphatic: No Adenopathy A/P-Cardiology Admission Diagnosis Coronary artery disease Congestive heart failure Hypertension Hyperlipidemia Assessment/Plan Coronary artery disease, history of cardiac catheterization with stenting in July 2009 and then another cardiac catheterization with 3 stents done earlier this month, continue to monitor at this time Status post acute respiratory failure, currently back to baseline, having shortness of breath. Continue to monitor Congestive heart failure, chronic compensated left ventricular systolic dysfunction, ischemic cardiomyopathy with ejection fraction 25-30 percent, probably improved after the stents were done earlier this month, I'll repeat 2-D echocardiogram. Monitor BMP Mild elevation in troponin, probably type II VT secondary to hypoxemia and hypotension, I will monitor the trend. Status post C-spine surgery, recovering slowly Hyperlipidemia maintained on Lipitor Bipolar disorder, managed by primary care physician Clinical Quality Measures DVT/VTE Risk/Contraindication: Risk Factor Score Per Nursin RFS Level Per Nursing on Admit: 4+=Very High ALINA GREGG MD Dec 29, 2019 09:08
[2019-12-29] MEDS: RT-ALBUTEROL/IPRATROPIUM 3 ML (DUONEB) VIAL INH SCH ×5 (09:18→22:40)
--- NOTE | 2019-12-29 10:10 | Physical Therapy Evaluation ---
PT Evaluation-General Medical Diagnosis Admission Date Dec 28, 2019 at 16:59 Medical Diagnosis: SOA Onset Date: Dec 28, 2019 Therapy Diagnosis Therapy Diagnosis: debility/weakness Height/Weight Height (Feet): 5 Height (Inches): 8.00 Weight (Pounds): 255 Precautions Precautions/Isolations: Fall Prevention, Standard Precautions Weight Bear Status Right Lower Extremity: Right Weight Bearing/Tolerated Left Lower Extremity: Left Weight Bearing/Tolerated Referral Physician: Jennifer Reason for Referral: Evaluation/Treatment Medical History Pertinent Medical History: Arthritis, CAD, DM, HTN, ID, Rheumatoid Arthritis Additional Medical History s/p cervical spine surgery secondary to central cord syndrome; cardiac arrest/code blue x 45 min then vent. Transferred to [facility] ARU for rehab. Current History transfer to ICU secondary to SOA Reviewed History: Yes Social History Home: Single Level Current Living Status: Spouse Prior Prior Level of Function SCALE: Activities may be completed with or without assistive devices. 6-Ynkqkkuwqy-dmgujfq completes the activity by him/herself with no assistance from a helper. 5-Set-up or Clean-up Assistance-helper sets up or cleans up; patient completes activity. Washta assists only prior to or following the activity. 4-Supervision or Touching Assistance-helper provides verbal cues and/or touching/steadying and/or contact guard assistance as patient completes activity. Assistance may be provided throughout the activity or intermittently. 3-Partial/Moderate Assistance-helper does LESS THAN HALF the effort. Washta lifts, holds or supports trunk or limbs, but provides less than half the effort. 2-Substantial/Maximal Assistance-helper does MORE THAN HALF the effort. Washta lifts or holds trunk or limbs and provides more than half the effort. 7-Ztmwfgfnw-lfapkm does ALL the effort. Patient does none of the effort to complete the activity. Or, the assistance of 2 or more helpers is required for the patient to complete the activity. If activity was not attempted, code reason: 7-Patient Refused. 9-Not Applicable-not attempted and the patient did not perform the activity befo re the current illness, exacerbation or injury. 10-Not Attempted due to Environmental Limitations-(lack of equipment, weather re straints, etc.). 88-Not Attempted due to Medical Conditions or Safety Concerns. Bed Mobility: 5 Transfers (B,C,W/C): 5 Gait: 2 Indoor Mobility (Ambulation): Needed Some Help Stairs: Not Applicalbe Prior Devices Use: Manual wheelchair, Walker PT Evaluation-Current Subjective Patient reports he is feeling better today. Patient had transferred to ICU last night due to SOA and hypotension. Pain Numeric Pain Scale: 0-No Pain Location: No Pain Reported Objective Patient Orientation: Normal For Age Attachments: Zimmerman Catheter, IV ROM/Strength ROM Lower Extremities bilateral LE WFL Strength Lower Extremities 3+/5 grossly bilateral LE Integumentary/Posture Integumentary refer to nursing notes Bladder Incontinence: Zimmerman Cath Posture WFL Neuromuscular (Tone, Coordination, Reflexes) grossly intact Sensory Vision: Functional Hearing: Functional Sensation Right Lower Extremit: Impaired Sensation Left Lower Extremity: Impaired Transfers Roll Left to Right (QC): 4 Sit to Lying (QC): 4 Lying to Sitting/Side of Bed(Q: 4 Sit to Stand (QC): 4 Chair/Hho-uz-Yicrd Xfer(QC): 4 CGA for safety Gait Does the Patient Walk?: No and Walking Goal IS indicated Mode of Locomotion: Walk Anticipated Mode of Locomotion: Walk Walk 10 feet (QC): 88 Walk 50 ft with 2 Turns(QC): 88 Walk 150 ft (QC): 88 Walking 10ft/uneven surface-QC: 88 Balance Sitting Static: Normal Sitting Dynamic: Normal Standing Static: Fair Standing Dynamic: Fair Treatment Patient performed standing exercises 10 reps x 3 sets marching and sit to stand x 5 reps to FWW SBA. seated exercises 15 reps LAQ and AP. Assessment/Needs 54 y.o. male, will benefit from skilled PT to address functional strength and mobility to improve current LOF to safely return to home at maximum LOF. Rehab Potential: Fair PT Fpc Goals Battery Plate Remover Goals PT Fpc Goals Time Frame: Jan 24, 2020 Roll Left & Right (QC): 6 Sit to Lying (QC): 6 Lying-Sitting on Side/Bed(QC): 6 Sit to Stand (QC): 6 Chair/Xzd-xf-Nukvv Xfer(QC): 6 Toilet Transfer (QC): 6 Car Transfer (QC): 6 Does the Patient Walk: Yes Walk 10 feet (QC): 6 Walk 50ft with 2 Turns (QC): 6 Walk 150 ft (QC): 6 Walking 10ft on Uneven Surface: 6 1 Step (curb) (QC): 6 4 Steps (QC): 6 12 Steps (QC): 9 PT Plan Problem List Problem List: Activity Tolerance, Functional Strength, Safety, Balance, Gait, Transfer, Bed Mobility Treatment/Plan Treatment Plan: Continue Plan of Care Treatment Plan: Bed Mobility, Education, Functional Activity Melva, Functional Strength, Gait, Safety, Therapeutic Exercise, Transfers Treatment Duration: Jan 24, 2020 Frequency: 6 times per week Estimated Hrs Per Day: .5 hour per day Patient and/or Family Agrees t: Yes Time/GCodes Time In: 830 Time Out: 905 Total Billed Treatment Time: 35 Total Billed Treatment 1 visit EVModC 20 min EX 15 min ALBERTO LEVINE PT Dec 29, 2019 10:10
--- NOTE | 2019-12-29 10:11 | NUR ---
PTD VANCOMYCIN LABS: SCR 0.91 PLAN: PATIENT RECEIVED VANCOMYCIN 2GRAMS IV X 1 LAST NIGHT (2306), PLAN START 1,500MG IV [id number]. CURRENT ORDER IS FOR X 3 DAYS. Addendum: 12/29/19 at 1339 by JOHN ONEILL [facility] Adjusted dosing time to 2300/1100.
--- NOTE | 2019-12-29 10:25 | Diagnostic Imaging Report ---
INDICATION: Evaluate PICC line placement. COMPARISON: 12/29/2019. FINDINGS: There is cardiomegaly. There is some left basilar atelectasis and/or pneumonitis. There is no pleural effusion or pneumothorax. The mediastinum is unremarkable. The right upper extremity PICC line has its tip in the superior vena cava. IMPRESSION: Left basilar subsegmental atelectasis and/or pneumonitis. Dictated by: Dictated on workstation # [id number]
--- NOTE | 2019-12-29 10:31 | History & Physical ---
JARRELL TAVARES, MEDICAL STUDENT 12/29/19 1031: History of Present Illness History of Present Illness Reason for visit/HPI 54 YO M with PMH of Central Cervical Cord syndrome, CHF, T2DM, Bipolar and Chron ic DAISY who was previously admitted in August for Sepsis from UTI, presents after surgery for central cervical spinal cord syndrome and cardiac arrest s/p 3 stents placed from [facility]. During the cardiac arrest the patient had no cardiac activity for 45 minutes but head imaging showed no evidence of anoxic brain injury. Following his cardiac arrest caused by V fibb the patient was placed on Amiodarone and was managed on ventilator for a short period of time. He was originally brought here to participate in inpatient rehab but was moved up to the ICU when there was concern about the patients blood pressure. The patient is currently being managed on antibiotics, and once stabilized will be moved back down to rehab. Prior to his surgery the patient used a walker to ambulate. Date of Admission Dec 28, 2019 at 16:59 Date Seen by a Provider: Dec 29, 2019 Time Seen by a Provider: 09:00 I consulted on this patient on 12/29/19 10:22 Attending Physician Amanda Spencer DO Admitting Physician Hi Smith - [facility] Consult Allergies and Home Medications Allergies Coded Allergies: No Known Drug Allergies (Unverified , 04/23/19) Home Medications Aspirin 81 Mg Tab.chew, 81 MG PO DAILY, (Reported) Atorvastatin Calcium 40 Mg Tablet, 40 MG PO HS, (Reported) Cariprazine Hydrochloride 1.5 Mg Capsule, 1.5 MG PO DAILY, (Reported) Carvedilol 6.25 Mg Tablet, 6.25 MG PO BID, (Reported) Clopidogrel Bisulfate 75 Mg Tablet, 75 MG PO DAILY, (Reported) Cyclobenzaprine HCl 10 Mg Tablet, 5 MG PO QID PRN for MUSCLE SPASMS, (Reported) TAKES 1/2 (10MG) TABLET Dapagliflozin Propanediol 10 Mg Tablet, 10 MG PO DAILY, (Reported) Diazepam 5 Mg Tablet, 5 MG PO BID PRN for ANXIETY, (Reported) Divalproex Sodium 500 Mg Tablet.dr, 500 MG PO BID, (Reported) Losartan Potassium 25 Mg Tablet, 25 MG PO DAILY, (Reported) Nitroglycerin 0.4 Mg Tab.subl, 0.4 MG SL UD PRN for CHEST PAIN, (Reported) DISSOLVE ONE TABLET UNDER THE TONGUE EVERY 5 MINUTES NEEDED FOR CHEST PAIN. DO NOT EXCEED A TOTAL OF 3 DOSES IN 15 MINUTES Oxycodone HCl/Acetaminophen 1 Each Tablet, 1 TAB PO TID PRN for PAIN-MODERATE (5-7), (Reported) Pantoprazole Sodium 40 Mg Tablet.dr, 40 MG PO DAILY, (Reported) Pregabalin 150 Mg Capsule, 150 MG PO BID, (Reported) Ropinirole HCl 0.5 Mg Tablet, 0.5 MG PO DAILY, (Reported) Sertraline HCl 100 Mg Tablet, 100 MG PO DAILY, (Reported) Past Vnwkoht-Bqykzn-Nyqpbt Hx Patient Social History Marrital Status: Employed/Student: employed Alcohol Use: Denies Use Recreational Drug Use: No Type Used: Pipe 2nd Hand Smoke Exposure: No Physical Abuse Screen: No Sexual Abuse: No Recent Foreign Travel: No Recent Hopitalizations: Yes (dow) Immunizations Up To Date Date of Pneumonia Vaccine: Aug 17, 2015 Date of Influenza Vaccine: Aug 17, 2017 Seasonal Allergies Seasonal Allergies: No Surgeries Yes (RIGHT ROTATOR CUFF) Orthopedic Respiratory Yes (recent intubation r/t resp. distress secondary to surgery) COPD, Pneumonia, Sleep Apnea Currently Using CPAP: Yes Currently Using BIPAP: No Cardiovascular Yes (heart stents x3 recently) Cardiomyopathy, Chronic Edema/Swelling, Coronary Artery Disease, High Cholesterol, Hypertension Neurological No Neuropathy, Paralysis, Spinal Cord Injury Genitourinary Yes (current retention issues) Bladder Infection, Renal Failure Gastrointestinal Yes Chronic Constipation, Ulcer Musculoskeletal Yes (neck/back injury 1999 recent anterior neck surgery on 12/11/19) Arthritis, Chronic Back Pain Endocrine History of Endocrine Disorders: Yes Endocrine Disorders: Diabetes, Non-Insulin dep HEENT History of HEENT Disorders: No Cancer No Psychosocial History of Psychiatric Problem: Yes Behavioral Health Disorders: Bipolar Integumentary History of Skin or Integumenta: No Blood Transfusions History of Blood Disorders: No Family Medical History Family Hx: Cardiovascular disease G8 SISTER Diabetes mellitus G8 SISTER Physical Exam Vital Signs Vital Signs - First Documented 12/28/19 12/28/19 12/28/19 12/28/19 12/29/19 16:54 17:00 17:30 20:19 00:25 Temp 37.3 Pulse 60 Resp 20 B/P (MAP) 114/90 (98) Pulse Ox 98 O2 Delivery Nasal Cannula O2 Flow Rate 4.00 FiO2 4 Capillary Refill : Less Than 3 Seconds Height, Weight, BMI Height: 5'8.00" Weight: 255lbs. oz. 115.724632ps; 32.58 BMI Method:Stated Eyes: Bilateral Eye Normal Inspection, Bilateral Eye PERRL, Bilateral Eye EOMI HEENT: PERRL/EOMI, Normal ENT Inspection, Pharynx Normal Neck: Full Range of Motion, Normal Inspection, Non Tender Respiratory: Normal Breath Sounds, No Accessory Muscle Use, No Respiratory Distress Cardiovascular: Regular Rate, Rhythm, No Gallop, No JVD, No Murmur Gastrointestinal: Normal Bowel Sounds, No Organomegaly Rectal: Deferred Neurologic/Psychiatric: Alert, Oriented x3, wallpaper cleaner II-XII Norm as Tested Reflexes: 2+ Bicep (R); 3+ Bicep (L); 2+ Tricep (R), 2+ Tricep (L), 2+ Knee (R); 3+ Knee (L); 2+ Ankle (R), 2+ Ankle (L) Skin: Normal Color, Warm/Dry, Cool Assessment/Plan Assessment and Plan 54 YO M who was transferred here from [facility] for rehabilitation after surgery for cervical spinal cord syndrome who was sent to ICU for better management of the patient's vitals. Monitor in ICU for stable Vitals Transfer back to rehab once initial concerns for BP Continue Meropenem and Vanc for PNA Resume Home meds Appreciate Dr. Barrientos recommendations Appreciate Dr. Franklin's recommendations Clinical Quality Measures DVT/VTE Risk/Contraindication: Risk Factor Score Per Nursin RFS Level Per Nursing on Admit: 4+=Very High AMANDA SPENCER DO 12/29/192042: History of Present Illness History of Present Illness Reason for visit/HPI CC: Decompensation in rehab HPI: This is a 54yoWM rehab pt that was just admitted on Sunday after a complicated [facility] course after cervical spine surgery due to central cord syndrome that had left him wheelchair bound but underwent the surgery and then had cardiac arrest. CPR was performed for 45 minutes and needed significant recovery acute on chronic disabled status but yesterday he began having more hyp oxia, some lower blood pressure and findings consistent with decompensation so he was sent to the ICU. Pt was placed on Meropenem and Vancomycin for presumed B/L lower basilar pneumonia. Influenza was swabbed and white count was 11 that was normalized today and overall he is very weak but will evaluate to see if he can tolerate inpatient rehab and if his health is too fragile will need to look at a assisted placement. Allergies and Home Medications Allergies Coded Allergies: No Known Drug Allergies (Unverified , 04/23/19) Home Medications Aspirin 81 Mg Tab.chew, 81 MG PO DAILY, (Reported) Atorvastatin Calcium 40 Mg Tablet, 40 MG PO HS, (Reported) Cariprazine Hydrochloride 1.5 Mg Capsule, 1.5 MG PO DAILY, (Reported) Carvedilol 6.25 Mg Tablet, 6.25 MG PO BID, (Reported) Clopidogrel Bisulfate 75 Mg Tablet, 75 MG PO DAILY, (Reported) Cyclobenzaprine HCl 10 Mg Tablet, 5 MG PO QID PRN for MUSCLE SPASMS, (Reported) TAKES 1/2 (10MG) TABLET Dapagliflozin Propanediol 10 Mg Tablet, 10 MG PO DAILY, (Reported) Diazepam 5 Mg Tablet, 5 MG PO BID PRN for ANXIETY, (Reported) Divalproex Sodium 500 Mg Tablet.dr, 500 MG PO BID, (Reported) Losartan Potassium 25 Mg Tablet, 25 MG PO DAILY, (Reported) Nitroglycerin 0.4 Mg Tab.subl, 0.4 MG SL UD PRN for CHEST PAIN, (Reported) DISSOLVE ONE TABLET UNDER THE TONGUE EVERY 5 MINUTES NEEDED FOR CHEST PAIN. DO NOT EXCEED A TOTAL OF 3 DOSES IN 15 MINUTES Oxycodone HCl/Acetaminophen 1 Each Tablet, 1 TAB PO TID PRN for PAIN-MODERATE (5-7), (Reported) Pantoprazole Sodium 40 Mg Tablet.dr, 40 MG PO DAILY, (Reported) Pregabalin 150 Mg Capsule, 150 MG PO BID, (Reported) Ropinirole HCl 0.5 Mg Tablet, 0.5 MG PO DAILY, (Reported) Sertraline HCl 100 Mg Tablet, 100 MG PO DAILY, (Reported) Patient Home Medication List Home Medication List Reviewed: Yes Past Bqifkei-Iowxsk-Vmplbi Hx Patient Social History Marrital Status: Employed/Student: unemployed Alcohol Use: Denies Use Smoking Status: Former Smoker Surgeries Coronary Stent, Orthopedic Respiratory COPD, Pneumonia, Sleep Apnea Cardiovascular Yes Atrial Fibrillation, Cardiomyopathy, Chronic Edema/Swelling, Coronary Artery Disease, High Cholesterol, Hypertension, Peripheral Vascular Neurological Yes Neuropathy, Paralysis Genitourinary Benign Prostatic Hyperpl, Kidney Infection, Prostate Problems, Bladder Infection, Neurogenic Bladder Gastrointestinal Yes Chronic Constipation Musculoskeletal Degenerate Disk Disease, Chronic Back Pain Endocrine Endocrine Disorders: Diabetes, Non-Insulin dep Psychosocial History of Psychiatric Problem: Yes Behavioral Health Disorders: Anxiety, Bipolar, Depression Family Medical History Family Hx: Cardiovascular disease G8 SISTER Diabetes mellitus G8 SISTER Review of Systems Constitutional: see HPI, weakness Respiratory: short of breath Cardiovascular: palpitations Psychiatric/Neurological: Anxiety, Depressed All Other Systems Reviewed Negative Unless Noted: Yes Physical Exam General Appearance: No Apparent Distress, WD/WN, Chronically ill Eyes: Bilateral Eye Normal Inspection, Bilateral Eye PERRL, Bilateral Eye EOMI HEENT: PERRL/EOMI, Normal ENT Inspection, Pharynx Normal Neck: Full Range of Motion, Normal Inspection, Non Tender, Supple, Carotid Bruit Respiratory: Chest Non Tender, No Accessory Muscle Use, No Respiratory Distress, Crackles, Decreased Breath Sounds Cardiovascular: Regular Rate, Rhythm, No Edema, No Gallop, No JVD, No Murmur, Normal Peripheral Pulses Gastrointestinal: Normal Bowel Sounds, No Organomegaly, No Pulsatile Mass, Non Tender, Soft Back: Normal Inspection, No CVA Tenderness, Decreased Range of Motion (neck) Extremity: Normal Capillary Refill, Normal Inspection, Normal Range of Motion, Non Tender, No Calf Tenderness, No Pedal Edema Neurologic/Psychiatric: Alert, Oriented x3, No Motor/Sensory Deficits, Normal Mood/Affect, wallpaper cleaner II-XII Norm as Tested, Motor Weakness (all extremities no changes) Skin: Normal Color, Warm/Dry Lymphatic: No Adenopathy Assessment/Plan Assessment and Plan Assessment: Bilateral bibasilar PNA Sepsis Elevated troponin Problems: (1) Sepsis (2) Pneumonia (3) Respiratory distress (4) Elevated troponin Status: Acute (5) Former smoker (6) Central cord syndrome (7) DAISY on CPAP (8) Debility Status: Acute (9) CHF (congestive heart failure) (10) Edema (11) CAD (coronary artery disease) (12) Bipolar disorder Admission Diagnosis Admission Status: Observation Supervisory-Addendum Brief Verification & Attestation Participated in pt care: history, MDM, physical Personally performed: exam, history, MDM, supervision of care Care discussed with: Medical Student Procedures: n/a Results interpretation: Verified all documentation Verification and Attestation of Medical Student E/M Service A medical student performed and documented this service in my presence. I reviewed and verified all information documented by the medical student and made modifications to such information, when appropriate. I personally performed the physical exam and medical decision making. Amanda Spencer, Dec 29, 2019,20:42 JARRELL TAVARES, MEDICAL STUDENT Dec 29, 2019 10:31 AMANDA SPENCER DO Dec 29, 2019 20:43
--- NOTE | 2019-12-29 12:02 | Occupational Therapy Eval ---
OT Evaluation-General/PLF Medical Diagnosis Admission Date Dec 28, 2019 at 16:59 Medical Diagnosis: ARF, UTI, Sepsis Onset Date: Dec 28, 2019 Therapy Diagnosis Therapy Diagnosis: Weakness, Decreased ADL skills Height/Weight Height (Feet): 5 Height (Inches): 8.00 Weight (Pounds): 255 Precautions Precautions/Isolations: Fall Prevention, Standard Precautions Weight Bear Status Weight Bearing Restriction: Weight Bearing/Tolerated Referral Physician: Nesha Referral Reason: Activity Tolerance, Self Care, Evaluation/Treatment, Strengthening/ROM Referral Comments C-Collar to be on 6-8 weeks from surgery. Lifting restriction of 10 lbs. No active movement of neck 6-8 weeks, until clearance from physician. Medical History Pertinent Medical History: Arthritis, CAD, DM, HTN, HI, Rheumatoid Arthritis Additional Medical History Bipolar, Heart stents x 3, Central cord syndrome Current History Pt. had significant stenosis in neck. Went in for surgery. Had difficulty moving hands/UE after surgery. Pt. began having heart issues and coded. Pt. on ventilator support approximately 4 days per spouse. Pt. transferred to ARU and became SOA. Transferred back to ICU. Reviewed History: Yes Social History Home: Single Level Current Living Status: Spouse Entry Into Home: Stairs Without Railing Spouse reports that they have approximately 3 seperated steps to get into home. ADL-Prior Level of Function SCALE: Activities may be completed with or without assistive devices. 5-Qjvcholyol-dwljijh completes the activity by him/herself with no assistance from a helper. 5-Set-up or Clean-up Assistance-helper sets up or cleans up; patient completes activity. [place] assists only prior to or following the activity. 4-Supervision or Touching Assistance-helper provides verbal cues and/or touching/steadying and/or contact guard assistance as patient completes activity. Assistance may be provided throughout the activity or intermittently. 3-Partial/Moderate Assistance-helper does LESS THAN HALF the effort. [place] lifts, holds or supports trunk or limbs, but provides less than half the effort. 2-Substantial/Maximal Assistance-helper does MORE THAN HALF the effort. [place] lifts or holds trunk or limbs and provides more than half the effort. 2-Bqrsonfwo-yqfeml does ALL the effort. Patient does none of the effort to complete the activity. Or, the assistance of 2 or more helpers is required for the patient to complete the activity. If activity was not attempted, code reason: 7-Patient Refused. 9-Not Applicable-not attempted and the patient did not perform the activity before the current illness, exacerbation or injury. 10-Not Attempted due to Environmental Limitations-(lack of equipment, weather restraints, etc.). 88-Not Attempted due to Medical Conditions or Safety Concerns. ADL PLOF Comments Pt. was receiving some caregiving assistance prior to neck surgery. He states that they assisted with cooking, cleaning, and bathing/dressing if he needed it. Spouse lives with him and she reports that at this time, they will have no more caregiving assistance when he transfers home. Pt. does not drive. Was using walker for ambulation. Self Care: Needed Some Help Functional Cognition: Independent DME/Equipment: Bath Chair, Tub/Shower DME/Equipment Comments Pt. states that he has been trained with AE, but does not have any at home for bathing/dressing. Pt. has chair that sits in tub, and walker. Drive Self: No OT Current Status Subjective No pain reported. Pt. does state that he is very tired. Appearance Pt. had been up with PT sitting in chair. Spouse reports that he got back to bed because he had to have a PICC line placed. Pt. is tired and attempting to sleep. Pt. does wake up briefly to work with OT. Mental Status/Objective Patient Orientation: Person, Place Attachments: IV, Telemetry Current Hand Dominance: Right Upper Extremity ROM Pt. completed ROM assessment at bed level. Pt. is able to flex right shoulder to approximately 80 degrees. Full finger flexion and elbow flexion noted. Pt. is able to flex left shoulder approximately 45 degrees. Limited ROM in left hand due to pulse-ox, lines. Upper Extremity Coordination Right- impaired Left- impaired Upper Extremity Strength Right hand strength- 3/5 Left hand strength- 2+/5 Shoulder strength not tested due to positioning of pt. and recent neck surgery. Edema: Noted that left hand swollen and edematous. Spouse reports that left hand has been swollen since . ADL-Treatment Eating (QC): 3 (Spouse and pt. report that spouse is having to assist pt. with feeding as he is having difficulty with grasp of utensil and bringing utensil to mouth from limited shoulder ROM.) Toileting Hygiene (QC): 1 Pt. declines OOB activity at this time with OT. States that he has had busy mo rning with PT, and then PICC line placement. Respiratory therapy came in to give pt. breathing treatment, and so OT will come back as time allows later. Spouse in room and able to give OT information. Pt. able to participate in UE assessment. States that he has difficulty with bringing food to mouth. OT brought in therapy hand sponge to facilitate strength and decrease edema. Educated pt. and spouse on this. Pt. unable to participate as he was holding breathing treatment at bed level. OT also brought in built up foam handles to increase grasp with utensils. OT also offered curved therapy spoon to decrease distance from hand to mouth during feeding activity. Pt. and spouse verbalize understanding. Pt. requests to rest at this time. Will continue to monitor pt. and work toward increased overall strength. Education OT Patient Education: Correct positioning, Exercise program, Modified ADL techniques, Purpose of tx/functional activities, Reviewed precautions, Rehab pro cess, Transfer techniques, Use of adapted equipment Teaching Recipient: Patient, Significant Other Teaching Methods: Demonstration, Discussion Response to Teaching: Verbalize Understanding, Return Demonstration OT Short Term Goals Short Term Goals Time Frame: Jan 05, 2020 Eatin Oral hygiene: 4 Toileting hygiene: 3 Shower/bathe self: 3 Upper body dressin Lower body dressin Putting on/taking off footwear: 3 OT Acid Patroller Goals [facility] Goals Time Frame: Jan 12, 2020 Eating (QC): 6 Oral Hygiene (QC): 6 Toileting Hygiene (QC): 5 Shower/Bathe Self (QC): 4 Upper Body Dressing (QC): 4 Lower Body Dressing (QC): 4 On/Off Footwear (QC): 4 Additional Goals: 1-Demonstrate ADL Tasks, 2-Verbalize Understanding, 3- ImproveStrength/Melva 1=Demonstrate adherence to instructed precautions during ADL tasks. 2=Patient will verbalize/demonstrate understanding of assistive devices/modifications for ADL. 3=Patient will improve strength/tolerance for activity to enable patient to perform ADL's. OT Education/Plan Problem List/Assessment Assessment: Decreased Activ Tolerance, Decreased UE Strength, Impaired Coordination, Impaired I ADL's, Impaired Self-Care Skills, Restricted Funct UE ROM Discharge Recommendations Plan/Recommendations: Continue POC Therapy Discharge Recommendati: Post Acute OT Equpiment Recommendations-D/C: Extended Bath Bench, Hip Kit Treatment Plan/Plan of Care Treatment,Training & Education: Yes Patient would benefit from OT for education, treatment and training to promote independence in ADL's, mobility, safety and/or upper extremity function for ADL's. Plan of Care: ADL Retraining, Functional Mobility, UE Funct Exercise/Act Treatment Duration: Jan 12, 2020 Frequency: 5 times per week Estimated Hrs Per Day: .25 hour per day Agreement: Yes Rehab Potential: Fair Time/GCodes Start Time: 11:20 Stop Time: 11:40 Total Time Billed (hr/min): 20 Billed Treatment Time 1, CARLO HICKMAN OT Dec 29, 2019 12:02
--- NOTE | 2019-12-29 13:49 | ST Dysphagia Evaluation ---
Speech Evaluation-General Medical Diagnosis ARF, UTI, Sepsis Onset Date: Dec 28, 2019 Therapy Diagnosis Therapy Diagnosis: Oropharyngeal Dysphagia Precautions Precautions: Aspiration Referral Referring Physician: Dr. Jeffries Reason for Referral: Evaluation/Treatment Medical History Pertinent Medical History: Arthritis, CAD, DM, HTN, [place], Rheumatoid Arthritis Reviewed History: Yes Social History Current Living Status: Spouse Speech PLF/Current-Dysphagia Prior Level of Function Patient reported receiving a DYSPHAGIA II diet with nectar thickened liquids prior to hospital admission. Subjective Patient was alert, pleasant, and cooperative for all evaluation tasks. Patient's was present for the evaluation and provided additional information as needed. Patient reported that he had been given ground meat and coleslaw for lunch and did not eat it. Additionally, patient received thin iced tea and reported that he had choked on it the day before. Cognitive Status Patient Orientation: Person, Place, Time, Eyes Open, Situation Oral Motor Skills Dentition: Natural Current Food Consistancy: Mechanical Soft, [place] Liquids Ability to Follow Directions: Good Oral Expression Ability: No Impairment Voice Voice Phonatory-Based Quality: Normal Voice Pitch: Normal Voice Loudness: Normal Face Facial Symmetry: Symmetrical Oral-Facial Assessment Oral-Facial Dentition: Normal Labial Seal Description: Normal Smile: Normal Lingual Protrusion: Normal Lingual ROM: Normal Lingual Strength: Normal Gag Reflex Response: Did not test Dysphagia Evaluation Consistencies Presented: Mechanical Soft, [place] Thick Liquid, Pureed Pharyngeal Phase: Multiple Swallow Attempts Funct. Velo/Pharyngeal Symptom: Clears Throat Dietary Recommendations: Mechanical Soft Liquid Recommendations: [place] Consistancy Swallowing Precautions: Alternate Liquids/Solids, Double Swallow, Decreased Bolus 1/2 Tsp, Liquids from Spoon, Small Bites and Sips, Sitting Upright 90 Degrees, Sitting 90 Degrees 30 Post Intake Dysphagia Evaluation Summary Patient was admitted the the ICU s/p sepsis. Patient was presented with nectar thickened liquid via 1/2 tsp spoon and demonstrated no s/s of penetration /aspiration. Patient was then presented with puree and mechanical soft consistencies via 1/2 tsp spoon and demonstrated no s/s of penetration/aspiration. Patient will receive a DYSPHAGIA II diet with nectar thickened liquids. Additionally, patient will utilize compensatory strategies of alternating liquids and solids, small bites and sips, and sitting upright during all oral intake. Barriers to Learning Current medical status. Speech Short Term Goals Short Term Goals Short Term Goals 1. Patient will tolerate least restrictive diet without s/s of aspiration at 90%. 2. Patient will utilize compensatory strategies as trained at 90% with minimal cues. Speech Long-Term Goals Long-Term Goals Patient will maintain adequate nutrition/hydration via safe and effective swallow function. Speech-Plan Patient/Family Goals Patient/Family Goals: Patient reported that he wishes to return home to previous level of mobility and independence. Treatment Plan Speech Therapy Treatment Plan: Continue Plan of Care Treatment Duration: Jan 02, 2020 Frequency: 2 times per week Estimated Hrs Per Day: .25 hour per day Rehab Potential: Fair Barriers to Learning: Current medical status Pt/Family Agrees to Plan: Yes Safety Risks/Education Teaching Recipient: Patient, Significant Other Teaching Methods: Demonstration, Discussion Response to Teaching: Verbalize Understanding Education Topics Provided: Utilization of compensatory strategies during all oral intake Time Speech Therapy Time In: 13:00 Speech Therapy Time Out: 13:15 Total Billed Time: 15 Billed Treatment Time 1NELYKENDELLBelkis ISRA Evangelista Dec 29, 2019 13:49
--- NOTE | 2019-12-29 14:59 | NUR ---
"RD ASSESSMENT PMHx: cardiomyopathy; CAD; HTN; hypercholesterolemia; paralysis; renal failure; chronic constipation; DM PT INTERACTION: Pt was awake and pleasant during consult for MST score. Pt states current appetite is poor and has been since admit. Note avg PO intake of 33% x3meal, per chart review. Pt states following a low-CHO diet at home, and has some issues with chewing/swallowing food. Pt states no recent issues with n/v/c/d at this time, and that his last BM was 2days ago. Note pt currently on bowel regimen of colace PRN, per chart review. Pt states recent 30# wt loss x3mon. Note recent 26# wt loss x6mon, per chart review. This is 10% wt loss x6mon. Pt states current DM management is great and that his blood sugars are good. Note unable to determine recent HbA1c, per chart review. While pt does have poor PO intake, his wt hx does not meet criteria for malnutrition per ASPEN guidelines. Pt is still at risk for malnutrition if PO intake remains low. ABNORMAL NUTRITION-RELATED LAB VALUES LOW: HIGH: glu 156 Est. kcal needs: 9666-3473 kcal | 15-18 kcal/kg Est. Pro needs: 82-103 g Pro | 0.8-1.0 g Pro/kg PES STATEMENT: Inadequate oral intake (NI-2.1) related to loss of appetite as evidenced by pt interview | avg PO intake 33% x3meal INTERVENTION: Continue with current diet order of Clear Liquid diet. Advance diet when medically able and as tolerated. Add Ensure Clear (vary) to meals TID, for increased kcal intake. Provides 250 kcal and 8 g Pro per serving. Will continue to follow and reassess as pt needs and status change. MONITOR/EVALUATE: PO Intake; Plan of Care; Hydration Status; Weight Status; Lab Values Lindsey Villanueva, MS, RD, LD"
--- NOTE | 2019-12-29 15:02 | NUR ---
SPOKE WITH THE PT (AND HIS - SHE HAD A LIST) WELL CALLING [facility] TO COMPLETE THE MED REC. I HAD TO LEAVE A MESSAGE IN REGARDS TO A COUPLE OF HIS MEDICATIONS HE GETS FROM THE PALS PROGRAM. WHEN I HEAR BACK IF I NEED TO CHANGE THE MED REC I WILL DO SO AT THAT TIME- ALONG WITH UPDATING THE NOTES.
[2019-12-29 15:14] LABS: ABG BASE EXCESS 1.4 MMOL/L (-2.5-2.5); ABG OXYGEN SATURATION 94 % (94-100); ABG PCO2 32 MMHG (35-45); ABG PH 7.49 (7.37-7.43); ABG PO2 63 MMHG (79-93); ABG TCO2 25.6 MMOL/L (21.0-31.0)
[2019-12-29 15:15] LABS: ALLENS TEST YES-POS; INSPIRED O2 2 L; PATIENT TEMP 36.4; VENTILATOR NO
--- NOTE | 2019-12-29 15:29 | NUR ---
CM/SS visited with patient per [facility] work consult. The patient was previously admitted to the inpatient rehab unit. CM/SS visited with the patient to discuss alternative options if he did not meet criteria to be readmitted to rehab. A patient preference form was provided to the patient and spouse. CM/SS discussed the potential barriers with long term and home health. The patient and his spouse verbalized understanding. CM/SS will continue to communicate with inpatient rehab for discharge planning. No other needs at this time.
--- NOTE | 2019-12-29 15:52 | NUR ---
4ML OF DEFINITY SOLUTION WAS GIVEN
[2019-12-29] MEDS: ENOXAPARIN 40 MG/0.4 ML (LOVENOX) SYR SC SCH (17:16)
[2019-12-29] MEDS ORDERED: CLOPIDOGREL 75 MG (PLAVIX) TABLET PO ONE (21:00)
[2019-12-29] MEDS ORDERED: NITROGLYCERIN 0.4 MG SL TABS BTL 25'S SL PRN (21:00)
[2019-12-29] MEDS ORDERED: DIAZEPAM 5 MG (VALIUM) TABLET PO PRN (21:00)
[2019-12-29] MEDS ORDERED: CYCLOBENZAPRINE 10 MG (FLEXERIL) TAB PO PRN (21:00)
[2019-12-29] MEDS: PREGABALIN 150 MG (LYRICA) CAPSULE PO SCH (22:22)
[2019-12-29] MEDS: CARVEDILOL 6.25 MG (COREG) TAB PO SCH (22:23)
[2019-12-29] MEDS ORDERED: DIVALPROEX 250 MG DELAYED RELEASE (DEPAKOTE) TAB PO ONE (22:24)
[2019-12-29] MEDS: DIVALPROEX 500 MG DELAYED RELEASE (DEPAKOTE) TAB PO SCH (22:40)
[2019-12-29] MEDS: oxyCODONE/APAP 7.5-325 MG (PERCOCET 7.5) TABLET PO PRN (23:00)
[2019-12-30] VITALS (10 sets, daily range): BP systolic 92–140; BP diastolic 71–96
[2019-12-30] MEDS: RT-ALBUTEROL/IPRATROPIUM 3 ML (DUONEB) VIAL INH SCH ×3 (01:28→10:55)
[2019-12-30 03:19] LABS: BASOPHILS % (AUTO) 0 % (0-10); EOSINOPHILS # (AUTO) 0.1 10^3/uL (0.0-0.3); EOSINOPHILS % (AUTO) 1 % (0-10); HEMATOCRIT 30 % (40-54); LYMPHOCYTES # (AUTO) 1.8 X 10^3 (1.0-4.0); LYMPHOCYTES % (AUTO) 24 % (12-44); MEAN CORPUSCULAR HEMOGLOBIN 27 PG (25-34); MEAN CORPUSCULAR HGB CONC 33 G/DL (32-36); MEAN CORPUSCULAR VOLUME 82 FL (80-99); MEAN PLATELET VOLUME 9.5 FL (7.4-10.4); MONOCYTES # (AUTO) 0.8 X 10^3 (0.0-1.0); MONOCYTES % (AUTO) 10 % (0-12); NEUTROPHILS % (AUTO) 65 % (42-75); PLATELET COUNT 204 10^3/uL (130-400); RED CELL DISTRIBUTION WIDTH 17.1 % (10.0-14.5); WHITE BLOOD COUNT 7.7 10^3/uL (4.3-11.0)
[2019-12-30 03:39] LABS: ALANINE AMINOTRANSFERASE 17 U/L (0-55); ALBUMIN 3.3 GM/DL (3.2-4.5); ALKALINE PHOSPHATASE 124 U/L (40-136); BILIRUBIN,TOTAL 0.6 MG/DL (0.1-1.0); BUN/CREATININE RATIO 15; CALCIUM 8.7 MG/DL (8.5-10.1); CARBON DIOXIDE 24 MMOL/L (21-32); CHLORIDE 105 MMOL/L (98-107); CHOLESTEROL 140 MG/DL (< 200); CREATININE SERUM 0.82 MG/DL (0.60-1.30); GFR ESTIMATED > 60; GLUCOSE 159 MG/DL (70-105); HDL CHOLESTEROL 34 MG/DL (40-60); PHOSPHORUS 3.1 MG/DL (2.3-4.7); POTASSIUM 3.8 MMOL/L (3.6-5.0); SODIUM 139 MMOL/L (135-145); TOTAL PROTEIN 6.2 GM/DL (6.4-8.2); TRIGLYCERIDES 181 MG/DL (<150); VLDL CHOLESTEROL 36 MG/DL (5-40)
--- NOTE | 2019-12-30 05:47 | Pulmonary Progress Note ---
Subjective Time Seen by a Provider: 05:42 Sepsis Event Evaluation Height, Weight, BMI Height: 5'8.00" Weight: 255lbs. oz. 115.245130qx; 32.58 BMI Method:Stated Focused Exam Lactate Level 12/28/19 17:30: Lactic Acid Level 2.25*H 12/28/19 21:12: Lactic Acid Level 1.43 Exam Exam Vital Signs Date Time Temp Pulse Resp B/P (MAP) Pulse Ox O2 Delivery O2 Flow Rate FiO2 12/30/19 04:00 57 20 129/77 (94) 97 Nasal Cannula 2.00 12/30/19 04:00 Nasal Cannula 2.00 12/30/19 03:00 62 10 92/71 (78) 98 Nasal Cannula 2.00 12/30/19 02:00 56 20 110/84 (93) 91 Nasal Cannula 2.00 12/30/19 01:28 95 Nasal Cannula 2.00 12/30/19 01:00 55 109/83 (92) 95 Nasal Cannula 2.00 12/30/19 00:44 57 12/30/19 00:00 60 11 101/81 (88) 98 Nasal Cannula 2.00 12/30/19 00:00 Nasal Cannula 2.00 12/30/19 00:00 35.8 12/29/19 23:00 72 12 139/92 (108) 93 Nasal Cannula 2.00 12/29/19 22:40 94 Room Air 12/29/19 22:00 62 8 118/89 (99) 95 Nasal Cannula 2.00 12/29/19 21:00 68 23 112/82 (92) 89 Nasal Cannula 2.00 12/29/19 20:00 Nasal Cannula 2.00 12/29/19 20:00 70 18 140/72 (94) 95 Nasal Cannula 2.00 12/29/19 20:00 36.8 12/29/19 19:00 74 7 126/91 (103) 97 Nasal Cannula 2.00 12/29/19 18:56 95 Nasal Cannula 2.00 12/29/19 18:48 71 12/29/19 18:00 71 10 140/82 (101) 96 Nasal Cannula 2.00 12/29/19 17:00 81 141/110 (120) 97 Nasal Cannula 2.00 12/29/19 16:09 Nasal Cannula 2.00 12/29/19 16:00 76 30 99 Nasal Cannula 2.00 12/29/19 15:54 94 Nasal Cannula 2.00 12/29/19 15:24 36.7 12/29/19 14:00 69 24 146/89 (108) 97 Nasal Cannula 2.00 12/29/19 13:06 Nasal Cannula 2.00 12/29/19 13:00 76 15 141/79 (99) 95 Nasal Cannula 4.00 12/29/19 12:23 69 12/29/19 12:22 Nasal Cannula 2.00 12/29/19 12:00 69 18 145/89 (107) 93 Nasal Cannula 4.00 12/29/19 11:41 92 Room Air 12/29/19 11:09 38.1 12/29/19 11:00 70 11 135/91 (106) 93 Nasal Cannula 4.00 12/29/19 10:00 70 16 126/83 (97) 94 Nasal Cannula 4.00 12/29/19 09:00 76 27 110/92 (98) 94 Nasal Cannula 4.00 12/29/19 08:00 71 14 149/92 (111) 93 Nasal Cannula 4.00 12/29/19 08:00 Nasal Cannula 2.00 12/29/19 07:09 36.9 12/29/19 07:00 71 21 136/87 (103) 93 Nasal Cannula 4.00 12/29/19 07:00 68 12/29/19 06:00 70 16 121/86 (98) 90 Nasal Cannula 4.00 I & O 12/30/19 07:00 Intake Total 2070 ml Output Total 1800 ml Balance 270 ml Height & Weight Height: 5'8.00" Weight: 255lbs. oz. 115.259097iz; 32.58 BMI Method:Stated General Appearance: No Apparent Distress, WD/WN, Chronically ill HEENT: PERRL/EOMI, Normal ENT Inspection, Pharynx Normal Neck: Full Range of Motion, Normal Inspection, Non Tender, Supple, Carotid Bruit Respiratory: Chest Non Tender, No Accessory Muscle Use, No Respiratory Distress, Crackles, Decreased Breath Sounds Cardiovascular: Regular Rate, Rhythm, No Edema, No Gallop, No JVD, No Murmur, Normal Peripheral Pulses Capillary Refill: Less Than 3 Seconds Gastrointestinal: normal bowel sounds, non tender, soft Extremity: Normal Capillary Refill, Normal Inspection, Normal Range of Motion, Non Tender, No Calf Tenderness, No Pedal Edema Neurologic/Psychiatric: Alert, Oriented x3, No Motor/Sensory Deficits, Normal Mood/Affect, cable 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-XII Norm as Tested, Motor Weakness (all extremities no changes) Skin: Normal Color, Warm/Dry Lymphatic: No Adenopathy Results Lab Laboratory Tests 12/28/19 17:30 12/29/19 03:25 12/30/19 03:15 Assessment/Plan Assessment/Plan Acute respiratory distress and transferred to ICU from rehab -D/C MAT and londono SVNs to q4 and Q 2 PRN Duoneb - influenza swab - Negative Atelectasis -Sart IS -Continue PT/OT obesity with possible DAISY -BiPAP PRN -Will need out pt PSG UTI with severe sepsis and septic shock - Khris and Chauncey currently -Await repeat dunaway cultures -Diflucan CHF with EF 25-30% -Cardiology following --Check echocardiogram -SL IVF -Check BNP Anemia -Check Occult stool CAD with elevated troponin -Cardiology consulted NSTEMI - denies CP -Cardiology following Sacral pressure ulcer stage II -Wound care Bipolar disorder HX Generalized debility/weakness - continue PT/OT NAS MALDONADO DO Dec 30, 2019 05:47
--- NOTE | 2019-12-30 05:52 | Diagnostic Imaging Report ---
CLINICAL INDICATION: Patient with shortness of air and hypotension. EXAM: Portable chest x-ray upright view. Comparisons: Portable chest x-ray dated 12/29/2019. Findings: There is stable mild discoid atelectasis involving the left lung base. There is stable mild right basilar atelectasis versus infiltrate. Remainder of the lungs are clear. There is no pleural effusion or pneumothorax. Pulmonary vasculature and cardiac silhouette within normal limits for portable projection. There is mildly hypertrophic spurs involving the thoracic spine. Again seen right PICC line in stable good position. IMPRESSION: Stable chest x-ray exam with bibasilar atelectasis. Superimposed infiltrates in the right lung base cannot be completely excluded. Dictated by: Dictated on workstation # [id number]
[2019-12-30] MEDS ORDERED: MAGNESIUM 1 GM/100 ML IVPB 100 ML IV SCH (06:00)
[2019-12-30] MEDS ORDERED: POTASSIUM CL 10MEQ/50ML IVPB 50 ML IV SCH (06:00)
[2019-12-30] MEDS ORDERED: KCL 20 MEQ TAB (K-DUR) PO SCH (06:00)
[2019-12-30] MEDS: MEROPENEM 500 MG in WATER (STERILE) FOR INJECTION 10 ML IV SCH (06:11)
--- NOTE | 2019-12-30 07:20 | Cardiology Progress Note ---
Subjective Date Seen by Provider: Dec 30, 2019 Time Seen by Provider: 07:19 Subjective/Events-last exam Patient is laying down in bed, feeling better, breathing better. Review of Systems General: No Chills, No Night Sweats, No Fatigue, No Malaise, No Appetite, No Other HEENT: No Head Aches, No Visual Changes, No Eye Pain, No Ear Pain, No Dysphasia, No Sinus Congestion, No Post Nasal Drip, No Sore Throat, No Other Pulmonary: Dyspnea; No Cough, No Pleuritic Chest Pain, No Other Cardiovascular: No: Chest Pain, Palpitations, Orthopnea, Paroxysmal Noc. Dyspnea, Edema, Lt Headedness, Other Focused Exam Lactate Level 12/28/19 17:30: Lactic Acid Level 2.25*H 12/28/19 21:12: Lactic Acid Level 1.43 Objective-Cardiology Exam Last Set of Vital Signs Vital Signs 12/29/19 12/30/19 12/30/19 12/30/19 00:25 00:00 06:00 07:06 Temp 35.8 Pulse 60 Resp 9 B/P (MAP) 124/96 (105) Pulse Ox 93 O2 Delivery Room Air O2 Flow Rate 2.00 FiO2 4 Capillary Refill : Less Than 3 Seconds I&O Intake and Output 12/30/19 00:00 Intake Total 2450 ml Output Total 2075 ml Balance 375 ml Intake Oral 930 ml IV Total 1520 ml Output Urine Total 2075 ml General: Alert, Oriented X3, Cooperative HEENT: Atraumatic, PERRLA Neck: Supple, No JVD, No Thyromegaly Lungs: Normal Air Movement, Other (Bilateral rhonchi) Heart: Regular Rate, Normal S1, Normal S2, No Murmurs Abdomen: Normal Bowel Sounds, Soft, No Tenderness, No Hepatosplenomegaly, No Masses Extremities: No Clubbing, No Cyanosis, No Edema, Normal Pulses, No Tenderness/Swelling Skin: No Rashes, No Breakdown, No Significant Lesion Neuro: Normal Speech, Normal Tone, Sensation Intact Psych/Mental Status: Mental Status NL, Mood NL Results Lab Laboratory Tests 12/30/19 03:15 A/P-Cardiology Admission Diagnosis Coronary artery disease Congestive heart failure Hypertension Hyperlipidemia Assessment/Plan Coronary artery disease, history of cardiac catheterization with stenting in July 2009 and then another cardiac catheterization with 3 stents done earli er this month, continue on aspirin and Plavix without interruption. Status post acute respiratory failure, currently back to baseline, having shortness of breath. Continue to monitor Congestive heart failure, chronic compensated left ventricular systolic dysfunction, ischemic cardiomyopathy, echocardiogram showed ejection fraction 40-45 percent which is significant improvement compared to the previous study. Continue to monitor Mild elevation in troponin, probably type II NV secondary to hypoxemia and hypotension, trending down. Continue to monitor Status post C-spine surgery, recovering slowly Hyperlipidemia maintained on Lipitor Bipolar disorder, managed by primary care physician Clinical Quality Measures DVT/VTE Risk/Contraindication: Risk Factor Score Per Nursin RFS Level Per Nursing on Admit: 4+=Very High ALINA GREGG MD Dec 30, 2019 07:20
[2019-12-30] MEDS: DIVALPROEX 500 MG DELAYED RELEASE (DEPAKOTE) TAB PO SCH (08:13)
[2019-12-30] MEDS: PREGABALIN 150 MG (LYRICA) CAPSULE PO SCH (08:14)
[2019-12-30] MEDS: CARVEDILOL 6.25 MG (COREG) TAB PO SCH (08:14)
[2019-12-30] MEDS ORDERED: SERTRALINE 100 MG (ZOLOFT) TAB PO SCH (09:00)
[2019-12-30] MEDS ORDERED: PANTOPRAZOLE 40 MG (PROTONIX) TAB PO SCH (09:00)
[2019-12-30] MEDS ORDERED: ASPIRIN 81 MG CHEW (CHILDREN'S ASA) PO SCH (09:00)
[2019-12-30] MEDS ORDERED: rOPINIRole 0.25 MG (REQUIP) TAB PO SCH (09:00)
[2019-12-30] MEDS ORDERED: NON-FORMULARY MEDICATION 1 EA EA (Ropinirole HCl 0.5 MG) PO SCH (09:00)
[2019-12-30] MEDS ORDERED: NON-FORMULARY MEDICATION 1 EA EA (Dapagliflozin Propanediol (Farxiga) 10 MG) PO SCH (09:00)
[2019-12-30] MEDS ORDERED: LOSARTAN 25 MG (COZAAR) TAB PO SCH (09:00)
[2019-12-30] MEDS ORDERED: CLOPIDOGREL 75 MG (PLAVIX) TABLET PO SCH (09:00)
[2019-12-30] MEDS ORDERED: NON-FORMULARY MEDICATION 1 EA EA (Cariprazine Hydrochloride (Vraylar) 1.5 MG) PO SCH (09:00)
[2019-12-30] MEDS ORDERED: FLUCONAZOLE 100 MG/50 ML IVPB IV SCH ×2 (09:00)
[2019-12-30] MEDS: oxyCODONE/APAP 7.5-325 MG (PERCOCET 7.5) TABLET PO PRN (09:01)
--- NOTE | 2019-12-30 09:08 | NUR ---
SPOKE WITH THE PT AND HIS AND WENT THRU THE EXT MED HISTORY TO COMPLETE THE MED REC. PT WAS RECENTLY DISCHARGED FROM [facility] AND THEN WAS ACCEPTED IN THE INPATIENT REHAB HERE. I PUT A CALL INTO [facility] FOR A COUPLE OF HIS MEDS THAT HE SAYS HE GETS FROM THE [facility]ALS [facility] AND HAVE NOT HEARD BACK YET. AFTER I SPEAK WITH THEM I WILL UPDATE THE MED REC AND NOTES IF NEEDED.
--- NOTE | 2019-12-30 10:18 | Discharge Summary ---
JARRELL TAVARES, MEDICAL STUDENT 12/30/19 1018: Diagnosis/Chief Complaint Date of Admission Dec 28, 2019 at 16:59 Date of Discharge 12/30/19 Discharge Date: Dec 30, 2019 Discharge Time: 11:00 Primary Care Elizabeth Ramey Melissa Discharge Diagnosis (1) Central cord syndrome Assessment & Plan: Continue inpatient rehab (2) Sepsis Status: Acute Assessment & Plan: Continue Abx (3) Pneumonia Assessment & Plan: Continue Abx (4) Respiratory distress (5) Elevated troponin Status: Acute (6) Former smoker (7) DAISY on CPAP (8) Debility Status: Acute (9) CHF (congestive heart failure) (10) Edema (11) CAD (coronary artery disease) (12) Bipolar disorder Discharge Summary Discharge Physical Exam Allergies: Coded Allergies: No Known Drug Allergies (Unverified , 04/23/19) Vitals & I&Os Vital Signs Date Time Temp Pulse Resp B/P (MAP) Pulse Ox O2 Delivery O2 Flow Rate FiO2 12/30/19 09:00 65 18 140/72 (94) 97 Nasal Cannula 2.00 12/30/19 00:00 35.8 12/29/19 00:25 4 General Appearance: No Apparent Distress HEENT: PERRL/EOMI, Normal ENT Inspection, Pharynx Normal Respiratory: Chest Non Tender, Lungs Clear, Normal Breath Sounds, No Accessory Muscle Use, No Respiratory Distress Cardiovascular: Regular Rate, Rhythm, No Edema, No Gallop, No JVD Gastrointestinal: Normal Bowel Sounds, No Organomegaly, No Pulsatile Mass Extremity: Non Tender, No Calf Tenderness Skin: Normal Color, Warm/Dry Neurologic/Psychiatric: Alert, Oriented x3, Normal Mood/Affect, pail tester II-XII Norm as Tested, Motor Weakness Hospital Course 54 YO M with PMH of Central Cervical Cord syndrome, CHF, T2DM, Bipolar and Chronic DAISY who was previously admitted in August for Sepsis from [facility], presents after surgery for central cervical spinal cord syndrome and cardiac arrest s/p 3 stents placed from [facility]. During the cardiac arrest the patient had no cardiac activity for 45 minutes but head imaging showed no evidence of anoxic brain injury. Following his cardiac arrest caused by V fibb the patient was placed on Amiodarone and was managed on ventilator for a short period of time. He was originally brought here to participate in inpatient rehab but was moved up to the ICU when there was concern about the patients blood pressure. The patient is currently being managed on antibiotics, and once stabilized will be moved back down to rehab. Prior to his surgery the patient used a walker to ambulate. As of 12/30/19 the patient is doing well and is able to breathe easily without oxygen. He only uses NC O2 at night during sleep, he says it helps as a replacement because he uses a CPAP at home. Patient will benefit from aggressive physical therapy due to recent surgery. Labs (last 24 hrs) Laboratory Tests 12/30/19 03:15: White Blood Count 7.7, Red Blood Count 3.67L, Hemoglobin 10.0L, Hematocrit 30L, Mean Corpuscular Volume 82, Mean Corpuscular Hemoglobin 27, Mean Corpuscular Hemoglobin Concent 33, Red Cell Distribution Width 17.1H, Platelet Count 204, Mean Platelet Volume 9.5, Neutrophils (%) (Auto) 65, Lymphocytes (%) (Auto) 24, Monocytes (%) (Auto) 10, Eosinophils (%) (Auto) 1, Basophils (%) (Auto) 0, Neutrophils # (Auto) 5.0, Lymphocytes # (Auto) 1.8, Monocytes # (Auto) 0.8, Eosinophils # (Auto) 0.1, Basophils # (Auto) 0.0, Sodium Level 139, Potassium Level 3.8, Chloride Level 105, Carbon Dioxide Level 24, Anion Gap 10, Blood Urea Nitrogen 12, Creatinine 0.82, Estimat Glomerular Filtration Rate > 60, BUN/Creatinine Ratio 15, Glucose Level 159H, Calcium Level 8.7, Corrected Calcium 9.3, Phosphorus Level 3.1, Magnesium Level 2.0, Total Bilirubin 0.6, Aspartate Amino Transf (AST/SGOT) 16, Alanine Aminotransferase (ALT/SGPT) 17, Alkaline Phosphatase 124, Troponin I 0.135H, B-Type Natriuretic Peptide 225.7H, Total Protein 6.2L, Albumin 3.3, Triglycerides Level 181H, Cholesterol Level 140, LDL Cholesterol Direct 77, VLDL Cholesterol 36, HDL Cholesterol 34L Microbiology 12/29/19 Influenza Types A,B Antigen (KE) - Final, Complete 12/28/19 Urine Culture - Preliminary, Resulted Enterobacter aerogenes 12/28/19 Blood Culture - Preliminary, Resulted No growth Patient resulted labs reviewed. Pending Labs Laboratory Tests 12/30/19 03:15: White Blood Count 7.7, Red Blood Count 3.67, Hemoglobin 10.0, Hematocrit 30, Mean Corpuscular Volume 82, Mean Corpuscular Hemoglobin 27, Mean Corpuscular Hemoglobin Concent 33, Red Cell Distribution Width 17.1, Platelet Count 204, Mean Platelet Volume 9.5, Neutrophils (%) (Auto) 65, Lymphocytes (%) (Auto) 24, Monocytes (%) (Auto) 10, Eosinophils (%) (Auto) 1, Basophils (%) (Auto) 0, Neutrophils # (Auto) 5.0, Lymphocytes # (Auto) 1.8, Monocytes # (Auto) 0.8, Eosi nophils # (Auto) 0.1, Basophils # (Auto) 0.0, Sodium Level 139, Potassium Level 3.8, Chloride Level 105, Carbon Dioxide Level 24, Anion Gap 10, Blood Urea Nitrogen 12, Creatinine 0.82, Estimat Glomerular Filtration Rate > 60, BUN/Creatinine Ratio 15, Glucose Level 159, Calcium Level 8.7, Corrected Calcium 9.3, Phosphorus Level 3.1, Magnesium Level 2.0, Total Bilirubin 0.6, Aspartate Amino Transf (AST/SGOT) 16, Alanine Aminotransferase (ALT/SGPT) 17, Alkaline Phosphatase 124, Troponin I 0.135, B-Type Natriuretic Peptide 225.7, Total Protein 6.2, Albumin 3.3, Triglycerides Level 181, Cholesterol Level 140, LDL Cholesterol Direct 77, VLDL Cholesterol 36, HDL Cholesterol 34 Discharge Home Medications: Active Scripts Active Reported Percocet 7.5-325 mg Tablet (Oxycodone HCl/Acetaminophen) 1 Each Tablet 1 Tab PO TID PRN Ropinirole HCl 0.5 Mg Tablet 0.5 Mg PO DAILY Lyrica (Pregabalin) 150 Mg Capsule 150 Mg PO BID Aspirin 81 Mg Tab.chew 81 Mg PO DAILY Farxiga (Dapagliflozin Propanediol) 10 Mg Tablet 10 Mg PO DAILY Depakote (Divalproex Sodium) 500 Mg Tablet.dr 500 Mg PO BID Vraylar (Cariprazine Hydrochloride) 1.5 Mg Capsule 1.5 Mg PO DAILY Diazepam 5 Mg Tablet 5 Mg PO BID PRN Sertraline HCl 100 Mg Tablet 100 Mg PO DAILY Atorvastatin Calcium 40 Mg Tablet 40 Mg PO HS Cyclobenzaprine HCl 10 Mg Tablet 5 Mg PO QID PRN TAKES 1/2 (10MG) TABLET Clopidogrel (Clopidogrel Bisulfate) 75 Mg Tablet 75 Mg PO DAILY Carvedilol 6.25 Mg Tablet 6.25 Mg PO BID Pantoprazole Sodium 40 Mg Tablet.dr 40 Mg PO DAILY Losartan Potassium 25 Mg Tablet 25 Mg PO DAILY Nitroglycerin 0.4 Mg Tab.subl 0.4 Mg SL UD PRN DISSOLVE ONE TABLET UNDER THE TONGUE EVERY 5 MINUTES NEEDED FOR CHEST PAIN. DO NOT EXCEED A TOTAL OF 3 DOSES IN 15 MINUTES Instructions to patient/family Please see electronic discharge instructions given to patient. Clinical Quality Measures Admission Status Admission Dx 54 YO M who was transferred here from [facility] for rehabilitation after surgery for cervical spinal cord syndrome who was sent to ICU for better management of the patient's vitals. Monitor in ICU for stable Vitals Transfer back to rehab once initial concerns for BP Continue Meropenem and Vanc for PNA Resume Home meds Appreciate Dr. Barrientos recommendations Appreciate Dr. Franklin's recommendations DVT/VTE Risk/Contraindication: Risk Factor Score Per Nursin RFS Level Per Nursing on Admit: 4+=Very High AMANDA SPENCER DO 12/30/192020: Diagnosis/Chief Complaint Discharge Diagnosis (1) Sepsis Status: Acute Assessment & Plan: Continue Abx (2) Central cord syndrome Assessment & Plan: Continue inpatient rehab (3) Pneumonia Assessment & Plan: Continue Abx (4) Respiratory distress (5) Elevated troponin Status: Acute (6) Former smoker (7) DAISY on CPAP (8) Debility Status: Acute (9) CHF (congestive heart failure) (10) Edema (11) CAD (coronary artery disease) (12) Bipolar disorder Discharge Summary Discharge Physical Exam Allergies: Coded Allergies: No Known Drug Allergies (Unverified , 04/23/19) General Appearance: No Apparent Distress, Chronically ill Respiratory: No Accessory Muscle Use, No Respiratory Distress, Decreased Breath Sounds Cardiovascular: Regular Rate, Rhythm Neurologic/Psychiatric: Alert, Oriented x3 Hospital Course Was the Problem List Reviewed?: Yes Hospital course: Pt had a short observation hospital course when he had some low BP, and oxygen level in addition to low heart rate, requiring ICU admission a long with Dr. Rodriguez's recommendation. He was monitored closely and placed on broad-spectrum Meropenem and Vancomycin for presumed facility-acquired pneumonia. He did have an elevated troponin, it was assessed to be a type two NSTEMI, and Noemi Frazier was consulted. Overall Pt stabilized, was able to be discharged back into inpatient rehab to continue his rehab course. Discussion & Recommendations Discharge Planning: <30 minutes discharge planning Supervisory-Addendum Brief Verification & Attestation Participated in pt care: history, MDM, physical Personally performed: exam, history, MDM, supervision of care Care discussed with: Medical Student Procedures: n/a Results interpretation: Verified all documentation Verification and Attestation of Medical Student E/M Service A medical student performed and documented this service in my presence. I reviewed and verified all information documented by the medical student and made modifications to such information, when appropriate. I personally performed the physical exam and medical decision making. Amanda Spencer, Dec 30, 2019,20:20 JARRELL TAVARES, MEDICAL STUDENT Dec 30, 2019 10:18 AMANDA SPENCER DO Dec 30, 2019 20:21
--- NOTE | 2019-12-30 10:55 | NUR ---
SBAR report called to Edith GEORGE on ARU. Patient transferring with telemetry. Physical therapy at bedside transferring patient att. patient transferring via wheel chair.
[2019-12-30] MEDS ORDERED: TAMSULOSIN 0.4 MG (FLOMAX) CAP PO SCH (18:00)
== END 2019-12-30 10:55 ==
LOC: ICU 16:59
PROVIDERS: ADMIT Internal Medicine; ATTEND Internal Medicine
DX: S14.129A Central cord syndrome at unspecified level of cervical spinal cord, initial encounter (principal); I11.0 Hypertensive heart disease with heart failure; I25.10 Atherosclerotic heart disease of native coronary artery without angina pectoris; I50.22 Chronic systolic (congestive) heart failure; I25.5 Ischemic cardiomyopathy; J98.11 Atelectasis; I21.4 Non-ST elevation (NSTEMI) myocardial infarction; N39.0 Urinary tract infection, site not specified; R65.21 Severe sepsis with septic shock; J96.00 Acute respiratory failure, unspecified whether with hypoxia or hypercapnia; M54.9 Dorsalgia, unspecified; J18.9 Pneumonia, unspecified organism; A41.9 Sepsis, unspecified organism; G47.33 Obstructive sleep apnea (adult) (pediatric); J44.9 Chronic obstructive pulmonary disease, unspecified; G47.30 Sleep apnea, unspecified; E78.5 Hyperlipidemia, unspecified; E78.00 Pure hypercholesterolemia, unspecified; K59.09 Other constipation; E11.40 Type 2 diabetes mellitus with diabetic neuropathy, unspecified; M19.90 Unspecified osteoarthritis, unspecified site; G89.29 Other chronic pain; F31.9 Bipolar disorder, unspecified; Z79.84 Long term (current) use of oral hypoglycemic drugs; Z79.82 Long term (current) use of aspirin
CPT/HCPCS: 36415; 36569; 36600; 71045; 76937; 80048; 80053; 80061; 81000; 82805; 83605; 83735; 83880; 84100; 84484; 85025; 85027; 87040; 87077; 87081; 87088; 87186; 87804; 93005; 94640; 99211; G0378

== ENCOUNTER → 2020-01-21 | Outpatient (CLI) | payer MEDICAID ==
[~2020-01-21] MED LIST changes: +ACHYD1T PO; +AMIO200T4 PO; +CARV3.122 PO; -HYDR-3820 PO; -ROPI0.5T2 PO; +ROPI0.5T4 PO; +SENN-20 PO; +TMSL.4C PO; +ZINC28PA TOP
== END ==
LOC: LAB FS 17:33
PROVIDERS: ATTEND Nurse Practitioner Community Health
DX: S14.129D Central cord syndrome at unspecified level of cervical spinal cord, subsequent encounter (principal)
CPT/HCPCS: 87070; 87205

== ENCOUNTER → 2020-03-31 | Outpatient (CLI) | payer MEDICAID | LOC: WOUNDCARE 12:47 | PROVIDERS: ATTEND Surgery | DX: E11.42 Type 2 diabetes mellitus with diabetic polyneuropathy (principal); L89.622 Pressure ulcer of left heel, stage 2; M48.03 Spinal stenosis, cervicothoracic region; M47.13 Other spondylosis with myelopathy, cervicothoracic region; J44.9 Chronic obstructive pulmonary disease, unspecified; G47.30 Sleep apnea, unspecified; I50.9 Heart failure, unspecified; I25.10 Atherosclerotic heart disease of native coronary artery without angina pectoris; I95.9 Hypotension, unspecified; M06.9 Rheumatoid arthritis, unspecified; Z79.01 Long term (current) use of anticoagulants; Z79.899 Other long term (current) drug therapy; Z79.82 Long term (current) use of aspirin | CPT/HCPCS: 99213 ==

== ENCOUNTER → 2020-04-08 | Outpatient (CLI) | payer MEDICAID | LOC: WOUNDCARE 14:52 | PROVIDERS: ATTEND Surgery | DX: E11.42 Type 2 diabetes mellitus with diabetic polyneuropathy (principal); L89.622 Pressure ulcer of left heel, stage 2; M48.03 Spinal stenosis, cervicothoracic region; M47.13 Other spondylosis with myelopathy, cervicothoracic region; J44.9 Chronic obstructive pulmonary disease, unspecified; G47.30 Sleep apnea, unspecified; I50.9 Heart failure, unspecified; I25.10 Atherosclerotic heart disease of native coronary artery without angina pectoris; I95.9 Hypotension, unspecified; M06.9 Rheumatoid arthritis, unspecified; Z79.01 Long term (current) use of anticoagulants; Z79.899 Other long term (current) drug therapy; Z79.82 Long term (current) use of aspirin | CPT/HCPCS: 99212 ==

== ENCOUNTER → 2020-05-05 | Outpatient (CLI) | payer MEDICAID | LOC: WOUNDCARE 14:10 | PROVIDERS: ATTEND Surgery | DX: E11.621 Type 2 diabetes mellitus with foot ulcer (principal); E11.42 Type 2 diabetes mellitus with diabetic polyneuropathy; I70.262 Atherosclerosis of native arteries of extremities with gangrene, left leg; M48.00 Spinal stenosis, site unspecified; L89.623 Pressure ulcer of left heel, stage 3 | CPT/HCPCS: 11042 ==

== ENCOUNTER → 2020-05-05 | Outpatient (CLI) | payer MEDICAID ==
[2020-05-05 16:53] LABS: BASOPHILS % (AUTO) 0 % (0-10); EOSINOPHILS # (AUTO) 0.5 10^3/uL (0.0-0.3); EOSINOPHILS % (AUTO) 8 % (0-10); HEMATOCRIT 38 % (40-54); HEMOGLOBIN 12.1 G/DL (13.3-17.7); LYMPHOCYTES # (AUTO) 1.5 X 10^3 (1.0-4.0); LYMPHOCYTES % (AUTO) 22 % (12-44); MEAN CORPUSCULAR HEMOGLOBIN 25 PG (25-34); MEAN CORPUSCULAR HGB CONC 32 G/DL (32-36); MEAN CORPUSCULAR VOLUME 80 FL (80-99); MEAN PLATELET VOLUME 9.3 FL (7.4-10.4); MONOCYTES # (AUTO) 0.7 X 10^3 (0.0-1.0); MONOCYTES % (AUTO) 10 % (0-12); NEUTROPHILS % (AUTO) 60 % (42-75); PLATELET COUNT 158 10^3/uL (130-400); RED CELL DISTRIBUTION WIDTH 17.5 % (10.0-14.5); WHITE BLOOD COUNT 6.7 10^3/uL (4.3-11.0)
[2020-05-05 17:12] LABS: ALBUMIN 4.1 GM/DL (3.2-4.5); BILIRUBIN,TOTAL 0.2 MG/DL (0.1-1.0); CALCIUM 8.7 MG/DL (8.5-10.1); CREATININE SERUM 1.45 MG/DL (0.60-1.30); POTASSIUM 4.1 MMOL/L (3.6-5.0); TOTAL PROTEIN 7.1 GM/DL (6.4-8.2)
== END ==
LOC: LAB 16:26
PROVIDERS: ATTEND Surgery
DX: E11.621 Type 2 diabetes mellitus with foot ulcer (principal); L98.499 Non-pressure chronic ulcer of skin of other sites with unspecified severity
CPT/HCPCS: 36415; 80053; 83036; 85025

== ENCOUNTER → 2020-05-12 | Outpatient (CLI) | payer MEDICAID | LOC: LAB 13:11 | PROVIDERS: ATTEND Surgery | DX: Z01.89 Encounter for other specified special examinations (principal) ==

== ENCOUNTER → 2020-05-13 | Outpatient (CLI) | payer MEDICAID | LOC: WOUNDCARE 08:40 | PROVIDERS: ATTEND Surgery | DX: E11.621 Type 2 diabetes mellitus with foot ulcer (principal); E11.52 Type 2 diabetes mellitus with diabetic peripheral angiopathy with gangrene; E11.42 Type 2 diabetes mellitus with diabetic polyneuropathy; I70.262 Atherosclerosis of native arteries of extremities with gangrene, left leg; L89.623 Pressure ulcer of left heel, stage 3; M48.00 Spinal stenosis, site unspecified | CPT/HCPCS: 97597 ==

== ENCOUNTER → 2020-05-20 | Outpatient (CLI) | payer MEDICAID | LOC: WOUNDCARE 08:05 | PROVIDERS: ATTEND Surgery | DX: E11.621 Type 2 diabetes mellitus with foot ulcer (principal); E11.42 Type 2 diabetes mellitus with diabetic polyneuropathy; E11.52 Type 2 diabetes mellitus with diabetic peripheral angiopathy with gangrene; I70.262 Atherosclerosis of native arteries of extremities with gangrene, left leg; L89.623 Pressure ulcer of left heel, stage 3; M48.00 Spinal stenosis, site unspecified | CPT/HCPCS: 97597 ==

== ENCOUNTER → 2020-05-27 | Outpatient (CLI) | payer MEDICAID | LOC: WOUNDCARE 08:28 | PROVIDERS: ATTEND Surgery | DX: L89.623 Pressure ulcer of left heel, stage 3 (principal); E11.621 Type 2 diabetes mellitus with foot ulcer; E11.42 Type 2 diabetes mellitus with diabetic polyneuropathy; M48.00 Spinal stenosis, site unspecified; E11.52 Type 2 diabetes mellitus with diabetic peripheral angiopathy with gangrene | CPT/HCPCS: 97597 ==

== ENCOUNTER → 2020-06-03 | Outpatient (CLI) | payer MEDICAID | LOC: WOUNDCARE 08:20 | PROVIDERS: ATTEND Orthopaedic Surgery Hand Surgery | DX: E11.621 Type 2 diabetes mellitus with foot ulcer (principal); E11.42 Type 2 diabetes mellitus with diabetic polyneuropathy; L89.623 Pressure ulcer of left heel, stage 3; M48.00 Spinal stenosis, site unspecified | CPT/HCPCS: 99212 ==

== ENCOUNTER → 2020-08-10 | Outpatient (CLI) | payer MEDICAID ==
[~2020-08-10] MED LIST changes: +ASPI-1238 PO; -ASPI-983 PO; -PANT40TA3 PO; +PANT40TA52 PO
== END ==
LOC: WOUNDCARE 13:10
PROVIDERS: ATTEND Surgery
DX: E11.621 Type 2 diabetes mellitus with foot ulcer (principal); E11.42 Type 2 diabetes mellitus with diabetic polyneuropathy; L97.422 Non-pressure chronic ulcer of left heel and midfoot with fat layer exposed; L89.623 Pressure ulcer of left heel, stage 3; I70.244 Atherosclerosis of native arteries of left leg with ulceration of heel and midfoot
CPT/HCPCS: 99212

== ENCOUNTER → 2020-08-18 | Outpatient (CLI) | payer MEDICAID | LOC: WOUNDCARE 13:22 | PROVIDERS: ATTEND Surgery | DX: E11.621 Type 2 diabetes mellitus with foot ulcer (principal); E11.42 Type 2 diabetes mellitus with diabetic polyneuropathy; L97.422 Non-pressure chronic ulcer of left heel and midfoot with fat layer exposed; L89.623 Pressure ulcer of left heel, stage 3; I70.244 Atherosclerosis of native arteries of left leg with ulceration of heel and midfoot; E11.52 Type 2 diabetes mellitus with diabetic peripheral angiopathy with gangrene | CPT/HCPCS: 99213 ==

== ENCOUNTER → 2020-08-18 | Outpatient (CLI) | payer MEDICAID ==
--- NOTE | 2020-08-18 16:22 | Diagnostic Imaging Report ---
PROCEDURE: US Bilateral lower extremity arterial. TECHNIQUE: Multiple real-time grayscale images are obtained through both lower extremity arterial systems with color Doppler imaging and color Doppler spectral analysis. INDICATION: Diminished toe brachial index on the left. COMPARISON: None available. FINDINGS: Color Doppler imaging shows patency of the bilateral common femoral, superficial femoral, popliteal, posterior tibial and dorsalis pedis arteries. Atherosclerotic plaquing is seen. Within the thighs, there are predominantly triphasic waveforms. However, at the level of the knees and lower legs, monophasic waveforms predominate and this suggests peripheral vascular disease. The velocities within the dorsalis pedis arteries are very blunted on both sides. No elevated peak systolic velocities that would indicate hemodynamically significant stenosis. IMPRESSION: 1. No focal arterial occlusion or high-grade stenosis in the lower extremities. Dictated by: Dictated on workstation # [id number]
== END ==
LOC: RAD 12:00
PROVIDERS: ATTEND Surgery
DX: E11.621 Type 2 diabetes mellitus with foot ulcer (principal); E11.42 Type 2 diabetes mellitus with diabetic polyneuropathy; L97.422 Non-pressure chronic ulcer of left heel and midfoot with fat layer exposed; L89.623 Pressure ulcer of left heel, stage 3; I70.244 Atherosclerosis of native arteries of left leg with ulceration of heel and midfoot
CPT/HCPCS: 93925

== ENCOUNTER → 2020-08-20 | Outpatient (CLI) | payer MEDICAID ==
[2020-08-20 17:54] LABS: HEMATOCRIT 40 % (40-54); MEAN CORPUSCULAR HEMOGLOBIN 27 PG (25-34); MEAN CORPUSCULAR VOLUME 85 FL (80-99); WHITE BLOOD COUNT 6.7 10^3/uL (4.3-11.0)
[2020-08-20 17:55] LABS: BASOPHILS % (AUTO) 0 % (0-10); EOSINOPHILS # (AUTO) 0.3 10^3/uL (0.0-0.3); EOSINOPHILS % (AUTO) 4 % (0-10); LYMPHOCYTES # (AUTO) 2.1 X 10^3 (1.0-4.0); LYMPHOCYTES % (AUTO) 31 % (12-44); MEAN CORPUSCULAR HGB CONC 32 G/DL (32-36); MEAN PLATELET VOLUME 9.6 FL (7.4-10.4); MONOCYTES # (AUTO) 0.6 X 10^3 (0.0-1.0); MONOCYTES % (AUTO) 9 % (0-12); NEUTROPHILS # (AUTO) 3.7 X 10^3 (1.8-7.8); NEUTROPHILS % (AUTO) 55 % (42-75); PLATELET COUNT 145 10^3/uL (130-400)
[2020-08-20 18:09] LABS: POTASSIUM 4.1 MMOL/L (3.6-5.0)
[2020-08-20 18:10] LABS: ALBUMIN 4.1 GM/DL (3.2-4.5); BILIRUBIN,TOTAL 0.3 MG/DL (0.1-1.0); CALCIUM 8.9 MG/DL (8.5-10.1); CREATININE SERUM 1.41 MG/DL (0.60-1.30); TOTAL PROTEIN 6.6 GM/DL (6.4-8.2)
== END ==
LOC: LAB FS 17:33
PROVIDERS: ATTEND Internal Medicine
DX: I11.0 Hypertensive heart disease with heart failure (principal); E11.40 Type 2 diabetes mellitus with diabetic neuropathy, unspecified; I50.9 Heart failure, unspecified
CPT/HCPCS: 36415; 80053; 85025

== ENCOUNTER → 2020-08-25 | Outpatient (CLI) | payer MEDICAID | LOC: WOUNDCARE 10:25 | PROVIDERS: ATTEND Surgery | DX: I70.244 Atherosclerosis of native arteries of left leg with ulceration of heel and midfoot (principal); E11.621 Type 2 diabetes mellitus with foot ulcer; E11.42 Type 2 diabetes mellitus with diabetic polyneuropathy; L97.422 Non-pressure chronic ulcer of left heel and midfoot with fat layer exposed; L89.623 Pressure ulcer of left heel, stage 3; I96 Gangrene, not elsewhere classified | CPT/HCPCS: 99213 ==

== ENCOUNTER → 2020-09-01 | Outpatient (CLI) | payer MEDICAID | LOC: WOUNDCARE 10:25 | PROVIDERS: ATTEND Surgery | DX: I70.244 Atherosclerosis of native arteries of left leg with ulceration of heel and midfoot (principal); E11.621 Type 2 diabetes mellitus with foot ulcer; E11.42 Type 2 diabetes mellitus with diabetic polyneuropathy; L97.422 Non-pressure chronic ulcer of left heel and midfoot with fat layer exposed; L89.623 Pressure ulcer of left heel, stage 3; I96 Gangrene, not elsewhere classified | CPT/HCPCS: 99212 ==

== ENCOUNTER → 2020-09-08 | Outpatient (CLI) | payer MEDICAID ==
[~2020-09-08] MED LIST changes: -AMIO200T4 PO; +AMIO200T6 PO
== END ==
LOC: WOUNDCARE 10:29
PROVIDERS: ATTEND Surgery
DX: I70.244 Atherosclerosis of native arteries of left leg with ulceration of heel and midfoot (principal); E11.621 Type 2 diabetes mellitus with foot ulcer; E11.42 Type 2 diabetes mellitus with diabetic polyneuropathy; L97.422 Non-pressure chronic ulcer of left heel and midfoot with fat layer exposed; L89.623 Pressure ulcer of left heel, stage 3; I96 Gangrene, not elsewhere classified
CPT/HCPCS: 99212

== ENCOUNTER 2020-09-15 10:32 | Day surgery (SDC) | payer MEDICAID ==
[2020-09-15] VITALS (11 sets, daily range): BP systolic 124–151; BP diastolic 69–88
[~2020-09-15] VITALS: Ht 177 cm; Wt 131.0 kg
[2020-09-15] MEDS ORDERED: LIDOCAINE 1% INJ 20 ML 20 ML VIAL ONE (10:47)
[2020-09-15] MEDS ORDERED: HEParin (CATH LAB) 2,000 ML IV ONE (10:47)
[2020-09-15] MEDS ORDERED: NS IV 1000 ML 1,000 ML ONE (10:47)
[2020-09-15] MEDS ORDERED: NS IV 1000 ML 1,000 ML IV SCH (11:00)
[2020-09-15 11:24] LABS: HEMOGLOBIN 13.4 g/dL (13.3-17.7); WHITE BLOOD COUNT 6.7 10^3/uL (4.3-11.0)
--- NOTE | 2020-09-15 11:29 | Diagnostic Imaging Report ---
INDICATION: Pre-heart catheterization. TIME OF EXAM: 11:29 a.m. COMPARISON: Correlation is made with prior chest from 12/30/2019. FINDINGS: Heart size is stable. There is minimal scarring in left base. No infiltrates are seen. There is no failure. No effusion or pneumothorax is detected. Postoperative changes in lower cervical spine are noted. IMPRESSION: No acute cardiopulmonary process is detected. Dictated by: Dictated on workstation # [id number]
[2020-09-15 11:45] LABS: INR 0.9 (0.8-1.4); PROTHROMBIN TIME PATIENT 12.7 SEC (12.2-14.7)
[2020-09-15 11:50] LABS: ALBUMIN 4.4 GM/DL (3.2-4.5); BILIRUBIN,TOTAL 0.4 MG/DL (0.1-1.0); CALCIUM 8.7 MG/DL (8.5-10.1); CREATININE SERUM 1.51 MG/DL (0.60-1.30); POTASSIUM 4.5 MMOL/L (3.6-5.0); TOTAL PROTEIN 7.2 GM/DL (6.4-8.2)
[2020-09-15] MEDS ORDERED: fentaNYL INJECTION 100 MCG/2 ML AMP ONE (11:50)
[2020-09-15] MEDS ORDERED: MIDAZOLAM 5 MG/5 ML (VERSED) VIAL ONE (11:50)
[2020-09-15] MEDS ORDERED: SERT50TA9 PO (11:58)
[2020-09-15] MEDS ORDERED: TMSL.4C PO (11:58)
[2020-09-15] MEDS ORDERED: DIAZ5TAB49 PO (11:58)
[2020-09-15] MEDS ORDERED: OXYC1TAB16 PO (11:58)
[2020-09-15] MEDS ORDERED: FURO40TA4 PO (11:58)
[2020-09-15] MEDS ORDERED: AMIO200T6 PO (11:58)
[2020-09-15] MEDS ORDERED: CARV3.122 PO (11:58)
[2020-09-15] MEDS ORDERED: POTA-51 PO (11:59)
--- NOTE | 2020-09-15 12:02 | NUR ---
I SPOKE WITH THE PATIENT, CALLED [facility] IN [place] AND [place], WENT THROUGH THE EXTERNAL MED HISTORY AND WENT THROUGH THE MED LIST BROUGHT FROM HOME TO COMPLETE THIS MED REC. MEDICATIONS FILLED FROM [facility] IN [place]: 04/01/20 CYCLOBENZAPRINE 10MG #30 05/12/20 SERTRALINE 50MG #60 -DIRECTIONS SAID TO TAKE 2 DAILY, PUT PATIENT TAKES 1 DAILY 06/08/20 ATORVASTATIN #30/30DS 06/14/20 POTASSIUM CHLORIDE 20MEQ #30/30DS 07/16/20 FUROSEMIDE 40MG #90/90DS 07/16/[address] 500MG #60/30DS 07/20/20 PANTOPRAZOLE 40MG #30/30DS 08/02/20 CARVEDILOL 3.125MG #180/90DS 08/02/20 TAMSULOSIN 0.4MG #90/90DS 08/16/20 LOSARTAN 25MG #30/30DS 09/03/20 ROPINIROLE 0.5MG #30/30DS 09/05/20 DIAZEPAM 5MG #60/30DS 09/06/20 OXYCODONE/APAP 7.5/325 #84 09/07/20 VRAYLAR 1.5MG #30/30DS 09/08/20 LYRICA 150MG #90/30DS MEDICATIONS FILLED FROM [facility] IN [place]: 08/31/20 AMIODARONE 200MG #60/30DS 08/31/20 PLAVIX 75MG #30/30DS 08/31/20 FARXIGA 10MG #30/30DS OTC: ASPIRIN
[2020-09-15] MEDS ORDERED: HEParin 1000 UNIT/ML (10ML VIAL) FOR BOLUS ONE (12:34)
[2020-09-15] MEDS ORDERED: NITRO DRIP 25000 MCG/D5W 250 ML IV ONE (12:51)
--- NOTE | 2020-09-15 13:55 | Cardiac Procedure Note-CS/ASA ---
Pre-Procedure Note Pre-Op Procedure Note H&P Reviewed The H&P was reviewed, patient examined and no changes noted. Date H&P Reviewed: Sep 15, 2020 Time H&P Reviewed: 13:55 Conscious Sedation Pre-Proced Time 13:55 ASA Score 3 For ASA 3 and 4: Consider anesthesia and medical clearance. Also, for patients with a history of failed moderate sedation consider anesthesia. Airway Lungs Heart ASA score ASA 1: a normal healthy patient ASA 2: a patient with a mild systemic disease (mid diabetes, controlled hypertension, obesity x ASA 3: a patient with a severe systemic disease that limits activity (angina, COPD, prior Myocardial infarction) ASA 4: a patient with an incapacitating disease that is a constant threat to life (CHF, renal failure) ASA 5: a moribund patient not expected to survive 24 hrs. (ruptured aneurysm) ASA 6: a declared brain- patient whose organs are being harvested. For emergent operations, add the letter E after the classification Mallampati Classification Grade 3 Sedation Plan Analgesia, Amnesia, Plan communicated to team members, Discussed options with patient/fam, Discussed risks with patient/fam The patient is an appropriate candidate to undergo the planned procedure, sedation, and anesthesia. The patient immediately re-assessed prior to indication. ALINA GREGG MD Sep 15, 2020 1:55 pm
[2020-09-15] MEDS ORDERED: CLOPIDOGREL 300 MG (PLAVIX) TABLET PO ONE (13:57)
[2020-09-15] MEDS ORDERED: ASPIRIN 325 MG (5 GR) TABLET ONE (13:57)
[2020-09-15] MEDS ORDERED: CYCLOBENZAPRINE 10 MG (FLEXERIL) TAB PO PRN (14:00)
[2020-09-15] MEDS ORDERED: oxyCODONE/APAP 7.5-325 MG (PERCOCET 7.5) TABLET PO PRN ×2 (14:00→18:00)
[2020-09-15] MEDS ORDERED: PATIENT MAY USE OWN MEDS, ALL PO SCH (14:00)
--- NOTE | 2020-09-15 14:06 | Peripheral Report ---
Peripheral Report Physician (s)/Fishing Captain (s) Physician ALINA GREGG MD Pre-Procedure Diagnosis Pre-Procedure Diagnosis: nonhealing foot ulcer Post-Procedure Note Procedure Start Date: Sep 15, 2020 Name of Procedure: Bilateral runoff to the lower extremities Third order Additional imaging X2 SCRAPER HAND to the anterior tibial artery Findings/Procedure Note PROCEDURE NOTE: 55 years old gentleman with history of peripheral arterial disease, hypertension hyperlipidemia. Had nonhealing ulcer on his left leg. Had normal ISABELA and TBI. Due to the abnormal waveform we decided to proceed with peripheral angiogram possible angioplasty. After explaining the procedure to the patient, all pros and cons were explained, all questions were answered. The patient signed the consent and then he was placed on the cardiac catheterization laboratory. The patient was placed on the cardiac catheterization laboratory. Groin was prepped SL fashion local anesthesia was used. Sheath placed in the left femoral artery, REM catheter was advanced to the left common iliac artery and runoff to the left leg was done. Long stork catheter was advanced and the rim was removed and a long straight catheter was placed. Selective angiogram was done to the tibial peroneal trunk with very small amount of contrast then the catheter was retracted and I evaluated through the popliteal artery. Patient was noted to have total occlusion of the anterior tibial artery, 6000 units of heparin were given. Sheath was exchanged into long 6 Kosovan sheath 65 cm, I readvanced the straight catheter then advanced command 14 wire through the anterior tibial artery with difficulties. I try to address 2.5 balloon without success subsequently I advanced 1.5 balloon to the mid to distal area and did balloon angioplasty and used a 2.5 balloon to the proximal area. Angiogram postintervention showed improvement, still distally there is a total occlusion. I removed the balloon and advanced command 18 balloon and was able to advance it distally and the use 2.040 balloon to the distal anterior tibial artery and did multiple inflation walking back to the proximal portion, intra-arterial nitroglycerin was given and angiogram showed excellent results. The sheath was exchanged back in 2 short 6 Kosovan sheath and runoff to the right leg was done FINDINGS: Right lower extremity, good flow down to the trifurcation, below the trifurcation the posterior tibial artery and peroneal arteries are good, anterior tibial artery is atretic and very small area Left lower extremity, good flow down to the trifurcation, the posterior tibial artery and peroneal artery are opened. Total occlusion at the proximal anterior tibial artery, complex intervention with multiple wires and balloons with successful reestablishment to the blood flow down to the foot. CONCLUSIONS: 1. Total occlusion of the left anterior tibial artery was successful balloon angioplasty using multiple wires and balloons with excellent results 2. Atretic and very small right anterior tibial artery. DISCUSSION AND RECOMMENDATIONS: Continue to maximize medical therapy Anesthesia Type: Conscious Sedation Estimated blood loss (mL): 50 ml Contrast Amount: 51 ml Total Radiation Dose: 424 mGy Post-Procedure Diagnosis Post-operative diagnosis: Nonhealing foot ulcer Claudication Pericardial disease Hypertension Hyperlipidemia ALINA GREGG MD Sep 15, 2020 2:06 pm
[2020-09-15] MEDS: NS IV 1000 ML 1,000 ML IV SCH (14:51)
--- NOTE | 2020-09-15 16:47 | NUR ---
PT CALLED OUT AT 1615. PT STATED THAT HE WANTED TO SIT UP. EDUCATED PT THAT HE HAD TO STAY FLAT FOR 3 HOURS MINIMUM WAS EXPLAINED WHEN HE ARRIVED AT 1415, PT STATED THAT HE WANTED STILL WANTED TO SIT UP AND THAT HE WAS BIPOLAR AND WAS NOT GOING TO BEABLE TO TOLERATE LYING FLAT ANY LONGER. EDUCATED PT THAT THE 3 HOURS OF FLAT LYING WAS FOR HIS SAFETY DUE TO BLEEDING RISK ASSOCIATED WITH RAISING THE HEAD TOO EARLY. PT VERBALIZED UNDERSTANDING AT THIS TIME.OFFERED TO TURN PT, PT ACCEPTED. REPOSITIONED PT AT THIS TIME.
[2020-09-15] MEDS ORDERED: SERT100T8 PO (17:32)
[2020-09-15] MEDS: CARVEDILOL 3.125 MG (COREG) TABLET PO SCH (20:19)
[2020-09-15] MEDS: DIVALPROEX 500 MG DELAYED RELEASE (DEPAKOTE) TAB PO SCH (20:21)
[2020-09-15] MEDS: DIAZEPAM 5 MG (VALIUM) TABLET PO PRN (20:22)
[2020-09-15] MEDS: PREGABALIN 150 MG (LYRICA) CAPSULE PO SCH (20:23)
[2020-09-15] MEDS ORDERED: ROPINIROLE 0.5 MG TABLET PO SCH (21:00)
[2020-09-16] VITALS: BP 147/64
[2020-09-16 04:10] LABS: HEMOGLOBIN 12.6 g/dL (13.3-17.7); MEAN PLATELET VOLUME 8.6 fL (9.0-12.2); WHITE BLOOD COUNT 7.5 10^3/uL (4.3-11.0)
[2020-09-16 04:25] VITALS: BP 136/72
[2020-09-16 04:39] LABS: POTASSIUM 4.2 MMOL/L (3.6-5.0)
[2020-09-16 04:40] LABS: CALCIUM 8.4 MG/DL (8.5-10.1)
[2020-09-16 04:44] LABS: CREATININE SERUM 1.32 MG/DL (0.60-1.30)
[2020-09-16] MEDS: NS IV 1000 ML 1,000 ML IV SCH ×2 (05:48→09:05)
[2020-09-16] MEDS: DIAZEPAM 5 MG (VALIUM) TABLET PO PRN (05:54)
--- NOTE | 2020-09-16 06:25 | Discharge Inst-Post CATH ---
Discharge Inst-CATH/EP Problems Reviewed?: Yes Post Cardiac Cath/EP D/C Inst Follow Up/Plan Appointment with Dr Franklin's office in 2-4 weeks <b>CARDIAC CATH/EP PROCEDURE DISCHARGE INSTRUCTIONS</b> ACTIVITY * Go Home directly and rest. * Limit activity of the leg (or wrist if it was used) for 7 days including aerobics, swimming, jogging, bicycling, etc. * Restrict stair-climbing for 7 days if possible, if not, climb up with your non-cath leg, then bring together on the same step. * Avoid lifting, pushing, pulling or excessive movement of the affected extremity for 7 days. * Customary sexual activity may be resumed after 2 days-use caution not to use a position that strains or causes pain to the affected extremity. * No driving for 24 hours. * NO SMOKING. * Avoid straining for bowel movements for 7 days. * Gentle walking on level ground is allowed. * Returning to work will depend on the type of procedure and the results. Your doctor will discuss this with you. CALL YOUR DOCTOR FOR ANY OF THE FOLLOWING: *If bleeding from the puncture site occurs- Apply gentle pressure to site with clean cloth and call your doctor or EMS. * If a knot or lump forms under the skin, increases in size, or causes pain. * If bruising appears to be worsening or moving further down your leg instead of disappearing. * Temperature above 101 F. CARE OF YOUR GROIN INCISION; * Bruising or purple discoloration of the skin near the puncture site is common. * You may shower only, no bathtub bathing for 5 days. Be careful to avoid slipping as your leg may feel stiff. * If a closure device was used on your femoral artery, please see the attached guide regarding care of the device and your leg. * Leave dressing on FOR 24 hours. CARE OF YOUR WRIST INCISION; * Bruising or purple discoloration of the skin near the puncture site is common. * You may shower. * DO NOT submerge wrist. * Leave dressing on FOR 24 hours. ALINA FRANKLIN MD Sep 16, 2020 06:25
[2020-09-16] MEDS ORDERED: ATOR10TA PO (06:26)
[2020-09-16] MEDS ORDERED: KCL 20 MEQ TAB (K-DUR) PO SCH (07:00)
[2020-09-16 07:32] VITALS: BP 171/94
[2020-09-16] MEDS ORDERED: FUROSEMIDE 40 MG (LASIX) TAB PO SCH (08:00)
--- NOTE | 2020-09-16 08:36 | Cardiology Progress Note ---
Subjective Date Seen by Provider: Sep 16, 2020 Time Seen by Provider: 08:35 Subjective/Events-last exam Patient is in bed, feeling well, groin is healing well Review of Systems General: No Chills, No Night Sweats, No Fatigue, No Malaise, No Appetite, No Other HEENT: No Head Aches, No Visual Changes, No Eye Pain, No Ear Pain, No Dysphasia, No Sinus Congestion, No Post Nasal Drip, No Sore Throat, No Other Pulmonary: No Dyspnea, No Cough, No Pleuritic Chest Pain, No Other Cardiovascular: No: Chest Pain, Palpitations, Orthopnea, Paroxysmal Noc. Dyspnea, Edema, Lt Headedness, Other Objective-Cardiology Exam Last Set of Vital Signs Vital Signs 09/16/20 09/16/20 04:25 07:32 Temp 36.4 Pulse 55 Resp 8 B/P (MAP) 171/94 (119) Pulse Ox 94 O2 Delivery Room Air O2 Flow Rate 3.00 Capillary Refill : Less Than 3 Seconds I&O Intake and Output 09/16/20 00:00 Intake Total 740 ml Output Total 700 ml Balance 40 ml Intake Oral 740 ml Output Urine Total 700 ml # Voids 2 General: Alert, Oriented X3, Cooperative HEENT: Atraumatic, PERRLA Neck: Supple, No JVD, No Thyromegaly Lungs: Clear to Auscultation, Normal Air Movement Heart: Regular Rate, Normal S1, Normal S2, No Murmurs Abdomen: Normal Bowel Sounds, Soft, No Tenderness, No Hepatosplenomegaly, No Masses Extremities: No Clubbing, No Cyanosis, No Edema, Normal Pulses, No Tenderness/Swelling Skin: No Rashes, No Breakdown, No Significant Lesion Neuro: Normal Gait, Normal Speech, Strength at 5/5 X4 Ext, Normal Tone, Sensation Intact Psych/Mental Status: Mental Status NL, Mood NL Results Lab Laboratory Tests 09/15/20 11:20 09/16/20 03:48 A/P-Cardiology Admission Diagnosis Nonhealing foot ulcer Peripheral arterial disease Hypertension Hyperlipidemia Assessment/Plan Nonhealing foot ulcer, angiogram was done on September 15, 2020 showing total occlusion of the anterior tibial artery status post balloon angioplasty with good results done on the left leg, angiogram to the right leg was done. Hypertension, controlled, continue current medication Hyperlipidemia, started on Lipitor. ALINA GREGG MD Sep 16, 2020 8:36 am
[2020-09-16] MEDS ORDERED: TAMSULOSIN 0.4 MG (FLOMAX) CAP PO SCH (09:00)
[2020-09-16] MEDS ORDERED: NON-FORMULARY MEDICATION 1 EA EA (Ropinirole HCl 0.5 MG) PO SCH (09:00)
[2020-09-16] MEDS ORDERED: SERTRALINE 50 MG (ZOLOFT) TABLET PO SCH (09:00)
[2020-09-16] MEDS ORDERED: rOPINIRole 0.25 MG (REQUIP) TAB PO SCH (09:00)
[2020-09-16] MEDS ORDERED: NON-FORMULARY MEDICATION 1 EA EA (Potassium Chloride 20 MEQ) PO SCH (09:00)
[2020-09-16] MEDS ORDERED: ASPIRIN E.C. 81 MG (ECOTRIN) TAB PO SCH (09:00)
[2020-09-16] MEDS ORDERED: NON-FORMULARY MEDICATION 1 EA EA (Dapagliflozin Propanediol (Farxiga) 10 MG) PO SCH (09:00)
[2020-09-16] MEDS ORDERED: FARXIGA 10 MG TABLET PO SCH (09:00)
[2020-09-16] MEDS ORDERED: CLOPIDOGREL 75 MG (PLAVIX) TABLET PO SCH (09:00)
[2020-09-16] MEDS ORDERED: LOSARTAN 25 MG (COZAAR) TAB PO SCH (09:00)
[2020-09-16] MEDS ORDERED: SERTRALINE 100 MG (ZOLOFT) TAB PO SCH (09:00)
[2020-09-16] MEDS ORDERED: PANTOPRAZOLE 40 MG (PROTONIX) TAB PO SCH (09:00)
[2020-09-16] MEDS ORDERED: AMIODARONE 200 MG (CORDARONE) TAB PO SCH (09:00)
[2020-09-16] MEDS ORDERED: VRAYLAR 1.5 MG CAPSULE PO SCH (09:00)
[2020-09-16] MEDS: PREGABALIN 150 MG (LYRICA) CAPSULE PO SCH (09:02)
[2020-09-16] MEDS: DIVALPROEX 500 MG DELAYED RELEASE (DEPAKOTE) TAB PO SCH (09:02)
[2020-09-16] MEDS: CARVEDILOL 3.125 MG (COREG) TABLET PO SCH (09:03)
--- NOTE | 2020-09-16 09:45 | NUR ---
PT EDUCATED ON DC INSTRUCTIONS. PT STATED UNDERSTANDING. PT DENIES ANY QUESTIONS. PT STATED HE WOULD LIKE TO MAKE HIS OWN FOLLOW UP APPOINTMENT WITH DR GREGG. THIS NURSE GAVE PT DR GREGG'S OFFICE NUMBER. PT TAKEN TO CAR VIA WHEELCHAIR WITH BELONGINGS AND MEDICATIONS.
[2020-09-16 09:50] VITALS: BP 171/94
== END 2020-09-16 09:53 | disposition home or self-care (01) ==
LOC: CATH 10:32 → CSD 14:15 → CATH 09-16 09:53
PROVIDERS: ATTEND Internal Medicine Cardiovascular Disease
DX: I70.202 Unspecified atherosclerosis of native arteries of extremities, left leg (principal); L97.829 Non-pressure chronic ulcer of other part of left lower leg with unspecified severity; E78.5 Hyperlipidemia, unspecified; I31.9 Disease of pericardium, unspecified; I11.0 Hypertensive heart disease with heart failure; I50.22 Chronic systolic (congestive) heart failure; I50.9 Heart failure, unspecified; E78.2 Mixed hyperlipidemia; I48.91 Unspecified atrial fibrillation; F41.9 Anxiety disorder, unspecified; I25.10 Atherosclerotic heart disease of native coronary artery without angina pectoris; I25.5 Ischemic cardiomyopathy; E66.01 Morbid (severe) obesity due to excess calories; Z68.41 Body mass index [BMI] 40.0-44.9, adult; Z95.5 Presence of coronary angioplasty implant and graft; Z79.82 Long term (current) use of aspirin; Z79.899 Other long term (current) drug therapy; Z79.01 Long term (current) use of anticoagulants; Z87.891 Personal history of nicotine dependence
CPT/HCPCS: 36248; 36415; 71045; 75716; 80048; 80053; 80061; 85027; 85610; 85730; 87081

== ENCOUNTER → 2020-09-22 | Outpatient (CLI) | payer MEDICAID ==
[~2020-09-22] MED LIST changes: +ATOR10TA PO; +FURO40TA4 PO; +POTA-51 PO; +SERT50TA9 PO
== END ==
LOC: WOUNDCARE 10:46
PROVIDERS: ATTEND Surgery
DX: I96 Gangrene, not elsewhere classified (principal); L89.623 Pressure ulcer of left heel, stage 3; I70.244 Atherosclerosis of native arteries of left leg with ulceration of heel and midfoot; E11.621 Type 2 diabetes mellitus with foot ulcer; E11.42 Type 2 diabetes mellitus with diabetic polyneuropathy
CPT/HCPCS: 11042

== ENCOUNTER → 2020-09-29 | Outpatient (CLI) | payer MEDICAID | LOC: WOUNDCARE 10:27 | PROVIDERS: ATTEND Surgery | DX: I70.244 Atherosclerosis of native arteries of left leg with ulceration of heel and midfoot (principal); L89.623 Pressure ulcer of left heel, stage 3; E11.621 Type 2 diabetes mellitus with foot ulcer; E11.42 Type 2 diabetes mellitus with diabetic polyneuropathy | CPT/HCPCS: 99212 ==

== ENCOUNTER → 2020-10-06 | Outpatient (CLI) | payer MEDICAID | LOC: WOUNDCARE 10:23 | PROVIDERS: ATTEND Surgery | DX: E11.621 Type 2 diabetes mellitus with foot ulcer (principal); E11.42 Type 2 diabetes mellitus with diabetic polyneuropathy; I96 Gangrene, not elsewhere classified; I70.244 Atherosclerosis of native arteries of left leg with ulceration of heel and midfoot; L97.421 Non-pressure chronic ulcer of left heel and midfoot limited to breakdown of skin | CPT/HCPCS: 97597 ==

== ENCOUNTER → 2020-10-20 | Outpatient (CLI) | payer MEDICAID | LOC: WOUNDCARE 10:26 | PROVIDERS: ATTEND Surgery | DX: M35.9 Systemic involvement of connective tissue, unspecified (principal); I96 Gangrene, not elsewhere classified; L97.421 Non-pressure chronic ulcer of left heel and midfoot limited to breakdown of skin; E11.621 Type 2 diabetes mellitus with foot ulcer; E11.42 Type 2 diabetes mellitus with diabetic polyneuropathy; L97.221 Non-pressure chronic ulcer of left calf limited to breakdown of skin | CPT/HCPCS: 99214 ==

== ENCOUNTER → 2020-10-28 | Outpatient (CLI) | payer MEDICAID | LOC: WOUNDCARE 14:00 | PROVIDERS: ATTEND Surgery | DX: E11.621 Type 2 diabetes mellitus with foot ulcer (principal); E11.42 Type 2 diabetes mellitus with diabetic polyneuropathy; M35.9 Systemic involvement of connective tissue, unspecified; I96 Gangrene, not elsewhere classified; L97.421 Non-pressure chronic ulcer of left heel and midfoot limited to breakdown of skin; L97.221 Non-pressure chronic ulcer of left calf limited to breakdown of skin | CPT/HCPCS: 99213 ==

== ENCOUNTER → 2020-11-03 | Outpatient (CLI) | payer MEDICAID | LOC: WOUNDCARE 10:24 | PROVIDERS: ATTEND Surgery | DX: E11.52 Type 2 diabetes mellitus with diabetic peripheral angiopathy with gangrene (principal); E11.621 Type 2 diabetes mellitus with foot ulcer; E11.42 Type 2 diabetes mellitus with diabetic polyneuropathy; I96 Gangrene, not elsewhere classified; L97.221 Non-pressure chronic ulcer of left calf limited to breakdown of skin; L97.422 Non-pressure chronic ulcer of left heel and midfoot with fat layer exposed; M35.9 Systemic involvement of connective tissue, unspecified | CPT/HCPCS: 99213 ==

== ENCOUNTER → 2020-11-10 | Outpatient (CLI) | payer MEDICAID | LOC: WOUNDCARE 10:18 | PROVIDERS: ATTEND Surgery | DX: M35.9 Systemic involvement of connective tissue, unspecified (principal); L97.222 Non-pressure chronic ulcer of left calf with fat layer exposed; L97.422 Non-pressure chronic ulcer of left heel and midfoot with fat layer exposed; E11.621 Type 2 diabetes mellitus with foot ulcer; E11.42 Type 2 diabetes mellitus with diabetic polyneuropathy; E11.52 Type 2 diabetes mellitus with diabetic peripheral angiopathy with gangrene | CPT/HCPCS: 99213 ==

== ENCOUNTER → 2020-11-17 | Outpatient (CLI) | payer MEDICAID | LOC: WOUNDCARE 10:24 | PROVIDERS: ATTEND Surgery | DX: E11.52 Type 2 diabetes mellitus with diabetic peripheral angiopathy with gangrene (principal); E11.621 Type 2 diabetes mellitus with foot ulcer; E11.42 Type 2 diabetes mellitus with diabetic polyneuropathy; I96 Gangrene, not elsewhere classified; L97.222 Non-pressure chronic ulcer of left calf with fat layer exposed; L97.422 Non-pressure chronic ulcer of left heel and midfoot with fat layer exposed; M35.9 Systemic involvement of connective tissue, unspecified | CPT/HCPCS: 99213 ==

== ENCOUNTER → 2020-12-01 | Outpatient (CLI) | payer MEDICAID | LOC: WOUNDCARE 10:21 | PROVIDERS: ATTEND Surgery | DX: E11.621 Type 2 diabetes mellitus with foot ulcer (principal); E11.52 Type 2 diabetes mellitus with diabetic peripheral angiopathy with gangrene; E11.42 Type 2 diabetes mellitus with diabetic polyneuropathy; I96 Gangrene, not elsewhere classified; L97.222 Non-pressure chronic ulcer of left calf with fat layer exposed; L97.422 Non-pressure chronic ulcer of left heel and midfoot with fat layer exposed; M35.9 Systemic involvement of connective tissue, unspecified | CPT/HCPCS: 11042 ==

== ENCOUNTER → 2020-12-07 | Outpatient (CLI) | payer MEDICAID | LOC: WOUNDCARE 10:43 | PROVIDERS: ATTEND Orthopaedic Surgery Hand Surgery | DX: M35.9 Systemic involvement of connective tissue, unspecified (principal); I73.9 Peripheral vascular disease, unspecified; L97.222 Non-pressure chronic ulcer of left calf with fat layer exposed; L97.422 Non-pressure chronic ulcer of left heel and midfoot with fat layer exposed; E11.621 Type 2 diabetes mellitus with foot ulcer; E11.42 Type 2 diabetes mellitus with diabetic polyneuropathy | CPT/HCPCS: 11042 ==

== ENCOUNTER → 2020-12-15 | Outpatient (CLI) | payer MEDICAID | LOC: WOUNDCARE 10:13 | PROVIDERS: ATTEND Surgery | DX: M35.9 Systemic involvement of connective tissue, unspecified (principal); L97.212 Non-pressure chronic ulcer of right calf with fat layer exposed; L97.422 Non-pressure chronic ulcer of left heel and midfoot with fat layer exposed; E11.621 Type 2 diabetes mellitus with foot ulcer; E11.42 Type 2 diabetes mellitus with diabetic polyneuropathy; I73.9 Peripheral vascular disease, unspecified | CPT/HCPCS: 99213 ==

== ENCOUNTER → 2021-01-05 | Outpatient (CLI) | payer MEDICAID ==
[~2021-01-05] MED LIST changes: +SERT-413 PO; +SERT-414 PO; -SERT100T8 PO; -SERT50TA9 PO
== END ==
LOC: WOUNDCARE 10:26
PROVIDERS: ATTEND Surgery
DX: M35.9 Systemic involvement of connective tissue, unspecified (principal); L97.212 Non-pressure chronic ulcer of right calf with fat layer exposed; L97.422 Non-pressure chronic ulcer of left heel and midfoot with fat layer exposed; E11.621 Type 2 diabetes mellitus with foot ulcer; E11.42 Type 2 diabetes mellitus with diabetic polyneuropathy; I73.9 Peripheral vascular disease, unspecified
CPT/HCPCS: 99213

== ENCOUNTER → 2021-01-11 | Outpatient (CLI) | payer MEDICAID | LOC: WOUNDCARE 12:34 | PROVIDERS: ATTEND Surgery | DX: M35.9 Systemic involvement of connective tissue, unspecified (principal); L97.222 Non-pressure chronic ulcer of left calf with fat layer exposed; L97.422 Non-pressure chronic ulcer of left heel and midfoot with fat layer exposed; E11.621 Type 2 diabetes mellitus with foot ulcer; E11.42 Type 2 diabetes mellitus with diabetic polyneuropathy; I73.9 Peripheral vascular disease, unspecified; E11.52 Type 2 diabetes mellitus with diabetic peripheral angiopathy with gangrene | CPT/HCPCS: 99213 ==

== ENCOUNTER → 2021-01-19 | Outpatient (CLI) | payer MEDICAID | LOC: WOUNDCARE 10:15 | PROVIDERS: ATTEND Surgery | DX: M35.9 Systemic involvement of connective tissue, unspecified (principal); L97.221 Non-pressure chronic ulcer of left calf limited to breakdown of skin; E11.42 Type 2 diabetes mellitus with diabetic polyneuropathy; I70.242 Atherosclerosis of native arteries of left leg with ulceration of calf; E11.52 Type 2 diabetes mellitus with diabetic peripheral angiopathy with gangrene | CPT/HCPCS: 99213 ==

== ENCOUNTER → 2021-01-26 | Outpatient (CLI) | payer MEDICAID ==
[~2021-01-26] MED LIST changes: +DIAZ2TAB2 PO; +METF-397 PO; +PRED5TAB46 PO; +ROPI3TAB PO
== END ==
LOC: WOUNDCARE 10:29
PROVIDERS: ATTEND Surgery
DX: M35.9 Systemic involvement of connective tissue, unspecified (principal); L97.221 Non-pressure chronic ulcer of left calf limited to breakdown of skin; E11.42 Type 2 diabetes mellitus with diabetic polyneuropathy; I70.242 Atherosclerosis of native arteries of left leg with ulceration of calf
CPT/HCPCS: 99212

== ENCOUNTER → 2021-02-02 | Outpatient (CLI) | payer MEDICAID ==
[~2021-02-02] MED LIST changes: -DIAZ2TAB2 PO; -METF-397 PO; -PRED5TAB46 PO; -ROPI3TAB PO
== END ==
LOC: WOUNDCARE 10:11
PROVIDERS: ATTEND Surgery
DX: M35.9 Systemic involvement of connective tissue, unspecified (principal); L97.221 Non-pressure chronic ulcer of left calf limited to breakdown of skin; E11.42 Type 2 diabetes mellitus with diabetic polyneuropathy; I70.242 Atherosclerosis of native arteries of left leg with ulceration of calf
CPT/HCPCS: 99212

== ENCOUNTER → 2021-02-07 | Outpatient (CLI) | payer MEDICAID ==
[~2021-02-07] VITALS: Ht 177 cm; Wt 138.0 kg
[~2021-02-07] MED LIST changes: +CATHETER FLUSH 10 ML SYR IV PRN; +REGADENOSON 0.4 MG/5 ML SYR (LEXISCAN) IV ONE
[2021-02-07 09:31] VITALS: BP 96/59
--- NOTE | 2021-02-07 18:28 | Cardiology Stress Test Report ---
Stress Test Report Date of Procedure/Referring: Date of Procedure: Feb 07, 2021 PCP Alina Franklin MD Admitting Physician Hi Smith - [facility] Indications: Coronary artery disease Baseline Heart Rate: 59 Baseline Blood Pressure: Blood Pressure Systolic: 96 Blood Pressure Diastolic: 59 Baseline Vitals Vital Signs Date Time Temp Pulse Resp B/P (MAP) Pulse Ox O2 Delivery O2 Flow Rate FiO2 02/07/21 09:31 60 18 96/59 (71) 97 Room Air Baseline EKG: Baseline EKG: Sinus rhythm Summary After explaining the procedure to the patient, he signed a consent and then brought to the stress nuclear laboratory. Patient received 0.4 mg Lexiscan for stress test, ECG, heart rate and blood pressure were monitored continuously. Resting and stress dose of radio tracer were injected, imaging was acquired and reviewed in short axis, horizontal long axis and vertical long axis views. TID: 1.14 SSS: 7 SDS: 4 EF: 45 1. Patient tolerated Lexiscan well 2. Reversible ischemia involving the mid to apical inferior wall and inferolateral wall 3. Normal left ventricular size, mild hypokinesia at the apex and anteroapical segment, EF 45% ALINA FRANKLIN MD Feb 07, 2021 18:28
== END ==
LOC: CARD 08:15
PROVIDERS: ATTEND Internal Medicine Cardiovascular Disease
DX: I25.10 Atherosclerotic heart disease of native coronary artery without angina pectoris (principal)
CPT/HCPCS: 78452; 93017

== ENCOUNTER → 2021-02-07 | Outpatient (CLI) | payer MEDICAID ==
[~2021-02-07] MED LIST changes: -CATHETER FLUSH 10 ML SYR IV PRN; +DIAZ2TAB2 PO; +METF-397 PO; +PRED5TAB46 PO; -REGADENOSON 0.4 MG/5 ML SYR (LEXISCAN) IV ONE; +ROPI3TAB PO
== END ==
LOC: CARD 11:15
PROVIDERS: ATTEND Internal Medicine Cardiovascular Disease
DX: I25.10 Atherosclerotic heart disease of native coronary artery without angina pectoris (principal); I51.7 Cardiomegaly
CPT/HCPCS: 93306

== ENCOUNTER → 2021-02-09 | Outpatient (CLI) | payer MEDICAID ==
[~2021-02-09] MED LIST changes: -DIAZ2TAB2 PO; -METF-397 PO; -PRED5TAB46 PO; -ROPI3TAB PO
== END ==
LOC: WOUNDCARE 10:30
PROVIDERS: ATTEND Surgery
DX: M35.9 Systemic involvement of connective tissue, unspecified (principal); L97.221 Non-pressure chronic ulcer of left calf limited to breakdown of skin; E11.42 Type 2 diabetes mellitus with diabetic polyneuropathy; I70.242 Atherosclerosis of native arteries of left leg with ulceration of calf
CPT/HCPCS: 99212

== ENCOUNTER → 2021-02-15 | Outpatient (CLI) | payer MEDICAID ==
[~2021-02-15] MED LIST changes: +DIAZ2TAB2 PO; +METF-397 PO; +PRED5TAB46 PO; +ROPI3TAB PO
== END ==
LOC: WOUNDCARE 09:25
PROVIDERS: ATTEND Surgery
DX: M35.9 Systemic involvement of connective tissue, unspecified (principal); L97.221 Non-pressure chronic ulcer of left calf limited to breakdown of skin; E11.42 Type 2 diabetes mellitus with diabetic polyneuropathy; I70.242 Atherosclerosis of native arteries of left leg with ulceration of calf
CPT/HCPCS: 99212

== ENCOUNTER 2021-02-16 13:00 | Day surgery (SDC) | payer MEDICAID ==
[~2021-02-16] VITALS: Ht 177.8 cm; Wt 137.0 kg
[2021-02-16] VITALS (14 sets, daily range): BP systolic 105–144; BP diastolic 64–91
--- NOTE | 2021-02-16 11:39 | Diagnostic Imaging Report ---
INDICATION: Preop coronary disease FINDINGS: The lungs are clear. The heart size within normal limits. No failure, effusion or pneumothorax. IMPRESSION: Negative. Dictated by: Dictated on workstation # [id number]
[2021-02-16 11:59] LABS: HEMOGLOBIN 14.2 g/dL (13.3-17.7); MEAN PLATELET VOLUME 9.3 fL (9.0-12.2); WHITE BLOOD COUNT 8.6 10^3/uL (4.3-11.0)
[2021-02-16 12:19] LABS: INR 0.9 (0.8-1.4); PROTHROMBIN TIME PATIENT 12.3 SEC (12.2-14.7)
[2021-02-16 12:26] LABS: ALANINE AMINOTRANSFERASE 34 U/L (0-55); ALBUMIN 3.9 GM/DL (3.2-4.5); ALKALINE PHOSPHATASE 66 U/L (40-136); BILIRUBIN,TOTAL 0.5 MG/DL (0.1-1.0); BUN/CREATININE RATIO 12; CALCIUM 8.6 MG/DL (8.5-10.1); CARBON DIOXIDE 29 MMOL/L (21-32); CHLORIDE 94 MMOL/L (98-107); CHOLESTEROL 169 MG/DL (< 200); CREATININE SERUM 1.14 MG/DL (0.60-1.30); GFR ESTIMATED > 60; GLUCOSE 238 MG/DL (70-105); HDL CHOLESTEROL 61 MG/DL (40-60); POTASSIUM 4.5 MMOL/L (3.6-5.0); SODIUM 138 MMOL/L (135-145); TOTAL PROTEIN 6.9 GM/DL (6.4-8.2); TRIGLYCERIDES 267 MG/DL (<150); VLDL CHOLESTEROL 53 MG/DL (5-40)
[~2021-02-16 13:00] MED LIST changes: +HEParin (CATH LAB) 2,000 ML IV ONE; +LIDOCAINE 1% INJ 20 ML 20 ML VIAL ONE; +NS IV 1000 ML 1,000 ML IV SCH; +NS IV 1000 ML 1,000 ML ONE
[2021-02-16] MEDS ORDERED: MIDAZOLAM 5 MG/5 ML (VERSED) VIAL ONE (13:52)
[2021-02-16] MEDS ORDERED: HEParin 1000 UNIT/ML (10ML VIAL) FOR BOLUS ONE (13:53)
[2021-02-16] MEDS ORDERED: VERAPAMIL 5 MG/2 ML (CALAN) VIAL IV ONE (13:53)
[2021-02-16] MEDS ORDERED: NITRO DRIP 25000 MCG/D5W 250 ML IV ONE (13:53)
[2021-02-16] MEDS ORDERED: fentaNYL INJ 100 MCG/2 ML AMP ONE (13:53)
[2021-02-16] MEDS ORDERED: ONDANSETRON 4 MG/2 ML (SDV) Z0FRAN ONE (14:46)
[2021-02-16] MEDS ORDERED: ASPIRIN 325 MG (5 GR) TABLET ONE (14:53)
[2021-02-16] MEDS ORDERED: CLOPIDOGREL 300 MG (PLAVIX) TABLET PO ONE (14:53)
--- NOTE | 2021-02-16 14:54 | Cardiac Procedure Note-CS/ASA ---
Pre-Procedure Note Pre-Op Procedure Note H&P Reviewed The H&P was reviewed, patient examined and no changes noted. Date H&P Reviewed: Feb 16, 2021 Time H&P Reviewed: 13:00 Conscious Sedation Pre-Proced Time 13:00 ASA Score 3 For ASA 3 and 4: Consider anesthesia and medical clearance. Also, for patients with a history of failed moderate sedation consider anesthesia. Airway Lungs Heart ASA score ASA 1: a normal healthy patient ASA 2: a patient with a mild systemic disease (mid diabetes, controlled hypertension, obesity x ASA 3: a patient with a severe systemic disease that limits activity (angina, COPD, prior Myocardial infarction) ASA 4: a patient with an incapacitating disease that is a constant threat to life (CHF, renal failure) ASA 5: a moribund patient not expected to survive 24 hrs. (ruptured aneurysm) ASA 6: a declared brain- patient whose organs are being harvested. For emergent operations, add the letter E after the classification Mallampati Classification Grade 3 Sedation Plan Analgesia, Amnesia, Plan communicated to team members, Discussed options with patient/fam, Discussed risks with patient/fam The patient is an appropriate candidate to undergo the planned procedure, sedation, and anesthesia. The patient immediately re-assessed prior to indication. ALINA GREGG MD Feb 16, 2021 2:54 pm
[2021-02-16] MEDS ORDERED: NITROGLYCERIN 0.4 MG SL TABS BTL 25'S SL PRN (15:00)
[2021-02-16] MEDS ORDERED: PATIENT MAY USE OWN MEDS, ALL PO SCH (15:00)
--- NOTE | 2021-02-16 15:01 | Cardiac Cath Report ---
Cardiac Cath Report Physician (s)/Carpenter (s) Physician ALINA GREGG MD Pre-Procedure Diagnosis Pre-Procedure Diagnosis: Coronary artery disease Post-Procedure Note Procedure Start Date: Feb 16, 2021 Name of Procedure: Left heart catheterization Primary stenting to the right coronary artery Findings/Procedure Note PROCEDURE NOTE: 55 years old gentleman with history of coronary artery disease, multiple intervention, had an abnormal stress test, scheduled for cardiac catheterization possible PTCA After explaining the procedure to the patient, all pros and cons were explained, all questions were answered. The patient signed the consent and then he was placed on the cardiac catheterization laboratory. Groin was prepped SL fashion local anesthesia was used. Sheath placed in the right femoral artery. La right and left catheter were used to access the coronary system. Pigtail was used to access the left ventricular cavity. Left ventriculogram was not done, pressure was measured Patient was seen to have severe proximal right coronary artery stenosis, given 6000 units of heparin, BMW wire was advanced through FIR guide parked in the distal right coronary artery, primary stenting using 3.5 x 18 mm Marcia stent deployed overlapping with an old stent in the mid right coronary artery expanded to 3.77 mm with excellent results At the end of the procedure the sheath was removed. Closure device was deployed FINDINGS: Hemodynamics LV 107/13, end-diastolic pressure of 13 Aorta 109/64 mean of 74 ANATOMY: Left Main is free of obstructive disease Left Anterior Descending is calcified with patent stent in the proximal LAD mild disease distally Left Circumflex has mild disease nonobstructive disease Right Coronory Artery has patent stent in the mid right coronary artery severe stenosis proximal of the stent, successful primary stenting using Marcia 3.5 x 18 mm expanded to 3.8 mm overlapping with the mid coronary artery stent with excellent results LV Gram was not done pressure was measured CONCLUSION: 1. Severe stenosis in the proximal right coronary artery successful primary stenting using Marcia 3.5 x 18 mm overlapping with an old stent in the mid right coronary artery expanded to 3.8 mm with excellent results 2. Patent stent in the LAD, mild coronary artery disease otherwise 3. Normal left ventricular end-diastolic pressure DISCUSSION AND RECOMMENDATION: Continue to maximize medical therapy. Patient will be monitored overnight Estimated blood loss (mL): 35 ml Contrast Amount: 70 ml Total Radiation Dose: 803 mGy Post-Procedure Diagnosis Post-operative diagnosis: Chest pain Coronary artery disease Hypertension Hyperlipidemia ALINA GREGG MD Feb 16, 2021 3:01 pm
[2021-02-16] MEDS: NS IV 1000 ML 1,000 ML IV SCH ×2 (16:35→22:29)
[2021-02-16] MEDS: oxyCODONE/APAP 7.5-325 MG (PERCOCET 7.5) TABLET PO PRN (17:32)
[2021-02-16] MEDS: predniSONE 5 MG TAB PO SCH (17:32)
[2021-02-16] MEDS: inSUlin ASPART (NovoLOG) 1 UNIT/0.01 ML (CHARGE PER UNIT) SC SCH ×2 (17:33→22:02)
[2021-02-16] MEDS ORDERED: DIVALPROEX 500 MG DELAYED RELEASE (DEPAKOTE) TAB PO SCH (21:00)
[2021-02-16] MEDS ORDERED: PREGABALIN 150 MG (LYRICA) CAPSULE PO SCH (21:00)
[2021-02-16] MEDS ORDERED: DIAZEPAM 2 MG (VALIUM) TAB PO SCH ×2 (21:00)
[2021-02-16] MEDS ORDERED: PREDNISONE 5 MG PO SCH (21:00)
[2021-02-16] MEDS: CARVEDILOL 3.125 MG (COREG) TABLET PO SCH (21:51)
[2021-02-16] MEDS: DIVALPROEX 500 MG DELAYED RELEASE (DEPAKOTE) TAB PO SCH (21:52)
[2021-02-16] MEDS: PREGABALIN 150 MG (LYRICA) CAPSULE PO SCH (22:01)
[2021-02-17] VITALS (8 sets, daily range): BP systolic 104–139; BP diastolic 75–89
[2021-02-17 03:28] LABS: HEMOGLOBIN 13.8 g/dL (13.3-17.7); MEAN PLATELET VOLUME 9.5 fL (9.0-12.2); WHITE BLOOD COUNT 7.5 10^3/uL (4.3-11.0)
[2021-02-17 04:03] LABS: BUN/CREATININE RATIO 11; CALCIUM 8.4 MG/DL (8.5-10.1); CARBON DIOXIDE 30 MMOL/L (21-32); CHLORIDE 101 MMOL/L (98-107); CREATININE SERUM 0.97 MG/DL (0.60-1.30); GFR ESTIMATED > 60; GLUCOSE 147 MG/DL (70-105); POTASSIUM 4.1 MMOL/L (3.6-5.0); SODIUM 142 MMOL/L (135-145)
[2021-02-17] MEDS ORDERED: METF-397 PO (05:00)
[2021-02-17] MEDS ORDERED: CLOP75TA28 PO (05:00)
--- NOTE | 2021-02-17 05:01 | Discharge Inst-Post CATH ---
Discharge Inst-CATH/EP Problems Reviewed?: Yes Post Cardiac Cath/EP D/C Inst Follow Up/Plan Appointment with Dr Franklin in 2-4 weeks <b>CARDIAC CATH/EP PROCEDURE DISCHARGE INSTRUCTIONS</b> ACTIVITY * Go Home directly and rest. * Limit activity of the leg (or wrist if it was used) for 7 days including aerobics, swimming, jogging, bicycling, etc. * Restrict stair-climbing for 7 days if possible, if not, climb up with your non-cath leg, then bring together on the same step. * Avoid lifting, pushing, pulling or excessive movement of the affected extremity for 7 days. * Customary sexual activity may be resumed after 2 days-use caution not to use a position that strains or causes pain to the affected extremity. * No driving for 24 hours. * NO SMOKING. * Avoid straining for bowel movements for 7 days. * Gentle walking on level ground is allowed. * Returning to work will depend on the type of procedure and the results. Your doctor will discuss this with you. CALL YOUR DOCTOR FOR ANY OF THE FOLLOWING: *If bleeding from the puncture site occurs- Apply gentle pressure to site with clean cloth and call your doctor or EMS. * If a knot or lump forms under the skin, increases in size, or causes pain. * If bruising appears to be worsening or moving further down your leg instead of disappearing. * Temperature above 101 F. CARE OF YOUR GROIN INCISION; * Bruising or purple discoloration of the skin near the puncture site is common. * You may shower only, no bathtub bathing for 5 days. Be careful to avoid slipping as your leg may feel stiff. * If a closure device was used on your femoral artery, please see the attached guide regarding care of the device and your leg. * Leave dressing on FOR 24 hours. CARE OF YOUR WRIST INCISION; * Bruising or purple discoloration of the skin near the puncture site is common. * You may shower. * DO NOT submerge wrist. * Leave dressing on FOR 24 hours. ALINA FRANKLIN MD Feb 17, 2021 05:01
[2021-02-17] MEDS: inSUlin ASPART (NovoLOG) 1 UNIT/0.01 ML (CHARGE PER UNIT) SC SCH (06:10)
[2021-02-17] MEDS: oxyCODONE/APAP 7.5-325 MG (PERCOCET 7.5) TABLET PO PRN (06:15)
--- NOTE | 2021-02-17 06:57 | Cardiology Progress Note ---
Subjective Date Seen by Provider: Feb 17, 2021 Time Seen by Provider: 07:57 Subjective/Events-last exam Patient is sitting in bed, feeling well. No new complaint Review of Systems General: No Chills, No Night Sweats, No Fatigue, No Malaise, No Appetite, No Other HEENT: No Head Aches, No Visual Changes, No Eye Pain, No Ear Pain, No Dysphasia, No Sinus Congestion, No Post Nasal Drip, No Sore Throat, No Other Pulmonary: No Dyspnea, No Cough, No Pleuritic Chest Pain, No Other Cardiovascular: No: Chest Pain, Palpitations, Orthopnea, Paroxysmal Noc. Dyspnea, Edema, Lt Headedness, Other Objective-Cardiology Exam Last Set of Vital Signs Vital Signs 02/17/21 02/17/21 04:12 06:00 Temp 36.6 Pulse 61 Resp 11 B/P (MAP) 134/83 (100) Pulse Ox 96 O2 Delivery Nasal Cannula O2 Flow Rate 2.00 Capillary Refill : Less Than 3 Seconds I&O Intake and Output 02/17/21 00:00 Intake Total 1472 ml Output Total 600 ml Balance 872 ml Intake Oral 472 ml IV Total 1000 ml Output Urine Total 600 ml Daily Weight Change No General: Alert, Oriented X3, Cooperative HEENT: Atraumatic, PERRLA Neck: Supple, No JVD, No Thyromegaly Lungs: Clear to Auscultation, Normal Air Movement Heart: Regular Rate, Normal S1, Normal S2, No Murmurs Abdomen: Normal Bowel Sounds, Soft, No Tenderness, No Hepatosplenomegaly, No Masses Extremities: No Clubbing, No Cyanosis, No Edema, Normal Pulses, No Tenderness/Swelling Skin: No Rashes, No Breakdown, No Significant Lesion Neuro: Normal Gait, Normal Speech, Strength at 5/5 X4 Ext, Normal Tone, Sensation Intact Psych/Mental Status: Mental Status NL, Mood NL Results Lab Laboratory Tests 02/16/21 11:44 02/17/21 02:10 A/P-Cardiology Admission Diagnosis Coronary artery disease Hypertension Hyperlipidemia Assessment/Plan Coronary artery disease, multiple intervention in the past, status post cardiac catheterization and stenting as described below 1. Severe stenosis in the proximal right coronary artery successful primary stenting using Marcia 3.5 x 18 mm overlapping with an old stent in the mid right coronary artery expanded to 3.8 mm with excellent results 2. Patent stent in the LAD, mild coronary artery disease otherwise 3. Normal left ventricular end-diastolic pressure Hypertension, restart home medication monitor blood pressure Hyperlipidemia, monitor lipids Groin is healing well. Educated on medication Patient has been on amiodarone since November 2019, not on any oral anti coagulation it was started during hospitalization to [facility], at this point I instructed him to stop amiodarone and will monitor him as an outpatient ALINA GREGG MD Feb 17, 2021 06:57
[2021-02-17] MEDS ORDERED: KCL 20 MEQ TAB (K-DUR) PO SCH (07:00)
[2021-02-17] MEDS ORDERED: PANTOPRAZOLE 40 MG (PROTONIX) TAB PO SCH (09:00)
[2021-02-17] MEDS ORDERED: AMIODARONE 200 MG (CORDARONE) TAB PO SCH (09:00)
[2021-02-17] MEDS ORDERED: ASPIRIN E.C. 81 MG (ECOTRIN) TAB PO SCH (09:00)
[2021-02-17] MEDS ORDERED: TAMSULOSIN 0.4 MG (FLOMAX) CAP PO SCH (09:00)
[2021-02-17] MEDS ORDERED: VRAYLAR 1.5 MG CAPSULE PO SCH (09:00)
[2021-02-17] MEDS ORDERED: LOSARTAN 25 MG (COZAAR) TAB PO SCH (09:00)
[2021-02-17] MEDS ORDERED: SERTRALINE 100 MG (ZOLOFT) TAB PO SCH (09:00)
[2021-02-17] MEDS ORDERED: FUROSEMIDE 40 MG (LASIX) TAB PO SCH (09:00)
[2021-02-17] MEDS ORDERED: FARXIGA 10 MG TABLET PO SCH (09:00)
[2021-02-17] MEDS ORDERED: CLOPIDOGREL 75 MG (PLAVIX) TABLET PO SCH (09:00)
[2021-02-17] MEDS ORDERED: NON-FORMULARY MEDICATION 1 EA EA (Dapagliflozin Propanediol (Farxiga) 10 MG) PO SCH (09:00)
[2021-02-17] MEDS ORDERED: NON-FORMULARY MEDICATION 1 EA EA (Potassium Chloride 20 MEQ) PO SCH (09:00)
[2021-02-17] MEDS: CARVEDILOL 3.125 MG (COREG) TABLET PO SCH (09:15)
[2021-02-17] MEDS: predniSONE 5 MG TAB PO SCH (09:17)
[2021-02-17] MEDS: DIVALPROEX 500 MG DELAYED RELEASE (DEPAKOTE) TAB PO SCH (09:20)
[2021-02-17] MEDS: PREGABALIN 150 MG (LYRICA) CAPSULE PO SCH (09:25)
== END 2021-02-17 10:18 | disposition home or self-care (01) ==
LOC: CATH 13:00 → ICU 15:13 → CATH 02-17 10:18
PROVIDERS: ATTEND Internal Medicine Cardiovascular Disease
DX: I25.10 Atherosclerotic heart disease of native coronary artery without angina pectoris (principal); I25.5 Ischemic cardiomyopathy; E11.9 Type 2 diabetes mellitus without complications; I95.9 Hypotension, unspecified; I25.2 Old myocardial infarction; I11.0 Hypertensive heart disease with heart failure; I73.9 Peripheral vascular disease, unspecified; I50.22 Chronic systolic (congestive) heart failure; E78.2 Mixed hyperlipidemia; Z79.899 Other long term (current) drug therapy; Z79.82 Long term (current) use of aspirin; Z79.84 Long term (current) use of oral hypoglycemic drugs; Z87.891 Personal history of nicotine dependence
CPT/HCPCS: 36415; 71045; 80048; 80053; 80061; 82962; 85027; 85610; 85730; 87081; 93005; 93458

== ENCOUNTER → 2021-02-22 | Outpatient (CLI) | payer MEDICAID ==
[~2021-02-22] MED LIST changes: -HEParin (CATH LAB) 2,000 ML IV ONE; -LIDOCAINE 1% INJ 20 ML 20 ML VIAL ONE; -NS IV 1000 ML 1,000 ML IV SCH; -NS IV 1000 ML 1,000 ML ONE
== END ==
LOC: WOUNDCARE 10:51
PROVIDERS: ATTEND Surgery
DX: M35.9 Systemic involvement of connective tissue, unspecified (principal); L97.221 Non-pressure chronic ulcer of left calf limited to breakdown of skin; E11.42 Type 2 diabetes mellitus with diabetic polyneuropathy; I70.242 Atherosclerosis of native arteries of left leg with ulceration of calf
CPT/HCPCS: 99212

== ENCOUNTER → 2021-03-02 | Outpatient (CLI) | payer MEDICAID | LOC: WOUNDCARE 10:27 | PROVIDERS: ATTEND Surgery | DX: M35.9 Systemic involvement of connective tissue, unspecified (principal); L97.221 Non-pressure chronic ulcer of left calf limited to breakdown of skin; E11.42 Type 2 diabetes mellitus with diabetic polyneuropathy; I70.242 Atherosclerosis of native arteries of left leg with ulceration of calf | CPT/HCPCS: 99212 ==

== ENCOUNTER → 2021-03-09 | Outpatient (CLI) | payer MEDICAID | LOC: WOUNDCARE 10:22 | PROVIDERS: ATTEND Surgery | DX: M35.9 Systemic involvement of connective tissue, unspecified (principal); L97.221 Non-pressure chronic ulcer of left calf limited to breakdown of skin; E11.42 Type 2 diabetes mellitus with diabetic polyneuropathy; I70.242 Atherosclerosis of native arteries of left leg with ulceration of calf | CPT/HCPCS: 99212 ==

== ENCOUNTER 2021-03-19 10:42 | Inpatient (IN) | payer MEDICAID ==
[~2021-03-19] VITALS: Ht 175 cm; Wt 128.8 kg
[2021-03-19] MEDS ORDERED: LACTATED RINGERS 1,000 ML IV ONE (11:24)
[2021-03-19] MEDS ORDERED: ONDANSETRON 4 MG/2 ML (SDV) Z0FRAN ONE (11:25)
[2021-03-19] MEDS ORDERED: LACTATED RINGERS 1,000 ML IV STA (11:48)
[2021-03-19] MEDS ORDERED: ONDANSETRON 4 MG/2 ML (SDV) Z0FRAN IVP ONE (12:00)
--- NOTE | 2021-03-19 12:05 | ED General ---
General Chief Complaint: General Problems/Pain Stated Complaint: CHILLS,N/V,WEAKNESS,COUGH,SOB Source of Information: Patient Exam Limitations: No Limitations History of Present Illness Date Seen by Provider: March 19, 2021 Time Seen by Provider: 11:24 Initial Comments Here with report of fever, cough, runny nose, shortness of breath, nausea, vomiting and diarrhea that has been going on for about 4 days. Onset after tooth extraction as well as increase in his Metformin to 1000 mg daily. Has not had Covid vaccine nor has had Covid. He was tested for Covid yesterday which was reportedly negative [facility]. Everything was worse today so he presented. States that he is weak and just not feeling well. Timing/Duration: 4-5 Days, Getting Worse Severity: Moderate Associated Systoms: No Chest Pain; Cough, Fever/Chills; No Headaches; Nausea/Vomiting, Shortness of Air, Weakness Allergies and Home Medications Allergies Coded Allergies: No Known Drug Allergies (Unverified , 04/23/19) Home Medications Aspirin 81 Mg Tab.chew, 81 MG PO DAILY, (Reported) Atorvastatin Calcium 40 Mg Tablet, 40 MG PO DAILY, (Reported) Cariprazine Hydrochloride 1.5 Mg Capsule, 1.5 MG PO DAILY, (Reported) Carvedilol 3.125 Mg Tablet, 3.125 MG PO BID, (Reported) Clopidogrel Bisulfate 75 Mg Tablet, 0 MG PO DAILY Prescribed by: ALINA FRANKLIN on 02/17/21 0500 Dapagliflozin Propanediol 10 Mg Tablet, 10 MG PO DAILY, (Reported) Diazepam 2 Mg Tablet, 1 MG PO HS, (Reported) Divalproex Sodium 500 Mg Tablet.dr, 500 MG PO BID, (Reported) Furosemide 40 Mg Tablet, 40 MG PO DAILY, (Reported) Losartan Potassium 25 Mg Tablet, 25 MG PO DAILY, (Reported) Metformin HCl 500 Mg Tablet, 500 MG PO BID Hold Metformin for 48 hours Prescribed by: ALINA FRANKLIN on 02/17/21 0500 Nitroglycerin 0.4 Mg Tab.subl, 0.4 MG SL UD PRN for CHEST PAIN, (Reported) DISSOLVE ONE TABLET UNDER THE TONGUE EVERY 5 MINUTES NEEDED FOR CHEST PAIN. DO NOT EXCEED A TOTAL OF 3 DOSES IN 15 MINUTES Oxycodone HCl/Acetaminophen 1 Each Tablet, 1 TAB PO TID PRN for PAIN-MODERATE, (Reported) Pantoprazole Sodium 40 Mg Tablet.dr, 40 MG PO DAILY, (Reported) Potassium Chloride 20 Meq Tablet.er, 20 MEQ PO DAILY, (Reported) Prednisone 5 Mg Tab.ds.pk, 5 MG PO BID, (Reported) Pregabalin 150 Mg Capsule, 150 MG PO TID, (Reported) Sertraline HCl 100 Mg Tablet, 100 MG PO DAILY, (Reported) Tamsulosin HCl 0.4 Mg Cap, 0.4 MG PO DAILY, (Reported) Patient Home Medication List Home Medication List Reviewed: Yes Review of Systems Review of Systems Constitutional: see HPI; No chills, No fever EENTM: nose congestion; No throat pain Respiratory: cough, short of breath, wheezing Cardiovascular: No chest pain, No edema Gastrointestinal: No abdominal pain; diarrhea, nausea, vomiting Genitourinary: no symptoms reported Musculoskeletal: no symptoms reported Skin: no symptoms reported Psychiatric/Neurological: No Symptoms Reported All Other Systems Reviewed Negative Unless Noted: Yes Past Giqgbse-Rphfjq-Qxuszj Hx Past Med/Social Hx: Reviewed Nursing Past Med/Soc Hx Patient Social History Alcohol Use: Denies Use Drug of Choice: MARIJUANA Smoking Status: Current Everyday Smoker Type Used: Pipe 2nd Hand Smoke Exposure: No Recent Hopitalizations: No Immunizations Up To Date Tetanus Booster (TDap): Less than 5yrs Date of Pneumonia Vaccine: Aug 17, 2015 Date of Influenza Vaccine: Aug 18, 2020 Seasonal Allergies Seasonal Allergies: No Past Medical History Surgeries: Yes (RIGHT ROTATOR CUFF) Coronary Stent, Orthopedic Respiratory: Yes Sleep Apnea Currently Using CPAP: Yes Currently Using BIPAP: No Cardiac: Yes Atrial Fibrillation, Cardiomyopathy, Chronic Edema/Swelling, Coronary Artery Disease, Congenital Heart Disease, High Cholesterol, Hypertension, Peripheral Vascular Neurological: Yes Neuropathy, Paralysis Genitourinary: Yes Benign Prostatic Hyperpl, Prostate Problems, Neurogenic Bladder Gastrointestinal: No Chronic Constipation Musculoskeletal: Yes (neck/back injury 1998 recent anterior neck surgery on 12/11/19) Degenerate Disk Disease, Chronic Back Pain Endocrine: Yes Diabetes, Non-Insulin dep HEENT: No Cancer: No Psychosocial: Yes Anxiety, Bipolar, Depression Integumentary: No Blood Disorders: No Adverse Reaction/Blood Tranf: No Family Medical History Reviewed Nursing Family Hx Cardiovascular disease G8 SISTER Diabetes mellitus G8 SISTER Physical Exam Vital Signs Vital Signs - First Documented 03/19/21 03/19/21 11:20 11:53 Temp 37.4 Pulse 111 Resp 20 B/P (MAP) 140/108 (119) Pulse Ox 92 O2 Delivery Nasal Cannula O2 Flow Rate 3.00 FiO2 92 Capillary Refill : Height, Weight, BMI Height: 5'8.00" Weight: 255lbs. oz. [id number]; 43.62 BMI Method:Stated General Appearance: No Apparent Distress, WD/WN, Obese HEENT: PERRL/EOMI, Pharynx Normal Neck: Non Tender, Supple Respiratory: No Accessory Muscle Use, Crackles (Right base), Rhonci (Right base) Cardiovascular: No Murmur, Irregularly Irregular, Tachycardia Gastrointestinal: Non Tender, Soft Back: Normal Inspection, No CVA Tenderness, No Vertebral Tenderness Extremity: Normal Range of Motion, Non Tender Neurologic/Psychiatric: Alert, Oriented x3 Skin: Normal Color, Warm/Dry Focused Exam Lactate Level 03/19/21 11:55: Lactic Acid Level 2.28*H Lactic Acid Level Laboratory Tests Test 03/19/21 11:55 Lactic Acid Level 2.28 MMOL/L (0.50-2.00) *H Procedures/Interventions Suture Size: 5-0 Progress/Results/Core Measures Suspected Sepsis SIRS Temperature: Pulse: Respiratory Rate: Laboratory Tests 03/19/21 11:55: White Blood Count 17.6H Blood Pressure / Mean: 03/19/21 11:55: Lactic Acid Level 2.28*H Laboratory Tests 03/19/21 11:55: Creatinine 1.05, INR Comment 1.0, Platelet Count 135, Total Bilirubin 1.0 Results/Orders Lab Results Laboratory Tests Test 03/19/21 11:46 03/19/21 11:55 Range/Units SARS-CoV-2 RNA (RT-PCR) Not Detected Not Detecte White Blood Count 17.6 H 4.3-11.0 10^3/uL Red Blood Count 5.32 4.30-5.52 10^6/uL Hemoglobin 15.0 13.3-17.7 g/dL Hematocrit 46 40-54 % Mean Corpuscular Volume 87 80-99 fL Mean Corpuscular Hemoglobin 28 25-34 pg Mean Corpuscular Hemoglobin Concent 32 32-36 g/dL Red Cell Distribution Width 17.6 H 10.0-14.5 % Platelet Count 135 130-400 10^3/uL Mean Platelet Volume 9.0 9.0-12.2 fL Immature Granulocyte % (Auto) 1 % Neutrophils (%) (Auto) 86 H 42-75 % Lymphocytes (%) (Auto) 4 L 12-44 % Monocytes (%) (Auto) 9 0-12 % Eosinophils (%) (Auto) 0 0-10 % Basophils (%) (Auto) 0 0-10 % Neutrophils # (Auto) 15.1 H 1.8-7.8 10^3/uL Lymphocytes # (Auto) 0.6 L 1.0-4.0 10^3/uL Monocytes # (Auto) 1.6 H 0.0-1.0 10^3/uL Eosinophils # (Auto) 0.0 0.0-0.3 10^3/uL Basophils # (Auto) 0.0 0.0-0.1 10^3/uL Immature Granulocyte # (Auto) 0.2 H 0.0-0.1 10^3/uL Neutrophils % (Manual) 94 % Lymphocytes % (Manual) 5 % Monocytes % (Manual) 1 % Blood Morphology Comment NORMAL Prothrombin Time 13.5 12.2-14.7 SEC INR Comment 1.0 0.8-1.4 Activated Partial Thromboplast Time 28 24-35 SEC D-Dimer 0.48 0.00-0.49 UG/ML Sodium Level 140 135-145 MMOL/L Potassium Level 4.0 3.6-5.0 MMOL/L Chloride Level 95 L 98-107 MMOL/L Carbon Dioxide Level 25 21-32 MMOL/L Anion Gap 20 H 5-14 MMOL/L Blood Urea Nitrogen 11 7-18 MG/DL Creatinine 1.05 0.60-1.30 MG/DL Estimat Glomerular Filtration Rate > 60 BUN/Creatinine Ratio 10 Glucose Level 219 H 70-105 MG/DL Lactic Acid Level 2.28 *H 0.50-2.00 MMOL/L Calcium Level 9.5 8.5-10.1 MG/DL Corrected Calcium 9.5 8.5-10.1 MG/DL Total Bilirubin 1.0 0.1-1.0 MG/DL Aspartate Amino Transf (AST/SGOT) 70 H 5-34 U/L Alanine Aminotransferase (ALT/SGPT) 53 0-55 U/L Alkaline Phosphatase 70 40-136 U/L Troponin I 0.051 H <0.028 NG/ML C-Reactive Protein High Sensitivity 22.47 H 0.00-0.50 MG/DL Total Protein 7.3 6.4-8.2 GM/DL Albumin 4.0 3.2-4.5 GM/DL Procalcitonin 0.15 H <0.10 NG/ML Micro Results Microbiology 03/19/21 Influenza Types A,B Antigen (KE) - Final, Complete My Orders Orders - COBY NASCIMENTO MD Lactated Ringers (Lr 1000 Ml Iv Solution (03/19/21 11:24) Ondansetron Injection (Zofran Injectio (03/19/21 11:25) Cbc With Automated Diff (03/19/21 11:47) Comprehensive Metabolic Panel (03/19/21 11:47) Blood Culture (03/19/21 11:47) Sputum Culture (03/19/21 11:47) Urinalysis (03/19/21 11:47) Urine Culture (03/19/21 11:47) Protime With Inr (03/19/21 11:47) Partial Thromboplastin Time (03/19/21 11:47) Chest 1 View, Ap/Pa Only (03/19/21 11:47) Ed Iv/Invasive Line Start (03/19/21 11:47) Ed Iv/Invasive Line Start (03/19/21 11:47) Ekg Tracing (03/19/21 11:47) Troponin I (03/19/21 11:47) Vital Signs Adult Sepsis Patie Q15M (03/19/21 11:47) O2 (03/19/21 11:47) Remove Rings In Anticipation O (03/19/21 11:47) Lactic Acid Analyzer (03/19/21 11:47) Fibrin Degradation Products (03/19/21 11:47) Procalcitonin (Pct) (03/19/21 11:47) Hs C Reactive Protein (03/19/21 11:47) Influenza A And B Antigens (03/19/21 11:47) Covid 19 Inhouse Test (03/19/21 11:47) Ondansetron Injection (Zofran Injectio (03/19/21 12:00) Lactated Ringers (Lr 1000 Ml Iv Solution (03/19/21 11:48) Manual Differential (03/19/21 11:55) Piperacillin Sodium/Tazobactam (Zosyn Vi (03/19/21 13:00) BNP (03/19/21 12:58) Enoxaparin Injection (Lovenox Injection) (03/19/21 13:00) Diltiazem Drip Pre-Mix (Cardizem Drip Pr (03/19/21 13:15) Diltiazem Injection (Cardizem Injection) (03/19/21 13:15) Medications Given in ED Current Medications Medications Dose Ordered Sig/Niyah Route Start Time Stop Time Status Last Admin Dose Admin Ondansetron HCl 8 mg ONCE ONCE IVP 03/19/21 12:00 03/19/21 12:01 DC 03/19/21 12:17 8 MG Piperacillin Sod/ Tazobactam Sod 4.5 gm/Sodium Chloride 100 ml @ 200 mls/hr ONCE ONCE IV 03/19/21 13:00 03/19/21 13:29 03/19/21 13:07 200 MLS/HR Vital Signs/I&O 03/19/21 03/19/21 11:20 11:53 Temp 37.4 Pulse 111 Resp 20 B/P (MAP) 140/108 (119) Pulse Ox 92 O2 Delivery Nasal Cannula Nasal Cannula O2 Flow Rate 3.00 3.00 FiO2 92 Capillary Refill : Progress Note : Progress Note Seen and evaluated. Sepsis protocol initiated as well as COVID-19 evaluation including influenza screening. LR 1 L bolus and Zofran 8 mg IV for persistent nausea and vomiting. Patient's O2 sat was 88% on room air and was initiated on nasal cannula at 3 L/min to increase O2 saturation above 92%. Monitor patient. 1300: Patient does have markedly elevated white count and CRP with slightly elevated procalcitonin and negative Covid and negative influenza screen. Chest x-ray concerning for pneumonia especially on the right. I did discuss the case with Dr. Franklin given his atrial flutter and mild elevation of troponin. He is recommending Lovenox and Cardizem bolus and drip which were ordered. He will see the patient in consult. Patient will require ICU admission. 1303: I did discuss the case with Dr. Jeffries and she accepts patient for admission and she is in the emergency department now and is seeing the patient. We have initiated Zosyn 4.5 g IV and we will continue Zosyn and vancomycin. Patient to be admitted to ICU. We will hold the Metformin and initiate insulin sliding scale given his vomiting and diarrhea. All of the findings and concerns were discussed with the patient and family who agree with the plan. ECG Initial ECG Impression Date: March 19, 2021 Initial ECG Impression Time: 12:07 Initial ECG Rate: 85 Initial ECG Rhythm: A Fib/Flutter Initial ECG Comparisson: Changed Comment Atrial flutter with atrial rate approximately 300 and 3-1 conduction. LVH with left axis deviation. No evidence of ST elevation VA. Change from previous of 02/16/2021 which was sinus rhythm. Interpreted by me. Diagnostic Imaging Diagonstic Imaging: Xray Plain Films/CT/US/NM/MRI: chest Comments NAME: LLUVIA SCHAEFER REC#: [id number] PT STATUS: REG ER : 1965 PHYSICIAN: COBY NASCIMENTO MD ADMIT DATE: 03/19/21/ER Draft Date of Exam:03/19/21 CHEST 1 VIEW, AP/PA ONLY EXAMINATION: Chest 1 view HISTORY: sepsis COMPARISON: Chest radiograph 02/16/2021 FINDINGS: Heart size and pulmonary vasculature are normal. Increasing interstitial opacities within both lungs, greatest within the right lung. No pleural effusion or pneumothorax. Cervical fusion hardware is present. The osseous structures are intact. IMPRESSION: 1. Increasing patchy interstitial opacities throughout both lungs, right greater than left. Findings compatible with pulmonary edema or atypical infection. Dictated on workstation # [id number] Dict: 03/19/21 1243 Trans: 03/19/21 1244 [facility] [id number] Interpreted by: CASSIDY YOUNG DO Electronically signed by: Departure Communication (Admissions) Time/Spoke to Admitting Phy: 13:03 Time/Spoke to Consulting Phy: 13:00 Impression Primary Impression: Pneumonia involving right lung Qualified Codes: J18.9 - Pneumonia, unspecified organism Additional Impressions: Atrial flutter Qualified Codes: I48.92 - Unspecified atrial flutter Vomiting and diarrhea Disposition: ADMITTED INPATIENT Condition: Stable Admissions Decision to Admit Reason: Admit from ER (General) Decision to Admit/Date: March 19, 2021 Time/Decision to Admit Time: 13:00 Departure-Patient Inst. Referrals: [facility] (PCP) Primary Care Physician KUN ESCALANTE (Family) Primary Care Physician COBY NASCIMENTO MD March 19, 2021 12:05
[2021-03-19 12:09] LABS: BASOPHILS % (AUTO) 0 % (0-10); EOSINOPHILS % (AUTO) 0 % (0-10); HEMATOCRIT 46 % (40-54); LYMPHOCYTES # (AUTO) 0.6 10^3/uL (1.0-4.0); LYMPHOCYTES % (AUTO) 4 % (12-44); MEAN CORPUSCULAR HEMOGLOBIN 28 pg (25-34); MEAN CORPUSCULAR HGB CONC 32 g/dL (32-36); MEAN CORPUSCULAR VOLUME 87 fL (80-99); MONOCYTES # (AUTO) 1.6 10^3/uL (0.0-1.0); MONOCYTES % (AUTO) 9 % (0-12); NEUTROPHILS # (AUTO) 15.1 10^3/uL (1.8-7.8); NEUTROPHILS % (AUTO) 86 % (42-75); PLATELET COUNT 135 10^3/uL (130-400); WHITE BLOOD COUNT 17.6 10^3/uL (4.3-11.0)
[2021-03-19 12:23] LABS: CHLORIDE 95 MMOL/L (98-107); SODIUM 140 MMOL/L (135-145)
[2021-03-19 12:24] LABS: CALCIUM 9.5 MG/DL (8.5-10.1)
[2021-03-19 12:25] LABS: GLUCOSE 219 MG/DL (70-105); TOTAL PROTEIN 7.3 GM/DL (6.4-8.2)
[2021-03-19 12:26] LABS: CARBON DIOXIDE 25 MMOL/L (21-32); FIBRIN DEGRADATION PRODUCTS 0.48 UG/ML (0.00-0.49); PROTHROMBIN TIME PATIENT 13.5 SEC (12.2-14.7)
[2021-03-19 12:28] LABS: ALKALINE PHOSPHATASE 70 U/L (40-136)
[2021-03-19 12:29] LABS: CREATININE SERUM 1.05 MG/DL (0.60-1.30); GFR ESTIMATED > 60
[2021-03-19 12:30] LABS: BUN/CREATININE RATIO 10
[2021-03-19 12:32] LABS: ALANINE AMINOTRANSFERASE 53 U/L (0-55)
[2021-03-19 12:34] LABS: LYMPHOCYTES % (MANUAL) 5 %; MONOCYTES % (MANUAL) 1 %; NEUTROPHILS % (MANUAL) 94 %
[2021-03-19 12:35] LABS: RBC MORPH NORMAL
--- NOTE | 2021-03-19 12:45 | Diagnostic Imaging Report ---
EXAMINATION: Chest 1 view HISTORY: sepsis COMPARISON: Chest radiograph 02/16/2021 FINDINGS: Heart size and pulmonary vasculature are normal. Increasing interstitial opacities within both lungs, greatest within the right lung. No pleural effusion or pneumothorax. Cervical fusion hardware is present. The osseous structures are intact. IMPRESSION: 1. Increasing patchy interstitial opacities throughout both lungs, right greater than left. Findings compatible with pulmonary edema or atypical infection. Dictated by: Dictated on workstation # [id number]
[2021-03-19] MEDS ORDERED: ENOXAPARIN 60 MG/0.6 ML (LOVENOX) SYR SC ONE (13:00)
[2021-03-19] MEDS ORDERED: PIPERACILLIN SODIUM/TAZOBACTAM 4.5 GM in NS (IVPB) 100 ML IV ONE (13:00)
[2021-03-19] MEDS: dilTIAZem DRIP PRE-MIX 125 ML IV SCH (13:30)
[2021-03-19] MEDS ORDERED: LACTATED RINGERS 1,000 ML IV SCH (15:30)
[2021-03-19] MEDS ORDERED: VANCOMYCIN INJECTION 0.1 MG in NS (IVPB) 250 ML IV SCH (15:30)
[2021-03-19] MEDS ORDERED: EPINEPHrine 1 MG INJECTION 4 MG in NS (IVPB) 248 ML IV SCH (15:30)
[2021-03-19] MEDS ORDERED: METF-399 PO (15:30)
[2021-03-19] MEDS ORDERED: ONDANSETRON 4 MG/2 ML (SDV) Z0FRAN IVP PRN (15:30)
--- NOTE | 2021-03-19 15:40 | History & Physical-Hospitalist ---
History of Present Illness HPI/Chief Complaint CC: PNA HPI: This is a 55yoWM clinic patient of [facility] known to me from prior IRF stay in 2019 s/p septic shock episode requiring aggressive rehab who now presents to the ER with hypoxia and infiltrates on CXR following two teeth extraction earlier this week. He also just completed left foot wound care with Dr Mock on Sunday. I have reconciled home meds and restarted all of them. Patient will be placed in CSD and Cardiology will be consulted. Source: patient, family, RN/MD, old records Exam Limitations: no limitations Date Seen 03/19/21 Time Seen by a Provider: 13:15 Attending Physician Amanda Jeffries DO [facility] Referring Phys[facility] Date of Admission March 19, 2021 at 13:13 Home Medications & Allergies Home Medications Reviewed patient Home Medication Reconciliation performed by pharmacy medication reconciliations certified ophthalmic medical technician and/or nursing. Patients Allergies have been reviewed. Allergies Allergies Coded Allergies No Known Drug Allergies (Unverified04/23/19) Patient Social History Marrital Status: Employed/Student: unemployed Tobacco Use?: No Smoking Status: Never a Smoker Smokeless Tobacco Frequency: Never a User Use of E-Cig and/or Vaping dev: No E-Cig and/or Vaping Freq: Never a User Substance use?: No Alcohol Use?: No Pt stated abuse/neglect: No Immunizations Up To Date Influenza Vaccine Up-to-Date: No; Not Current Tetanus Booster (TDap): Unknown Hepatitis A: No Hepatitis B: No TB Skin Test: None Date of Pneumonia Vaccine: Aug 17, 2015 Current Status Do you have an Advance Directi: No Communicates: Verbally Primary Language: Israeli Preferred Spoken Language: Israeli Is interpretation needed?: No Implanted or Applied Medical D: None Past Medical History CAD Ischemic cardiomyopathy Bipolar d/o Chronic leg and foot wounds Review of Systems Constitutional: see HPI, malaise, weakness Respiratory: dyspnea on exertion, short of breath, wheezing Physical Exam Physical Exam Vital Signs Vital Signs - First Documented 03/19/21 03/19/21 11:20 11:53 Temp 37.4 Pulse 111 Resp 20 B/P (MAP) 140/108 (119) Pulse Ox 92 O2 Delivery Nasal Cannula O2 Flow Rate 3.00 FiO2 92 Capillary Refill : Greater Than 3 Seconds Height, Weight, BMI Height: 5'8.00" Weight: 255lbs. oz. 115.099646go; 42.84 BMI Method:Stated General Appearance: No Apparent Distress, Chronically ill, Obese Eyes: Right Eye Normal Inspection, Right Eye PERRL HEENT: PERRL/EOMI, Normal ENT Inspection, Pharynx Normal, Moist Mucous Membranes Neck: Full Range of Motion, Normal Inspection, Non Tender Respiratory: Chest Non Tender, No Accessory Muscle Use, No Respiratory Distress, Crackles, Decreased Breath Sounds, Wheezing Cardiovascular: Regular Rate, Rhythm, No Edema, No Gallop, No JVD, No Murmur, Normal Peripheral Pulses Gastrointestinal: Normal Bowel Sounds, No Organomegaly, No Pulsatile Mass, Non Tender, Soft Back: Normal Inspection, No CVA Tenderness, No Vertebral Tenderness Extremity: Normal Capillary Refill, Normal Inspection, Normal Range of Motion, Non Tender, No Calf Tenderness, No Pedal Edema Neurologic/Psychiatric: Alert, Oriented x3, No Motor/Sensory Deficits, Normal Mood/Affect Skin: Normal Color, Warm/Dry Lymphatic: No Adenopathy Results Results/Procedures Labs Laboratory Tests 03/19/21 11:55 Patient resulted labs reviewed. Assessment/Plan Admission Diagnosis Assessment: PNA with acute respiratory insufficiency AF w/RVR History of central spinal cord syndrome resulting in chronic debility and weakness CAD Ischemic cardiomyopathy Chronic wounds on the legs just completed wound care left foot on Sunday Chronic edema Bipolar disorder DAISY on CPAP Plan: IV abx Nebs O2 Home meds Cardiology consultation Admission Status: Inpatient Order (span 2 midnights) Reason for Inpatient Admission: PNA with AF Diagnosis/Problems Diagnosis/Problems (1) Pneumonia involving right lung Status: Acute Qualifiers: Pneumonia type: due to unspecified organism Lung location: lower lobe of lung Qualified Codes: J18.9 - Pneumonia, unspecified organism (2) Atrial flutter Status: Acute Qualifiers: Atrial flutter type: unspecified Qualified Codes: I48.92 - Unspecified atrial flutter (3) Vomiting and diarrhea Status: Acute (4) Sepsis Status: Acute (5) DAISY on CPAP (6) Debility Status: Acute (7) CHF (congestive heart failure) (8) CAD (coronary artery disease) (9) Bipolar disorder AMANDA JEFFRIES DO March 19, 2021 15:40
[2021-03-19] MEDS: NOREPINEPHRINE 8 MG/250 ML 250 ML IV SCH (15:42)
[2021-03-19] MEDS: VASOPRESSIN INJECTION 20 UNIT in NS (IVPB) 100 ML IV SCH (15:42)
[2021-03-19] MEDS ORDERED: NITROGLYCERIN 0.4 MG SL TABS BTL 25'S SL PRN (15:45)
[2021-03-19] MEDS ORDERED: VANCOMYCIN 2000 MG/NS 500 ML IVPB IV NR ×2 (16:00)
[2021-03-19] MEDS: LACTATED RINGERS 1,000 ML IV SCH (16:10)
[2021-03-19] MEDS ORDERED: PROMETHAZINE INJ 25 MG/ML (PHENERGAN) AMP ONE (16:14)
--- NOTE | 2021-03-19 16:25 | Consultation-Cardiology ---
HPI-Cardiology Cardiology Consultation Date of Consultation 03/19/21 Date of Admission Time Seen by Provider: 16:20 Indication: Atrial flutter HPI 55 years old gentleman with history of peripheral arterial disease, questionable history of arrhythmia, has been having shortness of breath, nausea and vomiting and diarrhea. Came into the emergency room after 4 days of progressively worsening. [place] some palpitation. Diagnosed with pneumonia and noted to be in atrial flutter with controlled rate. No chest pain. No syncope or near syncopal episodes. Still having active dyspnea Home Medications & Allergies Allergies: Coded Allergies: No Known Drug Allergies (Unverified , 04/23/19) Home Medication List Reviewed: Yes [id number] Hx Patient Social History Marital Status: Employed/Student: employed Recreational Drug Use: Yes Drug of Choice: MARIJUANA Smoking Status: Never a Smoker Type Used: Pipe 2nd Hand Smoke Exposure: No Recent Hopitalizations: No Have you traveled recently?: No Alcohol Use?: No Immunizations Up To Date Tetanus Booster (TDap): Less than 5yrs Date of Pneumonia Vaccine: Aug 17, 2015 Date of Influenza Vaccine: Aug 18, 2020 Past Medical History Discussed below Family Medical History Family History: Cardiovascular disease G8 SISTER Diabetes mellitus G8 SISTER Review of Systems-General Review of Systems Constitutional: see HPI; No chills, No fever; malaise, weakness EENTM: see HPI, nose congestion; No throat pain Respiratory: see HPI, cough, dyspnea on exertion; No hemoptysis, No orthopnea, No phlegm; short of breath; No stridor; wheezing; No other Cardiovascular: see HPI; No chest pain, No edema; palpitations Gastrointestinal: see HPI; No abdominal pain; diarrhea, nausea, vomiting Genitourinary: no symptoms reported, see HPI Musculoskeletal: no symptoms reported, see HPI Skin: no symptoms reported, see HPI Psychiatric/Neurological: No Symptoms Reported, See HPI All Other Systems Reviewed Negative Unless Noted: Yes Reviewed Test Results Reviewed Test Results Lab Laboratory Tests Test 03/19/21 11:46 03/19/21 11:55 03/19/21 15:04 Range/Units SARS-CoV-2 RNA (RT-PCR) Not Detected Not Detecte White Blood Count 17.6 H 4.3-11.0 10^3/uL Red Blood Count 5.32 4.30-5.52 10^6/uL Hemoglobin 15.0 13.3-17.7 g/dL Hematocrit 46 40-54 % Mean Corpuscular Volume 87 80-99 fL Mean Corpuscular Hemoglobin 28 25-34 pg Mean Corpuscular Hemoglobin Concent 32 32-36 g/dL Red Cell Distribution Width 17.6 H 10.0-14.5 % Platelet Count 135 130-400 10^3/uL Mean Platelet Volume 9.0 9.0-12.2 fL Immature Granulocyte % (Auto) 1 % Neutrophils (%) (Auto) 86 H 42-75 % Lymphocytes (%) (Auto) 4 L 12-44 % Monocytes (%) (Auto) 9 0-12 % Eosinophils (%) (Auto) 0 0-10 % Basophils (%) (Auto) 0 0-10 % Neutrophils # (Auto) 15.1 H 1.8-7.8 10^3/uL Lymphocytes # (Auto) 0.6 L 1.0-4.0 10^3/uL Monocytes # (Auto) 1.6 H 0.0-1.0 10^3/uL Eosinophils # (Auto) 0.0 0.0-0.3 10^3/uL Basophils # (Auto) 0.0 0.0-0.1 10^3/uL Immature Granulocyte # (Auto) 0.2 H 0.0-0.1 10^3/uL Neutrophils % (Manual) 94 % Lymphocytes % (Manual) 5 % Monocytes % (Manual) 1 % Blood Morphology Comment NORMAL Prothrombin Time 13.5 12.2-14.7 SEC INR Comment 1.0 0.8-1.4 Activated Partial Thromboplast Time 28 24-35 SEC D-Dimer 0.48 0.00-0.49 UG/ML Sodium Level 140 135-145 MMOL/L Potassium Level 4.0 3.6-5.0 MMOL/L Chloride Level 95 L 98-107 MMOL/L Carbon Dioxide Level 25 21-32 MMOL/L Anion Gap 20 H 5-14 MMOL/L Blood Urea Nitrogen 11 7-18 MG/DL Creatinine 1.05 0.60-1.30 MG/DL Estimat Glomerular Filtration Rate > 60 BUN/Creatinine Ratio 10 Glucose Level 219 H 70-105 MG/DL Lactic Acid Level 2.28 *H 1.68 0.50-2.00 MMOL/L Calcium Level 9.5 8.5-10.1 MG/DL Corrected Calcium 9.5 8.5-10.1 MG/DL Total Bilirubin 1.0 0.1-1.0 MG/DL Aspartate Amino Transf (AST/SGOT) 70 H 5-34 U/L Alanine Aminotransferase (ALT/SGPT) 53 0-55 U/L Alkaline Phosphatase 70 40-136 U/L Troponin I 0.051 H <0.028 NG/ML C-Reactive Protein High Sensitivity 22.47 H 0.00-0.50 MG/DL B-Type Natriuretic Peptide 267.1 H <100.0 PG/ML Total Protein 7.3 6.4-8.2 GM/DL Albumin 4.0 3.2-4.5 GM/DL Procalcitonin 0.15 H <0.10 NG/ML Physical Exam Physical Exam Vital Signs Vital Signs - First Documented 03/19/21 03/19/21 11:20 11:53 Temp 37.4 Pulse 111 Resp 20 B/P (MAP) 140/108 (119) Pulse Ox 92 O2 Delivery Nasal Cannula O2 Flow Rate 3.00 FiO2 92 Capillary Refill : Greater Than 3 Seconds Height, Weight, BMI Height: 5'8.00" Weight: 255lbs. oz. [id number]; 42.84 BMI Method:Stated General Appearance: No Apparent Distress, WD/WN, Obese HEENT: PERRL/EOMI, Pharynx Normal Neck: Non Tender, Supple Respiratory: No Accessory Muscle Use, Crackles (Right base), Rhonci (Right base) Cardiovascular: No Murmur, Irregularly Irregular, Tachycardia Gastrointestinal: Non Tender, Soft Back: Normal Inspection, No CVA Tenderness, No Vertebral Tenderness Extremity: Normal Range of Motion, Non Tender Neurologic/Psychiatric: Alert, Oriented x3 Skin: Normal Color, Warm/Dry A/P-Cardiology Admission Diagnosis Pneumonia Atrial flutter Hypertension Hyperlipidemia Assessment/Plan Pneumonia, shortness of breath, nausea and vomiting and diarrhea. Started on an tibiotic, IV fluid, managed by primary care team Atrial flutter, had history of arrhythmia in November 2019 while he was [facility] in [facility], probably it was atrial fibrillation, he was maintained on amiodarone and it was discontinued recently. I will continue on Cardizem drip and Lovenox. I am planning to evaluate JEREMIAH and possible cardioversion once he is clinically more stable. Coronary artery disease, history of multiple cardiac catheterization multiple interventions in the past, Cardiac catheterization done February 16, 2021 with severe stenosis in the prox right coronary artery with successful primary stenting using Marcia 3.5 x 18mm overlapping with an old stent in the mid RCA. Patent stent in the LAD, mild coronary artery disease otherwise. Maintained on ASA and Plavix Peripheral arterial disease, Angiogram was done on September 15, 2020 showing total occlusion of the left anterior tibial artery with successful balloon angioplasty with multiple wires and balloons with excellent results. On the right side anterior tibial artery was atretic and very small. The ulcer on his foot is improving. ISABELA continue to be nondiagnostic, TBI was better. ISABELA was done on October 20, 2020 was on the right side 1.34 and left side 1.45. TBI on the right side was 0.5 and on the left side 0.61, good waveforms was noted Congestive heart failure, chronic compensated left ventricular systolic dysfunction, ischemic cardiomyopathy, last echocardiogram was done in January 2021 showing normal LV size, EF 55 to 65%, grade 1 diastolic dysfunction, PA pressure 15 to 20 mmHg. Continue to monitor Status post respiratory failure. Mild elevation in troponin type II myocardial infarction secondary to hypoxemia in December 2019. Currently asymptomatic Hypotension, reporting history of hypotension, Coreg was stopped on March 08, 2021. I will monitor his blood pressure Hyperlipidemia, lipid profile done in September 2020 showing total cholesterol 193, triglyceride 221, HDL 50, LDL 122. Continue to monitor Diabetes mellitus, followed and managed by primary care physician History of C-spine surgery done in November 2019. BMI 41, we discussed weight loss History of bipolar disorder. ALINA GREGG MD March 19, 2021 16:25
[2021-03-19] MEDS ORDERED: PROMETHAZINE INJ 25 MG/ML (PHENERGAN) AMP IM PRN (16:30)
--- NOTE | 2021-03-19 17:14 | CONSULTATION REPORT ---
DATE OF SERVICE: ATTENDING PRIMARY CARE PHYSICIAN: Elizabeth Ramey APRN. ADMITTING PHYSICIAN: Amanda Jeffries DO HISTORY OF PRESENT ILLNESS: The patient is a 55-year-old male with an extensive past medical history. He presented to the Emergency Department with fever, cough, runny nose, shortness of breath, nausea, vomiting as well as diarrhea for the past four days. He states that his symptoms have also worsened over time. He does not report any hematemesis, no coffee ground emesis and also does not report any red blood per rectum nor any dark tarry stools. He does not report any recent travel as well as any change in diet or water drinking source. PAST MEDICAL HISTORY: Atrial fibrillation, cardiomyopathy, bilateral lower extremity edema, coronary artery disease, congestive heart failure, hypercholesterolemia, hypertension, peripheral vascular disease, neuropathy, benign prostatic hypertrophy, neurogenic bladder, chronic constipation, sleep apnea, degenerative joint disease, non-insulin dependent diabetes, bipolar disorder. PAST SURGICAL HISTORY: Right rotator cuff repair, anterior neck surgery 12/01. ALLERGIES: No known drug allergies. MEDICATIONS: Aspirin 81 mg daily, atorvastatin 40 mg daily, cariprazine 1.5 mg daily, carvedilol 3.125 mg b.i.d., Plavix 75 mg daily, dapagliflozin 10 mg daily, diazepam 10 mg each day at bedtime, divalproex 500 mg b.i.d., furosemide 40 mg daily, losartan 25 mg daily, metformin 500 mg b.i.d., nitroglycerin p.r.n., oxycodone p.r.n., Protonix 40 mg daily, potassium 20 mEq daily, prednisone 5 mg b.i.d., pregabalin 150 mg t.i.d., sertraline 100 mg daily, tamsulosin 0.4 mg daily. SOCIAL HISTORY: Positive smoke, 35 pack years. Also uses marijuana regularly. FAMILY HISTORY: Sister, diabetes and cardiovascular disease. VITAL SIGNS: Temperature 37.4, blood pressure 141/99, pulse 74, respirations 20, pulse ox 90% on 6 liters nasal cannula. REVIEW OF SYSTEMS: An obese male, currently does not feel well as secondary to the previously mentioned symptoms. He is having some cough with minimal sputum production. No hemoptysis. He also is having intermittent episodes of nausea, vomiting. No hematemesis, no coffee ground emesis. He also states 4-day history of diarrhea, no red blood per rectum, no dark tarry stools. He may have also had been having fevers at home as well. No recent inadvertent weight loss. All other review of systems negative. PHYSICAL EXAMINATION: CHEST: A few scattered rales and distant breath sounds bilaterally. HEART: Regular, no murmurs. EXTREMITIES: +1/3 bilateral lower extremity edema. Negative Homans sign. HEENT: No scleral icterus. NECK: No cervical lymphadenopathy. ABDOMEN: Soft, nontender, nondistended. No hernias. ASSESSMENT AND PLAN: At this time, we will continue with conservative medical management for now. Due to his extensive past medical history, the differential is broad; however, the diarrhea may be secondary to a chronic ischemic colitis and low flow states. He is currently on broad spectrum antibiotics. The nausea and vomiting may be due to gastritis and he is also being currently treated with Protonix IV daily. He does not recall ever having a colonoscopy and if he does have persistent symptoms of heartburn and reflux, we will proceed with an EGD and biopsy on this admission. There is also the possibility of symptomatic cholelithiasis causing his symptomatology and we will get an ultrasound as well as possible HIDA scan on this admission as well. Job ID: [id number] DocumentID: [id number] Dictated Date: 03/19/2021 16:49:54 Livery Car Driver Date: 03/19/2021 17:14:13 Dictated By: THEO BIRD MD
[2021-03-19] MEDS: PIPERACILLIN/TAZOBACTAM (BULK) 4.5 GM in NS (IVPB) 100 ML IV SCH (18:04)
[2021-03-19 19:10] LABS: CLARITY,URINE CLEAR; COLOR,URINE AMBER; GLUCOSE, URINE (UA) 1+ (NEGATIVE); KETONES,URINE 2+ (NEGATIVE); LEUKOCYTE ESTERASE ,URINE NEGATIVE (NEGATIVE); NITRITE,URINE NEGATIVE (NEGATIVE); PH,URINE 6.5 (5-9); PROTEIN,URINE 3+ (NEGATIVE)
[2021-03-19 19:23] LABS: BACTERIA,URINE TRACE /HPF; BILIRUBIN,URINE 2+ (NEGATIVE); WBC,URINE 0-2 /HPF
[2021-03-19] MEDS ORDERED: inSUlin ASPART (NovoLOG) 1 UNIT/0.01 ML (CHARGE PER UNIT) SC SCH (20:00)
[2021-03-19] MEDS: rOPINIRole 1 MG (REQUIP) TABLET PO SCH (20:59)
[2021-03-19] MEDS: DIVALPROEX 500 MG DELAYED RELEASE (DEPAKOTE) TAB PO SCH (20:59)
[2021-03-19] MEDS: oxyCODONE/APAP 7.5-325 MG (PERCOCET 7.5) TABLET PO PRN (21:00)
[2021-03-19] MEDS: DIAZEPAM 2 MG (VALIUM) TAB PO SCH (21:00)
[2021-03-19] MEDS: PREGABALIN 150 MG (LYRICA) CAPSULE PO SCH (21:00)
[2021-03-19] MEDS: inSUlin ASPART (NovoLOG) 1 UNIT/0.01 ML (CHARGE PER UNIT) SC SCH (21:51)
[2021-03-20] MEDS: VASOPRESSIN INJECTION 20 UNIT in NS (IVPB) 100 ML IV SCH ×3 (00:13→16:50)
[2021-03-20] MEDS: LACTATED RINGERS 1,000 ML IV SCH ×5 (00:13→20:35)
[2021-03-20] MEDS: NOREPINEPHRINE 8 MG/250 ML 250 ML IV SCH ×3 (00:18→22:07)
[2021-03-20] MEDS ORDERED: ENOXAPARIN 300 MG/3 ML (LOVENOX) MULTI-DOSE VIAL SQ SCH (01:00)
[2021-03-20] MEDS: PIPERACILLIN/TAZOBACTAM (BULK) 4.5 GM in NS (IVPB) 100 ML IV SCH ×3 (02:56→18:01)
[2021-03-20 03:32] LABS: BASOPHILS % (AUTO) 0 % (0-10); EOSINOPHILS % (AUTO) 0 % (0-10); HEMATOCRIT 41 % (40-54); HEMOGLOBIN 12.7 g/dL (13.3-17.7); LYMPHOCYTES % (AUTO) 7 % (12-44); MEAN CORPUSCULAR HEMOGLOBIN 28 pg (25-34); MEAN CORPUSCULAR HGB CONC 31 g/dL (32-36); MEAN CORPUSCULAR VOLUME 89 fL (80-99); MEAN PLATELET VOLUME 9.2 fL (9.0-12.2); MONOCYTES # (AUTO) 1.1 10^3/uL (0.0-1.0); MONOCYTES % (AUTO) 8 % (0-12); NEUTROPHILS # (AUTO) 11.4 10^3/uL (1.8-7.8); NEUTROPHILS % (AUTO) 83 % (42-75); PLATELET COUNT 115 10^3/uL (130-400); WHITE BLOOD COUNT 13.6 10^3/uL (4.3-11.0)
[2021-03-20 03:44] LABS: CHLORIDE 101 MMOL/L (98-107); POTASSIUM 3.3 MMOL/L (3.6-5.0); SODIUM 144 MMOL/L (135-145)
[2021-03-20 03:45] LABS: CALCIUM 8.7 MG/DL (8.5-10.1)
[2021-03-20 03:46] LABS: GLUCOSE 178 MG/DL (70-105)
[2021-03-20 03:47] LABS: CARBON DIOXIDE 26 MMOL/L (21-32)
[2021-03-20 03:49] LABS: PHOSPHORUS 3.4 MG/DL (2.3-4.7)
[2021-03-20 03:50] LABS: CREATININE SERUM 0.91 MG/DL (0.60-1.30); GFR ESTIMATED > 60
[2021-03-20 03:51] LABS: BUN/CREATININE RATIO 14
[2021-03-20 03:52] LABS: MAGNESIUM 1.8 MG/DL (1.6-2.4)
[2021-03-20] MEDS: VANCOMYCIN 1500 MG/NS 500 ML IVPB IV SCH ×4 (04:32→15:02)
[2021-03-20] MEDS: MAGNESIUM 1 GM/100 ML IVPB 100 ML IV SCH (06:08)
[2021-03-20] MEDS: KCL 20 MEQ TAB (K-DUR) PO SCH ×3 (06:08→09:30)
[2021-03-20] MEDS: POTASSIUM CL 10MEQ/50ML IVPB 50 ML IV SCH (06:08)
[2021-03-20] MEDS: inSUlin ASPART (NovoLOG) 1 UNIT/0.01 ML (CHARGE PER UNIT) SC SCH ×4 (06:09→20:35)
--- NOTE | 2021-03-20 07:07 | Progress Note - Hospitalist ---
Subjective HPI/CC On Admission Date Seen by Provider: March 20, 2021 Time Seen by Provider: 11:00 CC: PNA HPI: This is a 55yoWM clinic patient of [facility] known to me from prior IRF stay in 2019 s/p septic shock episode requiring aggressive rehab who now presents to the ER with hypoxia and infiltrates on CXR following two teeth extraction earlier this week. He also just completed left foot wound care with Dr Mock on Sunday. I have reconciled home meds and restarted all of them. Patient will be placed in CSD and Cardiology will be consulted. Subjective/Events-last exam Improved status NSR now Amiodarone maintained Lungs are coarse CXR worse IV abx maintained Steroids will be started Review of Systems General: Fatigue Pulmonary: Dyspnea Focused Exam Lactate Level 03/19/21 11:55: Lactic Acid Level 2.28*H 03/19/21 15:04: Lactic Acid Level 1.68 Objective Exam Vital Signs Vital Signs Date Time Temp Pulse Resp B/P (MAP) Pulse Ox O2 Delivery O2 Flow Rate FiO2 03/20/21 16:24 36.4 03/20/21 16:06 93 High Flow N/C 6.00 03/20/21 16:00 70 106/62 (77) 03/19/21 14:40 20 03/19/21 11:53 92 Capillary Refill : Greater Than 3 Seconds General Appearance: No Apparent Distress, WD/WN, Chronically ill Respiratory: Lungs Clear, No Accessory Muscle Use, No Respiratory Distress, Crackles, Decreased Breath Sounds, Wheezing Cardiovascular: Regular Rate, Rhythm Results/Procedures Lab Laboratory Tests 03/20/21 03:15 Patient resulted labs reviewed. Assessment/Plan Assessment and Plan Assess & Plan/Chief Complaint Assessment: PNA with acute respiratory insufficiency AF w/RVR History of central spinal cord syndrome resulting in chronic debility and weakness CAD Ischemic cardiomyopathy Chronic wounds on the legs just completed wound care left foot on Sunday Chronic edema Bipolar disorder DAISY on CPAP Plan: IV abx Nebs O2 Home meds Cardiology consultation 03/20/21: IV abx O2 Nebs Steroids Diagnosis/Problems Diagnosis/Problems (1) Pneumonia involving right lung Status: Acute Qualifiers: Pneumonia type: due to unspecified organism Lung location: lower lobe of lung Qualified Codes: J18.9 - Pneumonia, unspecified organism (2) Atrial flutter Status: Acute Qualifiers: Atrial flutter type: unspecified Qualified Codes: I48.92 - Unspecified atrial flutter (3) Vomiting and diarrhea Status: Acute (4) Sepsis Status: Acute (5) DAISY on CPAP (6) Debility Status: Acute (7) CHF (congestive heart failure) (8) CAD (coronary artery disease) (9) Bipolar disorder MANPREET SPENCER DO March 20, 2021 07:07
[2021-03-20] MEDS: DIVALPROEX 500 MG DELAYED RELEASE (DEPAKOTE) TAB PO SCH ×2 (07:47→20:37)
[2021-03-20] MEDS: oxyCODONE/APAP 7.5-325 MG (PERCOCET 7.5) TABLET PO PRN ×2 (07:47→13:29)
[2021-03-20] MEDS: SERTRALINE 100 MG (ZOLOFT) TAB PO SCH (07:47)
[2021-03-20] MEDS: ASPIRIN 81 MG CHEW (CHILDREN'S ASA) PO SCH (07:47)
[2021-03-20] MEDS: PREGABALIN 150 MG (LYRICA) CAPSULE PO SCH ×3 (07:48→20:37)
[2021-03-20] MEDS: CLOPIDOGREL 75 MG (PLAVIX) TABLET PO SCH (07:48)
[2021-03-20] MEDS: PANTOPRAZOLE 40 MG (PROTONIX) TAB PO SCH (07:48)
[2021-03-20] MEDS: TAMSULOSIN 0.4 MG (FLOMAX) CAP PO SCH (07:48)
--- NOTE | 2021-03-20 08:08 | Diagnostic Imaging Report ---
Indication: Dyspnea. Compared: 03/19/2021 Findings: Patchy airspace disease in the right lung has progressed, presumed pneumonia. There may be some mild infiltrate in the left lung base. There is elevation of left diaphragm, this may be partial atelectasis on the left. Impression: Worsened airspace disease in the right lung, elevated left diaphragm with some basilar opacity probably partial atelectasis on the left Dictated by: Dictated on workstation # [id number]
[2021-03-20] MEDS ORDERED: NON-FORMULARY MEDICATION 1 EA EA (Dapagliflozin Propanediol (Farxiga) 10 MG) PO SCH (09:00)
--- NOTE | 2021-03-20 10:06 | Progress Note ---
Subjective Date Seen by a Provider: March 20, 2021 Time Seen by a Provider: 09:30 Subjective/Events-last exam doing better. no abd pain at this time as well as no nausea/vomiting. u/s just completed. Focused Exam Lactate Level 03/19/21 11:55: Lactic Acid Level 2.28*H 03/19/21 15:04: Lactic Acid Level 1.68 Objective Exam Vital Signs Date Time Temp Pulse Resp B/P (MAP) Pulse Ox O2 Delivery O2 Flow Rate FiO2 03/20/21 09:02 92 High Flow N/C 10.00 03/20/21 09:00 78 119/62 (81) 92 Nasal Cannula 6.00 03/20/21 08:06 93 High Flow N/C 6.00 03/20/21 08:00 77 111/57 (75) 91 Nasal Cannula 6.00 03/20/21 07:30 35.9 03/20/21 07:00 77 03/20/21 07:00 76 100/65 (77) 90 Nasal Cannula 6.00 03/20/21 06:00 80 107/73 (84) 88 Nasal Cannula 6.00 03/20/21 05:00 79 118/77 (91) 91 Nasal Cannula 6.00 03/20/21 04:10 91 High Flow N/C 8.00 03/20/21 04:00 79 109/59 (76) 91 Nasal Cannula 6.00 03/20/21 03:00 73 120/113 (115) 89 Nasal Cannula 6.00 03/20/21 02:00 68 104/70 (81) 94 Nasal Cannula 6.00 03/20/21 01:00 76 95/73 (80) 94 Nasal Cannula 6.00 03/20/21 01:00 72 03/20/21 00:00 91 High Flow N/C 8.00 03/20/21 00:00 67 99/67 (78) 96 Nasal Cannula 6.00 03/19/21 23:00 71 94/62 (73) 96 Nasal Cannula 6.00 03/19/21 22:00 71 91/61 (71) 94 Nasal Cannula 6.00 03/19/21 21:40 36.6 03/19/21 21:15 113/78 (90) 03/19/21 21:00 81 133/101 (112) 92 Nasal Cannula 6.00 03/19/21 20:00 81 140/88 (105) 90 Nasal Cannula 6.00 03/19/21 20:00 91 High Flow N/C 8.00 03/19/21 19:00 92 03/19/21 19:00 73 131/89 (103) 90 Nasal Cannula 6.00 03/19/21 18:00 67 134/78 (96) 93 Nasal Cannula 6.00 03/19/21 17:00 72 131/97 (108) 90 Nasal Cannula 6.00 03/19/21 16:43 Nasal Cannula 4.50 03/19/21 16:35 Nasal Cannula 6.00 03/19/21 16:00 74 141/99 (113) 90 Nasal Cannula 4.00 03/19/21 16:00 36.8 03/19/21 15:48 91 Nasal Cannula 3.00 03/19/21 15:06 74 03/19/21 15:02 95 Nasal Cannula 3.00 03/19/21 15:00 71 107/97 (100) 94 Nasal Cannula 4.00 03/19/21 14:59 36.8 03/19/21 14:40 37.4 111 20 124/109 (119) 92 Nasal Cannula 4.00 03/19/21 11:53 Nasal Cannula 3.00 92 03/19/21 11:20 37.4 111 20 140/108 (119) 92 Nasal Cannula 3.00 I & O 03/20/21 07:00 Intake Total 1870 ml Output Total 975 ml Balance 895 ml Capillary Refill : Greater Than 3 Seconds General Appearance: No Apparent Distress HEENT: PERRL/EOMI Neck: Full Range of Motion Respiratory: Chest Non Tender, Decreased Breath Sounds Cardiovascular: Regular Rate, Rhythm Gastrointestinal: normal bowel sounds, non tender, soft Extremity: Normal Capillary Refill Neurologic/Psychiatric: Alert, Oriented x3 Skin: Normal Color Lymphatic: No Adenopathy Results Lab Laboratory Tests 03/19/21 11:46: SARS-CoV-2 RNA (RT-PCR) Not Detected 03/19/21 11:55: White Blood Count 17.6H, Red Blood Count 5.32, Hemoglobin 15.0, Hematocrit 46, Mean Corpuscular Volume 87, Mean Corpuscular Hemoglobin 28, Mean Corpuscular Hemoglobin Concent 32, Red Cell Distribution Width 17.6H, Platelet Count 135, Mean Platelet Volume 9.0, Immature Granulocyte % (Auto) 1, Neutrophils (%) (Auto) 86H, Lymphocytes (%) (Auto) 4L, Monocytes (%) (Auto) 9, Eosinophils (%) (Auto) 0, Basophils (%) (Auto) 0, Neutrophils # (Auto) 15.1H, Lymphocytes # (Auto) 0.6L, Monocytes # (Auto) 1.6H, Eosinophils # (Auto) 0.0, Basophils # (Auto) 0.0, Immature Granulocyte # (Auto) 0.2H, Neutrophils % (Manual) 94, Lymphocytes % (Manual) 5, Monocytes % (Manual) 1, Blood Morphology Comment NORMAL, Prothrombin Time 13.5, INR Comment 1.0, Activated Partial Thromboplast T humphrey 28, D-Dimer 0.48, Sodium Level 140, Potassium Level 4.0, Chloride Level 95L, Carbon Dioxide Level 25, Anion Gap 20H, Blood Urea Nitrogen 11, Creatinine 1.05, Estimat Glomerular Filtration Rate > 60, BUN/Creatinine Ratio 10, Glucose Level 219H, Lactic Acid Level 2.28*H, Calcium Level 9.5, Corrected Calcium 9.5, Total Bilirubin 1.0, Aspartate Amino Transf (AST/SGOT) 70H, Alanine Aminotransferase (ALT/SGPT) 53, Alkaline Phosphatase 70, Troponin I 0.051H, C-Reactive Protein High Sensitivity 22.47H, B-Type Natriuretic Peptide 267.1H, Total Protein 7.3, Albumin 4.0, Procalcitonin 0.15H 03/19/21 15:04: Lactic Acid Level 1.68 03/19/21 18:24: Urine Color AMBERH, Urine Clarity CLEAR, Urine pH 6.5, Urine Specific [place] 1.025H, Urine Protein 3+H, Urine Glucose (UA) 1+H, Urine Ketones 2+H, Urine Nitrite NEGATIVE, Urine Bilirubin 2+H, Urine Urobilinogen 2.0, Urine Leukocyte Esterase NEGATIVE, Urine RBC (Auto) 3+H, Urine RBC NONE, Urine WBC 0-2, Urine Squamous Epithelial Cells 5-10, Urine Crystals NONE, Urine Bacteria TRACE, Urine Casts NONE, Urine Mucus NEGATIVE, Urine Culture Indicated NO 03/19/21 21:49: Glucometer 200H 03/20/21 03:15: White Blood Count 13.6H, Red Blood Count 4.56, Hemoglobin 12.7L, Hematocrit 41, Mean Corpuscular Volume 89, Mean Corpuscular Hemoglobin 28, Mean Corpuscular Hemoglobin Concent 31L, Red Cell Distribution Width 17.7H, Platelet Count 115L, Mean Platelet Volume 9.2, Immature Granulocyte % (Auto) 1, Neutrophils (%) (Auto) 83H, Lymphocytes (%) (Auto) 7L, Monocytes (%) (Auto) 8, Eosinophils (%) (Auto) 0, Basophils (%) (Auto) 0, Neutrophils # (Auto) 11.4H, Lymphocytes # (Auto) 1.0, Monocytes # (Auto) 1.1H, Eosinophils # (Auto) 0.0, Basophils # (Auto) 0.0, Immature Granulocyte # (Auto) 0.2H, Sodium Level 144, Potassium Level 3.3L, Chloride Level 101, Carbon Dioxide Level 26, Anion Gap 17H, Blood Urea Nitrogen 13, Creatinine 0.91, Estimat Glomerular Filtration Rate > 60, BUN/Creatinine Ratio 14, Glucose Level 178H, Calcium Level 8.7, Phosphorus Level 3.4, Magnesium Level 1.8 03/20/21 09:18: Glucometer 160H Microbiology 03/19/21 MRSA Screen - Final, Complete MRSA not isolated Assessment/Plan Assessment/Plan Assess & Plan/Chief Complaint nausea/vomiting/diarrhea/abd pain. will await u/s report. hx GERD/PUD has not had a colonoscopy in past and will proceed with EGD and colonoscopy when stable IP vs OP THEO BIRD MD March 20, 2021 10:06
--- NOTE | 2021-03-20 10:27 | Cardiology Progress Note ---
Subjective Date Seen by Provider: March 20, 2021 Time Seen by Provider: 10:26 Subjective/Events-last exam Patient is laying down in bed, feeling better, converted back to sinus rhythm. Review of Systems General: No Chills, No Night Sweats, No Fatigue, No Malaise, No Appetite, No Other HEENT: No Head Aches, No Visual Changes, No Eye Pain, No Ear Pain, No Dysphasia, No Sinus Congestion, No Post Nasal Drip, No Sore Throat, No Other Pulmonary: Dyspnea; No Cough, No Pleuritic Chest Pain, No Other Cardiovascular: No: Chest Pain, Palpitations, Orthopnea, Paroxysmal Noc. Dyspnea, Edema, Lt Headedness, Other Focused Exam Lactate Level 03/19/21 11:55: Lactic Acid Level 2.28*H 03/19/21 15:04: Lactic Acid Level 1.68 Objective-Cardiology Exam Last Set of Vital Signs Vital Signs 03/19/21 03/19/21 03/20/21 03/20/21 11:53 14:40 07:30 10:00 Temp 35.9 Pulse 77 Resp 20 B/P (MAP) 114/71 (85) Pulse Ox 91 O2 Delivery Nasal Cannula O2 Flow Rate 6.00 FiO2 92 Capillary Refill : Greater Than 3 Seconds I&O Intake and Output 03/20/21 00:00 Intake Total 1870 ml Output Total 125 ml Balance 1745 ml Intake Oral 250 ml IV Total 1620 ml Output Urine Total 125 ml Daily Weight Change No General: Alert, Oriented X3, Cooperative HEENT: Atraumatic, PERRLA Neck: Supple, No JVD, No Thyromegaly Lungs: Clear to Auscultation, Normal Air Movement Heart: Regular Rate, Normal S1, Normal S2, No Murmurs Abdomen: Normal Bowel Sounds, Soft, No Tenderness, No Hepatosplenomegaly, No Masses Extremities: No Clubbing, No Cyanosis, No Edema, Normal Pulses, No Tenderness/Swelling Skin: No Rashes, No Breakdown, No Significant Lesion Neuro: Normal Gait, Normal Speech, Strength at 5/5 X4 Ext, Normal Tone, Sensation Intact Psych/Mental Status: Mental Status NL, Mood NL Results Lab Laboratory Tests 03/19/21 11:55 03/20/21 03:15 A/P-Cardiology Admission Diagnosis Pneumonia Atrial flutter Hypertension Hyperlipidemia Assessment/Plan Pneumonia, shortness of breath, nausea and vomiting and diarrhea. Started on antibiotic, IV fluid, improving, managed by primary care team Paroxysmal atrial flutter, had history of arrhythmia in November 2019 while in [facility] and was started on amiodarone which was stopped recently. Admitted with atrial flutter and converted to sinus rhythm on Cardizem drip, currently off Cardizem, continue on Lovenox. I will start him on amiodarone bolus and a drip. Will require evaluation for ablation for atrial flutter as an outpatient [id number] score of 3, yearly risk of stroke without oral anticoagulation at 3.2%, starting on Eliquis Coronary artery disease, history of multiple cardiac catheterization multiple interventions in the past, Cardiac catheterization done February 16, 2021 with severe stenosis in the prox right coronary artery with successful primary stenting using Marcia 3.5 x 18mm overlapping with an old stent in the mid RCA. Patent stent in the LAD, mild coronary artery disease otherwise. Maintained on ASA and Plavix Peripheral arterial disease, Angiogram was done on September 15, 2020 showing total occlusion of the left anterior tibial artery with successful balloon angioplasty with multiple wires and balloons with excellent results. On the right side anterior tibial artery was atretic and very small. The ulcer on his foot is improving. ISABELA continue to be nondiagnostic, TBI was better. ISABELA was done on October 20, 2020 was on the right side 1.34 and left side 1.45. TBI on the right side was 0.5 and on the left side 0.61, good waveforms was noted Congestive heart failure, chronic compensated left ventricular systolic dysfunction, ischemic cardiomyopathy, last echocardiogram was done in January 2021 showing normal LV size, EF 55 to 65%, grade 1 diastolic dysfunction, PA pressure 15 to 20 mmHg. Continue to monitor Status post respiratory failure. Mild elevation in troponin type II myocardial infarction secondary to hypoxemia in December 2019. Currently asymptomatic Hypotension, reporting history of hypotension, Coreg was stopped on March 08, 2021. I will monitor his blood pressure Hyperlipidemia, lipid profile done in September 2020 showing total cholesterol 193, triglyceride 221, HDL 50, LDL 122. Continue to monitor Diabetes mellitus, followed and managed by primary care physician History of C-spine surgery done in November 2019. BMI 41, we discussed weight loss History of bipolar disorder. ALINA GREGG MD March 20, 2021 10:27 am
--- NOTE | 2021-03-20 11:09 | Diagnostic Imaging Report ---
PROCEDURE: US Abdomen, limited. TECHNIQUE: Multiple realtime grayscale images were obtained over the abdomen in various projections. INDICATION: Pain. FINDINGS: The liver is mildly echodense, mild steatosis suspected. The gallbladder appeared normal. The unobstructed right kidney normal. The pancreas, aorta and IVC largely obscured by bowel gas. No intra or extrahepatic bile duct dilatation. The portal vein is in the normal hepatopetal direction. IMPRESSION: Probable mild fatty infiltration of the liver, no biliary abnormality, no ascites, no acute pathology evident. Dictated by: Dictated on workstation # [id number]
[2021-03-20] MEDS ORDERED: methylPREDNISolone 40 MG/ML (Solu-MEDROL) VIAL ONE (11:28)
[2021-03-20] MEDS ORDERED: PATIENT MAY USE OWN MEDS, ALL MC SCH (11:30)
[2021-03-20] MEDS ORDERED: RT-ALBUTEROL/IPRATROPIUM 3 ML (DUONEB) VIAL INH ONE (11:30)
[2021-03-20] MEDS: methylPREDNISolone 40 MG/ML (Solu-MEDROL) VIAL IV SCH ×2 (11:38→20:35)
[2021-03-20] MEDS: AMIODARONE INJECTION 450 MG in D5W IV SOLUTION (EXCEL) 250 ML IV SCH ×2 (11:40→19:32)
[2021-03-20] MEDS ORDERED: AMIODARONE INJECTION 150 MG in D5W 100 ML IVPB 100 ML IV NR (12:00)
[2021-03-20] MEDS: [UNRECOGNIZED DRUG - REMARK] PO SCH (12:16)
[2021-03-20] MEDS: dilTIAZem DRIP PRE-MIX 125 ML IV SCH (13:27)
[2021-03-20] MEDS: RT-ALBUTEROL/IPRATROPIUM 3 ML (DUONEB) VIAL INH SCH ×3 (13:45→22:03)
[2021-03-20] MEDS: rOPINIRole 1 MG (REQUIP) TABLET PO SCH (20:36)
[2021-03-20] MEDS: DIAZEPAM 2 MG (VALIUM) TAB PO SCH (20:37)
[2021-03-20] MEDS: APIXABAN 5 MG (ELIQUIS) TABLET PO SCH (20:37)
[2021-03-21] MEDS: VASOPRESSIN INJECTION 20 UNIT in NS (IVPB) 100 ML IV SCH (01:09)
[2021-03-21] MEDS: RT-ALBUTEROL/IPRATROPIUM 3 ML (DUONEB) VIAL INH SCH ×6 (01:32→21:24)
[2021-03-21 02:11] LABS: BASOPHILS % (AUTO) 0 % (0-10); EOSINOPHILS % (AUTO) 0 % (0-10); HEMATOCRIT 35 % (40-54); HEMOGLOBIN 10.9 g/dL (13.3-17.7); LYMPHOCYTES # (AUTO) 0.4 10^3/uL (1.0-4.0); LYMPHOCYTES % (AUTO) 4 % (12-44); MEAN CORPUSCULAR HEMOGLOBIN 28 pg (25-34); MEAN CORPUSCULAR HGB CONC 31 g/dL (32-36); MEAN CORPUSCULAR VOLUME 91 fL (80-99); MEAN PLATELET VOLUME 8.8 fL (9.0-12.2); MONOCYTES # (AUTO) 0.4 10^3/uL (0.0-1.0); MONOCYTES % (AUTO) 4 % (0-12); NEUTROPHILS # (AUTO) 8.5 10^3/uL (1.8-7.8); NEUTROPHILS % (AUTO) 91 % (42-75); PLATELET COUNT 94 10^3/uL (130-400); WHITE BLOOD COUNT 9.4 10^3/uL (4.3-11.0)
[2021-03-21 02:25] LABS: CHLORIDE 101 MMOL/L (98-107); POTASSIUM 3.7 MMOL/L (3.6-5.0); SODIUM 142 MMOL/L (135-145)
[2021-03-21 02:26] LABS: CALCIUM 8.4 MG/DL (8.5-10.1)
[2021-03-21 02:27] LABS: GLUCOSE 260 MG/DL (70-105)
[2021-03-21 02:28] LABS: CARBON DIOXIDE 25 MMOL/L (21-32)
[2021-03-21 02:30] LABS: PHOSPHORUS 3.1 MG/DL (2.3-4.7)
[2021-03-21 02:31] LABS: BUN/CREATININE RATIO 16; CREATININE SERUM 0.96 MG/DL (0.60-1.30); GFR ESTIMATED > 60
[2021-03-21 02:33] LABS: MAGNESIUM 1.9 MG/DL (1.6-2.4)
[2021-03-21] MEDS: VANCOMYCIN 1500 MG/NS 500 ML IVPB IV SCH ×2 (03:49)
[2021-03-21] MEDS: PIPERACILLIN/TAZOBACTAM (BULK) 4.5 GM in NS (IVPB) 100 ML IV SCH ×3 (03:49→18:09)
[2021-03-21] MEDS: LACTATED RINGERS 1,000 ML IV SCH (03:49)
--- NOTE | 2021-03-21 04:14 | Pulmonary Consultation ---
VENECIA BLANDON MED STUDENT 03/21/21 0414: History of Present Illness History of Present Illness Date Seen by Provider: March 21, 2021 Time Seen by Provider: 04:13 Date of Admission Reason for Visit: Atrial flutter History of Present Illness Patient presented to the ED with complaints of fever, cough, shortness of breath, nausea, vomiting, and diarrhea for 3-4 days. He states that these symptoms began after having several teeth extracted earlier in the week as well as after having his dose of metformin increased. He states that he became increasingly SOB and that prompted him to present. He says he was currently tested for COVID and it was found to be negative. Currently he denies SOB, chest pain, fevers, chills, headache, blurry vision, nausea, and abdominal pain. Allergies and Home Medications Allergies Coded Allergies: No Known Drug Allergies (Unverified , 04/23/19) Home Medications Aspirin 81 Mg Tab.chew, 81 MG PO DAILY, (Reported) Atorvastatin Calcium 40 Mg Tablet, 40 MG PO DAILY, (Reported) Cariprazine Hydrochloride 1.5 Mg Capsule, 1.5 MG PO DAILY, (Reported) Clopidogrel Bisulfate 75 Mg Tablet, 0 MG PO DAILY Prescribed by: ALINA GREGG on 02/17/21 0500 Dapagliflozin Propanediol 10 Mg Tablet, 10 MG PO DAILY, (Reported) Diazepam 2 Mg Tablet, 1 MG PO HS, (Reported) Divalproex Sodium 500 Mg Tablet.dr, 500 MG PO BID, (Reported) Furosemide 40 Mg Tablet, 40 MG PO DAILY, (Reported) Losartan Potassium 25 Mg Tablet, 25 MG PO DAILY, (Reported) Metformin HCl 1,000 Mg Tablet, 1,000 MG PO BID, (Reported) Nitroglycerin 0.4 Mg Tab.subl, 0.4 MG SL UD PRN for CHEST PAIN, (Reported) DISSOLVE ONE TABLET UNDER THE TONGUE EVERY 5 MINUTES NEEDED FOR CHEST PAIN. DO NOT EXCEED A TOTAL OF 3 DOSES IN 15 MINUTES Oxycodone HCl/Acetaminophen 1 Each Tablet, 1 TAB PO TID PRN for PAIN-MODERATE, (Reported) Pantoprazole Sodium 40 Mg Tablet.dr, 40 MG PO DAILY, (Reported) Potassium Chloride 20 Meq Tablet.er, 20 MEQ PO DAILY, (Reported) Pregabalin 150 Mg Capsule, 150 MG PO TID, (Reported) Sertraline HCl 100 Mg Tablet, 100 MG PO DAILY, (Reported) Tamsulosin HCl 0.4 Mg Cap, 0.4 MG PO DAILY, (Reported) Past Umpelcc-Bbbhak-Bzxxia Hx Past Med/Social Hx: Reviewed Nursing Past Med/Soc Hx Patient Social History Alcohol Use: Denies Use Drug of Choice: MARIJUANA Smoking Status: Never a Smoker Type Used: Pipe 2nd Hand Smoke Exposure: No Recent Infectious Disease Expo: No Recent Hopitalizations: No Have you traveled recently?: No Alcohol Use?: No Immunizations Up To Date Tetanus Booster (TDap): Less than 5yrs Date of Pneumonia Vaccine: Aug 17, 2015 Date of Influenza Vaccine: Aug 18, 2020 Seasonal Allergies Seasonal Allergies: No Past Medical History Surgeries: Yes (RIGHT ROTATOR CUFF) Coronary Stent, Orthopedic Respiratory: Yes Sleep Apnea Currently Using CPAP: Yes Currently Using BIPAP: No Cardiac: Yes Atrial Fibrillation, Cardiomyopathy, Chronic Edema/Swelling, Coronary Artery Disease, Congenital Heart Disease, High Cholesterol, Hypertension, Peripheral Vascular Neurological: Yes Neuropathy, Paralysis Genitourinary: Yes Benign Prostatic Hyperpl, Prostate Problems, Neurogenic Bladder Gastrointestinal: No Chronic Constipation Musculoskeletal: Yes (neck/back injury 1999 recent anterior neck surgery on 12/11/19) Degenerate Disk Disease, Chronic Back Pain Endocrine: Yes Diabetes, Non-Insulin dep HEENT: No Cancer: No Psychosocial: Yes Anxiety, Bipolar, Depression Integumentary: No Blood Disorders: No Adverse Reaction/Blood Tranf: No Family Medical History Reviewed Nursing Family Hx Cardiovascular disease G8 SISTER Diabetes mellitus G8 SISTER Review of Systems Constitutional: No: Fever, Chills Eyes: No: Vision change, Redness ENT: Mouth pain (mild pain s/p tooth extraction recently); No: Ear pain, Nose pain Respiratory: Cough, SOB with excertion; No: Shortness of breath, Sputum Cardiovascular: No: Chest Pain, Palpitations Gastrointestinal: No: Nausea, Vomiting, Abdominal Pain Genitourinary: No Dysuria, No Frequency; Retention Musculoskeletal: No: neck pain, back pain Skin: No: Jaundice, Bruising Neurological: Weakness; No: Change in speech, Confusion Sepsis Event Evaluation Height, Weight, BMI Height: 5'8.00" Weight: 255lbs. oz. 115.517665nr; 42.84 BMI Method:Stated Exam Exam Vital Signs Date Time Temp Pulse Resp B/P (MAP) Pulse Ox O2 Delivery O2 Flow Rate FiO2 03/21/21 02:30 Vapotherm 40.00 80.00 03/21/21 02:15 91 Vapotherm 40.00 80 03/21/21 01:32 90 OxyMask 13.00 03/21/21 01:00 63 03/21/21 01:00 63 103/66 (78) 93 OxyMask 13.00 03/21/21 00:00 61 104/66 (79) 93 OxyMask 13.00 03/21/21 00:00 90 OxyMask 13.00 03/20/21 23:00 65 103/63 (76) 92 OxyMask 13.00 03/20/21 22:14 OxyMask 13.00 03/20/21 22:03 93 OxyMask 13.00 03/20/21 22:00 66 100/62 (75) 93 OxyMask 15.00 03/20/21 21:10 69 91 OxyMask 15.00 03/20/21 21:00 70 115/77 (90) 90 Nasal Cannula 6.00 03/20/21 20:28 36.6 03/20/21 20:00 91 High Flow N/C 6.00 03/20/21 20:00 66 90/52 (65) 91 Nasal Cannula 6.00 03/20/21 19:00 71 03/20/21 19:00 71 98/62 (74) 88 Nasal Cannula 6.00 03/20/21 18:26 92 High Flow N/C 6.00 03/20/21 18:00 68 94/56 (69) 91 Nasal Cannula 6.00 03/20/21 17:00 72 90/43 (59) 93 Nasal Cannula 6.00 03/20/21 16:24 36.4 03/20/21 16:06 93 High Flow N/C 6.00 03/20/21 16:00 70 106/62 (77) 92 Nasal Cannula 6.00 03/20/21 15:00 73 101/61 (74) 92 Nasal Cannula 6.00 03/20/21 14:00 79 99/57 (71) 90 Nasal Cannula 6.00 03/20/21 13:45 92 High Flow N/C 10.00 03/20/21 13:00 77 97/61 (73) 90 Nasal Cannula 6.00 03/20/21 12:34 77 03/20/21 12:00 77 106/56 (73) 94 Nasal Cannula 6.00 03/20/21 12:00 36.4 03/20/21 12:00 93 High Flow N/C 6.00 03/20/21 11:54 95 High Flow N/C 10.00 03/20/21 11:00 76 116/61 (79) 92 Nasal Cannula 6.00 03/20/21 10:00 77 114/71 (85) 91 Nasal Cannula 6.00 03/20/21 09:02 92 High Flow N/C 10.00 03/20/21 09:00 78 119/62 (81) 92 Nasal Cannula 6.00 03/20/21 08:06 93 High Flow N/C 6.00 03/20/21 08:00 77 111/57 (75) 91 Nasal Cannula 6.00 03/20/21 07:30 35.9 03/20/21 07:00 77 03/20/21 07:00 76 100/65 (77) 90 Nasal Cannula 6.00 03/20/21 06:00 80 107/73 (84) 88 Nasal Cannula 6.00 03/20/21 05:00 79 118/77 (91) 91 Nasal Cannula 6.00 I & O 03/21/21 07:00 Intake Total 5212 ml Output Total 775 ml Balance 4437 ml Height & Weight Height: 5'8.00" Weight: 255lbs. oz. 115.937263ku; 42.84 BMI Method:Stated General Appearance: No Apparent Distress, WD/WN, Chronically ill, Obese HEENT: PERRL/EOMI Neck: Full Range of Motion, Non Tender Respiratory: Chest Non Tender, No Accessory Muscle Use, No Respiratory Distress, Decreased Breath Sounds Cardiovascular: Regular Rate, Rhythm, Normal Peripheral Pulses Capillary Refill: Greater Than 3 Seconds Peripheral Pulses: 1+ Dorsalis Pedis (R), 1+ Left Dors-Pedis (L); 2+ Radial Pulses (R), 2+ Radial Pulses (L) Gastrointestinal: normal bowel sounds, non tender, soft; No guarding, No rebound, No tenderness Extremity: Normal Capillary Refill, No Calf Tenderness Neurologic/Psychiatric: Alert, Oriented x3, Normal Mood/Affect Skin: Normal Color Lymphatic: No Adenopathy Results Lab Laboratory Tests 03/19/21 11:55 03/20/21 03:15 03/21/21 02:00 Assessment/Plan Assessment/Plan PNA with acute respiratory insufficiency -Continue vancomycin and Zosyn -Continue solumedrol 40 IV Q12 -Continue vaportherm, wean as tolerated AF w/RVR -Cardiology following -Amioadarone gtt, converted to SR at 0300 this AM Nausea, vomiting, and diarrhea -Continue IVF and antiemetics PRN History of central spinal cord syndrome resulting in chronic debility and weakness -Consider PT and OT consult DAISY Diabetes mellitus -Continue SSI, maintain tight control of blood glucoses Bipolar disorder -Continue depakote GI Prophylaxis -Continue protonix Anticoagulation -EDGARDO Sullivan DO 03/21/21 0543: Allergies and Home Medications Allergies Coded Allergies: No Known Drug Allergies (Unverified , 04/23/19) Home Medications Aspirin 81 Mg Tab.chew, 81 MG PO DAILY, (Reported) Atorvastatin Calcium 40 Mg Tablet, 40 MG PO DAILY, (Reported) Cariprazine Hydrochloride 1.5 Mg Capsule, 1.5 MG PO DAILY, (Reported) Clopidogrel Bisulfate 75 Mg Tablet, 0 MG PO DAILY Prescribed by: ALINA GREGG on 02/17/21 0500 Dapagliflozin Propanediol 10 Mg Tablet, 10 MG PO DAILY, (Reported) Diazepam 2 Mg Tablet, 1 MG PO HS, (Reported) Divalproex Sodium 500 Mg Tablet.dr, 500 MG PO BID, (Reported) Furosemide 40 Mg Tablet, 40 MG PO DAILY, (Reported) Losartan Potassium 25 Mg Tablet, 25 MG PO DAILY, (Reported) Metformin HCl 1,000 Mg Tablet, 1,000 MG PO BID, (Reported) Nitroglycerin 0.4 Mg Tab.subl, 0.4 MG SL UD PRN for CHEST PAIN, (Reported) DISSOLVE ONE TABLET UNDER THE TONGUE EVERY 5 MINUTES NEEDED FOR CHEST PAIN. DO NOT EXCEED A TOTAL OF 3 DOSES IN 15 MINUTES Oxycodone HCl/Acetaminophen 1 Each Tablet, 1 TAB PO TID PRN for PAIN-MODERATE, (Reported) Pantoprazole Sodium 40 Mg Tablet.dr, 40 MG PO DAILY, (Reported) Potassium Chloride 20 Meq Tablet.er, 20 MEQ PO DAILY, (Reported) Pregabalin 150 Mg Capsule, 150 MG PO TID, (Reported) Sertraline HCl 100 Mg Tablet, 100 MG PO DAILY, (Reported) Tamsulosin HCl 0.4 Mg Cap, 0.4 MG PO DAILY, (Reported) Past Ahltsby-Mlgjjm-Nrysiw Hx Family Medical History Cardiovascular disease G8 SISTER Diabetes mellitus G8 SISTER Review of Systems Time Seen by Provider: 06:14 Assessment/Plan Assessment/Plan PNA with acute respiratory insufficiency -Continue vancomycin and Zosyn -Continue solumedrol 40 IV Q12 -Continue vaportherm, wean as tolerated -Check ABG AF w/RVR -Cardiology following -Amioadarone gtt, converted to SR at 0300 this AM\\ Pulmonary edema -CXR reviewed and pt is requiring 80% Vapotherm -Give bumex x 1 -Decrease IVF Nausea, vomiting, and diarrhea -antiemetics PRN History of central spinal cord syndrome resulting in chronic debility and weakness -Consider PT and OT consult DAISY Diabetes mellitus -Continue SSI, maintain tight control of blood glucoses Bipolar disorder -Continue depakote GI Prophylaxis -Continue protonix Anticoagulation -Eliquis Supervisory-Addendum Brief Verification & Attestation Participated in pt care: history, MDM, physical Personally performed: exam, history, supervision of care Care discussed with: Medical Student Procedures: n/a Results interpretation: Verified all documentation Verification and Attestation of Medical Student E/M Service A medical student performed and documented this service in my presence. I reviewed and verified all information documented by the medical student and made modifications to such information, when appropriate. I personally performed the physical exam and medical decision making. Edgardo Rodriguez, March 21, 2021,06:14 VENECIA BLANDON MED STUDENT March 21, 2021 04:14 EDGARDO RODRIGUEZ DO March 21, 2021 05:43
[2021-03-21] MEDS ORDERED: BUMETANIDE 1 MG/4 ML (BUMEX) VIAL IV ONE ×2 (04:45→06:00)
[2021-03-21] MEDS: POTASSIUM CL 10MEQ/50ML IVPB 50 ML IV SCH (05:41)
[2021-03-21] MEDS: KCL 20 MEQ TAB (K-DUR) PO SCH (05:42)
[2021-03-21] MEDS: MAGNESIUM 1 GM/100 ML IVPB 100 ML IV SCH (05:42)
[2021-03-21] MEDS: inSUlin ASPART (NovoLOG) 1 UNIT/0.01 ML (CHARGE PER UNIT) SC SCH ×4 (06:31→21:09)
[2021-03-21 06:43] LABS: ABG BASE EXCESS 7.1 MMOL/L (-2.5-2.5); ABG OXYGEN SATURATION 88 % (94-100); ABG PCO2 51 MMHG (35-45); ABG PH 7.41 (7.37-7.43); ABG PO2 52 MMHG (79-93); ABG TCO2 33.4 MMOL/L (21.0-31.0)
[2021-03-21 06:47] LABS: ALLENS TEST YES-POS; INSPIRED O2 40L; PATIENT TEMP 36.5; VENTILATOR NO
[2021-03-21] MEDS ORDERED: KCL 20 MEQ TAB (K-DUR) PO ONE (08:00)
[2021-03-21] MEDS ORDERED: RT-ALBUTEROL/IPRATROPIUM 3 ML (DUONEB) VIAL INH PRN (08:00)
--- NOTE | 2021-03-21 08:00 | Diagnostic Imaging Report ---
INDICATION: Dyspnea Portable AP view of the chest is obtained. Since study one day earlier there is continued linear atelectasis in left lung base. There is airspace disease throughout the right lung with apparent increase in right pleural fluid. IMPRESSION: Diffuse infiltrate and/or edema in the right lung with mild right pleural fluid. There is continued linear atelectasis in the left lung base. Dictated by: Dictated on workstation # [id number]
[2021-03-21] MEDS: methylPREDNISolone 40 MG/ML (Solu-MEDROL) VIAL IV SCH ×2 (08:38→21:09)
[2021-03-21] MEDS: CLOPIDOGREL 75 MG (PLAVIX) TABLET PO SCH (08:39)
[2021-03-21] MEDS: APIXABAN 5 MG (ELIQUIS) TABLET PO SCH ×2 (08:39→21:09)
[2021-03-21] MEDS: DIVALPROEX 500 MG DELAYED RELEASE (DEPAKOTE) TAB PO SCH ×2 (08:39→21:10)
[2021-03-21] MEDS: ASPIRIN 81 MG CHEW (CHILDREN'S ASA) PO SCH (08:39)
[2021-03-21] MEDS: TAMSULOSIN 0.4 MG (FLOMAX) CAP PO SCH (08:39)
[2021-03-21] MEDS: [UNRECOGNIZED DRUG - REMARK] PO SCH (08:39)
[2021-03-21] MEDS: PREGABALIN 150 MG (LYRICA) CAPSULE PO SCH ×3 (08:39→21:10)
[2021-03-21] MEDS: PANTOPRAZOLE 40 MG (PROTONIX) TAB PO SCH (08:39)
[2021-03-21] MEDS: SERTRALINE 100 MG (ZOLOFT) TAB PO SCH (08:39)
--- NOTE | 2021-03-21 10:46 | Cardiology Progress Note ---
Subjective Date Seen by Provider: March 21, 2021 Time Seen by Provider: 10:44 Subjective/Events-last exam Patient sitting up in bed, currently on vapotherm. Denies any chest pain Review of Systems General: No Chills, No Night Sweats, No Fatigue, No Malaise, No Appetite, No Other HEENT: No Head Aches, No Visual Changes, No Eye Pain, No Ear Pain, No Dysphasia, No Sinus Congestion, No Post Nasal Drip, No Sore Throat, No Other Pulmonary: No Dyspnea, No Cough, No Pleuritic Chest Pain, No Other Cardiovascular: No: Chest Pain, Palpitations, Orthopnea, Paroxysmal Noc. Dyspnea, Edema, Lt Headedness, Other Focused Exam Lactate Level 03/19/21 11:55: Lactic Acid Level 2.28*H 03/19/21 15:04: Lactic Acid Level 1.68 Objective-Cardiology Exam Last Set of Vital Signs Vital Signs 03/21/21 03/21/21 03/21/21 03/21/21 07:00 10:00 10:58 11:27 Temp 36.6 Pulse 72 Resp 5 B/P (MAP) 130/88 (102) Pulse Ox 95 O2 Delivery Vapotherm O2 Flow Rate 40.00 FiO2 80 Capillary Refill : Greater Than 3 Seconds I&O Intake and Output 03/21/21 00:00 Intake Total 4842 ml Output Total 1625 ml Balance 3217 ml Intake Oral 1090 ml IV Total 3752 ml Output Urine Total 1625 ml General: Alert, Oriented X3, Cooperative HEENT: Atraumatic, PERRLA Neck: Supple, No JVD, No Thyromegaly Lungs: Other (bilateral rhonchi) Heart: Regular Rate, Normal S1, Normal S2, No Murmurs Abdomen: Normal Bowel Sounds, Soft, No Tenderness, No Hepatosplenomegaly, No Masses Extremities: No Clubbing, No Cyanosis, No Edema, Normal Pulses, No Tenderness/Swelling Skin: No Rashes, No Breakdown, No Significant Lesion Neuro: Normal Gait, Normal Speech, Strength at 5/5 X4 Ext, Normal Tone, Sensation Intact Psych/Mental Status: Mental Status NL, Mood NL Results Lab Laboratory Tests 03/21/21 02:00 A/P-Cardiology Admission Diagnosis Pneumonia Atrial flutter Hypertension Hyperlipidemia Assessment/Plan Pneumonia, shortness of breath, nausea and vomiting and diarrhea. Started on antibiotic, IV fluid, managed by primary care team, going for CTA chest later today. Paroxysmal atrial flutter, had history of arrhythmia in November 2019 while in [facility] and was started on amiodarone which was stopped recently. Admitted with atrial flutter and converted to sinus rhythm on Cardizem drip, currently off Cardizem, on Amiodarone, Eliquis, currently in SR. Will require evaluation for ablation for atrial flutter as an outpatient [id number] score of 3, yearly risk of stroke without oral anticoagulation at 3.2%, starting on Eliquis Coronary artery disease, history of multiple cardiac catheterization multiple interventions in the past, Cardiac catheterization done February 16, 2021 with severe stenosis in the prox right coronary artery with successful primary stenting using Marcia 3.5 x 18mm overlapping with an old stent in the mid RCA. Patent stent in the LAD, mild coronary artery disease otherwise. Maintained on ASA and Plavix Peripheral arterial disease, Angiogram was done on September 15, 2020 showing total occlusion of the left anterior tibial artery with successful balloon angioplasty with multiple wires and balloons with excellent results. On the right side anterior tibial artery was atretic and very small. The ulcer on his foot is improving. ISABELA continue to be nondiagnostic, TBI was better. ISABELA was done on October 20, 2020 was on the right side 1.34 and left side 1.45. TBI on the right side was 0.5 and on the left side 0.61, good waveforms was noted Congestive heart failure, chronic compensated left ventricular systolic dysfunction, ischemic cardiomyopathy, last echocardiogram was done in January 2021 showing normal LV size, EF 55 to 65%, grade 1 diastolic dysfunction, PA pressure 15 to 20 mmHg. Continue to monitor Status post respiratory failure. Mild elevation in troponin type II myocardial infarction secondary to hypoxemia in December 2019. Currently asymptomatic Hypotension, reporting history of hypotension, Coreg was stopped on March 08, 2021. I will monitor his blood pressure Hyperlipidemia, lipid profile done in September 2020 showing total cholesterol 193, triglyceride 221, HDL 50, LDL 122. Continue to monitor Diabetes mellitus, followed and managed by primary care physician History of C-spine surgery done in November 2019. BMI 41, we discussed weight loss History of bipolar disorder. Patient was seen and evaluated with Viola, seen at bedside, laying down comfortably Still in respiratory failure, maintained on Vapotherm 80% Still in sinus rhythm, currently maintained on amiodarone and off Cardizem drkuldeep Discussed the possibility of referral as an outpatient for EP evaluation and ablation for atrial flutter Cardiac status at this time is considered stable. Continue to monitor. Continue with amiodarone. VIOLA NGO March 21, 2021 10:46 am ALINA GREGG MD March 21, 2021 11:41 am
--- NOTE | 2021-03-21 11:51 | Progress Note ---
Subjective Subjective/Events-last exam O/N Events: Patient now requiring vapotherm 40 FiO2 80%. He states that he feels fine and does not feel short of breath at this time. Denies any chest pain. Tolerating PO diet. Review of Systems General: Malaise Pulmonary: No Dyspnea; Cough Cardiovascular: No: Chest Pain, Palpitations Gastrointestinal: Diarrhea; No: Nausea, Vomiting Genitourinary: Frequency Neurological: Weakness; No: Change in speech, Confusion Focused Exam Lactate Level 03/19/21 11:55: Lactic Acid Level 2.28*H 03/19/21 15:04: Lactic Acid Level 1.68 Objective Exam Last Set of Vital Signs Vital Signs Date Time Temp Pulse Resp B/P (MAP) Pulse Ox O2 Delivery O2 Flow Rate FiO2 03/21/21 11:27 36.6 03/21/21 10:58 95 Vapotherm 40.00 80 03/21/21 10:00 72 130/88 (102) 03/21/21 07:00 5 Capillary Refill : Greater Than 3 Seconds I&O Intake and Output 03/21/21 00:00 Intake Total 4842 ml Output Total 1625 ml Balance 3217 ml Intake Oral 1090 ml IV Total 3752 ml Output Urine Total 1625 ml General: Alert, Oriented X3, No Acute Distress Lungs: Other (Bibasilar wheezing with crackles, normal work of breathing) Heart: Regular Rate, No Murmurs Abdomen: Normal Bowel Sounds, Soft, No Tenderness, No Masses Extremities: No Edema, No Tenderness/Swelling Skin: No Rashes Neuro: Normal Speech, Sensation Intact, Cranial Nerves 3-12 NL Psych/Mental Status: Mental Status NL, Mood NL Results/Procedures Lab Laboratory Tests 03/20/21 14:29: Glucometer 249H 03/20/21 20:07: Glucometer 258H 03/21/21 02:00: White Blood Count 9.4, Red Blood Count 3.89L, Hemoglobin 10.9L, Hematocrit 35L, Mean Corpuscular Volume 91, Mean Corpuscular Hemoglobin 28, Mean Corpuscular Hemoglobin Concent 31L, Red Cell Distribution Width 17.4H, Platelet Count 94L, Mean Platelet Volume 8.8L, Immature Granulocyte % (Auto) 2, Neutrophils (%) (Auto) 91H, Lymphocytes (%) (Auto) 4L, Monocytes (%) (Auto) 4, Eosinophils (%) (Auto) 0, Basophils (%) (Auto) 0, Neutrophils # (Auto) 8.5H, Lymphocytes # (Auto) 0.4L, Monocytes # (Auto) 0.4, Eosinophils # (Auto) 0.0, Basophils # (Auto) 0.0, Immature Granulocyte # (Auto) 0.1, Sodium Level 142, Potassium Level 3.7, Chloride Level 101, Carbon Dioxide Level 25, Anion Gap 16H, Blood Urea Nitrogen 15, Creatinine 0.96, Estimat Glomerular Filtration Rate > 60, BUN/Creatinine Ratio 16, Glucose Level 260H, Calcium Level 8.4L, Phosphorus Level 3.1, Magnesium Level 1.9 03/21/21 06:27: Glucometer 258H 03/21/21 06:34: Blood Gas Puncture Site L BRACH, Blood Gas Patient Temperature 36.5, Arterial Blood pH 7.41, Arterial Blood Partial Pressure CO2 51H, Arterial Blood Partial Pressure O2 52L, Arterial Blood HCO3 32H, Arterial Blood Total CO2 33.4H, Arterial Blood Oxygen Saturation 88L, Arterial Blood Base Excess 7.1H, Balwinder Test YES-POS, Blood Gas Ventilator Setting NO, Blood Gas Inspired Oxygen 40L 03/21/21 10:10: Glucometer 268H Microbiology 03/19/21 MRSA Screen - Final, Complete MRSA not isolated 03/19/21 Blood Culture - Preliminary, Resulted No growth Assessment/Plan Assessment/Plan (1) Acute and chronic respiratory failure with hypoxia Assessment & Plan: 03/21: Now requiring vapotherm 40L FiO2 80%, will titrate as tolerated, MAT protocol, CTA to rule out PE due to acute decompensation in resp iratory status (2) Acute on chronic heart failure with preserved ejection fraction Status: Acute Assessment & Plan: 03/21: Cardiology consulted and managing, Dr Rodriguez gave Bumex this AM due to increased fluid with CXR (3) Pneumonia Status: Acute Assessment & Plan: 03/21: Continue IV antibiotics Qualifiers: Qualified Codes: J18.9 - Pneumonia, unspecified organism (4) Atrial flutter with rapid ventricular response Status: Acute Assessment & Plan: 03/21: Now in SR, converted with Cardizem, Cardiology consulted and managing, appreciate recommendations (5) PVD (peripheral vascular disease) Status: Chronic (6) HLD (hyperlipidemia) Status: Chronic Qualifiers: Qualified Codes: E78.2 - Mixed hyperlipidemia (7) Uncontrolled diabetes mellitus Status: Chronic Assessment & Plan: 03/21: VALERIE Tomlinson Qualifiers: Qualified Codes: E11.65 - Type 2 diabetes mellitus with hyperglycemia (8) DAISY on CPAP Status: Chronic Assessment & Plan: 03/21: bringing CPAP to hospital today (9) CAD (coronary artery disease) Status: Chronic Qualifiers: Qualified Codes: I25.10 - Atherosclerotic heart disease of [place] coronary artery without angina pectoris (10) BMI 45.0-49.9, adult Status: Chronic (11) DVT prophylaxis Status: Acute Assessment & Plan: - Continue OAC JO ANN WYATT MD March 21, 2021 11:51
[2021-03-21] MEDS ORDERED: CLOP75TA28 PO (12:23)
[2021-03-21] MEDS ORDERED: ASPI-1238 PO (12:23)
[2021-03-21] MEDS ORDERED: OXYC1TAB11 PO (12:23)
[2021-03-21] MEDS ORDERED: IOHEXOL 350 MG/ML 100 ML (OMNIPAQUE 350) VIAL IV ONE (13:15)
[2021-03-21] MEDS ORDERED: NS 100 ML (IVPB) BAG IV ONE (13:15)
[2021-03-21] MEDS ORDERED: HOLD METFORMIN - RECEIVED CONTRAST 20 ML VIAL IV SCH (13:15)
[2021-03-21] MEDS ORDERED: ROPI0.5T4 PO (13:37)
[2021-03-21] MEDS ORDERED: ROPI1TAB PO (13:37)
--- NOTE | 2021-03-21 13:44 | Diagnostic Imaging Report ---
PROCEDURE: CT angiography of the chest with contrast. TECHNIQUE: Multiple contiguous axial images were obtained through the chest after uneventful bolus administration of intravenous contrast. 3D reconstructed CTA MIP acquisitions were also performed. Auto Exposure Controls were utilized during the CT exam to meet ALARA standards for radiation dose reduction. INDICATION: Increasing oxygen requirement as well as COPD and CHF. COMPARISON: No prior studies are available for comparison. FINDINGS: Evaluation of the pulmonary arterial system is without evidence of thromboembolism. No filling defects are seen within central, lobar, or segmental branches. The thoracic aorta is normal in caliber. There is no dissection. No pericardial or pleural fluid is identified. There are extensive airspace infiltrates throughout the right upper lobe and to a lesser degree right lower lobe. There is parenchymal consolidation with air bronchograms in the left lower lobe with mild patchy groundglass infiltrates in the left upper lobe. No axillary lymphadenopathy is seen. No definite mediastinal or hilar lymphadenopathy is detected. Upper abdomen is unremarkable. IMPRESSION: 1. No evidence of pulmonary embolism or thoracic aortic dissection. 2. Extensive bilateral pulmonary infiltrates, consistent with pneumonia. Dictated by: Dictated on workstation # [id number]
--- NOTE | 2021-03-21 16:54 | Progress Note ---
Subjective Date Seen by a Provider: March 21, 2021 Time Seen by a Provider: 16:00 Subjective/Events-last exam doing well. tolerating clears. no nausea/vomiting. no diarrhea. pts COPD significant and could not tolerate HIDA Focused Exam Lactate Level 03/19/21 11:55: Lactic Acid Level 2.28*H 03/19/21 15:04: Lactic Acid Level 1.68 Objective Exam Vital Signs Date Time Temp Pulse Resp B/P (MAP) Pulse Ox O2 Delivery O2 Flow Rate FiO2 03/21/21 16:00 69 152/95 (114) 92 Vapotherm 40.00 80.00 03/21/21 15:45 36.9 03/21/21 15:34 93 Vapotherm 40.00 80 03/21/21 15:00 141/88 (105) 93 Vapotherm 40.00 80.00 03/21/21 14:00 158/82 (107) 93 Vapotherm 40.00 80.00 03/21/21 13:00 73 2 136/85 (102) 95 Vapotherm 40.00 80.00 03/21/21 12:43 69 03/21/21 12:00 68 141/84 (103) 92 Vapotherm 40.00 80.00 03/21/21 12:00 94 Vapotherm 40.00 80 03/21/21 11:27 36.6 03/21/21 11:00 68 95 Vapotherm 40.00 80.00 03/21/21 10:58 95 Vapotherm 40.00 80 03/21/21 10:00 72 130/88 (102) 94 Vapotherm 40.00 80.00 03/21/21 09:00 73 128/83 (98) 97 Vapotherm 40.00 80.00 03/21/21 08:13 90 Vapotherm 40.00 80 03/21/21 08:00 73 121/77 (92) 89 Vapotherm 40.00 80.00 03/21/21 07:42 35.7 03/21/21 07:27 88 Vapotherm 40.00 80.00 03/21/21 07:18 95 Vapotherm 40.00 70.00 03/21/21 07:00 70 5 115/73 (87) 93 Vapotherm 40.00 80.00 03/21/21 06:57 70 03/21/21 06:37 93 Vapotherm 40.00 80 03/21/21 06:00 63 115/72 (86) 91 Vapotherm 40.00 80.00 03/21/21 05:00 63 110/70 (83) 94 Vapotherm 40.00 80.00 03/21/21 04:00 92 Vapotherm 40.00 80 03/21/21 04:00 65 93/68 (76) 92 Vapotherm 40.00 80.00 03/21/21 03:00 68 93/60 (71) 90 Vapotherm 40.00 80.00 03/21/21 02:30 Vapotherm 40.00 80.00 03/21/21 02:15 91 Vapotherm 40.00 80 03/21/21 02:00 71 101/60 (74) 86 OxyMask 13.00 03/21/21 01:32 90 OxyMask 13.00 03/21/21 01:00 63 03/21/21 01:00 63 103/66 (78) 93 OxyMask 13.00 03/21/21 00:00 61 104/66 (79) 93 OxyMask 13.00 03/21/21 00:00 90 OxyMask 13.00 03/20/21 23:00 65 103/63 (76) 92 OxyMask 13.00 03/20/21 22:14 OxyMask 13.00 03/20/21 22:03 93 OxyMask 13.00 03/20/21 22:00 66 100/62 (75) 93 OxyMask 15.00 03/20/21 21:10 69 91 OxyMask 15.00 03/20/21 21:00 70 115/77 (90) 90 Nasal Cannula 6.00 03/20/21 20:28 36.6 03/20/21 20:00 91 High Flow N/C 6.00 03/20/21 20:00 66 90/52 (65) 91 Nasal Cannula 6.00 03/20/21 19:00 71 03/20/21 19:00 71 98/62 (74) 88 Nasal Cannula 6.00 03/20/21 18:26 92 High Flow N/C 6.00 03/20/21 18:00 68 94/56 (69) 91 Nasal Cannula 6.00 03/20/21 17:00 72 90/43 (09) 93 Nasal Cannula 6.00 I & O 03/21/21 07:00 Intake Total 6482 ml Output Total 1575 ml Balance 4907 ml Capillary Refill : Greater Than 3 Seconds General Appearance: No Apparent Distress HEENT: PERRL/EOMI Neck: Full Range of Motion Respiratory: Decreased Breath Sounds, Rhonci, Wheezing Cardiovascular: Regular Rate, Rhythm Gastrointestinal: normal bowel sounds, non tender, soft Extremity: Normal Capillary Refill Neurologic/Psychiatric: Alert, Oriented x3 Skin: Normal Color Lymphatic: No Adenopathy Results Lab Laboratory Tests 03/20/21 20:07: Glucometer 258H 03/21/21 02:00: White Blood Count 9.4, Red Blood Count 3.89L, Hemoglobin 10.9L, Hematocrit 35L, Mean Corpuscular Volume 91, Mean Corpuscular Hemoglobin 28, Mean Corpuscular Hemoglobin Concent 31L, Red Cell Distribution Width 17.4H, Platelet Count 94L, Mean Platelet Volume 8.8L, Immature Granulocyte % (Auto) 2, Neutrophils (%) (Auto) 91H, Lymphocytes (%) (Auto) 4L, Monocytes (%) (Auto) 4, Eosinophils (%) (Auto) 0, Basophils (%) (Auto) 0, Neutrophils # (Auto) 8.5H, Lymphocytes # (Auto) 0.4L, Monocytes # (Auto) 0.4, Eosinophils # (Auto) 0.0, Basophils # (Auto) 0.0, Immature Granulocyte # (Auto) 0.1, Sodium Level 142, Potassium Level 3.7, Chloride Level 101, Carbon Dioxide Level 25, Anion Gap 16H, Blood Urea Nitrogen 15, Creatinine 0.96, Estimat Glomerular Filtration Rate > 60, BUN/Creatinine Ratio 16, Glucose Level 260H, Calcium Level 8.4L, Phosphorus Level 3.1, Magnesium Level 1.9 03/21/21 06:27: Glucometer 258H 03/21/21 06:34: Blood Gas Puncture Site L SHELLEY, Blood Gas Patient Temperature 36.5, Arterial Blood pH 7.41, Arterial Blood Partial Pressure CO2 51H, Arterial Blood Partial Pressure O2 52L, Arterial Blood HCO3 32H, Arterial Blood Total CO2 33.4H, Arterial Blood Oxygen Saturation 88L, Arterial Blood Base Excess 7.1H, Balwinder Test YES-POS, Blood Gas Ventilator Setting NO, Blood Gas Inspired Oxygen 40L 03/21/21 10:10: Glucometer 268H 03/21/21 15:48: Glucometer 254H Microbiology 03/19/21 Urine Culture - Final, Complete NO GROWTH 03/19/21 MRSA Screen - Final, Complete MRSA not isolated 03/19/21 Blood Culture - Preliminary, Resulted No growth Assessment/Plan Assessment/Plan Assess & Plan/Chief Complaint nausea/vomiting/diarrhea/abd pain. will await u/s report. hx GERD/PUD has not had a colonoscopy in past and will proceed with EGD and colonoscopy when stable IP vs OP THEO BIRD MD March 21, 2021 16:54
[2021-03-21] MEDS: oxyCODONE/APAP 7.5-325 MG (PERCOCET 7.5) TABLET PO PRN (18:09)
[2021-03-21] MEDS: DIAZEPAM 2 MG (VALIUM) TAB PO SCH (21:09)
[2021-03-21] MEDS: rOPINIRole 1 MG (REQUIP) TABLET PO SCH (21:10)
[2021-03-22] MEDS: RT-ALBUTEROL/IPRATROPIUM 3 ML (DUONEB) VIAL INH SCH ×6 (02:22→20:56)
[2021-03-22] MEDS: PIPERACILLIN/TAZOBACTAM (BULK) 4.5 GM in NS (IVPB) 100 ML IV SCH ×3 (02:32→17:14)
[2021-03-22] MEDS: oxyCODONE/APAP 7.5-325 MG (PERCOCET 7.5) TABLET PO PRN ×3 (02:34→14:44)
[2021-03-22 02:42] LABS: BASOPHILS % (AUTO) 0 % (0-10); EOSINOPHILS % (AUTO) 0 % (0-10); HEMATOCRIT 35 % (40-54); HEMOGLOBIN 10.9 g/dL (13.3-17.7); LYMPHOCYTES # (AUTO) 0.2 10^3/uL (1.0-4.0); LYMPHOCYTES % (AUTO) 2 % (12-44); MEAN CORPUSCULAR HEMOGLOBIN 28 pg (25-34); MEAN CORPUSCULAR HGB CONC 31 g/dL (32-36); MEAN CORPUSCULAR VOLUME 91 fL (80-99); MEAN PLATELET VOLUME 9.1 fL (9.0-12.2); MONOCYTES # (AUTO) 0.5 10^3/uL (0.0-1.0); MONOCYTES % (AUTO) 5 % (0-12); NEUTROPHILS # (AUTO) 8.6 10^3/uL (1.8-7.8); NEUTROPHILS % (AUTO) 90 % (42-75); PLATELET COUNT 105 10^3/uL (130-400); WHITE BLOOD COUNT 9.6 10^3/uL (4.3-11.0)
[2021-03-22 02:53] LABS: CHLORIDE 102 MMOL/L (98-107); POTASSIUM 4.5 MMOL/L (3.6-5.0); SODIUM 142 MMOL/L (135-145)
[2021-03-22 02:54] LABS: CALCIUM 8.4 MG/DL (8.5-10.1); GLUCOSE 220 MG/DL (70-105)
[2021-03-22 02:56] LABS: CARBON DIOXIDE 27 MMOL/L (21-32)
[2021-03-22 02:58] LABS: CREATININE SERUM 0.85 MG/DL (0.60-1.30); GFR ESTIMATED > 60
[2021-03-22 02:59] LABS: BUN/CREATININE RATIO 18
[2021-03-22 03:01] LABS: MAGNESIUM 1.8 MG/DL (1.6-2.4)
--- NOTE | 2021-03-22 03:24 | Pulmonary Progress Note ---
VENECIA BLANDON MED STUDENT 03/22/21 0324: Subjective Date Seen by a Provider: March 22, 2021 Time Seen by a Provider: 03:55 Subjective/Events-last exam Patient awake upon entering. Denies chest pain, SOB, nausea, vomiting, and fevers. States he slept poorly overnight due to blood pressure cuff cycling frequently. Tolerating po intake well. Reports productive cough with clear to yellowish sputum at times. Tolerated CPAP overnight with oxgyen bled in. No further questions/concerns at this time. Review of Systems General: No Chills, No Night Sweats HEENT: No Head Aches, No Visual Changes Pulmonary: No Dyspnea, No Pleuritic Chest Pain Cardiovascular: No: Chest Pain, Edema Gastrointestinal: No: Nausea, Vomiting, Abdominal Pain Genitourinary: No Dysuria, No Frequency; Retention (neurogenic bladder) Musculoskeletal: No: neck pain, back pain Neurological: No: Incoordination, Change in speech, Confusion Sepsis Event Evaluation Height, Weight, BMI Height: 5'8.00" Weight: 255lbs. oz. 115.967548ki; 42.84 BMI Method:Stated Focused Exam Lactate Level 03/19/21 11:55: Lactic Acid Level 2.28*H 03/19/21 15:04: Lactic Acid Level 1.68 Exam Exam Vital Signs Date Time Temp Pulse Resp B/P (MAP) Pulse Ox O2 Delivery O2 Flow Rate FiO2 03/22/21 00:00 65 125/73 (90) 87 NIV CPAP 15.00 03/21/21 23:09 NIV CPAP 15.00 03/21/21 23:00 68 127/75 (92) 91 NIV CPAP 14.00 03/21/21 22:13 NIV CPAP 14.00 03/21/21 22:00 69 117/74 (88) 91 Vapotherm 40.00 70.00 03/21/21 21:24 92 Vapotherm 40.00 80 03/21/21 21:00 71 123/78 (93) 89 Vapotherm 40.00 70.00 03/21/21 20:00 73 133/75 (94) 89 Vapotherm 40.00 70.00 03/21/21 20:00 94 Vapotherm 40.00 80 03/21/21 19:30 36.9 03/21/21 19:00 72 121/74 (90) 90 Vapotherm 40.00 70.00 03/21/21 19:00 72 03/21/21 18:51 93 Vapotherm 40.00 70 03/21/21 18:11 92 Vapotherm 40.00 70.00 03/21/21 18:00 73 2 139/92 (108) 92 Vapotherm 40.00 80.00 03/21/21 17:00 73 141/86 (104) 90 Vapotherm 40.00 80.00 03/21/21 16:00 69 152/95 (114) 92 Vapotherm 40.00 80.00 03/21/21 16:00 94 Vapotherm 40.00 80 03/21/21 15:45 36.9 03/21/21 15:34 93 Vapotherm 40.00 80 03/21/21 15:00 141/88 (105) 93 Vapotherm 40.00 80.00 03/21/21 14:00 158/82 (107) 93 Vapotherm 40.00 80.00 03/21/21 13:00 73 2 136/85 (102) 95 Vapotherm 40.00 80.00 03/21/21 12:43 69 03/21/21 12:00 68 141/84 (103) 92 Vapotherm 40.00 80.00 03/21/21 12:00 94 Vapotherm 40.00 80 03/21/21 11:27 36.6 03/21/21 11:00 68 95 Vapotherm 40.00 80.00 03/21/21 10:58 95 Vapotherm 40.00 80 03/21/21 10:00 72 130/88 (102) 94 Vapotherm 40.00 80.00 03/21/21 09:00 73 128/83 (98) 97 Vapotherm 40.00 80.00 03/21/21 08:13 90 Vapotherm 40.00 80 03/21/21 08:00 73 121/77 (92) 89 Vapotherm 40.00 80.00 03/21/21 07:42 35.7 03/21/21 07:27 88 Vapotherm 40.00 80.00 03/21/21 07:18 95 Vapotherm 40.00 70.00 03/21/21 07:00 70 5 115/73 (87) 93 Vapotherm 40.00 80.00 03/21/21 06:57 70 03/21/21 06:37 93 Vapotherm 40.00 80 03/21/21 06:00 63 115/72 (86) 91 Vapotherm 40.00 80.00 03/21/21 05:00 63 110/70 (83) 94 Vapotherm 40.00 80.00 03/21/21 04:00 92 Vapotherm 40.00 80 03/21/21 04:00 65 93/68 (76) 92 Vapotherm 40.00 80.00 I & O 03/22/21 06:59 Intake Total 2060 ml Output Total 600 ml Balance 1460 ml Height & Weight Height: 5'8.00" Weight: 255lbs. oz. 115.883864vg; 42.84 BMI Method:Stated General Appearance: No Apparent Distress, Obese HEENT: PERRL/EOMI Neck: Full Range of Motion Respiratory: No Accessory Muscle Use, No Respiratory Distress, Decreased Breath Sounds, Rhonci Cardiovascular: Regular Rate, Rhythm, Normal Peripheral Pulses Capillary Refill: Greater Than 3 Seconds Peripheral Pulses: 1+ Dorsalis Pedis (R), 1+ Left Dors-Pedis (L); 2+ Radial Pulses (R), 2+ Radial Pulses (L) Gastrointestinal: normal bowel sounds, non tender, soft Extremity: Normal Capillary Refill, No Calf Tenderness Neurologic/Psychiatric: Alert, Oriented x3 Skin: Normal Color, Warm/Dry Lymphatic: No Adenopathy Results Lab Laboratory Tests 03/21/21 02:00 03/22/21 02:25 Assessment/Plan Assessment/Plan PNA with acute respiratory insufficiency -Continue Zosyn -Continue solumedrol 40 IV Q12 -Continue vaportherm, wean as tolerated -CPAP over night, bleed 02 in AF w/RVR -Cardiology following - converted to SR at 0300 yesterday Nausea, vomiting, and diarrhea -Continue antiemetics PRN Anemia -Continue to monitor Thrombocytopenia -Continue to monitor CAD -Cardiology following History of central spinal cord syndrome resulting in chronic debility and weakness -Consider PT and OT consult DAISY -CPAP overnight Diabetes mellitus -Continue SSI, maintain tight control of blood glucoses Bipolar disorder -Continue depakote GI Prophylaxis -Continue protonix Anticoagulation -NAS Sullivan DO 03/22/21 0522: Assessment/Plan Assessment/Plan PNA with acute respiratory insufficiency -Rapid COVID is negative -Secondary to extensive bilateral infiltrates will check COVID PCR and IGG. -Check Resp viral panel. -Give lasix 40mg x 1 -Continue Zosyn -Continue solumedrol 40 IV Q12 -Continue vaportherm, wean as tolerated -CPAP over night, bleed 02 in AF w/RVR -Cardiology following - converted to SR at 0300 yesterday Nausea, vomiting, and diarrhea -Continue antiemetics PRN Anemia -Continue to monitor Thrombocytopenia -Continue to monitor CAD -Cardiology following History of central spinal cord syndrome resulting in chronic debility and weakness -Consider PT and OT consult DAISY -CPAP overnight Diabetes mellitus -Continue SSI, maintain tight control of blood glucoses Bipolar disorder -Continue depakote GI Prophylaxis -Continue protonix Anticoagulation -Eliquis Supervisory-Addendum Brief Verification & Attestation Participated in pt care: history, physical Personally performed: exam, history, MDM, supervision of care Care discussed with: Medical Student Procedures: n/a Results interpretation: Verified all documentation Verification and Attestation of Medical Student E/M Service A medical student performed and documented this service in my presence. I reviewed and verified all information documented by the medical student and made modifications to such information, when appropriate. I personally performed the physical exam and medical decision making. Nas Rodriguez, March 22, 2021,05:26 VENECIA BLANDON MED STUDENT March 22, 2021 03:24 NAS RODRIGUEZ DO March 22, 2021 05:22
[2021-03-22] MEDS ORDERED: FUROSEMIDE 40 MG/4 ML INJ (LASIX) IVP ONE (05:30)
--- NOTE | 2021-03-22 05:43 | Diagnostic Imaging Report ---
EXAMINATION: Portable erect AP chest at 3:08 AM INDICATION: Pneumonia The appearance of the chest has worsened since the prior study of 03/21/2021 as the left hemidiaphragm is now completely obscured by atelectasis/infiltrate and fluid. The density throughout the right lung is also somewhat greater and this finding is worrisome for worsening pneumonia/atelectasis as well. The heart is stable in size. The mediastinum is not widened. The osseous structures are intact. IMPRESSION: The appearance of the chest has worsened since the prior exam as there is greater involvement of the left lung base by pneumonia/atelectasis and fluid. The pneumonia/atelectasis in the right lung also seems somewhat worse. A follow-up study would be recommended for continued evaluation. Dictated by: Dictated on workstation # [id number]
[2021-03-22] MEDS: KCL 20 MEQ TAB (K-DUR) PO SCH (06:38)
[2021-03-22] MEDS: MAGNESIUM 1 GM/100 ML IVPB 100 ML IV SCH (06:38)
[2021-03-22] MEDS: POTASSIUM CL 10MEQ/50ML IVPB 50 ML IV SCH (06:38)
[2021-03-22] MEDS: inSUlin ASPART (NovoLOG) 1 UNIT/0.01 ML (CHARGE PER UNIT) SC SCH ×4 (06:47→21:02)
--- NOTE | 2021-03-22 07:55 | Cardiology Progress Note ---
Subjective Date Seen by Provider: March 22, 2021 Time Seen by Provider: 07:54 Subjective/Events-last exam Patient is laying down in bed, having more dyspnea, using Vapotherm 90% FiO2. Review of Systems General: No Chills, No Night Sweats; Fatigue; No Malaise, No Appetite, No Other HEENT: No Head Aches, No Visual Changes, No Eye Pain, No Ear Pain, No Dysphasia, No Sinus Congestion, No Post Nasal Drip, No Sore Throat, No Other Pulmonary: Dyspnea; No Cough, No Pleuritic Chest Pain, No Other Cardiovascular: No: Chest Pain, Palpitations, Orthopnea, Paroxysmal Noc. Dyspnea, Edema, Lt Headedness, Other Focused Exam Lactate Level 03/19/21 11:55: Lactic Acid Level 2.28*H 03/19/21 15:04: Lactic Acid Level 1.68 Objective-Cardiology Exam Last Set of Vital Signs Vital Signs 03/21/21 03/21/21 03/22/21 03/22/21 18:00 19:30 06:00 06:27 Temp 36.9 Pulse 58 Resp 2 B/P (MAP) 140/82 (101) Pulse Ox 91 O2 Delivery Vapotherm O2 Flow Rate 40.00 FiO2 85 Capillary Refill : Greater Than 3 Seconds I&O Intake and Output 03/22/21 00:00 Intake Total 3700 ml Output Total 1400 ml Balance 2300 ml Intake Oral 2700 ml IV Total 1000 ml Output Urine Total 1400 ml # Urine Diapers 3 General: Alert, Oriented X3, No Acute Distress HEENT: Atraumatic, PERRLA Neck: Supple, No JVD, No Thyromegaly Lungs: Other (Bibasilar wheezing with crackles, normal work of breathing) Heart: Regular Rate, Normal S1, Normal S2, No Murmurs Abdomen: Normal Bowel Sounds, Soft, No Tenderness, No Masses Extremities: No Edema, No Tenderness/Swelling Skin: No Rashes Neuro: Normal Speech, Sensation Intact, Cranial Nerves 3-12 NL Psych/Mental Status: Mental Status NL, Mood NL Results Lab Laboratory Tests 03/22/21 02:25 A/P-Cardiology Admission Diagnosis Pneumonia Atrial flutter Hypertension Hyperlipidemia Assessment/Plan Pneumonia, shortness of breath, nausea and vomiting and diarrhea. Started on antibiotic, IV fluid, worsening respiratory failure, maintained on Vapotherm, today on 90%, managed by primary care team Paroxysmal atrial flutter, had history of arrhythmia in November 2019 while in [facility] and was started on amiodarone which was stopped recently. Admitted with atrial flutter and converted to sinus rhythm on Cardizem drip, currently off Cardizem, on Amiodarone, Eliqujanine, currently in SR. Will require evaluation for ablation for atrial flutter as an outpatient [id number] score of 3, yearly risk of stroke without oral anticoagulation at 3.2%, starting on Eliquis Coronary artery disease, history of multiple cardiac catheterization multiple interventions in the past, Cardiac catheterization done February 16, 2021 with severe stenosis in the prox right coronary artery with successful primary stenting using Marcia 3.5 x 18mm overlapping with an old stent in the mid RCA. Patent stent in the LAD, mild coronary artery disease otherwise. Maintained on ASA and Plavix Peripheral arterial disease, Angiogram was done on September 15, 2020 showing total occlusion of the left anterior tibial artery with successful balloon angioplasty with multiple wires and balloons with excellent results. On the ri ght side anterior tibial artery was atretic and very small. The ulcer on his foot is improving. ISABELA continue to be nondiagnostic, TBI was better. ISABELA was done on October 20, 2020 was on the right side 1.34 and left side 1.45. TBI on the right side was 0.5 and on the left side 0.61, good waveforms was noted Congestive heart failure, chronic compensated left ventricular systolic dysfunction, ischemic cardiomyopathy, last echocardiogram was done in January 2021 showing normal LV size, EF 55 to 65%, grade 1 diastolic dysfunction, PA pressure 15 to 20 mmHg. Continue to monitor Status post respiratory failure. Mild elevation in troponin type II myocardial infarction secondary to hypoxemia in December 2019. Currently asymptomatic Hypotension, reporting history of hypotension, Coreg was stopped on March 08, 2021. I will monitor his blood pressure Hyperlipidemia, lipid profile done in September 2020 showing total cholesterol 193, triglyceride 221, HDL 50, LDL 122. Continue to monitor Diabetes mellitus, followed and managed by primary care physician History of C-spine surgery done in November 2019. BMI 41, we discussed weight loss History of bipolar disorder. ALINA GREGG MD March 22, 2021 07:55
[2021-03-22] MEDS: ASPIRIN 81 MG CHEW (CHILDREN'S ASA) PO SCH (08:25)
[2021-03-22] MEDS: APIXABAN 5 MG (ELIQUIS) TABLET PO SCH ×2 (08:25→20:22)
[2021-03-22] MEDS: CLOPIDOGREL 75 MG (PLAVIX) TABLET PO SCH (08:25)
[2021-03-22] MEDS: DIVALPROEX 500 MG DELAYED RELEASE (DEPAKOTE) TAB PO SCH ×2 (08:26→20:22)
[2021-03-22] MEDS: PANTOPRAZOLE 40 MG (PROTONIX) TAB PO SCH (08:26)
[2021-03-22] MEDS: [UNRECOGNIZED DRUG - REMARK] PO SCH (08:26)
[2021-03-22] MEDS: PREGABALIN 150 MG (LYRICA) CAPSULE PO SCH ×3 (08:26→20:23)
[2021-03-22] MEDS: TAMSULOSIN 0.4 MG (FLOMAX) CAP PO SCH (08:26)
[2021-03-22] MEDS: SERTRALINE 100 MG (ZOLOFT) TAB PO SCH (08:26)
[2021-03-22] MEDS: methylPREDNISolone 40 MG/ML (Solu-MEDROL) VIAL IV SCH ×2 (09:11→20:23)
--- NOTE | 2021-03-22 12:37 | Progress Note ---
Subjective Subjective/Events-last exam Patient states that he is feeling more short of breath this AM. Review of Systems General: Malaise Pulmonary: Dyspnea, Cough Cardiovascular: Orthopnea; No: Chest Pain, Palpitations Gastrointestinal: No: Nausea, Vomiting, Abdominal Pain Neurological: Weakness, Incoordination Focused Exam Lactate Level 03/19/21 15:04: Lactic Acid Level 1.68 Objective Exam Last Set of Vital Signs Vital Signs Date Time Temp Pulse Resp B/P (MAP) Pulse Ox O2 Delivery O2 Flow Rate FiO2 03/22/21 12:13 NIV CPAP 15.00 03/22/21 12:09 36.4 03/22/21 12:00 76 133/81 (98) 91 03/22/21 11:51 90 03/21/21 18:00 2 Capillary Refill : Greater Than 3 Seconds I&O Intake and Output 03/22/21 00:00 Intake Total 3700 ml Output Total 1400 ml Balance 2300 ml Intake Oral 2700 ml IV Total 1000 ml Output Urine Total 1400 ml # Urine Diapers 3 General: Alert, Oriented X3, Mild Distress Lungs: Other (diminished breath sounds, increased work of breath, + wheezing) Heart: Regular Rate, No Murmurs Abdomen: Normal Bowel Sounds, Soft, No Tenderness, No Masses Extremities: Other (1+ pitting edema equal bilaterally) Neuro: Normal Speech, Sensation Intact, Cranial Nerves 3-12 NL Results/Procedures Lab Laboratory Tests 03/21/21 15:48: Glucometer 254H 03/21/21 20:28: Glucometer 229H 03/22/21 02:25: White Blood Count 9.6, Red Blood Count 3.87L, Hemoglobin 10.9L, Hematocrit 35L, Mean Corpuscular Volume 91, Mean Corpuscular Hemoglobin 28, Mean Corpuscular Hemoglobin Concent 31L, Red Cell Distribution Width 17.1H, Platelet Count 105L, Mean Platelet Volume 9.1, Immature Granulocyte % (Auto) 2, Neutrophils (%) (Auto) 90H, Lymphocytes (%) (Auto) 2L, Monocytes (%) (Auto) 5, Eosinophils (%) (Auto) 0, Basophils (%) (Auto) 0, Neutrophils # (Auto) 8.6H, Lymphocytes # (Auto) 0.2L, Monocytes # (Auto) 0.5, Eosinophils # (Auto) 0.0, Basophils # (Auto) 0.0, Immature Granulocyte # (Auto) 0.2H, Sodium Level 142, Potassium Level 4.5, Chloride Level 102, Carbon Dioxide Level 27, Anion Gap 13, Blood Urea Nitrogen 15, Creatinine 0.85, Estimat Glomerular Filtration Rate > 60, BUN/Creatinine Ratio 18, Glucose Level 220H, Calcium Level 8.4L, Phosphorus Level 3.0, Magnesium Level 1.8 03/22/21 02:32: 03/22/21 06:45: Glucometer 234H 03/22/21 07:41: 03/22/21 09:36: Glucometer 217H Microbiology 03/19/21 Urine Culture - Final, Complete NO GROWTH 03/19/21 MRSA Screen - Final, Complete MRSA not isolated 03/19/21 Blood Culture - Preliminary, Resulted No growth Assessment/Plan Assessment/Plan (1) Acute and chronic respiratory failure with hypoxia Assessment & Plan: 03/21: Now requiring vapotherm 40L FiO2 80%, will titrate as tolerated, MAT protocol, CTA to rule out PE due to acute decompensation in respiratory status 03/22: Dr Rodriguez managing, repeating viral panel today (2) Acute on chronic heart failure with preserved ejection fraction Status: Acute Assessment & Plan: 03/21: Cardiology consulted and managing, Dr Rodriguez gave Bumex this AM due to increased fluid with CXR (3) Pneumonia Status: Acute Assessment & Plan: 03/21: Continue IV antibiotics Qualifiers: Qualified Codes: J18.9 - Pneumonia, unspecified organism (4) Atrial flutter with rapid ventricular response Status: Acute Assessment & Plan: 03/21: Now in SR, converted with Cardizem, Cardiology consulted and managing, appreciate recommendations (5) PVD (peripheral vascular disease) Status: Chronic (6) HLD (hyperlipidemia) Status: Chronic Qualifiers: Qualified Codes: E78.2 - Mixed hyperlipidemia (7) Uncontrolled diabetes mellitus Status: Chronic Assessment & Plan: 03/21: Accuchecks, SSI Qualifiers: Qualified Codes: E11.65 - Type 2 diabetes mellitus with hyperglycemia (8) DAISY on CPAP Status: Chronic Assessment & Plan: 03/21: bringing CPAP to hospital today (9) CAD (coronary artery disease) Status: Chronic Qualifiers: Qualified Codes: I25.10 - Atherosclerotic heart disease of [place] coronary artery without angina pectoris (10) BMI 45.0-49.9, adult Status: Chronic (11) DVT prophylaxis Status: Acute Assessment & Plan: - Continue OAC JO ANN WYATT MD March 22, 2021 12:37
[2021-03-22] MEDS: rOPINIRole 1 MG (REQUIP) TABLET PO SCH (20:22)
[2021-03-22] MEDS: DIAZEPAM 2 MG (VALIUM) TAB PO SCH (20:23)
[2021-03-23] MEDS: RT-ALBUTEROL/IPRATROPIUM 3 ML (DUONEB) VIAL INH SCH ×6 (02:43→22:08)
[2021-03-23 02:53] LABS: BASOPHILS % (AUTO) 0 % (0-10); EOSINOPHILS % (AUTO) 0 % (0-10); HEMATOCRIT 36 % (40-54); HEMOGLOBIN 11.3 g/dL (13.3-17.7); LYMPHOCYTES # (AUTO) 0.2 10^3/uL (1.0-4.0); LYMPHOCYTES % (AUTO) 3 % (12-44); MEAN CORPUSCULAR HEMOGLOBIN 29 pg (25-34); MEAN CORPUSCULAR HGB CONC 32 g/dL (32-36); MEAN CORPUSCULAR VOLUME 91 fL (80-99); MONOCYTES # (AUTO) 0.4 10^3/uL (0.0-1.0); MONOCYTES % (AUTO) 5 % (0-12); NEUTROPHILS # (AUTO) 7.2 10^3/uL (1.8-7.8); NEUTROPHILS % (AUTO) 89 % (42-75); PLATELET COUNT 109 10^3/uL (130-400); WHITE BLOOD COUNT 8.1 10^3/uL (4.3-11.0)
[2021-03-23] MEDS: PIPERACILLIN/TAZOBACTAM (BULK) 4.5 GM in NS (IVPB) 100 ML IV SCH ×3 (03:00→18:03)
[2021-03-23 03:07] LABS: CHLORIDE 97 MMOL/L (98-107); POTASSIUM 4.3 MMOL/L (3.6-5.0); SODIUM 140 MMOL/L (135-145)
[2021-03-23 03:09] LABS: CALCIUM 8.6 MG/DL (8.5-10.1); GLUCOSE 316 MG/DL (70-105)
[2021-03-23 03:11] LABS: CARBON DIOXIDE 30 MMOL/L (21-32)
[2021-03-23 03:13] LABS: CREATININE SERUM 0.93 MG/DL (0.60-1.30); GFR ESTIMATED > 60; PHOSPHORUS 3.2 MG/DL (2.3-4.7)
[2021-03-23 03:14] LABS: BUN/CREATININE RATIO 20
[2021-03-23 03:16] LABS: MAGNESIUM 1.9 MG/DL (1.6-2.4)
[2021-03-23] MEDS: POTASSIUM CL 10MEQ/50ML IVPB 50 ML IV SCH (03:16)
[2021-03-23] MEDS: KCL 20 MEQ TAB (K-DUR) PO SCH (03:16)
[2021-03-23] MEDS: MAGNESIUM 1 GM/100 ML IVPB 100 ML IV SCH (03:17)
--- NOTE | 2021-03-23 03:51 | Pulmonary Progress Note ---
VENECIA BLANDON MED STUDENT 03/23/21 0351: Subjective Date Seen by a Provider: March 23, 2021 Time Seen by a Provider: 03:48 Subjective/Events-last exam Patient awake upon entering room. Reports that he's feeling about the same as yesterday. States he's still SOB, but is not worsened from yesterday. Cough productive with clear sputum. Denies chest pain, palpitation, nausea, fevers, and chills. Reports sleeping ok. Review of Systems General: No Chills, No Night Sweats HEENT: No Head Aches, No Visual Changes Pulmonary: Dyspnea, Cough; No Pleuritic Chest Pain Cardiovascular: No: Chest Pain, Palpitations Gastrointestinal: No: Nausea, Vomiting Genitourinary: No Dysuria, No Frequency Musculoskeletal: No: neck pain, back pain Neurological: No: Change in speech, Confusion Sepsis Event Evaluation Height, Weight, BMI Height: 5'8.00" Weight: 255lbs. oz. 115.634130yr; 42.84 BMI Method:Stated Exam Exam Vital Signs Date Time Temp Pulse Resp B/P (MAP) Pulse Ox O2 Delivery O2 Flow Rate FiO2 03/23/21 02:43 92 NIV CPAP 15.00 03/22/21 23:59 90 NIV CPAP 15.00 03/22/21 23:00 72 144/84 (104) 96 NIV CPAP 15.00 03/22/21 22:00 78 132/81 (98) 90 NIV CPAP 15.00 03/22/21 21:35 81 NIV CPAP 15.00 03/22/21 21:00 71 105/92 (94) 92 Vapotherm 40.00 85.00 03/22/21 20:56 92 Vapotherm 40.00 85 03/22/21 20:00 91 Vapotherm 40.00 85 03/22/21 20:00 74 128/84 (95) 86 Vapotherm 40.00 85.00 03/22/21 20:00 36.6 03/22/21 19:00 73 03/22/21 19:00 73 117/71 (87) 91 Vapotherm 40.00 85.00 03/22/21 18:09 91 Vapotherm 40.00 85 03/22/21 18:00 75 153/95 (114) 88 Vapotherm 40.00 85.00 03/22/21 17:00 70 140/87 (104) 93 Vapotherm 40.00 85.00 03/22/21 16:05 36.1 94 Vapotherm 40.00 85.00 03/22/21 16:00 70 134/90 (105) 93 Vapotherm 40.00 85.00 03/22/21 15:22 91 Vapotherm 40.00 85 03/22/21 15:00 69 125/76 (92) 92 Vapotherm 40.00 85.00 03/22/21 14:51 Vapotherm 40.00 85.00 03/22/21 14:19 91 NIV CPAP 15.00 03/22/21 14:00 63 117/76 (90) 97 Vapotherm 40.00 90.00 03/22/21 13:00 66 120/73 (89) 93 Vapotherm 40.00 90.00 03/22/21 12:53 68 03/22/21 12:13 NIV CPAP 15.00 03/22/21 12:09 36.4 03/22/21 12:00 76 133/81 (98) 91 Vapotherm 40.00 90.00 03/22/21 11:51 95 Vapotherm 40.00 90 03/22/21 11:00 71 143/88 (106) 92 Vapotherm 40.00 90.00 03/22/21 10:32 95 Vapotherm 40.00 85 03/22/21 10:00 66 152/96 (114) 94 Vapotherm 40.00 90.00 03/22/21 09:00 66 148/101 (117) 97 Vapotherm 40.00 90.00 03/22/21 08:03 Vapotherm 40.00 90.00 03/22/21 08:00 96 Vapotherm 40.00 90 03/22/21 08:00 35.9 03/22/21 08:00 69 138/104 (115) 95 NIV CPAP 15.00 03/22/21 07:00 67 151/90 (110) 94 NIV CPAP 15.00 03/22/21 06:47 68 03/22/21 06:27 91 Vapotherm 40.00 85 03/22/21 06:00 58 140/82 (101) 93 NIV CPAP 15.00 03/22/21 05:00 57 130/96 (107) 90 NIV CPAP 15.00 03/22/21 04:00 72 163/93 (116) 91 NIV CPAP 15.00 I & O 03/23/21 07:00 Intake Total 2230 ml Output Total 1900 ml Balance 330 ml Height & Weight Height: 5'8.00" Weight: 255lbs. oz. 115.578236jo; 42.84 BMI Method:Stated General Appearance: No Apparent Distress, Obese HEENT: PERRL/EOMI Neck: Full Range of Motion Respiratory: Chest Non Tender, No Accessory Muscle Use, No Respiratory Distress, Decreased Breath Sounds, Rhonci Cardiovascular: Regular Rate, Rhythm, Normal Peripheral Pulses Capillary Refill: Greater Than 3 Seconds Peripheral Pulses: 1+ Dorsalis Pedis (R), 1+ Left Dors-Pedis (L); 2+ Radial Pulses (R), 2+ Radial Pulses (L) Gastrointestinal: normal bowel sounds, non tender, soft Extremity: Normal Capillary Refill, No Calf Tenderness Neurologic/Psychiatric: Alert, Oriented x3, Normal Mood/Affect Skin: Normal Color, Warm/Dry Lymphatic: No Adenopathy Results Lab Laboratory Tests 03/22/21 02:25 03/23/21 02:43 Assessment/Plan Assessment/Plan PNA with acute respiratory insufficiency -Continue Zosyn -Continue solumedrol 40 IV Q12 -Continue vaportherm, wean as tolerated -CPAP over night, bleed 02 in -Covid PCR and IGG AB negative -Resp panel pending AF w/RVR -Cardiology following - converted to SR at 0300 on 5-10 Nausea, vomiting, and diarrhea- Resolved -Continue antiemetics PRN Anemia -Continue to monitor Thrombocytopenia -Continue to monitor CAD -Cardiology following History of central spinal cord syndrome resulting in chronic debility and weakness -Consider PT and OT consult DAISY -CPAP overnight Diabetes mellitus -Continue SSI, maintain tight control of blood glucoses Bipolar disorder -Continue depakote GI Prophylaxis -Continue protonix Anticoagulation -NAS Sullivan DO 03/23/21 0557: Assessment/Plan Assessment/Plan PNA with acute respiratory insufficiency -Continue Zosyn -Continue solumedrol 40 IV Q12 -Continue vaportherm, wean as tolerated -CPAP over night, bleed 02 in -Covid PCR and IGG AB negative -Resp panel pending AF w/RVR -Cardiology following - converted to SR at 0300 on 5-10 Nausea, vomiting, and diarrhea- Resolved -Continue antiemetics PRN Anemia -Continue to monitor Thrombocytopenia -Continue to monitor CAD -Cardiology following History of central spinal cord syndrome resulting in chronic debility and weakness -Consider PT and OT consult DAISY -CPAP overnight Diabetes mellitus -Continue SSI, maintain tight control of blood glucoses Bipolar disorder -Continue depakote GI Prophylaxis -Continue protonix Anticoagulation -Eliquis Supervisory-Addendum Brief Verification & Attestation Participated in pt care: history, MDM, physical Personally performed: exam, history, MDM, supervision of care Care discussed with: Medical Student Procedures: n/a Results interpretation: Verified all documentation Verification and Attestation of Medical Student E/M Service A medical student performed and documented this service in my presence. I reviewed and verified all information documented by the medical student and made modifications to such information, when appropriate. I personally performed the physical exam and medical decision making. Nas Rodriguez, March 29, 2021,08:34 VENECIA BLANDON MED STUDENT March 23, 2021 03:51 NAS RODRIGUEZ DO March 23, 2021 05:57
[2021-03-23] MEDS: inSUlin ASPART (NovoLOG) 1 UNIT/0.01 ML (CHARGE PER UNIT) SC SCH ×5 (05:12→20:31)
--- NOTE | 2021-03-23 07:18 | Diagnostic Imaging Report ---
INDICATION: Pneumonia. Atrial flutter Upright portable chest shows mild cardiomegaly with mild pulmonary venous distention. There has been partial clearing of the right lung infiltrates and some improvement in the left basilar atelectasis since the 03/22/21 study. There is no effusion. IMPRESSION: Improving chest. Dictated by: Dictated on workstation # [id number]
[2021-03-23] MEDS: DIVALPROEX 500 MG DELAYED RELEASE (DEPAKOTE) TAB PO SCH ×2 (07:43→20:34)
[2021-03-23] MEDS: PREGABALIN 150 MG (LYRICA) CAPSULE PO SCH ×3 (07:43→20:32)
[2021-03-23] MEDS: methylPREDNISolone 40 MG/ML (Solu-MEDROL) VIAL IV SCH ×2 (07:43→20:31)
[2021-03-23] MEDS: ASPIRIN 81 MG CHEW (CHILDREN'S ASA) PO SCH (07:43)
[2021-03-23] MEDS: PANTOPRAZOLE 40 MG (PROTONIX) TAB PO SCH (07:44)
[2021-03-23] MEDS: APIXABAN 5 MG (ELIQUIS) TABLET PO SCH ×2 (07:44→20:32)
[2021-03-23] MEDS: TAMSULOSIN 0.4 MG (FLOMAX) CAP PO SCH (07:44)
[2021-03-23] MEDS: SERTRALINE 100 MG (ZOLOFT) TAB PO SCH (07:44)
[2021-03-23] MEDS: oxyCODONE/APAP 7.5-325 MG (PERCOCET 7.5) TABLET PO PRN ×3 (07:44→22:19)
[2021-03-23] MEDS: CLOPIDOGREL 75 MG (PLAVIX) TABLET PO SCH (07:44)
[2021-03-23] MEDS: [UNRECOGNIZED DRUG - REMARK] PO SCH (07:44)
--- NOTE | 2021-03-23 08:32 | Physician Query Clarification ---
PQ-Uncertain Diagnosis Admission/Discharge Admission Date: March 19, 2021 at 13:13 Discharge Date: Dr. Kapoor, The medical record reflects the following clinical scenario: History/Risk Factors: pneumonia, acute on chronic respiratory failure w/hypoxia, HTN w/acute on chronic systolic CHF, Atrial flutter Clinical Findings: T 37.4, P 111, R 20, WBC 17.6, Lactic acid 2.28 Treatment: IV Piperacillin, IV Vancomycin Question: Is sepsis a clinically valid diagnosis? Sepsis was documented in the H&P with no further documentation in the medical record. Please document a response in Progress Note or Discharge Summary. 1. Yes, clinically valid, condition resolved. 2. No, condition ruled out. 3. Other, with explanation of clinical findings. 4. Undetermined, no explanation for clinical findings. PHYSICIAN RESPONSE Diagnosis clinically valid: Yes, Conditon resolved Please remember a lack of response to the above will prompt a phone page by CDI/Coding staff. In responding to this query, please exercise your independent professional judgment. The purpose of this communication is to more accurately reflect the complexity of your patients condition. The fact that a question is asked does not imply that any particular answer is desired or expected. Thank you for your timely response to this clarification. Requestors name: Juliette THIS PHYSICIAN QUERY FORM IS A PERMANENT PART OF THE MEDICAL RECORD JULIETTE GODFREY March 23, 2021 08:32 JO ANN KAPOOR MD March 24, 2021 21:11
--- NOTE | 2021-03-23 08:38 | Physician Query Clarification ---
PQ-Further Specificity Admission/Discharge Admission Date: March 19, 2021 at 13:13 Discharge Date: Dr. Franklin The medical record reflects the following clinical scenario: History/Risk Factors: Pneumonia, HTN w/acute on chronic systolic CHF, Acute on chronic respiratory failure w/hypoxia, atrial flutter Clinical Findings: Troponin 0.051 Treatment: SC Lovenox, IV Diltiazem Question: Can you further specify the elevated troponin per the clinical indicators above? Please document a response in the Progress Notes or Discharge Summary. 1. elevated troponin d/t demand ischemia type 2 IN 2. elevated troponin etiology undetermined 3. Other, with explanation of the clinical findings. 4. Clinically undetermined, no explanation for the clinical findings. PHYSICIAN RESPONSE Can you specify per above: 1 Please remember a lack of response to the above will prompt a phone page by CDI/Coding staff. In responding to this query, please exercise your independent professional judgment. The purpose of this communication is to more accurately reflect the complexity of your patients condition. The fact that a question is asked does not imply that any particular answer is desired or expected. Thank you for your timely response to this clarification. Requestors name: Juliette THIS PHYSICIAN QUERY FORM IS A PERMANENT PART OF THE MEDICAL RECORD JULIETTE GODFREY March 23, 2021 08:38 ALINA FARNKLIN MD March 23, 2021 16:57
--- NOTE | 2021-03-23 11:38 | Physical Therapy Evaluation ---
PT Evaluation-General Medical Diagnosis Admission Date March 19, 2021 at 13:13 Medical Diagnosis: PNA, acute resp. insuff. Onset Date: March 19, 2021 Therapy Diagnosis Therapy Diagnosis: impaired mobility, strength, endurance Height/Weight Height (Feet): 5 Height (Inches): 8.00 Weight (Pounds): 255 Precautions Precautions/Isolations: Fall Prevention, Standard Precautions, Pressure Ulcer Referral Physician: Antwon Reason for Referral: Evaluation/Treatment Medical History Pertinent Medical History: Arthritis, CAD, DM, HTN, [place], Rheumatoid Arthritis Additional Medical History Past Medical History Surgeries: Yes (RIGHT ROTATOR CUFF) Coronary Stent, Orthopedic Respiratory: Yes Sleep Apnea Currently Using CPAP: Yes Currently Using BIPAP: No Cardiac: Yes Atrial Fibrillation, Cardiomyopathy, Chronic Edema/Swelling, Coronary Artery Disease, Congenital Heart Disease, High Cholesterol, Hypertension, Peripheral Vascular Neurological: Yes Neuropathy, Paralysis Genitourinary: Yes Benign Prostatic Hyperpl, Prostate Problems, Neurogenic Bladder Gastrointestinal: No Chronic Constipation Musculoskeletal: Yes (neck/back injury 1999 recent anterior neck surgery on 12/11/19) Degenerate Disk Disease, Chronic Back Pain Endocrine: Yes Diabetes, Non-Insulin dep HEENT: No Cancer: No Psychosocial: Yes Anxiety, Bipolar, Depression Reviewed History: Yes Social History Home: Single Level Entry Into Home: Ramp Prior Prior Level of Function SCALE: Activities may be completed with or without assistive devices. 4-Ihsnrmsbrp-expleci completes the activity by him/herself with no assistance from a helper. 5-Set-up or Clean-up Assistance-helper sets up or cleans up; patient completes activity. [place] assists only prior to or following the activity. 4-Supervision or Touching Assistance-helper provides verbal cues and/or touching/steadying and/or contact guard assistance as patient completes activity. Assistance may be provided throughout the activity or intermittently. 3-Partial/Moderate Assistance-helper does LESS THAN HALF the effort. [place] lifts, holds or supports trunk or limbs, but provides less than half the effort. 2-Substantial/Maximal Assistance-helper does MORE THAN HALF the effort. [place] lifts or holds trunk or limbs and provides more than half the effort. 4-Npqdlsfhy-lpndwn does ALL the effort. Patient does none of the effort to complete the activity. Or, the assistance of 2 or more helpers is required for the patient to complete the activity. If activity was not attempted, code reason: 7-Patient Refused. 9-Not Applicable-not attempted and the patient did not perform the activity before the current illness, exacerbation or injury. 10-Not Attempted due to Environmental Limitations-(lack of equipment, weather restraints, etc.). 88-Not Attempted due to Medical Conditions or Safety Concerns. Bed Mobility: 3 Transfers (B,C,W/C): 3 Wheelchair Mobility: 6 Prior Devices Use: Motorized wheelchair Patient states he could perform a stand pivot transfer to his PT Evaluation-Current Subjective Patient in bed pre tx, agrees to PT, has no complaints of pain. Patient states he is nervous about getting out of bed but excited at the same time. Pt/Family Goals "to get stronger" Objective Patient Orientation: Person, Place, Situation Attachments: Oxygen, IV vapotherm ROM/Strength ROM Lower Extremities WNL Strength Lower Extremities gross 4+/5 BLE Sensory Vision: Functional Hearing: Functional Sensation Right Lower Extremit: Impaired Sensation Left Lower Extremity: Impaired Transfers Roll Left to Right (QC): 6 Lying to Sitting/Side of Bed(Q: 3 Sit to Stand (QC): 4 Chair/Kxf-st-Ibkej Xfer(QC): 4 CGA for sit to stand and transfer, patient was able to ambulate about 3' to the recliner, wide RAHEEL and slightly unsteady Wheelchair Training Does the Pt Use a Wheelchair?: Yes Balance Sitting Static: Fair Sitting Dynamic: Fair Standing Static: Fair Standing Dynamic: Poor Treatment seated BLE x20 (AP, LAQ) Assessment/Needs Patient in recliner post tx with nurse call, phone, tray, all needs met. Patient needs min assist for supine to sit but just CGA to stand and transfer. Patient is slightly unsteady. Rehab Potential: Fair PT Supply Service Worker Goals Mcc Goals PT Supply Service Worker Goals Time Frame: March 30, 2021 Roll Left & Right (QC): 6 Sit to Lying (QC): 6 Lying-Sitting on Side/Bed(QC): 6 Sit to Stand (QC): 5 Chair/Anp-qn-Bjmpv Xfer(QC): 5 Walk 10 feet (QC): 4 PT Plan Problem List Problem List: Activity Tolerance, Functional Strength, Safety, Balance, Gait, Transfer, Bed Mobility, ROM Treatment/Plan Treatment Plan: Continue Plan of Care Treatment Plan: Bed Mobility, Education, Functional Activity Melva, Functional Strength, Gait, Safety, Therapeutic Exercise, Transfers Treatment Duration: March 30, 2021 Frequency: 6 times per week Estimated Hrs Per Day: .25 hour per day Patient and/or Family Agrees t: Yes Safety Risks/Education Patient Education: Gait Training, Transfer Techniques, Correct Positioning, Safety Issues Teaching Recipient: Patient Teaching Methods: Demonstration, Discussion Response to Teaching: Reinforcement Needed Discharge Recommendations Plan Patient will perform bed mobility and transfer training, balance and endurance training, functional strengthening, gait training, and education, to improve functional mobility and independence at home. Therapy Discharge Recommendati: Scheduled Assistance, Home & Family, Post Acute PT Time/GCodes Time In: 1105 Time Out: 1124 Total Billed Treatment Time: 19 Total Billed Treatment 1 visit MAI Newell' LEOBARDO HUBBARD PT March 23, 2021 11:37
[2021-03-23 12:07] LABS: PARAINFLU 1 PCR Not Detected (Not Detected); PARAINFLU 2 PCR Not Detected (Not Detected); RSV PCR TEST Not Detected (Not Detected)
--- NOTE | 2021-03-23 15:04 | Progress Note ---
Subjective Subjective/Events-last exam Patient states that he is feeling some better. + shortness of breath. Tolerating PO diet. Has not been to the side of the bed or attempted ambulation for several days due to shortness of breath with exertion. Review of Systems General: Malaise Pulmonary: Dyspnea, Cough Cardiovascular: Edema; No: Chest Pain, Palpitations Gastrointestinal: No: Nausea, Vomiting, Abdominal Pain, Diarrhea, Constipation Neurological: Weakness, Incoordination Objective Exam Last Set of Vital Signs Vital Signs Date Time Temp Pulse Resp B/P (MAP) Pulse Ox O2 Delivery O2 Flow Rate FiO2 03/23/21 14:21 95 Vapotherm 40.00 55 03/23/21 12:33 79 03/23/21 12:00 126/89 (101) 03/23/21 11:45 35.7 03/21/21 18:00 2 Capillary Refill : Greater Than 3 Seconds I&O Intake and Output 03/23/21 00:00 Intake Total 2430 ml Output Total 2500 ml Balance -70 ml Intake Oral 2190 ml IV Total 240 ml Output Urine Total 2500 ml # Voids 1 # Bowel Movements 2 General: Alert, Oriented X3, Moderate Distress (with any exertion) Lungs: Other (Right wheezing and crackles at the bases, increased work of breathing) Heart: No Murmurs Abdomen: Normal Bowel Sounds, Soft, No Tenderness, No Masses Extremities: Other (2+ pitting edema equal bilaterall) Neuro: Normal Speech, Sensation Intact, Cranial Nerves 3-12 NL Psych/Mental Status: Mental Status NL, Mood NL Results/Procedures Lab Laboratory Tests 03/22/21 20:52: Glucometer 272H 03/23/21 02:43: White Blood Count 8.1, Red Blood Count 3.93L, Hemoglobin 11.3L, Hematocrit 36L, Mean Corpuscular Volume 91, Mean Corpuscular Hemoglobin 29, Mean Corpuscular H emoglobin Concent 32, Red Cell Distribution Width 16.6H, Platelet Count 109L, Mean Platelet Volume 9.0, Immature Granulocyte % (Auto) 3, Neutrophils (%) (Auto) 89H, Lymphocytes (%) (Auto) 3L, Monocytes (%) (Auto) 5, Eosinophils (%) (Auto) 0, Basophils (%) (Auto) 0, Neutrophils # (Auto) 7.2, Lymphocytes # (Auto) 0.2L, Monocytes # (Auto) 0.4, Eosinophils # (Auto) 0.0, Basophils # (Auto) 0.0, Immature Granulocyte # (Auto) 0.2H, Sodium Level 140, Potassium Level 4.3, Chloride Level 97L, Carbon Dioxide Level 30, Anion Gap 13, Blood Urea Nitrogen 19H, Creatinine 0.93, Estimat Glomerular Filtration Rate > 60, BUN/Creatinine Ratio 20, Glucose Level 316H, Calcium Level 8.6, Phosphorus Level 3.2, Magnesium Level 1.9 03/23/21 09:55: Glucometer 264H Microbiology 03/23/21 C. difficile GDH Antigen & Toxins - Final, Complete 03/21/21 Gram Stain - Final, Complete 03/21/21 Sputum Culture - Final, Complete Usual upper respiratory julia YEAST 03/19/21 Urine Culture - Final, Complete NO GROWTH 03/19/21 Blood Culture - Preliminary, Resulted No growth Assessment/Plan Assessment/Plan (1) Acute and chronic respiratory failure with hypoxia Assessment & Plan: 03/21: Now requiring vapotherm 40L FiO2 80%, will titrate as tolerated, MAT protocol, CTA to rule out PE due to acute decompensation in respiratory status 03/22: Dr Rodriguez managing, repeating viral panel today 03/23: Covid neg, c diff neg, Neg viral panel, Focus on IS and try sitting at th e edge of the bed for meals, continue to titrate as tolerated (2) Acute on chronic heart failure with preserved ejection fraction Status: Acute Assessment & Plan: 03/21: Cardiology consulted and managing, Dr Rodriguez gave Bumex this AM due to increased fluid with CXR (3) Pneumonia Status: Acute Assessment & Plan: 03/21: Continue IV antibiotics Qualifiers: Qualified Codes: J18.9 - Pneumonia, unspecified organism (4) Atrial flutter with rapid ventricular response Status: Acute Assessment & Plan: 03/21: Now in SR, converted with Cardizem, Cardiology consulted and managing, appreciate recommendations (5) PVD (peripheral vascular disease) Status: Chronic (6) HLD (hyperlipidemia) Status: Chronic Qualifiers: Qualified Codes: E78.2 - Mixed hyperlipidemia (7) Uncontrolled diabetes mellitus Status: Chronic Assessment & Plan: 03/21: Accuchecks, SSI Qualifiers: Qualified Codes: E11.65 - Type 2 diabetes mellitus with hyperglycemia (8) DAISY on CPAP Status: Chronic Assessment & Plan: 03/21: bringing CPAP to hospital today (9) CAD (coronary artery disease) Status: Chronic Qualifiers: Qualified Codes: I25.10 - Atherosclerotic heart disease of [place] coronary artery without angina pectoris (10) BMI 45.0-49.9, adult Status: Chronic (11) DVT prophylaxis Status: Acute Assessment & Plan: - Continue OAC JO ANN WYATT MD March 23, 2021 15:04
--- NOTE | 2021-03-23 16:42 | Occupational Therapy Eval ---
OT Evaluation-General/PLF Medical Diagnosis Admission Date March 19, 2021 at 13:13 Medical Diagnosis: PNA, acute resp. insuff. Onset Date: March 19, 2021 Therapy Diagnosis Therapy Diagnosis: Weakness, Decreased ADL skills Height/Weight Height (Feet): 5 Height (Inches): 8.00 Weight (Pounds): 255 Precautions Precautions/Isolations: Fall Prevention, Standard Precautions, Pressure Ulcer Weight Bear Status Weight Bearing Restriction: Weight Bearing/Tolerated Referral Physician: Antwon Referral Reason: Activity Tolerance, Self Care, Evaluation/Treatment, Strengthening/ROM Medical History Pertinent Medical History: Arthritis, CAD, DM, HTN, UT, Rheumatoid Arthritis Additional Medical History Ischemic cardiomyopathy, bipolar disorder Current History Pt. presents with hypoxia and infiltrates/PNA. Reviewed History: Yes Social History Home: Single Level Current Living Status: Spouse Entry Into Home: Ramp ADL-Prior Level of Function SCALE: Activities may be completed with or without assistive devices. 4-Dsidiokgrl-mtwfpee completes the activity by him/herself with no assistance from a helper. 5-Set-up or Clean-up Assistance-helper sets up or cleans up; patient completes activity. [place] assists only prior to or following the activity. 4-Supervision or Touching Assistance-helper provides verbal cues and/or touching/steadying and/or contact guard assistance as patient completes a ctivity. Assistance may be provided throughout the activity or intermittently. 3-Partial/Moderate Assistance-helper does LESS THAN HALF the effort. [place] lifts, holds or supports trunk or limbs, but provides less than half the effort. 2-Substantial/Maximal Assistance-helper does MORE THAN HALF the effort. [place] lifts or holds trunk or limbs and provides more than half the effort. 5-Mhacphfkt-zkkcrs does ALL the effort. Patient does none of the effort to complete the activity. Or, the assistance of 2 or more helpers is required for the patient to complete the activity. If activity was not attempted, code reason: 7-Patient Refused. 9-Not Applicable-not attempted and the patient did not perform the activity before the current illness, exacerbation or injury. 10-Not Attempted due to Environmental Limitations-(lack of equipment, weather restraints, etc.). 88-Not Attempted due to Medical Conditions or Safety Concerns. ADL PLOF Comments Pt. lives with spouse. Pt. is disabled, and spouse assists with all ADLs. Pt. uses power wheelchair for mobility, but can stand from walker to transfer to and from surfaces. Pt. states that he can ambulate approximately 6 steps. He uses a manual wheelchair in bathroom to pull up to tub transfer bench, and then transfers with spouse's assist. She assists him in shower, and with dressing. Pt. also uses a bariatric hospital bed at home with a trapeze for mobility. Self Care: Needed Some Help Functional Cognition: Unknown DME/Equipment: Bath Bench, Tub/Shower DME/Equipment Comments BSC, power wheelchair, manual wheelchair, hospital bed, walker. OT Current Status Subjective Pt. does not report pain, but does state that he just had a pain pill. Appearance Pt. in bed. Alert and oriented. Agrees to work with OT. Mental Status/Objective Patient Orientation: Person, Place, Time, Situation Current Upper Extremity ROM Pt. is able to flex bilateral shoulders to approximately 60-80 degrees grossly. Upper Extremity Strength Right hand- 4/5 Left hand- 2+/5 Elbows/shoulders NT ADL-Treatment Eating (QC): 5 (Pt. reports that he requires set up from spouse to eat, such as cutting meat. He occasionally uses built up handles at home.) Lower Body Dressing (QC): 1 (Per clinical judgement.) On/Off Footwear (QC): 1 (Pt. does attempt to doff slipper socks once sitting on EOB. Pt. unable to do.) Pt. agrees to work with OT. Pt. able to bring bilateral LE to side of bed. Requires max assist for supine-sit. Pt. able to scoot to EOB. Pt. on vapotherm, but stays at 94%. Pt. able to sit approximately 10 minutes, but becomes fatigued with UE activity, and O2 sats drop to 85% via monitor. Mod assist required for sit-supine. Pt. is able to transfer self in bed toward HOB with cues for bending LE, pushing with LE, and using UE to pull on rails. Pt. requires step by step instructions with this. Pillows positioned for pressure relief and comfort. All needs met. Education OT Patient Education: Correct positioning, Modified ADL techniques, Progress toward Goal/Update tx plan, Purpose of tx/functional activities, Reviewed precautions, Rehab process, Transfer techniques Teaching Recipient: Patient, Significant Other Teaching Methods: Demonstration, Discussion Response to Teaching: Verbalize Understanding, Return Demonstration, Reinforcement Needed OT Short Term Goals Short Term Goals Time Frame: March 30, 2021 Eatin Oral hygiene: 5 Upper body dressin OT Ward Aide Goals Group Home Goals Time Frame: April 06, 2021 Eating (QC): 6 Oral Hygiene (QC): 5 Toileting Hygiene (QC): 4 Upper Body Dressing (QC): 5 Lower Body Dressing (QC): 3 (From bed level) On/Off Footwear (QC): 4 (With AE) Additional Goals: 1-Demonstrate ADL Tasks, 2-Verbalize Understanding, 3- ImproveStrength/Melva 1=Demonstrate adherence to instructed precautions during ADL tasks. 2=Patient will verbalize/demonstrate understanding of assistive devices/modifications for ADL. 3=Patient will improve strength/tolerance for activity to enable patient to perform ADL's. OT Education/Plan Problem List/Assessment Assessment: Decreased Activ Tolerance, Decreased UE Strength, Dependent Transfers, Impaired Bed Mobility, Impaired Funct Balance, Impaired I ADL's, Impaired Self-Care Skills, Restricted Funct UE ROM Discharge Recommendations Plan/Recommendations: Continue POC Therapy Discharge Recommendati: Home & Family, Post Acute OT Treatment Plan/Plan of Care Treatment,Training & Education: Yes Patient would benefit from OT for education, treatment and training to promote independence in ADL's, mobility, safety and/or upper extremity function for ADL's. Plan of Care: ADL Retraining, Functional Mobility, UE Funct Exercise/Act Treatment Duration: April 06, 2021 Frequency: 5 times per week Estimated Hrs Per Day: .25 hour per day Agreement: Yes Rehab Potential: Fair Time/GCodes Start Time: 14:50 Stop Time: 15:10 Total Time Billed (hr/min): 20 Billed Treatment Time 1, CARLO REDDY OT March 23, 2021 16:42
[2021-03-23] MEDS: DIAZEPAM 2 MG (VALIUM) TAB PO SCH (20:32)
[2021-03-23] MEDS: rOPINIRole 1 MG (REQUIP) TABLET PO SCH (20:33)
[2021-03-24] MEDS: RT-ALBUTEROL/IPRATROPIUM 3 ML (DUONEB) VIAL INH SCH ×6 (01:08→22:26)
[2021-03-24] MEDS: PIPERACILLIN/TAZOBACTAM (BULK) 4.5 GM in NS (IVPB) 100 ML IV SCH ×3 (03:00→19:50)
[2021-03-24 03:14] LABS: BASOPHILS % (AUTO) 0 % (0-10); EOSINOPHILS % (AUTO) 0 % (0-10); HEMATOCRIT 33 % (40-54); HEMOGLOBIN 10.4 g/dL (13.3-17.7); LYMPHOCYTES # (AUTO) 0.2 10^3/uL (1.0-4.0); LYMPHOCYTES % (AUTO) 3 % (12-44); MEAN CORPUSCULAR HEMOGLOBIN 28 pg (25-34); MEAN CORPUSCULAR HGB CONC 31 g/dL (32-36); MEAN CORPUSCULAR VOLUME 90 fL (80-99); MEAN PLATELET VOLUME 9.1 fL (9.0-12.2); MONOCYTES # (AUTO) 0.4 10^3/uL (0.0-1.0); MONOCYTES % (AUTO) 5 % (0-12); NEUTROPHILS # (AUTO) 7.1 10^3/uL (1.8-7.8); NEUTROPHILS % (AUTO) 89 % (42-75); PLATELET COUNT 112 10^3/uL (130-400)
[2021-03-24 03:38] LABS: BUN/CREATININE RATIO 20; CALCIUM 8.1 MG/DL (8.5-10.1); CARBON DIOXIDE 34 MMOL/L (21-32); CHLORIDE 97 MMOL/L (98-107); CREATININE SERUM 0.83 MG/DL (0.60-1.30); GFR ESTIMATED > 60; GLUCOSE 236 MG/DL (70-105); MAGNESIUM 2.2 MG/DL (1.6-2.4); PHOSPHORUS 3.5 MG/DL (2.3-4.7); POTASSIUM 4.5 MMOL/L (3.6-5.0); SODIUM 136 MMOL/L (135-145)
--- NOTE | 2021-03-24 03:48 | Pulmonary Progress Note ---
VENECIA BLANDON MED STUDENT 03/24/21 0348: Subjective Date Seen by a Provider: March 24, 2021 Time Seen by a Provider: 03:46 Subjective/Events-last exam Patient reports less SOB today. Still exertionally SOB when transferring to chair. Denies chest pain, fevers, nausea, diarrhea, and abd pain. Tolerating po intake well. Review of Systems General: No Chills, No Night Sweats HEENT: No Head Aches, No Visual Changes Pulmonary: Dyspnea; No Cough, No Pleuritic Chest Pain Cardiovascular: No: Chest Pain, Palpitations Gastrointestinal: No: Nausea, Vomiting Genitourinary: No Dysuria, No Frequency Musculoskeletal: No: neck pain, back pain Neurological: No: Incoordination, Change in speech, Confusion Sepsis Event Evaluation Height, Weight, BMI Height: 5'8.00" Weight: 255lbs. oz. 115.266633hi; 42.84 BMI Method:Stated Exam Exam Vital Signs Date Time Temp Pulse Resp B/P (MAP) Pulse Ox O2 Delivery O2 Flow Rate FiO2 03/24/21 01:08 96 NIV CPAP 15.00 03/24/21 01:00 62 03/24/21 00:00 36.4 NIV CPAP 15.00 03/23/21 23:59 94 NIV CPAP 15.00 03/23/21 23:00 67 144/81 (102) 99 Vapotherm 40.00 55.00 03/23/21 22:08 94 Vapotherm 40.00 55 03/23/21 22:00 75 141/71 (94) 96 Vapotherm 40.00 55.00 03/23/21 21:00 76 135/70 (91) 95 Vapotherm 40.00 55.00 03/23/21 20:00 Vapotherm 40.00 55 03/23/21 20:00 79 145/81 (102) 93 Vapotherm 40.00 55.00 03/23/21 19:00 82 143/79 (100) 95 Vapotherm 40.00 55.00 03/23/21 19:00 36.2 Vapotherm 40.00 55.00 03/23/21 19:00 84 03/23/21 18:37 95 Vapotherm 40.00 55 03/23/21 18:00 81 115/89 (98) 94 Vapotherm 40.00 55.00 03/23/21 17:00 83 139/99 (112) 91 Vapotherm 40.00 55.00 03/23/21 16:00 77 138/75 (96) 93 Vapotherm 40.00 55.00 03/23/21 15:46 Vapotherm 40.00 55 03/23/21 15:27 36.5 03/23/21 15:00 78 93 Vapotherm 40.00 55.00 03/23/21 14:21 95 Vapotherm 40.00 55 03/23/21 14:14 Vapotherm 40.00 55.00 03/23/21 14:00 78 96 Vapotherm 40.00 65.00 03/23/21 13:00 77 130/85 (100) 93 Vapotherm 40.00 65.00 03/23/21 12:33 79 03/23/21 12:00 85 126/89 (101) 92 Vapotherm 40.00 65.00 03/23/21 11:45 35.7 03/23/21 11:43 Vapotherm 40.00 65 03/23/21 11:00 84 128/72 (90) 90 Vapotherm 40.00 65.00 03/23/21 10:18 Vapotherm 40.00 65.00 03/23/21 10:09 95 Vapotherm 40.00 75 03/23/21 10:00 72 135/85 (102) 94 Vapotherm 40.00 75.00 03/23/21 09:00 75 131/82 (98) 94 Vapotherm 40.00 75.00 03/23/21 08:43 92 Vapotherm 40.00 75 03/23/21 08:11 36.1 03/23/21 08:00 84 109/103 (105) 95 Vapotherm 40.00 75.00 03/23/21 07:54 Vapotherm 40.00 75.00 03/23/21 07:00 77 150/95 (113) 90 Vapotherm 40.00 75.00 03/23/21 06:55 78 87 Vapotherm 40.00 75.00 03/23/21 06:48 77 03/23/21 06:42 95 Vapotherm 40.00 85 03/23/21 06:00 64 147/88 (107) 89 NIV CPAP 15.00 5/12/21 05:00 64 105/72 (83) 91 NIV CPAP 15.00 03/23/21 04:00 66 147/90 (109) 89 NIV CPAP 15.00 03/23/21 04:00 90 NIV CPAP 15.00 03/23/21 04:00 36.0 I & O 03/24/21 07:00 Intake Total 2100 ml Output Total 1100 ml Balance 1000 ml Height & Weight Height: 5'8.00" Weight: 255lbs. oz. 115.060984re; 42.84 BMI Method:Stated General Appearance: No Apparent Distress, Obese HEENT: PERRL/EOMI Neck: Full Range of Motion Respiratory: Chest Non Tender, No Accessory Muscle Use, No Respiratory Distress, Decreased Breath Sounds, Rhonci Cardiovascular: Regular Rate, Rhythm, Normal Peripheral Pulses Capillary Refill: Less Than 3 Seconds Peripheral Pulses: 1+ Dorsalis Pedis (R), 1+ Left Dors-Pedis (L); 2+ Radial Pulses (R), 2+ Radial Pulses (L) Gastrointestinal: normal bowel sounds, non tender, soft Extremity: Normal Capillary Refill, No Calf Tenderness Neurologic/Psychiatric: Alert, Oriented x3, Normal Mood/Affect Skin: Normal Color, Warm/Dry Lymphatic: No Adenopathy Results Lab Laboratory Tests 03/23/21 02:43 03/24/21 02:55 Assessment/Plan Assessment/Plan PNA with acute respiratory insufficiency -Continue Zosyn -Continue solumedrol 40 IV Q12 -Continue vaportherm, wean as tolerated -CPAP over night, bleed 02 in -Covid PCR and IGG AB negative -Resp panel negative -Encourage frequent cough and deep breathing -Incentive spirometer AF w/RVR -Cardiology following - converted to SR at 0300 on 5-10 Nausea, vomiting, and diarrhea- Resolved -Continue antiemetics PRN Anemia-Stable -Continue to monitor Thrombocytopenia-Stable -Continue to monitor CAD -Cardiology following History of central spinal cord syndrome resulting in chronic debility and weakness -PT and OT have seen DAISY -CPAP overnight, bleed 02 in Diabetes mellitus -SSI C ordered -Levemir 10 units ordered @[facility] Bipolar disorder -Continue depakote GI Prophylaxis -Continue protonix Anticoagulation -NAS Sullivan DO 03/24/21 0529: Assessment/Plan Assessment/Plan PNA with acute respiratory insufficiency -Continue to wean oxygen -Continue Zosyn -Continue solumedrol 40 IV Q12 -Continue vaportherm, wean as tolerated -CPAP over night, bleed 02 in -Covid PCR and IGG AB negative -Resp panel negative -Encourage frequent cough and deep breathing -Incentive spirometer Pulmonary edema -Lasix 40mg x 1 -monitor AF w/RVR -Cardiology following - converted to SR at 0300 on 5-10 Nausea, vomiting, and diarrhea- Resolved -Continue antiemetics PRN Anemia-Stable -Continue to monitor Thrombocytopenia-Stable -Continue to monitor CAD -Cardiology following History of central spinal cord syndrome resulting in chronic debility and weakness -PT and OT have seen DAISY -CPAP overnight, bleed 02 in Diabetes mellitus -SSI C ordered -Levemir 10 units ordered @[facility] Bipolar disorder -Continue depakote GI Prophylaxis -Continue protonix Anticoagulation -Eliquis Supervisory-Addendum Brief Verification & Attestation Participated in pt care: history, MDM, physical Personally performed: exam, history, MDM, supervision of care Care discussed with: Medical Student Procedures: n/a Results interpretation: Verified all documentation Verification and Attestation of Medical Student E/M Service A medical student performed and documented this service in my presence. I reviewed and verified all information documented by the medical student and made modifications to such information, when appropriate. I personally performed the physical exam and medical decision making. Nas Rodriguez, March 29, 2021,09:10 VENECIA BLANDON MED STUDENT March 24, 2021 03:48 NAS RODRIGUEZ DO March 24, 2021 05:29
[2021-03-24] MEDS: POTASSIUM CL 10MEQ/50ML IVPB 50 ML IV SCH (04:04)
[2021-03-24] MEDS: MAGNESIUM 1 GM/100 ML IVPB 100 ML IV SCH (04:04)
[2021-03-24] MEDS: KCL 20 MEQ TAB (K-DUR) PO SCH (04:04)
[2021-03-24] MEDS ORDERED: FUROSEMIDE 40 MG/4 ML INJ (LASIX) IVP ONE (05:30)
[2021-03-24] MEDS ORDERED: FUROSEMIDE 40 MG/4 ML INJ (LASIX) ONE (05:33)
[2021-03-24] MEDS: inSUlin ASPART (NovoLOG) 1 UNIT/0.01 ML (CHARGE PER UNIT) SC SCH ×4 (05:47→21:14)
--- NOTE | 2021-03-24 07:54 | Diagnostic Imaging Report ---
INDICATION: Dyspnea COMPARISON: 03/23 FINDINGS: Bilateral mixed interstitial and airspace infiltrates greater right not significantly changed. The upper limits heart size is stable. Blunting of the left angle likely small left effusion unchanged. IMPRESSION: No real change in probable left effusion and bilateral mixed interstitial and airspace disease edema versus pneumonia. Dictated by: Dictated on workstation # [id number]
--- NOTE | 2021-03-24 08:02 | Cardiology Progress Note ---
Subjective Date Seen by Provider: March 24, 2021 Time Seen by Provider: 08:00 Subjective/Events-last exam Patient is laying down in bed, still having some shortness of breath. No chest pain Review of Systems General: No Chills, No Night Sweats, No Fatigue, No Malaise, No Appetite, No Other HEENT: No Head Aches, No Visual Changes, No Eye Pain, No Ear Pain, No Dysphasi a, No Sinus Congestion, No Post Nasal Drip, No Sore Throat, No Other Pulmonary: No Dyspnea, No Cough, No Pleuritic Chest Pain, No Other Cardiovascular: No: Chest Pain, Palpitations, Orthopnea, Paroxysmal Noc. Dyspnea, Edema, Lt Headedness, Other Objective-Cardiology Exam Last Set of Vital Signs Vital Signs 03/21/21 03/24/21 03/24/21 03/24/21 18:00 06:00 06:29 07:30 Temp 36.0 Pulse 69 Resp 2 B/P (MAP) 147/92 (110) Pulse Ox 91 O2 Delivery Vapotherm O2 Flow Rate 20.00 FiO2 45 Capillary Refill : Less Than 3 Seconds I&O Intake and Output 03/24/21 00:00 Intake Total 2280 ml Output Total 1200 ml Balance 1080 ml Intake Oral 2040 ml IV Total 240 ml Output Urine Total 1200 ml # Voids 3 # Bowel Movements 3 General: Alert, Oriented X3, Moderate Distress (with any exertion) HEENT: Atraumatic, PERRLA Neck: Supple, No JVD, No Thyromegaly Lungs: Other (Right wheezing and crackles at the bases, increased work of breathing) Heart: Regular Rate, Normal S1, Normal S2, No Murmurs Abdomen: Normal Bowel Sounds, Soft, No Tenderness, No Masses Extremities: No Clubbing, Other (2+ pitting edema equal bilaterall) Skin: No Rashes Neuro: Normal Speech, Strength at 5/5 X4 Ext, Sensation Intact, Cranial Nerves 3-12 NL Psych/Mental Status: Mental Status NL, Mood NL Results Lab Laboratory Tests 03/24/21 02:55 A/P-Cardiology Admission Diagnosis Pneumonia Atrial flutter Hypertension Hyperlipidemia Assessment/Plan Pneumonia, shortness of breath, cute respiratory failure, maintained on Vapotherm, titrating slowly down, he is down to 60% FiO2. Managed by primary care team Paroxysmal atrial flutter, had history of arrhythmia in November 2019 while in [facility] and was started on amiodarone which was stopped recently. Admitted with atrial flutter and converted to sinus rhythm on Cardizem drip, currently off Cardizem, on Amiodarone, Eliquis, currently in SR. Will require evaluation for ablation for atrial flutter as an outpatient [id number] score of 3, yearly risk of stroke without oral anticoagulation at 3.2%, starting on Eliquis Coronary artery disease, history of multiple cardiac catheterization multiple interventions in the past, Cardiac catheterization done February 16, 2021 with severe stenosis in the prox right coronary artery with successful primary stenting using Marcia 3.5 x 18mm overlapping with an old stent in the mid RCA. Patent stent in the LAD, mild coronary artery disease otherwise. Maintained on ASA and Plavix Peripheral arterial disease, Angiogram was done on September 15, 2020 showing total occlusion of the left anterior tibial artery with successful balloon angioplasty with multiple wires and balloons with excellent results. On the right side anterior tibial artery was atretic and very small. The ulcer on his foot is improving. ISABELA continue to be nondiagnostic, TBI was better. ISABELA was done on October 20, 2020 was on the right side 1.34 and left side 1.45. TBI on the right side was 0.5 and on the left side 0.61, good waveforms was noted Congestive heart failure, chronic compensated left ventricular systolic dysfunction, ischemic cardiomyopathy, last echocardiogram was done in January 2021 showing normal LV size, EF 55 to 65%, grade 1 diastolic dysfunction, PA pressure 15 to 20 mmHg. Continue to monitor Status post respiratory failure. Mild elevation in troponin type II myocardial infarction secondary to hypoxemia in December 2019. Currently asymptomatic Hypotension, reporting history of hypotension, Coreg was stopped on March 08, 2021. Continue to monitor blood pressure Hyperlipidemia, lipid profile done in September 2020 showing total cholesterol 193, triglyceride 221, HDL 50, LDL 122. Continue to monitor Diabetes mellitus, followed and managed by primary care physician History of C-spine surgery done in November 2019. BMI 41, we discussed weight loss History of bipolar disorder. ALINA GREGG MD March 24, 2021 08:01
[2021-03-24] MEDS: CLOPIDOGREL 75 MG (PLAVIX) TABLET PO SCH (08:27)
[2021-03-24] MEDS: PANTOPRAZOLE 40 MG (PROTONIX) TAB PO SCH (08:27)
[2021-03-24] MEDS: ASPIRIN 81 MG CHEW (CHILDREN'S ASA) PO SCH (08:27)
[2021-03-24] MEDS: PREGABALIN 150 MG (LYRICA) CAPSULE PO SCH ×3 (08:27→20:55)
[2021-03-24] MEDS: SERTRALINE 100 MG (ZOLOFT) TAB PO SCH (08:28)
[2021-03-24] MEDS: DIVALPROEX 500 MG DELAYED RELEASE (DEPAKOTE) TAB PO SCH ×2 (08:28→20:52)
[2021-03-24] MEDS: APIXABAN 5 MG (ELIQUIS) TABLET PO SCH ×2 (08:28→20:53)
[2021-03-24] MEDS: TAMSULOSIN 0.4 MG (FLOMAX) CAP PO SCH (08:29)
[2021-03-24] MEDS: oxyCODONE/APAP 7.5-325 MG (PERCOCET 7.5) TABLET PO PRN ×3 (08:29→23:36)
[2021-03-24] MEDS: [UNRECOGNIZED DRUG - REMARK] PO SCH (08:50)
[2021-03-24] MEDS: methylPREDNISolone 40 MG/ML (Solu-MEDROL) VIAL IV SCH ×2 (09:39→20:52)
--- NOTE | 2021-03-24 10:39 | Physical Therapy Daily Note ---
PT Daily Note-Current Subjective Patient up in recliner and agrees to PT. Mental Status Patient Orientation: Normal For Age Attachments: Oxygen (vapotherm), IV Transfers SCALE: Activities may be completed with or without assistive devices. 8-Wvgdvddywo-jviejuw completes the activity by him/herself with no assistance from a helper. 5-Set-up or Clean-up Assistance-helper sets up or cleans up; patient completes activity. [place] assists only prior to or following the activity. 4-Supervision or Touching Assistance-helper provides verbal cues and/or touching/steadying and/or contact guard assistance as patient completes activity. Assistance may be provided throughout the activity or intermittently. 3-Partial/Moderate Assistance-helper does LESS THAN HALF the effort. [place] lifts, holds or supports trunk or limbs, but provides less than half the effort. 2-Substantial/Maximal Assistance-helper does MORE THAN HALF the effort. [place] lifts or holds trunk or limbs and provides more than half the effort. 5-Wevdbaxxn-idbgtf does ALL the effort. Patient does none of the effort to complete the activity. Or, the assistance of 2 or more helpers is required for the patient to complete the activity. If activity was not attempted, code reason: 7-Patient Refused. 9-Not Applicable-not attempted and the patient did not perform the activity before the current illness, exacerbation or injury. 10-Not Attempted due to Environmental Limitations-(lack of equipment, weather restraints, etc.). 88-Not Attempted due to Medical Conditions or Safety Concerns. Sit to Stand (QC): 4 (SBA-CGA for safety) Exercises Seated Therapy Exercises: Ankle pumps, Long arc quads, Hip flexion Seated Reps: 15 (2 sets) Standing: Marching (single LE 5 reps x 2 sets), Sit to Stand (x 3 sets), Weight shifts Assessment Patient's SAO2 decreases to low 80's with activity with quick recovery. Patient report he transfers only to power chair at home. PT Intermediate Goals Sales Department Supervisor Goals PT Intermediate Goals Time Frame: March 30, 2021 Roll Left & Right (QC): 6 Sit to Lying (QC): 6 Lying-Sitting on Side/Bed(QC): 6 Sit to Stand (QC): 5 Chair/Vad-iw-Gkcej Xfer(QC): 5 Walk 10 feet (QC): 4 PT Plan Treatment/Plan Treatment Plan: Continue Plan of Care Treatment Plan: Bed Mobility, Education, Functional Activity Melva, Functional Strength, Gait, Safety, Therapeutic Exercise, Transfers Treatment Duration: March 30, 2021 Frequency: 6 times per week Estimated Hrs Per Day: .25 hour per day Patient and/or Family Agrees t: Yes Time/GCodes Time In: 852 Time Out: 904 Total Billed Treatment Time: 12 Total Billed Treatment 1 visit EX 12 min ALBERTO LEVINE PT March 24, 2021 10:39
--- NOTE | 2021-03-24 13:50 | Occupational Ther Daily Note ---
OT Current Status-Daily Note Subjective Pt alert, lying in bed. Pt agrees to therapy. No c/o pain, coughing. Mental Status/Objective Patient Orientation: Person, Place, Time, Situation Attachments: IV, Oxygen, Telemetry ADL-Treatment Therapy Code Descriptions/Definitions Functional [place] Measure: 0=Not Assessed/NA 4=Minimal Assistance 1=Total Assistance 5=Supervision or Setup 2=Maximal Assistance 6=Modified [place] 3=Moderate Assistance 7=Complete IndependenceSCALE: Activities may be completed with or without assistive devices. 8-Oajjuaermn-hanavmo completes the activity by him/herself with no assistance from a helper. 5-Set-up or Clean-up Assistance-helper sets up or cleans up; patient completes activity. [place] assists only prior to or following the activity. 4-Supervision or Touching Assistance-helper provides verbal cues and/or touching/steadying and/or contact guard assistance as patient completes activity. Assistance may be provided throughout the activity or intermittently. 3-Partial/Moderate Assistance-helper does LESS THAN HALF the effort. [place] lifts, holds or supports trunk or limbs, but provides less than half the effort. 2-Substantial/Maximal Assistance-helper does MORE THAN HALF the effort. [place] lifts or holds trunk or limbs and provides more than half the effort. 8-Fwsbowqcx-nmdeua does ALL the effort. Patient does none of the effort to complete the activity. Or, the assistance of 2 or more helpers is required for the patient to complete the activity. If activity was not attempted, code reason: 7-Patient Refused. 9-Not Applicable-not attempted and the patient did not perform the activity before the current illness, exacerbation or injury. 10-Not Attempted due to Environmental Limitations-(lack of equipment, weather restraints, etc.). 88-Not Attempted due to Medical Conditions or Safety Concerns. Other Treatment Pt stated that he had just got back into bed after sitting for 3 hours. Pt able to complete 2 sets 10 reps of B shldr and bicep exercises to increase strength. Pt's L UE weak, unable to complete full ROM. Cue pt for pursed lip breathing during exercises to maintain 90% and above O2 levels. Built up handles left in pt's room for eating utensils. After therapy, pt lying in bed with call light/phone in reach. All needs met in room. OT Short Term Goals Short Term Goals Time Frame: March 30, 2021 Eatin Oral hygiene: 5 Upper body dressin OT Detention Goals Insurance Administrator Goals Time Frame: April 06, 2021 Eating (QC): 6 Oral Hygiene (QC): 5 Toileting Hygiene (QC): 4 Upper Body Dressing (QC): 5 Lower Body Dressing (QC): 3 (From bed level) On/Off Footwear (QC): 4 (With AE) Additional Goals: 1-Demonstrate ADL Tasks, 2-Verbalize Understanding, 3- ImproveStrength/Melva 1=Demonstrate adherence to instructed precautions during ADL tasks. 2=Patient will verbalize/demonstrate understanding of assistive devices/modifications for ADL. 3=Patient will improve strength/tolerance for activity to enable patient to perform ADL's. OT Education/Plan Problem List/Assessment Assessment: Decreased Activ Tolerance, Decreased UE Strength, Impaired Self- Care Skills, Restricted Funct UE ROM Discharge Recommendations Plan/Recommendations: Continue POC Treatment Plan/Plan of Care Patient would benefit from OT for education, treatment and training to promote independence in ADL's, mobility, safety and/or upper extremity function for ADL's. Plan of Care: ADL Retraining, Functional Mobility, UE Funct Exercise/Act Treatment Duration: April 06, 2021 Frequency: 5 times per week Estimated Hrs Per Day: .25 hour per day Agreement: Yes Rehab Potential: Fair Time/GCodes Start Time: 13:10 Stop Time: 13:30 Total Time Billed (hr/min): 20 Billed Treatment Time 1 visit-FA 1 (20 min) TEDDY HAWKINS March 24, 2021 13:50
--- NOTE | 2021-03-24 20:21 | Progress Note ---
Subjective Subjective/Events-last exam Patient feeling much better this AM. Sitting up in chair. Breathing more comfortably. Tolerating PO diet. Has soft BM yesterday. Review of Systems General: Fatigue Pulmonary: Dyspnea, Cough Cardiovascular: Edema; No: Chest Pain, Palpitations Gastrointestinal: No: Nausea, Vomiting, Abdominal Pain, Diarrhea, Constipation Neurological: Weakness, Incoordination Objective Exam Last Set of Vital Signs Vital Signs Date Time Temp Pulse Resp B/P (MAP) Pulse Ox O2 Delivery O2 Flow Rate FiO2 03/24/21 19:51 36.8 70 21 134/68 (90) 91 NIV CPAP 5.00 03/24/21 12:00 4 Capillary Refill : Less Than 3 Seconds I&O Intake and Output 03/23/21 23:59 Intake Total 2280 ml Output Total 1200 ml Balance 1080 ml Intake Oral 2040 ml IV Total 240 ml Output Urine Total 1200 ml # Voids 3 # Bowel Movements 3 General: Alert, Moderate Distress (with minimal activity) Neck: Supple, No Thyromegaly Lungs: Other (Diffuse wheezing bibasilar, no crackles, increased work of breathing with minimal exercise) Heart: Regular Rate, No Murmurs Abdomen: Normal Bowel Sounds, Soft, No Tenderness, No Masses Extremities: Other (1+ pitting edema bilaterally) Skin: No Rashes, No Breakdown Neuro: Normal Speech, Cranial Nerves 3-12 NL Results/Procedures Lab Laboratory Tests 03/24/21 02:55: White Blood Count 8.0, Red Blood Count 3.69L, Hemoglobin 10.4L, Hematocrit 33L, Mean Corpuscular Volume 90, Mean Corpuscular Hemoglobin 28, Mean Corpuscular Hemoglobin Concent 31L, Red Cell Distribution Width 16.2H, Platelet Count 112L, Mean Platelet Volume 9.1, Immature Granulocyte % (Auto) 4, Neutrophils (%) (Auto) 89H, Lymphocytes (%) (Auto) 3L, Monocytes (%) (Auto) 5, Eosinophils (%) (Auto) 0, Basophils (%) (Auto) 0, Neutrophils # (Auto) 7.1, Lymphocytes # (Auto) 0.2L, Monocytes # (Auto) 0.4, Eosinophils # (Auto) 0.0, Basophils # (Auto) 0.0, Immature Granulocyte # (Auto) 0.3H, Sodium Level 136, Potassium Level 4.5, Chloride Level 97L, Carbon Dioxide Level 34H, Anion Gap 5, Blood Urea Nitrogen 17, Creatinine 0.83, Estimat Glomerular Filtration Rate > 60, BUN/Creatinine Ratio 20, Glucose Level 236H, Calcium Level 8.1L, Phosphorus Level 3.5, Magnesium Level 2.2 03/24/21 10:24: Glucometer 203H 03/24/21 17:47: Glucometer 280H Microbiology 03/23/21 C. difficile GDH Antigen & Toxins - Final, Complete 03/21/21 Gram Stain - Final, Complete 03/21/21 Sputum Culture - Final, Complete Usual upper respiratory julia YEAST 03/19/21 Urine Culture - Final, Complete NO GROWTH 03/19/21 Blood Culture - Preliminary, Resulted No growth Assessment/Plan Assessment/Plan (1) Acute and chronic respiratory failure with hypoxia Assessment & Plan: 03/21: Now requiring vapotherm 40L FiO2 80%, will titrate as tolerated, MAT protocol, CTA to rule out PE due to acute decompensation in respiratory status 03/22: Dr Rodriguez managing, repeating viral panel today 03/23: Covid neg, c diff neg, Neg viral panel, Focus on IS and try sitting at the edge of the bed for meals, continue to titrate as tolerated 03/24: Titrating vapotherm today, will work on getting to NC today, continue IS/OOB (2) Acute on chronic heart failure with preserved ejection fraction Status: Acute Assessment & Plan: 03/21: Cardiology consulted and managing, Dr Rodriguez gave Bumex this AM due to increased fluid with CXR (3) Pneumonia Status: Acute Assessment & Plan: 03/21: Continue IV antibiotics Qualifiers: Qualified Codes: J18.9 - Pneumonia, unspecified organism (4) Atrial flutter with rapid ventricular response Status: Acute Assessment & Plan: 03/21: Now in SR, converted with Cardizem, Cardiology co nsulted and managing, appreciate recommendations (5) PVD (peripheral vascular disease) Status: Chronic (6) HLD (hyperlipidemia) Status: Chronic Qualifiers: Qualified Codes: E78.2 - Mixed hyperlipidemia (7) Uncontrolled diabetes mellitus Status: Chronic Assessment & Plan: 03/21: Accuchecks, SSI Qualifiers: Qualified Codes: E11.65 - Type 2 diabetes mellitus with hyperglycemia (8) DAISY on CPAP Status: Chronic Assessment & Plan: 03/21: bringing CPAP to hospital today (9) CAD (coronary artery disease) Status: Chronic Qualifiers: Qualified Codes: I25.10 - Atherosclerotic heart disease of [place] coronary artery without angina pectoris (10) BMI 45.0-49.9, adult Status: Chronic (11) DVT prophylaxis Status: Acute Assessment & Plan: - Continue OAC (12) Debility Status: Acute Assessment & Plan: 03/24: Placed IRF evaluation JO ANN WYATT MD March 24, 2021 20:21
[2021-03-24] MEDS: rOPINIRole 1 MG (REQUIP) TABLET PO SCH (20:52)
[2021-03-24] MEDS: DIAZEPAM 2 MG (VALIUM) TAB PO SCH (20:53)
[2021-03-25] MEDS: RT-ALBUTEROL/IPRATROPIUM 3 ML (DUONEB) VIAL INH SCH ×6 (01:49→22:08)
[2021-03-25] MEDS: PIPERACILLIN/TAZOBACTAM (BULK) 4.5 GM in NS (IVPB) 100 ML IV SCH ×3 (02:27→18:21)
[2021-03-25 04:54] LABS: BASOPHILS % (AUTO) 0 % (0-10); EOSINOPHILS % (AUTO) 0 % (0-10); HEMATOCRIT 37 % (40-54); HEMOGLOBIN 11.9 g/dL (13.3-17.7); LYMPHOCYTES # (AUTO) 0.3 10^3/uL (1.0-4.0); LYMPHOCYTES % (AUTO) 3 % (12-44); MEAN CORPUSCULAR HEMOGLOBIN 28 pg (25-34); MEAN CORPUSCULAR HGB CONC 32 g/dL (32-36); MEAN CORPUSCULAR VOLUME 89 fL (80-99); MEAN PLATELET VOLUME 9.3 fL (9.0-12.2); MONOCYTES # (AUTO) 0.3 10^3/uL (0.0-1.0); MONOCYTES % (AUTO) 4 % (0-12); NEUTROPHILS % (AUTO) 87 % (42-75); PLATELET COUNT 134 10^3/uL (130-400)
[2021-03-25 05:05] LABS: CHLORIDE 94 MMOL/L (98-107); SODIUM 137 MMOL/L (135-145)
[2021-03-25 05:06] LABS: CALCIUM 8.6 MG/DL (8.5-10.1)
[2021-03-25 05:07] LABS: GLUCOSE 237 MG/DL (70-105)
[2021-03-25 05:08] LABS: CARBON DIOXIDE 34 MMOL/L (21-32)
[2021-03-25 05:11] LABS: CREATININE SERUM 0.85 MG/DL (0.60-1.30); GFR ESTIMATED > 60
[2021-03-25 05:12] LABS: BUN/CREATININE RATIO 22
[2021-03-25 05:13] LABS: MAGNESIUM 1.9 MG/DL (1.6-2.4)
[2021-03-25] MEDS: inSUlin ASPART (NovoLOG) 1 UNIT/0.01 ML (CHARGE PER UNIT) SC SCH ×4 (05:43→20:36)
[2021-03-25] MEDS: oxyCODONE/APAP 7.5-325 MG (PERCOCET 7.5) TABLET PO PRN ×3 (05:43→21:46)
[2021-03-25] MEDS: APIXABAN 5 MG (ELIQUIS) TABLET PO SCH ×2 (08:26→20:34)
[2021-03-25] MEDS: PREGABALIN 150 MG (LYRICA) CAPSULE PO SCH ×3 (08:26→20:35)
[2021-03-25] MEDS: CLOPIDOGREL 75 MG (PLAVIX) TABLET PO SCH (08:26)
[2021-03-25] MEDS: [UNRECOGNIZED DRUG - REMARK] PO SCH (08:26)
[2021-03-25] MEDS: ASPIRIN 81 MG CHEW (CHILDREN'S ASA) PO SCH (08:26)
[2021-03-25] MEDS: methylPREDNISolone 40 MG/ML (Solu-MEDROL) VIAL IV SCH ×2 (08:26→20:34)
[2021-03-25] MEDS: TAMSULOSIN 0.4 MG (FLOMAX) CAP PO SCH (08:26)
[2021-03-25] MEDS: PANTOPRAZOLE 40 MG (PROTONIX) TAB PO SCH (08:26)
[2021-03-25] MEDS: SERTRALINE 100 MG (ZOLOFT) TAB PO SCH (08:26)
[2021-03-25] MEDS: DIVALPROEX 500 MG DELAYED RELEASE (DEPAKOTE) TAB PO SCH ×2 (08:26→20:35)
--- NOTE | 2021-03-25 08:53 | Cardiology Progress Note ---
Subjective Date Seen by Provider: March 25, 2021 Time Seen by Provider: 08:52 Subjective/Events-last exam Patient was seen at bedside, laying down comfortably, feeling better, on 4 L nasal cannula Review of Systems General: No Chills, No Night Sweats, No Fatigue, No Malaise, No Appetite, No Other HEENT: No Head Aches, No Visual Changes, No Eye Pain, No Ear Pain, No Dy sphasia, No Sinus Congestion, No Post Nasal Drip, No Sore Throat, No Other Pulmonary: Dyspnea; No Cough, No Pleuritic Chest Pain, No Other Cardiovascular: No: Chest Pain, Palpitations, Orthopnea, Paroxysmal Noc. Dyspnea, Edema, Lt Headedness, Other Objective-Cardiology Exam Last Set of Vital Signs Vital Signs 03/24/21 03/25/21 03/25/21 12:00 03:34 06:38 Temp 36.3 Pulse 64 Resp 16 B/P (MAP) 154/73 (100) Pulse Ox 93 O2 Delivery High Flow N/C O2 Flow Rate 5.00 FiO2 4 Capillary Refill : Less Than 3 Seconds I&O Intake and Output 03/25/21 00:00 Intake Total 2090 ml Output Total 3475 ml Balance -1385 ml Intake Oral 1970 ml IV Total 120 ml Output Urine Total 3475 ml # Voids 3 General: Alert, Oriented X3, Cooperative HEENT: Atraumatic, PERRLA Neck: Supple, No JVD, No Thyromegaly Lungs: Clear to Auscultation, Normal Air Movement Heart: Regular Rate, Normal S1, Normal S2, No Murmurs Abdomen: Normal Bowel Sounds, Soft, No Tenderness, No Masses Extremities: No Clubbing, No Cyanosis, Other (1+ pitting edema bilaterally) Skin: No Rashes, No Breakdown Neuro: Normal Speech, Cranial Nerves 3-12 NL Psych/Mental Status: Mental Status NL, Mood NL Results Lab Laboratory Tests 03/25/21 04:44 A/P-Cardiology Admission Diagnosis Pneumonia Atrial flutter Hypertension Hyperlipidemia Assessment/Plan Pneumonia, shortness of breath, status post acute respiratory failure, improving at this time, was on Vapotherm, currently on 4 L nasal cannula, managed by medical team. Paroxysmal atrial flutter, had history of arrhythmia in November 2019 while in [facility] and was started on amiodarone which was stopped recently. Admitted with atrial flutter and converted to sinus rhythm on Cardizem drip, currently off Cardizem, on Amiodarone, Eliquis, currently in SR. Will require evaluation for ablation for atrial flutter as an outpatient [id number] score of 3, yearly risk of stroke without oral anticoagulation at 3.2%, started on Eliquis Coronary artery disease, history of multiple cardiac catheterization multiple interventions in the past, Cardiac catheterization done February 16, 2021 with severe stenosis in the prox right coronary artery with successful primary stenting using Marcia 3.5 x 18mm overlapping with an old stent in the mid RCA. Patent stent in the LAD, mild coronary artery disease otherwise. Maintained on ASA and Plavix Peripheral arterial disease, Angiogram was done on September 15, 2020 showing total occlusion of the left anterior tibial artery with successful balloon angioplasty with multiple wires and balloons with excellent results. On the right side anterior tibial artery was atretic and very small. The ulcer on his foot is improving. ISABELA continue to be nondiagnostic, TBI was better. ISABELA was done on October 20, 2020 was on the right side 1.34 and left side 1.45. TBI on the right side was 0.5 and on the left side 0.61, good waveforms was noted Congestive heart failure, chronic compensated left ventricular systolic dysfunction, ischemic cardiomyopathy, last echocardiogram was done in January 2021 showing normal LV size, EF 55 to 65%, grade 1 diastolic dysfunction, PA pressure 15 to 20 mmHg. Continue to monitor Status post respiratory failure. Mild elevation in troponin type II myocardial infarction secondary to hypoxemia in December 2019. Currently asymptomatic Hypotension, reporting history of hypotension, Coreg was stopped on March 08, 2021. Continue to monitor blood pressure Hyperlipidemia, lipid profile done in September 2020 showing total cholesterol 193, triglyceride 221, HDL 50, LDL 122. Continue to monitor Diabetes mellitus, followed and managed by primary care physician History of C-spine surgery done in November 2019. BMI 41, we discussed weight loss History of bipolar disorder. ALINA GREGG MD March 25, 2021 08:53
--- NOTE | 2021-03-25 12:50 | Occupational Ther Daily Note ---
OT Current Status-Daily Note Subjective Pt AxO, no pain present at this time in supine in bed. Agrees to tx. States got from chair to bed ~45 min ago after sitting in chair 3 hours. Agrees to chair and ther ex. Mental Status/Objective Patient Orientation: Person, Place, Situation, Normal For Age Attachments: Oxygen ADL-Treatment Therapy Code Descriptions/Definitions Functional [place] Measure: 0=Not Assessed/NA 4=Minimal Assistance 1=Total Assistance 5=Supervision or Setup 2=Maximal Assistance 6=Modified [place] 3=Moderate Assistance 7=Complete IndependenceSCALE: Activities may be completed with or without assistive devices. 2-Buhyceygks-kgvgjaa completes the activity by him/herself with no assistance from a helper. 5-Set-up or Clean-up Assistance-helper sets up or cleans up; patient completes activity. [place] assists only prior to or following the activity. 4-Supervision or Touching Assistance-helper provides verbal cues and/or touching/steadying and/or contact guard assistance as patient completes activity. Assistance may be provided throughout the activity or intermittently. 3-Partial/Moderate Assistance-helper does LESS THAN HALF the effort. [place] lifts, holds or supports trunk or limbs, but provides less than half the effort. 2-Substantial/Maximal Assistance-helper does MORE THAN HALF the effort. [place] lifts or holds trunk or limbs and provides more than half the effort. 5-Cpsdgxelu-phpvuw does ALL the effort. Patient does none of the effort to complete the activity. Or, the assistance of 2 or more helpers is required for the patient to complete the activity. If activity was not attempted, code reason: 7-Patient Refused. 9-Not Applicable-not attempted and the patient did not perform the activity before the current illness, exacerbation or injury. 10-Not Attempted due to Environmental Limitations-(lack of equipment, weather restraints, etc.). 88-Not Attempted due to Medical Conditions or Safety Concerns. Eating (QC): 6 Other Treatment Completed feeding with IND. Supine to sit with min A. Sits EOB, stands with SBA. Ambulates to chair CGA. Sits with control. Pt completes 10 reps of the following ex with theraband with modifications as needed: shoulder abduction, shoulder flexion, shoulder external rotation. Educated on use of water bottles for full ROM due to decreased strength/ tension on band. Pt has limited LUE shoulder flexion strength, completes theraband to ~90*. Pt left in chair with all needs met, call light in reach. Education OT Patient Education: Correct positioning, Exercise program, Home exercise program, Safety issues, Transfer techniques Teaching Recipient: Patient Teaching Methods: Demonstration, Discussion Response to Teaching: Verbalize Understanding, Return Demonstration OT Short Term Goals Short Term Goals Time Frame: March 30, 2021 Eatin Oral hygiene: 5 Upper body dressin OT Skilled Nursing Goals [place] Hand Goals Time Frame: April 06, 2021 Eating (QC): 6 Oral Hygiene (QC): 5 Toileting Hygiene (QC): 4 Upper Body Dressing (QC): 5 Lower Body Dressing (QC): 3 (From bed level) On/Off Footwear (QC): 4 (With AE) Additional Goals: 1-Demonstrate ADL Tasks, 2-Verbalize Understanding, 3- ImproveStrength/Melva 1=Demonstrate adherence to instructed precautions during ADL tasks. 2=Patient will verbalize/demonstrate understanding of assistive devices/modifications for ADL. 3=Patient will improve strength/tolerance for activity to enable patient to perform ADL's. OT Education/Plan Problem List/Assessment Assessment: Decreased Activ Tolerance, Decreased UE Strength, Impaired Bed Mobility, Impaired Funct Balance, Impaired I ADL's, Impaired Self-Care Skills Discharge Recommendations Plan/Recommendations: Continue POC Therapy Discharge Recommendati: Home & Family, Post Acute OT Treatment Plan/Plan of Care Treatment,Training & Education: Yes Patient would benefit from OT for education, treatment and training to promote independence in ADL's, mobility, safety and/or upper extremity function for ADL's. Plan of Care: ADL Retraining, Functional Mobility, UE Funct Exercise/Act Treatment Duration: April 06, 2021 Frequency: 5 times per week Estimated Hrs Per Day: .25 hour per day Agreement: Yes Rehab Potential: Fair Time/GCodes Start Time: 11:30 Stop Time: 11:45 Total Time Billed (hr/min): 15 Billed Treatment Time 1, EX (15) STEPAN SALEEM OTR March 25, 2021 12:50
--- NOTE | 2021-03-25 14:20 | Progress Note ---
Subjective Subjective/Events-last exam Patient feeling much better this AM. Sitting up in chair on NC. Tolerating PO diet. Able to shower this AM. Review of Systems General: Fatigue, Malaise Pulmonary: Dyspnea, Cough Cardiovascular: No: Chest Pain, Palpitations Gastrointestinal: No: Nausea, Vomiting, Abdominal Pain, Diarrhea, Constipation Genitourinary: No Dysuria, No Frequency, No Hematuria Neurological: Weakness, Incoordination Objective Exam Last Set of Vital Signs Vital Signs Date Time Temp Pulse Resp B/P (MAP) Pulse Ox O2 Delivery O2 Flow Rate FiO2 03/25/21 13:50 90 High Flow N/C 5.00 03/25/21 09:20 35.8 76 20 149/72 (97) 03/25/21 08:00 4 Capillary Refill : Less Than 3 Seconds I&O Intake and Output 03/25/21 00:00 Intake Total 2090 ml Output Total 3475 ml Balance -1385 ml Intake Oral 1970 ml IV Total 120 ml Output Urine Total 3475 ml # Voids 3 General: Alert, Oriented X3, No Acute Distress Lungs: Other (bibasilar wheezing, normal work of breathing) Abdomen: Normal Bowel Sounds, Soft, No Tenderness Extremities: Other (1+ pitting edema) Neuro: Normal Speech, Sensation Intact, Cranial Nerves 3-12 NL Psych/Mental Status: Mental Status NL, Mood NL Results/Procedures Lab Laboratory Tests 03/24/21 17:47: Glucometer 280H 03/24/21 21:12: Glucometer 183H 03/25/21 04:44: White Blood Count 8.0, Red Blood Count 4.19L, Hemoglobin 11.9L, Hematocrit 37L, Mean Corpuscular Volume 89, Mean Corpuscular Hemoglobin 28, Mean Corpuscular Hemoglobin Concent 32, Red Cell Distribution Width 16.2H, Platelet Count 134, Mean Platelet Volume 9.3, Immature Granulocyte % (Auto) 5, Neutrophils (%) (Auto) 87H, Lymphocytes (%) (Auto) 3L, Monocytes (%) (Auto) 4, Eosinophils (%) (Auto) 0, Basophils (%) (Auto) 0, Neutrophils # (Auto) 7.0, Lymphocytes # (Auto) 0.3L, Monocytes # (Auto) 0.3, Eosinophils # (Auto) 0.0, Basophils # (Auto) 0.0, Immature Granulocyte # (Auto) 0.4H, Sodium Level 137, Potassium Level 5.0, Chloride Level 94L, Carbon Dioxide Level 34H, Anion Gap 9, Blood Urea Nitrogen 19H, Creatinine 0.85, Estimat Glomerular Filtration Rate > 60, BUN/Creatinine Ratio 22, Glucose Level 237H, Calcium Level 8.6, Phosphorus Level 4.0, Magnesium Level 1.9 03/25/21 11:22: Glucometer 178H Microbiology 03/23/21 C. difficile GDH Antigen & Toxins - Final, Complete 03/21/21 Gram Stain - Final, Complete 03/21/21 Sputum Culture - Final, Complete Usual upper respiratory julia YEAST 03/19/21 Urine Culture - Final, Complete NO GROWTH 03/19/21 Blood Culture - Final, Complete No growth Assessment/Plan Assessment/Plan (1) Acute and chronic respiratory failure with hypoxia Assessment & Plan: 03/21: Now requiring vapotherm 40L FiO2 80%, will titrate as tolerated, MAT protocol, CTA to rule out PE due to acute decompensation in respiratory status 03/22: Dr Rodriguez managing, repeating viral panel today 03/23: Covid neg, c diff neg, Neg viral panel, Focus on IS and try sitting at the edge of the bed for meals, continue to titrate as tolerated 03/24: Titrating vapotherm today, will work on getting to NC today, continue IS/OOB 03/25: NC, will continue to titrate as tolerated (2) Acute on chronic heart failure with preserved ejection fraction Status: Acute Assessment & Plan: 03/21: Cardiology consulted and managing, Dr Rodriguez gave Bumex this AM due to increased fluid with CXR (3) Pneumonia Status: Acute Assessment & Plan: 03/21: Continue IV antibiotics Qualifiers: Qualified Codes: J18.9 - Pneumonia, unspecified organism (4) Atrial flutter with rapid ventricular response Status: Acute Assessment & Plan: 03/21: Now in SR, converted with Cardizem, Cardiology consulted and managing, appreciate recommendations (5) PVD (peripheral vascular disease) Status: Chronic (6) HLD (hyperlipidemia) Status: Chronic Qualifiers: Qualified Codes: E78.2 - Mixed hyperlipidemia (7) Uncontrolled diabetes mellitus Status: Chronic Assessment & Plan: 03/21: Accuchecks, SSI Qualifiers: Qualified Codes: E11.65 - Type 2 diabetes mellitus with hyperglycemia (8) DAISY on CPAP Status: Chronic Assessment & Plan: 03/21: bringing CPAP to hospital today (9) CAD (coronary artery disease) Status: Chronic Qualifiers: Qualified Codes: I25.10 - Atherosclerotic heart disease of [place] coronary artery without angina pectoris (10) BMI 45.0-49.9, adult Status: Chronic (11) DVT prophylaxis Status: Acute Assessment & Plan: - Continue OAC (12) Debility Status: Acute Assessment & Plan: 03/24: Placed IRF evaluation JO ANN WYATT MD March 25, 2021 14:20
--- NOTE | 2021-03-25 14:59 | Physical Therapy Daily Note ---
PT Daily Note-Current Subjective Patient states, "I don't walk at all. I just use my power chair." Agrees to exercises. Mental Status Patient Orientation: Normal For Age Attachments: Oxygen, IV Transfers SCALE: Activities may be completed with or without assistive devices. 2-Aexkeyzikh-locfxgo completes the activity by him/herself with no assistance from a helper. 5-Set-up or Clean-up Assistance-helper sets up or cleans up; patient completes activity. [place] assists only prior to or following the activity. 4-Supervision or Touching Assistance-helper provides verbal cues and/or touching/steadying and/or contact guard assistance as patient completes activity. Assistance may be provided throughout the activity or intermittently. 3-Partial/Moderate Assistance-helper does LESS THAN HALF the effort. [place] lifts, holds or supports trunk or limbs, but provides less than half the effort. 2-Substantial/Maximal Assistance-helper does MORE THAN HALF the effort. [place] lifts or holds trunk or limbs and provides more than half the effort. 4-Tpwwulprg-arvmgn does ALL the effort. Patient does none of the effort to complete the activity. Or, the assistance of 2 or more helpers is required for the patient to complete the activity. If activity was not attempted, code reason: 7-Patient Refused. 9-Not Applicable-not attempted and the patient did not perform the activity before the current illness, exacerbation or injury. 10-Not Attempted due to Environmental Limitations-(lack of equipment, weather restraints, etc.). 88-Not Attempted due to Medical Conditions or Safety Concerns. Sit to Stand (QC): 4 Gait Training Does the Patient Walk?: No and Walking Goal NOT indicated Exercises Seated Therapy Exercises: Ankle pumps, Long arc quads, Hip flexion Seated Reps: 15 (2 sets) Standing: Sit to Stand Standing Reps: 3 Assessment Patient fatigues and ceases treatment. Patient remains up in recliner with needs met. Patient tolerates minimal activity. PT Dial [place]her Goals Mcfp Goals PT Dial [place] Goals Time Frame: March 30, 2021 Roll Left & Right (QC): 6 Sit to Lying (QC): 6 Lying-Sitting on Side/Bed(QC): 6 Sit to Stand (QC): 5 Chair/Cic-wx-Wvjcp Xfer(QC): 5 Walk 10 feet (QC): 4 PT Plan Treatment/Plan Treatment Plan: Continue Plan of Care Treatment Plan: Bed Mobility, Education, Functional Activity Melva, Functional Strength, Gait, Safety, Therapeutic Exercise, Transfers Treatment Duration: March 30, 2021 Frequency: 6 times per week Estimated Hrs Per Day: .25 hour per day Patient and/or Family Agrees t: Yes Time/GCodes Time In: 1308 Time Out: 1318 Total Billed Treatment Time: 10 Total Billed Treatment 1 visit EX 10 min ALBERTO LEVINE PT March 25, 2021 14:59
[2021-03-25] MEDS: DIAZEPAM 2 MG (VALIUM) TAB PO SCH (20:34)
[2021-03-25] MEDS: rOPINIRole 1 MG (REQUIP) TABLET PO SCH (20:35)
[2021-03-26] MEDS: RT-ALBUTEROL/IPRATROPIUM 3 ML (DUONEB) VIAL INH SCH ×6 (02:09→22:07)
[2021-03-26] MEDS: PIPERACILLIN/TAZOBACTAM (BULK) 4.5 GM in NS (IVPB) 100 ML IV SCH ×2 (03:56→11:09)
[2021-03-26 05:39] LABS: BASOPHILS % (AUTO) 0 % (0-10); EOSINOPHILS % (AUTO) 0 % (0-10); HEMATOCRIT 37 % (40-54); HEMOGLOBIN 11.9 g/dL (13.3-17.7); LYMPHOCYTES # (AUTO) 0.2 10^3/uL (1.0-4.0); LYMPHOCYTES % (AUTO) 3 % (12-44); MEAN CORPUSCULAR HEMOGLOBIN 28 pg (25-34); MEAN CORPUSCULAR HGB CONC 32 g/dL (32-36); MEAN CORPUSCULAR VOLUME 88 fL (80-99); MEAN PLATELET VOLUME 9.3 fL (9.0-12.2); MONOCYTES # (AUTO) 0.4 10^3/uL (0.0-1.0); MONOCYTES % (AUTO) 5 % (0-12); NEUTROPHILS # (AUTO) 6.8 10^3/uL (1.8-7.8); NEUTROPHILS % (AUTO) 87 % (42-75); PLATELET COUNT 138 10^3/uL (130-400); WHITE BLOOD COUNT 7.8 10^3/uL (4.3-11.0)
[2021-03-26 06:04] LABS: CHLORIDE 96 MMOL/L (98-107); SODIUM 137 MMOL/L (135-145)
[2021-03-26 06:05] LABS: CALCIUM 8.4 MG/DL (8.5-10.1)
[2021-03-26 06:06] LABS: GLUCOSE 276 MG/DL (70-105)
[2021-03-26 06:07] LABS: CARBON DIOXIDE 31 MMOL/L (21-32)
[2021-03-26 06:09] LABS: CREATININE SERUM 0.87 MG/DL (0.60-1.30); GFR ESTIMATED > 60; PHOSPHORUS 4.1 MG/DL (2.3-4.7)
[2021-03-26 06:10] LABS: BUN/CREATININE RATIO 23
[2021-03-26] MEDS: inSUlin ASPART (NovoLOG) 1 UNIT/0.01 ML (CHARGE PER UNIT) SC SCH ×4 (06:17→21:39)
[2021-03-26] MEDS: oxyCODONE/APAP 7.5-325 MG (PERCOCET 7.5) TABLET PO PRN ×3 (06:18→21:39)
[2021-03-26] MEDS: methylPREDNISolone 40 MG/ML (Solu-MEDROL) VIAL IV SCH (08:39)
[2021-03-26] MEDS: [UNRECOGNIZED DRUG - REMARK] PO SCH (08:39)
[2021-03-26] MEDS: CLOPIDOGREL 75 MG (PLAVIX) TABLET PO SCH (08:40)
[2021-03-26] MEDS: PREGABALIN 150 MG (LYRICA) CAPSULE PO SCH ×3 (08:40→21:38)
[2021-03-26] MEDS: DIVALPROEX 500 MG DELAYED RELEASE (DEPAKOTE) TAB PO SCH ×2 (08:40→21:38)
[2021-03-26] MEDS: ASPIRIN 81 MG CHEW (CHILDREN'S ASA) PO SCH (08:40)
[2021-03-26] MEDS: SERTRALINE 100 MG (ZOLOFT) TAB PO SCH (08:40)
[2021-03-26] MEDS: APIXABAN 5 MG (ELIQUIS) TABLET PO SCH ×2 (08:40→21:39)
[2021-03-26] MEDS: TAMSULOSIN 0.4 MG (FLOMAX) CAP PO SCH (08:40)
[2021-03-26] MEDS: PANTOPRAZOLE 40 MG (PROTONIX) TAB PO SCH (08:40)
--- NOTE | 2021-03-26 11:26 | Physical Therapy Progress Note ---
Therapy Progress Note Patient refused treatment today secondary to eating lunch. SHIKHA BARRIOS PT March 26, 2021 11:26
--- NOTE | 2021-03-26 11:43 | Progress Note - Hospitalist ---
Subjective HPI/CC On Admission Date Seen by Provider: March 26, 2021 Time Seen by Provider: 10:30 CC: PNA HPI: This is a 55yoWM clinic patient of [facility] known to me from prior IRF stay in 2019 s/p septic shock episode requiring aggressive rehab who now presents to the ER with hypoxia and infiltrates on CXR following two teeth extraction earlier this week. He also just completed left foot wound care with Dr Mock on Sunday. I have reconciled home meds and restarted all of them. Patient will be placed in CSD and Cardiology will be consulted. Subjective/Events-last exam Patient is sitting up in the chair and has decided that he cannot go to inpatient rehab because he cannot do 3 hours of activity. He requests to go home where he has a bariatric bed and over head trapeze however he does realize he will have to go home on oxygen and breathing treatments. He has a that helps care for him who can provide structure in terms of his medications and oxygenation. He said he is better equipped to stay home with his electric wheelchair and with his set up that he has got because of his spinal stenosis and would prefer to go home as soon as possible. We discussed that Sunday would be the best in terms of discharge planning and the ability to get him set up for things at home and he can continue physical therapy here until then. Day as his last dose of antibiotics will change him to oral steroids from IV steroids Review of Systems Neurological: Weakness Objective Exam Vital Signs Vital Signs Date Time Temp Pulse Resp B/P (MAP) Pulse Ox O2 Delivery O2 Flow Rate FiO2 03/26/21 11:04 91 High Flow N/C 4.00 03/26/21 08:07 35.8 72 20 134/82 (99) 03/25/21 08:00 4 Capillary Refill : Less Than 3 Seconds General Appearance: WD/WN, Obese Neck: Supple Respiratory: No Accessory Muscle Use, No Respiratory Distress, Decreased Breath Sounds Cardiovascular: Systolic Murmur, Irregularly Irregular Gastrointestinal: Soft Rectal: Deferred Extremity: Pedal Edema Neurologic/Psychiatric: Alert, Oriented x3, No Motor/Sensory Deficits, Normal Mood/Affect Results/Procedures Lab Laboratory Tests 03/26/21 05:32 Patient resulted labs reviewed. Assessment/Plan Assessment and Plan Assess & Plan/Chief Complaint Pneumonia A. fib flutter Spinal stenosis with previous disability CHF with preserved ejection fraction De-Conditioning and weakness-acute on chronic Hypoxia now oxygen requiring Obstructive sleep apnea will probably need O2 now Plan for discharge on oxygen on Sunday EMILY KERNS MD March 26, 2021 11:43
[2021-03-26] MEDS ORDERED: predniSONE 20 MG TAB PO SCH (12:00)
[2021-03-26] MEDS: DIAZEPAM 2 MG (VALIUM) TAB PO SCH (19:19)
[2021-03-26] MEDS: rOPINIRole 1 MG (REQUIP) TABLET PO SCH (21:39)
[2021-03-27] MEDS: RT-ALBUTEROL/IPRATROPIUM 3 ML (DUONEB) VIAL INH SCH ×4 (02:34→20:58)
[2021-03-27] MEDS: oxyCODONE/APAP 7.5-325 MG (PERCOCET 7.5) TABLET PO PRN ×3 (04:55→21:11)
[2021-03-27 05:14] LABS: BASOPHILS % (AUTO) 0 % (0-10); EOSINOPHILS % (AUTO) 0 % (0-10); HEMATOCRIT 39 % (40-54); HEMOGLOBIN 12.4 g/dL (13.3-17.7); LYMPHOCYTES # (AUTO) 0.9 10^3/uL (1.0-4.0); LYMPHOCYTES % (AUTO) 11 % (12-44); MEAN CORPUSCULAR HEMOGLOBIN 28 pg (25-34); MEAN CORPUSCULAR HGB CONC 32 g/dL (32-36); MEAN CORPUSCULAR VOLUME 89 fL (80-99); MEAN PLATELET VOLUME 9.1 fL (9.0-12.2); MONOCYTES # (AUTO) 0.5 10^3/uL (0.0-1.0); MONOCYTES % (AUTO) 6 % (0-12); NEUTROPHILS # (AUTO) 6.5 10^3/uL (1.8-7.8); NEUTROPHILS % (AUTO) 78 % (42-75); PLATELET COUNT 162 10^3/uL (130-400); WHITE BLOOD COUNT 8.3 10^3/uL (4.3-11.0)
[2021-03-27 05:26] LABS: CHLORIDE 98 MMOL/L (98-107); POTASSIUM 4.9 MMOL/L (3.6-5.0); SODIUM 138 MMOL/L (135-145)
[2021-03-27 05:28] LABS: CALCIUM 8.8 MG/DL (8.5-10.1); GLUCOSE 181 MG/DL (70-105)
[2021-03-27 05:30] LABS: CARBON DIOXIDE 30 MMOL/L (21-32)
[2021-03-27 05:32] LABS: CREATININE SERUM 0.89 MG/DL (0.60-1.30); GFR ESTIMATED > 60
[2021-03-27 05:33] LABS: BUN/CREATININE RATIO 20
[2021-03-27] MEDS: predniSONE 20 MG TAB PO SCH (06:26)
[2021-03-27] MEDS: inSUlin ASPART (NovoLOG) 1 UNIT/0.01 ML (CHARGE PER UNIT) SC SCH ×4 (06:27→21:12)
[2021-03-27] MEDS: ASPIRIN 81 MG CHEW (CHILDREN'S ASA) PO SCH (08:51)
[2021-03-27] MEDS: DIVALPROEX 500 MG DELAYED RELEASE (DEPAKOTE) TAB PO SCH ×2 (08:51→21:11)
[2021-03-27] MEDS: [UNRECOGNIZED DRUG - REMARK] PO SCH (08:51)
[2021-03-27] MEDS: PANTOPRAZOLE 40 MG (PROTONIX) TAB PO SCH (08:51)
[2021-03-27] MEDS: SERTRALINE 100 MG (ZOLOFT) TAB PO SCH (08:51)
[2021-03-27] MEDS: TAMSULOSIN 0.4 MG (FLOMAX) CAP PO SCH (08:52)
[2021-03-27] MEDS: PREGABALIN 150 MG (LYRICA) CAPSULE PO SCH ×3 (08:52→21:11)
[2021-03-27] MEDS: CLOPIDOGREL 75 MG (PLAVIX) TABLET PO SCH (08:52)
[2021-03-27] MEDS: APIXABAN 5 MG (ELIQUIS) TABLET PO SCH ×2 (08:53→21:11)
--- NOTE | 2021-03-27 13:13 | Progress Note - Hospitalist ---
Subjective HPI/CC On Admission Date Seen by Provider: March 27, 2021 Time Seen by Provider: 12:00 CC: PNA HPI: This is a 55yoWM clinic patient of [facility] known to me from prior IRF stay in 2019 s/p septic shock episode requiring aggressive rehab who now presents to the ER with hypoxia and infiltrates on CXR following two teeth extraction earlier this week. He also just completed left foot wound care with Dr Mock on Sunday. I have reconciled home meds and restarted all of them. Patient will be placed in CSD and Cardiology will be consulted. Subjective/Events-last exam Patient feels even better today. We discussed his plans to be discharged home tomorrow. He will needed 2 assist stand by to get him into his SUV. He will need to have home O2 and a pulmonaide machine for pulmonary toilet. He is in a good humor and has no complaints today. Objective Exam Vital Signs Vital Signs Date Time Temp Pulse Resp B/P (MAP) Pulse Ox O2 Delivery O2 Flow Rate FiO2 03/28/21 07:02 92 Nasal Cannula 2.00 03/27/21 23:31 36.4 71 20 122/74 (90) 03/25/21 08:00 4 Capillary Refill : Less Than 3 Seconds General Appearance: No Apparent Distress, Obese HEENT: Normal ENT Inspection Neck: Supple Respiratory: Lungs Clear, Normal Breath Sounds, No Accessory Muscle Use, No Respiratory Distress Cardiovascular: Regular Rate, Rhythm, No Gallop, No JVD, No Murmur Gastrointestinal: Normal Bowel Sounds, Non Tender, Soft Rectal: Deferred Back: Normal Inspection Extremity: Normal Capillary Refill, Pedal Edema Results/Procedures Lab Laboratory Tests 03/28/21 05:30 Patient resulted labs reviewed. Assessment/Plan Assessment and Plan Assess & Plan/Chief Complaint Pneumonia-off abx A. fib flutter Spinal stenosis with previous disability CHF with preserved ejection fraction De-Conditioning and weakness-acute on chronic Hypoxia now oxygen requiring Obstructive sleep apnea will probably need O2 now to bleeding his CPAP Plan for discharge on oxygen on Sunday with a pulmonate machine home breathing treatments EMILY KERNS MD March 27, 2021 13:13
[2021-03-27] MEDS: DIAZEPAM 2 MG (VALIUM) TAB PO SCH (21:11)
[2021-03-27] MEDS: rOPINIRole 1 MG (REQUIP) TABLET PO SCH (21:11)
[2021-03-27] MEDS: MICONAZOLE 2% POWDER (DESENEX AF) 90 GM TOP SCH (21:12)
--- NOTE | 2021-03-27 21:44 | Cardiology Progress Note ---
Cardiology SOAP Progress Note Subjective: No cardiac complaints Objective: I&O/Vital Signs 03/27/21 03/27/21 03/27/21 03/27/21 15:00 15:05 16:00 20:12 Temp 36.6 Pulse 78 Resp 19 B/P (MAP) 123/68 (86) Pulse Ox 93 92 91 94 O2 Delivery Nasal Cannula Nasal Cannula Nasal Cannula O2 Flow Rate 5.00 2.00 5.00 2.00 03/27/21 20:58 Pulse Ox 88 O2 Delivery Nasal Cannula O2 Flow Rate 2.00 03/27/21 00:00 Intake Total 1075 ml Output Total 1400 ml Balance -325 ml Weight (Pounds): 255 Weight (Calculated Kilograms): 115.784443 Constitutional: AAO x 3 Respiratory: chest is bilaterally symmetric, lungs clear to auscultation Cardiovascular: regular rate-rhythm, S1 and S2 Gastrointestional: soft, audible bowel sounds Extremities: no lower extremity edema bilateral Neurologic/Psychiatric: no motor/sensory deficits, alert, normal mood/affect, oriented x 3 Results/Procedures: Labs Laboratory Tests 03/27/21 05:00: White Blood Count 8.3, Red Blood Count 4.40, Hemoglobin 12.4L, Hematocrit 39L, Mean Corpuscular Volume 89, Mean Corpuscular Hemoglobin 28, Mean Corpuscular Hemoglobin Concent 32, Red Cell Distribution Width 16.5H, Platelet Count 162, Mean Platelet Volume 9.1, Immature Granulocyte % (Auto) 5, Neutrophils (%) (Auto) 78H, Lymphocytes (%) (Auto) 11L, Monocytes (%) (Auto) 6, Eosinophils (%) (Auto) 0, Basophils (%) (Auto) 0, Neutrophils # (Auto) 6.5, Lymphocytes # (Auto) 0.9L, Monocytes # (Auto) 0.5, Eosinophils # (Auto) 0.0, Basophils # (Auto) 0.0, Immature Granulocyte # (Auto) 0.4H, Sodium Level 138, Potassium Level 4.9, Chloride Level 98, Carbon Dioxide Level 30, Anion Gap 10, Blood Urea Nitrogen 18, Creatinine 0.89, Estimat Glomerular Filtration Rate > 60, BUN/Creatinine Ratio 20, Glucose Level 181H, Calcium Level 8.8, Phosphorus Level 4.0, Magnesium Level 2.0 03/27/21 11:50: Glucometer 273H 5/16/21 16:02: Glucometer 249H 03/27/21 19:56: Glucometer 210H Microbiology 03/23/21 C. difficile GDH Antigen & Toxins - Final, Complete 03/21/21 Gram Stain - Final, Complete 03/21/21 Sputum Culture - Final, Complete Usual upper respiratory julia YEAST 03/19/21 Urine Culture - Final, Complete NO GROWTH 03/19/21 Blood Culture - Final, Complete No growth A/P: Assessment/Dx: Pneumonia, Atrial Flutter, CAD, PAD Plan: Pneumonia, shortness of breath, status post acute respiratory failure, improving at this time, was on Vapotherm, currently on 4 L nasal cannula, managed by medical team. Paroxysmal atrial flutter, had history of arrhythmia in November 2019 while in [facility] and was started on amiodarone which was stopped recently. Admitted with atrial flutter and converted to sinus rhythm on Cardizem drip, currently off Cardizem, on Amiodarone, Eliquis, currently in SR. Will require evaluation for ablation for atrial flutter as an outpatient [id number] score of 3, yearly risk of stroke without oral anticoagulation at 3.2%, started on Eliquis Coronary artery disease, history of multiple cardiac catheterization multiple interventions in the past, Cardiac catheterization done February 16, 2021 with severe stenosis in the prox right coronary artery with successful primary stenting using Marcia 3.5 x 18mm overlapping with an old stent in the mid RCA. Patent stent in the LAD, mild coronary artery disease otherwise. Maintained on ASA and Plavix Peripheral arterial disease, Angiogram was done on September 15, 2020 showing total occlusion of the left anterior tibial artery with successful balloon angioplasty with multiple wires and balloons with excellent results. On the right side anterior tibial artery was atretic and very small. The ulcer on his foot is improving. ISABELA continue to be nondiagnostic, TBI was better. ISABELA was done on October 20, 2020 was on the right side 1.34 and left side 1.45. TBI on the right side was 0.5 and on the left side 0.61, good waveforms was noted Congestive heart failure, chronic compensated left ventricular systolic dysfunction, ischemic cardiomyopathy, last echocardiogram was done in January 2021 showing normal LV size, EF 55 to 65%, grade 1 diastolic dysfunction, PA pressure 15 to 20 mmHg. Continue to monitor Status post respiratory failure. Mild elevation in troponin type II myocardial infarction secondary to hypoxemia in December 2019. Currently asymptomatic Hypotension, reporting history of hypotension, Coreg was stopped on March 08, 2021. Continue to monitor blood pressure Hyperlipidemia, lipid profile done in September 2020 showing total cholesterol 193, triglyceride 221, HDL 50, LDL 122. Continue to monitor Diabetes mellitus, followed and managed by primary care physician History of C-spine surgery done in November 2019. BMI 41, we discussed weight loss History of bipolar disorder. Thank you for your consultation. Please call me if you have any questions. Luc Valenzuela MD, FACP, FACC, FSCAI, FHRS, CCDS Interventional Cardiology Cardiac Electrophysiology Vascular Medicine and Endovascular Interventions [place] VALENZUELA MD March 27, 2021 21:44
[2021-03-28] MEDS: oxyCODONE/APAP 7.5-325 MG (PERCOCET 7.5) TABLET PO PRN (04:07)
[2021-03-28] MEDS: predniSONE 20 MG TAB PO SCH (05:31)
[2021-03-28 05:40] LABS: BASOPHILS % (AUTO) 0 % (0-10); EOSINOPHILS % (AUTO) 0 % (0-10); HEMATOCRIT 37 % (40-54); HEMOGLOBIN 11.9 g/dL (13.3-17.7); LYMPHOCYTES # (AUTO) 1.3 10^3/uL (1.0-4.0); LYMPHOCYTES % (AUTO) 15 % (12-44); MEAN CORPUSCULAR HEMOGLOBIN 28 pg (25-34); MEAN CORPUSCULAR HGB CONC 32 g/dL (32-36); MEAN CORPUSCULAR VOLUME 88 fL (80-99); MEAN PLATELET VOLUME 8.8 fL (9.0-12.2); MONOCYTES # (AUTO) 0.6 10^3/uL (0.0-1.0); MONOCYTES % (AUTO) 7 % (0-12); NEUTROPHILS # (AUTO) 6.1 10^3/uL (1.8-7.8); NEUTROPHILS % (AUTO) 72 % (42-75); PLATELET COUNT 137 10^3/uL (130-400); WHITE BLOOD COUNT 8.4 10^3/uL (4.3-11.0)
[2021-03-28 06:02] LABS: CHLORIDE 99 MMOL/L (98-107); POTASSIUM 4.5 MMOL/L (3.6-5.0); SODIUM 137 MMOL/L (135-145)
[2021-03-28 06:04] LABS: CALCIUM 8.4 MG/DL (8.5-10.1); GLUCOSE 144 MG/DL (70-105)
[2021-03-28 06:06] LABS: CARBON DIOXIDE 31 MMOL/L (21-32)
[2021-03-28] MEDS: inSUlin ASPART (NovoLOG) 1 UNIT/0.01 ML (CHARGE PER UNIT) SC SCH ×2 (06:07→11:07)
[2021-03-28 06:08] LABS: CREATININE SERUM 1.06 MG/DL (0.60-1.30); GFR ESTIMATED > 60
[2021-03-28 06:09] LABS: BUN/CREATININE RATIO 15
[2021-03-28 06:10] LABS: MAGNESIUM 1.9 MG/DL (1.6-2.4)
[2021-03-28] MEDS: RT-ALBUTEROL/IPRATROPIUM 3 ML (DUONEB) VIAL INH SCH (07:02)
--- NOTE | 2021-03-28 08:58 | Cardiology Progress Note ---
Subjective Date Seen by Provider: March 28, 2021 Time Seen by Provider: 08:40 Subjective/Events-last exam Pt appears comfortable lying in bed. Reports he has had some orthostatic hypotension when he first gets up in the morning. No other cardiac complaints. Planning to go home today. Review of Systems General: No Chills, No Night Sweats HEENT: No Head Aches, No Visual Changes Pulmonary: Dyspnea; No Cough Cardiovascular: No: Chest Pain, Palpitations Gastrointestinal: No: Nausea, Vomiting Genitourinary: No Dysuria, No Frequency Musculoskeletal: No: neck pain, shoulder pain Neurological: No: Weakness, Numbness Objective-Cardiology Exam Last Set of Vital Signs Vital Signs 03/25/21 03/28/21 08:00 08:00 Temp 36.4 Pulse 76 Resp 20 B/P (MAP) 110/56 (74) Pulse Ox 92 O2 Delivery Nasal Cannula O2 Flow Rate 5.00 FiO2 4 Capillary Refill : Less Than 3 Seconds I&O Intake and Output 03/28/21 00:00 Intake Total 1710 ml Output Total 1975 ml Balance -265 ml Intake Oral 1710 ml Output Urine Total 1975 ml # Voids 4 # Bowel Movements 1 General: Alert, Oriented X3, No Acute Distress HEENT: Atraumatic, PERRLA Neck: Supple, No JVD, No Thyromegaly Lungs: Other (bibasilar wheezing, normal work of breathing) Heart: Regular Rate, Normal S1, Normal S2, No Murmurs Abdomen: Normal Bowel Sounds, Soft, No Tenderness Extremities: Other (1+ pitting edema) Skin: No Rashes, No Breakdown Neuro: Normal Speech, Sensation Intact, Cranial Nerves 3-12 NL Psych/Mental Status: Mental Status NL, Mood NL Results Lab Laboratory Tests 03/28/21 05:30 A/P-Cardiology Admission Diagnosis Pneumonia Atrial flutter Hypertension Hyperlipidemia Assessment/Plan Pneumonia, shortness of breath, status post acute respiratory failure, improving at this time, was on Vapotherm, currently on 4 L nasal cannula, managed by medical team. Paroxysmal atrial flutter, had history of arrhythmia in November 2019 while in [facility] and was started on amiodarone which was stopped recently. Admitted with atrial flutter and converted to sinus rhythm on Cardizem drip, currently off Cardizem, on Amiodarone, Eliquis, currently in SR. Will require evaluation for ablation for atrial flutter as an outpatient [id number] score of 3, yearly risk of stroke without oral anticoagulation at 3.2%, maintained on Eliquis Coronary artery disease, history of multiple cardiac catheterization multiple interventions in the past, Cardiac catheterization done February 16, 2021 with severe stenosis in the prox right coronary artery with successful primary stenting using Marcia 3.5 x 18mm overlapping with an old stent in the mid RCA. Patent stent in the LAD, mild coronary artery disease otherwise. Maintained on ASA and Plavix Peripheral arterial disease, Angiogram was done on September 15, 2020 showing total occlusion of the left anterior tibial artery with successful balloon angioplasty with multiple wires and balloons with excellent results. On the right side anterior tibial artery was atretic and very small. The ulcer on his foot is improving. ISABELA continue to be nondiagnostic, TBI was better. ISABELA was done on October 20, 2020 was on the right side 1.34 and left side 1.45. TBI on the right side was 0.5 and on the left side 0.61, good waveforms was noted Congestive heart failure, chronic compensated left ventricular systolic dysfunction, ischemic cardiomyopathy, last echocardiogram was done in January 2021 showing normal LV size, EF 55 to 65%, grade 1 diastolic dysfunction, PA pressure 15 to 20 mmHg. Continue to monitor Status post respiratory failure. Mild elevation in troponin type II myocardial infarction secondary to hypoxemia in December 2019. Currently asymptomatic Hypotension, reporting history of hypotension, Coreg was stopped on March 08, 2021. Continue to monitor blood pressure Hyperlipidemia, lipid profile done in September 2020 showing total cholesterol 193, triglyceride 221, HDL 50, LDL 122. Continue to monitor Diabetes mellitus, followed and managed by primary care physician History of C-spine surgery done in November 2019. BMI 41, we discussed weight loss History of bipolar disorder. Supervisory-Addendum Brief Verification & Attestation Participated in pt care: history, MDM, physical Personally performed: exam, history, MDM, supervision of care Care discussed with: Medical Student Procedures: n/a Results interpretation: Verified all documentation Verification and Attestation of Medical Student E/M Service A medical student performed and documented this service in my presence. I reviewed and verified all information documented by the medical student and made modifications to such information, when appropriate. I personally performed the physical exam and medical decision making. Kassandra Franklin, March 28, 2021,10:44 NATI SAXENA MED STUDENT March 28, 2021 8:58 am KASSANDRA FRANKLIN MD March 28, 2021 10:45 am
[2021-03-28] MEDS: ASPIRIN 81 MG CHEW (CHILDREN'S ASA) PO SCH (10:29)
[2021-03-28] MEDS: DIVALPROEX 500 MG DELAYED RELEASE (DEPAKOTE) TAB PO SCH (10:29)
[2021-03-28] MEDS: PREGABALIN 150 MG (LYRICA) CAPSULE PO SCH ×2 (10:29→12:35)
[2021-03-28] MEDS: TAMSULOSIN 0.4 MG (FLOMAX) CAP PO SCH (10:30)
[2021-03-28] MEDS: PANTOPRAZOLE 40 MG (PROTONIX) TAB PO SCH (10:30)
[2021-03-28] MEDS: APIXABAN 5 MG (ELIQUIS) TABLET PO SCH (10:30)
[2021-03-28] MEDS: SERTRALINE 100 MG (ZOLOFT) TAB PO SCH (10:30)
[2021-03-28] MEDS: CLOPIDOGREL 75 MG (PLAVIX) TABLET PO SCH (10:30)
[2021-03-28] MEDS: [UNRECOGNIZED DRUG - REMARK] PO SCH (10:31)
[2021-03-28] MEDS ORDERED: PRED10TA22 PO (10:34)
[2021-03-28] MEDS ORDERED: IPRA3AMP31 INH (10:34)
[2021-03-28] MEDS ORDERED: APIX5TAB PO (10:34)
[2021-03-28] MEDS ORDERED: GLYB1.253 PO (10:34)
[2021-03-28] MEDS ORDERED: FURO40TA4 PO (10:34)
--- NOTE | 2021-03-28 10:37 | Discharge Summary ---
Discharge Summary Hospital Course Was the Problem List Reviewed?: Yes Problems/Dx: (1) Pneumonia involving right lung Status: Acute Qualifiers: Qualified Codes: J18.9 - Pneumonia, unspecified organism (2) Atrial flutter Status: Acute Qualifiers: Qualified Codes: I48.92 - Unspecified atrial flutter (3) Vomiting and diarrhea Status: Acute (4) Sepsis Status: Acute (5) DAISY on CPAP Status: Chronic (6) Debility Status: Acute (7) CHF (congestive heart failure) (8) CAD (coronary artery disease) Status: Chronic Qualifiers: Qualified Codes: I25.10 - Atherosclerotic heart disease of [place] coronary artery without angina pectoris (9) Bipolar disorder Hospital Course Date of Admission: March 19, 2021 at 13:13 Admission Diagnosis : Family Physician/Provider: Elizabeth Ramey Date of Discharge: 03/28/21 Discharge Diagnosis: sepsis, PNA, AF new onset, CAD Hospital Course: Hospital course: Pt had a lengthy hospital course for nine days after he was admitted for pneumonia and new-onset atrial flutter. Eliquis was started, IV antibiotics initiated and completed during hospital stay. Labs remain stable, cardiology followed along with pulmonary critical care. Vapotherm was weaned and overall Pt did very well and was able to be maintained on 2 liters continuous oxygen and did not need home health. Nebulizer machine was also ordered so he was discharged in improved condition. Labs and Pending Lab Test: Laboratory Tests 03/27/21 11:50: Glucometer 273H 03/27/21 16:02: Glucometer 249H 03/27/21 19:56: Glucometer 210H 03/28/21 05:30: White Blood Count 8.4, Red Blood Count 4.23L, Hemoglobin 11.9L, Hematocrit 37L, Mean Corpuscular Volume 88, Mean Corpuscular Hemoglobin 28, Mean Corpuscular Hemoglobin Concent 32, Red Cell Distribution Width 16.6H, Platelet Count 137, Mean Platelet Volume 8.8L, Immature Granulocyte % (Auto) 5, Neutrophils (%) (Auto) 72, Lymphocytes (%) (Auto) 15, Monocytes (%) (Auto) 7, Eosinophils (%) (Auto) 0, Basophils (%) (Auto) 0, Neutrophils # (Auto) 6.1, Lymphocytes # (Auto) 1.3, Monocytes # (Auto) 0.6, Eosinophils # (Auto) 0.0, Basophils # (Auto) 0.0, Immature Granulocyte # (Auto) 0.4H, Sodium Level 137, Potassium Level 4.5, Chloride Level 99, Carbon Dioxide Level 31, Anion Gap 7, Blood Urea Nitrogen 16, Creatinine 1.06, Estimat Glomerular Filtration Rate > 60, BUN/Creatinine Ratio 15, Glucose Level 144H, Calcium Level 8.4L, Phosphorus Level 4.0, Magnesium Level 1.9 Microbiology 03/23/21 C. difficile GDH Antigen & Toxins - Final, Complete 03/21/21 Gram Stain - Final, Complete 03/21/21 Sputum Culture - Final, Complete Usual upper respiratory julia YEAST 03/19/21 Urine Culture - Final, Complete NO GROWTH 03/19/21 Blood Culture - Final, Complete No growth Home Meds Active Prednisone 10 Mg Tab.ds.pk 10 Mg PO DAILY Take 4 tabs(40mg) once daily,decrease by 1 tab(10MG)daily. Glyburide 1.25 Mg Tablet 1.25 Mg PO DAILY Eliquis (Apixaban) 5 Mg Tablet 5 Mg PO BID Iprat-Albut 0.5-3(2.5) mg/3 ml (Ipratropium/Albuterol Sulfate) 3 Ml Ampul.neb 3 Ml INH RTTID Furosemide 40 Mg Tablet 40 Mg PO DAILY PRN 14 Days Reported Ropinirole HCl 0.5 Mg Tablet 0.5 Mg PO HS TAKES 1MG +0.5MG TO EQUAL 1.5MG Ropinirole HCl 1 Mg Tablet 1 Mg PO HS TAKES 1MG +0.5MG TO EQUAL 1.5MG Oxycodone-Acetaminophen 5-325 (Oxycodone HCl/Acetaminophen) 1 Each Tablet 0.5 Each PO BID PRN MDD 6 Aspirin EC (Aspirin) 81 Mg Tablet.dr 81 Mg PO DAILY Clopidogrel (Clopidogrel Bisulfate) 75 Mg Tablet 75 Mg PO DAILY Metformin HCl 1,000 Mg Tablet 1,000 Mg PO BID Diazepam 2 Mg Tablet 1 Mg PO HS TAKES OF A 2MG TAB Sertraline HCl 100 Mg Tablet 100 Mg PO DAILY Potassium Chloride 20 Meq Tablet.er 20 Meq PO DAILY Flomax (Tamsulosin HCl) 0.4 Mg Cap 0.4 Mg PO DAILY Lyrica (Pregabalin) 150 Mg Capsule 150 Mg PO TID Farxiga (Dapagliflozin Propanediol) 10 Mg Tablet 10 Mg PO DAILY Depakote (Divalproex Sodium) 500 Mg Tablet.dr 500 Mg PO BID Vraylar (Cariprazine Hydrochloride) 1.5 Mg Capsule 1.5 Mg PO DAILY Atorvastatin Calcium 40 Mg Tablet 40 Mg PO DAILY Pantoprazole Sodium 40 Mg Tablet.dr 40 Mg PO DAILY Losartan Potassium 25 Mg Tablet 25 Mg PO DAILY Assessment/Pt Instructions [facility] 1 week Discharge Planning: <30 minutes discharge planning Discharge Instructions Discharge Diet: ADA Diet Activity as Tolerated: Yes Discharge Physical Examination Vital Signs Vital Signs Date Time Temp Pulse Resp B/P (MAP) Pulse Ox O2 Delivery O2 Flow Rate FiO2 03/28/21 08:00 36.4 76 20 110/56 (74) 92 Nasal Cannula 5.00 03/25/21 08:00 4 Allergies: Coded Allergies: No Known Drug Allergies (Unverified , 04/23/19) Discharge Summary Date of Admission March 19, 2021 at 13:13 Date of Discharge Discharge Date: March 28, 2021 Admission Diagnosis Assessment: PNA with acute respiratory insufficiency AF w/RVR History of central spinal cord syndrome resulting in chronic debility and weakness CAD Ischemic cardiomyopathy Chronic wounds on the legs just completed wound care left foot on Sunday Chronic edema Bipolar disorder DAISY on CPAP Plan: IV abx Nebs O2 Home meds Cardiology consultation Discharge Diagnosis Assessment: PNA with acute respiratory insufficiency AF w/RVR History of central spinal cord syndrome resulting in chronic debility and weakness CAD Ischemic cardiomyopathy Chronic wounds on the legs just completed wound care left foot on Sunday Chronic edema Bipolar disorder DAISY on CPAP Plan: IV abx Nebs O2 Home meds Cardiology consultation 03/20/21: IV abx O2 Nebs Steroids (1) Pneumonia involving right lung Status: Acute Qualifiers: Qualified Codes: J18.9 - Pneumonia, unspecified organism (2) Atrial flutter Status: Acute Qualifiers: Qualified Codes: I48.92 - Unspecified atrial flutter (3) Vomiting and diarrhea Status: Acute (4) Sepsis Status: Acute (5) DAISY on CPAP Status: Chronic (6) Debility Status: Acute (7) CHF (congestive heart failure) (8) CAD (coronary artery disease) Status: Chronic Qualifiers: Qualified Codes: I25.10 - Atherosclerotic heart disease of [place] coronary artery without angina pectoris (9) Bipolar disorder MANPREET SPENCER DO March 28, 2021 10:37
[2021-03-28] MEDS: MICONAZOLE 2% POWDER (DESENEX AF) 90 GM TOP SCH (10:40)
[2021-03-28 12:37] VITALS: BP 110/56
== END 2021-03-28 13:58 | disposition home or self-care (01) | DRG 871 ==
LOC: EDUNIT# 10:42 → ER 10:44 → ICU 13:13 → 4TH 03-24 15:33
PROVIDERS: ADMIT Internal Medicine; ATTEND Internal Medicine
DX: A41.9 Sepsis, unspecified organism (principal); J18.9 Pneumonia, unspecified organism; I50.23 Acute on chronic systolic (congestive) heart failure; J96.21 Acute and chronic respiratory failure with hypoxia; I21.A1 Myocardial infarction type 2; I48.92 Unspecified atrial flutter; Z68.41 Body mass index [BMI] 40.0-44.9, adult; J44.0 Chronic obstructive pulmonary disease with (acute) lower respiratory infection; I11.0 Hypertensive heart disease with heart failure; I25.5 Ischemic cardiomyopathy; E11.65 Type 2 diabetes mellitus with hyperglycemia; Z20.822 Contact with and (suspected) exposure to COVID-19; G47.33 Obstructive sleep apnea (adult) (pediatric); I48.91 Unspecified atrial fibrillation; I25.10 Atherosclerotic heart disease of native coronary artery without angina pectoris; Q24.9 Congenital malformation of heart, unspecified; E78.00 Pure hypercholesterolemia, unspecified; E11.40 Type 2 diabetes mellitus with diabetic neuropathy, unspecified; Z79.84 Long term (current) use of oral hypoglycemic drugs; G83.9 Paralytic syndrome, unspecified; N40.0 Benign prostatic hyperplasia without lower urinary tract symptoms; N31.9 Neuromuscular dysfunction of bladder, unspecified; K59.09 Other constipation; F41.9 Anxiety disorder, unspecified; F31.9 Bipolar disorder, unspecified; I73.9 Peripheral vascular disease, unspecified; D64.9 Anemia, unspecified; D69.6 Thrombocytopenia, unspecified; E66.9 Obesity, unspecified; T14.8XXS Other injury of unspecified body region, sequela
CPT/HCPCS: 36415; 36569; 71045; 71275; 76705; 76937; 80048; 80053; 81000; 82805; 82947; 83605; 83735; 83880; 84100; 84145; 84484; 85007; 85025; 85027; 85379; 85610; 85730; 86141; 86769; 87040; 87070; 87081; 87088; 87205; 87324; 87449; 87631; 87635; 87804; 93005; 94640; 94660; 94664; 94760; 94761; 96361; 96372; 96374; 96375

== ENCOUNTER → 2021-05-30 | Outpatient (CLI) | payer MEDICAID ==
[~2021-05-30] MED LIST changes: +APIX5TAB PO; +GLYB1.253 PO; +IPRA3AMP31 INH; +METF-399 PO; +OXYC1TAB11 PO; +PRED10TA22 PO; +ROPI1TAB PO
== END ==
LOC: LABNPT 06:25
PROVIDERS: ATTEND Internal Medicine Cardiovascular Disease
DX: Z53.9 Procedure and treatment not carried out, unspecified reason (principal)

== ENCOUNTER 2021-08-24 06:18 | Outpatient (CLI) | payer MEDICAID ==
[~2021-08-24] VITALS: Ht 177.8 cm; Wt 82.6 kg
[2021-08-24] MEDS ORDERED: INSU100I29 SQ (09:34)
[2021-08-24] MEDS ORDERED: ROPI0.5T4 PO (09:34)
[2021-08-24] MEDS ORDERED: NITR0.4T SL (09:34)
== END 2021-08-24 09:59 ==
LOC: PREOP 06:18
PROVIDERS: ATTEND Surgery
DX: Z01.818 Encounter for other preprocedural examination (principal)

== ENCOUNTER 2021-08-31 09:17 | Day surgery (SDC) | payer MEDICARE, MEDICAID ==
--- NOTE | 2021-08-26 14:50 | HISTORY AND PHYSICAL ---
DATE OF SERVICE: DATE OF ADMISSION: 08/31/2021. PROCEDURE DATE: 08/31/2021. ATTENDING PRIMARY CARE PHYSICIAN: Saundra Lyles at [facility]. HISTORY OF PRESENT ILLNESS: The patient is a 56-year-old male, who was referred over to us in need of a screening colonoscopy. He reports that he has never had a colonoscopy done until this point in his life. He reports he did recently have a Cologuard test performed and reports that this was Hemoccult positive. He denies any visible blood in his stool or upon wiping. He denies any family history of any colon cancer. He also denies any diarrhea, constipation or any abdominal pain. He did have a cardiac catheterization and stents placed in December of 2020 and then had a heart ablation in May of 2021 for atrial flutter. He reports that he has been on Eliquis, Plavix and aspirin and he was instructed by his paster supervisor to wait until August of this year before he could stop his anticoagulation before procedures. PAST MEDICAL HISTORY: Atrial flutter, coronary artery disease, hypercholesterolemia, type 2 diabetes, hypertension, neuropathy, cervical spinal stenosis, lumbar spinal stenosis, chronic obstructive pulmonary disease, gastroesophageal reflux disease, depression, BPH, and restless legs syndrome. PAST SURGICAL HISTORY: Right rotator cuff repair, C2-C7 ORIF in December 2019, cardiac catheterization with stent placement x2 in December 2020, and cardiac ablation in May of 2021. ALLERGIES: TRULICITY and BYDUREON. MEDICATIONS: Nitrostat 0.4 mg p.r.n., Eliquis 5 mg, Farxiga 10 mg, ropinirole 0.5 mg, sertraline 100 mg, Vraylar 1.5 mg, Spiriva 18 mcg, Levemir as directed, divalproex 500 mg, metformin ER 500 mg, Plavix 75 mg, oxycodone 5/325 mg b.i.d., Protonix 40 mg, tamsulosin 0.4 mg, aspirin 81 mg, and atorvastatin 40 mg. SOCIAL HISTORY: Negative for tobacco smoke. Negative for alcohol. FAMILY HISTORY: Mother diabetes, myocardial infarction. Father, hypertension. REVIEW OF SYSTEMS: This is a well-nourished male in no acute distress. He is not experiencing any shortness of breath or difficulty breathing. No chest pain, palpitations or diaphoresis. No nausea, vomiting or abdominal pain. No diarrhea or constipation. No visible red blood per rectum. No dark tarry stools. No fever or chills. No recent inadvertent weight loss. All other review of systems negative. PHYSICAL EXAMINATION: VITAL SIGNS: Blood pressure is 134/80. Current weight is 182 pounds at 5 feet 10 inches. CHEST: Clear. Good breath sounds bilaterally. HEART: Regular and no murmurs. EXTREMITIES: No lower extremity edema. Negative Homans sign. HEENT: No scleral icterus. NECK: No cervical lymphadenopathy. ABDOMEN: Soft, nontender, and nondistended. SKIN: Warm, dry and pink. NEUROLOGIC: Awake, alert and oriented x3. ASSESSMENT AND PLAN: A 56-year-old male with Hemoccult positive stools, who is in need of a colonoscopy. He is currently on Eliquis, aspirin and Plavix and will first need cardiac clearance to stop his anticoagulation, which we will proceed with obtaining. Once we have obtained his cardiac clearance, we will then schedule him for a colonoscopy. CC: Saundra Lyles - requested, but unable to deliver. Job ID: [id number] DocumentID: [id number] Dictated Date: 08/26/2021 13:14:05 Glove Turner And Former Date: 08/26/2021 13:39:29 Dictated By: GERA GONZALEZ APRN
[~2021-08-31] VITALS: Ht 177.8 cm; Wt 82.6 kg
[~2021-08-31 09:17] MED LIST changes: +INSU100I29 SQ; +NITR0.4T SL
--- OUTSIDE RECORDS SUMMARY | 2021-08-31 09:22 | XMS REPORT | Encounter Summary ---
Author Author [facility] Organization [facility] Address Unknown Phone Unavailable Care Team Providers Care Defect Repairer Glassware Name Role Phone Saundra Lyles CORY PCP [phone] Encounter Details Care Team Description Date Type Department 07/15/2021 Travel Social History Date Tobacco Use Types Packs/Day Years Used Never Smoker Smokeless Tobacco: Never Used Comments Alcohol Use Standard Drinks/Week Never 0 (1 standard drink = 0.6 o z pure alcohol) Alcohol Habits Answer Date Recorded How often do you have a drink containing alcohol? Never 05/05/2021 How many drinks containing alcohol do you have on No t asked a typical day when you are drinking? How often do you have six or more drinks on one Not asked occasion? Comment: Not asked Sex Assigned at Date Recorded Male 05/06/2021 5:12 PM CDT Date Recorded COVID-19 Exposure Response 07/15/2021 9:12 AM CDT In the last month, have you been in contact with No / Unsure someone who was confirmed or suspected to have Coronavirus / COVID-19? documented as of this encounter Functional Status Date of Assessment Functional Status Response 07/15/2021 Does the patient have a hearing impairment: No 07/15/2021 Does the patient have a visual impairment: No 07/15/2021 Does the patient have impaired ambulation: No 07/15/2021 Does the patient have an activity of daily living No (ADL) impairment: 07/15/2021 Does the patient have an instrumental activity of No daily living (IADL) impairment: Date of Assessment Cognitive Status Response 07/15/2021 Does the patient have a cognitive impairment: No documented as of this encounter Plan of Treatment Not on filedocumented as of this encounter Visit Diagnoses Not on filedocumented in this encounter Additional Health Concerns Assessment Noted Time A fall risk assessment has been completed for the pat ient 07/15/2021 9:18 AM CDT documented as of this encounter
--- OUTSIDE RECORDS SUMMARY | 2021-08-31 09:22 | XMS REPORT | Clinical Summary ---
Author Author [facility] Organization [facility] Address Unknown Phone Unavailable Care Team Providers Care Site Technician Name Role Phone TruptiSaundra CORY PCP [phone] Source Comments Some departments are not documenting in the electronic medical record. If you d o not see the information that you expected, contact Release of Information in [facility] [employer] Information Management department at [phone] for further assistan ce in locating additional records.[facility] Allergies Comments Active Allergy Reactions Severity Noted Date Exenatide Microspheres NAUSEA AND Low 021 VOMITING Dulaglutide VOMITING Low 05/05/2021 Medications End Date Status Medication Sig Dispensed Refills Start Date Active apixaban (ELIQUIS) 5 mg Take 5 mg by 0 tablet mouth twice daily. Active albuterol-ipratropium Inhale 3 mL 0 (DUONEB) 0.5 mg-3 mg(2.5 solution by mg base)/3 mL nebulizer nebulizer as solution directed four times daily. Active rOPINIRole (REQUIP) 0.5 Take 1 mg by 0 mg tablet mouth at bedtime daily. Active oxyCODONE/acetaminophen Take 1 tablet 0 (PERCOCET) 5/325 mg by mouth tablet every 4 hours as needed for Pain Active aspirin EC 81 mg tablet Take 81 mg by 0 mouth daily. Take with food. Active clopiDOGrel (PLAVIX) 75 Take 75 mg by 0 mg tablet mouth daily. Active metFORMIN (GLUCOPHAGE) Take 500 mg 0 1,000 mg tablet by mouth twice daily. Active sertraline (ZOLOFT) 100 Take 100 mg 0 mg tablet by mouth daily. Active tamsulosin (FLOMAX) 0.4 Take 0.4 mg 0 mg capsule by mouth daily. Do not crush, chew or open capsules. Take 30 minutes following the same meal each day. Active pregabalin (LYRICA) 150 Take 150 mg 0 mg capsule by mouth three times daily. Active dapagliflozin (FARXIGA) Take 10 mg by 0 10 mg tablet mouth daily. Active divalproex (DEPAKOTE ER) Take 500 mg 0 500 mg ER tablet by mouth twice daily. Take with food. Active cariprazine (VRAYLAR) 1.5 Take by 0 mg cap mouth daily. Active atorvastatin (LIPITOR) 40 Take 40 mg by 0 mg tablet mouth daily. Active pantoprazole DR Take 40 mg by 0 (PROTONIX) 40 mg tablet mouth daily. Active nitroglycerin (NITROSTAT) as directed 0 0.4 mg tablet Active LEVEMIR FLEXTOUCH U-100 0 INSULN 100 unit/mL (3 mL) 1 injection pen Active SPIRIVA WITH HANDIHALER 0 18 mcg capsule for 1 inhaler Active Problems Problem Noted Date DM (diabetes mellitus) 05/01/2021 HLD (hyperlipidemia) 05/01/2021 Essential hypertension 05/01/2021 Asthma 05/01/2021 DAISY (obstructive sleep apnea) 05/01/2021 Depression 05/01/2021 Anxiety 05/01/2021 Arthritis 05/01/2021 Rheumatic fever 05/01/2021 Bipolar disorder 05/01/2021 CAD (coronary artery disease) 05/01/2021 Overview: Formatting of this note might be differ ent from the original. 05/25/2020 - ECHO: ([facility]) LV dysfunction with anterior and apical hypokinesis and an EF of 50% . LVH. LA chamber enlargement. Structurally normal MV with mild regurg itation. Atrial flutter 05/01/2021 Encounters Care Team Description Date Type Specialty Marjorie Ivy APRN-GRANT WRITER Post-op (1 mo AFL Ablation); Hypertensi on; Cholesterol; Atrial fibrillation; CAD 07/15/2021 Office Visit Cardiology 07/15/2021 Travel Penelope Sanford MD 06/02/2021 Anesthesia Cardiology Event Duy Juarez MD INTRACARDIAC CATHETER ABLATION WITH COMP REHENSIVE ELECTROPHYSIOLOGIC EVALUATION - TYPICAL FLUTTER 06/02/2021 Surgery Cardiology Duy Juarez MD Atrial flutter (HCC) 06/02/2021 [facility] Cardiology - Encounter 06/03/2021 06/02/2021 Travel Kyung Shafer Lab Results (Pre Procedure Labs ) 06/01/2021 Documentation Cardiology Hansa Moody APRN-NP 05/31/2021 Pre-Admit Cardiology Orders Only from Last 3 Months Medical History Medical History Date Comments DM (diabetes mellitus) ([facility]) 05/01/2021 HLD (hyperlipidemia) 05/01/2021 Essential hypertension 05/01/2021 Asthma 05/01/2021 DAISY (obstructive sleep apnea) 05/01/2021 Depression 05/01/2021 Anxiety 05/01/2021 Arthritis 05/01/2021 Rheumatic fever 05/01/2021 Bipolar disorder ([facility]) 05/01/2021 CAD (coronary artery disease) 05/01/2021 Atrial flutter ([facility]) 05/01/2021 Family History Medical History Relation Name Comments Cancer Father Heart Disease Mother Relation Name Status Comments Father Mother Social History Date Tobacco Use Types Packs/Day [...] Date Recorded Male 05/06/2021 5:12 PM CDT Last Filed Vital Signs Reading Time Taken Comments Vital Sign 124/62 07/15/2021 9:18 AM CDT Blood Pressure 66 07/15/2021 9:18 AM CDT Pulse 36.4 C (97.6 F) 06/03/2021 9:00 AM CDT Temperature - - Respiratory Rate 97% 07/15/2021 9:18 AM CDT Oxygen Saturation - - Inhaled Oxygen Concentration 132.1 kg (291 lb 3.2 oz) 07/15/2021 9:18 AM CDT Weight 177.8 cm (5' 10") 07/15/2021 9:18 AM CDT Height 41.78 07/15/2021 9:18 AM CDT Body Mass Index Plan of Treatment Health Maintenance Due Date Last Done Comments HIV SCREENING 1978 DILATED EYE EXAM 1981 DTAP/TDAP VACCINES (1 - 1981 Tdap) FOOT EXAM 1981 HBA1C 1981 HEPATITIS C SCREENING 1981 MICROALBUMIN 1981 PHYSICAL (COMPREHENSIVE) 1981 EXAM PNEUMONIA VACCINE (DM) 1981 COLORECTAL CANCER 2013 SCREENING SHINGLES RECOMBINANT 2013 VACCINE (1 of 2) INFLUENZA VACCINE 06/12/2021 Procedures Comments Procedure Name Priority Date/Time Associated Diag nosis ECG-SCAN 07/15/2021 12:00 AM CDT HC BASIC METABOLIC PANEL Routine 06/03/2021 3:30 AM CDT HC CBC,AUTOMATED Routine 06/03/2021 3:30 AM CDT POC GLUCOSE 06/02/2021 9:28 PM CDT POC GLUCOSE 06/02/2021 5:21 PM CDT EP STUDY Routine 06/02/2021 Encounter for s creening 3:45 PM CDT laboratory testing for COVID-19 virus in asymptomatic patient Typical atrial flutter (HCC) ECG 12-LEAD Routine 06/02/2021 3:34 PM CDT HC PT(INR) POC 06/02/2021 11:47 AM CDT HC PT(INR) POC 06/02/2021 11:44 AM CDT POC GLUCOSE 06/02/2021 11:33 AM CDT CONSULT IV THERAPY TEAM STAT 06/02/2021 11:31 AM CDT ECG-SCAN 06/02/2021 12:00 AM CDT ECG-SCAN 06/02/2021 12:00 AM CDT CBC Routine 05/31/2021 Atrial flutter, unspecified type (HCC) Coronary artery disease involving [place] heart, unspecified vessel or lesion type, unspecified whether angina present Essential hypertension MAGNESIUM Routine 05/31/2021 Atrial flutter, unspecified type (HCC) Coronary artery disease involving [place] heart, unspecified vessel or lesion type, unspecified whether angina present Essential hypertension BASIC METABOLIC PANEL Routine 05/31/2021 Atrial f lutter, unspecified type (HCC) Coronary artery disease involving [place] heart, unspecified vessel or lesion type, unspecified whether angina present Essential hypertension from Last 3 Months Results * ECG-SCAN (07/15/2021 12:00 AM CDT) Narrative Performed At This result has an attachment that is n ot available. Ordered by an unspecified provider. * CBC (06/03/2021 3:30 AM CDT) Only the most recent of 2 results within the time period is included. White Blood 7.1 4.5 - 11.0 K/UL [facility] Cells RBC 4.76 4.4 - 5.5 M/UL [facility] Hemoglobin 12.5 (L) 13.5 - 16.5 GM/DL [facility] Hematocrit 38.5 (L) 40 - 50 % [facility] MCV 80.8 80 - 100 FL [facility] MCH 26.3 26 - 34 PG [facility] MCHC 32.5 32.0 - 36.0 G/DL [facility] RDW 17.1 (H) 11 - 15 % [facility] Platelet Count 132 (L) 150 - 400 K/UL [facility] MPV 7.0 7 - 11 FL [facility] Specimen Blood Performing Organization Address City/State/ZIP Code [place] Number [facility] [address] [place] [address] * BASIC METABOLIC PANEL (06/03/2021 3:30 AM CDT) Only the most recent of 2 results within the time period is included. Sodium 138 137 - 147 MMOL/L [facility] Potassium 4.2 3.5 - 5.1 MMOL/L [facility] Chloride 103 98 - 110 MMOL/L [facility] CO2 25 21 - 30 MMOL/L [facility] Anion Gap 10 3 - 12 [facility] Glucose 124 (H) 70 - 100 MG/DL [facility] Blood Urea 7 7 - 25 MG/DL [facility] Nitrogen Creatinine 0.83 0.4 - 1.24 MG/DL [facility] Calcium 9.1 8.5 - 10.6 MG/DL [facility] eGFR Non >60 >60 mL/min [facility] Comment: [place] The eGFR is not validated f or use in drug dosing adjustments. Continue to use estimated creatinine clearance per dosing reference text. Please contact the Clinical Pharmacist for questions. eGFR >60 >60 mL/min [facility] [place] Comment: The eGFR is not validated for use in drug dosing adjustments. Continue to use estimated creatinine clearance per dosing reference text. Please contact the Clinical Pharmacist for questions. Specimen Blood Performing Organization Address City/State/ZIP Code [place] Number MAIN [facility] [address] [place] [address] * POC GLUCOSE (06/02/2021 9:28 PM CDT) Only the most recent of 3 results within the time period is included. Glucose, POC 114 (H) 70 - 100 MG/DL [facility] Specimen Performing Organization Address City/State/ZIP Code [place] Number [facility] [address] [id number] * EP STUDY (06/02/2021 3:45 PM CDT) Specimen Impressions Performed At : OTHER OUTSIDE LAB Successful CTI-dependent Atrial Flut ter ablation Intra-atrial pacing PLAN: - Pain control as needed - Remove sheaths in recovery - Bedrest 6 hours after sheath removal - Anti-arrhythmic drug: None - Anticoagulation: Resume eliquis as so on as 4 hours after sheath removal if hemostasis present and no hematoma - Follow-up: EP [facility] [place] [address] Juarez in [address] Juarez was present throughout the ke y portions of the procedure. Nomi Wheat DO Cardiac Electrophysiology Fellow, PGY-8 Contact via Voalte messaging or Pager # : [phone] 11:03 PM, 06/02/2021 Narrative Performed At OTHER OUTSIDE LAB ELECTROPHYSIOLOGY PROCEDURE PROCEDURES: Cavo-tricuspid isthmus ablation (Typ ical Atrial Flutter Ablation) EP study with CS catheter placement and pacing Intra-atrial pacing and intraventric ular pacing. Moderate Sedation Anesthesia Right heart catheterization LA pacing/recording Three-dimensional intracardiac elect roanatomic mapping (Precision) BRIEF SUMMARY: - Presenting rhythm: Sinus rhythm - Right femoral access: without difficu lty - Pre ablation EP study: baseline measu res as below with intact CTI conduction - Ablation performed: CTI ablation with out significant challenges. - Post ablation EP study: Bidirectional block ATTENDING: Duy Juarez M.D. EP FELLOW: Nomi Wheat DO & Lorna Monte DO INDICATION FOR PROCEDURE: --Paroxysmal Atrial Flutter --Remote AFIB in setting of Very Compli cated Postoperative Course --CAD with recent stent to the RCA (02/11 021 at OSH) --Essential Hypertension CONSENT: The risks, benefits and altern atives to the procedure have been described to the patient in detail. All questions were answered. The patient expressed understanding and has agreed to proceed. PRESENTATING RHYTHM: Sinus Rhythm. SETUP AND ACCESS: The patient was broug ht to the EP Lab in a fasting state after informed and written consent was obtained. Cardiac rhythm, blood pressure, heart rate, respirations, oxy gen saturation and level of consciousness were monitored prior to, throughout and after the procedure. Moderate sedation was administered by ly mejia staff members. The patient was placed supine on the fluoroscopy ta ble, prepped and draped in the usual sterile fashion. Local anesthet ic was provided. Venous access was obtained using a micropuncture needle i n the right femoral vein under fluoroscopic/anatomic and ultrasound gu idance using the modified Seldinger technique. Ultrasound was utilized to c onfirm femoral venous patency. Needle access was obtained under ultras ound guidance and a permanent recording obtained. Guidewires were placed through each venous access. Ultrasound Guided Access with Microp uncture Access Point Sheath Size Catheter(s ) Location(s) Right femoral vein 8.5 SRO Flexibility Ablation RA Right femoral vein 7 short DuoDecapolar Carolyn RA Right femoral vein 6 short Polaris CS R A, CS EP STUDY AND ABLATION: - Patient arrived in sinus rhythm. We identified the His position and obtained AH / HV. We then evaluated t he conduction times across the CTI line as noted below in the table. The re was clear conduction across the CTI line. We utilized a flexibility a blation catheter through SRO. We did not identify any initial anatomic c hallenges that we may encounter. We began our ablation at the TV annulus and did a continuous but point by point fashion ablation. We used 35 wa tts of energy. We ablated from the TV to IVC in single pass and while paci ng from the CS 9-10 we identified that we had CTI block at about [address] through the CTI line. We went until we fell from RA into IVC. We th en went back to TV and assessed the line and did another ablation applicati on through the line to shore up any areas of conduction. We made 2 passes without any significant anatomical challenges. We re-assessed our pacing / timing positions to see what our CTI conduction times were, as noted bel ow, we had CTI conduction block. Site of measurement Pre ablation (ms) Post Ablation (ms) -Map 05 to CS 9-10 -CS 9-10 to Map 05 -39 -30 - - -Map 06 to CS9-10 -CS 9-10 to Map 06 -63 -53 - -Map 07 to CS 9-10 -CS 9-10 to Map 07 -95 -99 -186 -168 -Map 08 to CS 9-10 -CS 9-10 to Map 08 -136 -124 -164 -159 -Map 05 to Carolyn 1-2 -Carolyn 1-2 to Map 05 -93 -88 -157 -179 -Carolyn 1-2 to CS 9-10 -CS 9-10 to Carolyn 1-2 -125 -131 -163 (CS further out than OS) -159 -Carolyn 1-2 to Map 0530 -Carolyn 1-2 to Map 0430 -157 -147 SEDATION: I was personally responsible for the administration of moderate sedation services during the procedure performed and I confirm requirements described in CPT section o n moderate sedation were followed, including the use of an independent tra ined observer who had no other duties during the procedure. After prov iding fentanyl and midazolam, we achieved moderate conscious sedation, w hich was maintained throughout the procedure. The hemodynamic parameters, respiratory parameters, as well as neurological status was monitored throu ghout the procedure by the garden labourer staff and myself. The total face-to-fac e time was minutes 70 ([id number]) DIAGNOSTIC EP STUDY: Baseline: AH interval 122 msec, HV interval 54 msec. Performing Organization Address City/State/ZIP Code [place] Number OTHER OUTSIDE LAB * POC PT/INR (06/02/2021 11:47 AM CDT) Only the most recent of 2 results within the time period is included. INR POC 1.1 0.8 - 1.2 [facility] Specimen Performing Organization Address City/[facility]/ZIP Code [place] Number MA[facility] [address] [place] [address] * ECG-SCAN (06/02/2021 12:00 AM CDT) Narrative Performed At This result has an attachment that is n ot available. Ordered by an unspecified provider. * ECG-SCAN (06/02/2021 12:00 AM CDT) Narrative Performed At This result has an attachment that is n ot available. Ordered by an unspecified provider. * MAGNESIUM (05/31/2021) Magnesium 1.9 MAIN LAB Specimen Blood - Blood Performing Organization Address [facility] P trixie Number MAIN LAB [address] [place] [address] from Last 3 Months Insurance Type Payer Benefit Subscriber ID Effective Phone Address Plan / Dates Group [employer] MEDICAID AETNA [id number] 2020-P [facility] [id number] Advance Directives Patient Edge Dyer Explanation Type Date Recorded Advance Directive/DPOA Date Inactivated Comments Code Status Date Activated 06/03/2021 11:33 AM Full Code 06/02/2021 11:25 AM Provider has discussed Code Status No, discussion no t w/Patient or Family? necessary based on Dx
--- OUTSIDE RECORDS SUMMARY | 2021-08-31 09:22 | XMS REPORT | Encounter Summary ---
Author Author [facility] Organization [facility] Address Unknown Phone Unavailable Care Team Providers Care Sheet Metal Smith Name Role Phone Saundra Lyles CORY PCP [phone] Reason for Visit * Reason Comments Post-op 1 mo AFL Ablation Hypertension Cholesterol Atrial fibrillation CAD * Consult, Test & Treat (Routine) Referred By Contact Referred To Contact Status Reason Specialty Diagnoses / Procedures Grecia Unger APRN-QUALITY ASSURANCE MONITOR FINAL [address] [place] [address] Pending Review Procedures REQUEST FOR CARDIOLOGY APPOINTMENT Encounter Details Care Team Description Date Type Department Marjorie Ivy APRN-QUALITY ASSURANCE MONITOR FINAL [address], [place] [id number] Post-op (1 mo AFL Ablation); Hypertensi on; Cholesterol; Atrial fibrillation; CAD 07/15/2021 [facility] Visit [facility]: [facility], [address] [place] [address]. [address], [address] [place] [address] Social History Date Tobacco Use Types Packs/Day [...] / COVID-19? documented as of this encounter Last Filed Vital Signs Reading Time Taken Comments Vital Sign 124/62 07/15/2021 9:18 AM CDT Blood Pressure 66 07/15/2021 9:18 AM CDT Pulse - - Temperature - - Respiratory Rate 97% 07/15/2021 9:18 AM CDT Oxygen Saturation - - Inhaled Oxygen Concentration 132.1 kg (291 lb 3.2 oz) 07/15/2021 9:18 AM CDT Weight 177.8 cm (5' 10") 07/15/2021 9:18 AM CDT Height 41.78 07/15/2021 9:18 AM CDT Body Mass Index documented in this encounter Functional Status Date of Assessment [...] impairment: No documented as of this encounter Patient Instructions * Patient Instructions* Rosemary Lopez RN - 07/15/2021 9:30 AM CDT -no changes -follow up with Dr. Juarez as scheduled 09/16/21 For NON-URGENT questions please contact us through your [employer] account. For all medication refills please contact your pharmacy or send a request hector [employer]. For all questions that may need to be addressed urgently please call the nursing triage line at [phone] Sunday - Sunday 8am-3pm only. Messages left after this timeframe will be addressed the next business day. Please leave a detailed message with your name, date of , and reason for your call. This number is not to be used for emergencies. To schedule an appointment with an electrophysiology (EP) provider, call [phone], for general cardiology call [phone]. Please allow 10-14 business days for the results of any testing to be reviewed. Please call our office if you have not heard from a nurse within this time frame . Lab and test results: As a part of the CARES act, starting 02/10/2021, some resul ts will be released to you via [employer] immediately and automatically. You may s ee results before your provider sees them; however, your provider will review al l these results and then they, or one of their team, will notify you of result i nformation and recommendations. Critical results will be addressed immediately , but otherwise, please allow us time to get back with you prior to you reaching out to us for questions. This will usually take about 72 hours for labs and 5-7 days for procedure test results. documented in this encounter Progress Notes * Marjorie Ivy APRN-JANICE - 07/15/2021 9:30 AM CDT Date of Service: 07/15/2021 Porfirio Cornejo is a 55 y.o. male. HPI Porfirio Cornejo was seen in the office today in electrophysiology follow up. As you may know, he is a 55 y.o. male, with past medical history including paroxys mal atrial flutter, remote history of postoperative atrial fibrillation in 2019, IVCD, first-degree AV block, CAD with chronically occluded LAD and OMB with galina nt to the RCA, prior severe LV dysfunction with recovery of ejection fraction, P VD, essential hypertension, hyperlipidemia, asthma, obstructive sleep apnea, DM, who was followed by Dr. Juarez and by Dr. Franklin locally. He was referred to Dr. Juarez for ablation of CTI dependent atrial flutter which he successfully underw ent on 06/02/2021. He presents to clinic today for 1 month follow-up. Mr. Hagen reports that he is in his baseline state of health. He has had no kno wn recurrent atrial arrhythmias to his knowledge. Previously, he was very sympt omatic with his episodes. His puncture sites have healed well. Preliminary ECG obtained in clinic today shows sinus rhythm with first-degree AV block and othe rwise normal conduction. Vitals: 07/15/21 0918 BP: 124/62 BP Source: Arm, Left Upper Patient Position: Sitting Pulse: 66 SpO2: 97% Weight: 132.1 kg (291 lb 3.2 oz) Height: 1.778 m (5' 10") PainSc: Zero Body mass index is 41.78 kg/m. Past Medical History Patient Active Problem List Diagnosis Date Noted DM (diabetes mellitus) ([facility]) 05/01/2021 HLD (hyperlipidemia) 05/01/2021 Essential hypertension 05/01/2021 Asthma 05/01/2021 DAISY (obstructive sleep apnea) 05/01/2021 Depression 05/01/2021 Anxiety 05/01/2021 Arthritis 05/01/2021 Rheumatic fever 05/01/2021 Bipolar disorder ([facility]) 05/01/2021 CAD (coronary artery disease) 05/01/2021 05/25/2020 - ECHO: ([facility]) LV dysfunction with anterior and apical hypokinesis and an EF of 50%. LVH. LA chamber enlargement. Structurall y normal MV with mild regurgitation. Atrial flutter ([facility]) 05/01/2021 Review of Systems Constitutional: Negative. HENT: Negative. Eyes: Negative. Cardiovascular: Negative. Respiratory: Negative. Endocrine: Negative. Hematologic/Lymphatic: Negative. Skin: Negative. Musculoskeletal: Negative. Gastrointestinal: Negative. Genitourinary: Negative. Neurological: Negative. Psychiatric/Behavioral: Negative. Allergic/Immunologic: Negative. All other systems reviewed and are negative. Physical Exam General Appearance: no acute distress, he is in a wheelchair Skin: warm & intact HEENT: unremarkable, very large neck circumference Neck Veins: neck veins are flat & not distended Chest Inspection: chest is normal in appearance Auscultation/Percussion: lungs clear to auscultation, no rales, rhonchi, or whee zing Cardiac Rhythm: regular rhythm & normal rate Cardiac Auscultation: Normal S1 & S2, no S3 or S4, no rub Murmurs: no cardiac murmurs Extremities: trace lower extremity edema Neurologic Exam: oriented to time, place and person; no focal neurologic deficit s Psychiatric: Normal mood and affect. Behavior is normal. Judgment and thought c ontent normal. Cardiovascular Studies As above Problems Addressed Today Encounter Diagnoses Name Primary? Typical atrial flutter (HCC) Yes Assessment and Plan DETAILED UPDATED PMHx: -- 07/2019: Cervical Discectomy and Fusion (07/2019) Complicated by Prolonged Hos pitalization with Cervical Hematoma Requiring Intubation, Hypoxia, AFIB, Coded w ith Arrest and Multiple Shocks, EF 35 to 40% at That Time, Cardiac Catheterizati on with Chronically Occluded LAD and OMB Which Were Recanalized and Stented RCA Stent Was Widely Patent. -- 12/18/2019: Cardiac Catheterization: reportedly showing chronically occluded LA D as well as subtotal occlusion of the mid OMB vessel, large dominant RCA was st ented after FFR, PDA at 25% narrowing. -- 01/2021: Abnormal Stress Imaging by Dr. Franklin--> Cath -- 02/16/21: Cardiac Catheterization at [facility] by Dr. Franklin: Severe Stenosis in the proximal RCA status post successful stenting using Marcia 3.5 x 18 mm ove rlapping with an old stent in the mid RCA expanding to 3.8 mm with excellent res ult; patent stent in the LAD; mild CAD; normal LVEDP -- 05/2020: Left Leg Cellulitis Requiring Wheelchair and Prolonged antibiotics -- 05/25/2020: ECHO: ([facility]) LV dysfunction with anterior and apical hypokinesis and an EF of 50%. LVH. LA chamber enlargement. Structural ly normal MV with mild regurgitation. -- 03/19-: ADMIT/H[facility]PITALIZED at [facility] in [facility] Diagnosis of Sepsis, Pneumonia and Paroxysmal Atrial Flutter. "Converted Spon taneously/on Diltiazem. Amiodarone Initiated. Eliquis initiated -- 05/05/21: Initiated care with Dr. Juarez. Elected to schedule ablation for CTI flutter -- 06/02/21: Successful RF ablation of CTI dependent AFL with Dr. Juarez -- 07/15/21: OV with Marjorie - doing very well. No known recurrence. Dr. Franklin would like pt to remain on Eliquis until August. Has f/u with [facility] in Sep. Overall, Mr. Cornejo is doing quite well since his ablation for typical atrial flu tter on 06/02/[address] Juarez. He typically follows with Dr. Franklin who he sa w just last week. He would like for him to stay on Eliquis until August, which I think is acceptable. Mr. Hagen has a follow-up appointment in September with Dr. Juarez Thank you for allowing me to participate in the care of this pleasant patient Pl ease reach out with additional questions or concerns. CESIA [facility] Heart Rhythm Management Department of Cardiovasular Medicine Current Medications (including today's revisions) albuterol-ipratropium (DUONEB) 0.5 mg-3 mg(2.5 mg base)/3 mL nebulizer solut ion Inhale 3 mL solution by nebulizer as directed four times daily. apixaban (ELIQUIS) 5 mg tablet Take 5 mg by mouth twice daily. aspirin EC 81 mg tablet Take 81 mg by mouth daily. Take with food. atorvastatin (LIPITOR) 40 mg tablet Take 40 mg by mouth daily. cariprazine (VRAYLAR) 1.5 mg cap Take by mouth daily. clopiDOGrel (PLAVIX) 75 mg tablet Take 75 mg by mouth daily. dapagliflozin (FARXIGA) 10 mg tablet Take 10 mg by mouth daily. divalproex (DEPAKOTE ER) 500 mg ER tablet Take 500 mg by mouth twice daily. Take with food. LEVEMIR FLEXTOUCH U-100 INSULN 100 unit/mL (3 mL) injection pen metFORMIN (GLUCOPHAGE) 1,000 mg tablet Take 500 mg by mouth twice daily. nitroglycerin (NITROSTAT) 0.4 mg tablet as directed oxyCODONE/acetaminophen (PERCOCET) 5/325 mg tablet Take 1 tablet by mouth ev eleanor 4 hours as needed for Pain pantoprazole DR (PROTONIX) 40 mg tablet Take 40 mg by mouth daily. pregabalin (LYRICA) 150 mg capsule Take 150 mg by mouth three times daily. rOPINIRole (REQUIP) 0.5 mg tablet Take 1 mg by mouth at bedtime daily. sertraline (ZOLOFT) 100 mg tablet Take 100 mg by mouth daily. SPIRIVA WITH HANDIHALER 18 mcg capsule for inhaler tamsulosin (FLOMAX) 0.4 mg capsule Take 0.4 mg by mouth daily. Do not crush, chew or open capsules. Take 30 minutes following the same meal each day. documented in this encounter Plan of Treatment Not on filedocumented as of this encounter Procedures Comments Procedure Name Priority Date/Time Associated Diag nosis ECG-SCAN 07/15/2021 12:00 AM CDT documented in this encounter Results * ECG-SCAN (07/15/2021 12:00 AM CDT) Narrative Performed At This result has an attachment that is n ot available. Ordered by an unspecified provider. documented in this encounter Visit Diagnoses Diagnosis Typical atrial flutter (HCC) - Primary Atrial flutter documented in this encounter Discontinued Medications Start Date End Date Medication Sig Discontinue Reason 07/15/2021 furosemide (LASIX) 40 mg Take 40 mg Therapy tablet by mouth completed daily. 07/15/2021 glyBURIDE (DIABETA) 1.25 Take 1.25 mg Therapy mg tablet by mouth completed daily. Take with food. 07/15/2021 losartan (COZAAR) 25 mg Take 25 mg Therapy tablet by mouth completed daily. documented as of this encounter Orders First Ordered Date Appointment Count Last Ordered Date REQUEST FOR CARDIOLOGY APPOINTMENT 1 01/2021 documented in this encounter Additional Health Concerns Assessment Noted Time A fall risk assessment has been completed for the pat ient 07/15/2021 9:18 AM CDT documented as of this encounter
[2021-08-31] MEDS ORDERED: LACTATED RINGERS 1,000 ML IV ONE (09:25)
[2021-08-31] MEDS ORDERED: proPOfol 200 MG/20 ML (DIPRIVAN) VIAL IV ONE ×2 (09:26→11:09)
[2021-08-31] MEDS ORDERED: LACTATED RINGERS 1,000 ML IV STA (09:38)
[2021-08-31 09:40] VITALS: BP 128/77
[2021-08-31] MEDS ORDERED: LIDOCAINE JELLY 2% 6 ML SYRINGE MM PRN (09:45)
--- NOTE | 2021-08-31 10:37 | Progress Note-Pre Operative ---
Pre-Operative Progress Note H&P Reviewed The H&P was reviewed, patient examined and no changes noted. Date Seen by Provider: Aug 31, 2021 Time Seen by Provider: 10:00 Date H&P Reviewed: Aug 31, 2021 Time H&P Reviewed: 10:00 Pre-Operative Diagnosis: screening, cologaurd + THEO BIRD MD Aug 31, 2021 10:37
--- NOTE | 2021-08-31 10:38 | Discharge Inst-Surgical ---
D/C Lap Instructions-PELON Follow Up Activity as tolerated High Fiber Diet 25g or more per day Avoid Alcohol, Caffeine, Spicy Mcdonough and Acid foods. Drink 64 fluid oz or more of fluids per day. Symptoms to Report: Fever over 101 degree F, Nausea/Vomiting If any problems/questions: Contact your physician or go to Emergency Room THEO BIRD MD Aug 31, 2021 10:38
[2021-08-31] MEDS ORDERED: ONDANSETRON 4 MG/2 ML (SDV) Z0FRAN IVP PRN (10:45)
[2021-08-31] MEDS ORDERED: ONDANSETRON 4 MG (ZOFRAN) ORAL DISSOLVE TAB PO PRN (10:45)
[2021-08-31 11:25] VITALS: BP 136/90
[2021-08-31 11:30] VITALS: BP 140/72
[2021-08-31 11:35] VITALS: BP 140/72
--- NOTE | 2021-08-31 11:36 | Progress Note-Post Operative ---
Post-Operative Progess Note Surgeon (s)/Hydro Station Supervisor (s) Surgeon THEO BIRD MD Hydro Station Supervisor: none Pre-Operative Diagnosis screening, cologaurd + Post-Operative Diagnosis chronic stage 2 ext and int hemorrhoids, 1cm pedunculated polyp rectosigmoid, mild sigmoid diverticulosis, 2 small splenic flexure polyps(3 and 2 mm) Procedure & Operative Findings Date of Procedure 08/31/21 Procedure Performed/Findings colonoscopy with snare polypectomy x2, bx forcep polyp x1. Anesthesia Type mac Estimated Blood Loss Estimated blood loss (mL): minimal Specimens/Packing Specimens Removed rectosigmoid polyp, splenic flex polyp x2 THEO BIRD MD Aug 31, 2021 11:36
[2021-08-31 11:55] VITALS: BP 140/72
--- NOTE | 2021-08-31 14:11 | Anesthesia-General Post-Op ---
MAC Patient Condition Mental Status/LOC: Same as Preop Cardiovascular: Satisfactory Nausea/Vomiting: Absent Respiratory: Satisfactory Pain: Controlled Complications: Absent Post Op Complications Complications None Follow Up Care/Instructions Patient Instructions None needed. Anesthesiology Discharge Order Discharge Order Patient is doing well, no complaints, stable vital signs, no apparent adverse anesthesia problems. No complications reported per nursing. ANDREEA DURANT CRNA Aug 31, 2021 14:11
--- NOTE | 2021-08-31 17:29 | OPERATIVE REPORT ---
DATE OF SERVICE: 08/31/2021 ATTENDING PRIMARY CARE PHYSICIAN: Elizabeth Ramey APRN PREOPERATIVE DIAGNOSES: Positive Cologuard test and screening colonoscopy. POSTOPERATIVE DIAGNOSES: Mild chronic stage II external and internal hemorrhoids, 1 cm pedunculated polyp at the rectosigmoid junction, two small adjacent polyps of the splenic flexure approximately 2 to 3 mm in size, mild sigmoid diverticulosis. PROCEDURE: Colonoscopy with snare polypectomy x2 and excision with forceps and electrocautery. SURGEON: Theo Bird MD ANESTHESIA: Monitored anesthesia care. ESTIMATED BLOOD LOSS: Minimal. FINDINGS: Same as postoperative diagnoses. DISPOSITION: The patient tolerated the procedure well. INDICATIONS: The patient is a 55-year-old male referred over to us for screening colonoscopy. He has not had a colonoscopy up to this point in his life. He states that he did have a Cologuard test and this was found to be positive. He does not report any red blood per rectum nor any dark tarry stools. He does not report any family history of colon cancer. He did have cardiac arrhythmia as well as a cardiac catheterization and two stents placed and underwent a cardiac ablation. Since that time, he has been on Eliquis, Plavix as well as aspirin. DESCRIPTION OF PROCEDURE: The patient was brought to the endoscopy suite, laid in the left lateral decubitus position. After adequate IV pain and sedative medications and monitored anesthesia care, a digital rectal examination was performed. Mild stage II external and internal hemorrhoids were identified, which were not actively edematous nor inflamed and no bleeding. Normal sphincter tone was felt and there were no palpable masses. Prostate gland was palpable and appeared normal. The endoscope was then intubated and anus and rectum gently insufflated. The endoscope was then advanced through the valves of Melgar of the rectum. At the rectosigmoid junction, a pedunculated polyp approximately 1 cm in size was identified. This was excised at the stalk using a snare and electrocautery and then retrieved. Good hemostasis was observed. Through the sigmoid colon, mild sigmoid diverticulosis identified. At approximately the splenic flexure, two small polyps that were adjacent to each other, one slightly more proximal and one more distal both approximately 2 to 3 mm in size. A slightly larger one was excised by snare and retrieved through the scope and the other was biopsied and destroyed with forceps and electrocautery. The endoscope was then advanced and remainder of the transverse and ascending colon to the cecum, which were normal. Endoscope was then slowly withdrawn while taking a second look and suctioning of residual air with no additional findings. The patient tolerated the procedure well. We will recommend a high fiber diet with at least 30 grams of fiber daily as well as significant amounts of water to promote soft stools on a daily basis. Due to the size of the polyp as well as a multifocality of polyps, we will recommend a followup colonoscopy in approximately 3 years. Job ID: [id number] DocumentID: [id number] Dictated Date: 08/31/2021 11:30:53 Early Interventionist Date: 08/31/2021 17:27:57 Dictated By: THEO BIRD MD MTDD
== END 2021-08-31 12:00 | disposition home or self-care (01) ==
LOC: ENDO 09:17
PROVIDERS: ATTEND Surgery
DX: D12.8 Benign neoplasm of rectum (principal); K63.5 Polyp of colon; D12.3 Benign neoplasm of transverse colon; R19.5 Other fecal abnormalities; K64.4 Residual hemorrhoidal skin tags; K64.1 Second degree hemorrhoids; K57.30 Diverticulosis of large intestine without perforation or abscess without bleeding; I25.10 Atherosclerotic heart disease of native coronary artery without angina pectoris; I10 Essential (primary) hypertension; I48.92 Unspecified atrial flutter; E78.5 Hyperlipidemia, unspecified; G47.33 Obstructive sleep apnea (adult) (pediatric); J44.9 Chronic obstructive pulmonary disease, unspecified; E11.40 Type 2 diabetes mellitus with diabetic neuropathy, unspecified; E78.00 Pure hypercholesterolemia, unspecified; G25.81 Restless legs syndrome; F31.9 Bipolar disorder, unspecified; Z79.01 Long term (current) use of anticoagulants; Z79.84 Long term (current) use of oral hypoglycemic drugs; Z79.891 Long term (current) use of opiate analgesic; Z95.1 Presence of aortocoronary bypass graft; Z99.89 Dependence on other enabling machines and devices; Z87.891 Personal history of nicotine dependence; Z79.82 Long term (current) use of aspirin; Z79.4 Long term (current) use of insulin
CPT/HCPCS: 82947

== ENCOUNTER → 2021-09-07 | Outpatient (CLI) | payer MEDICARE, MEDICAID | LOC: LABNPT 08:22 | PROVIDERS: ATTEND Nurse Practitioner Family | DX: G47.33 Obstructive sleep apnea (adult) (pediatric) (principal); Z20.822 Contact with and (suspected) exposure to COVID-19 | CPT/HCPCS: 87635 ==

== ENCOUNTER 2021-09-09 19:40 | Outpatient (CLI) | payer MEDICARE, MEDICAID | END 2021-09-10 05:00 | disposition home or self-care (01) | LOC: SLEEP 19:40 | PROVIDERS: ATTEND Nurse Practitioner Family | DX: G47.33 Obstructive sleep apnea (adult) (pediatric) (principal); G47.10 Hypersomnia, unspecified; J44.9 Chronic obstructive pulmonary disease, unspecified; I11.0 Hypertensive heart disease with heart failure; I50.9 Heart failure, unspecified; E11.40 Type 2 diabetes mellitus with diabetic neuropathy, unspecified; E78.5 Hyperlipidemia, unspecified | CPT/HCPCS: 95811 ==

== ENCOUNTER → 2022-02-06 | Outpatient (CLI) | payer MEDICARE, MEDICAID ==
[~2022-02-06] MED LIST changes: -AMIO200T6 PO; +AMIO200T65 PO; +CYCL10TA25 PO; -CYCL10TA9 PO; +RT-ALBUTEROL SULF 2.5 MG/3 ML PRE-MIX VIAL INH ONE
== END ==
LOC: RT 09:15
PROVIDERS: ATTEND Nurse Practitioner Family
DX: J44.9 Chronic obstructive pulmonary disease, unspecified (principal)
CPT/HCPCS: 94060; 94726; 94729

== ENCOUNTER → 2022-02-22 | Outpatient (CLI) | payer MEDICARE, MEDICAID ==
[~2022-02-22] MED LIST changes: +ONDANSETRON 4 MG (ZOFRAN) ORAL DISSOLVE TAB PO ONE; +ONDANSETRON 4 MG/2 ML (SDV) Z0FRAN IVP ONE; +ONDANSETRON 4 MG/2 ML (SDV) Z0FRAN ONE; +REGADENOSON 0.4 MG/5 ML SYR (LEXISCAN) IV ONE; -RT-ALBUTEROL SULF 2.5 MG/3 ML PRE-MIX VIAL INH ONE
[2022-02-22] MEDS: CATHETER FLUSH 10 ML SYR IVP PRN ×2 (12:19→13:22)
[2022-02-22 13:22] VITALS: BP 147/92
--- NOTE | 2022-02-22 15:14 | Cardiology Stress Test Report ---
Stress Test Report Date of Procedure/Referring: Date of Procedure: Feb 22, 2022 PCP Alina Franklin MD Admitting Physician Hi Smith - [facility] Of Indications: cp Baseline Heart Rate: 64 Baseline Blood Pressure: Blood Pressure Systolic: 147 Blood Pressure Diastolic: 92 Baseline Vitals Vital Signs Date Time Temp Pulse Resp B/P (MAP) Pulse Ox O2 Delivery O2 Flow Rate FiO2 02/22/22 13:20 65 16 97 Room Air Baseline EKG: Baseline EKG: NSR Summary After explaining the procedure to the patient, he signed a consent and then brought to the stress nuclear laboratory. Patient received 0.4 mg Lexiscan for stress test, ECG, heart rate and blood pressure were monitored continuously. Resting and stress dose of radio tracer were injected, imaging was acquired and reviewed in short axis, horizontal long axis and vertical long axis views. TID: 0.97 SSS: 7 SDS: 6 EF: 45 1. Patient tolerated Lexiscan. 2. Patient developed frequent PVCs, ventricular bigeminy persisted during recovery 3. Reversible ischemia involving the mid to apical anterior wall and true apex 4. Normal left ventricular size with hypokinesia noted diffusely, ejection fraction 45% ALINA FRANKLIN MD Feb 22, 2022 15:13
== END ==
LOC: CARD 11:30
PROVIDERS: ATTEND Internal Medicine Cardiovascular Disease
DX: I11.9 Hypertensive heart disease without heart failure (principal); I25.10 Atherosclerotic heart disease of native coronary artery without angina pectoris
CPT/HCPCS: 78452; 93017; 93306; A9502

== ENCOUNTER 2022-03-01 08:00 | Day surgery (SDC) | payer MEDICARE, MEDICAID ==
[2022-03-01] VITALS (10 sets, daily range): BP systolic 97–136; BP diastolic 69–91
[~2022-03-01] VITALS: Ht 177.8 cm; Wt 126.9 kg
[2022-03-01 07:38] LABS: BILIRUBIN,URINE NEGATIVE (NEGATIVE); CLARITY,URINE CLEAR; COLOR,URINE YELLOW; GLUCOSE, URINE (UA) 3+ (NEGATIVE); KETONES,URINE NEGATIVE (NEGATIVE); LEUKOCYTE ESTERASE ,URINE NEGATIVE (NEGATIVE); NITRITE,URINE NEGATIVE (NEGATIVE); PH,URINE 7.5 (5-9); PROTEIN,URINE 1+ (NEGATIVE)
[2022-03-01 07:43] LABS: HEMATOCRIT 41 % (40-54); HEMOGLOBIN 12.7 g/dL (13.3-17.7); MEAN CORPUSCULAR HEMOGLOBIN 23 pg (25-34); MEAN CORPUSCULAR HGB CONC 31 g/dL (32-36); MEAN CORPUSCULAR VOLUME 75 fL (80-99); MEAN PLATELET VOLUME 8.7 fL (9.0-12.2); PLATELET COUNT 146 10^3/uL (130-400); WHITE BLOOD COUNT 8.4 10^3/uL (4.3-11.0)
[2022-03-01 07:44] LABS: BACTERIA,URINE NEGATIVE /HPF; SQUAMOUS EPITHELIAL CELL,UR 0-2 /HPF
[2022-03-01 07:49] LABS: INR 0.9 (0.8-1.4); PROTHROMBIN TIME PATIENT 12.7 SEC (12.2-14.7)
[2022-03-01 07:58] LABS: ALBUMIN 4.1 GM/DL (3.2-4.5); BILIRUBIN,TOTAL 0.5 MG/DL (0.1-1.0); CALCIUM 9.3 MG/DL (8.5-10.1); CREATININE SERUM 0.94 MG/DL (0.60-1.30); POTASSIUM 3.4 MMOL/L (3.6-5.0); TOTAL PROTEIN 6.8 GM/DL (6.4-8.2)
[~2022-03-01 08:00] MED LIST changes: +HEParin (CATH LAB) 2,000 ML IV ONE; +HEParin 1000 UNIT/ML (10ML VIAL) FOR BOLUS ONE; +LIDOCAINE 1% INJ 50 ML (XYLOCAINE) VIAL ONE; +MIDAZOLAM 5 MG/5 ML (VERSED) VIAL ONE; +NITRO DRIP 25000 MCG/D5W 250 ML IV ONE; +NS IV 1000 ML 1,000 ML IV SCH; +NS IV 1000 ML 1,000 ML ONE; -ONDANSETRON 4 MG (ZOFRAN) ORAL DISSOLVE TAB PO ONE; -ONDANSETRON 4 MG/2 ML (SDV) Z0FRAN IVP ONE; -ONDANSETRON 4 MG/2 ML (SDV) Z0FRAN ONE; -REGADENOSON 0.4 MG/5 ML SYR (LEXISCAN) IV ONE; +VERAPAMIL 5 MG/2 ML (CALAN) VIAL IV ONE; +fentaNYL INJ 100 MCG/2 ML AMP ONE
--- NOTE | 2022-03-01 08:12 | Diagnostic Imaging Report ---
INDICATION: Pre-heart catheterization. Time of Exam: 7:27 AM Correlation is made with prior chest from 03/24/2021. The heart size normal. There is some minimal scarring or atelectasis in the left base. Otherwise lungs are clear. No infiltrates are seen. There is no effusion or pneumothorax. IMPRESSION: Minimal left basilar subsegmental atelectasis or scarring. Study is otherwise unremarkable. Dictated by: Dictated on workstation # [id number]
--- NOTE | 2022-03-01 08:30 | Conscious Sedation/ASA ---
Conscious Sedation Pre-Proced Time 08:29 ASA Score 3 For ASA 3 and 4: Consider anesthesia and medical clearance. Also, for patients with a history of failed moderate sedation consider anesthesia. Airway Lungs Heart ASA score ASA 1: a normal healthy patient ASA 2: a patient with a mild systemic disease (mid diabetes, controlled hypertension, obesity x ASA 3: a patient with a severe systemic disease that limits activity (angina, COPD, prior Myocardial infarction) ASA 4: a patient with an incapacitating disease that is a constant threat to life (CHF, renal failure) ASA 5: a moribund patient not expected to survive 24 hrs. (ruptured aneurysm) ASA 6: a declared brain- patient whose organs are being harvested. For emergent operations, add the letter E after the classification Mallampati Classification Grade 3 Sedation Plan Analgesia, Amnesia, Plan communicated to team members, Discussed options with patient/fam, Discussed risks with patient/fam The patient is an appropriate candidate to undergo the planned procedure, sedation, and anesthesia. The patient immediately re-assessed prior to indication. ALINA GREGG MD Mar 01, 2022 08:30
[2022-03-01] MEDS ORDERED: METF-478 PO ×2 (08:35→09:13)
[2022-03-01] MEDS ORDERED: FLUT1DIS26 IH (08:35)
[2022-03-01] MEDS ORDERED: CARI1.5C PO (08:35)
[2022-03-01] MEDS ORDERED: BUPR2TAB SL (08:35)
[2022-03-01] MEDS ORDERED: PREG150C PO (08:35)
[2022-03-01] MEDS ORDERED: CETI10TA49 PO (08:35)
[2022-03-01] MEDS ORDERED: HYDR12.56 PO (08:35)
[2022-03-01] MEDS ORDERED: IPRA3AMP31 IH (08:35)
[2022-03-01] MEDS ORDERED: SEMA0.25 SQ (08:35)
[2022-03-01] MEDS ORDERED: ROPI1TAB PO ×2 (08:35)
--- NOTE | 2022-03-01 09:14 | Discharge Inst-Post CATH ---
Discharge Inst-CATH/EP Problems Reviewed?: Yes Post Cardiac Cath/EP D/C Inst Follow Up/Plan Hold metformin for [address] Franklin's office in 2 to 4 weeks <b>CARDIAC CATH/EP PROCEDURE DISCHARGE INSTRUCTIONS</b> ACTIVITY * Go Home directly and rest. * Limit activity of the leg (or wrist if it was used) for 7 days including aerobics, swimming, jogging, bicycling, etc. * Restrict stair-climbing for 7 days if possible, if not, climb up with your non-cath leg, then bring together on the same step. * Avoid lifting, pushing, pulling or excessive movement of the affected extremity for 7 days. * Customary sexual activity may be resumed after 2 days-use caution not to use a position that strains or causes pain to the affected extremity. * No driving for 24 hours. * NO SMOKING. * Avoid straining for bowel movements for 7 days. * Gentle walking on level ground is allowed. * Returning to work will depend on the type of procedure and the results. Your doctor will discuss this with you. CALL YOUR DOCTOR FOR ANY OF THE FOLLOWING: *If bleeding from the puncture site occurs- Apply gentle pressure to site with clean cloth and call your doctor or EMS. * If a knot or lump forms under the skin, increases in size, or causes pain. * If bruising appears to be worsening or moving further down your leg instead of disappearing. * Temperature above 101 F. CARE OF YOUR GROIN INCISION; * Bruising or purple discoloration of the skin near the puncture site is common. * You may shower only, no bathtub bathing for 5 days. Be careful to avoid slipping as your leg may feel stiff. * If a closure device was used on your femoral artery, please see the attached guide regarding care of the device and your leg. * Leave dressing on FOR 24 hours. CARE OF YOUR WRIST INCISION; * Bruising or purple discoloration of the skin near the puncture site is common. * You may shower. * DO NOT submerge wrist. * Leave dressing on FOR 24 hours. ALINA FRANKLIN MD Mar 01, 2022 09:14
[2022-03-01] MEDS ORDERED: NS IV 1000 ML 1,000 ML IV SCH (09:15)
--- NOTE | 2022-03-01 09:17 | Cardiac Cath Report ---
Cardiac Cath Report Physician (s)/Senior Financial (s) Physician ALINA GREGG MD Pre-Procedure Diagnosis Pre-Procedure Diagnosis: Coronary artery disease Post-Procedure Note Procedure Start Date: Mar 01, 2022 Name of Procedure: Left heart catheterization Findings/Procedure Note PROCEDURE NOTE: 56-year-old gentleman with history of coronary artery disease multiple interventions in the past, diabetes mellitus, hypertension hyperlipidemia, had an abnormal stress test and scheduled for cardiac catheterization possible PTCA. After explaining the procedure to the patient, all pros and cons were explained, all questions were answered. The patient signed the consent and then he was placed on the cardiac catheterization laboratory. Groin was prepped SL fashion local anesthesia was used. Sheath placed in the right radial artery, [place] cat heter was advanced to the left ventricular cavity, pressure was measured, pullback LV to aorta was done, engage the right and left coronary system, angiogram was done. At the end of the procedure the sheath was removed. Vascular band was used FINDINGS: Hemodynamics LV 104/17, end-diastolic pressure of 17 Aorta 93/67 mean of 78 ANATOMY: Left Main is free of obstructive disease Left Anterior Descending has patent stent proximally with mild to moderate disease at the midportion nonobstructive disease Left Circumflex has patent stent with mild disease nonobstructive disease Right Coronary Artery has patent stents with mild disease at the midportion nonobstructive disease LV Gram was not done, pressure was measured CONCLUSION: 1. Patent stents in the LAD, left circumflex artery and right coronary artery with mild to moderate disease nonobstructive disease 2. Normal left ventricular end-diastolic pressure DISCUSSION AND RECOMMENDATION: Continue with maximizing medical therapy, patient has significant elevated triglyceride, educated on tight diabetic control and continue on atorvastatin Anesthesia Type: Conscious Sedation Estimated blood loss (mL): 10 ml Contrast Amount: 40 ml Total Radiation Dose: 430 mGy Post-Procedure Diagnosis Post-operative diagnosis: Coronary artery disease Hypertension Hyperlipidemia Diabetes mellitus ALINA GREGG MD Mar 01, 2022 09:17
== END 2022-03-01 12:40 | disposition home or self-care (01) ==
LOC: CATH 08:00 → SDC 09:24 → CATH 12:40
PROVIDERS: ATTEND Internal Medicine Cardiovascular Disease
DX: I25.10 Atherosclerotic heart disease of native coronary artery without angina pectoris (principal); E78.2 Mixed hyperlipidemia; I11.0 Hypertensive heart disease with heart failure; I50.22 Chronic systolic (congestive) heart failure; I25.5 Ischemic cardiomyopathy; E11.51 Type 2 diabetes mellitus with diabetic peripheral angiopathy without gangrene; J44.9 Chronic obstructive pulmonary disease, unspecified; G47.33 Obstructive sleep apnea (adult) (pediatric); I48.0 Paroxysmal atrial fibrillation; I48.92 Unspecified atrial flutter; Z95.5 Presence of coronary angioplasty implant and graft; Z87.891 Personal history of nicotine dependence; Z79.82 Long term (current) use of aspirin; Z79.4 Long term (current) use of insulin; Z79.899 Other long term (current) drug therapy
CPT/HCPCS: 71045; 80053; 80061; 81000; 85027; 85610; 85730; 87081; 93005; 93458; C1894; 36415

== ENCOUNTER → 2022-07-11 | Outpatient (CLI) | payer MEDICARE, MEDICAID ==
[~2022-07-11] MED LIST changes: +BUPR2TAB SL; +CETI10TA49 PO; +FLUT1DIS26 IH; -HEParin (CATH LAB) 2,000 ML IV ONE; -HEParin 1000 UNIT/ML (10ML VIAL) FOR BOLUS ONE; +HYDR12.56 PO; +IPRA3AMP31 IH; -LIDOCAINE 1% INJ 50 ML (XYLOCAINE) VIAL ONE; -MIDAZOLAM 5 MG/5 ML (VERSED) VIAL ONE; -NITRO DRIP 25000 MCG/D5W 250 ML IV ONE; -NS IV 1000 ML 1,000 ML IV SCH; -NS IV 1000 ML 1,000 ML ONE; +SEMA0.25 SQ; -VERAPAMIL 5 MG/2 ML (CALAN) VIAL IV ONE; -fentaNYL INJ 100 MCG/2 ML AMP ONE
--- NOTE | 2022-07-11 11:12 | Diagnostic Imaging Report ---
INDICATION: Constipation Supine and upright abdomen Lung bases are clear. Bowel gas pattern is normal. There are no pathologic masses or calcifications. IMPRESSION: No acute abnormalities in the abdomen. Dictated by: Dictated on workstation # [id number]
== END ==
LOC: RAD FS 10:34
PROVIDERS: ATTEND Pediatrics
DX: K59.01 Slow transit constipation (principal)
CPT/HCPCS: 74019

== ENCOUNTER 2022-07-15 10:58 | Emergency (ER) | payer MEDICARE, MEDICAID ==
[~2022-07-15] VITALS: Ht 177.8 cm; Wt 99.7 kg
[2022-07-15] MEDS ORDERED: LACTATED RINGERS 1,000 ML IV ONE (11:30)
[2022-07-15] MEDS ORDERED: ONDANSETRON 4 MG/2 ML (SDV) Z0FRAN ONE (11:37)
[2022-07-15 11:50] LABS: HEMOGLOBIN 12.8 g/dL (13.3-17.7)
[2022-07-15 11:52] LABS: BASOPHILS % (AUTO) 0 % (0-10); EOSINOPHILS % (AUTO) 0 % (0-10); HEMATOCRIT 40 % (40-54); LYMPHOCYTES # (AUTO) 0.5 10^3/uL (1.0-4.0); LYMPHOCYTES % (AUTO) 5 % (12-44); MEAN CORPUSCULAR HEMOGLOBIN 25 pg (25-34); MEAN CORPUSCULAR HGB CONC 32 g/dL (32-36); MEAN CORPUSCULAR VOLUME 78 fL (80-99); MEAN PLATELET VOLUME 9.8 fL (9.0-12.2); MONOCYTES # (AUTO) 0.9 10^3/uL (0.0-1.0); MONOCYTES % (AUTO) 8 % (0-12); NEUTROPHILS # (AUTO) 9.2 10^3/uL (1.8-7.8); NEUTROPHILS % (AUTO) 86 % (42-75); PLATELET COUNT 165 10^3/uL (130-400); WHITE BLOOD COUNT 10.7 10^3/uL (4.3-11.0)
[2022-07-15 12:14] LABS: ALBUMIN 3.8 GM/DL (3.2-4.5)
[2022-07-15 12:15] LABS: CALCIUM 9.8 MG/DL (8.5-10.1); NEUTROPHILS % (MANUAL) 90 %
[2022-07-15 12:16] LABS: BASOPHILS % (MANUAL) 0 %; EOSINOPHILS % (MANUAL) 0 %; LYMPHOCYTES % (MANUAL) 4 %; MONOCYTES % (MANUAL) 6 %; TOTAL PROTEIN 6.5 GM/DL (6.4-8.2)
[2022-07-15 12:17] LABS: ANISOCYTOSIS MODERATE
[2022-07-15 12:18] LABS: BILIRUBIN,TOTAL 0.6 MG/DL (0.1-1.0)
[2022-07-15 12:20] LABS: CREATININE SERUM 0.86 MG/DL (0.60-1.30)
[2022-07-15 12:23] LABS: MAGNESIUM 1.6 MG/DL (1.6-2.4)
--- NOTE | 2022-07-15 12:41 | ED GI ---
General Chief Complaint: Abdominal/GI Problems Stated Complaint: VOMITING/NAUSEA/WEAKNESS Nursing Triage Note: PT TO RM 5 WITH CC OF ABD PAIN, WGT LOSS, NAUSEA AND VOMITING FOR SEVERAL WEEKS. PT STATES WGT LOSS OF 60LBS IN LAST 2 MONTHS. PT REPORTS STARTED OZEMPIC ABOUT 2 MONTHS AGO. PT A&OX4. Source of Information: Patient, Family Exam Limitations: No Limitations (KING IRIZARRY MD) History of Present Illness Date Seen by Provider: Jul 15, 2022 Time Seen by Provider: 11:18 Initial Comments This 56-year-old gentleman presents to the emergency room with primary complaint of nausea and vomiting. He has had minimal abdominal discomfort and has no abdominal tenderness to palpation at this time. He denies fevers. He had been constipated and then had diarrhea after using MiraLAX. He has neither constipation or diarrhea now. He states his problem started in January when he had his upper teeth removed. He started Ozempic about 2 months ago and nausea seem to correspond with that. His last dose of Ozempic was about 10 days ago. He also reports a mass in the right upper gums that seemed to rupture yesterday when he was manipulating it with his tongue. He states blood, pus, and a tooth or bone fragment came out of the wound. It now looks like a large flat ulcerated area with no active drainage or bleeding. Patient is to have the area biopsied with Dr. Heriberto Li next week. His primary care provider is Dr. Deborah Tripp. He denies chest pain or shortness of breath. Nausea resolved with a dose of Zofran 4 mg. Labs and abdominal x-ray were performed in the clinic earlier this week but they have not heard about results yet. (KING IRIZARRY MD) Allergies and Home Medications Allergies Coded Allergies: No Known Drug Allergies (Unverified , 04/23/19) Patient Home Medication List Home Medication List Reviewed: Yes (KING IRIZARRY MD) Aspirin (Aspirin EC) 81 Mg Tablet., 81 MG PO DAILY, (Reported) Entered as Reported by: AVINASH ALEMAN on 03/21/21 1223 Atorvastatin Calcium (Atorvastatin Calcium) 40 Mg Tablet, 40 MG PO HS, (Reported) Entered as Reported by: GUILLERMO GILES on 08/18/19 0957 Buprenorphine HCl (Buprenorphine HCl) 2 Mg Tab.subl, 1 MG SL BID, (Reported) Entered as Reported by: MENDOZA PEACE on 03/01/22 0835 Cariprazine Hydrochloride (Vraylar) 1.5 Mg Capsule, 1.5 MG PO DAILY, (Reported) Entered as Reported by: GUILLERMO GILES on 08/18/19 0957 Cetirizine HCl (Zyrtec) 10 Mg Tablet, 10 MG PO DAILY, (Reported) Entered as Reported by: MENDOZA PEACE on 03/01/22 0835 Clopidogrel Bisulfate (Clopidogrel) 75 Mg Tablet, 75 MG PO DAILY, (Reported) Entered as Reported by: AVINASH ALEMAN on 03/21/21 1223 Dapagliflozin Propanediol (Farxiga) 10 Mg Tablet, 10 MG PO DAILY, (Reported) Entered as Reported by: GUILLERMO GILES on 08/18/19 1003 Divalproex Sodium (Depakote) 500 Mg Tablet.dr, 500 MG PO BID, (Reported) Entered as Reported by: GUILLERMO GILES on 08/18/19 1002 Fluticasone/Salmeterol (Advair 250-50 Diskus) 250 Mcg-50 Mcg/Dose Blst.w.dev, 1 PUFF IH DAILY, (Reported) Entered as Reported by: MENDOZA PEACE on 03/01/22 0835 Hydrochlorothiazide (Hydrochlorothiazide) 12.5 Mg Tablet, 12.5 MG PO DAILY, (R eported) Entered as Reported by: MENDOZA PEACE on 03/01/22 0835 Insulin Detemir (Levemir Flextouch) 100 Unit/1 Ml Insuln.pen, 10 UNITS SQ BID, (Reported) Entered as Reported by: DEBORAH MEJIAS on 08/24/21 0934 Ipratropium/Albuterol Sulfate (Iprat-Albut 0.5-3(2.5) mg/3 ml) 0.5 Mg-3 Mg (2.5 Mg Base)/3 Ml Ampul.neb, 3 ML IH TID PRN for SHORTNESS OF BREATH, (Reported) Entered as Reported by: MENDOZA PEACE on 03/01/22 0835 Metformin HCl (Metformin HCl ER) 500 Mg Tab.er.24, 500 MG PO BID Prescribed by: ALINA GREGG on 03/01/22 0913 Nitroglycerin (Nitrostat) 0.4 Mg Tab.subl, 0.4 MG SL UD PRN for CHEST PAIN (ANGINA), (Reported) Entered as Reported by: DEBORAH MEJIAS on 08/24/21 0934 Pantoprazole Sodium (Pantoprazole Sodium) 40 Mg Tablet.dr, 40 MG PO DAILY, (Reported) Entered as Reported by: GUILLERMO GILES on 08/18/19 0853 Pregabalin (Lyrica) 150 Mg Capsule, 150 MG PO TID, (Reported) Entered as Reported by: MENDOZA PEACE on 03/01/22 0835 Ropinirole HCl (Ropinirole HCl) 1 Mg Tablet, 0.5 MG PO DAILY, (Reported) Entered as Reported by: MENDOZA PEACE on 03/01/22 0835 Ropinirole HCl (Ropinirole HCl) 1 Mg Tablet, 1.5 MG PO HS, (Reported) Entered as Reported by: MENDOZA PEACE on 03/01/22 0835 Semaglutide (Ozempic) 0.25 Mg/0.2 Ml Pen.injctr, 0.5 MG SQ SUNDAY, (Reported) Entered as Reported by: MENDOZA PEACE on 03/01/22 0835 Sertraline HCl (Sertraline HCl) 100 Mg Tablet, 100 MG PO DAILY, (Reported) Entered as Reported by: MENDOZA PEACE on 09/15/20 1732 Tamsulosin HCl (Flomax) 0.4 Mg Cap, 0.4 MG PO HS, (Reported) Entered as Reported by: MENDOZA PEACE on 09/15/20 1158 Review of Systems Review of Systems Constitutional: no symptoms reported EENTM: See HPI Respiratory: No Symptoms Reported Cardiovascular: No Symptoms Reported Gastrointestinal: See HPI Genitourinary: Other (Dark urine) Musculoskeletal: no symptoms reported Skin: no symptoms reported Psychiatric/Neurological: No Symptoms Reported Endocrine: No Symptoms Reported Hematologic/Lymphatic: No Symptoms Reported (KING IRIZARRY MD) Past Hdakccd-Nrfgbo-Kfrgrp Hx Patient Social History Tobacco Use?: No Substance use?: Yes Substance type: Marijuana Substance frequency: Once in a while Alcohol Use?: No Pt feels they are or have been: No (KING IRIZARRY MD) Immunizations Up To Date Tetanus Booster (TDap): Less than 5yrs (KING IRIZARRY MD) Seasonal Allergies Seasonal Allergies: No (KING IRIZARRY MD) Past Medical History Surgery/Hospitalization HX: DM, COPD, CHF, BIPOLAR Surgeries: Yes (RIGHT ROTATOR CUFF) Coronary Stent Respiratory: Yes COPD Currently Using CPAP: Yes Currently Using BIPAP: Yes Cardiac: Yes Atrial Fibrillation, Coronary Artery Disease, High Cholesterol, Hypertension Neurological: Yes Neuropathy, Paralysis Genitourinary: Yes Benign Prostatic Hyperpl, Prostate Problems, Neurogenic Bladder Gastrointestinal: No Chronic Constipation Musculoskeletal: Yes (neck/back injury 1999 recent anterior neck surgery on 12/11/19) Degenerate Disk Disease, Chronic Back Pain Endocrine: Yes Diabetes, Non-Insulin dep HEENT: No Cancer: No Psychosocial: Yes Anxiety, Bipolar, Depression Integumentary: No Blood Disorders: No Adverse Reaction/Blood Tranf: No (KING IRIZARRY MD) Family Medical History Cardiovascular disease G8 SISTER Diabetes mellitus G8 SISTER Physical Exam Vital Signs Vital Signs - First Documented 07/15/22 11:23 Temp 36.6 Pulse 109 Resp 20 B/P (MAP) 111/70 (84) Pulse Ox 98 O2 Delivery Room Air (NIKITA RAI MD) Vital Signs Capillary Refill : Less Than 3 Seconds (KING IRIZARRY MD) Height/Weight/BMI Height: 5'8.00" Weight: 255lbs. oz. 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 II-XII nml as tested, no motor/sensory deficits, alert Skin: normal color, warm/dry (KING IRIZARRY MD) Procedures/Interventions Suture Size: 5-0 (KING IRIZARRY MD) Progress/Results/Core Measures Results/Orders Lab Results Laboratory Tests Test 07/15/22 11:36 07/15/22 11:37 9/3/22 13:01 07/15/22 14:59 Range/Units White Blood Count 10.7 4.3-11.0 10^3/uL Red Blood Count 5.10 4.30-5.52 10^6/uL Hemoglobin 12.8 L 13.3-17.7 g/dL Hematocrit 40 40-54 % Mean Corpuscular Volume 78 L 80-99 fL Mean Corpuscular Hemoglobin 25 25-34 pg Mean Corpuscular Hemoglobin Concent 32 32-36 g/dL Red Cell Distribution Width 19.9 H 10.0-14.5 % Platelet Count 165 130-400 10^3/uL Mean Platelet Volume 9.8 9.0-12.2 fL Immature Granulocyte % (Auto) 1 % Neutrophils (%) (Auto) 86 H 42-75 % Lymphocytes (%) (Auto) 5 L 12-44 % Monocytes (%) (Auto) 8 0-12 % Eosinophils (%) (Auto) 0 0-10 % Basophils (%) (Auto) 0 0-10 % Neutrophils # (Auto) 9.2 H 1.8-7.8 10^3/uL Lymphocytes # (Auto) 0.5 L 1.0-4.0 10^3/uL Monocytes # (Auto) 0.9 0.0-1.0 10^3/uL Eosinophils # (Auto) 0.0 0.0-0.3 10^3/uL Basophils # (Auto) 0.0 0.0-0.1 10^3/uL Immature Granulocyte # (Auto) 0.1 0.0-0.1 10^3/uL Neutrophils % (Manual) 90 % Lymphocytes % (Manual) 4 % Monocytes % (Manual) 6 % Eosinophils % (Manual) 0 % Basophils % (Manual) 0 % Percent Immature Platelet Fraction 4.5 0.0-7.6 % Anisocytosis MODERATE Sodium Level 139 135-145 MMOL/L Potassium Level 3.0 L 3.6-5.0 MMOL/L Chloride Level 91 L 98-107 MMOL/L Carbon Dioxide Level 14 L 21-32 MMOL/L Anion Gap 34 H 5-14 MMOL/L Blood Urea Nitrogen 15 7-18 MG/DL Creatinine 0.86 0.60-1.30 MG/DL Estimat Glomerular Filtration Rate 100 BUN/Creatinine Ratio 17 Glucose Level 179 H 70-105 MG/DL Calcium Level 9.8 8.5-10.1 MG/DL Corrected Calcium 10.0 8.5-10.1 MG/DL Magnesium Level 1.6 1.6-2.4 MG/DL Total Bilirubin 0.6 0.1-1.0 MG/DL Aspartate Amino Transf (AST/SGOT) 39 H 5-34 U/L Alanine Aminotransferase (ALT/SGPT) 56 H 0-55 U/L Alkaline Phosphatase 73 40-136 U/L Total Protein 6.5 6.4-8.2 GM/DL Albumin 3.8 3.2-4.5 GM/DL Lipase 57 8-78 U/L Glucometer 193 H 70-110 MG/DL Influenza Type A (RT-PCR) Not Detected Not Detecte Influenza Type B (RT-PCR) Not Detected Not Detecte SARS-CoV-2 RNA (RT-PCR) Not Detected Not Detecte Urine Color YELLOW Urine Clarity CLEAR Urine pH 6.0 5-9 Urine Specific [place] 1.025 H 1.016-1.022 Urine Protein TRACE H NEGATIVE Urine Glucose (UA) 2+ H NEGATIVE Urine Ketones TRACE H NEGATIVE Urine Nitrite NEGATIVE NEGATIVE Urine Bilirubin NEGATIVE NEGATIVE Urine Urobilinogen 1.0 < = 1.0 MG/DL Urine Leukocyte Esterase 1+ H NEGATIVE Urine RBC (Auto) NEGATIVE NEGATIVE Urine RBC NONE /HPF Urine WBC 5-10 H /HPF Urine Squamous Epithelial Cells 0-2 /HPF Urine Crystals NONE /LPF Urine Bacteria NEGATIVE /HPF Urine Casts NONE /LPF Urine Mucus NEGATIVE /LPF Urine Culture Indicated YES (NIKITA RAI MD) Medications Given in ED Current Medications Medications Dose Ordered Sig/Niyah Route Start Time Stop Time Status Last Admin Dose Admin Lactated Ringer's 1,000 ml @ 0 mls/hr Q0M ONCE IV 07/15/22 11:30 07/15/22 11:31 DC 07/15/22 12:16 1,000 MLS/HR Ondansetron HCl 4 mg ONCE ONCE IVP 07/15/22 14:15 07/15/22 14:16 DC 07/15/22 14:28 4 MG Ondansetron HCl 4 mg STK-MED ONCE .ROUTE 07/15/22 11:37 07/15/22 11:39 DC 07/15/22 11:45 4 MG Potassium Chloride 40 meq ONCE ONCE PO 07/15/22 14:15 07/15/22 14:16 DC 07/15/22 14:42 40 MEQ Potassium Chloride 50 ml @ 50 mls/hr ONCE ONCE IV 07/15/22 12:45 07/15/22 13:44 DC 07/15/22 13:11 50 MLS/HR (NIKITA RAI MD) Vital Signs/I&O 07/15/22 11:23 Temp 36.6 Pulse 109 Resp 20 B/P (MAP) 111/70 (84) Pulse Ox 98 O2 Delivery Room Air (NIKITA RAI MD) Blood Pressure Mean: 84 FSBG Bedside Testing Finger Stick Blood Glucose: 193 Blood Glucose Action Taken: NOTFIED DR. GENAO (KING IRIZARRY MD) Progress Progress Note #1: Time: 12:39 Progress Note Patient was seen, interviewed and examined. Nausea resolved with Zofran. He is anxious to drink as his mucous membranes are extremely dry. We will allow him ice chips initially. Potassium will be replaced by IV route initially. He is receiving a liter of LR at this time which will be followed by a liter of normal saline along with potassium chloride 10 mEq. Patient notes a significant wor sening in his condition over the past 2 or 3 days. He has a relative lymphopenia on his blood work. For these reasons we will also screen for COVID- 19. Progress Note #2: Time: 15:08 Progress Note COVID-19 swab was negative. Patient was tolerating oral fluids and potassium 40 mEq orally was administered after a second dose of Zofran. Patient was unable to urinate for a long time but eventually did produce a urine specimen. I suspect his symptoms are largely due to Ozempic and will hopefully improve as the effect wears off. Nursing staff noted a decubitus ulcer around the coccyx. A Mepilex pad was placed over the area. (KING IRIZARRY MD) Progress Note : Time: 15:32 Progress Note patient has no nausea. comfortable with discharge. Will hold ozempic. PCP is Dr Tripp - recommended calling firs thing sunday morning for re-evaluation and blood draw to recheck potassium. Return precautions given. (NIKITA RAI MD) Departure Impression Primary Impression: Hypokalemia Additional Impressions: Nausea & vomiting Qualified Codes: R11.2 - Nausea with vomiting, unspecified Hypovolemia Decubitus ulcer of coccygeal region, stage 1 Adverse reaction to drug Qualified Codes: T50.905A - Adverse effect of unspecified drugs, medicaments and biological substances, initial encounter Disposition: 01 HOME, SELF-CARE Condition: Improved Departure-Patient Inst. Decision time for Depature: 15:28 (NIKITA RAI MD) Referrals: DEBORAH TRIPP MD (PCP/Family) Primary Care Physician Patient Instructions: Adverse Drug Reactions, Adult, Hypokalemia Add. Discharge Instructions: Consuming some food and fluids high in potassium over the next few days such as bananas, spinach, citrus fruits and juices, watermelon, potatoes, etc. Start with a clear liquid diet and gradually advance her diet with small quantities of bland food as tolerated. Use the Zofran as prescribed for nausea and vomiting. Avoid use of Ozempic as adverse reaction is likely a contributing factor to your symptoms. Follow-up with your doctor soon as possible next week. Return to the ER if you have worsening symptoms. All discharge instructions reviewed with patient and/or family. Voiced understanding. Copy Copies To 1: DEBORAH TRIPP MD, JOSHUA T MD Jul 15, 2022 12:41 NIKITA RAI MD Jul 15, 2022 15:33
[2022-07-15] MEDS ORDERED: POTASSIUM CL 10MEQ/50ML IVPB 50 ML IV ONE (12:45)
[2022-07-15] MEDS ORDERED: NS IV 1000 ML 1,000 ML IV SCH (12:45)
[2022-07-15] MEDS ORDERED: ONDANSETRON 4 MG/2 ML (SDV) Z0FRAN IVP ONE (14:15)
[2022-07-15] MEDS ORDERED: KCL 10 MEQ TAB (MICRO K) PO ONE (14:15)
[2022-07-15 15:06] LABS: BILIRUBIN,URINE NEGATIVE (NEGATIVE); CLARITY,URINE CLEAR; COLOR,URINE YELLOW; GLUCOSE, URINE (UA) 2+ (NEGATIVE); KETONES,URINE TRACE (NEGATIVE); LEUKOCYTE ESTERASE ,URINE 1+ (NEGATIVE); NITRITE,URINE NEGATIVE (NEGATIVE); PROTEIN,URINE TRACE (NEGATIVE)
[2022-07-15 15:20] LABS: BACTERIA,URINE NEGATIVE /HPF; SQUAMOUS EPITHELIAL CELL,UR 0-2 /HPF
[2022-07-15 15:45] VITALS: BP 115/90
== END 2022-07-15 15:45 | disposition home or self-care (01) ==
LOC: EDUNIT# 10:58 → ER 11:03
DX: R11.2 Nausea with vomiting, unspecified (principal); T38.3X5A Adverse effect of insulin and oral hypoglycemic [antidiabetic] drugs, initial encounter; L89.151 Pressure ulcer of sacral region, stage 1; E87.6 Hypokalemia; E86.1 Hypovolemia; Z20.822 Contact with and (suspected) exposure to COVID-19
CPT/HCPCS: 36415; 80053; 81000; 82947; 83690; 83735; 85007; 85027; 87077; 87088; 87636

== ENCOUNTER 2022-07-25 11:25 | Inpatient (IN) | payer MEDICARE, MEDICAID ==
[~2022-07-25] VITALS: Ht 177.8 cm; Wt 101.6 kg
--- NOTE | 2022-07-25 11:46 | ED General ---
General Stated Complaint: ABN LAB RESULTS Source of Information: Patient Exam Limitations: No Limitations History of Present Illness Date Seen by Provider: Jul 25, 2022 Time Seen by Provider: 11:36 Initial Comments The patient presents to the ER from [facility] with his provider and spouse and chief complaint of weakness, nausea and vomiting the last several days. He has been having nausea and vomiting for the past couple months since starting Ozempic according to his . They stopped the medication 2 weeks ago. He has a history of heart failure, COPD, atrial fibrillation status post ablation by Dr. Allen at [facility] and and diabetes. He woke up this morning with increased swelling in his legs and weakness. He was in the clinic last week with complaints of weakness and dehydration and they gave him some fluids by IV. He went to the ER 10 days ago. He is not having any pain anywhere. He does deal with chronic constipation and is on buprenorphine. His provider remarks that she did a cleanout with him over the last week with laxatives and this did not improve his symptoms. At the ER he remarked he had a abscess on his right upper gums that had drained some purulence. He had a follow-up with a dentist scheduled. His primary care provider is Dr. Tripp and survey technician is Dr. Franklin. He is taking Zofran and states it last for about 4 hours but still has nausea. PCP noted that his labs demonstrated a TSH that was low. At baseline the patient is wheelchair-bound and transfers with some help. This morning he said he had to have a lot of help to get dressed and transition to his wheelchair. Patient went to the dentist last week and was told that they thought it was healing and if it persisted for more than another week or 2 then to come back and they would biopsy it. Cardiac catheterization by Dr. Franklin February, 5 months ago demonstrating p atent stents in the LAD, left circumflex and right coronary artery with mild to moderate nonobstructive disease. Normal left ventricular end-diastolic pressure. Echocardiogram from 18 months ago demonstrated an EF of 55 to 65% with grade 1 diastolic dysfunction. Ischemic cardiomyopathy and chronic compensated left ventricular systolic dysfunction. Allergies and Home Medications Allergies Coded Allergies: No Known Drug Allergies (Unverified , 04/23/19) Patient Home Medication List Home Medication List Reviewed: Yes Aspirin (Aspirin EC) 81 Mg Tablet., 81 MG PO DAILY, (Reported) Entered as Reported by: AVINASH ALEMAN on 03/21/21 1223 Atorvastatin Calcium (Atorvastatin Calcium) 40 Mg Tablet, 40 MG PO HS, (Reported) Entered as Reported by: GUILLERMO GILES on 08/18/19 0957 Buprenorphine HCl (Buprenorphine HCl) 2 Mg Tab.subl, 1 MG SL BID, (Reported) Entered as Reported by: MENDOZA PEACE on 03/01/22 0835 Cariprazine Hydrochloride (Vraylar) 1.5 Mg Capsule, 1.5 MG PO DAILY, (Reported) Entered as Reported by: GUILLERMO GILES on 08/18/19 0957 Cetirizine HCl (Zyrtec) 10 Mg Tablet, 10 MG PO DAILY, (Reported) Entered as Reported by: MENDOZA PEACE on 03/01/22 0835 Clopidogrel Bisulfate (Clopidogrel) 75 Mg Tablet, 75 MG PO DAILY, (Reported) Entered as Reported by: AVINASH ALEMAN on 03/21/21 1223 Dapagliflozin Propanediol (Farxiga) 10 Mg Tablet, 10 MG PO DAILY, (Reported) Entered as Reported by: GUILLERMO GILES on 08/18/19 1003 Divalproex Sodium (Depakote) 500 Mg Tablet.dr, 500 MG PO BID, (Reported) Entered as Reported by: GUILLERMO GILES on 08/18/19 1002 Fluticasone/Salmeterol (Advair 250-50 Diskus) 250 Mcg-50 Mcg/Dose Blst.w.dev, 1 PUFF IH DAILY, (Reported) Entered as Reported by: MENDOZA PEACE on 03/01/22 0835 Hydrochlorothiazide (Hydrochlorothiazide) 12.5 Mg Tablet, 12.5 MG PO DAILY, (Reported) Entered as Reported by: MENDOZA PEACE on 03/01/22 0835 Insulin Detemir (Levemir Flextouch) 100 Unit/1 Ml Insuln.pen, 10 UNITS SQ BID, (Reported) Entered as Reported by: DEBORAH MEJIAS on 08/24/21 0934 Ipratropium/Albuterol Sulfate (Iprat-Albut 0.5-3(2.5) mg/3 ml) 0.5 Mg-3 Mg (2.5 Mg Base)/3 Ml Ampul.neb, 3 ML IH TID PRN for SHORTNESS OF BREATH, (Reported) Entered as Reported by: MENDOZA PEACE on 03/01/22 0835 Metformin HCl (Metformin HCl ER) 500 Mg Tab.er.24, 500 MG PO BID Prescribed by: ALINA FRANKLIN on 03/01/22 0913 Nitroglycerin (Nitrostat) 0.4 Mg Tab.subl, 0.4 MG SL UD PRN for CHEST PAIN (ANGINA), (Reported) Entered as Reported by: DEBORAH MEJIAS on 08/24/21 0934 Pantoprazole Sodium (Pantoprazole Sodium) 40 Mg Tablet.dr, 40 MG PO DAILY, (Reported) Entered as Reported by: GUILLERMO GILES on 08/18/19 0853 Pregabalin (Lyrica) 150 Mg Capsule, 150 MG PO TID, (Reported) Entered as Reported by: MENDOZA PEACE on 03/01/22 0835 Ropinirole HCl (Ropinirole HCl) 1 Mg Tablet, 0.5 MG PO DAILY, (Reported) Entered as Reported by: MENDOZA PEACE on 03/01/22 0835 Ropinirole HCl (Ropinirole HCl) 1 Mg Tablet, 1.5 MG PO HS, (Reported) Entered as Reported by: MENDOZA PEACE on 03/01/22 0835 Semaglutide (Ozempic) 0.25 Mg/0.2 Ml Pen.injctr, 0.5 MG SQ SUNDAY, (Reported) Entered as Reported by: MENDOZA PAECE on 03/01/22 0835 Sertraline HCl (Sertraline HCl) 100 Mg Tablet, 100 MG PO DAILY, (Reported) Entered as Reported by: MENDOZA PEACE on 09/15/20 1732 Tamsulosin HCl (Flomax) 0.4 Mg Cap, 0.4 MG PO HS, (Reported) Entered as Reported by: MENDOZA PEACE on 09/15/20 1158 Review of Systems Review of Systems Constitutional: No chills, No fever EENTM: No ear discharge, No ear pain Respiratory: No cough, No dyspnea on exertion Cardiovascular: No chest pain, No palpitations Gastrointestinal: No abdominal pain, No nausea, No vomiting Genitourinary: No discharge, No dysuria Musculoskeletal: No back pain, No joint pain Skin: No dryness, No lesions Psychiatric/Neurological: Denies Anxiety, Denies Depressed All Other Systems Reviewed Negative Unless Noted: Yes Past Iodqtrt-Fkmtgv-Sawiui Hx Patient Social History Tobacco Use?: No Smoking Status: Former Smoker Use of E-Cig and/or Vaping dev: No Substance use?: No Immunizations Up To Date Tetanus Booster (TDap): Less than 5yrs Seasonal Allergies Seasonal Allergies: No Past Medical History Surgery/Hospitalization HX: DM, COPD, CHF, BIPOLAR Surgeries: Yes (RIGHT ROTATOR CUFF) Coronary Stent Respiratory: Yes COPD Currently Using CPAP: Yes Currently Using BIPAP: Yes Cardiac: Yes Atrial Fibrillation, Coronary Artery Disease, High Cholesterol, Hypertension Neurological: Yes Neuropathy, Paralysis Genitourinary: Yes Benign Prostatic Hyperpl, Prostate Problems, Neurogenic Bladder Gastrointestinal: No Chronic Constipation Musculoskeletal: Yes (neck/back injury 1999 recent anterior neck surgery on 12/11/19) Degenerate Disk Disease, Chronic Back Pain Endocrine: Yes Diabetes, Non-Insulin dep HEENT: No Cancer: No Psychosocial: Yes Anxiety, Bipolar, Depression Integumentary: No Blood Disorders: No Adverse Reaction/Blood Tranf: No Family Medical History Cardiovascular disease G8 SISTER Diabetes mellitus G8 SISTER Physical Exam Vital Signs Vital Signs - First Documented 07/25/22 11:30 Temp 36.6 Pulse 104 Resp 16 B/P (MAP) 128/89 (102) Pulse Ox 94 O2 Delivery Room Air Capillary Refill : Height, Weight, BMI Height: 5'8.00" Weight: 255lbs. oz. 115.901682fo; 31.00 BMI Method:Stated General Appearance: Chronically ill, Mild Distress, Obese Eyes: Bilateral Eye Normal Inspection, Bilateral Eye PERRL, Bilateral Eye EOMI HEENT: PERRL/EOMI, Pharynx Normal (Small grayish ulcerated lesion on the right upper gums healing without purulence, induration or erythema), Moist Mucous Membranes Neck: Full Range of Motion, Normal Inspection Respiratory: Lungs Clear, Normal Breath Sounds, No Accessory Muscle Use, No Respiratory Distress Cardiovascular: Regular Rate, Rhythm, Normal Peripheral Pulses, Tachycardia (irreg, 100 bpm) Gastrointestinal: Normal Bowel Sounds, Non Tender, Soft, Other (Large, chronic umbilical hernia, reducible) Extremity: Normal Capillary Refill, No Calf Tenderness, Pedal Edema (2+ bipedal edema without erythema or induration) Neurologic/Psychiatric: Alert, Oriented x3, No Motor/Sensory Deficits Skin: Normal Color, Warm/Dry Focused Exam Lactate Level 07/25/22 12:30: Lactic Acid Level 14.36*H Lactic Acid Level Laboratory Tests Test 07/25/22 12:30 Lactic Acid Level 14.36 MMOL/L (0.50-2.00) *H Procedures/Interventions Suture Size: 5-0 Progress/Results/Core Measures Suspected Sepsis SIRS Temperature: Pulse: Respiratory Rate: Laboratory Tests 07/25/22 11:38: White Blood Count 14.6H Blood Pressure / Mean: 07/25/22 12:30: Lactic Acid Level 14.36*H Laboratory Tests 07/25/22 11:38: Creatinine 0.91, INR Comment 1.3, Platelet Count 96L, Total Bilirubin 0.8 Results/Orders Lab Results Laboratory Tests Test 07/25/22 11:38 07/25/22 11:50 07/25/22 12:30 Range/Units White Blood Count 14.6 H 4.3-11.0 10^3/uL Red Blood Count 4.87 4.30-5.52 10^6/uL Hemoglobin 12.7 L 13.3-17.7 g/dL Hematocrit 37 L 40-54 % Mean Corpuscular Volume 77 L 80-99 fL Mean Corpuscular Hemoglobin 26 25-34 pg Mean Corpuscular Hemoglobin Concent 34 32-36 g/dL Red Cell Distribution Width 19.7 H 10.0-14.5 % Platelet Count 96 L 130-400 10^3/uL Mean Platelet Volume 8.9 L 9.0-12.2 fL Immature Granulocyte % (Auto) 1 % Neutrophils (%) (Auto) 88 H 42-75 % Lymphocytes (%) (Auto) 4 L 12-44 % Monocytes (%) (Auto) 7 0-12 % Eosinophils (%) (Auto) 0 0-10 % Basophils (%) (Auto) 0 0-10 % Neutrophils # (Auto) 12.9 H 1.8-7.8 10^3/uL Lymphocytes # (Auto) 0.6 L 1.0-4.0 10^3/uL Monocytes # (Auto) 1.0 0.0-1.0 10^3/uL Eosinophils # (Auto) 0.0 0.0-0.3 10^3/uL Basophils # (Auto) 0.0 0.0-0.1 10^3/uL Immature Granulocyte # (Auto) 0.1 0.0-0.1 10^3/uL Neutrophils % (Manual) 85 % Lymphocytes % (Manual) 3 % Monocytes % (Manual) 5 % Band Neutrophils 7 % Platelet Estimate DECREASED Percent Immature Platelet Fraction 4.8 0.0-7.6 % Hypochromasia 1+ Anisocytosis 2+ Microcytosis 1+ Crenated Cell MODERATE Prothrombin Time 17.0 H 12.2-14.7 SEC INR Comment 1.3 0.8-1.4 Activated Partial Thromboplast Time 36 H 24-35 SEC Sodium Level 127 L 135-145 MMOL/L Potassium Level 2.7 L 3.6-5.0 MMOL/L Chloride Level 81 L 98-107 MMOL/L Carbon Dioxide Level 15 L 21-32 MMOL/L Anion Gap 31 H 5-14 MMOL/L Blood Urea Nitrogen 35 H 7-18 MG/DL Creatinine 0.91 0.60-1.30 MG/DL Estimat Glomerular Filtration Rate 98 BUN/Creatinine Ratio 38 Glucose Level 83 70-105 MG/DL Calcium Level 8.2 L 8.5-10.1 MG/DL Corrected Calcium 8.8 8.5-10.1 MG/DL Magnesium Level 1.7 1.6-2.4 MG/DL Total Bilirubin 0.8 0.1-1.0 MG/DL Aspartate Amino Transf (AST/SGOT) 36 H 5-34 U/L Alanine Aminotransferase (ALT/SGPT) 47 0-55 U/L Alkaline Phosphatase 96 40-136 U/L Troponin I < 0.30 <0.30 NG/ML C-Reactive Protein 7.49 H <0.50 MG/DL Pro-B-Type Natriuretic Peptide 2225.0 H <125.0 PG/ML Total Protein 5.3 L 6.4-8.2 GM/DL Albumin 3.3 3.2-4.5 GM/DL Lipase 36 8-78 U/L Urine Color YELLOW Urine Clarity SL CLOUDY Urine pH 5.0 5-9 Urine Specific [place] 1.010 L 1.016-1.022 Urine Protein NEGATIVE NEGATIVE Urine Glucose (UA) NEGATIVE NEGATIVE Urine Ketones NEGATIVE NEGATIVE Urine Nitrite NEGATIVE NEGATIVE Urine Bilirubin NEGATIVE NEGATIVE Urine Urobilinogen 0.2 < = 1.0 MG/DL Urine Leukocyte Esterase 1+ H NEGATIVE Urine RBC (Auto) TRACE-I H NEGATIVE Urine RBC 2-5 H /HPF Urine WBC 25-50 H /HPF Urine Squamous Epithelial Cells 0-2 /HPF Urine Crystals NONE /LPF Urine Bacteria TRACE /HPF Urine Casts NONE /LPF Urine Mucus NEGATIVE /LPF Urine Culture Indicated YES Influenza Type A (RT-PCR) Not Detected Not Detecte Influenza Type B (RT-PCR) Not Detected Not Detecte SARS-CoV-2 RNA (RT-PCR) Not Detected Not Detecte Lactic Acid Level 14.36 *H 0.50-2.00 MMOL/L My Orders Orders - CARITO SOLORZANO Continuous Ekg Monitoring (07/25/22 11:38) Ekg Tracing (07/25/22 11:38) Cbc With Automated Diff (07/25/22 11:38) Comprehensive Metabolic Panel (07/25/22 11:38) Crp Fs (07/25/22 11:38) Troponin I Fs (07/25/22 11:38) Chest 1 View Ap/Pa Only (07/25/22 11:38) Ua Culture If Indicated (07/25/22 11:38) Protime With Inr (07/25/22 11:38) Magnesium (07/25/22 11:38) Probnp Fs (07/25/22 11:38) Covid 19 Inhouse Test (07/25/22 11:49) Influenza A And B By Pcr (07/25/22 11:49) Ondansetron Injection (Zofran Injectio (07/25/22 12:00) Lipase (07/25/22 11:49) Manual Differential (07/25/22 11:38) Urine Culture (07/25/22 11:50) Blood Culture (07/25/22 12:23) Partial Thromboplastin Time (07/25/22 12:23) Ed Iv/Invasive Line Start (07/25/22 12:23) Ed Iv/Invasive Line Start (07/25/22 12:23) Vital Signs Adult Sepsis Patie Q15M (07/25/22 12:23) O2 (07/25/22 12:23) Remove Rings In Anticipation O (07/25/22 12:23) Lactic Acid Analyzer (07/25/22 12:23) Ceftriaxone 1 Gm Pre-Mix (Rocephin 1 Gm (07/25/22 12:30) Ed Iv/Invasive Line Start (07/25/22 12:27) Ns Iv 1000 Ml (Sodium Chloride 0.9%) (07/25/22 12:30) Ed Iv/Invasive Line Start (07/25/22 12:33) Potassium Cl 10meq/50ml Ivpb (Kcl 10 Meq (07/25/22 12:45) Ed Iv/Invasive Line Start (07/25/22 13:23) Ns Iv 1000 Ml (Sodium Chloride 0.9%) (07/25/22 13:30) Ed Admission (Communication) (07/25/22 13:35) Medications Given in ED Current Medications Medications Dose Ordered Sig/Niyah Route Start Time Stop Time Status Last Admin Dose Admin Ceftriaxone Sodium/Dextrose 50 ml @ 100 mls/hr ONCE ONCE IV 07/25/22 12:30 07/25/22 12:59 DC 07/25/22 12:46 100 MLS/HR Ondansetron HCl 8 mg ONCE ONCE IVP 07/25/22 12:00 07/25/22 12:01 DC 07/25/22 11:58 8 MG Potassium Chloride 50 ml @ 50 mls/hr ONCE ONCE IV 07/25/22 12:45 07/25/22 13:44 07/25/22 13:18 50 MLS/HR Sodium Chloride 1,000 ml @ 0 mls/hr Q0M ONCE IV 07/25/22 12:30 07/25/22 12:31 DC 07/25/22 12:46 1,000 MLS/HR Vital Signs/I&O 07/25/22 11:30 Temp 36.6 Pulse 104 Resp 16 B/P (MAP) 128/89 (102) Pulse Ox 94 O2 Delivery Room Air Capillary Refill : Progress Note #1: Time: 11:52 Progress Note Give him 8 mg Zofran, check some labs including a BNP and do a chest x-ray. We will check electrolytes. His EKG revealed sinus rhythm with some PVCs and PACs. He is not having any pain just weakness. His Ozempic could still be the culprit versus a viral infection which is less likely given the length of time this is been going on. Exacerbation of heart failure after the IV fluids could also contribute to weakness. He would certainly benefit from compression stockings at this time. The patient has moist oromucosa and aside from the PVCs his heart rate is closer to 90. He otherwise has aseptic vital signs. He is asking for something to drink so we will let him start with some ice chips and water and work our way up from there. Progress Note #2: Time: 12:36 Progress Note With his elevated white count, tachycardia and suspicion of UTI seen on urinalysis we did increase his work-up to include a septic work-up. Empirically we will give him Rocephin and 1500 mL of fluids which would be 20 mL/kg based on his ideal body weight of 72 kg. He has an elevated BNP giving us concerned that we could push him into fluid overload and pulmonary edema although this is not demonstrated initially on his x-ray. Urine culture from 10 days ago grew out strep agalactiae 70,000 CFU's and was considered contaminant. If it is strep then it should be easily treatable with third-generation cephalosporins. ECG Initial ECG Impression Date: Jul 25, 2022 Initial ECG Impression Time: 11:48 Initial ECG Rate: 108 Initial ECG Rhythm: S.Tach Initial ECG Intervals: Normal Initial ECG Impression: Normal Initial ECG Comparisson: Unchanged Comment Normal sinus rhythm, PVC and PACs noted. No clinically relevant ST changes. Diagnostic Imaging Diagonstic Imaging: Xray Plain Films/CT/US/NM/MRI: chest Comments No acute cardiopulmonary processes on 1 view chest x-ray. [facility] [place], [place] NAME: LLUVIA SCHAEFER [facility] REC#: [id number] PT STATUS: REG ER : 1965 PHYSICIAN: CARITO SOLORZANO MD ADMIT DATE: 07/25/22/ER FS Signed Date of Exam:07/25/22 CHEST 1 VIEW AP/PA ONLY CHEST 1 VIEW AP/PA ONLY Indication: Weakness, lower extremity edema Comparison: 03/01/2022 Findings: No focal airspace disease in the visualized lungs. Please note that the posterior lower lobes are poorly evaluated by portable radiography. No pleural effusion or pneumothorax. Normal cardiomediastinal silhouette. Impression: 1. No acute cardiopulmonary process by portable radiography. Dictated by: Dictated on workstation # [id number] Dict: 07/25/22 1222 Trans: 07/25/22 1222 [facility] [id number] Interpreted by: TRENTON ZAMARRIPA MD Electronically signed by: TRENTON ZAMARRIPA MD 07/25/22 1222 Reviewed: Reviewed by Me Departure Communication (Admissions) Time/Spoke to Admitting Phy: 13:15 Discussed the case with Dr. Rogers who agrees to accept the patient to cardiac stepdown for septic shock. She agrees with cefepime. She will put in queued orders. Impression Primary Impression: Urinary tract infection Qualified Codes: N30.01 - Acute cystitis with hematuria Additional Impressions: Septic shock Hyponatremia Hypokalemia due to excessive gastrointestinal loss of potassium Disposition: 30 STILL A PATIENT Condition: Stable Admissions Decision to Admit Reason: Admit from ER (General) Decision to Admit/Date: Jul 25, 2022 Time/Decision to Admit Time: 13:08 Departure-Patient Inst. Referrals: DEBORAH TRIPP MD (PCP) Primary Care Physician CARITO SOLORZANO Jul 25, 2022 11:46
[2022-07-25 11:53] LABS: BASOPHILS % (AUTO) 0 % (0-10); EOSINOPHILS % (AUTO) 0 % (0-10); HEMATOCRIT 37 % (40-54); HEMOGLOBIN 12.7 g/dL (13.3-17.7); LYMPHOCYTES # (AUTO) 0.6 10^3/uL (1.0-4.0); LYMPHOCYTES % (AUTO) 4 % (12-44); MEAN CORPUSCULAR HEMOGLOBIN 26 pg (25-34); MEAN CORPUSCULAR HGB CONC 34 g/dL (32-36); MEAN CORPUSCULAR VOLUME 77 fL (80-99); MEAN PLATELET VOLUME 8.9 fL (9.0-12.2); MONOCYTES % (AUTO) 7 % (0-12); NEUTROPHILS # (AUTO) 12.9 10^3/uL (1.8-7.8); NEUTROPHILS % (AUTO) 88 % (42-75); PLATELET COUNT 96 10^3/uL (130-400); WHITE BLOOD COUNT 14.6 10^3/uL (4.3-11.0)
[2022-07-25 11:57] LABS: BILIRUBIN,URINE NEGATIVE (NEGATIVE); CLARITY,URINE SL CLOUDY; COLOR,URINE YELLOW; GLUCOSE, URINE (UA) NEGATIVE (NEGATIVE); KETONES,URINE NEGATIVE (NEGATIVE); LEUKOCYTE ESTERASE ,URINE 1+ (NEGATIVE); NITRITE,URINE NEGATIVE (NEGATIVE); PROTEIN,URINE NEGATIVE (NEGATIVE)
[2022-07-25] MEDS ORDERED: ONDANSETRON 4 MG/2 ML (SDV) Z0FRAN IVP ONE (12:00)
[2022-07-25 12:09] LABS: BACTERIA,URINE TRACE /HPF; SQUAMOUS EPITHELIAL CELL,UR 0-2 /HPF; WBC,URINE 25-50 /HPF
[2022-07-25 12:11] LABS: INR 1.3 (0.8-1.4)
--- NOTE | 2022-07-25 12:24 | Diagnostic Imaging Report ---
CHEST 1 VIEW AP/PA ONLY Indication: Weakness, lower extremity edema Comparison: 03/01/2022 Findings: No focal airspace disease in the visualized lungs. Please note that the posterior lower lobes are poorly evaluated by portable radiography. No pleural effusion or pneumothorax. Normal cardiomediastinal silhouette. Impression: 1. No acute cardiopulmonary process by portable radiography. Dictated by: Dictated on workstation # [id number]
[2022-07-25 12:25] LABS: BUN/CREATININE RATIO 38; CALCIUM 8.2 MG/DL (8.5-10.1); CREATININE SERUM 0.91 MG/DL (0.60-1.30); GFR ESTIMATED 98; GLUCOSE 83 MG/DL (70-105); MAGNESIUM 1.7 MG/DL (1.6-2.4)
[2022-07-25 12:26] LABS: ALANINE AMINOTRANSFERASE 47 U/L (0-55); ALBUMIN 3.3 GM/DL (3.2-4.5); ALKALINE PHOSPHATASE 96 U/L (40-136); BILIRUBIN,TOTAL 0.8 MG/DL (0.1-1.0); CARBON DIOXIDE 15 MMOL/L (21-32); CHLORIDE 81 MMOL/L (98-107); POTASSIUM 2.7 MMOL/L (3.6-5.0); SODIUM 127 MMOL/L (135-145); TOTAL PROTEIN 5.3 GM/DL (6.4-8.2)
[2022-07-25 12:29] LABS: ANISOCYTOSIS 2+; BAND NEUTROPHILS 7 %; HYPOCHROMASIA 1+; LYMPHOCYTES % (MANUAL) 3 %; MICROCYTOSIS 1+; MONOCYTES % (MANUAL) 5 %; NEUTROPHILS % (MANUAL) 85 %; PLATELET ESTIMATE DECREASED
[2022-07-25 12:30] LABS: CRENATED RBC MODERATE
[2022-07-25] MEDS ORDERED: NS IV 1000 ML 1,000 ML IV ONE ×2 (12:30→15:00)
[2022-07-25] MEDS ORDERED: NS IV 1000 ML 1,000 ML IV SCH ×2 (12:30→13:30)
[2022-07-25] MEDS ORDERED: cefTRIAXone 1 GM PRE-MIX 50 ML IV ONE (12:30)
[2022-07-25] MEDS ORDERED: NS IV 500 ML 500 ML IV ONE (12:45)
[2022-07-25] MEDS ORDERED: POTASSIUM CL 10MEQ/50ML IVPB 50 ML IV ONE (12:45)
[2022-07-25] MEDS ORDERED: ONDANSETRON 4 MG/2 ML (SDV) Z0FRAN IVP PRN (16:15)
[2022-07-25] MEDS ORDERED: ENOXAPARIN 40 MG/0.4 ML (LOVENOX) SYR SQ SCH (16:15)
[2022-07-25 16:20] VITALS: BP 110/60
[2022-07-25] MEDS ORDERED: ONDANSETRON 4 MG/2 ML (SDV) Z0FRAN IV PRN (18:00)
[2022-07-25] MEDS ORDERED: CEFEPIME INJECTION 1,000 MG in NS (IVPB) 50 ML IV SCH (18:00)
[2022-07-25] MEDS: NS IV 1000 ML 1,000 ML IV SCH ×2 (18:02→20:02)
[2022-07-25 18:12] LABS: CALCIUM 7.9 MG/DL (8.5-10.1)
[2022-07-25 18:16] LABS: CREATININE SERUM 0.85 MG/DL (0.60-1.30)
[2022-07-25 18:17] LABS: POTASSIUM 2.5 MMOL/L (3.6-5.0)
[2022-07-25] MEDS: ENOXAPARIN 40 MG/0.4 ML (LOVENOX) SYR SC SCH (18:29)
[2022-07-25] MEDS: CEFEPIME 1,000 MG/NS 50 ML IVPB IV SCH ×4 (18:30→23:31)
[2022-07-25] MEDS ORDERED: D5 NS 1000 ML IV SOLUTION 1,000 ML IV SCH (18:45)
[2022-07-25 19:15] VITALS: BP 112/71
[2022-07-25] MEDS: POTASSIUM CL 10MEQ/50ML IVPB 50 ML IV SCH ×4 (19:25→22:55)
[2022-07-25 20:00] VITALS: BP 116/101
[2022-07-25 21:00] VITALS: BP 125/57
[2022-07-25 22:00] VITALS: BP 136/79
[2022-07-26] VITALS (14 sets, daily range): BP systolic 87–122; BP diastolic 56–95
[2022-07-26] MEDS: POTASSIUM CL 10MEQ/50ML IVPB 50 ML IV SCH ×10 (00:05→23:14)
[2022-07-26] MEDS: NS IV 1000 ML 1,000 ML IV SCH ×4 (02:03→18:36)
[2022-07-26 04:42] LABS: BASOPHILS % (AUTO) 0 % (0-10); EOSINOPHILS % (AUTO) 0 % (0-10)
[2022-07-26 04:44] LABS: HEMATOCRIT 35 % (40-54); HEMOGLOBIN 11.5 g/dL (13.3-17.7); LYMPHOCYTES # (AUTO) 0.7 10^3/uL (1.0-4.0); LYMPHOCYTES % (AUTO) 8 % (12-44); MEAN CORPUSCULAR HEMOGLOBIN 26 pg (25-34); MEAN CORPUSCULAR HGB CONC 33 g/dL (32-36); MEAN CORPUSCULAR VOLUME 78 fL (80-99); MEAN PLATELET VOLUME 10.2 fL (9.0-12.2); MONOCYTES # (AUTO) 0.8 10^3/uL (0.0-1.0); MONOCYTES % (AUTO) 8 % (0-12); NEUTROPHILS # (AUTO) 7.4 10^3/uL (1.8-7.8); NEUTROPHILS % (AUTO) 83 % (42-75); PLATELET COUNT 94 10^3/uL (130-400)
[2022-07-26 04:52] LABS: ALBUMIN 2.8 GM/DL (3.2-4.5); POTASSIUM 2.6 MMOL/L (3.6-5.0)
[2022-07-26 04:53] LABS: CALCIUM 7.8 MG/DL (8.5-10.1)
[2022-07-26 04:54] LABS: TOTAL PROTEIN 4.7 GM/DL (6.4-8.2)
[2022-07-26 04:56] LABS: BILIRUBIN,TOTAL 0.8 MG/DL (0.1-1.0)
[2022-07-26 04:58] LABS: CREATININE SERUM 0.8 MG/DL (0.60-1.30)
[2022-07-26] MEDS ORDERED: KCL 20 MEQ TAB (K-DUR) PO ONE ×2 (05:15→21:00)
[2022-07-26] MEDS: CEFEPIME 1,000 MG/NS 50 ML IVPB IV SCH ×4 (05:50→12:49)
--- NOTE | 2022-07-26 08:34 | History & Physical ---
MAYRA GEIGER 07/26/22 0834: HPI History of Present Illness: Porfirio is a 56 y male with a pmh of COPD, bipolar II, T2DM, afib, CHF, with hx of MS who complains of nausea and episodes of vomitting for 2 weeks since he stopped taking his Ozempic. He states he had episodes of emesis once per day until 4-5days ago, has not vomitted since he has been here in the hospital. He was told his symptoms were due to the remainder of his ozempic getting out of his system. He is also having pain in his mouth from previous dental procedures. He has two sores on the roof of his mouth where he had teeth removed, one is very painful. He usually deals with pain by taking buprenorphine he has been prescribed for his chronic back pain but he does not have any at the hospital with him and has not taken it for a total of two days. He also has a sacral decubitus ulcer that he says is painful. Source: patient Exam Limitations: no limitations Attending Physician Laila Dubose MD PCP Admitting Physician: Jaciel Rogers MD Attending Physician: Jaciel Rogers MD Consult Date of Admission Jul 25, 2022 at 16:30 Home Medications Home Medications Reviewed patient Home Medication Reconciliation performed by pharmacy medication reconciliations photonics engineering technician and/or nursing. Patients Allergies have been reviewed. Allergies Coded Allergies: No Known Drug Allergies (Unverified , 04/23/19) [id number] Hx Patient Social History Drug of Choice: MARIJUANA Smoking Status: Former Smoker (quit 6 yrs ago, former 1ppd for 20 yrs) 2nd Hand Smoke Exposure: No Recent Hopitalizations: No Alcohol Use?: No Substance type: Marijuana (Takes occasionally.) Have you traveled recently?: No Immunizations Up To Date Tetanus Booster (TDap): Less than 5yrs Influenza Vaccine Up-to-Date: Yes; Up-to-Date Past Medical History CAD Ischemic cardiomyopathy Bipolar d/o Chronic leg and foot wounds Family Medical History Significant Family History: No Pertinent Family Hx Family History: Cardiovascular disease G8 SISTER Diabetes mellitus G8 SISTER Review of Systems (CHC) Constitutional: diaphoresis (states he is normally warm) EENTM: dental problems, mouth pain, mouth swelling Respiratory: cough, phlegm Cardiovascular: no symptoms reported Gastrointestinal: diarrhea (has not had diarrhea since admission but states he had diarrhea recently), nausea Genitourinary: no symptoms reported Musculoskeletal: back pain Skin: lesions (sacral ulcer) Psychiatric/Neurological: No Symptoms Reported Reviewed Test Results Reviewed Test Results Lab hypokalemia - on current IV K+ replacement Lactic acid 14 on admission, trending down to 9.9, Anion Gap Metabolic acidosis, likely due to lactic acidosis White cout 14 on admission, trended down to 9.0 Physical Exam-([facility]) Physical Exam Vital Signs VS - Last 72 Hours, by Label 07/25/22 07/25/22 07/25/22 07/25/22 11:30 15:07 16:20 16:45 Temp 36.6 36.3 Pulse 104 100 96 Resp 16 96 14 B/P (MAP) 128/89 (102) 134/56 110/60 (77) Pulse Ox 94 97 O2 Delivery Room Air Room Air Room Air 07/25/22 07/25/22 07/25/22 07/25/22 17:15 19:00 19:15 19:56 Temp 36.7 Pulse 125 88 Resp 18 B/P (MAP) 112/71 (85) Pulse Ox 98 93 O2 Delivery Room Air Room Air 07/25/22 07/25/22 07/25/22 07/25/22 20:00 21:00 21:00 22:00 Pulse 90 89 130 Resp 23 18 27 B/P (MAP) 116/101 (106) 125/57 (79) 136/79 (98) Pulse Ox 93 98 91 94 O2 Delivery Nasal Cannula Nasal Cannula Nasal Cannula Nasal Cannula O2 Flow Rate 2.00 2.00 2.00 2.00 07/26/22 07/26/22 07/26/22 07/26/22 00:00 01:00 01:00 02:00 Pulse 94 74 68 89 Resp 16 30 17 B/P (MAP) 109/80 (91) 122/67 (78) 119/69 (93) Pulse Ox 94 O2 Delivery Nasal Cannula Nasal Cannula Nasal Cannula O2 Flow Rate 2.00 2.00 2.00 07/26/22 07/26/22 07/26/22 07/26/22 03:00 04:05 04:47 07:00 Temp 37.7 Pulse 78 92 92 Resp 16 25 12 B/P (MAP) 114/72 (91) 107/95 (96) 87/68 (74) Pulse Ox 93 95 94 O2 Delivery Nasal Cannula Nasal Cannula Nasal Cannula O2 Flow Rate 2.00 2.00 2.00 07/26/22 07/26/22 07/26/22 07/26/22 07:14 08:00 09:00 09:00 Pulse 93 88 88 Resp 19 19 B/P (MAP) 117/65 (82) 122/56 (78) Pulse Ox 96 96 97 O2 Delivery Nasal Cannula Nasal Cannula Nasal Cannula O2 Flow Rate 2.00 2.00 2.00 07/26/22 07/26/22 07/26/22 07/26/22 10:00 11:00 12:00 12:15 Pulse 88 90 87 85 Resp 23 7 17 B/P (MAP) 122/73 (89) 121/63 (82) 102/58 (73) Pulse Ox 94 94 94 O2 Delivery Nasal Cannula Nasal Cannula Nasal Cannula O2 Flow Rate 2.00 2.00 2.00 Capillary Refill : Less Than 3 Seconds General Appearance: mild distress HEENT: PERRL/EOMI, other (Right upper gingival has ulcer with white fibrinous layer covering, L upper gingiva has tooth fragments protruding from gums - painful) Neck: non-tender, supple Respiratory: no accessory muscle use, crackles (Right lower lobes, productive cough), rales Cardiovascular: normal peripheral pulses, other (tachycardic w/ hypotension, with irregular rhythm) Gastrointestinal: normal bowel sounds, non tender, soft Back: other (3-4 cm sacral decubitus ulcer, warm, erythematous without purulent drainage.) Extremities: non-tender, no pedal edema, other (weakness in hip flexion, neurovascularly intact) Neurologic/Psychiatric: 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 Sepsis likely due to UTI - Cefepime IV - Slow fluid rate due to pulmonary congestion - Continue to monitor labs, Lactate 6.5 trending down from 14 - Zofran for nausea as needed 2. Hypochloremic, hypokalemic metabolic acidosis likely due to dehydration - Lactic Acidosis contributing - IV fluids - repeat CXR - K+ repletion - repeat BMP - Cr 0.8, wnl 3. Lactic Acidosis - Likely due to septic infection - Med reconciliation, consider holding metformin 4. Elevated Liver Enzymes - Check for hx of Hep C serology, liver ultrasound. - Monitor PT/PTT. - D-dimer and fibrinogen 5. Sacral Ulcer - Consult Wound Care 6. Chronic Pain - Continue home buprinorphine 7. COPD - Continue home medications as appropriate. 8. Afib - rate and rhythm controlled, continue home medications - Systolic murmur RUSB likely aortic sclerosis, defer to cardiology 9. T2DM - Home medications. - hold metformin as it is possibly contributing to lactic acidosis 10. CHF - Continue home medications as appropriate. JACIEL ROGERS MD 07/26/22 1415: HPI History of Present Illness: Date seen by provider: Jul 26, 2022 Time Seen by Provider: 09:05 Home Medications Allergies Coded Allergies: No Known Drug Allergies (Unverified , 04/23/19) [id number] Hx Family Medical History Family History: Cardiovascular disease G8 SISTER Diabetes mellitus G8 SISTER Supervisory-Addendum Brief Verification & Attestation Participated in pt care: history, MDM, physical Personally performed: exam, history, MDM, supervision of care Care discussed with: Medical Student Procedures: n/a I personally saw and examined patient and did my own history which confirmed that documented by the medical student. I directed the plan of care as documented by the medical student. While pt meets criteria for septic shock, I believe his lactic acidosis is multifactorial as he has not had any hypotension or other end organ damage at a level expected with the markedly elevated LA, so it is unclear if septic shock is truly present. MAYRA GEIGER Jul 26, 2022 08:34 JACIEL ROGERS MD Jul 26, 2022 14:15
[2022-07-26] MEDS ORDERED: PREG150C46 PO (10:15)
[2022-07-26] MEDS ORDERED: DIVA-76 PO (10:15)
[2022-07-26] MEDS ORDERED: UMEC62.5 INH (10:15)
[2022-07-26] MEDS ORDERED: CETI10TA17 PO (10:15)
[2022-07-26] MEDS ORDERED: ALBU18HF2 INH (10:15)
[2022-07-26] MEDS ORDERED: METF-865 PO (10:15)
[2022-07-26] MEDS ORDERED: ACET-2267 PO (10:15)
[2022-07-26] MEDS ORDERED: ONDA-105 PO (10:15)
[2022-07-26] MEDS ORDERED: TIZA-186 PO (10:15)
[2022-07-26] MEDS ORDERED: ROPI0.5T4 PO (10:15)
[2022-07-26] MEDS ORDERED: FLUT16SP22 NSEACH (10:18)
[2022-07-26] MEDS ORDERED: HYPOCHLOROUS ACID/NaCl (VASHE) 250 ML IR PRN (10:30)
[2022-07-26] MEDS ORDERED: CETIRIZINE HCL (ZYRTEC) 10 MG TAB PO PRN (11:30)
[2022-07-26] MEDS ORDERED: NON-FORMULARY MEDICATION 1 EA EA (Fluticasone/Salmeterol (Advair 250-50 Diskus) 1 PUFF) IH PRN (11:30)
[2022-07-26] MEDS ORDERED: RT-ALBUTEROL SULF 2.5 MG/3 ML PRE-MIX VIAL INH PRN (11:30)
[2022-07-26] MEDS ORDERED: LORATADINE (CLARITIN) 10 MG TAB PO PRN (11:45)
[2022-07-26] MEDS ORDERED: PATIENT MAY USE OWN MED,SINGLE MED PO SCH (11:45)
[2022-07-26] MEDS ORDERED: RT--FLUTICASONE/SALMETEROL 113-14 (AIRDUO RespiCLICK) IH PRN (11:45)
[2022-07-26 11:53] LABS: ABSOLUTE RETIC # 28 10e9/uL (24-90); BASOPHILS % (AUTO) 0 % (0-10); EOSINOPHILS % (AUTO) 0 % (0-10); HEMATOCRIT 33 % (40-54); HEMOGLOBIN 11.1 g/dL (13.3-17.7); LYMPHOCYTES # (AUTO) 0.4 10^3/uL (1.0-4.0); LYMPHOCYTES % (AUTO) 5 % (12-44); MEAN CORPUSCULAR HEMOGLOBIN 26 pg (25-34); MEAN CORPUSCULAR HGB CONC 34 g/dL (32-36); MEAN CORPUSCULAR VOLUME 78 fL (80-99); MEAN PLATELET VOLUME 9.3 fL (9.0-12.2); MONOCYTES # (AUTO) 0.5 10^3/uL (0.0-1.0); MONOCYTES % (AUTO) 6 % (0-12); NEUTROPHILS # (AUTO) 6.1 10^3/uL (1.8-7.8); NEUTROPHILS % (AUTO) 87 % (42-75); PLATELET COUNT 82 10^3/uL (130-400); RETICULOCYTE % 0.67 % (0.50-2.40); WHITE BLOOD COUNT 7.1 10^3/uL (4.3-11.0)
[2022-07-26 12:04] LABS: POTASSIUM 3.2 MMOL/L (3.6-5.0)
[2022-07-26 12:05] LABS: CALCIUM 7.5 MG/DL (8.5-10.1)
[2022-07-26 12:09] LABS: CREATININE SERUM 0.66 MG/DL (0.60-1.30)
[2022-07-26 12:10] LABS: FIBRIN DEGRADATION PRODUCTS 0.38 UG/ML (0.00-0.49)
[2022-07-26 12:40] LABS: LYMPHOCYTES % (MANUAL) 9 %; MONOCYTES % (MANUAL) 4 %; NEUTROPHILS % (MANUAL) 87 %
[2022-07-26 12:41] LABS: ELLIPT/OVALOCYTES SLIGHT; PLATELET CLUMPS FEW SMALL CLUMPS OBS
[2022-07-26 12:43] LABS: BURR CELLS MARKED
[2022-07-26 12:44] LABS: HYPOCHROMASIA SLIGHT; MICROCYTOSIS MODERATE
[2022-07-26] MEDS: PREGABALIN 150 MG (LYRICA) CAPSULE PO SCH ×2 (12:49→20:35)
[2022-07-26] MEDS ORDERED: BUPRENORPHINE HCL 2 MG SL SCH (13:00)
--- NOTE | 2022-07-26 13:16 | Wound Care Assessment ---
Wound Care Assessment Date Seen by Provider: Jul 26, 2022 Time Seen by Provider: 13:00 Chief Complaint Pressure ulcer of buttock/coccyx PRIYA Monroy is a 56yo M with a past medical history of COPD, CHF(EF 28%), CAD, diabetes mellitus, rheumatoid arthritis, and atrial fibrillation. He presented to the emergency room last night with weakness, nausea, and vomiting that he reports has been ongoing for two weeks. He was diagnosed with a UTI in the emergency room and had symptoms of sepsis. He was admitted to the cardiac step down unit and has been receiving broad spectrum IV antibiotics. He was sitting up in bed eating lunch at the start of the interview. He says that his bottom is sore especially whenever the bandage on it is changed. He believes it is sore because for the past week he has been having diarrhea and it has made it difficult to keep that area dry. The sacral wound is a grade 3 pressure ulcer with a primary etiology of being bedridden and secondary etiology of recurrent diarrhea. Past Medical History: Admits Diabetes Type II, Admits Heart Disease RA, COPD, Atrial fibrillation Smoking Status: Former Smoker (quit 6 yrs ago, former 1ppd for 20 yrs) Recreational Drug Use: Yes (Squirrly) Alcohol Use: Occasionally Uses Other Social Hx Lives with Review of Systems General: No Chills, No Night Sweats; Fatigue, Appetite HEENT: No Head Aches, No Visual Changes, No Sinus Congestion, No Sore Throat Pulmonary: No Dyspnea, No Cough Cardiovascular: No: Chest Pain, Palpitations Gastrointestinal: Nausea, Vomiting, Diarrhea; No: Abdominal Pain, Constipation Genitourinary: No Dysuria, No Incontinence Musculoskeletal: other (Buttock pain) Neurological: Weakness (Generalized); No: Numbness Exam Vital Signs Date Time Temp Pulse Resp B/P (MAP) Pulse Ox O2 Delivery O2 Flow Rate FiO2 07/26/22 12:15 85 07/26/22 12:00 17 102/58 (73) 94 Nasal Cannula 2.00 07/26/22 04:47 37.7 Capillary Refill : Less Than 3 Seconds General Appearance: WD/WN, no apparent distress HEENT: PERRL/EOMI Neck: non-tender, full range of motion, supple Cardiovascular: regular rate, rhythm, no edema, no murmur Respiratory: lungs clear, normal breath sounds, no respiratory distress Gastrointestinal: non tender, soft Back: normal inspection Extremities: normal range of motion, non-tender, normal inspection, no pedal ed shad Neurologic/Psychiatric: no motor/sensory deficits, alert, normal mood/affect, oriented x 3 Skin: normal color, warm/dry Skin Problem Location: other (Sacral region) Skin Character: tenderness The sacral ulcer measures 2.5x3.2x0.1, this is a stage 3 pressure ulcer. There is no tunneling or undermining. Small amount of serosanguinous drainage. Flat margins, small amount of granulation, no epithelialization, and medium amount of slough. Results Laboratory Tests 07/25/22 14:25: Lactic Acid Level 12.63*H 07/25/22 17:45: Lactic Acid Level 10.71*H, Sodium Level 133L, Potassium Level 2.5*L, Chloride Level 93L, Carbon Dioxide Level 16L, Anion Gap 24H, Blood Urea Nitrogen 30H, Creatinine 0.85, Estimat Glomerular Filtration Rate 101, BUN/Creatinine Ratio 35, Glucose Level 45*L, Calcium Level 7.9L 07/25/22 18:25: Glucometer 49*L 07/25/22 18:37: Glucometer 54*L 07/25/22 19:08: Glucometer 63L 07/25/22 19:29: Glucometer 71 07/25/22 20:34: Lactic Acid Level 12.08*H 07/25/22 21:21: Glucometer 121H 07/25/22 22:42: Lactic Acid Level 11.14*H 07/26/22 00:42: Glucometer 118H 07/26/22 04:05: Lactic Acid Level 9.90*H, White Blood Count 9.0, Red Blood Count 4.49, Hemoglobin 11.5L, Hematocrit 35L, Mean Corpuscular Volume 78L, Mean Corpuscular Hemoglobin 26, Mean Corpuscular Hemoglobin Concent 33, Red Cell Distribution Width 19.7H, Platelet Count 94L, Mean Platelet Volume 10.2, Immature Granulocyte % (Auto) 1, Neutrophils (%) (Auto) 83H, Lymphocytes (%) (Auto) 8L, Monocytes (%) (Auto) 8, Eosinophils (%) (Auto) 0, Basophils (%) (Auto) 0, Neutrophils # (Auto) 7.4, Lymphocytes # (Auto) 0.7L, Monocytes # (Auto) 0.8, Eosinophils # (Auto) 0.0, Basophils # (Auto) 0.0, Immature Granulocyte # (Auto) 0.1, Percent Immature Platelet Fraction 4.0, Sodium Level 137, Potassium Level 2.6L, Chloride Level 96L, Carbon Dioxide Level 18L, Anion Gap 23H, Blood Urea Nitrogen 28H, Creatinine 0.80, Estimat Glomerular Filtration Rate 103, BUN/Creatinine Ratio 35, Glucose Level 92, Calcium Level 7.8L, Corrected Calcium 8.8, Total Bilirubin 0.8, Aspartate Amino Transf (AST/SGOT) 47H, Alanine Aminotransferase (ALT/SGPT) 60H, Alkaline Phosphatase 105, Total Protein 4.7L, Albumin 2.8L 07/26/22 09:00: Lactic Acid Level 6.50*H 07/26/22 11:03: Glucometer 120H 07/26/22 11:40: White Blood Count 7.1, Red Blood Count 4.23L, Hemoglobin 11.1L, Hematocrit 33L, Mean Corpuscular Volume 78L, Mean Corpuscular Hemoglobin 26, Mean Corpuscular Hemoglobin Concent 34, Red Cell Distribution Width 19.7H, Platelet Count 82L, Mean Platelet Volume 9.3, Immature Granulocyte % (Auto) 1, Neutrophils (%) (Auto) 87H, Lymphocytes (%) (Auto) 5L, Monocytes (%) (Auto) 6, Eosinophils (%) (Auto) 0, Basophils (%) (Auto) 0, Neutrophils # (Auto) 6.1, Lymphocytes # (Auto) 0.4L, Monocytes # (Auto) 0.5, Eosinophils # (Auto) 0.0, Basophils # (Auto) 0.0, Immature Granulocyte # (Auto) 0.1, Neutrophils % (Manual) 87, Lymphocytes % (Manual) 9, Monocytes % (Manual) 4, Clumped Platelets FEW SMALL CLUMPS OBS, Percent Immature Platelet Fraction 3.2, Hypochromasia SLIGHT, Microcytosis MODERATE, Atul Cells MARKED, Elliptocytes SLIGHT, Absolute Reticulocyte Count 28, Percent Reticulocyte Count 0.67, Fibrinogen 299, D-Dimer 0.38, Sodium Level 134L, Potassium Level 3.2L, Chloride Level 99, Carbon Dioxide Level 18L, Anion Gap 17H, Blood Urea Nitrogen 24H, Creatinine 0.66, Estimat Glomerular Filtration Rate 109, BUN/Creatinine Ratio 36, Glucose Level 108H, Lactic Acid Level 5.64*H, Calcium Level 7.5L, Smear Scan Microbiology 07/25/22 Urine Culture - Preliminary, Resulted Strep, Beta Hemolytic Group B Microbiology 07/25/22 Urine Culture - Preliminary, Resulted Strep, Beta Hemolytic Group B Assessment/Plan/Dx Assessment: Stage 3 pressure sacral ulcer Sepsis UTI Metabolic acidosis DM type 2 Plan: 1) Clean the wound with vashe daily. Apply barrier ointment along with silver alginate hydrofiber and a bordered foam dressing. 2) The primary team has already prescribed protein supplementation which will assist with the wound healing process 3) IV cefepime was started to treat the UTI which is the most likely cause of the sepsis 4) The metabolic acidosis is most likely caused by elevated lactic acid from the sepsis, the anion gap is trending down from 14 and was 5 today. Continued treatment with antibiotics should improve this. 5) Tight control of the patient's blood sugars will benefit the wound healing process and is being managed by the primary team Supervisory-Addendum Brief Verification & Attestation Participated in pt care: history, MDM, physical Personally performed: exam, history, MDM, supervision of care Care discussed with: Medical Student Procedures: n/a Results interpretation: Verified all documentation MD SALAS Ellis LEAH Jul 26, 2022 13:16 VISHNU PIERRE MD Jul 26, 2022 15:46
[2022-07-26] MEDS ORDERED: KCL 20 MEQ TAB (K-DUR) PO NR (13:30)
--- NOTE | 2022-07-26 14:17 | Consultation-Cardiology ---
HPI-Cardiology Cardiology Consultation Date of Consultation 07/26/22 Date of Admission Time Seen by Provider: 14:11 Indication: Atrial fibrillation HPI 56 years old gentleman with history of diabetes mellitus, atrial fibrillation, congestive heart failure. Known to have paroxysmal atrial fibrillation and had ablation. Has been off anticoagulation. Patient has been having nausea and vomiting for the past 2 weeks. He was on Ozempic and he reported that he was having nausea vomiting since start of the me dication and tried Zofran in addition to the medication without success. The medication was discontinued but he continued to have nausea and vomiting and diarrhea. Patient came in to the emergency room with generalized fatigue, loss of energy. He was noted to have lactic acidosis. Electrolyte imbalance. He was in sinus rhythm with few breakthrough atrial fibrillation on and off. He has been having frequent atrial premature contractions. Home Medications & Allergies Allergies: Coded Allergies: No Known Drug Allergies (Unverified , 04/23/19) Home Medication List Reviewed: Yes [id number] Hx Patient Social History Marital Status: Employed/Student: employed Recreational Drug Use: Yes ([place]) Drug of Choice: MARIJUANA Smoking Status: Former Smoker (quit 6 yrs ago, former 1ppd for 20 yrs) Type Used: Pipe 2nd Hand Smoke Exposure: No Recent Hopitalizations: No Have you traveled recently?: No Alcohol Use?: No Substance type: Marijuana (Takes occasionally.) Immunizations Up To Date Tetanus Booster (TDap): Less than 5yrs Date of Pneumonia Vaccine: Aug 17, 2015 Date of Influenza Vaccine: Aug 18, 2020 Past Medical History Discussed below Family Medical History Significant Family History: No Pertinent Family Hx Family History: Cardiovascular disease G8 SISTER Diabetes mellitus G8 SISTER Review of Systems-General Review of Systems Constitutional: chills, diaphoresis (states he is normally warm), malaise, weakness EENTM: see HPI, dental problems, mouth pain, mouth swelling Respiratory: see HPI, cough, phlegm Cardiovascular: see HPI; No chest pain, No edema, No Hx of Intervention, No palpitations, No syncope, No vascular heart diseas, No other Gastrointestinal: see HPI, diarrhea (has not had diarrhea since admission but states he had diarrhea recently), nausea, vomiting Genitourinary: no symptoms reported, see HPI Musculoskeletal: see HPI, back pain Skin: see HPI, lesions (sacral ulcer) Psychiatric/Neurological: No Symptoms Reported All Other Systems Reviewed Negative Unless Noted: Yes Reviewed Test Results Reviewed Test Results Lab Laboratory Tests Test 07/25/22 14:25 07/25/22 17:45 07/25/22 18:25 07/25/22 18:37 Range/Units Lactic Acid Level 12.63 *H 10.71 *H 0.50-2.00 MMOL/L Sodium Level 133 L 135-145 MMOL/L Potassium Level 2.5 *L 3.6-5.0 MMOL/L Chloride Level 93 L 98-107 MMOL/L Carbon Dioxide Level 16 L 21-32 MMOL/L Anion Gap 24 H 5-14 MMOL/L Blood Urea Nitrogen 30 H 7-18 MG/DL Creatinine 0.85 0.60-1.30 MG/DL Estimat Glomerular Filtration Rate 101 BUN/Creatinine Ratio 35 Glucose Level 45 *L 70-105 MG/DL Calcium Level 7.9 L 8.5-10.1 MG/DL Glucometer 49 *L 54 *L 70-110 MG/DL Test 07/25/22 19:08 07/25/22 19:29 07/25/22 20:34 07/25/22 21:21 Range/Units Glucometer 63 L 71 121 H 70-110 MG/DL Lactic Acid Level 12.08 *H 0.50-2.00 MMOL/L Test 07/25/22 22:42 07/26/22 00:42 07/26/22 04:05 07/26/22 09:00 Range/Units Lactic Acid Level 11.14 *H 9.90 *H 6.50 *H 0.50-2.00 MMOL/L Glucometer 118 H 70-110 MG/DL White Blood Count 9.0 4.3-11.0 10^3/uL Red Blood Count 4.49 4.30-5.52 10^6/uL Hemoglobin 11.5 L 13.3-17.7 g/dL Hematocrit 35 L 40-54 % Mean Corpuscular Volume 78 L 80-99 fL Mean Corpuscular Hemoglobin 26 25-34 pg Mean Corpuscular Hemoglobin Concent 33 32-36 g/dL Red Cell Distribution Width 19.7 H 10.0-14.5 % Platelet Count 94 L 130-400 10^3/uL Mean Platelet Volume 10.2 9.0-12.2 fL Immature Granulocyte % (Auto) 1 % Neutrophils (%) (Auto) 83 H 42-75 % Lymphocytes (%) (Auto) 8 L 12-44 % Monocytes (%) (Auto) 8 0-12 % Eosinophils (%) (Auto) 0 0-10 % Basophils (%) (Auto) 0 0-10 % Neutrophils # (Auto) 7.4 1.8-7.8 10^3/uL Lymphocytes # (Auto) 0.7 L 1.0-4.0 10^3/uL Monocytes # (Auto) 0.8 0.0-1.0 10^3/uL Eosinophils # (Auto) 0.0 0.0-0.3 10^3/uL Basophils # (Auto) 0.0 0.0-0.1 10^3/uL Immature Granulocyte # (Auto) 0.1 0.0-0.1 10^3/uL Percent Immature Platelet Fraction 4.0 0.0-7.6 % Sodium Level 137 135-145 MMOL/L Potassium Level 2.6 L 3.6-5.0 MMOL/L Chloride Level 96 L 98-107 MMOL/L Carbon Dioxide Level 18 L 21-32 MMOL/L Anion Gap 23 H 5-14 MMOL/L Blood Urea Nitrogen 28 H 7-18 MG/DL Creatinine 0.80 0.60-1.30 MG/DL Estimat Glomerular Filtration Rate 103 BUN/Creatinine Ratio 35 Glucose Level 92 70-105 MG/DL Calcium Level 7.8 L 8.5-10.1 MG/DL Corrected Calcium 8.8 8.5-10.1 MG/DL Total Bilirubin 0.8 0.1-1.0 MG/DL Aspartate Amino Transf (AST/SGOT) 47 H 5-34 U/L Alanine Aminotransferase (ALT/SGPT) 60 H 0-55 U/L Alkaline Phosphatase 105 40-136 U/L Total Protein 4.7 L 6.4-8.2 GM/DL Albumin 2.8 L 3.2-4.5 GM/DL Test 07/26/22 11:03 07/26/22 11:40 Range/Units Glucometer 120 H 70-110 MG/DL White Blood Count 7.1 4.3-11.0 10^3/uL Red Blood Count 4.23 L 4.30-5.52 10^6/uL Hemoglobin 11.1 L 13.3-17.7 g/dL Hematocrit 33 L 40-54 % Mean Corpuscular Volume 78 L 80-99 fL Mean Corpuscular Hemoglobin 26 25-34 pg Mean Corpuscular Hemoglobin Concent 34 32-36 g/dL Red Cell Distribution Width 19.7 H 10.0-14.5 % Platelet Count 82 L 130-400 10^3/uL Mean Platelet Volume 9.3 9.0-12.2 fL Immature Granulocyte % (Auto) 1 % Neutrophils (%) (Auto) 87 H 42-75 % Lymphocytes (%) (Auto) 5 L 12-44 % Monocytes (%) (Auto) 6 0-12 % Eosinophils (%) (Auto) 0 0-10 % Basophils (%) (Auto) 0 0-10 % Neutrophils # (Auto) 6.1 1.8-7.8 10^3/uL Lymphocytes # (Auto) 0.4 L 1.0-4.0 10^3/uL Monocytes # (Auto) 0.5 0.0-1.0 10^3/uL Eosinophils # (Auto) 0.0 0.0-0.3 10^3/uL Basophils # (Auto) 0.0 0.0-0.1 10^3/uL Immature Granulocyte # (Auto) 0.1 0.0-0.1 10^3/uL Neutrophils % (Manual) 87 % Lymphocytes % (Manual) 9 % Monocytes % (Manual) 4 % Clumped Platelets FEW SMALL CLUMPS OBS Percent Immature Platelet Fraction 3.2 0.0-7.6 % Hypochromasia SLIGHT Microcytosis MODERATE [place] Cells MARKED Elliptocytes SLIGHT Absolute Reticulocyte Count 28 24-90 10e9/uL Percent Reticulocyte Count 0.67 0.50-2.40 % Fibrinogen 299 221-496 MG/DL D-Dimer 0.38 0.00-0.49 UG/ML Sodium Level 134 L 135-145 MMOL/L Potassium Level 3.2 L 3.6-5.0 MMOL/L Chloride Level 99 98-107 MMOL/L Carbon Dioxide Level 18 L 21-32 MMOL/L Anion Gap 17 H 5-14 MMOL/L Blood Urea Nitrogen 24 H 7-18 MG/DL Creatinine 0.66 0.60-1.30 MG/DL Estimat Glomerular Filtration Rate 109 BUN/Creatinine Ratio 36 Glucose Level 108 H 70-105 MG/DL Lactic Acid Level 5.64 *H 0.50-2.00 MMOL/L Calcium Level 7.5 L 8.5-10.1 MG/DL Smear Scan Physical Exam Physical Exam Vital Signs Vital Signs - First Documented 07/25/22 07/25/22 11:30 20:00 Temp 36.6 Pulse 104 Resp 16 B/P (MAP) 128/89 (102) Pulse Ox 94 O2 Delivery Room Air O2 Flow Rate 2.00 Capillary Refill : Less Than 3 Seconds Height, Weight, BMI Height: 5'8.00" Weight: 255lbs. oz. 115.485480bz; 32.42 BMI Method:Stated General Appearance: Chronically ill, Mild Distress, Obese Eyes: Bilateral Eye Normal Inspection, Bilateral Eye PERRL, Bilateral Eye EOMI HEENT: PERRL/EOMI, Pharynx Normal (Small grayish ulcerated lesion on the right upper gums healing without purulence, induration or erythema), Moist Mucous Membranes Neck: Full Range of Motion, Normal Inspection Respiratory: Lungs Clear, Normal Breath Sounds, No Accessory Muscle Use, No Respiratory Distress Cardiovascular: Regular Rate, Rhythm, Normal Peripheral Pulses, Tachycardia (irreg, 100 bpm) Gastrointestinal: Normal Bowel Sounds, Non Tender, Soft, Other (Large, chronic umbilical hernia, reducible) Back: Normal Inspection, No CVA Tenderness, No Vertebral Tenderness Extremity: Normal Capillary Refill, No Calf Tenderness, Pedal Edema (2+ bipedal edema without erythema or induration) Neurologic/Psychiatric: Alert, Oriented x3, No Motor/Sensory Deficits Skin: Normal Color, Warm/Dry Lymphatic: No Adenopathy A/P-Cardiology Admission Diagnosis Metabolic acidosis Atrial fibrillation Coronary artery disease Hypotension Assessment/Plan Metabolic acidosis, lactic acidosis. Unknown underlying cause Possible occult sepsis versus dehydration Questionable underlying gastroenteritis. Managed by primary care physician Paroxysmal atrial fibrillation/flutter, patient underwent atrial flutter ablation in May [address] Juarez. He has been off oral anticoagulation as an outpatient. It will be restarted at this point. Coronary artery disease, history of multiple cardiac catheterization multiple interventions in the past, Cardiac catheterization done in [facility] in November 2019 and reported that he did not require any stenting. Cardiac catheterization done February 16, 2021 with severe stenosis in the prox right coronary artery with successful primary stenting using Marcia 3.5 x 18mm overlapping with an old stent in the mid RCA. Patent stent in the LAD, mild coronary artery disease otherwise. Cardiac catheterization done February 2022 showing patent stents in the LAD with mild to moderate nonobstructive disease. Currently maintained on aspirin. Peripheral arterial disease, Angiogram was done on September 15, 2020 showing total occlusion of the left anterior tibial artery with successful balloon angioplasty with multiple wires and balloons with excellent results. On the right side anterior tibial artery was atretic and very small. The ulcer on his foot is healed completely. ISABELA was done on October 20, 2020 was on the right side 1.34 and left side 1.45. TBI on the right side was 0.5 and on the left side 0.61, good waveforms was noted Congestive heart failure, chronic compensated left ventricular systolic dysfunction, ischemic cardiomyopathy, I will repeat 2D echocardiogram Status post respiratory failure. Mild elevation in troponin type II myocardial infarction secondary to hypoxemia in December 2019. Currently asymptomatic Hypotension, reporting history of hypotension. Continue to monitor Hyperlipidemia, lipid profile was done in August 2021 showing total cholesterol 134, HDL 41, triglyceride 282, LDL 60. Continue to monitor Diabetes mellitus, followed and managed by primary care physician History of C-spine surgery done in November 2019. BMI 41, we discussed weight loss History of bipolar disorder. COPD/DAISY, complaining of increased dyspnea, I will refer to Dr. Escobedo. ALINA GREGG MD Jul 26, 2022 14:17
[2022-07-26] MEDS ORDERED: NS (IVPB) 50 ML ONE ×2 (15:31→15:33)
[2022-07-26] MEDS: ceFAZolin INJECTION 2,000 MG in NS (IVPB) 50 ML IV SCH ×2 (15:42→22:49)
[2022-07-26] MEDS: ENOXAPARIN 40 MG/0.4 ML (LOVENOX) SYR SC SCH (17:53)
[2022-07-26] MEDS ORDERED: MAGIC MOUTHWASH, ADULT 155 ML BOTTLE PO PRN (20:00)
[2022-07-26] MEDS: TAMSULOSIN 0.4 MG (FLOMAX) CAP PO SCH (20:35)
[2022-07-26] MEDS: DIVALPROEX 250 MG DELAYED RELEASE (DEPAKOTE) TAB PO SCH (20:35)
[2022-07-26] MEDS: BUPRENORPHINE SL SCH (20:46)
[2022-07-26] MEDS ORDERED: NON-FORMULARY MEDICATION 1 EA EA (Divalproex Sodium 500 MG) PO SCH (21:00)
[2022-07-26] MEDS: inSUlin ASPART (NovoLOG) 1 UNIT/0.01 ML (CHARGE PER UNIT) SC SCH (21:56)
[2022-07-26] MEDS: CLOTRIMAZOLE 1% CREAM (LOTRIMIN) 30 GM TOP SCH (22:03)
[2022-07-27] VITALS (16 sets, daily range): BP systolic 76–133; BP diastolic 42–77
[2022-07-27] MEDS: POTASSIUM CL 10MEQ/50ML IVPB 50 ML IV SCH ×2 (00:15→23:31)
[2022-07-27 04:05] LABS: BASOPHILS % (AUTO) 0 % (0-10); EOSINOPHILS # (AUTO) 0.1 10^3/uL (0.0-0.3); EOSINOPHILS % (AUTO) 1 % (0-10); HEMATOCRIT 33 % (40-54); HEMOGLOBIN 11.2 g/dL (13.3-17.7); LYMPHOCYTES # (AUTO) 0.4 10^3/uL (1.0-4.0); LYMPHOCYTES % (AUTO) 6 % (12-44); MEAN CORPUSCULAR HEMOGLOBIN 26 pg (25-34); MEAN CORPUSCULAR HGB CONC 34 g/dL (32-36); MEAN CORPUSCULAR VOLUME 77 fL (80-99); MEAN PLATELET VOLUME 9.7 fL (9.0-12.2); MONOCYTES # (AUTO) 0.4 10^3/uL (0.0-1.0); MONOCYTES % (AUTO) 5 % (0-12); NEUTROPHILS # (AUTO) 6.7 10^3/uL (1.8-7.8); NEUTROPHILS % (AUTO) 87 % (42-75); PLATELET COUNT 67 10^3/uL (130-400); WHITE BLOOD COUNT 7.7 10^3/uL (4.3-11.0)
[2022-07-27 04:14] LABS: ALBUMIN 2.6 GM/DL (3.2-4.5); POTASSIUM 3.9 MMOL/L (3.6-5.0)
[2022-07-27 04:15] LABS: CALCIUM 7.8 MG/DL (8.5-10.1)
[2022-07-27 04:17] LABS: TOTAL PROTEIN 4.5 GM/DL (6.4-8.2)
[2022-07-27 04:19] LABS: BILIRUBIN,TOTAL 1.1 MG/DL (0.1-1.0)
[2022-07-27 04:20] LABS: CREATININE SERUM 0.58 MG/DL (0.60-1.30)
[2022-07-27] MEDS: inSUlin ASPART (NovoLOG) 1 UNIT/0.01 ML (CHARGE PER UNIT) SC SCH ×3 (05:38→16:50)
[2022-07-27] MEDS: NS IV 1000 ML 1,000 ML IV SCH (06:01)
[2022-07-27] MEDS: ceFAZolin INJECTION 2,000 MG in NS (IVPB) 50 ML IV SCH ×2 (06:01→16:11)
[2022-07-27] MEDS ORDERED: KCL 20 MEQ TAB (K-DUR) PO NR (08:00)
--- NOTE | 2022-07-27 08:10 | Cardiology Progress Note ---
Subjective Date Seen by Provider: Jul 27, 2022 Time Seen by Provider: 08:05 Subjective/Events-last exam Patient was seen at bedside, laying down comfortably Still having generalized weakness and shortness of breath Review of Systems General: No Chills, No Night Sweats; Fatigue, Malaise; No Appetite, No Other HEENT: No Head Aches, No Visual Changes, No Eye Pain, No Ear Pain, No Dysphasia, No Sinus Congestion, No Post Nasal Drip, No Sore Throat, No Other Pulmonary: Dyspnea; No Cough, No Pleuritic Chest Pain, No Other Cardiovascular: No: Chest Pain, Palpitations, Orthopnea, Paroxysmal Noc. Dyspnea, Edema, Lt Headedness, Other Focused Exam Lactate Level 07/26/22 22:30: Lactic Acid Level 4.16*H 07/27/22 00:40: Lactic Acid Level 3.96*H 07/27/22 03:55: Lactic Acid Level 3.50*H Objective-Cardiology Exam Last Set of Vital Signs Vital Signs 07/27/22 07/27/22 04:00 08:00 Temp 36.2 Pulse 110 Resp 18 B/P (MAP) 115/71 (86) Pulse Ox 94 O2 Delivery Nasal Cannula O2 Flow Rate 4.00 I&O Intake and Output 07/27/22 00:00 Intake Total 4003 ml Output Total 3150 ml Balance 853 ml Intake Oral 2303 ml IV Total 1700 ml Output Urine Total 3150 ml # Voids 2 # Urine Diapers 4 General: Alert, Oriented X3, Cooperative HEENT: Atraumatic, PERRLA Neck: Supple, No JVD, No Thyromegaly Lungs: Normal Air Movement, Other (Bilateral rhonchi) Heart: Regular Rate, Normal S1, Normal S2, No Murmurs Abdomen: Normal Bowel Sounds, Soft, No Tenderness, No Hepatosplenomegaly, No Masses Extremities: No Clubbing, No Cyanosis, No Edema, Normal Pulses, No Tenderness/Swelling Skin: No Rashes, No Breakdown, No Significant Lesion Neuro: Normal Gait, Normal Speech, Strength at 5/5 X4 Ext, Normal Tone, Sensation Intact Psych/Mental Status: Mental Status NL, Mood NL Results Lab Laboratory Tests 07/26/22 11:40 07/26/22 16:15 07/27/22 03:55 A/P-Cardiology Admission Diagnosis Metabolic acidosis Atrial fibrillation Coronary artery disease Hypotension Assessment/Plan Metabolic acidosis, lactic acidosis. Unknown underlying cause Possible occult sepsis versus dehydration Questionable underlying gastroenteritis. Managed by primary care physician Paroxysmal atrial fibrillation/flutter, patient underwent atrial flutter ablation in [place] [address] Juarez. He has been off oral anticoagulation as an outpatient. It was restarted on this admission Intermittent sinus tachycardia, patient had a short run of nonsustained ventricular tachycardia. I will continue on beta-blockers and monitor tolerance and response Congestive heart failure, acute on chronic left ventricular systolic dysfunction, ischemic cardiomyopathy, ejection fraction 45 to 50% I will give Lasix and monitor tolerance and response. Sacral decubitus ulcer, managed by medical team. Coronary artery disease, history of multiple cardiac catheterization multiple interventions in the past, Cardiac catheterization done in [facility] in November 2019 and reported that he did not require any stenting. Cardiac catheterization done February 16, 2021 with severe stenosis in the prox right coronary artery with successful primary stenting using Marcia 3.5 x 18mm overlapping with an old stent in the mid RCA. Patent stent in the LAD, mild coronary artery disease otherwise. Cardiac catheterization done February 2022 showing patent stents in the LAD with mild to moderate nonobstructive disease. Currently maintained on aspirin. Peripheral arterial disease, Angiogram was done on September 15, 2020 showing total occlusion of the left anterior tibial artery with successful balloon angioplasty with multiple wires and balloons with excellent results. On the right side anterior tibial artery was atretic and very small. The ulcer on his foot is healed completely. ISABELA was done on October 20, 2020 was on the right side 1.34 and left side 1.45. TBI on the right side was 0.5 and on the left side 0.61, good waveforms was noted Status post respiratory failure. Mild elevation in troponin type II myocardial infarction secondary to hypoxemia in December 2019. Currently asymptomatic Hypotension, reporting history of hypotension. Continue to monitor Hyperlipidemia, lipid profile was done in August 2021 showing total cholesterol 134, HDL 41, triglyceride 282, LDL 60. Continue to monitor Diabetes mellitus, followed and managed by primary care physician History of C-spine surgery done in November 2019. BMI 41, we discussed weight loss History of bipolar disorder. COPD/DAISY, complaining of increased dyspnea, I will refer to Dr. Escobedo. ALINA GREGG MD Jul 27, 2022 08:10
[2022-07-27] MEDS ORDERED: FUROSEMIDE 40 MG/4 ML INJ (LASIX) IVP NR (08:30)
--- NOTE | 2022-07-27 08:49 | ST Dysphagia Evaluation ---
Speech Evaluation-General Medical Diagnosis Sepsis Onset Date: Jul 25, 2022 Therapy Diagnosis Therapy Diagnosis: Oral Dysphagia Precautions Precautions: Fall, Pressure Ulcer, Aspiration Precautions/Isolations: Aspiration, Fall Prevention, Standard Precautions, Pressure Ulcer Referral Referring Physician: Dr. Rogers Reason for Referral: Evaluation/Treatment Medical History Pertinent Medical History: Arthritis, CAD, DM, HTN, NV, Rheumatoid Arthritis Current History The patient is a 56 year-old male with a past medical history of COPD, Bipolar II, T2DM, atrial fibrillation, CHF, and NV, who reported to the emergency room with reports of nausea and vomiting. 07/25/22: CXR: Impression: 1. No acute cardiopulmonary process by portable radiography. Speech PLF/Current-Dysphagia Prior Level of Function The patient initially denied oropharyngeal swallowing difficulties or concerns. Throughout the course of the discussion, the patient then stated he does "choke occasionally" with items and reported the items could be solid consistencies or thin liquids. Next, the patient stated "It's only with water and it's some times." By the close of the discussion, the patient stated the sores of his mouth due to a recent dental procedure have resulted in avoidance of P.O. intake with unintentional weight loss since December (the patient also stated the dental work was as recent as the prior week). At this time, the patient appears to be an unreliable historian for the clinician. Subjective The patient was lying in bed, awake and alert upon entrance to his room by the clinician. The patient greeted the clinician appropriately and was agreeable to participation in the clinical bedside swallowing evaluation. The patient was positioned upright in bed for safe swallowing. At this time, the patient is receiving 4L supplemental oxygen via nasal cannula. Cognitive Status Patient Orientation: Person, Place Oral Motor Skills Dentition: Edentalous (Upper.) Current Food Consistancy: Dysphagia Soft, Thin Liquids Ability to Follow Directions: Fair Oral Expression Ability: Moderate Impairment Voice Voice Phonatory-Based Quality: Harsh Voice Pitch: Normal Voice Loudness: Normal Face Facial Symmetry: Symmetrical Oral-Facial Assessment Oral-Facial Dentition: Normal Labial Seal Description: Normal Smile: Normal Puff Cheeks: Normal Lingual Protrusion: Normal Lingual ROM: Normal Lingual Strength: Normal Volitional Dry Swallow: Yes Voluntary Cough: Yes Can Clear Throat Volitionally: Yes Productive Cough: No Productive Throat Clear: No Dysphagia Evaluation Consistencies Presented: Thin Liquid (One straw drinks prior to refusal.), Pureed (Two teaspoons prior to refusal.) Oral Phase: Reduced Oral Transit The patient displays facial grimacing upon acceptance of P.O. bolus via straw and teaspoon. The patient displays poor bolus formation and decreased posterior transfer (increased time) which he reports is secondary to palatal sores. Laryngeal elevation was present to palpation. The patient displays an intermittent, weak, non-productive cough at baseline, throughout the limited P.O. trials, and following the P.O. trials. Per patient, the cough has been present for one week. Overt s/s of suspected aspiration were not demonstrated with the limited (three) P.O. trials presented prior to patient refusal. The patient's baseline cough does not increase in frequency, productivity, or strength following each swallow. The patient refuses multiple trials of P.O. secondary to reported oral discomfort due to "these mouth sores on the top." The patient reports a recent dental procedure which has resulted in oral pain (provided information to the RN). The patient consumes one straw drink of water prior to refusal and two half teaspoons of applesauce prior to refusal. The patient does consume one spontaneous straw drink of soda present at bedside throughout discussions of recommendations by the clinician. The patient displays an intermittent cough at baseline and throughout the limited trials of P.O. accepted. Due to the limited trials, the patient's inconsistent and fluctuating history of "choking on occasions," the patient's intermittent, weak cough (prior to, during, and following P.O. trials), and the patient's baseline diagnosis of COPD (which results in a higher risk of silent aspiration), the clinician recommends a modified barium swallow evaluation to evaluate for the presence of aspiration. The clinician is unable to provide diet consistency recommendations at bedside due to the patient's refusal for multiple P.O. trials. If s/s of suspected aspiration are demonstrated throughout P.O. intake, the patient should be made NPO pending completion of the recommended modified barium swallow evaluation. T he clinician discussed the recommendations with the RN immediately upon completion. The clinician scheduled the modified barium swallow for 1215 on 07/28/2022. Dysphagia Evaluation Summary At this time, the patient displays oral dysphagia characterized by decreased lingual and oral coordination which the patient reports is secondary to palatal sores (caused by a recent dental procedure). Please see recommendations above due to frequent and consistent patient refusal throughout the evaluation. Speech Short Term Goals Short Term Goals Short Term Goals 1. The patient will tolerate P.O. trials of the least restrictive diet consistency without s/s of suspected aspiration. Time Frame-STG: Three Days. Speech Forms Examiner Goals Halfway Goals 1. The patient will tolerate the least restrictive diet consistency without s/s of suspected aspiration. Time Frame: Five Days. Speech-Plan Treatment Plan Speech Therapy Treatment Plan: Continue Plan of Care Treatment Duration: Jul 30, 2022 Frequency: 2 times per week Estimated Hrs Per Day: .25 hour per day Rehab Potential: Guarded Safety Risks/Education Teaching Recipient: Patient Teaching Methods: Discussion Response to Teaching: Reinforcement Needed Education Topics Provided: Results, Recommendations, Plan of Care Time Speech Therapy Time In: 08:15 Speech Therapy Time Out: 08:35 Total Billed Time: 20 Billed Treatment Time 1, SVETLANA MOSLEY [facility] Jul 27, 2022 08:49
[2022-07-27] MEDS ORDERED: PANTOPRAZOLE 40 MG (PROTONIX) TAB PO SCH (09:00)
[2022-07-27] MEDS ORDERED: MAGIC MOUTHWASH (ADULT) PO PRN ×4 (09:00)
[2022-07-27 09:29] LABS: FREE T4 (FREE THYROXINE) 2.57 NG/DL (0.70-1.48)
[2022-07-27] MEDS: DIVALPROEX 250 MG DELAYED RELEASE (DEPAKOTE) TAB PO SCH ×2 (09:44→20:36)
[2022-07-27] MEDS: ASPIRIN E.C. 81 MG (ECOTRIN) TAB PO SCH (09:44)
[2022-07-27] MEDS: SERTRALINE 100 MG (ZOLOFT) TAB PO SCH (09:45)
[2022-07-27] MEDS: meTOprolol TARTRATE 25 MG (LOPRESSOR) TABLET PO SCH ×2 (09:45→20:34)
[2022-07-27] MEDS: PREGABALIN 150 MG (LYRICA) CAPSULE PO SCH ×3 (09:45→20:34)
[2022-07-27] MEDS: FLUTICASONE NASAL SPRAY (FLONASE) 16 GM BTL NS SCH (09:46)
[2022-07-27] MEDS: CLOTRIMAZOLE 1% CREAM (LOTRIMIN) 30 GM TOP SCH ×2 (09:47→20:44)
[2022-07-27] MEDS: BUPRENORPHINE SL SCH ×3 (09:48→20:37)
--- NOTE | 2022-07-27 11:23 | Progress Note ---
BARTSADAFMICKIABDIAS 07/27/22 1123: Subjective Subjective/Events-last exam Porfirio is a 56 y male with a pmh of COPD, bipolar II, T2DM, afib, CHF, with hx of NM who is being treated for septic UTI and n/v. Today he says he is feeling slightly improved compared to yesterday but he has had increased non-productive cough and shortness of breath. Denies n/v/d/abdo pain today, has not vomitted overnight. Review of Systems General: No Chills, No Night Sweats, No Fatigue HEENT: No Head Aches, No Visual Changes, No Eye Pain Pulmonary: Dyspnea, Cough Cardiovascular: No: Chest Pain, Palpitations Gastrointestinal: No: Nausea, Vomiting, Abdominal Pain, Diarrhea Genitourinary: No Dysuria, No Frequency Musculoskeletal: back pain (chronic) Neurological: Weakness (BLE), Incoordination; No: Change in speech, Confusion Focused Exam Lactate Level 07/27/22 03:55: Lactic Acid Level 3.50*H 07/27/22 08:37: Lactic Acid Level 6.34*H 07/27/22 10:41: Lactic Acid Level 5.82*H Respiratory: Chest Non Tender, Crackles (on inspiration and expiration) Cardiovascular: Irregularly Irregular Skin: normal color, warm/dry, cyanosis Lactic Acid Level Laboratory Tests Test 07/27/22 08:37 07/27/22 10:41 Lactic Acid Level 6.34 MMOL/L (0.50-2.00) *H 5.82 MMOL/L (0.50-2.00) *H Objective Exam Last Set of Vital Signs Vital Signs Date Time Temp Pulse Resp B/P (MAP) Pulse Ox O2 Delivery O2 Flow Rate FiO2 07/27/22 08:00 36.2 110 18 115/71 (86) 07/27/22 04:00 94 Nasal Cannula 4.00 Capillary Refill : Less Than 3 Seconds I&O Intake and Output 07/27/22 00:00 Intake Total 4003 ml Output Total 3150 ml Balance 853 ml Intake Oral 2303 ml IV Total 1700 ml Output Urine Total 3150 ml # Voids 2 # Urine Diapers 4 General: Alert, Oriented X3, Cooperative, No Acute Distress HEENT: Atraumatic, EOMI Lungs: Other (Crackles with inspiration, likely fluid overloaded) Heart: Other (Irregular rhythm) Abdomen: Normal Bowel Sounds, Soft, No Tenderness Extremities: No Clubbing, No Cyanosis, No Edema, No Tenderness/Swelling Skin: No Rashes, No Breakdown, No Significant Lesion Neuro: Normal Speech, Sensation Intact, Other (Unable to ambulate on own. Has wheelchair at home.) Psych/Mental Status: Mental Status NL, Mood NL Results/Procedures Lab Laboratory Tests 07/26/22 11:40: White Blood Count 7.1, Red Blood Count 4.23L, Hemoglobin 11.1L, Hematocrit 33L, Mean Corpuscular Volume 78L, Mean Corpuscular Hemoglobin 26, Mean Corpuscular Hemoglobin Concent 34, Red Cell Distribution Width 19.7H, Platelet Count 82L, Mean Platelet Volume 9.3, Immature Granulocyte % (Auto) 1, Neutrophils (%) (Auto) 87H, Lymphocytes (%) (Auto) 5L, Monocytes (%) (Auto) 6, Eosinophils (%) (Auto) 0, Basophils (%) (Auto) 0, Neutrophils # (Auto) 6.1, Lymphocytes # (Auto) 0.4L, Monocytes # (Auto) 0.5, Eosinophils # (Auto) 0.0, Basophils # (Auto) 0.0, Immature Granulocyte # (Auto) 0.1, Neutrophils % (Manual) 87, Lymphocytes % (Manual) 9, Monocytes % (Manual) 4, Clumped Platelets FEW SMALL CLUMPS OBS, Percent Immature Platelet Fraction 3.2, Hypochromasia SLIGHT, Microcytosis MODERATE, [place] Cells MARKED, Elliptocytes SLIGHT, Absolute Reticulocyte Count 28, Percent Reticulocyte Count 0.67, Fibrinogen 299, D-Dimer 0.38, Sodium Level 134L, Potassium Level 3.2L, Chloride Level 99, Carbon Dioxide Level 18L, Anion Gap 17H, Blood Urea Nitrogen 24H, Creatinine 0.66, Estimat Glomerular Filtration Rate 109, BUN/Creatinine Ratio 36, Glucose Level 108H, Lactic Acid Level 5.64*H, Calcium Level 7.5L, Smear Scan 07/26/22 16:15: Potassium Level 3.0L, Lactic Acid Level 5.47*H 07/26/22 20:22: Lactic Acid Level 4.30*H 07/26/22 20:58: Glucometer 156H 07/26/22 22:30: Lactic Acid Level 4.16*H 07/27/22 00:40: Lactic Acid Level 3.96*H 07/27/22 03:55: Lactic Acid Level 3.50*H, White Blood Count 7.7, Red Blood Count 4.33, Hemoglobin 11.2L, Hematocrit 33L, Mean Corpuscular Volume 77L, Mean Corpuscular Hemoglobin 26, Mean Corpuscular Hemoglobin Concent 34, Red Cell Distribution Width 19.5H, Platelet Count 67L, Mean Platelet Volume 9.7, Immature Granulocyte % (Auto) 1, Neutrophils (%) (Auto) 87H, Lymphocytes (%) (Auto) 6L, Monocytes (%) (Auto) 5, Eosinophils (%) (Auto) 1, Basophils (%) (Auto) 0, Neutrophils # (Auto) 6.7, Lymphocytes # (Auto) 0.4L, Monocytes # (Auto) 0.4, Eosinophils # (Auto) 0.1, Basophils # (Auto) 0.0, Immature Granulocyte # (Auto) 0.1, Sodium Level 137, Potassium Level 3.9, Chloride Level 103, Carbon Dioxide Level 17L, Anion Gap 17H, Blood Urea Nitrogen 20H, Creatinine 0.58L, Estimat Glomerular Filtration Rate 113, BUN/Creatinine Ratio 34, Glucose Level 113H, Calcium Level 7.8L, Corrected Calcium 8.9, Total Bilirubin 1.1H, Aspartate Amino Transf (AST/SGOT) 80H, Alanine Aminotransferase (ALT/SGPT) 100H, Alkaline Phosphatase 119, Total Protein 4.5L, Albumin 2.6L 07/27/22 05:35: Glucometer 126H 07/27/22 08:37: Lactic Acid Level 6.34*H, Thyroid Stimulating Hormone (TSH) 0.00L, Free Thyroxine 2.57H 07/27/22 10:35: Glucometer 206H 07/27/22 10:41: Lactic Acid Level 5.82*H Microbiology 07/25/22 Blood Culture - Preliminary, Resulted No growth 07/25/22 Urine Culture - Final, Complete Strep, Beta Hemolytic Group B Assessment/Plan Assessment/Plan Assessment & Plan 1. Sepsis likely due to UTI - Cefepime stopped. Cefazolin Started. - Stop fluids due to pulmonary congestion - Continue to monitor labs, following lactate - Zofran for nausea as needed 2. Hypochloremic, hypokalemic metabolic acidosis likely due to dehydration - Lactic Acidosis contributing - repeat CXR - repeat BMP, K+ and Cl- wnl today - Cr wnl today 3. Lactic Acidosis - Likely due to septic infection - Med reconciliation, consider holding metformin 4. Elevated Liver Enzymes - Hepatitis panel pending - Liver u/s - Fibrinogen and D-dimer wnl - PT and PTT elevated, INR 1.3. 5. Sacral Ulcer - Wound Care recommends daily dressing changes - Appreciate their assistance. 6. Afib - run of Vtach last night, HR 98 on evaluation today - Echo done, EF 45-50% w/ physiologic Pulm Regurg - Consider anticoagulants inpatient pending Liver studies. 7. Primary Hyperthyroidism - TSH 0.00, T4 2.57, T3 pending - Check Thyrotropin receptor Ab - Consider RAIU to determine etiology if Ab neg. 8. Dysphagia - NPO - Barium swallow ordered 9. Chronic Pain - Continue home buprinorphine 10. COPD - Continue home medications as appropriate. 11. T2DM - Home medications. - hold metformin as it is possibly contributing to lactic acidosis 12. CHF - Continue home medications as appropriate. JACIEL ROLDAN MD 07/27/22 2100: Supervisory-Addendum Brief Verification & Attestation Participated in pt care: history, MDM, physical Personally performed: exam, history, MDM, supervision of care Care discussed with: Medical Student Procedures: n/a I personally saw and examined patient and repeated the history and agree with the medical student documentation. I directed the plan of care. MAYRA GEIGER Jul 27, 2022 11:23 JACIEL ROLDAN MD Jul 27, 2022 21:00
[2022-07-27] MEDS: UMECLIDINIUM BROMIDE (INCRUSE ELLIPTA) 7'S IH SCH (12:09)
--- NOTE | 2022-07-27 15:39 | Diagnostic Imaging Report ---
PROCEDURE: US Hepatic (Liver). TECHNIQUE: Multiple real-time grayscale images were obtained over the right upper quadrant in various projections. INDICATION: Elevated liver enzymes. FINDINGS: Liver is mildly enlarged at 18.4 cm. The portal vein is patent and shows normal direction of flow. No liver mass is detected. Gallbladder is without stones or sludge. No wall thickening or biliary duct dilatation is seen. The visualized pancreas is unremarkable. Aorta is nonaneurysmal. IVC is patent. Right kidney is without calculi or hydronephrosis. There is no ascites. IMPRESSION: Unremarkable hepatic ultrasound. Dictated by: Dictated on workstation # [id number]
[2022-07-27] MEDS ORDERED: RT-ALBUTEROL/IPRATROPIUM 3 ML (DUONEB) VIAL INH PRN (16:00)
--- NOTE | 2022-07-27 17:08 | Diagnostic Imaging Report ---
INDICATION: Respiratory failure. COMPARISON: Exam compared with study of 07/25/2022. FINDINGS: There are five-lobed bilateral nodular and largely interstitial-type infiltrates, predominantly peripheral and slightly asymmetric, greater right. These are all new from prior and are presumed to reflect nonspecific infectious disease. The heart size and pulmonary vascularity are normal. No effusion or pneumothorax. IMPRESSION: Extensive nodular bilateral interstitial infiltrates with no pleural pathology or brady failure pattern. Dictated by: Dictated on workstation # [id number]
[2022-07-27 17:15] LABS: BASOPHILS % (AUTO) 0 % (0-10); EOSINOPHILS % (AUTO) 0 % (0-10); HEMATOCRIT 35 % (40-54); HEMOGLOBIN 11.7 g/dL (13.3-17.7); LYMPHOCYTES # (AUTO) 0.5 10^3/uL (1.0-4.0); LYMPHOCYTES % (AUTO) 5 % (12-44); MEAN CORPUSCULAR HEMOGLOBIN 26 pg (25-34); MEAN CORPUSCULAR HGB CONC 33 g/dL (32-36); MEAN CORPUSCULAR VOLUME 79 fL (80-99); MEAN PLATELET VOLUME 10.1 fL (9.0-12.2); MONOCYTES # (AUTO) 0.5 10^3/uL (0.0-1.0); MONOCYTES % (AUTO) 5 % (0-12); NEUTROPHILS # (AUTO) 8.8 10^3/uL (1.8-7.8); NEUTROPHILS % (AUTO) 89 % (42-75)
[2022-07-27 17:21] LABS: PLATELET COUNT 77 10^3/uL (130-400)
[2022-07-27 17:30] LABS: ALBUMIN 2.6 GM/DL (3.2-4.5); POTASSIUM 3.5 MMOL/L (3.6-5.0)
[2022-07-27 17:33] LABS: TOTAL PROTEIN 4.7 GM/DL (6.4-8.2)
--- NOTE | 2022-07-27 17:33 | Progress Note ---
Subjective Subjective/Events-last exam Called by nurse, patient more somnolent, ABG ordered, he then had bradycardia into the 30s which recovered but his blood pressure is now upper 80s systolic and he remains lethargic. He is able to nod and shake his head, and when asked if he has shortness of breath, he nods, when asked about chest pain he shakes his head. His IV fluid was stopped and he received 40 mg IV lasix this morning due to rales and increased work of breathing, and he had metoprolol started due to 8 beats of vtach overnight. and son at bedside at time of my exam and status discussed. Focused Exam Lactate Level 07/27/22 13:28: Lactic Acid Level 5.37*H 07/27/22 15:56: Lactic Acid Level 4.23*H 07/27/22 17:06: Lactic Acid Level Laboratory Tests Test 07/27/22 15:56 07/27/22 17:06 Lactic Acid Level 4.23 MMOL/L (0.50-2.00) *H Objective Exam Last Set of Vital Signs Vital Signs Date Time Temp Pulse Resp B/P (MAP) Pulse Ox O2 Delivery O2 Flow Rate FiO2 07/27/22 17:20 69 31 90/58 (69) 94 NIV Bilevel 35.00 07/27/22 16:05 37.2 36 Capillary Refill : Less Than 3 Seconds I&O Intake and Output 07/26/22 23:59 Intake Total 4003 ml Output Total 3150 ml Balance 853 ml Intake Oral 2303 ml IV Total 1700 ml Output Urine Total 3150 ml # Voids 2 # Urine Diapers 4 General: Other (lethargic) Lungs: Other (rales) Heart: Regular Rate Neuro: Other (able to follow instructions, nod and shake head to questions, but falls asleep between questions) Results/Procedures Lab Laboratory Tests 07/26/22 20:22: Lactic Acid Level 4.30*H 07/26/22 20:58: Glucometer 156H 07/26/22 22:30: Lactic Acid Level 4.16*H 07/27/22 00:40: Lactic Acid Level 3.96*H 07/27/22 03:55: White Blood Count 7.7, Red Blood Count 4.33, Hemoglobin 11.2L, Hematocrit 33L, Mean Corpuscular Volume 77L, Mean Corpuscular Hemoglobin 26, Mean Corpuscular Hemoglobin Concent 34, Red Cell Distribution Width 19.5H, Platelet Count 67L, Mean Platelet Volume 9.7, Immature Granulocyte % (Auto) 1, Neutrophils (%) (Auto) 87H, Lymphocytes (%) (Auto) 6L, Monocytes (%) (Auto) 5, Eosinophils (%) (Auto) 1, Basophils (%) (Auto) 0, Neutrophils # (Auto) 6.7, Lymphocytes # (Auto) 0.4L, Monocytes # (Auto) 0.4, Eosinophils # (Auto) 0.1, Basophils # (Auto) 0.0, Immature Granulocyte # (Auto) 0.1, Sodium Level 137, Potassium Level 3.9, Chloride Level 103, Carbon Dioxide Level 17L, Anion Gap 17H, Blood Urea Nitrogen 20H, Creatinine 0.58L, Estimat Glomerular Filtration Rate 113, BUN/Creatinine Ratio 34, Glucose Level 113H, Lactic Acid Level 3.50*H, Calcium Level 7.8L, Corrected Calcium 8.9, Total Bilirubin 1.1H, Aspartate Amino Transf (AST/SGOT) 80H, Alanine Aminotransferase (ALT/SGPT) 100H, Alkaline Phosphatase 119, Total Protein 4.5L, Albumin 2.6L 07/27/22 05:35: Glucometer 126H 07/27/22 08:37: Lactic Acid Level 6.34*H, Thyroid Stimulating Hormone (TSH) 0.00L, Free Thyroxine 2.57H 07/27/22 10:35: Glucometer 206H 07/27/22 10:41: Lactic Acid Level 5.82*H 07/27/22 13:28: Lactic Acid Level 5.37*H 07/27/22 15:56: Lactic Acid Level 4.23*H 07/27/22 16:37: Glucometer 103 07/27/22 17:03: Bedside Blood Gas pH (LAB) 7.304*L, Bedside Blood Gas pCO2 (LAB) 51.3H, Bedside Blood Gas pO2 (LAB) 49L, Bedside Blood Gas HCO3 (LAB) 25.5, POC Blood Gas Total CO2 Calc 27, Bedside Bl Gas O2 Saturation (Calc) 80L, Bedside Arterial Blood Base Excess -1 07/27/22 17:06: White Blood Count 10.0, Red Blood Count 4.51, Hemoglobin 11.7L, Hematocrit 35L, Mean Corpuscular Volume 79L, Mean Corpuscular Hemoglobin 26, Mean Corpuscular Hemoglobin Concent 33, Red Cell Distribution Width 20.1H, Platelet Count 77L, Mean Platelet Volume 10.1, Immature Granulocyte % (Auto) 2, Neutrophils (%) (Auto) 89H, Lymphocytes (%) (Auto) 5L, Monocytes (%) (Auto) 5, Eosinophils (%) (Auto) 0, Basophils (%) (Auto) 0, Neutrophils # (Auto) 8.8H, Lymphocytes # (Auto) 0.5L, Monocytes # (Auto) 0.5, Eosinophils # (Auto) 0.0, Basophils # (Auto) 0.0, Immature Granulocyte # (Auto) 0.2H, Percent Immature Platelet Fraction 4.3 Microbiology 07/25/22 Blood Culture - Preliminary, Resulted No growth 07/25/22 Urine Culture - Final, Complete Strep, Beta Hemolytic Group B Assessment/Plan Assessment/Plan Assessment & Plan Worsening respiratory failure: ABG pending, CXR pending, suspect pulmonary edema, but blood pressure is also low so repeat lasix is concerning, will tr ansfer to ICU and consult critical care, discussed possibility of intubation with family and they note has required mechanical ventilation twice in the past. Lactic acidosis: trended down to 4, continued on cefazolin for GBS in urine, may broaden coverage if recommended by critical care. Blood cultures negative to date. Bradycardia: with underlying CHF, possibly due to start of metoprolol, appreciate Cardiology recommendations. JACIEL ROLDAN MD Jul 27, 2022 17:33
[2022-07-27 17:35] LABS: BILIRUBIN,TOTAL 0.7 MG/DL (0.1-1.0)
[2022-07-27 17:36] LABS: CREATININE SERUM 0.63 MG/DL (0.60-1.30)
[2022-07-27] MEDS ORDERED: PHARMACY TO DOSE IV SCH (17:45)
[2022-07-27] MEDS ORDERED: PIPERACILLIN SODIUM/TAZOBACTAM 4.5 GM in NS (IVPB) 100 ML IV NR ×2 (17:45→18:15)
[2022-07-27] MEDS ORDERED: PATIENT MAY USE OWN MEDS, ALL MC SCH (17:45)
[2022-07-27] MEDS ORDERED: VANCOMYCIN 2000 MG/NS 500 ML IVPB IV NR ×2 (18:00)
[2022-07-27] MEDS: VRAYLAR 1.5 MG CAPSULE PO SCH (18:05)
--- NOTE | 2022-07-27 18:13 | Physician Query Clarification ---
Physician Query-General Query to Physician: The medical record reflects the following clinical scenario: The patient, in the setting of History/Risk factors, Stage 3 PU, Urine culture pos, Wheel chair bound admitted with Sepsis Clinical Findings Admission VS/Labs: HR 104, RR 16, BP 128/89, SpO2 94% sat on room air T 36.6, WBC 14.6, H, lactic acid 14.36 then 12.63 After fluids Treatment ER: ceftriaxone IV, normal saline 3 L added Vanco IV and Zosyn IV, Question: Do you agree with the impression of Sepsis with septic shock present on admission per per Dr. Immanuel Vieira? 1. Yes; will document Sepsis with Septic shock, present on admission in the Progress Notes 2. No; will continue current documentation in the Progress Notes 3. Other; will document explanation of clinical findings 4. Clinically undetermined; no explanation for clinical findings Please clarify and document your clinical opinion in the Progress Notes and Discharge Summary including the definitive and/or presumptive diagnosis, (suspected or probable), related to the above clinical findings. Please include clinical findings supporting your diagnosis. In responding to this query, please exercise your independent professional judgment. The purpose of this communication is to more accurately reflect the complexity of your patients condition. The fact that a question is asked does not imply that any particular answer is desired or expected. Thank you for timely response to this clarification. Melisa Doe RN, MSN Clinical Network Engineering Advisor [phone] PHYSICIAN RESPONSE: Based on the clinical findings in the record, please respond to the query above on this document as an addendum. Physician Response: Physician Response As documented in the H&P, cause of severe lactic acidosis is unclear, but I do suspect most likely septic shock, he did not receive full 30 cc/kg bolus in ER due to CHF. If you have questions please contact: Senior Software Developer: Ext: Thank you for your time and cooperation. Clinical Network Engineering Advisor/Senior Software Developer This is a permanent part of the medical record MELISA DOE Jul 27, 2022 18:12 JACIEL ROLDAN MD Jul 28, 2022 15:07
[2022-07-27] MEDS: ENOXAPARIN 40 MG/0.4 ML (LOVENOX) SYR SC SCH (18:14)
--- NOTE | 2022-07-27 18:49 | Tele-ICU Consult ---
History of Present Illness History of Present Illness Date Seen by Provider: Jul 27, 2022 Time Seen by Provider: 18:48 Date of Admission (Tele-ICU Physician , consultation) Available chart/ vitals / labs / Images reviewed H&P is from ER notes Patient's information available about PMH, Shx, Fhx allergy reviewed inEMR. ROS as per chart and RN report Now in ICU, hemodynamically stable Video assessment done using teleICU camera, rest of exam as per RN Discussed with RN. Consultants: Hospital course: A/P Acutre resp vita ( fivcen cxr ) can not r/o PNA , and possible AECOPD with reported wheezing - NIPPV -on avaps - follow abg = lasix given - abx added for possible PNA UTI/ possible PNA - cont ABX Elev LFT - US liver Lethargy - with resp acidosis - forllow abg on BIPAP APF - rate controlled - cards consulted CHF - EF 40% - lasix was given hypotansion , relative with elev lactate and BNP received IVF on admission , received lasix today most likley will need pressors , will place line Lines : , (Central Line Necessity Reviewed) Zimmerman: OG: Nutrition: Analgesia: Anxiety/ delirium VTE Prophylaxis:lovenox 40 Stress Ulcer Prophylaxis: PPI Glycemic Control: ISS Plans in collaboration with bedside consultants and IM MDs. Discussed with RN to reach out if any questions or concerns A total of31 minutes of critical care time was devoted to this patient today, required to treat and/or prevent further deterioration of critical care condition ( as above ) . Reason for Visit: Atrial fibrillation Allergies and Home Medications Allergies Coded Allergies: No Known Drug Allergies (Unverified , 04/23/19) Home Medications Acetaminophen 500 Mg Tablet, 1,000 MG PO TID PRN for PAIN-MILD (1-4), (Reported) Albuterol Sulfate 90 Mcg Hfa.aer.ad, 2 PUFF INH Q6H PRN for SHORTNESS OF BREATH, (Reported) Aspirin 81 Mg Tablet.dr, 81 MG PO DAILY, (Reported) Atorvastatin Calcium 40 Mg Tablet, 40 MG PO HS, (Reported) Buprenorphine HCl 2 Mg Tab.subl, 2 MG SL TID, (Reported) Cariprazine Hydrochloride 1.5 Mg Capsule, 1.5 MG PO DAILY, (Reported) Cetirizine HCl 10 Mg Tablet, 10 MG PO DAILY PRN for ALLERGY SYMPTOMS, (Reported) Dapagliflozin Propanediol 10 Mg Tablet, 10 MG PO DAILY, (Reported) Divalproex Sodium 500 Mg Tablet.dr, 500 MG PO BID, (Reported) Fluticasone Propionate 50 Mcg/Actuation [place].susp, 1-2 SPRAY NSEACH DAILY PRN for CONGESTION, (Reported) Fluticasone/Salmeterol 250 Mcg-50 Mcg/Dose Blst.w.dev, 1 PUFF IH BID PRN for SHORTNESS OF BREATH, (Reported) Hydrochlorothiazide 12.5 Mg Tablet, 12.5 MG PO DAILY, (Reported) Insulin Detemir 100 Unit/Ml (3 Ml) Insuln.pen, 5 UNITS SQ BID, (Reported) Metformin HCl 500 Mg Tab.er.24h, 500 MG PO BID, (Reported) Nitroglycerin 0.4 Mg Tab.subl, 0.4 MG SL UD PRN for CHEST PAIN (ANGINA), (Reported) Ondansetron HCl 4 Mg Tablet, 4 MG PO TID PRN for NAUSEA/VOMITING-1ST LINE, (Reported) Pantoprazole Sodium 40 Mg Tablet.dr, 40 MG PO DAILY, (Reported) Pregabalin 150 Mg Capsule, 150 MG PO TID, (Reported) Ropinirole HCl 1 Mg Tablet, 1 MG PO HS, (Reported) TAKES 1MG ALONG WITH A 0.5MG Ropinirole HCl 0.5 Mg Tablet, 0.5 MG PO Q12H, (Reported) MORNING AND BEDTIME Sertraline HCl 100 Mg Tablet, 100 MG PO DAILY, (Reported) Tamsulosin HCl 0.4 Mg Cap, 0.4 MG PO HS, (Reported) Tizanidine HCl 4 Mg Tablet, 4 MG PO TID PRN for MUSCLE SPASMS, (Reported) Umeclidinium [place] 62.5 Mcg/Actuation Blst.w.dev, 1 PUFF INH DAILY, (Reported) Past Medical/Social/Family Hx Patient Social History Marrital Status: Employed/Student: employed Tobacco Use?: No Smoking Status: Former Smoker (quit 6 yrs ago, former 1ppd for 20 yrs) Smokeless Tobacco Frequency: Former User Use of E-Cig and/or Vaping dev: No Substance use?: Yes Substance type: Marijuana (Takes occasionally.) Alcohol Use?: No Pt stated abuse/neglect: No Immunizations Up To Date Influenza Vaccine Up-to-Date: Yes; Up-to-Date Tetanus Booster (TDap): Unknown Hepatitis A: No Hepatitis B: No TB Skin Test: None Date of Pneumonia Vaccine: Aug 17, 2015 Current Status Advance Directives: No Communicates: Verbally Primary Language: Vincentian Preferred Spoken Language: Vincentian Is interpretation needed?: No Sensory deficits: Vision impairment Implanted or Applied Medical D: BiPAP, Stents Past Medical History CAD Ischemic cardiomyopathy Bipolar d/o Chronic leg and foot wounds Review of Systems Constitutional: see HPI Focused Exam Lactate Level 07/27/22 13:28: Lactic Acid Level 5.37*H 07/27/22 15:56: Lactic Acid Level 4.23*H 07/27/22 17:06: Lactic Acid Level 3.94*H Height, Weight, BMI Height: 5'8.00" Weight: 255lbs. oz. [id number]; 32.73 BMI Method:Stated Lactic Acid Level Laboratory Tests Test 07/27/22 15:56 07/27/22 17:06 Lactic Acid Level 4.23 MMOL/L (0.50-2.00) *H 3.94 MMOL/L (0.50-2.00) *H Exam Exam Patient acknowledged, consented, and participated in this virtual visit which was conducted using real time audio/video Vital Signs Date Time Temp Pulse Resp B/P (MAP) Pulse Ox O2 Delivery O2 Flow Rate FiO2 07/27/22 18:00 70 21 98/64 (75) 97 NIV Bilevel 40.00 07/27/22 17:42 NIV Bilevel 40.00 07/27/22 17:20 69 31 90/58 (69) 94 NIV Bilevel 35.00 07/27/22 17:18 NIV Bilevel 35.00 07/27/22 17:15 70 25 94 35.00 07/27/22 16:05 37.2 78 97 36 07/27/22 16:00 36.4 78 18 98/63 (75) 97 Nasal Cannula 5.00 07/27/22 13:00 75 07/27/22 11:54 37.2 78 18 123/49 (73) 97 Nasal Cannula 4.00 07/27/22 09:00 93 Nasal Cannula 4.00 07/27/22 08:00 36.2 110 18 115/71 (86) 07/27/22 07:00 113 07/27/22 04:00 36.7 98 17 133/68 (89) 94 Nasal Cannula 4.00 07/27/22 01:00 88 07/27/22 00:55 89 96 07/27/22 00:43 96 Nasal Cannula 4.00 07/26/22 23:45 36.9 89 20 120/65 (83) 96 Nasal Cannula 4.00 07/26/22 21:25 97 Nasal Cannula 4.00 07/26/22 20:00 36.0 82 17 118/60 (79) 97 Nasal Cannula 4.00 07/26/22 19:00 86 I & O 07/27/22 07:00 Intake Total 2770 ml Output Total 2350 ml Balance 420 ml Height & Weight Height: 5'8.00" Weight: 255lbs. oz. [id number]; 32.73 BMI Method:Stated General Appearance: Chronically ill, Mild Distress, Obese, Other HEENT: PERRL/EOMI, Pharynx Normal (Small grayish ulcerated lesion on the right upper gums healing without purulence, induration or erythema), Moist Mucous Membranes Neck: Full Range of Motion, Normal Inspection Respiratory: Chest Non Tender, Crackles (on inspiration and expiration) Cardiovascular: Irregularly Irregular Capillary Refill: Less Than 3 Seconds Gastrointestinal: non tender, soft Extremity: Normal Capillary Refill, No Calf Tenderness, Pedal Edema (2+ bipedal edema without erythema or induration) Neurologic/Psychiatric: Alert, Oriented x3, No Motor/Sensory Deficits Skin: Normal Color, Warm/Dry Lymphatic: No Adenopathy Results Lab Laboratory Tests 07/26/22 04:05 07/26/22 11:40 07/26/22 16:15 07/27/22 03:55 07/27/22 17:06 Assessment/Plan Assessment/Plan 1 PETER VOGEL MD Jul 27, 2022 18:49
[2022-07-27] MEDS: RT-ALBUTEROL/IPRATROPIUM 3 ML (DUONEB) VIAL INH SCH ×2 (18:50→22:29)
[2022-07-27] MEDS: TAMSULOSIN 0.4 MG (FLOMAX) CAP PO SCH (20:43)
[2022-07-27 21:05] LABS: CALCIUM 8.1 MG/DL (8.5-10.1); CREATININE SERUM 0.73 MG/DL (0.60-1.30); MAGNESIUM 1.4 MG/DL (1.6-2.4); POTASSIUM 3.4 MMOL/L (3.6-5.0)
[2022-07-27 21:52] LABS: HEPATITIS C ANTIBODY C Non-Reactive (Non-Reactive)
--- NOTE | 2022-07-27 22:05 | Consultation - Surgery ---
History of Present Illness History of Present Illness Patient Consulted On(richard/time) 07/27/22 21:58 Time Seen by Provider: 21:31 Reason for Visit: Atrial fibrillation History of Present Illness Surgery asked to consult regarding Hypotension and Venous Insufficiency. HPI per ED: The patient [facility] with his provider and spouse and chief complaint of weakness, nausea and vomiting the last several days. He has been having nausea and vomiting for the past couple months since starting Ozempic according to his . They stopped the medication 2 weeks ago. He has a history of heart failure, COPD, atrial fibrillation status post ablation by Dr. Allen at [facility] and and diabetes. He woke up this morning with increased swelling in his legs and weakness. He was in the clinic last week with complaints of weakness and dehydration and they gave him some fluids by IV. He went to the ER 10 days ago. He is not having any pain anywhere. He does deal with chronic constipation and is on buprenorphine. His provider remarks that she did a cleanout with him over the last week with laxatives and this did not improve his symptoms. At the ER he remarked he had a abscess on his right upper gums that had drained some purulence. He had a follow-up with a dentist scheduled. His primary care provider is Dr. Dubose and enrollment management vice president is Dr. Franklin. He is taking Zofran and states it last for about 4 hours but still has nausea. PCP noted that his labs demonstrated a TSH that was low. At baseline the patient is wheelchair-bound and transfers with some help. This morning he said he had to have a lot of help to get dressed and transition to his wheelchair. Patient went to the dentist last week and was told that they thought it was healing and if it persisted for more than another week or 2 then to come back and they would biopsy it. Cardiac catheterization by Dr. Franklin February, 5 months ago demonstrating patent stents in the LAD, left circumflex and right coronary artery with mild to moderate nonobstructive disease. Normal left ventricular end-diastolic pressure. Echocardiogram from 18 months ago demonstrated an EF of 55 to 65% with grade 1 diastolic dysfunction. Ischemic cardiomyopathy and chronic compensated left ventricular systolic dysfunction. When I saw pt he was in the ICU with BiPap on. He could answer yes or no with shake of head, couldn't talk; his was in room. Nurse states he has been dropping his SBP into the 70's and 80's, may need pressors. Allergies and Home Medications Allergies Coded Allergies: No Known Drug Allergies (Unverified , 04/23/19) Patient Home Medication List Home Medication List Reviewed: Yes Acetaminophen (Tylenol Extra Strength) 500 Mg Tablet, 1,000 MG PO TID PRN for PAIN-MILD (1-4), (Reported) Entered as Reported by: AVINASH ALEMAN on 07/26/22 1015 Last Action: Held Albuterol Sulfate (Ventolin Hfa) 90 Mcg Hfa.aer.ad, 2 PUFF INH Q6H PRN for SHORTNESS OF BREATH, (Reported) Entered as Reported by: AVINASH ALEMAN on 07/26/22 101 Last Action: Continued Aspirin (Aspirin EC) 81 Mg Tablet.dr, 81 MG PO DAILY, (Reported) Entered as Reported by: AVINASH ALEMAN on 03/21/21 1223 Last Action: Continued Atorvastatin Calcium (Atorvastatin Calcium) 40 Mg Tablet, 40 MG PO HS, (Reported) Entered as Reported by: GUILLERMO GILES on 08/18/19 0957 Last Action: Continued Buprenorphine HCl (Buprenorphine HCl) 2 Mg Tab.subl, 2 MG SL TID, (Reported) Entered as Reported by: MENDOZA PEACE on 03/01/22 0835 Last Action: Converted Cariprazine Hydrochloride (Vraylar) 1.5 Mg Capsule, 1.5 MG PO DAILY, (Reported) Entered as Reported by: GUILLERMO GILES on 08/18/19 0957 Last Action: Converted Cetirizine HCl (Cetirizine HCl) 10 Mg Tablet, 10 MG PO DAILY PRN for ALLERGY SYMPTOMS, (Reported) Entered as Reported by: AVINASH ALEMAN on 07/26/22 101 Last Action: Continued Dapagliflozin Propanediol (Farxiga) 10 Mg Tablet, 10 MG PO DAILY, (Reported) Entered as Reported by: GUILLERMO GILES on 08/18/19 1003 Last Action: Held Divalproex Sodium (Divalproex Sodium) 500 Mg Tablet.dr, 500 MG PO BID, (Reported) Entered as Reported by: AVINASH ALEMAN on 07/26/22 101 Last Action: Converted Fluticasone Propionate (Fluticasone Propionate) 50 Mcg/Actuation [place].susp, 1-2 SPRAY NSEACH DAILY PRN for CONGESTION, (Reported) Entered as Reported by: AVINASH ALEMAN on 07/26/22 1018 Last Action: Continued Fluticasone/Salmeterol (Advair 250-50 Diskus) 250 Mcg-50 Mcg/Dose Blst.w.dev, 1 PUFF IH BID PRN for SHORTNESS OF BREATH, (Reported) Entered as Reported by: MENDOZA PEACE on 03/01/22834 Last Action: Converted Hydrochlorothiazide (Hydrochlorothiazide) 12.5 Mg Tablet, 12.5 MG PO DAILY, (Reported) Entered as Reported by: MENDOZA PEACE on 03/01/22834 Last Action: Held Insulin Detemir (Levemir Flextouch) 100 Unit/Ml (3 Ml) Insuln.pen, 5 UNITS SQ BID, (Reported) Entered as Reported by: DEBORAH MEJIAS on 08/24/2134 Last Action: Held Metformin HCl (Metformin HCl ER) 500 Mg Tab.er.24h, 500 MG PO BID, (Reported) Entered as Reported by: AVINASH ALEMAN on 07/26/221014 Last Action: Held Nitroglycerin (Nitrostat) 0.4 Mg Tab.subl, 0.4 MG SL UD PRN for CHEST PAIN (ANGINA), (Reported) Entered as Reported by: DEBORAH MEJIAS on 08/24/21933 Last Action: Held Ondansetron HCl (Ondansetron HCl) 4 Mg Tablet, 4 MG PO TID PRN for NAUSEA/VOMITING-1ST LINE, (Reported) Entered as Reported by: AVINASH ALEMAN on 07/26/221014 Last Action: Held Pantoprazole Sodium (Pantoprazole Sodium) 40 Mg Tablet.dr, 40 MG PO DAILY, (Reported) Entered as Reported by: GUILLERMO GILES on 08/18/19 0853 Last Action: Continued Pregabalin (Pregabalin) 150 Mg Capsule, 150 MG PO TID, (Reported) Entered as Reported by: AVINASH ALEMAN on 07/26/221014 Last Action: Continued Ropinirole HCl (Ropinirole HCl) 1 Mg Tablet, 1 MG PO HS, (Reported) Entered as Reported by: MENDOZA PEACE on 03/01/2235 Last Action: Held Ropinirole HCl (Ropinirole HCl) 0.5 Mg Tablet, 0.5 MG PO Q12H, (Reported) Entered as Reported by: AVINASH ALEMAN on 07/26/22 101 Last Action: Held Sertraline HCl (Sertraline HCl) 100 Mg Tablet, 100 MG PO DAILY, (Reported) Entered as Reported by: MENDOZA PEACE on 09/15/20 1732 Last Action: Continued Tamsulosin HCl (Flomax) 0.4 Mg Cap, 0.4 MG PO HS, (Reported) Entered as Reported by: MENDOZA PEACE on 09/15/20 1158 Last Action: Continued Tizanidine HCl (Tizanidine HCl) 4 Mg Tablet, 4 MG PO TID PRN for MUSCLE SPASMS, (Reported) Entered as Reported by: AVINASH ALEMAN on 07/26/22 101 Last Action: Continued Umeclidinium [place] (Incruse Ellipta) 62.5 Mcg/Actuation Blst.w.dev, 1 PUFF INH DAILY, (Reported) Entered as Reported by: AVINASH ALEMAN on 07/26/22 101 Last Action: Continued Discontinued Medications Cetirizine HCl (Zyrtec) 10 Mg Tablet, 10 MG PO DAILY, (Reported) Discontinued Reason: Duplicate Order Entered as Reported by: MENDOZA PEACE on 03/01/22834 Last Action: Discontinued Clopidogrel Bisulfate (Clopidogrel) 75 Mg Tablet, 75 MG PO DAILY, (Reported) Discontinued Reason: No Longer Taking Entered as Reported by: AVINASH ALEMAN on 03/21/21 1223 Last Action: Discontinued Divalproex Sodium (Depakote) 500 Mg Tablet.dr, 500 MG PO BID, (Reported) Discontinued Reason: Duplicate Order Entered as Reported by: GUILLERMO GILES on 08/18/19 1002 Last Action: Discontinued Ipratropium/Albuterol Sulfate (Iprat-Albut 0.5-3(2.5) mg/3 ml) 0.5 Mg-3 Mg (2.5 Mg Base)/3 Ml Ampul.neb, 3 ML IH TID PRN for SHORTNESS OF BREATH, (Reported) Discontinued Reason: No Longer Taking Entered as Reported by: MENDOZA PEACE on 03/01/22834 Last Action: Discontinued Metformin HCl (Metformin HCl ER) 500 Mg Tab.er.24, 500 MG PO BID Discontinued Reason: Duplicate Order Prescribed by: ALINA FRANKLIN on 03/01/22912 Last Action: Discontinued Pregabalin (Lyrica) 150 Mg Capsule, 150 MG PO TID, (Reported) Discontinued Reason: Duplicate Order Entered as Reported by: MENDOZA PEACE on 03/01/22834 Last Action: Discontinued Ropinirole HCl (Ropinirole HCl) 1 Mg Tablet, 0.5 MG PO DAILY, (Reported) Discontinued Reason: Prescription changed Entered as Reported by: MENDOZA PEACE on 03/01/22834 Semaglutide (Ozempic) 0.25 Mg/0.2 Ml Pen.injctr, 0.5 MG SQ SUNDAY, (Reported) Discontinued Reason: No Longer Taking Entered as Reported by: MENDOZA PEACE on 03/01/22834 Last Action: Discontinued Past Aqtsqbv-Ecrmrc-Ppzzld Hx Patient Social History Drug of Choice: MARIJUANA Smoking Status: Former Smoker (quit 6 yrs ago, former 1ppd for 20 yrs) Type Used: Pipe 2nd Hand Smoke Exposure: No Recent Hopitalizations: No Alcohol Use?: No Substance type: Marijuana (Takes occasionally.) Have you traveled recently?: No Immunizations Up To Date Tetanus Booster (TDap): Less than 5yrs Date of Pneumonia Vaccine: Aug 17, 2015 Date of Influenza Vaccine: Aug 18, 2020 Seasonal Allergies Seasonal Allergies: No Surgeries History of Surgeries: Yes (RIGHT ROTATOR CUFF) Surgeries: Coronary Stent Respiratory History of Respiratory Disorde: Yes Respiratory Disorders: COPD Cardiovascular History of Cardiac Disorders: Yes Cardiac Disorders: Atrial Fibrillation, Coronary Artery Disease, High Cholesterol, Hypertension Neurological History of Neurological Disord: Yes Neurological Disorders: Neuropathy, Paralysis Genitourinary History of Genitourinary Disor: Yes Genitourinary Disorders: Benign Prostatic Hyperpl, Prostate Problems, Neurogenic Bladder Gastrointestinal History of Gastrointestinal Di: No Gastrointestinal Disorders: Chronic Constipation Musculoskeletal History of Musculoskeletal Dis: Yes (neck/back injury 1999 recent anterior neck surgery on 12/11/19) Musculoskeletal Disorders: Degenerate Disk Disease, Chronic Back Pain Endocrine History of Endocrine Disorders: Yes Endocrine Disorders: Diabetes, Non-Insulin dep HEENT History of HEENT Disorders: No Cancer History of Cancer: No Psychosocial History of Psychiatric Problem: Yes Behavioral Health Disorders: Anxiety, Bipolar, Depression Integumentary History of Skin or Integumenta: No Blood Transfusions History of Blood Disorders: No Adverse Reaction to a Blood Tr: No Family Medical History Significant Family History: Heart Disease, Diabetes Family Medial History: Cardiovascular disease G8 SISTER Diabetes mellitus G8 SISTER Review of Systems-General Constitutional: chills, fever, malaise EENTM: dental problems; No epistaxis Respiratory: No cough, No short of breath Cardiovascular: chest pain, Hx of Intervention Gastrointestinal: No abdominal pain, No jaundice, No melena Genitourinary: No dysuria, No hematuria Musculoskeletal: joint pain, joint swelling Psychiatric/Neurological: Anxiety, Depressed, Headache, Seizure Physical Exam-General Problems Physical Exam Vital Signs Vital Signs - First Documented 07/25/22 07/25/22 07/27/22 11:30 20:00 16:05 Temp 36.6 Pulse 104 Resp 16 B/P (MAP) 128/89 (102) Pulse Ox 94 O2 Delivery Room Air O2 Flow Rate 2.00 FiO2 36 Capillary Refill : Less Than 3 Seconds General Appearance: moderate distress (secondary to work of breathing and anxiety), obese Eyes: Bilateral Eye PERRL, Bilateral Eye EOMI HEENT: No scleral icterus (R), No scleral icterus (L); other (abscessed tooth and poor dentition) Neck: supple Respiratory: decreased breath sounds, accessory muscle use, rhonchi Cardiovascular: no murmur, tachycardia Gastrointestinal: non tender, soft, no organomegaly Extremities: no calf tenderness Neurologic/Psychiatric: alert Skin: normal color, warm/dry Data Review Labs Laboratory Tests 07/26/22 22:30: Lactic Acid Level 4.16*H 07/27/22 00:40: Lactic Acid Level 3.96*H 07/27/22 03:55: Lactic Acid Level 3.50*H, White Blood Count 7.7, Red Blood Count 4.33, Hemoglobin 11.2L, Hematocrit 33L, Mean Corpuscular Volume 77L, Mean Corpuscular Hemoglobin 26, Mean Corpuscular Hemoglobin Concent 34, Red Cell Distribution Width 19.5H, Platelet Count 67L, Mean Platelet Volume 9.7, Immature Granulocyte % (Auto) 1, Neutrophils (%) (Auto) 87H, Lymphocytes (%) (Auto) 6L, Monocytes (%) (Auto) 5, Eosinophils (%) (Auto) 1, Basophils (%) (Auto) 0, Neutrophils # (Auto) 6.7, Lymphocytes # (Auto) 0.4L, Monocytes # (Auto) 0.4, Eosinophils # (Auto) 0.1, Basophils # (Auto) 0.0, Immature Granulocyte # (Auto) 0.1, Sodium Level 137, Potassium Level 3.9, Chloride Level 103, Carbon Dioxide Level 17L, Anion Gap 17H, Blood Urea Nitrogen 20H, Creatinine 0.58L, Estimat Glomerular Filtration Rate 113, BUN/Creatinine Ratio 34, Glucose Level 113H, Calcium Level 7.8L, Corrected Calcium 8.9, Total Bilirubin 1.1H, Aspartate Amino Transf (AST/SGOT) 80H, Alanine Aminotransferase (ALT/SGPT) 100H, Alkaline Phosphatase 119, Total Protein 4.5L, Albumin 2.6L 07/27/22 05:35: Glucometer 126H 07/27/22 08:37: Lactic Acid Level 6.34*H, Thyroid Stimulating Hormone (TSH) 0.00L, Free Thyr oxine 2.57H, Total Triiodothyronine 48L, Hepatitis A IgM Antibody Non-Reactive, Hepatitis B Surface Antigen Non-Reactive, Hepatitis B Core IgM Antibody Non- Reactive, Hepatitis C Antibody Non-Reactive 07/27/22 10:35: Glucometer 206H 07/27/22 10:41: Lactic Acid Level 5.82*H 07/27/22 13:28: Lactic Acid Level 5.37*H 07/27/22 15:56: Lactic Acid Level 4.23*H 07/27/22 16:37: Glucometer 103 07/27/22 17:03: Bedside Blood Gas pH (LAB) 7.304*L, Bedside Blood Gas pCO2 (LAB) 51.3H, Bedside Blood Gas pO2 (LAB) 49L, Bedside Blood Gas HCO3 (LAB) 25.5, POC Blood Gas Total CO2 Calc 27, Bedside Bl Gas O2 Saturation (Calc) 80L, Bedside Arterial Blood Base Excess -1 07/27/22 17:06: Lactic Acid Level 3.94*H, White Blood Count 10.0, Red Blood Count 4.51, Hemoglobin 11.7L, Hematocrit 35L, Mean Corpuscular Volume 79L, Mean Corpuscular Hemoglobin 26, Mean Corpuscular Hemoglobin Concent 33, Red Cell Distribution Width 20.1H, Platelet Count 77L, Mean Platelet Volume 10.1, Immature Granulocyte % (Auto) 2, Neutrophils (%) (Auto) 89H, Lymphocytes (%) (Auto) 5L, Monocytes (%) (Auto) 5, Eosinophils (%) (Auto) 0, Basophils (%) (Auto) 0, Neutrophils # (Auto) 8.8H, Lymphocytes # (Auto) 0.5L, Monocytes # (Auto) 0.5, Eosinophils # (Auto) 0.0, Basophils # (Auto) 0.0, Immature Granulocyte # (Auto) 0.2H, Percent Immature Platelet Fraction 4.3, Sodium Level 135, Potassium Level 3.5L, Chloride Level 100, Carbon Dioxide Level 19L, Anion Gap 16H, Blood Urea Nitrogen 19H, Creatinine 0.63, Estimat Glomerular Filtration Rate 110, BUN/Creatinine Ratio 30, Glucose Level 110H, Calcium Level 8.0L, Corrected Calcium 9.1, Total Bilirubin 0.7, Aspartate Amino Transf (AST/SGOT) 122H, Alanine Aminotransferase (ALT/SGPT) 140H, Alkaline Phosphatase 133, B-Type Natriuretic Peptide 130.6H, Total Protein 4.7L, Albumin 2.6L 07/27/22 19:10: Lactic Acid Level 4.14*H 07/27/22 20:25: Sodium Level 138, Potassium Level 3.4L, Chloride Level 102, Carbon Dioxide Level 18L, Anion Gap 18H, Blood Urea Nitrogen 21H, Creatinine 0.73, Estimat Glomerular Filtration Rate 105, BUN/Creatinine Ratio 29, Glucose Level 100, Calcium Level 8.1L, Magnesium Level 1.4L 07/27/22 21:16: Bedside Blood Gas pH (LAB) 7.292*L, Bedside Blood Gas pCO2 (LAB) 43.7, Bedside Blood Gas pO2 (LAB) 43L, Bedside Blood Gas HCO3 (LAB) 21.1L, POC Blood Gas Total CO2 Calc 22L, Bedside Bl Gas O2 Saturation (Calc) 73L, Bedside Arterial Blood Base Excess -5L Microbiology 07/25/22 Blood Culture - Preliminary, Resulted No growth 07/25/22 Urine Culture - Final, Complete Strep, Beta Hemolytic Group B Assessment/Plan Assessment/Plan Assessment/Plan Hypotension Venous Insufficiency Sepsis Plan for central line placement with US guidance; need for IV access and may need central line for pressor support. JACKELIN GREEN DO Jul 27, 2022 22:05
--- NOTE | 2022-07-27 22:09 | Progress Note-Post Operative ---
Post-Operative Progess Note Surgeon (s)/Project Controls Scheduler (s) Surgeon JACKELIN GREEN DO Project Controls Scheduler: none Pre-Operative Diagnosis Hypotension, Venous Insufficiency Post-Operative Diagnosis same Procedure & Operative Findings Date of Procedure 07/27/22 Procedure Performed/Findings Central line placement with US guidance The patient was in their bed in the ICU, was prepped and draped in the sterile fashion. A surgical pause was performed. Ultrasound was used to locate the left internal jugular vein. Once located anesthetic was infiltrated above it. Using an 18 gauge finder needle and watching with the US; the left internal jugular vein was accessed. Dark nonpulsatile blood was withdrawn. The wire was inserted. US assured proper placement. The needle was removed. A [#11] blade scalpel was used to make a stab incision along the guidewire. Dilator sheath was then advanced over the wire using Seldinger technique and the dilator was removed. The Groshong catheter was inserted over the guide wire using the Seldinger technique. The Groshong wire was removed. The catheter was then accessed in all three ports without difficulty. Good flash of blood was seen and it was then flushed with saline. The catheter was sutured in place with 3-0 silk needle. The area was then washed and dried. Sterile dressing was placed over incision. The patient tolerated the procedure well without complication. Anesthesia Type Local lidocaine Estimated Blood Loss Estimated blood loss (mL): scant Specimens/Packing Specimens Removed none JACKELIN GREEN DO Jul 27, 2022 22:09
[2022-07-27] MEDS ORDERED: NS IV 500 ML 500 ML ONE (22:34)
[2022-07-27] MEDS ORDERED: NOREPINEPHRINE 8 MG/250 ML 250 ML IV ONE ×2 (22:34→22:40)
[2022-07-27] MEDS ORDERED: NS IV 500 ML 500 ML IV SCH (22:45)
[2022-07-27] MEDS ORDERED: NS IV 500 ML 500 ML IV ONE (22:45)
[2022-07-27] MEDS ORDERED: POTASSIUM CL 10MEQ/50ML IVPB 100 ML IV ONE (23:25)
[2022-07-27] MEDS ORDERED: MAGNESIUM 1 GM/100 ML IVPB 200 ML IV ONE (23:25)
[2022-07-27] MEDS ORDERED: NS IV 500 ML 500 ML IV PRN (23:30)
[2022-07-27] MEDS: MAGNESIUM 1 GM/100 ML IVPB 100 ML IV SCH (23:31)
[2022-07-27] MEDS: NOREPINEPHRINE 8 MG/250 ML 250 ML IV SCH (23:31)
[2022-07-28] VITALS (32 sets, daily range): BP systolic 50–133; BP diastolic 29–122
[2022-07-28] MEDS: MAGNESIUM 1 GM/100 ML IVPB 100 ML IV SCH (00:26)
[2022-07-28] MEDS: POTASSIUM CL 10MEQ/50ML IVPB 50 ML IV SCH ×4 (00:44→21:05)
[2022-07-28] MEDS: PIPERACILLIN SODIUM/TAZOBACTAM 4.5 GM in NS (IVPB) 100 ML IV SCH ×3 (00:45→17:41)
[2022-07-28] MEDS: RT-ALBUTEROL/IPRATROPIUM 3 ML (DUONEB) VIAL INH SCH ×5 (02:31→22:36)
[2022-07-28] MEDS ORDERED: AMIODARONE (Pyxis Kit Only) BOLUS 150 MG/3 ML IV ONE (03:11)
[2022-07-28] MEDS ORDERED: AMIODARONE (Pyxis Kit Only) DRIP 450 MG/9 ML VIAL IV ONE (03:11)
[2022-07-28] MEDS ORDERED: D5W IV SOLUTION (EXCEL) 250 ML IV ONE (03:12)
[2022-07-28] MEDS ORDERED: D5W 100 ML IVPB 0 ML IV ONE (03:12)
[2022-07-28] MEDS ORDERED: AMIODARONE FOR BOLUS 150 MG in NS (IVPB) 100 ML IV SCH (03:12)
[2022-07-28] MEDS ORDERED: NORMAL SALINE 250 ML ONE (03:23)
[2022-07-28] MEDS ORDERED: NS (IVPB) 100 ML ONE (03:23)
[2022-07-28] MEDS: AMIODARONE INJECTION 450 MG in NORMAL SALINE 250 ML IV SCH ×2 (03:37→11:35)
[2022-07-28 04:04] LABS: HEMOGLOBIN 11.8 g/dL (13.3-17.7); MONOCYTES # (AUTO) 0.5 10^3/uL (0.0-1.0)
[2022-07-28 04:06] LABS: BASOPHILS % (AUTO) 0 % (0-10); EOSINOPHILS % (AUTO) 0 % (0-10); HEMATOCRIT 36 % (40-54); LYMPHOCYTES # (AUTO) 0.3 10^3/uL (1.0-4.0); LYMPHOCYTES % (AUTO) 2 % (12-44); MEAN CORPUSCULAR HEMOGLOBIN 26 pg (25-34); MEAN CORPUSCULAR HGB CONC 33 g/dL (32-36); MEAN CORPUSCULAR VOLUME 80 fL (80-99); MEAN PLATELET VOLUME 9.8 fL (9.0-12.2); MONOCYTES % (AUTO) 4 % (0-12); NEUTROPHILS # (AUTO) 11.6 10^3/uL (1.8-7.8); NEUTROPHILS % (AUTO) 91 % (42-75); PLATELET COUNT 80 10^3/uL (130-400); WHITE BLOOD COUNT 12.8 10^3/uL (4.3-11.0)
[2022-07-28 04:24] LABS: ALBUMIN 2.6 GM/DL (3.2-4.5); BILIRUBIN,DIRECT 0.7 MG/DL (0.0-0.3); BILIRUBIN,INDIRECT 0.1 MG/DL; BILIRUBIN,TOTAL 0.8 MG/DL (0.1-1.0); CREATININE SERUM 0.81 MG/DL (0.60-1.30); POTASSIUM 3.8 MMOL/L (3.6-5.0)
[2022-07-28 04:59] LABS: MAGNESIUM 1.9 MG/DL (1.6-2.4); PHOSPHORUS 3.3 MG/DL (2.3-4.7)
[2022-07-28] MEDS: inSUlin ASPART (NovoLOG) 1 UNIT/0.01 ML (CHARGE PER UNIT) SC SCH ×4 (05:00→18:00)
[2022-07-28] MEDS ORDERED: POTASSIUM CL 10MEQ/50ML IVPB 50 ML IV SCH (06:00)
[2022-07-28] MEDS ORDERED: MAGNESIUM 1 GM/100 ML IVPB 100 ML IV SCH (06:00)
[2022-07-28] MEDS ORDERED: KCL 20 MEQ TAB (K-DUR) PO SCH (06:00)
[2022-07-28] MEDS: VANCOMYCIN 1500 MG/NS 500 ML IVPB IV SCH ×4 (06:23→21:38)
[2022-07-28] MEDS: SERTRALINE 100 MG (ZOLOFT) TAB PO SCH (08:23)
[2022-07-28] MEDS: ASPIRIN E.C. 81 MG (ECOTRIN) TAB PO SCH (08:24)
[2022-07-28] MEDS: DIVALPROEX 250 MG DELAYED RELEASE (DEPAKOTE) TAB PO SCH (08:24)
[2022-07-28] MEDS: PREGABALIN 150 MG (LYRICA) CAPSULE PO SCH ×2 (08:24→13:02)
--- NOTE | 2022-07-28 08:28 | Speech Therapy Progress Note ---
Therapy Progress Note Speech pathology completed a chart review on this date, as the patient has a scheduled modified barium swallow evaluation at 1215. Per chart review, it appears the patient was transferred to ICU due to a medical decline. Secondary to transfer to higher level of care, speech pathology will require a new consultation order when the patient is appropriate. The clinician attempted to contact ICU to discuss the patient with his RN at 0826. No answer was obtained. At the earliest, the clinician will be able to re- evaluate the patient at 1130. As prior recommendations state, if the patient displays concerns for s/s of suspected aspiration with P.O. intake, the patient should be made N.P.O. The clinician will continue contact attempts with the patient's RN. ABBY GIBBS Jul 28, 2022 08:28
--- NOTE | 2022-07-28 08:33 | Speech Therapy Progress Note ---
Therapy Progress Note The clinician was able to discuss the patient with the patient's RN at 0830. At this time, the patient is not stable or appropriate to complete a modified barium swallow on this date. The RN stated he is consuming small sips and the patient's is currently feeding him appropriately without the presence of s/s of suspected aspiration. The clinician explained due to the increased level of care, a new consult would be needed for continued speech pathology services if needed/appropriate. The RN verbalized comprehension of the discussion. ABBY GIBBS Jul 28, 2022 08:33
[2022-07-28] MEDS: VRAYLAR 1.5 MG CAPSULE PO SCH (09:00)
[2022-07-28] MEDS ORDERED: PANTOPRAZOLE 40 MG (PROTONIX) VIAL IV SCH (09:00)
[2022-07-28] MEDS: FLUTICASONE NASAL SPRAY (FLONASE) 16 GM BTL NS SCH (09:00)
[2022-07-28] MEDS: BUPRENORPHINE SL SCH ×2 (09:00→13:00)
[2022-07-28] MEDS: meTOprolol TARTRATE 25 MG (LOPRESSOR) TABLET PO SCH (09:00)
[2022-07-28] MEDS ORDERED: DIGOXIN 0.25 MG/ML (LANOXIN) 2 ML AMP IV ONE ×2 (09:00→12:00)
--- NOTE | 2022-07-28 09:01 | Tele-ICU Progress Note ---
Subjective Date Seen by a Provider: Jul 28, 2022 Subjective/Events-last exam This virtual visit was conducted using real time audio/video. Thank you for asking us to see this patient for respiratory insufficiency due to AECOPD. Also urosepsis, sacral decub. NSVT, EF 40%. Recent events: Developed afib/RVR overnight. Off BiPAP and on 7 L NC. PE: HR 140 afib. O2 sat 95% on 7L NC HEENT: No obvious masses, adenopathy or JVD. Chest: clear to auscultation. Diminished. CV: Irreg. S1 S2 No murmur or added sounds. Abd: Non-tender. Bowel sounds Y. : Unremarkable. Zimmerman Y. PARTY HOST/HOSTESS/psychiatric: Grossly intact. No obvious focal findings. Extremities: 1-2+ edema. Capillary refill < 3 seconds. Skin: unremarkable. Results: Elevated WCC 12.8, BUN24, Lact. 10.13. Decreased Hb 11.8, Plts 80K. B.242/34.4/130 on BiP. CXR:B int infilts., hyperinflated.. Available chart/ vitals / labs / images reviewed. Video assessment done using teleICU camera, rest of exam as per RN. A/P: Respiratory insufficiency: Continue present management with HFNC 7 LPM, Incruse, Airduo, Duonebs. Monitor for increasing oxygenation needs and/or need for intubation. Critical Care: critically ill patient. Cont. Levo., abx, Duglas., PPI, SSI, amiod., statin, Lyrica, Zoloft. To start Dig and possibly Cardizem. Discussed with DORIS Baig. Asked RN to reach out to eICU if any questions or concerns later. Time spent with patient/coordination of care with other health professionals (mins):22 Sepsis Event Evaluation Height, Weight, BMI Height: 5'8.00" Weight: 255lbs. oz. 115.079657uc; 32.13 BMI Method:Stated Focused Exam Lactate Level 07/28/22 00:31: Lactic Acid Level 10.13*H 07/28/22 03:56: Lactic Acid Level 12.08*H 07/28/22 08:35: Lactic Acid Level Laboratory Tests Test 07/28/22 08:35 Exam Exam Patient acknowledged, consented, and participated in this virtual visit which was conducted using real time audio/video Vital Signs Date Time Temp Pulse Resp B/P (MAP) Pulse Ox O2 Delivery O2 Flow Rate FiO2 07/28/22 08:00 140 25 99/71 (80) 97 NIV Bilevel 35.00 07/28/22 07:25 152 28 98 35.00 07/28/22 07:20 133 29 98 35.00 07/28/22 07:00 103 18 104/66 (79) 98 NIV Bilevel 35.00 07/28/22 07:00 116 07/28/22 06:00 104 12 103/57 (72) 97 NIV Bilevel 35.00 07/28/22 05:00 133 14 97/58 (71) 99 NIV Bilevel 35.00 07/28/22 04:00 98 NIV Bilevel 40 07/28/22 04:00 115 13 95/56 (69) 99 NIV Bilevel 35.00 07/28/22 03:36 115 99/56 07/28/22 03:00 123 13 96/59 (71) 99 NIV Bilevel 35.00 07/28/22 02:28 115 24 98 35.00 07/28/22 02:00 122 15 99/56 (70) 99 NIV Bilevel 35.00 07/28/22 01:00 105 07/28/22 01:00 105 21 104/58 (73) 99 NIV Bilevel 35.00 07/28/22 00:00 111 17 85/51 (62) 98 NIV Bilevel 35.00 07/27/22 23:59 98 NIV Bilevel 40 07/27/22 23:31 82 87/55 07/27/22 23:00 88 14 76/42 (53) 98 NIV Bilevel 35.00 07/27/22 22:34 35.00 07/27/22 22:29 82 24 98 40.00 07/27/22 22:00 87 22 87/55 (66) 96 NIV Bilevel 40.00 07/27/22 21:00 80 17 80/52 (61) 99 NIV Bilevel 40.00 07/27/22 20:00 98 NIV Bilevel 40 07/27/22 20:00 98 18 88/58 (68) 98 NIV Bilevel 40.00 07/27/22 19:51 07/27/22 19:33 36.5 NIV Bilevel 40.00 07/27/22 19:00 76 07/27/22 19:00 76 17 95/56 (69) 98 NIV Bilevel 40.00 07/27/22 18:50 75 15 98 40.00 07/27/22 18:00 70 21 98/64 (75) 97 NIV Bilevel 40.00 07/27/22 17:42 NIV Bilevel 40.00 07/27/22 17:20 69 31 90/58 (69) 94 NIV Bilevel 35.00 07/27/22 17:18 NIV Bilevel 35.00 07/27/22 17:15 70 25 94 35.00 07/27/22 16:05 37.2 78 97 36 07/27/22 16:00 36.4 78 18 98/63 (75) 97 Nasal Cannula 5.00 07/27/22 13:00 75 07/27/22 11:54 37.2 78 18 123/49 (73) 97 Nasal Cannula 4.00 07/27/22 09:00 93 Nasal Cannula 4.00 I & O 07/28/22 07:00 Intake Total 950 ml Output Total 2500 ml Balance -1550 ml Height & Weight Height: 5'8.00" Weight: 255lbs. oz. 115.445639fj; 32.13 BMI Method:Stated General Appearance: Chronically ill, Mild Distress, Obese, Other HEENT: PERRL/EOMI, Pharynx Normal (Small grayish ulcerated lesion on the right upper gums healing without purulence, induration or erythema), Moist Mucous Membranes Neck: Full Range of Motion, Normal Inspection Respiratory: Chest Non Tender, Crackles (on inspiration and expiration) Cardiovascular: Irregularly Irregular Capillary Refill: Less Than 3 Seconds Gastrointestinal: non tender, soft, no organomegaly Extremity: Normal Capillary Refill, No Calf Tenderness, Pedal Edema (2+ bipedal edema without erythema or induration) Neurologic/Psychiatric: Alert, Oriented x3, No Motor/Sensory Deficits Skin: Normal Color, Warm/Dry Lymphatic: No Adenopathy Results Lab Laboratory Tests 07/26/22 11:40 07/26/22 16:15 07/27/22 03:55 07/27/22 17:06 07/27/22 20:25 07/28/22 03:56 Assessment/Plan Assessment/Plan See free text Critical Care: Critically Ill Patient JOHN HAY MD Jul 28, 2022 09:01
--- NOTE | 2022-07-28 09:11 | Progress Note ---
BARTSADAFMICKIABDIAS 07/28/22 0911: Subjective Subjective/Events-last exam Porfirio is a 56 y male with a pmh of COPD, bipolar II, T2DM, afib, CHF, with hx of CO who is being treated for septic UTI, COPD Exacerbtion, Respiratory insuffieciency. Today he is being seen in the ICU. He is upright in bed responding to questions. He is off of Bipap and is about to eat breakfast. His family is in the room with him. He states he has continued SOB and cough but is staying positive in conversation this morning. Focused Exam Sepsis Stage: Septic Shock Possible Source: Genitouriary Lactate Level 07/28/22 00:31: Lactic Acid Level 10.13*H 07/28/22 03:56: Lactic Acid Level 12.08*H 07/28/22 08:35: Respiratory: Crackles, Rales (bilateral lung bases) Cardiovascular: Irregularly Irregular Skin: normal color, warm/dry Lactic Acid Level Laboratory Tests Test 07/28/22 08:35 Objective Exam Last Set of Vital Signs Vital Signs Date Time Temp Pulse Resp B/P (MAP) Pulse Ox O2 Delivery O2 Flow Rate FiO2 07/28/22 08:00 140 25 99/71 (80) 97 NIV Bilevel 35.00 07/28/22 04:00 40 07/27/22 19:33 36.5 Capillary Refill : Less Than 3 Seconds I&O Intake and Output 07/27/22 23:59 Intake Total 1300 ml Output Total 2550 ml Balance -1250 ml Intake Oral 1000 ml IV Total 300 ml Output Urine Total 2550 ml # Voids 2 General: Alert, Oriented X3, Cooperative HEENT: Atraumatic, EOMI Neck: Supple (Left IJ) Lungs: Other (crackles and rales bilateral bases) Heart: Other (irregularly irregular, tachycardic) Abdomen: Normal Bowel Sounds, Soft, No Tenderness Extremities: No Clubbing, No Cyanosis Skin: No Rashes, No Significant Lesion Neuro: Normal Speech Psych/Mental Status: Mental Status NL, Mood NL Results/Procedures Lab Laboratory Tests 07/27/22 10:35: Glucometer 206H 07/27/22 10:41: Lactic Acid Level 5.82*H 07/27/22 13:28: Lactic Acid Level 5.37*H 07/27/22 15:56: Lactic Acid Level 4.23*H 07/27/22 16:37: Glucometer 103 07/27/22 17:03: Bedside Blood Gas pH (LAB) 7.304*L, Bedside Blood Gas pCO2 (LAB) 51.3H, Bedside Blood Gas pO2 (LAB) 49L, Bedside Blood Gas HCO3 (LAB) 25.5, POC Blood Gas Total CO2 Calc 27, Bedside Bl Gas O2 Saturation (Calc) 80L, Bedside Arterial Blood Base Excess -1 07/27/22 17:06: White Blood Count 10.0, Red Blood Count 4.51, Hemoglobin 11.7L, Hematocrit 35L, Mean Corpuscular Volume 79L, Mean Corpuscular Hemoglobin 26, Mean Corpuscular Hemoglobin Concent 33, Red Cell Distribution Width 20.1H, Platelet Count 77L, Mean Platelet Volume 10.1, Immature Granulocyte % (Auto) 2, Neutrophils (%) (A uto) 89H, Lymphocytes (%) (Auto) 5L, Monocytes (%) (Auto) 5, Eosinophils (%) (Auto) 0, Basophils (%) (Auto) 0, Neutrophils # (Auto) 8.8H, Lymphocytes # (Auto) 0.5L, Monocytes # (Auto) 0.5, Eosinophils # (Auto) 0.0, Basophils # (Auto) 0.0, Immature Granulocyte # (Auto) 0.2H, Percent Immature Platelet Fraction 4.3, Sodium Level 135, Potassium Level 3.5L, Chloride Level 100, Carbon Dioxide Level 19L, Anion Gap 16H, Blood Urea Nitrogen 19H, Creatinine 0.63, Virginie mat Glomerular Filtration Rate 110, BUN/Creatinine Ratio 30, Glucose Level 110H, Lactic Acid Level 3.94*H, Calcium Level 8.0L, Corrected Calcium 9.1, Total Bilirubin 0.7, Aspartate Amino Transf (AST/SGOT) 122H, Alanine Aminotransferase (ALT/SGPT) 140H, Alkaline Phosphatase 133, B-Type Natriuretic Peptide 130.6H, Total Protein 4.7L, Albumin 2.6L 07/27/22 19:10: Lactic Acid Level 4.14*H 07/27/22 20:25: Sodium Level 138, Potassium Level 3.4L, Chloride Level 102, Carbon Dioxide Level 18L, Anion Gap 18H, Blood Urea Nitrogen 21H, Creatinine 0.73, Estimat Glomerular Filtration Rate 105, BUN/Creatinine Ratio 29, Glucose Level 100, Calcium Level 8.1L, Magnesium Level 1.4L 07/27/22 21:16: Bedside Blood Gas pH (LAB) 7.292*L, Bedside Blood Gas pCO2 (LAB) 43.7, Bedside Blood Gas pO2 (LAB) 43L, Bedside Blood Gas HCO3 (LAB) 21.1L, POC Blood Gas Total CO2 Calc 22L, Bedside Bl Gas O2 Saturation (Calc) 73L, Bedside Arterial Blood Base Excess -5L 07/27/22 21:58: Lactic Acid Level 8.69*H 07/27/22 22:28: Bedside Blood Gas pH (LAB) 7.292*L, Bedside Blood Gas pCO2 (LAB) 34.4L, Bedside Blood Gas pO2 (LAB) 130H, Bedside Blood Gas HCO3 (LAB) 16.6*L, POC Blood Gas Total CO2 Calc 18L, Bedside Bl Gas O2 Saturation (Calc) 99H, Bedside Arterial Blood Base Excess -10L 07/28/22 00:16: Glucometer 109 07/28/22 00:31: Lactic Acid Level 10.13*H 07/28/22 03:56: Lactic Acid Level 12.08*H, White Blood Count 12.8H, Red Blood Count 4.55, Hemoglobin 11.8L, Hematocrit 36L, Mean Corpuscular Volume 80, Mean Corpuscular Hemoglobin 26, Mean Corpuscular Hemoglobin Concent 33, Red Cell Distribution Width 20.4H, Platelet Count 80L, Mean Platelet Volume 9.8, Immature Granulocyte % (Auto) 3, Neutrophils (%) (Auto) 91H, Lymphocytes (%) (Auto) 2L, Monocytes (%) (Auto) 4, Eosinophils (%) (Auto) 0, Basophils (%) (Auto) 0, Neutrophils # (Auto) 11.6H, Lymphocytes # (Auto) 0.3L, Monocytes # (Auto) 0.5, Eosinophils # (Auto) 0.0, Basophils # (Auto) 0.0, Immature Granulocyte # (Auto) 0.4H, Percent Immature Platelet Fraction 3.6, Sodium Level 140, Potassium Level 3.8, Chloride Level 103, Carbon Dioxide Level 10L, Anion Gap 27H, Blood Urea Nitrogen 24H, Cr eatinine 0.81, Estimat Glomerular Filtration Rate 102, BUN/Creatinine Ratio 30, Glucose Level 99, Calcium Level 8.0L, Corrected Calcium 9.1, Phosphorus Level 3.3, Magnesium Level 1.9, Total Bilirubin 0.8, Direct Bilirubin 0.7H, Indirect Bilirubin 0.1, Aspartate Amino Transf (AST/SGOT) 134H, Alanine Aminotransferase (ALT/SGPT) 160H, Alkaline Phosphatase 140H, Troponin I 0.032H, Total Protein 5.0L, Albumin 2.6L 07/28/22 08:35: Microbiology 07/25/22 Blood Culture - Preliminary, Resulted No growth 07/25/22 Urine Culture - Final, Complete Strep, Beta Hemolytic Group B Assessment/Plan Assessment/Plan Assessment & Plan 1. Acute Respiratory Insufficiency - Currently off BIPAP - Continue present management with HFNC 7 LPM, Tanja Godoy Duonebs. - Monitor for increasing oxygenation needs and/or need for intubation. - CXR shows diffuse bilateral infiltrates - ABG confirmed acidosis - Continue Levofed, Tachy ,systolic in 90s - Central line placed by surgery - Tanja Spicer 3. Sepsis likely due to UTI - Continue Cefazolin - WBC 12.8 - Vanc and Pip-Tazo started - Blood cultures no growth - Lactic Acid climbing back up - Zofran for nausea as needed 4. Afib - run of Afib last night, started on Amiodarone - Digoxin, Crit Care considering Cardizem - Echo done, EF 45-50% w/ physiologic Pulm Regurg - Consider anticoagulants inpatient pending Liver studies. - EKG 07/28 shows Afib, possible anterolateral ischemia, Troponin 0.032, continue to trend - Appreciate Critial Care assistance. 5. Hypochloremic, hypokalemic metabolic acidosis likely due to dehydration vs infection - Lactic Acidosis contributing - Cr, K+ and Cl- wnl today 6. Lactic Acidosis - Likely due to septic infection 7. Elevated Liver Enzymes - Hepatitis panel neg - AST, ALT, Alk Phos elevated - Liver u/s unremarkable - Fibrinogen and D-dimer wnl - PT and PTT elevated, INR 1.3. 8. Sacral Ulcer - Wound Care recommends daily dressing changes - Appreciate their assistance. 9. Primary Hyperthyroidism - TSH 0.00, T4 2.57, T3 low - Check Thyrotropin receptor Ab - Consider RAIU to determine etiology if Ab neg. 10. Dysphagia - Barium swallow not ordered due to tolerating feedings. - Continue to monitor for signs and symptoms of aspiration. 11. Chronic Pain - Continue home buprinorphine 12. T2DM - Home medications. - hold metformin as it is possibly contributing to lactic acidosis 13. CHF - Continue home medications as appropriate. - Lasix given yesterday morning. JACIEL ROLDAN MD 07/28/22 1437: Subjective Subjective/Events-last exam At time of my exam at 0945, patient was back on bipap and agitated, restless in bed, pulling at bipap in spite of receiving 2 mg of ativan per [facility] ICU physician orders. Objective Exam General: Alert, Moderate Distress (appears agitated, restless, not answering meaningfully) Lungs: Other (crackles and rales bilateral bases) Heart: Other (irregularly irregular, tachycardic) Abdomen: Normal Bowel Sounds, Soft Neuro: Other (agitated, alert but not interacting appropriately) Assessment/Plan Assessment/Plan Assessment & Plan Pt with acute worsening yesterday late afternoon, transferred to ICU, but overnight continued to have worsening lactic acidosis and tachycardia and hypotension. On norepinephrine and amiodarone drip with minimal improvement, now agitated. Acidosis appears metabolic, no hypercapnia, but given his marked agitation in spite of ativan and his respiratory distress, discussed with family and will proceed with intubation so we can try to sedate more comfortably and hopefully be able to manage heart rate and blood pressure better that way as well. Started hydrocortisone for persistent hypotension and in case of COPD exacerbation contribution. Also giving 2 amps of bicarb for severe metabolic acidosis. Antibiotics broadened last night but lactic acid worsened, remains in apparent septic shock, but only source found has been GBS in urine which has been covered since admission. Receiving more lasix this am for suspected worsened pulmonary edema, appreciate [facility] ICU and Cardiology recommendations. Liver enzymes continue to increase, at this time may be related to shock/hypotension, hepatitis panel neg and liver US okay, lipase and amylase were normal earlier this admission. Discussed his thyroid labs with Dr. Jameson and he does not suspect thyrotoxicosis. Updated family on critical condition and they express understanding, but remain hopeful that he will improve. Supervisory-Addendum Brief Verification & Attestation Participated in pt care: history, MDM, physical Personally performed: exam, history, MDM, supervision of care Care discussed with: Medical Student Procedures: n/a I personally saw and examined patient, see my notes for updated exam and assessment/plan later in the morning after student's initial exam. MAYRA GEIGER Jul 28, 2022 09:11 JACIEL ROLDAN MD Jul 28, 2022 14:37
[2022-07-28] MEDS: CLOTRIMAZOLE 1% CREAM (LOTRIMIN) 30 GM TOP SCH (09:17)
[2022-07-28] MEDS ORDERED: LORazepam INJ 2 MG/ML (ATIVAN) VIAL ONE (09:38)
[2022-07-28] MEDS ORDERED: LORazepam INJ 2 MG/ML (ATIVAN) VIAL IVP PRN (09:45)
[2022-07-28] MEDS: UMECLIDINIUM BROMIDE (INCRUSE ELLIPTA) 7'S IH SCH (09:53)
[2022-07-28] MEDS ORDERED: FUROSEMIDE 40 MG/4 ML INJ (LASIX) ONE (10:01)
[2022-07-28 10:04] LABS: ABG PCO2 45 MMHG (35-45); ABG PO2 48 MMHG (79-93)
[2022-07-28 10:08] LABS: ALLENS TEST YES-POS; INSPIRED O2 35%; PATIENT TEMP 37.8; VENTILATOR NO
[2022-07-28 10:13] LABS: ABG PH 6.98 (7.37-7.43)
[2022-07-28 10:14] LABS: ABG OXYGEN SATURATION 62 % (94-100)
[2022-07-28] MEDS ORDERED: FUROSEMIDE 40 MG/4 ML INJ (LASIX) IVP ONE (10:15)
[2022-07-28] MEDS: VASOPRESSIN INJECTION 20 UNIT in NS (IVPB) 100 ML IV SCH ×2 (10:23→18:36)
[2022-07-28] MEDS ORDERED: SODIUM BICARB 8.4% 50 MEQ/50 ML (ABBOTT) SYR ONE ×3 (10:28→20:31)
[2022-07-28] MEDS ORDERED: SODIUM BICARB 8.4% 50 MEQ/50 ML (ABBOTT) SYR IV ONE ×2 (10:30→19:45)
[2022-07-28] MEDS ORDERED: fentaNYL DRIP PRE-MIX 250 ML IV SCH (10:30)
--- NOTE | 2022-07-28 10:56 | Progress Note - Cardiology ---
Cardiology SOAP Progress Note Subjective: Acute resp distress Unable to provide any information from pt Objective: I&O/Vital Signs 07/28/22 07/28/22 07/28/22 07/28/22 03:00 03:36 04:00 04:00 Pulse 123 115 115 Resp 13 13 B/P (MAP) 96/59 (71) 99/56 95/56 (69) Pulse Ox 99 99 98 O2 Delivery NIV Bilevel NIV Bilevel NIV Bilevel O2 Flow Rate 35.00 35.00 FiO2 40 07/28/22 07/28/22 07/28/22 07/28/22 05:00 06:00 07:00 07:00 Pulse 133 104 116 103 Resp 14 12 18 B/P (MAP) 97/58 (71) 103/57 (72) 104/66 (79) Pulse Ox 99 97 98 O2 Delivery NIV Bilevel NIV Bilevel NIV Bilevel O2 Flow Rate 35.00 35.00 35.00 07/28/22 07/28/22 07/28/22 07/28/22 07:20 07:25 08:00 08:00 Pulse 133 152 140 Resp 29 28 25 B/P (MAP) 99/71 (80) Pulse Ox 98 98 97 98 O2 Delivery NIV Bilevel NIV Bilevel O2 Flow Rate 35.00 35.00 35.00 FiO2 35 07/28/22 07/28/22 07/28/22 07/28/22 09:00 09:40 09:53 10:00 Pulse 118 152 137 Resp 27 32 33 B/P (MAP) 77/58 (64) 92/74 (80) Pulse Ox 94 100 96 O2 Delivery NIV Bilevel NIV Bilevel NIV Bilevel O2 Flow Rate 35.00 45.00 35.00 45.00 07/28/22 07/28/22 07/28/22 07/28/22 10:23 11:00 11:04 11:19 Pulse 152 121 129 129 Resp 26 22 B/P (MAP) 92/74 91/49 (63) 89/57 Pulse Ox 97 94 O2 Delivery Mechanical Ventilator O2 Flow Rate 45.00 FiO2 45 07/28/22 07/28/22 07/28/22 07/28/22 11:20 12:00 12:00 12:13 Pulse 129 137 129 Resp 22 B/P (MAP) 89/57 86/58 (67) 89/57 Pulse Ox 95 98 O2 Delivery Mechanical Ventilator Mechanical Ventilator O2 Flow Rate 45.00 FiO2 45 07/28/22 07/28/22 07/28/22 07/28/22 13:00 13:00 13:41 14:00 Pulse 135 137 128 123 Resp 21 23 23 B/P (MAP) 78/61 (67) 87/48 (61) Pulse Ox 94 95 94 O2 Delivery Mechanical Ventilator Mechanical Ventilator O2 Flow Rate 45.00 45.00 FiO2 45 07/28/22 00:00 Intake Total 700 ml Output Total 2200 ml Balance -1500 ml Weight (Pounds): 255 Weight (Calculated Kilograms): [id number] Constitutional: apparent distress, well-nourished Respiratory: accessory muscle use, respiratory distress, chest expansion is symmetric, chest is bilaterally symmetric Cardiovascular: irregularly irregular, tachycardia, S1 and S2 Gastrointestional: round, audible bowel sounds Neurologic/Psychiatric: other (d/t resp distress unable to cooperate with neuro exam; moves all extremities) Skin: No rash on exposed areas, No ulcerations on exposed areas Results/Procedures: Labs Laboratory Tests 07/27/22 15:56: Lactic Acid Level 4.23*H 07/27/22 16:37: Glucometer 103 07/27/22 17:03: Bedside Blood Gas pH (LAB) 7.304*L, Bedside Blood Gas pCO2 (LAB) 51.3H, Bedside Blood Gas pO2 (LAB) 49L, Bedside Blood Gas HCO3 (LAB) 25.5, POC Blood Gas Total CO2 Calc 27, Bedside Bl Gas O2 Saturation (Calc) 80L, Bedside Arterial Blood Base Excess -1 07/27/22 17:06: Lactic Acid Level 3.94*H, White Blood Count 10.0, Red Blood Count 4.51, Hemoglobin 11.7L, Hematocrit 35L, Mean Corpuscular Volume 79L, Mean Corpuscular Hemoglobin 26, Mean Corpuscular Hemoglobin Concent 33, Red Cell Distribution Width 20.1H, Platelet Count 77L, Mean Platelet Volume 10.1, Immature Granulocyte % (Auto) 2, Neutrophils (%) (Auto) 89H, Lymphocytes (%) (Auto) 5L, Monocytes (%) (Auto) 5, Eosinophils (%) (Auto) 0, Basophils (%) (Auto) 0, Neutrophils # (Auto) 8.8H, Lymphocytes # (Auto) 0.5L, Monocytes # (Auto) 0.5, Eosinophils # (Auto) 0.0, Basophils # (Auto) 0.0, Immature Granulocyte # (Auto) 0.2H, Percent Immature Platelet Fraction 4.3, Sodium Level 135, Potassium Level 3.5L, Chloride Level 100, Carbon Dioxide Level 19L, Anion Gap 16H, Blood Urea Nitrogen 19H, Creatinine 0.63, Estimat Glomerular Filtration Rate 110, BUN/Creatinine Ratio 30, Glucose Level 110H, Calcium Level 8.0L, Corrected Calcium 9.1, Total Bilirubin 0.7, Aspartate Amino Transf (AST/SGOT) 122H, Alanine Aminotransferase (ALT/SGPT) 140H, Alkaline Phosphatase 133, B-Type Natriuretic Peptide 130.6H, Total Protein 4.7L, Albumin 2.6L 07/27/22 19:10: Lactic Acid Level 4.14*H 07/27/22 20:25: Sodium Level 138, Potassium Level 3.4L, Chloride Level 102, Carbon Dioxide Level 18L, Anion Gap 18H, Blood Urea Nitrogen 21H, Creatinine 0.73, Estimat Glomerular Filtration Rate 105, BUN/Creatinine Ratio 29, Glucose Level 100, Calcium Level 8.1L, Magnesium Level 1.4L 07/27/22 21:16: Bedside Blood Gas pH (LAB) 7.292*L, Bedside Blood Gas pCO2 (LAB) 43.7, Bedside Blood Gas pO2 (LAB) 43L, Bedside Blood Gas HCO3 (LAB) 21.1L, POC Blood Gas Total CO2 Calc 22L, Bedside Bl Gas O2 Saturation (Calc) 73L, Bedside Arterial Blood Base Excess -5L 07/27/22 21:58: Lactic Acid Level 8.69*H 07/27/22 22:28: Bedside Blood Gas pH (LAB) 7.292*L, Bedside Blood Gas pCO2 (LAB) 34.4L, Bedside Blood Gas pO2 (LAB) 130H, Bedside Blood Gas HCO3 (LAB) 16.6*L, POC Blood Gas Total CO2 Calc 18L, Bedside Bl Gas O2 Saturation (Calc) 99H, Bedside Arterial Blood Base Excess -10L 07/28/22 00:16: Glucometer 109 07/28/22 00:31: Lactic Acid Level 10.13*H 07/28/22 03:56: Lactic Acid Level 12.08*H, White Blood Count 12.8H, Red Blood Count 4.55, Hemoglobin 11.8L, Hematocrit 36L, Mean Corpuscular Volume 80, Mean Corpuscular Hemoglobin 26, Mean Corpuscular Hemoglobin Concent 33, Red Cell Distribution Width 20.4H, Platelet Count 80L, Mean Platelet Volume 9.8, Immature Granulocyte % (Auto) 3, Neutrophils (%) (Auto) 91H, Lymphocytes (%) (Auto) 2L, Monocytes (%) (Auto) 4, Eosinophils (%) (Auto) 0, Basophils (%) (Auto) 0, Neutrophils # (Auto) 11.6H, Lymphocytes # (Auto) 0.3L, Monocytes # (Auto) 0.5, Eosinophils # (Auto) 0.0, Basophils # (Auto) 0.0, Immature Granulocyte # (Auto) 0.4H, Percent Immature Platelet Fraction 3.6, Sodium Level 140, Potassium Level 3.8, Chloride Level 103, Carbon Dioxide Level 10L, Anion Gap 27H, Blood Urea Nitrogen 24H, Creatinine 0.81, Estimat Glomerular Filtration Rate 102, BUN/Creatinine Ratio 30, Glucose Level 99, Calcium Level 8.0L, Corrected Calcium 9.1, Phosphorus Level 3.3, Magnesium Level 1.9, Total Bilirubin 0.8, Direct Bilirubin 0.7H, Indirect Bilirubin 0.1, Aspartate Amino Transf (AST/SGOT) 134H, Alanine Aminotransferase (ALT/SGPT) 160H, Alkaline Phosphatase 140H, Troponin I 0.032H, Total Protein 5.0L, Albumin 2.6L 07/28/22 08:35: Lactic Acid Level 14.58*H 07/28/22 09:32: Blood Gas Puncture Site R WRIST, Blood Gas Patient Temperature 37.8, Arterial Blood pH 6.98*L, Arterial Blood Partial Pressure CO2 45, Arterial Blood Partial Pressure O2 48L, Arterial Blood HCO3 , Arterial Blood Total CO2 , Arterial Blood Oxygen Saturation 62L, Arterial Blood Base Excess , Balwinder Test YES-POS, Blood Gas Ventilator Setting NO, Blood Gas Inspired Oxygen 35% 07/28/22 11:25: Lactic Acid Level 15.09*H, Triglycerides Level 774H 07/28/22 11:28: Microbiology 07/25/22 Blood Culture - Preliminary, Resulted No growth 07/25/22 Urine Culture - Final, Complete Strep, Beta Hemolytic Group B A/P: Assessment: Acute resp failure - requiring intubation; unable to tolerate Bi-pap Metabolic acidosis, lactic acidosis - Unknown underlying cause - Possible occult sepsis versus dehydration - Questionable underlying gastroenteritis. - Managed by primary care physician Sepsis - undetermined etiology - management per medical services/eICU Hyperthyroidism - management per medical services Elevated liver enzymes of undetermined etiology - possible secondary to hepato-biliary congestion d/t CHF Paroxysmal atrial fibrillation/flutter - currently with RVR - patient underwent atrial flutter ablation in May [address] Juarez. - He has been off oral anticoagulation as an outpatient. It was restarted on this admission Intermittent sinus tachycardia - patient had a short run of nonsustained ventricular tachycardia. - Amiodarone gtt Congestive heart failure - acute on chronic left ventricular systolic dysfunction Ischemic cardiomyopathy - ejection fraction 45 to 50% Sacral decubitus ulcer, managed by medical team. Coronary artery disease - history of multiple cardiac catheterization multiple interventions in the past, - Cardiac catheterization done in [facility] in November 2019 and reported that he did not require any stenting. - Cardiac catheterization done February 16, 2021 with severe stenosis in the prox right coronary artery with successful primary stenting using Marcia 3.5 x 18mm overlapping with an old stent in the mid RCA. Patent stent in the LAD, mild coronary artery disease otherwise. - Cardiac catheterization done February [address] Franklin showing patent stents in the LAD with mild to moderate nonobstructive disease. Currently maintained on aspirin. Peripheral arterial disease, - Angiogram was done on September 15, 2020 showing total occlusion of the left anterior tibial artery with successful balloon angioplasty with multiple wires and balloons with excellent results. On the right side anterior tibial artery was atretic and very small. The ulcer on his foot is healed completely. - ISABELA was done on October 20, 2020 was on the right side 1.34 and left side 1.45. TBI on the right side was 0.5 and on the left side 0.61, good waveforms was noted Hypotension Hyperlipidemia Diabetes mellitus - followed and managed by primary care physician History of C-spine surgery done in November 2019. BMI 41 History of bipolar disorder. COPD/DAISY Plan: Complex management issue Acute resp failure requiring intubation d/t intolerance of Bi-pap A-fib/flutter with RVR - Amiodarone gtt started by eICU - Unable to tolerate BB d/t hypotension - Give IV Dig - continue OAC Acute on chronic systolic CHF - give IV Lasix Hypotension - requiring pressor support Hyperthyroidism - management per medical services Monitor lab - replace electrolytes as indicated Further recs will be based on his hospital course We have discussed with Dr. Rogers We have reviewed records from [facility] Rodriguez Jul 28, 2022 10:56
--- NOTE | 2022-07-28 10:59 | Anesthesia-Procedure Note ---
Procedures/Interventions Procedure Start/Stop/Diagnosis Date of Procedure: Jul 28, 2022 Start Time: 10:44 Stop Time: 10:50 Intubation RSI: Yes 100% pre-Ox, [id number]: Yes Videoscope used: Yes Grade View: 1 Medications: Etomidate, Succinylcholine Mask Ventilation: positive Positive End Tide CO2: Yes Breath Sounds after Intubation: bilateral-equal ETT Securred @ (cm): 24 Intubated with ease: Yes Intubation Complications: no complications YISSEL TORRES CRNA Jul 28, 2022 10:59
[2022-07-28] MEDS: PROPOFOL DRIP (ICU) 100 ML IV SCH ×2 (11:20→18:23)
--- NOTE | 2022-07-28 11:37 | Diagnostic Imaging Report ---
INDICATION: Respiratory failure. TECHNIQUE: AP view of the chest is obtained with comparison made to study of 07/27/2022. FINDINGS: Diffuse bilateral airspace disease has a stable overall appearance. There has been placement of endotracheal tube with tip at the level of the thoracic inlet. Nasogastric tube reaches the gastroesophageal junction. There is no pneumothorax or other adverse change. IMPRESSION: Stable bilateral pulmonary opacities post intubation. No complicating feature is seen. Dictated by: Dictated on workstation # [id number]
--- NOTE | 2022-07-28 12:12 | Progress Note - Cardiology ---
Cardiology SOAP Progress Note Subjective: Agitated, in resp distress Unable to provide any history or answer questions Objective: I&O/Vital Signs 07/28/22 07/28/22 07/28/22 07/28/22 01:00 01:00 02:00 02:28 Pulse 105 105 122 115 Resp 21 15 24 B/P (MAP) 104/58 (73) 99/56 (70) Pulse Ox 99 99 98 O2 Delivery NIV Bilevel NIV Bilevel O2 Flow Rate 35.00 35.00 35.00 07/28/22 07/28/22 07/28/22 07/28/22 03:00 03:36 04:00 04:00 Pulse 123 115 115 Resp 13 13 B/P (MAP) 96/59 (71) 99/56 95/56 (69) Pulse Ox 99 99 98 O2 Delivery NIV Bilevel NIV Bilevel NIV Bilevel O2 Flow Rate 35.00 35.00 FiO2 40 07/28/22 07/28/22 07/28/22 07/28/22 05:00 06:00 07:00 07:00 Pulse 133 104 116 103 Resp 14 12 18 B/P (MAP) 97/58 (71) 103/57 (72) 104/66 (79) Pulse Ox 99 97 98 O2 Delivery NIV Bilevel NIV Bilevel NIV Bilevel O2 Flow Rate 35.00 35.00 35.00 07/28/22 07/28/22 07/28/22 07/28/22 07:20 07:25 08:00 09:00 Pulse 133 152 140 118 Resp 29 28 25 27 B/P (MAP) 99/71 (80) 77/58 (64) Pulse Ox 98 98 97 94 O2 Delivery NIV Bilevel NIV Bilevel O2 Flow Rate 35.00 35.00 35.00 35.00 07/28/22 07/28/22 07/28/22 07/28/22 09:40 09:53 10:00 10:23 Pulse 152 137 152 Resp 32 33 B/P (MAP) 92/74 (80) 92/74 Pulse Ox 100 96 O2 Delivery NIV Bilevel NIV Bilevel O2 Flow Rate 45.00 35.00 45.00 07/28/22 07/28/22 07/28/22 11:04 11:19 11:20 Pulse 129 129 129 Resp 22 B/P (MAP) 89/57 89/57 Pulse Ox 94 FiO2 45 07/28/22 00:00 Intake Total 700 ml Output Total 2200 ml Balance -1500 ml Weight (Pounds): 255 Weight (Calculated Kilograms): 115.230329 Constitutional: apparent distress, well-nourished Respiratory: accessory muscle use, respiratory distress, chest expansion is symmetric, chest is bilaterally symmetric Cardiovascular: irregularly irregular, tachycardia, S1 and S2 Gastrointestional: round, audible bowel sounds Neurologic/Psychiatric: other (d/t resp distress unable to cooperate with neuro exam; moves all extremities) Skin: No rash on exposed areas, No ulcerations on exposed areas Results/Procedures: Labs Laboratory Tests 07/27/22 13:28: Lactic Acid Level 5.37*H 07/27/22 15:56: Lactic Acid Level 4.23*H 07/27/22 16:37: Glucometer 103 07/27/22 17:03: Bedside Blood Gas pH (LAB) 7.304*L, Bedside Blood Gas pCO2 (LAB) 51.3H, Bedside Blood Gas pO2 (LAB) 49L, Bedside Blood Gas HCO3 (LAB) 25.5, POC Blood Gas Total CO2 Calc 27, Bedside Bl Gas O2 Saturation (Calc) 80L, Bedside Arterial Blood Base Excess -1 07/27/22 17:06: White Blood Count 10.0, Red Blood Count 4.51, Hemoglobin 11.7L, Hematocrit 35L, Mean Corpuscular Volume 79L, Mean Corpuscular Hemoglobin 26, Mean Corpuscular Hemoglobin Concent 33, Red Cell Distribution Width 20.1H, Platelet Count 77L, Mean Platelet Volume 10.1, Immature Granulocyte % (Auto) 2, Neutrophils (%) (Auto) 89H, Lymphocytes (%) (Auto) 5L, Monocytes (%) (Auto) 5, Eosinophils (%) (Auto) 0, Basophils (%) (Auto) 0, Neutrophils # (Auto) 8.8H, Lymphocytes # (Auto) 0.5L, Monocytes # (Auto) 0.5, Eosinophils # (Auto) 0.0, Basophils # (Auto) 0.0, Immature Granulocyte # (Auto) 0.2H, Percent Immature Platelet Fraction 4.3, Sodium Level 135, Potassium Level 3.5L, Chloride Level 100, Carbon Dioxide Level 19L, Anion Gap 16H, Blood Urea Nitrogen 19H, Creatinine 0.63, Estimat Glomerular Filtration Rate 110, BUN/Creatinine Ratio 30, Glucose Level 110H, Lactic Acid Level 3.94*H, Calcium Level 8.0L, Corrected Calcium 9.1, Total Bilirubin 0.7, Aspartate Amino Transf (AST/SGOT) 122H, Alanine Aminotransferase (ALT/SGPT) 140H, Alkaline Phosphatase 133, B-Type Natriuretic Peptide 130.6H, Total Protein 4.7L, Albumin 2.6L 07/27/22 19:10: Lactic Acid Level 4.14*H 07/27/22 20:25: Sodium Level 138, Potassium Level 3.4L, Chloride Level 102, Carbon Dioxide Level 18L, Anion Gap 18H, Blood Urea Nitrogen 21H, Creatinine 0.73, Estimat Glomerular Filtration Rate 105, BUN/Creatinine Ratio 29, Glucose Level 100, Calcium Level 8.1L, Magnesium Level 1.4L 07/27/22 21:16: Bedside Blood Gas pH (LAB) 7.292*L, Bedside Blood Gas pCO2 (LAB) 43.7, Bedside Blood Gas pO2 (LAB) 43L, Bedside Blood Gas HCO3 (LAB) 21.1L, POC Blood Gas Total CO2 Calc 22L, Bedside Bl Gas O2 Saturation (Calc) 73L, Bedside Arterial Blood Base Excess -5L 07/27/22 21:58: Lactic Acid Level 8.69*H 07/27/22 22:28: Bedside Blood Gas pH (LAB) 7.292*L, Bedside Blood Gas pCO2 (LAB) 34.4L, Bedside Blood Gas pO2 (LAB) 130H, Bedside Blood Gas HCO3 (LAB) 16.6*L, POC Blood Gas Total CO2 Calc 18L, Bedside Bl Gas O2 Saturation (Calc) 99H, Bedside Arterial Blood Base Excess -10L 07/28/22 00:16: Glucometer 109 07/28/22 00:31: Lactic Acid Level 10.13*H 07/28/22 03:56: White Blood Count 12.8H, Red Blood Count 4.55, Hemoglobin 11.8L, Hematocrit 36L, Mean Corpuscular Volume 80, Mean Corpuscular Hemoglobin 26, Mean Corpuscular Hemoglobin Concent 33, Red Cell Distribution Width 20.4H, Platelet Count 80L, Mean Platelet Volume 9.8, Immature Granulocyte % (Auto) 3, Neutrophils (%) (Auto) 91H, Lymphocytes (%) (Auto) 2L, Monocytes (%) (Auto) 4, Eosinophils (%) (Auto) 0, Basophils (%) (Auto) 0, Neutrophils # (Auto) 11.6H, Lymphocytes # (Auto) 0.3L, Monocytes # (Auto) 0.5, Eosinophils # (Auto) 0.0, Basophils # (Auto) 0.0, Immature Granulocyte # (Auto) 0.4H, Percent Immature Platelet Fraction 3.6, Sodium Level 140, Potassium Level 3.8, Chloride Level 103, Carbon Dioxide Level 10L, Anion Gap 27H, Blood Urea Nitrogen 24H, Creatinine 0.81, Estimat Glomerular Filtration Rate 102, BUN/Creatinine Ratio 30, Glucose Level 99, Lactic Acid Level 12.08*H, Calcium Level 8.0L, Corrected Calcium 9.1, Phosphorus Level 3.3, Magnesium Level 1.9, Total Bilirubin 0.8, Direct Bilirubin 0.7H, Indirect Bilirubin 0.1, Aspartate Amino Transf (AST/SGOT) 134H, Alanine Aminotransferase (ALT/SGPT) 160H, Alkaline Phosphatase 140H, Troponin I 0.032H, Total Protein 5.0L, Albumin 2.6L 07/28/22 08:35: Lactic Acid Level 14.58*H 07/28/22 09:32: Blood Gas Puncture Site R WRIST, Blood Gas Patient Temperature 37.8, Arterial Blood pH 6.98*L, Arterial Blood Partial Pressure CO2 45, Arterial Blood Partial Pressure O2 48L, Arterial Blood HCO3 , Arterial Blood Total CO2 , Arterial Blood Oxygen Saturation 62L, Arterial Blood Base Excess , Balwinder Test YES-POS, Blood Gas Ventilator Setting NO, Blood Gas Inspired Oxygen 35% 07/28/22 11:25: Lactic Acid Level 15.09*H, Triglycerides Level 774H 07/28/22 11:28: Microbiology 07/25/22 Blood Culture - Preliminary, Resulted No growth 07/25/22 Urine Culture - Final, Complete Strep, Beta Hemolytic Group B Laboratory Tests 07/26/22 16:15 07/27/22 03:55 07/27/22 17:06 07/27/22 20:25 07/28/22 03:56 A/P: Assessment: Acute resp failure - requiring intubation; unable to tolerate Bi-pap Metabolic acidosis, lactic acidosis - Unknown underlying cause - Possible occult sepsis versus dehydration - Questionable underlying gastroenteritis. - Managed by primary care physician Sepsis - undetermined etiology - management per medical services/eICU Hyperthyroidism - management per medical services Elevated liver enzymes of undetermined etiology - possible secondary to hepato-biliary congestion d/t CHF Paroxysmal atrial fibrillation/flutter - currently with RVR - patient underwent atrial flutter ablation in May [address] Juarez. - He has been off oral anticoagulation as an outpatient. It was restarted on this admission Intermittent sinus tachycardia - patient had a short run of nonsustained ventricular tachycardia. - Amiodarone gtt Congestive heart failure - acute on chronic left ventricular systolic dysfunction Ischemic cardiomyopathy - ejection fraction 45 to 50% Sacral decubitus ulcer, managed by medical team. Coronary artery disease - history of multiple cardiac catheterization multiple interventions in the past, - Cardiac catheterization done in [facility] in November 2019 and reported that he did not require any stenting. - Cardiac catheterization done February 16, 2021 with severe stenosis in the prox right coronary artery with successful primary stenting using Marcia 3.5 x 18mm overlapping with an old stent in the mid RCA. Patent stent in the LAD, mild coronary artery disease otherwise. - Cardiac catheterization done February [address] Franklin showing patent stents in the LAD with mild to moderate nonobstructive disease. Currently maintained on aspirin. Peripheral arterial disease, - Angiogram was done on September 15, 2020 showing total occlusion of the left anterior tibial artery with successful balloon angioplasty with multiple wires and balloons with excellent results. On the right side anterior tibial artery was atretic and very small. The ulcer on his foot is healed completely. - ISABELA was done on October 20, 2020 was on the right side 1.34 and left side 1.45. TBI on the right side was 0.5 and on the left side 0.61, good waveforms was noted Hypotension Hyperlipidemia Diabetes mellitus - followed and managed by primary care physician History of C-spine surgery done in November 2019. BMI 41 History of bipolar disorder. COPD/DAISY Plan: * Complex management issue * Advise [facility] vent. This is likely to improve heart rate * Continue amio * Use dig, if needed * Not suitable for bb or Ca maximo at this time (low bp) * Use diuretics as needed and as tolerated * Continue bp support * Monitor labs * Discussed in detail with MARIA E Muro MD FAC FAC CCDS Jul 28, 2022 12:12
[2022-07-28] MEDS: NOREPINEPHRINE 8 MG/250 ML 250 ML IV SCH ×8 (12:13→22:52)
[2022-07-28] MEDS ORDERED: NS IV 1000 ML 1,000 ML ONE (13:43)
[2022-07-28] MEDS ORDERED: HYDROCORTISONE 100 MG/2 ML (Solu-CORTEF) VIAL IV SCH (14:00)
--- NOTE | 2022-07-28 14:22 | Anesthesia-Procedure Note ---
Procedures/Interventions Procedure Start/Stop/Diagnosis Date of Procedure: Jul 31, 2022 Start Time: 14:00 Stop Time: 14:15 Arterial Line Arterial Line Catheter: 22G Type: Radial Location: Left Procedure: prepped, draped in sterile fashion, good wave-form was obtained, patient tolerated procedure well, no immediate complications, post procedure area cleaned, post procedure dressing applied YISSEL TORRES CRNA Jul 28, 2022 14:22
[2022-07-28] MEDS: PHENYLEPHRINE DRIP 250 ML IV SCH ×5 (14:50→21:42)
[2022-07-28] MEDS ORDERED: DEXTROSE 50% 50 ML (IMS) SYR ONE ×2 (15:08→18:16)
[2022-07-28] MEDS ORDERED: DEXTROSE 50% 50 ML (IMS) SYR IV ONE (15:15)
[2022-07-28] MEDS ORDERED: FUROSEMIDE 40 MG/4 ML INJ (LASIX) IVP SCH (17:00)
[2022-07-28 17:44] LABS: ABG BASE EXCESS -16.9 MMOL/L (-2.5-2.5); ABG OXYGEN SATURATION 90 % (94-100); ABG PCO2 61 MMHG (35-45); ABG PO2 76 MMHG (79-93); ABG TCO2 14.6 MMOL/L (21.0-31.0)
[2022-07-28 17:48] LABS: ABG PH 6.96 (7.37-7.43)
[2022-07-28 17:49] LABS: ALLENS TEST Y; PATIENT TEMP 100; VENTILATOR NO
[2022-07-28] MEDS ORDERED: APAP 325 MG/10.15 ML LIQ (TYLENOL) UDC PO PRN (18:00)
[2022-07-28] MEDS ORDERED: SODIUM BICARB 8.4% 50 MEQ/50 ML (ABBOTT) SYR IV NR (18:00)
[2022-07-28] MEDS ORDERED: APAP 325 MG/10.15 ML LIQ (TYLENOL) UDC ONE (18:02)
[2022-07-28] MEDS: ENOXAPARIN 40 MG/0.4 ML (LOVENOX) SYR SC SCH (18:23)
[2022-07-28] MEDS ORDERED: ETOMIDATE IV SOLN 20 MG/10 ML VIAL IV ONE (18:46)
[2022-07-28] MEDS ORDERED: SUCCINYLCHOLINE INJ 100 MG/5 ML SYR/VIAL INJ ONE (18:46)
[2022-07-28] MEDS: DEXTROSE 50% 50 ML (IMS) SYR IV NR ×2 (19:27→20:41)
[2022-07-28] MEDS ORDERED: EPINEPHrine 1 MG INJECTION 8 MG in NS (IVPB) 242 ML IV SCH (19:45)
[2022-07-28] MEDS ORDERED: DEXTROSE 10% IV SOLUTION 1,000 ML IV SCH (19:45)
[2022-07-28] MEDS ORDERED: EPINEPHrine (PYXIS DRIP KIT ONLY) 1 MG/ML X 4 AMPS ONE ×2 (19:52→22:29)
[2022-07-28] MEDS ORDERED: NS (IVPB) 250 ML ONE ×2 (19:53→22:30)
[2022-07-28] MEDS ORDERED: DEXTROSE 10% IV SOLUTION 1,000 ML IV ONE (20:32)
--- NOTE | 2022-07-28 23:29 | Tele-ICU Progress Note ---
Progress Note called by bedside air conditioning technician wished to make patient DNR and terminally extubate Focused Exam Lactate Level 07/28/22 11:25: Lactic Acid Level 15.09*H 07/28/22 15:30: Lactic Acid Level 12.78*H 07/28/22 20:29: Lactic Acid Level 13.02*H Height, Weight, BMI Height: 5'8.00" Weight: 255lbs. oz. 115.496388cy; 32.13 BMI Method:Stated Lactic Acid Level Laboratory Tests Test 07/28/22 20:29 Lactic Acid Level 13.02 MMOL/L (0.50-2.00) *H MELANIE JONES MD Jul 28, 2022 23:29
[2022-07-29] MEDS ORDERED: TROUGH ORDER-PHARMACY XX NR (06:00)
== END 2022-07-29 02:10 | disposition expired | DRG 871 ==
LOC: EDUNIT# 11:25 → ER FS 11:28 → CSD 16:30 → ICU 07-27 17:16
PROVIDERS: ADMIT Family Medicine; ATTEND Internal Medicine
PROC: 02HV33Z Insertion of Infusion Device into Superior Vena Cava, Percutaneous Approach (ICD-10-PCS; principal; 2022-07-27)
PROC: 03HY32Z Insertion of Monitoring Device into Upper Artery, Percutaneous Approach (ICD-10-PCS; 2022-07-27)
PROC: 5A09357 Assistance with Respiratory Ventilation, Less than 24 Consecutive Hours, Continuous Positive Airway Pressure (ICD-10-PCS; 2022-07-27)
PROC: 5A1935Z Respiratory Ventilation, Less than 24 Consecutive Hours (ICD-10-PCS; 2022-07-28)
PROC: 0BH17EZ Insertion of Endotracheal Airway into Trachea, Via Natural or Artificial Opening (ICD-10-PCS; 2022-07-28)
DX: A41.9 Sepsis, unspecified organism (principal); L89.153 Pressure ulcer of sacral region, stage 3; J96.00 Acute respiratory failure, unspecified whether with hypoxia or hypercapnia; R65.21 Severe sepsis with septic shock; I50.23 Acute on chronic systolic (congestive) heart failure; N39.0 Urinary tract infection, site not specified; E87.2 Acidosis; J44.1 Chronic obstructive pulmonary disease with (acute) exacerbation; E87.8 Other disorders of electrolyte and fluid balance, not elsewhere classified; E87.6 Hypokalemia; E86.0 Dehydration; G89.29 Other chronic pain; J44.9 Chronic obstructive pulmonary disease, unspecified; I25.10 Atherosclerotic heart disease of native coronary artery without angina pectoris; F41.9 Anxiety disorder, unspecified; Z20.822 Contact with and (suspected) exposure to COVID-19; I25.5 Ischemic cardiomyopathy; Z66 Do not resuscitate; F31.9 Bipolar disorder, unspecified; Z87.891 Personal history of nicotine dependence; F12.90 Cannabis use, unspecified, uncomplicated; I25.2 Old myocardial infarction; M06.9 Rheumatoid arthritis, unspecified; R13.10 Dysphagia, unspecified; E05.90 Thyrotoxicosis, unspecified without thyrotoxic crisis or storm; I87.2 Venous insufficiency (chronic) (peripheral); Z79.82 Long term (current) use of aspirin; Z79.84 Long term (current) use of oral hypoglycemic drugs; Z79.899 Other long term (current) drug therapy; Z95.5 Presence of coronary angioplasty implant and graft; I48.0 Paroxysmal atrial fibrillation; E11.51 Type 2 diabetes mellitus with diabetic peripheral angiopathy without gangrene; I95.9 Hypotension, unspecified; G47.33 Obstructive sleep apnea (adult) (pediatric)
CPT/HCPCS: 36415; 71045; 76705; 80048; 80053; 80074; 80076; 81000; 82248; 82533; 82805; 82947; 83520; 83605; 83690; 83735; 83880; 84100; 84132; 84439; 84443; 84478; 84480; 84484; 85007; 85025; 85027; 85045; 85055; 85379; 85384; 85610; 85730; 86141; 87040; 87070; 87088; 87205; 87636; 93005; 93041; 93306; 94002; 94640; 94660; 94799